=== PATIENT | male | born 1950 | race Caucasian/White ===

== ENCOUNTER 2022-09-07 16:33 | Outpatient (OUT) | payer MEDICARE, OTHER, SELFPAY ==
[2022-09-07 17:16] LABS: Hemoglobin 8.1 g/dL (14.0-18.0)
[2022-09-07 17:24] LABS: Creatinine Urine Random 58.97 mg/dL (20.00-300.00); Total Protein Urine Random 293.7 mg/dL (<=11.9)
[2022-09-07 17:59] LABS: Bilirubin Urine NEGATIVE (NEGATIVE); Blood Urine MODERATE (NEGATIVE); Clarity Urine CLEAR (CLEAR); Color Urine LT. YELLOW (YELLOW); Glucose Urine UA NEGATIVE (NEGATIVE); Ketones Urine NEGATIVE (NEGATIVE); Leukocyte Esterase Urine NEGATIVE (NEGATIVE); Nitrite Urine NEGATIVE (NEGATIVE); Protein Urine >=300 mg/dL (NEG/TRACE); Specific Gravity Urine 1.015 (1.005-1.025); Urobilinogen Urine 0.2 EU/dL (0.2-1.0); pH Urine 5.5 (5.0-9.0)
[2022-09-07 18:40] LABS: Percent Iron Saturation 22.4 %
[2022-09-07 19:27] LABS: Alanine Aminotransferase 25 U/L (16-63); Albumin Globulin Ratio 0.9; Albumin Level 2.9 g/dL (3.4-5.0); Alkaline Phosphatase 109 U/L (46-116); Anion Gap 13.1; Aspartate Amino Transferase 21 U/L (15-37); BUN Creatinine Ratio 19.5; Bilirubin Total 0.4 mg/dL (0.2-1.0); Carbon Dioxide 23.5 mmol/L (21.0-32.0); Chloride 108 mmol/L (98-107); Estimated GFR (African America 36 (>=60); Estimated GFR (Non-African Ame 29 (>=60); Globulin 3.1 g/dL; Glucose 74 mg/dL (74-106); Magnesium 1.8 mg/dL (1.8-2.4); Phosphorus 4.2 mg/dL (2.6-4.7); Potassium 4.6 mmol/L (3.5-5.1); Sodium 140 mmol/L (136-145); Uric Acid 6.3 mg/dL (3.5-7.2)
[2022-09-10 13:07] LABS: PTH, Intact 60 pg/mL (15-65)
== END 2022-09-07 16:34 ==
LOC: LAB 16:34
PROVIDERS: PCP Family Medicine; Visit Provider Internal Medicine Nephrology
DX: N18.32 Chronic kidney disease, stage 3b (principal); I12.9 Hypertensive chronic kidney disease with stage 1 through stage 4 chronic kidney disease, or unspecified chronic kidney disease; E11.22 Type 2 diabetes mellitus with diabetic chronic kidney disease; D63.1 Anemia in chronic kidney disease; E87.5 Hyperkalemia; E63.1 Imbalance of constituents of food intake; N25.81 Secondary hyperparathyroidism of renal origin; R80.9 Proteinuria, unspecified; R31.29 Other microscopic hematuria; E83.42 Hypomagnesemia
CPT/HCPCS: 36415; 80053; 81003; 82306; 82570; 82607; 82728; 82746; 83540; 83550; 83735; 83970; 84100; 84156; 84550; 85014; 85018

== ENCOUNTER 2022-09-28 16:00 | Outpatient (OUT) | payer MEDICARE, OTHER, SELFPAY ==
[2022-09-28 16:21] LABS: Hemoglobin 8.4 g/dL (14.0-18.0); Mean Corpuscular HGB Conc 33.6 g/dL (29.9-35.2); Mean Corpuscular Volume 92.3 fL (80.0-94.0); Mean Platelet Volume 8.5 fL (9.5-13.5); Platelet Count 215 10^3/uL (150-450); Red Blood Count 2.71 10^6/uL (4.70-6.10); Red Cell Distribution Width 14.3 % (11.0-15.0); White Blood Count 5.5 10^3/uL (4.0-11.0)
[2022-09-28 16:45] LABS: Albumin Level 2.9 g/dL (3.4-5.0); Anion Gap 11.7; BUN Creatinine Ratio 15.9; Calcium 8.4 mg/dL (8.5-10.1); Carbon Dioxide 26.2 mmol/L (21.0-32.0); Chloride 106 mmol/L (98-107); Estimated GFR (African America 32 (>=60); Estimated GFR (Non-African Ame 26 (>=60); Glucose 118 mg/dL (74-106); Magnesium 1.8 mg/dL (1.8-2.4); Phosphorus 4.6 mg/dL (2.6-4.7); Potassium 4.9 mmol/L (3.5-5.1); Sodium 139 mmol/L (136-145)
== END 2022-09-28 16:01 | disposition home or self-care (01) ==
LOC: LAB 10-02 12:41
PROVIDERS: PCP Family Medicine; Visit Provider Internal Medicine
DX: I12.9 Hypertensive chronic kidney disease with stage 1 through stage 4 chronic kidney disease, or unspecified chronic kidney disease (principal); N18.32 Chronic kidney disease, stage 3b; E11.22 Type 2 diabetes mellitus with diabetic chronic kidney disease; D63.1 Anemia in chronic kidney disease; E87.5 Hyperkalemia; N25.81 Secondary hyperparathyroidism of renal origin; R80.9 Proteinuria, unspecified; R31.29 Other microscopic hematuria; E83.42 Hypomagnesemia
CPT/HCPCS: 36415; 80069; 83735; 85027

== ENCOUNTER 2022-10-23 09:25 | Outpatient (OUT) | payer MEDICARE, OTHER, SELFPAY ==
[2022-10-23 09:49] LABS: Hematocrit 25.3 % (42.0-54.0); Hemoglobin 8.6 g/dL (14.0-18.0)
[2022-10-23 12:03] LABS: Albumin Level 3.4 g/dL (3.4-5.0); Anion Gap 14.8; BUN Creatinine Ratio 18.8; Calcium 8.7 mg/dL (8.5-10.1); Carbon Dioxide 23.1 mmol/L (21.0-32.0); Chloride 107 mmol/L (98-107); Estimated GFR (African America 35 (>=60); Estimated GFR (Non-African Ame 29 (>=60); Glucose 104 mg/dL (74-106); Magnesium 1.8 mg/dL (1.8-2.4); Phosphorus 4.7 mg/dL (2.6-4.7); Potassium 4.9 mmol/L (3.5-5.1); Sodium 140 mmol/L (136-145)
[2022-10-23 12:04] LABS: Percent Iron Saturation 23.6 %
== END 2022-10-23 09:26 | disposition home or self-care (01) ==
LOC: LAB 09:26
PROVIDERS: PCP Family Medicine; Visit Provider Internal Medicine
DX: I12.9 Hypertensive chronic kidney disease with stage 1 through stage 4 chronic kidney disease, or unspecified chronic kidney disease (principal); N18.32 Chronic kidney disease, stage 3b; E11.22 Type 2 diabetes mellitus with diabetic chronic kidney disease; D63.1 Anemia in chronic kidney disease; E87.5 Hyperkalemia; N25.81 Secondary hyperparathyroidism of renal origin; R80.9 Proteinuria, unspecified; R31.29 Other microscopic hematuria; E83.42 Hypomagnesemia
CPT/HCPCS: 36415; 80069; 82728; 83540; 83550; 83735; 85014; 85018

== ENCOUNTER 2022-10-30 09:28 | Outpatient (OUT) | payer MEDICARE, OTHER, SELFPAY ==
[2022-10-30 11:06] LABS: Alanine Aminotransferase 17 U/L (16-63); Albumin Globulin Ratio 0.9; Albumin Level 3.1 g/dL (3.4-5.0); Alkaline Phosphatase 134 U/L (46-116); Anion Gap 16.9; Aspartate Amino Transferase 19 U/L (15-37); BUN Creatinine Ratio 16.7; Bilirubin Total 0.4 mg/dL (0.2-1.0); Calcium 8.6 mg/dL (8.5-10.1); Carbon Dioxide 23.2 mmol/L (21.0-32.0); Chloride 106 mmol/L (98-107); Chol HDL Ratio 2.8; Cholesterol 92 mg/dL (<=200); Estimated GFR (African America 33 (>=60); Estimated GFR (Non-African Ame 28 (>=60); Globulin 3.6 g/dL; Glucose 91 mg/dL (74-106); HDL Cholesterol 33 mg/dL (40-60); Potassium 5.1 mmol/L (3.5-5.1); Sodium 141 mmol/L (136-145); Total Protein 6.7 g/dL (6.4-8.2); Triglycerides 75 mg/dL (<=150)
== END 2022-10-30 09:29 | disposition home or self-care (01) ==
LOC: LAB 09:28
PROVIDERS: PCP Family Medicine; Visit Provider Family Medicine
DX: I13.0 Hypertensive heart and chronic kidney disease with heart failure and stage 1 through stage 4 chronic kidney disease, or unspecified chronic kidney disease (principal); E11.22 Type 2 diabetes mellitus with diabetic chronic kidney disease; E78.2 Mixed hyperlipidemia
CPT/HCPCS: 36415; 80053; 80061; 83036

== ENCOUNTER 2022-11-13 13:54 | Outpatient (OUT) | payer MEDICARE, OTHER, SELFPAY ==
[2022-11-13 14:16] LABS: Hematocrit 24.1 % (42.0-54.0); Hemoglobin 8.2 g/dL (14.0-18.0); Mean Corpuscular Hemoglobin 30.6 pg (25.9-34.0); Mean Corpuscular Volume 89.9 fL (80.0-94.0); Mean Platelet Volume 8.8 fL (9.5-13.5); Platelet Count 210 10^3/uL (150-450); Red Blood Count 2.68 10^6/uL (4.70-6.10); Red Cell Distribution Width 13.7 % (11.0-15.0); White Blood Count 6.9 10^3/uL (4.0-11.0)
[2022-11-13 14:31] LABS: Albumin Level 3.4 g/dL (3.4-5.0); Anion Gap 13.2; BUN Creatinine Ratio 16.3; Calcium 8.2 mg/dL (8.5-10.1); Chloride 103 mmol/L (98-107); Estimated GFR (African America 28 (>=60); Estimated GFR (Non-African Ame 23 (>=60); Glucose 158 mg/dL (74-106); Phosphorus 5.1 mg/dL (2.6-4.7); Potassium 5.2 mmol/L (3.5-5.1); Sodium 136 mmol/L (136-145)
[2022-11-14 13:08] LABS: PTH, Intact 50 pg/mL (15-65)
== END 2022-11-13 13:55 | disposition home or self-care (01) ==
LOC: LAB 13:54
PROVIDERS: PCP Family Medicine; Visit Provider Internal Medicine
DX: E11.22 Type 2 diabetes mellitus with diabetic chronic kidney disease (principal); N18.4 Chronic kidney disease, stage 4 (severe); D63.1 Anemia in chronic kidney disease; I12.9 Hypertensive chronic kidney disease with stage 1 through stage 4 chronic kidney disease, or unspecified chronic kidney disease; E87.5 Hyperkalemia; N25.81 Secondary hyperparathyroidism of renal origin; R80.9 Proteinuria, unspecified; R31.29 Other microscopic hematuria; E83.42 Hypomagnesemia
CPT/HCPCS: 36415; 80069; 82306; 82607; 82746; 83735; 83970; 85027

== ENCOUNTER 2022-12-04 09:21 | Outpatient (OUT) | payer MEDICARE, OTHER, SELFPAY ==
[2022-12-04 09:41] LABS: Hematocrit 25.3 % (42.0-54.0); Hemoglobin 8.4 g/dL (14.0-18.0)
[2022-12-04 10:01] LABS: Albumin Level 3.3 g/dL (3.4-5.0); Anion Gap 13.6; Calcium 8.2 mg/dL (8.5-10.1); Carbon Dioxide 23.7 mmol/L (21.0-32.0); Chloride 107 mmol/L (98-107); Estimated GFR (African America 25 (>=60); Estimated GFR (Non-African Ame 21 (>=60); Glucose 76 mg/dL (74-106); Phosphorus 5.7 mg/dL (2.6-4.7); Potassium 5.3 mmol/L (3.5-5.1); Sodium 139 mmol/L (136-145)
== END 2022-12-04 09:22 | disposition home or self-care (01) ==
LOC: LAB 09:22
PROVIDERS: PCP Family Medicine; Visit Provider Internal Medicine
DX: N18.4 Chronic kidney disease, stage 4 (severe) (principal)
CPT/HCPCS: 36415; 80069; 85014; 85018

== ENCOUNTER 2022-12-21 09:41 | Outpatient (OUT) | payer MEDICARE, OTHER, SELFPAY ==
[2022-12-21 10:00] LABS: Hematocrit 27.4 % (42.0-54.0); Hemoglobin 9.1 g/dL (14.0-18.0); Mean Corpuscular HGB Conc 33.2 g/dL (29.9-35.2); Mean Corpuscular Hemoglobin 30.8 pg (25.9-34.0); Mean Corpuscular Volume 92.9 fL (80.0-94.0); Mean Platelet Volume 8.9 fL (9.5-13.5); Platelet Count 156 10^3/uL (150-450); Red Blood Count 2.95 10^6/uL (4.70-6.10); Red Cell Distribution Width 13.4 % (11.0-15.0); White Blood Count 6.3 10^3/uL (4.0-11.0)
[2022-12-21 11:00] LABS: Albumin Level 3.4 g/dL (3.4-5.0); Anion Gap 16.9; BUN Creatinine Ratio 21.4; Calcium 8.3 mg/dL (8.5-10.1); Carbon Dioxide 20.6 mmol/L (21.0-32.0); Chloride 111 mmol/L (98-107); Estimated GFR (African America 29 (>=60); Estimated GFR (Non-African Ame 24 (>=60); Glucose 84 mg/dL (74-106); Phosphorus 5.9 mg/dL (2.6-4.7); Potassium 5.5 mmol/L (3.5-5.1); Sodium 143 mmol/L (136-145)
[2022-12-22 07:08] LABS: Vitamin D, 25-Hydroxy 53.8 ng/mL (30.0-100.0)
[2022-12-22 11:08] LABS: PTH, Intact 34 pg/mL (15-65)
== END 2022-12-21 09:42 | disposition home or self-care (01) ==
LOC: LAB 09:41
PROVIDERS: PCP Family Medicine; Visit Provider Internal Medicine
DX: I12.9 Hypertensive chronic kidney disease with stage 1 through stage 4 chronic kidney disease, or unspecified chronic kidney disease (principal); N18.4 Chronic kidney disease, stage 4 (severe); D63.1 Anemia in chronic kidney disease; E11.22 Type 2 diabetes mellitus with diabetic chronic kidney disease; E87.5 Hyperkalemia; N25.81 Secondary hyperparathyroidism of renal origin; R80.9 Proteinuria, unspecified; R31.29 Other microscopic hematuria; E83.42 Hypomagnesemia
CPT/HCPCS: 36415; 80069; 82306; 83970; 85027

== ENCOUNTER 2023-01-16 09:17 | Outpatient (OUT) | payer MEDICARE, OTHER, SELFPAY ==
[2023-01-16 09:38] LABS: Hematocrit 27.3 % (42.0-54.0); Hemoglobin 8.9 g/dL (14.0-18.0); Mean Corpuscular HGB Conc 32.6 g/dL (29.9-35.2); Mean Corpuscular Hemoglobin 29.4 pg (25.9-34.0); Mean Corpuscular Volume 90.1 fL (80.0-94.0); Platelet Count 171 10^3/uL (150-450); Red Blood Count 3.03 10^6/uL (4.70-6.10); Red Cell Distribution Width 13.2 % (11.0-15.0); White Blood Count 10.5 10^3/uL (4.0-11.0)
[2023-01-16 09:54] LABS: Albumin Level 3.5 g/dL (3.4-5.0); Anion Gap 17.7; BUN Creatinine Ratio 24.4; Calcium 8.5 mg/dL (8.5-10.1); Carbon Dioxide 21.2 mmol/L (21.0-32.0); Chloride 106 mmol/L (98-107); Estimated GFR (African America 26 (>=60); Estimated GFR (Non-African Ame 21 (>=60); Glucose 174 mg/dL (74-106); Magnesium 1.9 mg/dL (1.8-2.4); Phosphorus 4.4 mg/dL (2.6-4.7); Potassium 4.9 mmol/L (3.5-5.1); Sodium 140 mmol/L (136-145)
== END 2023-01-16 09:18 | disposition home or self-care (01) ==
LOC: LAB 09:17
PROVIDERS: PCP Family Medicine; Visit Provider Internal Medicine
DX: E11.22 Type 2 diabetes mellitus with diabetic chronic kidney disease (principal); N18.4 Chronic kidney disease, stage 4 (severe); D63.1 Anemia in chronic kidney disease; I12.9 Hypertensive chronic kidney disease with stage 1 through stage 4 chronic kidney disease, or unspecified chronic kidney disease; E87.5 Hyperkalemia; N25.81 Secondary hyperparathyroidism of renal origin; R80.9 Proteinuria, unspecified; R31.29 Other microscopic hematuria; E83.42 Hypomagnesemia
CPT/HCPCS: 36415; 80069; 83735; 85027

== ENCOUNTER 2023-01-25 09:28 | Outpatient (OUT) | payer MEDICARE, OTHER, SELFPAY ==
[2023-01-25 10:01] LABS: Hematocrit 29.1 % (42.0-54.0); Hemoglobin 9.9 g/dL (14.0-18.0); Mean Corpuscular Hemoglobin 30.3 pg (25.9-34.0); Mean Platelet Volume 8.9 fL (9.5-13.5); Platelet Count 187 10^3/uL (150-450); Red Blood Count 3.27 10^6/uL (4.70-6.10); Red Cell Distribution Width 14.4 % (11.0-15.0); White Blood Count 8.3 10^3/uL (4.0-11.0)
== END 2023-01-25 09:29 | disposition home or self-care (01) ==
LOC: LAB 09:28
PROVIDERS: PCP Family Medicine; Visit Provider Internal Medicine
DX: N18.4 Chronic kidney disease, stage 4 (severe) (principal)
CPT/HCPCS: 36415; 85027

== ENCOUNTER 2023-02-11 09:19 | Outpatient (OUT) | payer MEDICARE, OTHER, SELFPAY ==
[2023-02-11 09:35] LABS: Hematocrit 33.9 % (42.0-54.0); Hemoglobin 11.2 g/dL (14.0-18.0); Mean Corpuscular Hemoglobin 29.7 pg (25.9-34.0); Mean Corpuscular Volume 89.9 fL (80.0-94.0); Mean Platelet Volume 8.3 fL (9.5-13.5); Platelet Count 187 10^3/uL (150-450); Red Blood Count 3.77 10^6/uL (4.70-6.10); White Blood Count 7.2 10^3/uL (4.0-11.0)
[2023-02-11 10:03] LABS: Albumin Level 3.2 g/dL (3.4-5.0); Anion Gap 11.5; BUN Creatinine Ratio 23.5; Calcium 8.3 mg/dL (8.5-10.1); Carbon Dioxide 28.2 mmol/L (21.0-32.0); Chloride 102 mmol/L (98-107); Estimated GFR (African America 28 (>=60); Estimated GFR (Non-African Ame 23 (>=60); Glucose 88 mg/dL (74-106); Phosphorus 4.5 mg/dL (2.6-4.7); Potassium 4.7 mmol/L (3.5-5.1); Sodium 137 mmol/L (136-145)
[2023-02-11 10:35] LABS: Percent Iron Saturation 21.8 %
== END 2023-02-11 09:20 | disposition home or self-care (01) ==
LOC: LAB 09:20
PROVIDERS: PCP Family Medicine; Visit Provider Internal Medicine
DX: I12.9 Hypertensive chronic kidney disease with stage 1 through stage 4 chronic kidney disease, or unspecified chronic kidney disease (principal); N18.4 Chronic kidney disease, stage 4 (severe); D63.1 Anemia in chronic kidney disease; E11.22 Type 2 diabetes mellitus with diabetic chronic kidney disease; E87.5 Hyperkalemia; N25.81 Secondary hyperparathyroidism of renal origin; R80.9 Proteinuria, unspecified; R31.29 Other microscopic hematuria; E83.42 Hypomagnesemia
CPT/HCPCS: 36415; 80069; 82728; 83540; 83550; 83735; 85027

== ENCOUNTER 2023-02-22 09:53 | Outpatient (OUT) | payer MEDICARE, OTHER, SELFPAY ==
[2023-02-22 10:09] LABS: Hematocrit 29.7 % (42.0-54.0); Hemoglobin 10.1 g/dL (14.0-18.0); Mean Corpuscular Hemoglobin 30.3 pg (25.9-34.0); Mean Corpuscular Volume 89.2 fL (80.0-94.0); Mean Platelet Volume 8.5 fL (9.5-13.5); Platelet Count 196 10^3/uL (150-450); Red Blood Count 3.33 10^6/uL (4.70-6.10); Red Cell Distribution Width 13.8 % (11.0-15.0); White Blood Count 6.7 10^3/uL (4.0-11.0)
== END 2023-02-22 09:54 | disposition home or self-care (01) ==
PROVIDERS: PCP Family Medicine; Visit Provider Internal Medicine
DX: D63.1 Anemia in chronic kidney disease (principal)
CPT/HCPCS: 36415; 85027

== ENCOUNTER 2023-03-23 09:41 | Outpatient (OUT) | payer MEDICARE, OTHER, SELFPAY ==
[2023-03-23 09:56] LABS: Hematocrit 28.9 % (42.0-54.0); Hemoglobin 9.4 g/dL (14.0-18.0); Mean Corpuscular HGB Conc 32.5 g/dL (29.9-35.2); Mean Corpuscular Hemoglobin 30.5 pg (25.9-34.0); Mean Corpuscular Volume 93.8 fL (80.0-94.0); Mean Platelet Volume 8.8 fL (9.5-13.5); Platelet Count 171 10^3/uL (150-450); Red Blood Count 3.08 10^6/uL (4.70-6.10); Red Cell Distribution Width 14.4 % (11.0-15.0); White Blood Count 7.2 10^3/uL (4.0-11.0)
[2023-03-23 10:24] LABS: Percent Iron Saturation 31.3 %
[2023-03-23 10:25] LABS: Albumin Level 3.3 g/dL (3.4-5.0); Anion Gap 14.3; BUN Creatinine Ratio 19.8; Calcium 8.3 mg/dL (8.5-10.1); Carbon Dioxide 27.5 mmol/L (21.0-32.0); Chloride 106 mmol/L (98-107); Estimated GFR (African America 30 (>=60); Estimated GFR (Non-African Ame 25 (>=60); Glucose 101 mg/dL (74-106); Phosphorus 4.4 mg/dL (2.6-4.7); Potassium 4.8 mmol/L (3.5-5.1); Sodium 143 mmol/L (136-145)
== END 2023-03-23 09:42 | disposition home or self-care (01) ==
LOC: LAB 09:42
PROVIDERS: PCP Family Medicine; Visit Provider Internal Medicine
DX: N18.4 Chronic kidney disease, stage 4 (severe) (principal); D63.1 Anemia in chronic kidney disease
CPT/HCPCS: 36415; 80069; 82728; 83540; 83550; 85027

== ENCOUNTER 2023-04-15 10:40 | Outpatient (OUT) | payer MEDICARE, OTHER, SELFPAY ==
[2023-04-15 10:55] LABS: Hematocrit 30.5 % (42.0-54.0); Hemoglobin 10.2 g/dL (14.0-18.0); Mean Corpuscular HGB Conc 33.4 g/dL (29.9-35.2); Mean Corpuscular Hemoglobin 31.5 pg (25.9-34.0); Mean Corpuscular Volume 94.1 fL (80.0-94.0); Mean Platelet Volume 8.7 fL (9.5-13.5); Platelet Count 171 10^3/uL (150-450); Red Blood Count 3.24 10^6/uL (4.70-6.10); Red Cell Distribution Width 14.4 % (11.0-15.0); White Blood Count 9.2 10^3/uL (4.0-11.0)
--- OUTSIDE RECORDS SUMMARY | 2023-04-15 10:55 | XMS_ITS | CCD ---
Author Name Unknown Address [address] [place] [address] Organization [facility] Care Team Providers Care Patient Service Technician Pst Name Role Phone UNKNOWN, PROVIDER Admitting Unavailable UNKNOWN, PROVIDER Attending Unavailable RUBEN LUO Referring Unavailable RUBEN LUO Primary Care Unavailable GABY ORTIZ Admitting Unavailable GABY ORTIZ Attending Unavailable RUBEN LUO Primary Care Unavailable OTILIA SANCHEZ Referring Unavailable NE Procedure Practitioner Unavailab le UNKNOWN, PROVIDER Surgeon Unavailable Ruben Luo MD Primary Care Provider [phone] Ney Roman Unavailable Oma Sewell Unavailable Orlando Beaver Unavailable MD Ruben Luo Primary Care Provider MD Orlando Beaver Attending Provider Ruben Luo MD Primary Care Provider Ruben Luo MD Primary Care Provider RUBEN LUO Primary Care Unavailable DYAN, OLUREMI A Consulting Unavailable RUBEN LUO Primary Care Unavailable UDO-INYANG, INYANG Admitting Unavailable UDO-INYANG, INYANG Attending Unavailable Mckay Motleyiz Unavailable OMA SEWELL Attending Unavailable DONATOAUGUSTOUL Admitting Unavailable HEMEDOUGIE ., DR WILCOX Primary Care Unavailable OMA SEWELL Consulting Unavailable NIRALIYER ., DR WILCOX Primary Care Unavailable HEMEYER ., DR WILCOX Attending Unavailable HEMEYER ., DR WILCOX Admitting Unavailable HEMEYER ., DR WILCOX Consulting Unavailable HEMEYER ., DR WILCOX Primary Care Unavailable HEMEYER ., DR WILCOX Attending Unavailable HEMEYER ., DR WILCOX Admitting Unavailable HEMEYER ., DR WILCOX Primary Care Unavailable DONATO, OMA Attending Unavailable DONATO, OMA Admitting Unavailable DONAOT, OMA Consulting Unavailable HEMEYER ., DR WILCOX Consulting Unavailable HEMEYER ., DR WILCOX Attending Unavailable HEMEYER ., DR WILCOX Admitting Unavailable HEMEYER ., DR WILCOX Primary Care Unavailable HEMEYER ., DR WILCOX Consulting Unavailable HEMEYER ., DR WILCOX Attending Unavailable HEMEYER ., DR WILCOX Primary Care Unavailable HEMEYER ., DR WILCOX Admitting Unavailable DONATO, OMA Attending Unavailable DONATO, OMA Admitting Unavailable HEMEYER ., DR WILCOX Primary Care Unavailable MOUKARBEL, DR FIERRO Consulting Unavailable DONATO, OMA Consulting Unavailable DONATO, OMA Consulting Unavailable HEMEYER ., DR WILCOX Primary Care Unavailable DONATO, OMA Admitting Unavailable DONATO, OMA Attending Unavailable HEMEYER ., DR WILCOX Primary Care Unavailable ZIEBER, DR MEMO Hanna Consulting Unavailable DONATO, OMA Attending Unavailable DONATO, OMA Admitting Unavailable DONATO, OMA Consulting Unavailable HEMEYER ., DR WILCOX Primary Care Unavailable HEMEYER ., DR WILCOX Consulting Unavailable HEMEYER ., DR WILCOX Attending Unavailable HEMEYER ., DR WILCOX Admitting Unavailable DONATO, OMA Consulting Unavailable DONATO, OMA Attending Unavailable DONATO, OMA Admitting Unavailable HEMEYER ., DR WILCOX Primary Care Unavailable HEMEYER ., DR WILCOX Consulting Unavailable HEMEYER ., DR WILCOX Attending Unavailable HEMEYER ., DR WILCOX Admmikal Unavailable HEMEYER ., DR WILCOX Primary Care Unavailable ZIEBER, DR MEMO Hanna Consulting Unavailable MOUKARBEL, DR FIERRO Consulting Unavailable DONATO, OMA Attending Unavailable HEMEYER ., DR WILCOX Primary Care Unavailable DONATO, OMA Admitting Unavailable DONATO, OMA Consulting Unavailable MISC, DR GOLDSTEIN Attending Unavailable MISC, DR GOLDSTEIN Admitting Unavailable HEMEYER ., DR WILCOX Primary Care Unavailable MISC, DR GOLDSTEIN Consulting Unavailable DIANE DUNCAN Consulting Unavailable DONATO, OMA Consulting Unavailable DONATO, OMA Attending Unavailable DONATO, OMA Admitting Unavailable HEMEYER ., DR WILCOX Primary Care Unavailable Dasia Flowers Unavailable [facility] [place] Referring Unavailable HEMEYER, RUBEN J Primary Care Unavailable UDO-INYANG, INYANG Attending Unavailable RUBEN LUO Primary Care Unavailable UDO-INYANG, INYANG Referring Unavailable UDO-INYANG, INYANG Referring Unavailable HEMERUBEN CONSTANTINO Primary Care Unavailable UDO-INYANG, INYANG Referring Unavailable HEMERUBEN CONSTANTINO Primary Care Unavailable TERRA, SHARON Referring Unavailable HEMEDOUGIE, RUBEN Porter Primary Care Unavailable TERRA, SHARON Referring Unavailable HEMERUBEN CONSTANTINO Primary Care Unavailable TERRA, SHARON Referring Unavailable HEMERUBEN CONSTANTINO Primary Care Unavailable UDO-INYANG, INYANG Referring Unavailable HEMERUBEN CONSTANTINO Primary Care Unavailable OSIEL ELAINE Referring Unavailable HEMERUBEN CONSTANTINO Primary Care Unavailable UDO-INYANG, INYANG Referring Unavailable RUBEN LUO Primary Care Unavailable Lupe TURPIN, Ruben Dill Primary Care Gabe Barnhart MD, Jr Attending Unavail able Lupe TURPIN, Ruben Dill Primary Care Gabe Barnhart MD, Jr Attending Unavail able Gabe Harris MD, Jr Admitting Unavail able Devon VÁSQUEZ, Lizette [place] Consulting Unavailab neville Bueno APRN-PERSONAL FINANCIAL COUNSELOR, Patricia Mujica Consulting Unavailable Lupe TURPIN, Ruben Dill [facility] Ky Roca MD, Domenic Perales Attending Unavaila IRA Wood Attending Unavailable VADIM VERONICA Attending Unavailable MD Ruben Luo Primary Care Provider MD Ney Roman Attending Provider Orlando Beaver Attending Unavailable Orlando Beaver Admitting Unavailable Ruben Luo Primary Care Unavailable Ney Roman Attending UnavailNey Gama Admitting Unavailabl Ruben Joyner Primary Care Unavailable Ney Roman Attending UnavailNey Gama Admitting Unavailabl e Ruben Luo Primary Care Unavailable Allergies Allergy Classification Reported Allergen(s) Allergy Type Date of Onset Reaction(s) Facility (20 sources) Angiotensin Converting Enzyme (Noelle) Inhibitors; Translations: [NOELLE INHIBITORS] Propensity to adverse reactions to drug 09-17-19 14 Other (See Comments) [employer] (20 sources) Acetaminophen / HYDROcodone Drug Allergy nausea vomiting [facility] [employer] [facility] Other (20 sources) Lisinopril; Translations: [lisinopril] Drug Allergy cough [place] [facility] [employer] Repository (3 sources) Codeine; Translations: [codeine] Drug Allergy 07-12-19 Nausea And Vomiting [facility] [employer] Phone: (2 sources) Sulfamethoxazole / Trimethoprim; Translations: [SULFAMETHOXAZOLE-T RIMETHOPRIM] Drug Allergy 07-12-19 23 Nausea And Vomiting [facility] [employer] Phone: (10 sources) Substance with sulfonamide structure and antibacterial mechanism of action (substance) Drug allergy stomach upset [facility] [employer] Other (2 sources) gabapentin; Translations: [gabapentin] Drug Allergy 07-06-19 23 [facility] Repository (1 source) Naproxen; Translations: [Aleve] Drug Allergy [facility] Repository (1 source) Sulfonamides (Antibiotic); Translations: [sulfa drugs] Propensity to adverse reactions to drug (disorder) [facility] Repository (1 source) Acetaminophen / HYDROcodone; Translations: [HYDROCODONE-ACETAM INOPHEN] Drug Allergy 05-15-19 22 [facility] Repository (1 source) amLODIPine; Translations: [AMLODIPINE] Drug Allergy 05-15-19 [facility] Repository (1 source) levoFLOXacin; Translations: [LEVOFLOXACIN] Drug Allergy 01-13-20 22 [facility] Repository (1 source) pregabalin; Translations: [PREGABALIN] Drug Allergy 07-06-19 [facility] Repository Medications Current Medications Medication Drug Class(es) Dates Sig (Normalized) Sig (Original) acetaminophen 325 mg oral tablet (8 sources) Start: 07-19-2022 acetaminophen (TYLENOL) tablet 650 mg take 2 tablets by mo uth every eight hours Acetaminophen ER 650 MG 2 tablets as nee ded Orally every 8 hrs Not-Taking take 2 tablets by mo uth every eight hours as needed Acetaminophen ER 650 MG 2 tablets as nee ded Orally every 8 hrs Active Acetaminophen / oxyCODONE (1 source) Opioid Agonist Start: 07-20-2022 oxyCODONE-acet aminophen (PERCOCET) 5-325 MG per tablet 1 tablet albuterol 0.83 mg/ml inhalation solution (20 sources) beta2-Adrenergi c Agonist Start: 07-21-2022 albuterol (PROVENTIL ) nebulizer solution 2.5 mg Start: 06-15-2015 take 2 puff(s) by in halation every four hours as needed Ventolin HFA 108 (90 Base) MCG/ACT 2 puffs as needed Inhalation every 4 hrs for 30 days Jun, Not-Taking Start: 04-04-2015 take 2 puff(s) by in halation every six hours as needed 2 puff, Inhalation, EVERY 6 HOURS PRN, Starting on Sat07/20/22 at 1712, Until Discontinued, Wheezing Initiate RT Bronchodilator Protocol: Yes - Inpatient Protocol Albuterol Sulfat e (2.5 MG/3ML) 0.083% 3 mL as needed Inhalation every 6 hrs Active Albuterol Sulfat e (2.5 MG/3ML) 0.083% 3 ml as needed Inhalation every 6 hrs Not-Taking Albuterol Sulfat e (2.5 MG/3ML) 0.083% 3 ml as needed Inhalation every 8 hrs for 90 days keep on file as refill Not-Taking amLODIPine 10 mg oral tablet (20 sources) Dihydropyridine Calcium Channel [place] Start: 05-04-2016 End: 07-21-2022 take 1 tablet by mouth every twenty-four hours amLODIPine Besylate 10 MG 1 tablet Orally Once a day Apr, Active Start: 05-04-2016 take 1 tablet by papito th every twenty-four hours amLODIPine Besylate 5 MG 1 tablet Orally Once a day Apr, Active take 2 tablets by mo uth once daily in the evening amLODIPine (NORVASC) 5 MG tablet Take 2 tablets by mouth every evening 0 Active Aspir-81 81 MG (20 sources) Aspir-81 81 MG 1 tablet Orally SATURDAY, SATURDAY AND SATURDAY Active take 1 tablet by mouth once yamilka y take 1 tablet by mouth once yamilka y Aspir-81 81 MG 1 tablet Orally Once a day *please review for potential _update for e-prescription and drug interaction check* Active aspirin 81 mg oral tablet (9 sources) Platelet Aggregation Inhibitor, Nonsteroidal Anti-inflammatory Drug Start: 04-16-2022 take 81 mg by mouth once daily Aspirin Active 81 MG PO Daily April 16, 2022 12:00am atorvastatin 40 mg oral tablet (20 sources) HMG-CoA Reductase Inhibitor Start: 04-16-2022 take 40 mg by mouth once daily Atorvastatin Active 40 MG PO Daily April 16, 2022 12:00am Biotin (4 sources) take 0.5 tablet by mouth once daily Biotin 10321 MCG 1/2 TABLET Orally Once a day Active take 1 tablet by mouth once yamilka y Biotin 45594 MCG 1 tablet Orally Once a day Active carvedilol 12.5 mg oral tablet (20 sources) alpha-Adrenergic Suleman, beta-Adrenergic Suleman Start: 07-25-2022 take 1 tablet by mouth twice daily at mealtime carvedilol (COREG) 12.5 MG tablet Take 1 tablet by mouth 2 times daily (with meals) 60 tablet 3 07/25/2022 Active Start: 07-19-2022 carvedilol (CO REG) tablet 12.5 mg Start: 04-16-2022 End: 07-25-2022 take 6.25 mg by mouth twice daily Carvedilol Active 6.25 MG PO Twice daily April 16, 2022 12:00am Start: 04-16-2022 End: 07-25-2022 take 3.125 mg by mouth twice daily Carvedilol Active 3.125 MG PO Twice daily April 16, 2022 12:00am cholecalciferol 0.05 mg oral tablet (20 sources) Vitamin D Start: 04-16-2022 take 1 tablet by mouth once daily Cholecalciferol (Vitamin D3) (Vitamin D3) 50 mcg (2,000 unit) Tablet Active 50 MCG PO Daily April 16, 2022 12:00am take 1 capsule by [facility] every twenty-four hours Vitamin D3 50 MCG (2000 UT) 1 capsule Orally Once a day Active End: 07-26-2022 take 2 tablets by mouth once daily Cholecalciferol (VITAMIN D3) 25 MCG (1000 UT) TABS Take 2 tablets by mouth daily 0 07/26/2022 Discontinued (Stop Taking at Discharge) Cholecalciferol (VITAMIN D3) 25 MCG (1000 UT) TABS Take by mouth 0 Active take 2 capsules by m outh every twenty-four hours Vitamin D3 25 MCG (1000 UT) 2 tablet Orally Once a day Active take 1 tablet by papito th every twenty-four hours Vitamin D3 50 MCG (2000 UT) 1 tablet Orally Once a day Active doxazosin 8 mg oral tablet (17 sources) alpha-Adrenergic Suleman Start: 07-27-2022 take 1 tablet by mouth once daily doxazosin (CARDURA) 8 MG tablet Take 1 tablet by mouth daily 30 tablet 3 07/27/2022 Active Start: 07-26-2022 doxazosin (CAR DURA) tablet 8 mg Start: 07-20-2022 End: 07-25-2022 doxazosin (CARDURA) tablet 4 mg Start: 04-16-2022 End: 07-26-2022 take 2 mg by mouth once daily Doxazosin Active 2 MG PO Daily April 16, 2022 12:00am epoetin michelle 42307 unt/ml injectable solution (20 sources) Erythropoiesis-stimulating Agent Procrit 78973 UNIT/ML as directed Injection every 4 weeks Active Procrit 02953 UN IT/ML as directed Injection every 4 weeks Active epoetin michelle (NE OCRIT) 94553 UNIT/ML injection Inject 1,000 Units into the skin once a week Unsure on dosage gets at dr Sewell office 0 Active ferrous bisglycinate 15 mg o ral tablet (1 source) Ferrous Bisglyci john Chelate 15 MG TABS Take 30 mg by mouth 0 Active Ferrous Bisglycinate Chelate 15 MG TABS (6 sources) Ferrous Bisglyci john Chelate 15 MG TABS Take 30 mg by mouth daily 0 Active Ferrous Bisglyci john Chelate 15 MG TABS Take 30 mg by mouth 0 Active fluticasone propionate 0.05 mg/actuat metered dose nasal spray (1 source) Corticosteroid Start: 12-21-2018 take 1 spray(s) nasal route twice daily Fluticasone Propionate 50 MCG/ACT 1 spray in each nostril Nasally bid for 30 day(s) Dec, Active furosemide 20 mg oral tablet (10 sources) Loop Diuretic Start: 09-10-2022 take 1 tablet by mouth every twenty-four hours Lasix 20 MG 1 tablet Orally Once a day for 90 days Sep, Active take 0.5 tablet by mouth once da richard Lasix 40 MG 1/2 tablet Orally Once a day Active take 1 tablet by papito th every twenty-four hours Lasix 40 MG 1 tablet Orally Once a day for 90 days Active glipiZIDE 5 mg oral tablet (20 sources) Sulfonylurea Start: 07-27-2022 take 1 tablet by mouth once daily before breakfast glipiZIDE (GLUCOTROL) 5 MG tablet Take 1 tablet by mouth every morning (before breakfast) 60 tablet 3 07/27/2022 Active Start: 07-25-2022 glipiZIDE (GLU COTROL) tablet 5 mg End: 07-26-2022 take 1 tablet by mouth twice daily before mealtime glipiZIDE (GLUCOTROL) 10 MG tablet Take 1 tablet by mouth 2 times daily (before meals) 0 07/26/2022 Discontinued (Stop Taking at Discharge) 1000 ml glucose 100 mg/ml injection (3 sources) Start: 07-19-2022 take 1 mL intravenously every hour IntraVENous, at 100 mL/hr, CONTINUOUS PRN, if blood glucose remains LESS THAN 70 mg/dL after 2 dextrose 10% intravenous boluses or administration of glucagon, Starting on [facility] 07/19/22 at 1757 If blood glucose fails to stabilize after 2 dextrose 10% intravenous boluses or glucagon administration, start dextrose 10% infusion at 100 mL/hour and repeat blood glucose at 30 and 60 minutes. If blood glucose is GREATER THAN 70 mg/dL after 60 minutes, discontinue dextrose 10% infusion. Start: 07-19-2022 dextrose bolus 10% 125 mL Start: 07-19-2022 16 g (4 tablet ), Oral, PRN, Starting on [facility] 07/19/22 at 1757, Until Discontinued, Low blood sugar If blood glucose is LESS THAN 70 mg/dL and patient is alert and tolerating oral. Give 4 tablets (16g) Repeat blood glucose in 15 minutes. If blood glucose is LESS THAN 70 mg/dL, repeat treatment and recheck blood glucose in 15 minutes x 2. If blood glucose remains LESS THAN 70 mg/dL, notify provider. insulin lispro 100 unt/ml injectable solution (3 sources) Insulin Analog Start: 07-19-2022 End: 07-24-2022 insulin lispro (HUMALOG) injection vial 0-4 Units Iron (11 sources) take 1 tablet by mouth twice daily Iron 30 MG 1 tablet Orally TWICE A DAY Active Iron 30 MG as di rected Orally Active Iron Chelate (13 sources) take 1 tablet by mouth once yamilka y take 1 tablet by mouth once yamilka y Iron Chelate 1 tablet orally daily Active take 1 tablet by mouth once yamilka y Iron Chelate 1 tablet orally daily *please review for potential _update for e-prescription and drug interaction check* Active losartan potassium 50 mg oral tablet (20 sources) Angiotensin 2 Receptor Suleman Start: 02-21-2018 take 50 mg by mouth once daily Losartan Active 50 MG PO Daily April 16, 2022 12:00am Start: 02-21-2018 take 0.5 tablet by m outh once daily Losartan Potassium 50 MG 1/2 tablet Orally Once a day Feb, Active End: 07-25-2022 losartan (COZAAR) 100 MG tab let losartan 100 mg tablet 0 07/25/2022 Discontinued (Stop Taking at Discharge) magnesium oxide 400 mg oral tablet (20 sources) Start: 12-14-2021 take 400 mg by mouth once daily Magnesium Oxide Active 400 MG PO Daily April 16, 2022 12:00am take 1 tablet by mouth once yamilka y Magnesium Oxide 400 MG CAPS Take 1 tablet by mouth daily 0 Active metFORMIN hydrochloride 500 mg oral tablet (20 sources) Biguanide Start: 04-16-2022 take 500 mg by mouth twice daily Metformin Active 500 MG PO Twice daily April 16, 2022 12:00am End: 07-25-2022 metFORMIN (GLUCOPHAGE) 850 M G tablet Take 500 mg by mouth 2 times daily (with meals) 0 07/25/2022 Discontinued (Stop Taking at Discharge) take 1 tablet by papito th twice daily at mealtime metFORMIN (GLUCOPHAGE) 850 MG tablet Take 850 mg by mouth 2 times daily (with meals). 0 Active take 1 tablet by papito th twice daily before breakfast metFORMIN HCl 1000 MG 1 tablet with a meal Orally twice a day - before breakfast and evening meals for 90 days please keep on file as refill Active metoprolol tartrate 50 mg oral tablet (6 sources) beta-Adrenergic Suleman take 1 tablet by mouth once daily metoprolol (LOPRESSOR) 50 MG tablet Take 50 mg by mouth daily. 0 Active 1 ml morphine sulfate 2 mg/ml cartridge (1 source) Opioid Agonist Start: 07-20-19 23 morphine (PF) injection 2 mg Multi For Him - (2 sources) Multi For Him - as directed Orally Active Multi-Vitamins (20 sources) Start: 02-11-20 12 take 1 tablet by mouth once daily at mealtime Multi-Vitamins take 1 tablet by oral route every day with food Oral Feb, Not-Taking Start: 02-11-2012 take 1 tablet by papito th once daily at mealtime Start: 02-11-2012 take 1 tablet by papito th once daily at mealtime Multi-Vitamins take 1 tablet by oral route every day with food Oral Feb, Active Start: 02-11-2012 take 1 tablet by papito th once daily at mealtime Multi-Vitamins take 1 tablet by oral route every day with food Oral *please review for potential _update for e-prescription and drug interaction check* Feb, Active Multiple Vitamins-Minerals (THERAPEUTIC MULTIVITAMIN-MINERALS) tablet (7 sources) take 1 tablet by mouth once daily Multiple Vitamins-Minerals (THERAPEUTIC MULTIVITAMIN-MINERALS) tablet Take 1 tablet by mouth daily 0 Active take 1 tablet by mouth once yamilka y Multiple Vitamins-Minerals (THERAPEUTIC MULTIVITAMIN-MINERALS) tablet Take 1 tablet by mouth daily. 0 Active Multivitamin preparation (2 sources) Start: 04-16-2022 take 1 tablet by mouth once daily Multivitamin Active 1 TAB PO Daily April 16, 2022 12:00am Nitro Sublingual 0.4 0.4mg (2 sources) Nitro Sublingual 0.4 0.4mg 1 Sublingual Every 5min x3 Active ondansetron (ZOFRAN-ODT) disintegrating tablet 4 mg (1 source) Start: 07-20-2022 ondansetron (ZOFRAN-ODT) disintegrating tablet 4 mg Probiotic Product (PROBIOTIC DAILY PO) (7 sources) Probiotic Produc t (PROBIOTIC DAILY PO) Take by mouth daily. 0 Active traMADol hydrochloride 50 mg oral tablet (2 sources) Opioid Agonist Start: 07-23-2022 End: 08-02-2022 take 1 tablet by mouth every six hours as needed for pain traMADol (ULTRAM) 50 MG tablet Indications: Lumbar stenosis with neurogenic claudication Take 1 tablet by mouth every 6 hours as needed for Pain for up to 7 days. Max Daily Amount: 200 mg 28 tablet 0 07/26/2022 08/02/2022 Active vitamin B12 (17 sources) Vitamin B12 Vitamin B12 3000 MCG as directed Sublingual Active take 1 tablet by mouth once yamilka y Cyanocobalamin 500 MCG 1 tablet Orally Once a day Active take 1 tablet by mouth once yamilka y Cyanocobalamin (VITAMIN B 12) 500 MCG TABS Take 1 tablet by mouth daily 0 Active Cyanocobalamin ( VITAMIN B 12) 500 MCG TABS Take by mouth 0 Active Vitamin B12 100 MCG (14 sources) take 0.5 tablet by m outh once daily Vitamin B12 100 MCG 1/2 TABLET Orally Once a day 500 MCG ONCE A DAY Active take 0.5 tablet by mouth once da richard Vitamin B12 100 MCG 1/2 TABLET Orally Once a day Active Vitamin B12 100 MCG as directed Orally Active Vitamin D3 25 MCG (1000 UT) (9 sources) take 2 tablets by mouth once jane ly take 2 tablets by mouth once jane ly Vitamin D3 25 MCG (1000 UT) 2 tablet Orally Once a day Active take 1 tablet by mouth once yamilka y Vitamin D3 25 MCG (1000 UT) 1 tablet Orally Once a day Active Completed/Discontinued Medications Medication Drug Class(es) Dates Sig (Normalized) Sig (Original) alogliptin 6.25 mg oral tablet (2 sources) Start: 07-24-2022 End: 07-26-2022 take 1 tablet by mouth once daily alogliptin (NESINA) 6.25 MG TABS tablet Take 1 tablet by mouth daily 120 tablet 1 07/26/2022 07/26/2022 Discontinued (Stop Taking at Discharge) bisacodyl 5 mg delayed release oral tablet (2 sources) Stimulant Laxative Start: 07-21-2022 take 5 mg by mouth once daily 5 mg, Oral, DAILY, First dose on Sat07/21/22 at 0900, Until Discontinued Do not crush or break. Post-op Start: 07-20-2022 take 10 mg rectal ro danial once daily as needed 10 mg, Rectal, DAILY PRN, Starting on Sat07/20/22 at 1712, Until Discontinued, Constipation First line therapy for constipation Post-op ceFAZolin (ANCEF) 2000 mg in 0.9% sodium chloride 50 mL IVPB (1 source) Start: 07-20-2022 End: 07-21-2022 2,000 mg, IntraVENous, EVERY 8 HOURS, 2 doses, First dose on Sat07/20/22 at 1930, Last dose on Sat07/21/22 at 0330 Antimicrobial Indications: Surgical Prophylaxis Post-op cefuroxime 500 mg oral tablet (7 sources) Cephalosporin Antibacterial End: 07-26-2022 take 1 tablet by mouth twice daily cefUROXime (CEFTIN) 500 MG tablet Take 1 tablet by mouth 2 times daily 0 07/26/2022 Discontinued (Stop Taking at Discharge) Compressor Nebulizer 1 (1 source) Start: 08-24-2015 Compressor Nebulizer 1 as directed Inhaled every 4-6 hours as needed for 30 days *please review for potential _update for e-prescription and drug interaction check* August, Not-Taking cyclobenzaprine hydrochloride 10 mg oral tablet (1 source) Muscle Relaxant Start: 07-19-2022 End: 07-23-2022 cyclobenzaprine (FLEXERIL) tablet 10 mg dexamethasone phosphate 4 mg/ml injectable solution (1 source) Corticosteroid Start: 07-23-2022 End: 07-25-2022 Dexamethasone Sodium Phosphate injection 8 mg DHEA 25 MG (1 source) take 1 tablet under the tongue twice daily DHEA 25 MG 1 tablet sublingual two times daily Not-Taking docusate sodium 50 mg / sennosides, senior living 8.6 mg oral tablet (1 source) Start: 07-20-2022 take 1 tablet by mouth twice daily 1 tablet, Oral, 2 TIMES DAILY, First dose on Sat07/20/22 at 2100, Until Discontinued, Post-op doxycycline hyclate 100 mg oral capsule (20 sources) Tetracycline-class Drug Start: 12-02-2018 take 1 capsule by mouth every twenty-four hours Doxycycline Hyclate 100 MG 1 capsule Orally as needed Once a day for 90 days for Rosacae Nov, Not-Taking Doxycycline Hycl ate 100 MG 1 tablet Orally prn Active take 1 capsule by [facility] twice daily as needed doxycycline hyclate (VIBRAMYCIN) 100 MG capsule Take 1 capsule by mouth 2 times daily As needed for rosacea 0 Active ferrous sulfate 325 mg oral tablet (4 sources) Start: 07-25-2022 End: 07-25-2022 take 1 tablet by mouth twice daily at mealtime ferrous sulfate (IRON 325) 325 (65 Fe) MG tablet Take 1 tablet by mouth 2 times daily (with meals) 30 tablet 3 07/25/2022 07/25/2022 Discontinued (Stop Taking at Discharge) Start: 07-22-2022 ferrous sulfat e (IRON 325) tablet 325 mg Start: 04-16-2022 take 27 mg by mouth once daily Ferrous Sulfate Active 27 MG PO Daily April 16, 2022 12:00am fexofenadine hydrochloride 180 mg oral tablet (7 sources) Histamine-1 Receptor Antagonist Start: 09-12-2017 take 1 tablet by mouth every twenty-four hours Fexofenadine HCl 180 MG 1 tablet as needed Orally Once a day PRN Sep, Not-Taking glucagon (rdna) 1 mg injection (1 source) Antihypoglycemic Agent Start: 07-19-2022 inject 1 mg by subcutaneous injection every hour as needed 1 mg, SubCUTAneous, PRN, Starting on [facility] 07/19/22 at 1757, Until Discontinued, Low blood sugar, Blood glucose LESS THAN 70 mg/dL and patient NOT ALERT or NPO and does not have IV access. After administration, attempt intravenous access and start dextrose 10% at 100 mL/hr. Repeat blood glucose in 15 minutes x 2 and notify provider. 1 ml hydrALAZINE hydrochloride 20 mg/ml injection (2 sources) Arteriolar Vasodilator Start: 07-19-2022 End: 07-19-2022 hydrALAZINE (APRESOLINE) injection 10 mg Start: 07-19-2022 hydrALAZINE (A PRESOLINE) injection 10 mg 1 ml LORazepam 2 mg/ml injection (1 source) Benzodiazepine Start: 07-23-2022 End: 07-23-2022 LORazepam (ATIVAN) injection 0.25 mg Magnesium (1 source) End: 07-25-2022 take 1 capsule by mouth once daily Magnesium 400 MG CAPS Take 400 mg by mouth daily 0 07/25/2022 Discontinued (Stop Taking at Discharge) meloxicam 15 mg oral tablet (8 sources) Nonsteroidal Anti-inflammatory Drug End: 07-19-2022 take 1 tablet by mouth once daily as needed for pain meloxicam (MOBIC) 15 MG tablet Take 15 mg by mouth daily as needed for Pain. 0 07/19/2022 Discontinued methylPREDNISolone (20 sources) Corticosteroid Start: 08-24-2015 Depo-Medrol 80 mg August, 120 mg montelukast 10 mg oral tablet (1 source) Leukotriene Receptor Antagonist take 1 tablet by mouth every twenty-four hours Singulair 10 MG 1 tablet Orally Once a day for 30 day(s) Not-Taking Nitro Sublingual 0.4 (20 sources) Nitro Sublingual 0.4 Not-Taking Nitro Sublingual 0.4 Active nitroglycerin 0.4 mg sublingual tablet (2 sources) Nitrate Vasodilator Start: 07-19-2022 0.4 mg, SubLINGual, EVERY 5 MIN PRN, Starting on Billie 07/19/22 at 1759, Until Discontinued, Chest pain Place 1 tablet under tongue upon chest pain, wait 5 minutes and may repeat up to 3 doses in 15 minutes. Do not crush or break. polyethylene glycol 3350 [id number] mg powder for oral solution (1 source) Osmotic Laxative Start: 07-21-2022 17 g, Oral, DAILY, First dose on 07/21/22 at 0900, Until Discontinued Stir and dissolve one packet of powder (17 g) in any 4 to 8 ounces of beverage (cold, hot or room temperature) then drink Post-op predniSONE 10 mg oral tablet (4 sources) predniSONE 10 MG 1 tablet Orally 5 TABLETS X2 DAYS, 4 TABLETS X2 DAYS, 3 TABLETS X2 DAYS, 2 TABLETS X2DAYS, 1 TABLET X2DAYS, 1/2 TABLET X2DAYS Not-Taking pregabalin 75 mg oral capsule (4 sources) take 1 capsule by mouth every twelve hours Pregabalin 75 MG 1 capsule Orally Twice a day Not-Taking PROCRIT INJECTION - 1000 units (20 sources) Start: 03-26-2023 PROCRIT INJECTION - 1000 units Mar, 1000 mL Start: 02-25-2023 PROCRIT INJECT ION - 1000 units Feb, 1000 mL Start: 01-29-2023 PROCRIT INJECT ION - 1000 units Jan, 1000 mg Start: 01-17-2023 PROCRIT INJECT ION - 1000 units Jan, 1000 mL Start: 12-24-2022 PROCRIT INJECT ION - 1000 units Dec, 1000 mL Start: 12-06-2022 PROCRIT INJECT ION - 1000 units Nov, 1000 mL Start: 11-15-2022 PROCRIT INJECT ION - 1000 units Nov, 1000 mL Start: 10-25-2022 PROCRIT INJECT ION - 1000 units Oct, 1000 mL Start: 10-02-2022 PROCRIT INJECT ION - 1000 units Sep, 1000 mL Start: 09-10-2022 PROCRIT INJECT ION - 1000 units Sep, 1000 mL Start: 08-14-2022 PROCRIT INJECT ION - 1000 units August, 1000 mL Start: 07-17-2022 PROCRIT INJECT ION - 1000 units Jul, 1000 units Start: 07-17-2022 PROCRIT INJECT ION - 1000 units Jul, 1000 U Start: 06-21-2022 PROCRIT INJECT ION - 1000 units Jun, 1000 mL Start: 05-10-2022 PROCRIT INJECT ION - 1000 units May, 1000 mL Start: 12-14-2021 PROCRIT INJECT ION - 1000 units Dec, 1000 units Start: 12-14-2021 PROCRIT INJECT ION - 1000 units Dec, 1000 U sildenafil 100 mg oral tablet (11 sources) Phosphodiesterase 5 Inhibitor take 1 tablet by mouth once daily as needed Viagra 100 MG 1 tablet as needed Orally prn Once a day Not-Taking 1000 ml sodium chloride 9 mg/ml injection (7 sources) Start: 023 take 1 dose intravenously twice daily 5-40 mL, IntraVENous, EVERY 12 HOURS SCHEDULED (2 times per day), First dose on Sat07/20/22 at 2100, Until Discontinued For Line Patency: Peripheral IV = 5 mL; Midline or Central Line = 10 mL/lumen.&nbsp ; If following IV push medication, administer flush at same rate as the IV push. Flush volume is determined by type of infusion therapy being given. For non-viscous solutions use: Peripher al IV = 5 mL Midline or Central Line = 10 mL/lumen &nbs p;For viscous solutions (i.e. blood components, parenteral nutrition, contrast media, or after obtaining blood sample) use: Peripher al IV = 10 mL Midline or Central Line = 20 mL/lumen Post-op Start: 07-20-2022 IntraVENous, a t 5-250 mL/hr, PRN, if patient receiving piggyback infusions and maintenance fluids are not ordered OR KVO fluids to protect IV site / prevent frequent line interruptions/ long duration, Starting on Sat07/20/22 at 1712 For piggyback infusion, administer at same rate as piggyback for a total of 25 mL. Enter 25 mL into dose field and piggyback rate into rate field of order. If piggyback is infusing at a rate less than 100 mL/hr, enter 25 mL into dose field and 100 mL/hr into rate field of order. For KVO fluids, enter rate of 20 mL/hr or less into rate field of order. Post-op Start: 07-20-2022 take 5-40 mL intrave nously once as needed 5-40 mL, IntraVENous, PRN, Starting on Sat07/20/22 at 1712, Until Discontinued, Line Care, After every IV line use For Line Patency: Peripheral IV = 5 mL; Midline or Central Line = 10 mL/lumen. If following IV push medication, administer flush at same rate as the IV push. Flush volume is determined by type of infusion therapy being given. For non-viscous solutions use: Peripheral IV = 5 mL Midline or Central Line = 10 mL/lumen For viscous solutions (i.e. blood components, parenteral nutrition, contrast media, or after obtaining blood sample) use: Peripheral IV = 10 mL Midline or Central Line = 20 mL/lumen Post-op Start: 07-20-2022 End: 07-20-2022 sodium chloride flush 0.9 % injection 5-40 mL Start: 07-19-2022 End: 07-25-2022 IntraVENous, at 100 mL/hr, CONTINUOUS, Starting on Sat07/20/22 at 1730, Post-op sodium phosphate, dibasic 35 .5 mg/ml / sodium phosphate, monobasic 96.4 mg/ml enema (1 source) Start: 07-20-2022 1 enema, Recta l, DAILY PRN, Starting on Sat07/20/22 at 1712, Until Discontinued, Constipation Second line therapy for constipation, After 24 hours, if no result from first line PRN therapy, give second line therapy in combination with first line therapy. Post-op [place] [address] mg powder for oral suspension (2 sources) Start: 07-25-2022 End: 07-25-2022 sodium zirconium cyclosilica te (LOKELMA) oral suspension 10 g Start: 07-24-2022 End: 07-24-2022 sodium zirconium cyclosilica te (LOKELMA) oral suspension 10 g tetracycline hydrochloride 500 mg oral capsule (7 sources) Tetracycline-class Antimicrobial End: 07-26-2022 take 1 capsule by mouth twice daily as needed tetracycline (ACHROMYCIN;SUMYCIN) 500 MG capsule Take 1 capsule by mouth 2 times daily as needed (for Rosacea) 0 07/26/2022 Discontinued (Stop Taking at Discharge) Problems Active Problems Problem Classification Problem Date Documented Date Episodic/Chronic Acute myocardial infarction (20 sources) Acute non-ST segment elevation myocardial infarction; Translations: [Non-ST elevation (NSTEMI) myocardial infarction] Chronic Acute posthemorrhagic anemia (2 sources) Acute posthemorrhagic anemia; Translations: [Acute posthemorrhagic anemia] Onset: 3 Episodic Anxiety disorders (20 sources) Claustrophobia; Translations: [Claustrophobia] Chronic Asthma (20 sources) Exacerbation of moderate persistent asthma; Translations: [Moderate persistent asthma with (acute) exacerbation] Onset: 3 Chronic Calculus of urinary tract (20 sources) Kidney stone; Translations: [Calculus of kidney] Episodic Chronic kidney disease (20 sources) Chronic kidney disease stage 3B ; Translations: [Chronic kidney disease, stage 3b] Onset: 3 Chronic Chronic kidney disease (19 sources) Chronic kidney disease; Translations: [Chronic kidney disease, stage 3b] Onset: 2 Resolved: 2 Coronary atherosclerosis and other heart disease (20 sources) Coronary arteriosclerosis in [place] artery; Translations: [Atherosclerotic heart disease of [place] coronary artery without angina pectoris] Onset: 2 Chronic Coronary atherosclerosis and other heart disease (20 sources) Stented coronary artery; Translations: [Presence of coronary angioplasty implant and graft] Onset: 2 Episodic Deficiency and other anemia (20 sources) Anemia of renal disease; Translations: [Anemia in chronic kidney disease] Chronic Deficiency and other anemia (18 sources) Anemia in chronic kidney disease; Translations: [ANEMIA IN CHRONIC KIDNEY DISEASE] Onset: 2 Resolved: 2 Chronic Diabetes mellitus with complications (20 sources) Type 2 diabetes mellitus; Translations: [Type 2 diabetes mellitus with other diabetic kidney complication] Onset: 2 Resolved: 2 Chronic Diabetes mellitus without complication (2 sources) Type 2 diabetes mellitus without complications; Translations: [Type 2 diabetes mellitus without complications] Onset: 3 Chronic Disorders of lipid metabolism (20 sources) Mixed hyperlipidemia; Translations: [Mixed hyperlipidemia] Onset: 2 Chronic Esophageal disorders (20 sources) Gastroesophageal reflux disease without esophagitis; Translations: [Gastro-esophageal reflux disease without esophagitis] Chronic Essential hypertension (20 sources) Benign essential hypertension; Translations: [Essential (primary) hypertension] Onset: 3 Chronic Fluid and electrolyte disorders (16 sources) Hyperkalemia; Translations: [Acidosis] Onset: 2 Resolved: 2 Episodic Genitourinary symptoms and ill-defined conditions (20 sources) Proteinuria, unspecified; Translations: [Other microscopic hematuria] Onset: 2 Resolved: 2 Episodic Hyperplasia of prostate (20 sources) Large prostate ; Translations: [Benign prostatic hypertrophy with outflow obstruction] Onset: 0 Chronic Hypertension with complications and secondary hypertension (20 sources) Chronic kidney disease due to hypertension; Translations: [Hypertensive chronic kidney disease with stage 1 through stage 4 chronic kidney disease, or unspecified chronic kidney disease] Onset: 2 Resolved: 2 Chronic Immunizations and screening for infectious disease (3 sources) Carrier or suspected carrier of Methicillin resistant Staphylococcus aureus; Translations: [RODRIGUEZ/SPCT METHICIL RESIST STAPH AUR] Onset: 3 Episodic Malaise and fatigue (20 sources) Fatigue; Translations: [Chronic fatigue, unspecified] Chronic Occlusion or stenosis of precerebral arteries (20 sources) Carotid artery stenosis; Translations: [Occlusion and stenosis of bilateral carotid arteries] Onset: 6 Resolved: 2 Chronic Other acquired deformities (20 sources) Lumbar spondylolisthesis; Translations: [Spondylolisthesis, lumbar region] Episodic Other acquired deformities (1 source) Spondylolisthesis, lumbosacral region; Translations: [SPONDYLOLISTHESIS LUMBOSACRAL RGN] Onset: 3 Episodic Other aftercare (4 sources) Encounter for follow-up examination after completed treatment for conditions other than malignant neoplasm; Translations: [ENC F/U EX AFTR CMPL TX NOT MAL JOHN] Onset: 3 Episodic Other aftercare (3 sources) penitentiary (current) use of aspirin; Translations: [SADDLE [employer]ER CURRENT USE OF ASPIRIN] Onset: 3 Episodic Other and ill-defined heart disease (20 sources) Diastolic dysfunction; Translations: [Heart disease, unspecified] Chronic Other and ill-defined heart disease (20 sources) Right atrial enlargement; Translations: [Cardiomegaly] Chronic Other and ill-defined heart disease (20 sources) Left atrial enlargement; Translations: [Cardiomegaly] Chronic Other and ill-defined heart disease (1 source) Heart disease, unspecified; Translations: [HEART DISEASE UNSPECIFIED] Onset: 3 Chronic Other and ill-defined heart disease (1 source) Cardiomegaly; Translations: [CARDIOMEGALY] Onset: 3 Chronic Other and unspecified benign neoplasm (20 sources) History of polyp of colon; Translations: [Personal history of colonic polyps] Episodic Other and unspecified benign neoplasm (1 source) Personal history of colonic polyps Episodic Other bone disease and musculoskeletal deformities (1 source) Osteopenia; Translations: [Other specified disorders of bone density and structure, other site] Episodic Other diseases of kidney and ureters (20 sources) Secondary hyperparathyroidism; Translations: [Secondary hyperparathyroidism of renal origin] Chronic Other diseases of kidney and ureters (15 sources) Secondary hyperparathyroidism of renal origin; Translations: [SEC HYPERPARATHYROIDISM RENAL ORIGN] Onset: 2 Resolved: 2 Chronic Other inflammatory condition of skin (20 sources) Rosacea; Translations: [Rosacea, unspecified] Chronic Other lower respiratory disease (20 sources) Restrictive lung disease; Translations: [Other disorders of lung] Episodic Other male genital disorders (1 source) Impotence Chronic Other nervous system disorders (1 source) Disease of spinal cord, unspecified; Translations: [Disease of spinal cord, unspecified] Onset: 3 Chronic Other non-traumatic joint disorders (20 sources) Multiple joint pain; Translations: [Pain in unspecified joint] Episodic Other nutritional; endocrine; and metabolic disorders (20 sources) Obesity; Translations: [Obesity, unspecified] Chronic Other nutritional; endocrine; and metabolic disorders (13 sources) Hypomagnesemia; Translations: [Hypomagnesemia] Chronic Other nutritional; endocrine; and metabolic disorders (10 sources) Hypomagnesemia; Translations: [HYPOMAGNESEMIA] Onset: 3 Chronic Residual codes; unclassified (20 sources) Obstructive sleep apnea syndrome; Translations: [Obstructive sleep apnea (adult) (pediatric)] Chronic Residual codes; unclassified (2 sources) Other specified postprocedural states Episodic Screening and history of mental health and substance abuse codes (20 sources) Stopped smoking; Translations: [Personal history of nicotine dependence] Episodic Spondylosis; intervertebral disc disorders; other back problems (20 sources) Disorder of joint of spine; Translations: [Other spondylosis with radiculopathy, lumbar region] Onset: 3 Chronic Spondylosis; intervertebral disc disorders; other back problems (20 sources) Spinal stenosis; Translations: [Spinal stenosis, site unspecified] Onset: 3 Episodic Unclassified (2 sources) Rectum finding Onset: 0 Unclassified (3 sources) CONTACT W/AND (SUSP) EXPOS COVID-19; Translations: [CONTACT W/AND (SUSP) EXPOS COVID-19] Onset: 2 Unclassified (1 source) COUGH, UNSPECIFIED; Translations: [COUGH, UNSPECIFIED] Onset: 2 Unclassified (1 source) Occlusion and stenosis of bilateral carotid arteries; Translations: [Occlusion and stenosis of bilateral carotid arteries] Onset: 3 Unclassified (1 source) Encounter for screening for malignant neoplasm of colon; Translations: [Encounter for screening for malignant neoplasm of colon] Onset: 3 Past or Other Problems Problem Classification Problem Date Documented Da te Episodic/Chronic Acquired foot deformities (3 sources) Right foot drop; Translations: [Foot drop, right foot] Onset: 05-30-2022 Episodic Other bone disease and musculoskeletal deformities (1 source) Other specified disorders of bone density and structure, other site; Translations: [Other specified disorders of bone density and structure, other site] Onset: 05-30-2022 Episodic Other lower respiratory disease (1 source) Other specified respiratory disorders; Translations: [OTHER SPEC RESPIRATORY DISORDERS] Onset: 12-28-2021 Episodic Other screening for suspected conditions (not mental disorders or infectious disease) (4 sources) Encounter for screening, unspecified; Translations: [ENCOUNTER FOR SCREENING UNSPECIFIED] Onset: 10-07-2021 Episodic Other upper respiratory infections (1 source) Acute pharyngitis, unspecified; Translations: [ACUTE PHARYNGITIS UNSPECIFIED] Onset: 12-28-2021 Episodic Residual codes; unclassified (6 sources) Rectum finding; Translations: [Other general symptoms and signs] Onset: 04-22-2019 04-22-2019 Episodic Residual codes; unclassified (1 source) Pain, unspecified; Translations: [PAIN UNSPECIFIED] Onset: 12-28-2021 Episodic Unclassified (1 source) CONTACT W/AND (SUSP) EXPOS COVID-19; Translations: [CONTACT W/AND (SUSP) EXPOS COVID-19] Onset: 12-27-2021 Results Test Name Value Interpretation Reference Range Facility US carotid doppler BIon 12- US carotid doppler BI [facility] [place] [address] Ultrasound Report Signed Patient: Omer Santos MR#: [id number] 7 : 1950 Acct:[id number] Age/Sex: 72 / M ADM Date: 03/20/23 Loc: [facility] Room: Type: [facility] Attending Dr: Ney Roman MD Ordering Provider: Ney Roman MD Date of Service: 03/20/23 US/US carotid doppler BI: I65.23 Copies to: Ney Roman MD CAROTID DUPLEX INDICATION: Surveillance study after prior right carotid surgery. PROCEDURE: Color-flow duplex scanning is used to interrogate the extracranial carotid arterial system, as well as both vertebral arteries. Both carotid bifurcations show mild to moderate heterogeneous plaque formation. The proximal right internal carotid artery shows a highest peak systolic velocity of 94.9 cm/s with an end-diastolic velocity of 28.5 cm/s . The mid internal carotid artery measures 77.4 cm/s peak systolic and 12.6 cm/s end diastolic. The distal segment measures 112 cm/s peak systolic with an end diastolic velocity of 29.1 cm/s . The velocities of the right common carotid artery are 68.3 cm/s peak systolic and 19.7 cm/s end-diastolic proximally and 38.4 cm/s peak systolic and 11 cm/s end diastolic distally. The peak systolic velocity ratio of the internal to the common carotid artery is 2.47. The right vertebral artery is patent at 86 cm/s with antegrade flow. The proximal left internal carotid artery shows a highest peak systolic velocity of 270 cm/s with an end-diastolic velocity of 48.6 cm/s . The mid internal carotid artery measures 259 cm/s peak systolic and 51.7 cm/s end diastolic. The distal segment measures 174 cm/s peak systolic with an end diastolic velocity of 52 cm/s . The velocities of the left common carotid artery are 105 cm/s peak systolic and 23.6 cm/s end-diastolic proximally and 112 cm/s peak systolic and 23.5 cm/s end diastolic distally. The peak systolic velocity ratio of the internal to the common carotid artery is 2.41 . The left external carotid artery measures 296 cm/s peak systolic. The left vertebral artery is patent at 161 cm/s with antegrade flow. US/US carotid doppler BI IMPRESSION: MILD TO MODERATE PLAQUE FORMATION IS NOTED BILATERAL EXTRACRANIAL CAROTID ARTERIES. MODERATE STENOSIS OF 50-69% WAS FOUND IN THE LEFT INTERNAL CAROTID ARTERIES. The right carotid system was normal. Impression dictated by: Ney Roman MD03/20/2023 11:06 AM Dictation Location: [place] [address] Tech: Malini Mosley Transcribed By: SENDY 03/20/23 1106 Dictated By: Ney Roman MD 03/20/23 1105 Signed By: 03/20/23 1106 [facility] Office Visiton 02-20-2023 Follow-up visit [id number] Omer Santos 1950 M Date Provider Department Center 02/20/2023 VADIM SANTOS [facility] Family History Problem Relation Age of Onset Coronary artery disease Father Other Father Heart attack Father Coronary artery disease Brother Heart attack Brother Other Brother Heart attack Paternal Grandfather Family Status - Relation Status Age at Father Brother Paternal Grandfather Level of Service:81809 NE OFFICE/OUTPATIENT ESTABLISHED MOD MDM 30-39 MIN Reason for Visit and Comments: Follow-up [570361] - 6 months Normal [facility] .eGFRon 02-01-2023 Estimated GFR 24 mL/min/1.73m? Low >=60 [facility] Comment on above: Result Comment: [facility] have implemented the eGFR calculation approach that does not have a coefficient for race and that conforms to the NKF-ASN Task Force Recommendations. Stages of Chronic Kidney Disease GFR Stage 3a Mild to moderate loss of kidney function 59 to 45 Stage 3b Moderate to severe loss of kidney function 44 to 33 Stage 4 Severe loss of kidney function 29 to 15 Stage 5 Kidney failure Less than 15 GFR calculated using the CKD-Epi Creatinine Equation (2020): eGFR = 142 X min(SCr/?, 1)? X max(SCr /?, 1)-1.200 X 0.9938Age X 1.012 [if female] Abbreviations/Units: eGFR (estimated glomerular filtration rate) = mL/min/1.73 m2 SCr (standardized serum creatinine) = mg/dL ? = 0.7 (females) or 0.9 (males) ? = -0.241 (females) or -0.302 (males) min = indicates the minimum of SCr/? or 1 max = indicates the maximum of SCr/? or 1 Age = years Performed By: #### . Manual Diff #### [address] [address] CBC w/ Diffon 02-01-2023 Erythrocyte distribution width (RBC) [Ratio] 16.2 % High 11.6-14.8 [facility] Comment on above: Performed By: #### C BC #### [address] [address] Hematocrit (Bld) [Volume fraction] 29.5 % Low 41.0-53.0 [facility] Comment on above: Performed By: #### C BC #### [address] [address] Hemoglobin (Bld) [Mass/Vol] 10.2 g/dL Low 13.5-17.5 [facility] Comment on above: Performed By: #### C BC #### [address] [address] MCH (RBC) [Entitic mass] 30.2 pg Normal 27.0-35.0 [facility] Comment on above: Performed By: #### C BC #### [address] [address] MCHC 34.5 % Normal 31.0-37.0 [facility] Comment on above: Performed By: #### C BC #### [address] [address] MCV (RBC) [Entitic vol] 87.5 fL Normal 80.0-100.0 [facility] Comment on above: Performed By: #### C BC #### [address] [address] Platelet 151 x10*3/mcL Normal 150-450 [facility] Comment on above: Performed By: #### C BC #### [address] [address] Platelet mean volume (Bld) [Entitic vol] 7.2 fL Normal 6.7-10.6 [facility] Comment on above: Performed By: #### C BC #### [address] [address] RBC 3.37 x10*6/mcL Low 4.30-5.80 [facility] Comment on above: Performed By: #### C BC #### [address] [address] WBC 10.6 x10*3/mcL Normal 4.5-11.0 [facility] Comment on above: Performed By: #### C BC #### [address] [address] CMPon 02-01-2023 Albumin [Mass/Vol] 3.3 g/dL Normal 3.2-4.9 [facility] Comment on above: Performed By: #### C [id number] #### [address] [address] Albumin/Globulin [Mass ratio] 1.2 {ratio} Normal 1.1-2.2 [facility] Comment on above: Performed By: #### C [id number] #### [address] [address] Alk Phos 100 IU/L High 32-91 [facility] Comment on above: Performed By: #### C [id number] #### [address] [address] ALT [Catalytic activity/Vol] 15 U/L Low 17-63 [facility] Comment on above: Performed By: #### C [id number] #### [address] [address] Anion gap [Moles/Vol] 11 mmol/L Normal 7-17 [facility] Comment on above: Performed By: #### C [id number] #### [address] [address] AST [Catalytic activity/Vol] 17 U/L Normal 15-41 [facility] Comment on above: Performed By: #### C [id number] #### [address] [address] Bili Total 0.5 mg/dL Normal 0.3-1.2 [facility] Comment on above: Performed By: #### C [id number] #### [address] [address] Calcium [Mass/Vol] 8.0 mg/dL Low 8.5-10.3 [facility] Comment on above: Performed By: #### C [id number] #### [address] [address] Chloride [Moles/Vol] 107 mmol/L Normal 98-110 [facility] Comment on above: Performed By: #### C [id number] #### [address] [address] CO2 [Moles/Vol] 20 mmol/L Low 22-32 [facility] Comment on above: Performed By: #### C [id number] #### [address] [address] Creatinine [Mass/Vol] 2.68 mg/dL High 0.61-1.24 [facility] Comment on above: Performed By: #### C [id number] #### [address] [address] Glucose [Mass/Vol] 268 mg/dL High 70-99 [facility] Comment on above: Performed By: #### C [id number] #### [address] [address] Potassium [Moles/Vol] 5.3 mmol/L High 3.4-4.8 [facility] Comment on above: Performed By: #### C [id number] #### [address] [address] Protein [Mass/Vol] 6.1 g/dL Low 6.5-8.1 [facility] Comment on above: Performed By: #### C [id number] #### [address] [address] Sodium [Moles/Vol] 133 mmol/L Normal 133-142 [facility] Comment on above: Performed By: #### C [id number] #### [address] [address] Urea nitrogen [Mass/Vol] 67 mg/dL High 8-26 [facility] Comment on above: Performed By: #### C [id number] #### [address] [address] Urea nitrogen/Creatinine [Mass ratio] 25.0 mg/mg High 10.0-20.0 [facility] Comment on above: Performed By: #### C [id number] #### [address] [address] Diff Autoon 02-01-2023 Baso Absolute 0.0 x10*3/mcL Normal 0.0-0.2 [facility] Comment on above: Performed By: #### . Manual Diff #### [address] [address] Basophils/100 WBC (Bld) 0.3 % Normal 0.0-1.2 [facility] Comment on above: Performed By: #### . Manual Diff #### [address] [address] Eos Absolute 0.0 x10*3/mcL Normal 0.0-0.4 [facility] Comment on above: Performed By: #### . Manual Diff #### [address] [address] Eosinophils/100 WBC (Bld) 0.0 % Normal 0.0-6.1 [facility] Comment on above: Performed By: #### . Manual Diff #### [address] [address] Lymph Absolute 0.3 x10*3/mcL Low 1.0-4.[address] [facility] Comment on above: Performed By: #### . Manual Diff #### [address] [address] Lymphocytes/100 WBC (Bld) 3.2 % Low 27.2-40.8 [facility] Comment on above: Performed By: #### . Manual Diff #### [address] [address] Corson Absolute 0.2 x10*3/mcL Low 0.3-1.1 [facility] Comment on above: Performed By: #### . Manual Diff #### [address] [address] Monocytes/100 WBC (Bld) 2.1 % Low 4.7-13.9 [facility] Comment on above: Performed By: #### . Manual Diff #### [address] [address] Neutro Absolute 10.0 x10*3/mcL High 1.8-7.7 [facility] Comment on above: Performed By: #### . Manual Diff #### [address] [address] Neutro Auto 94.4 % High 47.2-70.8 [facility] Comment on above: Performed By: #### . Manual Diff #### [address] [address] Diff Yoli 02-01-2023 Anisocyte Slight Normal [facility] Comment on above: Performed By: #### . Manual Diff #### [address] [address] Band form neutrophils/100 WBC (Bld) 0 % Normal 0-5 [facility] Comment on above: Performed By: #### . Manual Diff #### [address] [address] Basophils/100 WBC (Bld) 0 % Normal 0-3 [facility] Comment on above: Performed By: #### . Manual Diff #### [address] [address] Eosinophils/100 WBC (Bld) 0 % Normal 0-7 [facility] Comment on above: Performed By: #### . Manual Diff #### [address] [address] Lymphocytes/100 WBC (Bld) 2 % Low 14-42 [facility] Comment on above: Performed By: #### . Manual Diff #### [address] [address] Monocytes/100 WBC (Bld) 2 % Normal 1-11 [facility] Comment on above: Performed By: #### . Manual Diff #### [address] [address] Myelo Man 1 % High 0-0 [facility] Comment on above: Performed By: #### . Manual Diff #### [place] [id number] Platelet estimate Adequate Normal [facility] Comment on above: Performed By: #### . Manual Diff #### [place] [id number] Segs Man 95 % High 49-79 [facility] Comment on above: Performed By: #### . Manual Diff #### [place] [id number] Hgb A1con 02-01-2023 Glucose [Mass/Vol] 114 mg/dL Normal 68-114 [facility] Comment on above: Result Comment: Math ematical Calc approx. The mean gluc equivalency of A1c Performed By: #### H BA1C #### [place] [address] Hgb A1c 5.6 % A1c Normal 4.0-5.6 [facility] Comment on above: Result Comment: Refe rence Range: 4.0 - 5.6 % Normal 5.7 - 6.4 % Pre-Diabetes > 6.5 % Diabetes Performed By: #### H BA1C #### [place] [address] Inpatient Clinical Summaryon 02-01-2023 Inpatient Clinical Summary [address] [address] [place] [address] Clinical Summary Person Information Name: Omer Santos Age: 72 Years : 1950 Sex: Male PCP: Ruben Luo MD Marital Status: Single Phone: PCP: [phone] Race: White Ethnicity: Not or Language: Korean Visit Id: Visit Reason: Speciality: Acuity: Enc Type: Observation Med Service: Surgery Arrival: 01/31/2023 08:47:46 Discharge: Dispo Type: Address: [address] [place] [id number] Diagnosis: Discharged To: Home Treatments: Devices/Equipment: Professional Skilled Services: Special Services and Community Resources: Mode of Discharge Transportation: Discharge Orders Allergies sulfa drugs (Nausea and vomiting) lisinopril (Cough) codeine (Nausea and vomiting) gabapentin (Diarrhea) Aleve (Rash) Functional Status: Sensory Deficits: None History of Falls: None Mobility Assistance Prior to Admission: ADLs: Independent Gait: Unable to assess Ambulation Assist: Assistive Device: Special Orthopedic Devices: Current Level of Assistance for Self-Care/Mobility: Cognitive Status: Orientation: Orientation Assessment Oriented x 4 Level of Consciousness: Alert Characteristics of Speech: Clear Aspiration Risk: None Affect/Behavior: Appropriate, Calm, Cooperative Laboratory or Other Results This Visit (last charted value for your 01/31/2023 visit) Hematology 02/01/2023 5:10 AM WBC: 10.6 x10 RBC: 3.37 x10 Segs Man: 95 % -- Normal range between ( 49 and 79 ) Lymph Man: 2 % -- Normal range between ( 14 and 42 ) Neutro Auto: 94.4 % -- Normal range between ( 47.2 and 70.8 ) Lymph Auto: 3.2 % -- Normal range between ( 27.2 and 40.8 ) Corson Auto: 2.1 % -- Normal range between ( 4.7 and 13.9 ) Eos Auto: 0.0 % -- Normal range between ( 0.0 and 6.1 ) Basophil Auto: 0.3 % -- Normal range between ( 0.0 and 1.2 ) Monocyte Man: 2 % -- Normal range between ( 1 and 11 ) Eos Man: 0 % -- Normal range between ( 0 and 7 ) Basophil Man: 0 % -- Normal range between ( 0 and 3 ) Baso Absolute: 0.0 x10 MCV: 87.5 fL -- Normal range between ( 80.0 and 100.0 ) MCHC: 34.5 % -- Normal range between ( 31.0 and 37.0 ) Myelo Man: 1 % Lymph Absolute: 0.3 x10 Hct: 29.5 % -- Normal range between ( 41.0 and 53.0 ) Corson Absolute: 0.2 x10 MCH: 30.2 pg -- Normal range between ( 27.0 and 35.0 ) Neutro Absolute: 10.0 x10 Hgb: 10.2 g/dL -- Normal range between ( 13.5 and 17.5 ) Mean Platelet Volume: 7.2 fL -- Normal range between ( 6.7 and 10.6 ) Band Man: 0 % -- Normal range between ( 0 and 5 ) Platelet: 151 x10 Eos Absolute: 0.0 x10 Anisocyte: Slight RDW: 16.2 % -- Normal range between ( 11.6 and 14.8 ) Platelet estimate: Adequate Chemistry 02/01/2023 5:10 AM Creatinine Lvl: 2.68 mg/dL -- Normal range between ( 0.61 and 1.24 ) BUN: 67 mg/dL -- Normal range between ( 8 and 26 ) Glucose Lvl: 268 mg/dL -- Normal range between ( 70 and 99 ) Potassium Lvl: 5.3 mmol/L -- Normal range between ( 3.4 and 4.8 ) AST: 17 IU/L -- Normal range between ( 15 and 41 ) ALT: 15 IU/L -- Normal range between ( 17 and 63 ) Sodium Lvl: 133 mmol/L -- Normal range between ( 133 and 142 ) Hgb A1c: 5.6 % A1c -- Normal range between ( 4.0 and 5.6 ) Calcium Lvl: 8.0 mg/dL -- Normal range between ( 8.5 and 10.3 ) Phosphorus: 4.8 mg/dL -- Normal range between ( 2.5 and 4.6 ) Albumin Lvl: 3.3 g/dL -- Normal range between ( 3.2 and 4.9 ) Total Protein: 6.1 g/dL -- Normal range between ( 6.5 and 8.1 ) Magnesium Lvl: 1.7 mg/dL -- Normal range between ( 1.7 and 2.4 ) Bili Total: 0.5 mg/dL -- Normal range between ( 0.3 and 1.2 ) Alk Phos: 100 IU/L -- Normal range between ( 32 and 91 ) Chloride: 107 mmol/L -- Normal range between ( 98 and 110 ) CO2: 20 mmol/L -- Normal range between ( 22 and 32 ) Anion Gap: 11 -- Normal range between ( 7 and 17 ) Estimated GFR: 24 mL/min/1.73m? eAvg Glucose: 114 mg/dL -- Normal range between ( 68 and 114 ) BUN Crea Ratio: 25.0 -- Normal range between ( 10.0 and 20.0 ) AG Ratio: 1.2 -- Normal range between ( 1.1 and 2.2 ) POC Testing 02/01/2023 6:12 AM POC Gluc Random: 268 mg/dL -- Normal range between ( 70 and 99 ) Diagnostic Radiology 01/31/2023 3:11 PM XR Spine Cervical 2 or 3 Views: XR Spine Cervical 2 or 3 Views Measurements: Height: Weight: Blood Pressure: 176 mmHg / BMI: Respiratory: Respirations: Unlabored Respiratory Symptoms: None Cardiovascular: Heart Sounds: Heart Rhythm: Regular Gastrointestinal: GI Symptoms: Bowel Sounds: Present Vital Signs: Temp Axillary: Temp Temporal Artery: 36.6 degC Temp Oral: 36.7 degC Temp Rectal: Apical Heart Rate: Peripheral Pulse Rate: 68 bpm Heart Rate: 85 bpm Respiratory Rate: 16 br/min Diet Diet: Feeding Tolerance: Appetite: [place] (more content not included)... Normal [facility] Magnesiumon 02-01-2023 Magnesium [Mass/Vol] 1.7 mg/dL Normal 1.7-2.4 [facility] Comment on above: Performed By: #### . Manual Diff #### [place] [id number] Orthopedic Progress Noteon 1 Orthopedic Progress Note Subjective Doing well this AM. Reports walking a lot better. Denies any pain. Swallowing well. Objective Vitals & Measurements T: 36.7 ?C (Oral) HR: 85 (Monitored) RR: 16 BP: 176/70 SpO2: 97% HT: 170 cm HT: 170.18 cm WT: 78.1 kg BMI: 25.95 BMI: 25.9 Additional Vitals No qualifying data available. Lab Results Microbiology - Current Encounter No qualifying data available. Physical Exam Dressing clean dry and intact. Drain in place holding suction 3/5 R foot dorsiflexion otherwise 5/5 BUE/BLE strength throughout SILT throughout BUE/BLE Medications Inpatient albuterol 2.5 mg/3 mL (0.083%) inhalation solution, 2.5 mg= 3 mL, NEB, q6hr, PRN amLODIPine, 10 mg, Oral, Daily atorvastatin, 40 mg, Oral, HS (at bedtime) carvedilol, 3.125 mg, Oral, BID ceFAZolin, 2 g= 50 mL, IV Piggyback, q8hr cyanocobalamin, 500 mcg, Oral, Daily Dextrose 10% in Water IV Piggyback, 125 mL, IV Piggyback, As Indicated, PRN docusate sodium, 100 mg, Oral, BID FeroSul 325 mg (65 mg elemental iron) oral tablet, 325 mg, Oral, BID glipiZIDE, 5 mg, Oral, qAM glucagon, 1 mg, Subcutaneous, As Indicated, PRN hydrALAZINE, 10 mg= 0.5 mL, IV Push, q10min, PRN insulin aspart, see comments, Subcutaneous, ACHS insulin detemir, 5 units, Subcutaneous, HS (at bedtime) labetalol, 10 mg= 2 mL, IV Push, q10min, PRN magnesium oxide, 400 mg, Oral, Daily morphine, 4 mg= 1 mL, IV Push, q4hr, PRN Nitrostat, 0.4 mg, SL, q5min, PRN ondansetron, 4 mg= 2 mL, IV Push, q4hr, PRN sodium chloride 0.9% injectable solution, 10 mL, IV Push, As Indicated, PRN Sodium Chloride 0.9% intravenous solution 1,000 mL, 1000 mL, IV traMADol, 50 mg, Oral, q6hr, PRN Vitamin D3, 2000 International_unit, Oral, Daily Assessment/Plan POD#1 s/p C3-C6 ACDF for cervical myelopathy Doing well with significant improvement in balance and gait Maintain drain in place XR C-spine pending this AM D/c home with drain mgmt today (patient labs and BP at pre-op baseline) Electronically signed by Gabe Harris MD, Jr 02/01/23 07:03 EDT Normal [facility] POC Glucose Randomon 023 Glucose [Mass/Vol] 281 mg/dL High 70-99 [facility] Comment on above: Performed By: #### . Manual Diff #### [address] [address] Glucose [Mass/Vol] 352 mg/dL High 70-99 [facility] Comment on above: Performed By: #### C [id number] #### [address] [address] Phosphoruson 02-01-2023 Phosphate [Mass/Vol] 4.8 mg/dL High 2.5-4.6 [facility] Comment on above: Performed By: #### . Manual Diff #### [address] [address] Potassiumon 02-01-2023 Potassium [Moles/Vol] 5.6 mmol/L High 3.4-4.8 [facility] Comment on above: Performed By: #### C [id number] #### [address] [address] .eGFRon 01-31-2023 Estimated GFR 26 mL/min/1.73m? Low >=60 [facility] Comment on above: Order Comment: Order added by Discern rule Result Comment: [facility] have implemented the eGFR calculation approach that does not have a coefficient for race and that conforms to the NKF-ASN Task Force Recommendations. Stages of Chronic Kidney Disease GFR Stage 3a Mild to moderate loss of kidney function 59 to 45 Stage 3b Moderate to severe loss of kidney function 44 to 33 Stage 4 Severe loss of kidney function 29 to 15 Stage 5 Kidney failure Less than 15 GFR calculated using the CKD-Epi Creatinine Equation (2020): eGFR = 142 X min(SCr/?, 1)? X max(SCr /?, 1)-1.200 X 0.9938Age X 1.012 [if female] Abbreviations/Units: eGFR (estimated glomerular filtration rate) = mL/min/1.73 m2 SCr (standardized serum creatinine) = mg/dL ? = 0.7 (females) or 0.9 (males) ? = -0.241 (females) or -0.302 (males) min = indicates the minimum of SCr/? or 1 max = indicates the maximum of SCr/? or 1 Age = years Performed By: #### E GFR #### [address] [address] Basic Metabolic Profileon Anion gap [Moles/Vol] 14 mmol/L Normal 7-17 [facility] Comment on above: Performed By: #### . Manual Diff #### [address] [address] Calcium [Mass/Vol] 9.0 mg/dL Normal 8.5-10.3 [facility] Comment on above: Performed By: #### . Manual Diff #### [address] [address] Chloride [Moles/Vol] 111 mmol/L High 98-110 [facility] Comment on above: Performed By: #### . Manual Diff #### [address] [address] CO2 [Moles/Vol] 21 mmol/L Low 22-32 [facility] Comment on above: Performed By: #### . Manual Diff #### [address] [address] Creatinine [Mass/Vol] 2.56 mg/dL High 0.61-1.24 [facility] Comment on above: Performed By: #### . Manual Diff #### [address] [address] Glucose [Mass/Vol] 154 mg/dL High 70-99 [facility] Comment on above: Performed By: #### . Manual Diff #### [address] [address] Potassium [Moles/Vol] 5.7 mmol/L High 3.4-4.8 [facility] Comment on above: Performed By: #### . Manual Diff #### [address] [address] Sodium [Moles/Vol] 140 mmol/L Normal 133-142 [facility] Comment on above: Performed By: #### . Manual Diff #### [address] [address] Urea nitrogen [Mass/Vol] 67 mg/dL High 8-26 [facility] Comment on above: Performed By: #### . Manual Diff #### [facility] [address] [place] [address] Urea nitrogen/Creatinine [Mass ratio] 26.2 mg/mg High 10.0-20.0 [facility] Comment on above: Performed By: #### . 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 Gabe Harris Date of Consult: 01/31/2023 Assessment/Plan Mr. Santos is a 72-year-old male with a PMHx of HTN, HLD, asthma, CAD s/p stents, L carotid stenosis s/p endarterectomy, chronic anemia, CKD stage IV, T2DM, BPH, DDD. Cervical spinal stenosis w/ radiculopathy s/p an anterior cervical spine fusion and discectomy performed by Dr. Harris 01/31/23. Awaiting OR report. Hospitalist has been consulted for medical management. Cervical spinal stenosis w/ radiculopathy s/p an anterior cervical spine fusion and discectomy, doing well post-operatively Acute hyperkalemia in setting of CKD stage IV, prior hx/asymptomatic (K 5.7) T2DM, prior hx steroid induced hyperglycemia CKD stage IV (Cr 2.5, no baseline labs available, Nephrology [facility]) HTN, BP stable Anemia of chronic disease/Iron deficiency, on EPO outpatient (01/25/23 Hgb 9.9) Hx CAD s/p stents, no acute issues BPH, no acute issues DDD - Post-surgical managment per primary team - Obtain CBC, CMP, mag, phos, A1C - STAT EKG - Lokelma 10 mg po x1 then repeat K level. Repeat lokelma if needed. - Standard SSI ACHS. Add insulin detemir and titrate up SSI if become hyperglycemic w/ IV steroids - Hold home lasix, await repeat AM labs - Continue glipizide, Amlodipine, carvedilol (holding parameters for HR), statin, and ferrous sulfate. Home aspirin on hold d/t OR. - Renal diet - Bowel regimen/VTE prophylaxis per primary Thank you for your consultation. We will continue to follow the patient throughout hospitalization. Please call with any questions or concerns. Code Status: Full Resuscitation History of Present Illness Mr. Santos is a 72-year-old male with a PMHx of HTN, HLD, Asthma, CAD s/p stents, L carotid stenosis s/p endarterectomy , chronic anemia, CKD stage IV, T2DM, BPH, and DDD. Cervical spinal stenosis with radiculopathy s/p an anterior cervical spine fusion and discectomy performed by Dr. Harris 01/31/23. Awaiting OR report. Hospitalist has been consulted for medical management. Labs 01/25/23 showed WBC 8.3, Hgb 9.9, platelet 187. BMP this evening Na, K5.7, CR 2.5/BUN 67, glucose 154. Afebrile and VSS. Patient resting comfortably in bed. Endorses no complaints. Ate a full dinner. Denies any pain. Denies fever, chills, SOB, cough, chest pain, heart palpitations, orthopnea, peripheral edema, dizziness, abdominal pain, N/V, dysuria, bowel changes, headaches, confusion, or rash. Reports known history of CKD stage IV, states GFR 20s . Followed by Nephrology at [facility] in [place]. Prior history of hyperkalemia, on low K/renal diet at home. Anemia of chronic disease and iron deficiency, Hgb 9 improving. Reports recently started on EPO per nephrology. Denies hx PE/DVT, CHF, or cardiac arrhythmias. Review of Systems 10 point review of systems reviewed Objective Vitals & Measurements T: 36.4 ?C (Oral) TMIN: 36 ?C (Temporal Artery) TMAX: 36.9 ?C (Temporal Artery) HR: 68 (Peripheral) RR: 16 BP: 111/56 SpO2: 99% HT: 170.18 cm HT: 170 cm WT: 75.74 kg (Dosing) WT: 75 kg BMI: 25.9 BMI: 25.95 Physical Exam General: Alert oriented x3, patient appears in no acute cardiorespiratory distress. Eye: normal conjunctiva HENT: Normocephalic, moist oral mucosa, no scleral icterus. C-collar in place. Mid anterior cervical surgical drsg CDI. MICKI drain w/ sanguinous drainage. Neck: Supple, non-tender, no lymphadenopathy. Lungs: Clear to auscultation, no crepitations or wheeze. Heart: S1-S2 is normal. No rubs or gallops. Abdomen: Soft, non-tender, non-distended, normal bowel sounds, no masses Extremities: No cyanosis clubbing or edema Skin: no open sores or wounds Neurologic: Awake, alert, and oriented X3, patient does not have any focal deficits. Psychiatric: Calm and cooperative Additional Vitals No qualifying data available. Problem List/Past Medical History Ongoing Anemia Asthma BPH (benign prostatic hyperplasia) CAD (coronary artery disease) Cervical myelopathy Cervical radicular pain Cervical spinal stenosis Chronic kidney disease Claustrophobia DDD (degenerative disc disease), cervical Diabetes mellitus ED (erectile dysfunction) Gait instability GERD (gastroesophageal reflux disease) Hypertension Lumbar radicular pain Lumbar spondylosis Historical No qualifying data Procedure/Surgical History Carotid artery stent tube in neck (2008) Coronary artery stent (01/17/2018) Lumbar spinal fusion (07/20/2022) Back surgery (08/2022) Fusion Spine Cervical Anterior and Discectomy w/ Navigation (01/31/2023) Medications Inpatient albuterol 2.5 mg/3 mL (0.083%) inhalation solution, 2.5 mg= 3 mL, NEB, q6hr, PRN amLODIPine, 10 mg, Oral, Daily atorvastatin, 40 mg, Oral, HS (at bedtime) carvedilol, 3.125 mg, Oral, BID carvedilol, 6.25 mg, Oral, BID (more content not included)... Normal [facility] XR Spine Cervical 2 or 3 Vie on 01-31-2023 XR Spine Cervical 2 or 3 Views XR Spine Cervical 2 or 3 Views TECHNIQUE : Intraoperative fluoroscopy was performed without a radiologist present. HISTORY: anterior cervical spine fusion in OR FINDINGS: Fluoroscopy was performed without a radiologist present. Spot images demonstrate anterior cervical fusion. No radiation dose information was provided. IMPRESSION: Intraprocedural/intr aoperative fluoroscopy was performed. Correlate with procedural note for additional information. Final Dictated by: Renato Feliciano MD Dictated DT/TM: 01/31/2023 5:31 pm Signed by: Renato Feliciano MD Signed (Electronic Signature): 01/31/2023 5:32 pm (If Report Is Signed, Electronically Signed in Other Vendor System) Normal [facility] MRSA, DNA, Nasalon MRSA, DNA, Nasal POSITIVE: MRSA DNA detected by nucleic acid amplification. Abnormal NEG [facility] Comment on above: Result Comment: Results should be used as an adjunct to nosocomial control efforts to identify patients needing enhanced precautions. The test is not intended to identify patients with staphylococcal infections. Results should not be used to guide or monitor treatment for MRSA infections. Performed By: #### B MP, PT, PTT, CBC #### [address] [place] [address] Manager Testing: Dave Dawn MD #### GLYHGB #### [address] [address] Manager Testing: Faustino Patel MD #### MRSANO #### [address] [address] Manager Testing: Faustino Patel MD [address] [place] [address] Manager Testing: Dave Dawn MD APTTon 01-11-2023 aPTT Coag (Bld) [Time] 29.2 s Normal 26.8-34.8 [facility] Comment on above: Result Comment: IV Heparin Therapy Range: 62.0-94.0 Performed By: #### B MP, PT, PTT, CBC #### [address] [place] [address] Manager Testing: Dave Dawn MD #### GLYHGB #### [address] [address] Manager Testing: Faustino Patel MD #### MRSANO #### [address] [address] Manager Testing: Faustino Patel MD [address] [place] [address] Manager Testing: Dave Dawn MD Basic Metabolic Profon 01-11 Anion gap [Moles/Vol] 11 mmol/L Normal 9-17 [facility] Comment on above: Performed By: #### B MP, PT, PTT, CBC #### [facility] [address] [place] [address] Manager Testing: Dave Dawn MD #### GLYHGB #### [facility] [address] [place] [address] Manager Testing: Faustino Patel MD #### MRSANO #### [facility] [address] [place] [id number] Manager Testing: Faustino Patel MD [address] [place] [address] Manager Testing: Dave Dawn MD BUN/CRE Ratio 23 High 9-20 [facility] Comment on above: Performed By: #### B MP, PT, PTT, CBC #### [facility] [address] [place] [address] Manager Testing: Dave Dawn MD #### GLYHGB #### [facility] [address] [place] [phone] Manager Testing: Faustino Patel MD #### MRSANO #### [facility] [address] [place] [address] Manager Testing: Faustino Patel MD [facility] [address] [place] [address] Manager Testing: Dave Dawn MD Calcium [Mass/Vol] 9.3 mg/dL Normal 8.6-10.4 [facility] Comment on above: Performed By: #### B MP, PT, PTT, CBC #### [facility] [address] [place] [address] Manager Testing: Dave Dawn MD #### GLYHGB #### [facility] [address] [place] [address] Manager Testing: Faustino Patel MD #### MRSANO #### [facility] [address] [place] [address] Manager Testing: Faustino Patel MD [address] [place], [place] [phone] Manager Testing: Dave Dawn MD Chloride [Moles/Vol] 107 mmol/L Normal 98-107 [facility] Comment on above: Performed By: #### B MP, PT, PTT, CBC #### [address] [place] [address] Manager Testing: Dave Dawn MD #### GLYHGB #### [address] [address] Manager Testing: Faustino Patel MD #### MRSANO #### [address] [address] Manager Testing: Faustino Patel MD [address] [place], [place] [phone] Manager Testing: Dave Dawn MD CO2 [Moles/Vol] 24 mmol/L Normal 20-31 [facility] Comment on above: Performed By: #### B MP, PT, PTT, CBC #### [address] [place] [address] Manager Testing: Dave Dawn MD #### GLYHGB #### [facility] [address] [place] [phone] Manager Testing: Faustino Patel MD #### MRSANO #### [facility] [address] [place] [phone] Manager Testing: Faustino aPtel MD [address] [place], [place] [phone] Manager Testing: Dave Dawn MD Creatinine [Mass/Vol] 3.3 mg/dL High 0.7-1.2 [facility] Comment on above: Performed By: #### B MP, PT, PTT, CBC #### [facility] [address] [place] [address] [place] [address] Manager Testing: Dave Dawn MD #### GLYHGB #### [facility] [address] [place] [address] Manager Testing: Faustino Patel MD #### MRSANO #### [facility] [address] [place] [address] Manager Testing: Faustino Patel MD [address] [place], [place] [phone] Manager Testing: Dave Dawn MD GFR/1.73 sq M.predicted among non-blacks MDRD (S/P/Bld) [Vol rate/Area] 19 mL/min/{1.73_m2} Low >60 [facility] Comment on above: Result Comment: These results are not intended for use in patients <18 years of age. eGFR results are calculated without a race factor using the 2020 CKD-EPI equation. Careful clinical correlation is recommended, particularly when comparing to results calculated using previous equations. The CKD-EPI equation is less accurate in patients with extremes of muscle mass, extra-renal metabolism of creatine, excessive creatine ingestion, or following therapy that affects renal tubular secretion. Performed By: #### B MP, PT, PTT, CBC #### [facility] [address] [place] [address] [address] [place], [place] [phone] Manager Testing: Dave Dawn MD #### GLYHGB #### [facility] [address] [place] [address] Manager Testing: Faustino Patel MD #### MRSANO #### [facility] [address] [place] [address] Manager Testing: Faustino Patel MD [address] [place], [place] [phone] Manager Testing: Dave Dawn MD Glucose [Mass/Vol] 61 mg/dL Low 70-99 [facility] Comment on above: Performed By: #### B MP, PT, PTT, CBC #### [address] [place], [place] [phone] Manager Testing: Dave Dawn MD #### GLYHGB #### [address] [address] Manager Testing: Faustino Patel MD #### MRSANO #### [address] [address] Manager Testing: Faustino Patel MD [address] [place], [place] [phone] Manager Testing: Dave Dawn MD Potassium [Moles/Vol] 4.9 mmol/L Normal 3.7-5.3 [facility] Comment on above: Performed By: #### B MP, PT, PTT, CBC #### [address] [place], [place] [phone] Manager Testing: Dave Dawn MD #### GLYHGB #### [address] [address] Manager Testing: Faustino Patel MD #### MRSANO #### [address] [address] Manager Testing: Faustino Patel MD [address] [place] [address] Manager Testing: Dave Dawn MD Sodium [Moles/Vol] 142 mmol/L Normal 135-144 [facility] Comment on above: Performed By: #### B MP, PT, PTT, CBC #### [address] [place], [place] [phone] Manager Testing: Dave Dawn MD #### GLYHGB #### [address] [address] Manager Testing: Faustino Patel MD #### MRSANO #### [facility] [address] [place] [address] Manager Testing: Faustino Patel MD [address] [place], [place] [phone] Manager Testing: Dave Dawn MD Urea nitrogen [Mass/Vol] 75 mg/dL High 8-23 [facility] Comment on above: Performed By: #### B MP, PT, PTT, CBC #### [address] [place], [place] [phone] Manager Testing: Dave Dawn MD #### GLYHGB #### [address] [address] Manager Testing: Faustino Patel MD #### MRSANO #### [address] [address] Manager Testing: Faustino Patel MD [address] [place], [place] [phone] Manager Testing: Dave Dawn MD CBCon 01-11-2023 Erythrocyte distribution width (RBC) [Ratio] 13.3 % Normal 11.8-14.4 [facility] Comment on above: Performed By: #### B MP, PT, PTT, CBC #### [address] [place], [place] [phone] Manager Testing: Dave Dawn MD #### GLYHGB #### [address] [address] Manager Testing: Faustino Patel MD #### MRSANO #### [address] [address] Manager Testing: Faustino Patel MD [address] [place], [place] [phone] Manager Testing: Dave Dawn MD Hematocrit (Bld) [Volume fraction] 28.9 % Low 40.7-50.3 [facility] Comment on above: Performed By: #### B MP, PT, PTT, CBC #### [address] [place] [phone] Manager Testing: Dave Dawn MD #### GLYHGB #### [address] [address] Manager Testing: Faustino Patel MD #### MRSANO #### [address] [address] Manager Testing: Faustino Patel MD [address] [place] [phone] Manager Testing: Dave Dawn MD Hemoglobin (Bld) [Mass/Vol] 9.6 g/dL Low 13.0-17.0 [facility] Comment on above: Performed By: #### B MP, PT, PTT, CBC #### [address] [place] [phone] Manager Testing: Dave Dawn MD #### GLYHGB #### [address] [address] Manager Testing: Faustino Patel MD #### MRSANO #### [address] [address] Manager Testing: Faustino Patel MD [address] [place] [phone] Manager Testing: Dave Dawn MD MCH (RBC) [Entitic mass] 30.0 pg Normal 25.2-33.5 [facility] Comment on above: Performed By: #### B MP, PT, PTT, CBC #### [address] [place] [address] Manager Testing: Dave Dawn MD #### GLYHGB #### [address] [address] Manager Testing: Faustino Patel MD #### MRSANO #### [address] [address] Manager Testing: Faustino Patel MD [address] [place] [phone] Manager Testing: Dave Dawn MD MCHC (RBC) [Mass/Vol] 33.2 g/dL Normal 28.4-34.8 [facility] Comment on above: Performed By: #### B MP, PT, PTT, CBC #### [address] [place] [address] Manager Testing: Dave Dawn MD #### GLYHGB #### [address] [address] Manager Testing: Faustino Patel MD #### MRSANO #### [address] [address] Manager Testing: Faustino Patel MD [address] [place] [address] Manager Testing: Dave Dawn MD MCV (RBC) [Entitic vol] 90.3 fL Normal 82.6-102.9 [facility] Comment on above: Performed By: #### B MP, PT, PTT, CBC #### [address] [place] [address] Manager Testing: Dave Dawn MD #### GLYHGB #### [address] [address] Manager Testing: Faustino Patel MD #### MRSANO #### [address] [address] Manager Testing: Faustino Patel MD [address] [place] [address] Manager Testing: Dave Dawn MD NRBC Automated 0.0 per 100 WBC Normal 0.0 [facility] Comment on above: Performed By: #### B MP, PT, PTT, CBC #### [address] [place] [phone] Manager Testing: Dave Dawn MD #### GLYHGB #### [address] [address] Manager Testing: Faustino Patel MD #### MRSANO #### [address] [address] Manager Testing: Faustino Patel MD [address] [place] [address] Manager Testing: Dave Dawn MD Platelet mean volume (Bld) [Entitic vol] 8.6 fL Normal 8.1-13.5 [facility] Comment on above: Performed By: #### B MP, PT, PTT, CBC #### [address] [place] [phone] Manager Testing: Dave Dawn MD #### GLYHGB #### [address] [address] Manager Testing: Faustino Patel MD #### MRSANO #### [address] [address] Manager Testing: Faustino Patel MD [address] [place] [address] Manager Testing: Dave Dawn MD Platelets (Bld) [#/Vol] 191 10*3/uL Normal 138-453 [facility] Comment on above: Performed By: #### B MP, PT, PTT, CBC #### [address] [place] [address] Manager Testing: Dave Dawn MD #### GLYHGB #### [facility] [address] [place] [address] Manager Testing: Faustino Patel MD #### MRSANO #### [facility] [address] [place] [address] Manager Testing: Faustino Patel MD [address] [place] [address] Manager Testing: Dave Dawn MD RBC (Bld) [#/Vol] 3.20 10*6/uL Low 4.21-5.77 [facility] Comment on above: Performed By: #### B MP, PT, PTT, CBC #### [address] [place] [address] Manager Testing: Dave Dawn MD #### GLYHGB #### [address] [address] Manager Testing: Faustino Patel MD #### MRSANO #### [facility] [address] [place] [address] Manager Testing: Faustino Patel MD [address] [place] [address] Manager Testing: Dave Dawn MD WBC (Bld) [#/Vol] 7.4 10*3/uL Normal 3.5-11.3 [facility] Comment on above: Performed By: #### B MP, PT, PTT, CBC #### [address] [place] [address] Manager Testing: Dave Dawn MD #### GLYHGB #### [address] [address] Manager Testing: Faustino Patel MD #### MRSANO #### [facility] [address] [place] [address] Manager Testing: Faustino Patel MD [address] [place] [address] Manager Testing: Dave Dawn MD Hemoglobin A1Con 01-11-2023 Glucose [Mass/Vol] 80 mg/dL Normal [facility] Comment on above: Result Comment: The ADA and AACC recommend providing the estimated average glucose result to permit better patient understanding of their HBA1c result. Performed By: #### B MP, PT, PTT, CBC #### [address] [place] [address] Manager Testing: Dave Dawn MD #### GLYHGB #### [address] [address] Manager Testing: Faustino Patel MD #### MRSANO #### [address] [address] Manager Testing: Faustino Patel MD [address] [place], [place] [phone] Manager Testing: Dave Dawn MD HbA1c (Bld) [Mass fraction] 4.4 % Normal 4.0-6.0 [facility] Comment on above: Performed By: #### B MP, PT, PTT, CBC #### [address] [place] [address] Manager Testing: Dave Dawn MD #### GLYHGB #### [address] [address] Manager Testing: Faustino Patel MD #### MRSANO #### [facility] [address] [place] [address] Manager Testing: Faustino Patel MD [address] [place] [phone] Manager Testing: Dave Dawn MD MRSA, DNA, Nasalon 3 Specimen Description .NASAL SWAB Normal [facility] Comment on above: Performed By: #### B MP, PT, PTT, CBC #### [facility] [address] [place] [address] Dr. [place], [place] [phone] Manager Testing: Dave Dawn MD #### GLYHGB #### [address] [address] Manager Testing: Faustino Patel MD #### MRSANO #### [address] [address] Manager Testing: Faustino Patel MD [facility] [address] [place] [address] Dr. [place], [place] [phone] Manager Testing: Dave Dawn MD PTon 3899 INR Coag (PPP) [Relative time] 1.2 {INR} Normal [facility] Comment on above: Result Comment: Therapeutic Range: Moderate Anticoagulant Intensity: INR = 2.0-3.0 High Anticoagulant Intensity: INR = 2.5-3.5 Performed By: #### B MP, PT, PTT, CBC #### [facility] [address] [place] [address] Dr. [place], [place] [phone] Manager Testing: Dave Dawn MD #### GLYHGB #### [address] [address] Manager Testing: Faustino Patel MD #### MRSANO #### [address] [address] Manager Testing: Faustino Patel MD [facility] [address] [place] [address] [place] [address] Manager Testing: Dave Dawn MD PT Coag (PPP) [Time] 15.2 s High 11.9-14.8 [facility] Comment on above: Performed By: #### B MP, PT, PTT, CBC #### [facility] [address] [place], [place] [phone] Manager Testing: Dave Dawn MD #### GLYHGB #### [facility] [address] [place] [address] Manager Testing: Faustino Patel MD #### MRSANO #### [facility] [address] [place] [address] Manager Testing: Faustino Patel MD [facility] [address] [place], [place] [phone] Manager Testing: Dave Dawn MD XR CHEST (2 VW)on 01-11-2023 XR CHEST (2 VW) EXAMINATION: TWO XRAY VIEWS OF THE CHEST 01/10/2023 10:37 am COMPARISON: 04/04/2015 HISTORY: ORDERING SYSTEM PROVIDED HISTORY: Encounter for preprocedural respiratory examination FINDINGS: The lungs are without acute focal process. There is no effusion or pneumothorax. The cardiomediastinal silhouette is stable. The osseous structures are stable. IMPRESSION: No acute process. Interpreted by: Lalo Garcia MD Signed by: Lalo Garcia MD 01/11/23 Recipients: Ruben Luo MD - Fax Vadim Veronica MD - Fax Final result Normal [facility] Provider Letteron 01-09-2023 Provider Letter Ruben Luo MD [address] [place] [phone] Re: Omer Santos Date of Visit: 01/08/2023 Dear Ruben Luo, Thank you for allowing me to contribute to the care of your patient, Omer Santos. Below, you will find my assessment and recommendations from our encounter today. Assessment/Plan History of CEA (carotid endarterectomy) Patient with a history of a right carotid endarterectomy with stent placement who is being evaluated for possible ACDF on the left by Dr. Bernal. Flexible nasolaryngoscopy today does not reveal any evidence of true vocal fold paresis or paralysis. He is cleared from an ENT standpoint for cervical spine surgery. No other ENT needs at this time. Follow-up as needed. Please do not hesitate to contact me directly via phone or email with any questions or concerns. Sincerely, Domenic Roca MD, FACS Otolaryngology Head & Neck [facility] [address] [address] Tel.: [phone] Email: [email or web address] Providers: The following document(s) were included in the letter: January 08, 2023 15:00:00 EDT - (01/08/2023) ENT Office Visit Note Normal [facility] Otolaryngology Office/Clinic Noteon 01-08-2023 Otolaryngology Office/Clinic Note Chief Complaint Here for flexible nasolaryngoscopy History of Present Illness Patient presents today as a consultation from Dr. Bernal for flexible nasolaryngoscopy. The patient has history of cervical stenosis with radiculopathy and they plan on performing an anterior surgical procedure for these reasons. He also has a history of right-sided carotid endarterectomy with stent placement and immediately following this procedure the patient notes that he was hoarse for a few days and then his voice recovered. Dr. Bernal is therefore requesting that flexible nasolaryngoscopy is performed they can evaluate the cords bilaterally for any paralysis or reason that they would not be able to proceed with surgery. He is a former smoker. No other concerns. Physical Exam Vitals & Measurements T: 36.4 ?C (Temporal Artery) HT: 168.4 cm WT: 78.3 kg WT: 78.3 kg (Dosing) BMI: 27.61 General: No acute distress, alert and oriented x3 Voice: Appropriate for age. Normal tone, volume, and projection noted. Head: Normocephalic atraumatic, no abnormal masses or lesions noted Face: Facial function symmetric and equal bilaterally. Ears: External ears and mastoids appear normal bilaterally. Nose: External nasal dorsum is straight. Mouth: Dentition is good. Oral tongue has normal mobility Oropharynx: Posterior oropharynx shows no abnormal masses or lesions. Neck: Neck is supple. Laryngeal crepitus is normal. The following additional exam findings were noted today: Well-healed right carotid endarterectomy incision. No cervical lymphadenopathy. No scar noted in the on the left neck. No hoarseness appreciated. Procedure: Flexible fiberoptic laryngoscopy ([address]) Preoperative diagnosis: History of right CEA, evaluate true vocal folds bilaterally for paresis or paralysis in advance of ACDF on the left Postoperative diagnosis: Same Surgeon: Domenic Roca MD FACS Anesthesia: Topical lidocaine and Afrin Complications: None Condition: Stable throughout the exam Indications and consent: The patient presents to the clinic with the above listed history. Indirect laryngoscopy was incomplete due to a strong gag reflex. Thus it was recommended that they undergo a flexible fiberoptic laryngoscopy. All of the risks, benefits, and potential complications were reviewed with the patient before the procedure and verbal informed consent was obtained. Procedure: The patient was seated upright in the clinic. The exam was recorded today. Topical lidocaine and Afrin were applied to the nasal cavity. After adequate anesthesia, the Olympus adult flexible nasal laryngoscope was inserted into the nasal cavity and used to examine all structures in the nasal cavity, nasopharynx, oropharynx, hypopharynx, and endolarynx, showing: Scope was introduced to the patient's right nasal cavity. Nasopharynx is normal. Oropharynx is normal. Vallecula and epiglottis are normal. No pooling of secretions in the piriform sinuses bilaterally. Aryepiglottic folds are normal bilaterally. Postcricoid space shows mild erythema and edema consistent with potential GERD/LPR. True vocal folds are equally mobile and symmetric bilaterally. No evidence of vocal fold paralysis or paresis bilaterally. The flexible nasal laryngoscope was then slowly withdrawn from the patient and the procedure was terminated. The patient tolerated the procedure well with no immediate complications noted. Additional Vitals No qualifying data available. Assessment/Plan History of CEA (carotid endarterectomy) Patient with a history of a right carotid endarterectomy with stent placement who is being evaluated for possible ACDF on the left by Dr. Bernal. Flexible nasolaryngoscopy today does not reveal any evidence of true vocal fold paresis or paralysis. He is cleared from an ENT standpoint for cervical spine surgery. No other ENT needs at this time. Follow-up as needed. Time Spent with the Patient 1 acute uncomplicated illness or injury Low risk from additional diagnostic testing or treatment I have personally spent 32 minutes on this date, directly related to today's patient visit, including pre and post visit work, for this date of service. Time listed does not include time spent on separately billable services. New patient level 3 [id number] added for flexible nasolaryngoscopy Physician Comments This note was generated using voice recognition software. Though proofreading has been done, there is still a chance of some unintentional typos and/or errors. Problem List/Past Medical History Ongoing Asthma Chronic kidney disease Diabetes mellitus Hypertension Historical No qualifying data Procedure/Surgical History tube in neck Back surgery (07/20/2022) Medications amLODIPine 10 mg oral tablet aspirin 81 mg oral capsule, 81 mg= 1 caps, Oral, Daily atorvastatin 40 mg (more content not included)... Normal [facility] CT CERVICAL SPINE WO CONTRAS Ton 12-29-2022 CT CERVICAL SPINE WO CONTRAST EXAMINATION: CT OF THE CERVICAL SPINE WITHOUT CONTRAST 12/25/2022 6:52 pm TECHNIQUE: CT of the cervical spine was performed without the administration of intravenous contrast. Multiplanar reformatted images are provided for review. Automated exposure control, iterative reconstruction, and/or weight based adjustment of the mA/kV was utilized to reduce the radiation dose to as low as reasonably achievable. COMPARISON: None HISTORY: ORDERING SYSTEM PROVIDED HISTORY: Cervical spinal stenosis FINDINGS: BONES/ALIGNMENT: There is no acute fracture or traumatic malalignment. 3.2 mm grade 1 anterolisthesis C2 on C3 is noted. DEGENERATIVE CHANGES: Diffuse significant spondylosis in the cervical spine is noted most severe from C3 through C6 with large anterior and posterior osteophyte. Severe multilevel neural foraminal narrowing is present C3-C4 through C6-C7. Diffuse moderate facet changes are noted. Severe canal stenosis C3-C4 is noted due to spondylosis and apparent disc protrusion. Severe canal stenosis at C4-C5 and C5-C6 due to spondylosis. Mild C6-C7 canal stenosis. SOFT TISSUES: There is no prevertebral soft tissue swelling. IMPRESSION: Advanced degenerative and degenerative disc disease without acute fracture or traumatic malalignment. Severe bilateral neural foraminal narrowing present C3-C4 through C6-C7. Multilevel canal stenosis severe C3-C4 through C5-C6. Mild C6-C7 canal stenosis. Interpreted by: Pascale Albarado MD Signed by: Pascale Albarado MD 12/29/22 Final result Normal [facility] US carotid doppler BIon 05- US carotid doppler BI [facility] Main [place] [address] [place] [address] Ultrasound Report Signed Patient: Omer Santos MR#: [id number] 7 : 1950 Acct:[id number] Age/Sex: 72 / M ADM Date: 08/20/22 Loc: [facility] Room: Type: [facility] Attending Dr: Ney Roman MD Ordering Provider: Ney Roman MD Date of Service: 08/20/22 US/US carotid doppler BI: I65.23 Copies to: Ney Roman MD CAROTID DUPLEX INDICATION: Carotid surveillance study after prior carotid surgery PROCEDURE: Color-flow duplex scanning is used to interrogate the extracranial carotid arterial system, as well as both vertebral arteries. Both carotid bifurcations show mild to moderate heterogeneous plaque formation. The proximal right internal carotid artery shows a highest peak systolic velocity of 93.8 cm/s with an end-diastolic velocity of 28.6 cm/s . The mid internal carotid artery measures 115 cm/s peak systolic and 31.1 cm/s end diastolic. The distal segment measures 118 cm/s peak systolic with an end diastolic velocity of 29.2 cm/s . The velocities of the right common carotid artery are 112 cm/s peak systolic and 34.8 cm/s end-diastolic proximally and 106 cm/s peak systolic and 19.3 cm/s end diastolic distally. The peak systolic velocity ratio of the internal to the common carotid artery is 1.11. The right vertebral artery is patent at 106 cm/s with antegrade flow. The proximal left internal carotid artery shows a highest peak systolic velocity of 263 cm/s with an end-diastolic velocity of 80 cm/s . The mid internal carotid artery measures 177 cm/s peak systolic and 39.5 cm/s end diastolic. The distal segment measures 110 cm/s peak systolic with an end diastolic velocity of 35.5 cm/s . The velocities of the left common carotid artery are 90.7 cm/s peak systolic and 25.5 cm/s end-diastolic proximally and 146 cm/s peak systolic and 46.8 cm/s end diastolic distally. The peak systolic velocity ratio of the internal to the common carotid artery is 1.8 . The left external carotid artery measures 356 cm/s peak systolic. The left vertebral artery is patent at 170 cm/s with antegrade flow. US/US carotid doppler BI IMPRESSION: MILD TO MODERATE PLAQUE FORMATION IS NOTED BILATERAL EXTRACRANIAL CAROTID ARTERIES. MODERATE STENOSIS OF 50-69% WAS FOUND IN THE LEFT INTERNAL CAROTID artery. The right carotid system was normal. Impression dictated by: Ney Roman MD08/22/2022 3:32 PM Dictation Location: [place] [address] Tech: Laura Carney Transcribed By: SENDY 08/22/22 1532 Dictated By: Ney Roman MD 08/22/22 1531 Signed By: 08/22/22 153 [facility] FERRITINon 08-10-2022 Ferritin [Mass/Vol] 214.0 ng/mL Normal 26.0-388.0 [facility] Comment on above: Performed By: #### P THINT #### [facility] [address] [place] [address] Dr. Sarah Sánchez HEMOGRAM AND PLATELon 2022 Hematocrit (Bld) [Volume fraction] 24.3 % Critically low 42.0-54.0 [facility] Comment on above: Performed By: #### C VDTBH #### [facility] [address] [place] [address] Dr. Sarah Sánchez Hemoglobin (Bld) [Mass/Vol] 8.0 g/dL Critically low 14.0-18.0 [facility] Comment on above: Performed By: #### C VDTBH #### [facility] [address] [place], [place] [id number] Dr. Sarah Sánchez MCH (RBC) [Entitic mass] 29.7 pg Normal 25.9-34.0 [facility] Comment on above: Performed By: #### C VDTBH #### [facility] [address] [place] [address] Dr. Sarah Sánchez MCHC (RBC) [Mass/Vol] 32.9 g/dL Normal 29.9-35.2 [facility] Comment on above: Performed By: #### C VDTBH #### [facility] [address] [place] [address] Dr. Sarah Sánchez MCV (RBC) [Entitic vol] 90.3 fL Normal 80.0-94.0 [facility] Comment on above: Performed By: #### C VDTBH #### [facility] [address] [place] [address] Dr. Sarah Sánchez PLT 215 103/ul Normal 150-450 [facility] Comment on above: Performed By: #### C VDTBH #### [facility] [address] [place] [address] Dr. Sarah Sánchez RBC 2.69 106/ul Critically low 4.70-6.10 [facility] Comment on above: Performed By: #### C VDTBH #### [facility] [address] [place] [address] Dr. Sarah Sánchez WBC 7.3 103/ul Normal 4.0-11.0 [facility] Comment on above: Performed By: #### C VDTBH #### [facility] [address] [place] [address] Dr. Sarah Sánchez IRON AND TIBCon 08-10-2022 % SATURATION 23.5 % Normal [facility] Comment on above: Performed By: #### P THINT #### [facility] [address] [place] [address] Dr. Sarah Sánchez Iron [Mass/Vol] 54.0 ug/dL Critically low 65.0-175.0 [facility] Comment on above: Performed By: #### P THINT #### [facility] [address] [place] [address] [address] Sarah Sánchez TIBC DIRECT 230.0 ug/dL Critically low 250.0-450.0 [facility] Comment on above: Performed By: #### P THINT #### [facility] [facility] [address] [place] [address] Dr. Sarah Sánchez MAGNESIUMon 08-10-2022 Magnesium [Mass/Vol] 1.7 mg/dL Critically low 1.8-2.4 [facility] Comment on above: Performed By: #### C VDTBH #### [facility] [address] [address] [address] Sarah Sánchez RENAL FUNCTION PANELon 08-10 Albumin [Mass/Vol] 2.7 g/dL Critically low 3.4-5.0 [facility] Comment on above: Performed By: #### C VDTBH #### [facility] [address] [place] [address] Dr. Sarah Sánchez Calcium [Mass/Vol] 8.3 mg/dL Critically low 8.5-10.1 [facility] Comment on above: Performed By: #### C VDTBH #### [facility] [address] [address] [address] Sarah Sánchez Chloride [Moles/Vol] 106 mmol/L Normal 98-107 [facility] Comment on above: Performed By: #### C VDTBH #### [facility] [address] [place] [address] Dr. Sarah Sánchez CO2 [Moles/Vol] 29.6 mmol/L Normal 21.0-32.0 [facility] Comment on above: Performed By: #### C VDTBH #### [facility] [address] [address] [address] Sarah Sánchez Creatinine [Mass/Vol] 2.41 mg/dL Critically high 0.70-1.30 [facility] Comment on above: Performed By: #### C VDTBH #### [facility] [address] [address] [address] Sarah Sánchez EGFR-AF MALDIVIAN 32 mL/min/1.73m2 Critically low >=60 [facility] Comment on above: Performed By: #### C VDTBH #### [facility] [address] [place] [address] Dr. Sarah Sánchez EGFR-NON AF MALDIVIAN 27 mL/min/1.73m2 Critically low >=60 [facility] Comment on above: Performed By: #### C VDTBH #### [facility] [address] [place] [address] Dr. Sarah Sánchez Glucose [Mass/Vol] 111 mg/dL Critically high 74-106 [facility] Comment on above: Performed By: #### C VDTBH #### [facility] [address] [place] [address] Dr. Sarah Sánchez Phosphate [Mass/Vol] 4.6 mg/dL Normal 2.6-4.7 [facility] Comment on above: Performed By: #### C VDTBH #### [facility] [address] [place] [address] Dr. Sarah Sánchez Potassium [Moles/Vol] 5.2 mmol/L Critically high 3.5-5.1 [facility] Comment on above: Performed By: #### C VDTBH #### [facility] [address] [place] [address] Dr. Sarah Sánchez Sodium [Moles/Vol] 142 mmol/L Normal 136-145 [facility] Comment on above: Performed By: #### C VDTBH #### [facility] [address] [place] [address] Dr. Sarah Sánchez Urea nitrogen [Mass/Vol] 31.0 mg/dL Critically high 7.0-18.0 [facility] Comment on above: Performed By: #### C VDTBH #### [facility] [address] [place] [address] Dr. Sarah Sánchez CBC AUTO DIFFon 08-08-2022 BASO # 0.1 103/ul Normal 0.0-0.1 [facility] Comment on above: Performed By: #### H BSANS #### [facility] [address] [place] [address] Dr. Sarah Sánchez Basophils/100 WBC (Bld) 0.6 % Normal 0.2-2.0 [facility] Comment on above: Performed By: #### H BSANS #### [facility] [address] [address] [address] Sarah Sánchez EO # 0.5 103/ul Normal 0.0-0.7 [facility] Comment on above: Performed By: #### H BSANS #### [facility] [address] [address] [address] Sarah Sánchez Eosinophils/100 WBC (Bld) 6.1 % Normal 0.9-7.0 [facility] Comment on above: Performed By: #### H BSANS #### [facility] [address] [place] [address] Dr. Sarah Sánchez Erythrocyte distribution width (RBC) [Ratio] 14.0 % Normal 11.0-15.0 [facility] Comment on above: Performed By: #### H BSANS #### [facility] [address] [place] [address] Dr. Sarah Sánchez Hematocrit (Bld) [Volume fraction] 23.9 % Critically low 42.0-54.0 [facility] Comment on above: Performed By: #### H BSANS #### [facility] [address] [place] [address] Dr. Sarah Sánchez Hemoglobin (Bld) [Mass/Vol] 7.9 g/dL Critically low 14.0-18.0 [facility] Comment on above: Performed By: #### H BSANS #### [facility] [address] [place] [address] Dr. Sarah Sánchez IG # 0.08 10e3/ul Critically high 0.00-0.03 [facility] Comment on above: Performed By: #### H BSANS #### [facility] [address] [place] [address] Dr. Sarah Sánchez IG % 0.9 % Critically high 0.0-0.5 [facility] Comment on above: Performed By: #### H BSANS #### [facility] [address] [address] [address] Sarah Sánchez LYMPH # 1.1 103/ul Critically low 1.2-3.8 [facility] Comment on above: Performed By: #### H BSANS #### [facility] [address] [address] [address] Sarah Sánchez Lymphocytes/100 WBC (Bld) 11.9 % Critically low 20.5-60.0 [facility] Comment on above: Performed By: #### H BSANS #### [facility] [address] [address] [address] Sarah Sánchez MANUAL DIFF REQ NO Normal [facility] Comment on above: Performed By: #### H BSANS #### [facility] [address] [address] [address] Sarah Sánchez MCH (RBC) [Entitic mass] 30.4 pg Normal 25.9-34.0 [facility] Comment on above: Performed By: #### H BSANS #### [facility] [address] [place] [address] Dr. Sarah Sánchez MCHC (RBC) [Mass/Vol] 33.1 g/dL Normal 29.9-35.2 [facility] Comment on above: Performed By: #### H BSANS #### [facility] [address] [place] [address] Dr. Sarah Sánchez MCV (RBC) [Entitic vol] 91.9 fL Normal 80.0-94.0 [facility] Comment on above: Performed By: #### H BSANS #### [facility] [address] [address] [address] Sarah Sánchez MONO # 0.5 103/ul Normal 0.3-0.8 [facility] Comment on above: Performed By: #### H BSANS #### [facility] [address] [address] [address] Sarah Sánchez Monocytes/100 WBC (Bld) 5.5 % Normal 1.7-12.0 [facility] Comment on above: Performed By: #### H BSANS #### [facility] [address] [address] [address] Sarah Sánchez NEUT # 6.6 103/ul Critically high 1.4-6.5 [facility] Comment on above: Performed By: #### H BSANS #### [facility] [address] [address] [address] Sarah Sánchez Neutrophils/100 WBC (Bld) 75.0 % Normal 43.0-75.0 [facility] Comment on above: Performed By: #### H BSANS #### [facility] [address] [address] [address] Sarah Sánchez Platelet mean volume (Bld) [Entitic vol] 8.5 fL Critically low 9.5-13.5 [facility] Comment on above: Performed By: #### H BSANS #### [facility] [address] [address] [address] Sarah Sánchez PLT 245 103/ul Normal 150-450 [facility] Comment on above: Performed By: #### H BSANS #### [facility] [address] [address] [address] Sarah Sánchez RBC 2.60 106/ul Critically low 4.70-6.10 [facility] Comment on above: Performed By: #### H BSANS #### [facility] [address] [address] [address] Sarah Sánchez WBC 8.8 103/ul Normal 4.0-11.0 [facility] Comment on above: Performed By: #### H BSANS #### [facility] [address] [address] [address] Sarah Sánchez ANION GAPon 07-26-2022 Anion gap [Moles/Vol] 13.0 mmol/L Normal 8.0-16.0 [facility] Comment on above: Result Comment: ANIO N GAP = Sodium -(Chloride + CO2) Performed By: #### P OCGL #### [facility] [address] [place] [address] Anion Gapon 07-26-2022 Anion gap [Moles/Vol] 13.0 mmol/L 8.0 - 16.0 meq/L [facility] Comment on above: ANION GAP = Sodium - (Chloride + CO2) Performed at [facility] [address] [place] [address] BASIC METABOL PANELon 2022 Calcium [Mass/Vol] 7.7 mg/dL Low 8.5-10.5 [facility] Comment on above: Performed By: #### P OCGL #### [facility] [address] [place] [address] Chloride [Moles/Vol] 102 mmol/L Normal 98-111 [facility] Comment on above: Performed By: #### P OCGL #### [facility] [address] [place] [address] CO2 [Moles/Vol] 19 mmol/L Low 23-33 [facility] Comment on above: Performed By: #### P OCGL #### [facility] [address] [place] [address] Creatinine [Mass/Vol] 2.4 mg/dL High 0.4-1.2 [facility] Comment on above: Performed By: #### P OCGL #### [facility] [address] [place] [address] Glucose [Mass/Vol] 205 mg/dL High 70-108 [facility] Comment on above: Performed By: #### P OCGL #### [facility] [address] [place] [address] Potassium [Moles/Vol] 4.8 mmol/L Normal 3.5-5.2 [facility] Comment on above: Performed By: #### P OCGL #### [facility] [address] [place] [address] Sodium [Moles/Vol] 134 mmol/L Low 135-145 [facility] Comment on above: Performed By: #### P OCGL #### [facility] [address] [place] [address] Urea nitrogen [Mass/Vol] 65 mg/dL High 7-22 [facility] Comment on above: Performed By: #### P OCGL #### [facility] [address] [place] [address] Basic metabolic 2000 panelon 07-26-2022 Calcium [Mass/Vol] 7.7 mg/dL Low 8.5 - 10. 5 mg/dL [facility] Comment on above: Performed at [facility] [address] [place] [address] Chloride [Moles/Vol] 102 mmol/L 98 - 11 1 meq/L [facility] CO2 [Moles/Vol] 19 mmol/L Low 23 - 33 meq/L [facility] Creatinine [Mass/Vol] 2.4 mg/dL High 0.4 - 1.2 mg/dL [facility] Glucose [Mass/Vol] 205 mg/dL High 70 - 108 mg/dL [facility] Potassium [Moles/Vol] 4.8 mmol/L 3.5 - 5.2 meq/L [facility] Sodium [Moles/Vol] 134 mmol/L Low 135 - 145 meq/L [facility] Urea nitrogen [Mass/Vol] 65 mg/dL High 7 - 22 mg/dL [facility] CBCon 07-26-2022 Erythrocyte distribution width (RBC) [Entitic vol] 46.2 fL High 35.0 - 45.0 fL [facility] Erythrocyte distribution width (RBC) [Ratio] 13.6 % 11.5 - 14.5 % [facility] Hematocrit (Bld) [Volume fraction] 22.9 % Low 42.0 - 52.0 % [facility] Hemoglobin (Bld) [Mass/Vol] 7.4 g/dL Low [facility] Interpretation and review of laboratory results Abnormal [facility] MCH (RBC) [Entitic mass] 30.0 pg 26.0 - 33.0 pg [facility] MCHC (RBC) [Mass/Vol] 32.3 g/dL [facility] MCV (RBC) [Entitic vol] 92.7 fL 80.0 - 94.0 fL [facility] Platelet mean volume (Bld) [Entitic vol] 9.0 fL Low 9.4 - 12.4 fL [facility] Comment on above: Performed at [facility] [address] [place] [address] Platelets (Bld) [#/Vol] 147 10*3/uL [facility] RBC (Bld) [#/Vol] 2.47 10*6/uL Low [facility] WBC (Bld) [#/Vol] 4.3 10*3/uL Low [facility] CBC NO DIFFERENTIALon 2022 Erythrocyte distribution width (RBC) [Ratio] 13.6 % Normal 11.5-14.5 [facility] Comment on above: Performed By: #### P OCGL #### [employer] [facility] [address] [place] [address] Hematocrit (Bld) [Volume fraction] 22.9 % Low 42.0-52.0 [facility] Comment on above: Performed By: #### P OCGL #### [address] [address] Hemoglobin (Bld) [Mass/Vol] 7.4 g/dL Low 14.0-18.0 [facility] Comment on above: Performed By: #### P OCGL #### [address] [address] MCH (RBC) [Entitic mass] 30.0 pg Normal 26.0-33.0 [facility] Comment on above: Performed By: #### P OCGL #### [address] [address] MCHC (RBC) [Mass/Vol] 32.3 g/dL Normal 32.2-35.5 [facility] Comment on above: Performed By: #### P OCGL #### [employer] [facility] [address] [place] [address] MCV (RBC) [Entitic vol] 92.7 fL Normal 80.0-94.0 [facility] Comment on above: Performed By: #### P OCGL #### [facility] [address] [place] [address] PLATELET 147 thou/mm3 Normal 130-400 [facility] Comment on above: Performed By: #### P OCGL #### [facility] [employer] [address] [address] Platelet mean volume (Bld) [Entitic vol] 9.0 fL Low 9.4-12.4 [facility] Comment on above: Performed By: #### P OCGL #### [address] [address] RBC 2.47 mill/mm3 Low 4.70-6.10 [facility] Comment on above: Performed By: #### P OCGL #### [address] [address] RDW-SD 46.2 fL High 35.0-45.0 [facility] Comment on above: Performed By: #### P OCGL #### [address] [address] WBC 4.3 thou/mm3 Low 4.8-10.8 [facility] Comment on above: Performed By: #### P OCGL #### [address] [id number] GFR, ESTIMATEDon 07-26-2022 GFR/1.73 sq M.predicted MDRD (S/P/Bld) [Vol rate/Area] 28 mL/min/{1.73_m2} Abnormal >60 [facility] Comment on above: Result Comment: Shayla atric calculator link https://www.kidney.org/professionals/kdoqi/gfr_calculatorped Effective Jan 08, 2022 These results are not intended for use in patients <18 years of age. eGFR results are calculated without a race factor using the 2020 CKD-EPI equation. Careful clinical correlation is recommended, particularly when comparing to results calculated using previous equations. The CKD-EPI equation is less accurate in patients with extremes of muscle mass, extra-renal metabolism of creatinine, excessive creatine ingestion, or following therapy that affects renal tubular secretion. Performed By: #### P OCGL #### [address] [address] GLUCOSE POCon 07-26-2022 Glucose [Mass/Vol] 312 mg/dL High 70-108 [facility] Comment on above: Performed By: #### H -A1C #### [address] [address] Glucose [Mass/Vol] 226 mg/dL High 70-108 [facility] Comment on above: Performed By: #### P OCGL #### [facility] [employer] [facility] [address] [place] [address] Glucose [Mass/Vol] 230 mg/dL High 70-108 [facility] Comment on above: Performed By: #### P OCGL #### [facility] [address] [place] [address] Glucose [Mass/Vol] 232 mg/dL High 70-108 [facility] Comment on above: Performed By: #### P OCGL #### [facility] [address] [place] [address] Glucose [Mass/Vol] 334 mg/dL High 70-108 [facility] Comment on above: Performed By: #### P OCGL #### [facility] [address] [place] [address] Glomerular Filtration Rate, Estimatedon 07-26-2022 GFR/1.73 sq M.predicted MDRD (S/P/Bld) [Vol rate/Area] 28 mL/min/{1.73_m2} Abnormal - PINF [email or web address] Comment on above: Pediatric calculator link https://www.kidney.org/professionals/kdoqi/gfr_calculatorped Effective Jan 08, 2022 These results are not intended for use in patients <18 years of age. eGFR results are calculated without a race factor using the 2020 CKD-EPI equation. Careful clinical correlation is recommended, particularly when comparing to results calculated using previous equations. The CKD-EPI equation is less accurate in patients with extremes of muscle mass, extra-renal metabolism of creatinine, excessive creatine ingestion, or following therapy that affects renal tubular secretion. Performed at [facility] [address] [place] [address] Glucose Auto test strip (Bld ) [Mass/Vol]on 07-26-2022 Glucose [Mass/Vol] 312 mg/dL High 70 - 108 mg/dl [email or web address] Comment on above: Performed at [facility] [employer] [address] [place] [address] Interpretation and review of laboratory results Abnormal [employer] Glucose [Mass/Vol] 226 mg/dL High 70 - 108 mg/dl [facility] Comment on above: Performed at [facility] [address] [id number] Interpretation and review of laboratory results Abnormal [facility] Glucose [Mass/Vol] 230 mg/dL High 70 - 108 mg/dl [facility] Comment on above: Performed at [facility] [address] [place] [address] Interpretation and review of laboratory results Abnormal [facility] Glucose [Mass/Vol] 232 mg/dL High 70 - 108 mg/dl [facility] Comment on above: Performed at [facility] [address] [place] [address] Interpretation and review of laboratory results Abnormal [facility] No Panel Informationon 07-26 Interpretation and review of laboratory results Abnormal [facility] VL DUP LOWER EXTREMITY VENOU S BILATERALon 07-26-2022 No evidence of deep venous thrombosis in either lower extremity. This report has been created using voice recognition software. It may contain minor errors which are inherent in voice recognition technology. Final report electronically signed by Dr. Jose R Bianchi on 07/26/2022 6:35 PM [facility] Jose R Cast MD - 07/26/2022 PROCEDURE: VL DUP LOWER EXTREMITY VENOUS BILATERAL CLINICAL INFORMATION: Bilateral leg swelling TECHNIQUE: High-resolution duplex ultrasound with spectral analysis of the bilateral lower extremities was performed. The common femoral, femoral, popliteal and calf vein segments were studied to the ankles. COMPARISON: Bilateral lower extremity venous duplex ultrasound 07/23/2022 FINDINGS: There is normal compressibility with no evidence of thrombus. Flow study shows normal color flow, augmentation and phasic response. IMPRESSION: No evidence of deep venous thrombosis in either lower extremity. This report has been created using voice recognition software. It may contain minor errors which are inherent in voice recognition technology. Final report electronically signed by Dr. Jose R Bianchi on 07/26/2022 6:35 PM [facility] [email or web address] Work Phone: Radiology Study observation (narrative) [facility] [email or web address] Work Phone: VL DUP LOWER EXTREMITY VENOU S BILATERALOrdered By: Jose R Bianchi on 07-26-2022 [facility] Phone: ANION GAPon 07-25-2022 Anion gap [Moles/Vol] 12.0 mmol/L Normal 8.0-16.0 [facility] Comment on above: Result Comment: ANIO N GAP = Sodium -(Chloride + CO2) Performed By: #### P OCGL #### [facility] [address] [place] [address] Anion Gapon 07-25-2022 Anion gap [Moles/Vol] 12.0 mmol/L 8.0 - 16.0 meq/L [facility] Comment on above: ANION GAP = Sodium - (Chloride + CO2) Performed at [facility] [address] [place] [address] BASIC METABOL PANELon 2022 Calcium [Mass/Vol] 7.7 mg/dL Low 8.5-10.5 [facility] Comment on above: Performed By: #### P OCGL #### [facility] [address] [place] [address] Chloride [Moles/Vol] 104 mmol/L Normal 98-111 [facility] Comment on above: Performed By: #### P OCGL #### [facility] [address] [place] [address] CO2 [Moles/Vol] 19 mmol/L Low 23-33 [facility] Comment on above: Performed By: #### P OCGL #### [facility] [address] [place] [address] Creatinine [Mass/Vol] 2.5 mg/dL High 0.4-1.2 [facility] Comment on above: Performed By: #### P OCGL #### [facility] [address] [place] [address] Glucose [Mass/Vol] 287 mg/dL High 70-108 [facility] Comment on above: Performed By: #### P OCGL #### [facility] [address] [place] [address] Potassium [Moles/Vol] 5.4 mmol/L High 3.5-5.2 [facility] Comment on above: Performed By: #### P OCGL #### [facility] [address] [place] [address] Sodium [Moles/Vol] 135 mmol/L Normal 135-145 [facility] Comment on above: Performed By: #### P OCGL #### [facility] [address] [place] [address] Urea nitrogen [Mass/Vol] 55 mg/dL High 7-22 [facility] Comment on above: Performed By: #### P OCGL #### [facility] [employer] [facility] [address] [place] [address] Basic metabolic 2000 panelon 07-25-2022 Calcium [Mass/Vol] 7.7 mg/dL Low 8.5 - 10. 5 mg/dL [facility] Comment on above: Performed at [facility] [address] [place] [address] Chloride [Moles/Vol] 104 mmol/L 98 - 11 1 meq/L [facility] CO2 [Moles/Vol] 19 mmol/L Low 23 - 33 meq/L [facility] Creatinine [Mass/Vol] 2.5 mg/dL High 0.4 - 1.2 mg/dL [facility] [employer] [facility] Glucose [Mass/Vol] 287 mg/dL High 70 - 108 mg/dL [facility] Potassium [Moles/Vol] 5.4 mmol/L High 3.5 - 5.2 meq/L [facility] Sodium [Moles/Vol] 135 mmol/L 135 - 145 meq/L [facility] Urea nitrogen [Mass/Vol] 55 mg/dL High 7 - 22 mg/dL [facility] [employer]CC[employer] [facility] CBCon 07-25-2022 Erythrocyte distribution width (RBC) [Entitic vol] 45 fL 35.0 - 45.0 fL [facility] Erythrocyte distribution width (RBC) [Ratio] 13.5 % 11.5 - 14.5 % [facility] Hematocrit (Bld) [Volume fraction] 23.1 % Low 42.0 - 52.0 % [facility] Hemoglobin (Bld) [Mass/Vol] 7.6 g/dL Low [facility] Interpretation and review of laboratory results Abnormal [facility] MCH (RBC) [Entitic mass] 30.2 pg 26.0 - 33.0 pg [facility] MCHC (RBC) [Mass/Vol] 32.9 g/dL [facility] MCV (RBC) [Entitic vol] 91.7 fL 80.0 - 94.0 fL [facility] Platelet mean volume (Bld) [Entitic vol] 9.1 fL Low 9.4 - 12.4 fL [facility] Comment on above: Performed at [facility] Medical Lab [address] [place] [id number] Platelets (Bld) [#/Vol] 148 10*3/uL [facility] RBC (Bld) [#/Vol] 2.52 10*6/uL Low [facility] WBC (Bld) [#/Vol] 3.9 10*3/uL Low [facility] CBC NO DIFFERENTIALon 2022 Erythrocyte distribution width (RBC) [Ratio] 13.5 % Normal 11.5-14.5 [facility] Comment on above: Performed By: #### P OCGL #### [facility] [employer] [address] [place] [address] Hematocrit (Bld) [Volume fraction] 23.1 % Low 42.0-52.0 [facility] Comment on above: Performed By: #### P OCGL #### [facility] [employer] [address] [place] [address] Hemoglobin (Bld) [Mass/Vol] 7.6 g/dL Low 14.0-18.0 [facility] Comment on above: Performed By: #### P OCGL #### [facility] [address] [place] [address] MCH (RBC) [Entitic mass] 30.2 pg Normal 26.0-33.0 [facility] Comment on above: Performed By: #### P OCGL #### [facility] [address] [place] [address] MCHC (RBC) [Mass/Vol] 32.9 g/dL Normal 32.2-35.5 [facility] Comment on above: Performed By: #### P OCGL #### [place] [address] MCV (RBC) [Entitic vol] 91.7 fL Normal 80.0-94.0 [facility] Comment on above: Performed By: #### P OCGL #### [address] [address] PLATELET 148 thou/mm3 Normal 130-400 [facility] Comment on above: Performed By: #### P OCGL #### [address] [address] Platelet mean volume (Bld) [Entitic vol] 9.1 fL Low 9.4-12.4 [facility] Comment on above: Performed By: #### P OCGL #### [place] [address] RBC 2.52 mill/mm3 Low 4.70-6.10 [facility] Comment on above: Performed By: #### P OCGL #### [address] [address] RDW-SD 45.0 fL Normal 35.0-45.0 [facility] Comment on above: Performed By: #### P OCGL #### [address] [address] WBC 3.9 thou/mm3 Low 4.8-10.8 [facility] Comment on above: Performed By: #### P OCGL #### [address] [address] GFR, ESTIMATEDon 07-25-2022 GFR/1.73 sq M.predicted MDRD (S/P/Bld) [Vol rate/Area] 26 mL/min/{1.73_m2} Abnormal >60 [facility] Comment on above: Result Comment: Shayla atric calculator link https://www.kidney.org/professionals/kdoqi/gfr_calculatorped Effective Jan 08, 2022 These results are not intended for use in patients <18 years of age. eGFR results are calculated without a race factor using the 2020 CKD-EPI equation. Careful clinical correlation is recommended, particularly when comparing to results calculated using previous equations. The CKD-EPI equation is less accurate in patients with extremes of muscle mass, extra-renal metabolism of creatinine, excessive creatine ingestion, or following therapy that affects renal tubular secretion. Performed By: #### P OCGL #### [address] [address] GLUCOSE POCon 07-25-2022 Glucose [Mass/Vol] 342 mg/dL High [address] [place] [address] Comment on above: Performed By: #### P OCGL #### [address] [address] Glucose [Mass/Vol] 318 mg/dL [address] Comment on above: Performed By: #### P OCGL #### [address] [address] Glucose [Mass/Vol] 313 mg/dL [address] Comment on above: Performed By: #### P OCGL #### [address] [address] Glucose [Mass/Vol] 404 mg/dL [address] Comment on above: Performed By: #### P OCGL #### [address] [address] Glucose [Mass/Vol] 295 mg/dL [address] Comment on above: Performed By: #### P OCGL #### New [address] [address] Glucose [Mass/Vol] 334 mg/dL [address] Comment on above: Performed By: #### P OCGL #### [facility] [address] [place] [address] Glomerular Filtration Rate, Estimatedon 07-25-2022 GFR/1.73 sq M.predicted MDRD (S/P/Bld) [Vol rate/Area] 26 mL/min/{1.73_m2} Edwin - [facility] Comment on above: Pediatric calculator link https://www.kidney.org/professionals/kdoqi/gfr_calculatorped Effective Jan 08, 2022 These results are not intended for use in patients <18 years of age. eGFR results are calculated without a race factor using the 2020 CKD-EPI equation. Careful clinical correlation is recommended, particularly when comparing to results calculated using previous equations. The CKD-EPI equation is less accurate in patients with extremes of muscle mass, extra-renal metabolism of creatinine, excessive creatine ingestion, or following therapy that affects renal tubular secretion. Performed at [facility] [address] [place] [address] Glucose Auto test strip (Bld ) [Mass/Vol]on 07-25-2022 Glucose [Mass/Vol] 334 mg/dL High 70 - 108 mg/dl [facility] Comment on above: Performed at [facility] [address] [place] [address] Interpretation and review of laboratory results Abnormal [facility] Glucose [Mass/Vol] 342 mg/dL High 70 - 108 mg/dl [facility] Comment on above: Performed at [facility] [address] [place] [address] Interpretation and review of laboratory results Abnormal [facility] Glucose [Mass/Vol] 318 mg/dL High 70 - 108 mg/dl [facility] Comment on above: Performed at [facility] [address] [place] [address] Interpretation and review of laboratory results Abnormal [facility] Glucose [Mass/Vol] 313 mg/dL High 70 - 108 mg/dl [facility] Comment on above: Performed at [facility] [address] [place] [address] Interpretation and review of laboratory results Abnormal [facility] Glucose [Mass/Vol] 404 mg/dL High 70 - 108 mg/dl [facility] Comment on above: Performed at [facility] [address] [place] [address] Interpretation and review of laboratory results Abnormal [facility] Glucose [Mass/Vol] 295 mg/dL High 70 - 108 mg/dl [facility] Comment on above: Performed at [facility] [address] [place] [address] Interpretation and review of laboratory results Abnormal [facility] Glucose [Mass/Vol] 334 mg/dL High 70 - 108 mg/dl [facility] Comment on above: Performed at [facility] [address] [place] [address] Interpretation and review of laboratory results Abnormal [facility] No Panel Informationon 07-25 Interpretation and review of laboratory results Abnormal [facility] XR LUMBAR SPINE (2-3 VIEWS)o n 07-25-2022 Redemonstration of laminectomies at L2-S1 with posterior fusion without acute abnormality identified. This report has been created using voice recognition software. It may contain minor errors which are inherent in voice recognition technology. Final report electronically signed by Dr. Lalo Polanco DO, MD on 07/25/2022 3:57 PM [facility] Lalo Weinstein DO - 07/25/2022 PROCEDURE: XR LUMBAR SPINE (2-3 VIEWS) CLINICAL INFORMATION: s/p lumbar fusion, standing AP/lateral, COMPARISON: Postsurgical fluoroscopic images dated 07/20/2022. TECHNIQUE: AP and lateral views of the lumbar spine. FINDINGS: Redemonstration of laminectomies at L2-S1 with bilateral pedicle screws and sacroiliac anchors with interconnecting rods. There is no evidence of hardware failure. There is stable alignment. There is diffuse disc space narrowing and anterior osteophytosis throughout the lumbar spine, stable compared to prior exam. IMPRESSION: Redemonstration of laminectomies at L2-S1 with posterior fusion without acute abnormality identified. This report has been created using voice recognition software. It may contain minor errors which are inherent in voice recognition technology. Final report electronically signed by Dr. Lalo Polanco DO, MD on 07/25/2022 3:57 PM [facility] [employer] Work Phone: Radiology Study observation (narrative) [facility] [employer] Work Phone: XR LUMBAR SPINE (2-3 VIEWS)O rdered By: Lalo Polanco on 07-25-2022 [facility] Work Phone: ANION GAPon 07-24-2022 Anion gap [Moles/Vol] 12.0 mmol/L Normal 8.0-16.0 [facility] Comment on above: Result Comment: ANIO N GAP = Sodium -(Chloride + CO2) Performed By: #### P OCGL #### [facility] [address] [place] [address] Anion Gapon 07-24-2022 Anion gap [Moles/Vol] 12.0 mmol/L 8.0 - 16.0 meq/L [facility] Comment on above: ANION GAP = Sodium - (Chloride + CO2) Performed at [facility] [address] [place] [address] BASIC METABOL PANELon 2022 Calcium [Mass/Vol] 8.0 mg/dL Low 8.5-10.5 [facility] Comment on above: Performed By: #### C BCND, ANION, EGFR1, BMP #### [employer] [address] [place] [address] Chloride [Moles/Vol] 107 mmol/L Normal 98-111 [facility] Comment on above: Performed By: #### C BCND, ANION, EGFR1, BMP #### [employer] [address] [place] [address] CO2 [Moles/Vol] 18 mmol/L Low 23-33 [facility] Comment on above: Performed By: #### C BCND, ANION, EGFR1, BMP #### [facility] [address] [place] [address] Creatinine [Mass/Vol] 2.8 mg/dL High 0.4-1.2 [facility] Comment on above: Performed By: #### C BCND, ANION, EGFR1, BMP #### [facility] [address] [place] [address] Glucose [Mass/Vol] 188 mg/dL High 70-108 [facility] Comment on above: Performed By: #### C BCND, ANION, EGFR1, BMP #### [facility] [address] [place] [address] Potassium [Moles/Vol] 5.6 mmol/L High 3.5-5.2 [facility] Comment on above: Performed By: #### C BCND, ANION, EGFR1, BMP #### [facility] [address] [place] [address] Sodium [Moles/Vol] 137 mmol/L Normal 135-145 [facility] Comment on above: Performed By: #### C BCND, ANION, EGFR1, BMP #### [facility] [address] [place] [address] Urea nitrogen [Mass/Vol] 41 mg/dL High 7-22 [facility] Comment on above: Performed By: #### C BCND, ANION, EGFR1, BMP #### [facility] [address] [place] [address] Basic metabolic 2000 panelon 07-24-2022 Calcium [Mass/Vol] 8.0 mg/dL Low 8.5 - 10. 5 mg/dL [facility] Comment on above: Performed at [facility] Lab [address] [place] [address] Chloride [Moles/Vol] 107 mmol/L 98 - 11 1 meq/L [facility] CO2 [Moles/Vol] 18 mmol/L Low 23 - 33 meq/L [facility] Creatinine [Mass/Vol] 2.8 mg/dL High 0.4 - 1.2 mg/dL [facility] Glucose [Mass/Vol] 188 mg/dL High 70 - 108 mg/dL [facility] Potassium [Moles/Vol] 5.6 mmol/L High 3.5 - 5.2 meq/L [facility] Sodium [Moles/Vol] 137 mmol/L 135 - 145 meq/L [facility] Urea nitrogen [Mass/Vol] 41 mg/dL High 7 - 22 mg/dL [facility] CBCon 07-24-2022 Erythrocyte distribution width (RBC) [Entitic vol] 47.8 fL High 35.0 - 45.0 fL [facility] Erythrocyte distribution width (RBC) [Ratio] 13.9 % 11.5 - 14.5 % [facility] Hematocrit (Bld) [Volume fraction] 23.5 % Low 42.0 - 52.0 % [facility] Hemoglobin (Bld) [Mass/Vol] 7.4 g/dL Low [facility] Interpretation and review of laboratory results Abnormal [facility] MCH (RBC) [Entitic mass] 29.7 pg 26.0 - 33.0 pg [facility] MCHC (RBC) [Mass/Vol] 31.5 g/dL Low [facility] MCV (RBC) [Entitic vol] 94.4 fL High 80.0 - 94.0 fL [facility] Platelet mean volume (Bld) [Entitic vol] 8.9 fL Low 9.4 - 12.4 fL [facility] Comment on above: Performed at [facility] [address] [place] [address] Platelets (Bld) [#/Vol] 132 10*3/uL [facility] RBC (Bld) [#/Vol] 2.49 10*6/uL Low [facility] WBC (Bld) [#/Vol] 4.6 10*3/uL Low [facility] CBC NO DIFFERENTIALon 2022 Erythrocyte distribution width (RBC) [Ratio] 13.9 % Normal 11.5-14.5 [facility] Comment on above: Performed By: #### C BCND, ANION, EGFR1, BMP #### [facility] [address] [place] [address] Hematocrit (Bld) [Volume fraction] 23.5 % Low 42.0-52.0 [facility] Comment on above: Performed By: #### C BCND, ANION, EGFR1, BMP #### [facility] [employer] [facility] [address] [place] [address] Hemoglobin (Bld) [Mass/Vol] 7.4 g/dL Low 14.0-18.0 [facility] Comment on above: Performed By: #### C BCND, ANION, EGFR1, BMP #### [facility] [employer] [facility] [address] [place] [address] MCH (RBC) [Entitic mass] 29.7 pg Normal 26.0-33.0 [facility] Comment on above: Performed By: #### C BCND, ANION, EGFR1, BMP #### [facility] [address] [place] [address] MCHC (RBC) [Mass/Vol] 31.5 g/dL Low 32.2-35.5 [facility] Comment on above: Performed By: #### C BCND, ANION, EGFR1, BMP #### [facility] [address] [place] [address] MCV (RBC) [Entitic vol] 94.4 fL High 80.0-94.0 [facility] Comment on above: Performed By: #### C BCND, ANION, EGFR1, BMP #### [place] [address] PLATELET 132 thou/mm3 Normal 130-400 [facility] Comment on above: Performed By: #### C BCND, ANION, EGFR1, BMP #### [place] [address] Platelet mean volume (Bld) [Entitic vol] 8.9 fL Low 9.4-12.4 [facility] Comment on above: Performed By: #### C BCND, ANION, EGFR1, BMP #### [place] [address] RBC 2.49 mill/mm3 Low 4.70-6.10 [facility] Comment on above: Performed By: #### C BCND, ANION, EGFR1, BMP #### [facility] [place] [address] RDW-SD 47.8 fL High 35.0-45.0 [facility] Comment on above: Performed By: #### C BCND, ANION, EGFR1, BMP #### [facility] [employer] [facility] [address] [place] [address] WBC 4.6 thou/mm3 Low 4.8-10.8 [facility] Comment on above: Performed By: #### C BCND, ANION, EGFR1, BMP #### [place] [address] GFR, ESTIMATEDon 07-24-2022 GFR/1.73 sq M.predicted MDRD (S/P/Bld) [Vol rate/Area] 23 mL/min/{1.73_m2} Abnormal >60 [facility] Comment on above: Result Comment: Shayla ragland calculator link https://www.kidney.org/professionals/kdoqi/gfr_calculatorped Effective Jan 08, 2022 These results are not intended for use in patients <18 years of age. eGFR results are calculated without a race factor using the 2020 CKD-EPI equation. Careful clinical correlation is recommended, particularly when comparing to results calculated using previous equations. The CKD-EPI equation is less accurate in patients with extremes of muscle mass, extra-renal metabolism of creatinine, excessive creatine ingestion, or following therapy that affects renal tubular secretion. Performed By: #### P OCGL #### [facility] [address] [place] [address] GLUCOSE POCon 07-24-2022 Glucose [Mass/Vol] 374 mg/dL High [address] [facility] Comment on above: Performed By: #### P OCGL ####[facility] [address] [place] [address] Glucose [Mass/Vol] 392 mg/dL High [address] [facility] Comment on above: Performed By: #### H -A1C #### [facility] [address] [place] [address] Glucose [Mass/Vol] 391 mg/dL High [address] [facility] Comment on above: Performed By: #### P OCGL #### [facility] [address] [place] [address] Glucose [Mass/Vol] 225 mg/dL High 70-108 [facility] Comment on above: Performed By: #### P OCGL #### [facility] [address] [place] [address] Glomerular Filtration Rate, Estimatedon 07-24-2022 GFR/1.73 sq M.predicted MDRD (S/P/Bld) [Vol rate/Area] 23 mL/min/{1.73_m2} Abnormal - PINF [facility] Comment on above: Pediatric calculator link https://www.kidney.org/professionals/kdoqi/gfr_calculatorped Effective Jan 08, 2022 These results are not intended for use in patients <18 years of age. eGFR results are calculated without a race factor using the 2020 CKD-EPI equation. Careful clinical correlation is recommended, particularly when comparing to results calculated using previous equations. The CKD-EPI equation is less accurate in patients with extremes of muscle mass, extra-renal metabolism of creatinine, excessive creatine ingestion, or following therapy that affects renal tubular secretion. Performed at [facility] [employer] [facility] [address] [place] [address] Glucose Auto test strip (Bld ) [Mass/Vol]on 07-24-2022 Glucose [Mass/Vol] 374 mg/dL High 70 - 108 mg/dl [facility] Comment on above: Performed at [facility] [address] [place] [address] Interpretation and review of laboratory results Abnormal [facility] Glucose [Mass/Vol] 392 mg/dL High 70 - 108 mg/dl [facility] Comment on above: Performed at [facility] [address] [place] [address] Interpretation and review of laboratory results Abnormal [facility] Glucose [Mass/Vol] 391 mg/dL High 70 - 108 mg/dl [facility]CCross[facility] Comment on above: Performed at [facility] [address] [place] [address] Interpretation and review of laboratory results Abnormal [facility] Glucose [Mass/Vol] 225 mg/dL High 70 - 108 mg/dl [facility]CCross[facility] Comment on above: Performed at [facility] [facility] [address] [place] [address] Interpretation and review of laboratory results Abnormal [facility] No Panel Informationon 07-24 Interpretation and review of laboratory results Abnormal [facility] POTASSIUMon 07-24-2022 Potassium [Moles/Vol] 5.0 mmol/L Normal 3.5-5.2 [facility] Comment on above: Performed By: #### P OCGL #### [employer] [address] [place] [address] Potassiumon 07-24-2022 Potassium [Moles/Vol] 5.0 mmol/L 3.5 - 5.2 meq/L [facility] Comment on above: Performed at [facility] [employer] [facility] [address] [place] [address] Potassium [Moles/Vol]on 07-07 [facility] ANION GAPon 07-23-2022 Anion gap [Moles/Vol] 11.0 mmol/L Normal 8.0-16.0 [facility] Comment on above: Result Comment: ANIO N GAP = Sodium -(Chloride + CO2) Performed By: #### B MP, EGFR1, ANION, CBCND ####[facility] [address] [place] [address] Anion Gapon 07-23-2022 Anion gap [Moles/Vol] 11.0 mmol/L 8.0 - 16.0 meq/L [facility] Comment on above: ANION GAP = Sodium - (Chloride + CO2) Performed at [facility] [address] [place] [address] BASIC METABOL PANELon 2022 Calcium [Mass/Vol] 7.5 mg/dL Low 8.5-10.5 [facility] Comment on above: Performed By: #### B MP, EGFR1, ANION, CBCND ####[facility] [employer] [address] [place] [address] Chloride [Moles/Vol] 111 mmol/L Normal 98-111 [facility] Comment on above: Performed By: #### B MP, EGFR1, ANION, CBCND ####[facility] [employer] [address] [place] [address] CO2 [Moles/Vol] 19 mmol/L Low 23-33 [facility] Comment on above: Performed By: #### B MP, EGFR1, ANION, CBCND ####[facility] [employer] [address] [place] [address] Creatinine [Mass/Vol] 2.8 mg/dL High 0.4-1.2 [facility] Comment on above: Performed By: #### B MP, EGFR1, ANION, CBCND ####[facility] [employer] [address] [place] [address] Glucose [Mass/Vol] 113 mg/dL High 70-108 [facility] Comment on above: Performed By: #### B MP, EGFR1, ANION, CBCND ####[facility] [employer] [address] [place] [address] Potassium [Moles/Vol] 4.8 mmol/L Normal 3.5-5.2 [facility] Comment on above: Performed By: #### B MP, EGFR1, ANION, CBCND ####[facility] [address] [place] [address] Sodium [Moles/Vol] 141 mmol/L Normal 135-145 [facility] Comment on above: Performed By: #### B MP, EGFR1, ANION, CBCND ####[facility] [employer] [address] [place] [address] Urea nitrogen [Mass/Vol] 30 mg/dL High 7-22 [facility] Comment on above: Performed By: #### B MP, EGFR1, ANION, CBCND ####[facility] [employer] [address] [place] [address] Basic metabolic 2000 panelon 07-23-2022 Calcium [Mass/Vol] 7.5 mg/dL Low 8.5 - 10. 5 mg/dL [email or web address] Comment on above: Performed at [facility] [address] [place] [address] Chloride [Moles/Vol] 111 mmol/L 98 - 11 1 meq/L [employer] [facility] CO2 [Moles/Vol] 19 mmol/L Low 23 - 33 meq/L [facility] Creatinine [Mass/Vol] 2.8 mg/dL High 0.4 - 1.2 mg/dL [facility] Glucose [Mass/Vol] 113 mg/dL High 70 - 108 mg/dL [facility] Potassium [Moles/Vol] 4.8 mmol/L 3.5 - 5.2 meq/L [facility] Sodium [Moles/Vol] 141 mmol/L 135 - 145 meq/L [facility] Urea nitrogen [Mass/Vol] 30 mg/dL High 7 - 22 mg/dL [facility] CBCon 07-23-2022 Erythrocyte distribution width (RBC) [Entitic vol] 51.9 fL High 35.0 - 45.0 fL [facility] Erythrocyte distribution width (RBC) [Ratio] 15 % High 11.5 - 14.5 % [facility] Hematocrit (Bld) [Volume fraction] 23.2 % Low 42.0 - 52.0 % [facility] Hemoglobin (Bld) [Mass/Vol] 7.6 g/dL Low [facility] Interpretation and review of laboratory results Abnormal [facility] MCH (RBC) [Entitic mass] 31.4 pg 26.0 - 33.0 pg [facility] MCHC (RBC) [Mass/Vol] 32.8 g/dL [facility] MCV (RBC) [Entitic vol] 95.9 fL High 80.0 - 94.0 fL [facility] Platelet mean volume (Bld) [Entitic vol] 8.6 fL Low 9.4 - 12.4 fL [facility] Comment on above: Performed at [facility] [address] [place] [address] Platelets (Bld) [#/Vol] 128 10*3/uL Low [facility] RBC (Bld) [#/Vol] 2.42 10*6/uL Low [facility] WBC (Bld) [#/Vol] 6.7 10*3/uL [facility] CBC NO DIFFERENTIALon 2022 Erythrocyte distribution width (RBC) [Ratio] 15.0 % High 11.5-14.5 [facility] Comment on above: Performed By: #### P OCGL #### [employer] [address] [place] [address] Hematocrit (Bld) [Volume fraction] 23.2 % Low 42.0-52.0 [facility] Comment on above: Performed By: #### P OCGL #### [facility] [address] [place] [address] Hemoglobin (Bld) [Mass/Vol] 7.6 g/dL Low 14.0-18.0 [facility] Comment on above: Performed By: #### P OCGL #### [address] [address] MCH (RBC) [Entitic mass] 31.4 pg Normal 26.0-33.0 [facility] Comment on above: Performed By: #### P OCGL #### [address] [address] MCHC (RBC) [Mass/Vol] 32.8 g/dL Normal 32.2-35.5 [facility] Comment on above: Performed By: #### P OCGL #### [address] [address] MCV (RBC) [Entitic vol] 95.9 fL High 80.0-94.0 [facility] Comment on above: Performed By: #### P OCGL #### [address] [address] PLATELET 128 thou/mm3 Low 130-400 [facility] Comment on above: Performed By: #### P OCGL #### [address] [address] Platelet mean volume (Bld) [Entitic vol] 8.6 fL Low 9.4-12.4 [facility] Comment on above: Performed By: #### P OCGL #### [address] [address] RBC 2.42 mill/mm3 Low 4.70-6.10 [facility] Comment on above: Performed By: #### P OCGL #### [address] [address] RDW-SD 51.9 fL High 35.0-45.0 [facility] Comment on above: Performed By: #### P OCGL #### [address] [address] WBC 6.7 thou/mm3 Normal 4.8-10.8 [facility] Comment on above: Performed By: #### P OCGL #### [address] [address] [address] HEAD WO CONTRASTon 2022 No evidence of an acute process. This report has been created using voice recognition software. It may contain minor errors which are inherent in voice recognition technology. Final report electronically signed by Dr. Gissel Escobedo on 07/23/2022 1:23 PM [facility] Gissel Steinberg MD - 07/23/2022 PROCEDURE: CT HEAD WO CONTRAST CLINICAL INFORMATION: New onset deficits. COMPARISON: No prior study. TECHNIQUE: Noncontrast 2 mm axial images were obtained through the brain. Sagittal and coronal reconstructions were obtained. . All CT scans at this facility use dose modulation, iterative reconstruction, and/or weight-based dosing when appropriate to reduce radiation dose to as low as reasonably achievable. FINDINGS: There is no hemorrhage. There are no intra-or extra-axial collections. There is no hydrocephalus, midline shift or mass effect. The ann-white matter differentiation is preserved. There is mucosal thickening in the ethmoid air cells bilaterally. There is some mild mucosal thickening in both maxillary sinuses. There is no suspicious calvarial abnormality. IMPRESSION: No evidence of an acute process. This report has been created using voice recognition software. It may contain minor errors which are inherent in voice recognition technology. Final report electronically signed by Dr. Gissel Escobedo on 07/23/2022 1:23 PM [employer] Phone: Radiology Study observation (narrative) [employer] Phone: CT HEAD WO CONTRASTOrdered B y: Gissel Escobedo on 07-23-2022 [facility] [employer] Phone: GFR, ESTIMATEDon 07-23-2022 GFR/1.73 sq M.predicted MDRD (S/P/Bld) [Vol rate/Area] 23 mL/min/{1.73_m2} Abnormal >60 [facility] Comment on above: Result Comment: Shayla atric calculator link https://www.kidney.org/professionals/kdoqi/gfr_calculatorped Effective Jan 08, 2022 These results are not intended for use in patients <18 years of age. eGFR results are calculated without a race factor using the 2020 CKD-EPI equation. Careful clinical correlation is recommended, particularly when comparing to results calculated using previous equations. The CKD-EPI equation is less accurate in patients with extremes of muscle mass, extra-renal metabolism of creatinine, excessive creatine ingestion, or following therapy that affects renal tubular secretion. Performed By: #### B MP, EGFR1, ANION, CBCND ####[facility] [place] [address] GLUCOSE POCon 07-23-2022 Glucose [Mass/Vol] 163 mg/dL High 70-108 [facility] Comment on above: Performed By: #### P OCGL #### [address] [address] Glucose [Mass/Vol] 156 mg/dL High 70-108 [facility] Comment on above: Performed at [facility] [address] [place] [address] Performed By: #### P OCGL #### [address] [address] Glucose [Mass/Vol] 152 mg/dL High [address] [facility] Comment on above: Performed By: #### P OCGL #### [address] [address] Glucose [Mass/Vol] 151 mg/dL High [address] [facility] Comment on above: Performed By: #### P OCGL #### [facility] [address] [place] [address] Glucose [Mass/Vol] 120 mg/dL High [address] [facility] Comment on above: Performed By: #### P OCGL #### [address] [address] Gas panel (BldA)on 3 Arterial patency Wrist artery --pre arterial puncture Positive [email or web address] Base excess Calc (Bld) [Moles/Vol] -3.9000 mmol/L Low -2.5 - 2.5 mmol/l [email or web address] Body site L Brach [email or web address] CO2 (Bld) [Partial pressure] 42 mm[Hg] [email or web address] COLLECTED BY: [id number] [facility] Comment on above: Performed at [facility] [address] [place], [place] [id number] DEVICE Cannula [facility] HCO3 (Bld) [Moles/Vol] 22 mmol/L Low 23 - 28 mmol/l [facility] Interpretation and review of laboratory results Abnormal [facility] Oxygen (Bld) [Partial pressure] 99 mm[Hg] [facility] [employer] [facility] Oxygen/Inspired gas Respiratory system by O2 Analyzer --on ventilator 2 [facility] pH (Bld) 7.32 [pH] Low 7.35 - 7.45 [facility] [employer] [facility] Glomerular Filtration Rate, Estimatedon 07-23-2022 GFR/1.73 sq M.predicted MDRD (S/P/Bld) [Vol rate/Area] 23 mL/min/{1.73_m2} Abnormal - PINF [facility] Comment on above: Pediatric calculator link https://www.kidney.org/professionals/kdoqi/gfr_calculatorped Effective Jan 08, 2022 These results are not intended for use in patients <18 years of age. eGFR results are calculated without a race factor using the 2020 CKD-EPI equation. Careful clinical correlation is recommended, particularly when comparing to results calculated using previous equations. The CKD-EPI equation is less accurate in patients with extremes of muscle mass, extra-renal metabolism of creatinine, excessive creatine ingestion, or following therapy that affects renal tubular secretion. Performed at [facility] [address] [place] [address] Glucose Auto test strip (Bld ) [Mass/Vol]on 07-23-2022 Glucose [Mass/Vol] 163 mg/dL High 70 - 108 mg/dl [facility] Comment on above: Performed at [facility] [address] [place] [address] Interpretation and review of laboratory results Abnormal [facility] [employer] [facility] Glucose [Mass/Vol] 152 mg/dL High 70 - 108 mg/dl [facility]ITALNetviewerSAMARIT[facility] Comment on above: Performed at [facility] [address] [place] [address] Interpretation and review of laboratory results Abnormal [facility] Glucose [Mass/Vol] 151 mg/dL High 70 - 108 mg/dl [facility] Comment on above: Performed at [facility] [address] [place] [address] Interpretation and review of laboratory results Abnormal [facility] Glucose [Mass/Vol] 120 mg/dL High 70 - 108 mg/dl [facility] Comment on above: Performed at [facility] [address] [place] [address] Interpretation and review of laboratory results Abnormal [facility] ISTAT BLOOD GASon 07-23-2022 STEVE'S TEST Positive Normal [facility] Comment on above: Performed By: #### P OCGL #### [employer] [address] [place] [address] BASE EXCESS -3.9 mmol/l Low -2.5-2.5 [facility] Comment on above: Performed By: #### P OCGL #### [employer] [address] [place] [address] COLLECTED BY [id number] [facility] Comment on above: Performed By: #### P OCGL #### [employer] [address] [place] [address] DEVICE Cannula [facility] Comment on above: Performed By: #### P OCGL #### [facility] [address] [place] [address] FIO2 2 [facility] Comment on above: Performed By: #### P OCGL #### [facility] [address] [place] [address] HCO3 (Bld) [Moles/Vol] 22 mmol/L Low 23-28 [facility] Comment on above: Performed By: #### P OCGL #### [employer] [address] [place] [address] Oxygen (Bld) [Partial pressure] 99 mm[Hg] Normal 71-104 [facility] Comment on above: Performed By: #### P OCGL #### [employer] [address] [place] [address] Oxygen saturation in Blood 97 % Normal [facility] Comment on above: Performed By: #### P OCGL #### [employer] [address] [place] [address] PCO2 42 mmhg Normal 35-45 [facility] Comment on above: Performed By: #### P OCGL #### [facility] [address] [place] [address] pH (Bld) 7.32 [pH] Low 7.35-7.45 [facility] Comment on above: Performed By: #### P OCGL #### [facility] [address] [place] [address] SITE L Brach Normal [facility] Comment on above: Performed By: #### P OCGL #### [facility] [address] [place] [address] No Panel Informationon 07-23 Interpretation and review of laboratory results Abnormal [facility] URINALYSIS W/ MICROon 2022 CASTS >15 C.GRAN Normal NONE SEEN [facility] Comment on above: Performed By: #### P OCGL #### [employer] [address] [address] CASTS 2 0-4 FINE GRAN Normal [facility] Comment on above: Performed By: #### P OCGL #### [employer] [address] [place] [address] MISCELLANEOUS see below Normal [facility] Comment on above: Result Comment: See Below 0-4 HYALINE CASTS Performed By: #### P OCGL #### [employer] [address] [place] [address] MUCOUS THREADS Normal NONE SEEN/THREA [facility] Comment on above: Performed By: #### P OCGL #### [employer] [address] [place] [address] RBC 10-15 Normal 0-2/hpf [facility] Comment on above: Performed By: #### P OCGL #### [employer] [address] [place] [address] RENAL EPITHELIAL 3-5 Normal NONE SEEN [facility] Comment on above: Performed By: #### P OCGL #### [employer] [address] [place] [address] WBC 15-25 Normal 0-4/hpf [facility] Comment on above: Performed By: #### P OCGL #### [facility] [address] [place] [address] BACTERIA NONE SEEN Normal FEW/NONE SEEN [facility] Comment on above: Performed By: #### P OCGL #### [facility] [address] [place] [address] Crystals LM Nom (Urine sed) NONE SEEN Normal NONE SEEN [facility] Comment on above: Performed By: #### P OCGL #### [facility] [address] [facility] [place] [address] EPITHELIAL 25-50 Normal 3-5/hpf [facility] Comment on above: Performed By: #### P OCGL #### [facility] [address] [place] [address] MISCELLANEOUS 2 NONE SEEN Normal [facility] Comment on above: Performed By: #### P OCGL #### [facility] [address] [place] [address] YEAST NONE SEEN Normal NONE SEEN [facility] Comment on above: Performed By: #### P OCGL #### [facility] [address] [place] [address] Bilirubin Ql (U) Negative Normal NEGATIVE [facility] Comment on above: Performed By: #### P OCGL #### [facility] [address] [place] [address] CHARACTER TURBID Abnormal CLR-SL.CLOUD [facility] Comment on above: Performed By: #### P OCGL #### [facility] [address] [place] [address] Color (U) YELLOW Normal YELLOW-STRAW [facility] Comment on above: Performed By: #### P OCGL #### [facility] [address] [facility] [place] [address] Glucose Ql (U) 100 mg/dl Abnormal NEGATIVE [facility] Comment on above: Performed By: #### P OCGL #### [facility] [address] [place] [address] Hemoglobin Ql (U) MODERATE Abnormal NEGATIVE [facility] Comment on above: Performed By: #### P OCGL #### [facility] [address] [place] [address] Ketones Ql (U) Negative Normal NEGATIVE [facility] Comment on above: Performed By: #### P OCGL #### [facility] [address] [place] [address] LEUKOCYTES Negative Normal NEGATIVE [facility] Comment on above: Performed By: #### P OCGL #### [place] [address] Nitrite Ql (U) Negative Normal NEGATIVE [facility] Comment on above: Performed By: #### P OCGL #### [place] [address] pH (U) 5.0 [pH] Normal 5.0 - 9.0 [facility] Comment on above: Performed By: #### P OCGL #### [place] [address] Protein Ql (U) >= 300 Abnormal NEGATIVE [facility] Comment on above: Performed By: #### P OCGL #### [place] [address] Specific gravity (U) [Rel density] 1.018 Normal 1.002-1.030 [facility] Comment on above: Performed By: #### P OCGL #### [place] [address] Urobilinogen Qn (U) 0.2 {Stevie'U}/dL Normal 0.0 - 1. 0 [facility] Comment on above: Performed By: #### P OCGL #### [place] [address] Urinalysis dipstick W Reflex Microscopic panel (U)on 07-23-2022 Bacteria, UA NONE SEEN FEW/NONE SEEN [facility] Bilirubin Ql (U) Negative NEGATIVE [facility] Casts LM.LPF (Urine sed) [#/Area] >15 C.GRAN NONE SEEN /lpf [facility] Casts LM.LPF (Urine sed) [#/Area] 0-4 FINE GRAN /lpf [facility] Character (U) TURBID Abnormal CLR-SL.CLOUD [facility] Charcoal LM Ql (Urine sed) NONE SEEN [facility] Comment on above: Performed at [facility] [address] [place] [address] Color (U) YELLOW YELLOW-STRAW [facility] Crystals LM Ql (Urine sed) NONE SEEN NONE SEEN [facility] Epithelial Cells, UA 25-50 3-5/hpf /hpf [facility] Epithelial cells.renal LM.HPF (Urine sed) [#/Area] 3-5 NONE SEEN [facility] Fungi.yeastlike LM Ql (Urine sed) NONE SEEN NONE SEEN [facility] Glucose Auto test strip Ql (U) 100 mg/dl Abnormal NEGATIVE [facility] Hemoglobin Auto test strip Ql (U) MODERATE Abnormal NEGATIVE [facility] Interpretation and review of laboratory results Abnormal [facility] Ketones Auto test strip Ql (U) Negative NEGATIVE [facility] Leukocyte esterase Auto test strip Ql (U) Negative NEGATIVE [facility] Miscellaneous Lab Test Result see below [facility] Comment on above: See Below 0-4 HYALINE CASTS Mucus Ql (Urine sed) THREADS NONE SEEN/THREA [facility] Nitrite Auto test strip Ql (U) Negative NEGATIVE [facility] pH (U) 5.0 [pH] 5.0 - 9.0 [facility] Protein (U) [Mass/Vol] mg/dL Abnormal NEGAT AMADA mg/dl [facility] RBC LM.HPF (Urine sed) [#/Area] 10-15 0-2/hpf /hpf [facility] Specific gravity Refractometry automated (U) [Rel density] 1.018 1.002 - 1.030 [facility] Urobilinogen Ql (U) 0.2 [facility] WBC LM.HPF (Urine sed) [#/Area] 15-25 0-4/hpf /hpf [facility] VL DUP LOWER EXTREMITY VENOU S BILATERALon 07-23-2022 No evidence of a DVT. This report has been created using voice recognition software. It may contain minor errors which are inherent in voice recognition technology. Final report electronically signed by Dr Héctor Mcdonnell on 07/23/2022 5:19 PM [facility] Héctor Borges MD - 07/23/2022 PROCEDURE: VL DUP LOWER EXTREMITY VENOUS BILATERAL CLINICAL INFORMATION: 72-year-old male with right lateral lower extremity edema. Recent back surgery. COMPARISON: No prior study. TECHNIQUE: Venous doppler ultrasound was performed of the bilateral lower extremities using ann scale, color flow and spectral doppler imaging. FINDINGS: There is normal color flow, spectral analysis and compressibility of the common femoral vein, superficial femoral vein and popliteal vein bilaterally . There is normal color flow and compressibility in the posterior tibial veins, anterior tibial veins and peroneal veins. IMPRESSION: No evidence of a DVT. This report has been created using voice recognition software. It may contain minor errors which are inherent in voice recognition technology. Final report electronically signed by Dr Héctor Mcdonnell on 07/23/2022 5:19 PM [email or web address] Work Phone: Radiology Study observation (narrative) [employer] Phone: VL DUP LOWER EXTREMITY VENOU S BILATERALOrdered By: Héctor Mcdonnell on 07-23-2022 [facility] [email or web address] AMMONIAon 07-22-2022 Ammonia (P) [Moles/Vol] 36 umol/L Normal 11-60 [facility] Comment on above: Performed By: #### P OCGL #### [employer] [address] [place] [address] ANION GAPon 07-22-2022 Anion gap [Moles/Vol] 12.0 mmol/L Normal 8.0-16.0 [facility] Comment on above: Result Comment: ANIO N GAP = Sodium -(Chloride + CO2) Performed By: #### P OCGL #### [facility] [address] [place] [address] Anion gap [Moles/Vol] 10.0 mmol/L Normal 8.0-16.0 [facility] Comment on above: Result Comment: ANIO N GAP = Sodium -(Chloride + CO2) Performed By: #### P OCGL #### [employer] [facility] [address] [place] [address] Ammonia (P) [Mass/Vol]on Ammonia (P) [Moles/Vol] 36 umol/L 11 - 60 umol/L [facility] Comment on above: Performed at [facility] [address] [place], [place] [address] [place] [address] Anion Gapon 07-22-2022 Anion gap [Moles/Vol] 12.0 mmol/L 8.0 - 16.0 meq/L [facility] Comment on above: ANION GAP = Sodium - (Chloride + CO2) Performed at [facility] [address] [place] [address] Anion gap [Moles/Vol] 10.0 mmol/L 8.0 - 16.0 meq/L [facility] Comment on above: ANION GAP = Sodium - (Chloride + CO2) Performed at [facility] [address] [place] [address] BASIC METABOL PANELon 2022 Calcium [Mass/Vol] 7.5 mg/dL Low 8.5-10.5 [facility] Comment on above: Performed By: #### P OCGL #### [employer] [facility] [address] [place] [address] Chloride [Moles/Vol] 109 mmol/L Normal 98-111 [facility] Comment on above: Performed By: #### P OCGL #### [facility] [address] [place] [address] CO2 [Moles/Vol] 18 mmol/L Low 23-33 [facility] Comment on above: Performed By: #### P OCGL #### [facility] [address] [place] [address] Creatinine [Mass/Vol] 2.4 mg/dL High 0.4-1.2 [facility] Comment on above: Performed By: #### P OCGL #### [employer] [facility] [address] [place] [address] Glucose [Mass/Vol] 167 mg/dL High 70-108 [facility] Comment on above: Performed By: #### P OCGL #### [employer] [facility] [address] [place] [address] Potassium [Moles/Vol] 4.7 mmol/L Normal 3.5-5.2 [facility] Comment on above: Performed By: #### P OCGL #### [facility] [address] [place] [address] Sodium [Moles/Vol] 139 mmol/L Normal 135-145 [facility] Comment on above: Performed By: #### P OCGL #### [facility] [address] [place] [address] Urea nitrogen [Mass/Vol] 25 mg/dL High 7-22 [facility] Comment on above: Performed By: #### P OCGL #### [facility] [address] [place] [address] Calcium [Mass/Vol] 6.9 mg/dL Low 8.5-10.5 [facility] Comment on above: Performed By: #### P OCGL #### [facility] [address] [place] [address] Chloride [Moles/Vol] 111 mmol/L Normal 98-111 [facility] Comment on above: Performed By: #### P OCGL #### [facility] [address] [place] [address] CO2 [Moles/Vol] 18 mmol/L Low 23-33 [facility] Comment on above: Performed By: #### P OCGL #### [facility] [address] [place] [address] Creatinine [Mass/Vol] 2.4 mg/dL High 0.4-1.2 [facility] Comment on above: Performed By: #### P OCGL #### [facility] [address] [place] [address] Glucose [Mass/Vol] 119 mg/dL High 70-108 [facility] Comment on above: Performed By: #### P OCGL #### [facility] [address] [place] [address] Potassium [Moles/Vol] 4.5 mmol/L Normal 3.5-5.2 [facility] Comment on above: Performed By: #### P OCGL #### [facility] [address] [place] [address] Sodium [Moles/Vol] 139 mmol/L Normal 135-145 [facility] Comment on above: Performed By: #### P OCGL #### [facility] [address] [place] [address] Urea nitrogen [Mass/Vol] 23 mg/dL High 7-22 [facility] Comment on above: Performed By: #### P OCGL #### [facility] [address] [place] [address] Basic metabolic 2000 panelon 07-22-2022 Calcium [Mass/Vol] 7.5 mg/dL Low 8.5 - 10. 5 mg/dL [employer] [facility] Comment on above: Performed at [facility] [address] [place] [address] Chloride [Moles/Vol] 109 mmol/L 98 - 11 1 meq/L [facility] [facility] CO2 [Moles/Vol] 18 mmol/L Low 23 - 33 meq/L [facility] [facility] Creatinine [Mass/Vol] 2.4 mg/dL High 0.4 - 1.2 mg/dL [facility] Glucose [Mass/Vol] 167 mg/dL High 70 - 108 mg/dL [facility] Potassium [Moles/Vol] 4.7 mmol/L 3.5 - 5.2 meq/L [facility] Sodium [Moles/Vol] 139 mmol/L 135 - 145 meq/L [facility] Urea nitrogen [Mass/Vol] 25 mg/dL High 7 - 22 mg/dL [facility] Calcium [Mass/Vol] 6.9 mg/dL Low 8.5 - 10. 5 mg/dL [facility] Comment on above: Performed at [facility] [employer] [facility] [address] [place] [address] Chloride [Moles/Vol] 111 mmol/L 98 - 11 1 meq/L [facility] CO2 [Moles/Vol] 18 mmol/L Low 23 - 33 meq/L [facility] Creatinine [Mass/Vol] 2.4 mg/dL High 0.4 - 1.2 mg/dL [facility] Glucose [Mass/Vol] 119 mg/dL High 70 - 108 mg/dL [facility] Potassium [Moles/Vol] 4.5 mmol/L 3.5 - 5.2 meq/L [facility] Sodium [Moles/Vol] 139 mmol/L 135 - 145 meq/L [facility] Urea nitrogen [Mass/Vol] 23 mg/dL High 7 - 22 mg/dL [facility] CBCon 07-22-2022 Erythrocyte distribution width (RBC) [Entitic vol] 54.9 fL High 35.0 - 45.0 fL [facility] Erythrocyte distribution width (RBC) [Ratio] 15.3 % High 11.5 - 14.5 % [facility] Hematocrit (Bld) [Volume fraction] 26.8 % Low 42.0 - 52.0 % [facility] Hemoglobin (Bld) [Mass/Vol] 8.1 g/dL Low [facility] Interpretation and review of laboratory results Abnormal [facility] MCH (RBC) [Entitic mass] 29.9 pg 26.0 - 33.0 pg [facility] MCHC (RBC) [Mass/Vol] 30.2 g/dL Low [facility] MCV (RBC) [Entitic vol] 98.9 fL High 80.0 - 94.0 fL [facility] Platelet mean volume (Bld) [Entitic vol] 8.9 fL Low 9.4 - 12.4 fL [facility] Comment on above: Performed at [facility] [address] [place] [address] Platelets (Bld) [#/Vol] 157 10*3/uL [facility] RBC (Bld) [#/Vol] 2.71 10*6/uL Low [facility] WBC (Bld) [#/Vol] 8.0 10*3/uL [facility] Erythrocyte distribution width (RBC) [Entitic vol] 54.4 fL High 35.0 - 45.0 fL [facility] Erythrocyte distribution width (RBC) [Ratio] 15.1 % High 11.5 - 14.5 % [facility] Hematocrit (Bld) [Volume fraction] 26.2 % Low 42.0 - 52.0 % [facility] Hemoglobin (Bld) [Mass/Vol] 8.0 g/dL Low [facility] Interpretation and review of laboratory results Abnormal [facility] MCH (RBC) [Entitic mass] 30.4 pg 26.0 - 33.0 pg [facility] MCHC (RBC) [Mass/Vol] 30.5 g/dL Low [facility] MCV (RBC) [Entitic vol] 99.6 fL High 80.0 - 94.0 fL [facility] Platelet mean volume (Bld) [Entitic vol] 8.8 fL Low 9.4 - 12.4 fL [facility] Comment on above: Performed at [facility] [address] [place] [address] Platelets (Bld) [#/Vol] 137 10*3/uL [facility] RBC (Bld) [#/Vol] 2.63 10*6/uL Low [facility] WBC (Bld) [#/Vol] 7.2 10*3/uL [facility] CBC NO DIFFERENTIALon 2022 Erythrocyte distribution width (RBC) [Ratio] 15.3 % High 11.5-14.5 [facility] Comment on above: Performed By: #### P OCGL #### [facility] [employer] [address] [place] [address] Hematocrit (Bld) [Volume fraction] 26.8 % Low 42.0-52.0 [facility] Comment on above: Performed By: #### P OCGL #### [facility] [employer] [address] [place] [address] Hemoglobin (Bld) [Mass/Vol] 8.1 g/dL Low 14.0-18.0 [facility] Comment on above: Performed By: #### P OCGL #### [facility] [employer] [address] [place] [address] MCH (RBC) [Entitic mass] 29.9 pg Normal 26.0-33.0 [facility] Comment on above: Performed By: #### P OCGL #### [address] [address] MCHC (RBC) [Mass/Vol] 30.2 g/dL Low 32.2-35.5 [facility] Comment on above: Performed By: #### P OCGL #### [address] [address] MCV (RBC) [Entitic vol] 98.9 fL High 80.0-94.0 [facility] Comment on above: Performed By: #### P OCGL #### [address] [address] PLATELET 157 thou/mm3 Normal 130-400 [facility] Comment on above: Performed By: #### P OCGL #### [address] [address] Platelet mean volume (Bld) [Entitic vol] 8.9 fL Low 9.4-12.4 [facility] Comment on above: Performed By: #### P OCGL #### [address] [address] RBC 2.71 mill/mm3 Low 4.70-6.10 [facility] Comment on above: Performed By: #### P OCGL #### [address] [address] RDW-SD 54.9 fL High 35.0-45.0 [facility] Comment on above: Performed By: #### P OCGL #### [address] [address] WBC 8.0 thou/mm3 Normal 4.8-10.8 [facility] Comment on above: Performed By: #### P OCGL #### [address] [address] Erythrocyte distribution width (RBC) [Ratio] 15.1 % High 11.5-14.5 [facility] Comment on above: Performed By: #### P OCGL #### [address] [address] Hematocrit (Bld) [Volume fraction] 26.2 % Low 42.0-52.0 [facility] Comment on above: Performed By: #### P OCGL #### [address] [address] Hemoglobin (Bld) [Mass/Vol] 8.0 g/dL Low 14.0-18.0 [facility] Comment on above: Performed By: #### P OCGL #### [address] [address] MCH (RBC) [Entitic mass] 30.4 pg Normal 26.0-33.0 [facility] Comment on above: Performed By: #### P OCGL #### [address] [address] MCHC (RBC) [Mass/Vol] 30.5 g/dL Low 32.2-35.5 [facility] Comment on above: Performed By: #### P OCGL #### [address] [address] MCV (RBC) [Entitic vol] 99.6 fL High 80.0-94.0 [facility] Comment on above: Performed By: #### P OCGL #### [address] [address] PLATELET 137 thou/mm3 Normal 130-400 [facility] Comment on above: Performed By: #### P OCGL #### [address] [address] Platelet mean volume (Bld) [Entitic vol] 8.8 fL Low 9.4-12.4 [facility] Comment on above: Performed By: #### P OCGL #### [address] [address] RBC 2.63 mill/mm3 Low 4.70-6.10 [facility] Comment on above: Performed By: #### P OCGL #### [address] [address] RDW-SD 54.4 fL High 35.0-45.0 [facility] Comment on above: Performed By: #### P OCGL #### [address] [place] [address] WBC 7.2 thou/mm3 Normal 4.8-10.8 [facility] Comment on above: Performed By: #### P OCGL #### [address] [address] GFR, ESTIMATEDon 07-22-2022 GFR/1.73 sq M.predicted MDRD (S/P/Bld) [Vol rate/Area] 28 mL/min/{1.73_m2} Abnormal >60 [facility] Comment on above: Result Comment: Pedi atric calculator link https://www.kidney.org/professionals/kdoqi/gfr_calculatorped Effective Jan 08, 2022 These results are not intended for use in patients <18 years of age. eGFR results are calculated without a race factor using the 2020 CKD-EPI equation. Careful clinical correlation is recommended, particularly when comparing to results calculated using previous equations. The CKD-EPI equation is less accurate in patients with extremes of muscle mass, extra-renal metabolism of creatinine, excessive creatine ingestion, or following therapy that affects renal tubular secretion. Performed By: #### P OCGL #### [address] [address] GFR/1.73 sq M.predicted MDRD (S/P/Bld) [Vol rate/Area] 28 mL/min/{1.73_m2} Abnormal >60 [facility] Comment on above: Result Comment: Pedi atric calculator link https://www.kidney.org/professionals/kdoqi/gfr_calculatorped Effective Jan 08, 2022 These results are not intended for use in patients <18 years of age. eGFR results are calculated without a race factor using the 1 CKD-EPI equation. Careful clinical correlation is recommended, particularly when comparing to results calculated using previous equations. The CKD-EPI equation is less accurate in patients with extremes of muscle mass, extra-renal metabolism of creatinine, excessive creatine ingestion, or following therapy that affects renal tubular secretion. Performed By: #### P OCGL #### [address] [address] GLUCOSE POCon 07-22-2022 Glucose [Mass/Vol] 213 mg/dL High 70-108 [facility] Comment on above: Performed By: #### P OCGL #### [facility] [address] [place] [address] Glucose [Mass/Vol] 126 mg/dL High 70-108 [facility] Comment on above: Performed By: #### P OCGL #### [facility] [address] [place] [address] Glucose [Mass/Vol] 132 mg/dL High 70-108 [facility] Comment on above: Performed By: #### P OCGL #### [facility] [address] [place] [address] Glucose [Mass/Vol] 128 mg/dL High 70-108 [facility] Comment on above: Performed By: #### P OCGL ####[facility] [address] [place] [address] Glomerular Filtration Rate, Estimatedon 07-22-2022 GFR/1.73 sq M.predicted MDRD (S/P/Bld) [Vol rate/Area] 28 mL/min/{1.73_m2} Abnormal - PINF [facility] Comment on above: Pediatric calculator link https://www.kidney.org/professionals/kdoqi/gfr_calculatorped Effective Jan 08, 2022 These results are not intended for use in patients <18 years of age. eGFR results are calculated without a race factor using the 2020 CKD-EPI equation. Careful clinical correlation is recommended, particularly when comparing to results calculated using previous equations. The CKD-EPI equation is less accurate in patients with extremes of muscle mass, extra-renal metabolism of creatinine, excessive creatine ingestion, or following therapy that affects renal tubular secretion. Performed at [facility] [address] [place] [address] GFR/1.73 sq M.predicted MDRD (S/P/Bld) [Vol rate/Area] 28 mL/min/{1.73_m2} Abnormal - PINF [facility] Comment on above: Pediatric calculator link https://www.kidney.org/professionals/kdoqi/gfr_calculatorped Effective Jan 08, 2022 These results are not intended for use in patients <18 years of age. eGFR results are calculated without a race factor using the 2020 CKD-EPI equation. Careful clinical correlation is recommended, particularly when comparing to results calculated using previous equations. The CKD-EPI equation is less accurate in patients with extremes of muscle mass, extra-renal metabolism of creatinine, excessive creatine ingestion, or following therapy that affects renal tubular secretion. Performed at [facility] [address] [place] [address] Glucose Auto test strip (Bld ) [Mass/Vol]on 07-22-2022 Glucose [Mass/Vol] 213 mg/dL High 70 - 108 mg/dl [facility] Comment on above: Performed at [facility] [address] [place] [address] Interpretation and review of laboratory results Abnormal [facility] Glucose [Mass/Vol] 126 mg/dL High 70 - 108 mg/dl [facility] Comment on above: Performed at [facility] [address] [place] [address] Interpretation and review of laboratory results Abnormal [facility] Glucose [Mass/Vol] 132 mg/dL High 70 - 108 mg/dl [facility] Comment on above: Performed at [facility] [address] [place] [address] Interpretation and review of laboratory results Abnormal [facility] Glucose [Mass/Vol] 128 mg/dL High 70 - 108 mg/dl [facility] Comment on above: Performed at [facility] [address] [place] [address] Interpretation and review of laboratory results Abnormal [facility] No Panel Informationon 07-22 Interpretation and review of laboratory results Abnormal [facility] Interpretation and review of laboratory results Abnormal [facility] ANION GAPon 07-21-2022 Anion gap [Moles/Vol] 15.0 mmol/L Normal 8.0-16.0 [facility] Comment on above: Result Comment: ANIO N GAP = Sodium -(Chloride + CO2) Performed By: #### P OCGL #### [facility] [address] [place] [address] Anion Gapon 07-21-2022 Anion gap [Moles/Vol] 15.0 mmol/L 8.0 - 16.0 meq/L [facility] Comment on above: ANION GAP = Sodium - (Chloride + CO2) Performed at [facility] [address] [place] [address] BASIC METABOL PANELon 2022 Calcium [Mass/Vol] 6.7 mg/dL Low 8.5-10.5 [facility] Comment on above: Performed By: #### P OCGL #### [facility] [address] [address] Chloride [Moles/Vol] 108 mmol/L Normal 98-111 [facility] Comment on above: Performed By: #### P OCGL #### [facility] [address] [place] [address] CO2 [Moles/Vol] 18 mmol/L Low 23-33 [facility] Comment on above: Performed By: #### P OCGL #### [address] [address] Creatinine [Mass/Vol] 2.0 mg/dL High 0.4-1.2 [facility] Comment on above: Performed By: #### P OCGL #### [address] [address] Glucose [Mass/Vol] 113 mg/dL High 70-108 [facility] Comment on above: Performed By: #### P OCGL #### [address] [address] Potassium [Moles/Vol] 4.8 mmol/L Normal 3.5-5.2 [facility] Comment on above: Result Comment: Low level specimen hemolysis is present as indicated by the interference level index on the Cassidy analyzer. The reported K+ level may be falsely increased. If clinically warranted, recollection of the specimen is suggested. Performed By: #### P OCGL #### [address] [address] Sodium [Moles/Vol] 141 mmol/L Normal 135-145 [facility] Comment on above: Performed By: #### P OCGL #### [address] [address] Urea nitrogen [Mass/Vol] 26 mg/dL High 7-22 [facility] Comment on above: Performed By: #### P OCGL #### [facility] [address] [place] [address] Basic metabolic 2000 panelon 07-21-2022 Calcium [Mass/Vol] 6.7 mg/dL Low 8.5 - 10. 5 mg/dL [facility] Comment on above: Performed at [facility] [address] [place] [address] Chloride [Moles/Vol] 108 mmol/L 98 - 11 1 meq/L [facility] CO2 [Moles/Vol] 18 mmol/L Low 23 - 33 meq/L [facility] Creatinine [Mass/Vol] 2 mg/dL High 0.4 - 1.2 mg/dL [facility] Glucose [Mass/Vol] 113 mg/dL High 70 - 108 mg/dL [facility] Potassium [Moles/Vol] 4.8 mmol/L 3.5 - 5.2 meq/L [facility] Comment on above: Low level specimen h emolysis is present as indicated by the interference level index on the Cassidy analyzer. The reported K+ level may be falsely increased. If clinically warranted, recollection of the specimen is suggested. Sodium [Moles/Vol] 141 mmol/L 135 - 145 meq/L [facility] Urea nitrogen [Mass/Vol] 26 mg/dL High 7 - 22 mg/dL [facility] CBCon 07-21-2022 Erythrocyte distribution width (RBC) [Entitic vol] 52.2 fL High 35.0 - 45.0 fL [facility] Erythrocyte distribution width (RBC) [Ratio] 14.9 % High 11.5 - 14.5 % [facility] Hematocrit (Bld) [Volume fraction] 27.2 % Low 42.0 - 52.0 % [facility] Hemoglobin (Bld) [Mass/Vol] 8.7 g/dL Low [facility] Interpretation and review of laboratory results Abnormal [facility] MCH (RBC) [Entitic mass] 30.7 pg 26.0 - 33.0 pg [facility] MCHC (RBC) [Mass/Vol] 32.0 g/dL Low [facility] MCV (RBC) [Entitic vol] 96.1 fL High 80.0 - 94.0 fL [facility] Platelet mean volume (Bld) [Entitic vol] 9.1 fL Low 9.4 - 12.4 fL [facility] Comment on above: Performed at [facility] [address] [place] [address] Platelets (Bld) [#/Vol] 158 10*3/uL [facility] RBC (Bld) [#/Vol] 2.83 10*6/uL Low [facility] WBC (Bld[facility] [#/Vol] 6.8 10*3/uL [facility] CBC NO DIFFERENTIALon 2022 Erythrocyte distribution width (RBC) [Ratio] 14.9 % High 11.5-14.5 [facility] Comment on above: Performed By: #### P OCGL #### [employer] [address] [place] [address] Hematocrit (Bld) [Volume fraction] 27.2 % Low 42.0-52.0 [facility] Comment on above: Performed By: #### P OCGL #### [employer] [address] [place] [address] Hemoglobin (Bld) [Mass/Vol] 8.7 g/dL Low 14.0-18.0 [facility] Comment on above: Performed By: #### P OCGL #### [employer] [address] [place] [address] MCH (RBC) [Entitic mass] 30.7 pg Normal 26.0-33.0 [facility] Comment on above: Performed By: #### P OCGL #### [facility] [address] [place] [address] MCHC (RBC) [Mass/Vol] 32.0 g/dL Low 32.2-35.5 [facility] Comment on above: Performed By: #### P OCGL #### [facility] [address] [place] [address] MCV (RBC) [Entitic vol] 96.1 fL High 80.0-94.0 [facility] Comment on above: Performed By: #### P OCGL #### [facility] [address] [place] [address] PLATELET 158 thou/mm3 Normal 130-400 [facility] Comment on above: Performed By: #### P OCGL #### [address] [address] Platelet mean volume (Bld) [Entitic vol] 9.1 fL Low 9.4-12.4 [facility] Comment on above: Performed By: #### P OCGL #### [address] [address] RBC 2.83 mill/mm3 Low 4.70-6.10 [facility] Comment on above: Performed By: #### P OCGL #### [address] [address] RDW-SD 52.2 fL High 35.0-45.0 [facility] Comment on above: Performed By: #### P OCGL #### [address] [address] WBC 6.8 thou/mm3 Normal 4.8-10.8 [facility] Comment on above: Performed By: #### P OCGL #### [address] [address] GFR, ESTIMATEDon 07-21-2022 GFR/1.73 sq M.predicted MDRD (S/P/Bld) [Vol rate/Area] 35 mL/min/{1.73_m2} Abnormal >60 [facility] Comment on above: Result Comment: Pedi atric calculator link https://www.kidney.org/professionals/kdoqi/gfr_calculatorped Effective Jan 08, 2022 These results are not intended for use in patients <18 years of age. eGFR results are calculated without a race factor using the 2020 CKD-EPI equation. Careful clinical correlation is recommended, particularly when comparing to results calculated using previous equations. The CKD-EPI equation is less accurate in patients with extremes of muscle mass, extra-renal metabolism of creatinine, excessive creatine ingestion, or following therapy that affects renal tubular secretion. Performed By: #### P OCGL #### [facility] [address] [place] [address] GLUCOSE POCon 07-21-2022 Glucose [Mass/Vol] 119 mg/dL High 70-108 [facility] Comment on above: Performed By: #### P OCGL #### [facility] [address] [place] [address] Glucose [Mass/Vol] 115 mg/dL High 70-108 [facility] Comment on above: Performed By: #### P OCGL #### [facility] [address] [place] [address] Glucose [Mass/Vol] 120 mg/dL High 70-108 [facility] Comment on above: Performed By: #### P OCGL #### [facility] [address] [place] [address] Glucose [Mass/Vol] 111 mg/dL High 70-108 [facility] Comment on above: Performed By: #### P OCGL ####[facility] [address] [place] [address] Glomerular Filtration Rate, Estimatedon 07-21-2022 GFR/1.73 sq M.predicted MDRD (S/P/Bld) [Vol rate/Area] 35 mL/min/{1.73_m2} Abnormal - PINF [facility] Comment on above: Pediatric calculator link https://www.kidney.org/professionals/kdoqi/gfr_calculatorped Effective Jan 08, 2022 These results are not intended for use in patients <18 years of age. eGFR results are calculated without a race factor using the 2020 CKD-EPI equation. Careful clinical correlation is recommended, particularly when comparing to results calculated using previous equations. The CKD-EPI equation is less accurate in patients with extremes of muscle mass, extra-renal metabolism of creatinine, excessive creatine ingestion, or following therapy that affects renal tubular secretion. Performed at [facility] [address] [place] [address] Glucose Auto test strip (Bld ) [Mass/Vol]on 07-21-2022 Glucose [Mass/Vol] 119 mg/dL High 70 - 108 mg/dl [facility] Comment on above: Performed at [facility] [address] [place] [address] Interpretation and review of laboratory results Abnormal [facility] Glucose [Mass/Vol] 115 mg/dL High 70 - 108 mg/dl [facility] Comment on above: Performed at [facility] [address] [place] [address] Interpretation and review of laboratory results Abnormal [facility] Glucose [Mass/Vol] 120 mg/dL High 70 - 108 mg/dl [facility] Comment on above: Performed at [facility] [address] [place] [address] Interpretation and review of laboratory results Abnormal [facility] Glucose [Mass/Vol] 111 mg/dL High 70 - 108 mg/dl [facility] Comment on above: Performed at [facility] [address] [place] [address] Interpretation and review of laboratory results Abnormal [facility] No Panel Informationon 07-21 Interpretation and review of laboratory results Abnormal [facility] ANION GAPon 07-20-2022 Anion gap [Moles/Vol] 8.0 mmol/L Normal 8.0-16.0 [facility] Comment on above: Result Comment: ANIO N GAP = Sodium -(Chloride + CO2) Performed By: #### E GFR1, ANION, CBCND, BMP ####[facility] [address] [place] [address] Anion Gapon 07-20-2022 Anion gap [Moles/Vol] 8.0 mmol/L 8.0 - 16.0 meq/L [facility] Comment on above: ANION GAP = Sodium - (Chloride + CO2) Performed at [facility] [address] [place] [address] BASIC METABOL PANELon 2022 Calcium [Mass/Vol] 7.7 mg/dL Low 8.5-10.5 [facility] Comment on above: Performed By: #### E GFR1, ANION, CBCND, BMP ####[facility] [address] [place] [address] Chloride [Moles/Vol] 109 mmol/L Normal 98-111 [facility] Comment on above: Performed By: #### E GFR1, ANION, CBCND, BMP ####[facility] [address] [place] [address] CO2 [Moles/Vol] 25 mmol/L Normal 23-33 [facility] Comment on above: Performed By: #### E GFR1, ANION, CBCND, BMP ####[facility] [address] [place] [address] Creatinine [Mass/Vol] 2.1 mg/dL High 0.4-1.2 [facility] Comment on above: Performed By: #### E GFR1, ANION, CBCND, BMP ####[facility] [address] [place] [address] Glucose [Mass/Vol] 132 mg/dL High 70-108 [facility] Comment on above: Performed By: #### E GFR1, ANION, CBCND, BMP ####[facility] [employer] [address] [place] [id number] Potassium [Moles/Vol] 4.2 mmol/L Normal 3.5-5.2 [facility] [facility] Comment on above: Performed By: #### E GFR1, ANION, CBCND, BMP ####[facility] [employer] [address] [address] Sodium [Moles/Vol] 142 mmol/L Normal 135-145 [facility] Comment on above: Performed By: #### E GFR1, ANION, CBCND, BMP ####[facility] [employer] [address] [place] [address] Urea nitrogen [Mass/Vol] 30 mg/dL High 7-22 [facility] Comment on above: Performed By: #### E GFR1, ANION, CBCND, BMP ####[address] [place] [address] Basic metabolic 2000 panelon 07-20-2022 Calcium [Mass/Vol] 7.7 mg/dL Low 8.5 - 10. 5 mg/dL [facility] Comment on above: Performed at [facility] [address] [place] [address] Chloride [Moles/Vol] 109 mmol/L 98 - 11 1 meq/L [facility] CO2 [Moles/Vol] 25 mmol/L 23 - 33 meq/L [facility] Creatinine [Mass/Vol] 2.1 mg/dL High 0.4 - 1.2 mg/dL [facility] Glucose [Mass/Vol] 132 mg/dL High 70 - 108 mg/dL [facility] Potassium [Moles/Vol] 4.2 mmol/L 3.5 - 5.2 meq/L [facility] Sodium [Moles/Vol] 142 mmol/L 135 - 145 meq/L [facility] Urea nitrogen [Mass/Vol] 30 mg/dL High 7 - 22 mg/dL [facility] CBCon 07-20-2022 Erythrocyte distribution width (RBC) [Entitic vol] 49.7 fL High 35.0 - 45.0 fL [facility] Erythrocyte distribution width (RBC) [Ratio] 14.7 % High 11.5 - 14.5 % [facility] Hematocrit (Bld) [Volume fraction] 33.8 % Low 42.0 - 52.0 % [facility] Hemoglobin (Bld) [Mass/Vol] 11.2 g/dL Low [facility] Interpretation and review of laboratory results Abnormal [facility] MCH (RBC) [Entitic mass] 30.6 pg 26.0 - 33.0 pg [facility] MCHC (RBC) [Mass/Vol] 33.1 g/dL [facility] MCV (RBC) [Entitic vol] 92.3 fL 80.0 - 94.0 fL [facility] Platelet mean volume (Bld) [Entitic vol] 8.6 fL Low 9.4 - 12.4 fL [facility] Comment on above: Performed at [facility] [address] [place] [address] Platelets (Bld) [#/Vol] 180 10*3/uL [facility] RBC (Bld) [#/Vol] 3.66 10*6/uL Low [facility] WBC (Bld) [#/Vol] 7.3 10*3/uL [facility] CBC NO DIFFERENTIALon 2022 Erythrocyte distribution width (RBC) [Ratio] 14.7 % High 11.5-14.5 [facility] Comment on above: Performed By: #### E GFR1, ANION, CBCND, BMP ####[facility] [address] [place] [address] Hematocrit (Bld) [Volume fraction] 33.8 % Low 42.0-52.0 [facility] Comment on above: Performed By: #### E GFR1, ANION, CBCND, BMP ####[facility] [address] [place] [address] Hemoglobin (Bld) [Mass/Vol] 11.2 g/dL Low 14.0-18.0 [facility] Comment on above: Performed By: #### E GFR1, ANION, CBCND, BMP ####[facility] [address] [place] [address] MCH (RBC) [Entitic mass] 30.6 pg Normal 26.0-33.0 [facility] Comment on above: Performed By: #### E GFR1, ANION, CBCND, BMP ####[facility] [address] [place] [address] MCHC (RBC) [Mass/Vol] 33.1 g/dL Normal 32.2-35.5 [facility] Comment on above: Performed By: #### E GFR1, ANION, CBCND, BMP ####[facility] [address] [place] [address] MCV (RBC) [Entitic vol] 92.3 fL Normal 80.0-94.0 [facility] Comment on above: Performed By: #### E GFR1, ANION, CBCND, BMP ####[facility] [address] [place] [address] PLATELET 180 thou/mm3 Normal 130-400 [facility] Comment on above: Performed By: #### E GFR1, ANION, CBCND, BMP ####[facility] [address] [place] [address] Platelet mean volume (Bld) [Entitic vol] 8.6 fL Low 9.4-12.4 [facility] Comment on above: Performed By: #### E GFR1, ANION, CBCND, BMP ####[employer] [address] [place] [address] RBC 3.66 mill/mm3 Low 4.70-6.10 [facility] Comment on above: Performed By: #### E GFR1, ANION, CBCND, BMP ####[employer] [address] [place] [address] RDW-SD 49.7 fL High 35.0-45.0 [facility] Comment on above: Performed By: #### E GFR1, ANION, CBCND, BMP ####[employer] [address] [place] [address] WBC 7.3 thou/mm3 Normal 4.8-10.8 [facility] Comment on above: Performed By: #### E GFR1, ANION, CBCND, BMP ####[employer] [address] [place] [address] FLUORO FOR SURGICAL PROCEDUR ESon 07-20-2022 FLUORO FOR SURGICAL PROCEDURES Radiology exam is complete. No Radiologist dictation. Please follow up with ordering provider. Normal [facility] Radiology exam is complete. No Radiologist dictation. Please follow up with ordering provider. [facility] CONSOLIDATED GFR, ESTIMATEDon 07-20-2022 GFR/1.73 sq M.predicted MDRD (S/P/Bld) [Vol rate/Area] 33 mL/min/{1.73_m2} Abnormal >60 [facility] Comment on above: Result Comment: Pedi atric calculator link https://www.kidney.org/professionals/kdoqi/gfr_calculatorped Effective Jan 08, 2022 These results are not intended for use in patients <18 years of age. eGFR results are calculated without a race factor using the 2020 CKD-EPI equation. Careful clinical correlation is recommended, particularly when comparing to results calculated using previous equations. The CKD-EPI equation is less accurate in patients with extremes of muscle mass, extra-renal metabolism of creatinine, excessive creatine ingestion, or following therapy that affects renal tubular secretion. Performed By: #### E GFR1, ANION, CBCND, BMP ####[facility] [address] [place] [address] GLUCOSE POCon 07-20-2022 Glucose [Mass/Vol] 153 mg/dL High 70-108 [facility] Comment on above: Performed By: #### P OCGL #### [facility] [address] [place] [address] Glucose [Mass/Vol] 165 mg/dL High 70-108 [facility] Comment on above: Performed By: #### P OCGL #### [facility] [address] [place] [address] Glomerular Filtration Rate, Estimatedon 07-20-2022 GFR/1.73 sq M.predicted MDRD (S/P/Bld) [Vol rate/Area] 33 mL/min/{1.73_m2} Abnormal - [email or web address] Comment on above: Pediatric calculator link https://www.kidney.org/professionals/kdoqi/gfr_calculatorped Effective Jan 08, 2022 These results are not intended for use in patients <18 years of age. eGFR results are calculated without a race factor using the 2020 CKD-EPI equation. Careful clinical correlation is recommended, particularly when comparing to results calculated using previous equations. The CKD-EPI equation is less accurate in patients with extremes of muscle mass, extra-renal metabolism of creatinine, excessive creatine ingestion, or following therapy that affects renal tubular secretion. Performed at [facility] [address] [place] [address] Glucose Auto test strip (Bld ) [Mass/Vol]on 07-20-2022 Glucose [Mass/Vol] 153 mg/dL High 70 - 108 mg/dl [email or web address] Comment on above: Performed at [facility] [address] [place] [address] Interpretation and review of laboratory results Abnormal [facility] Glucose [Mass/Vol] 165 mg/dL High 70 - 108 mg/dl [email or web address] Comment on above: Performed at [facility] [address] [place] [address] Interpretation and review of laboratory results Abnormal [employer] HEMOGLOBIN A1Con 07-20-2022 Glucose [Mass/Vol] 138 mg/dL High 70-126 [facility] Comment on above: Performed By: #### H -A1C #### [facility] [employer] [address] [place] [address] HbA1c (Bld) [Mass fraction] 6.6 % High 4.4-6.4 [facility] Comment on above: Performed By: #### H -A1C #### [facility] [employer] [facility] [address] [place] [address] HGB,HCTon 07-20-2022 Hematocrit (Bld) [Volume fraction] 33.2 % Low 42.0-52.0 [facility] Comment on above: Performed By: #### P OCGL #### [address] [address] Hemoglobin (Bld) [Mass/Vol] 10.9 g/dL Low 14.0-18.0 [facility] Comment on above: Performed By: #### P OCGL #### [facility] [employer] [address] [address] HbA1c HPLC (Bld) [Mass fract ion]on 07-20-2022 Glucose mean value Estimated from glycated hemoglobin Qn (Bld) 138 mg/dL High 70 - 126 mg/dL [facility] Comment on above: Performed at [facility] [address] [place] [address] HbA1c (Bld) [Mass fraction] 6.6 % High 4.4 - 6.4 % [facility] Interpretation and review of laboratory results Abnormal [facility] No Panel Informationon 07-20 Interpretation and review of laboratory results Abnormal [facility] XR CHEST PORTABLEon 07-21-19 XR CHEST PORTABLE Chest X-ray: 1 view. Indication: Pre-op. Comparison: None Findings: No focal consolidation, or pleural effusion. The cardiac silhouette is normal in size. Bony thorax is grossly intact. Spondylosis. IMPRESSION: Impression: No acute cardiopulmonary disease. This document has been electronically signed by: Leander Olsen MD on 07/19/2022 10:58 PM Interpreted by: Leander Olsen MD Signed by: Leander Olsen MD 07/19/22 Final result Normal [facility] XR LUMBAR SPINE (2-3 VIEWS)o n 07-20-2022 XR LUMBAR SPINE (2-3 VIEWS) LUMBAR SPINE 2 VIEWS: CLINICAL INFORMATION: fusion COMPARISON: Earlier film same date, 0914 hours. TECHNIQUE: Standard AP and lateral views of lumbar spine were obtained. FINDINGS: Posterior lumbar fusion has been performed from L2 to S1 with additional screws extending across both sacroiliac joints. Moderate multifocal degenerative changes are seen. The lumbar vertebra appear normally aligned. IMPRESSION: Postop appearance lumbar spine. This report has been created using voice recognition software. It may contain minor errors which are inherent in voice recognition technology. Final report electronically signed by Dr. Ralph Prescott on 07/20/2022 4:23 PM Interpreted by: Ralph Prescott MD Signed by: Ralph Prescott MD 07/20/22 Final result Normal [facility] Postop appearance lumbar spine. This report has been created using voice recognition software. It may contain minor errors which are inherent in voice recognition technology. Final report electronically signed by Dr. Ralph Prescott on 07/20/2022 4:23 PM [facility] CONSOLIDATED LUMBAR SPINE 2 VIEWS: CLINICAL INFORMATION: fusion COMPARISON: Earlier film same date, 0914 hours. TECHNIQUE: Standard AP and lateral views of lumbar spine were obtained. FINDINGS: Posterior lumbar fusion has been performed from L2 to S1 with additional screws extending across both sacroiliac joints. Moderate multifocal degenerative changes are seen. The lumbar vertebra appear normally aligned. [facility] Ralph Austin MD - 07/20/2022 LUMBAR SPINE 2 VIEWS: CLINICAL INFORMATION: fusion COMPARISON: Earlier film same date, 0914 hours. TECHNIQUE: Standard AP and lateral views of lumbar spine were obtained. FINDINGS: Posterior lumbar fusion has been performed from L2 to S1 with additional screws extending across both sacroiliac joints. Moderate multifocal degenerative changes are seen. The lumbar vertebra appear normally aligned. IMPRESSION: Postop appearance lumbar spine. This report has been created using voice recognition software. It may contain minor errors which are inherent in voice recognition technology. Final report electronically signed by Dr. Ralph Prescott on 07/20/2022 4:23 PM [facility] [employer] Work Phone: Radiology Study observation (narrative) Mind[employer] Phone: XR LUMBAR SPINE (2-3 VIEWS)O rdered By: Ralph Prescott on 07-20-2022 Mind[employer] Phone: XR LUMBAR SPINE 1 VWon 07-20 Localizer at L2. This report has been created using voice recognition software. It may contain minor errors which are inherent in voice recognition technology. Final report electronically signed by Dr. Simba Castle on 07/20/2022 12:20 PM [facility] Simba Bagely MD - 07/20/2022 PROCEDURE: XR LUMBAR SPINE 1 VW CLINICAL INFORMATION: surgery . TECHNIQUE: Crosstable lateral portable done in the OR COMPARISON: No prior study. FINDINGS: [employer] Operator localizer overlies the pedicle of L2. IMPRESSION: Localizer at L2. This report has been created using voice recognition software. It may contain minor errors which are inherent in voice recognition technology. Final report electronically signed by Dr. Simba Castle on 07/20/2022 12:20 PM [employer] Phone: Radiology Study observation (narrative) Mind[employer] Phone: XR LUMBAR SPINE 1 VWOrdered By: Simba Castle on 07-20-2022 Mind[employer] Phone: ANION GAPon 07-19-2022 Anion gap [Moles/Vol] 10.0 mmol/L Normal 8.0-16.0 [facility] Comment on above: Result Comment: ANIO N GAP = Sodium -(Chloride + CO2) Performed By: #### C BCND, ANION, EGFR1, BMP #### [facility] [address] [place] [address] Anion Gapon 07-19-2022 Anion gap [Moles/Vol] 10.0 mmol/L 8.0 - 16.0 meq/L [email or web address] Comment on above: ANION GAP = Sodium - (Chloride + CO2) Performed at [facility] [address] [place] [address] BASIC METABOL PANELon 2022 Calcium [Mass/Vol] 7.9 mg/dL Low 8.5-10.5 [facility] Comment on above: Performed By: #### C BCND, ANION, EGFR1, BMP #### [facility] [address] [place] [address] Chloride [Moles/Vol] 107 mmol/L Normal 98-111 [facility] Comment on above: Performed By: #### C BCND, ANION, EGFR1, BMP #### [facility] [address] [place] [address] CO2 [Moles/Vol] 24 mmol/L Normal 23-33 [facility] Comment on above: Performed By: #### C BCND, ANION, EGFR1, BMP #### [facility] [address] [place] [address] Creatinine [Mass/Vol] 2.0 mg/dL High 0.4-1.2 [facility] Comment on above: Performed By: #### C BCND, ANION, EGFR1, BMP #### [facility] [address] [place] [address] Glucose [Mass/Vol] 231 mg/dL High 70-108 [facility] Comment on above: Performed By: #### C BCND, ANION, EGFR1, BMP #### [facility] [address] [place] [address] Potassium [Moles/Vol] 4.3 mmol/L Normal 3.5-5.2 [facility] Comment on above: Performed By: #### C BCND, ANION, EGFR1, BMP #### [facility] [address] [place] [address] Sodium [Moles/Vol] 141 mmol/L Normal 135-145 [facility] Comment on above: Performed By: #### C BCND, ANION, EGFR1, BMP #### [facility] [address] [place] [address] Urea nitrogen [Mass/Vol] 33 mg/dL High 7-22 [facility] Comment on above: Performed By: #### C BCND, ANION, EGFR1, BMP #### [facility] [address] [place] [address] Basic metabolic 2000 panelon 07-19-2022 Calcium [Mass/Vol] 7.9 mg/dL Low 8.5 - 10. 5 mg/dL [facility] Comment on above: Performed at [facility] [address] [place] [address] Chloride [Moles/Vol] 107 mmol/L 98 - 11 1 meq/L [facility] CO2 [Moles/Vol] 24 mmol/L 23 - 33 meq/L [facility] Creatinine [Mass/Vol] 2 mg/dL High 0.4 - 1.2 mg/dL [facility] Glucose [Mass/Vol] 231 mg/dL High 70 - 108 mg/dL [facility] Potassium [Moles/Vol] 4.3 mmol/L 3.5 - 5.2 meq/L [facility] Sodium [Moles/Vol] 141 mmol/L 135 - 145 meq/L [facility] Urea nitrogen [Mass/Vol] 33 mg/dL High 7 - 22 mg/dL [facility] CBCon 07-19-2022 Erythrocyte distribution width (RBC) [Entitic vol] 46.5 fL High 35.0 - 45.0 fL [facility] Erythrocyte distribution width (RBC) [Ratio] 13.7 % 11.5 - 14.5 % [facility] Hematocrit (Bld) [Volume fraction] 26.9 % Low 42.0 - 52.0 % [facility] Hemoglobin (Bld) [Mass/Vol] 8.8 g/dL Low [facility] Interpretation and review of laboratory results Abnormal [facility] MCH (RBC) [Entitic mass] 30.8 pg 26.0 - 33.0 pg [facility] MCHC (RBC) [Mass/Vol] 32.7 g/dL [facility] MCV (RBC) [Entitic vol] 94.1 fL High 80.0 - 94.0 fL [facility] Platelet mean volume (Bld) [Entitic vol] 9.1 fL Low 9.4 - 12.4 fL [facility] Comment on above: Performed at [facility] [address] [place] [address] Platelets (Bld) [#/Vol] 176 10*3/uL [facility] RBC (Bld) [#/Vol] 2.86 10*6/uL Low [facility] WBC (Bld) [#/Vol] 5.7 10*3/uL [facility] CBC NO DIFFERENTIALon 2022 Erythrocyte distribution width (RBC) [Ratio] 13.7 % Normal 11.5-14.5 [facility] Comment on above: Performed By: #### C BCND, ANION, EGFR1, BMP #### [employer] [address] [place] [address] Hematocrit (Bld) [Volume fraction] 26.9 % Low 42.0-52.0 [facility] Comment on above: Performed By: #### C BCND, ANION, EGFR1, BMP #### [employer] [address] [place] [address] Hemoglobin (Bld) [Mass/Vol] 8.8 g/dL Low 14.0-18.0 [facility] Comment on above: Performed By: #### C BCND, ANION, EGFR1, BMP #### [employer] [address] [place] [address] MCH (RBC) [Entitic mass] 30.8 pg Normal 26.0-33.0 [facility] Comment on above: Performed By: #### C BCND, ANION, EGFR1, BMP #### [employer] [address] [place] [address] MCHC (RBC) [Mass/Vol] 32.7 g/dL Normal 32.2-35.5 [facility] Comment on above: Performed By: #### C BCND, ANION, EGFR1, BMP #### [employer] [address] [place] [address] MCV (RBC) [Entitic vol] 94.1 fL High 80.0-94.0 [facility] Comment on above: Performed By: #### C BCND, ANION, EGFR1, BMP #### [employer] [address] [place] [address] PLATELET 176 thou/mm3 Normal 130-400 [facility] Comment on above: Performed By: #### C BCND, ANION, EGFR1, BMP #### [facility] [employer] [facility] [address] [place] [address] Platelet mean volume (Bld) [Entitic vol] 9.1 fL Low 9.4-12.4 [facility] Comment on above: Performed By: #### C BCND, ANION, EGFR1, BMP #### [employer] [address] [place] [address] RBC 2.86 mill/mm3 Low 4.70-6.10 [facility] Comment on above: Performed By: #### C BCND, ANION, EGFR1, BMP #### [employer] [address] [place] [address] RDW-SD 46.5 fL High 35.0-45.0 [facility] Comment on above: Performed By: #### C BCND, ANION, EGFR1, BMP #### [employer] [address] [place] [address] WBC 5.7 thou/mm3 Normal 4.8-10.8 [facility] Comment on above: Performed By: #### C BCND, ANION, EGFR1, BMP #### [employer] [address] [place] [address] FERRITINon 07-19-2022 Ferritin [Mass/Vol] 105 ng/mL Normal 22-322 [facility] Comment on above: Performed By: #### H -A1C #### [employer] [address] [place] [address] Ferritinon 07-19-2022 Ferritin IA [Mass/Vol] 105 ng/mL 22 - 322 ng/mL [facility] Comment on above: Performed at [facility] [address] [place] [address] Ferritin IA [Mass/Vol]on [facility] GFR, ESTIMATEDon 07-19-2022 GFR/1.73 sq M.predicted MDRD (S/P/Bld) [Vol rate/Area] 35 mL/min/{1.73_m2} Abnormal >60 [facility] Comment on above: Result Comment: Pedi atric calculator link https://www.kidney.org/professionals/kdoqi/gfr_calculatorped Effective Jan 08, 2022 These results are not intended for use in patients <18 years of age. eGFR results are calculated without a race factor using the 2020 CKD-EPI equation. Careful clinical correlation is recommended, particularly when comparing to results calculated using previous equations. The CKD-EPI equation is less accurate in patients with extremes of muscle mass, extra-renal metabolism of creatinine, excessive creatine ingestion, or following therapy that affects renal tubular secretion. Performed By: #### C BCND, ANION, EGFR1, BMP #### [employer] [address] [place] [address] GLUCOSE POCon 07-19-2022 Glucose [Mass/Vol] 254 mg/dL High 70-108 [facility] Comment on above: Performed By: #### P OCGL #### [employer] [address] [place] [address] Glomerular Filtration Rate, Estimatedon 07-19-2022 GFR/1.73 sq M.predicted MDRD (S/P/Bld) [Vol rate/Area] 35 mL/min/{1.73_m2} [facility] Comment on above: Pediatric calculator link https://www.kidney.org/professionals/kdoqi/gfr_calculatorped Effective Jan 08, 2022 These results are not intended for use in patients <18 years of age. eGFR results are calculated without a race factor using the 2020 CKD-EPI equation. Careful clinical correlation is recommended, particularly when comparing to results calculated using previous equations. The CKD-EPI equation is less accurate in patients with extremes of muscle mass, extra-renal metabolism of creatinine, excessive creatine ingestion, or following therapy that affects renal tubular secretion. Performed at [employer] [address] [place] [address] Glucose Auto test strip (Bld ) [Mass/Vol]on 07-19-2022 Glucose [Mass/Vol] 254 mg/dL High 70 - 108 mg/dl [facility] [email or web address] Comment on above: Performed at [employer] [address] [place] [address] Interpretation and review of laboratory results Abnormal [facility] Hemoglobin and Hematocrit pa smith (Bld)on 07-19-2022 Hematocrit (Bld) [Volume fraction] 33.2 % Low 42.0 - 52.0 % [facility] Comment on above: Performed at [facility] [address] [place] [address] Hemoglobin (Bld) [Mass/Vol] 10.9 g/dL Low [facility] Interpretation and review of laboratory results Abnormal [facility] IRONon 07-19-2022 Iron [Mass/Vol] 58 ug/dL Low 65-195 [facility] Comment on above: Performed By: #### P OCGL #### [facility] [address] [place] [address] Ironon 07-19-2022 Iron [Mass/Vol] 58 ug/dL Low 65 - 195 ug/dL [facility] Comment on above: Performed at [facility] [address] [place] [address] Iron [Mass/Vol]on 07-19-2022 Interpretation and review of laboratory results Abnormal [facility] LEUKO-REDUCED RCon 3 -1 LEUKOREDUCED RED CELLS [id number] transfused Normal [facility] Comment on above: Performed By: #### C BCND, ANION, EGFR1, BMP #### [facility] [address] [place] [address] -1 LEUKOREDUCED RED CELLS [id number] transfused Normal [facility] Comment on above: Performed By: #### C BCND, ANION, EGFR1, BMP #### [facility] [address] [place] [address] No Panel Informationon 07-19 Interpretation and review of laboratory results Abnormal [facility] PREPARE RBC (CROSSMATCH), 1 Unitson 07-19-2022 [id number] transfused [facility] SYSTEM [facility] [id number] transfused [facility] TYPE AND SCREENon 07-19-2022 ABO A [email or web address] Rh Factor Negative [facility] TYPE AND SCREEN CAPTUREon ABO CAPTURE A Normal [facility] Comment on above: Performed By: #### C BCND, ANION, EGFR1, BMP #### [facility] [address] [place] [address] INDIRECT GULSHAN CAPTURE Negative Normal [facility] Comment on above: Performed By: #### C BCND, ANION, EGFR1, BMP #### [facility] [address] [place] [address] RH CAPTURE (2 D CLONES) Negative Normal [facility] Comment on above: Performed By: #### C BCND, ANION, EGFR1, BMP #### [facility] [address] [place] [address] XR CHEST PORTABLEon 07-20-19 Impression: No acute cardiopulmonary disease. This document has been electronically signed by: Leander Olsen MD on 07/19/2022 10:58 PM [facility] Chest X-ray: 1 view. Indication: Pre-op. Comparison: None Findings: No focal consolidation, or pleural effusion. The cardiac silhouette is normal in size. Bony thorax is grossly intact. Spondylosis. [facility] Leander Tolentino MD - 07/19/2022 Chest X-ray: 1 view. Indication: Pre-op. Comparison: None Findings: No focal consolidation, or pleural effusion. The cardiac silhouette is normal in size. Bony thorax is grossly intact. Spondylosis. IMPRESSION: Impression: No acute cardiopulmonary disease. This document has been electronically signed by: Leander Olsen MD on 07/19/2022 10:58 PM [email or web address] Work Phone: Radiology Study observation (narrative) [email or web address] Work Phone: XR CHEST PORTABLEOrdered By: Leander Olsen on 07-19-2022 [email or web address] Work Phone: Office Visiton 07-18-2022 Follow-up visit [id number] Omer Santos 1950 M Date Provider Department Center 07/18/2022 IRA HECK CARD [facility] Family History Problem Relation Age of Onset Coronary artery disease Father Other Father Heart attack Father Coronary artery disease Brother Heart attack Brother Other Brother Heart attack Paternal Grandfather Family Status - Relation Status Age at Father Brother Paternal Grandfather Level of Service:38387 NE OFFICE/OUTPATIENT ESTABLISHED MOD MDM 30-39 MIN Reason for Visit and Comments: Follow-up [023734] - 6 month CAD, HTN Pre-op Exam [[id number]] - May already be cleared by family doctor reviewing stress test. Normal [facility] PTH INTACTon 07-13-2022 PTH, Intact 54 pg/mL Normal 15-65 [facility] Comment on above: Performed By: #### P THINT #### [facility] [address] [place] [address] Dr. Sarah Sánchez FERRITINon 07-12-2022 Ferritin [Mass/Vol] 94.0 ng/mL Normal 26.0-388.0 [facility] Comment on above: Performed By: #### H BSANS #### [facility] [address] [place] [address] Dr. Sarah Sánchez HEMOGRAM AND PLATELon 2022 Hematocrit (Bld) [Volume fraction] 30.4 % Critically low 42.0-54.0 [facility] Comment on above: Performed By: #### U DELFINO, RENAL, MG #### [facility] [address] [place] [address] Dr. Sarah Sánchez Hemoglobin (Bld) [Mass/Vol] 10.4 g/dL Critically low 14.0-18.0 [facility] Comment on above: Performed By: #### U DELFINO, RENAL, MG #### [facility] [address] [place] [address] Dr. Sarah Sánchez MCH (RBC) [Entitic mass] 31.0 pg Normal 25.9-34.0 [facility] Comment on above: Performed By: #### U DELFINO, RENAL, MG #### [facility] [address] [place] [address] Dr. aSrah Sánchez MCHC (RBC) [Mass/Vol] 34.2 g/dL Normal 29.9-35.2 [facility] Comment on above: Performed By: #### U DELFINO, RENAL, MG #### [facility] [address] [address] [address] Sarah Sánchez MCV (RBC) [Entitic vol] 90.5 fL Normal 80.0-94.0 [facility] Comment on above: Performed By: #### U DELFINO, RENAL, MG #### [facility] [address] [address] [address] Sarah Sánchez PLT 202 103/ul Normal 150-450 [facility] Comment on above: Performed By: #### U DELFINO, RENAL, MG #### [facility] [address] [place] [address] Dr. Sarah Sánchez RBC 3.36 106/ul Critically low 4.70-6.10 [facility] Comment on above: Performed By: #### U DELFINO, RENAL, MG #### [facility] [address] [place] [address] Dr. Sarah Sánchez WBC 6.7 103/ul Normal 4.0-11.0 [facility] Comment on above: Performed By: #### U DELFINO, RENAL, MG #### [facility] [address] [place] [address] Dr. Sarah Sánchez IRON AND TIBCon 07-12-2022 % SATURATION 30.1 % Normal [facility] Comment on above: Performed By: #### H BSANS #### [facility] [address] [address] [address] Sarah Sánchez Iron [Mass/Vol] 74.0 ug/dL Normal 65.0-175.0 [facility] Comment on above: Performed By: #### H BSANS #### [facility] [address] [address] [address] Sarah Sánchez TIBC DIRECT 246.0 ug/dL Critically low 250.0-450.0 [facility] Comment on above: Performed By: #### H BSANS #### [facility] [address] [address] [address] Sarah Sánchez MAGNESIUMon 07-12-2022 Magnesium [Mass/Vol] 1.1 mg/dL Critically low 1.8-2.4 [facility] Comment on above: Performed By: #### P THINT #### [facility] [address] [place] [address] Dr. Sarah Sánchez NM STRESS/REST MULTIon 07-12 NM STRESS/REST MULTI Patient: OMER SANTOS Exam Date: 07/12/2022 : 1950 Gender:M Ordering : DR RUBEN LUO . Admission #: [id number] Family : DR VADIM VERONICA M.D. Order #: [id number] CLICK HERE TO VIEW EXAM RADIOLOGY REPORT PROCEDURE: RADIONUCLIDE IMAGING STRESS/REST MULTI COMPARISON: None. INDICATIONS: Preoperative cardiovascular examination, coronary artery disease I25.10 TECHNIQUE: Exam Description: Stress/Rest one day protocol gated SPECT Rest Imagin.0 mCi Tc-99m Cardiolite IV on 07/12/2022 Stress Imaging 30.0 mCi Tc-99m Cardiolite IV on 07/12/2022 Exercise Protocol: 0.4 mg Lexiscan given IV Heart Rate (bpm): Rest: 58 Max: 82 PMHR: 55 Blood Pressure: Rest: 208/88 Max: 208/88 Symptoms: Rest and peak stress ECG findings were normal and the exercise portion of the study was normal per attending physician Dr. Deuce Greene . For more details please see separate cardiac stress test report. FINDINGS: QUALITY OF STUDY: Excellent. PERFUSION DEFECT: None. LOCATION: N/A SIZE: N/A. SEVERITY: N/A. TYPE: N/A. WALL MOTION: Normal. LV SIZE: Normal. 109 mL. TID / TCD: None; 0.6 LVEF: Normal. Calculated EF 62%. SUMMARY: Myocardial perfusion imaging study is NORMAL. CONCLUSION: 1. Normal nuclear medicine myocardial perfusion scan. Dictated by: Memo Strickland M.D. on 07/12/2022 at 15:17 Approved by: Mmeo Strickland M.D. on 07/12/2022 at 15:17 Normal [facility] RENAL FUNCTION PANELon 07-12 Albumin [Mass/Vol] 3.3 g/dL Critically low 3.4-5.0 [facility] Comment on above: Performed By: #### P THINT #### [facility] [address] [place] [address] Dr. Sarah Sánchez Calcium [Mass/Vol] 8.3 mg/dL Critically low 8.5-10.1 [facility] Comment on above: Performed By: #### P THINT #### [facility] [address] [place] [address] Dr. Sarah Sánchez Chloride [Moles/Vol] 107 mmol/L Normal 98-107 [facility] Comment on above: Performed By: #### P THINT #### [facility] [address] [place] [address] Dr. Sarah Sánchez CO2 [Moles/Vol] 26.4 mmol/L Normal 21.0-32.0 [facility] Comment on above: Performed By: #### P THINT #### [facility] [address] [place] [address] Dr. Sarah Sánchez Creatinine [Mass/Vol] 1.98 mg/dL Critically high 0.70-1.30 [facility] Comment on above: Performed By: #### P THINT #### [facility] [address] [place] [address] Dr. Sarah Sánchez EGFR-AF MALDIVIAN 40 mL/min/1.73m2 Critically low >=60 [facility] Comment on above: Performed By: #### P THINT #### [facility] [address] [place] [address] Dr. Sarah Sánchez EGFR-NON AF MALDIVIAN 33 mL/min/1.73m2 Critically low >=60 [facility] Comment on above: Performed By: #### P THINT #### [facility] [address] [place] [address] Dr. Sarah Sánchez Glucose [Mass/Vol] 149 mg/dL Critically high 74-106 T [facility] Comment on above: Performed By: #### P THINT #### [facility] [address] [place] [address] Dr. Sarah Sánchez Phosphate [Mass/Vol] 4.0 mg/dL Normal 2.6-4.7 [facility] Comment on above: Performed By: #### P THINT #### [facility] [address] [place] [address] Dr. Sarah Sánchez Potassium [Moles/Vol] 4.5 mmol/L Normal 3.5-5.1 [facility] Comment on above: Performed By: #### P THINT #### [facility] [address] [place] [address] Dr. Sarah Sánchez Sodium [Moles/Vol] 141 mmol/L Normal 136-145 [facility] Comment on above: Performed By: #### P THINT #### [facility] [address] [place] [address] Dr. Sarah Sánchez Urea nitrogen [Mass/Vol] 29.0 mg/dL Critically high 7.0-18.0 [facility] Comment on above: Performed By: #### P THINT #### [facility] [address] [place] [address] Dr. Sarah Sánchez UA RANDOM W/MICROSCOPICon BACTERIA TRACE Abnormal NONE SEEN [facility] Comment on above: Performed By: #### C VDTBH #### [facility] [address] [place] [address] Dr. Sarah Sánchez Bilirubin Ql (U) Negative Normal NEGATIVE [facility] Comment on above: Performed By: #### C VDTBH #### [facility] [address] [place] [address] Dr. Sarah Sánchez CAST NONE SEEN Normal NONE SEEN [facility] Comment on above: Performed By: #### C VDTBH #### [facility] [address] [place] [address] Dr. Sarah Sánchez Clarity (U) CLEAR Normal CLEAR [facility] Comment on above: Performed By: #### C VDTBH #### [facility] [address] [place] [address] Dr. Sarah Sánchez Color (U) LT. YELLOW Normal YELLOW [facility] Comment on above: Performed By: #### C VDTBH #### [facility] [address] [address] [address] Sarah Sánchez Crystals LM Nom (Urine sed) NONE SEEN Normal NONE SEEN [facility] Comment on above: Performed By: #### C VDTBH #### [facility] [address] [place] [address] Dr. Sarah Sánchez Epithelial cells LM Ql (Urine sed) RARE Normal NONE SEEN /RARE [facility] Comment on above: Performed By: #### C VDTBH #### [facility] [address] [place] [address] Dr. Sarah Sánchez Glucose Ql (U) 100 mg/dl Abnormal NEGATIVE [facility] Comment on above: Performed By: #### C VDTBH #### [facility] [address] [place] [address] Dr. Sarah Sánchez Hemoglobin Ql (U) MODERATE Abnormal NEGATIVE [facility] Comment on above: Performed By: #### C VDTBH #### [facility] [address] [place] [address] Dr. Sarah Sánchez Ketones Ql (U) Negative Normal NEGATIVE [facility] Comment on above: Performed By: #### C VDTBH #### [facility] [address] [place] [address] Dr. Sarah Sánchez LEUKOCYTES Negative Normal NEGATIVE [facility] Comment on above: Performed By: #### C VDTBH #### [facility] [address] [place] [address] Dr. Sarah Sánchez MUCOUS NONE SEEN Normal NONE SEEN [facility] Comment on above: Performed By: #### C VDTBH #### [facility] [address] [place] [address] Dr. Sarah Sánchez Nitrite Ql (U) Negative Normal NEGATIVE [facility] Comment on above: Performed By: #### C VDTBH #### [facility] [address] [place] [address] Dr. Sarah Sánchez pH (U) 5.5 [pH] Normal 5-9 [facility] Comment on above: Performed By: #### C VDTBH #### [facility] [address] [place] [address] Dr. Sarah Sánchez RBC 2-5 Abnormal 0-2 [facility] Comment on above: Performed By: #### C VDTBH #### [facility] [address] [place] [address] Dr. Sarah Sánchez SPEC GRAVITY 1.025 Normal 1.005-<=1.02 5 [facility] Comment on above: Performed By: #### C VDTBH #### [facility] [address] [place] [address] Dr. Sarah Sánchez UA PROTEIN >300 Abnormal NEGATIVE/ TRACE [facility] Comment on above: Performed By: #### C VDTBH #### [facility] [address] [place] [address] Dr. Sarah Sánchez Urobilinogen Qn (U) 0.2 {Stevie'U}/dL Normal 0.2 - 1. 0 [facility] Comment on above: Performed By: #### C VDTBH #### [facility] [address] [place] [address] Dr. Sarah Sánchez WBC NONE SEEN Normal NONE SEEN [facility] Comment on above: Performed By: #### C VDTBH #### [facility] [address] [place] [address] Dr. Sarah Sánchez URINE T PROTEIN CREAT RATIOo n 07-12-2022 Protein (U) [Mass/Vol] 901.3 mg/dL Critically high <=12.0 [facility] Comment on above: Performed By: #### C VDTBH #### [facility] [address] [place] [address] Dr. Sarah Sánchez UR PROT CREAT RAT 7.26 Normal [facility] Comment on above: Performed By: #### C VDTBH #### [facility] [address] [place] [address] Dr. Sarah Sánchez URINE CREAT 124.19 mg/dL Normal 20.00-300.00 [facility] Comment on above: Performed By: #### C VDTBH #### [facility] [address] [place] [address] Dr. Sarah Sánchez VITAMIN D 25 OHon 07-12-2022 VIT D 25-OH 24.7 ng/mL Normal [facility] Comment on above: Performed By: #### H BSANS #### [facility] [address] [place] [address] Dr. Sarah Sánchez VIT D RANGES SEE BELOW Normal [facility] Comment on above: Result Comment: <20 ng/mL Vit D deficient 20 - <30 ng/mL Vit D insufficient 30 - 100 ng/mL Vit D sufficient >100 ng/mL Potential Toxicity Performed By: #### H BSANS #### [facility] [address] [address] [address] Sarah Sánchez XR COMPARISON OF OUTSIDE QUEENIE MSon 2022 XR COMPARISON OF OUTSIDE FILMS Radiology exam is complete. No Radiologist dictation. Please follow up with ordering provider. Normal [facility] Radiology exam is complete. No Radiologist dictation. Please follow up with ordering provider. [facility] RIS CONSOLIDATED CBC AUTO DIFFon 07-02-2022 BASO # 0.0 103/ul Normal 0.0-0.1 [facility] Comment on above: Performed By: #### U DELFINO, RENAL, MG #### [facility] [address] [place] [address] Dr. Sarah Sánchez Basophils/100 WBC (Bld) 0.5 % Normal 0.2-2.0 [facility] Comment on above: Performed By: #### U DELFINO, RENAL, MG #### [facility] [address] [place] [address] Dr. Sarah Sánchez EO # 0.2 103/ul Normal 0.0-0.7 [facility] Comment on above: Performed By: #### U DELFINO, RENAL, MG #### [facility] [address] [place] [address] Dr. Sarah Sánchez Eosinophils/100 WBC (Bld) 3.4 % Normal 0.9-7.0 [facility] Comment on above: Performed By: #### U DELFINO, RENAL, MG #### [facility] [address] [place] [address] Dr. Sarah Sánchez Erythrocyte distribution width (RBC) [Ratio] 13.7 % Normal 11.0-15.0 [facility] Comment on above: Performed By: #### U DELFINO, RENAL, MG #### [facility] [address] [address] [address] Sarah Sánchez Hematocrit (Bld) [Volume fraction] 27.4 % Critically low 42.0-54.0 [facility] Comment on above: Performed By: #### U DELFINO, RENAL, MG #### [facility] [address] [address] [address] Sarah Sánchez Hemoglobin (Bld) [Mass/Vol] 9.1 g/dL Critically low 14.0-18.0 [facility] Comment on above: Performed By: #### U DELFINO, RENAL, MG #### [facility] [address] [address] [address] Sarah Sánchez IG # 0.05 10e3/ul Critically high 0.00-0.03 [facility] Comment on above: Performed By: #### U DELFINO, RENAL, MG #### [facility] [address] [address] [address] Sarah Sánchez IG % 0.8 % Critically high 0.0-0.5 [facility] Comment on above: Performed By: #### U DELFINO, RENAL, MG #### [facility] [address] [place] [address] Dr. Sarah Sánchez LYMPH # 1.3 103/ul Normal 1.2-3.8 [facility] Comment on above: Performed By: #### U DELFINO, RENAL, MG #### [facility] [address] [address] [address] Sarah Sánchez Lymphocytes/100 WBC (Bld) 20.3 % Critically low 20.5-60.0 [facility] Comment on above: Performed By: #### U DELFINO, RENAL, MG #### [facility] [address] [address] [address] Sarah Sánchez MANUAL DIFF REQ NO Normal [facility] Comment on above: Performed By: #### U DELFINO, RENAL, MG #### [facility] [address] [address] [address] Sarah Sánchez MCH (RBC) [Entitic mass] 30.2 pg Normal 25.9-34.0 [facility] Comment on above: Performed By: #### U DELFINO, RENAL, MG #### [facility] [address] [address] [address] Sarah Sánchez MCHC (RBC) [Mass/Vol] 33.2 g/dL Normal 29.9-35.2 [facility] Comment on above: Performed By: #### U DELFINO, RENAL, MG #### [facility] [address] [address] [address] Sarah Sánchez MCV (RBC) [Entitic vol] 91.0 fL Normal 80.0-94.0 [facility] Comment on above: Performed By: #### U DELFINO, RENAL, MG #### [facility] [address] [address] [address] Sarah Sánchez MONO # 0.4 103/ul Normal 0.3-0.8 [facility] Comment on above: Performed By: #### U DELFINO, RENAL, MG #### [facility] [address] [address] [address] Sarah Sánchez Monocytes/100 WBC (Bld) 6.7 % Normal 1.7-12.0 [facility] Comment on above: Performed By: #### U DELFINO, RENAL, MG #### [facility] [address] [address] [address] Sarah Sánchez NEUT # 4.5 103/ul Normal 1.4-6.5 [facility] Comment on above: Performed By: #### U DELFINO, RENAL, MG #### [facility] [address] [address] [address] Sarah Sánchez Neutrophils/100 WBC (Bld) 68.3 % Normal 43.0-75.0 [facility] Comment on above: Performed By: #### U DELFINO, RENAL, MG #### [facility] [address] [address] [address] Sarah Sánchez Platelet mean volume (Bld) [Entitic vol] 9.7 fL Normal 9.5-13.5 [facility] Comment on above: Performed By: #### U DELFINO, RENAL, MG #### [facility] [address] [place] [address] Dr. Sarah Sánchez PLT 142 103/ul Critically low 150-450 [facility] Comment on above: Performed By: #### U DELFINO, RENAL, MG #### [facility] [address] [place] [address] Dr. Sarah Sánchez RBC 3.01 106/ul Critically low 4.70-6.10 [facility] Comment on above: Performed By: #### U DELFINO, RENAL, MG #### [facility] [address] [place] [address] Dr. Sarah Sánchez WBC 6.5 103/ul Normal 4.0-11.0 [facility] Comment on above: Performed By: #### U DELFINO, RENAL, MG #### [facility] [address] [place] [address] Dr. Sarah Sánchez MRSA NARES #1on 07-02-2022 MRSA NARES #1 Culture Observations: NO GROWTH OF MRSA OR MSSA AT 48 HOURS. [facility] Comment on above: Performed By: #### P THINT #### [facility] [address] [place] [address] Dr. Sarah Sánchez MRSA NARES #2on 07-02-2022 MRSA NARES #2 Culture Observations: NO GROWTH OF MRSA OR MSSA AT 48 HOURS. [facility] Comment on above: Performed By: #### P THINT #### [facility] [address] [place] [address] Dr. Sarah Sánchez PROF CHEM 8 (BAS METB)on Anion gap [Moles/Vol] 12.8 mmol/L [facility] Comment on above: Performed By: #### H BSANS #### [facility] [address] [place] [address] Dr. Sarah Sánchez Calcium [Mass/Vol] 8.0 mg/dL Critically low 8.5-10.1 [facility] Comment on above: Performed By: #### H BSANS #### [facility] [address] [address] [address] Sarah Sánchez Chloride [Moles/Vol] 113 mmol/L Critically high 98-107 [facility] Comment on above: Performed By: #### H BSANS #### [facility] [address] [address] [address] Sarah Sánchez CO2 [Moles/Vol] 21.9 mmol/L Normal 21.0-32.0 [facility] Comment on above: Performed By: #### H BSANS #### [facility] [address] [address] [address] Sarah Sánchez Creatinine [Mass/Vol] 2.49 mg/dL Critically high 0.70-1.30 [facility] Comment on above: Performed By: #### H BSANS #### [facility] [address] [address] [address] Sarah Sánchez EGFR-AF MALDIVIAN 31 mL/min/1.73m2 Critically low >=60 [facility] Comment on above: Performed By: #### H BSANS #### [facility] [address] [address] [address] Sarah Sánchez EGFR-NON AF MALDIVIAN 26 mL/min/1.73m2 Critically low >=60 [facility] Comment on above: Performed By: #### H BSANS #### [facility] [address] [address] [address] Sarah Sánchez Glucose [Mass/Vol] 153 mg/dL Critically high 74-106 [facility] Comment on above: Performed By: #### H BSANS #### [facility] [facility] [address] [address] [address] Sarah Sánchez Potassium [Moles/Vol] 4.7 mmol/L Normal 3.5-5.1 [facility] Comment on above: Performed By: #### H BSANS #### [facility] [address] [address] [address] Sarah Sánchez Sodium [Moles/Vol] 143 mmol/L Normal 136-145 [facility] Comment on above: Performed By: #### H BSANS #### [facility] [address] [address] [address] Sarah Sánchez Urea nitrogen [Mass/Vol] 50.0 mg/dL Critically high 7.0-18.0 [facility] Comment on above: Performed By: #### H BSANS #### [facility] [address] [place] [address] Dr. Sarah Sánchez Urea nitrogen/Creatinine [Mass ratio] 20.1 mg/mg Normal [facility] Comment on above: Performed By: #### H BSANS #### [facility] [address] [place] [address] Dr. Sarah Sánchez PROTIMEon 07-02-2022 INR Coag (PPP) [Relative time] 0.98 {INR} Normal [facility] Comment on above: Performed By: #### U RTPCR #### [facility] [address] [place] [address] Dr. Sarah Sánchez INR GUIDELINES SEE BELOW Normal [facility] Comment on above: Result Comment: DARIUS RED INR: 2.0 - 3.0 CONDITIONS NOT LISTED BELOW 2.5 - 3.5 FOR PROSTHETIC HEART VALVE REPLACEMENT 2.5 - 3.5 RECURRENT THROMBOSIS Performed By: #### U RTPCR #### [facility] [address] [place] [address] Dr. Sarah Sánchez PT Coag (PPP) [Time] 10.4 s Normal 9.0-11.6 [facility] Comment on above: Performed By: #### U RTPCR #### [facility] [address] [place] [address] Dr. Sarah Sánchez PTTon 07-02-2022 aPTT Coag (Bld) [Time] 20.5 s Critically low 22.3-36.2 [facility] Comment on above: Performed By: #### U RTPCR #### [facility] [address] [place] [address] Dr. Sarah Sánchez XR CHEST 2 Von 07-02-2022 XR CHEST 2 V EXAM: XR CHEST 2 V HISTORY: Preoperative pulmonary examination cough and shortness of breath for one month COMPARISON: None. IMPRESSION: 1. Nonenlarged cardiomediastinal silhouette. 2. Minimal bibasilar atelectasis. Otherwise, no other acute pulmonary process. 3. Mild multilevel degenerative spondylosis of the thoracic spine. 4. Surgical clips within the right lower neck. Electronically authenticated by: DIANE DUNCAN Date: 2022-07-02 09:05 Normal [facility] HEMOGRAM AND PLATELon 2022 Hematocrit (Bld) [Volume fraction] 28.5 % Critically low 42.0-54.0 [facility] Comment on above: Performed By: #### U RTPCR #### [facility] [address] [place] [address] Dr. Sarah Sánchez Hemoglobin (Bld) [Mass/Vol] 10.1 g/dL Critically low 14.0-18.0 [facility] Comment on above: Performed By: #### U RTPCR #### [facility] [address] [place] [address] Dr. Sarah Sánchez MCH (RBC) [Entitic mass] 31.3 pg Normal 25.9-34.0 [facility] Comment on above: Performed By: #### U RTPCR #### [facility] [address] [place] [address] Dr. Sarah Sánchez MCHC (RBC) [Mass/Vol] 35.4 g/dL Critically high 29.9-35.2 [facility] Comment on above: Performed By: #### U RTPCR #### [facility] [address] [address] [address] Sarah Sánchez MCV (RBC) [Entitic vol] 88.2 fL Normal 80.0-94.0 [facility] Comment on above: Performed By: #### U RTPCR #### [facility] [address] [address] [address] Sarah Sánchez PLT 171 103/ul Normal 150-450 [facility] Comment on above: Performed By: #### U RTPCR #### [facility] [address] [place] [address] Dr. Sarah Sánchez RBC 3.23 106/ul Critically low 4.70-6.10 [facility] Comment on above: Performed By: #### U RTPCR #### [facility] [address] [place], [place] [address] Dr. Sarah Sánchez WBC 8.1 103/ul Normal 4.0-11.0 [facility] Comment on above: Performed By: #### U RTPCR #### [facility] [address] [place], [place] [address] Dr. Sarah Sánchez 36on 06-13-2022 36 I will call her and let her know [facility] fax number. Normal [facility] CT LUMBAR SPINE WO CONTRASTo n 06-04-2022 CT LUMBAR SPINE WO CONTRAST EXAMINATION: CT OF THE LUMBAR SPINE WITHOUT CONTRAST 05/30/2022 TECHNIQUE: CT of the lumbar spine was performed without the administration of intravenous contrast. Multiplanar reformatted images are provided for review. Adjustment of mA and/or kV according to patient size was utilized. Automated exposure control, iterative reconstruction, and/or weight based adjustment of the mA/kV was utilized to reduce the radiation dose to as low as reasonably achievable. COMPARISON: MRI 05/08/2022 HISTORY: ORDERING SYSTEM PROVIDED HISTORY: Spinal stenosis, lumbar region, without neurogenic claudication FINDINGS: BONES/ALIGNMENT: Similar alignment of the lumbar spine with slight retrolisthesis L1-L2, L2-L3 and L3-L4 with minimal anterolisthesis L5-S1 likely due to facet disease.. The vertebral body heights are maintained. No osseous destructive lesion is seen. There is apparent fusion of the L2 and L3 vertebral bodies. Multilevel laminectomy/resectio n of the spinous processes L2-L5 with posterolateral fusion. Old left 12th rib fracture. Degenerative changes with partial bony bridging of the SI joints. DEGENERATIVE CHANGES: Multilevel degenerative changes and DISH with prominent partially bridging anterolateral osteophytes/syndesmo phytes most notable at L3-L4 and L4-L5. At L1-L2 there is disc osteophyte complex with facet arthropathy and ligamentum flavum thickening resulting in at least mild spinal and left neural foraminal stenosis. At L2-L3 there is lnrc-yy-ekvaztyl bilateral neural foraminal stenosis. At L3-L4 mild disc bulging, facet arthropathy, and ligamentum flavum thickening results in at least mild spinal and bilateral neural foraminal stenosis. At L4-L5 there is at least mild spinal stenosis and moderate to severe bilateral neural foraminal stenosis, greater on the right. At L5-S1 there are severe disc degenerative changes with vacuum disc phenomena and gas extending to the left subarticular region. Marked bilateral facet arthropathy. Combination results in moderate spinal stenosis with moderate to severe bilateral neural foraminal stenosis. SOFT TISSUES/RETROPERITON EUM: No paraspinal mass is seen. IMPRESSION: Multilevel advanced lumbar spondylotic changes. Previous lumbar surgery. Interpreted by: Grabiel Sutton MD Signed by: Grabiel Sutton MD 06/04/22 Final result Normal [facility] CT THORACIC SPINE WO CONTRAS Ton 06-04-2022 CT THORACIC SPINE WO CONTRAST EXAMINATION: CT OF THE THORACIC SPINE WITHOUT CONTRAST 05/30/2022 1:38 pm TECHNIQUE: CT of the thoracic spine was performed without the administration of intravenous contrast. Multiplanar reformatted images are provided for review. Automated exposure control, iterative reconstruction, and/or weight based adjustment of the mA/kV was utilized to reduce the radiation dose to as low as reasonably achievable. COMPARISON: MRI lumbar spine 05/08/2022 HISTORY: ORDERING SYSTEM PROVIDED HISTORY: Spinal stenosis, lumbar region, without neurogenic claudication FINDINGS: BONES/ALIGNMENT: There is curvature of the upper thoracic spine. The vertebral body heights are maintained. No osseous destructive lesion is seen. Tiny bone island in T3. Old left 12th rib fracture. DEGENERATIVE CHANGES: Disc degenerative changes C6-C7. Multilevel advanced degenerative changes and DISH mostly in the mid and lower thoracic spine. Prominent partially bridging osteophytes/syndesmo phytes in the lower thoracic spine. Intervertebral disc calcification at T7-T8 and T8-T9. Vacuum disc phenomena at T9-T10 and T10-T11. At T8-T9 there are disc degenerative changes with bilateral facet arthropathy. Fuhh-gv-htusyjhd right neural foraminal stenosis. Advanced disc degenerative changes T9-T10 with vnxy-ew-xcqwcqak right neural foraminal stenoses. At T10-T11 there is disc osteophyte complex and bilateral facet arthropathy with ligamentum flavum thickening resulting in mild spinal stenosis. No large disc herniation or high-grade spinal stenosis identified within limits of the exam. Suggest MRI if additional imaging is warranted clinically. SOFT TISSUES: No paraspinal mass is seen. Coronary vascular calcifications. Partially visualized clips in the right neck. IMPRESSION: Multilevel moderate thoracic spondylotic changes predominantly in the mid to lower thoracic spine. Interpreted by: Grabiel Sutton MD Signed by: Grabiel Sutton MD 06/04/22 Final result Normal [facility] DEXA BONE DENSITY AXIAL SKEL Jossn 05-30-2022 DEXA BONE DENSITY AXIAL SKELETON EXAMINATION: BONE DENSITOMETRY 05/30/2022 11:17 am TECHNIQUE: A bone density dual x-ray absorptiometry (DXA) scan was performed of the lumbar spine and left hip on a VHSquared system. COMPARISON: None. HISTORY: ORDERING SYSTEM PROVIDED HISTORY: Osteopenia of lumbar spine Gender: M Age: 71 y/o FINDINGS: LUMBAR SPINE: L1-L4 BMD: 2.579 g/cm2 T-score: 11.3 Z-score: 11.9 LEFT TOTAL HIP: BMD: 1.212 g/cm2 T-score: 0.8 Z-score: 1.5 LEFT FEMORAL NECK: BMD: 1.204 g/cm2 T-score: 1.0 Z-score: 2.3 FRAX: Not Indicated. IMPRESSION: Normal bone mineral density by WHO criteria. RECOMMENDATIONS: 1. All patients should optimize their calcium and vitamin D intake. 2. Consider FDA-approved medical therapies in postmenopausal women and men aged 50 years and older, based on the following: - A hip or vertebral (clinical or morphometric) fracture - T-score less than or equal to -2.5 at the femoral neck or spine after appropriate evaluation to exclude secondary causes - Low bone density (T-score between -1.0 and -2.5 at the femoral neck or spine) and a 10-year probability of a hip fracture greater than or equal to 3% or a 10-year probability of a major osteoporosis-related fracture greater than or equal to 20% based on FRAX calculation. - Clinician judgment and/or patient preferences may indicate treatment for people with 10-year fracture probabilities above or below these levels - Further guidance on treatment can be found at the National Osteoporosis Foundation's website bonesource.org. 3. Patients with diagnosis of osteoporosis or at high risk for fracture should have regular bone mineral density tests. For patients eligible for Medicare, routine testing is allowed once every 2 years. The testing frequency can be increased to one year for patients who have rapidly progressing disease, those who are receiving or discontinuing medical therapy to restore bone mass or have additional risk factors. Template code: [id number] Interpreted by: Rakesh Atwood DO Signed by: Rakesh tAwood DO 05/30/22 Final result Normal [facility] Normal bone mineral density by WHO criteria. RECOMMENDATIONS: 1. All patients should optimize their calcium and vitamin D intake. 2. Consider FDA-approved medical therapies in postmenopausal women and men aged 50 years and older, based on the following: - A hip or vertebral (clinical or morphometric) fracture - T-score less than or equal to -2.5 at the femoral neck or spine after appropriate evaluation to exclude secondary causes - Low bone density (T-score between -1.0 and -2.5 at the femoral neck or spine) and a 10-year probability of a hip fracture greater than or equal to 3% or a 10-year probability of a major osteoporosis-related fracture greater than or equal to 20% based on FRAX calculation. - Clinician judgment and/or patient preferences may indicate treatment for people with 10-year fracture probabilities above or below these levels - Further guidance on treatment can be found at the National Osteoporosis Foundation's website bonesource.org. 3. Patients with diagnosis of osteoporosis or at high risk for fracture should have regular bone mineral density tests. For patients eligible for Medicare, routine testing is allowed once every 2 years. The testing frequency can be increased to one year for patients who have rapidly progressing disease, those who are receiving or discontinuing medical therapy to restore bone mass or have additional risk factors. Template code: [id number] [facility] EXAMINATION: BONE DENSITOMETRY 05/30/2022 11:17 am TECHNIQUE: A bone density dual x-ray absorptiometry (DXA) scan was performed of the lumbar spine and left hip on a VHSquared system. COMPARISON: None. HISTORY: ORDERING SYSTEM PROVIDED HISTORY: Osteopenia of lumbar spine Gender: M Age: 71 y/o FINDINGS: LUMBAR SPINE: L1-L4 BMD: 2.579 g/cm2 T-score: 11.3 Z-score: 11.9 LEFT TOTAL HIP: BMD: 1.212 g/cm2 T-score: 0.8 Z-score: 1.5 LEFT FEMORAL NECK: BMD: 1.204 g/cm2 T-score: 1.0 Z-score: 2.3 FRAX: Not Indicated. [facility] Rakesh Atwood DO - 05/30/2022 EXAMINATION: BONE DENSITOMETRY 05/30/2022 11:17 am TECHNIQUE: A bone density dual x-ray absorptiometry (DXA) scan was performed of the lumbar spine and left hip on a VHSquared system. COMPARISON: None. HISTORY: ORDERING SYSTEM PROVIDED HISTORY: Osteopenia of lumbar spine Gender: M Age: 71 y/o FINDINGS: LUMBAR SPINE: L1-L4 BMD: 2.579 g/cm2 T-score: 11.3 Z-score: 11.9 LEFT TOTAL HIP: BMD: 1.212 g/cm2 T-score: 0.8 Z-score: 1.5 LEFT FEMORAL NECK: BMD: 1.204 g/cm2 T-score: 1.0 Z-score: 2.3 FRAX: Not Indicated. IMPRESSION: Normal bone mineral density by WHO criteria. RECOMMENDATIONS: 1. All patients should optimize their calcium and vitamin D intake. 2. Consider FDA-approved medical therapies in postmenopausal women and men aged 50 years and older, based on the following: - A hip or vertebral (clinical or morphometric) fracture - T-score less than or equal to -2.5 at the femoral neck or spine after appropriate evaluation to exclude secondary causes - Low bone density (T-score between -1.0 and -2.5 at the femoral neck or spine) and a 10-year probability of a hip fracture greater than or equal to 3% or a 10-year probability of a major osteoporosis-related fracture greater than or equal to 20% based on FRAX calculation. - Clinician judgment and/or patient preferences may indicate treatment for people with 10-year fracture probabilities above or below these levels - Further guidance on treatment can be found at the National Osteoporosis Foundation's website bonesource.org. 3. Patients with diagnosis of osteoporosis or at high risk for fracture should have regular bone mineral density tests. For patients eligible for Medicare, routine testing is allowed once every 2 years. The testing frequency can be increased to one year for patients who have rapidly progressing disease, those who are receiving or discontinuing medical therapy to restore bone mass or have additional risk factors. Template code: [id number] [employer] Phone: Radiology Study observation (narrative) [employer] Phone: DEXA BONE DENSITY AXIAL SKEL ETONOrdered By: Rakesh Atwood on 05-30-2022 [email or web address] Work Phone: MRI LUMBAR SPINE WO CONTRAST on 05-08-2022 MRI LUMBAR SPINE WO CONTRAST EXAMINATION: MRI OF THE LUMBAR SPINE WITHOUT CONTRAST, 05/08/2022 10:12 am TECHNIQUE: Multiplanar multisequence MRI of the lumbar spine was performed without the administration of intravenous contrast. COMPARISON: None. HISTORY: ORDERING SYSTEM PROVIDED HISTORY: Spondylosis of lumbosacral region without myelopathy or radiculopathy TECHNOLOGIST PROVIDED HISTORY: What is the sedation requirement?->None FINDINGS: BONES/ALIGNMENT: The study is degraded by motion artifact. No acute fracture or traumatic subluxation is identified. There is a normal lumbar lordosis. Grade 1 retrolisthesis of L1 on L2, L2 on L3, and L3 on L4 is noted. There is also grade 1 anterolisthesis of L5 on S1. This is likely due to facet arthropathy. There is fusion of the L2 and L3 vertebral bodies and moderate to severe degenerative disc disease. The conus medullaris ends at L1 is within normal limits. The patient is status post multilevel lumbar laminectomies with posterolateral fusion. SPINAL CORD: The conus terminates normally. SOFT TISSUES: No paraspinal mass identified. L1-L2: Retrolisthesis and disc bulge as well as a superimposed 5 mm right paracentral disc protrusion resulting in mild narrowing of the thecal sac. There is moderate narrowing of the left neural foramen. L2-L3: Retrolisthesis and facet hypertrophy resulting in moderate right and mild left-sided neural foraminal narrowing. L3-L4: Retrolisthesis and facet hypertrophy resulting in scla-[id number]-wdebsjvi right and moderate to severe left-sided neural foraminal stenosis. L4-L5: Disc bulge and facet hypertrophy resulting in severe bilateral neural foraminal stenosis with mild impingement of the exiting right L4 nerve root. L5-S1: Uncovering of the disc due to anterolisthesis with a superimposed disc bulge and facet hypertrophy. There is moderate narrowing of the thecal sac and severe narrowing of both neural foramen with impingement of both exiting L5 nerve roots. IMPRESSION: Degenerative and operative changes as detailed above. Nerve root impingement at L4-5 and L5-S1. Interpreted by: John Vega MD Signed by: John Vega MD 05/08/22 Final result Normal [facility] Degenerative and operative changes as detailed above. Nerve root impingement at L4-5 and L5-S1. [facility] EXAMINATION: MRI OF THE LUMBAR SPINE WITHOUT CONTRAST, 05/08/2022 10:12 am TECHNIQUE: Multiplanar multisequence MRI of the lumbar spine was performed without the administration of intravenous contrast. COMPARISON: None. HISTORY: ORDERING SYSTEM PROVIDED HISTORY: Spondylosis of lumbosacral region without myelopathy or radiculopathy TECHNOLOGIST PROVIDED HISTORY: What is the sedation requirement?->None FINDINGS: BONES/ALIGNMENT: The study is degraded by motion artifact. No acute fracture or traumatic subluxation is identified. There is a normal lumbar lordosis. Grade 1 retrolisthesis of L1 on L2, L2 on L3, and L3 on L4 is noted. There is also grade 1 anterolisthesis of L5 on S1. This is likely due to facet arthropathy. There is fusion of the L2 and L3 vertebral bodies and moderate to severe degenerative disc disease. The conus medullaris ends at L1 is within normal limits. The patient is status post multilevel lumbar laminectomies with posterolateral fusion. SPINAL CORD: The conus terminates normally. SOFT TISSUES: No paraspinal mass identified. L1-L2: Retrolisthesis and disc bulge as well as a superimposed 5 mm right paracentral disc protrusion resulting in mild narrowing of the thecal sac. There is moderate narrowing of the left neural foramen. L2-L3: Retrolisthesis and facet hypertrophy resulting in moderate right and mild left-sided neural foraminal narrowing. L3-L4: Retrolisthesis and facet hypertrophy resulting in [id number]-oa-icmneugb right and moderate to severe left-sided neural foraminal stenosis. L4-L5: Disc bulge and facet hypertrophy resulting in severe bilateral neural foraminal stenosis with mild impingement of the exiting right L4 nerve root. L5-S1: Uncovering of the disc due to anterolisthesis with a superimposed disc bulge and facet hypertrophy. There is moderate narrowing of the thecal sac and severe narrowing of both neural foramen with impingement of both exiting L5 nerve roots. [facility] John Vega MD - 05/08/2022 EXAMINATION: MRI OF THE LUMBAR SPINE WITHOUT CONTRAST, 05/08/2022 10:12 am TECHNIQUE: Multiplanar multisequence MRI of the lumbar spine was performed without the administration of intravenous contrast. COMPARISON: None. HISTORY: ORDERING SYSTEM PROVIDED HISTORY: Spondylosis of lumbosacral region without myelopathy or radiculopathy TECHNOLOGIST PROVIDED HISTORY: What is the sedation requirement?->None FINDINGS: BONES/ALIGNMENT: The study is degraded by motion artifact. No acute fracture or traumatic subluxation is identified. There is a normal lumbar lordosis. Grade 1 retrolisthesis of L1 on L2, L2 on L3, and L3 on L4 is noted. There is also grade 1 anterolisthesis of L5 on S1. This is likely due to facet arthropathy. There is fusion of the L2 and L3 vertebral bodies and moderate to severe degenerative disc disease. The conus medullaris ends at L1 is within normal limits. The patient is status post multilevel lumbar laminectomies with posterolateral fusion. SPINAL CORD: The conus terminates normally. SOFT TISSUES: No paraspinal mass identified. L1-L2: Retrolisthesis and disc bulge as well as a superimposed 5 mm right paracentral disc protrusion resulting in mild narrowing of the thecal sac. There is moderate narrowing of the left neural foramen. L2-L3: Retrolisthesis and facet hypertrophy resulting in moderate right and mild left-sided neural foraminal narrowing. L3-L4: Retrolisthesis and facet hypertrophy resulting in ruwz-jz-kjofemla right and moderate to severe left-sided neural foraminal stenosis. L4-L5: Disc bulge and facet hypertrophy resulting in severe bilateral neural foraminal stenosis with mild impingement of the exiting right L4 nerve root. L5-S1: Uncovering of the disc due to anterolisthesis with a superimposed disc bulge and facet hypertrophy. There is moderate narrowing of the thecal sac and severe narrowing of both neural foramen with impingement of both exiting L5 nerve roots. IMPRESSION: Degenerative and operative changes as detailed above. Nerve root impingement at L4-5 and L5-S1. [employer] Phone: Radiology Study observation (narrative) [employer] Phone: MRI LUMBAR SPINE WO CONTRAST Ordered By: John Vega on 05-08-2022 [employer] Phone: PTH INTACTon 05-08-2022 PTH, Intact 81 pg/mL Critically high 15-65 [facility] Comment on above: Performed By: #### U DELFINO, RENAL, MG #### [facility] [address] [place] [address] Dr. Sarah Sánchez FERRITINon 05-07-2022 Ferritin [Mass/Vol] 96.0 ng/mL Normal 26.0-388.0 [facility] Comment on above: Performed By: #### U RTPCR #### [facility] [address] [place] [address] Dr. Sarah Sánchez HEMOGRAM AND PLATELon 2022 Hematocrit (Bld) [Volume fraction] 24.6 % Critically low 42.0-54.0 [facility] Comment on above: Performed By: #### U DELFINO, RENAL, MG #### [facility] [address] [place] [address] Dr. Sarah Sánchez Hemoglobin (Bld) [Mass/Vol] 8.7 g/dL Critically low 14.0-18.0 [facility] Comment on above: Performed By: #### U DELFINO, RENAL, MG #### [facility] [address] [place] [address] Dr. Sarah Sánchez MCH (RBC) [Entitic mass] 31.2 pg Normal 25.9-34.0 [facility] Comment on above: Performed By: #### U DELFINO, RENAL, MG #### [facility] [address] [place] [address] Dr. Sarah Sánchez MCHC (RBC) [Mass/Vol] 35.4 g/dL Critically high 29.9-35.2 [facility] Comment on above: Performed By: #### U DELFINO, RENAL, MG #### [facility] [address] [place] [address] Dr. Sarah Sánchez MCV (RBC) [Entitic vol] 88.2 fL Normal 80.0-94.0 [facility] Comment on above: Performed By: #### U DELFINO, RENAL, MG #### [facility] [address] [place] [address] Dr. Sarah Sánchez PLT 204 103/ul Normal 150-450 [facility] Comment on above: Performed By: #### U DELFINO, RENAL, MG #### [facility] [address] [place] [address] Dr. Sarah Sánchez RBC 2.79 106/ul Critically low 4.70-6.10 [facility] Comment on above: Performed By: #### U DELFINO, RENAL, MG #### [facility] [address] [place] [address] Dr. Sarah Sánchez WBC 6.9 103/ul Normal 4.0-11.0 [facility] Comment on above: Performed By: #### U DELFINO, RENAL, MG #### [facility] [address] [place] [address] Dr. Sarah Sánchez IRON AND TIBCon 05-07-2022 % SATURATION 28.3 % Normal [facility] Comment on above: Performed By: #### U RTPCR #### [facility] [address] [place] [address] Dr. Sarah Sánchez Iron [Mass/Vol] 72.0 ug/dL Normal 65.0-175.0 [facility] Comment on above: Performed By: #### U RTPCR #### [facility] [address] [place] [address] Dr. Sarah Sánchez TIBC DIRECT 254.0 ug/dL Normal 250.0-450.0 [facility] Comment on above: Performed By: #### U RTPCR #### [facility] [address] [place] [address] Dr. Sarah Sánchez MAGNESIUMon 05-07-2022 Magnesium [Mass/Vol] 1.7 mg/dL Critically low 1.8-2.4 [facility] Comment on above: Performed By: #### H BSANS #### [facility] [address] [place] [address] Dr. Sarah Sánchez RENAL FUNCTION PANELon 05-07 Albumin [Mass/Vol] 3.2 g/dL Critically low 3.4-5.0 [facility] Comment on above: Performed By: #### C VDTBH #### [facility] [address] [address] [address] Sarah Sánchez Calcium [Mass/Vol] 8.5 mg/dL Normal 8.5-10.1 [facility] Comment on above: Performed By: #### C VDTBH #### [facility] [address] [address] [address] Sarah Sánchez Chloride [Moles/Vol] 106 mmol/L Normal 98-107 [facility] Comment on above: Performed By: #### C VDTBH #### [facility] [address] [address] [address] Sarah Sánchez CO2 [Moles/Vol] 28.1 mmol/L Normal 21.0-32.0 [facility] Comment on above: Performed By: #### C VDTBH #### [facility] [address] [place] [address] Dr. Sarah Sánchez Creatinine [Mass/Vol] 2.10 mg/dL Critically high 0.70-1.30 [facility] Comment on above: Performed By: #### C VDTBH #### [facility] [address] [place] [address] Dr. Sarah Sánchez EGFR-AF MALDIVIAN 38 mL/min/1.73m2 Critically low >=60 [facility] Comment on above: Performed By: #### C VDTBH #### [facility] [address] [place] [address] Dr. Sarah Sánchez EGFR-NON AF MALDIVIAN 31 mL/min/1.73m2 Critically low >=60 [facility] Comment on above: Performed By: #### C VDTBH #### [facility] [address] [place] [address] Dr. Sarah Sánchez Glucose [Mass/Vol] 141 mg/dL Critically high 74-106 [facility] Comment on above: Performed By: #### C VDTBH #### [facility] [address] [place] [address] Dr. Sarah Sánchez Phosphate [Mass/Vol] 4.1 mg/dL Normal 2.6-4.7 [facility] Comment on above: Performed By: #### C VDTBH #### [facility] [address] [address] [address] Sarah Sánchez Potassium [Moles/Vol] 5.2 mmol/L Critically high 3.5-5.1 [facility] Comment on above: Performed By: #### C VDTBH #### [facility] [address] [place] [address] Dr. Sarah Sánchez Sodium [Moles/Vol] 141 mmol/L Normal 136-145 [facility] Comment on above: Performed By: #### C VDTBH #### [facility] [address] [place] [address] Dr. Sarah Sánchez Urea nitrogen [Mass/Vol] 34.0 mg/dL Critically high 7.0-18.0 [facility] Comment on above: Performed By: #### C VDTBH #### [facility] [address] [place] [address] Dr. Sarah Sánchez UA RANDOM W/MICROSCOPICon BACTERIA NONE SEEN Normal NONE SEEN [facility] Comment on above: Performed By: #### U AMIC #### [facility] [address] [place] [address] Dr. Sarah Sánchez Bilirubin Ql (U) Negative Normal NEGATIVE [facility] Comment on above: Performed By: #### U AMIC #### [facility] [address] [place] [address] Dr. Sarah Sánchez CAST NONE SEEN Normal NONE SEEN [facility] Comment on above: Performed By: #### U AMIC #### [facility] [address] [place] [address] Dr. Sarah Sánchez Clarity (U) CLEAR Normal CLEAR [facility] Comment on above: Performed By: #### U AMIC #### [facility] [address] [place] [address] Dr. Sarah Sánchez Color (U) LT. YELLOW Normal YELLOW [facility] Comment on above: Performed By: #### U AMIC #### [facility] [address] [place] [address] Dr. Sarah Sánchez Crystals LM Nom (Urine sed) NONE SEEN Normal NONE SEEN [facility] Comment on above: Performed By: #### U AMIC #### [facility] [address] [address] [address] Sarah Sánchez Epithelial cells LM Ql (Urine sed) FEW Abnormal NONE SEEN /RARE [facility] Comment on above: Performed By: #### U AMIC #### [facility] [address] [address] [address] Sarah Sánchez Glucose Ql (U) Negative Normal NEGATIVE [facility] Comment on above: Performed By: #### U AMIC #### [facility] [address] [address] [address] Sarah Sánchez Hemoglobin Ql (U) SMALL Abnormal NEGATIVE [facility] Comment on above: Performed By: #### U AMIC #### [facility] [address] [place] [address] Dr. Sarah Sánchez Ketones Ql (U) Negative Normal NEGATIVE [facility] Comment on above: Performed By: #### U AMIC #### [facility] [address] [address] [address] Sarah Sánchez LEUKOCYTES Negative Normal NEGATIVE [facility] Comment on above: Performed By: #### U AMIC #### [facility] [address] [address] [address] Sarah Sánchez MUCOUS SMALL Abnormal NONE SEEN [facility] Comment on above: Performed By: #### U AMIC #### [facility] [address] [address] [address] Sarah Sánchez Nitrite Ql (U) Negative Normal NEGATIVE [facility] Comment on above: Performed By: #### U AMIC #### [facility] [address] [address] [address] Sarah Sánchez pH (U) 5.5 [pH] Normal 5-9 [facility] Comment on above: Performed By: #### U AMIC #### [facility] [address] [place] [address] Dr. Sarah Sánchez RBC 0-2 Normal 0-2 [facility] Comment on above: Performed By: #### U AMIC #### [facility] [address] [address] [address] Sarah Sánchez SPEC GRAVITY 1.020 Normal 1.005-<=1.02 5 [facility] Comment on above: Performed By: #### U AMIC #### [facility] [address] [address] [address] Sarah Sánchez UA PROTEIN >300 Abnormal NEGATIVE/ TRACE [facility] Comment on above: Performed By: #### U AMIC #### [facility] [address] [address] [address] Sarah Sánchez Urobilinogen Qn (U) 0.2 {Stevie'U}/dL Normal 0.2 - 1. 0 [facility] Comment on above: Performed By: #### U AMIC #### [facility] [address] [place] [address] Dr. Sarah Sánchez WBC NONE SEEN Normal NONE SEEN [facility] Comment on above: Performed By: #### U AMIC #### [facility] [address] [place] [address] Dr. Sarah Sánchez URIC ACID SERUMon 05-07-2022 Urate [Mass/Vol] 6.6 mg/dL Normal 3.5-7.2 [facility] Comment on above: Performed By: #### C VDTBH #### [facility] [address] [place] [address] Dr. Sarah Sánchez URINE T PROTEIN CREAT RATIOo n 05-07-2022 Protein (U) [Mass/Vol] 422.7 mg/dL Critically high <=12.0 [facility] Comment on above: Performed By: #### U DELFINO, RENAL, MG #### [facility] [address] [address] [address] Sarah Sánchez UR PROT CREAT RAT 4.90 Normal [facility] Comment on above: Performed By: #### U DELFINO, RENAL, MG #### [facility] [address] [place] [address] Dr. Sarah Sánchez URINE CREAT 86.31 mg/dL Normal 20.00-300.00 [facility] Comment on above: Performed By: #### U DELFINO, RENAL, MG #### [facility] [address] [address] [address] Sarah Sánchez VIT B12 AND FOLATEon 023 Cobalamin (Vitamin B12) [Mass/Vol] 824.0 pg/mL Normal 193.0-986.0 [facility] Comment on above: Performed By: #### U RTPCR #### [facility] [address] [address] [address] Sarah Sánchez FOLATE 21.80 ng/mL Normal 8.60-58.90 [facility] Comment on above: Performed By: #### U RTPCR #### [facility] [address] [place] [address] Dr. Sarah Sánchez VITAMIN D 25 OHon 05-07-2022 VIT D 25-OH 21.5 ng/mL Normal [facility] Comment on above: Performed By: #### U RTPCR #### [facility] [address] [address] [address] Sarah Sánchez VIT D RANGES SEE BELOW Normal [facility] Comment on above: Result Comment: <20 ng/mL Vit D deficient 20 - <30 ng/mL Vit D insufficient 30 - 100 ng/mL Vit D sufficient >100 ng/mL Potential Toxicity Performed By: #### U RTPCR #### [facility] [address] [place] [address] Dr. Sarah Sánchez Glucose Glucometer ([facility]) [M ass/Vol]Ordered By: Orlando Beaver on 04-16-2022 Glucose [Mass/Vol] 150 mg/dL [facility] Comment on above: Random Glucose Refer ence Range is dependent on time and content of last meal. Glucose of more than 200 mg/dL in a nonstressed, ambulatory subject supports the diagnosis of Diabetes Mellitus. Glucose Poct Glucometerson 0 04-16-2022 Glucose [Mass/Vol] 150 mg/dL Normal [facility] Comment on above: Result Comment: [place] om Glucose Reference Range is dependent on time and content of last meal. Glucose of more than 200 mg/dL in a nonstressed, ambulatory subject supports the diagnosis of Diabetes Mellitus. PERFORMED BY: [facility] [place] [address] PATHOLOGIST [employer]AUGER DIANA STEPHENS M.D. Performed By: #### G LIGIA #### Point of Care testing , Benji 04-16-2022 L Specimen: [id number] Received: 04/16/22 Status: LILI Romero Num: [id number] Spec Type: Surgical Subm Dr: Orlando Beaver MD Tissues: A Colon Biopsy (DESCENDING COLON POLYP) Procedures: Vida GALAVIZ/Rubi Holguin Age/ Patient Sex Location Account Attending Physician Omer Santos/M [id number] Orlando Beaver MD SPEC NUM: [id number] RECD: 04/16/22 STATUS: LILI ROMEOR NUM: [id number] MARGOTH: 04/16/22 [facility] DR: Orlando Beaver MD ENTERED: 04/16/22 [facility] DR: SPEC TYPE: Surgical DEPT: S ORDERED: HE/2, Gross/Micro L4 ORDERED: HE/2, Gross/Micro L4 Pathological Diagnosis Colon, descending, polypectomy: -Tubular adenoma. Clinical Information History colon polyp Gross Description Received in formalin labeled with the patient's name, number and descending colon polypectomy is one fragment of soft ferrell tissue measuring 0.4 cm. Entirely submitted in one cassette labeled A1. Microscopic Description Two glass slides with H E stained material have been examined. The microscopic findings support the above pathologic diagnosis. CPT Codes 64339 Specimen: [id number] Received: 04/16/22 Status: LILI Romero Num: [id number] Spec Type: Surgical Subm Dr: Orlando Beaver MD Tissues: A Colon Biopsy (DESCENDING COLON POLYP) Procedures: HE/2, Gross/Micro L4 Patient: Omer Santos [id number] (Continued) Signed (signature on file) Ann Baez MD 04/17/22 1329 Normal [facility] GLYCOHEMOGLOBIN A1Con 2022 ADA RECOMMENDATION SEE BELOW Normal [facility] Comment on above: Result Comment: ADA RECOMMENDED LIMIT 4.0 - 6.0 ADA THERAPEUTIC TARGET < 7.0 ACTION SUGGESTED > 7.0 Performed By: #### H BSANS #### [facility] [address] [place] [address] Dr. Sarah Sánchez Glucose [Mass/Vol] 177 mg/dL Normal [facility] Comment on above: Performed By: #### H BSANS #### [facility] [address] [address] [address] Sarah Sánchez HbA1c (Bld) [Mass fraction] 7.8 % Critically high 4.5-6.2 [facility] Comment on above: Performed By: #### H BSANS #### [facility] [address] [address] [address] Sarah Sánchez LIPID PROFILEon 04-13-2022 CHOL-HDL RATIO NORM SEE BELOW Normal [facility] Comment on above: Result Comment: 3.3 - 4.4 LOW RISK 4.4 - 7.1 AVERAGE RISK 7.1 - 11.0 MODERATE RISK >11.0 HIGH RISK Performed By: #### U RTPCR #### [facility] [address] [address] [address] Sarah Sánchez Cholesterol [Mass/Vol] 124 mg/dL Normal <=200 Th [facility] Comment on above: Performed By: #### U RTPCR #### [facility] [address] [address] [address] Sarah Sánchez Cholesterol in HDL [Mass/Vol] 38 mg/dL Critically low 40-60 [facility] Comment on above: Performed By: #### U RTPCR #### [facility] [address] [address] [address] Sarah Sánchez Cholesterol in LDL [Mass/Vol] 51.8 mg/dL Normal [facility] Comment on above: Performed By: #### U RTPCR #### [facility] [address] [address] [address] Sarah Sánchez Cholesterol.total/Chol esterol in HDL [Mass ratio] 3.3 {ratio} Normal [facility] Comment on above: Performed By: #### U RTPCR #### [facility] [address] [address] [address] Sarah Sánchez HDL NORMAL > or = 60 mg/dl - LOW CARDIOVASCULAR RISK <40 mg/dl - HIGH CARDIOVASCULAR RISK Normal [facility] Comment on above: Performed By: #### U RTPCR #### [facility] [address] [address] [address] Sarah Sánchez LDL CALC NORMAL SEE BELOW Normal [facility] Comment on above: Result Comment: <100 mg/dl OPTIMAL 100 - 129 mg/dl NEAR OR ABOVE OPTIMAL 130 - 159 mg/dl BORDERLINE HIGH 160 - 189 mg/dl HIGH >190 mg/dl VERY HIGH Performed By: #### U RTPCR #### [facility] [address] [address] [address] Sarah Sánchez Triglyceride [Mass/Vol] 171 mg/dL Critically high <=150 [facility] Comment on above: Performed By: #### U RTPCR #### [facility] [address] [address] [address] Sarah Sánchez VLDL CALC 34.2 mg/dL Normal [facility] Comment on above: Performed By: #### U RTPCR #### [facility] [address] [place] [address] Dr. Sarah Sánchez PROF 14(COMP METB)on 023 Albumin [Mass/Vol] 2.9 g/dL Critically low 3.4-5.0 Th [facility] Comment on above: Performed By: #### U RTPCR #### [facility] [address] [place] [address] Dr. Sarah Sánchez Albumin/Globulin [Mass ratio] 0.9 {ratio} Normal [facility] Comment on above: Performed By: #### U RTPCR #### [facility] [address] [place] [address] Dr. Sarah Sánchez ALP [Catalytic activity/Vol] 94 U/L Normal 46-116 [facility] Comment on above: Performed By: #### U RTPCR #### [facility] [address] [place] [address] Dr. Sarah Sánchez ALT [Catalytic activity/Vol] 21 U/L Normal 16-63 [facility] Comment on above: Performed By: #### U RTPCR #### [facility] [address] [place] [address] Dr. Sarah Sánchez Anion gap [Moles/Vol] 11.4 mmol/L Normal Th [facility] Comment on above: Performed By: #### U RTPCR #### [facility] [address] [place] [address] Dr. Sarah Sánchez AST [Catalytic activity/Vol] 19 U/L Normal 15-37 [facility] Comment on above: Performed By: #### U RTPCR #### [facility] [address] [place] [address] Dr. Sarah Sánchez Bilirubin [Mass/Vol] 0.5 mg/dL Normal 0.2-1.0 [facility] Comment on above: Performed By: #### U RTPCR #### [facility] [address] [place] [address] Dr. Sarah Sánchez Calcium [Mass/Vol] 8.4 mg/dL Critically low 8.5-10.1 Th [facility] Comment on above: Performed By: #### U RTPCR #### [facility] [address] [address] [address] Sarah Sánchez Chloride [Moles/Vol] 106 mmol/L Normal 98-107 [facility] Comment on above: Performed By: #### U RTPCR #### [facility] [address] [address] [address] Sarah Sánchez CO2 [Moles/Vol] 27.3 mmol/L Normal 21.0-32.0 [facility] Comment on above: Performed By: #### U RTPCR #### [facility] [address] [place] [address] Dr. Sarah Sánchez Creatinine [Mass/Vol] 2.40 mg/dL Critically high 0.70-1.30 [facility] Comment on above: Performed By: #### U RTPCR #### [facility] [address] [place] [address] Dr. Sarah Sánchez EGFR-AF MALDIVIAN 32 mL/min/1.73m2 Critically low >=60 [facility] Comment on above: Performed By: #### U RTPCR #### [facility] [address] [place] [address] Dr. Sarah Sánchez EGFR-NON AF MALDIVIAN 27 mL/min/1.73m2 Critically low >=60 [facility] Comment on above: Performed By: #### U RTPCR #### [facility] [address] [place] [address] Dr. Sarah Sánchez Globulin (S) [Mass/Vol] 3.1 g/dL Normal [facility] Comment on above: Performed By: #### U RTPCR #### [facility] [address] [address] [address] Sarah Sánchez Glucose [Mass/Vol] 159 mg/dL Critically high 74-106 [facility] Comment on above: Performed By: #### U RTPCR #### [facility] [address] [place] [address] Dr. Sarah Sánchez Potassium [Moles/Vol] 4.7 mmol/L Normal 3.5-5.1 [facility] Comment on above: Performed By: #### U RTPCR #### [facility] [address] [address] [address] Sarah Sánchez Protein [Mass/Vol] 6.0 g/dL Critically low 6.4-8.2 Th e [facility] Comment on above: Performed By: #### U RTPCR #### [facility] [address] [address] [address] Sarah Sánchez Sodium [Moles/Vol] 140 mmol/L Normal 136-145 [facility] Comment on above: Performed By: #### U RTPCR #### [facility] [address] [address] [address] Sarah Sánchez Urea nitrogen [Mass/Vol] 32.0 mg/dL Critically high 7.0-18.0 [facility] Comment on above: Performed By: #### U RTPCR #### [facility] [address] [place] [address] Dr. Sarah Sánchez Urea nitrogen/Creatinine [Mass ratio] 13.3 mg/mg Normal [facility] Comment on above: Performed By: #### U RTPCR #### [facility] [address] [place] [address] Dr. Sarah Sánchez COVID-19 SOFIAOrdered By: Rosalba Beaver on 04-12-2022 SARS-CoV+SARS-CoV-2 (COVID-19) Ag IA.rapid Ql (Resp) Negative Negative [facility] Comment on above: This is a duplicate Kyleigh SARS Antigen (SARA) result to be used for statistical tracking purpose only. No Panel InformationOrdered By: Orlando Beaver on 04-12-2022 SARS Antigen (LFIA) [facility] HEMOGRAM AND PLATELon 2021 Hematocrit (Bld) [Volume fraction] 29.0 % Critically low 42.0-54.0 [facility] Comment on above: Performed By: #### P THINT #### [facility] [address] [place] [address] Dr. Sarah Sánchez Hemoglobin (Bld) [Mass/Vol] 9.8 g/dL Critically low 14.0-18.0 [facility] Comment on above: Performed By: #### P THINT #### [facility] [address] [place] [address] Dr. Sarah Sánchez MCH (RBC) [Entitic mass] 30.1 pg Normal 25.9-34.0 [facility] Comment on above: Performed By: #### P THINT #### [facility] [address] [place] [address] Dr. Sarah Sánchez MCHC (RBC) [Mass/Vol] 33.8 g/dL Normal 29.9-35.2 [facility] Comment on above: Performed By: #### P THINT #### [facility] [address] [place] [address] Dr. Saarh Sánchez MCV (RBC) [Entitic vol] 89.0 fL Normal 80.0-94.0 [facility] Comment on above: Performed By: #### P THINT #### [facility] [address] [place] [address] Dr. Sarah Sánchez PLT 184 103/ul Normal 150-450 [facility] Comment on above: Performed By: #### P THINT #### [facility] [address] [place] [address] Dr. Sarah Sánchez RBC 3.26 106/ul Critically low 4.70-6.10 [facility] Comment on above: Performed By: #### P THINT #### [facility] [address] [place] [address] Dr. Sarah Sánchez WBC 7.7 103/ul Normal 4.0-11.0 [facility] Comment on above: Performed By: #### P THINT #### [facility] [address] [place] [address] Dr. Sarah Sánchez Covid-19 PCR ([facility])on 12-08 SARS-CoV-2 (COVID-19) RNA VINICIO+probe Ql (Unsp spec) Not detected Normal NOT DETECTED [facility] Comment on above: Result Comment: This test is not yet approved or cleared by the [place] FDA. When there are no FDA-approved or cleared tests available, and other criteria are met, FDA can make tests available under an emergency access mechanism called an Emergency Use Authorization (EUA). The EUA for this test is supported by the [place] of Health and Human Service's (HHS's) declaration that circumstances exist to justify the emergency use of in vitro diagnostics for the detection and/or diagnosis of the virus that causes COVID-19. This EUA will remain in effect (meaning this test can be used) for the duration of the COVID-19 declaration justifying emergency of IVDs, unless it is terminated or revoked by FDA (after which the test may no longer be used). When diagnostic testing is negative, the possibility of a false negative should be considered in the context of a patient's recent exposures and the presence of clinical signs and symptoms consistent with SARS-CoV-2. Performed By: #### C VDTB #### [facility] [address] [place] [address] Dr. Sarah Sánchez IMMUNOFIX ELEC, PROTEIN ELEC URINEon 12-13-2021 Albumin, U 71.9 % Normal [facility] Comment on above: Performed By: #### H BSANS #### [facility] [address] [place] [address] Dr. Sarah Sánchez Qgcss-8-Etmygwmx, U 3.3 % Normal The [facility] Comment on above: Performed By: #### H BSANS #### [facility] [address] [place] [address] Dr. Sarah Sánchez Aeift-8-Rqcqpkff, U 5.8 % Normal The [facility] Comment on above: Performed By: #### H BSANS #### [facility] [address] [place] [address] Dr. Sarah Sánchez Beta Globulin, U 10.2 % Normal The [facility] Comment on above: Performed By: #### H BSANS #### [facility] [address] [place] [address] Dr. Sarah Sánchez Gamma Globulin, U 8.7 % Normal The [facility] Comment on above: Performed By: #### H BSANS #### [facility] [address] [place] [address] Dr. Sarah Sánchez Immunofixation Result, Urine Comment Normal [facility] Comment on above: Result Comment: No m onoclonality detected. Performed By: #### H BSANS #### [facility] [address] [place] [address] Dr. Sarah Sánchez M-Jovon, % Not Observed Normal Not Observed [facility] Comment on above: Performed By: #### H BSANS #### [facility] [address] [place] [address] Dr. Sarah Sánchez Note: Comment Normal [facility] Comment on above: Result Comment: Prot ein electrophoresis scan will follow via computer, mail, or hall coordinator delivery. Performed By: #### H BSANS #### [facility] [address] [place] [address] Dr. Sarah Sánchez PDF . Normal [facility] Comment on above: Performed By: #### H BSANS #### [facility] [address] [place] [address] Dr. Sarah Sánchez Protein (U) [Mass/Vol] 315.2 mg/dL Normal Not Estab. T [facility] Comment on above: Result Comment: Resu lts confirmed on dilution. Performed By: #### H BSANS #### [facility] [address] [place] [address] Dr. Sarah Sánchez IMMUNOFIXATION(GRISELDA),PROTEIN ELEC(PE),FREon 12-13-2021 Albumin [Mass/Vol] 3.3 g/dL Normal 2.9-4.4 [facility] Comment on above: Performed By: #### U DELFINO, RENAL, MG #### [facility] [address] [place] [address] Dr. Sarah Sánchez Albumin/Globulin [Mass ratio] 1.3 {ratio} Normal 0.7-1.7 [facility] Comment on above: Performed By: #### U DELFINO, RENAL, MG #### [facility] [address] [place] [address] Dr. Sarah Sánchez Ggtkx-6-Zdldvrwx 0.2 g/dL Normal 0.0-0.4 [facility] Comment on above: Performed By: #### U DELFINO, RENAL, MG #### [facility] [address] [address] [address] Sarah Sánchez Klavj-0-Aftfbkry 0.8 g/dL Normal 0.4-1.0 The [facility] Comment on above: Performed By: #### U DELFINO, RENAL, MG #### [facility] [address] [address] [address] Sarah Sánchez Beta Globulin 0.9 g/dL Normal 0.7-1.3 The [facility] Comment on above: Performed By: #### U DELFINO, RENAL, MG #### [facility] [address] [address] [address] Sarah Sánchez [place] Lt Chains,S 41.7 mg/L Critically high 3.3-19.4 [facility] Comment on above: Performed By: #### U DELFINO, RENAL, MG #### [facility] [address] [address] [address] Sarah Sánchez Free [place]ambda Lt Chains,S 29.4 mg/L Critically high 5.7-26.3 [facility] Comment on above: Performed By: #### U DELFINO, RENAL, MG #### [facility] [address] [address] [address] Sarah Sánchez Gamma Globulin 0.7 g/dL Normal 0.4-1.8 The [facility] Comment on above: Performed By: #### U DELFINO, RENAL, MG #### [facility] [address] [address] [address] Sarah Sánchez Globulin (S) [Mass/Vol] 2.7 g/dL Normal 2.2-3.9 [facility] Comment on above: Performed By: #### U DELFINO, RENAL, MG #### [facility] [address] [address] [address] Sarah Sánchez Immunofixation Result, Serum Comment Normal [facility] Comment on above: Result Comment: No m onoclonality detected. Performed By: #### U DELFINO, RENAL, MG #### [facility] [address] [address] [address] Sarah Sánchez Immunoglobulin A, Qn, Serum 172 mg/dL Normal 61-437 [facility] Comment on above: Performed By: #### U DELFINO, RENAL, MG #### [facility] [address] [address] [address] Sarah Sánchez Immunoglobulin G, Qn, Serum 769 mg/dL Normal 603-1613 [facility] Comment on above: Performed By: #### U DELFINO, RENAL, MG #### [facility] [address] [address] [address] Sarah Sánchez Immunoglobulin M, Qn, Serum 71 mg/dL Normal 15-143 [facility] Comment on above: Performed By: #### U DELFINO, RENAL, MG #### [facility] [address] [place] [address] Dr. Sarah Sánchez [place]/Lambda Ratio, S 1.42 Normal 0.26-1.65 [facility] Comment on above: Performed By: #### U DELFINO, RENAL, MG #### [facility] [address] [place] [address] Dr. Sarah Sánchez M-Jovon Not Observed Normal Not Observed [facility] Comment on above: Performed By: #### U DELFINO, RENAL, MG #### [facility] [address] [place] [address] Dr. Sarah Sánchez PDF . Normal [facility] Comment on above: Performed By: #### U DELFINO, RENAL, MG #### [facility] [address] [place] [address] Dr. Sarah Sánchez Please note: Comment Normal [facility] Comment on above: Result Comment: Prot ein electrophoresis scan will follow via computer, mail, or hall coordinator delivery. Performed By: #### U DELFINO, RENAL, MG #### [facility] [address] [place] [address] Dr. Sarah Sánchez Protein [Mass/Vol] 6.0 g/dL Normal 6.0-8.5 [facility] Comment on above: Performed By: #### U DELFINO, RENAL, MG #### [facility] [address] [place] [address] Dr. Sarah Sánchez PTH INTACTon 12-12-2021 PTH, Intact 67 pg/mL Critically high 15-65 [facility] Comment on above: Performed By: #### P THINT #### [facility] [address] [address] [address] Sarah Sánhcez HEP B SURFACE ANTIGEN SCREEN on 12-10-2021 HBsAg Screen Negative Normal Negative [facility] Comment on above: Performed By: #### H BSANS #### [facility] [address] [address] [address] Sarah Sánchez VIT D 25-OH [facility]on 2021 Vitamin D, 25-Hydroxy 54.1 ng/mL Normal 30.0-100.0 [facility] Comment on above: Result Comment: Rebecca min D deficiency has been defined by the [place] of Medicine and an Endocrine Society practice guideline as a level of serum 25-OH vitamin D less than 20 ng/mL (1,2). The Endocrine Society went on to further define vitamin D insufficiency as a level between 21 and 29 ng/mL (2). 1. IOM ([place] of Medicine). 2010. Dietary reference intakes for calcium and D. [place]: The National Academies Press. 2. Carlos MF, Mary [place], Elian BERRIOS, et al. Evaluation, treatment, and prevention of vitamin D deficiency: an Endocrine Society clinical practice guideline. JCEM. 2010; 96(7):1911-30. Performed By: #### C VDTBH #### [facility] [address] [place] [address] Dr. Sarah Sánchez CBC AUTO DIFFon 12-09-2021 BASO # 0.0 103/ul Normal 0.0-0.1 [facility] Comment on above: Performed By: #### C VDTBH #### [facility] [address] [place] [address] Dr. Sarah Sánchez Basophils/100 WBC (Bld) 0.6 % Normal 0.2-2.0 [facility] Comment on above: Performed By: #### C VDTBH #### [facility] [address] [address] [address] Sarah Sánchez EO # 0.4 103/ul Normal 0.0-0.7 [facility] Comment on above: Performed By: #### C VDTBH #### [facility] [address] [place] [address] Dr. Sarah Sánchez Eosinophils/100 WBC (Bld) 5.5 % Normal 0.9-7.0 [facility] Comment on above: Performed By: #### C VDTBH #### [facility] [address] [place] [address] Dr. Sarah Sánchez Erythrocyte distribution width (RBC) [Ratio] 13.2 % Normal 11.0-15.0 [facility] Comment on above: Performed By: #### C VDTBH #### [facility] [address] [place] [address] Dr. Sarah Sánchez Hematocrit (Bld) [Volume fraction] 27.5 % Critically low 42.0-54.0 [facility] Comment on above: Performed By: #### C VDTBH #### [facility] [address] [place] [address] Dr. Sarah Sánchez Hemoglobin (Bld) [Mass/Vol] 9.4 g/dL Critically low 14.0-18.0 [facility] Comment on above: Performed By: #### C VDTBH #### [facility] [address] [place] [address] Dr. Sarah Sánchez IG # 0.04 10e3/ul Critically high 0.00-0.03 The [facility] Comment on above: Performed By: #### C VDTBH #### [facility] [address] [place] [address] Dr. Sarah Sánchez IG % 0.6 % Critically high 0.0-0.5 The [facility] Comment on above: Performed By: #### C VDTBH #### [facility] [address] [place] [address] Dr. Sarah Sánchez LYMPH # 1.2 103/ul Normal 1.2-3.8 [facility] Comment on above: Performed By: #### C VDTBH #### [facility] [address] [place] [address] Dr. Sarah Sánchez Lymphocytes/100 WBC (Bld) 18.0 % Critically low 20.5-60.0 [facility] Comment on above: Performed By: #### C VDTBH #### [facility] [address] [place] [address] Dr. Sarah Sánchez MANUAL DIFF REQ NO Normal The [facility] Comment on above: Performed By: #### C VDTBH #### [facility] [address] [place] [address] Dr. Sarah Sánchez MCH (RBC) [Entitic mass] 31.0 pg Normal 25.9-34.0 [facility] Comment on above: Performed By: #### C VDTBH #### [facility] [address] [place] [address] Dr. Sarah Sánchez MCHC (RBC) [Mass/Vol] 34.2 g/dL Normal 29.9-35.2 [facility] Comment on above: Performed By: #### C VDTBH #### [facility] [address] [place] [address] Dr. Sarah Sánchez MCV (RBC) [Entitic vol] 90.8 fL Normal 80.0-94.0 [facility] Comment on above: Performed By: #### C VDTBH #### [facility] [address] [place] [address] Dr. Sarah Sánchez MONO # 0.4 103/ul Normal 0.3-0.8 [facility] Comment on above: Performed By: #### C VDTBH #### [facility] [address] [place] [address] Dr. Sarah Sánchez Monocytes/100 WBC (Bld) 5.9 % Normal 1.7-12.0 [facility] Comment on above: Performed By: #### C VDTBH #### [facility] [address] [place] [address] Dr. Sarah Sánchez NEUT # 4.7 103/ul Normal 1.4-6.5 [facility] Comment on above: Performed By: #### C VDTBH #### [facility] [address] [address] [address] Sarah Sánchez Neutrophils/100 WBC (Bld) 69.4 % Normal 43.0-75.0 [facility] Comment on above: Performed By: #### C VDTBH #### [facility] [address] [address] [address] Sarah Sánchez Platelet mean volume (Bld) [Entitic vol] 8.9 fL Critically low 9.5-13.5 [facility] Comment on above: Performed By: #### C VDTBH #### [facility] [address] [address] [address] Sarah Sánchez PLT 191 103/ul Normal 150-450 [facility] Comment on above: Performed By: #### C VDTBH #### [facility] [address] [address] [address] Sarah Sánchez RBC 3.03 106/ul Critically low 4.70-6.10 [facility] Comment on above: Performed By: #### C VDTBH #### [facility] [address] [address] [address] Sarah Sánchez WBC 6.8 103/ul Normal 4.0-11.0 [facility] Comment on above: Performed By: #### C VDTBH #### [facility] [address] [address] [address] Sarah Sánchez FERRITINon 12-09-2021 Ferritin [Mass/Vol] 88.0 ng/mL Normal 26.0-388.0 [facility] Comment on above: Performed By: #### U DELFINO, RENAL, MG #### [facility] [address] [address] [address] Sarah Sánchez IRON AND TIBCon 12-09-2021 % SATURATION 25.0 % Normal [facility] Comment on above: Performed By: #### U DELFINO, RENAL, MG #### [facility] [address] [address] [address] Sarah Sánchez Iron [Mass/Vol] 63.0 ug/dL Critically low 65.0-175.0 [facility] Comment on above: Performed By: #### U DELFINO, RENAL, MG #### [facility] [address] [address] [address] Sarah Sánchez TIBC DIRECT 252.0 ug/dL Normal 250.0-450.0 [facility] Comment on above: Performed By: #### U DELFINO, RENAL, MG #### [facility] [address] [address] [address] Sarah Sánchez MAGNESIUMon 12-09-2021 Magnesium [Mass/Vol] 1.5 mg/dL Critically low 1.8-2.4 [facility] Comment on above: Performed By: #### P THINT #### [facility] [address] [address] [address] Sarah Sánchez RENAL FUNCTION PANELon 12-09 Albumin [Mass/Vol] 3.3 g/dL Critically low 3.4-5.0 [facility] Comment on above: Performed By: #### U DELFINO, MG, RENAL #### [facility] [address] [address] [address] Sarah Sánchez Calcium [Mass/Vol] 8.3 mg/dL Critically low 8.5-10.1 [facility] Comment on above: Performed By: #### U DELFINO, MG, RENAL #### [facility] [address] [address] [address] Sarah Sánchez Chloride [Moles/Vol] 108 mmol/L Critically high 98-107 [facility] Comment on above: Performed By: #### U DELFINO, MG, RENAL #### [facility] [address] [address] [address] Sarah Sánchez CO2 [Moles/Vol] 24.0 mmol/L Normal 21.0-32.0 [facility] Comment on above: Performed By: #### U DELFINO, MG, RENAL #### [facility] [address] [place] [address] Dr. Sarah Sánchez Creatinine [Mass/Vol] 1.92 mg/dL Critically high 0.70-1.30 [facility] Comment on above: Performed By: #### U DELFINO, MG, RENAL #### [facility] [address] [address] [address] Sarah Sánchez EGFR-AF MALDIVIAN 42 mL/min/1.73m2 Critically low >=60 [facility] Comment on above: Performed By: #### U DELFINO, MG, RENAL #### [facility] [address] [address] [address] Sarah Sánchez EGFR-NON AF MALDIVIAN 35 mL/min/1.73m2 Critically low >=60 [facility] Comment on above: Performed By: #### U DELFINO, MG, RENAL #### [facility] [address] [address] [address] Sarah Sánchez Glucose [Mass/Vol] 130 mg/dL Critically high 74-106 [facility] Comment on above: Performed By: #### U DELFINO, MG, RENAL #### [facility] [address] [address] [address] Sarah Sánchez Phosphate [Mass/Vol] 4.0 mg/dL Normal 2.6-4.7 [facility] Comment on above: Performed By: #### U DELFINO, MG, RENAL #### [facility] [address] [address] [address] Sarah Sánchez Potassium [Moles/Vol] 5.0 mmol/L Normal 3.5-5.1 [facility] Comment on above: Performed By: #### U DELFINO, MG, RENAL #### [facility] [address] [address] [address] Sarah Sánchez Sodium [Moles/Vol] 140 mmol/L Normal 136-145 [facility] Comment on above: Performed By: #### U DELFINO, MG, RENAL #### [facility] [address] [address] [address] Sarah Sánchez Urea nitrogen [Mass/Vol] 38.0 mg/dL Critically high 7.0-18.0 [facility] Comment on above: Performed By: #### U DELFINO, MG, RENAL #### [facility] [address] [address] [address] Sarah Sánchez UA RANDOM W/MICROSCOPICon BACTERIA NONE SEEN Normal NONE SEEN [facility] Comment on above: Performed By: #### U DELFINO, RENAL, MG #### [facility] [address] [place] [address] Dr. Sarah Sánchez Bilirubin Ql (U) Negative Normal NEGATIVE [facility] Comment on above: Performed By: #### U DELFINO, RENAL, MG #### [facility] [address] [place] [address] Dr. Sarah Sánchez CAST SEEN Abnormal NONE SEEN [facility] Comment on above: Performed By: #### U DELFINO, RENAL, MG #### [facility] [address] [place] [address] Dr. Sarah Sánchez Clarity (U) CLEAR Normal CLEAR [facility] Comment on above: Performed By: #### U DELFINO, RENAL, MG #### [facility] [address] [place] [address] Dr. Sarah Sánchez Color (U) LT. YELLOW Normal YELLOW [facility] Comment on above: Performed By: #### U DELFINO, RENAL, MG #### [facility] [address] [place] [address] Dr. Sarah Sánchez Crystals LM Nom (Urine sed) NONE SEEN Normal NONE SEEN [facility] Comment on above: Performed By: #### U DELFINO, RENAL, MG #### [facility] [address] [place] [address] Dr. Sarah Sánchez Epithelial cells LM Ql (Urine sed) RARE Normal NONE SEEN /RARE [facility] Comment on above: Performed By: #### U DELFINO, RENAL, MG #### [facility] [address] [place] [address] Dr. Sarah Sánchez Glucose Ql (U) 100 mg/dl Abnormal NEGATIVE [facility] Comment on above: Performed By: #### U DELFINO, RENAL, MG #### [facility] [address] [place] [address] Dr. Sarah Sánchez Hemoglobin Ql (U) SMALL Abnormal NEGATIVE [facility] Comment on above: Performed By: #### U DELFINO, RENAL, MG #### [facility] [address] [place] [address] Dr. Sarah Sánchez HYALINE CAST RARE Normal [facility] Comment on above: Performed By: #### U DELFINO, RENAL, MG #### [facility] [address] [address] [address] Sarah Sánchez Ketones Ql (U) Negative Normal NEGATIVE [facility] Comment on above: Performed By: #### U DELFINO, RENAL, MG #### [facility] [address] [address] [address] Sarah Sánchez LEUKOCYTES Negative Normal NEGATIVE [facility] Comment on above: Performed By: #### U DELFINO, RENAL, MG #### [facility] [address] [address] [address] Sarah Sánchez MUCOUS TRACE Abnormal NONE SEEN [facility] Comment on above: Performed By: #### U DELFINO, RENAL, MG #### [facility] [address] [place] [address] Dr. Sarah Sáncehz Nitrite Ql (U) Negative Normal NEGATIVE [facility] Comment on above: Performed By: #### U DELFINO, RENAL, MG #### [facility] [address] [place] [address] Dr. Sarah Sánchez pH (U) 5.5 [pH] Normal 5-9 [facility] Comment on above: Performed By: #### U DELFINO, RENAL, MG #### [facility] [address] [address] [address] Sarah Sánchez RBC 0-2 Normal 0-2 [facility] Comment on above: Performed By: #### U DELFINO, RENAL, MG #### [facility] [address] [address] [address] Sarah Sánchez SPEC GRAVITY 1.020 Normal 1.005-<=1.02 5 [facility] Comment on above: Performed By: #### U DELIFNO, RENAL, MG #### [facility] [address] [place] [address] Dr. Sarah Sánchez UA PROTEIN 300 mg/dl Abnormal NEGATIVE/ TRACE [facility] Comment on above: Performed By: #### U DELFINO, RENAL, MG #### [facility] [address] [address] [address] Sarah Sánchez Urobilinogen Qn (U) 0.2 {Stevie'U}/dL Normal 0.2 - 1. 0 [facility] Comment on above: Performed By: #### U DELFINO, RENAL, MG #### [facility] [address] [place] [address] Dr. Sarah Sánchez WBC NONE SEEN Normal NONE SEEN [facility] Comment on above: Performed By: #### U DELFINO, RENAL, MG #### [facility] [address] [address] [address] Sarah Sánchez URIC ACID SERUMon 12-09-2021 Urate [Mass/Vol] 6.6 mg/dL Normal 3.5-7.2 [facility] Comment on above: Performed By: #### U DELFINO, MG, RENAL #### [facility] [address] [place] [address] Dr. Sarah Sánchez URINE T PROTEIN CREAT RATIOo n 12-09-2021 Protein (U) [Mass/Vol] 313.7 mg/dL Critically high <=12.0 [facility] Comment on above: Performed By: #### H BSANS #### [facility] [address] [address] [address] Sarah Sánchez UR PROT CREAT RAT 5.47 Normal [facility] Comment on above: Performed By: #### H BSANS #### [facility] [address] [place] [address] Dr. Sarah Sánchez URINE CREAT 57.37 mg/dL Normal 20.00-300.00 [facility] Comment on above: Performed By: #### H BSANS #### [facility] [address] [place] [address] Dr. Sarah Sánchez VIT B12 AND FOLATEon 022 Cobalamin (Vitamin B12) [Mass/Vol] 1831.0 pg/mL Critically high 193.0-986.0 [facility] Comment on above: Performed By: #### U DELFINO, RENAL, MG #### [facility] [address] [place] [address] Dr. Sarah Sánchez FOLATE 20.90 ng/mL Normal 8.60-58.90 [facility] Comment on above: Performed By: #### U DELFINO, RENAL, MG #### [facility] [address] [address] [address] Sarah Sánchez GLYCOHEMOGLOBIN A1Con 2021 ADA RECOMMENDATION SEE BELOW Normal [facility] Comment on above: Result Comment: ADA RECOMMENDED LIMIT 4.0 - 6.0 ADA THERAPEUTIC TARGET < 7.0 ACTION SUGGESTED > 7.0 Performed By: #### U DELFINO, RENAL, MG #### [facility] [address] [address] [address] Sarah Sánchez Glucose [Mass/Vol] 137 mg/dL Normal [facility] Comment on above: Performed By: #### U DELFINO, RENAL, MG #### [facility] [address] [address] [address] Sarah Sánchez HbA1c (Bld) [Mass fraction] 6.4 % Critically high 4.5-6.2 [facility] Comment on above: Performed By: #### U DELFINO, RENAL, MG #### [facility] [address] [address] [address] Sarah Sánchez PTH INTACTon 09-16-2021 PTH, Intact 57 pg/mL Normal 15-65 [facility] Comment on above: Performed By: #### U RTPCR #### [facility] [address] [place] [address] Dr. Sarah Sánchez HEMOGRAM AND PLATELon 2021 Hematocrit (Bld) [Volume fraction] 27.7 % Critically low 42.0-54.0 [facility] Comment on above: Performed By: #### H BSANS #### [facility] [address] [address] [address] Sarah Sánchez Hemoglobin (Bld) [Mass/Vol] 9.5 g/dL Critically low 14.0-18.0 [facility] Comment on above: Performed By: #### H BSANS #### [facility] [address] [address] [address] Sarah Sánchez MCH (RBC) [Entitic mass] 31.1 pg Normal 25.9-34.0 [facility] Comment on above: Performed By: #### H BSANS #### [facility] [address] [place] [address] Dr. Sarah Sánchez MCHC (RBC) [Mass/Vol] 34.3 g/dL Normal 29.9-35.2 [facility] Comment on above: Performed By: #### H BSANS #### [facility] [address] [place] [address] Dr. Sarah Sánchez MCV (RBC) [Entitic vol] 90.8 fL Normal 80.0-94.0 [facility] Comment on above: Performed By: #### H BSANS #### [facility] [address] [place] [address] Dr. Sarah Sánchez PLT 217 103/ul Normal 150-450 [facility] Comment on above: Performed By: #### H BSANS #### [facility] [address] [place] [address] Dr. Sarah Sánchez RBC 3.05 106/ul Critically low 4.70-6.10 [facility] Comment on above: Performed By: #### H BSANS #### [facility] [address] [place] [address] Dr. Sarah Sánchez WBC 6.9 103/ul Normal 4.0-11.0 [facility] Comment on above: Performed By: #### H BSANS #### [facility] [address] [place] [address] Dr. Sarah Sánchez MAGNESIUMon 09-15-2021 Magnesium [Mass/Vol] 1.6 mg/dL Critically low 1.8-2.4 [facility] Comment on above: Performed By: #### U DELFINO, RENAL, MG #### [facility] [address] [place] [address] Dr. Sarah Sánchez RENAL FUNCTION PANELon 09-15 Albumin [Mass/Vol] 3.3 g/dL Critically low 3.4-5.0 [facility] Comment on above: Performed By: #### U DELFINO, RENAL, MG #### [facility] [address] [address] [address] Sarah Sánchez Calcium [Mass/Vol] 8.3 mg/dL Critically low 8.5-10.1 Th e [facility] Comment on above: Performed By: #### U DELFINO, RENAL, MG #### [facility] [address] [address] [address] Sarah Sánchez Chloride [Moles/Vol] 107 mmol/L Normal 98-107 [facility] Comment on above: Performed By: #### U DELFINO, RENAL, MG #### [facility] [address] [place] [address] Dr. Sarah Sánchez CO2 [Moles/Vol] 23.8 mmol/L Normal 21.0-32.0 [facility] Comment on above: Performed By: #### U DELFINO, RENAL, MG #### [facility] [address] [place] [address] Dr. Sarah Sánchez Creatinine [Mass/Vol] 1.87 mg/dL Critically high 0.70-1.30 [facility] Comment on above: Performed By: #### U DELFINO, RENAL, MG #### [facility] [address] [place] [address] Dr. Sarah Sánchez EGFR-AF MALDIVIAN 43 mL/min/1.73m2 Critically low >=60 [facility] Comment on above: Performed By: #### U DELFINO, RENAL, MG #### [facility] [address] [place] [address] Dr. Sarah Sánchez EGFR-NON AF MALDIVIAN 36 mL/min/1.73m2 Critically low >=60 [facility] Comment on above: Performed By: #### U DELFINO, RENAL, MG #### [facility] [address] [place] [address] Dr. Sarah Sánchez Glucose [Mass/Vol] 120 mg/dL Critically high 74-106 [facility] Comment on above: Performed By: #### U DELFINO, RENAL, MG #### [facility] [address] [place] [address] Dr. Sarah Sánchez Phosphate [Mass/Vol] 3.8 mg/dL Normal 2.6-4.7 [facility] Comment on above: Performed By: #### U DELFINO, RENAL, MG #### [facility] [address] [address] [address] Sarah Sánchez Potassium [Moles/Vol] 4.5 mmol/L Normal 3.5-5.1 [facility] Comment on above: Performed By: #### U DELFINO, RENAL, MG #### [facility] [address] [address] [address] Sarah Sánchez Sodium [Moles/Vol] 140 mmol/L Normal 136-145 [facility] Comment on above: Performed By: #### U DELFINO, RENAL, MG #### [facility] [address] [address] [address] Sarah Sánchez Urea nitrogen [Mass/Vol] 34.0 mg/dL Critically high 7.0-18.0 [facility] Comment on above: Performed By: #### U DELFINO, RENAL, MG #### [facility] [address] [place] [address] Dr. Sarah Sánchez UA RANDOM W/MICROSCOPICon BACTERIA NONE SEEN Normal NONE SEEN [facility] Comment on above: Performed By: #### C VDTBH #### [facility] [address] [place] [address] Dr. Sarah Sánchez Bilirubin Ql (U) Negative Normal NEGATIVE [facility] Comment on above: Performed By: #### C VDTBH #### [facility] [address] [place] [address] Dr. Sarah Sánchez CAST SEEN Abnormal NONE SEEN [facility] Comment on above: Performed By: #### C VDTBH #### [facility] [address] [place] [address] Dr. Sarah Sánchez Clarity (U) CLEAR Normal CLEAR [facility] Comment on above: Performed By: #### C VDTBH #### [facility] [address] [place] [address] Dr. Sarah Sánchez COARSE GRANULAR CAST RARE Normal [facility] Comment on above: Performed By: #### C VDTBH #### [facility] [address] [place] [address] Dr. Sarah Sánchez Color (U) LT. YELLOW Normal YELLOW [facility] Comment on above: Performed By: #### C VDTBH #### [facility] [address] [place] [address] Dr. Sarah Sánchez Crystals LM Nom (Urine sed) NONE SEEN Normal NONE SEEN [facility] Comment on above: Performed By: #### C VDTBH #### [facility] [address] [place] [address] Dr. Sarah Sáncehz Epithelial cells LM Ql (Urine sed) FEW Abnormal NONE SEEN /RARE [facility] Comment on above: Performed By: #### C VDTBH #### [facility] [address] [place] [address] Dr. Sarah Sánchez Glucose Ql (U) Negative Normal NEGATIVE [facility] Comment on above: Performed By: #### C VDTBH #### [facility] [address] [place] [address] Dr. Sarah Sánchez Hemoglobin Ql (U) MODERATE Abnormal NEGATIVE [facility] Comment on above: Performed By: #### C VDTBH #### [facility] [address] [place] [address] Dr. Sarah Sánchez Ketones Ql (U) Negative Normal NEGATIVE [facility] Comment on above: Performed By: #### C VDTBH #### [facility] [address] [place] [address] Dr. Sarah Sánchez LEUKOCYTES Negative Normal NEGATIVE [facility] Comment on above: Performed By: #### C VDTBH #### [facility] [address] [place] [address] Dr. Sarah Sánchez MUCOUS NONE SEEN Normal NONE SEEN [facility] Comment on above: Performed By: #### C VDTBH #### [facility] [address] [place] [address] Dr. Sarah Sánchez Nitrite Ql (U) Negative Normal NEGATIVE [facility] Comment on above: Performed By: #### C VDTBH #### [facility] [address] [place] [address] Dr. Sarah Sánchez pH (U) 5.5 [pH] Normal 5-9 [facility] Comment on above: Performed By: #### C VDTBH #### [facility] [address] [place] [address] Dr. Sarah Sánchez RBC 0-2 Normal 0-2 [facility] Comment on above: Performed By: #### C VDTBH #### [facility] [address] [place] [address] Dr. Sarah Sánchez SPEC GRAVITY 1.025 Normal 1.005-<=1.[address] [place] [address] Comment on above: Performed By: #### C VDTBH #### [facility] [address] [place] [address] Dr. Sarah Sánchez UA PROTEIN >300 Abnormal NEGATIVE/ TRACE [facility] Comment on above: Performed By: #### C VDTBH #### [facility] [address] [place] [address] Dr. Sarah Sánchez Urobilinogen Qn (U) 0.2 {Stevie'U}/dL Normal 0.2 - 1. 0 [facility] Comment on above: Performed By: #### C VDTBH #### [facility] [address] [place] [address] Dr. Sarah Sánchez WBC NONE SEEN Normal NONE SEEN [facility] Comment on above: Performed By: #### C VDTBH #### [facility] [address] [place] [address] Dr. Sarah Sánchez URIC ACID SERUMon 09-15-2021 Urate [Mass/Vol] 6.9 mg/dL Normal 3.5-7.2 [facility] Comment on above: Performed By: #### U DELFINO, RENAL, MG #### [facility] [address] [place] [address] Dr. Sarah Sánchez URINE T PROTEIN CREAT RATIOo n 09-15-2021 Protein (U) [Mass/Vol] 440.3 mg/dL Critically high <=12.0 [facility] Comment on above: Performed By: #### U RTPCR #### [facility] [address] [place] [address] Dr. Sarah Sánchez UR PROT CREAT RAT 6.63 Normal [facility] Comment on above: Performed By: #### U RTPCR #### [facility] [address] [id number] [address] Sarah Sánchez URINE CREAT 66.40 mg/dL Normal 20.00-300.00 [facility] Comment on above: Performed By: #### U RTPCR #### [facility] [address] [address] Sarah Sánchez VITAMIN D 25 OHon 09-15-2021 VIT D 25-OH 18.8 ng/mL Normal [facility] Comment on above: Performed By: #### U DELFINO, RENAL, MG #### [facility] [address] [place] [address] Dr. Sarah Sánchez VIT D RANGES SEE BELOW Normal [facility] Comment on above: Result Comment: <20 ng/mL Vit D deficient 20 - <30 ng/mL Vit D insufficient 30 - 100 ng/mL Vit D sufficient >100 ng/mL Potential Toxicity Performed By: #### U DELFINO, RENAL, MG #### [facility] [address] [address] [address] Sarah Sánchez US KIDNEYSon 09-01-2021 US KIDNEYS EXAMINATION: US KIDNEYS HISTORY: CKD stage 3B ; chronic kidney disease due to hypertension COMPARISON: CT abdomen pelvis 05/30/2016 TECHNIQUE: Ultrasound examination was performed of the kidneys and urinary bladder. FINDINGS: RIGHT KIDNEY: No evidence of pelvocaliectasis, mass, or calculi. Normal renal cortical parenchymal echogenicity. Color Doppler demonstrates blood flow within the kidney. Kidney: 11.60 5.6 x 6.1 cm LEFT KIDNEY: Stable small benign-appearing cyst versus dilated calyx within superior pole, 10 x 9 x 5 mm No mass, hydronephrosis, or calculi. Normal renal cortical parenchymal echogenicity. Color Doppler demonstrates blood flow within the kidney. Kidney: 11.7 x 6.0 x 5.7 cm BLADDER: No visible wall thickening, mass, or calculi. IMPRESSION: 1. No urinary tract calculi, mass, obstructive uropathy. 2. No significant atrophy or cortical thinning. Electronically authenticated by: MEMO STRICKLAND Date: 2021-09-01 10:18 Normal [facility] Urinalysis With MicroscopicO rdered By: Ralph Mccurdy on 04-23-2019 - [employer] Work Phone: Amorphous, UA NOT REPORTED None [facility] Work Phone: Bacteria, UA NOT REPORTED None [facility] Work Phone: Bilirubin Urine Negative NEGATIVE [facility] Work Phone: Casts UA NOT REPORTED /LPF [employer] Work Phone: Color, UA YELLOW YELLOW [employer] Work Phone: Crystals UA URIC ACID Abnormal None /HPF [employer] Work Phone: Crystals UA 2 TO 5 Abnormal None /HPF [email or web address] Work Phone: Epithelial Cells UA None [email or web address] Work Phone: Glucose, Ur Negative NEGATIVE [employer] Work Phone: Interpretation and review of laboratory results Abnormal [employer] Work Phone: Ketones Ql (U) Negative NEGATIVE [facility] Work Phone: Leukocyte esterase Test strip Ql (U) Negative NEGATIVE [email or web address] Work Phone: Mucus, UA NOT REPORTED None [email or web address] Work Phone: Nitrite, Urine Negative NEGATIVE [facility] Work Phone: Other Observations UA NOT REPORTED NOT REQ. [email or web address] Work Phone: pH, UA 6.0 [email or web address] Work Phone: Protein, UA 4+ Abnormal NEGATIVE [email or web address] Work Phone: RBC, UA 0 TO 2 [email or web address] Work Phone: Renal Epithelial, Urine NOT REPORTED 0 /HPF [email or web address] Work Phone: Specific [place], UA 1.020 [employer] Work Phone: Trichomonas, UA NOT REPORTED None [facility] Work Phone: Turbidity UA CLEAR CLEAR [employer] Work Phone: Urinalysis Comments NOT REPORTED Lanie Peela Work Phone: Urine Hgb 1+ Abnormal NEGATIVE [employer] Work Phone: Urobilinogen, Urine Normal Normal [employer] Work Phone: WBC, UA None [employer] Work Phone: Yeast, UA NOT REPORTED None [employer] Work Phone: Cardiovascular Lab Reporton 09-12-2018 Cardiovascular Lab Report [facility] Patient Name: [facility]ito [facility] MR #: [id number] Physician: Vadim Malagon of [facility] Medicine Service Date: 09/12/2018 Division of Birthdate: 1950 Cardiology Room #: [facility] [address] [address] Cardiovascular Laboratory Report INDICATIONS: The patient is a 68-year-old man, known to have coronary artery disease, status post stenting of the ramus vessel in January 2018 in the setting of [id number] myocardial infarction. At that time, he had moderate disease in the right coronary artery and LAD and severe stenosis at the ostium to proximal segment of a moderate-sized diagonal branch. He did well after that intervention and he was free of symptoms for about 4-5 months. He presented yesterday to clinic, complaining of severe symptoms of shortness of breath on mild exertion and he mentioned that these are similar symptoms to what he had prior to his myocardial infarction and stenting procedure. Because of that, he was referred today for cardiac catheterization. PROCEDURES: 1. Access into the left internal jugular vein under ultrasound guidance. 2. Right heart catheterization. 3. Bilateral selective coronary angiography from the right radial access. METHODS: Procedure was explained to the patient with risks and benefits. He signed informed consent. 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 The left neck area was prepped and draped in usual fashion. Note that we went for the left internal jugular vein access, as he had multiple procedures in the right carotid in the past and due to the patient's preference. The left internal jugular vein was accessed using micropuncture technique under ultrasound guidance and a 6-Stateless x 11 cm sheath was placed. A 6-Stateless Olivia catheter was used for right heart catheterization with measurement of pressures and calculation of cardiac output using the estimated Rose Marie method. Olivia catheter was removed. Steve test was favorable on the right. Access in the right radial artery was obtained using micropuncture technique and ultrasound guidance. A 6-Stateless x 11 cm Hydrophilic sheath was advanced. Verapamil was given through the sheath and heparin was administered intravenously. Bilateral selective coronary angiography was then performed using 6-Stateless JR5 and JL3.5 diagnostic catheters. Catheters were removed. Procedure was concluded. The radial sheath was removed and a TR band applied for hemostasis. The access sheath in the internal jugular vein were removed and manual compression applied for hemostasis. He tolerated the procedure well. He will be observed for 3-4 hours and then discharged to home. TOTAL FLUORO TIME: 9.12 minutes. TOTAL AIR KARMA: 685 mGy. TOTAL CONTRAST VOLUME: 40 mL. HEMODYNAMICS: RA 12. RV 35/11, 14. PA 37/16. Mean 27. Pulmonary capillary wedge pressure 19. AO 140/60. Mean 90. Cardiac output 5.0. Cardiac index 2.45. PA sat 65%. AO sat 95%. CORONARY ANGIOGRAPHY: This is a right dominant circulation. Left main arises from left coronary cusp. It trifurcates into left anterior descending, ramus, and circumflex vessels. Left main is free of disease. Left anterior descending. This is a large vessel, it has a 40% tubular narrowing right after the takeoff of a hmmfv-ka-nwpzcrne size first diagonal branch, that diagonal branch has a 70% ostial to proximal stenosis. The rest of the LAD is free of disease. Ramus vessel. This is a large bifurcating vessel. It has a previously placed stent in the proximal segment. The stent is widely patent. The rest of the ramus is free of disease. Circumflex vessel. This is a moderate-sized vessel that is nondominant. It is free of significant disease. Right coronary artery. This arises from the right coronary cusp. It is a large and dominant vessel. It has a 40% proximal stenosis. The rest of the right coronary artery has minimal luminal irregularities. SUMMARY OF FINDINGS: 1. Coronary artery disease with patent previously placed ramus vessel stent, 40% mid LAD, 40% proximal RCA stenosis, and 70% stenosis of the ostial to proximal segment of a klmrm-va-ncjckbij size diagonal branch. 2. The angiographic appearance is similar to that of angiography done in January of 2018. 3. Mildly elevated filling pressures. 4. Mild pulmonary hypertension. 5. Preserved cardiac output and cardiac index. RECOMMENDATIONS: 1. Continue current medical therapy. 2. The current findings do not explain significant shortness of breath on mild exertion. 3. The patient will be referred to Pulmonary for further investigation. 4. Follow up in Cardiology Clinic. Electronically Signed by: Vadim Veronica M.D. 09/27/2018 10:27 A Vadim Veronica M.D. Date Dict: 09/12/2018/09:38 Larisa/Vadim Veronica M.D. Date Trans: 09/12/2018 10:28 Larisa/harvey [id number] cc: Ruben Luo M.D. [address] [place] [id number] Normal [facility] BASIC METABOLIC PANELon 10- Calcium [Mass/Vol] 8.4 mg/dL Low 8.6-10.3 [facility] Comment on above: Order Comment: No: D o not add to previous draw Performed By: #### 0 0071, [id number], [id number] #### [facility] [address] [place] [address], [place] Chloride [Moles/Vol] 106 mmol/L Normal 98-107 [facility] Comment on above: Order Comment: No: D o not add to previous draw Performed By: #### 0 0071, [id number], 69754 #### [facility] [address] [place] [address], [place] CO2 [Moles/Vol] 26 mmol/L Normal 21-31 [facility] Comment on above: Order Comment: No: D o not add to previous draw Performed By: #### 0 0071, [id number], [id number] #### [facility] [address] [place] [address], [place] Creatinine [Mass/Vol] 1.25 mg/dL Normal 0.70-1.30 [facility] Comment on above: Order Comment: No: D o not add to previous draw Performed By: #### 0 0071, [id number], [id number] #### [facility] [address] [place] [address], [place] GFR/1.73 sq M predicted among blacks MDRD (S/P/Bld) [Vol rate/Area] mL/min/{1.73_m2} Normal >60 [facility] Comment on above: Order Comment: No: D o not add to previous draw Performed By: #### 0 0071, , [id number] #### [facility] [address] [place] [address], [place] GFR/1.73 sq M predicted among non-blacks MDRD (S/P/Bld) [Vol rate/Area] 57 ml/min/1.73sq m Abnormal >60 [facility] Comment on above: Order Comment: No: D o not add to previous draw Performed By: #### 0 0071, 17846, [id number] #### [facility] [address] [place] [address], [place] Glucose [Mass/Vol] 183 mg/dL High 70-100 [facility] Comment on above: Order Comment: No: D o not add to previous draw Performed By: #### 0 0071, 12919, 31289 #### [facility] [address] [place] [address], [place] Potassium [Moles/Vol] 5.4 mmol/L High 3.5-5.1 [facility] Comment on above: Order Comment: No: D o not add to previous draw Performed By: #### 0 0071, 33774, 55773 #### [facility] [address] [place] [address], [place] Sodium [Moles/Vol] 135 mmol/L Low 136-145 [facility] Comment on above: Order Comment: No: D o not add to previous draw Performed By: #### 0 0071, 32038, 30784 #### [facility] [address] [place] [address], [place] Urea nitrogen [Mass/Vol] 26 mg/dL High 7-25 [facility] Comment on above: Order Comment: No: D o not add to previous draw Performed By: #### 0 0071, 72134, 01823 #### [facility] [address] [place] [id number], [place] CBC COMPLETE BLOOD COUNTon Erythrocyte distribution width (RBC) [Ratio] 13.2 % Normal 11.5-15.0 [facility] Comment on above: Order Comment: No: D o not add to previous draw Performed By: #### 5 [id number] #### [facility] [address] [place] [id number], [place] Hematocrit (Bld) [Volume fraction] 31.0 % Low 39.0-50.0 [facility] Comment on above: Order Comment: No: D o not add to previous draw Performed By: #### 5 [id number] #### [facility] [address] [place] [address], [place] Hemoglobin (Bld) [Mass/Vol] 10.6 g/dL Low 13.0-17.0 [facility] Comment on above: Order Comment: No: D o not add to previous draw Performed By: #### 5 [id number] #### [facility] [address] [place], [place] [id number] [place] [address] MCH (RBC) [Entitic mass] 30.5 pg Normal 27.0-33.0 [facility] Comment on above: Order Comment: No: D o not add to previous draw Performed By: #### 5 0608 #### [facility] [address] [place] [address], [place] MCHC (RBC) [Mass/Vol] 34.2 g/dL Normal 32.0-35.0 [facility] Comment on above: Order Comment: No: D o not add to previous draw Performed By: #### 5 0608 #### [facility] [address] [place] [address], [place] MCV (RBC) [Entitic vol] 89.3 fL Normal 82.0-98.0 [facility] Comment on above: Order Comment: No: D o not add to previous draw Performed By: #### 5 0608 #### [facility] [address] [place] [address], [place] Nucleated RBC/100 WBC (Bld) [Ratio] 0 % Normal 0-0 [facility] Comment on above: Order Comment: No: D o not add to previous draw Performed By: #### 5 0608 #### [facility] [address] [place] [id number], [place] PLAT CNT 174 10*3/uL Normal 150-400 [facility] Comment on above: Order Comment: No: D o not add to previous draw Performed By: #### 5 0608 #### [facility] [address] [place] [id number], [place] RBC (Bld) [#/Vol] 3.47 10*6/uL Low 4.20-5.70 [facility] Comment on above: Order Comment: No: D o not add to previous draw Performed By: #### 5 0608 #### [facility] [address] [place] [id number], [place] WBC (Bld) [#/Vol] 8.57 10*3/uL Normal 4.00-10.60 The [facility] Comment on above: Order Comment: No: D o not add to previous draw Performed By: #### 5 0608 #### [facility] [address] Cardiovascular Lab Reporton 01-18-2018 Cardiovascular Lab Report [facility] Patient Name: Omer Santos [facility] MR #: [id number] Physician: Vadim Malagon of [facility] Medicine Service Date: 01/17/2018 Division of Birthdate: 1950 Cardiology Room #: 3CD [id number] Adult Cardiovascular Services [facility] [address] [place] [address] Cardiovascular Laboratory Report INDICATION: Omer Santos is a 67-year-old man, who was admitted with yfu-AE-nynygsf elevation myocardial infarction. He was referred for cardiac catheterization. He has prior history of carotid stenting. PROCEDURE: 1. Bilateral selective coronary angiography from the left radial access. 2. Successful balloon dilatation and drug-eluting stenting of 95% stenosis in the proximal ramus vessel, reduced to 0% by deployment of a Synergy 2.75 x 16 mm drug-eluting stent post dilated to 2.75 mm at high pressures. 3. Administration of intracoronary nitroglycerin. METHOD: Procedure was explained to the patient with risks and benefits. He signed informed consent. 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 The left wrist area was prepped and draped in usual fashion. Steve's test was favorable. Access was obtained in the left radial artery. Using micropuncture technique, a 6-Stateless x 11 cm Hydrophilic sheath was advanced. Verapamil was given through the sheath and heparin was administered intravenously. Bilateral selective coronary angiography was then performed using 6-Stateless JL3.5 and JR4 diagnostic catheters. Catheters were removed. A 6-Stateless XB 3.0 guiding catheter was advanced and used to engage in the left main coronary ostium. Therapeutic ACT was confirmed during the procedure and additional heparin given as needed. A [place] wire was advanced into the distal ramus vessel. Balloon angioplasty in the proximal ramus was performed using Emerge 2.5 x 12 mm balloon inflated at 12 atmospheres. Angiography revealed suboptimal results. This was treated using a Synergy 2.75 x 16 mm drug-eluting stent deployed at 11 atmospheres and post dilated using NC Quantum [place] 2.75 x 12 mm noncompliant balloon inflated at 16 atmospheres throughout the length of the stent. Angiography after administration of intracoronary nitroglycerin showed excellent result with reduction of the stenosis to 0%. No evidence of dissection or perforation. The guiding catheter was removed. The procedure was concluded. The patient was loaded with 600 mg of Plavix at the end of the procedure. The radial access sheath was removed and a compression dressing applied for hemostasis. He was transferred back to his room. TOTAL FLUORO TIME: 16.15 minutes. TOTAL AIR KERMA: 1939 mGy. TOTAL CONTRAST VOLUME: 160 mL. HEMODYNAMICS: AO 126/60, mean 87. CORONARY ANGIOGRAPHY: This is a right dominant circulation. Left main. This arises from left coronary cusp. It trifurcates into left anterior descending, ramus and circumflex vessels. The left main is free of disease. Left anterior descending. This has a 50% tubular narrowing in the mid segment right after the takeoff a moderate size diagonal branch. The diagonal branch has 70% ostial to proximal stenosis. Ramus vessel. This is a very large vessel that gives multiple branches throughout its course. Its proximal segment had a 95% hazy thrombotic stenosis, this was reduced to 0% by balloon angioplasty and Synergy drug-eluting stent. The rest of the ramus vessel is free of disease. Circumflex vessel. This is nondominant and is free of significant disease. Right coronary artery. This arises from the right coronary cusp. It is a large and dominant vessel. It has a 40% proximal stenosis, but otherwise is free of obstructive lesions. SUMMARY OF FINDINGS: 1. Severe 2-vessel coronary artery disease. 2. A 95% thrombotic stenosis in the proximal ramus vessel, reduced to 0% by a Synergy drug-eluting stent. 3. A 50% tubular stenosis in the mid LAD and 70% stenosis at the ostium and proximal segment of a moderate-sized diagonal vessel. 4. Nondominant circumflex, free of disease. 5. A 40% stenosis in the proximal dominant right coronary artery. RECOMMENDATIONS: 1. Aspirin and statin therapy for life. 2. Plavix therapy for minimum of 1 year after acute qfy-TP-sffzhox elevation myocardial infarction and drug-eluting stenting. 3. Follow up in Cardiology Clinic. The diagonal branch can be treated medically given its moderate caliber. If the patient is asymptomatic, then medical therapy is very reasonable. Should he develop symptoms, then he can be considered for intervention to the diagonal branch. Electronically Signed by: Vadim Veronica M.D. 01/18/2018 11:26 P Vadim Veronica M.D. Date Dict: 01/17/2018/12:03 P/Vadim Veronica M.D. Date Trans: 01/17/2018 10:32 P/mmo [id number] cc: Ruben Luo M.D. [address] [facility] [id number] Otilia Sanchez M.D. [facility] Not Send [address] [facility] [address] Normal [facility] MAGNESIUM BLOODon 01-18-2018 Magnesium [Mass/Vol] 1.9 mg/dL Normal 1.9-2.7 [facility] Comment on above: Performed By: #### 0 0071, 19107, 86089 #### [facility] [address] [place] [address], [place] TROPONIN-Ion 01-18-2018 Troponin I.cardiac [Mass/Vol] 0.84 ng/mL Critically high 0.00-0.04 [facility] Comment on above: Result Comment: M-CR ITICAL RESULT(S) REVIEWED, CALLED TO AND READ BACK BY AMARA PATTERSON RN AT 0940. REFERENCE RANGES: 0.00 - 0.04 ng/ml NORMAL 0.05 - 0.50 ng/ml INDETERMINATE > 0.50 ng/ml CONSISTENT WITH AN M.I. Performed By: #### 0 0071, 20292, 39848 #### [facility] [address] [place] [address], [place] BASIC METABOLIC PANELon 01-06 Calcium [Mass/Vol] 8.8 mg/dL Normal 8.6-10.3 [facility] Comment on above: Order Comment: No: D o not add to previous draw Performed By: #### 3 5199, 89081 #### [facility] [address] [place] [address], [place] Chloride [Moles/Vol] 103 mmol/L Normal 98-107 [facility] Comment on above: Order Comment: No: D o not add to previous draw Performed By: #### 3 5199, 39997 #### [facility] [address] [place] [address], [place] CO2 [Moles/Vol] 25 mmol/L Normal 21-31 The [facility] Comment on above: Order Comment: No: D o not add to previous draw Performed By: #### 3 5199, 56236 #### [facility] [address] [place] [address], [place] Creatinine [Mass/Vol] 1.36 mg/dL High 0.70-1.30 [facility] Comment on above: Order Comment: No: D o not add to previous draw Performed By: #### 3 5199, 28484 #### [facility] [address] [place] [address], [place] GFR/1.73 sq M predicted among blacks MDRD (S/P/Bld) [Vol rate/Area] mL/min/{1.73_m2} Normal >60 [facility] Comment on above: Order Comment: No: D o not add to previous draw Performed By: #### 3 5199, 37389 #### [facility] [address] [place] [address], [place] GFR/1.73 sq M predicted among non-blacks MDRD (S/P/Bld) [Vol rate/Area] 52 ml/min/1.73sq m Abnormal >60 [facility] Comment on above: Order Comment: No: D o not add to previous draw Performed By: #### 3 5199, 08058 #### [facility] [address] [place] [address], [place] Glucose [Mass/Vol] 265 mg/dL High 70-100 [facility] Comment on above: Order Comment: No: D o not add to previous draw Performed By: #### 3 5199, 92000 #### [facility] [address] [place] [address], [place] Potassium [Moles/Vol] 4.7 mmol/L Normal 3.5-5.1 [facility] Comment on above: Order Comment: No: D o not add to previous draw Performed By: #### 3 5199, 64506 #### [facility] [address] [place] [address], [place] Sodium [Moles/Vol] 136 mmol/L Normal 136-145 [facility] Comment on above: Order Comment: No: D o not add to previous draw Performed By: #### 3 5199, 04498 #### [facility] [address] [place] [address], [place] Urea nitrogen [Mass/Vol] 25 mg/dL Normal 7-25 [facility] Comment on above: Order Comment: No: D o not add to previous draw Performed By: #### 3 5199, 34092 #### [facility] [address] [place] [address], [place] CBC W/DIFFon 01-17-2018 ABS BASOPHILS 0.1 10*3/uL Normal 0.0-0.2 [facility] Comment on above: Performed By: #### 5 0103 #### [facility] [address] [place] [address], [place] ABS IMM GRANS 0.1 10*3/uL Normal 0.0-0.2 [facility] Comment on above: Performed By: #### 5 0103 #### [facility] [address] [place] [address], [place] ABS NEUTROPHILS 4.1 10*3/uL Normal 1.6-7.6 [facility] Comment on above: Performed By: #### 5 3 #### [facility] [address] [place] [address], [place] Basophils/100 WBC (Bld) 0.7 % Normal 0.0-1.0 [facility] Comment on above: Performed By: #### 5 3 #### [facility] [address] [place] [address], [place] Eosinophils (Bld) [#/Vol] 0.5 10*3/uL Normal 0.0-0.5 [facility] Comment on above: Performed By: #### 102 #### [facility] [address] [place] [address], [place] Eosinophils/100 WBC (Bld) 6.6 % High 0.0-6.0 [facility] Comment on above: Performed By: #### 5 102 #### [facility] [address] [facility] Erythrocyte distribution width (RBC) [Ratio] 13.1 % Normal 11.5-15.0 [facility] Comment on above: Performed By: #### 3 #### [facility] [address] [place] [address], [place] Hematocrit (Bld) [Volume fraction] 30.5 % Low 39.0-50.0 [facility] Comment on above: Performed By: #### 5 3 #### [facility] [address] [place] [place] [address], [place] Hemoglobin (Bld) [Mass/Vol] 10.8 g/dL Low 13.0-17.0 [facility] Comment on above: Performed By: #### 5 3 #### [facility] [address] [place] [address], [place] IMMATURE GRANS 1.8 % High 0.0-1.0 The [place] [facility] Comment on above: Performed By: #### 5 0103 #### [facility] [address] [place] [address], [place] Lymphocytes (Bld) [#/Vol] 2.1 10*3/uL Normal 1.2-4.0 [facility] Comment on above: Performed By: #### 5 0103 #### [facility] [address] [place] [address], [place] Lymphocytes/100 WBC (Bld) 28.1 % Normal 20.0-45.0 [facility] Comment on above: Performed By: #### 5 0103 #### [facility] [address] [place] [place] [address], [place] MCH (RBC) [Entitic mass] 31.3 pg Normal 27.0-33.0 [facility] Comment on above: Performed By: #### 5 0103 #### [facility] [address] [place] [address], [place] MCHC (RBC) [Mass/Vol] 35.4 g/dL High 32.0-35.0 [facility] Comment on above: Performed By: #### 5 0103 #### [facility] [address] [place] [address], [place] MCV (RBC) [Entitic vol] 88.4 fL Normal 82.0-98.0 [facility] Comment on above: Performed By: #### 5 0103 #### [facility] [address] [place] [address], [place] Monocytes (Bld) [#/Vol] 0.5 10*3/uL Normal 0.1-1.0 [facility] Comment on above: Performed By: #### 5 0103 #### [facility] [address] [place] [address], [place] MONOS 6.3 % Normal 5.0-12.0 [facility] Comment on above: Performed By: #### 5 0103 #### [facility] [address] [place] [address], [place] Neutrophils/100 WBC (Bld) 56.5 % Normal 40.0-72.0 [facility] Comment on above: Performed By: #### 5 0103 #### [facility] [address] [place] [address], [place] Nucleated RBC/100 WBC (Bld) [Ratio] 0 % Normal 0-0 [facility] Comment on above: Performed By: #### 5 0103 #### [facility] [address] [place] [address], [place] PLAT CNT 175 10*3/uL Normal 150-400 [facility] Comment on above: Performed By: #### 5 0103 #### [facility] [address] [place] [address], [place] RBC (Bld) [#/Vol] 3.45 10*6/uL Low 4.20-5.70 [facility] Comment on above: Performed By: #### 5 0103 #### [facility] [address] [place] [address], [place] WBC (Bld) [#/Vol] 7.30 10*3/uL Normal 4.00-10.60 [facility] Comment on above: Performed By: #### 5 0103 #### [facility] [address] History and Physicalon 01-17 History and Physical MR#: [id number] [facility] Pt. Name: Omer Santos Admitted: 01/17/2018 Date of : 1950 Attending Physician: Andre Vizcaino MD Room #: 3CD [id number] Discharge Date: HISTORY AND PHYSICAL CHIEF COMPLAINT: Chest pain. HISTORY OF PRESENT ILLNESS: The patient is a 67-year-old male, who presented initially to [facility] complaining of chest pain. He states that he began to experience chest pain yesterday evening around 5 p.m. after he woke up from a nap. It was described as starting in the left side of his neck and jaw area, radiating down to the left side of his chest and then also to the center of his chest. It is described as being sharp, initially was 10/10. It is exacerbated when he started trying to walk up few stairs and it persisted for about an hour and subsequently resolved. It had re-appeared again after he went out for dinner, and he was unable to walk to the car from the restaurant due to pain. He also had associated shortness of breath, was feeling nauseated. No vomiting. He was not diaphoretic at that time. His initial workup was negative at [place], did a repeat troponin, which was elevated. He was started on a heparin drip and transferred here to [facility] for high-level care to be seen by Cardiology for possible NSTEMI. Presently he states he is chest pain free. He received some morphine in [place], to which he attributes his current pain-free status. PAST MEDICAL HISTORY: Noninsulin dependent type 2 diabetes mellitus, hypertension, carotid artery stenosis, rosacea, asthma. PAST SURGICAL HISTORY: Back surgery, right carotid endarterectomy. HOME MEDICATIONS: 1. Albuterol inhalation every 4 hours p.r.n. 2. Albuterol sulfate inhaler 4 times per day p.r.n. 3. Amlodipine 10 mg p.o. daily. 4. Aspirin 81 mg p.o. daily. 5. Doxycycline 100 mg p.o. b.i.d. p.r.n. for rosacea. 6. Ferrous gluconate 30 mg p.o. q.a.m. 7. Glipizide 10 mg p.o. b.i.d. 8. Losartan 100 mg p.o. q.a.m. 9. Meloxicam 15 mg p.o. daily p.r.n. 10. Metformin 1000 mg p.o. b.i.d. 11. Metoprolol tartrate 50 mg p.o. b.i.d. ALLERGIES: No known drug allergies. SOCIAL HISTORY: The patient is a former smoker, quit 20 years ago. Smoked 1 pack per day for 10 years total. Rarely drinks any alcohol. Denies any recreational drug use. Lives with his . FAMILY HISTORY: Parents are both . Dad had CAD, CABG. Mom from complications of hyponatremia. REVIEW OF SYSTEMS: 14-point review of system was performed. All pertinent positives and negatives are as mentioned in HPI. Remainder of systems otherwise negative. PHYSICAL EXAMINATION: GENERAL APPEARANCE: The patient is an elderly male, presently lying comfortably in bed. Awake, alert, in no acute distress. VITAL SIGNS: Temperature 98.4, heart rate 70, respiratory rate 17, blood pressure 146/68, saturating 97% on room air. EYES: Pupils are equal, round, reactive to light and accommodation. Extraocular movements are intact. No conjunctival pallor. ENMT: External appearance of ears unremarkable. Hearing is normal. Mucous membranes are moist. No abnormalities in oropharynx. NECK: Supple. No cervical adenopathy. No JVD. RESPIRATORY: Lungs are clear to auscultation. Normal respiratory effort. CARDIOVASCULAR: Normal heart sounds. Regular rate and rhythm. No murmurs. Peripheral pulses palpable and symmetric. ABDOMEN: Soft, nontender, nondistended. Bowel sounds normal. EXTREMITIES: No edema of bilateral extremities. No varicosities. SKIN: No rashes or lesions. Skin is warm and dry. PSYCHIATRIC: The patient's recent memory intact. He is alert and oriented x3. LABORATORY STUDIES: From [facility] dated January 16, 2018. BNP 311. CBC: WBC 8.7, hemoglobin 12.1, hematocrit 33.0, platelet count 199, MCV 86.4. Troponin initial 0.031, followup 0.103. Last troponin was drawn at 2335 on January 16, 2018. CMP: Sodium 136, potassium 4.5, chloride 100, bicarb 26, BUN 27.0, creatinine 1.46, calcium 9.1, glucose 295, ALT 35, AST 20, alkaline phosphatase 117, total protein 7.6, albumin 3.9, total bilirubin 0.4. EKG: Normal sinus rhythm, ventricular rate of 72. No significant ST- or T-wave abnormalities noted. ASSESSMENT: 1. Chest pain. 2. Elevated troponin. 3. Hypertension. 4. Type 2 diabetes mellitus. 5. Normocytic anemia. 6. Asthma. PLAN: The patient will be admitted to Medicine Service step-down for further care. We will monitor him on telemetry. Serial cardiac enzymes have been ordered. We will continue to trend his troponins and continue him on heparin drip for now. We will consult Cardiology for further evaluation. Keep him n.p.o., start him on gentle IV fluid hydration. His home medications have been reviewed and reconciled. He is full code. Electronically Signed by: Andre Vizcaino MD 01/17/2018 08:49 P Andre Vizcaino MD Date Dict: 01/17/2018/06:26 A/Andre Vizcaino MD Date Trans: 01/17/2018 07:04 A/harvey [id number] Normal [facility] TROPONIN-Ion 01-17-2018 Troponin I.cardiac [Mass/Vol] 0.22 ng/mL High 0.00-0.04 [facility] Comment on above: Order Comment: No: D o not add to previous draw Result Comment: REFE RENCE RANGES: 0.00 - 0.04 ng/ml NORMAL 0.05 - 0.50 ng/ml INDETERMINATE > 0.50 ng/ml CONSISTENT WITH AN M.I. Performed By: #### 3 5030, 93296 #### [facility] [address] [place] [address], [place] UFH HEPARIN ASSAYon 01-18-20 18 UNFRACTIONATED HEPARIN <0.10 Critically low 0.30-0.70 [facility] Comment on above: Result Comment: Clarissa roxaban and Apixaban will interfere with the anti Xa assay used to monitor UFH and LMWH. RESULTS CHECKED AND CALLED. ACCURATELY READ BACK BY AMARA PATTERSON RN @ 6105 Performed By: #### 3 0477 #### [facility] [address] [place] [address], [place] Vital Signs Date Time Vital Sign Value Performing Clinician Facility 03-26-2023 09:00-0500 Body height 167.64 cm Oma Donato Other [facility] Other 03-26-2023 09:00-0500 Body mass index (BMI) [Ratio] 27.5 kg/m2 Oma Donato Other [facility] Other 03-26-2023 09:00-0500 Body temperature 96.6 [degF] Oma Donato Other [facility] Other 03-26-2023 09:00-0500 Body weight 77.29 kg Oma Donato Other [facility] Other 03-26-2023 09:00-0500 Respiratory rate 16 /min Oma Donato Other [facility] Other 03-26-2023 09:00-0500 SaO2% (BldA) [Mass fraction] 98 % Oma Donato Other [facility] Other 03-20-2023 10:30-0500 Body height 167.64 cm Ney Roman Other [facility] Other 03-20-2023 10:30-0500 Body mass index (BMI) [Ratio] 25.82 kg/m2 Ney Roman Other [facility] Other 03-20-2023 10:30-0500 Body temperature 97.8 [degF] Ney Roman Other [facility] Other 03-20-2023 10:30-0500 Body weight 72.58 kg Ney Roman Other [facility] Other 03-20-2023 10:30-0500 Diastolic blood pressure 64 mm[Hg] Ney Liaocassidy Other [facility] Other 03-20-2023 10:30-0500 SaO2% (BldA) [Mass fraction] 98 % Ney Langcassidy Other [facility] Other 03-20-2023 10:30-0500 Systolic blood pressure 114 mm[Hg] Ney Liaocassidy Other [facility] Other 02-25-2023 13:40-0500 Body height 167.64 cm Oma Donato Other [facility] Other 02-25-2023 13:40-0500 Body mass index (BMI) [Ratio] 26.44 kg/m2 Oma Donato Other [facility] Other 02-25-2023 13:40-0500 Body temperature 97.2 [degF] Oma Doanto Other [facility] Other 02-25-2023 13:40-0500 Body weight 74.3 kg Oma Donato Other [facility] Other 02-25-2023 13:40-0500 Diastolic blood pressure 64 mm[Hg] Oma Donato Other [facility] Other 02-25-2023 13:40-0500 Respiratory rate 18 /min Oma Donato Other [facility] Other 02-25-2023 13:40-0500 SaO2% (BldA) [Mass fraction] 99 % Oma Donato Other [facility] Other 02-25-2023 13:40-0500 Systolic blood pressure 124 mm[Hg] Oma Donato Other [facility] Other 01-29-2023 14:00-0400 Body height 167.64 cm Oma Donato Other [facility] Other 01-29-2023 14:00-0400 Body mass index (BMI) [Ratio] 27.4 kg/m2 Oma Donato Other [facility] Other 01-29-2023 14:00-0400 Body temperature 96.4 [degF] Oma Donato Other [facility] Other 01-29-2023 14:00-0400 Body weight 77.02 kg Oma Donato Other [facility] Other 01-29-2023 14:00-0400 Diastolic blood pressure 61 mm[Hg] Oma Donato Other [facility] Other 01-29-2023 14:00-0400 Respiratory rate 18 /min Oma Donato Other [facility] Other 01-29-2023 14:00-0400 SaO2% (BldA) [Mass fraction] 99 % Oma Donato Other [facility] Other 01-29-2023 14:00-0400 Systolic blood pressure 166 mm[Hg] Oma Donato Other [facility] Other 01-17-2023 12:20-0400 Body height 167.64 cm Oma Donato Other [facility] Other 01-17-2023 12:20-0400 Body mass index (BMI) [Ratio] 28.34 kg/m2 Oma Donato Other [facility] Other 01-17-2023 12:20-0400 Body temperature 97.3 [degF] Oma Donato Other [facility] Other 01-17-2023 12:20-0400 Body weight 79.65 kg Oma Donato Other [facility] Other 01-17-2023 12:20-0400 Diastolic blood pressure 66 mm[Hg] Oma Donato Other [facility] Other 01-17-2023 12:20-0400 Respiratory rate 18 /min Oma Donato Other [facility] Other 01-17-2023 12:20-0400 SaO2% (BldA) [Mass fraction] 98 % Oma Donato Other [facility] Other 01-17-2023 12:20-0400 Systolic blood pressure 149 mm[Hg] Oma Donato Other [facility] Other 12-06-2022 09:40-0400 Body height 167.64 cm Oma Donato Other [facility] Other 12-06-2022 09:40-0400 Body mass index (BMI) [Ratio] 27.79 kg/m2 Oma Donato Other [facility] Other 12-06-2022 09:40-0400 Body temperature 96.2 [degF] Oma Donato Other [facility] Other 12-06-2022 09:40-0400 Body weight 78.11 kg Oma Donato Other [facility] Other 12-06-2022 09:40-0400 Diastolic blood pressure 60 mm[Hg] Oma Donato Other [facility] Other 12-06-2022 09:40-0400 Respiratory rate 16 /min Oma Donato Other [facility] Other 12-06-2022 09:40-0400 SaO2% (BldA) [Mass fraction] 99 % Oma Donato Other [facility] Other 12-06-2022 09:40-0400 Systolic blood pressure 92 mm[Hg] Oma Donato Other [facility] Other 11-15-2022 13:20-0400 Body height 167.64 cm Oma Donato Other [facility] Other 11-15-2022 13:20-0400 Body temperature 96.5 [degF] Oma Donato Other [facility] Other 11-15-2022 13:20-0400 Diastolic blood pressure 64 mm[Hg] Oma Donato Other [facility] Other 11-15-2022 13:20-0400 Respiratory rate 18 /min Oma Donato Other [facility] Other 11-15-2022 13:20-0400 SaO2% (BldA) [Mass fraction] 98 % Oma Donato Other [facility] Other 11-15-2022 13:20-0400 Systolic blood pressure 130 mm[Hg] Oma Donato Other [facility] Other 10-25-2022 10:00-0400 Body height 167.64 cm Oma Donato Other [facility] Other 10-25-2022 10:00-0400 Body mass index (BMI) [Ratio] 27.79 kg/m2 Oma Donato Other [facility] Other 10-25-2022 10:00-0400 Body temperature 96.1 [degF] Oma Donato Other [facility] Other 10-25-2022 10:00-0400 Body weight 78.11 kg Oma Donato Other [facility] Other 10-25-2022 10:00-0400 Diastolic blood pressure 54 mm[Hg] Oma Donato Other [facility] Other 10-25-2022 10:00-0400 Respiratory rate 18 /min Oma Donato Other [facility] Other 10-25-2022 10:00-0400 SaO2% (BldA) [Mass fraction] 99 % Oma Donato Other [facility] Other 10-25-2022 10:00-0400 Systolic blood pressure 143 mm[Hg] Oma Donato Other [facility] Other 09-10-2022 16:20-0400 Body height 167.64 cm Oma Donato Other [facility] Other 09-10-2022 16:20-0400 Body mass index (BMI) [Ratio] 28.34 kg/m2 Oma Donato Other [facility] Other 09-10-2022 16:20-0400 Body temperature 97.2 [degF] Oma Donato Other [facility] Other 09-10-2022 16:20-0400 Body weight 79.65 kg Oma Donato Other [facility] Other 09-10-2022 16:20-0400 Diastolic blood pressure 64 mm[Hg] Oma Donato Other [facility] Other 09-10-2022 16:20-0400 Respiratory rate 18 /min Oma Donato Other [facility] Other 09-10-2022 16:20-0400 SaO2% (BldA) [Mass fraction] 98 % Oma Donato Other [facility] Other 09-10-2022 16:20-0400 Systolic blood pressure 128 mm[Hg] Oma Donato Other [facility] Other 08-22-2022 10:30-0400 Body height 167.64 cm Dasia Flowers Other [facility] Other 08-22-2022 10:30-0400 Body mass index (BMI) [Ratio] 27.92 kg/m2 Dasia Flowers Other [facility] Other 08-22-2022 10:30-0400 Body temperature 97.8 [degF] Dasia Flowers Other [facility] Other 08-22-2022 10:30-0400 Body weight 78.47 kg Dasia Flowers Other [facility] Other 08-22-2022 10:30-0400 Diastolic blood pressure 58 mm[Hg] Dasia Flowers Other [facility] Other 08-22-2022 10:30-0400 SaO2% (BldA) [Mass fraction] 98 % Dasia Flowers Other [facility] Other 08-22-2022 10:30-0400 Systolic blood pressure 96 mm[Hg] Dasia Flowers Other [facility] Other 08-14-2022 10:20-0400 Body height 167.64 cm Dorinda [email or web address] Other [facility] Other 08-14-2022 10:20-0400 Body mass index (BMI) [Ratio] 27.92 kg/m2 Dorinda RedKLEVERs Other [facility] Other 08-14-2022 10:20-0400 Body temperature 96.8 [degF] Dorinda RedKLEVERs Other [facility] Other 08-14-2022 10:20-0400 Body weight 78.47 kg Dorinda Motley Other [facility] Other 08-14-2022 10:20-0400 Diastolic blood pressure 57 mm[Hg] Dorinda Motley Other [facility] Other 08-14-2022 10:20-0400 Respiratory rate 18 /min Dorinda Motley Other [facility] Other 08-14-2022 10:20-0400 SaO2% (BldA) [Mass fraction] 99 % Dorinda Motley Other [facility] Other 08-14-2022 10:20-0400 Systolic blood pressure 98 mm[Hg] Dorinda Motley Other [facility] Other 07-26-2022 15:24-0400 Body temperature 98.01 [degF] Gabe Harris MD Work Phone: [email or web address] 07-26-2022 15:24-0400 Diastolic blood pressure 70 mm[Hg] Gabe Harris MD Work Phone: [facility] [email or web address] 07-26-2022 15:24-0400 Heart rate 74 /min Gabe Harris MD Work Phone: [facility] [email or web address] 07-26-2022 15:24-0400 Respiratory rate 18 /min Gabe Harris MD Work Phone: [facility] [email or web address] 07-26-2022 15:24-0400 SaO2% (BldA) [Mass fraction] 98 % Gabe Harris MD Work Phone: [facility] [email or web address] 07-26-2022 15:24-0400 Systolic blood pressure 114 mm[Hg] Gabe Harris MD Work Phone: [facility] [email or web address] 07-23-2022 03:33-0400 SaO2% (BldA) [Mass fraction] 97 % Gabe Harris MD Work Phone: [facility] [email or web address] 07-19-2022 18:09-0400 Body height 170.2 cm Gabe Harris MD Work Phone: [facility] [email or web address] 07-19-2022 18:09-0400 Body mass index (BMI) [Ratio] 26.47 kg/m2 Gabe Harris MD Work Phone: [facility] [email or web address] 07-19-2022 18:09-0400 Body weight 76.66 kg Gabe Harris MD Work Phone: [facility] [email or web address] 07-17-2022 09:40-0400 Body height 167.64 cm Oma Donato Other [facility] Other 07-17-2022 09:40-0400 Body mass index (BMI) [Ratio] 27.98 kg/m2 Oma Donato Other [facility] Other 07-17-2022 09:40-0400 Body temperature 98.3 [degF] Oma Donato Other [facility] Other 07-17-2022 09:40-0400 Body weight 78.65 kg Oma Donato Other [facility] Other 07-17-2022 09:40-0400 Diastolic blood pressure 60 mm[Hg] Oma Donato Other [facility] Other 07-17-2022 09:40-0400 Respiratory rate 18 /min Oma Donato Other [facility] Other 07-17-2022 09:40-0400 SaO2% (BldA) [Mass fraction] 97 % Oma Donato Other [facility] Other 07-17-2022 09:40-0400 Systolic blood pressure 124 mm[Hg] Oma Donato Other [facility] Other 06-21-2022 10:40-0400 Body height 167.64 cm Oma Donato Other [facility] Other 06-21-2022 10:40-0400 Body mass index (BMI) [Ratio] 28.5 kg/m2 Oma Donato Other [facility] Other 06-21-2022 10:40-0400 Body temperature 96.7 [degF] Oma Donato Other [facility] Other 06-21-2022 10:40-0400 Body weight 80.11 kg Oma Donato Other [facility] Other 06-21-2022 10:40-0400 Diastolic blood pressure 50 mm[Hg] Oma Donato Other [facility] Other 06-21-2022 10:40-0400 Respiratory rate 18 /min Oma Donato Other [facility] Other 06-21-2022 10:40-0400 SaO2% (BldA) [Mass fraction] 96 % Oma Donato Other [facility] Other 06-21-2022 10:40-0400 Systolic blood pressure 102 mm[Hg] Oma Donato Other [facility] Other 05-10-2022 10:00-0500 Body height 167.64 cm Oma Donato Other [facility] Other 05-10-2022 10:00-0500 Body mass index (BMI) [Ratio] 29.66 kg/m2 Oma Donato Other [facility] Other 05-10-2022 10:00-0500 Body temperature 96.6 [degF] Oma Donato Other [facility] Other 05-10-2022 10:00-0500 Body weight 83.37 kg Oma Donato Other [facility] Other 05-10-2022 10:00-0500 Diastolic blood pressure 53 mm[Hg] Oma Donato Other [facility] Other 05-10-2022 10:00-0500 Respiratory rate 18 /min Oma Donato Other [facility] Other 05-10-2022 10:00-0500 SaO2% (BldA) [Mass fraction] 98 % Oma Donato Other [facility] Other 05-10-2022 10:00-0500 Systolic blood pressure 134 mm[Hg] Oma Donato Other [facility] Other 05-07-2022 09:40-0500 Body height 167.64 cm Oma Donato Other [facility] Other 05-07-2022 09:40-0500 Body mass index (BMI) [Ratio] 29.21 kg/m2 Oam Donato Other [facility] Other 05-07-2022 09:40-0500 Body temperature 98.7 [degF] Oma Donato Other [facility] Other 05-07-2022 09:40-0500 Body weight 82.1 kg Oma Donato Other [facility] Other 05-07-2022 09:40-0500 Diastolic blood pressure 70 mm[Hg] Oma Donato Other [facility] Other 05-07-2022 09:40-0500 Respiratory rate 18 /min Oma Donato Other [facility] Other 05-07-2022 09:40-0500 SaO2% (BldA) [Mass fraction] 98 % Oma Donato Other [facility] Other 05-07-2022 09:40-0500 Systolic blood pressure 130 mm[Hg] Oma Donato Other [facility] Other 04-16-2022 10:18-0500 Diastolic blood pressure 58 mm[Hg] MD Ruben Luo Work Phone: [facility] 04-16-2022 10:18-0500 Heart rate 67 /min MD Ruben Luo Work Phone: [facility] 04-16-2022 10:18-0500 Respiratory rate 16 /min MD uRben Luo Work Phone: [facility] 04-16-2022 10:18-0500 SaO2% (BldA) [Mass fraction] 98 % MD Ruben Luo Work Phone: [facility] 04-16-2022 10:18-0500 Systolic blood pressure 110 mm[Hg] MD Ruben Luo Work Phone: [facility] 04-16-2022 08:34-0500 Body height 170.18 cm MD Ruben Luo Work Phone: [facility] 04-16-2022 08:34-0500 Body temperature 98.3 [degF] MD Ruben Luo Work Phone: [facility] 04-16-2022 08:34-0500 Body weight 78.01 kg MD Ruben Luo Work Phone: [facility] 12-14-2021 10:20-0400 Body height 167.64 cm Oma Donato Other [facility] Other 12-14-2021 10:20-0400 Body mass index (BMI) [Ratio] 28.66 kg/m2 Oma Donato Other [facility] Other 12-14-2021 10:20-0400 Body temperature 96.7 [degF] Oma Donato Other [facility] Other 12-14-2021 10:20-0400 Body weight 80.56 kg Oma Donato Other [facility] Other 12-14-2021 10:20-0400 Diastolic blood pressure 61 mm[Hg] Oma Donato Other [facility] Other 12-14-2021 10:20-0400 Respiratory rate 18 /min Oma Donato Other [facility] Other 12-14-2021 10:20-0400 SaO2% (BldA) [Mass fraction] 99 % Oma Donato Other [facility] Other 12-14-2021 10:20-0400 Systolic blood pressure 138 mm[Hg] Oma Donato Other [facility] Other 09-21-2021 09:40-0400 Body height 167.64 cm Oma Donato Other [facility] Other 09-21-2021 09:40-0400 Body mass index (BMI) [Ratio] 29.57 kg/m2 Oma Donato Other [facility] Other 09-21-2021 09:40-0400 Body temperature 96.8 [degF] Oma Donato Other [facility] Other 09-21-2021 09:40-0400 Body weight 83.1 kg Oma Donato Other [facility] Other 09-21-2021 09:40-0400 Diastolic blood pressure 63 mm[Hg] Oma Donato Other [facility] Other 09-21-2021 09:40-0400 Respiratory rate 18 /min Oma Donato Other [facility] Other 09-21-2021 09:40-0400 SaO2% (BldA) [Mass fraction] 98 % Oma Donato Other [facility] Other 09-21-2021 09:40-0400 Systolic blood pressure 116 mm[Hg] Oma Donato Other [facility] Other 08-14-2021 15:20-0400 Body height 167.64 cm Oma Donato Other [facility] Other 08-14-2021 15:20-0400 Body mass index (BMI) [Ratio] 29.7 kg/m2 Oma Donato Other [facility] Other 08-14-2021 15:20-0400 Body temperature 98.4 [degF] Oma Donato Other [facility] Other 08-14-2021 15:20-0400 Body weight 83.46 kg Oma Donato Other [facility] Other 08-14-2021 15:20-0400 Diastolic blood pressure 60 mm[Hg] Oma Donato Other [facility] Other 08-14-2021 15:20-0400 Respiratory rate 18 /min Oma Donato Other [facility] Other 08-14-2021 15:20-0400 SaO2% (BldA) [Mass fraction] 99 % Oma Donato Other [facility] Other 08-14-2021 15:20-0400 Systolic blood pressure 152 mm[Hg] Oma Donato Other [facility] Other 08-10-2021 11:00-0400 Body height 167.64 cm Ney Roman Other [facility] Other 08-10-2021 11:00-0400 Body mass index (BMI) [Ratio] 29.21 kg/m2 Ney Roman Other [facility] Other 08-10-2021 11:00-0400 Body temperature 96.9 [degF] Ney Roman Other [facility] Other 08-10-2021 11:00-0400 Body weight 82.1 kg Ney Jessie Other [facility] Other 08-10-2021 11:00-0400 Diastolic blood pressure 58 mm[Hg] Ney Roman Other [facility] Other 08-10-2021 11:00-0400 SaO2% (BldA) [Mass fraction] 95 % Ney Roman Other [facility] Other 08-10-2021 11:00-0400 Systolic blood pressure 130 mm[Hg] Ney Jessie Other [facility] Other Encounters Encounter Date Encounter Type Care Provider Facility Start: 03-26-2023 End: 03-26-2023 ambulatory Oma Donato Other [facility] Other Start: 03-26-2023 Office outpatient vi sit 15 minutes Oma Donato [facility] Start: 03-20-2023 Office outpatient vi sit 15 minutes Ney Roman [facility] Start: 03-20-2023 End: 03-20-2023 ambulatory MD Ruben Luo Work Phone: [facility] Other Start: 03-20-2023 End: 03-20-2023 Patient encounter procedure MD Ruben Luo Work Phone: [facility] Start: 02-25-2023 (INJECTION) INJECTION Oma Donato [facility] Start: 02-25-2023 End: 02-25-2023 ambulatory Oma Donato Other [facility] Other Start: 02-20-2023 End: 02-20-2023 ambulatory [facility] Start: 02-11-2023 End: 02-11-2023 ambulatory Oma Donato Other [facility] Other Start: 02-11-2023 Telephone encounter Moa Donato [facility] Start: 01-31-2023 End: 02-01-2023 ambulatory Ruben Luo MD Facility:[facility] Start: 01-30-2023 End: 01-31-2023 ambulatory Ruben Luo MD Facility:[facility] Start: 01-29-2023 End: 01-29-2023 ambulatory Oma Donato Other [facility] Other Start: 01-29-2023 Office outpatient vi sit 15 minutes Oma Donato [facility] Start: 01-17-2023 (INJECTION) INJECTION O[facility] Donato [facility] Start: 01-17-2023 End: 01-17-2023 ambulatory Oma Donato Other [facility] Other Start: 01-11-2023 End: 01-12-[facility] Start: 01-11-2023 End: 01-12-2023 Encounter for preprocedural laboratory examination RUBEN Porter [facility] Start: 01-10-2023 End: 01-10-2023 Encounter for preprocedural cardiovascular examination [facility] Start: 01-10-2023 Encounter for other preprocedural examination [facility] Start: 01-10-2023 End: 01-13-2023 ambulatory [facility] Start: 01-10-2023 End: 01-13-2023 Encounter for preprocedural respiratory examination [facility] Start: 01-08-2023 End: 01-09-2023 ambulatory Ruben Luo MD Facility:[facility] Start: 12-25-2022 End: 12-28-2022 ambulatory [facility] Start: 12-06-2022 End: 12-06-2022 ambulatory Oma Donato Other [facility] Other Start: 12-06-2022 Office outpatient vi sit 15 minutes Oma Donato [facility] Start: 11-15-2022 End: 11-15-2022 ambulatory Oma Donato Other [facility] Other Start: 11-15-2022 Office outpatient vi sit 15 minutes Oma Donato [facility] Start: 10-25-2022 End: 10-25-2022 ambulatory Oma Donato Other [facility] Other Start: 10-25-2022 Office outpatient vi sit 15 minutes Oma Donato [facility] Start: 09-10-2022 End: 09-10-2022 ambulatory Oma Donato Other [facility] Other Start: 09-10-2022 Office outpatient vi sit 15 minutes Oma Donato [facility] Start: 08-22-2022 End: 08-22-2022 ambulatory Dasia Flowers Other [facility] Other Start: 08-22-2022 Patient encounter procedure Dasia Flowers [facility] Surgery Start: 08-20-2022 End: 08-20-2022 ambulatory Ney Roman Facility:[facility] Start: 08-14-2022 End: 08-14-2022 ambulatory Dorinda Motley Other [facility] Other Start: 08-14-2022 Office outpatient vi sit 15 minutes Aziz Bakcarolinas [facility] Start: 08-10-2022 End: 08-11-2022 ambulatory OMA DONATO Facility:[facility] Start: 08-08-2022 End: 08-09-[address] RUBEN LUO . Facility:[facility] Start: 07-19-2022 End: 07-26-2022 Evaluation and management of inpatient OLBRENNANMI A DYAN [facility] Start: 07-19-2022 End: 07-26-2022 Evaluation and management of inpatient Gabe Harris MD Work Phone: [facility] Comment on above: Lumbar stenosis with neurogenic claudication (Primary Dx) Start: 07-18-2022 End: 07-18-2022 ambulatory [facility] Start: 07-17-2022 End: 07-17-2022 ambulatory Oma Donato Other [facility] Other Start: 07-17-2022 Office outpatient vi sit 15 minutes Oma Donato [facility] Start: 07-12-2022 End: 07-13-2022 ambulatory OMA DONATO Facility:[facility] Start: 07-12-2022 End: 07-13-[address] RUBEN LUO . Facility:[facility] Start: 2022 Encounter for preprocedural laboratory examination DR DOCTOR BARROSO [facility] Start: 2022 Encounter for preprocedural respiratory examination DR DOCTOR BARROSO [facility] Start: 2022 End: 07-06-2022 ambulatory RUBEN LUO [facility] Start: 2022 Patient encounter procedure RUBEN LUO [facility] Start: 2022 End: [address] [facility] Start: 2022 End: 2022 Subsequent hospital visit by physician Lorie Xr [address] Radiology Comment on above: Examination for norm al comparison for clinical research Start: 07-04-2022 End: 07-04-2022 ambulatory Oma Donato Other [facility] Other Start: 07-04-2022 Telephone encounter Oma Donato [facility] Start: 07-02-2022 End: 07-03-[address] DOCTOR BARROSO Facility:[facility] Start: 07-02-2022 End: 07-03-2022 Encounter for preprocedural respiratory examination DR DOCTOR BARROSO Facility:[facility] Start: 06-21-2022 End: 06-21-2022 ambulatory Oma Donato Other [facility] Other Start: 06-21-2022 Office outpatient vi sit 15 minutes Oma Donato [facility] Start: 06-21-2022 Telephone encounter Oma Donato [facility] Start: 06-19-2022 End: 06-20-2022 ambulatory OMA DONATO Facility:[facility] Start: 05-30-2022 End: 06-02-2022 [facility] Start: 05-30-2022 End: 06-01-2022 Subsequent hospital visit by physician Dhruv Macdonald [facility] Mammography Comment on above: Osteopenia of lumbar spine Spinal stenosis, lum bar region, without neurogenic claudication; Right foot drop Start: 05-10-2022 (INJECTION) INJECTION Oma Donato [facility] Start: 05-10-2022 End: 05-10-2022 ambulatory Oma Donato Other [facility] Other Start: 05-08-2022 End: 05-11-2022 ambulatory OSIEL ELAINE [facility] Start: 05-08-2022 End: 05-10-2022 Subsequent hospital visit by physician Mth Mri Scanner [facility] MRI Comment on above: 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 [facility] Other Start: 04-16-2022 End: 04-16-2022 ambulatory Orlando Beaver Facility:[facility] Start: 04-16-2022 End: 04-16-2022 Admission to same day surgery center MD Ruben Luo Work Phone: [facility] Work Phone: Start: 04-16-2022 End: 04-16-2022 ambulatory MD Ruben Luo Work Phone: [facility] Work Phone: Start: 04-13-2022 End: 04-14-[address] RUBEN LUO . Facility: Start: 04-12-2022 End: 04-12-2022 ambulatory MD Ruben Luo Work Phone: [facility] Work Phone: Start: 04-12-2022 End: 04-12-2022 Patient encounter procedure MD Ruben Luo Work Phone: [facility] Work Phone: Start: 01-22-2022 Telephone encounter [place] OLIVEIRA [facility] Start: 01-22-2022 End: 01-23-2022 ambulatory [employer] [facility] Other Start: 12-27-2021 End: 12-27-[address] RUBEN LUO . Facility:[facility] Start: 12-14-2021 End: 12-14-2021 ambulatory Oma Donato Other [facility] Other Start: 12-14-2021 Office outpatient vi sit 25 minutes Oma Donato [facility] Start: 12-09-2021 End: 12-10-2021 ambulatory OMA DONATO Facility:[facility] Start: 10-13-2021 End: 10-14-[address] RUBEN LUO . Facility:[facility] Start: 10-07-2021 End: 10-08-[address] RUBEN LUO . Facility:[facility] Start: 09-21-2021 End: 09-21-2021 ambulatory Oma Donato Other [facility] Other Start: 09-21-2021 Office outpatient vi sit 25 minutes Oma Donato [facility] Start: 09-15-2021 End: 09-16-[address] RUBEN LUO . Facility:[facility] Start: 09-01-2021 End: 09-02-[address] RUBEN ULO . Facility:[facility] Start: 08-14-2021 End: 08-14-2021 ambulatory Oma Donato Other [facility] Other Start: 08-14-2021 Office outpatient ne w 45 minutes Oma Donato [facility] Start: 08-10-2021 End: 08-10-2021 ambulatory Ney Roman Other [facility] Other Start: 08-10-2021 Office outpatient vi sit 15 minutes Ney Roman [facility] Start: 04-22-2019 End: 04-22-2019 Subsequent hospital visit by physician Ruben Luo MD Other Phone: [facility] Laboratory Comment on above: Enlarged prostate; BPH with obstruction/lower urinary tract symptoms; Abnormal digital rectal exam; Erectile dysfunction, unspecified erectile dysfunction type Start: 09-12-2018 End: 09-13-2018 Patient encounter procedure PROVIDER UNKNOWN Facility:[facility] Start: 01-17-2018 End: 01-18-2018 Patient encounter procedure GABY ORTIZ Facility:[facility] Procedures Date Procedure Procedure Detail Performing Clinician Start: 03-20-2023 Doppler ultrasonogra phy of bilateral carotid arteries MD Ruben Luo Work Phone: Start: 07-26-2022 Dup-scan xtr veins c omplete bilateral study Kylie Acuna MD Work Phone: Start: 07-26-2022 Gluc bld gluc mntr d ev cleared fda spec home use Gabe Harris MD Work Phone: Start: 07-26-2022 End: 07-26-2022 Gluc bld gluc mntr dev cleared fda spec home use Sharon Ellison PA-C Work Phone: Start: 07-26-2022 Gluc bld gluc mntr d ev cleared fda spec home use Sharon Ellison PA-C Work Phone: Start: 07-26-2022 Anion gap [Moles/Vol] O pancho Acuna MD Work Phone: Start: 07-26-2022 Basic metabolic pane l calcium total Kylie Acuna MD Work Phone: Start: 07-26-2022 GLOMERULAR FILTRATIO N RATE, ESTIMATED Kylie Acuna MD Work Phone: Start: 07-25-2022 Gluc bld gluc mntr d ev cleared fda spec home use Gabe Harris MD Work Phone: Start: 07-25-2022 Gluc bld gluc mntr d ev cleared fda spec home use Sharon Ellison PA-C Work Phone: Start: 07-25-2022 Gluc bld gluc mntr d ev cleared fda spec home use Sharon Ellison PA-C Work Phone: Start: 07-25-2022 Gluc bld gluc mntr d ev cleared fda spec home use Sharon Ellison PA-C Work Phone: Start: 07-25-2022 Radex spine lumbosac ral 2/3 views Sharon KNOWLESC Work Phone: Start: 07-25-2022 Gluc bld gluc mntr d ev cleared fda spec home use Sharon KNOWLESC Work Phone: Start: 07-25-2022 Gluc bld gluc mntr d ev cleared fda spec home use Sharon Ellison PA-C Work Phone: Start: 07-25-2022 Anion gap [Moles/Vol] S tameka RUCKER-C Work Phone: Start: 07-25-2022 Basic metabolic pane l calcium total Sharon RUCKER-C Work Phone: Start: 07-25-2022 GLOMERULAR FILTRATIO N RATE, ESTIMATED Sharon Ellison PA-C Work Phone: Start: 07-25-2022 Gluc bld gluc mntr d ev cleared fda spec home use Sharon Ellison PA-C Work Phone: Start: 07-24-2022 Gluc bld gluc mntr d ev cleared fda spec home use Sharon KNOWLESC Work Phone: Start: 07-24-2022 Gluc bld gluc mntr d ev cleared fda spec home use Sharon KNOWLESC Work Phone: Start: 07-24-2022 Potassium serum plas ma/whole blood Kylie Acuna MD Work Phone: Start: 07-24-2022 Gluc bld gluc mntr d ev cleared fda spec home use Sharon KNOWLESC Work Phone: Start: 07-24-2022 Gluc bld gluc mntr d ev cleared fda spec home use Sharon Ellison PA-C Work Phone: Start: 07-24-2022 Anion gap [Moles/Vol] S tameka RUCKER-C Work Phone: Start: 07-24-2022 Basic metabolic pane l calcium total Sharon Ellison PA-C Work Phone: Start: 07-24-2022 GLOMERULAR FILTRATIO N RATE, ESTIMATED Sharon Terra PA-C Work Phone: Start: 07-23-2022 Gluc bld gluc mntr d ev cleared fda spec home use Sharon Ellison ALKA-C Work Phone: Start: 07-23-2022 Dup-scan xtr veins c omplete bilateral study Kylie Acuna MD Work Phone: Start: 07-23-2022 Ct head/brain w/o co ntrast material Dave Ham MD Work Phone: Start: 07-23-2022 Gluc bld gluc mntr d ev cleared fda spec home use Sharon Ellison PA-C Work Phone: Start: 07-23-2022 Gluc bld gluc mntr d ev cleared fda spec home use Sharon Ellison ALKA-C Work Phone: Start: 07-23-2022 Anion gap [Moles/Vol] S tameka Terra ALKA-C Work Phone: Start: 07-23-2022 End: 07-23-2022 Basic metabolic panel calcium total Sharon Ellison ALKA-C Work Phone: Start: 07-23-2022 GLOMERULAR FILTRATIO N RATE, ESTIMATED Sharon RUCKER-C Work Phone: Start: 07-23-2022 Gas panel - Arterial blood Kylie Acuna MD Work Phone: Start: 07-23-2022 Urinalysis microscopic only Kylie Acuna MD Work Phone: Start: 07-22-2022 Gluc bld gluc mntr d ev cleared fda spec home use Sharon RUCKER-C Work Phone: Start: 07-22-2022 Anion gap [Moles/Vol] O pancho Acuna MD Work Phone: Start: 07-22-2022 Basic metabolic pane l calcium total Kylie Acuna MD Work Phone: Start: 07-22-2022 GLOMERULAR FILTRATIO N RATE, ESTIMATED Kylie Acuna MD Work Phone: Start: 07-22-2022 Gluc bld gluc mntr d ev cleared fda spec home use Sharon RUCKER-C Work Phone: Start: 07-22-2022 Gluc bld gluc mntr d ev cleared fda spec home use Sharon RUCKER-C Work Phone: Start: 07-22-2022 Gluc bld gluc mntr d ev cleared fda spec home use Sharon RUCKER-C Work Phone: Start: 07-22-2022 Anion gap [Moles/Vol] S tameka Ellison PA-C Work Phone: Start: 07-22-2022 Basic metabolic pane l calcium total Sharon RUCKER-C Work Phone: Start: 07-22-2022 GLOMERULAR FILTRATIO N RATE, ESTIMATED Sharon RUCKER-C Work Phone: Start: 07-21-2022 Gluc bld gluc mntr d ev cleared fda spec home use Sharon RUCKER-C Work Phone: Start: 07-21-2022 Gluc bld gluc mntr d ev cleared fda spec home use Sharon RUCKER-C Work Phone: Start: 07-21-2022 Gluc bld gluc mntr d ev cleared fda spec home use Sharon RUCKER-C Work Phone: Start: 07-21-2022 Gluc bld gluc mntr d ev cleared fda spec home use Sharon RUCKER-C Work Phone: Start: 07-21-2022 Anion gap [Moles/Vol] S tameka Ellison PA-C Work Phone: Start: 07-21-2022 Basic metabolic pane l calcium total Sharon RUCKER-C Work Phone: Start: 07-21-2022 GLOMERULAR FILTRATIO N RATE, ESTIMATED Sharon RUCKER-C Work Phone: Start: 07-20-2022 Gluc bld gluc mntr d ev cleared fda spec home use Sharon Ellison PA-C Work Phone: Start: 07-20-2022 Gluc bld gluc mntr d ev cleared fda spec home use Sharon Ellison PA-C Work Phone: Start: 07-20-2022 Fluoroscopy during operation Gabe Harris MD Work Phone: Start: 07-20-2022 Radex spine lumbosac ral 2/3 views Gabe Harris MD Work Phone: Start: 07-20-2022 Radex spine 1 view s pecify level Gabe Harris MD Work Phone: Start: 07-20-2022 End: 07-20-2022 Arthrodesis posterior/posterolateral lumbar Gabe Harris MD Work Phone: Start: 07-20-2022 Anion gap [Moles/Vol] S tameka Ellison PA-C Work Phone: Start: 07-20-2022 Basic metabolic pane l calcium total Sharon Ellison PA-C Work Phone: Start: 07-20-2022 GLOMERULAR FILTRATIO N RATE, ESTIMATED Sharon Ellison PA-C Work Phone: Start: 07-19-2022 Blood count hemoglobin Gabe Harris MD Work Phone: Start: 07-19-2022 Radiologic exam ches t single view Kylie Acuna MD Work Phone: Start: 07-19-2022 Gluc bld gluc mntr d ev cleared fda spec home use Sharon Ellison PA-C Work Phone: Start: 07-19-2022 End: 07-19-2022 Transfusion of packed red blood cells Gabe Harris MD Work Phone: Start: 07-19-2022 End: 07-19-2022 Transfusion of packed red blood cells Sharon Ellison PA-C Work Phone: Start: 07-19-2022 Antibody screen Gabe Harris MD Work Phone: Comment on above: Performed at [facility] [address] [place] [address] Start: 07-19-2022 Anion gap [Moles/Vol] S tameka Ellison PA-C Work Phone: Start: 07-19-2022 Basic metabolic pane l calcium total Sharon Ellison PA-C Work Phone: Start: 07-19-2022 Blood typing serologic abo Sharon Ellison PA-C Work Phone: Start: 07-19-2022 GLOMERULAR FILTRATIO N RATE, ESTIMATED Sharon Ellison PA-C Work Phone: Start: 05-30-2022 Dxa bone density hoang dy 1/> sites axial skel Sharon Ellison PA-C Work Phone: Start: 05-21-2022 XR COMPARISON OF OUT SIDE FILMS Gissel Escobedo MD Work Phone: Start: 05-08-2022 Mri spinal canal lum bar w/o contrast material Osiel Elaine 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 NURSE - PERSONAL FINANCIAL COUNSELOR Work Phone: Start: 04-16-2022 Colonoscopy MD Ruben Luo Work Phone: Start: 04-12-2022 SARS Antigen (LFIA) MD Ruben Luo Work Phone: Start: 04-22-2019 Urnls dip stick/tabl et reagent auto microscopy Ralph Mccurdy MD Work Phone: Start: 01-17-2018 CORONARY ARTERY ANGIO S\T\I VADIM Apollo VERONICA Laboratory test resu lt abnormal Ney Roman Other Plan of Treatment Date Care Activity Detail Author Start: 07-27-2023 GFR test (Diabetes, CKD 3-4, OR last GFR 15-59) GFR test (Diabetes, CKD 3-4, OR last GFR 15-59) [email or web address] Start: 07-21-2023 Hemoglobin A1c measurement A1C test (Diabetic or Prediabetic) [email or web address] Start: 07-20-2022 End: 07-20-2022 Admission to same day surgery center 07/20/2022 Surgery IP Unit Gabe Harris MD [address] [place] [address] L2-S1 REVISION DECOMPRESSION WITH L2-PELVIS FUSION [facility] Comment on above: L2-S1 REVISION DECOM PRESSION WITH L2-PELVIS FUSION Start: 07-20-2022 End: 07-20-2022 Arthrodesis posterior/posterolateral lumbar LUMBAR LAMINECTOMY FUSION INSTRUMENTATION POSTERIOR Lumbar spondylosis Spinal stenosis, unspecified spinal region Spondylolisthesis, unspecified spinal region 07/20/2022 7:30 AM EDT [facility] Start: 07-20-2022 Subsequent hospital visit by physician 07/20/2022 Hospital Encounter IP Unit Gabe Harris MD [address] [place] [address] [facility] Start: 04-16-2022 [facility] Start: 04-22-2019 Annual Wellness Visi t (AWV) Annual Wellness Visit (AWV) [email or web address] Start: 12-07-2018 Influenza vaccination Flu vaccine (# 1) [employer] Phone: Start: 04-04-2016 Creatinine monitoring Creatinine mon itoring [employer] Phone: Start: 04-04-2016 Potassium monitoring Potassium monit oring [employer] Phone: Start: 2014 Abdominal aortic aneurysm screening AAA screen [email or web address] Start: 2014 Pneumococcal 65+ yea rs Vaccine (1 of 1 - PPSV23) Pneumococcal 65+ years Vaccine (1 of 1 - PPSV23) [employer] Phone: Start: 07-06-1999 Colon cancer screen colonoscopy Colon cancer screen colonoscopy [employer] Phone: Start: 07-06-1999 Shingles Vaccine (1 of 2) Shingles Vaccine (1 of 2) [email or web address] Start: 1994 Screening for malign ant neoplasm of colon [email or web address] Start: 1989 Lipid panel [facility] [employer] Start: 1989 Lipid screen [facility] screen [facility] Work Phone: Start: 1968 DTaP/Tdap/Td vaccine (1 - Tdap) DTaP/Tdap/Td vaccine (1 - Tdap) [email or web address] Start: 07-06-1967 Glaucoma screening Diabetic retinal exam [facility] [email or web address] Start: 07-06-1967 Hepatitis C screening Hepatitis C sc reen [facility] [email or web address] Start: 07-06-1967 Urine screening for protein Diabetic Alb to Cr ratio (uACR) test [email or web address] Start: 1961 Depression Screen Depression Screen [email or web address] Start: 1960 DTaP/Tdap/Td vaccine (1 - Tdap) DTaP/Tdap/Td vaccine (1 - Tdap) [employer] Phone: Start: 07-06-1959 Diabetic foot examination Diabetic foot exam [email or web address] Start: 07-06-1959 Lipid panel [employer] [employer] Start: 1949 AAA screen AAA screen [employer] [facility] Work Phone: Start: 1949 Hepatitis C screen Hepatitis C scree n [employer] Phone: End: 04-22-2019 Bacteria identified in Urine by Culture Urine Culture Microbiology Routine 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 Abnormal digital rectal exam Erectile dysfunction, unspecified erectile dysfunction type 1 Occurrences starting 04/22/2019 until 04/22/2019 [employer] Phone: Comment on above: 1 Occurrences starti ng 04/22/2019 until 04/22/2019 Bacteria identified in Urine by Culture Urine Culture Microbiology Routine 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 Abnormal digital rectal exam Erectile dysfunction, unspecified erectile dysfunction type 04/22/2019 6:56 PM EST [employer] Phone: End: 05-30-2022 CT LUMBAR SPINE WO CONTRAST [email or web address] Work Phone: Comment on above: 1 Occurrences starti ng 05/30/2022 until 05/30/2022 End: 05-30-2022 CT THORACIC SPINE WO CONTRAST [facility] Phone: Comment on above: 1 Occurrences starti ng 05/30/2022 until 05/30/2022 Glucose [Mass/volume ] in Serum or Plasma [facility] Phone: Comment on above: 4X Daily (AC & HS) u ntil discontinued starting 07/19/2022, 29 completed As Needed until disc ontinued starting 07/19/2022 End: 07-20-2022 Hemoglobin and Hematocrit Hemoglobin and Hematocrit Lab Routine Post Transfusion Post Transfusion Post Transfustion until discontinued starting 07/19/2022 [facility] Phone: Comment on above: Post Transfusion Pos t Transfusion Post Transfustion until discontinued starting 07/19/2022 Initiate RT Inhaler-Nebulizer Bronchodilator Protocol Initiate RT Inhaler-Nebulizer Bronchodilator Protocol Respiratory Care Routine As Needed until discontinued starting 07/21/2022 [facility] Phone: Comment on above: As Needed until disc ontinued starting 07/21/2022 Oxygen therapy [[facility] Data Set] Initiate Oxygen Therapy Protocol Respiratory Care Routine As Needed until discontinued starting 07/20/2022 [facility] Phone: Comment on above: As Needed until disc ontinued starting 07/20/2022 Patient Education Colon Polypectomy (DC) [facility] Work Phone: Spirometry panel Incentive erma metry Respiratory Care Routine Every 2hr while awake until discontinued starting 07/20/2022 [employer] Phone: Comment on above: Every 2hr while awak e until discontinued starting 07/20/2022 Immunizations Immunization Date Immunization Notes Care Provider Cornelia mendoza 01-19-2017 influenza, high dose seasonal, preservative-free Ney Roman Other [facility] [employer] Other 04-06-2014 influenza, high dose seasonal, preservative-free Ney Roman Other [facility] [employer] Other 04-06-2014 influenza, injectable, quadrivalent, preservative free Oma Sewell Other [facility] [employer] Other Payers Date Payer Category Payer Self-pay [id number] 2019 Unknown [employer] [address] xxxxxxxxxxxx 2019-Present [phone] [address] [place] [address] xxxxxxxxxxxx [id number] 2019 Unknown 2014 Medicare MEDICARE MEDICAR E PART A AND B xxxxxxxxxxx 2014-Present [phone] [address] [address] [place] [address] xxxxxxxxxxx [id number] .[id number] 2014 Medicare 1959 Medicare [id number] 1959 Unknown [id number] .[id number] 1949 Unknown [id number] .16840.1.493275.3.579.2.647 1949 Unknown [id number] .16.840.1.863739.3.579.2.647 1949 Unknown [id number] .16.840.1.579492.3.579.2.93 1949 Unknown [id number] .16.840.1.992049.3.579.2.93 1949 Unknown [id number] 2.16.840.1.849028.3.579.2.593 1949 Unknown [id number] 2.16.840.1.924908.3.579.2.593 1949 Unknown [id number] 2.16.840.1.644568.3.579.2.593 1949 Unknown [id number] 2.16.840.1.592973.3.579.2.593 1949 Unknown [id number] 2.16.840.1.754825.3.579.2.593 1949 Unknown [id number] 2.16.840.1.602301.3.579.2.593 1949 Unknown [id number] 2.16.840.1.890794.3.579.2.593 1949 Unknown [id number] 2.16.840.1.391109.3.579.2.593 1949 Unknown [id number] 2.16.840.1.293884.3.579.2.593 1949 Unknown [id number] 2.16.840.1.971404.3.579.2.593 1949 Unknown [id number] 2.16.840.1.677009.3.579.2.593 1949 Unknown [id number] 2.16.840.1.675095.3.579.2.593 1949 Unknown [id number] 2.16.840.1.585976.3.579.2.593 1949 Unknown [id number] 2.16.840.1.005218.3.579.2.593 1949 Unknown [id number] 2.16.840.1.193817.3.579.2.593 1949 Unknown [id number] 2.16.840.1.907669.3.579.2.173 1949 Unknown [id number] 2.16.840.1.927803.3.579.2.173 1949 Unknown [id number] 2.16.840.1.447374.3.579.2.173 1949 Unknown [id number] 2.16.840.1.677288.3.579.2.173 1949 Unknown [id number] 2.16.840.1.861435.3.579.2.173 1949 Unknown [id number] 2.16.840.1.776368.3.579.2.173 1949 Unknown [id number] 2.16.840.1.037470.3.579.2.173 1949 Unknown [id number] 2.16.840.1.472117.3.579.2.173 1949 Unknown [id number] 2.16.840.1.344157.3.579.2.173 1949 Unknown [id number] 2.16.840.1.606378.3.579.2.173 1949 Unknown [id number] 2.16.840.1.033856.3.579.2.196 1949 Unknown [id number] 2.16.840.1.094334.3.579.2.196 1949 Unknown [id number] 2.16.840.1.583107.3.579.2.196 Medicare [id number] Unknown [id number] Unknown [facility] [id number] Unknown [id number] 2.16.840.1.894159.3.579.2.531 Unknown [id number] 2.16.840.1.105849.3.579.2.531 Unknown [id number] 2.16.840.1.398392.3.579.2.531 Social History Date Type Detail Facility Start: 04-22-2019 End: 04-16-2022 Tobacco smoking status KYIS Former smoker [facility] End: 10-08-1996 History of tobacco use Current smoker [employer] End: 10-08-1996 History of tobacco use Cigarette Smoker [facility] [employer] Start: 04-22-2019 End: 07-11-2022 Cigarettes smoked current (pack per day) - Reported [facility] Phone: Start: 04-22-2019 End: 07-24-2022 Alcohol intake Current drinker of alcohol (finding) [facility] Phone: Start: 10-08-2013 Alcohol Comment rare [employer] Work Phone: Start: 1950 Sex Assigned At Not on file [employer] Phone: Sex Assigned At Sex Assigned At Bir [facility] [employer] [facility] Other Start: 1950 Sex Assigned At Male F [facility] Start: 10-29-2013 End: 07-11-2022 Tobacco use and exposure Smokeless tobacco non-user [email or web address] Work Phone: Start: 07-09-2022 End: 07-19-2022 Exposure to SARS-CoV-2 (event) Not sure [email or web address] Medical Equipment Procedure Code Equipment Code Equipment Origin al Text Equipment Identifier Dates Test Strips Start: 09-06-2017 Roel Spnl Contour ed 5.5x150 Mm Lumbar Ti Trang - [id number] Start: 07-20-2022 Goals Date Patient Goal Desired Activity /State Clinical Notes 12-13-2015 to 03-26-2023 Note Date & Type Note Facility 03-26-2023 Evaluation note Encounter Date Diagnosis Assessment Notes Mar, CKD (chronic kidney disease) stage 4, GFR 15-29 ml/min (ICD-10 - N18.4) He has a longstanding CKD due to the DM and HTN with baseline creatinine 2.4-2.6 mg/dL. I discussed with him the importance of good DM control to surround the progression of CKD. He has unremarkable Kidneys on renal US. He has no absolute contraindication for cervical spine surgery from renal standpoint. Explained to him possible risk of SIRI due to the perioperative hemodynamic changes. He understood and verbalized information. Mar, Anemia of renal disease (ICD-10 - D63.1) Hemoglobin is below the goal but has adequate iron stores. We will Continue Procrit 20,000 unit every 3 weeks. Mar, Deuce hy kid w cr kid I-IV (ICD-10 - I12.9) Blood pressure is controlled. He appears to be euvolemic. Continue Lasix 40 mg daily. Continue current dose of the carvedilol and amlodipine. 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 He is not a suitable candidate for SGL 2 inhibitors including Farxiga, Invokana and Jardiance. Also will avoid currently due to the history of hyperkalemia. Mar, Hyperkalemia (ICD-10 - E87.5) He had hyperkalemia due to the CKD and losartan. His potassium is back to normal after discontinuation of the losartan Mar, Secondary hyperparathyroidism (ICD-10 - N25.81) His PTH, calcium and phosphorus were within the goal but he had vitamin D deficiency. Continue Vit D 2000 units Daily Mar, Proteinuria (ICD-10 - R80.9) He has a nephrotic range proteinuria likely due to diabetic nephropathy. He has unremarkable work-up for paraproteinemia. Continue home losartan. Mar, Microscopic hematuria (ICD-10 - R31.29) He has longstanding microscope hematuria and was seen by the urology in the past. He had a cystoscopy and reported was unremarkable. He does not want to have urology work-up for now. He will let me know if he changes mind. Mar, Hypomagnesemia (ICD-10 - E83.42) He had hypomagnesemia possibly due to the renal magnesium wasting. Continue oral magnesium [facility] [facility] Other 12-13-2023 Evaluation note* Encounter Date Diagnosis Assessment Notes Treatment Notes Treatment Clinical Notes Mar, Carotid stenosis, left (ICD-10 - I65.22) I did review the patient's noninvasive arterial studies and carotid duplex today. He does have about 70% stenosis of the left side. He is currently asymptomatic from a cerebrovascular standpoint. I do not believe his balance issues are related to his carotid disease. Both of his vertebral arteries are patent and antegrade. The right carotid system is completely normal. He should continue his risk factor modification and maximal medical therapy. He should remain on his aspirin and statin agent for life. I understand he is taking the aspirin 3 times a week due to bleeding issues. Will see him back in 1 year for repeat carotid duplex for surveillance of the left side. He understands agrees the plan all his questions were addressed. Mar, History of carotid endarterectomy (ICD-10 - Z98.890) Mar, S/P carotid endarterectomy (ICD-10 - Z98.890) [facility] [employer] Other 11-20-2023 Evaluation note* Encounter Date Diagnosis Assessment Notes Treatment Notes Treatment Clinical Notes Feb, Anemia of renal disease (ICD-10 - D63.1) Feb, CKD (chronic kidney disease) stage 4, GFR 15-29 ml/min (ICD-10 - N18.4) [facility] [employer] Other 11-15-2023 [facility] Subjective Omer Santos is a 72 y.o. year old male patient being seen for Follow-up (6 months) Patient Active Problem List Diagnosis Coronary artery disease involving tuscarora coronary artery of tuscarora heart without angina pectoris Status post coronary artery stent placement Essential hypertension Carotid artery stenosis, asymptomatic, right History of myocardial infarction Stage 3b chronic kidney disease (CMS/HCC) Type 2 diabetes mellitus (CMS/HCC) Stented coronary artery Spinal stenosis Sensorineural hearing loss, bilateral Rosacea Right atrial enlargement Restrictive lung disease Polypharmacy Obesity Polyarthralgia Normocytic anemia Neurogenic claudication Mixed hyperlipidemia Microalbuminuria Lumbosacral spondylosis without myelopathy Lumbar radiculopathy Kidney stone Heart disease Gastroesophageal reflux disease without esophagitis Dyslipidemia Disorder of both eustachian tubes Diabetic renal disease (CMS/HCC) Diabetic peripheral neuropathy (CMS/HCC) Claustrophobia Chronic fatigue syndrome BPH with obstruction/lower urinary tract symptoms Bilateral tinnitus Asthma Allergic rhinitis Acute non-ST segment elevation myocardial infarction (CMS/HCC) Acquired spondylolisthesis Abnormal digital rectal exam Acute exacerbation of moderate persistent extrinsic asthma History of tobacco use Impotence of organic origin Acute posthemorrhagic anemia Stage 4 chronic kidney disease (CMS/HCC) Atrial enlargement, left Erectile dysfunction due to arterial insufficiency Former smoker, stopped smoking in distant past Grade II diastolic dysfunction Hypertensive heart and chronic kidney disease with heart failure and stage 1 through stage 4 chronic kidney disease, or unspecified chronic kidney disease (CMS/HCC) Lumbar spondylosis Myelopathy concurrent with and due to spinal stenosis of cervical region (CMS/HCC) Nephrotic syndrome Osteoarthritis of spine with radiculopathy, lumbar region Wound dehiscence Family History Problem Relation Name Age of Onset Coronary artery disease Father Other (CABG) Father Heart attack Father Coronary artery disease Brother Heart attack Brother Other (CABG) Brother Heart attack Paternal Grandfather Social History Tobacco Use Smoking status: Former Types: Cigarettes Substance Use Topics Alcohol use: Yes Comment: occasional Drug use: Never HPI Omer Santos is seen in follow up. He is a 72-year-old man, who was admitted with myq-FL-ghebrxf elevation myocardial infarction in january 2018. He underwent cardiac catheterization and stenting of the ramus. He has prior history of right carotid surgery in the past. Due to significant dyspnea on exertion, I proceeded with cardiac catheterization on 09/12/2018 and this showed similar findings as to the angiography done in January 2018. His echocardiogram was also nonrevealing. I had added isosorbide mononitrate 30 mg daily. His symptoms subsided. I then increased it to 60 mg daily for better blood pressure control. He previously was taking metoprolol and stopped it. At a prior visit I stopped isosorbide mononitrate since he wanted to take Viagra. He was admitted to [facility] in 06/2020 with renal dysfunction and acute diastolic HF. Recently he had worsening of renal function. At 1 point in time he was started on spironolactone 50 mg daily but this was stopped. At last visit of 05/05/2021 I increased carvedilol 6.25 mg to 1.5 tablets twice daily. He reports that this has improved his blood pressure control and his blood pressure has been well controlled at home. Previously his PCP prescribed Actos due to his hemoglobin A1c being 7.1%. He was worried about Actos and side effects. I advised against it and he never took it. He had neck surgery and has a neck brace and is recovering. He otherwise feels good. He has no chest pain or shortness of breath on exertion. Review of Systems All other systems reviewed and are negative. Objective Visit Vitals BP 130/62 Pulse 72 Ht 1.702 m (5' 7 ) Wt 73.9 kg (163 lb) SpO2 97% BMI 25.53 kg/m??? Smoking Status Former BSA 1.87 m??? Physical Exam Constitutional: Appearance: He is well-developed. He is not ill-appearing. HENT: Head: Normocephalic and atraumatic. Nose: Nose normal. Eyes: General: No scleral icterus. Pupils: Pupils are equal, round, and reactive to light. Neck: Thyroid: No thyromegaly. Vascular: No JVD. Carotid bruit: left. Cardiovascular: Rate and Rhythm: Normal rate and regular rhythm. Pulses: Radial pulses are 2+ on the right side and 2+ on the left side. Heart sounds: Murmur heard. Systolic (RUSB) murmur is present with a grade of 1/6. No friction rub. No gallop. Pulmonary: Effort: Pulmonary effort is normal. No respiratory distress. Breath sounds: Normal breath sounds. No wheezing or rales. Chest: Chest wal (more content not included)...[facility] 02-11-2023 Evaluation note* Encounter Date Diagnosis Assessment Notes Treatment Notes Treatment Clinical Notes Feb, Anemia of renal disease (ICD-10 - D63.1) [facility] [employer] [facility] Other 10-30-2023 NoteDischarge Summary Date of Admission: 01/31/23 Date of Discharge: 02/01/23 Admitting Physician: Gabe Harris MD Consults: Hospitalist, PT, OT, Social work Procedure Note: C3-C6 ACDF. See separately dictated operative report HOSPITAL COURSE: The patient was admitted on the above date had the above procedure performed. Patient had no complications during surgery. The patient was then transferred to the PACU and to a regular nursing floor for postop care. The patient's pain was initially controlled with IV medications but we were able totransition to oral pain medications soon after arrival to the floor. Their pain remained under good control through their hospital stay. Patient had improvement of their radicular symptoms and gait instability. MICKI drain output remained somewhat high and thus he was discharged home with the drain inplace. The patient was then discharged to home on the above date. PHYSICAL EXAMINATION ON DISCHARGE: The patient was afebrile, stable. Dressing was clean, dry and intact. 5/5 strength in bilateral upper extremities. Neurologically intact. DISCHARGE INSTRUCTIONS: Patient can resume regular diet. Resume home medications except for NSAIDs or blood thinners. Resume blood thinners POD#5. Okay to resume NSAIDs 6 months after surgery. Take previously prescribed narcotic pain medications as directed. Change the dressing daily until the incision is clean and dry and then leave open to air. Okay to take a shower without submerging the incision. Wear the brace at all times when up and ambulating x 6 weeks. Limit any heavy lifting, bending or twisting until first postoperative visit. Patient to follow up 6 weeks post discharge as scheduled. CONDITION AT DISCHARGE: Stable DISPOSITION: Home Gabe Harris MD Electronically signed by Gabe aHrris MD, Jr 02/04/23 05:55 [facility] 02-01-2023 NoteC-spine radiographs on 02/01/2023 Clinical History: Postoperative evaluation Comparison: C-spine radiographs on 01/31/2023 Findings: 3 views of the cervical spine were obtained. Postoperative changes compatible with anterior and interbody fusion at C3-C4, C4-C5 and C5-C6 in satisfactory alignment. Prominent prevertebral soft tissue similar to the prior study. There is a drain in place. Final Dictated by: Delfino Mg MD Dictated DT/TM: 02/01/2023 2:17 pm Signed by: Delfino Mg MD Signed (Electronic Signature): 02/01/2023 2:20 pm (If Report Is Signed, Electronically Signed in Other Vendor System)[facility] HospitalComment on above:Order Comment: [id number] sent for at 0632hrs 02-01-2023 NoteDATE OF PROCEDURE: 01/31/2023 PREOPERATIVE DIAGNOSES: 1. C3-C6 cervical spinal stenosis 2. Cervical Myelopathy 3. Cervical Radiculopathy 4. Degenerative Disc Disease C3-7 POSTOPERATIVE DIAGNOSES: 1. C3-C6 cervical spinal stenosis 2. Cervical Myelopathy 3. Cervical Radiculopathy 4. Degenerative Disc Disease C3-7 OPERATION PERFORMED: 1. C3-C4, C4-5, and C5-6, anterior cervical discectomy and fusion with decompression and stabilization of spinal cord and nerve roots. 2. C3-C4, C4-5, and C5-6, structural allograft Bio AVS graft x3 with demineralized bone matrix, 6-mm, 6-mm, and 6-mm height respectively 3. C3 through C6 anterior cervical plate, [place] with 16-mm fixed angle and variable screws, [facility] SURGEON: Gabe Harris M.D. MANAGER DISH: Lizette Osorio PA-C. Lizette Osorio PA-C, assisted throughout the procedure with positioning, draping, retraction, wound closure, and dressing application ANESTHESIA: General. INDICATIONS: This is a 72-year-old male with history of severe progressively worsening gait instability as well as significant difficulty with upper extremity dexterity and hand function with associated numbness and tingling radiating down bilateral upper extremities. Imaging revealed evidence of severe spinal cord stenosis from C3-C6 at which point we had a discussion regarding risk and benefitsof surgical treatmnt vs conservative mgmt. Given the continued progression of his symptoms and worsening function, he made the decision to proceed with surgical treatment in the form of anterior cervical discectomy and fusion. Patient understood the indications for the surgery as well as risks, benefits, and alternatives. These risks included, but are not limited to, paralysis, infection, dural tear, hematoma, nerve root injury, nonunion, permanent speech and swallowing disturbances, DVT/PE, stroke, PA, etc. All questions were answered and informed consent was obtained. OPERATIVE PROCEDURE: The patient was taken to the operating room by the Anesthesiology Service and had satisfactory general anesthesia. A first-generation cephalosporin was given within 1 hour of surgical incision, 2 g of cefazolin was given IV. Venous thromboembolic prophylaxis was performed with sequential devices. The patient was then positioned supine on a standard OR table, occiput in a doughnut. Neck extended well within the means of what can be tolerated neurologically baseline neuromonitoring was optained prior to positioning and remained stable after this was done. The anterior neck was then prepped and draped entirely in the usual sterile fashion. Before incision, a formal time-out was taken per protocol. We next took a right- sided Sanchez-Shirley approach to the anterior cervical spine. A horizontal incision was made in line with the skin crease. The platysma was divided in line with this incision. Blunt dissection was then proceeded medial to the sternocleidomastoid and carotid sheath. The carotid artery was palpated and retracted laterally. The anterior cervical spine was visualized and a localization needle was placed in the disc space and intraoperative radiographic localization of level was confirmed. We then elevated the longus colli from C3 through C6. Satisfied with the exposure and confirmation of level, we placed the self- retaining retractor at C3-C4. We then began complete diskectomy with a variety of curettes from uncus to uncus. Bilateral endplate decortications were then performed with a high-speed jodi going back to the PLL. The PLL was then resected, incised in the midline going to neural foramina bilaterally. This was done until we could see the exiting portion of the C4 nerve roots. This thereby totally decompressed the neural elements. Satisfied with this, we then achieved hemostasis and sized the interspace. A size 6 mm graft appeared appropriate. The graft was then packed with DBM and impacted into position with an excellenttight fit. Satisfied with this, we then repositioned the self-retaining retractor at C4-C5 and repeated the same procedure. Once again, complete diskectomy was performed with a variety of curettes from uncus touncus. Bilateral endplate decortications were performed with a high-speed jodi going back to the PLL. The PLL was then resected, incised in the midline going to neural foramina bilaterally. This was done until we could see the exiting portion of the C5 nerve roots. This thereby totally decompressedour neural elements. Satisfied with this, we then achieved hemostasis and sized the interspace. A size 6 mm graft was appeared appropriate. The graft was then packed with DBM and impacted into position with an excellent tight fit. Satisfied with this, we then repositioned the self-retaining retractor at C5-C6 and repeated the same procedure. Once again, complete diskectomy was performed with a variety of curettes from uncus touncus. Bilateral endplate decortications were performed with a high-speed jodi going back to th (more content not included)...[facility] note* Encounter Date Diagnosis Assessment Notes Treatment Notes Treatment Clinical Notes Jan, CKD (chronic kidney disease) stage 4, GFR 15-29 ml/min (ICD-10 - N18.4) He has a longstanding CKD due to the DM and HTN with baseline creatinine 2.4-2.6 mg/dL. I discussed with him the importance of good DM control to surround the progression of CKD. He has unremarkable Kidneys on renal US. He has no absolute contraindication for cervical spine surgery from renal standpoint. Explained to him possible risk of SIRI due to the perioperative hemodynamic changes. He understood and verbalized information. Jan, Anemia of renal dise ase (ICD-10 - D63.1) Hemoglobin is below the goal but has adequate iron stores. We will Continue Procrit 20,000 unit every 2 weeks. Jan, Deuce hy kid w cr kid I-IV (ICD-10 - I12.9) Blood pressure is controlled. He appears to be euvolemic. Continue Lasix 40 mg daily. Continue current dose of the carvedilol and amlodipine. Jan, Diabetes mellitus wi th chronic kidney disease (ICD-10 - E11.22) His blood sugars are acceptable range. He is not a suitable candidate for SGL 2 inhibitors including Farxiga, Invokana and Jardiance. Also will avoid currently due to the history of hyperkalemia. Continue losartan for renal protection. Jan, Hyperkalemia (ICD-10 - E87.5) He has hyperkalemia due to the CKD and losartan. Stop Losartan Jan, Secondary hyperparathyroidism (ICD-10 - N25.81) His PTH, calcium and phosphorus were within the goal but he had vitamin D deficiency. Continue Vit D 2000 units Daily Jan, Proteinuria (ICD-10 - R80.9) He has a nephrotic range proteinuria likely due to diabetic nephropathy. He has unremarkable work-up for paraproteinemia. Continue home losartan. Jan, Microscopic hematuri a (ICD-10 - R31.29) He has longstanding microscope hematuria and was seen by the urology in the past. He had a cystoscopy and reported was unremarkable. He does not want to have urology work-up for now. He will let me know if he changes mind. Jan, Hypomagnesemia (ICD- 10 - E83.42) He had hypomagnesemia possibly due to the renal magnesium wasting. Continue oral magnesium [facility] Other 10-12-2023 Evaluation note* Encounter Date Diagnosis Assessment Notes Treatment Notes Treatment Clinical Notes Jan, CKD (chronic kidney disease) stage 4, GFR 15-29 ml/min (ICD-10 - N18.4) He has a longstanding CKD due to the DM and HTN with baseline creatinine 2.4-2.6 mg/dL. I discussed with him the importance of good DM control to surround the progression of CKD. He has unremarkable Kidneys on renal US. Jan, Anemia of renal dise ase (ICD-10 - D63.1) Hemoglobin is below the goal but has adequate iron stores. We will change Procrit 20,000 unit every 2 weeks. Jan, Deuce hy kid w cr kid I-IV (ICD-10 - I12.9) Blood pressure is controlled. He appears to be hypervolemic. I have stopped the losartan and increased Lasix 40 mg daily. Continue current dose of the carvedilol and amlodipine. Jan, Diabetes mellitus wi th chronic kidney disease (ICD-10 - E11.22) His blood sugars are acceptable range. He is not a suitable candidate for SGL 2 inhibitors including Farxiga, Invokana and Jardiance. Also will avoid currently due to the history of hyperkalemia. Continue losartan for renal protection. Jan, Hyperkalemia (ICD-10 - E87.5) He has hyperkalemia due to the CKD and losartan. Stop Losartan Jan, Secondary hyperparathyroidism (ICD-10 - N25.81) His PTH, calcium and phosphorus were within the goal but he had vitamin D deficiency. Continue Vit D 2000 units Daily Jan, Proteinuria (ICD-10 - R80.9) He has a nephrotic range proteinuria likely due to diabetic nephropathy. He has unremarkable work-up for paraproteinemia. Continue home losartan. Jan, Microscopic hematuri a (ICD-10 - R31.29) He has longstanding microscope hematuria and was seen by the urology in the past. He had a cystoscopy and reported was unremarkable. He does not want to have urology work-up for now. He will let me know if he changes mind. Jan, Hypomagnesemia (ICD- 10 - E83.42) He had hypomagnesemia possibly due to the renal magnesium wasting. Continue oral magnesium [facility] Other 08-31-2023 Evaluation note* Encounter Date Diagnosis Assessment Notes Treatment Notes Treatment Clinical Notes Nov, CKD (chronic kidney disease) stage 4, GFR 15-29 ml/min (ICD-10 - N18.4) He has a longstanding CKD due to the DM and HTN with baseline creatinine 2.2-2.4 mg/dL. His serum creatinine 3.0 mg/dL above his baseline either due to the progression of his CKD or hemodynamic changes related to relative hypotension. I discussed with him the importance of good DM control to surround the progression of CKD. He has unremarkable Kidneys on renal US. Nov, Anemia of renal dise ase (ICD-10 - D63.1) Hemoglobin is below the goal but has adequate iron stores. We will change Procrit 20,000 unit every 2 weeks. Nov, Deuce hy kid w cr kid I-IV (ICD-10 - I12.9) Blood pressure is relatively low. He appears to be euvolemic. Continue low-dose of the Lasix. Continue current dose of the carvedilol and amlodipine. 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 He is not a suitable candidate for SGL 2 inhibitors including Farxiga, Invokana and Jardiance. Also will avoid currently due to the history of hyperkalemia. Continue losartan for renal protection. Nov, Hyperkalemia (ICD-10 - E87.5) He has hyperkalemia due to the CKD and losartan. Advised to continue low potassium diet. Continue low-dose of Lasix Nov, Secondary hyperparathyroidism (ICD-10 - N25.81) His PTH, calcium and phosphorus were within the goal but he had vitamin D deficiency. Continue Vit D 2000 units Daily Nov, Proteinuria (ICD-10 - R80.9) He has a nephrotic range proteinuria likely due to diabetic nephropathy. He has unremarkable work-up for paraproteinemia. Continue home losartan. Nov, Microscopic hematuri a (ICD-10 - R31.29) He has longstanding microscope hematuria and was seen by the urology in the past. He had a cystoscopy and reported was unremarkable. He does not want to have urology work-up for now. He will let me know if he changes mind. Nov, Hypomagnesemia (ICD- 10 - E83.42) He had hypomagnesemia possibly due to the renal magnesium wasting. Continue oral magnesium [facility] Other 08-10-2023 Evaluation note* Encounter Date Diagnosis Assessment Notes Treatment Notes Treatment Clinical Notes Nov, CKD (chronic kidney disease) stage 4, GFR 15-29 ml/min (ICD-10 - N18.4) He has a longstanding CKD due to the DM and HTN with baseline creatinine 2.2-2.4 mg/dL. I discussed with him the importance of good DM control to surround the progression of CKD. He has unremarkable Kidneys on renal US. Nov, Anemia of renal dise ase (ICD-10 - D63.1) Hemoglobin is below the goal but has adequate iron stores. We will continue Procrit 20,000 unit every 3 weeks. Nov, Deuce hy kid w cr kid I-IV (ICD-10 - I12.9) Blood pressure is controlled. He appears to be euvolemic. Continue low-dose of the Lasix. 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 He is not a suitable candidate for SGL 2 inhibitors including Farxiga, Invokana and Jardiance. Also will avoid currently due to the history of hyperkalemia. Continue losartan for renal protection. Advised him he can discuss with the PCP about the glipizide dose it can be reduced if his A1c is below 6.5% Nov, Hyperkalemia (ICD-10 - E87.5) He has hyperkalemia due to the CKD and losartan. Advised to continue low potassium diet. Continue low-dose of Lasix Nov, Secondary hyperparathyroidism (ICD-10 - N25.81) His PTH, calcium and phosphorus were within the goal but he had vitamin D deficiency. Continue Vit D 2000 units Daily Nov, Proteinuria (ICD-10 - R80.9) He has a nephrotic range proteinuria likely due to diabetic nephropathy. He has unremarkable work-up for paraproteinemia. Continue home losartan. Nov, Microscopic hematuri a (ICD-10 - R31.29) He has longstanding microscope hematuria and was seen by the urology in the past. He had a cystoscopy and reported was unremarkable. He does not want to have urology work-up for now. He will let me know if he changes mind. Nov, Hypomagnesemia (ICD- 10 - E83.42) He had hypomagnesemia possibly due to the renal magnesium wasting. Continue oral magnesium [facility] Other 07-20-2023 Evaluation note* Encounter Date Diagnosis Assessment Notes Treatment Notes Treatment Clinical Notes Oct, CKD (chronic kidney disease) stage 4, GFR 15-29 ml/min (ICD-10 - N18.4) He has a longstanding CKD due to the DM and HTN with baseline creatinine 2.2-2.4 mg/dL. I discussed with him the importance of good DM control to surround the progression of CKD. He has unremarkable Kidneys on renal US. Oct, Anemia of renal dise ase (ICD-10 - D63.1) Hemoglobin is below the goal but has adequate iron stores. We will continue Procrit 20,000 unit every 3 weeks. Oct, Deuce hy kid w cr kid I-IV (ICD-10 - I12.9) Blood pressure is controlled. He appears to be euvolemic. Continue low-dose of the Lasix. 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 He is not a suitable candidate for SGL 2 inhibitors including Farxiga, Invokana and Jardiance. Also will avoid currently due to the history of hyperkalemia. Continue losartan for renal protection. Advised him he can discuss with the PCP about the glipizide dose it can be reduced if his A1c is below 6.5% Oct, Hyperkalemia (ICD-10 - E87.5) He had hyperkalemia due to the CKD and losartan. His potassium is back to normal with diet restriction. Advised to continue low potassium diet. I have also prescribed a low-dose of Lasix Oct, Secondary hyperparathyroidism (ICD-10 - N25.81) His PTH, calcium and phosphorus were within the goal but he had vitamin D deficiency. Continue Vit D 2000 units Daily Oct, Proteinuria (ICD-10 - R80.9) He has a nephrotic range proteinuria likely due to diabetic nephropathy. He has unremarkable work-up for paraproteinemia. Continue home losartan. Oct, Microscopic hematuri a (ICD-10 - R31.29) He has longstanding microscope hematuria and was seen by the urology in the past. He had a cystoscopy and reported was unremarkable. He does not want to have urology work-up for now. He will let me know if he changes mind. Oct, Hypomagnesemia (ICD- 10 - E83.42) He had hypomagnesemia possibly due to the renal magnesium wasting. Continue oral magnesium [facility] Other 06-05-2023 Evaluation note* Encounter Date Diagnosis Assessment Notes Treatment Notes Treatment Clinical Notes Sep, Deuce hy kid w cr kid I-IV (ICD-10 - I12.9) Blood pressure is controlled. He appears to be hypervolemic. I have prescribed a low-dose of the Lasix. Continue current dose of the losartan, carvedilol and amlodipine Sep, Chronic kidney disea se, stage 3b (ICD-10 - N18.32) He has a longstanding CKD due to the DM and HTN with baseline creatinine 1.7 to 2 mg/dL. I discussed with him the importance of good DM control to surround the progression of CKD. He has unremarkable Kidneys on renal US. 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 He was not able to afford SGLT2 inhibitors including Farxiga due to the high cost.. Continue losartan for renal protection. Sep, Anemia of renal dise ase (ICD-10 - D63.1) Hemoglobin is below the goal. We will continue Procrit 20,000 unit every 4 weeks. Sep, Hyperkalemia (ICD-10 - E87.5) He had hyperkalemia due to the CKD and losartan. His potassium is back to normal with diet restriction. Advised to continue low potassium diet. I have also prescribed a low-dose of Lasix Sep, Secondary hyperparathyroidism (ICD-10 - N25.81) His PTH, calcium and phosphorus are within the goal. Vitamin D is still low. Continue Vit D 2000 units Daily Sep, Proteinuria (ICD-10 - R80.9) He has a nephrotic range proteinuria likely due to diabetic nephropathy. He has unremarkable work-up for paraproteinemia. Continue home losartan. Sep, Microscopic hematuri a (ICD-10 - R31.29) He has longstanding microscope hematuria and was seen by the urology in the past. He had a cystoscopy and reported was unremarkable. He does not want to have urology work-up for now. He will let me know if he changes mind. Sep, Hypomagnesemia (ICD- 10 - E83.42) He has hypomagnesemia possibly due to the renal magnesium wasting. Continue oral magnesium [facility] Other 05-09-2023 Evaluation note* Encounter Date Diagnosis Assessment Notes Treatment Notes Treatment Clinical Notes August, Chronic kidney disea se, stage 3b (ICD-10 - N18.32) He has a longstanding CKD due to the DM and HTN with baseline creatinine 1.7 to 2 mg/dL.SCr is 2.4 mg/dl and GFR 27 ml/min which is higher than baseline. this might be from worsening anemia and low BP. Will decrease norvasc to 5 mg PO. continue the same other BP meds I discussed with him the importance of good DM control to attenuate progression of CKD.DM seems well controlled. Only on Glipizide now. He has unremarkable Kidneys on renal US. Will re check RFP in 2 weeks August, Anemia of renal dise ase (ICD-10 - D63.1) Hemoglobin is below the target. Iron saturation is adequate 23% but dropped from 30%. Patient is taking iron supplement. I asked the patient to increase iron supplement to BID. Continue VB12 supplement .We will give the patient 1 injection of Procrit 20,000 today and reschedule him in 2 weeks to receive another injection Will check VB12, iron storage and folate levels August, Deuce hy kid w cr kid I-IV (ICD-10 - I12.9) Blood pressure is slightly low. Will reduce Norvasc to 5 mg. continue same other BP meds He appears to be euvolemic. 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 only on Glipizide . August, Hyperkalemia (ICD-10 - E87.5) Advised to continue low potassium diet. Potassium slightly high August, Secondary hyperparathyroidism (ICD-10 - N25.81) Continue Vit D 2000 units Daily Will check Phos, Ca and iPTH next visit August, Proteinuria (ICD-10 - R80.9) He has a nephrotic range proteinuria likely due to diabetic nephropathy. He has unremarkable work-up for paraproteinemia. Continue home losartan. August, Microscopic hematuri a (ICD-10 - R31.29) He has longstanding microscope hematuria and was seen by the urology in the past. He had a cystoscopy and reported was unremarkable. He does not want to have urology work-up for now. He will let me know if he changes mind. August, Hypomagnesemia (ICD- 10 - E83.42) This has improved with supplement. I will continue same supplement improve we will supplement [facility] Other 04-20-2023 NotePROCEDURE: VL DUP LOWER EXTREMITY VENOUS BILATERAL CLINICAL INFORMATION: Bilateral leg swelling TECHNIQUE: High-resolution duplex ultrasound with spectral analysis of the bilateral lower extremities was performed. The common femoral, femoral, popliteal and calf vein segments were studied to theankles. COMPARISON: Bilateral lower extremity venous duplex ultrasound 07/23/2022 FINDINGS: There is normal compressibility with no evidence of thrombus. Flow study shows normal color flow, augmentation and phasic response. IMPRESSION: No evidence of deep venous thrombosis in either lower extremity. This report has been created using voice recognition software. It may contain minor errors which are inherent in voice recognition technology. Final report electronically signed by Dr. Jose R Bianchi on 07/26/2022 6:35 PM Interpreted by: Jose R Bianchi MD Signed by: Jose R Bianchi MD 07/26/22 [facility] NotePROCEDURE: VL DUP LOWER EXTREMITY VENOUS BILATERAL CLINICAL INFORMATION: Bilateral leg swelling TECHNIQUE: High-resolution duplex ultrasound with spectral analysis of the bilateral lower extremities was performed. The common femoral, femoral, popliteal and calf vein segments were studied to theankles. COMPARISON: Bilateral lower extremity venous duplex ultrasound 07/23/2022 FINDINGS: There is normal compressibility with no evidence of thrombus. Flow study shows normal color flow, augmentation and phasic response. [facility] RIS [id number] History of Present illness Narrative* Megan Meza - 07/26/2022 4:37 PM EDT Hubert as he likes to be called is to a [employer] . She and he appreciate prayer and this spiritual care community. His stated that they are excited about him being discharged to go home today after his test. We had a magnolia conversation about mariaa, family and health. 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 Prayer is offered and is accepted. They may be going home today. 07/26/22 1637 Encounter Summary Encounter Overview/Reason Spiritual/Emotional Needs Service Provided For: Patient and family together Referral/Consult From: [facility] Spouse Last Encounter 07/26/22 Complexity of Encounter Moderate Encounter Type Follow up Spiritual/Emotional needs Type Spiritual Support * Kylie Acuna MD - 07/26/2022 3:07 PM EDT INTERNAL MEDICINE Progress Note 07/26/2022 3:07 PM Subjective: Admit Date: 07/19/2022 PCP: Ruben Luo MD Interval History: C/o: increased swelling in the legs Rt > left No cough, no CP, no SOB sitting up in beds denies BERRIOS, no fever Objective: Vitals: BP (!) 131/59 Pulse 72 Temp 98 F (36.7 C) (Oral) Resp 16 Ht 5' 7 (1.702 m) Wt 169 lb (76.7 kg) SpO2 98% BMI 26.47 kg/m General appearance: alert, O x3 HEENT: atraumatic Neck: no adenopathy, no carotid bruit, and no JVD Lungs: clear to auscultation bilaterally Heart: S1, S2 normal Abdomen: soft, non-tender; bowel sounds normal; no masses, no organomegaly Extremities: edema legs rt > Left Neurologic: alert, oriented x3, moves all 4 extremities Back: drains x2 in situ-off suction Medications: Scheduled Meds: glipiZIDE 5 mg Oral QAM AC doxazosin 8 mg Oral Daily insulin lispro 0-16 Units SubCUTAneous TID WC insulin lispro 0-4 Units SubCUTAneous Nightly alogliptin 6.25 mg Oral Daily ferrous sulfate 325 mg Oral BID WC amLODIPine 10 mg Oral Daily sodium chloride flush 5-40 mL IntraVENous 2 times per day polyethylene glycol 17 g Oral Daily bisacodyl 5 mg Oral Daily sennosides-docusate sodium 1 tablet Oral BID losartan 50 mg Oral Daily atorvastatin 40 mg Oral QPM magnesium oxide 400 mg Oral Daily carvedilol 12.5 mg Oral BID WC Continuous Infusions: sodium chloride sodium chloride dextrose Lab Results: CBC: Recent Labs 07/24/22 0436 07/25/22 0439 07/26/22 0455 WBC 4.6* 3.9* 4.3* HGB 7.4* 7.6* 7.4* PLT 132 148 147 BMP: Recent Labs 07/24/22 0436 07/24/22 1444 07/25/22 0439 07/26/22 0455 NA 137 -- 135 134* K 5.6* 5.0 5.4* 4.8 CL 107 -- 104 102 CO2 18* -- 19* 19* BUN 41* -- 55* 65* CREATININE 2.8* -- 2.5* 2.4* GLUCOSE 188* -- 287* 205* HgBA1c: Lab Results Component Value Date/Time LABA1C 6.6 07/20/2022 05:03 AM IRON: Lab Results Component Value Date/Time IRON 58 07/19/2022 12:55 PM FERRITIN: Lab Results Component Value Date/Time FERRITIN 105 07/19/2022 12:55 PM VL DUP LOWER EXTREMITY VENOUS BILATERAL [[id number]] Resulted: 07/23/221718 Updated: 04/17/23 1721 Narrative: FINDINGS: There is normal color flow, spectral analysis and compressibility of the common femoral vein, superficial femoral vein and popliteal vein bilaterally . There is normal color flow and compressibility in the posterior tibial veins, anterior tibial veinsand peroneal veins. Impression: No evidence of a DVT. CT HEAD WO CONTRAST [[id number]] Resulted: 07/23/22 132 Updated: 07/23/22 132 Narrative: There is no hemorrhage. There are no intra-or extra-axial collections. There is no hydrocephalus, midline shift or mass effect. The ann-white matter differentiation is preserved. There is mucosal thickening in the ethmoid air cells bilaterally. There is some mild mucosal thickening in both maxillary sinuses. There is no suspicious calvarial abnormality. Impression: No evidence of an acute process. Assessment and Plan: L2-S1 degenerative disc disease and facet arthropathy with stenosis, neuroforaminal stenosis, and radiculopathy Prior L2-S1 decompression with resulting chronic right foot drop L2-S1 REVISION DECOMPRESSION WITH L2-PELVIS FUSION 07/20/22 DM 2, BS exacerbated by decadron, cont SSI, start glipizide CKD stage III Hyperkalemia - better HTN Anemia of chronic dx Acute blood loss anemia post op, will transfuse to keep Hb>7 AMS, negative CT head, Surjit legs swelling Rpt venous doppler legs plan Cont accuchecks with SSI Glipizide Avoid nephrotoxics, Cont amlodipine, BB, cardura Kylie Acuna MD, MD * DIANN Leblanc - 07/26/2022 8:38 AM EDT [facility] OCCUPATIONAL THERAPY MISSED TREATMENT NOTE [facility] ONC MED 5K 5K-26/026-A Date: 07/26/2022 Patient Name: Omer Santos CSN: [id number] : 1950 (72 y.o.) Gender: male Referring Practitioner: Sharon Ellison PA-C Diagnosis: lumbar spondylosis REASON FOR MISSED TREATMENT: Patient Refused. Patient seated in bedside chair upon arrival with present throughout. Patient immediately declined session noting he has taken shower, been up earlyand wants to relax at this time. Education reviewed for spinal precautions as patient does not havelumbar corset on with expressing the need to reiterate the importance of wearing corset. Patient continues to not wear at this time. Review of spinal precautions as well as LHAE with patient stating he will have assist with dressing and looking forward to golfing in September. Possible d/c to home this date however will check back as time allows. * Sharon Ellison PA-C - 07/26/2022 6:37 AM EDT Department of Orthopedic Surgery Spine Service Attending Progress Note Subjective: Pod#6 pt doing well. Back pain controlled at rest. No leg pain. Ambulated with PT yesterday. Hgb 7.4. BG trending down. Vitals VITALS: BP (!) 178/76 Pulse 68 Temp 97.7 F (36.5 C) (Oral) Resp 18 Ht 5' 7 (1.702 m) Wt 169 lb (76.7 kg) SpO2 99% BMI 26.47 kg/m 24HR INTAKE/OUTPUT: No intake or output data in the 24 hours ending 07/26/22 0637 URINARY CATHETER OUTPUT (Hernandez): [REMOVED] Urinary Catheter 07/20/22-Output (mL): 500 mL DRAIN/TUBE OUTPUT: [REMOVED] Closed/Suction Drain Inferior;Left Back Accordion- Output (ml): 35 ml Closed/Suction Drain Inferior;Right Back Accordion-Output (ml): 30 ml Drains 70+60 over 24 h PHYSICAL EXAM: Orientation: alert and oriented to person, place and time Incision: dressing in place, some saturation, intact. Hemovac drains in place bilaterally. Lower Extremity Motor : quadriceps, extensor hallucis longus, dorsiflexion, plantarflexion 5/5 bilaterally except 2/5 bilateral TA Lower Extremity Sensory: Intact L1-S1 except chronic numbness in b/l feet LABS: HgB: Lab Results Component Value Date/Time HGB 7.4 07/26/2022 04:55 AM ASSESSMENT AND PLAN: Post operative day 6 status post L2-S1 revision decompression and L2-pelvis fusion 1: Monitor labs and drain output 2: Activity Level: as tolerated with back brace on 3: Pain Control: okay. Continue to hold narcotics. Tylenol only. 4: Discharge Planning: home today if stable from IM standpoint Sharon Ellison PA-C * Juan Bermeo RN - 07/26/2022 4:59 AM EDT Patient is in bed vitals within normal limits no pain noted, no change in condition, is at bedside with patient, treatment done to drain sites to back, area washed with normal saline and coveredwith dry dressing, procedure tolerated well. will continue to monitor. * Juan Bermeo RN - 07/26/2022 4:59 AM EDT Patients blood pressure is noted to noted to be elevated at 178/76, prn hydralazine 10 mg given forincreased blood pressure per physician orders, will continue to monitor * Justa Tobias RN - 07/25/2022 6:07 PM EDT Dressing to back incision and drain sites changed due to saturation with serosang. Drainage. Incision well approximated without drainage. * Kylie Acuna MD - 07/25/2022 2:32 PM EDT INTERNAL MEDICINE Progress Note 07/25/2022 2:32 PM Subjective: Admit Date: 07/19/2022 PCP: Ruben Luo MD Interval History: Remains Alert, sitting up in beds Tolerated B/fast, denies BERRIOS, no fever Objective: Vitals: BP (!) 175/81 Pulse 66 Temp 98.4 F (36.9 C) (Oral) Resp 20 Ht 5' 7 (1.702 m) Wt 169 lb (76.7 kg) SpO2 96% BMI 26.47 kg/m General appearance: alert, O x3 HEENT: atraumatic Neck: no adenopathy, no carotid bruit, and no JVD Lungs: clear to auscultation bilaterally Heart: S1, S2 normal Abdomen: soft, non-tender; bowel sounds normal; no masses, no organomegaly Extremities: swollen arms, doppler both arms negative for DVT Neurologic: alert, oriented x3, moves all 4 extremities Back: drains x2 in situ-off suction Medications: Scheduled Meds: insulin lispro 0-16 Units SubCUTAneous TID WC insulin lispro 0-4 Units SubCUTAneous Nightly alogliptin 6.25 mg Oral Daily ferrous sulfate 325 mg Oral BID WC amLODIPine 10 mg Oral Daily sodium chloride flush 5-40 mL IntraVENous 2 times per day polyethylene glycol 17 g Oral Daily bisacodyl 5 mg Oral Daily sennosides-docusate sodium 1 tablet Oral BID doxazosin 4 mg Oral QAM losartan 50 mg Oral Daily atorvastatin 40 mg Oral QPM magnesium oxide 400 mg Oral Daily carvedilol 12.5 mg Oral BID WC Continuous Infusions: sodium chloride 50 mL/hr at 07/24/22 0208 sodium chloride sodium chloride dextrose Lab Results: CBC: Recent Labs 07/23/22 0741 07/24/22 0436 07/25/22 0439 WBC 6.7 4.6* 3.9* HGB 7.6* 7.4* 7.6* PLT 128* 132 148 BMP: Recent Labs 07/23/22 0741 07/24/22 0436 07/24/22 1444 07/25/22 0439 NA 141 137 -- 135 K 4.8 5.6* 5.0 5.4* CL 111 107 -- 104 CO2 19* 18* -- 19* BUN 30* 41* -- 55* CREATININE 2.8* 2.8* -- 2.5* GLUCOSE 113* 188* -- 287* HgBA1c: Lab Results Component Value Date/Time LABA1C 6.6 07/20/2022 05:03 AM IRON: Lab Results Component Value Date/Time IRON 58 07/19/2022 12:55 PM FERRITIN: Lab Results Component Value Date/Time FERRITIN 105 07/19/2022 12:55 PM VL DUP LOWER EXTREMITY VENOUS BILATERAL [[id number]] Resulted: 07/23/22 171 Updated: 07/23/22 172 Narrative: FINDINGS: There is normal color flow, spectral analysis and compressibility of the common femoral vein, superficial femoral vein and popliteal vein bilaterally . There is normal color flow and compressibility in the posterior tibial veins, anterior tibial veinsand peroneal veins. Impression: No evidence of a DVT. CT HEAD WO CONTRAST [[id number]] Resulted: 07/23/22 132 Updated: 07/23/22 132 Narrative: There is no hemorrhage. There are no intra-or extra-axial collections. There is no hydrocephalus, midline shift or mass effect. The ann-white matter differentiation is preserved. There is mucosal thickening in the ethmoid air cells bilaterally. There is some mild mucosal thickening in both maxillary sinuses. There is no suspicious calvarial abnormality. Impression: No evidence of an acute process. Assessment and Plan: L2-S1 degenerative disc disease and facet arthropathy with stenosis, neuroforaminal stenosis, and radiculopathy Prior L2-S1 decompression with resulting chronic right foot drop L2-S1 REVISION DECOMPRESSION WITH L2-PELVIS FUSION 07/20/22 DM 2, BS exacerbated by decadron, cont SSI, start glipizide CKD stage III Hyperkalemia - repeat lokelma x1, f/up K HTN Anemia of chronic dx Acute blood loss anemia post op, will transfuse to keep Hb>7 AMS, negative CT head, -improved mentation -limit narcotics and sedatives plan Cont accuchecks with SSI Start Glipizide Avoid nephrotoxics, Cont amlodipine, BB, cardura SCD Am lab Kylie Acuna MD, MD * Kylie Acuna MD - 07/25/2022 1:20 PM EDT Physician Progress Note PATIENT: OMER SANTOS [facility] #: [id number] : 1950 ADMIT DATE: 07/19/2022 9:24 AM DISCH DATE: RESPONDING PROVIDER #: Kylie Acuna MD QUERY TEXT: Pt admitted with L2-S1 DDD and stenosis s/p L2-S1 revision decompression and L2-pelvis fusion. Pt noted to have AMS and be more somnolent. If possible, please document in the progress notes and discharge summary if you are evaluating and / or treating any of the following: The medical record reflects the following: Risk Factors: s/p surgery, pain meds (Percocet) Clinical Indicators: RR called as patient had change in mental status and slurred speech, was disoriented to time, place and situation, CT head negative, patient more somnolent, pt had improvement in mentation Treatment: IVF, limit narcotics/sedatives Thank you! Greg Merino, LÁZARON,RN, CRCR RN Clinical Strap Maker Options provided: -- Drug-induced encephalopathy -- Toxic encephalopathy -- Metabolic encephalopathy -- Toxic metabolic encephalopathy -- Other - I will add my own diagnosis -- Disagree - Not applicable / Not valid -- Disagree - Clinically unable to determine / Unknown -- Refer to Clinical Documentation Reviewer PROVIDER RESPONSE TEXT: This patient has drug-induced encephalopathy. Query created by: Greg Merino on 07/25/2022 10:53 AM Electronically signed by: Kylie Acuna MD 07/25/2022 1:19 PM * Carlita Marmolejo, PT - 07/25/2022 10:37 AM EDT [facility] INPATIENT PHYSICAL THERAPY DAILY NOTE [facility] ONC MED 5K - 5K-26/026-A Time In: 0944 Time Out: 1022 Timed Code Treatment Minutes: 38 Minutes Minutes: 38 Date: 07/25/2022 Patient Name: Omer Santos, Gender: male : 1950 (72 y.o.) Referring Practitioner: Sharon Ellison PA-C Diagnosis: Lumbar spondylosis Additional Pertinent Hx: Pt is s/p L2-S1 revision decompression and L2-pelvis fusion, durotomy repair 07/[address] Velazco and Dr Gabe Harris. Code stroke 07/23, CT head negative. Prior Level of Function: Lives With: Spouse Type of Home: House Home Layout: One level Home Access: Stairs to enter without rails Entrance Stairs - Number of Steps: 3 Home Equipment: Walker, rolling Bathroom Shower/Tub: Walk-in shower Bathroom Toilet: Standard Bathroom Accessibility: Accessible ADL Assistance: Independent Homemaking Assistance: Independent Ambulation Assistance: Independent Transfer Assistance: Independent Active Reuse Technician: Yes Additional Comments: Information provided by due to pt lethargy; pt ambulates without AD. Restrictions/Precautions: Restrictions/Precautions: Fall Risk, General Precautions, Surgical Protocols Required Braces or Orthoses Spinal: Lumbar Corset Position Activity Restriction Spinal Precautions: No Bending, No Twisting, No Lifting Other position/activity restrictions: Chronic R foot drop, has AFO SUBJECTIVE: RN approved session, pt is seated EOB with present, agreeable to PT. Pt just had drains pulled, eager to DC home today. PAIN: denies Vitals: Vitals not assessed per clinical judgement, see nursing flowsheet OBJECTIVE: Bed Mobility: Not Tested Transfers: Sit to Stand: Contact Guard Assistance, X 1 Stand to Sit:Contact Guard Assistance, X 1 Ambulation: Contact Guard Assistance, X 1, with verbal cues Distance: 50 feet Surface: Level Tile Device:Rolling Walker Gait Deviations: Forward Flexed Posture, Decreased Step Length Bilaterally, Decreased Weight Shift Bilaterally, Decreased Gait Speed, Decreased Heel Strike Bilaterally, and Decreased Terminal Knee Extension Improved fluency and safety with walker, verbal cues for upright posture Stairs: Contact Guard Assistance, X 1, with verbal cues Number of Steps: 5 Height: 6 step with One Handrail Discussed multiple ways of doing stair negotiation as pt has 2 entrances; present for familyed Functional Outcome Measures: Not completed ASSESSMENT: Assessment: Patient progressing toward established goals. Extensive family ed with pt and , handout on back precautions reviewed, all questions answered. Activity Tolerance: Patient tolerance of treatment: good. Equipment Recommendations:Equipment Needed: No Discharge Recommendations: 24 hour assistance or supervision and Home with Home Health PT Plan: Current Treatment Recommendations: Strengthening, Positioning, Patient/Caregiver education & training, Safety education & training, Functional mobility training, Gait training, Home exercise program, Therapeutic activities, Stair training, Transfer training General Plan: (6x O) Patient Education Patient Education: Precautions/Restrictions, Family Education, Equipment Education, Transfers, Reviewed Prior Education, Gait, Car Transfers Goals: Patient Goals : to go home Short Term Goals Time Frame for Short Term Goals: by discharge Short Term Goal 1: Pt to transfer supine <--> sit SBA to enable pt to get in/out of bed. Short Term Goal 2: Pt to transfer sit <--> stand SBA for increased functional mobility. Short Term Goal 3: Pt to ambulate >200 feet with RW SBA for household ambulation. Short Term Goal 4: Pt to ascend/descend 3 steps without HR CGA for home entry. Assisted Goals Time Frame for Regional Forester Goals : NA due to short length of stay. Following session, patient left in safe position with all fall risk precautions in place. * Disha Borrego ASSISTANT CONTROLLER - 07/25/2022 9:58 AM EDT [facility] OCCUPATIONAL THERAPY MISSED TREATMENT NOTE [facility] ONC MED 5K 5K-26/026-A Date: 07/25/2022 Patient Name: Omer Santos CSN: [id number] : 1950 (72 y.o.) Gender: male Referring Practitioner: Sharon Ellison PA-C Diagnosis: lumbar spondylosis REASON FOR MISSED TREATMENT: RN requested to hold off on OT this morning to reattempt later this date Pt. To have drains removed this morning. Will reattempt as time allows. * Sharon Ellison PA-C - 07/25/2022 6:34 AM EDT Department of Orthopedic Surgery Spine Service Attending Progress Note Subjective: Pod#5 pt alert, doing well. Back pain controlled at rest. No leg pain. Ambulated with PT yesterday. Hgb 7.6. K+ 5.4. Vitals VITALS: BP (!) 160/72 Pulse 62 Temp 98.1 F (36.7 C) (Oral) Resp 18 Ht 5' 7 (1.702 m) Wt 169 lb (76.7 kg) SpO2 96% BMI 26.47 kg/m 24HR INTAKE/OUTPUT: Intake/Output Summary (Last 24 hours) at 07/25/2022 0634 Last data filed at 07/24/2022 2350 Gross per 24 hour Intake 920 ml Output 1130 ml Net -210 ml URINARY CATHETER OUTPUT (Hernandez): [REMOVED] Urinary Catheter 07/20/22-Output (mL): 500 mL DRAIN/TUBE OUTPUT: Closed/Suction Drain Inferior;Left Back Accordion-Output (ml): 35 ml Closed/Suction Drain Inferior;Right Back Accordion-Output (ml): 30 ml Drains 70+60 over 24 h PHYSICAL EXAM: Orientation: alert and oriented to person, place and time Incision: dressing in place, some saturation, intact. Hemovac drains in place bilaterally. Lower Extremity Motor : quadriceps, extensor hallucis longus, dorsiflexion, plantarflexion 5/5 bilaterally except 2/5 bilateral TA Lower Extremity Sensory: Intact L1-S1 except chronic numbness in b/l feet LABS: HgB: Lab Results Component Value Date/Time HGB 7.6 07/25/2022 04:39 AM ASSESSMENT AND PLAN: Post operative day 5 status post L2-S1 revision decompression and L2-pelvis fusion 1: Monitor labs and drain output 2: Activity Level: as tolerated with back brace on. Do steps with PT/OT today 3: Pain Control: okay. Continue to hold narcotics. Tylenol only. 4: Discharge Planning: home today pending steps with PT 5: Remove drains and apply new dressing Sharon Ellison PA-C Addendum: Pt staying tonight 2/2 uncontrolled blood glucose per IM. Last dose of decadron was todayand hopeful to improve. * Carlita Marmolejo, PT - 07/24/2022 2:59 PM EDT [facility] INPATIENT PHYSICAL THERAPY DAILY NOTE [facility] ONC MED 5K - 5K-26/026-A Time In: 1310 Time Out: 1359 Timed Code Treatment Minutes: 49 Minutes Minutes: 49 Date: 07/24/2022 Patient Name: Omer Santos, Gender: male : 1950 (72 y.o.) Referring Practitioner: Sharon Ellison PA-C Diagnosis: Lumbar spondylosis Additional Pertinent Hx: Pt is s/p L2-S1 revision decompression and L2-pelvis fusion, durotomy repair 07/[address] Velazco and Dr Gabe Harris. Code stroke 07/23, CT head negative. Prior Level of Function: Lives With: Spouse Type of Home: House Home Layout: One level Home Access: Stairs to enter without rails Entrance Stairs - Number of Steps: 3 Home Equipment: Walker, rolling Bathroom Shower/Tub: Walk-in shower Bathroom Toilet: Standard Bathroom Accessibility: Accessible ADL Assistance: Independent Homemaking Assistance: Independent Ambulation Assistance: Independent Transfer Assistance: Independent Active Reuse Technician: Yes Additional Comments: Information provided by due to pt lethargy; pt ambulates without AD. Restrictions/Precautions: Restrictions/Precautions: Fall Risk, General Precautions, Surgical Protocols Required Braces or Orthoses Spinal: Lumbar Corset Position Activity Restriction Spinal Precautions: No Bending, No Twisting, No Lifting Other position/activity restrictions: Chronic R foot drop, has AFO SUBJECTIVE: RN approved session, pt is seated in recliner with daughter present, significantly morealert and improved today vs yesterday. PAIN: denies seated in recliner Vitals: Vitals not assessed per clinical judgement, see nursing flowsheet OBJECTIVE: Bed Mobility: Sit to Supine: Minimal Assistance, X 1, with head of bed flat, with rail, with verbal cues , with increased time for completion Transfers: Sit to Stand: Contact Guard Assistance, X 1, with increased time for completion; slow to ascend Stand to Sit:Contact Guard Assistance, X 1, with increased time for completion Ambulation: Contact Guard Assistance, X 1 Distance: 75 feet Surface: Level Tile Device:Rolling Walker Gait Deviations: Forward Flexed Posture, Slow Esthre, Decreased Step Length Bilaterally, DecreasedWeight Shift Bilaterally, Decreased Gait Speed, and Decreased Heel Strike Bilaterally Consistent verbal cues on walker safety and posture Exercise: Patient was guided in 1 set(s) 15 reps of exercise to both lower extremities, while seated EOB. Ankle pumps, Seated marches, and Long arc quads. Exercises were completed for increased independence with functional mobility. Functional Outcome Measures: Not completed ASSESSMENT: Assessment: Patient progressing toward established goals. Education on back precautions, handout provided. Activity Tolerance: Patient tolerance of treatment: good. Equipment Recommendations:Equipment Needed: No Discharge Recommendations: Home with Home Health PT Plan: Current Treatment Recommendations: Strengthening, Positioning, Patient/Caregiver education & training, Safety education & training, Functional mobility training, Gait training, Home exercise program, Therapeutic activities, Stair training, Transfer training General Plan: (6x O) Patient Education Patient Education: Plan of Care, Precautions/Restrictions, Transfers, Gait, Education Related to Prevention of Recurrence of Impairment/Illness/Injury Goals: Patient Goals : to go home Short Term Goals Time Frame for Short Term Goals: by discharge Short Term Goal 1: Pt to transfer supine <--> sit SBA to enable pt to get in/out of bed. Short Term Goal 2: Pt to transfer sit <--> stand SBA for increased functional mobility. Short Term Goal 3: Pt to ambulate >200 feet with RW SBA for household ambulation. Short Term Goal 4: Pt to ascend/descend 3 steps without HR CGA for home entry. Assisted Goals Time Frame for Assisted Goals : NA due to short length of stay. Following session, patient left in safe position with all fall risk precautions in place. * DIANN Arango - 07/24/2022 10:36 AM EDT [facility] 5K Occupational Therapy Daily Note Time: Time In: 956 Time Out: 1036 Timed Code Treatment Minutes: 39 Minutes Minutes: 39 Date: 07/24/2022 Patient Name: Omer Santos, Gender: male Room: [address] [place] [address] : 1950 (72 y.o.) Referring Practitioner: Sharon Ellison PA-C Diagnosis: lumbar spondylosis Additional Pertinent Hx: per chart review; 72-year-old male who was referred from Dr Felix and is having constant lumbar pain with radiation of pain into the left hip and down the lateral left leg to the ankle with numbness in the lateral left calf. The patient reports symptoms began worsening about3 months ago. No known injury or fall. Current VAS score 5/10. Percentage farrell, 50% of the pain is in the back and 50% into the left leg. Activities that aggravate the pain include standing, lying supine, lying on his side, and walking. Activities that help alleviate the pain include leaning forward and changing positions. Modifying factors include medication management, physical therapy, and inje ctions with Dr Felix. These have provided mild relief with no lasting benefit. He denies RLE symptoms. Patient denies bowel or bladder dysfunction or helga weakness into the extremities. Prior L2-S1 decompression by Dr Shanks in [place] in 2011. Patient is a nonsmoker. H/o diabetes with A1C 6.7 as wellas chronic anemia 2/2 stage 3b CKD, Patient receives regular injections of procrit. Pre-op labs revealed Hgb 9.1. Restrictions/Precautions: Restrictions/Precautions: Fall Risk, General Precautions, Surgical Protocols Required Braces or Orthoses Spinal: Lumbar Corset Position Activity Restriction Spinal Precautions: No Bending, No Twisting, No Lifting Other position/activity restrictions: Chronic R foot drop, has AFO SUBJECTIVE: Pt seated EOB with daughter present upon arrival, agreeable to OT session with min encouragement. PAIN: Did not rate: Back Vitals: Vitals not assessed per clinical judgement, see nursing flowsheet COGNITION: Slow Processing, Decreased Recall, Decreased Insight, Decreased Problem Solving, Decreased Safety Awareness, Impaired Attention, and Impulsive ADL: Lower Extremity Dressing: Maximum Assistance. Pt's daughter threading BLE into pants. [place] to manage over hips in standing . BALANCE: Sitting Balance: Supervision. EOB Standing Balance: Contact Guard Assistance, Minimal Assistance. X1 minute in prep for mobility BED MOBILITY: Scooting: Modified Independent EOB TRANSFERS: Sit to Stand: Contact Guard Assistance, Minimal Assistance. Stand to Sit: Contact Guard Assistance, Minimal Assistance. Comment: To/from various surfaces- max cues for hand placement. FUNCTIONAL MOBILITY: Assistive Device: Rolling Walker Assist Level: Contact Guard Assistance and Minimal Assistance. Distance: Completed functional mobility within pt room x2 trials EOB to chair and x2 laps around room with lengthy seated rest break between each lap. Pt with very slow pace and no LOB noted with minunsteadiness. Pt requires mod-min cues for walker safety- lengthy seated rest break after each trial of mobility, mod fatigue noted. ADDITIONAL ACTIVITIES: Patient and daughter participated in functional transfer education regarding bathroom safety with safe toilet transfers and ADL performance with spinal precautions. Patient and daughter demo'ed good understanding of education, appreciation and asked appropriate questions. ASSESSMENT: Activity Tolerance: Patient tolerance of treatment: Fair treatment tolerance Discharge Recommendations: Subacute/penitentiary facility, 24 hour assistance or supervision, and Patient would benefit from continued OT at discharge Equipment Recommendations: Equipment Needed: Yes Mobility Devices: ADL Assistive Devices Plan: Times Per Week: 6x Times Per Day: Once a day Current Treatment Recommendations: Strengthening, Balance training, Functional mobility training, Endurance training, Safety education & training, Neuromuscular re-education, Patient/Caregiver education & training, Equipment evaluation, education, & procurement, Self-Care / ADL Patient Education Patient Education: ADL's, Energy Conservation, Precautions, Family Education, Equipment Education, Home Safety, Importance of Increasing Activity, Assistive Device Safety, and Safety with transfers and mobility. Goals Short Term Goals Time Frame for Short Term Goals: by discharge Short Term Goal 1: patient will tolerate 3 min functional standing with one-two hand release with sit to stand and participate with CGA to increase ease with toileting. Short Term Goal 2: patient will functionally ambulate to/from BR with CGA and 1- 2 cues for safety and sequencing. Short Term Goal 3: patient will participate in minimal resistive UB exer to increase UB strength for functional transfers. Short Term Goal 4: patient will complete UB ADLs with SBA and LB ADLs with MOD A and use of AE PRN with 1-2 cues for spinal precautions. Following session, patient left in safe position with all fall risk precautions in place. * Kylie Acuna MD - 07/24/2022 10:08 AM EDT INTERNAL MEDICINE Progress Note 07/24/2022 10:08 AM Subjective: Admit Date: 07/19/2022 PCP: Ruben Luo MD Interval History: Alert +++ today, sitting up in beds Tolerated B/fast, no BM denies BERRIOS, no fever Objective: Vitals: BP (!) 157/90 Pulse 88 Temp 97.7 F (36.5 C) (Oral) Resp 18 Ht 5' 7 (1.702 m) Wt 169 lb (76.7 kg) SpO2 93% BMI 26.47 kg/m General appearance: alert, O x3 HEENT: atraumatic Neck: no adenopathy, no carotid bruit, and no JVD Lungs: clear to auscultation bilaterally Heart: S1, S2 normal Abdomen: soft, non-tender; bowel sounds normal; no masses, no organomegaly Extremities: swollen arms, doppler both arms negative for DVT Neurologic: alert, oriented x3, moves all 4 extremities Back: drains x2 in situ-off suction Medications: Scheduled Meds: dexamethasone 8 mg IntraVENous Q8H ferrous sulfate 325 mg Oral BID WC amLODIPine 10 mg Oral Daily sodium chloride flush 5-40 mL IntraVENous 2 times per day polyethylene glycol 17 g Oral Daily bisacodyl 5 mg Oral Daily sennosides-docusate sodium 1 tablet Oral BID doxazosin 4 mg Oral QAM losartan 50 mg Oral Daily atorvastatin 40 mg Oral QPM magnesium oxide 400 mg Oral Daily insulin lispro 0-4 Units SubCUTAneous TID WC insulin lispro 0-4 Units SubCUTAneous Nightly carvedilol 12.5 mg Oral BID WC Continuous Infusions: sodium chloride 50 mL/hr at 07/24/22 0208 sodium chloride sodium chloride dextrose Lab Results: CBC: Recent Labs 07/22/22 1847 07/23/22 0741 07/24/22 0436 WBC 8.0 6.7 4.6* HGB 8.1* 7.6* 7.4* PLT 157 128* 132 BMP: Recent Labs 07/22/22 1847 07/23/22 0741 07/24/22 0436 NA 139 141 137 K 4.7 4.8 5.6* CL 109 111 107 CO2 18* 19* 18* BUN 25* 30* 41* CREATININE 2.4* 2.8* 2.8* GLUCOSE 167* 113* 188* HgBA1c: Lab Results Component Value Date/Time LABA1C 6.6 07/20/2022 05:03 AM IRON: Lab Results Component Value Date/Time IRON 58 07/19/2022 12:55 PM FERRITIN: Lab Results Component Value Date/Time FERRITIN 105 07/19/2022 12:55 PM VL DUP LOWER EXTREMITY VENOUS BILATERAL [[id number]] Resulted: 07/23/22 171 Updated: 07/23/22 172 Narrative: FINDINGS: There is normal color flow, spectral analysis and compressibility of the common femoral vein, superficial femoral vein and popliteal vein bilaterally . There is normal color flow and compressibility in the posterior tibial veins, anterior tibial veinsand peroneal veins. Impression: No evidence of a DVT. CT HEAD WO CONTRAST [[id number]] Resulted: 07/23/22 1323 Updated: 07/23/22 1326 Narrative: There is no hemorrhage. There are no intra-or extra-axial collections. There is no hydrocephalus, midline shift or mass effect. The ann-white matter differentiation is preserved. There is mucosal thickening in the ethmoid air cells bilaterally. There is some mild mucosal thickening in both maxillary sinuses. There is no suspicious calvarial abnormality. Impression: No evidence of an acute process. Assessment and Plan: L2-S1 degenerative disc disease and facet arthropathy with stenosis, neuroforaminal stenosis, and radiculopathy Prior L2-S1 decompression with resulting chronic right foot drop L2-S1 REVISION DECOMPRESSION WITH L2-PELVIS FUSION 07/20/22 DM 2 CKD stage III Hyperkalemia - had lokelma x1, f/up K HTN Anemia of chronic dx Acute blood loss anemia post op, will transfuse to keep Hb>7 AMS, negative CT head, -improved mentation -limit narcotics and sedatives plan Cont accuchecks with SSI Cont hydration Avoid nephrotoxics, Cont amlodipine, BB, cardura SCD Am labs. Kylie Acuna MD, MD * Sharon Ellison PA-C - 07/24/2022 6:42 AM EDT Department of Orthopedic Surgery Spine Service Attending Progress Note Subjective: Pod#4 pt much more alert this morning. C/o incision site pain. Leg pain resolved since yesterday with decadron. Hgb 7.4. K+ 5.6. Vitals VITALS: BP (!) 133/55 Pulse 70 Temp 98 F (36.7 C) (Oral) Resp 18 Ht 5' 7 (1.702 m) Wt 169 lb (76.7 kg) SpO2 98% BMI 26.47 kg/m 24HR INTAKE/OUTPUT: Intake/Output Summary (Last 24 hours) at 07/24/2022 0642 Last data filed at 07/24/2022 0607 Gross per 24 hour Intake 7239.09 ml Output 1828 ml Net 5411.09 ml URINARY CATHETER OUTPUT (Hernandez): Urinary Catheter 07/20/22-Output (mL): 525 mL DRAIN/TUBE OUTPUT: Closed/Suction Drain Inferior;Left Back Accordion-Output (ml): 25 ml Closed/Suction Drain Inferior;Right Back Accordion-Output (ml): 20 ml Drains 63+90 over 24 h PHYSICAL EXAM: Orientation: alert and oriented to person, place and time Incision: dressing in place, some saturation, intact. Hemovac drains in place bilaterally. Lower Extremity Motor : quadriceps, extensor hallucis longus, dorsiflexion, plantarflexion 5/5 bilaterally except 2/5 bilateral TA Lower Extremity Sensory: Intact L1-S1 except chronic numbness in b/l feet LABS: HgB: Lab Results Component Value Date/Time HGB 7.4 07/24/2022 04:36 AM ASSESSMENT AND PLAN: Post operative day 4 status post L2-S1 revision decompression and L2-pelvis fusion 1: Monitor labs and drain output 2: Activity Level: as tolerated with back brace on. Ambulate with PT/OT today. Discussed importanceof ambulation with patient in order to go home vs rehab. 3: Pain Control: okay. Continue to hold narcotics. Tylenol only. 4: Discharge Planning: pending - discussion starting on possible rehab but pt prefers home Sharon Ellison PA-C * Kylie Acuna MD - 07/23/2022 6:30 PM EDT INTERNAL MEDICINE Progress Note 07/23/2022 6:30 PM Subjective: Admit Date: 07/19/2022 PCP: Ruben Luo MD Interval History: Events noted, episode of confusion/ slurred speech earlier today, CT head negative Resting comfortably, Responds to stimulation denies BERRIOS, no fever Objective: Vitals: BP 119/79 Pulse 76 Temp 98.3 F (36.8 C) (Oral) Resp 18 Ht 5' 7 (1.702 m) Wt 169 lb (76.7 kg) SpO2 94% BMI 26.47 kg/m General appearance: somnolent but he rouses to stimulation HEENT: atraumatic Neck: no adenopathy, no carotid bruit, and no JVD Lungs: clear to auscultation bilaterally Heart: S1, S2 normal Abdomen: soft, non-tender; bowel sounds normal; no masses, no organomegaly Extremities: swollen arms, doppler both arms negative for DVT Neurologic: somnolent, wakes up to stimulation and moves all 4 extremities Back: drains x2 in situ-off suction Medications: Scheduled Meds: dexamethasone 8 mg IntraVENous Q8H ferrous sulfate 325 mg Oral BID WC amLODIPine 10 mg Oral Daily sodium chloride flush 5-40 mL IntraVENous 2 times per day polyethylene glycol 17 g Oral Daily bisacodyl 5 mg Oral Daily sennosides-docusate sodium 1 tablet Oral BID doxazosin 4 mg Oral QAM losartan 50 mg Oral Daily atorvastatin 40 mg Oral QPM magnesium oxide 400 mg Oral Daily insulin lispro 0-4 Units SubCUTAneous TID WC insulin lispro 0-4 Units SubCUTAneous Nightly carvedilol 12.5 mg Oral BID WC Continuous Infusions: sodium chloride sodium chloride dextrose Lab Results: CBC: Recent Labs 07/22/22 0506 07/22/22 1847 07/23/22 0741 WBC 7.2 8.0 6.7 HGB 8.0* 8.1* 7.6* PLT 137 157 128* BMP: Recent Labs 07/22/22 0506 07/22/22 1847 07/23/22 0741 NA 139 139 141 K 4.5 4.7 4.8 CL 111 109 111 CO2 18* 18* 19* BUN 23* 25* 30* CREATININE 2.4* 2.4* 2.8* GLUCOSE 119* 167* 113* HgBA1c: Lab Results Component Value Date/Time LABA1C 6.6 07/20/2022 05:03 AM IRON: Lab Results Component Value Date/Time IRON 58 07/19/2022 12:55 PM FERRITIN: Lab Results Component Value Date/Time FERRITIN 105 07/19/2022 12:55 PM VL DUP LOWER EXTREMITY VENOUS BILATERAL [[id number]] Resulted: 07/23/22 1719 Updated: 07/23/22 172 Narrative: FINDINGS: There is normal color flow, spectral analysis and compressibility of the common femoral vein, superficial femoral vein and popliteal vein bilaterally . There is normal color flow and compressibility in the posterior tibial veins, anterior tibial veinsand peroneal veins. Impression: No evidence of a DVT. CT HEAD WO CONTRAST [[id number]] Resulted: 07/23/22 1323 Updated: 07/23/22 1326 Narrative: There is no hemorrhage. There are no intra-or extra-axial collections. There is no hydrocephalus, midline shift or mass effect. The ann-white matter differentiation is preserved. There is mucosal thickening in the ethmoid air cells bilaterally. There is some mild mucosal thickening in both maxillary sinuses. There is no suspicious calvarial abnormality. Impression: No evidence of an acute process. Assessment and Plan: L2-S1 degenerative disc disease and facet arthropathy with stenosis, neuroforaminal stenosis, and radiculopathy Prior L2-S1 decompression with resulting chronic right foot drop L2-S1 REVISION DECOMPRESSION WITH L2-PELVIS FUSION 07/20/22 DM 2 CKD stage III HTN Anemia of chronic dx AMS, negative CT head, limit narcotics and sedatives plan Cont accuchecks with SSI Cont hydration Avoid nephrotoxics, stop metformin No NSAIDs Cont amlodipine, BB, cardura SCD D/w Dr Harris earlier in the day. Kylie Acuna MD, MD * Yomaira Lynn RN - 07/23/2022 5:44 PM EDT 1238 Patient came to nurse station stating her was not making sense. Upon arrival to the room I observed the patient was exhibiting jumbled speech, mild left facial drop and was alert toself only. Rapid response contacted at 1240 stroke related. 1248 code stroke called. [address]. * Lani Preciado OT - 07/23/2022 2:18 PM EDT [facility] INPATIENT OCCUPATIONAL THERAPY STR ONC MED 5K EVALUATION Time: Time In: 1418 Time Out: 1455 Timed Code Treatment Minutes: 23 Minutes Minutes: 37 Date: 07/23/2022 Patient Name: Omer Santos, Gender: male : 1950 (72 y.o.) Referring Practitioner: Sharon Ellison PA-C Diagnosis: lumbar spondylosis Additional Pertinent Hx: per chart review; 72-year-old male who was referred from Dr Felix and is having constant lumbar pain with radiation of pain into the left hip and down the lateral left leg to the ankle with numbness in the lateral left calf. The patient reports symptoms began worsening about3 months ago. No known injury or fall. Current VAS score 5/10. Percentage farrell, 50% of the pain is in the back and 50% into the left leg. Activities that aggravate the pain include standing, lying supine, lying on his side, and walking. Activities that help alleviate the pain include leaning forward and changing positions. Modifying factors include medication management, physical therapy, and inje ctions with Dr Felix. These have provided mild relief with no lasting benefit. He denies RLE symptoms. Patient denies bowel or bladder dysfunction or helga weakness into the extremities. Prior L2-S1 decompression by Dr Shanks in [place] in 2011. Patient is a nonsmoker. H/o diabetes with A1C 6.7 as wellas chronic anemia 2/2 stage 3b CKD, Patient receives regular injections of procrit. Pre-op labs revealed Hgb 9.1. Restrictions/Precautions: Restrictions/Precautions: Fall Risk, General Precautions, Surgical Protocols Required Braces or Orthoses Spinal: Lumbar Corset Position Activity Restriction Spinal Precautions: No Bending, No Twisting, No Lifting Other position/activity restrictions: Chronic R foot drop, has AFO Subjective Chart Reviewed: Yes, Orders, Progress Notes, History and Physical, Imaging, Operative Notes Patient assessed for rehabilitation services?: Yes Family / Caregiver Present: Yes (spouse) Subjective: RN approved session-states she will remove bedrest orders, first attempt to eval patient in a.m. with PT working with patient. second attempt to eval patient in p.m. with ortho physician in room with patient encouraging patient to increase his activity; and patient seated EOB. patient'sspouse present in room. patient A & O x 4. patient unable to recall precautions. Pain: did not rate pain, however constant vocalizations and facial grimacing t/o eval. Reports R hip pain and unable to fully sit at midline posture in recliner. Restless in recliner. RN was given instructions to provide patient with a steroid per physician. 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 VISION:WFL HEARING: WFL COGNITION: Decreased Recall, Decreased Insight, Decreased Safety Awareness, Impaired Attention, Difficulty Following Commands, Impulsive, and argumentative with encouragement, restless RANGE OF MOTION: Bilateral Upper Extremity: WFL STRENGTH: Bilateral Upper Extremity: elbow flex 4/5 ext 4-/5 terminal operator (F-) SENSATION: WFL ADL: No ADL's completed this session.. -donned lumbar corset seated EOB with MAX A BALANCE: Sitting Balance: Stand By Assistance. Due to being impulsive and restless in recliner. Poor safety awareness due to pain. Standing Balance: Contact Guard Assistance, Minimal Assistance. With use of 2 w/w for support BED MOBILITY: Not Tested-patient seated EOB upon OT arrival TRANSFERS: Sit to Stand: Minimal Assistance, X 1. From slightly elevated EOB and increased time; unable to complete first attempt and then readjusted and completed full sit to stand from EOB. Cues for narrow LIV at feet and 2 w/w placement due to far out in front of him. FUNCTIONAL MOBILITY: Assistive Device: Rolling Walker Assist Level: Contact Guard Assistance and Minimal Assistance. Distance: from EOB to recliner Tactile cues for 2 w/w and to stay inside of 2 w/w. RN present to assist with managing IV pole and SBA for assist as needed for transfers/mobility due to patient's pain and cognition. Increased time after seated in recliner to convince patient to recline back due to his decreased safety with sitting up with patient unable to tolerate when attempting to elevating feet and wanted feet placed back down on ground. Patient's present in room to keep patient from falling forward out of recliner. Activity Tolerance: Patient tolerance of treatment: Poor treatment tolerance; due to pain in back and R hip/LE, poor direction following, decreased safety awareness and impulsiveness. Assessment: Assessment: patient demo overall de-conditioning, weakness and low back pain impacting his ability to effectively complete and tolerate ADLs and functional transfers as prior. patient uaware of spinal precautions increasing his risk for re-injury. patient would benefit from continued, skilled OT toincrease activity tolerance, UB strength, ease and (I) with ADLs and functional transfers to decrease caregiver burden and prevent falls. Performance deficits / Impairments: Decreased functional mobility , Decreased ADL status, Decreasedendurance, Decreased strength, Decreased balance, Decreased safe awareness, Decreased cognition Prognosis: Fair REQUIRES OT FOLLOW-UP: Yes Decision Making: Medium Complexity Treatment Initiated: Treatment and education initiated within context of evaluation. Evaluation time included review of current medical information, gathering information related to past medical, social and functional history, completion of standardized testing, formal and informal observation of tasks, assessment of data and development of plan of care and goals. Treatment time included skilled education and facilitation of tasks to increase safety and independence with ADL's for improved functional independence and quality of life. Discharge Recommendations: Continue to assess pending progress, Patient would benefit from continued therapy after discharge, Subacute/[facility] Facility, Assisted Care with OT, 24 hour supervision or assist Patient Education: Patient Education Education Given To: Patient, Family Education Provided: Role of Therapy, ADL Adaptive Strategies, Fall Prevention Strategies, Plan of Care, Transfer Training, Precautions Education Provided Comments: importance of increasing activity Barriers to Learning: Cognition Equipment Recommendations: Equipment Needed: Yes Mobility Devices: ADL Assistive Devices Plan: Times Per Week: 6x Times Per Day: Once a day Current Treatment Recommendations: Strengthening, Balance training, Functional mobility training, Endurance training, Safety education & training, Neuromuscular re-education, Patient/Caregiver education & training, Equipment evaluation, education, & procurement, Self-Care / ADL. See long-term goal time frame for expected duration of plan of care. If no long-term goals established, a short length of stay is anticipated. Goals: Patient goals : none stated Short Term Goals Time Frame for Short Term Goals: by discharge Short Term Goal 1: patient will tolerate 3 min functional standing with one-two hand release with sit to stand and participate with CGA to increase ease with toileting. Short Term Goal 2: patient will functionally ambulate to/from BR with CGA and 1- 2 cues for safety and sequencing. Short Term Goal 3: patient will participate in minimal resistive UB exer to increase UB strength for functional transfers. Short Term Goal 4: patient will complete UB ADLs with SBA and LB ADLs with MOD A and use of AE PRN with 1-2 cues for spinal precautions. Following session, patient left in safe position with all fall risk precautions in place. * Curtis Carter - 07/23/2022 2:11 PM EDT Pt is a 72y.o. male, in . Percussion Teacher was called to room due to a Rapid Response-Stroke Related alert; pt Caridad was also in the room. Percussion Teacher provided brief prayer for Hubert prior to going toCT, presence, prayer and griefcare for Caridad as she waited for him to return. Caridad shared several personal/familial losses experienced between she and Hubert over the past few years, and has led tobeing leery while in a hospital setting-causing extra layer of stress and worry for them. Percussion Teacher prayed for Caridad as well as she mauro with all this-met with gratitude by Caridad. 07/23/22 1410 Encounter Summary Encounter Overview/Reason Crisis Service Provided For: Patient and family together Referral/Consult From: Nursing Rheostat Assembler/Vision Teacher System Spouse Last Encounter 07/23/22 Complexity of Encounter High Begin Time 1245 End Time 1327 Total Time Calculated 42 min Crisis Type Rapid Response Assessment/Intervention/Outcome Assessment Compromised coping;Concerns with suffering;Impaired resilience;Impaired social interaction;Shock;Tearful Intervention Active listening;Sustaining Presence/Ministry of presence;Prayer (assurance of)/[place];Nurtured Hope;Explored/Affirmed feelings, thoughts, concerns;Discussed illness injury and it s impact;Discussed relationship with God Outcome Receptive;Expressed Gratitude;Expressed feelings, needs, and concerns;Engaged in conversation;Coping * Gaby León RP - 07/23/2022 2:05 PM EDT Code Stroke Note Last Known Well < 4.5 hours? Yes Recent anticoagulant use (therapeutic Lovenox within 24 hrs, DOAC/DTI within 48 hrs if normal renalfunction, warfarin with INR > 1.7, PT > 15 sec, aPTT > 40 sec)? No BP less than 185/110 mmHg (if no, include what medication was used to decrease BP)? Yes Are there any other contraindications to TNK (previous intracranial hemorrhage, recent or active bleeding, intracranial or intraspinal surgery within 3 months, previous stroke within 3 months, intracranial neoplasm, GI malignancy, GI bleeding in previous 21 days, infective endocarditis, platelets < 100,000, stroke suspected to be due to aortic arch dissection)? N/A Was TNK given (over 5 seconds & flushed before & after)? No If yes, were orders placed in EPIC? N/A If no, include reason for no TNK: mild symptoms or symptoms resolved If no and TNK was mixed, was the product returned to pharmacy? N/A Dismissed from code stroke by: Provider ALKA Wheeler, PharmD, BCPS 07/23/2022 2:05 PM * Carlita Marmolejo, PT - 07/23/2022 10:36 AM EDT [facility] INPATIENT PHYSICAL THERAPY EVALUATION [facility] 5K - 5K-26/026-A Time In: 0949 Time Out: 1021 Timed Code Treatment Minutes: 23 Minutes Minutes: 32 Date: 07/23/2022 Patient Name: Omer Santos, Gender: male : 1950 (72 y.o.) Referring Practitioner: Sharon Ellison PA-C Diagnosis: Lumbar spondylosis Additional Pertinent Hx: Pt is s/p L2-S1 revision decompression and L2-pelvis fusion, durotomy repair 07/[address] Velazco and Dr Gabe Harris. Restrictions/Precautions: Restrictions/Precautions: Fall Risk Required Braces or Orthoses Spinal: Lumbar Corset Position Activity Restriction Spinal Precautions: No Bending, No Twisting, No Lifting Other position/activity restrictions: Chronic R foot drop, has AFO Subjective: Chart Reviewed: Yes Patient assessed for rehabilitation services?: Yes Family / Caregiver Present: Yes Subjective: Pt is supine in bed with present, pt refuses PT initially, does participate in AAROM B LE and rolls in bed x 2. Max encouragement for OOB mobility, pt refuses several times due to pain, encouraging as well. Pt sleepy, cues to keep eyes open, however, is more alert than yesterday per . Pt communicating and oriented to person, place and situation. General: Overall Orientation Status: Impaired Orientation Level: Oriented to place, Oriented to situation, Oriented to person, Disoriented to time Vision: Within Functional Limits Hearing: Within functional limits Pain: 01/15: only able to have Tylenol due to lethargy (received ~45 mins prior to session) Vitals: Vitals not assessed per clinical judgement, see nursing flowsheet Social/Functional History: Lives With: Spouse Type of Home: House Home Layout: One level Home Access: Stairs to enter without rails Entrance Stairs - Number of Steps: 3 Home Equipment: Walker, rolling Ambulation Assistance: Independent Transfer Assistance: Independent Active 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 [email or web address] Additional Comments: Information provided by due to pt lethargy; pt ambulates without AD OBJECTIVE: Range of Motion: Bilateral Lower Extremity: WFL Strength: Right Lower Extremity: Impaired - DF 1/5, mod A for heel slides and hip abd/add Left Lower Extremity: Impaired - DF 3-/5, max A for heelslides and hip abd/add Bed Mobility: Rolling to Left: Maximum Assistance, X 1, with head of bed flat, without rail, with verbal cues , with increased time for completion Pt rolls in bed x 2 trials, refuses OOB mobility with extensive education on the importance of mobility Exercise: Patient was guided in 1 set(s) 10 reps of exercise to both lower extremities, AAROM, mod A for R LE, max A for L LE. Ankle pumps, Heelslides, and Hip abduction/adduction. Exercises were completed for increased independence with functional mobility. Functional Outcome Measures: Completed AM-[facility] Inpatient Mobility without Stair Climbing Raw Score : 6 AM-[facility] Inpatient without Stair Climbing T-Scale Score : 26.48 ASSESSMENT: Activity Tolerance: Patient tolerance of treatment: poor. Limited by pain, lethargy. Treatment Initiated: Treatment and education initiated within context of evaluation. Evaluation time included review of current medical information, gathering information related to past medical, social and functional history, completion of standardized testing, formal and informal observation of tasks, assessment of data and development of plan of care and goals. Treatment time included skilled education and facilitation of tasks to increase safety and independence with functional mobility forimproved independence and quality of life. Assessment: Body Structures, Functions, Activity Limitations Requiring Skilled Therapeutic Intervention: Decreased functional mobility , Decreased cognition, Decreased endurance, Increased pain, Decreased balance, Decreased strength Assessment: Omer Santos is a 72 y.o. male that presents s/p lumbar sx. he is ind prior to admission now requiring assist for basic mobility. Pt demonstrates a decrease in baseline by way of bed mobility, transfers and ambulation secondary to decreased activity tolerance, strength, fatigue, and balance deficits. Pt will benefit from skilled PT services throughout admission and beyond hospital discharge for improvements in functional mobility and in order to decrease fall risk and return pt to PLOF. Therapy Prognosis: Good Requires PT Follow-Up: Yes Discharge Recommendations: Discharge Recommendations: Continue to assess pending progress, Patient would benefit from continued therapy after discharge Patient Education: . Patient Education Education Given To: Patient, Family Education Provided: Role of Therapy, Orientation, Plan of Care, Precautions Education Method: Verbal Barriers to Learning: Cognition, Other (Comment) (Lethargy) Education Outcome: Continued education needed Equipment Recommendations: Equipment Needed: No Plan: Current Treatment Recommendations: Strengthening, Positioning, Patient/Caregiver education & training, Safety education & training, Functional mobility training General Plan: (6x O) Goals: Patient Goals : to go home Short Term Goals Time Frame for Short Term Goals: by discharge Short Term Goal 1: Pt to roll L and R in bed with SBA for improved bed positioning. Short Term Goal 2: PT to assess mobility. Regional Forester Goals Time Frame for Regional Forester Goals : NA due to short length of stay. Following session, patient left in safe position with all fall risk precautions in place. * Sharon Ellison PA-C - 07/23/2022 6:48 AM EDT Department of Orthopedic Surgery Spine Service Attending Progress Note Subjective: Pod#2 pt c/o increasing incision site soreness. Got up to bedside chair yesterday without BERRIOS.Very somnolent. Spouse states decreased appetite. Vitals VITALS: BP (!) 161/64 Pulse 75 Temp 99.3 F (37.4 C) (Oral) Resp 19 Ht 5' 7 (1.702 m) Wt 169 lb (76.7 kg) SpO2 100% BMI 26.47 kg/m 24HR INTAKE/OUTPUT: Intake/Output Summary (Last 24 hours) at 07/23/2022 0648 Last data filed at 07/23/2022 0550 Gross per 24 hour Intake 130 ml Output 2925 ml Net -2795 ml URINARY CATHETER OUTPUT (Hernandez): Urinary Catheter 07/20/22-Output (mL): 300 mL DRAIN/TUBE OUTPUT: Closed/Suction Drain Inferior;Left Back Accordion-Output (ml): 60 ml Closed/Suction Drain Inferior;Right Back Accordion-Output (ml): 60 ml PHYSICAL EXAM: Orientation: alert and oriented to person, place and time Incision: dressing in place, some saturation, intact. Hemovac drains in place bilaterally. Lower Extremity Motor : quadriceps, extensor hallucis longus, dorsiflexion, plantarflexion 5/5 bilaterally except 2/5 bilateral TA Lower Extremity Sensory: Intact L1-S1 except chronic numbness in b/l feet LABS: HgB: Lab Results Component Value Date/Time HGB 8.1 07/22/2022 06:47 PM AM labs not completed ASSESSMENT AND PLAN: Post operative day 3 status post L2-S1 revision decompression and L2-pelvis fusion 1: Monitor labs and drain output 2: Activity Level: as tolerated with back brace on. Ambulate with PT/OT today 3: Pain Control: poor, but need to hold narcotics and flexeril today to help decrease somnolence.Tylenol only. 4: Discharge Planning: pending 5: Decreased appetite: start pt on ensure/protein drinks Sharon Ellison PA-C * Kylie Acuna MD - 07/22/2022 11:32 AM EDT INTERNAL MEDICINE Progress Note 07/22/2022 11:32 AM Subjective: Admit Date: 07/19/2022 PCP: Ruben Luo MD Interval History: D2 post L2-S1 REVISION DECOMPRESSION WITH L2-PELVIS FUSION On analgesics More somnolent today, no BERRIOS, no fever Objective: Vitals: BP (!) 126/43 Pulse 82 Temp 99.5 F (37.5 C) (Axillary) Resp 20 Ht 5' 7 (1.702 m) Wt 169 lb (76.7 kg) SpO2 95% BMI 26.47 kg/m General appearance: alert and cooperative with exam HEENT: atraumatic Neck: no adenopathy, no carotid bruit, and no JVD Lungs: clear to auscultation bilaterally Heart: S1, S2 normal Abdomen: soft, non-tender; bowel sounds normal; no masses, no organomegaly Extremities: no edema, redness or tenderness in the calves or thighs Neurologic: Alert, oriented, thought content appropriate Back: drain in situ-off suction Medications: Scheduled Meds: amLODIPine 10 mg Oral Daily sodium chloride flush 5-40 mL IntraVENous 2 times per day polyethylene glycol 17 g Oral Daily bisacodyl 5 mg Oral Daily sennosides-docusate sodium 1 tablet Oral BID doxazosin 4 mg Oral QAM losartan 50 mg Oral Daily atorvastatin 40 mg Oral QPM magnesium oxide 400 mg Oral Daily insulin lispro 0-4 Units SubCUTAneous TID WC insulin lispro 0-4 Units SubCUTAneous Nightly carvedilol 12.5 mg Oral BID WC Continuous Infusions: sodium chloride sodium chloride 125 mL/hr at 07/22/22 0531 sodium chloride dextrose Lab Results: CBC: Recent Labs 07/20/22 0503 07/21/22 0505 07/22/22 0506 WBC 7.3 6.8 7.2 HGB 11.2* 8.7* 8.0* PLT 180 158 137 BMP: Recent Labs 07/20/22 0503 07/21/22 0505 07/22/22 0506 NA 142 141 139 K 4.2 4.8 4.5 CL 109 108 111 CO2 25 18* 18* BUN 30* 26* 23* CREATININE 2.1* 2.0* 2.4* GLUCOSE 132* 113* 119* HgBA1c: Lab Results Component Value Date/Time LABA1C 6.6 07/20/2022 05:03 AM IRON: Lab Results Component Value Date/Time IRON 58 07/19/2022 12:55 PM FERRITIN: Lab Results Component Value Date/Time FERRITIN 105 07/19/2022 12:55 PM Assessment and Plan: L2-S1 degenerative disc disease and facet arthropathy with stenosis, neuroforaminal stenosis, and radiculopathy Prior L2-S1 decompression with resulting chronic right foot drop L2-S1 REVISION DECOMPRESSION WITH L2-PELVIS FUSION 07/20/22 DM 2 CKD stage III HTN Anemia of chronic dx plan Accuchecks with SSI Cont hydration Avoid nephrotoxics, stop metformin No NSAIDs Cont amlodipine, BB, cardura Reduce sedatives SCD Kylie Acuna MD, MD * ALKA Clark-Sánchez - 07/22/2022 8:26 AM EDT Department of Orthopedic Surgery Spine Service Attending Progress Note Subjective: Pod#2 pt c/o incision site soreness. Leg pain improved. Pt flat this morning with no BERRIOS. Vitals VITALS: BP (!) 162/52 Pulse 94 Temp 99.7 F (37.6 C) (Oral) Resp 19 Ht 5' 7 (1.702 m) Wt 169 lb (76.7 kg) SpO2 96% BMI 26.47 kg/m 24HR INTAKE/OUTPUT: Intake/Output Summary (Last 24 hours) at 07/22/2022 0826 Last data filed at 07/22/2022 0411 Gross per 24 hour Intake 2111.79 ml Output 3590 ml Net -1478.21 ml URINARY CATHETER OUTPUT (Hernandez): Urinary Catheter 07/20/22-Output (mL): 700 mL DRAIN/TUBE OUTPUT: Closed/Suction Drain Inferior;Left Back Accordion-Output (ml): 30 ml Closed/Suction Drain Inferior;Right Back Accordion-Output (ml): 300 ml PHYSICAL EXAM: Orientation: alert and oriented to person, place and time Incision: dressing in place, saturated with blood, intact. Hemovac drains in place bilaterally. Newdressing applied. Lower Extremity Motor : quadriceps, extensor hallucis longus, dorsiflexion, plantarflexion 5/5 bilaterally except 2/5 bilateral TA Lower Extremity Sensory: Intact L1-S1 except chronic numbness in b/l feet LABS: HgB: Lab Results Component Value Date/Time HGB 8.0 07/22/2022 05:06 AM AM labs not completed ASSESSMENT AND PLAN: Post operative day 2 status post L2-S1 revision decompression and L2-pelvis fusion 1: Monitor labs and drain output 2: Activity Level: progress HOB to 30 degrees x1h, then 60 degrees x1h, then bedside chair x 2h. Once tolerates bedside chair, PT/OT to assist with ambulation. If pt develops BERRIOS, return to flat and contact provider. 3: Pain Control: poor 4: Discharge Planning: pending Sharon Ellison PA-C * Juan Bermeo RN - 07/22/2022 4:53 AM EDT Vitals rechecked, blood pressure elevated at 162/52, prn Hydralazine 10 mg administered per protocol, physician notified, will continue to monitor. * Juan Bermeo RN - 07/22/2022 12:53 AM EDT Patient is in bed asleep, no sign of distress, prn tylenol 650 mg given for temp at 100.4 and prn hydralazine given for elevated b/p at 165/59, physician notified, will continue to monitor. * Kylie Acuna MD - 07/21/2022 11:40 AM EDT INTERNAL MEDICINE Progress Note 07/21/2022 11:40 AM Subjective: Admit Date: 07/19/2022 PCP: Ruben Luo MD Interval History: D1 post L2-S1 REVISION DECOMPRESSION WITH L2-PELVIS FUSION On analgesics Objective: Vitals: BP (!) 175/70 Pulse 84 Temp 98.2 F (36.8 C) (Oral) Resp 16 Ht 5' 7 (1.702 m) Wt 169 lb (76.7 kg) SpO2 91% BMI 26.47 kg/m General appearance: alert and cooperative with exam HEENT: Head: atraumatic Neck: no adenopathy, no carotid bruit, and no JVD Lungs: clear to auscultation bilaterally Heart: S1, S2 normal Abdomen: soft, non-tender; bowel sounds normal; no masses, no organomegaly Extremities: no edema, redness or tenderness in the calves or thighs Neurologic: Mental status: Alert, oriented, thought content appropriate Back: drain in situ-off suction Medications: Scheduled Meds: [Held by provider] aspirin 81 mg Oral Daily sodium chloride flush 5-40 mL IntraVENous 2 times per day polyethylene glycol 17 g Oral Daily bisacodyl 5 mg Oral Daily sennosides-docusate sodium 1 tablet Oral BID doxazosin 4 mg Oral QAM losartan 50 mg Oral Daily atorvastatin 40 mg Oral QPM magnesium oxide 400 mg Oral Daily insulin lispro 0-4 Units SubCUTAneous TID WC insulin lispro 0-4 Units SubCUTAneous Nightly carvedilol 12.5 mg Oral BID WC amLODIPine 10 mg Oral QPM Continuous Infusions: sodium chloride sodium chloride 125 mL/hr at 07/21/22 1021 sodium chloride dextrose Lab Results: CBC: Recent Labs 07/19/22 1255 07/19/22 2214 07/20/22 0503 07/21/22 0505 WBC 5.7 -- 7.3 6.8 HGB 8.8* 10.9* 11.2* 8.7* PLT 176 -- 180 158 BMP: Recent Labs 07/19/22 1255 07/20/22 0503 07/21/22 0505 NA 141 142 141 K 4.3 4.2 4.8 CL 107 109 108 CO2 24 25 18* BUN 33* 30* 26* CREATININE 2.0* 2.1* 2.0* GLUCOSE 231* 132* 113* HgBA1c: Lab Results Component Value Date/Time LABA1C 6.6 07/20/2022 05:03 AM IRON: Lab Results Component Value Date/Time IRON 58 07/19/2022 12:55 PM FERRITIN: Lab Results Component Value Date/Time FERRITIN 105 07/19/2022 12:55 PM Assessment and Plan: L2-S1 degenerative disc disease and facet arthropathy with stenosis, neuroforaminal stenosis, and radiculopathy Prior L2-S1 decompression with resulting chronic right foot drop L2-S1 REVISION DECOMPRESSION WITH L2-PELVIS FUSION 07/20/22 DM 2 CKD stage III HTN Anemia of chronic dx plan Accuchecks with SSI Cont hydration Avoid nephrotoxics, stop metformin No NSAIDs Cont amlodipine, BB, cardura am labs. SCD Kylie Acuna MD, * Sharon Ellison PA-C - 07/20/2022 4:10 PM EDT Department of Orthopedic Surgery Spine Service Attending Progress Note Subjective: Pod#1 pt c/o incision site soreness. Leg pain improved. Pt at 15 degrees, states he cannot lie flat 2/2 pain. Vitals VITALS: BP (!) 112/54 Pulse 58 Temp (!) 96 F (35.6 C) (Temporal) Resp 27 Ht 5' 7 (1.702 m) Wt 169 lb (76.7 kg) SpO2 94% BMI 26.47 kg/m 24HR INTAKE/OUTPUT: Intake/Output Summary (Last 24 hours) at 07/20/2022 1610 Last data filed at 07/20/2022 1411 Gross per 24 hour Intake 2947 ml Output 2000 ml Net 947 ml URINARY CATHETER OUTPUT (Hernandez): DRAIN/TUBE OUTPUT: PHYSICAL EXAM: Orientation: alert and oriented to person, place and time Incision: dressing in place, saturated with blood, intact. Hemovac drains in place bilaterally. Lower Extremity Motor : quadriceps, extensor hallucis longus, dorsiflexion, plantarflexion 5/5 bilaterally except 2/5 bilateral TA Lower Extremity Sensory: Intact L1-S1 except chronic numbness in b/l feet LABS: HgB: Lab Results Component Value Date/Time HGB 11.2 07/20/2022 05:03 AM AM labs not completed ASSESSMENT AND PLAN: Post operative day 1 status post L2-S1 revision decompression and L2-pelvis fusion 1: Monitor labs and drain output 2: Activity Level: bedrest - flat until tomorrow morning after seen by provider 3: Pain Control: OK 4: Discharge Planning: pending Sharon Ellison PA-C * Maribeth Valiente RN - 07/20/2022 3:08 PM EDT 1509 - pt arrives to pacu, respirations unlabored on 6 L NC, npa and opa in place, pt bp soft, medicated per communications marketing intern, o2 sats low, pt unresponsive post anesthesia 1525 - pt still unresponsive post anesthesia, communications marketing intern at bedside 1540 - pt still unresponsive, Dr. Beckford at bedside, no new orders 1550 - pt opening eyes to voice, Dr. Beckford at bedside 1610 - pt opening eyes to voice, pt following commands, then drifts back to sleep 1615 - opa removed 1640 - npa removed, pt nodded head yes to being comfortable and denies pain 1650 - pt talking, alert and oriented x4 1655 - sasha removed 1700 - Dr. Harris at bedside assessing patient 1715 - report called to Ant RN 1720 - pt meets criteria for discharge from pacu at this time 1727 - pt transported to [facility] in stable condition * Darcy Cheney RN - 07/20/2022 8:54 AM EDT Mini neuro assessment completed on arrival to OR Bilateral pedal push pull diminished on left. Bilateral dorsalis pedal pulses present but weak bilateral * Estefani Sanchez RN - 07/20/2022 7:37 AM EDT Patient in Pre-Op holding area with no family present. Patient verified surgical and anesthesia consents. Patient arrived to OR with no hearing aides, dentures, glasses or clothing. Wedding ring placed in green contained with patient stickers and kept on patient bed. Nasal Swabs: Done prior to start of procedure Temp: 97.8 documented in this encounterBON [employer] Phone: [phone] NotePROCEDURE: XR LUMBAR SPINE (2-3 VIEWS) CLINICAL INFORMATION: s/p lumbar fusion, standing AP/lateral, COMPARISON: Postsurgical fluoroscopic images dated 07/20/2022. TECHNIQUE: AP and lateral views of the lumbar spine. FINDINGS: Redemonstration of laminectomies at L2-S1 with bilateral pedicle screws and sacroiliac anchors withinterconnecting rods. There is no evidence of hardware failure. There is stable alignment. There isdiffuse disc space narrowing and anterior osteophytosis throughout the lumbar spine, stable compared to prior exam. IMPRESSION: Redemonstration of laminectomies at L2-S1 with posterior fusion without acute abnormality identified. This report has been created using voice recognition software. It may contain minor errors which are inherent in voice recognition technology. Final report electronically signed by Dr. Lalo Polanco DO, MD on 07/25/2022 3:57 PM Interpreted by: Lalo Polanco DO Signed by: Lalo Polanco DO 07/25/22 Final resultSMem[facility]04-19-2023 NotePROCEDURE: XR LUMBAR SPINE (2-3 VIEWS) CLINICAL INFORMATION: s/p lumbar fusion, standing AP/lateral, COMPARISON: Postsurgical fluoroscopic images dated 07/20/2022. TECHNIQUE: AP and lateral views of the lumbar spine. FINDINGS: Redemonstration of laminectomies at L2-S1 with bilateral pedicle screws and sacroiliac anchors withinterconnecting rods. There is no evidence of hardware failure. There is stable alignment. There isdiffuse disc space narrowing and anterior osteophytosis throughout the lumbar spine, stable compared to prior exam. [facility] [id number] NotePROCEDURE: VL DUP LOWER EXTREMITY VENOUS BILATERAL CLINICAL INFORMATION: 72-year-old male with right lateral lower extremity edema. Recent back surgery. COMPARISON: No prior study. TECHNIQUE: Venous doppler ultrasound was performed of the bilateral lower extremities using ann scale, color flow and spectral doppler imaging. FINDINGS: There is normal color flow, spectral analysis and compressibility of the common femoral vein, superficial femoral vein and popliteal vein bilaterally . There is normal color flow and compressibility in the posterior tibial veins, anterior tibial veinsand peroneal veins. IMPRESSION: No evidence of a DVT. This report has been created using voice recognition software. It may contain minor errors which are inherent in voice recognition technology. Final report electronically signed by Dr Héctor Mcdonnell on 07/23/2022 5:19 PM Interpreted by: Héctor Mcdonnell MD Signed by: Héctor Mcdonnell MD 07/23/22 Final resultSaint [facility]04-17-2023 NotePROCEDURE: VL DUP LOWER EXTREMITY VENOUS BILATERAL CLINICAL INFORMATION: 72-year-old male with right lateral lower extremity edema. Recent back surgery. COMPARISON: No prior study. TECHNIQUE: Venous doppler ultrasound was performed of the bilateral lower extremities using ann scale, color flow and spectral doppler imaging. FINDINGS: There is normal color flow, spectral analysis and compressibility of the common femoral vein, superficial femoral vein and popliteal vein bilaterally . There is normal color flow and compressibility in the posterior tibial veins, anterior tibial veinsand peroneal veins. [id number] NotePROCEDURE: CT HEAD WO CONTRAST CLINICAL INFORMATION: New onset deficits. COMPARISON: No prior study. TECHNIQUE: Noncontrast 2 mm axial images were obtained through the brain. Sagittal and coronal reconstructions were obtained. . All CT scans at this facility use dose modulation, iterative reconstruction, and/or weight-based dosing when appropriate to reduce radiation dose to as low as reasonably achievable. FINDINGS: There is no hemorrhage. There are no intra-or extra-axial collections. There is no hydrocephalus, midline shift or mass effect. The ann-white matter differentiation is preserved. There is mucosal thickening in the ethmoid air cells bilaterally. There is some mild mucosal thickening in both maxillary sinuses. There is no suspicious calvarial abnormality. IMPRESSION: No evidence of an acute process. This report has been created using voice recognition software. It may contain minor errors which are inherent in voice recognition technology. Final report electronically signed by Dr. Gissel Escobedo on 07/23/2022 1:23 PM Interpreted by: Gissel Escobedo MD Signed by: Gissel Escobedo MD 07/23/22 Final resultSaint [facility]04-17-2023 NotePROCEDURE: CT HEAD WO CONTRAST CLINICAL INFORMATION: New onset deficits. COMPARISON: No prior study. TECHNIQUE: Noncontrast 2 mm axial images were obtained through the brain. Sagittal and coronal reconstructions were obtained. . All CT scans at this facility use dose modulation, iterative reconstruction, and/or weight-based dosing when appropriate to reduce radiation dose to as low as reasonably achievable. FINDINGS: There is no hemorrhage. There are no intra-or extra-axial collections. There is no hydrocephalus, midline shift or mass effect. The ann-white matter differentiation is preserved. There is mucosal thickening in the ethmoid air cells bilaterally. There is some mild mucosal thickening in both maxillary sinuses. There is no suspicious calvarial abnormality. [facility] [id number] NotePROCEDURE: XR LUMBAR SPINE 1 VW CLINICAL INFORMATION: surgery . TECHNIQUE: Crosstable lateral portable done in the OR COMPARISON: No prior study. FINDINGS: Rope Laying Machine Operator localizer overlies the pedicle of L2. IMPRESSION: Localizer at L2. This report has been created using voice recognition software. It may contain minor errors which are inherent in voice recognition technology. Final report electronically signed by Dr. Simba Castle on 07/20/2022 12:20 PM Interpreted by: Simba Castle MD Signed by: Simba Castle MD 07/20/22 Final resultSMem[facility]04-14-2023 NotePROCEDURE: XR LUMBAR SPINE 1 VW CLINICAL INFORMATION: surgery . TECHNIQUE: Crosstable lateral portable done in the OR COMPARISON: No prior study. FINDINGS: Rope Laying Machine Operator localizer overlies the pedicle of L2. [id number] Gracie is here for a 6 month follow up with no cardiac concerns. He is having surgery on his lower back on July 20. His , Caridad, states that PCP cleared him for surgery after reviewing recent stress test. Review of Systems Cardiovascular: Positive for dyspnea on exertion. States he's Having trouble walking. Skin: Positive for suspicious lesions. Concerned about spots on both forearms.[facility] 07-18-2022 NoteCardiovascular Medicine [facility] SUBJECTIVE Chief Complaint Patient presents with Follow-up 6 month CAD, HTN Pre-op Exam May already be cleared by family doctor reviewing stress test. Omer Santos is a 72 y.o. male here for follow-up. PMHx: NSTEMI, coronary artery disease (stent to ramus-50%, mid LAD 70% ostium, proximal diagonal, 40% proximal RCA), dyslipidemia, hypertension, diabetes type 2, anemia and asthma. Follows up with vascular surgery in [place] for carotid artery stenosis status post endarterectomy of right carotid. HPI Last HPI per Dr. Veronica: Omer Santos is seen in follow up. He is a 71-year-old man, who was admitted with wob-FJ-wttdxyy elevation myocardial infarction in january 2018. He underwent cardiac catheterization and stenting of the ramus. He has prior history of right carotid surgery in the past. Due to significant dyspnea on exertion, I proceeded with cardiac catheterization on 09/12/2018 and this showed similar findings as to the angiography done in January 2018. His echocardiogram was also nonrevealing. I had added isosorbide mononitrate 30 mg daily. His symptoms subsided. I then increased it to 60 mg daily for better blood pressure control. He previously was taking metoprolol and stopped it. At a prior visit I stopped isosorbide mononitrate since he wanted to take Viagra. He was admitted to [facility] in 06/2020 with renal dysfunction and acute diastolic HF. Recently he had worsening of renal function. At 1 point in time he was started on spironolactone 50 mg daily but this was stopped. At last visit of 05/05/2021 I increased carvedilol 6.25 mg to 1.5 tablets twice daily. He reports that this has improved his blood pressure control and his blood pressure has been well controlled at home. Today in the office the blood pressure is mildly elevated. He reports that his blood pressure is always high at the doctor's office. He is complaining of having spontaneous ecchymotic lesions in the upper extremities. Those are caused by scratching the arms. He otherwise feels good. He has no chest pain or shortness of breath on exertion. Previously his PCP prescribed Actos due to his hemoglobin A1c being 7.1%. He was worried about Actos and side effects. I advised against it and he never took it. 07/18/2022 He will be undergoing lower back surgery in [address] Юлия Savage out of [place]. He denies any complaints today including no CP, dyspnea, orthopnea, PND, LE edema, dizziness/LH, palpitations, syncope. He c/o lower back pain which limits his mobility and muscle loss from lack of mobility with his LLE. 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 BP during stress test last week was 208/88, BP in office today 156/62 and recheck was 172/64. He has not been routinely checking his BP at home. He c/o ecchymotic lesions to his JESSICA extremities. His Caridad accompanied him today. Patient Active Problem List Diagnosis Coronary artery disease involving tuscarora coronary artery of tuscarora heart without angina pectoris Status post coronary artery stent placement Essential hypertension Carotid artery stenosis, asymptomatic, right History of myocardial infarction Stage 3b chronic kidney disease (CMS/HCC) Type 2 diabetes mellitus (CMS/HCC) Stented coronary artery Spinal stenosis Sensorineural hearing loss, bilateral Rosacea Right atrial enlargement Restrictive lung disease Polypharmacy Obesity Polyarthralgia Normocytic anemia Neurogenic claudication Mixed hyperlipidemia Microalbuminuria Lumbosacral spondylosis without myelopathy Lumbar radiculopathy Kidney stone Heart disease Gastroesophageal reflux disease without esophagitis Dyslipidemia Disorder of both eustachian tubes Diabetic renal disease (CMS/HCC) Diabetic peripheral neuropathy (CMS/HCC) Claustrophobia Chronic fatigue syndrome BPH with obstruction/lower urinary tract symptoms Bilateral tinnitus Asthma Allergic rhinitis Acute non-ST segment elevation myocardial infarction (CMS/HCC) Acquired spondylolisthesis Abnormal digital rectal exam Acute exacerbation of moderate persistent extrinsic asthma History of tobacco use Impotence of organic origin Past Medical History: Diagnosis Date Carotid stenosis Chronic kidney disease Coronary artery disease Diabetes mellitus (CMS/HCC) Heart murmur Hypertension Family History Problem Relation Name Age of Onset Coronary artery disease Father Other (CABG) Father Heart attack Father Coronary artery disease Brother Heart attack Brother Other (CABG) Brother Heart attack Paternal Grandfather Social History Tobacco Use Smoking status: Former Types: Cigarettes Substance Use Topics Alcohol use: Yes Comment: occasional Drug use: Never Allergies Allergen Reactions Codeine Nausea And Vomiting Noelle Inhibitors Unknown Other re (more content not included)...[facility] 07-17-2022 Evaluation note* Encounter Date Diagnosis Assessment Notes Treatment Notes Treatment Clinical Notes Jul, Chronic kidney disea se, stage 3b (ICD-10 - N18.32) He has a longstanding CKD due to the DM and HTN with baseline creatinine 1.7 to 2 mg/dL. I discussed with him the importance of good DM control to surround the progression of CKD. He has unremarkable Kidneys on renal US. He has no absolute contraindication for spinal surgery from renal standpoint. He will be at risk of SIRI due to the perioperative hemodynamic changes. I have explained this to the patient and he understood and verbalized information. Jul, Deuce hy kid w cr kid I-IV (ICD-10 - I12.9) Blood pressure is controlled. He appears to be euvolemic. Continue current dose of the losartan, carvedilol and amlodipine Jul, Diabetes mellitus wi th chronic kidney disease (ICD-10 - E11.22) His blood sugars are acceptable range. Patient was prescribed Farxiga to slow down the progression of the CKD but it is very expensive. I would recommend a to consider glipizide, glimepiride or Tradjenta to control his sugar. Continue losartan for renal protection. Jul, Anemia of renal dise ase (ICD-10 - D63.1) Hemoglobin is within the goal. We will continue Procrit 20,000 unit every 4 weeks. Jul, Hyperkalemia (ICD-10 - E87.5) Advised to continue low potassium diet. Jul, Secondary hyperparathyroidism (ICD-10 - N25.81) His PTH, calcium and phosphorus are within the goal. Vitamin D is still low. Continue Vit D 2000 units Daily Jul, Proteinuria (ICD-10 - R80.9) He has a nephrotic range proteinuria likely due to diabetic nephropathy. He has unremarkable work-up for paraproteinemia. Continue home losartan. Jul, Microscopic hematuri a (ICD-10 - R31.29) He has longstanding microscope hematuria and was seen by the urology in the past. He had a cystoscopy and reported was unremarkable. He does not want to have urology work-up for now. He will let me know if he changes mind. Jul, Hypomagnesemia (ICD- 10 - E83.42) He has hypomagnesemia possibly due to the renal magnesium wasting. Advised him to compliant with the magnesium to the risk of a cardiac arrhythmias. [facility] Other 03-16-2023 Evaluation note* Encounter Date Diagnosis Assessment Notes Treatment Notes Treatment Clinical Notes Jun, Chronic kidney disea se, stage 3b (ICD-10 - N18.32) He has a longstanding CKD due to the DM and HTN with baseline creatinine 1.7 to 2 mg/dL. I discussed with him the importance of good DM control to surround the progression of CKD. He has unremarkable Kidneys on renal US. He has no absolute contraindication for spinal surgery from renal standpoint. He will be at risk of SIRI due to the perioperative hemodynamic changes. I have explained this to the patient and he understood and verbalized information. Jun, Deuce hy kid w cr kid I-IV (ICD-10 - I12.9) Blood pressure is controlled. He appears to be euvolemic. Continue current dose of the losartan, carvedilol and amlodipine Jun, Diabetes mellitus wi th chronic kidney disease (ICD-10 - E11.22) His blood sugars are acceptable range. Continue metformin 500 mg twice daily plan to stop it if eGFR drops below 30ml/min. Continue losartan for renal protection. Jun, Anemia of renal dise ase (ICD-10 - D63.1) Hemoglobin is within the goal. We will continue Procrit 20,000 unit every 6 weeks. Jun, Hyperkalemia (ICD-10 - E87.5) Advised to continue low potassium diet. Jun, Secondary hyperparathyroidism (ICD-10 - N25.81) He has a secondary hyperparathyroidism due to CKD but his calcium phosphorus and vitamin D are within the goal. Continue Vit D 2000 units Daily Jun, Proteinuria (ICD-10 - R80.9) He has a nephrotic range proteinuria likely due to diabetic nephropathy. He has unremarkable work-up for paraproteinemia. Continue home losartan. Jun, Microscopic hematuri a (ICD-10 - R31.29) He has longstanding microscope hematuria and was seen by the urology in the past. He had a cystoscopy and reported was unremarkable. He does not want to have urology work-up for now. He will let me know if he changes mind. [facility] Other 02-02-2023 Evaluation note* Encounter Date Diagnosis Assessment Notes Treatment Notes Treatment Clinical Notes May, Anemia of renal disease (ICD-10 - D63.1) May, Chronic kidney disease, stage 3b (ICD-10 - N18.32) [facility] Other 01-30-2023 Evaluation note* Encounter Date Diagnosis Assessment Notes Treatment Notes Treatment Clinical Notes Apr, Chronic kidney disea se, stage 3b (ICD-10 - N18.32) He has a longstanding CKD due to the DM and HTN with baseline creatinine 1.7 to 2 mg/dL. His serum creatinine was 2.4 mg/dL but now improved to 2.1 mg/dL is still above his baseline. This may be due to the hemodynamic changes or progression of CKD. I discussed with him the importance of good DM control to surround the progression of CKD. He has unremarkable Kidneys on renal US. 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 He appears to be euvolemic. Continue current dose of the losartan, carvedilol and amlodipine Apr, Diabetes mellitus wi th chronic kidney disease (ICD-10 - E11.22) His blood sugars are acceptable range. Continue metformin 500 mg twice daily plan to stop it if eGFR drops below 30ml/min. Continue losartan for renal protection. Apr, Anemia of renal dise ase (ICD-10 - D63.1) Hemoglobin is below the goal but has adequate iron stores B12 and folate level. We will start Procrit 20,000 unit every 4 weeks. Apr, Hyperkalemia (ICD-10 - E87.5) Advised to continue low potassium diet. Apr, Secondary hyperparathyroidism (ICD-10 - N25.81) He has a secondary hyperparathyroidism due to CKD but his calcium phosphorus and vitamin D are within the goal. Continue Vit D 2000 units Daily Apr, Proteinuria (ICD-10 - R80.9) He has a nephrotic range proteinuria likely due to diabetic nephropathy. He has unremarkable work-up for paraproteinemia. Continue home losartan. Apr, Microscopic hematuri a (ICD-10 - R31.29) He has longstanding microscope hematuria and was seen by the urology in the past. He had a cystoscopy and reported was unremarkable. He does not want to have urology work-up for now. He will let me know if he changes mind. [facility] Encounter Date Diagnosis Assessment Notes Treatment Notes Treatment Clinical Notes Jan, History of colon polyps (ICD-10 - Z86.010) [facility] Other 09-08-2022 Evaluation note* Encounter Date Diagnosis Assessment Notes Treatment Notes Treatment Clinical Notes Dec, Chronic kidney disea se, stage 3b (ICD-10 - N18.32) He has a longstanding CKD due to the DM and HTN with baseline creatinine 1.7 to 2 mg/dL. I discussed with him the importance of good DM control to surround the progression of CKD. He has unremarkable Kidneys on renal US. Dec, Deuce hy kid w cr kid I-IV (ICD-10 - I12.9) Blood pressure is controlled. He appears to be euvolemic. Continue current dose of the losartan, carvedilol and amlodipine Dec, Diabetes mellitus wi th chronic kidney disease (ICD-10 - E11.22) His blood sugars are acceptable range. Continue metformin 500 mg twice daily as his EGFR is below 45 mm/min. Continue losartan for renal protection. Dec, Anemia of renal dise ase (ICD-10 - D63.1) Hemoglobin is below the goal but has adequate iron stores B12 and folate level. Continue to follow with GI for colonoscopy. We will start Procrit 20,000 unit every 6 weeks. Dec, Hyperkalemia (ICD-10 - E87.5) His potassium is back to normal. Advised to continue low potassium diet. Dec, Secondary hyperparathyroidism (ICD-10 - N25.81) He has a secondary hyperparathyroidism due to CKD but his calcium phosphorus and vitamin D are within the goal. Continue Vit D 2000 units Daily Dec, Proteinuria (ICD-10 - R80.9) He has a nephrotic range proteinuria likely due to diabetic nephropathy. Other differential diagnoses are paraproteinemia or hepatitis MPGN. I will do the work-up to rule out these d differential diagnoses. Continue home losartan. Dec, Microscopic hematuri a (ICD-10 - R31.29) He has longstanding microscope hematuria and was seen by the urology in the past. He had a cystoscopy and reported was unremarkable. He does not want to have urology work-up for now. He will let me know if he changes mind. [facility] Other 06-16-2022 Evaluation note* Encounter Date Diagnosis Assessment Notes Treatment Notes Treatment Clinical Notes Sep, Chronic kidney disea se, stage 3b (ICD-10 - N18.32) He has a longstanding CKD due to the DM and HTN with baseline creatinine 1.7 to 2 mg/dL. I discussed with him the importance of good DM control to surround the progression of CKD. He has unremarkable Kidneys on renal US. Sep, Deuce hy kid w cr kid I-IV (ICD-10 - I12.9) Blood pressure is controlled. He appears to be euvolemic. Continue current dose of the losartan, carvedilol and amlodipine Sep, Diabetes mellitus wi th chronic kidney disease (ICD-10 - E11.22) His blood sugars are acceptable range. I would recommend to decrease the dose of the metformin 500 mg twice daily as his EGFR is below 45 mm/min. He will benefit with SGLT2 inhibitors including Farxiga, Jardiance or Invokana. I have advised him to contact his PCP for adjustment of his diabetic medications. Sep, Anemia of renal dise ase (ICD-10 - D63.1) Hemoglobin is below the goal. Continue oral iron. We will repeat iron studies. Continue to follow with GI for colonoscopy Sep, Hyperkalemia (ICD-10 - E87.5) His potassium is back to normal. Advised to continue low potassium diet. Sep, Secondary hyperparathyroidism (ICD-10 - N25.81) He has Vit D deficiency but his calcium phosphorus and vitamin D are within the goal. I have advised him to increase Vit D 2000 units Daily Sep, Proteinuria (ICD-10 - R80.9) He has a nephrotic range proteinuria likely due to diabetic nephropathy. Other differential diagnoses are paraproteinemia or hepatitis MPGN. I will do the work-up to rule out these d differential diagnoses. Continue home losartan. [facility] Other 05-09-2022 Evaluation note* Encounter Date Diagnosis Assessment Notes Treatment Notes Treatment Clinical Notes August, Chronic kidney disea se, stage 3b (ICD-10 - N18.32) Thanks for referring Mr. Santos to our office for an evaluation and management of the CKD. As you know he has a longstanding CKD due to the DM and HTN with baseline creatinine 1.7 to 2 mg/dL. I discussed with him the importance of good DM control to surround the progression of CKD. I have ordered a renal ultrasound to evaluate the renal anatomy. I have ordered a UA and UPCR to evaluate for hematuria and proteinuria. August, Deuce hy kid w cr kid I-IV (ICD-10 - I12.9) Blood pressure is controlled. He appears to be euvolemic. 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 I would recommend to decrease the dose of the metformin 500 mg twice daily as his EGFR is below 45 mm/min. He will benefit with SGLT2 inhibitors including Farxiga, Jardiance or Invokana. I have advised him to contact his PCP for adjustment of his diabetic medications. August, Anemia of renal dise ase (ICD-10 - D63.1) Hemoglobin is below the goal. Continue oral iron. We will repeat iron studies. August, Hyperkalemia (ICD-10 - E87.5) His potassium is back to normal. Advised to continue low potassium diet. August, Secondary hyperparathyroidism (ICD-10 - N25.81) Calcium is within normal limit. We will check PTH and vitamin D. [facility] Other 05-05-2022 Evaluation note* Encounter Date Diagnosis Assessment Notes Treatment Notes Treatment Clinical Notes August, Asymptomatic stenosis of left carotid artery (ICD-10 - I65.22) We will continue with nonoperative medical management at this time. I did review the ultrasound results with the patient today. We will see him back in 1 year with repeat study. There is no indication for any operative intervention at this time. The patient understands agrees the plan. All his questions were addressed. I actually told the patient that I doubt that this will ever progress to need surgery based on the duplex studies today. However we should continue surveillance for several more years in my opinion. [facility] Other 09-06-2016 Evaluation note* Encounter Date Diagnosis Assessment Notes Treatment Notes Treatment Clinical Notes Dec, Carotid stenosis, bilateral (ICD-10 - I65.23) Rt 90%, Left 70-75%. We reviewed today's carotid duplex studies which remained stable showing no hemodynamically significant stenosis of the right and less than 70% on the left. He remains asymptomatic of his carotid occlusive disease and on good medical therapy with use of aspirin and statin medications daily. We will continue to follow on a routine basis and have him back to 6 months time with repeat studies. He knows to call us in the meantime with any issues or concerns whatsoever. [facility] Other Evaluation note* Diagnosis Enlarged prostate Hypertrophy of prostate without urinary obstruction and other lower urinary tract symptoms (LUTS) BPH with obstruction/lower urinary tract symptoms Hypertrophy of prostate with urinary obstruction and other lower urinary tract symptoms (LUTS) Abnormal digital rectal exam Other abnormal clinical finding Erectile dysfunction, unspecified erectile dysfunction type documented in this encounter [employer] Work Phone: evaluation noteNo assessment information [facility] Work Phone: Evaluation note* Diagnosis Spondylosis of lumbosacral region without myelopathy or radiculopathy Lumbosacral spondylosis without myelopathy Lumbar spondylosis Lumbosacral spondylosis without myelopathy Postlaminectomy syndrome, lumbar Postlaminectomy syndrome, lumbar region Spinal stenosis of lumbar region with neurogenic claudication Spinal stenosis, lumbar region, with neurogenic claudication documented in this encounter [email or web address] Work Phone: evaluation note* Diagnosis Osteopenia of lumbar spine documented in this encounter [employer] Phone: [email or web address] note* Diagnosis Spinal stenosis, lumbar region, without neurogenic claudication Right foot drop Other acquired deformity of ankle and foot documented in this encounter [employer] Phone: [email or web address] [facility]No [facility] Other Evaluation note* Diagnosis Examination for normal comparison for clinical research Examination of participant in clinical trial Lumbar spondylosis Lumbosacral spondylosis without myelopathy Spinal stenosis, unspecified spinal region Spondylolisthesis, unspecified spinal region documented in this encounter [employer] Phone: evaluation note* Diagnosis Lumbar spondylosis- Primary Lumbosacral spondylosis without myelopathy Lumbar stenosis with neurogenic claudication Spinal stenosis, lumbar region, with neurogenic claudication Lumbar stenosis with neurogenic claudication Spinal stenosis, lumbar region, with neurogenic claudication Primary hypertension Unspecified essential hypertension Type 2 diabetes mellitus with kidney complication, without long-term current use of insulin (HCC) Anemia due to chronic kidney disease Acute posthemorrhagic anemia documented in this encounter [employer] Phone: History and physical note Author Orlando Beaver [facility] April 16, 2022 9:33am Note Date/Time April 16, 2022 9: 33am [facility] [address] [place] [address] Gastroenterology H&P Signed Patient: Omer Santos MR#: [id number] : 1950 Acct:[id number] Age/Sex: 71 / M Adm Date: 3 Loc: Room: Type: [facility] Attending Dr: Orlando Beaver MD Copies to: MD Ruben Huertas MD~ Date of Service: 04/16/2022 HISTORY & PHYSICAL: Patient's history with special attention to the cardiovascular, pulmonary systems and the current problem was reviewed with the patient immediately prior to the procedure. Present medications and doses reviewed in the EMR. Allergies and pertinent laboratory tests were also reviewedat this time in the EMR. The physical examination, as below, was then performed. Indication, assessment and HPI: 71-year-old male presents for screening colonoscopy Family history of GI malignancy? No PHYSICAL EXAMINATION Mouth and Pharynx : Moist mucus membranes, normal dentition Cardiac: Regular rate, regular rhythm Pulmonary: Clear to auscultation bilaterally, no wheezing Neurological: Alert and oriented x3, no focal deficits noted Abdomen: Abdomen soft, non-tender REVIEW OF SYSTEMS Constitutional: Denies malaise, fevers Cardiovascular: Denies chest pain, palpitations Respiratory: Denies shortness of breath, wheezing Gastrointestinal: Per HPI Genitourinary: Denies dysuria, polyuria Musculoskeletal: Denies joint swelling, joint stiffness Neurological: Denies numbness, tingling Integumentary: Denies rashes, skin lesions Endocrine: Denies fatigue, weight loss Written informed consent obtained from the patient. Risks (including but not limited to perforation, infection, bloating, bleeding, need for emergent surgeryand loss of life), benefits and alternatives explained and questions answered. The patient verbalized understanding. Based on history patient is an appropriate candidate for the procedure. Orlando Beaver MD Documented By: Orlando Beaver MD 04/16/22931 Signed By: <Electronically signed by Orlando Beaver MD> 04/16/22932 [facility] Work Phone: History general Narrative - Reported* Type Description Date Medical History asthma Medical History diabetes mellitus Medical History Hypertension Medical History peripheral vascular disease Surgical History Procedure:Right enda rterectomty;Disease:carotid artery Surgical History tonsillectomy Surgical History Bilat caroitd artery angiography/Right ICA PLTA and Stent 02/2012 Surgical History Procedure:Back surge ry Lumbar decompresion;Disease: 2010 Surgical History Bilat caroitd artery angiograph y 12/16/2015 Surgical History Procedure:Carotid St ent Right;Disease:Carotid Stenosis 2011 Surgical History Procedure:Colonoscop y hyperplastic polyps 10/16/13;Disease:Screening Colonoscopy 2013 Surgical History Right carotid resect ion w/right common carotid to internal carotid artery Dacron bypass graft 01/02/2016 Surgical History Right carotid surger y Dr Messina Stent then Extracranial repair 01/02/2016 Surgical History Heart Cath/stent [facility] 01/2018 Surgical History heart cath 09/12/2018 Hospitalization History see surgical hx Hospitalization History ER- Acute Bronchitis 07/08 08/[address] [facility] Cardiac Issues 2017 [facility] Other Hisgfiu general Narrative - Reported* Type Description Date Medical History asthma Medical History diabetes mellitus Medical History Hypertension Medical History peripheral vascular disease Medical History CERVICAL SURGERY Surgical History Procedure:Right enda rterectomty;Disease:carotid artery Surgical History tonsillectomy Surgical History Bilat caroitd artery angiography/Right ICA PLTA and Stent 02/2012 Surgical History Procedure:Back surge ry Lumbar decompresion;Disease: 2010 Surgical History Bilat caroitd artery angiograph y 12/16/2015 Surgical History Procedure:Carotid St ent Right;Disease:Carotid Stenosis 2011 Surgical History Procedure:Colonoscop y hyperplastic polyps 10/16/13;Disease:Screening Colonoscopy 2013 Surgical History Right carotid resect ion w/right common carotid to internal carotid artery Dacron bypass graft 01/02/2016 Surgical History Right carotid surger y Dr Messina Stent then Extracranial repair 01/02/2016 Surgical History Heart Cath/stent [facility] 01/2018 Surgical History heart cath 09/12/2018 Hospitalization History see surgical hx Hospitalization History ER- Acute Bronchitis 07/08 08/[address] [facility] Cardiac Issues 2017 [facility] Other History general Narrative - Reported* Type Description Date Medical History asthma Medical History diabetes mellitus Medical History Hypertension Medical History peripheral vascular disease Medical History CERVICAL SURGERY Surgical History Procedure:Right enda rterectomty;Disease:carotid artery Surgical History tonsillectomy Surgical History Bilat caroitd artery angiography/Right ICA PLTA and Stent 02/2012 Surgical History Procedure:Back surge ry Lumbar decompresion;Disease: 2010 Surgical History Bilat caroitd artery angiograph y 12/16/2015 Surgical History Procedure:Carotid St ent Right;Disease:Carotid Stenosis 2011 Surgical History Procedure:Colonoscop y hyperplastic polyps 10/16/13;Disease:Screening Colonoscopy 2013 Surgical History Right carotid resect ion w/right common carotid to internal carotid artery Dacron bypass graft 01/02/2016 Surgical History Right carotid surger y Dr Messina Stent then Extracranial repair 01/02/2016 Surgical History Heart Cath/stent [facility] 01/2018 Surgical History heart cath 09/12/2018 Surgical History CERVICAL FUSION X3 01/31/2023 Hospitalization History see surgical hx Hospitalization History ER- Acute Bronchitis 07/08 08/[address] [facility] Cardiac Issues 2017 [facility] Other Hospital Discharge instructions Additional Instructions DISCHARGE INSTRUCTIONS FOR COLONOSCOPY WHAT TO EXPECT: - You may feel full, gassy or cramping after your procedure. In some cases, this may be from a few hours to a day. Walking may help relieve the discomfort. - If you have polyp(s) removed you may note some minor bloody discharge after your first bowel movements. - You should begin to recover from anesthesia within 1 hour of the procedure, however may feel groggy for the next 24 hours. DO's AND DON'Ts: - Call your doctor right away if you have a hard abdomen, sever pain, are passing lots of bright red blood or clots. - Call your doctor if you develop any rashes, hives or difficulty breathing. - Let your doctor know if you have not had a bowel movement by 3 days after your procedure. - If you take 81 mg aspirin for your heart it is safe to resume this medication. - If you take other blood thinner medications your doctor will instruct you when these can safely be resumed. - Do NOT drive for 24 hours. - Do NOT operate machinery such as power tools, lawn mowers, snow blowers, sewing machines, etc. for 24 hours. - Avoid alcoholic beverages and drugs for allergies, nerves, or sleep. - Do NOT stay alone. Do NOT leave your child unattended. - Do NOT make important personal or business decisions or sign any legal documents. - Eat solid foods and drink liquids in smaller amounts than usual until normal appetite returns. If you should experience an upset stomach, liquids high in sugar content (soda, Aba-Aid, non-acid juices) are recommended. - You can resume normal activities tomorrow. FOLLOW UP & RECOMMENDATIONS: -Dr. Beaver's office will notify you if you need another colonoscopy -Notify the doctor if you have any problems. -Follow up with PCP. 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 Name: Omer Santos Admitted: 01/17/2018 Discharged: 01/18/2018 Date of : 1950 Physician: Gaby Oritz MD DISCHARGE SUMMARY PRIMARY CARE PHYSICIAN: Ruben Luo M.D. PRIMARY DIAGNOSIS: Non-ST segment elevation myocardial infarction. SECONDARY DIAGNOSES: 1. Intermediately elevated troponin. 2. Hypertension. 3. Type 2 diabetes mellitus. 4. Normocytic anemia. 5. Asthma. 6. History of carotid stenosis, status post stents. PROCEDURES ON THIS ADMISSION: Cardiac cath. CONSULTATIONS: Cardiology. HOSPITAL COURSE: The patient is a 67-year-old male, who presented initially to [facility] complaining of chest pain, stating that around 5 p.m. yesterday, he woke from a nap, experiencing pain radiating to his jaw and then on the left side of his chest. The patient reports that when he was trying to walk up some stairs, it exacerbated his pain and persisted for about an hour. Initial workup at [facility] was negative and r (more content not included)... Chief Complaint and Reason for Visit Chief Complaint Hx of Colon Polyps Chief Complaint Hx of Colon Polyps Hx of Colon Polyps Chief Complaint i65.23 Reason for Referral Specialty Diagnoses / Procedures Referred By Contac t Referred To Contact Radiology Diagnoses Spinal stenosis, lumbar region, without neurogenic claudication Right foot drop Procedures CT LUMBAR SPINE WO CONTRAST Sharon Ellison PA-C [address] [place] [address] Referral ID Status Reason Start Date Expiration Date Visits Re quested Visits Authorized [id number] Closed 05/22/2022 05/22/2023 1 1 Specialty Diagnoses / Procedures Referred By Contac t Referred To Contact Radiology Diagnoses Osteopenia of lumbar spine Procedures DEXA BONE DENSITY AXIAL SKELETON Sharon Ellison PA-C [address] [place] [address] Referral ID Status Reason Start Date Expiration Date Visits Re quested Visits Authorized [id number] Closed 05/22/2022 05/22/2023 1 1 Specialty Diagnoses / Procedures Referred By Contac t Referred To Contact Radiology Diagnoses Spondylosis of lumbosacral region without myelopathy or radiculopathy Lumbar spondylosis Postlaminectomy syndrome, lumbar Spinal stenosis of lumbar region with neurogenic claudication Procedures MRI LUMBAR SPINE WO CONTRAST Osiel Elaine, CALL CENTER NURSE - PERSONAL FINANCIAL COUNSELOR [address] [place] [address] Referral ID Status Reason Start Date Expiration Date Visits Re quested Visits Authorized [id number] Closed 03/30/2022 03/30/2023 1 1 Additional Source Comments (unrecognized sect ion and content) No Status Records FoundNo Status Records FoundNo Status Records FoundNo Status Records FoundNo Status Records FoundNo Status Records FoundNo Status Records Found INFORMATION SOURCE (unrecogn ized section and content) DATE CREATED AUTHOR 12/02/2018 [facility] DATE CREATED AUTHOR AUTHOR'S ORGANIZ ATION 07/27/2022 [facility] DATE CREATED AUTHOR AUTHOR'S ORGANIZ ATION 08/16/2022 [facility] DATE CREATED AUTHOR AUTHOR'S ORGANIZ ATION 01/13/2023 [facility] DATE CREATED AUTHOR AUTHOR'S ORGANIZ ATION 02/04/2023 [facility] DATE CREATED AUTHOR AUTHOR'S ORGANIZ ATION 02/22/2023 [facility] DATE CREATED AUTHOR AUTHOR'S ORGANIZ ATION 04/13/2023 [facility] REASON FOR VISIT (unrecogniz ed section and content) Specialty Diagnoses / Procedures Referred By Contac t Referred To Contact Radiology Diagnoses Spondylosis of lumbosacral region without myelopathy or radiculopathy Lumbar spondylosis Postlaminectomy syndrome, lumbar Spinal stenosis of lumbar region with neurogenic claudication Procedures MRI LUMBAR SPINE WO CONTRAST Osiel Elaine, CALL CENTER NURSE - PERSONAL FINANCIAL COUNSELOR [address] [place] [address] Referral ID Status Reason Start Date Expiration Date Visits Re quested Visits Authorized [id number] Closed 03/30/2022 03/30/2023 1 1 Specialty Diagnoses / Procedures Referred By Contac t Referred To Contact Radiology Diagnoses Osteopenia of lumbar spine Procedures DEXA BONE DENSITY AXIAL SKELETON Sharon Ellison PA-C [address] [place] [address] [place] [address] Referral ID Status Reason Start Date Expiration Date Visits Re quested Visits Authorized [id number] Closed 05/22/2022 05/22/2023 1 1 Specialty Diagnoses / Procedures Referred By Contac t Referred To Contact Radiology Diagnoses Spinal stenosis, lumbar region, without neurogenic claudication Right foot drop Procedures CT LUMBAR SPINE WO CONTRAST Sharon Ellison PA-C [address] [place] [address] Referral ID Status Reason Start Date Expiration Date Visits Re quested Visits Authorized [id number] Closed 05/22/2022 05/22/2023 1 1 Specialty Diagnoses / Procedures Referred By Contac t Referred To Contact Radiology Diagnoses Spinal stenosis, lumbar region, without neurogenic claudication Right foot drop Procedures CT THORACIC SPINE WO CONTRAST Sharon Ellison PA-C [address] [place] [address] Referral ID Status Reason Start Date Expiration Date Visits Re quested Visits Authorized [id number] Closed 05/22/2022 05/22/2023 1 1 Specialty Diagnoses / Procedures Referred By Contac t Referred To Contact Diagnoses Lumbar spondylosis Spinal stenosis, unspecified spinal region Spondylolisthesis, unspecified spinal region Lumbar spondylosis [M47.816] Spinal stenosis, unspecified spinal region [M48.00] Spondylolisthesis, unspecified spinal region [M43.10] Procedures NE ARTHRODESIS POSTERIOR/PSTLAT TQ 1NTRSPC LUMBAR NE ARTHRODESIS PST/PSTLAT TQ 1NTRSPC EA ADDL NTRSPC NE ARTHRODESIS SI JT OPN W/OBTAINING B1 GRF INSTRMJ NE [place] FACETECTOMY&FORAMOT 1 VRT SGM EA ADDL SGM NE POSTERIOR SEGMENTAL INSTRUMENTATION 3-6 VRT SEG NE ALLOGRAFT FOR SPINE SURGERY ONLY MORSELIZED L2-S1 REVISION DECOMPRESSION WITH L2-PELVIS FUSION Gabe Harris MD [address] [place] [address] [facility] [address] [place] [address] Referral ID Status Reason Start Date Expiration Date Visits Re quested Visits Authorized [id number] 1 1 Care Teams (unrecognized sec tion and content) Team Status: Active Member Role Status Dates Ruben Luo MD Primary Care Provider Active Team Status: Inactive Member Role Status Dates Ruben Luo MD Primary Care Provider Active Ney Roman MD Attending Provider Active Team Status: Inactive Member Role Status Dates Ruben Luo MD Primary Care Provider Active Orlando Beaver MD Attending Provider Active Patient Service Technician Pst Relationship Specialty Start Date End Date Ruben Luo MD PCP - General 09/15/13 Patient Service Technician Pst Relationship Specialty Start Date End Date Ruben Luo MD PCP - General 09/15/13 Patient Service Technician Pst Relationship Specialty Start Date End Date Ruben Luo MD PCP - General 09/15/13 Patient Service Technician Pst Relationship Specialty Start Date End Date Ruben Luo MD PCP - General 09/15/13 Goals (unrecognized section and content) Goals may be documented in a n alternate section Ordered Prescriptions (unrec ognized section and content) Prescription Sig Dispensed Refills Start Date End Da te traMADol (ULTRAM) 50 MG tabletIndications:Lumbar stenosis with neurogenic claudication Take 1 tablet by mouth every 6 hours as needed for Pain for up to 7 days. Max Daily Amount: 200 mg 28 tablet 0 07/26/2022 08/02/2022 doxazosin (CARDURA) 8 MG tablet Take 1 tablet by mouth daily 30 tablet 3 07/27/2022 glipiZIDE (GLUCOTROL) 5 MG tablet Take 1 tablet by mouth every morning (before breakfast) 60 tablet 3 07/27/2022 carvedilol (COREG) 12.5 MG tablet Take 1 tablet by mouth 2 times daily (with meals) 60 tablet 3 07/25/2022 ferrous sulfate (IRON 325) 325 (65 Fe) MG tablet Take 1 tablet by mouth 2 times daily (with meals) 30 tablet 3 07/25/2022 07/25/2022 alogliptin (NESINA) 6.25 MG TABS tablet Take 1 tablet by mouth daily 120 tablet 1 07/26/2022 07/26/2022 Scheduled Active and Recently Administ ered Medications (unrecognized section and content) Medication Order 07/24/2022 07/25/2022 07/26/2022 alogliptin (NESINA) tablet 6.25 mg 6.25 mg, Oral, DAILY, First dose on Sat07/24/22 at 1100, Until Discontinued, Substituted for sitagliptin (Januvia). 1226 (Given - Provider: Yomaira Lynn RN) 0845 (Given - Provider: Justa Tobias RN) 0823 (Given - Provider: Irene Sauer RN) amLODIPine (NORVASC) tablet 10 mg 10 mg, Oral, DAILY, First dose (after last modification) on Sat07/21/22 at 1300, Until Discontinued 0805 (Given - Provider: Yomaira Lynn RN) 0845 (Given - Provider: Justa Tobias RN) 0823 (Given - Provider: Irene Sauer RN) atorvastatin (LIPITOR) tablet 40 mg 40 mg, Oral, EVERY EVENING, First dose on Billie 07/19/22 at 1830, Until Discontinued 1848 (Given - Provider: Justa Haney RN) 1819 (Given - Provider: Justa Tobias, MAMIE) 1641 (Given - Provider: Irene Sauer RN) bisacodyl (DULCOLAX) EC tablet 5 mg 5 mg, Oral, DAILY, First dose on 07/21/22 at 0900, Until Discontinued, Do not crush or break., Post-op 0805 (Given - Provider: Yomaira Lynn RN) 0845 (Given - Provider: Justa Tobias RN) 0823 (Given - Provider: Irene Sauer RN) carvedilol (COREG) tablet 12.5 mg 12.5 mg, Oral, 2 TIMES DAILY WITH MEALS, First dose (after last modification) on Billie 07/19/22 at 1830, Until Discontinued, Administer with food to minimize the risk of orthostatic hypotension 0757 (Given - Provider: Yomaira Lynn RN)1631 (Given - Provider: Justa Haney RN) 0845 (Given - Provider: Justa Tobias, RN)1724 (Given - Provider: Justa Tobias RN) 0823 (Given - Provider: Irene Sauer RN)164 (Given - Provider: Irene Sauer RN) Dexamethasone Sodium Phosphate injection 8 mg (COMPLETED) 8 mg, IntraVENous, EVERY 8 HOURS, First dose on Sat07/23/22 at 1530, For 6 doses 0758 (Given - Provider: Yomaira Lynn RN)1630 (Given - Provider: Justa Haney RN)2225 (Given - Provider: Juan Bermeo RN) 0844 (Given - Provider: Justa Tobias RN) doxazosin (CARDURA) tablet 4 mg (CANCELED) 4 mg, Oral, EVERY MORNING, First dose on Sat07/20/22 at 0900, Until Discontinued 08 (Given - Provider: Yomaira Lynn RN) 0845 (Given - Provider: Justa Tobias RN) doxazosin (CARDURA) tablet 4 mg (COMPLETED) 4 mg, Oral, ONCE, 1 dose, On Sat07/25/22 at 1515 1559 (Given - Provider: Justa Tobias RN) doxazosin (CARDURA) tablet 8 mg 8 mg, Oral, DAILY, First dose (after last modification) on Sat07/26/22 at 0900, Until Discontinued 08 (Given - Provider: Irene Sauer RN) ferrous sulfate (IRON 325) tablet 325 mg 325 mg, Oral, 2 TIMES DAILY WITH MEALS, First dose on Sat07/22/22 at 2000, Until Discontinued 0757 (Given - Provider: Yomaira Lynn RN)163 (Given - Provider: Justa Haney RN) 0845 (Given - Provider: Justa Tobias RN)1725 (Given - Provider: Justa Tobias RN) 0823 (Given - Provider: Irene Sauer RN)164 (Given - Provider: Irene Sauer RN) glipiZIDE (GLUCOTROL) tablet 5 mg 5 mg, Oral, DAILY BEFORE BREAKFAST, First dose on Sat07/25/22 at 1500, Until Discontinued 1559 (Given - Provider: Justa Tobias RN) 0823 (Given - Provider: Irene Sauer RN) insulin lispro (HUMALOG) injection vial 0-16 Units 0-16 Units, SubCUTAneous, 3 TIMES DAILY WITH MEALS, First dose on Sat07/24/22 at 1200, Until Discontinued, High Dose Corrective Algorithm Glucose: Dose: 70-199 No Insulin 200-249 4 Units 250-299 8 Units 300-349 12 Units Over 349 16 Units and notify physician 1211 (Given - Provider: Yomaira Lynn RN)1631 (Given - Provider: Justa Haney RN - Comment: BS: 392) 0845 (Given - Provider: Justa Tobias RN)1237 (Given - Provider: Justa Tobias RN)1723 (Given - Provider: Justa Tobias RN) 0824 (Given - Provider: Irene Sauer RN)1136 (Given - Provider: Irene Sauer RN)1642 (Given - Provider: Irene Sauer RN) insulin lispro (HUMALOG) injection vial 0-4 Units (CANCELED) 0-4 Units, SubCUTAneous, 3 TIMES DAILY WITH MEALS, First dose on Sat07/19/22 at 1830, Until Discontinued, Corrective Low Dose Algorithm Glucose: Dose: 70-199 No Insulin 200-249 1 Unit 250-299 2 Units 300-349 3 Units Over 349 4 Units and notify physician 0924 (Given - Provider: Yomaira Lynn RN) insulin lispro (HUMALOG) injection vial 0-4 Units 0-4 Units, SubCUTAneous, NIGHTLY, First dose on Sat07/24/22 at 2100, Until Discontinued, If continuous tube feedings/TPN/NPO, give correction dose based on result, no reduction in dose. If eating or bolus tube feeding: Corrective Bedtime Algorithm Glucose: Dose: 70-299 No Insulin 300-349 4 Units Over 349 4 Units and notify physician 2112 (Given - Provider: Juan Bermeo RN) 2109 (Given - Provider: Juan Bermeo RN - Comment: blood glucose is 334) 2099 (Due) losartan (COZAAR) tablet 50 mg 50 mg, Oral, DAILY, First dose on Sat07/19/22 at 1615, Until Discontinued 08 (Given - Provider: Yomaira Lynn RN) 0845 (Given - Provider: Justa Tobias RN) 0823 (Given - Provider: Irene Sauer RN) magnesium oxide (MAG-OX) tablet 400 mg 400 mg, Oral, DAILY, First dose on Billie 07/19/22 at 1830, Until Discontinued 0805 (Given - Provider: Yomaira Lynn RN) 0900 (Given - Provider: Justa Tobias RN) 0823 (Given - Provider: Irene Sauer RN) polyethylene glycol (GLYCOLAX) packet 17 g 17 g, Oral, DAILY, First dose on 07/21/22 at 0900, Until Discontinued, Stir and dissolve one packet of powder (17 g) in any 4 to 8 ounces of beverage (cold, hot or room temperature) then drink, Post-op 0810 (Not Given - Provider: Yomaira Lynn RN - Reason: Patient/family refused) 0859 (Not Given - Provider: Justa Tobias RN - Reason: Patient/family refused) 0840 (Not Given - Provider: Irene Sauer RN - Reason: Patient/family refused) sennosides-docusate sodium (SENOKOT-S) 8.6-50 MG tablet 1 tablet 1 tablet, Oral, 2 TIMES DAILY, First dose on Sat07/20/22 at 2100, Until Discontinued, Post-op 0807 (Given - Provider: Yomaira Lynn RN)2223 (Not Given - Provider: Juan Bermeo RN - Reason: Patient/family refused) 0845 (Given - Provider: Justa Tobias RN)2214 (Not Given - Provider: Juan Bermeo RN - Reason: Patient/family refused) 0824 (Given - Provider: Irene Sauer RN)2100 (Due) sodium chloride flush 0.9 % injection 5-40 mL 5-40 mL, IntraVENous, EVERY 12 HOURS SCHEDULED (2 times per day), First dose on Sat07/20/22 at 2100, Until Discontinued, For Line Patency: Peripheral IV = 5 mL; Midline or Central Line = 10 mL/lumen. If following IV push medication, administer flush at same rate as the IV push. Flush volume is determined by type of infusion therapy being given. For non-viscous solutions use: Peripheral IV = 5 mL Midline or Central Line = 10 mL/lumen For viscous solutions (i.e. blood components, parenteral nutrition, contrast media, or after obtaining blood sample) use: Peripheral IV = 10 mL Midline or Central Line = 20 mL/lumen, Post-op 0805 (Not Given - Provider: Yomaira Lynn RN - Reason: IV Fluid Infusing)2223 (Given - Provider: Juan Bermeo RN) 0900 (Not Given - Provider: Justa Tobias RN - Reason: IV Fluid Infusing)2213 (Given - Provider: Juan Bermeo RN) 0824 (Given - Provider: Irene Sauer RN)2100 (Due) sodium zirconium cyclosilicate (LOKELMA) oral suspension 10 g (COMPLETED) 10 g, Oral, ONCE, 1 dose, On Sat07/24/22 at 0830, Empty entire contents of the packet(s) into a glass with 3 tablespoons (45 mL) of water. Stir well and drink immediately; if powder remains in the glass, add water, stir and drink immediately; repeat until no powder remains. Administer other oral medications 2 hours before or 2 hours after dose. 09 (Given - Provider: Yomaira Lynn RN) sodium zirconium cyclosilicate (LOKELMA) oral suspension 10 g (COMPLETED) 10 g, Oral, ONCE, 1 dose, On Sat07/25/22 at 1500, Empty entire contents of the packet(s) into a glass with 3 tablespoons (45 mL) of water. Stir well and drink immediately; if powder remains in the glass, add water, stir and drink immediately; repeat until no powder remains. Administer other oral medications 2 hours before or 2 hours after dose. 1605 (Given - Provider: Justa Tobias RN) Continuous Medication Order 07/24/2022 07/25/2022 07/26/2022 0.9 % sodium chloride infusion (CANCELED) IntraVENous, at 50 mL/hr, CONTINUOUS, Starting on Sat07/23/22 at 1900 0208 (New Bag - Provider: Jolynn Davis RN) PRN Medication Order 07/24/2022 07/25/2022 07/26/2022 0.9 % sodium chloride infusion IntraVENous, at 240 mL/hr, Administer over 10 Minutes, PRN, blood administration, Starting on Billie 07/19/22 at 1142, For 1 dose, For use in priming line prior to transfusion (prime via gravity) and flush line post transfusion ONLY. Discontinue once line has been cleared of remaining blood product. 0.9 % sodium chloride infusion IntraVENous, at 5-250 mL/hr, PRN, if patient receiving piggyback infusions and maintenance fluids are not ordered OR KVO fluids to protect IV site / prevent frequent line interruptions/ long duration, Starting on Sat07/20/22 at 1712, For piggyback infusion, administer at same rate as piggyback for a total of 25 mL. Enter 25 mL into dose field and piggyback rate into rate field of order. If piggyback is infusing at a rate less than 100 mL/hr, enter 25 mL into dose field and 100 mL/hr into rate field of order. For KVO fluids, enter rate of 20 mL/hr or less into rate field of order., Post-op acetaminophen (TYLENOL) tablet 650 mg 650 mg, Oral, EVERY 6 HOURS PRN, Starting on Sat07/19/22 at 1149, Until Discontinued, Pain Mild (1-3), Fever, Maximum dose of acetaminophen is 4000 mg from all sources in 24 hours. albuterol (PROVENTIL) nebulizer solution 2.5 mg 2.5 mg, Nebulization, EVERY 4 HOURS PRN, Starting on [facility] 07/21/22 at 0820, Until Discontinued, Wheezing, Initiate RT Bronchodilator Protocol: Yes - Inpatient Protocol albuterol sulfate HFA (PROVENTIL;VENTOLIN;PROAIR) 108 (90 Base) MCG/ACT inhaler 2 puff 2 puff, Inhalation, EVERY 6 HOURS PRN, Starting on Sat07/20/22 at 1712, Until Discontinued, Wheezing, Initiate RT Bronchodilator Protocol: Yes - Inpatient Protocol bisacodyl (DULCOLAX) suppository 10 mg 10 mg, Rectal, DAILY PRN, Starting on Sat07/20/22 at 1712, Until Discontinued, Constipation, First line therapy for constipation, Post-op dextrose 10 % infusion IntraVENous, at 100 mL/hr, CONTINUOUS PRN, if blood glucose remains LESS THAN 70 mg/dL after 2 dextrose 10% intravenous boluses or administration of glucagon, Starting on Billie 07/19/22 at 1757, If blood glucose fails to stabilize after 2 dextrose 10% intravenous boluses or glucagon administration, start dextrose 10% infusion at 100 mL/hour and repeat blood glucose at 30 and 60 minutes. If blood glucose is GREATER THAN 70 mg/dL after 60 minutes, discontinue dextrose 10% infusion. dextrose bolus 10% 125 mL(Linked Group 1) 125 mL, IntraVENous, at 937.5 mL/hr, Administer over 8 Minutes, PRN, Other, Blood glucose 40 - 69 mg/dL and patient NOT ALERT or NPO, Starting on Billie 07/19/22 at 1757, Repeat blood glucose in 15 minutes. If blood glucose remains LESS THAN 70 mg/dL, repeat treatment and recheck blood glucose in 15 minutes x 2. If using glycemic management system, dose as instructed per system. If blood glucose remains LESS THAN 70 mg/dL after 2 intravenous boluses start dextrose 10% at 100 mL/hour and notify provider. dextrose bolus 10% 250 mL(Linked Group 1) 250 mL, IntraVENous, at 937.5 mL/hr, Administer over 16 Minutes, PRN, Other, Blood glucose LESS THAN 40 mg/dL and patient NOT ALERT or NPO, Starting on Billie 07/19/22 at 1757, Repeat blood glucose in 15 minutes. If blood glucose remains LESS THAN 70 mg/dL, repeat treatment and recheck blood glucose in 15 minutes x 2. If using glycemic management system, dose as instructed per system. If blood glucose remains LESS THAN 70 mg/dL after 2 intravenous boluses start dextrose 10% at 100 mL/hour and notify provider. glucagon (rDNA) injection 1 mg 1 mg, SubCUTAneous, PRN, Starting on Billie 07/19/22 at 1757, Until Discontinued, Low blood sugar, Blood glucose LESS THAN 70 mg/dL and patient NOT ALERT or NPO and does not have IV access., After administration, attempt intravenous access and start dextrose 10% at 100 mL/hr. Repeat blood glucose in 15 minutes x 2 and notify provider. glucose chewable tablet 16 g 16 g (4 tablet), Oral, PRN, Starting on Billie 07/19/22 at 1757, Until Discontinued, Low blood sugar, If blood glucose is LESS THAN 70 mg/dL and patient is alert and tolerating oral. Give 4 tablets (16g) Repeat blood glucose in 15 minutes. If blood glucose is LESS THAN 70 mg/dL, repeat treatment and recheck blood glucose in 15 minutes x 2. If blood glucose remains LESS THAN 70 mg/dL, notify provider. hydrALAZINE (APRESOLINE) injection 10 mg 10 mg, IntraVENous, EVERY 4 HOURS PRN, Starting on Billie 07/19/22 at 1536, Until Discontinued, High Blood Pressure, for SBP greater than 160 0845 (Given - Provider: Justa Tobias, MAMIE) 0619 (Given - Provider: Juan Bermeo RN) morphine (PF) injection 2 mg 2 mg, IntraVENous, EVERY 4 HOURS PRN, Starting on Billie 07/19/22 at 1141, Until Discontinued, Pain Severe (7-10), If oral and IV narcotics ordered, use oral first and only use IV if oral is ineffective or cannot take oral. Do Not give oral and IV within 1 hour of each other unless specifically ordered. nitroGLYCERIN (NITROSTAT) SL tablet 0.4 mg 0.4 mg, SubLINGual, EVERY 5 MIN PRN, Starting on Sat07/19/22 at 1759, Until Discontinued, Chest pain, Place 1 tablet under tongue upon chest pain, wait 5 minutes and may repeat up to 3 doses in 15 minutes. Do not crush or break. ondansetron (ZOFRAN) injection 4 mg(Linked Group 2) 4 mg, IntraVENous, EVERY 6 HOURS PRN, Starting on Sat07/20/22 at 1712, Until Discontinued, Nausea, Vomiting, Administer if oral route cannot be used., Post-op ondansetron (ZOFRAN-ODT) disintegrating tablet 4 mg(Linked Group 2) 4 mg, Oral, EVERY 8 HOURS PRN, Starting on Sat07/20/22 at 1712, Until Discontinued, Nausea, Vomiting, Post-op oxyCODONE-acetaminophen (PERCOCET) 5-325 MG per tablet 1 tablet(Linked Group 3) 1 tablet, Oral, EVERY 4 HOURS PRN, Starting on Sat07/20/22 at 2137, Until Discontinued, Pain Moderate (4-6), Maximum dose of acetaminophen is 4000 mg from all sources in 24 hours. oxyCODONE-acetaminophen (PERCOCET) 5-325 MG per tablet 2 tablet(Linked Group 3) 2 tablet, Oral, EVERY 4 HOURS PRN, Starting on Sat07/20/22 at 2137, Until Discontinued, Pain Severe (7-10), Maximum dose of acetaminophen is 4000 mg from all sources in 24 hours. sodium chloride flush 0.9 % injection 5-40 mL 5-40 mL, IntraVENous, PRN, Starting on Sat07/20/22 at 1712, Until Discontinued, Line Care, After every IV line use, For Line Patency: Peripheral IV = 5 mL; Midline or Central Line = 10 mL/lumen. If following IV push medication, administer flush at same rate as the IV push. Flush volume is determined by type of infusion therapy being given. For non-viscous solutions use: Peripheral IV = 5 mL Midline or Central Line = 10 mL/lumen For viscous solutions (i.e. blood components, parenteral nutrition, contrast media, or after obtaining blood sample) use: Peripheral IV = 10 mL Midline or Central Line = 20 mL/lumen, Post-op sodium phosphate (FLEET) rectal enema 1 enema 1 enema, Rectal, DAILY PRN, Starting on Sat07/20/22 at 1712, Until Discontinued, Constipation, Second line therapy for constipation, After 24 hours, if no result from first line PRN therapy, give second line therapy in combination with first line therapy., Post-op traMADol (ULTRAM) tablet 50 mg 50 mg, Oral, EVERY 6 HOURS PRN, Starting on 07/23/22 at 1442, Until Discontinued, Pain Moderate (4-6), Pain Severe (7-10) Linked Groups Order Group 1: dextrose bolus 10% 125 mLJump to med 125 mL, IntraVENous, at 937.5 mL/hr, Administer over 8 Minutes, PRN, Other, Blood glucose 40 - 69 mg/dL and patient NOT ALERT or NPO, Starting on Billie 07/19/22 at 1757
Repeat blood glucose in 15 minutes. If blood glucose remains LESS THAN 70 mg/dL, repeat treatment and recheck blood glucose in 15 minutes x 2. If using glycemic management system, dose as instructed per system. If blood glucose remains LESS THAN 70 mg/dL after 2 intravenous boluses start dextrose 10% at 100 mL/hour and notify provider.
Or dextrose bolus 10% 250 mLJump to med 250 mL, IntraVENous, at 937.5 mL/hr, Administer over 16 Minutes, PRN, Other, Blood glucose LESS THAN 40 mg/dL and patient NOT ALERT or NPO, Starting on Billie 07/19/22 at 1757
Repeat blood glucose in 15 minutes. If blood glucose remains LESS THAN 70 mg/dL, repeat treatment and recheck blood glucose in 15 minutes x 2. If using glycemic management system, dose as instructed per system. If blood glucose remains LESS THAN 70 mg/dL after 2 intravenous boluses start dextrose 10% at 100 mL/hour and notify provider.
Group 2: ondansetron (ZOFRAN-ODT) disintegrating tablet 4 mgJump to med 4 mg, Oral, EVERY 8 HOURS PRN, Starting on Sat07/20/22 at 1712, Until Discontinued, Nausea, Vomiting, Post-op Or ondansetron (ZOFRAN) injection 4 mgJump to med 4 mg, IntraVENous, EVERY 6 HOURS PRN, Starting on Sat07/20/22 at 1712, Until Discontinued, Nausea, Vomiting
Administer if oral route cannot be used.
Post-op Group 3: oxyCODONE-acetaminophen (PERCOCET) 5-325 MG per tablet 1 tabletJump to med 1 tablet, Oral, EVERY 4 HOURS PRN, Starting on Sat07/20/22 at 2137, Until Discontinued, Pain Moderate (4-6)
Maximum dose of acetaminophen is 4000 mg from all sources in 24 hours.
Or oxyCODONE-acetaminophen (PERCOCET) 5-325 MG per tablet 2 tabletJump to med 2 tablet, Oral, EVERY 4 HOURS PRN, Starting on Sat07/20/22 at 2137, Until Discontinued, Pain Severe (7-10)
Maximum dose of acetaminophen is 4000 mg from all sources in 24 hours.
FOR RECORDS PERTAINING TO PATIENTS WHO ARE OR HAVE BEEN ENROLLED IN A CHEMICAL DEPENDENCY/SUBSTANCEABUSE PROGRAM, SOME INFORMATION MAY BE OMITTED. This clinical summary was aggregated from multiple sources. Caution should be exercised in using it in the provision of clinical care. This summary normalizes information from multiple sources, and as a consequence, information in this document may materially change the coding, format and clinical context of patient data. In addition, data may be omitted in some cases. CLINICAL DECISIONS SHOULD BE BASED ON THE PRIMARY CLINICAL RECORDS. [facility]. provides no warranty or guarantee of the accuracy or completeness of information in this document.
== END 2023-04-15 10:41 | disposition home or self-care (01) ==
LOC: LAB 10:40
PROVIDERS: PCP Family Medicine; Visit Provider Internal Medicine
DX: I12.9 Hypertensive chronic kidney disease with stage 1 through stage 4 chronic kidney disease, or unspecified chronic kidney disease (principal); N18.4 Chronic kidney disease, stage 4 (severe); D63.1 Anemia in chronic kidney disease; E11.22 Type 2 diabetes mellitus with diabetic chronic kidney disease; E87.5 Hyperkalemia; N25.81 Secondary hyperparathyroidism of renal origin; R80.9 Proteinuria, unspecified; R31.29 Other microscopic hematuria; E83.42 Hypomagnesemia
CPT/HCPCS: 36415; 85027

== ENCOUNTER 2023-05-04 10:45 | Outpatient (OUT) | payer MEDICARE, OTHER, SELFPAY ==
--- OUTSIDE RECORDS SUMMARY | 2023-05-04 10:48 | XMS_ITS | CCD ---
Author Name Unknown Address [address] [place] [address] Organization [facility] Care Team Providers Care Construction Assistant Name Role Phone UNKNOWN, PROVIDER Admitting Unavailable UNKNOWN, PROVIDER Attending Unavailable RUBEN LUO Referring Unavailable RUBEN LUO Primary Care Unavailable GABY ORTIZ Admitting Unavailable GABY ORTIZ Attending Unavailable RUBEN LUO Primary Care Unavailable OTILIA SANCHEZ Referring Unavailable [place] Procedure Practitioner Unavailab le UNKNOWN, PROVIDER Surgeon Unavailable Ruben Luo MD Primary Care Provider Ney Roman Unavailable Oma Sewell Unavailable Orlando Beaver Unavailable MD Ruben Luo Primary Care Provider MD Orlando Beaver Attending Provider Ruben Luo MD Primary Care Provider Ruben Luo MD Primary Care Provider RUBEN LUO Primary Care Unavailable DYAN, OLUREMI A Consulting Unavailable RUBEN LUO Primary Care Unavailable UDO-INYANG, INYANG Admitting Unavailable UDO-INYANG, INYANG Attending Unavailable Mckay Motleyiz Unavailable OMA SEWELL Attending Unavailable OMA SEWELL Admitting Unavailable PUJA ., DR WILCOX Primary Care Unavailable OMA SEWELL Consulting Unavailable PUJA ., DR WILCOX Primary Care Unavailable HEMEYER [...] Unavailable HEMEYER ., DR WILCOX Admmikal Unavailable DONATO, OMA Consulting Unavailable DONATO, OMA [...] MISC, DR GOLDSTEIN Consulting Unavailable DIANE DUNCAN Unavailable DONATO, OMA Consulting Unavailable DONATO, OMA Attending Unavailable DONATO, OMA Admitting Unavailable HEMEYER ., DR WILCOX Primary Care Unavailable Dasia Flowers Unavailable UDO-INYANG, INYANG Referring Unavailable HEMEDOUGIE, RUBEN Porter Primary Care Unavailable UDO-INYANG, INYANG Attending Unavailable HEMERUBEN CONSTANTINO Primary Care Unavailable UDO-INYANG, INYANG Referring Unavailable UDO-INYANG, INYANG Referring Unavailable HEMEYER, RUBEN J Primary Care Unavailable UDO-INYANG, INYANG Referring Unavailable HEMEYER, RUBEN Porter Primary Care Unavailable TERRA, SHARON Referring Unavailable HEMEYER, RUBEN Porter Primary Care Unavailable TERRA, SHARON Referring Unavailable HEMEYER, RUBEN J Primary Care Unavailable TERRA, SHARON Referring Unavailable HEMEYER, RUBEN Porter Primary Care Unavailable UDO-INYANG, INYANG Referring Unavailable HEMEYER, RUBEN Porter Primary Care Unavailable OSIEL ELAINE Referring Unavailable HEMEYER, RUBEN Porter Primary Care Unavailable UDO-INYANG, INYANG Referring Unavailable HEMEDOUGIE, RUBEN Porter Primary Care Unavailable Puja TURPIN, Ruben Dill [facility] Care Gabe Barnhart MD, Jr Attending Unavail able Puja TURPIN, Ruben Fuentes Primary Care Gabe Barnhart MD, Jr Attending Unavail able Gabe Harris MD, Jr Admitting Unavail able Devon VÁSQUEZ, Lizette [place] Consulting Unavailab neville Bueno APRN-STARBUCKS CLERK, Patricia Mujica Consulting Unavailable Puja TURPIN, Ruben [facility] Care Ky Roca MD, Domenic Perales Attending Unavaila IRA Wood Attending Unavailable VADIM VERONICA Attending Unavailable MD Ruben Luo Primary Care Provider [phone] MD Ney Roman Attending Provider Orlando Beaver Attending Unavailable Orlando Beaver Admitting Unavailable Ruben Luo Primary Care Unavailable Ney Roman Attending UnavailNey Gama Admitting Unavailabl e Ruben Luo Primary Care Unavailable Ney Roman Attending Unavailabl Ney Bucio Admitting Unavailabl e Ruben Luo Primary Care Unavailable RUBEN LUO Attending Unavailable Allergies Allergy Classification Reported Allergen(s) Allergy Type Date of Onset Reaction(s) Facility (20 sources) Angiotensin Converting Enzyme (Noelle) Inhibitors; Translations: [NOELLE INHIBITORS] Propensity to adverse reactions to drug 09-17-19 14 Other (See Comments) Famigo (20 sources) Acetaminophen / HYDROcodone Drug Allergy nausea vomiting SecureAuth Other (20 sources) Lisinopril; Translations: [lisinopril] Drug Allergy cough [place] buySAFE [facility] Repository (3 sources) Codeine; Translations: [codeine] Drug Allergy 07-12-19 23 Nausea And Vomiting BON Protagen Phone: (2 sources) Sulfamethoxazole / Trimethoprim; Translations: [SULFAMETHOXAZOLE-T RIMETHOPRIM] Drug Allergy 07-12-19 23 Nausea And Vomiting BON Protagen Phone: (11 sources) Substance with sulfonamide structure and antibacterial mechanism of action (substance) Drug allergy stomach upset [employer]Auth Other (2 sources) gabapentin; Translations: [gabapentin] Drug Allergy 07-06-19 23 [facility] Repository (1 source) Naproxen; Translations: [Aleve] Drug Allergy [facility] Repository (1 source) Sulfonamides (Antibiotic); Translations: [sulfa drugs] Propensity to adverse reactions to drug (disorder) [facility] Repository (1 source) Acetaminophen / HYDROcodone; Translations: [HYDROCODONE-ACETAM INOPHEN] Drug Allergy 05-15-19 22 [facility] Repository (1 source) amLODIPine; Translations: [AMLODIPINE] Drug Allergy 05-15-19 22 [facility] Repository (1 source) levoFLOXacin; Translations: [LEVOFLOXACIN] Drug Allergy 01-13-20 22 [facility] Repository (1 source) pregabalin; Translations: [PREGABALIN] Drug Allergy 07-06-19 23 [facility] Repository Medications Current Medications Medication Drug [...] Active Start: 05-04-2016 [facility] twenty-four hours amLODIPine Besylate 5 MG 1 tablet Orally Once a day Apr, Active take 2 tablets by [facility] once daily in the evening amLODIPine (NORVASC) [...] 0.5 tablet by mouth once daily Biotin 45651 MCG 1/2 TABLET Orally Once a day Active take 1 tablet by mouth once yamilka y Biotin 03650 MCG 1 tablet Orally Once a day [...] 16, 2022 12:00am take 1 capsule by in ut every twenty-four hours Vitamin D3 50 MCG [...] Daily April 16, 2022 12:00am epoetin michelle 37440 unt/ml injectable solution (20 sources) Erythropoiesis-stimulating Agent Procrit 14892 UNIT/ML as directed Injection every 4 weeks Active Procrit 45286 UN IT/ML as directed Injection every 4 weeks Active epoetin michelle ([place] OCRIT) 63899 UNIT/ML injection Inject 1,000 Units into the [...] Dec, Active furosemide 20 mg oral tablet (11 sources) Loop Diuretic Start: 09-10-2022 take 1 [...] of glucagon, Starting on Billie 07/19/22 at 1757 If blood glucose fails [...] (4 tablet ), Oral, PRN, Starting on Billie 07/19/22 at [...] lispro (HUMALOG) injection vial 0-4 Units Iron (12 sources) take 1 tablet by mouth twice [...] injection 2 mg Multi For Him - (3 sources) Multi For Him - as directed [...] 16, 2022 12:00am Nitro Sublingual 0.4 0.4mg (3 sources) Nitro Sublingual 0.4 0.4mg 1 Sublingual [...] tablet 0 07/26/2022 08/02/2022 Active vitamin B12 (18 sources) Vitamin B12 Vitamin B12 3000 MCG [...] Not-Taking docusate sodium 50 mg / sennosides, mcfp 8.6 mg oral tablet (1 source) Start: [...] Orally prn Active take 1 capsule by [facility] twice daily as needed doxycycline hyclate (VIBRAMYCIN) [...] not crush or break. polyethylene glycol 3350 33131 mg powder for oral solution (1 source) [...] line therapy. Post-op [place] cyclosilica [place] 42442 mg powder for oral suspension (2 sources) [...] heart disease (20 sources) Coronary arteriosclerosis in [place] artery; Translations: [Atherosclerotic heart disease of [place] coronary artery without angina pectoris] Onset: 2 [...] Onset: 3 Episodic Other aftercare (3 sources) detention (current) use of aspirin; Translations: [INTERMEDIATE CURRENT USE OF ASPIRIN] Onset: 3 Episodic [...] Chronic Other nutritional; endocrine; and metabolic disorders (14 sources) Hypomagnesemia; Translations: [Hypomagnesemia] Chronic Other nutritional; [...] Reference Range Facility US carotid doppler BIon 03-08 US carotid doppler BI [facility] [place] [address] Ultrasound Report Signed Patient: Omer Santos MR#: [id number] 7 : 1950 Acct:[id number] Age/Sex: 72 / M ADM Date: 03/20/23 Loc: [facility] Room: Type: [facility] Attending Dr: Ney Roman MD Ordering Provider: [...] Ney Roman MD03/20/2023 11:06 AM Dictation Location: [id number] Tech: Malini Mosley Transcribed By: [facility] 03/20/23 110 Dictated By: Ney Roman MD 03/20/23 1105 Signed By: 03/20/23 110 [facility] Office Visiton 02-20-2023 Follow-up visit [id number] Omer Santos 1950 M Date Provider Department Center 02/20/2023 NickolasVADIM VERONICA [facility] Family History Problem Relation Age of Onset Coronary artery disease Father Other Father Heart attack Father Coronary artery disease Brother Heart attack Brother Other Brother Heart attack Paternal Grandfather Family Status - Relation Status Age at Father Brother Paternal Grandfather Level of Service:14857 [place] OFFICE/OUTPATIENT ESTABLISHED MOD MDM 30-39 MIN Reason for Visit and Comments: Follow-up [869815] - 6 months Normal [facility] .eGFRon 02-01-2023 Estimated GFR 24 mL/min/1.73m? Low >=60 [facility] Comment on above: Result Comment: [facility] Laboratories have implemented the eGFR calculation [...] Performed By: #### . Manual Diff #### [facility] [address] [place] [address] CBC w/ Diffon 02-01-2023 Erythrocyte distribution width (RBC) [Ratio] 16.2 % High 11.6-14.8 [facility] Comment on above: Performed By: #### C BC #### [address] [address] Hematocrit (Bld) [Volume fraction] 29.5 % Low 41.0-53.0 [facility] Comment on above: Performed By: #### C BC #### [address] [address] Hemoglobin (Bld) [Mass/Vol] 10.2 g/dL Low 13.5-17.5 [facility] Comment on above: Performed By: #### C BC #### [address] [address] MCH (RBC) [Entitic mass] 30.2 pg Normal 27.0-35.0 [facility] Comment on above: Performed By: #### C BC #### [address] [address] MCHC 34.5 % Normal 31.0-37.0 [facility] Comment on above: Performed By: #### C BC #### [address] [address] MCV (RBC) [Entitic vol] 87.5 fL Normal 80.0-100.0 [facility] Comment on above: Performed By: #### C BC #### [address] [address] Platelet 151 x10*3/mcL Normal 150-450 [facility] Comment on above: Performed By: #### C BC #### [address] [address] Platelet mean volume (Bld) [Entitic vol] 7.2 fL Normal 6.7-10.6 [facility] Comment on above: Performed By: #### C BC #### [address] [address] RBC 3.37 x10*6/mcL Low 4.30-5.80 [facility] Comment on above: Performed By: #### C BC #### [address] [address] WBC 10.6 x10*3/mcL Normal 4.5-11.0 [facility] Comment on above: Performed By: #### C BC #### [address] [address] CMPon 02-01-2023 Albumin [Mass/Vol] 3.3 g/dL Normal 3.2-4.9 [facility] Comment on above: Performed By: #### C [id number] #### [address] [address] Albumin/Globulin [Mass ratio] 1.2 {ratio} Normal 1.1-2.2 [facility] Comment on above: Performed By: #### C [id number] #### [address] [address] Alk Phos 100 IU/L High 32-91 [facility] Comment on above: Performed By: #### C [id number] #### [address] [address] ALT [Catalytic activity/Vol] 15 U/L Low 17-63 [facility] Comment on above: Performed By: #### C D:[id number] #### [address] [address] Anion gap [Moles/Vol] 11 mmol/L Normal 7-17 [facility] Comment on above: Performed By: #### C [id number] #### [address] [address] AST [Catalytic activity/Vol] 17 U/L Normal 15-41 [facility] Comment on above: Performed By: #### C [id number] #### [address] [address] Bili Total 0.5 mg/dL Normal 0.3-1.2 [facility] Comment on above: Performed By: #### C [id number] #### [address] [address] Calcium [Mass/Vol] 8.0 mg/dL Low 8.5-10.3 [facility] Comment on above: Performed By: #### C D:[id number] #### [address] [address] Chloride [Moles/Vol] 107 mmol/L Normal 98-110 [facility] Comment on above: Performed By: #### C [id number] #### [address] [address] CO2 [Moles/Vol] 20 mmol/L Low 22-32 [facility] Comment on above: Performed By: #### C [id number] #### [address] [address] Creatinine [Mass/Vol] 2.68 mg/dL High 0.61-1.24 [facility] Comment on above: Performed By: #### C D:[id number] #### [address] [address] Glucose [Mass/Vol] 268 mg/dL High 70-99 [facility] Comment on above: Performed By: #### C [id number] #### [address] [address] Potassium [Moles/Vol] 5.3 mmol/L High 3.4-4.8 [facility] Comment on above: Performed By: #### C [id number] #### [address] [address] Protein [Mass/Vol] 6.1 g/dL Low 6.5-8.1 [facility] Comment on above: Performed By: #### C D:[id number] #### [address] [address] Sodium [Moles/Vol] 133 mmol/L Normal 133-142 [facility] Comment on above: Performed By: #### C D:[id number] #### [address] [address] Urea nitrogen [Mass/Vol] 67 mg/dL High 8-26 [facility] Comment on above: Performed By: #### C D:[id number] #### [address] [address] Urea nitrogen/Creatinine [Mass ratio] 25.0 mg/mg High 10.0-20.0 [facility] Comment on above: Performed By: #### C D:[id number] #### [address] [address] Diff Autoon 02-01-2023 Baso Absolute 0.0 x10*3/mcL Normal 0.0-0.2 [facility] Comment on above: Performed By: #### . Manual Diff #### [address] [address] Basophils/100 WBC (Bld) 0.3 % Normal 0.0-1.2 [facility] Comment on above: Performed By: #### . Manual Diff #### [address] [address] Eos Absolute 0.0 x10*3/mcL Normal 0.0-0.4 [facility] Comment on above: Performed By: #### . Manual Diff #### [address] [address] Eosinophils/100 WBC (Bld) 0.0 % Normal 0.0-6.1 [facility] Comment on above: Performed By: #### . Manual Diff #### [address] [address] Lymph Absolute 0.3 x10*3/mcL Low 1.0-4.8 [facility] Comment on above: Performed By: #### . Manual Diff #### [address] [address] Lymphocytes/100 WBC (Bld) 3.2 % Low 27.2-40.8 [facility] Comment on above: Performed By: #### . Manual Diff #### [address] [address] [place] Absolute 0.2 x10*3/mcL Low 0.3-1.1 [facility] Comment on above: Performed By: #### . Manual Diff #### [address] [address] Monocytes/100 WBC (Bld) 2.1 % Low 4.7-13.9 [facility] Comment on above: Performed By: #### . Manual Diff #### [address] [address] Neutro Absolute 10.0 x10*3/mcL High 1.8-7.7 [facility] Comment on above: Performed By: #### . Manual Diff #### [address] [address] Neutro Auto 94.4 % High 47.2-70.8 [facility] Comment on above: Performed By: #### . Manual Diff #### [address] [address] Diff Yoli 02-01-2023 Anisocyte Slight Normal [facility] Comment on above: Performed By: #### . Manual Diff #### [address] [address] Band form neutrophils/100 WBC (Bld) 0 % Normal 0-5 [facility] Comment on above: Performed By: #### . Manual Diff #### [address] [address] Basophils/100 WBC (Bld) 0 % Normal 0-3 [facility] Comment on above: Performed By: #### . Manual Diff #### [address] [address] Eosinophils/100 WBC (Bld) 0 % Normal 0-7 [facility] Comment on above: Performed By: #### . Manual Diff #### [address] [address] Lymphocytes/100 WBC (Bld) 2 % Low 14-42 [facility] Comment on above: Performed By: #### . Manual Diff #### [address] [address] Monocytes/100 WBC (Bld) 2 % Normal 1-11 [facility] Comment on above: Performed By: #### . Manual Diff #### [address] [address] Myelo Man 1 % High 0-0 [facility] Comment on above: Performed By: #### . Manual Diff #### [address] [address] Platelet estimate Adequate Normal [facility] Comment on above: Performed By: #### . Manual Diff #### [address] [address] Segs Man 95 % High 49-79 [facility] Comment on above: Performed By: #### . Manual Diff #### [place] [id number] Hgb A1con 02-01-2023 Glucose [Mass/Vol] 114 mg/dL Normal 68-114 [facility] Comment on above: Result Comment: Math ematical Calc approx. The mean gluc equivalency of A1c Performed By: #### H BA1C #### [place] [address] Hgb A1c 5.6 % A1c Normal 4.0-5.6 [facility] Comment on above: Result Comment: Refe rence Range: 4.0 - 5.6 % Normal 5.7 - 6.4 % Pre-Diabetes > 6.5 % Diabetes Performed By: #### H BA1C #### [place] [id number] Inpatient Clinical Summaryon 02-01-2023 Inpatient Clinical Summary [address] [address] [place] [address] Clinical Summary Person Information Name: Omer Santos Age: 72 Years : 1950 Sex: Male PCP: Ruben Luo MD Marital Status: Single Phone: PCP: [phone] Race: White Ethnicity: Not or Language: [place] Visit Id: Visit Reason: Speciality: Acuity: Enc Type: Observation Med Service: Surgery Arrival: 01/31/2023 08:47:46 Discharge: Dispo Type: Address: [address] [place] [phone] Diagnosis: Discharged To: Home Treatments: Devices/Equipment: Professional [...] range between ( 27.2 and 40.8 ) [place] Auto: 2.1 % -- Normal range between [...] range between ( 41.0 and 53.0 ) [place] Absolute: 0.2 x10 MCH: 30.2 pg -- [...] North Ass (more content not included)... Normal [facility] Magnesiumon 02-01-2023 Magnesium [Mass/Vol] 1.7 mg/dL Normal 1.7-2.4 [facility] Comment on above: Performed By: #### . Manual Diff #### [place] [address] Orthopedic Progress Noteon 1 Orthopedic Progress Note [...] Harris MD, Jr 02/01/23 07:03 EDT Normal [facility] POC Glucose Randomon 023 Glucose [Mass/Vol] 281 mg/dL High 70-99 [facility] Comment on above: Performed By: #### . Manual Diff #### [facility] [address] [place] [address] Glucose [Mass/Vol] 352 mg/dL High 70-99 [facility] Comment on above: Performed By: #### C [id number] #### [address] [address] Phosphoruson 02-01-2023 Phosphate [Mass/Vol] 4.8 mg/dL High 2.5-4.6 [facility] Comment on above: Performed By: #### . Manual Diff #### [address] [address] Potassiumon 02-01-2023 Potassium [Moles/Vol] 5.6 mmol/L High 3.4-4.8 [facility] Comment on above: Performed By: #### C D:[id number] #### [address] [address] .eGFRon 01-31-2023 Estimated GFR 26 mL/min/1.73m? Low >=60 [facility] Comment on above: Order Comment: Order added by Discern rule Result Comment: [facility] have implemented the eGFR calculation [...] years Performed By: #### E GFR #### [address] [address] Basic Metabolic Profileon Anion gap [Moles/Vol] 14 mmol/L Normal 7-17 [facility] Comment on above: Performed By: #### . Manual Diff #### [address] [address] Calcium [Mass/Vol] 9.0 mg/dL Normal 8.5-10.3 [facility] Comment on above: Performed By: #### . Manual Diff #### [address] [address] Chloride [Moles/Vol] 111 mmol/L High 98-110 [facility] Comment on above: Performed By: #### . Manual Diff #### [address] [address] CO2 [Moles/Vol] 21 mmol/L Low 22-32 [facility] Comment on above: Performed By: #### . Manual Diff #### [address] [address] Creatinine [Mass/Vol] 2.56 mg/dL High 0.61-1.24 [facility] Comment on above: Performed By: #### . Manual Diff #### [address] [address] Glucose [Mass/Vol] 154 mg/dL High 70-99 [facility] Comment on above: Performed By: #### . Manual Diff #### [address] [address] Potassium [Moles/Vol] 5.7 mmol/L High 3.4-4.8 [facility] Comment on above: Performed By: #### . Manual Diff #### [address] [address] Sodium [Moles/Vol] 140 mmol/L Normal 133-142 [facility] Comment on above: Performed By: #### . Manual Diff #### [address] [address] Urea nitrogen [Mass/Vol] 67 mg/dL High 8-26 [facility] Comment on above: Performed By: #### . Manual Diff #### [facility] [address] [place] [address] Urea nitrogen/Creatinine [Mass ratio] 26.2 mg/mg High 10.0-20.0 [facility] Comment on above: Performed By: #### . 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 Gabe Harris [...] (Cr 2.5, no baseline labs available, Nephrology [facility]) HTN, BP stable Anemia of chronic disease/Iron [...] GFR 20s . Followed by Nephrology at [facility] in [place]. Prior history of hyperkalemia, on low K/renal [...] Oral, BID (more content not included)... Normal [facility] XR Spine Cervical 2 or 3 Vie wson 01-31-2023 XR Spine Cervical 2 or 3 [...] Electronically Signed in Other Vendor System) Normal [facility] MRSA, DNA, Nasalon MRSA, DNA, Nasal POSITIVE: MRSA DNA detected by nucleic acid amplification. Abnormal NEG [facility] Comment on above: Result Comment: Results should be used as an adjunct to nosocomial control efforts to identify patients needing enhanced precautions. The test is not intended to identify patients with staphylococcal infections. Results should not be used to guide or monitor treatment for MRSA infections. Performed By: #### B MP, PT, PTT, CBC #### [facility] [address] [place] [address] Program Manager Transportation: Dave Dawn MD #### GLYHGB #### [address] [address] Program Manager Transportation: Faustino Patel MD #### MRSANO #### [address] [address] Program Manager Transportation: Faustino Patel MD [address] [place] [address] Program Manager Transportation: Dave Dawn MD APTTon 01-11-2023 aPTT Coag (Bld) [Time] 29.2 s Normal 26.8-34.8 [facility] Comment on above: Result Comment: IV Heparin Therapy Range: 62.0-94.0 Performed By: #### B MP, PT, PTT, CBC #### [facility] [address] [place] [id number] Program Manager Transportation: Dave Dawn MD #### GLYHGB #### [address] [address] Program Manager Transportation: Faustino Patel MD #### MRSANO #### [address] [address] Program Manager Transportation: Faustino Patel MD [facility] [address] [place] [address] Program Manager Transportation: Dave Dawn MD Basic Metabolic Profon 01-11 Anion gap [Moles/Vol] 11 mmol/L Normal 9-17 [facility] Comment on above: Performed By: #### B MP, PT, PTT, CBC #### [facility] [address] [place] [address] Program Manager Transportation: Dave Dawn MD #### GLYHGB #### [facility] [address] [place] [address] Program Manager Transportation: Faustino Patel MD #### MRSANO #### [facility] [address] [place] [id number] Program Manager Transportation: Faustino Patel MD [address] [place] [address] Program Manager Transportation: Dave Dawn MD BUN/CRE Ratio 23 High 9-20 [facility] Comment on above: Performed By: #### B MP, PT, PTT, CBC #### [address] [place] [address] Program Manager Transportation: Dave Dawn MD #### GLYHGB #### [facility] [address] [place] [address] Program Manager Transportation: Faustino Patel MD #### MRSANO #### [facility] [address] [place] [address] Program Manager Transportation: Faustino Patel MD [facility] [address] [place] [address] [place] [address] Program Manager Transportation: Dave Dawn MD Calcium [Mass/Vol] 9.3 mg/dL Normal 8.6-10.4 [facility] Comment on above: Performed By: #### B MP, PT, PTT, CBC #### [address] [place] [address] Program Manager Transportation: Dave Dawn MD #### GLYHGB #### [facility] [address] [place] [address] Program Manager Transportation: Faustino Patel MD #### MRSANO #### [facility] [address] [place] [address] Program Manager Transportation: Faustino Patel MD [address] [place] [address] Program Manager Transportation: Dave Dawn MD Chloride [Moles/Vol] 107 mmol/L Normal 98-107 [facility] Comment on above: Performed By: #### B MP, PT, PTT, CBC #### [address] [place] [address] Program Manager Transportation: Dave Dawn MD #### GLYHGB #### [facility] [address] [place] [address] Program Manager Transportation: Fuastino Patel MD #### MRSANO #### [facility] [address] [place] [address] Program Manager Transportation: Faustino Patel MD [address] [place] [address] Program Manager Transportation: Dave Dawn MD CO2 [Moles/Vol] 24 mmol/L Normal 20-31 [facility] Comment on above: Performed By: #### B MP, PT, PTT, CBC #### [address] [place] [address] Program Manager Transportation: Dave Dawn MD #### GLYHGB #### [facility] [address] [place] [address] Program Manager Transportation: Faustino Patel MD #### MRSANO #### [facility] [address] [place] [address] Program Manager Transportation: Faustino Patel MD [facility] [address] [place] [address] [address] [place], [place] [phone] Program Manager Transportation: Dave Dawn MD Creatinine [Mass/Vol] 3.3 mg/dL High 0.7-1.2 [facility] Comment on above: Performed By: #### B MP, PT, PTT, CBC #### [facility] [address] [place] [address] [address] [place], [place] [id number] Program Manager Transportation: Dave Dawn MD #### GLYHGB #### [facility] [address] [place] [address] Program Manager Transportation: Faustino Patel MD #### MRSANO #### [facility] [address] [place] [address] Program Manager Transportation: Faustino Patel MD [address] [place] [address] Program Manager Transportation: Dave Dawn MD GFR/1.73 sq M.predicted among non-blacks MDRD (S/P/Bld) [Vol rate/Area] 19 mL/min/{1.73_m2} Low >60 [facility] Comment on above: Result Comment: These results [...] #### B MP, PT, PTT, CBC #### [facility] [address] [place] [address] [address] [place], [place] [phone] Program Manager Transportation: Dave Dawn MD #### GLYHGB #### [facility] [address] [place] [address] Program Manager Transportation: Faustino Patel MD #### MRSANO #### [facility] [address] [place] [address] Program Manager Transportation: Faustino Patel MD [address] [place], [place] 7396783 Program Manager Transportation: Dave Dawn MD Glucose [Mass/Vol] 61 mg/dL Low 70-99 [facility] Comment on above: Performed By: #### B MP, PT, PTT, CBC #### [address] [place], [place] [id number] Program Manager Transportation: Dave Dawn MD #### GLYHGB #### [address] [address] Program Manager Transportation: Faustino Patel MD #### MRSANO #### [address] [address] Program Manager Transportation: Faustino Patel MD [address] [place], [place] 3030283 Program Manager Transportation: Dave Dawn MD Potassium [Moles/Vol] 4.9 mmol/L Normal 3.7-5.3 [facility] Comment on above: Performed By: #### B MP, PT, PTT, CBC #### [address] [place], [place] 2754883 Program Manager Transportation: Dave Dawn MD #### GLYHGB #### [address] [address] Program Manager Transportation: Faustino Patel MD #### MRSANO #### [address] [address] Program Manager Transportation: Faustino Patel MD [address] [place], [place] 1427583 Program Manager Transportation: Dave Dawn MD Sodium [Moles/Vol] 142 mmol/L Normal 135-144 [facility] Comment on above: Performed By: #### B MP, PT, PTT, CBC #### [address] [place], [place] 4096983 Program Manager Transportation: Dave Dawn MD #### GLYHGB #### [address] [address] Program Manager Transportation: Faustino Patel MD #### MRSANO #### [address] [address] Program Manager Transportation: Faustino Patel MD [address] [place], [place] [id number] Program Manager Transportation: Dave Dawn MD Urea nitrogen [Mass/Vol] 75 mg/dL High 8-23 [facility] Comment on above: Performed By: #### B MP, PT, PTT, CBC #### [address] [place], [place] [id number] Program Manager Transportation: Dave Dawn MD #### GLYHGB #### [address] [address] Program Manager Transportation: Faustino Patel MD #### MRSANO #### [address] [address] Program Manager Transportation: Faustino Patel MD [address] [place], [place] 4180183 Program Manager Transportation: Dave Dawn MD CBCon 01-11-2023 Erythrocyte distribution width (RBC) [Ratio] 13.3 % Normal 11.8-14.4 [facility] Comment on above: Performed By: #### B MP, PT, PTT, CBC #### [address] [place], [place] 0305283 Program Manager Transportation: Dave Dawn MD #### GLYHGB #### [address] [address] Program Manager Transportation: Faustino Patel MD #### MRSANO #### [address] [place] [address] Program Manager Transportation: Faustino Patel MD [address] [place] [address] Program Manager Transportation: Dave Dawn MD Hematocrit (Bld) [Volume fraction] 28.9 % Low 40.7-50.3 [facility] Comment on above: Performed By: #### B MP, PT, PTT, CBC #### [address] [place] [phone] Program Manager Transportation: Dave Dawn MD #### GLYHGB #### [address] [address] Program Manager Transportation: Faustino Patel MD #### MRSANO #### [address] [address] Program Manager Transportation: Faustino Patel MD [address] [place] [address] Program Manager Transportation: Dave Dawn MD Hemoglobin (Bld) [Mass/Vol] 9.6 g/dL Low 13.0-17.0 [facility] Comment on above: Performed By: #### B MP, PT, PTT, CBC #### [address] [place] [phone] Program Manager Transportation: Dave Dawn MD #### GLYHGB #### [address] [address] Program Manager Transportation: Faustino Patel MD #### MRSANO #### [address] [address] Program Manager Transportation: Faustino Patel MD [address] [place] [phone] Program Manager Transportation: Dave Dawn MD MCH (RBC) [Entitic mass] 30.0 pg Normal 25.2-33.5 [facility] Comment on above: Performed By: #### B MP, PT, PTT, CBC #### [address] [place] [address] Program Manager Transportation: Dave Dawn MD #### GLYHGB #### [address] [address] Program Manager Transportation: Faustino Patel MD #### MRSANO #### [address] [address] Program Manager Transportation: Faustino Patel MD [address] [place] [address] Program Manager Transportation: Dave Dawn MD MCHC (RBC) [Mass/Vol] 33.2 g/dL Normal 28.4-34.8 [facility] Comment on above: Performed By: #### B MP, PT, PTT, CBC #### [address] [place] [phone] Program Manager Transportation: Dave Dawn MD #### GLYHGB #### [address] [address] Program Manager Transportation: Faustino Patel MD #### MRSANO #### [address] [address] Program Manager Transportation: Faustino Patel MD [address] [place] [phone] Program Manager Transportation: Dave Dawn MD MCV (RBC) [Entitic vol] 90.3 fL Normal 82.6-102.9 [facility] Comment on above: Performed By: #### B MP, PT, PTT, CBC #### [address] [place] [address] Program Manager Transportation: Dave Dawn MD #### GLYHGB #### [address] [address] Program Manager Transportation: Faustino Patel MD #### MRSANO #### [address] [address] Program Manager Transportation: Faustino Patel MD [address] [place] [address] Program Manager Transportation: Dave Dawn MD NRBC Automated 0.0 per 100 WBC Normal 0.0 [facility] Comment on above: Performed By: #### B MP, PT, PTT, CBC #### [address] [place] [phone] Program Manager Transportation: Dave Dawn MD #### GLYHGB #### [address] [address] Program Manager Transportation: Faustino Patel MD #### MRSANO #### [address] [address] Program Manager Transportation: Faustino Patel MD [address] [place] [address] Program Manager Transportation: Dave Dawn MD Platelet mean volume (Bld) [Entitic vol] 8.6 fL Normal 8.1-13.5 [facility] Comment on above: Performed By: #### B MP, PT, PTT, CBC #### [address] [place] [phone] Program Manager Transportation: Dave Dawn MD #### GLYHGB #### [address] [address] Program Manager Transportation: Faustino Patel MD #### MRSANO #### [address] [address] Program Manager Transportation: Faustino Patel MD [address] [place] [phone] Program Manager Transportation: Dave Dawn MD Platelets (Bld) [#/Vol] 191 10*3/uL Normal 138-453 [facility] Comment on above: Performed By: #### B MP, PT, PTT, CBC #### [address] [place] [address] Program Manager Transportation: Dave Dawn MD #### GLYHGB #### [facility] [address] [place] [address] Program Manager Transportation: Faustino Patel MD #### MRSANO #### [facility] [address] [place] [address] Program Manager Transportation: Faustino Patel MD [address] [place] [address] Program Manager Transportation: Dave Dawn MD RBC (Bld) [#/Vol] 3.20 10*6/uL Low 4.21-5.77 [facility] Comment on above: Performed By: #### B MP, PT, PTT, CBC #### [address] [place] [address] Program Manager Transportation: Dave Dawn MD #### GLYHGB #### [facility] [address] [place] [address] Program Manager Transportation: Faustino Patel MD #### MRSANO #### [facility] [address] [place] [address] Program Manager Transportation: Faustino Patel MD [address] [place] [address] Program Manager Transportation: Dave Dawn MD WBC (Bld) [#/Vol] 7.4 10*3/uL Normal 3.5-11.3 [facility] Comment on above: Performed By: #### B MP, PT, PTT, CBC #### [address] [place] [address] Program Manager Transportation: Dave Dawn MD #### GLYHGB #### [place] [address] [place] [address] Program Manager Transportation: Faustino Patel MD #### MRSANO #### [address] [address] Program Manager Transportation: Faustino Patel MD [address] [place], [place] 2699683 Program Manager Transportation: Dave Dawn MD Hemoglobin A1Con 01-11-2023 Glucose [Mass/Vol] 80 mg/dL Normal [facility] Comment on above: Result Comment: The ADA and AACC recommend providing the estimated average glucose result to permit better patient understanding of their HBA1c result. Performed By: #### B MP, PT, PTT, CBC #### [address] [place] [address] Program Manager Transportation: Dave Dawn MD #### GLYHGB #### [address] [address] Program Manager Transportation: Faustino Patel MD #### MRSANO #### [address] [address] Program Manager Transportation: Faustino Patel MD [address] [place], [place] [phone] Program Manager Transportation: Dave Dawn MD HbA1c (Bld) [Mass fraction] 4.4 % Normal 4.0-6.0 [facility] Comment on above: Performed By: #### B MP, PT, PTT, CBC #### [address] [place] [address] Program Manager Transportation: Dave Dawn MD #### GLYHGB #### [address] [address] Program Manager Transportation: Faustino Patel MD #### MRSANO #### [facility] [address] [place] [address] Program Manager Transportation: Faustino Patel MD [facility] [address] [place] [address] Dr. [place], [place] [phone] Program Manager Transportation: Dave Dawn MD MRSA, DNA, Nasalon 3 Specimen Description .NASAL SWAB Normal [facility] Comment on above: Performed By: #### B MP, PT, PTT, CBC #### [facility] [address] [place] [address] Dr. [place], [place] [phone] Program Manager Transportation: Dave Dawn MD #### GLYHGB #### [address] [address] Program Manager Transportation: Faustino Patel MD #### MRSANO #### [address] [address] Program Manager Transportation: Faustino Patel MD [address] [place] [phone] Program Manager Transportation: Dave Dawn MD PTon 2640 INR Coag (PPP) [Relative time] 1.2 {INR} Normal [facility] Comment on above: Result Comment: Therapeutic Range: Moderate Anticoagulant Intensity: INR = 2.0-3.0 High Anticoagulant Intensity: INR = 2.5-3.5 Performed By: #### B MP, PT, PTT, CBC #### [address] [place], [place] 2618383 Program Manager Transportation: Dave Dawn MD #### GLYHGB #### [address] [address] Program Manager Transportation: Faustino Patel MD #### MRSANO #### [address] [address] Program Manager Transportation: Faustino Patel MD [address] [place] [address] Program Manager Transportation: Dave Dawn MD PT Coag (PPP) [Time] 15.2 s High 11.9-14.8 [facility] Comment on above: Performed By: #### B MP, PT, PTT, CBC #### [facility] [address] [place] [address] Program Manager Transportation: Dave Dawn MD #### GLYHGB #### [facility] [address] [place], [place] [phone] Program Manager Transportation: Faustino Patel MD #### MRSANO #### [facility] [address] [place] [address] Program Manager Transportation: Faustino Patel MD [facility] [address] [place] [address] Program Manager Transportation: Dave Dawn MD XR CHEST (2 VW)on [...] Interpreted by: Lalo Garcia MD Signed by: Llao Garcia MD 01/11/23 Recipients: Ruben Luo MD - Fax Vadim Veronica MD - Fax Final result Normal [facility] Provider Letteron 01-09-2023 Provider Letter Ruben Luo MD [address] [place] [id number] Re: Omer Santos Date of Visit: 01/08/2023 [...] Head & Neck Surgery [facility] [place] [address] [place] [address] Tel.: [phone] Email: [email or web address] CC Providers: The following document(s) were included in the letter: January 08, 2023 15:00:00 EDT - (01/08/2023) ENT Office Visit Note Normal [facility] Otolaryngology Office/Clinic Noteon 01-08-2023 Otolaryngology Office/Clinic [...] No hoarseness appreciated. Procedure: Flexible fiberoptic laryngoscopy (36823) Preoperative diagnosis: History of right CEA, evaluate [...] separately billable services. New patient level 3 [address] added for flexible nasolaryngoscopy Physician Comments This [...] 40 mg (more content not included)... Normal [facility] CT CERVICAL SPINE WO CONTRAS Ton [...] Pascale Albarado MD 12/29/22 Final result Normal [facility] US carotid doppler BIon 05- US carotid doppler BI [facility] [place] [address] [place] [address] Ultrasound Report Signed Patient: Omer Santos MR#: [id number] 7 : 1950 Acct:[id number] Age/Sex: 72 / M ADM Date: 08/20/22 Loc: [facility] Room: Type: [facility] Attending Dr: Ney Roman MD Ordering Provider: [...] Ney Roman MD08/22/2022 3:32 PM Dictation Location: [place] [address] Tech: Laura Carney Transcribed By: [facility] 08/22/22 153 Dictated By: Ney Roman MD 08/22/221530 Signed By: 08/22/22 153 [facility] FERRITINon 08-10-2022 Ferritin [Mass/Vol] 214.0 ng/mL Normal 26.0-388.0 [facility] Comment on above: Performed By: #### P THINT #### [facility] [address] [place] [address] Dr. Sarah Sánchez HEMOGRAM AND PLATELon 2022 Hematocrit (Bld) [Volume fraction] 24.3 % Critically low 42.0-54.0 [facility] Comment on above: Performed By: #### C VDTBH #### [facility] [address] [place] [address] Dr. Sarah Sánchez Hemoglobin (Bld) [Mass/Vol] 8.0 g/dL Critically low 14.0-18.0 [facility] Comment on above: Performed By: #### C VDTBH #### [facility] [address] [place] [address] [address] Sarah Sánchez MCH (RBC) [Entitic mass] 29.7 pg Normal 25.9-34.0 [facility] Comment on above: Performed By: #### C VDTBH #### [facility] [address] [place] [address] [address] Sarah Sánchez MCHC (RBC) [Mass/Vol] 32.9 g/dL Normal 29.9-35.2 [facility] Comment on above: Performed By: #### C VDTBH #### [facility] [address] [address] [address] Sarah Sánchez MCV (RBC) [Entitic vol] 90.3 fL Normal 80.0-94.0 [facility] Comment on above: Performed By: #### C VDTBH #### [facility] [address] [place] [address] Dr. Sarah Sánchez PLT 215 103/ul Normal 150-450 [facility] Comment on above: Performed By: #### C VDTBH #### [facility] [address] [place] [address] Dr. Sarah Sánchez RBC 2.69 106/ul Critically low 4.70-6.10 [facility] Comment on above: Performed By: #### C VDTBH #### [facility] [address] [place] [address] Dr. Sarah Sánchez WBC 7.3 103/ul Normal 4.0-11.0 [facility] Comment on above: Performed By: #### C VDTBH #### [facility] [address] [place] [address] Dr. Sarah Sánchez IRON AND TIBCon 08-10-2022 % SATURATION 23.5 % Normal [facility] Comment on above: Performed By: #### P THINT #### [facility] [address] [place] [address] [address] Sarah Sánchez Iron [Mass/Vol] 54.0 ug/dL Critically low 65.0-175.0 [facility] Comment on above: Performed By: #### P THINT #### [facility] [address] [place] [address] Dr. Sarah Sánchez TIBC DIRECT 230.0 ug/dL Critically low 250.0-450.0 [facility] Comment on above: Performed By: #### P THINT #### [facility] [address] [place] [address] Dr. Sarah Sánchez MAGNESIUMon 08-10-2022 Magnesium [Mass/Vol] 1.7 mg/dL Critically low 1.8-2.4 [facility] Comment on above: Performed By: #### C VDTBH #### [facility] [address] [place] [address] Dr. Sarah Sánchez RENAL FUNCTION PANELon 08-10 Albumin [Mass/Vol] 2.7 g/dL Critically low 3.4-5.0 [facility] Comment on above: Performed By: #### C VDTBH #### [facility] [address] [place] [address] Dr. Sarah Sánchez Calcium [Mass/Vol] 8.3 mg/dL Critically low 8.5-10.1 [facility] Comment on above: Performed By: #### C VDTBH #### [facility] [address] [place] [address] Dr. Sarah Sánchez Chloride [Moles/Vol] 106 mmol/L Normal 98-107 [facility] Comment on above: Performed By: #### C VDTBH #### [facility] [address] [place] [address] Dr. Sarah Sánchez CO2 [Moles/Vol] 29.6 mmol/L Normal 21.0-32.0 [facility] Comment on above: Performed By: #### C VDTBH #### [facility] [address] [place] [address] Dr. Sarah Sánchez Creatinine [Mass/Vol] 2.41 mg/dL Critically high 0.70-1.30 [facility] Comment on above: Performed By: #### C VDTBH #### [facility] [address] [place] [address] Dr. Sarah Sánchez EGFR-AF FILIPINO 32 mL/min/1.73m2 Critically low >=60 [facility] Comment on above: Performed By: #### C VDTBH #### [facility] [address] [place] [address] Dr. Sarah Sánchez EGFR-NON AF FILIPINO 27 mL/min/1.73m2 Critically low >=60 [facility] Comment on above: Performed By: #### C VDTBH #### [facility] [address] [place] [address] [address] Sarah Sánchez Glucose [Mass/Vol] 111 mg/dL Critically high 74-106 [facility] Comment on above: Performed By: #### C VDTBH #### [facility] [address] [place] [address] Dr. Sarah Sánchez Phosphate [Mass/Vol] 4.6 mg/dL Normal 2.6-4.7 [facility] Comment on above: Performed By: #### C VDTBH #### [facility] [address] [place] [address] Dr. Sarah Sánchez Potassium [Moles/Vol] 5.2 mmol/L Critically high 3.5-5.1 [facility] Comment on above: Performed By: #### C VDTBH #### [facility] [address] [place] [address] Dr. Sarah Sánchez Sodium [Moles/Vol] 142 mmol/L Normal 136-145 [facility] Comment on above: Performed By: #### C VDTBH #### [facility] [address] [place] [address] Dr. Sarah Sánchez Urea nitrogen [Mass/Vol] 31.0 mg/dL Critically high 7.0-18.0 [facility] Comment on above: Performed By: #### C VDTBH #### [facility] [address] [place] [address] Dr. Sarah Sánchez CBC AUTO DIFFon 08-08-2022 BASO # 0.1 103/ul Normal 0.0-0.1 [facility] Comment on above: Performed By: #### H BSANS #### [facility] [address] [place] [address] [address] Sarah Sánchez Basophils/100 WBC (Bld) 0.6 % Normal 0.2-2.0 [facility] Comment on above: Performed By: #### H BSANS #### [facility] [address] [place] [address] [address] Sarah Sánchez EO # 0.5 103/ul Normal 0.0-0.7 [facility] Comment on above: Performed By: #### H BSANS #### [facility] [address] [place] [address] [address] Sarah Sánchez Eosinophils/100 WBC (Bld) 6.1 % Normal 0.9-7.0 [facility] Comment on above: Performed By: #### H BSANS #### [facility] [address] [place] [address] Dr. Sarah Sánchez Erythrocyte distribution width (RBC) [Ratio] 14.0 % Normal 11.0-15.0 [facility] Comment on above: Performed By: #### H BSANS #### [facility] [address] [place] [address] Dr. Sarah Sánchez Hematocrit (Bld) [Volume fraction] 23.9 % Critically low 42.0-54.0 [facility] Comment on above: Performed By: #### H BSANS #### [facility] [address] [place] [address] Dr. Sarah Sánchez Hemoglobin (Bld) [Mass/Vol] 7.9 g/dL Critically low 14.0-18.0 [facility] Comment on above: Performed By: #### H BSANS #### [facility] [address] [place] [address] Dr. Sarah Sánchez IG # 0.08 10e3/ul Critically high 0.00-0.03 [facility] Comment on above: Performed By: #### H BSANS #### [facility] [address] [place] [address] Dr. Sarah Sánchez IG % 0.9 % Critically high 0.0-0.[address] [facility] Comment on above: Performed By: #### H BSANS #### [facility] [address] [address] [address] Sarah Sánchez LYMPH # 1.1 103/ul Critically low 1.2-3.8 [facility] Comment on above: Performed By: #### H BSANS #### [facility] [address] [address] [address] Sarah Sánchez Lymphocytes/100 WBC (Bld) 11.9 % Critically low 20.5-60.0 [facility] Comment on above: Performed By: #### H BSANS #### [facility] [address] [address] [address] Sarah Sánchez MANUAL DIFF REQ NO Normal [facility] Comment on above: Performed By: #### H BSANS #### [facility] [address] [place] [address] Dr. Sarah Sánchez MCH (RBC) [Entitic mass] 30.4 pg Normal 25.9-34.0 [facility] Comment on above: Performed By: #### H BSANS #### [facility] [address] [place] [address] Dr. Sarah Sánchez MCHC (RBC) [Mass/Vol] 33.1 g/dL Normal 29.9-35.2 [facility] Comment on above: Performed By: #### H BSANS #### [facility] [address] [place] [address] Dr. Sarah Sánchez MCV (RBC) [Entitic vol] 91.9 fL Normal 80.0-94.0 [facility] Comment on above: Performed By: #### H BSANS #### [facility] [address] [place] [address] Dr. Sarah Sánchez MONO # 0.5 103/ul Normal 0.3-0.8 [facility] Comment on above: Performed By: #### H BSANS #### [facility] [address] [place] [address] Dr. Sarah Sánchez Monocytes/100 WBC (Bld) 5.5 % Normal 1.7-12.0 [facility] Comment on above: Performed By: #### H BSANS #### [facility] [address] [place], [place] [address] Dr. Sarah Sánchez NEUT # 6.6 103/ul Critically high 1.4-6.5 [facility] Comment on above: Performed By: #### H BSANS #### [facility] [address] [address] [address] Sarah Sánchez Neutrophils/100 WBC (Bld) 75.0 % Normal 43.0-75.0 [facility] Comment on above: Performed By: #### H BSANS #### [facility] [address] [address] [address] Sarah Sánchez Platelet mean volume (Bld) [Entitic vol] 8.5 fL Critically low 9.5-13.5 [facility] Comment on above: Performed By: #### H BSANS #### [facility] [address] [address] [address] Sarah Sánchez PLT 245 103/ul Normal 150-450 [facility] Comment on above: Performed By: #### H BSANS #### [facility] [address] [address] [address] Sarah Sánchez RBC 2.60 106/ul Critically low 4.70-6.10 [facility] Comment on above: Performed By: #### H BSANS #### [facility] [address] [address] [address] Sarah Sánchez WBC 8.8 103/ul Normal 4.0-11.0 [facility] Comment on above: Performed By: #### H BSANS #### [facility] [address] [address] [address] Sarah Sánchez ANION GAPon 07-26-2022 Anion gap [Moles/Vol] 13.0 mmol/L Normal 8.0-16.0 [facility] Comment on above: Result Comment: ANIO N GAP = Sodium -(Chloride + CO2) Performed By: #### P OCGL #### [facility] [employer] [address] [place] [address] Anion Gapon 07-26-2022 Anion gap [Moles/Vol] 13.0 mmol/L 8.0 - 16.0 meq/L [facility] Comment on above: ANION GAP = Sodium - (Chloride + CO2) Performed at [facility] [address] [place] [address] BASIC METABOL PANELon 2022 Calcium [Mass/Vol] 7.7 mg/dL Low 8.5-10.5 [facility] Comment on above: Performed By: #### P OCGL #### [facility] [address] [place] [address] Chloride [Moles/Vol] 102 mmol/L Normal 98-111 [facility] Comment on above: Performed By: #### P OCGL #### [facility] [address] [place] [address] CO2 [Moles/Vol] 19 mmol/L Low 23-33 [facility] Comment on above: Performed By: #### P OCGL #### [facility] [address] [place] [address] Creatinine [Mass/Vol] 2.4 mg/dL High 0.4-1.2 [facility] Comment on above: Performed By: #### P OCGL #### [facility] [address] [place] [address] Glucose [Mass/Vol] 205 mg/dL High 70-108 [facility] Comment on above: Performed By: #### P OCGL #### [facility] [address] [place] [address] Potassium [Moles/Vol] 4.8 mmol/L Normal 3.5-5.2 [facility] Comment on above: Performed By: #### P OCGL #### [facility] [address] [place] [address] Sodium [Moles/Vol] 134 mmol/L Low 135-145 [facility] Comment on above: Performed By: #### P OCGL #### [facility] [address] [place] [address] Urea nitrogen [Mass/Vol] 65 mg/dL High 7-22 [facility] Comment on above: Performed By: #### P OCGL #### [facility] [address] [place] [address] Basic metabolic 2000 panelon 07-26-2022 Calcium [Mass/Vol] 7.7 mg/dL Low 8.5 - 10. 5 mg/dL [facility] Comment on above: Performed at [facility] [address] [place] [address] Chloride [Moles/Vol] 102 mmol/L 98 - 11 1 meq/L [facility] CO2 [Moles/Vol] 19 mmol/L Low 23 - 33 meq/L [facility] Creatinine [Mass/Vol] 2.4 mg/dL High 0.4 - 1.2 mg/dL [facility] Glucose [Mass/Vol] 205 mg/dL High 70 - 108 mg/dL [facility] Potassium [Moles/Vol] 4.8 mmol/L 3.5 - 5.2 meq/L [facility] Sodium [Moles/Vol] 134 mmol/L Low 135 - 145 meq/L [facility] Urea nitrogen [Mass/Vol] 65 mg/dL High 7 - 22 mg/dL [facility] CBCon 07-26-2022 Erythrocyte distribution width (RBC) [Entitic vol] 46.2 fL High 35.0 - 45.0 fL [facility] Erythrocyte distribution width (RBC) [Ratio] 13.6 % 11.5 - 14.5 % [facility] Hematocrit (Bld) [Volume fraction] 22.9 % Low 42.0 - 52.0 % [facility] Hemoglobin (Bld) [Mass/Vol] 7.4 g/dL Low [facility] Interpretation and review of laboratory results Abnormal [facility] MCH (RBC) [Entitic mass] 30.0 pg 26.0 - 33.0 pg [facility] MCHC (RBC) [Mass/Vol] 32.3 g/dL [facility] MCV (RBC) [Entitic vol] 92.7 fL 80.0 - 94.0 fL [facility] Platelet mean volume (Bld) [Entitic vol] 9.0 fL Low 9.4 - 12.4 fL [facility] Comment on above: Performed at [facility] [address] [place] [address] Platelets (Bld) [#/Vol] 147 10*3/uL [facility] RBC (Bld) [#/Vol] 2.47 10*6/uL Low [facility] WBC (Bld) [#/Vol] 4.3 10*3/uL Low [facility] CBC NO DIFFERENTIALon 2022 Erythrocyte distribution width (RBC) [Ratio] 13.6 % Normal 11.5-14.5 [facility] Comment on above: Performed By: #### P OCGL #### [employer] [address] [place] [address] Hematocrit (Bld) [Volume fraction] 22.9 % Low 42.0-52.0 [facility] Comment on above: Performed By: #### P OCGL #### [employer] [address] [place] [address] Hemoglobin (Bld) [Mass/Vol] 7.4 g/dL Low 14.0-18.0 [facility] Comment on above: Performed By: #### P OCGL #### [employer] [address] [place] [address] MCH (RBC) [Entitic mass] 30.0 pg Normal 26.0-33.0 [facility] Comment on above: Performed By: #### P OCGL #### [employer] [address] [place] [address] MCHC (RBC) [Mass/Vol] 32.3 g/dL Normal 32.2-35.5 [facility] Comment on above: Performed By: #### P OCGL #### [employer] [address] [place] [address] MCV (RBC) [Entitic vol] 92.7 fL Normal 80.0-94.0 [facility] Comment on above: Performed By: #### P OCGL #### [facility] [address] [place] [address] PLATELET 147 thou/mm3 Normal 130-400 [facility] Comment on above: Performed By: #### P OCGL #### [address] [address] Platelet mean volume (Bld) [Entitic vol] 9.0 fL Low 9.4-12.4 [facility] Comment on above: Performed By: #### P OCGL #### [address] [address] RBC 2.47 mill/mm3 Low 4.70-6.10 [facility] Comment on above: Performed By: #### P OCGL #### [address] [address] RDW-SD 46.2 fL High 35.0-45.0 [facility] Comment on above: Performed By: #### P OCGL #### [address] [address] WBC 4.3 thou/mm3 Low 4.8-10.8 [facility] Comment on above: Performed By: #### P OCGL #### [address] [address] GFR, ESTIMATEDon 07-26-2022 GFR/1.73 sq M.predicted MDRD (S/P/Bld) [Vol rate/Area] 28 mL/min/{1.73_m2} Abnormal >60 [facility] Comment on above: Result Comment: Shayla atric [...] secretion. Performed By: #### P OCGL #### [address] [address] GLUCOSE POCon 07-26-2022 Glucose [Mass/Vol] 312 mg/dL High 70-108 [facility] Comment on above: Performed By: #### H -A1C #### [address] [address] Glucose [Mass/Vol] 226 mg/dL High 70-108 [facility] Comment on above: Performed By: #### P OCGL #### [address] [address] Glucose [Mass/Vol] 230 mg/dL High 70-108 [facility] Comment on above: Performed By: #### P OCGL #### [facility] [address] [place] [address] Glucose [Mass/Vol] 232 mg/dL High 70-108 [facility] Comment on above: Performed By: #### P OCGL #### [address] [address] Glucose [Mass/Vol] 334 mg/dL High 70-108 [facility] Comment on above: Performed By: #### P OCGL #### [address] [address] Glomerular Filtration Rate, Estimatedon 07-26-2022 GFR/1.73 sq M.predicted MDRD (S/P/Bld) [Vol rate/Area] 28 mL/min/{1.73_m2} Abnormal - PINF [employer] Comment on above: Pediatric calculator link https://www.kidney.org/professionals/kdoqi/gfr_calculatorped [...] that affects renal tubular secretion. Performed at [facility] [employer] [address] [address] Glucose Auto test strip (Bld ) [Mass/Vol]on 07-26-2022 Glucose [Mass/Vol] 312 mg/dL High 70 - 108 mg/dl [employer] Comment on above: Performed at [facility] [employer] [facility] [address] [place] [address] Interpretation and review of laboratory results Abnormal [employer] [facility] Glucose [Mass/Vol] 226 mg/dL High 70 - 108 mg/dl [facility] Comment on above: Performed at [facility] [address] [place] [address] Interpretation and review of laboratory results Abnormal [facility] Glucose [Mass/Vol] 230 mg/dL High 70 - 108 mg/dl [facility] Comment on above: Performed at [facility] [address] [place] [address] Interpretation and review of laboratory results Abnormal [facility] Glucose [Mass/Vol] 232 mg/dL High 70 - 108 mg/dl [facility] Comment on above: Performed at [facility] [address] [place] [address] Interpretation and review of laboratory results Abnormal [facility] No Panel Informationon 07-26 Interpretation and review of laboratory results Abnormal [facility] VL DUP LOWER EXTREMITY VENOU S BILATERALon 07-26-2022 No evidence of deep venous thrombosis in either lower extremity. This report has been created using voice recognition software. It may contain minor errors which are inherent in voice recognition technology. Final report electronically signed by Dr. Jose R Bianchi on 07/26/2022 6:35 PM [facility] Jose R Cast MD - 07/26/2022 [...] Jose R Bianchi on 07/26/2022 6:35 PM [facility] Work Phone: Radiology Study observation (narrative) [employer] Phone: VL DUP LOWER EXTREMITY VENOU S BILATERALOrdered By: Jose R Bianchi on 07-26-2022 [facility] [employer] Phone: ANION GAPon 07-25-2022 Anion gap [Moles/Vol] 12.0 mmol/L Normal 8.0-16.0 [facility] Comment on above: Result Comment: ANIO N GAP = Sodium -(Chloride + CO2) Performed By: #### P OCGL #### [facility] [address] [place] [address] Anion Gapon 07-25-2022 Anion gap [Moles/Vol] 12.0 mmol/L 8.0 - 16.0 meq/L [facility] Comment on above: ANION GAP = Sodium - (Chloride + CO2) Performed at [facility] [address] [place] [address] BASIC METABOL PANELon 2022 Calcium [Mass/Vol] 7.7 mg/dL Low 8.5-10.5 [facility] Comment on above: Performed By: #### P OCGL #### [facility] [address] [place] [address] Chloride [Moles/Vol] 104 mmol/L Normal 98-111 [facility] Comment on above: Performed By: #### P OCGL #### [facility] [address] [place] [address] CO2 [Moles/Vol] 19 mmol/L Low 23-33 [facility] Comment on above: Performed By: #### P OCGL #### [facility] [address] [place] [address] Creatinine [Mass/Vol] 2.5 mg/dL High 0.4-1.2 [facility] Comment on above: Performed By: #### P OCGL #### [facility] [address] [place] [address] Glucose [Mass/Vol] 287 mg/dL High 70-108 [facility] Comment on above: Performed By: #### P OCGL #### [facility] [address] [place] [address] Potassium [Moles/Vol] 5.4 mmol/L High 3.5-5.2 [facility] Comment on above: Performed By: #### P OCGL #### [facility] [address] [place] [address] Sodium [Moles/Vol] 135 mmol/L Normal 135-145 [facility] Comment on above: Performed By: #### P OCGL #### [facility] [address] [place] [address] Urea nitrogen [Mass/Vol] 55 mg/dL High 7-22 [facility] Comment on above: Performed By: #### P OCGL #### [facility] [address] [place] [address] Basic metabolic 2000 panelon 07-25-2022 Calcium [Mass/Vol] 7.7 mg/dL Low 8.5 - 10. 5 mg/dL [facility] Comment on above: Performed at [facility] [address] [place] [address] Chloride [Moles/Vol] 104 mmol/L 98 - 11 1 meq/L [facility] CO2 [Moles/Vol] 19 mmol/L Low 23 - 33 meq/L [facility] Creatinine [Mass/Vol] 2.5 mg/dL High 0.4 - 1.2 mg/dL [facility] Glucose [Mass/Vol] 287 mg/dL High 70 - 108 mg/dL [facility] [employer] [facility] Potassium [Moles/Vol] 5.4 mmol/L High 3.5 - 5.2 meq/L [facility] Sodium [Moles/Vol] 135 mmol/L 135 - 145 meq/L [facility] Urea nitrogen [Mass/Vol] 55 mg/dL High 7 - 22 mg/dL [facility] CBCon 07-25-2022 Erythrocyte distribution width (RBC) [Entitic vol] 45 fL 35.0 - 45.0 fL [facility] Erythrocyte distribution width (RBC) [Ratio] 13.5 % 11.5 - 14.5 % [facility] Hematocrit (Bld) [Volume fraction] 23.1 % Low 42.0 - 52.0 % [facility] Hemoglobin (Bld) [Mass/Vol] 7.6 g/dL Low [facility] Interpretation and review of laboratory results Abnormal [facility] MCH (RBC) [Entitic mass] 30.2 pg 26.0 - 33.0 pg [facility] MCHC (RBC) [Mass/Vol] 32.9 g/dL [facility] MCV (RBC) [Entitic vol] 91.7 fL 80.0 - 94.0 fL [facility] Platelet mean volume (Bld) [Entitic vol] 9.1 fL Low 9.4 - 12.4 fL [facility] Comment on above: Performed at [facility] [address] [place] [address] Platelets (Bld) [#/Vol] 148 10*3/uL [facility] RBC (Bld) [#/Vol] 2.52 10*6/uL Low [facility] WBC (Bld) [#/Vol] 3.9 10*3/uL Low [facility] CBC NO DIFFERENTIALon 2022 Erythrocyte distribution width (RBC) [Ratio] 13.5 % Normal 11.5-14.5 [facility] Comment on above: Performed By: #### P OCGL #### [facility] [address] [place] [address] Hematocrit (Bld) [Volume fraction] 23.1 % Low 42.0-52.0 [facility] Comment on above: Performed By: #### P OCGL #### [employer] [address] [place] [address] Hemoglobin (Bld) [Mass/Vol] 7.6 g/dL Low 14.0-18.0 [facility] Comment on above: Performed By: #### P OCGL #### [facility] [address] [place] [address] MCH (RBC) [Entitic mass] 30.2 pg Normal 26.0-33.0 [facility] Comment on above: Performed By: #### P OCGL #### [id number] MCHC (RBC) [Mass/Vol] 32.9 g/dL Normal 32.2-35.5 [facility] Comment on above: Performed By: #### P OCGL #### [address] [id number] MCV (RBC) [Entitic vol] 91.7 fL Normal 80.0-94.0 [facility] Comment on above: Performed By: #### P OCGL #### [place] [address] PLATELET 148 thou/mm3 Normal 130-400 [facility] Comment on above: Performed By: #### P OCGL #### [address] [id number] Platelet mean volume (Bld) [Entitic vol] 9.1 fL Low 9.4-12.4 [facility] Comment on above: Performed By: #### P OCGL #### [place] [address] RBC 2.52 mill/mm3 Low 4.70-6.10 [facility] Comment on above: Performed By: #### P OCGL #### [address] [id number] RDW-SD 45.0 fL Normal 35.0-45.0 [facility] Comment on above: Performed By: #### P OCGL #### [address] [id number] WBC 3.9 thou/mm3 Low 4.8-10.8 [facility] Comment on above: Performed By: #### P OCGL #### [address] [address] GFR, ESTIMATEDon 07-25-2022 GFR/1.73 sq M.predicted MDRD (S/P/Bld) [Vol rate/Area] 26 mL/min/{1.73_m2} Abnormal >60 [facility] Comment on above: Result Comment: Phili atric calculator link https://www.kidney.org/professionals/kdoqi/gfr_calculatorped Effective Jan 08, [...] secretion. Performed By: #### P OCGL #### [address] [address] GLUCOSE POCon 07-25-2022 Glucose [Mass/Vol] 342 mg/dL High [address] [place] [address] Comment on above: Performed By: #### P OCGL #### [address] [address] Glucose [Mass/Vol] 318 mg/dL [address] Comment on above: Performed By: #### P OCGL #### [address] [address] Glucose [Mass/Vol] 313 mg/dL [address] Comment on above: Performed By: #### P OCGL #### [address] [address] Glucose [Mass/Vol] 404 mg/dL [address] Comment on above: Performed By: #### P OCGL #### [address] [address] Glucose [Mass/Vol] 295 mg/dL [address] Comment on above: Performed By: #### P OCGL #### [address] [address] Glucose [Mass/Vol] 334 mg/dL [address] Comment on above: Performed By: #### P OCGL #### [address] [address] Glomerular Filtration Rate, Estimatedon 07-25-2022 GFR/1.73 sq M.predicted MDRD (S/P/Bld) [Vol rate/Area] 26 mL/min/{1.73_m2} Abnormal - PINF [facility] Comment on above: Pediatric calculator link https://www.kidney.org/professionals/kdoqi/gfr_calculatorped [...] that affects renal tubular secretion. Performed at [facility] [address] [place] [address] Glucose Auto test strip (Bld ) [Mass/Vol]on 07-25-2022 Glucose [Mass/Vol] 334 mg/dL High 70 - 108 mg/dl [facility] Comment on above: Performed at [facility] [address] [place] [address] Interpretation and review of laboratory results Abnormal [facility] Glucose [Mass/Vol] 342 mg/dL High 70 - 108 mg/dl [facility] Comment on above: Performed at [facility] [address] [place] [address] Interpretation and review of laboratory results Abnormal [facility] Glucose [Mass/Vol] 318 mg/dL High 70 - 108 mg/dl [facility] Comment on above: Performed at [facility] [address] [place] [address] Interpretation and review of laboratory results Abnormal [facility] Glucose [Mass/Vol] 313 mg/dL High 70 - 108 mg/dl [facility] Comment on above: Performed at [facility] [address] [place] [address] Interpretation and review of laboratory results Abnormal [facility] Glucose [Mass/Vol] 404 mg/dL High 70 - 108 mg/dl [facility] Comment on above: Performed at [facility] [address] [place] [address] Interpretation and review of laboratory results Abnormal [facility] Glucose [Mass/Vol] 295 mg/dL High 70 - 108 mg/dl [facility] Comment on above: Performed at [facility] [address] [place] [address] Interpretation and review of laboratory results Abnormal [facility] Glucose [Mass/Vol] 334 mg/dL High 70 - 108 mg/dl [facility] Comment on above: Performed at [facility] [address] [place] [address] Interpretation and review of laboratory results Abnormal [facility] No Panel Informationon 07-25 Interpretation and review of laboratory results Abnormal [facility] XR LUMBAR SPINE (2-3 VIEWS)o n 07-25-2022 Redemonstration of laminectomies at L2-S1 with posterior fusion without acute abnormality identified. This report has been created using voice recognition software. It may contain minor errors which are inherent in voice recognition technology. Final report electronically signed by Dr. Lalo Polanco DO, MD on 07/25/2022 3:57 PM [facility] Lalo Weinstein DO - 07/25/2022 PROCEDURE: [...] Polanco DO, MD on 07/25/2022 3:57 PM [facility] Work Phone: Radiology Study observation (narrative) [facility] Work Phone: XR LUMBAR SPINE (2-3 VIEWS)O rdered By: Lalo Polanco on 07-25-2022 [facility] Work Phone: ANION GAPon 07-24-2022 Anion gap [Moles/Vol] 12.0 mmol/L Normal 8.0-16.0 [facility] Comment on above: Result Comment: ANIO N GAP = Sodium -(Chloride + CO2) Performed By: #### P OCGL #### [facility] [address] [place] [address] Anion Gapon 07-24-2022 Anion gap [Moles/Vol] 12.0 mmol/L 8.0 - 16.0 meq/L [facility] Comment on above: ANION GAP = Sodium - (Chloride + CO2) Performed at [facility] [address] [place] [id number] BASIC METABOL PANELon 2022 Calcium [Mass/Vol] 8.0 mg/dL Low 8.5-10.5 [facility] Comment on above: Performed By: #### C BCND, ANION, EGFR1, BMP #### [address] [address] Chloride [Moles/Vol] 107 mmol/L Normal 98-111 [facility] Comment on above: Performed By: #### C BCND, ANION, EGFR1, BMP #### [address] [address] CO2 [Moles/Vol] 18 mmol/L Low 23-33 [facility] Comment on above: Performed By: #### C BCND, ANION, EGFR1, BMP #### [facility] [address] [address] Creatinine [Mass/Vol] 2.8 mg/dL High 0.4-1.2 [facility] Comment on above: Performed By: #### C BCND, ANION, EGFR1, BMP #### [address] [address] Glucose [Mass/Vol] 188 mg/dL High 70-108 [facility] Comment on above: Performed By: #### C BCND, ANION, EGFR1, BMP #### [facility] [address] [place] [address] Potassium [Moles/Vol] 5.6 mmol/L High 3.5-5.2 Rafael [facility] Comment on above: Performed By: #### C BCND, ANION, EGFR1, BMP #### [facility] [address] [place] [address] Sodium [Moles/Vol] 137 mmol/L Normal 135-145 [facility] Comment on above: Performed By: #### C BCND, ANION, EGFR1, BMP #### [facility] [address] [place] [address] Urea nitrogen [Mass/Vol] 41 mg/dL High 7-22 [facility] Comment on above: Performed By: #### C BCND, ANION, EGFR1, BMP #### [facility] [address] [place] [address] Basic metabolic 2000 panelon 07-24-2022 Calcium [Mass/Vol] 8.0 mg/dL Low 8.5 - 10. 5 mg/dL [facility] Comment on above: Performed at [facility] ion Medical Lab [address] [place] [address] Chloride [Moles/Vol] 107 mmol/L 98 - 11 1 meq/L [facility] CO2 [Moles/Vol] 18 mmol/L Low 23 - 33 meq/L [facility] Creatinine [Mass/Vol] 2.8 mg/dL High 0.4 - 1.2 mg/dL [facility] Glucose [Mass/Vol] 188 mg/dL High 70 - 108 mg/dL [facility] Potassium [Moles/Vol] 5.6 mmol/L High 3.5 - 5.2 meq/L [facility] Sodium [Moles/Vol] 137 mmol/L 135 - 145 meq/L [facility] Urea nitrogen [Mass/Vol] 41 mg/dL High 7 - 22 mg/dL [facility] CBCon 07-24-2022 Erythrocyte distribution width (RBC) [Entitic vol] 47.8 fL High 35.0 - 45.0 fL [facility] Erythrocyte distribution width (RBC) [Ratio] 13.9 % 11.5 - 14.5 % [facility] Hematocrit (Bld) [Volume fraction] 23.5 % Low 42.0 - 52.0 % [facility] Hemoglobin (Bld) [Mass/Vol] 7.4 g/dL Low [facility] Interpretation and review of laboratory results Abnormal [facility] MCH (RBC) [Entitic mass] 29.7 pg 26.0 - 33.0 pg [facility] MCHC (RBC) [Mass/Vol] 31.5 g/dL Low [facility] MCV (RBC) [Entitic vol] 94.4 fL High 80.0 - 94.0 fL [facility] Platelet mean volume (Bld) [Entitic vol] 8.9 fL Low 9.4 - 12.4 fL [facility] Comment on above: Performed at [facility] [address] [place] [address] Platelets (Bld) [#/Vol] 132 10*3/uL [facility] RBC (Bld) [#/Vol] 2.49 10*6/uL Low [facility] WBC (Bld) [#/Vol] 4.6 10*3/uL Low [facility] CBC NO DIFFERENTIALon 2022 Erythrocyte distribution width (RBC) [Ratio] 13.9 % Normal 11.5-14.5 [facility] Comment on above: Performed By: #### C BCND, ANION, EGFR1, BMP #### [facility] [address] [place] [address] Hematocrit (Bld) [Volume fraction] 23.5 % Low 42.0-52.0 [facility] Comment on above: Performed By: #### C BCND, ANION, EGFR1, BMP #### [facility] [address] [place] [address] Hemoglobin (Bld) [Mass/Vol] 7.4 g/dL Low 14.0-18.0 [facility] Comment on above: Performed By: #### C BCND, ANION, EGFR1, BMP #### [facility] [address] [place] [address] MCH (RBC) [Entitic mass] 29.7 pg Normal 26.0-33.0 [facility] Comment on above: Performed By: #### C BCND, ANION, EGFR1, BMP #### [place] [address] MCHC (RBC) [Mass/Vol] 31.5 g/dL Low 32.2-35.5 Rafael [facility] Comment on above: Performed By: #### C BCND, ANION, EGFR1, BMP #### [place] [address] MCV (RBC) [Entitic vol] 94.4 fL High 80.0-94.0 [facility] Comment on above: Performed By: #### C BCND, ANION, EGFR1, BMP #### [place] [address] PLATELET 132 thou/mm3 Normal 130-400 [facility] Comment on above: Performed By: #### C BCND, ANION, EGFR1, BMP #### [place] [address] Platelet mean volume (Bld) [Entitic vol] 8.9 fL Low 9.4-12.4 [facility] Comment on above: Performed By: #### C BCND, ANION, EGFR1, BMP #### [place] [address] RBC 2.49 mill/mm3 Low 4.70-6.10 [facility] Comment on above: Performed By: #### C BCND, ANION, EGFR1, BMP #### [place] [address] RDW-SD 47.8 fL High 35.0-45.0 [facility] Comment on above: Performed By: #### C BCND, ANION, EGFR1, BMP #### [place] [address] WBC 4.6 thou/mm3 Low 4.8-10.8 [facility] Comment on above: Performed By: #### C BCND, ANION, EGFR1, BMP #### [address] [address] GFR, ESTIMATEDon 07-24-2022 GFR/1.73 sq M.predicted MDRD (S/P/Bld) [Vol rate/Area] 23 mL/min/{1.73_m2} Abnormal >60 [facility] Comment on above: Result Comment: Shayla atric [...] secretion. Performed By: #### P OCGL #### [facility] [address] [place] [address] GLUCOSE POCon 07-24-2022 Glucose [Mass/Vol] 374 mg/dL High [address] [facility] Comment on above: Performed By: #### P OCGL ####[facility] [address] [place] [address] Glucose [Mass/Vol] 392 mg/dL [address] Comment on above: Performed By: #### H -A1C #### [facility] [address] [place] [address] Glucose [Mass/Vol] 391 mg/dL High [address] [facility] Comment on above: Performed By: #### P OCGL #### [facility] [address] [place] [address] Glucose [Mass/Vol] 225 mg/dL High [address] [facility] Comment on above: Performed By: #### P OCGL #### [facility] [address] [place] [address] Glomerular Filtration Rate, Estimatedon 07-24-2022 GFR/1.73 sq M.predicted MDRD (S/P/Bld) [Vol rate/Area] 23 mL/min/{1.73_m2} Abnormal - PINF [facility] Comment on above: Pediatric calculator link https://www.kidney.org/professionals/kdoqi/gfr_calculatorped [...] that affects renal tubular secretion. Performed at [facility] [address] [place] [address] Glucose Auto test strip (Bld ) [Mass/Vol]on 07-24-2022 Glucose [Mass/Vol] 374 mg/dL High 70 - 108 mg/dl [facility] Comment on above: Performed at [facility] [address] [place] [address] Interpretation and review of laboratory results Abnormal [facility] Glucose [Mass/Vol] 392 mg/dL High 70 - 108 mg/dl [facility] Comment on above: Performed at [facility] [address] [place] [address] Interpretation and review of laboratory results Abnormal [facility] Glucose [Mass/Vol] 391 mg/dL High 70 - 108 mg/dl [facility] Comment on above: Performed at [facility] [address] [place] [address] Interpretation and review of laboratory results Abnormal [facility] Glucose [Mass/Vol] 225 mg/dL High 70 - 108 mg/dl [facility] Comment on above: Performed at [facility] [address] [place] [address] Interpretation and review of laboratory results Abnormal [facility] No Panel Informationon 07-24 Interpretation and review of laboratory results Abnormal [facility] POTASSIUMon 07-24-2022 Potassium [Moles/Vol] 5.0 mmol/L Normal 3.5-5.2 [facility] Comment on above: Performed By: #### P OCGL #### [employer] [employer] [address] [place] [address] Potassiumon 07-24-2022 Potassium [Moles/Vol] 5.0 mmol/L 3.5 - 5.2 meq/L [facility] Comment on above: Performed at [facility] ion Medical Lab [address] [place] [address] Potassium [Moles/Vol]on 07-07 [facility] ANION GAPon 07-23-2022 Anion gap [Moles/Vol] 11.0 mmol/L Normal 8.0-16.0 [facility] Comment on above: Result Comment: ANIO N GAP = Sodium -(Chloride + CO2) Performed By: #### B MP, EGFR1, ANION, CBCND ####[facility] [address] [place] [address] Anion Gapon 07-23-2022 Anion gap [Moles/Vol] 11.0 mmol/L 8.0 - 16.0 meq/L [facility] Comment on above: ANION GAP = Sodium - (Chloride + CO2) Performed at [facility] [address] [place] [address] BASIC METABOL PANELon 2022 Calcium [Mass/Vol] 7.5 mg/dL Low 8.5-10.5 [facility] Comment on above: Performed By: #### B MP, EGFR1, ANION, CBCND ####[facility] [address] [place] [address] Chloride [Moles/Vol] 111 mmol/L Normal 98-111 [facility] Comment on above: Performed By: #### B MP, EGFR1, ANION, CBCND ####[facility] [address] [place] [address] CO2 [Moles/Vol] 19 mmol/L Low 23-33 [facility] Comment on above: Performed By: #### B MP, EGFR1, ANION, CBCND ####[facility] [address] [place] [address] Creatinine [Mass/Vol] 2.8 mg/dL High 0.4-1.2 [facility] Comment on above: Performed By: #### B MP, EGFR1, ANION, CBCND ####[facility] [address] [place] [address] Glucose [Mass/Vol] 113 mg/dL High 70-108 [facility] Comment on above: Performed By: #### B MP, EGFR1, ANION, CBCND ####[facility] [address] [place] [address] Potassium [Moles/Vol] 4.8 mmol/L Normal 3.5-5.2 [facility] Comment on above: Performed By: #### B MP, EGFR1, ANION, CBCND ####[facility] [address] [place] [address] Sodium [Moles/Vol] 141 mmol/L Normal 135-145 [facility] Comment on above: Performed By: #### B MP, EGFR1, ANION, CBCND ####[facility] [address] [place] [address] Urea nitrogen [Mass/Vol] 30 mg/dL High 7-22 [facility] Comment on above: Performed By: #### B MP, EGFR1, ANION, CBCND ####[facility] [address] [place] [address] Basic metabolic 2000 panelon 07-23-2022 Calcium [Mass/Vol] 7.5 mg/dL Low 8.5 - 10. 5 mg/dL [facility] Comment on above: Performed at [facility] ion Medical Lab [address] [place] [address] Chloride [Moles/Vol] 111 mmol/L 98 - 11 1 meq/L [facility] CO2 [Moles/Vol] 19 mmol/L Low 23 - 33 meq/L [facility] Creatinine [Mass/Vol] 2.8 mg/dL High 0.4 - 1.2 mg/dL [facility] Glucose [Mass/Vol] 113 mg/dL High 70 - 108 mg/dL [facility] Potassium [Moles/Vol] 4.8 mmol/L 3.5 - 5.2 meq/L [facility] Sodium [Moles/Vol] 141 mmol/L 135 - 145 meq/L [facility] Urea nitrogen [Mass/Vol] 30 mg/dL High 7 - 22 mg/dL [facility] CBCon 07-23-2022 Erythrocyte distribution width (RBC) [Entitic vol] 51.9 fL High 35.0 - 45.0 fL [facility] Erythrocyte distribution width (RBC) [Ratio] 15 % High 11.5 - 14.5 % [facility] Hematocrit (Bld) [Volume fraction] 23.2 % Low 42.0 - 52.0 % [facility] Hemoglobin (Bld) [Mass/Vol] 7.6 g/dL Low [facility] Interpretation and review of laboratory results Abnormal [facility] MCH (RBC) [Entitic mass] 31.4 pg 26.0 - 33.0 pg [facility] MCHC (RBC) [Mass/Vol] 32.8 g/dL [facility] MCV (RBC) [Entitic vol] 95.9 fL High 80.0 - 94.0 fL [facility] Platelet mean volume (Bld) [Entitic vol] 8.6 fL Low 9.4 - 12.4 fL [facility] Comment on above: Performed at [facility] [address] [place] [address] Platelets (Bld) [#/Vol] 128 10*3/uL Low [facility] RBC (Bld) [#/Vol] 2.42 10*6/uL Low [facility] WBC (Bld) [#/Vol] 6.7 10*3/uL [facility] CBC NO DIFFERENTIALon 2022 Erythrocyte distribution width (RBC) [Ratio] 15.0 % High 11.5-14.5 [facility] Comment on above: Performed By: #### P OCGL #### [facility] [address] [place] [address] Hematocrit (Bld) [Volume fraction] 23.2 % Low 42.0-52.0 [facility] Comment on above: Performed By: #### P OCGL #### [facility] [address] [place] [address] Hemoglobin (Bld) [Mass/Vol] 7.6 g/dL Low 14.0-18.0 [facility] Comment on above: Performed By: #### P OCGL #### [address] [address] MCH (RBC) [Entitic mass] 31.4 pg Normal 26.0-33.0 [facility] Comment on above: Performed By: #### P OCGL #### [address] [address] MCHC (RBC) [Mass/Vol] 32.8 g/dL Normal 32.2-35.5 [facility] Comment on above: Performed By: #### P OCGL #### [address] [address] MCV (RBC) [Entitic vol] 95.9 fL High 80.0-94.0 [facility] Comment on above: Performed By: #### P OCGL #### [address] [address] PLATELET 128 thou/mm3 Low 130-400 [facility] Comment on above: Performed By: #### P OCGL #### [address] [address] Platelet mean volume (Bld) [Entitic vol] 8.6 fL Low 9.4-12.4 [facility] Comment on above: Performed By: #### P OCGL #### [address] [address] RBC 2.42 mill/mm3 Low 4.70-6.10 [facility] Comment on above: Performed By: #### P OCGL #### [facility] [address] [address] RDW-SD 51.9 fL High 35.0-45.0 [facility] Comment on above: Performed By: #### P OCGL #### [facility] [address] [place] [address] WBC 6.7 thou/mm3 Normal 4.8-10.8 [facility] Comment on above: Performed By: #### P OCGL #### [facility] [address] [address] [address] HEAD WO CONTRASTon 2022 No evidence of an acute process. This report has been created using voice recognition software. It may contain minor errors which are inherent in voice recognition technology. Final report electronically signed by Dr. Gissel Escobedo on 07/23/2022 1:23 PM [facility] Gissel Steinberg MD - 07/23/2022 PROCEDURE: CT [...] Dr. Gissel Escobedo on 07/23/2022 1:23 PM [employer] Phone: Radiology Study observation (narrative) [employer] Phone: CT HEAD WO CONTRASTOrdered B y: Gissel Escobedo on 07-23-2022 [employer] Phone: GFR, ESTIMATEDon 07-23-2022 GFR/1.73 sq M.predicted MDRD (S/P/Bld) [Vol rate/Area] 23 mL/min/{1.73_m2} Abnormal >60 [facility] Comment on above: Result Comment: Shayla atric [...] By: #### B MP, EGFR1, ANION, CBCND ####[facility] [address] [place] [address] GLUCOSE POCon 07-23-2022 Glucose [Mass/Vol] 163 mg/dL High 70-108 [facility] Comment on above: Performed By: #### P OCGL #### [employer] [address] [place] [address] Glucose [Mass/Vol] 156 mg/dL High [address] [facility] Comment on above: Performed at [facility] [address] [place] [address] Performed By: #### P OCGL #### [employer] [address] [place] [address] Glucose [Mass/Vol] 152 mg/dL High [address] [facility] Comment on above: Performed By: #### P OCGL #### [employer] [address] [place] [address] Glucose [Mass/Vol] 151 mg/dL [facility] [address] [facility] Comment on above: Performed By: #### P OCGL #### [facility] [address] [place] [address] Glucose [Mass/Vol] 120 mg/dL High [address] [facility] Comment on above: Performed By: #### P OCGL #### [employer] [address] [place] [address] Gas panel (BldA)on 3 Arterial patency Wrist artery --pre arterial puncture Positive [employer] Base excess Calc (Bld) [Moles/Vol] -3.9000 mmol/L Low -2.5 - 2.5 mmol/l [employer] Body site L Brach [employer] CO2 (Bld) [Partial pressure] 42 mm[Hg] [employer] COLLECTED BY: [id number] [employer] Comment on above: Performed at [facility] [address] [place] [address] DEVICE Cannula [facility] [employer] HCO3 (Bld) [Moles/Vol] 22 mmol/L Low 23 - 28 mmol/l [facility] [employer] Interpretation and review of laboratory results Abnormal [facility] Oxygen (Bld) [Partial pressure] 99 mm[Hg] [facility] Oxygen/Inspired gas Respiratory system by O2 Analyzer --on ventilator 2 [facility] pH (Bld) 7.32 [pH] Low 7.35 - 7.45 [facility] Glomerular Filtration Rate, Estimatedon 07-23-2022 GFR/1.73 sq M.predicted MDRD (S/P/Bld) [Vol rate/Area] 23 mL/min/{1.73_m2} Abnormal - [facility] Comment on above: Pediatric calculator link https://www.kidney.org/professionals/kdoqi/gfr_calculatorped [...] that affects renal tubular secretion. Performed at [facility] [address] [place] [id number] Glucose Auto test strip (Bld ) [Mass/Vol]on 07-23-2022 Glucose [Mass/Vol] 163 mg/dL High 70 - 108 mg/dl [facility] Comment on above: Performed at [facility] [address] [place] [address] Interpretation and review of laboratory results Abnormal [facility] Glucose [Mass/Vol] 152 mg/dL High 70 - 108 mg/dl [facility] Comment on above: Performed at [facility] [address] [place] [address] Interpretation and review of laboratory results Abnormal [facility] Glucose [Mass/Vol] 151 mg/dL High 70 - 108 mg/dl [facility] Comment on above: Performed at [facility] [address] [place] [address] Interpretation and review of laboratory results Abnormal [facility] Glucose [Mass/Vol] 120 mg/dL High 70 - 108 mg/dl [facility] Comment on above: Performed at [facility] [address] [place] [address] Interpretation and review of laboratory results Abnormal [facility] ISTAT BLOOD GASon 07-23-2022 STEVE'S TEST Positive Normal [facility] Comment on above: Performed By: #### P OCGL #### [employer] [address] [place] [address] BASE EXCESS -3.9 mmol/l Low -2.5-2.5 [facility] Comment on above: Performed By: #### P OCGL #### [employer] [address] [place] [address] COLLECTED BY [id number] [facility] Comment on above: Performed By: #### P OCGL #### [employer] [address] [place] [address] DEVICE Cannula [facility] Comment on above: Performed By: #### P OCGL #### [employer] [address] [place] [address] FIO2 2 [facility] Comment on above: Performed By: #### P OCGL #### [employer] [address] [place] [address] HCO3 (Bld) [Moles/Vol] 22 mmol/L Low 23-28 [facility] Comment on above: Performed By: #### P OCGL #### [facility] [address] [place] [address] Oxygen (Bld) [Partial pressure] 99 mm[Hg] Normal 71-104 [facility] Comment on above: Performed By: #### P OCGL #### [facility] [address] [place] [address] Oxygen saturation in Blood 97 % Normal [facility] Comment on above: Performed By: #### P OCGL #### [facility] [employer] [address] [place] [address] PCO2 42 mmhg Normal 35-45 [facility] Comment on above: Performed By: #### P OCGL #### [facility] [address] [place] [address] pH (Bld) 7.32 [pH] Low 7.35-7.45 [facility] Comment on above: Performed By: #### P OCGL #### [employer] [address] [place] [address] SITE L Brach Normal [facility] Comment on above: Performed By: #### P OCGL #### [employer] [address] [place] [address] No Panel Informationon 07-23 Interpretation and review of laboratory results Abnormal [facility] URINALYSIS W/ MICROon 2022 CASTS >15 C.GRAN Normal NONE SEEN [facility] Comment on above: Performed By: #### P OCGL #### [facility] [place] [address] CASTS 2 0-[address] [facility] Comment on above: Performed By: #### P OCGL #### [facility] [place] [address] MISCELLANEOUS see below Normal [facility] Comment on above: Result Comment: See Below 0-4 HYALINE CASTS Performed By: #### P OCGL #### [employer] [address] [place] [address] MUCOUS THREADS Normal NONE SEEN/THREA [facility] Comment on above: Performed By: #### P OCGL #### [employer] [address] [place] [address] RBC 10-15 Normal 0-2/hpf [facility] Comment on above: Performed By: #### P OCGL #### [employer] [address] [place] [address] RENAL EPITHELIAL 3-5 Normal NONE SEEN [facility] Comment on above: Performed By: #### P OCGL #### [employer] [address] [place] [address] WBC 15-25 Normal 0-4/hpf [facility] Comment on above: Performed By: #### P OCGL #### [facility] [address] [place] [address] BACTERIA NONE SEEN Normal FEW/NONE SEEN [facility] Comment on above: Performed By: #### P OCGL #### [facility] [address] [facility] [place] [address] Crystals LM Nom (Urine sed) NONE SEEN Normal NONE SEEN [facility] Comment on above: Performed By: #### P OCGL #### [facility] [address] [place] [address] EPITHELIAL 25-50 Normal 3-5/hpf [facility] Comment on above: Performed By: #### P OCGL #### [address] [address] MISCELLANEOUS 2 NONE SEEN Normal [facility] Comment on above: Performed By: #### P OCGL #### [facility] [address] [address] YEAST NONE SEEN Normal NONE SEEN [facility] Comment on above: Performed By: #### P OCGL #### [facility] [address] [address] Bilirubin Ql (U) Negative Normal NEGATIVE [facility] Comment on above: Performed By: #### P OCGL #### [facility] [address] [place] [address] CHARACTER TURBID Abnormal CLR-SL.CLOUD [facility] Comment on above: Performed By: #### P OCGL #### [facility] [address] [place] [address] Color (U) YELLOW Normal YELLOW-STRAW [facility] Comment on above: Performed By: #### P OCGL #### [facility] [address] [place] [address] Glucose Ql (U) 100 mg/dl Abnormal NEGATIVE [facility] Comment on above: Performed By: #### P OCGL #### [facility] [address] [place] [address] Hemoglobin Ql (U) MODERATE Abnormal NEGATIVE [facility] Comment on above: Performed By: #### P OCGL #### [facility] [address] [place] [address] Ketones Ql (U) Negative Normal NEGATIVE [facility] Comment on above: Performed By: #### P OCGL #### [facility] [address] [place] [phone] LEUKOCYTES Negative Normal NEGATIVE [facility] Comment on above: Performed By: #### P OCGL #### [facility] [address] [place] [address] Nitrite Ql (U) Negative Normal NEGATIVE [facility] Comment on above: Performed By: #### P OCGL #### [address] [address] pH (U) 5.0 [pH] Normal 5.0 - 9.0 [facility] Comment on above: Performed By: #### P OCGL #### [address] [address] Protein Ql (U) >= 300 Abnormal NEGATIVE [facility] Comment on above: Performed By: #### P OCGL #### [address] [address] Specific gravity (U) [Rel density] 1.018 Normal 1.002-1.030 [facility] Comment on above: Performed By: #### P OCGL #### [address] [address] Urobilinogen Qn (U) 0.2 {Stevie'U}/dL Normal 0.0 - 1. 0 [facility] Comment on above: Performed By: #### P OCGL #### [address] [address] Urinalysis dipstick W Reflex Microscopic panel (U)on 07-23-2022 Bacteria, UA NONE SEEN FEW/NONE SEEN [facility] Bilirubin Ql (U) Negative NEGATIVE [facility] Casts LM.LPF (Urine sed) [#/Area] >15 C.GRAN NONE SEEN /lpf [facility] Casts LM.LPF (Urine sed) [#/Area] 0-4 FINE GRAN /lpf [facility] Character (U) TURBID Abnormal CLR-SL.CLOUD [facility] Charcoal LM Ql (Urine sed) NONE SEEN [facility] Comment on above: Performed at [facility] [address] [place] [address] Color (U) YELLOW YELLOW-STRAW [facility] Crystals LM Ql (Urine sed) NONE SEEN NONE SEEN [facility] Epithelial Cells, UA 25-50 3-5/hpf /hpf [facility] Epithelial cells.renal LM.HPF (Urine sed) [#/Area] 3-5 NONE SEEN [facility] Fungi.yeastlike LM Ql (Urine sed) NONE SEEN NONE SEEN [facility] Glucose Auto test strip Ql (U) 100 mg/dl Abnormal NEGATIVE [facility] Hemoglobin Auto test strip Ql (U) MODERATE Abnormal NEGATIVE [facility] Interpretation and review of laboratory results Abnormal [facility] Ketones Auto test strip Ql (U) Negative NEGATIVE [facility] Leukocyte esterase Auto test strip Ql (U) Negative NEGATIVE [facility] Miscellaneous Lab Test Result see below [facility] Comment on above: See Below 0-4 HYALINE CASTS Mucus Ql (Urine sed) THREADS NONE SEEN/THREA [facility] Nitrite Auto test strip Ql (U) Negative NEGATIVE [facility] pH (U) 5.0 [pH] 5.0 - 9.0 [facility] Protein (U) [Mass/Vol] mg/dL Abnormal NEGAT AMADA mg/dl [facility] RBC LM.HPF (Urine sed) [#/Area] 10-15 0-2/hpf /hpf [facility] Specific gravity Refractometry automated (U) [Rel density] 1.018 1.002 - 1.030 [facility] Urobilinogen Ql (U) 0.2 [facility] WBC LM.HPF (Urine sed) [#/Area] 15-25 0-4/hpf /hpf [facility] VL DUP LOWER EXTREMITY VENOU S BILATERALon 07-23-2022 No evidence of a DVT. This report has been created using voice recognition software. It may contain minor errors which are inherent in voice recognition technology. Final report electronically signed by Dr Héctor Mcdonnell on 07/23/2022 5:19 PM [facility] Héctor White MD - 07/23/2022 PROCEDURE: VL DUP LOWER [...] Dr Héctor Mcdonnell on 07/23/2022 5:19 PM [employer] Work Phone: Radiology Study observation (narrative) [employer] Work Phone: VL DUP LOWER EXTREMITY VENOU S BILATERALOrdered By: Héctor Mcdonnell on 07-23-2022 [facility] [employer]Talk AMMONIAon 07-22-2022 Ammonia (P) [Moles/Vol] 36 umol/L Normal 11-60 [facility] Comment on above: Performed By: #### P OCGL #### [employer] [address] [place] [address] ANION GAPon 07-22-2022 Anion gap [Moles/Vol] 12.0 mmol/L Normal 8.0-16.0 [facility] Comment on above: Result Comment: ANIO N GAP = Sodium -(Chloride + CO2) Performed By: #### P OCGL #### [employer] [address] [place] [address] Anion gap [Moles/Vol] 10.0 mmol/L Normal 8.0-16.0 [facility] Comment on above: Result Comment: ANIO N GAP = Sodium -(Chloride + CO2) Performed By: #### P OCGL #### [facility] [place] [address] Ammonia (P) [Mass/Vol]on Ammonia (P) [Moles/Vol] 36 umol/L 11 - 60 umol/L [facility] Comment on above: Performed at [facility] Medical Lab [address] [place] [address] Anion Gapon 07-22-2022 Anion gap [Moles/Vol] 12.0 mmol/L 8.0 - 16.0 meq/L [facility] Comment on above: ANION GAP = Sodium - (Chloride + CO2) Performed at [facility] [address] [place] [address] Anion gap [Moles/Vol] 10.0 mmol/L 8.0 - 16.0 meq/L [facility] Comment on above: ANION GAP = Sodium - (Chloride + CO2) Performed at [facility] [address] [place] [address] BASIC METABOL PANELon 2022 Calcium [Mass/Vol] 7.5 mg/dL Low 8.5-10.5 [facility] Comment on above: Performed By: #### P OCGL #### [facility] [employer] [address] [address] Chloride [Moles/Vol] 109 mmol/L Normal 98-111 [facility] Comment on above: Performed By: #### P OCGL #### [facility] [address] [place] [address] CO2 [Moles/Vol] 18 mmol/L Low 23-33 [facility] Comment on above: Performed By: #### P OCGL #### [employer] [facility] [address] [place] [address] Creatinine [Mass/Vol] 2.4 mg/dL High 0.4-1.2 [facility] Comment on above: Performed By: #### P OCGL #### [facility] [address] [place] [address] Glucose [Mass/Vol] 167 mg/dL High 70-108 [facility] Comment on above: Performed By: #### P OCGL #### [facility] [address] [place] [address] Potassium [Moles/Vol] 4.7 mmol/L Normal 3.5-5.2 [facility] Comment on above: Performed By: #### P OCGL #### [facility] [address] [facility] [place] [address] Sodium [Moles/Vol] 139 mmol/L Normal 135-145 [facility] Comment on above: Performed By: #### P OCGL #### [facility] [address] [facility] [place] [address] Urea nitrogen [Mass/Vol] 25 mg/dL High 7-22 [facility] Comment on above: Performed By: #### P OCGL #### [facility] [address] [facility] [place] [address] Calcium [Mass/Vol] 6.9 mg/dL Low 8.5-10.5 [facility] Comment on above: Performed By: #### P OCGL #### [facility] [address] [place] [address] [place] [address] Chloride [Moles/Vol] 111 mmol/L Normal 98-111 [facility] Comment on above: Performed By: #### P OCGL #### [facility] [address] [facility] [place] [address] CO2 [Moles/Vol] 18 mmol/L Low 23-33 [facility] Comment on above: Performed By: #### P OCGL #### [facility] [address] [place] [address] Creatinine [Mass/Vol] 2.4 mg/dL High 0.4-1.2 [facility] Comment on above: Performed By: #### P OCGL #### [facility] [address] [place] [address] Glucose [Mass/Vol] 119 mg/dL High 70-108 [facility] Comment on above: Performed By: #### P OCGL #### [facility] [address] [place] [address] Potassium [Moles/Vol] 4.5 mmol/L Normal 3.5-5.2 [facility] Comment on above: Performed By: #### P OCGL #### [facility] [address] [place] [address] Sodium [Moles/Vol] 139 mmol/L Normal 135-145 [facility] Comment on above: Performed By: #### P OCGL #### [facility] [address] [place] [address] Urea nitrogen [Mass/Vol] 23 mg/dL High 7-22 [facility] Comment on above: Performed By: #### P OCGL #### [facility] [address] [place] [address] Basic metabolic 2000 panelon 07-22-2022 Calcium [Mass/Vol] 7.5 mg/dL Low 8.5 - 10. 5 mg/dL [facility] Comment on above: Performed at [facility] [address] [place] [address] Chloride [Moles/Vol] 109 mmol/L 98 - 11 1 meq/L [facility] CO2 [Moles/Vol] 18 mmol/L Low 23 - 33 meq/L [facility] Creatinine [Mass/Vol] 2.4 mg/dL High [...] [facility] Comment on above: Performed at [facility] [employer] [facility] [address] [place] [address] Chloride [Moles/Vol] 111 mmol/L 98 - 11 1 meq/L [facility] CO2 [Moles/Vol] 18 mmol/L Low 23 - 33 meq/L [facility] Creatinine [Mass/Vol] 2.4 mg/dL High 0.4 - 1.2 mg/dL [facility] Glucose [Mass/Vol] 119 mg/dL High 70 - 108 mg/dL [facility] Potassium [Moles/Vol] 4.5 mmol/L 3.5 - 5.2 meq/L [facility] Sodium [Moles/Vol] 139 mmol/L 135 - 145 meq/L [facility] Urea nitrogen [Mass/Vol] 23 mg/dL High 7 - 22 mg/dL [facility] CBCon 07-22-2022 Erythrocyte distribution width (RBC) [Entitic vol] 54.9 fL High 35.0 - 45.0 fL [facility] Erythrocyte distribution width (RBC) [Ratio] 15.3 % High 11.5 - 14.5 % [facility] Hematocrit (Bld) [Volume fraction] 26.8 % Low 42.0 - 52.0 % [facility] Hemoglobin (Bld) [Mass/Vol] 8.1 g/dL Low [facility] Interpretation and review of laboratory results Abnormal [facility] MCH (RBC) [Entitic mass] 29.9 pg 26.0 - 33.0 pg [facility] MCHC (RBC) [Mass/Vol] 30.2 g/dL Low [facility] MCV (RBC) [Entitic vol] 98.9 fL High 80.0 - 94.0 fL [facility] Platelet mean volume (Bld) [Entitic vol] 8.9 fL Low 9.4 - 12.4 fL [facility] Comment on above: Performed at [facility] [address] [place] [address] Platelets (Bld) [#/Vol] 157 10*3/uL [facility] RBC (Bld) [#/Vol] 2.71 10*6/uL Low [facility] WBC (Bld) [#/Vol] 8.0 10*3/uL [facility] Erythrocyte distribution width (RBC) [Entitic vol] 54.4 fL High 35.0 - 45.0 fL [facility] Erythrocyte distribution width (RBC) [Ratio] 15.1 % High 11.5 - 14.5 % [facility] Hematocrit (Bld) [Volume fraction] 26.2 % Low 42.0 - 52.0 % [facility] Hemoglobin (Bld) [Mass/Vol] 8.0 g/dL Low [facility] Interpretation and review of laboratory results Abnormal [facility] MCH (RBC) [Entitic mass] 30.4 pg 26.0 - 33.0 pg [facility] MCHC (RBC) [Mass/Vol] 30.5 g/dL Low [facility] MCV (RBC) [Entitic vol] 99.6 fL High 80.0 - 94.0 fL [facility] Platelet mean volume (Bld) [Entitic vol] 8.8 fL Low 9.4 - 12.4 fL [facility] Comment on above: Performed at [facility] [address] [place] [address] Platelets (Bld) [#/Vol] 137 10*3/uL [facility] RBC (Bld) [#/Vol] 2.63 10*6/uL Low [facility] WBC (Bld) [#/Vol] 7.2 10*3/uL [facility] CBC NO DIFFERENTIALon 2022 Erythrocyte distribution width (RBC) [Ratio] 15.3 % High 11.5-14.5 [facility] Comment on above: Performed By: #### P OCGL #### [facility] [address] [place] [address] Hematocrit (Bld) [Volume fraction] 26.8 % Low 42.0-52.0 [facility] Comment on above: Performed By: #### P OCGL #### [facility] [address] [place] [address] Hemoglobin (Bld) [Mass/Vol] 8.1 g/dL Low 14.0-18.0 [facility] Comment on above: Performed By: #### P OCGL #### [facility] [address] [place] [address] MCH (RBC) [Entitic mass] 29.9 pg Normal 26.0-33.0 [facility] Comment on above: Performed By: #### P OCGL #### [address] [address] MCHC (RBC) [Mass/Vol] 30.2 g/dL Low 32.2-35.5 [facility] Comment on above: Performed By: #### P OCGL #### [address] [address] MCV (RBC) [Entitic vol] 98.9 fL High 80.0-94.0 [facility] Comment on above: Performed By: #### P OCGL #### [address] [address] PLATELET 157 thou/mm3 Normal 130-400 [facility] Comment on above: Performed By: #### P OCGL #### [address] [address] Platelet mean volume (Bld) [Entitic vol] 8.9 fL Low 9.4-12.4 [facility] Comment on above: Performed By: #### P OCGL #### [address] [address] RBC 2.71 mill/mm3 Low 4.70-6.10 [facility] Comment on above: Performed By: #### P OCGL #### [address] [address] RDW-SD 54.9 fL High 35.0-45.0 [facility] Comment on above: Performed By: #### P OCGL #### [facility] [address] [address] WBC 8.0 thou/mm3 Normal 4.8-10.8 [facility] Comment on above: Performed By: #### P OCGL #### [address] [address] Erythrocyte distribution width (RBC) [Ratio] 15.1 % High 11.5-14.5 [facility] Comment on above: Performed By: #### P OCGL #### [address] [address] Hematocrit (Bld) [Volume fraction] 26.2 % Low 42.0-52.0 [facility] Comment on above: Performed By: #### P OCGL #### [place] [id number] Hemoglobin (Bld) [Mass/Vol] 8.0 g/dL Low 14.0-18.0 [facility] Comment on above: Performed By: #### P OCGL #### [place] [address] MCH (RBC) [Entitic mass] 30.4 pg Normal 26.0-33.0 [facility] Comment on above: Performed By: #### P OCGL #### [place] [address] MCHC (RBC) [Mass/Vol] 30.5 g/dL Low 32.2-35.5 [facility] Comment on above: Performed By: #### P OCGL #### [place] [address] MCV (RBC) [Entitic vol] 99.6 fL High 80.0-94.0 [facility] Comment on above: Performed By: #### P OCGL #### [place] [address] PLATELET 137 thou/mm3 Normal 130-400 [facility] Comment on above: Performed By: #### P OCGL #### [place] [address] Platelet mean volume (Bld) [Entitic vol] 8.8 fL Low 9.4-12.4 [facility] Comment on above: Performed By: #### P OCGL #### [place] [id number] RBC 2.63 mill/mm3 Low 4.70-6.10 [facility] Comment on above: Performed By: #### P OCGL #### [place] [id number] RDW-SD 54.4 fL High 35.0-45.0 [facility] Comment on above: Performed By: #### P OCGL #### [address] [address] WBC 7.2 thou/mm3 Normal 4.8-10.8 [facility] Comment on above: Performed By: #### P OCGL #### [address] [address] GFR, ESTIMATEDon 07-22-2022 GFR/1.73 sq M.predicted MDRD (S/P/Bld) [Vol rate/Area] 28 mL/min/{1.73_m2} Abnormal >60 [facility] Comment on above: Result Comment: Pedi atric [...] secretion. Performed By: #### P OCGL #### [address] [address] GFR/1.73 sq M.predicted MDRD (S/P/Bld) [Vol rate/Area] 28 mL/min/{1.73_m2} Abnormal >60 [facility] Comment on above: Result Comment: Pedi atric [...] secretion. Performed By: #### P OCGL #### [address] [address] GLUCOSE POCon 07-22-2022 Glucose [Mass/Vol] 213 mg/dL High 70-108 [facility] Comment on above: Performed By: #### P OCGL #### [facility] [address] [place] [address] Glucose [Mass/Vol] 126 mg/dL High 70-108 [facility] Comment on above: Performed By: #### P OCGL #### [facility] [address] [place] [address] Glucose [Mass/Vol] 132 mg/dL High 70-108 [facility] Comment on above: Performed By: #### P OCGL #### [facility] [address] [place] [address] Glucose [Mass/Vol] 128 mg/dL High 70-108 [facility] Comment on above: Performed By: #### P OCGL ####[facility] [address] [place] [address] Glomerular Filtration Rate, Estimatedon 07-22-2022 GFR/1.73 sq M.predicted MDRD (S/P/Bld) [Vol rate/Area] 28 mL/min/{1.73_m2} Abnormal - PINF [facility] Comment on above: Pediatric calculator link https://www.kidney.org/professionals/kdoqi/gfr_calculatorped [...] that affects renal tubular secretion. Performed at [facility] [address] [place] [address] GFR/1.73 sq M.predicted MDRD (S/P/Bld) [Vol rate/Area] 28 mL/min/{1.73_m2} Abnormal - PINF [facility] Comment on above: Pediatric calculator link https://www.kidney.org/professionals/kdoqi/gfr_calculatorped [...] that affects renal tubular secretion. Performed at [facility] [address] [place] [address] Glucose Auto test strip (Bld ) [Mass/Vol]on 07-22-2022 Glucose [Mass/Vol] 213 mg/dL High 70 - 108 mg/dl [facility] Comment on above: Performed at [facility] [address] [place] [address] Interpretation and review of laboratory results Abnormal [facility] Glucose [Mass/Vol] 126 mg/dL High 70 - 108 mg/dl [facility] Comment on above: Performed at [facility] [address] [place] [address] Interpretation and review of laboratory results Abnormal [facility] Glucose [Mass/Vol] 132 mg/dL High 70 - 108 mg/dl [facility] Comment on above: Performed at [facility] [address] [place] [address] Interpretation and review of laboratory results Abnormal [facility] Glucose [Mass/Vol] 128 mg/dL High 70 - 108 mg/dl [facility] Comment on above: Performed at [facility] [address] [place] [address] Interpretation and review of laboratory results Abnormal [facility] No Panel Informationon 07-22 Interpretation and review of laboratory results Abnormal [facility] Interpretation and review of laboratory results Abnormal [facility] ANION GAPon 07-21-2022 Anion gap [Moles/Vol] 15.0 mmol/L Normal 8.0-16.0 [facility] Comment on above: Result Comment: ANIO N GAP = Sodium -(Chloride + CO2) Performed By: #### P OCGL #### [employer] [address] [place] [address] Anion Gapon 07-21-2022 Anion gap [Moles/Vol] 15.0 mmol/L 8.0 - 16.0 meq/L [facility] Comment on above: ANION GAP = Sodium - (Chloride + CO2) Performed at [address] [address] BASIC METABOL PANELon 2022 Calcium [Mass/Vol] 6.7 mg/dL Low 8.5-10.5 [facility] Comment on above: Performed By: #### P OCGL #### [address] [address] Chloride [Moles/Vol] 108 mmol/L Normal 98-111 [facility] Comment on above: Performed By: #### P OCGL #### [address] [address] CO2 [Moles/Vol] 18 mmol/L Low 23-33 [facility] Comment on above: Performed By: #### P OCGL #### [address] [address] Creatinine [Mass/Vol] 2.0 mg/dL High 0.4-1.2 [facility] Comment on above: Performed By: #### P OCGL #### [address] [address] Glucose [Mass/Vol] 113 mg/dL High 70-108 [facility] Comment on above: Performed By: #### P OCGL #### [address] [address] Potassium [Moles/Vol] 4.8 mmol/L Normal 3.5-5.2 [facility] Comment on above: Result Comment: Low level specimen hemolysis is present as indicated by the interference level index on the Cassidy analyzer. The reported K+ level may be falsely increased. If clinically warranted, recollection of the specimen is suggested. Performed By: #### P OCGL #### [address] [address] Sodium [Moles/Vol] 141 mmol/L Normal 135-145 [facility] Comment on above: Performed By: #### P OCGL #### [facility] [address] [place] [address] Urea nitrogen [Mass/Vol] 26 mg/dL High 7-22 [facility] Comment on above: Performed By: #### P OCGL #### [facility] [address] [place] [address] Basic metabolic 2000 panelon 07-21-2022 Calcium [Mass/Vol] 6.7 mg/dL Low 8.5 - 10. 5 mg/dL [facility] Comment on above: Performed at [facility] [address] [place] [address] Chloride [Moles/Vol] 108 mmol/L 98 - 11 1 meq/L [facility] [employer] CO2 [Moles/Vol] 18 mmol/L Low 23 - 33 meq/L [facility] [employer] Creatinine [Mass/Vol] 2 mg/dL High 0.4 - 1.2 mg/dL [facility] Glucose [Mass/Vol] 113 mg/dL High 70 - 108 mg/dL [facility] Potassium [Moles/Vol] 4.8 mmol/L 3.5 - 5.2 meq/L [facility] Comment on above: Low level specimen h emolysis is present as indicated by the interference level index on the Cassidy analyzer. The reported K+ level may be falsely increased. If clinically warranted, recollection of the specimen is suggested. Sodium [Moles/Vol] 141 mmol/L 135 - 145 meq/L [facility] Urea nitrogen [Mass/Vol] 26 mg/dL High 7 - 22 mg/dL [facility] [employer] CBCon 07-21-2022 Erythrocyte distribution width (RBC) [Entitic vol] 52.2 fL High 35.0 - 45.0 fL [facility] Erythrocyte distribution width (RBC) [Ratio] 14.9 % High 11.5 - 14.5 % [facility] Hematocrit (Bld) [Volume fraction] 27.2 % Low 42.0 - 52.0 % [facility] Hemoglobin (Bld) [Mass/Vol] 8.7 g/dL Low [facility] Interpretation and review of laboratory results Abnormal [facility] [employer] MCH (RBC) [Entitic mass] 30.7 pg 26.0 - 33.0 pg [facility] MCHC (RBC) [Mass/Vol] 32.0 g/dL Low [facility] MCV (RBC) [Entitic vol] 96.1 fL High 80.0 - 94.0 fL [facility] Platelet mean volume (Bld) [Entitic vol] 9.1 fL Low 9.4 - 12.4 fL [facility] [facility] Comment on above: Performed at [facility] [address] [place] [address] Platelets (Bld) [#/Vol] 158 10*3/uL [facility] RBC (Bld) [#/Vol] 2.83 10*6/uL Low [facility] WBC (Bld) [#/Vol] 6.8 10*3/uL [facility] CBC NO DIFFERENTIALon 2022 Erythrocyte distribution width (RBC) [Ratio] 14.9 % High 11.5-14.5 [facility] Comment on above: Performed By: #### P OCGL #### [employer] [address] [place] [address] Hematocrit (Bld) [Volume fraction] 27.2 % Low 42.0-52.0 [facility] Comment on above: Performed By: #### P OCGL #### [employer] [address] [place] [address] Hemoglobin (Bld) [Mass/Vol] 8.7 g/dL Low 14.0-18.0 [facility] Comment on above: Performed By: #### P OCGL #### [employer] [address] [place] [address] MCH (RBC) [Entitic mass] 30.7 pg Normal 26.0-33.0 [facility] Comment on above: Performed By: #### P OCGL #### [employer] [address] [place] [address] MCHC (RBC) [Mass/Vol] 32.0 g/dL Low 32.2-35.5 [facility] Comment on above: Performed By: #### P OCGL #### [address] [address] MCV (RBC) [Entitic vol] 96.1 fL High 80.0-94.0 [facility] Comment on above: Performed By: #### P OCGL #### [place] [id number] PLATELET 158 thou/mm3 Normal 130-400 [facility] Comment on above: Performed By: #### P OCGL #### [address] [address] Platelet mean volume (Bld) [Entitic vol] 9.1 fL Low 9.4-12.4 [facility] Comment on above: Performed By: #### P OCGL #### [address] [address] RBC 2.83 mill/mm3 Low 4.70-6.10 [facility] Comment on above: Performed By: #### P OCGL #### [place] [address] RDW-SD 52.2 fL High 35.0-45.0 [facility] Comment on above: Performed By: #### P OCGL #### [address] [address] WBC 6.8 thou/mm3 Normal 4.8-10.8 [facility] Comment on above: Performed By: #### P OCGL #### [address] [address] GFR, ESTIMATEDon 07-21-2022 GFR/1.73 sq M.predicted MDRD (S/P/Bld) [Vol rate/Area] 35 mL/min/{1.73_m2} Abnormal >60 [facility] Comment on above: Result Comment: Shayla atric [...] secretion. Performed By: #### P OCGL #### [facility] [address] [place] [address] GLUCOSE POCon 07-21-2022 Glucose [Mass/Vol] 119 mg/dL High 70-108 [facility] Comment on above: Performed By: #### P OCGL #### [facility] [address] [place] [address] Glucose [Mass/Vol] 115 mg/dL High 70-108 [facility] Comment on above: Performed By: #### P OCGL #### [facility] [address] [place] [address] Glucose [Mass/Vol] 120 mg/dL High 70-108 [facility] Comment on above: Performed By: #### P OCGL #### [facility] [address] [place] [address] Glucose [Mass/Vol] 111 mg/dL High 70-108 [facility] Comment on above: Performed By: #### P OCGL ####[facility] [address] [place] [address] Glomerular Filtration Rate, Estimatedon 07-21-2022 GFR/1.73 sq M.predicted MDRD (S/P/Bld) [Vol rate/Area] 35 mL/min/{1.73_m2} [facility] Comment on above: Pediatric calculator link https://www.kidney.org/professionals/kdoqi/gfr_calculatorped [...] that affects renal tubular secretion. Performed at [facility] [address] [place] [address] Glucose Auto test strip (Bld ) [Mass/Vol]on 07-21-2022 Glucose [Mass/Vol] 119 mg/dL High 70 - 108 mg/dl [facility] [employer] [facility] Comment on above: Performed at [facility] ion Medical Lab [address] [place] [address] Interpretation and review of laboratory results Abnormal [facility] Glucose [Mass/Vol] 115 mg/dL High 70 - 108 mg/dl [facility] Comment on above: Performed at [facility] ion Medical Lab [address] [place] [address] Interpretation and review of laboratory results Abnormal [facility] Glucose [Mass/Vol] 120 mg/dL High 70 - 108 mg/dl [facility] Comment on above: Performed at [facility] ion Medical Lab [address] [place] [address] Interpretation and review of laboratory results Abnormal [facility] Glucose [Mass/Vol] 111 mg/dL High 70 - 108 mg/dl [facility] Comment on above: Performed at [facility] ion Medical Lab [address] [place] [address] Interpretation and review of laboratory results Abnormal [facility] No Panel Informationon 07-21 Interpretation and review of laboratory results Abnormal [facility] ANION GAPon 07-20-2022 Anion gap [Moles/Vol] 8.0 mmol/L Normal 8.0-16.0 [facility] Comment on above: Result Comment: ANIO N GAP = Sodium -(Chloride + CO2) Performed By: #### E GFR1, ANION, CBCND, BMP ####[employer] [address] [place] [address] Anion Gapon 07-20-2022 Anion gap [Moles/Vol] 8.0 mmol/L 8.0 - 16.0 meq/L [facility] Comment on above: ANION GAP = Sodium - (Chloride + CO2) Performed at [facility] [address] [place] [address] BASIC METABOL PANELon 2022 Calcium [Mass/Vol] 7.7 mg/dL Low 8.5-10.5 [facility] Comment on above: Performed By: #### E GFR1, ANION, CBCND, BMP ####[employer] [place] [address] Chloride [Moles/Vol] 109 mmol/L Normal 98-111 [facility] Comment on above: Performed By: #### E GFR1, ANION, CBCND, BMP ####[facility] [address] [place] [address] CO2 [Moles/Vol] 25 mmol/L Normal 23-33 [facility] Comment on above: Performed By: #### E GFR1, ANION, CBCND, BMP ####[facility] [address] [place] [address] Creatinine [Mass/Vol] 2.1 mg/dL High 0.4-1.2 [facility] Comment on above: Performed By: #### E GFR1, ANION, CBCND, BMP ####[facility] [address] [place] [address] Glucose [Mass/Vol] 132 mg/dL High 70-108 [facility] Comment on above: Performed By: #### E GFR1, ANION, CBCND, BMP ####[facility] [address] [place] [address] Potassium [Moles/Vol] 4.2 mmol/L Normal 3.5-5.2 [facility] Comment on above: Performed By: #### E GFR1, ANION, CBCND, BMP ####[facility] [address] [place] [address] Sodium [Moles/Vol] 142 mmol/L Normal 135-145 [facility] Comment on above: Performed By: #### E GFR1, ANION, CBCND, BMP ####[facility] [address] [place] [address] Urea nitrogen [Mass/Vol] 30 mg/dL High 7-22 [facility] Comment on above: Performed By: #### E GFR1, ANION, CBCND, BMP ####[facility] [address] [place] [address] Basic metabolic 2000 panelon 07-20-2022 Calcium [Mass/Vol] 7.7 mg/dL Low 8.5 - 10. 5 mg/dL [facility] Comment on above: Performed at [facility] ion Medical Lab [address] [place] [address] Chloride [Moles/Vol] 109 mmol/L 98 - 11 1 meq/L [facility] CO2 [Moles/Vol] 25 mmol/L 23 - 33 meq/L [facility] Creatinine [Mass/Vol] 2.1 mg/dL High 0.4 - 1.2 mg/dL [facility] Glucose [Mass/Vol] 132 mg/dL High 70 - 108 mg/dL [facility] Potassium [Moles/Vol] 4.2 mmol/L 3.5 - 5.2 meq/L [facility] Sodium [Moles/Vol] 142 mmol/L 135 - 145 meq/L [facility] Urea nitrogen [Mass/Vol] 30 mg/dL High 7 - 22 mg/dL [facility] CBCon 07-20-2022 Erythrocyte distribution width (RBC) [Entitic vol] 49.7 fL High 35.0 - 45.0 fL [facility] Erythrocyte distribution width (RBC) [Ratio] 14.7 % High 11.5 - 14.5 % [facility] Hematocrit (Bld) [Volume fraction] 33.8 % Low 42.0 - 52.0 % [facility] Hemoglobin (Bld) [Mass/Vol] 11.2 g/dL Low [facility] Interpretation and review of laboratory results Abnormal [facility] MCH (RBC) [Entitic mass] 30.6 pg 26.0 - 33.0 pg [facility] MCHC (RBC) [Mass/Vol] 33.1 g/dL [facility] MCV (RBC) [Entitic vol] 92.3 fL 80.0 - 94.0 fL [facility] Platelet mean volume (Bld) [Entitic vol] 8.6 fL Low 9.4 - 12.4 fL [facility] Comment on above: Performed at [facility] ion Medical Lab [address] [place] [address] Platelets (Bld) [#/Vol] 180 10*3/uL [facility] RBC (Bld) [#/Vol] 3.66 10*6/uL Low [facility] WBC (Bld) [#/Vol] 7.3 10*3/uL [facility] [place] CBC NO DIFFERENTIALon 2022 Erythrocyte distribution width (RBC) [Ratio] 14.7 % High 11.5-14.5 [facility] Comment on above: Performed By: #### E GFR1, ANION, CBCND, BMP ####[facility] [address] [place] [address] Hematocrit (Bld) [Volume fraction] 33.8 % Low 42.0-52.0 [facility] Comment on above: Performed By: #### E GFR1, ANION, CBCND, BMP ####[facility] [address] [place] [address] Hemoglobin (Bld) [Mass/Vol] 11.2 g/dL Low 14.0-18.0 [facility] Comment on above: Performed By: #### E GFR1, ANION, CBCND, BMP ####[facility] [address] [place] [address] MCH (RBC) [Entitic mass] 30.6 pg Normal 26.0-33.0 [facility] Comment on above: Performed By: #### E GFR1, ANION, CBCND, BMP ####[facility] [address] [place] [address] MCHC (RBC) [Mass/Vol] 33.1 g/dL Normal 32.2-35.5 [facility] Comment on above: Performed By: #### E GFR1, ANION, CBCND, BMP ####[facility] [address] [place] [address] MCV (RBC) [Entitic vol] 92.3 fL Normal 80.0-94.0 [facility] Comment on above: Performed By: #### E GFR1, ANION, CBCND, BMP ####[facility] [address] [place] [address] PLATELET 180 thou/mm3 Normal 130-400 [facility] Comment on above: Performed By: #### E GFR1, ANION, CBCND, BMP ####[facility] [address] [place] [address] Platelet mean volume (Bld) [Entitic vol] 8.6 fL Low 9.4-12.4 [facility] Comment on above: Performed By: #### E GFR1, ANION, CBCND, BMP ####[facility] [address] [place] [address] RBC 3.66 mill/mm3 Low 4.70-6.10 [facility] Comment on above: Performed By: #### E GFR1, ANION, CBCND, BMP ####[facility] [address] [place] [address] RDW-SD 49.7 fL High 35.0-45.0 [facility] Comment on above: Performed By: #### E GFR1, ANION, CBCND, BMP ####[facility] [address] [place] [address] WBC 7.3 thou/mm3 Normal 4.8-10.8 [facility] Comment on above: Performed By: #### E GFR1, ANION, CBCND, BMP ####[facility] [address] [place] [address] FLUORO FOR SURGICAL PROCEDUR ESon 07-20-2022 FLUORO FOR SURGICAL PROCEDURES Radiology exam is complete. No Radiologist dictation. Please follow up with ordering provider. Normal [facility] Radiology exam is complete. No Radiologist dictation. Please follow up with ordering provider. [facility] RIS CONSOLIDATED GFR, ESTIMATEDon 07-20-2022 GFR/1.73 sq M.predicted MDRD (S/P/Bld) [Vol rate/Area] 33 mL/min/{1.73_m2} Abnormal >60 [facility] Comment on above: Result Comment: Pedi atric [...] By: #### E GFR1, ANION, CBCND, BMP ####[employer] [address] [place] [address] GLUCOSE POCon 07-20-2022 Glucose [Mass/Vol] 153 mg/dL High 70-108 [facility] Comment on above: Performed By: #### P OCGL #### [employer] [facility] [address] [place] [address] Glucose [Mass/Vol] 165 mg/dL High 70-108 [facility] Comment on above: Performed By: #### P OCGL #### [employer] [address] [place] [address] Glomerular Filtration Rate, Estimatedon 07-20-2022 GFR/1.73 sq M.predicted MDRD (S/P/Bld) [Vol rate/Area] 33 mL/min/{1.73_m2} Abnormal - PINF [employer] [facility] [employer] Comment on above: Pediatric calculator link https://www.kidney.org/professionals/kdoqi/gfr_calculatorped [...] that affects renal tubular secretion. Performed at [employer] [facility] [address] [place] [address] Glucose Auto test strip (Bld ) [Mass/Vol]on 07-20-2022 Glucose [Mass/Vol] 153 mg/dL High 70 - 108 mg/dl [employer] Comment on above: Performed at [facility] [address] [place] [address] Interpretation and review of laboratory results Abnormal [facility] Glucose [Mass/Vol] 165 mg/dL High 70 - 108 mg/dl [employer] Comment on above: Performed at [facility] [address] [place] [id number] Interpretation and review of laboratory results Abnormal [facility] HEMOGLOBIN A1Con 07-20-2022 Glucose [Mass/Vol] 138 mg/dL High 70-126 [facility] Comment on above: Performed By: #### H -A1C #### [employer] [facility] [address] [place] [address] HbA1c (Bld) [Mass fraction] 6.6 % High 4.4-6.4 [facility] Comment on above: Performed By: #### H -A1C #### [employer] [facility] [address] [place] [address] HGB,HCTon 07-20-2022 Hematocrit (Bld) [Volume fraction] 33.2 % Low 42.0-52.0 [facility] Comment on above: Performed By: #### P OCGL #### [facility] [address] [place] [address] Hemoglobin (Bld) [Mass/Vol] 10.9 g/dL Low 14.0-18.0 [facility] Comment on above: Performed By: #### P OCGL #### [employer] [address] [place] [address] HbA1c HPLC (Bld) [Mass fract ion]on 07-20-2022 Glucose mean value Estimated from glycated hemoglobin Qn (Bld) 138 mg/dL High 70 - 126 mg/dL [facility] Comment on above: Performed at [facility] [address] [place] [address] HbA1c (Bld) [Mass fraction] 6.6 % High 4.4 - 6.4 % [facility] Interpretation and review of laboratory results Abnormal [facility] No Panel Informationon 07-20 Interpretation and review of laboratory results Abnormal [facility] XR CHEST PORTABLEon 07-21-19 23 XR CHEST PORTABLE Chest X-ray: 1 view. [...] Leander Olsen MD 07/19/22 Final result Normal [facility] XR LUMBAR SPINE (2-3 VIEWS)o n 07-20-2022 [...] Ralph Prescott MD 07/20/22 Final result Normal [facility] Postop appearance lumbar spine. This report has been created using voice recognition software. It may contain minor errors which are inherent in voice recognition technology. Final report electronically signed by Dr. Ralph Prescott on 07/20/2022 4:23 PM [facility] CONSOLIDATED LUMBAR SPINE 2 VIEWS: CLINICAL INFORMATION: fusion COMPARISON: Earlier film same date, 0914 hours. TECHNIQUE: Standard AP and lateral views of lumbar spine were obtained. FINDINGS: Posterior lumbar fusion has been performed from L2 to S1 with additional screws extending across both sacroiliac joints. Moderate multifocal degenerative changes are seen. The lumbar vertebra appear normally aligned. [facility] Ralph Austin MD - 07/20/2022 LUMBAR SPINE [...] Dr. Ralph Prescott on 07/20/2022 4:23 PM [employer] Phone: Radiology Study observation (narrative) [employer] Phone: XR LUMBAR SPINE (2-3 VIEWS)O rdered By: Ralph Prescott on 07-20-2022 [employer] Phone: XR LUMBAR SPINE 1 VWon 07-20 Localizer at L2. This report has been created using voice recognition software. It may contain minor errors which are inherent in voice recognition technology. Final report electronically signed by Dr. Simba Castle on 07/20/2022 12:20 PM [facility] Simba Bagley MD - 07/20/2022 PROCEDURE: XR LUMBAR SPINE 1 VW CLINICAL INFORMATION: surgery . TECHNIQUE: Crosstable lateral portable done in the OR COMPARISON: No prior study. FINDINGS: Personnel Placement Specialist localizer overlies the pedicle of L2. IMPRESSION: Localizer at L2. This report has been created using voice recognition software. It may contain minor errors which are inherent in voice recognition technology. Final report electronically signed by Dr. Simba Castle on 07/20/2022 12:20 PM [employer] Phone: Radiology Study observation (narrative) [employer] Work Phone: XR LUMBAR SPINE 1 VWOrdered By: Simba Castle on 07-20-2022 [employer] Phone: ANION GAPon 07-19-2022 Anion gap [Moles/Vol] 10.0 mmol/L Normal 8.0-16.0 [facility] Comment on above: Result Comment: ANIO N GAP = Sodium -(Chloride + CO2) Performed By: #### C BCND, ANION, EGFR1, BMP #### [facility] [employer] [address] [place] [address] Anion Gapon 07-19-2022 Anion gap [Moles/Vol] 10.0 mmol/L 8.0 - 16.0 meq/L [employer] Comment on above: ANION GAP = Sodium - (Chloride + CO2) Performed at [facility] [address] [place] [address] BASIC METABOL PANELon 2022 Calcium [Mass/Vol] 7.9 mg/dL Low 8.5-10.5 [facility] Comment on above: Performed By: #### C BCND, ANION, EGFR1, BMP #### [facility] [address] [place] [address] Chloride [Moles/Vol] 107 mmol/L Normal 98-111 [facility] Comment on above: Performed By: #### C BCND, ANION, EGFR1, BMP #### [facility] [address] [place] [address] CO2 [Moles/Vol] 24 mmol/L Normal 23-33 [facility] Comment on above: Performed By: #### C BCND, ANION, EGFR1, BMP #### [facility] [address] [place] [address] Creatinine [Mass/Vol] 2.0 mg/dL High 0.4-1.2 [facility] Comment on above: Performed By: #### C BCND, ANION, EGFR1, BMP #### [facility] [address] [place] [address] Glucose [Mass/Vol] 231 mg/dL High 70-108 [facility] Comment on above: Performed By: #### C BCND, ANION, EGFR1, BMP #### [facility] [address] [place] [address] Potassium [Moles/Vol] 4.3 mmol/L Normal 3.5-5.2 [facility] Comment on above: Performed By: #### C BCND, ANION, EGFR1, BMP #### [facility] [address] [place] [address] Sodium [Moles/Vol] 141 mmol/L Normal 135-145 [facility] Comment on above: Performed By: #### C BCND, ANION, EGFR1, BMP #### [facility] [address] [place] [address] Urea nitrogen [Mass/Vol] 33 mg/dL High 7-22 [facility] Comment on above: Performed By: #### C BCND, ANION, EGFR1, BMP #### [facility] [address] [place] [address] Basic metabolic 2000 panelon 07-19-2022 Calcium [Mass/Vol] 7.9 mg/dL Low 8.5 - 10. 5 mg/dL [facility] Comment on above: Performed at [facility] ion Medical Lab [address] [place] [address] Chloride [Moles/Vol] 107 mmol/L 98 - 11 1 meq/L [facility] CO2 [Moles/Vol] 24 mmol/L 23 - 33 meq/L [facility] Creatinine [Mass/Vol] 2 mg/dL High 0.4 - 1.2 mg/dL [facility] Glucose [Mass/Vol] 231 mg/dL High 70 - 108 mg/dL [facility] Potassium [Moles/Vol] 4.3 mmol/L 3.5 - 5.2 meq/L [facility] Sodium [Moles/Vol] 141 mmol/L 135 - 145 meq/L [facility] Urea nitrogen [Mass/Vol] 33 mg/dL High 7 - 22 mg/dL [facility] CBCon 07-19-2022 Erythrocyte distribution width (RBC) [Entitic vol] 46.5 fL High 35.0 - 45.0 fL [facility] Erythrocyte distribution width (RBC) [Ratio] 13.7 % 11.5 - 14.5 % [facility] Hematocrit (Bld) [Volume fraction] 26.9 % Low 42.0 - 52.0 % [facility] Hemoglobin (Bld) [Mass/Vol] 8.8 g/dL Low [facility] Interpretation and review of laboratory results Abnormal [facility] MCH (RBC) [Entitic mass] 30.8 pg 26.0 - 33.0 pg [facility] MCHC (RBC) [Mass/Vol] 32.7 g/dL [facility] MCV (RBC) [Entitic vol] 94.1 fL High 80.0 - 94.0 fL [facility] Platelet mean volume (Bld) [Entitic vol] 9.1 fL Low 9.4 - 12.4 fL [facility] Comment on above: Performed at [facility] [address] [place] [address] Platelets (Bld) [#/Vol] 176 10*3/uL [facility] RBC (Bld) [#/Vol] 2.86 10*6/uL Low [facility] WBC (Bld) [#/Vol] 5.7 10*3/uL [facility] CBC NO DIFFERENTIALon 2022 Erythrocyte distribution width (RBC) [Ratio] 13.7 % Normal 11.5-14.5 [facility] Comment on above: Performed By: #### C BCND, ANION, EGFR1, BMP #### [employer] [address] [place] [address] Hematocrit (Bld) [Volume fraction] 26.9 % Low 42.0-52.0 [facility] Comment on above: Performed By: #### C BCND, ANION, EGFR1, BMP #### [facility] [address] [place] [address] Hemoglobin (Bld) [Mass/Vol] 8.8 g/dL Low 14.0-18.0 [facility] Comment on above: Performed By: #### C BCND, ANION, EGFR1, BMP #### [employer] [address] [place] [address] MCH (RBC) [Entitic mass] 30.8 pg Normal 26.0-33.0 [facility] Comment on above: Performed By: #### C BCND, ANION, EGFR1, BMP #### [employer] [address] [place] [address] MCHC (RBC) [Mass/Vol] 32.7 g/dL Normal 32.2-35.5 [facility] Comment on above: Performed By: #### C BCND, ANION, EGFR1, BMP #### [employer] [address] [place] [address] MCV (RBC) [Entitic vol] 94.1 fL High 80.0-94.0 [facility] Comment on above: Performed By: #### C BCND, ANION, EGFR1, BMP #### [facility] [address] [place] [address] PLATELET 176 thou/mm3 Normal 130-400 [facility] Comment on above: Performed By: #### C BCND, ANION, EGFR1, BMP #### [facility] [address] [place] [address] Platelet mean volume (Bld) [Entitic vol] 9.1 fL Low 9.4-12.4 [facility] Comment on above: Performed By: #### C BCND, ANION, EGFR1, BMP #### [employer] [address] [place] [id number] RBC 2.86 mill/mm3 Low 4.70-6.10 [facility] Comment on above: Performed By: #### C BCND, ANION, EGFR1, BMP #### [employer] [address] [place] [address] 15850 RDW-SD 46.5 fL High 35.0-45.0 [facility] Comment on above: Performed By: #### C BCND, ANION, EGFR1, BMP #### [employer] [address] [place] [address] 98681 WBC 5.7 thou/mm3 Normal 4.8-10.8 [facility] Comment on above: Performed By: #### C BCND, ANION, EGFR1, BMP #### [employer] [address] [place] [address] 01435 FERRITINon 07-19-2022 Ferritin [Mass/Vol] 105 ng/mL Normal 22-322 [facility] Comment on above: Performed By: #### H -A1C #### [facility] [address] [place] [address] 82465 Ferritinon 07-19-2022 Ferritin IA [Mass/Vol] 105 ng/mL 22 - 322 ng/mL [facility] Comment on above: Performed at [facility] [address] [place] [address]80 Ferritin IA [Mass/Vol]on [facility] GFR, ESTIMATEDon 07-19-2022 GFR/1.73 sq M.predicted MDRD (S/P/Bld) [Vol rate/Area] 35 mL/min/{1.73_m2} Abnormal >60 [facility] Comment on above: Result Comment: Shayla atric [...] #### C BCND, ANION, EGFR1, BMP #### [employer] [address] [place] [address] GLUCOSE POCon 07-19-2022 Glucose [Mass/Vol] 254 mg/dL High 70-108 [facility] Comment on above: Performed By: #### P OCGL #### [employer] [address] [place] [address] Glomerular Filtration Rate, Estimatedon 07-19-2022 GFR/1.73 sq M.predicted MDRD (S/P/Bld) [Vol rate/Area] 35 mL/min/{1.73_m2} Abnormal - [facility] [employer] Comment on above: Pediatric calculator link https://www.kidney.org/professionals/kdoqi/gfr_calculatorped [...] that affects renal tubular secretion. Performed at [facility] [address] [place] [address] Glucose Auto test strip (Bld ) [Mass/Vol]on 07-19-2022 Glucose [Mass/Vol] 254 mg/dL High 70 - 108 mg/dl [facility] Comment on above: Performed at [facility] [address] [place] [address] Interpretation and review of laboratory results Abnormal [facility] Hemoglobin and Hematocrit pa smith (Bld)on 07-19-2022 Hematocrit (Bld) [Volume fraction] 33.2 % Low 42.0 - 52.0 % [facility] Comment on above: Performed at [facility] [address] [place] [address] Hemoglobin (Bld) [Mass/Vol] 10.9 g/dL Low [facility] Interpretation and review of laboratory results Abnormal [facility] IRONon 07-19-2022 Iron [Mass/Vol] 58 ug/dL Low 65-195 [facility] Comment on above: Performed By: #### P OCGL #### [facility] [address] [place] [address] Ironon 07-19-2022 Iron [Mass/Vol] 58 ug/dL Low 65 - 195 ug/dL [facility] Comment on above: Performed at [facility] [address] [place] [address] Iron [Mass/Vol]on 07-19-2022 Interpretation and review of laboratory results Abnormal [facility] LEUKO-REDUCED RCon 3 -1 LEUKOREDUCED RED CELLS [id number] transfused Normal [facility] Comment on above: Performed By: #### C BCND, ANION, EGFR1, BMP #### [facility] [address] [place] [address] -1 LEUKOREDUCED RED CELLS [id number] transfused Normal [facility] Comment on above: Performed By: #### C BCND, ANION, EGFR1, BMP #### [facility] [address] [place] [address] No Panel Informationon 07-19 Interpretation and review of laboratory results Abnormal [facility] PREPARE RBC (CROSSMATCH), 1 Unitson 07-19-2022 [id number] transfused [facility] [id number] [facility] TYPE AND SCREENon 07-19-2022 ABO A [facility] Rh Factor Negative [facility] TYPE AND SCREEN CAPTUREon ABO CAPTURE A Normal [facility] Comment on above: Performed By: #### C BCND, ANION, EGFR1, BMP #### [facility] [address] [place] [address] INDIRECT GULSHAN CAPTURE Negative Normal [facility] Comment on above: Performed By: #### C BCND, ANION, EGFR1, BMP #### [facility] [address] [place] [address] RH CAPTURE (2 D CLONES) Negative Normal [facility] Comment on above: Performed By: #### C BCND, ANION, EGFR1, BMP #### [facility] [address] [place] [address] XR CHEST PORTABLEon 07-20-19 Impression: No acute cardiopulmonary disease. This document has been electronically signed by: Leander Olsen MD on 07/19/2022 10:58 PM [facility] Chest X-ray: 1 view. Indication: Pre-op. Comparison: None Findings: No focal consolidation, or pleural effusion. The cardiac silhouette is normal in size. Bony thorax is grossly intact. Spondylosis. [facility]IS CONSOL[facility] Leander Olsen MD - 07/19/2022 Chest X-ray: 1 view. Indication: Pre-op. Comparison: None Findings: No focal consolidation, or pleural effusion. The cardiac silhouette is normal in size. Bony thorax is grossly intact. Spondylosis. IMPRESSION: Impression: No acute cardiopulmonary disease. This document has been electronically signed by: Leander Olsen MD on 07/19/2022 10:58 PM [facility] [employer] Work Phone: Radiology Study observation (narrative) [facility] [employer] Work Phone: XR CHEST PORTABLEOrdered By: Leander Olsen on 07-19-2022 [facility] [employer] Work Phone: Office Visiton 07-18-2022 Follow-up visit [id number] Omer Santos 1950 M Date Provider Department Center 07/18/[address] [facility] Family History Problem Relation Age of Onset Coronary artery disease Father Other Father Heart attack Father Coronary artery disease Brother Heart attack Brother Other Brother Heart attack Paternal Grandfather Family Status - Relation Status Age at Father Brother Paternal Grandfather Level of Service:37863 [place] OFFICE/OUTPATIENT ESTABLISHED MOD MDM 30-39 MIN Reason for Visit and Comments: Follow-up [602306] - 6 month CAD, HTN Pre-op Exam [213200] - May already be cleared by family doctor reviewing stress test. Normal [facility] PTH INTACTon 07-13-2022 PTH, Intact 54 pg/mL Normal 15-65 [facility] Comment on above: Performed By: #### P THINT #### [facility] [address] [place] [address] Dr. Sarah Sánchez FERRITINon 07-12-2022 Ferritin [Mass/Vol] 94.0 ng/mL Normal 26.0-388.0 [facility] Comment on above: Performed By: #### H BSANS #### [facility] [address] [place] [address] Dr. Sarah Sánchez HEMOGRAM AND PLATELon 2022 Hematocrit (Bld) [Volume fraction] 30.4 % Critically low 42.0-54.0 [facility] Comment on above: Performed By: #### U DELFINO, RENAL, MG #### [facility] [address] [place] [address] Dr. Sarah Sánchez Hemoglobin (Bld) [Mass/Vol] 10.4 g/dL Critically low 14.0-18.0 [facility] Comment on above: Performed By: #### U DELFINO, RENAL, MG #### [facility] [address] [place] [address] Dr. Sarah Sánchez MCH (RBC) [Entitic mass] 31.0 pg Normal 25.9-34.0 [facility] Comment on above: Performed By: #### U DELFINO, RENAL, MG #### [facility] [address] [address] [address] Sarah Sánchez MCHC (RBC) [Mass/Vol] 34.2 g/dL Normal 29.9-35.2 [facility] Comment on above: Performed By: #### U DELFINO, RENAL, MG #### [facility] [address] [address] [address] Sarah Sánchez MCV (RBC) [Entitic vol] 90.5 fL Normal 80.0-94.0 [facility] Comment on above: Performed By: #### U DELFINO, RENAL, MG #### [facility] [address] [address] [address] Sarah Sánchez PLT 202 103/ul Normal 150-450 [facility] Comment on above: Performed By: #### U DELFINO, RENAL, MG #### [facility] [address] [place] [address] Dr. Sarah Sánchez RBC 3.36 106/ul Critically low 4.70-6.10 [facility] Comment on above: Performed By: #### U DELFINO, RENAL, MG #### [facility] [address] [place] [address] Dr. Sarah Sánchez WBC 6.7 103/ul Normal 4.0-11.0 [facility] Comment on above: Performed By: #### U DELFINO, RENAL, MG #### [facility] [address] [place] [address] Dr. Sarah Sánchez IRON AND TIBCon 07-12-2022 % SATURATION 30.1 % Normal [facility] Comment on above: Performed By: #### H BSANS #### [facility] [address] [place] [address] Dr. Sarah Sánchez Iron [Mass/Vol] 74.0 ug/dL Normal 65.0-175.[address] [facility] Comment on above: Performed By: #### H BSANS #### [facility] [address] [place] [address] Dr. Sarah Sánchez TIBC DIRECT 246.0 ug/dL Critically low 250.0-450.0 [facility] Comment on above: Performed By: #### H BSANS #### [facility] [address] [place], [place] [address] Dr. Sarah Sánchez MAGNESIUMon 07-12-2022 Magnesium [Mass/Vol] 1.1 mg/dL Critically low 1.8-2.4 [facility] Comment on above: Performed By: #### P THINT #### [facility] [id number] Sarah Sánchez NM STRESS/REST MULTIon 07-12 NM STRESS/REST MULTI Patient: OMER SANTOS Exam Date: 07/12/2022 : 1950 Gender:M Ordering : DR RUBEN LUO . Admission #: [id number] Family : DR VADIM VERONICA M.D. Order #: [id number] CLICK HERE TO VIEW EXAM RADIOLOGY REPORT [...] M.D. on 07/12/2022 at 15:17 Approved by: Memo Strickland M.D. on 07/12/2022 at 15:17 Normal [facility] RENAL FUNCTION PANELon 07-12 Albumin [Mass/Vol] 3.3 g/dL Critically low 3.4-5.0 [facility] Comment on above: Performed By: #### P THINT #### [facility] [address] [address] [address] Sarah Sánchez Calcium [Mass/Vol] 8.3 mg/dL Critically low 8.5-10.1 [facility] Comment on above: Performed By: #### P THINT #### [facility] [address] [address] [address] Sarah Sánchez Chloride [Moles/Vol] 107 mmol/L Normal 98-107 [facility] Comment on above: Performed By: #### P THINT #### [facility] [address] [place] [address] Dr. Sarah Sánchez CO2 [Moles/Vol] 26.4 mmol/L Normal 21.0-32.0 [facility] Comment on above: Performed By: #### P THINT #### [facility] [address] [place] [address] Dr. Sarah Sánchez Creatinine [Mass/Vol] 1.98 mg/dL Critically high 0.70-1.30 [facility] Comment on above: Performed By: #### P THINT #### [facility] [address] [place] [address] Dr. Sarah Sánchez EGFR-AF FILIPINO 40 mL/min/1.73m2 Critically low >=60 [facility] Comment on above: Performed By: #### P THINT #### [facility] [address] [place] [address] Dr. Sarah Sánchez EGFR-NON AF FILIPINO 33 mL/min/1.73m2 Critically low >=60 [facility] Comment on above: Performed By: #### P THINT #### [facility] [address] [place] [address] Dr. Sarah Sánchez Glucose [Mass/Vol] 149 mg/dL Critically high 74-106 [facility] Comment on above: Performed By: #### P THINT #### [facility] [address] [address] [address] Sarah Sánchez Phosphate [Mass/Vol] 4.0 mg/dL Normal 2.6-4.7 [facility] Comment on above: Performed By: #### P THINT #### [facility] [address] [place] [address] Dr. Sarah Sánchez Potassium [Moles/Vol] 4.5 mmol/L Normal 3.5-5.1 [facility] Comment on above: Performed By: #### P THINT #### [facility] [address] [place] [address] Dr. Sarah Sánchez Sodium [Moles/Vol] 141 mmol/L Normal 136-[address] [facility] Comment on above: Performed By: #### P THINT #### [facility] [address] [place] [address] Dr. Sarah Sánchez Urea nitrogen [Mass/Vol] 29.0 mg/dL Critically high 7.0-18.0 [facility] Comment on above: Performed By: #### P THINT #### [facility] [address] [place] [address] Dr. Sarah Sánchez UA RANDOM W/MICROSCOPICon BACTERIA TRACE Abnormal NONE SEEN [facility] Comment on above: Performed By: #### C VDTBH #### [facility] [address] [place] [address] Dr. Sarah Sánchez Bilirubin Ql (U) Negative Normal NEGATIVE [facility] Comment on above: Performed By: #### C VDTBH #### [facility] [address] [place] [address] Dr. Sarah Sánchez CAST NONE SEEN Normal NONE SEEN [facility] Comment on above: Performed By: #### C VDTBH #### [facility] [address] [place] [address] Dr. Sarah Sánchez Clarity (U) CLEAR Normal CLEAR [facility] Comment on above: Performed By: #### C VDTBH #### [facility] [address] [place] [address] Dr. Sarah Sánchez Color (U) LT. YELLOW Normal YELLOW [facility] Comment on above: Performed By: #### C VDTBH #### [facility] [address] [address] [address] Sarah Sánchez Crystals LM Nom (Urine sed) NONE SEEN Normal NONE SEEN [facility] Comment on above: Performed By: #### C VDTBH #### [facility] [address] [place] [address] Dr. Sarah Sánchez Epithelial cells LM Ql (Urine sed) RARE Normal NONE SEEN /RARE [facility] Comment on above: Performed By: #### C VDTBH #### [facility] [address] [place] [address] Dr. Sarah Sánchez Glucose Ql (U) 100 mg/dl Abnormal NEGATIVE [facility] Comment on above: Performed By: #### C VDTBH #### [facility] [address] [place] [address] Dr. Sarah Sánchez Hemoglobin Ql (U) MODERATE Abnormal NEGATIVE [facility] Comment on above: Performed By: #### C VDTBH #### [facility] [address] [place] [address] Dr. Sarah Sánchez Ketones Ql (U) Negative Normal NEGATIVE [facility] Comment on above: Performed By: #### C VDTBH #### [facility] [address] [place] [address] Dr. Sarah Sánchez LEUKOCYTES Negative Normal NEGATIVE [facility] Comment on above: Performed By: #### C VDTBH #### [facility] [address] [address] [address] Sarah Sánchez MUCOUS NONE SEEN Normal NONE SEEN [facility] Comment on above: Performed By: #### C VDTBH #### [facility] [address] [address] [address] Sarah Sánchez Nitrite Ql (U) Negative Normal NEGATIVE [facility] Comment on above: Performed By: #### C VDTBH #### [facility] [address] [place] [address] Dr. Sarah Sánchez pH (U) 5.5 [pH] Normal 5-9 [facility] Comment on above: Performed By: #### C VDTBH #### [facility] [address] [place] [address] Dr. Sarah Sánchez RBC 2-5 Abnormal 0-2 [facility] Comment on above: Performed By: #### C VDTBH #### [facility] [address] [place] [address] Dr. Sarah Sánchez SPEC GRAVITY 1.025 Normal 1.005-<=1.02 5 [facility] Comment on above: Performed By: #### C VDTBH #### [facility] [address] [place] [address] Dr. Sarah Sánchez UA PROTEIN >300 Abnormal NEGATIVE/ TRACE [facility] Comment on above: Performed By: #### C VDTBH #### [facility] [address] [place] [address] Dr. Sarah Sánchez Urobilinogen Qn (U) 0.2 {Stevie'U}/dL Normal 0.2 - 1. 0 [facility] Comment on above: Performed By: #### C VDTBH #### [facility] [address] [place] [address] Dr. Sarah Sánchez WBC NONE SEEN Normal NONE SEEN [facility] Comment on above: Performed By: #### C VDTBH #### [facility] [address] [place] [address] Dr. Sarah Sánchez URINE T PROTEIN CREAT RATIOo n 07-12-2022 Protein (U) [Mass/Vol] 901.3 mg/dL Critically high <=12.0 [facility] Comment on above: Performed By: #### C VDTBH #### [facility] [address] [place] [address] Dr. Sarah Sánchez UR PROT CREAT RAT 7.26 Normal [facility] Comment on above: Performed By: #### C VDTBH #### [facility] [address] [place] [address] Dr. Sarah Sánchez URINE CREAT 124.19 mg/dL Normal 20.00-300.00 [facility] Comment on above: Performed By: #### C VDTBH #### [facility] [address] [address] [address] Sarah Sánchez VITAMIN D 25 OHon 07-12-2022 VIT D 25-OH 24.7 ng/mL Normal [facility] Comment on above: Performed By: #### H BSANS #### [facility] [address] [place] [address] Dr. Sarah Sánchez VIT D RANGES SEE BELOW Normal [facility] Comment on above: Result Comment: <20 ng/mL Vit D deficient 20 - <30 ng/mL Vit D insufficient 30 - 100 ng/mL Vit D sufficient >100 ng/mL Potential Toxicity Performed By: #### H BSANS #### [facility] [address] [place] [address] Dr. Sarah Sánchez XR COMPARISON OF OUTSIDE QUEENIE MSon 2022 XR COMPARISON OF OUTSIDE FILMS Radiology exam is complete. No Radiologist dictation. Please follow up with ordering provider. Normal [facility] Radiology exam is complete. No Radiologist dictation. Please follow up with ordering provider. [facility]SOL[facility] CBC AUTO DIFFon 07-02-2022 BASO # 0.0 103/ul Normal 0.0-0.1 [facility] Comment on above: Performed By: #### U DELFINO, RENAL, MG #### [facility] [address] [place] [address] Dr. Sarah Sánchez Basophils/100 WBC (Bld) 0.5 % Normal 0.2-2.0 [facility] Comment on above: Performed By: #### U DELFINO, RENAL, MG #### [facility] [address] [place] [address] Dr. Sarah Sánchez EO # 0.2 103/ul Normal 0.0-0.7 [facility] Comment on above: Performed By: #### U DELFINO, RENAL, MG #### [facility] [address] [place] [address] Dr. Sarah Sánchez Eosinophils/100 WBC (Bld) 3.4 % Normal 0.9-7.0 [facility] Comment on above: Performed By: #### U DELFINO, RENAL, MG #### [facility] [address] [address] [address] Sarah Sánchez Erythrocyte distribution width (RBC) [Ratio] 13.7 % Normal 11.0-15.0 [facility] Comment on above: Performed By: #### U DELFINO, RENAL, MG #### [facility] [address] [address] [address] Sarah Sánchez Hematocrit (Bld) [Volume fraction] 27.4 % Critically low 42.0-54.0 [facility] Comment on above: Performed By: #### U DELFINO, RENAL, MG #### [facility] [address] [address] [address] Sarah Sánchez Hemoglobin (Bld) [Mass/Vol] 9.1 g/dL Critically low 14.0-18.0 [facility] Comment on above: Performed By: #### U DELFINO, RENAL, MG #### [facility] [address] [place] [address] Dr. Sarah Sánchez IG # 0.05 10e3/ul Critically high 0.00-0.03 [facility] Comment on above: Performed By: #### U DELFINO, RENAL, MG #### [facility] [address] [address] [address] Sarah Sánchez IG % 0.8 % Critically high 0.0-0.5 [facility] Comment on above: Performed By: #### U DELFINO, RENAL, MG #### [facility] [address] [address] [address] Sarah Sánchez LYMPH # 1.3 103/ul Normal 1.2-3.8 [facility] Comment on above: Performed By: #### U DELFINO, RENAL, MG #### [facility] [address] [address] [address] Sarah Sánchez Lymphocytes/100 WBC (Bld) 20.3 % Critically low 20.5-60.0 [facility] Comment on above: Performed By: #### U DELFINO, RENAL, MG #### [facility] [address] [address] [address] Sarah Sánchez MANUAL DIFF REQ NO Normal [facility] Comment on above: Performed By: #### U DELFINO, RENAL, MG #### [facility] [address] [place] [address] Dr. Sarah Sánchez MCH (RBC) [Entitic mass] 30.2 pg Normal 25.9-34.0 [facility] Comment on above: Performed By: #### U DELFINO, RENAL, MG #### [facility] [address] [place] [address] Dr. Sarah Sánchez MCHC (RBC) [Mass/Vol] 33.2 g/dL Normal 29.9-35.2 [facility] Comment on above: Performed By: #### U DELFINO, RENAL, MG #### [facility] [address] [place] [address] Dr. Sarah Sánchez MCV (RBC) [Entitic vol] 91.0 fL Normal 80.0-94.0 [facility] Comment on above: Performed By: #### U DELFINO, RENAL, MG #### [facility] [address] [place] [address] Dr. Sarah Sánchez MONO # 0.4 103/ul Normal 0.3-0.8 [facility] Comment on above: Performed By: #### U DELFINO, RENAL, MG #### [facility] [address] [place] [address] Dr. Sarah Sánchez Monocytes/100 WBC (Bld) 6.7 % Normal 1.7-12.0 [facility] Comment on above: Performed By: #### U DELFINO, RENAL, MG #### [facility] [address] [place] [address] Dr. Sarah Sánchez NEUT # 4.5 103/ul Normal 1.4-6.5 [facility] Comment on above: Performed By: #### U DELFINO, RENAL, MG #### [facility] [address] [place] [address] Dr. Sarah Sánchez Neutrophils/100 WBC (Bld) 68.3 % Normal 43.0-75.0 [facility] Comment on above: Performed By: #### U DELFINO, RENAL, MG #### [facility] [address] [place] [address] Dr. Sarah Sánchez Platelet mean volume (Bld) [Entitic vol] 9.7 fL Normal 9.5-13.5 [facility] Comment on above: Performed By: #### U DELFINO, RENAL, MG #### [facility] [address] [address] [address] Sarah Sánchez PLT 142 103/ul Critically low 150-450 [facility] Comment on above: Performed By: #### U DELFINO, RENAL, MG #### [facility] [address] [address] [address] Sarah Sánchez RBC 3.01 106/ul Critically low 4.70-6.10 [facility] Comment on above: Performed By: #### U DELFINO, RENAL, MG #### [facility] [address] [place] [address] Dr. Sarah Sánchez WBC 6.5 103/ul Normal 4.0-11.0 [facility] Comment on above: Performed By: #### U DELFINO, RENAL, MG #### [facility] [address] [place] [address] Dr. Sarah Sánchez MRSA NARES #1on 07-02-2022 MRSA NARES #1 Culture Observations: NO GROWTH OF MRSA OR MSSA AT [address] [facility] Comment on above: Performed By: #### P THINT #### [facility] [address] [place] [address] Dr. Sarah Sánchez MRSA NARES #2on 07-02-2022 MRSA NARES #2 Culture Observations: NO GROWTH OF MRSA OR MSSA AT 48 HOURS. Normal [facility] Comment on above: Performed By: #### P THINT #### [facility] [address] [place] [address] Dr. Sarah Sánchez PROF CHEM 8 (BAS METB)on Anion gap [Moles/Vol] 12.8 mmol/L [facility] Comment on above: Performed By: #### H BSANS #### [facility] [address] [place] [address] Dr. Sarah Sánchez Calcium [Mass/Vol] 8.0 mg/dL Critically low 8.5-10.1 Th [facility] Comment on above: Performed By: #### H BSANS #### [facility] [address] [address] [address] Sarah Sánchez Chloride [Moles/Vol] 113 mmol/L Critically high 98-107 [facility] Comment on above: Performed By: #### H BSANS #### [facility] [address] [address] [address] Sarah Sánchez CO2 [Moles/Vol] 21.9 mmol/L Normal 21.0-32.0 [facility] Comment on above: Performed By: #### H BSANS #### [facility] [address] [address] [address] Sarah Sánchez Creatinine [Mass/Vol] 2.49 mg/dL Critically high 0.70-1.30 [facility] Comment on above: Performed By: #### H BSANS #### [facility] [address] [place] [address] Dr. Sarah Sánchez EGFR-AF FILIPINO 31 mL/min/1.73m2 Critically low >=60 [facility] Comment on above: Performed By: #### H BSANS #### [facility] [address] [place] [address] Dr. Sarah Sánchez EGFR-NON AF FILIPINO 26 mL/min/1.73m2 Critically low >=60 [facility] Comment on above: Performed By: #### H BSANS #### [facility] [address] [place] [address] Dr. Sarah Sánchez Glucose [Mass/Vol] 153 mg/dL Critically high 74-106 [facility] Comment on above: Performed By: #### H BSANS #### [facility] [address] [address] [address] Sarah Sánchez Potassium [Moles/Vol] 4.7 mmol/L Normal 3.5-5.1 [facility] Comment on above: Performed By: #### H BSANS #### [facility] [address] [address] [address] Sarah Sánchez Sodium [Moles/Vol] 143 mmol/L Normal 136-145 [facility] Comment on above: Performed By: #### H BSANS #### [facility] [address] [place] [address] Dr. Sarah Sánchez Urea nitrogen [Mass/Vol] 50.0 mg/dL Critically high 7.0-18.0 [facility] Comment on above: Performed By: #### H BSANS #### [facility] [address] [place] [address] Dr. Sarah Sánchez Urea nitrogen/Creatinine [Mass ratio] 20.1 mg/mg Normal [facility] Comment on above: Performed By: #### H BSANS #### [facility] [address] [place] [address] Dr. Sarah Sánchez PROTIMEon 07-02-2022 INR Coag (PPP) [Relative time] 0.98 {INR} Normal [facility] Comment on above: Performed By: #### U RTPCR #### [facility] [address] [place] [address] Dr. Sarah Sánchez INR GUIDELINES SEE BELOW Normal [facility] Comment on above: Result Comment: DARIUS RED INR: 2.0 - 3.0 CONDITIONS NOT LISTED BELOW 2.5 - 3.5 FOR PROSTHETIC HEART VALVE REPLACEMENT 2.5 - 3.5 RECURRENT THROMBOSIS Performed By: #### U RTPCR #### [facility] [address] [place] [address] Dr. Sarah Sánchez PT Coag (PPP) [Time] 10.4 s Normal 9.0-11.6 [facility] Comment on above: Performed By: #### U RTPCR #### [facility] [address] [place] [address] Dr. Sarah Sánchez PTTon 07-02-2022 aPTT Coag (Bld) [Time] 20.5 s Critically low 22.3-36.2 [facility] Comment on above: Performed By: #### U RTPCR #### [facility] [address] [place] [address] Dr. Sarah Sánchez XR CHEST 2 Von [...] DIANE DUNCAN Date: 2022-07-02 09:05 Normal [facility] HEMOGRAM AND PLATELon 2022 Hematocrit (Bld) [Volume fraction] 28.5 % Critically low 42.0-54.0 [facility] Comment on above: Performed By: #### U RTPCR #### [facility] [address] [place] [address] Dr. Sarah Sánchez Hemoglobin (Bld) [Mass/Vol] 10.1 g/dL Critically low 14.0-18.0 [facility] Comment on above: Performed By: #### U RTPCR #### [facility] [address] [place] [address] Dr. Sarah Sánchez MCH (RBC) [Entitic mass] 31.3 pg Normal 25.9-34.0 [facility] Comment on above: Performed By: #### U RTPCR #### [facility] [address] [place] [address] Dr. Sarah Sánchez MCHC (RBC) [Mass/Vol] 35.4 g/dL Critically high 29.9-35.2 [facility] Comment on above: Performed By: #### U RTPCR #### [facility] [address] [place] [address] Dr. Sarah Sánchez MCV (RBC) [Entitic vol] 88.2 fL Normal 80.0-94.0 [facility] Comment on above: Performed By: #### U RTPCR #### [facility] [address] [place] [address] Dr. Sarah Sánchez PLT 171 103/ul Normal 150-450 [facility] Comment on above: Performed By: #### U RTPCR #### [facility] [address] [place] [address] Dr. Sarah Sánchez RBC 3.23 106/ul Critically low 4.70-6.[address] [facility] Comment on above: Performed By: #### U RTPCR #### [facility] [address] [place], [place] [address] Dr. Sarah Sánchez WBC 8.1 103/ul Normal 4.0-11.0 [facility] Comment on above: Performed By: #### U RTPCR #### [facility] [address] [place], [place] [address] Dr. Sarah Sánchez 36on 06-13-2022 36 I will call her and let her know [facility] fax number. Normal [facility] CT LUMBAR SPINE WO CONTRASTo n [...] neural foraminal stenosis. At L2-L3 there is qdgj-mz-vedodvch bilateral neural foraminal stenosis. At L3-L4 mild [...] Grabiel Sutton MD 06/04/22 Final result Normal [facility] CT THORACIC SPINE WO CONTRAS Ton 06-04-2022 [...] disc degenerative changes with bilateral facet arthropathy. Grek-pv-olvevgmw right neural foraminal stenosis. Advanced disc degenerative changes T9-T10 with lnkp-ow-ysmlhqal right neural foraminal stenoses. At T10-T11 there [...] Grabiel Sutton MD 06/04/22 Final result Normal [facility] DEXA BONE DENSITY AXIAL SKEL Giselle 05-30-2022 DEXA BONE DENSITY AXIAL SKELETON EXAMINATION: BONE DENSITOMETRY 05/30/2022 11:17 am TECHNIQUE: A bone density dual x-ray absorptiometry (DXA) scan was performed of the lumbar spine and left hip on a Lumiant system. COMPARISON: None. HISTORY: ORDERING SYSTEM PROVIDED [...] by: Rakesh Atwood DO Signed by: Rakesh Atwood DO 05/30/22 Final result Normal [facility] Normal bone mineral density by WHO criteria. [...] have additional risk factors. Template code: [id number] [facility] EXAMINATION: BONE DENSITOMETRY 05/30/2022 11:17 am TECHNIQUE: A bone density dual x-ray absorptiometry (DXA) scan was performed of the lumbar spine and left hip on a Lumiant system. COMPARISON: None. HISTORY: ORDERING SYSTEM PROVIDED HISTORY: Osteopenia of lumbar spine Gender: M Age: 71 y/o FINDINGS: LUMBAR SPINE: L1-L4 BMD: 2.579 g/cm2 T-score: 11.3 Z-score: 11.9 LEFT TOTAL HIP: BMD: 1.212 g/cm2 T-score: 0.8 Z-score: 1.5 LEFT FEMORAL NECK: BMD: 1.204 g/cm2 T-score: 1.0 Z-score: 2.3 FRAX: Not Indicated. [facility] RIS CONSOLIDATED AtwoodRakeshDO - 05/30/2022 EXAMINATION: BONE DENSITOMETRY 05/30/2022 11:17 am TECHNIQUE: A bone density dual x-ray absorptiometry (DXA) scan was performed of the lumbar spine and left hip on a Lumiant system. COMPARISON: None. HISTORY: ORDERING SYSTEM PROVIDED [...] have additional risk factors. Template code: [id number] [facility] Phone: Radiology Study observation (narrative) [employer] Work Phone: DEXA BONE DENSITY AXIAL SKEL ETONOrdered By: Rakesh Atwood on 05-30-2022 [employer] Phone: MRI LUMBAR SPINE WO CONTRAST on [...] L3-L4: Retrolisthesis and facet hypertrophy resulting in jiws-xn-nubadzlh right and moderate to severe left-sided neural [...] John Vega MD 05/08/22 Final result Normal [facility] Degenerative and operative changes as detailed above. Nerve root impingement at L4-5 and L5-S1. [facility] CONSOL[facility] EXAMINATION: MRI OF THE LUMBAR SPINE [...] L3-L4: Retrolisthesis and facet hypertrophy resulting in lxnf-ch-biefzdpx right and moderate to severe left-sided neural [...] impingement of both exiting L5 nerve roots. [facility] CON[facility] John Vega MD - 05/08/2022 EXAMINATION: [...] L3-L4: Retrolisthesis and facet hypertrophy resulting in xntm-ha-vhhtvfml right and moderate to severe left-sided neural [...] Nerve root impingement at L4-5 and L5-S1. [employer] Phone: Radiology Study observation (narrative) [employer] Phone: MRI LUMBAR SPINE WO CONTRAST Ordered By: John Vega on 05-08-2022 [facility] [employer] Work Phone: PTH INTACTon 05-08-2022 PTH, Intact 81 pg/mL Critically high 15-65 [facility] Comment on above: Performed By: #### U DELFINO, RENAL, MG #### [facility] [address] [place] [address] Dr. Sarah Sánchez FERRITINon 05-07-2022 Ferritin [Mass/Vol] 96.0 ng/mL Normal 26.0-388.0 [facility] Comment on above: Performed By: #### U RTPCR #### [facility] [address] [place] [address] Dr. Sarah Sánchez HEMOGRAM AND PLATELon 2022 Hematocrit (Bld) [Volume fraction] 24.6 % Critically low 42.0-54.0 [facility] Comment on above: Performed By: #### U DELFINO, RENAL, MG #### [facility] [address] [place] [address] Dr. Sarah Sánchez Hemoglobin (Bld) [Mass/Vol] 8.7 g/dL Critically low 14.0-18.0 [facility] Comment on above: Performed By: #### U DELFINO, RENAL, MG #### [facility] [address] [place] [address] Dr. Sarah Sánchez MCH (RBC) [Entitic mass] 31.2 pg Normal 25.9-34.0 [facility] Comment on above: Performed By: #### U DELFINO, RENAL, MG #### [facility] [address] [place] [address] Dr. Sarah Sánchez MCHC (RBC) [Mass/Vol] 35.4 g/dL Critically high 29.9-35.2 [facility] Comment on above: Performed By: #### U DELFINO, RENAL, MG #### [facility] [address] [place] [address] Dr. Sarah Sánchez MCV (RBC) [Entitic vol] 88.2 fL Normal 80.0-94.0 [facility] Comment on above: Performed By: #### U DELFINO, RENAL, MG #### [facility] [address] [address] [address] Sarah Sánchez PLT 204 103/ul Normal 150-450 [facility] Comment on above: Performed By: #### U DELFINO, RENAL, MG #### [facility] [address] [address] [address] Sarah Sánchez RBC 2.79 106/ul Critically low 4.70-6.[address] [facility] Comment on above: Performed By: #### U DELFINO, RENAL, MG #### [facility] [address] [address] [address] Sarah Sánchez WBC 6.9 103/ul Normal 4.0-11.0 [facility] Comment on above: Performed By: #### U DELFINO, RENAL, MG #### [facility] [address] [place] [address] Dr. Sarah Sánchez IRON AND TIBCon 05-07-2022 % SATURATION 28.3 % Normal [facility] Comment on above: Performed By: #### U RTPCR #### [facility] [address] [place] [address] Dr. Sarah Sánchez Iron [Mass/Vol] 72.0 ug/dL Normal 65.0-175.[address] [facility] Comment on above: Performed By: #### U RTPCR #### [facility] [address] [place] [address] Dr. Sarah Sánchez TIBC DIRECT 254.0 ug/dL Normal 250.0-450.0 [facility] Comment on above: Performed By: #### U RTPCR #### [facility] [address] [address] [address] Sarah Sánchez MAGNESIUMon 05-07-2022 Magnesium [Mass/Vol] 1.7 mg/dL Critically low 1.8-2.4 [facility] Comment on above: Performed By: #### H BSANS #### [facility] [address] [place] [address] Dr. Sarah Sánchez RENAL FUNCTION PANELon 05-07 Albumin [Mass/Vol] 3.2 g/dL Critically low 3.4-5.0 [facility] Comment on above: Performed By: #### C VDTBH #### [facility] [address] [address] [address] Sarah Sánchez Calcium [Mass/Vol] 8.5 mg/dL Normal 8.5-10.1 [facility] Comment on above: Performed By: #### C VDTBH #### [facility] [address] [address] [address] Saarh Sánchez Chloride [Moles/Vol] 106 mmol/L Normal 98-107 [facility] Comment on above: Performed By: #### C VDTBH #### [facility] [address] [address] [address] Sarah Sánchez CO2 [Moles/Vol] 28.1 mmol/L Normal 21.0-32.0 [facility] Comment on above: Performed By: #### C VDTBH #### [facility] [address] [place] [address] Dr. Sarah Sánchez Creatinine [Mass/Vol] 2.10 mg/dL Critically high 0.70-1.30 [facility] Comment on above: Performed By: #### C VDTBH #### [facility] [address] [place] [address] Dr. Sarah Sánchez EGFR-AF FILIPINO 38 mL/min/1.73m2 Critically low >=60 [facility] Comment on above: Performed By: #### C VDTBH #### [facility] [address] [place] [address] Dr. Sarah Sánchez EGFR-NON AF FILIPINO 31 mL/min/1.73m2 Critically low >=60 [facility] Comment on above: Performed By: #### C VDTBH #### [facility] [address] [place] [address] Dr. Sarah Sánchez Glucose [Mass/Vol] 141 mg/dL Critically high 74-106 [facility] Comment on above: Performed By: #### C VDTBH #### [facility] [address] [place] [address] Dr. Sarah Sánchez Phosphate [Mass/Vol] 4.1 mg/dL Normal 2.6-4.7 [facility] Comment on above: Performed By: #### C VDTBH #### [facility] [address] [place] [address] Dr. Sarah Sánchez Potassium [Moles/Vol] 5.2 mmol/L Critically high 3.5-5.1 [facility] Comment on above: Performed By: #### C VDTBH #### [facility] [address] [place] [address] Dr. Sarah Sánchez Sodium [Moles/Vol] 141 mmol/L Normal 136-145 [facility] Comment on above: Performed By: #### C VDTBH #### [facility] [address] [place] [address] Dr. Sarah Sánchez Urea nitrogen [Mass/Vol] 34.0 mg/dL Critically high 7.0-18.0 [facility] Comment on above: Performed By: #### C VDTBH #### [facility] [address] [place] [address] Dr. Sarah Sánchez UA RANDOM W/MICROSCOPICon BACTERIA NONE SEEN Normal NONE SEEN [facility] Comment on above: Performed By: #### U AMIC #### [facility] [address] [place] [address] Dr. Sarah Sánchez Bilirubin Ql (U) Negative Normal NEGATIVE [facility] Comment on above: Performed By: #### U AMIC #### [facility] [address] [place] [address] Dr. Sarah Sánchez CAST NONE SEEN Normal NONE SEEN [facility] Comment on above: Performed By: #### U AMIC #### [facility] [address] [place] [address] Dr. Sarah Sánchez Clarity (U) CLEAR Normal CLEAR [facility] Comment on above: Performed By: #### U AMIC #### [facility] [address] [place] [address] Dr. Sarah Sánchez Color (U) LT. YELLOW Normal YELLOW [facility] Comment on above: Performed By: #### U AMIC #### [facility] [address] [address] [address] Sarah Sánchez Crystals LM Nom (Urine sed) NONE SEEN Normal NONE SEEN [facility] Comment on above: Performed By: #### U AMIC #### [facility] [address] [address] [address] Sarah Sánchez Epithelial cells LM Ql (Urine sed) FEW Abnormal NONE SEEN /RARE [facility] Comment on above: Performed By: #### U AMIC #### [facility] [address] [address] [address] Sarah Sánchez Glucose Ql (U) Negative Normal NEGATIVE [facility] Comment on above: Performed By: #### U AMIC #### [facility] [address] [place] [address] Dr. Sarah Sánchez Hemoglobin Ql (U) SMALL Abnormal NEGATIVE [facility] Comment on above: Performed By: #### U AMIC #### [facility] [address] [place] [address] Dr. Sarah Sánchez Ketones Ql (U) Negative Normal NEGATIVE [facility] Comment on above: Performed By: #### U AMIC #### [facility] [address] [address] [address] Sarah Sánchez LEUKOCYTES Negative Normal NEGATIVE [facility] Comment on above: Performed By: #### U AMIC #### [facility] [address] [address] [address] Sarah Sánchez MUCOUS SMALL Abnormal NONE SEEN [facility] Comment on above: Performed By: #### U AMIC #### [facility] [address] [place] [address] Dr. Sarah Sánchez Nitrite Ql (U) Negative Normal NEGATIVE [facility] Comment on above: Performed By: #### U AMIC #### [facility] [address] [place] [address] Dr. Sarah Sánchez pH (U) 5.5 [pH] Normal 5-9 [facility] Comment on above: Performed By: #### U AMIC #### [facility] [address] [place] [address] Dr. Sarah Sánchez RBC 0-2 Normal 0-2 [facility] Comment on above: Performed By: #### U AMIC #### [facility] [address] [place] [address] Dr. Sarah Sánchez SPEC GRAVITY 1.020 Normal 1.005-<=1.02 5 [facility] Comment on above: Performed By: #### U AMIC #### [facility] [address] [address] [address] Sarah Sánchez UA PROTEIN >300 Abnormal NEGATIVE/ TRACE [facility] Comment on above: Performed By: #### U AMIC #### [facility] [address] [address] [address] Sarah Sánchez Urobilinogen Qn (U) 0.2 {Stevie'U}/dL Normal 0.2 - 1. 0 [facility] Comment on above: Performed By: #### U AMIC #### [facility] [address] [place] [address] Dr. Sarah Sánchez WBC NONE SEEN Normal NONE SEEN [facility] Comment on above: Performed By: #### U AMIC #### [facility] [address] [place] [address] Dr. Sarah Sánchez URIC ACID SERUMon 05-07-2022 Urate [Mass/Vol] 6.6 mg/dL Normal 3.5-7.2 [facility] Comment on above: Performed By: #### C VDTBH #### [facility] [address] [place] [address] Dr. Sarah Sánchez URINE T PROTEIN CREAT RATIOo n 05-07-2022 Protein (U) [Mass/Vol] 422.7 mg/dL Critically high <=12.0 [facility] Comment on above: Performed By: #### U DELFINO, RENAL, MG #### [facility] [address] [place] [address] Dr. Sarah Sánchez UR PROT CREAT RAT 4.90 Normal [facility] Comment on above: Performed By: #### U DELFINO, RENAL, MG #### [facility] [address] [place] [address] Dr. Sarah Sánchez URINE CREAT 86.31 mg/dL Normal 20.00-300.00 [facility] Comment on above: Performed By: #### U DELFINO, RENAL, MG #### [facility] [address] [address] [address] Sarah Sánchez VIT B12 AND FOLATEon 023 Cobalamin (Vitamin B12) [Mass/Vol] 824.0 pg/mL Normal 193.0-986.0 [facility] Comment on above: Performed By: #### U RTPCR #### [facility] [address] [address] [address] Sarah Sánchez FOLATE 21.80 ng/mL Normal 8.60-58.90 [facility] Comment on above: Performed By: #### U RTPCR #### [facility] [address] [address] [address] Sarah Sánchez VITAMIN D 25 OHon 05-07-2022 VIT D 25-OH 21.5 ng/mL Normal [facility] Comment on above: Performed By: #### U RTPCR #### [facility] [address] [address] [address] Sarah Sánchez VIT D RANGES SEE BELOW Normal [facility] Comment on above: Result Comment: <20 ng/mL Vit D deficient 20 - <30 ng/mL Vit D insufficient 30 - 100 ng/mL Vit D sufficient >100 ng/mL Potential Toxicity Performed By: #### U RTPCR #### [facility] [address] [address] [address] Sarah Sánchez Glucose Glucometer (dC) [M ass/Vol]Ordered By: Orlando Beaver on 04-16-2022 Glucose [Mass/Vol] 150 mg/dL [facility] Comment on above: Random Glucose Refer ence Range is dependent on time and content of last meal. Glucose of more than 200 mg/dL in a nonstressed, ambulatory subject supports the diagnosis of Diabetes Mellitus. Glucose Poct Glucometerson 0 04-16-2022 Glucose [Mass/Vol] 150 mg/dL Normal [facility] Comment on above: Result Comment: [place] Glucose Reference Range is dependent on time and content of last meal. Glucose of more than 200 mg/dL in a nonstressed, ambulatory subject supports the diagnosis of Diabetes Mellitus. PERFORMED BY: [facility] STEVEN PADILLA [address] PATHOLOGIST ADMINISTRATIVE SERVICES OFFICER DIANA STEPHENS M.D. Performed By: #### G LIGIA #### Point of Care testing , Benji 04-16-2022 L Specimen: [id number] Received: 04/16/22 Status: LILI Hartmanoksana Num: [id number] Spec Type: Surgical Subm Dr: Orlando Beaver MD Tissues: A Colon Biopsy (DESCENDING COLON POLYP) Procedures: TATYANA/Vida Wilson/Rubi L4 Age/ Patient Sex Location Account Attending Physician Omer Santos 71/M [id number] Orlando Beaver MD SPEC NUM: [id number] RECD: 04/16/22 STATUS: LILI HARTMANOksana NUM: [id number] MARGOTH: 04/16/[address] [facility] [address]: Orlando Beaver MD ENTERED: 04/16/22 [facility] DR: SPEC TYPE: Surgical DEPT: S ORDERED: [...] support the above pathologic diagnosis. CPT Codes 29866 Specimen: [id number] Received: 04/16/22 Status: LILI Hartmanoksana Num: [id number] Spec Type: Surgical Subm Dr: Orlando Beaver MD Tissues: A Colon Biopsy (DESCENDING COLON POLYP) Procedures: HE/2, Gross/Micro L4 Patient: Omer Santos [id number] (Continued) Signed (signature on file) Ann Baez MD 04/17/22 132[address] [facility] GLYCOHEMOGLOBIN A1Con 2022 ADA RECOMMENDATION SEE BELOW Normal [facility] Comment on above: Result Comment: ADA RECOMMENDED LIMIT 4.0 - 6.0 ADA THERAPEUTIC TARGET < 7.0 ACTION SUGGESTED > 7.0 Performed By: #### H BYRON #### [facility] [address] [place] [address] Dr. Sarah Sánchez Glucose [Mass/Vol] 177 mg/dL Normal [facility] Comment on above: Performed By: #### H BYRON #### [facility] [address] [address] [address] Sarah Sánchez HbA1c (Bld) [Mass fraction] 7.8 % Critically high 4.5-6.2 [facility] Comment on above: Performed By: #### H BYRON #### [facility] [address] [address] [address] Sarah Sánchez LIPID PROFILEon 04-13-2022 CHOL-HDL RATIO NORM SEE BELOW Normal [facility] Comment on above: Result Comment: 3.3 - 4.4 LOW RISK 4.4 - 7.1 AVERAGE RISK 7.1 - 11.0 MODERATE RISK >11.0 HIGH RISK Performed By: #### U RTPCR #### [facility] [address] [address] [address] Sarah Sánchez Cholesterol [Mass/Vol] 124 mg/dL Normal <=200 [facility] Comment on above: Performed By: #### U RTPCR #### [facility] [address] [address] [address] Sarah Sánchez Cholesterol in HDL [Mass/Vol] 38 mg/dL Critically low 40-60 [facility] Comment on above: Performed By: #### U RTPCR #### [facility] [address] [address] [address] Sarah Sánchez Cholesterol in LDL [Mass/Vol] 51.8 mg/dL Normal [facility] Comment on above: Performed By: #### U RTPCR #### [facility] [address] [address] [address] Sarah Sánchez Cholesterol.total/Chol esterol in HDL [Mass ratio] 3.3 {ratio} Normal [facility] Comment on above: Performed By: #### U RTPCR #### [facility] [address] [address] [address] Sarah Sánchez HDL NORMAL > or = 60 mg/dl - LOW CARDIOVASCULAR RISK <40 mg/dl - HIGH CARDIOVASCULAR RISK Normal [facility] Comment on above: Performed By: #### U RTPCR #### [facility] [address] [address] [address] Sarah Sánchez LDL CALC NORMAL SEE BELOW Normal [facility] Comment on above: Result Comment: <100 mg/dl OPTIMAL 100 - 129 mg/dl NEAR OR ABOVE OPTIMAL 130 - 159 mg/dl BORDERLINE HIGH 160 - 189 mg/dl HIGH >190 mg/dl VERY HIGH Performed By: #### U RTPCR #### [facility] [address] [address] [address] Sarah Sánchez Triglyceride [Mass/Vol] 171 mg/dL Critically high <=150 [facility] Comment on above: Performed By: #### U RTPCR #### [facility] [address] [address] [address] Sarah Sánhcez VLDL CALC 34.2 mg/dL Normal [facility] Comment on above: Performed By: #### U RTPCR #### [facility] [address] [place] [address] Dr. Sarah Sánchez PROF 14(COMP METB)on 023 Albumin [Mass/Vol] 2.9 g/dL Critically low 3.4-5.0 [facility] Comment on above: Performed By: #### U RTPCR #### [facility] [address] [place] [address] Dr. Sarah Sánchez Albumin/Globulin [Mass ratio] 0.9 {ratio} Normal [facility] Comment on above: Performed By: #### U RTPCR #### [facility] [address] [place] [address] Dr. Sarah Sánchez ALP [Catalytic activity/Vol] 94 U/L Normal 46-116 [facility] Comment on above: Performed By: #### U RTPCR #### [facility] [address] [place] [address] Dr. Sarah Sánchez ALT [Catalytic activity/Vol] 21 U/L Normal 16-63 [facility] Comment on above: Performed By: #### U RTPCR #### [facility] [address] [place] [address] Dr. Sarah Sánchez Anion gap [Moles/Vol] 11.4 mmol/L Normal [facility] Comment on above: Performed By: #### U RTPCR #### [facility] [address] [place] [address] Dr. Sarah Sánchez AST [Catalytic activity/Vol] 19 U/L Normal 15-37 [facility] Comment on above: Performed By: #### U RTPCR #### [facility] [address] [place] [address] Dr. Sarah Sánchez Bilirubin [Mass/Vol] 0.5 mg/dL Normal 0.2-1.0 [facility] Comment on above: Performed By: #### U RTPCR #### [facility] [address] [place] [address] Dr. Sarah Sánchez Calcium [Mass/Vol] 8.4 mg/dL Critically low 8.5-10.1 Th [facility] Comment on above: Performed By: #### U RTPCR #### [facility] [address] [place] [address] Dr. Sarah Sánchez Chloride [Moles/Vol] 106 mmol/L Normal 98-107 [facility] Comment on above: Performed By: #### U RTPCR #### [facility] [address] [place] [address] Dr. Sarah Sánchez CO2 [Moles/Vol] 27.3 mmol/L Normal 21.0-32.0 [facility] Comment on above: Performed By: #### U RTPCR #### [facility] [address] [place] [address] Dr. Sarah Sánchez Creatinine [Mass/Vol] 2.40 mg/dL Critically high 0.70-1.30 [facility] Comment on above: Performed By: #### U RTPCR #### [facility] [address] [place] [address] Dr. Sarah Sánchez EGFR-AF FILIPINO 32 mL/min/1.73m2 Critically low >=60 [facility] Comment on above: Performed By: #### U RTPCR #### [facility] [address] [place] [address] Dr. Sarah Sánchez EGFR-NON AF FILIPINO 27 mL/min/1.73m2 Critically low >=60 [facility] Comment on above: Performed By: #### U RTPCR #### [facility] [address] [place] [address] Dr. Sarah Sánchez Globulin (S) [Mass/Vol] 3.1 g/dL Normal [facility] Comment on above: Performed By: #### U RTPCR #### [facility] [address] [place] [address] Dr. Sarah Sánchez Glucose [Mass/Vol] 159 mg/dL Critically high 74-106 T [facility] Comment on above: Performed By: #### U RTPCR #### [facility] [address] [place] [address] Dr. Sarah Sánchez Potassium [Moles/Vol] 4.7 mmol/L Normal 3.5-5.1 [facility] Comment on above: Performed By: #### U RTPCR #### [facility] [address] [address] [address] Sarah Sánchez Protein [Mass/Vol] 6.0 g/dL Critically low 6.4-8.2 Th e [facility] Comment on above: Performed By: #### U RTPCR #### [facility] [address] [address] [address] Sarah Sánchez Sodium [Moles/Vol] 140 mmol/L Normal 136-145 [facility] Comment on above: Performed By: #### U RTPCR #### [facility] [address] [place] [address] Dr. Sarah Sánchez Urea nitrogen [Mass/Vol] 32.0 mg/dL Critically high 7.0-18.0 [facility] Comment on above: Performed By: #### U RTPCR #### [facility] [address] [place] [address] Dr. Sarah Sánchez Urea nitrogen/Creatinine [Mass ratio] 13.3 mg/mg Normal [facility] Comment on above: Performed By: #### U RTPCR #### [facility] [address] [place] [address] Dr. Sarah Sánchez COVID-19 SOFIAOrdered By: Rosalba Beaver on 04-12-2022 SARS-CoV+SARS-CoV-2 (COVID-19) Ag IA.rapid Ql (Resp) Negative Negative [facility] Comment on above: This is a duplicate Kyleigh SARS Antigen (SARA) result to be used for statistical tracking purpose only. No Panel InformationOrdered By: Orlando Beaver on 04-12-2022 SARS Antigen (LFIA) [facility] HEMOGRAM AND PLATELon 2021 Hematocrit (Bld) [Volume fraction] 29.0 % Critically low 42.0-54.0 [facility] Comment on above: Performed By: #### P THINT #### [facility] [address] [place] [address] Dr. Sarah Sánchez Hemoglobin (Bld) [Mass/Vol] 9.8 g/dL Critically low 14.0-18.0 [facility] Comment on above: Performed By: #### P THINT #### [facility] [address] [place] [address] Dr. Sarah Sánchez MCH (RBC) [Entitic mass] 30.1 pg Normal 25.9-34.0 [facility] Comment on above: Performed By: #### P THINT #### [facility] [address] [place] [address] Dr. Sarah Sánchez MCHC (RBC) [Mass/Vol] 33.8 g/dL Normal 29.9-35.2 [facility] Comment on above: Performed By: #### P THINT #### [facility] [address] [place] [address] Dr. Sarah Sánchez MCV (RBC) [Entitic vol] 89.0 fL Normal 80.0-94.0 [facility] Comment on above: Performed By: #### P THINT #### [facility] [address] [place] [address] Dr. Sarah Sánchez PLT 184 103/ul Normal 150-450 [facility] Comment on above: Performed By: #### P THINT #### [facility] [address] [place] [address] Dr. Sarah Sánchez RBC 3.26 106/ul Critically low 4.70-6.[address] [facility] Comment on above: Performed By: #### P THINT #### [facility] [address] [place] [address] Dr. Sarah Sánchez WBC 7.7 103/ul Normal 4.0-11.0 [facility] Comment on above: Performed By: #### P THINT #### [facility] [address] [place] [address] Dr. Sarah Sánchez [facility]08 SARS-CoV-2 (COVID-19) RNA VINICIO+probe Ql (Unsp spec) Not detected Normal NOT DETECTED [facility] Comment on above: Result Comment: This test is not yet approved or cleared by the [place] FDA. When there are no FDA-approved or cleared tests available, and other criteria are met, FDA can make tests available under an emergency access mechanism called an Emergency Use Authorization (EUA). The EUA for this test is supported by the [place] of Health and Human Service's (HHS's) declaration [...] SARS-CoV-2. Performed By: #### C VDTB #### [facility] [address] [place] [address] Dr. Sarah Sánchez IMMUNOFIX ELEC, PROTEIN ELEC URINEon 12-13-2021 Albumin, U 71.9 % Normal [facility] Comment on above: Performed By: #### H BSANS #### [facility] [address] [place] [address] Dr. Sarah Sánchez Gwvoj-2-Agqsaqej, U 3.3 % Normal [facility] Comment on above: Performed By: #### H BSANS #### [facility] [address] [place] [address] Dr. Sarah Sánchez Scnkl-0-Oxehelsw, U 5.8 % Normal [facility] Comment on above: Performed By: #### H BSANS #### [facility] [address] [place] [address] Dr. Sarah Sánchez Beta Globulin, U 10.2 % Normal [facility] Comment on above: Performed By: #### H BSANS #### [facility] [address] [place] [address] Dr. Sarah Sánchez Gamma Globulin, U 8.7 % Normal [facility] Comment on above: Performed By: #### H BSANS #### [facility] [address] [address] [address] Sarah Sánchez Immunofixation Result, Urine Comment Normal [facility] Comment on above: Result Comment: No m onoclonality detected. Performed By: #### H BSANS #### [facility] [address] [address] [address] Sarah Sánchez M-Jovon, % Not Observed Normal Not Observed [facility] Comment on above: Performed By: #### H BSANS #### [facility] [address] [address] [address] Sarah Sánchez Note: Comment Normal [facility] Comment on above: Result Comment: Prot ein electrophoresis scan will follow via computer, mail, or b2b sales professional delivery. Performed By: #### H BSANS #### [facility] [address] [place] [address] Dr. Sarah Sánchez PDF . Normal [facility] Comment on above: Performed By: #### H BSANS #### [facility] [address] [address] [address] Sarah Sánchez Protein (U) [Mass/Vol] 315.2 mg/dL Normal Not Estab. T [facility] Comment on above: Result Comment: Resu lts confirmed on dilution. Performed By: #### H BSANS #### [facility] [address] [address] [address] Sarah Sánchez IMMUNOFIXATION(GRISELDA),PROTEIN ELEC(PE),FREon 12-13-2021 Albumin [Mass/Vol] 3.3 g/dL Normal 2.9-4.4 [facility] Comment on above: Performed By: #### U DELFINO, RENAL, MG #### [facility] [address] [address] [address] Sarah Sánchez Albumin/Globulin [Mass ratio] 1.3 {ratio} Normal 0.7-1.7 [facility] Comment on above: Performed By: #### U DELFINO, RENAL, MG #### [facility] [address] [address] [address] Sarah Sánchez Leron-8-Orlqrvqs 0.2 g/dL Normal 0.0-0.4 [facility] Comment on above: Performed By: #### U DELFINO, RENAL, MG #### [facility] [address] [address] [address] Sarah Sánchez Cnnjh-5-Zzqkxlri 0.8 g/dL Normal 0.4-1.0 [facility] Comment on above: Performed By: #### U DELFINO, RENAL, MG #### [facility] [address] [address] [address] Sarah Sánchez Beta Globulin 0.9 g/dL Normal 0.7-1.3 [facility] Comment on above: Performed By: #### U DELFINO, RENAL, MG #### [facility] [address] [place] [address] Dr. Sarah Sánchez Free Tarnov Lt Chains,S 41.7 mg/L Critically high 3.3-19.4 [facility] Comment on above: Performed By: #### U DELFINO, RENAL, MG #### [facility] [address] [place] [address] Dr. Sarah Sánchez Free Lambda Lt Chains,S 29.4 mg/L Critically high 5.7-26.3 [facility] Comment on above: Performed By: #### U DELFINO, RENAL, MG #### [facility] [address] [place] [address] Dr. Sarah Sánchez Gamma Globulin 0.7 g/dL Normal 0.4-1.8 [facility] Comment on above: Performed By: #### U DELFINO, RENAL, MG #### [facility] [address] [place] [address] Dr. Sarah Sánchez Globulin (S) [Mass/Vol] 2.7 g/dL Normal 2.2-3.9 [facility] Comment on above: Performed By: #### U DELFINO, RENAL, MG #### [facility] [address] [place] [address] Dr. Sarah Sánchez Immunofixation Result, Serum Comment Normal [facility] Comment on above: Result Comment: No m onoclonality detected. Performed By: #### U DELFINO, RENAL, MG #### [facility] [address] [address] [address] Sarah Sánchez Immunoglobulin A, Qn, Serum 172 mg/dL Normal 61-437 [facility] Comment on above: Performed By: #### U DELFINO, RENAL, MG #### [facility] [address] [address] [address] Sarah Sánhcez Immunoglobulin G, Qn, Serum 769 mg/dL Normal 603-1613 [facility] Comment on above: Performed By: #### U DELFINO, RENAL, MG #### [facility] [address] [address] [address] Sarah Sánchez Immunoglobulin M, Qn, Serum 71 mg/dL Normal 15-143 [facility] Comment on above: Performed By: #### U DELFINO, RENAL, MG #### [facility] [address] [address] [address] Sarah Sánchez Tarnov/Lambda Ratio, S 1.42 Normal 0.26-1.65 [facility] Comment on above: Performed By: #### U DELFINO, RENAL, MG #### [facility] [address] [address] [address] Sarah Sánchez M-Jovon Not Observed Normal Not Observed [facility] Comment on above: Performed By: #### U DELFINO, RENAL, MG #### [facility] [address] [address] [address] Sarah Sánchez PDF . Normal [facility] Comment on above: Performed By: #### U DELFINO, RENAL, MG #### [facility] [address] [address] [address] Sarah Sánchez Please note: Comment Normal [facility] Comment on above: Result Comment: Prot ein electrophoresis scan will follow via computer, mail, or b2b sales professional delivery. Performed By: #### U DELFINO, RENAL, MG #### [facility] [address] [address] [address] Sarah Sánchez Protein [Mass/Vol] 6.0 g/dL Normal 6.0-8.5 [facility] Comment on above: Performed By: #### U DELFINO, RENAL, MG #### [facility] [address] [address] [address] Sarah Sánchez PTH INTACTon 12-12-2021 PTH, Intact 67 pg/mL Critically high 15-65 [facility] Comment on above: Performed By: #### P THINT #### [facility] [address] [address] [address] Sarah Sánchez HEP B SURFACE ANTIGEN SCREEN on 12-10-2021 HBsAg Screen Negative Normal Negative [facility] Comment on above: Performed By: #### H BSANS #### [facility] [address] [address] [address] Sarah Sánchez VIT D 25-OH LABCORPon 2021 Vitamin D, 25-Hydroxy 54.1 ng/mL Normal 30.0-100.0 [facility] Comment on above: Result Comment: Rebecca min D deficiency has been defined by the [place] of [employer] and an Endocrine Society practice guideline as a level of serum 25-OH vitamin D less than 20 ng/mL (1,2). The Endocrine Society went on to further define vitamin D insufficiency as a level between 21 and 29 ng/mL (2). 1. IOM ([place] of Medicine). 2010. Dietary reference intakes for calcium and D. [place]: The National Academies Press. 2. Carlos MF, Mary [place], Elian BERRIOS, et al. Evaluation, treatment, and prevention of vitamin D deficiency: an Endocrine Society clinical practice guideline. JCEM. 2010; 96(7):1911-30. Performed By: #### C VDTBH #### [facility] [address] [address] [address] Sarah Sánchez CBC AUTO DIFFon 12-09-2021 BASO # 0.0 103/ul Normal 0.0-0.1 [facility] Comment on above: Performed By: #### C VDTBH #### [facility] [address] [address] [address] Sarah Sánchez Basophils/100 WBC (Bld) 0.6 % Normal 0.2-2.0 [facility] Comment on above: Performed By: #### C VDTBH #### [facility] [address] [place] [address] Dr. Sarah Sánchez EO # 0.4 103/ul Normal 0.0-0.7 [facility] Comment on above: Performed By: #### C VDTB #### [facility] [address] [place] [address] Dr. Sarah Sánchez Eosinophils/100 WBC (Bld) 5.5 % Normal 0.9-7.0 [facility] Comment on above: Performed By: #### C VDTBH #### [facility] [address] [place] [address] Dr. Sarah Sánchez Erythrocyte distribution width (RBC) [Ratio] 13.2 % Normal 11.0-15.0 [facility] Comment on above: Performed By: #### C VDTBH #### [facility] [address] [place] [address] Dr. Sarah Sánchez Hematocrit (Bld) [Volume fraction] 27.5 % Critically low 42.0-54.0 [facility] Comment on above: Performed By: #### C VDTBH #### [facility] [address] [place] [address] Dr. Sarah Sánchez Hemoglobin (Bld) [Mass/Vol] 9.4 g/dL Critically low 14.0-18.0 [facility] Comment on above: Performed By: #### C VDTBH #### [facility] [address] [place] [address] Dr. Sarah Sánchez IG # 0.04 10e3/ul Critically high 0.00-0.03 [facility] Comment on above: Performed By: #### C VDTBH #### [facility] [address] [place] [address] Dr. Sarah Sánchez IG % 0.6 % Critically high 0.0-0.5 [facility] Comment on above: Performed By: #### C VDTBH #### [facility] [address] [place] [address] Dr. Sarah Sánchez LYMPH # 1.2 103/ul Normal 1.2-3.8 [facility] Comment on above: Performed By: #### C VDTBH #### [facility] [address] [place] [address] Dr. Sarah Sánchez Lymphocytes/100 WBC (Bld) 18.0 % Critically low 20.5-60.0 [facility] Comment on above: Performed By: #### C VDTBH #### [facility] [address] [place] [address] Dr. Sarah Sánchez MANUAL DIFF REQ NO Normal [facility] Comment on above: Performed By: #### C VDTBH #### [facility] [address] [place] [address] Dr. Sarah Sánchez MCH (RBC) [Entitic mass] 31.0 pg Normal 25.9-34.0 [facility] Comment on above: Performed By: #### C VDTBH #### [facility] [address] [place] [address] Dr. Sarah Sánchez MCHC (RBC) [Mass/Vol] 34.2 g/dL Normal 29.9-35.2 [facility] Comment on above: Performed By: #### C VDTBH #### [facility] [address] [place] [address] Dr. Sarah Sánchez MCV (RBC) [Entitic vol] 90.8 fL Normal 80.0-94.0 [facility] Comment on above: Performed By: #### C VDTBH #### [facility] [address] [place] [address] Dr. Sarah Sánchez MONO # 0.4 103/ul Normal 0.3-0.8 [facility] Comment on above: Performed By: #### C VDTBH #### [facility] [address] [place] [address] Dr. Sarah Sánchez Monocytes/100 WBC (Bld) 5.9 % Normal 1.7-12.0 [facility] Comment on above: Performed By: #### C VDTBH #### [facility] [address] [place] [address] Dr. Sarah Sánchez NEUT # 4.7 103/ul Normal 1.4-6.5 [facility] Comment on above: Performed By: #### C VDTBH #### [facility] [address] [address] [address] Sarah Sánchez Neutrophils/100 WBC (Bld) 69.4 % Normal 43.0-75.0 [facility] Comment on above: Performed By: #### C VDTBH #### [facility] [address] [address] [address] Sarah Sánchez Platelet mean volume (Bld) [Entitic vol] 8.9 fL Critically low 9.5-13.5 [facility] Comment on above: Performed By: #### C VDTBH #### [facility] [address] [address] [address] Sarah Sánchez PLT 191 103/ul Normal 150-450 [facility] Comment on above: Performed By: #### C VDTBH #### [facility] [address] [address] [address] Sarah Sánchez RBC 3.03 106/ul Critically low 4.70-6.10 [facility] Comment on above: Performed By: #### C VDTBH #### [facility] [address] [address] [address] Sarah Sánchez WBC 6.8 103/ul Normal 4.0-11.0 [facility] Comment on above: Performed By: #### C VDTBH #### [facility] [address] [address] [address] Sarah Sánchez FERRITINon 12-09-2021 Ferritin [Mass/Vol] 88.0 ng/mL Normal 26.0-388.0 [facility] Comment on above: Performed By: #### U DELFINO, RENAL, MG #### [facility] [address] [address] [address] Sarah Sánchez IRON AND TIBCon 12-09-2021 % SATURATION 25.0 % Normal [facility] Comment on above: Performed By: #### U DELFINO, RENAL, MG #### [facility] [address] [address] [address] Sarah Sánchez Iron [Mass/Vol] 63.0 ug/dL Critically low 65.0-175.0 [facility] Comment on above: Performed By: #### U DELFINO, RENAL, MG #### [facility] [address] [address] [address] Sarah Sánchez TIBC DIRECT 252.0 ug/dL Normal 250.0-450.0 [facility] Comment on above: Performed By: #### U DELFINO, RENAL, MG #### [facility] [address] [address] [address] Sarah Sánchez MAGNESIUMon 12-09-2021 Magnesium [Mass/Vol] 1.5 mg/dL Critically low 1.8-2.4 [facility] Comment on above: Performed By: #### P THINT #### [facility] [address] [place] [address] Dr. Sarah Sánchez RENAL FUNCTION PANELon 12-09 Albumin [Mass/Vol] 3.3 g/dL Critically low 3.4-5.0 [facility] Comment on above: Performed By: #### U DELFINO, MG, RENAL #### [facility] [address] [address] [address] Sarah Sánchez Calcium [Mass/Vol] 8.3 mg/dL Critically low 8.5-10.1 [facility] Comment on above: Performed By: #### U DELFINO, MG, RENAL #### [facility] [address] [address] [address] Sarah Sánchez Chloride [Moles/Vol] 108 mmol/L Critically high 98-107 [facility] Comment on above: Performed By: #### U DELFINO, MG, RENAL #### [facility] [address] [address] [address] Sarah Sánchez CO2 [Moles/Vol] 24.0 mmol/L Normal 21.0-32.0 [facility] Comment on above: Performed By: #### U DELFINO, MG, RENAL #### [facility] [address] [place] [address] Dr. Sarah Sánchez Creatinine [Mass/Vol] 1.92 mg/dL Critically high 0.70-1.30 [facility] Comment on above: Performed By: #### U DELFINO, MG, RENAL #### [facility] [address] [address] [address] Sarah Sánchez EGFR-AF FILIPINO 42 mL/min/1.73m2 Critically low >=60 [facility] Comment on above: Performed By: #### U DELFINO, MG, RENAL #### [facility] [address] [place] [address] Dr. Sarah Sánchez EGFR-NON AF FILIPINO 35 mL/min/1.73m2 Critically low >=60 [facility] Comment on above: Performed By: #### U DELFINO, MG, RENAL #### [facility] [address] [place] [address] Dr. Sarah Sánchez Glucose [Mass/Vol] 130 mg/dL Critically high 74-106 [facility] Comment on above: Performed By: #### U DELFINO, MG, RENAL #### [facility] [address] [place] [address] Dr. Sarah Sánchez Phosphate [Mass/Vol] 4.0 mg/dL Normal 2.6-4.7 [facility] Comment on above: Performed By: #### U DELFINO, MG, RENAL #### [facility] [address] [place] [address] Dr. Sarah Sánchez Potassium [Moles/Vol] 5.0 mmol/L Normal 3.5-5.1 [facility] Comment on above: Performed By: #### U DELFINO, MG, RENAL #### [facility] [address] [place] [address] Dr. Sarah Sánchez Sodium [Moles/Vol] 140 mmol/L Normal 136-145 [facility] Comment on above: Performed By: #### U DELFINO, MG, RENAL #### [facility] [address] [place] [address] Dr. Sarah Sánchez Urea nitrogen [Mass/Vol] 38.0 mg/dL Critically high 7.0-18.0 [facility] Comment on above: Performed By: #### U DELFINO, MG, RENAL #### [facility] [address] [place] [address] Dr. Sarah Sánchez UA RANDOM W/MICROSCOPICon BACTERIA NONE SEEN Normal NONE SEEN [facility] Comment on above: Performed By: #### U DELFINO, RENAL, MG #### [facility] [address] [address] [address] Sarah Sánchez Bilirubin Ql (U) Negative Normal NEGATIVE [facility] Comment on above: Performed By: #### U DELFINO, RENAL, MG #### [facility] [address] [address] [address] Sarah Sánchez CAST SEEN Abnormal NONE SEEN [facility] Comment on above: Performed By: #### U DELFINO, RENAL, MG #### [facility] [address] [address] [address] Sarah Sánchez Clarity (U) CLEAR Normal CLEAR [facility] Comment on above: Performed By: #### U DELFINO, RENAL, MG #### [facility] [address] [place] [address] Dr. Sarah Sánchez Color (U) LT. YELLOW Normal YELLOW [facility] Comment on above: Performed By: #### U DELFINO, RENAL, MG #### [facility] [address] [address] [address] Sarah Sánchez Crystals LM Nom (Urine sed) NONE SEEN Normal NONE SEEN [facility] Comment on above: Performed By: #### U DELFINO, RENAL, MG #### [facility] [address] [address] [address] Sarah Sánchez Epithelial cells LM Ql (Urine sed) RARE Normal NONE SEEN /RARE [facility] Comment on above: Performed By: #### U DELFINO, RENAL, MG #### [facility] [address] [address] [address] Sarah Sánchez Glucose Ql (U) 100 mg/dl Abnormal NEGATIVE [facility] Comment on above: Performed By: #### U DELFINO, RENAL, MG #### [facility] [address] [address] [address] Sarah Sánchez Hemoglobin Ql (U) SMALL Abnormal NEGATIVE [facility] Comment on above: Performed By: #### U DELFINO, RENAL, MG #### [facility] [address] [address] [address] Sarah Sánchez HYALINE CAST RARE Normal [facility] Comment on above: Performed By: #### U DELFINO, RENAL, MG #### [facility] [address] [address] [address] Sarah Sánchez Ketones Ql (U) Negative Normal NEGATIVE [facility] Comment on above: Performed By: #### U DELFINO, RENAL, MG #### [facility] [address] [address] [address] Sarah Sánchez LEUKOCYTES Negative Normal NEGATIVE [facility] Comment on above: Performed By: #### U DELFINO, RENAL, MG #### [facility] [address] [address] [address] Sarah Sánchez MUCOUS TRACE Abnormal NONE SEEN [facility] Comment on above: Performed By: #### U DELFINO, RENAL, MG #### [facility] [address] [address] [address] Sarah Sánchez Nitrite Ql (U) Negative Normal NEGATIVE [facility] Comment on above: Performed By: #### U DELFINO, RENAL, MG #### [facility] [address] [address] [address] Sarah Sánchez pH (U) 5.5 [pH] Normal 5-9 [facility] Comment on above: Performed By: #### U DELFINO, RENAL, MG #### [facility] [address] [address] [address] Sarah Sánchez RBC 0-2 Normal 0-2 [facility] Comment on above: Performed By: #### U DELFINO, RENAL, MG #### [facility] [address] [address] [address] Sarah Sánchez SPEC GRAVITY 1.020 Normal 1.005-<=1.02 5 [facility] Comment on above: Performed By: #### U DELFINO, RENAL, MG #### [facility] [address] [address] [address] Sarah Sánchez UA PROTEIN 300 mg/dl Abnormal NEGATIVE/ TRACE [facility] Comment on above: Performed By: #### U DELFINO, RENAL, MG #### [facility] [address] [place] [address] Dr. Sarah Sánchez Urobilinogen Qn (U) 0.2 {Stevie'U}/dL Normal 0.2 - 1. 0 [facility] Comment on above: Performed By: #### U DELFINO, RENAL, MG #### [facility] [address] [place] [address] Dr. Sarah Sánchez WBC NONE SEEN Normal NONE SEEN [facility] Comment on above: Performed By: #### U DELFINO, RENAL, MG #### [facility] [address] [place] [address] Dr. Sarah Sánchez URIC ACID SERUMon 12-09-2021 Urate [Mass/Vol] 6.6 mg/dL Normal 3.5-7.2 [facility] Comment on above: Performed By: #### U DELFINO, MG, RENAL #### [facility] [address] [place] [address] Dr. Sarah Sánchez URINE T PROTEIN CREAT RATIOo n 12-09-2021 Protein (U) [Mass/Vol] 313.7 mg/dL Critically high <=12.0 [facility] Comment on above: Performed By: #### H BSANS #### [facility] [address] [place] [address] Dr. Sarah Sánchez UR PROT CREAT RAT 5.47 Normal [facility] Comment on above: Performed By: #### H BSANS #### [facility] [address] [place] [address] Dr. Sarah Sánchez URINE CREAT 57.37 mg/dL Normal 20.00-300.00 [facility] Comment on above: Performed By: #### H BSANS #### [facility] [address] [place] [address] Dr. Sarah Sánchez VIT B12 AND FOLATEon 022 Cobalamin (Vitamin B12) [Mass/Vol] 1831.0 pg/mL Critically high 193.0-986.0 [facility] Comment on above: Performed By: #### U DELFINO, RENAL, MG #### [facility] [address] [address] [address] Sarah Sánchez FOLATE 20.90 ng/mL Normal 8.60-58.90 [facility] Comment on above: Performed By: #### U DELFINO, RENAL, MG #### [facility] [address] [place] [address] Dr. Sarah Sánchez GLYCOHEMOGLOBIN A1Con 2021 ADA RECOMMENDATION SEE BELOW Normal [facility] Comment on above: Result Comment: ADA RECOMMENDED LIMIT 4.0 - 6.0 ADA THERAPEUTIC TARGET < 7.0 ACTION SUGGESTED > 7.0 Performed By: #### U DELFINO, RENAL, MG #### [facility] [address] [place] [address] Dr. Sarah Sánchez Glucose [Mass/Vol] 137 mg/dL Normal [facility] Comment on above: Performed By: #### U DELFINO, RENAL, MG #### [facility] [address] [place] [address] Dr. Sarah Sánchez HbA1c (Bld) [Mass fraction] 6.4 % Critically high 4.5-6.2 [facility] Comment on above: Performed By: #### U DELFINO, RENAL, MG #### [facility] [address] [place] [address] Dr. Sarah Sánchez PTH INTACTon 09-16-2021 PTH, Intact 57 pg/mL Normal 15-65 [facility] Comment on above: Performed By: #### U RTPCR #### [facility] [address] [place] [address] Dr. Sarah Sánchez HEMOGRAM AND PLATELon 2021 Hematocrit (Bld) [Volume fraction] 27.7 % Critically low 42.0-54.0 [facility] Comment on above: Performed By: #### H BSANS #### [facility] [address] [place] [address] Dr. Sarah Sánchez Hemoglobin (Bld) [Mass/Vol] 9.5 g/dL Critically low 14.0-18.0 [facility] Comment on above: Performed By: #### H BSANS #### [facility] [address] [place] [address] Dr. Sarah Sánchez MCH (RBC) [Entitic mass] 31.1 pg Normal 25.9-34.0 [facility] Comment on above: Performed By: #### H BSANS #### [facility] [address] [address] [address] Sarah Sánchez MCHC (RBC) [Mass/Vol] 34.3 g/dL Normal 29.9-35.2 [facility] Comment on above: Performed By: #### H BSANS #### [facility] [address] [address] [address] Sarah Sánchez MCV (RBC) [Entitic vol] 90.8 fL Normal 80.0-94.0 [facility] Comment on above: Performed By: #### H BSANS #### [facility] [address] [place] [address] Dr. Sarah Sánchez PLT 217 103/ul Normal 150-450 [facility] Comment on above: Performed By: #### H BSANS #### [facility] [address] [place] [address] Dr. Sarah Sánchez RBC 3.05 106/ul Critically low 4.70-6.10 [facility] Comment on above: Performed By: #### H BSANS #### [facility] [address] [place] [address] Dr. Sarah Sánchez WBC 6.9 103/ul Normal 4.0-11.0 [facility] Comment on above: Performed By: #### H BSANS #### [facility] [address] [place] [address] Dr. Sarah Sánchez MAGNESIUMon 09-15-2021 Magnesium [Mass/Vol] 1.6 mg/dL Critically low 1.8-2.4 [facility] Comment on above: Performed By: #### U DELFINO, RENAL, MG #### [facility] [address] [place] [address] Dr. Sarah Sánchez RENAL FUNCTION PANELon 09-15 Albumin [Mass/Vol] 3.3 g/dL Critically low 3.4-5.0 [facility] Comment on above: Performed By: #### U DELFINO, RENAL, MG #### [facility] [address] [address] [address] Sarah Sánchez Calcium [Mass/Vol] 8.3 mg/dL Critically low 8.5-10.1 [facility] Comment on above: Performed By: #### U DELFINO, RENAL, MG #### [facility] [address] [place] [address] Dr. Sarah Sánchez Chloride [Moles/Vol] 107 mmol/L Normal 98-107 [facility] Comment on above: Performed By: #### U DELFINO, RENAL, MG #### [facility] [address] [place] [address] Dr. Sarah Sánchez CO2 [Moles/Vol] 23.8 mmol/L Normal 21.0-32.0 [facility] Comment on above: Performed By: #### U DELFINO, RENAL, MG #### [facility] [address] [place] [address] Dr. Sarah Sánchez Creatinine [Mass/Vol] 1.87 mg/dL Critically high 0.70-1.30 [facility] Comment on above: Performed By: #### U DELFINO, RENAL, MG #### [facility] [address] [place] [address] Dr. Sarah Sánchez EGFR-AF FILIPINO 43 mL/min/1.73m2 Critically low >=60 [facility] Comment on above: Performed By: #### U DELFINO, RENAL, MG #### [facility] [address] [place] [address] Dr. Sarah Sánchez EGFR-NON AF FILIPINO 36 mL/min/1.73m2 Critically low >=60 [facility] Comment on above: Performed By: #### U DELFINO, RENAL, MG #### [facility] [address] [place] [address] Dr. Sarah Sánchez Glucose [Mass/Vol] 120 mg/dL Critically high 74-106 [facility] Comment on above: Performed By: #### U DELFINO, RENAL, MG #### [facility] [address] [place] [address] Dr. Sarah Sánchez Phosphate [Mass/Vol] 3.8 mg/dL Normal 2.6-4.7 [facility] Comment on above: Performed By: #### U DELFINO, RENAL, MG #### [facility] [address] [place] [address] Dr. Sarah Sánchez Potassium [Moles/Vol] 4.5 mmol/L Normal 3.5-5.1 [facility] Comment on above: Performed By: #### U DELFINO, RENAL, MG #### [facility] [address] [place] [address] Dr. Sarah Sánchez Sodium [Moles/Vol] 140 mmol/L Normal 136-[address] [facility] Comment on above: Performed By: #### U DELFINO, RENAL, MG #### [facility] [address] [place] [address] Dr. Sarah Sánchez Urea nitrogen [Mass/Vol] 34.0 mg/dL Critically high 7.0-18.0 [facility] Comment on above: Performed By: #### U DELFINO, RENAL, MG #### [facility] [address] [place] [address] Dr. Sarah Sánchez UA RANDOM W/MICROSCOPICon BACTERIA NONE SEEN Normal NONE SEEN [facility] Comment on above: Performed By: #### C VDTBH #### [facility] [address] [place] [address] Dr. Sarah Sánchez Bilirubin Ql (U) Negative Normal NEGATIVE [facility] Comment on above: Performed By: #### C VDTBH #### [facility] [address] [place] [address] Dr. Sarah Sánchez CAST SEEN Abnormal NONE SEEN [facility] Comment on above: Performed By: #### C VDTBH #### [facility] [address] [place] [address] Dr. Sarah Sánchez Clarity (U) CLEAR Normal CLEAR [facility] Comment on above: Performed By: #### C VDTBH #### [facility] [address] [place] [address] Dr. Sarah Sánchez COARSE GRANULAR CAST RARE Normal [facility] Comment on above: Performed By: #### C VDTBH #### [facility] [address] [address] [address] Sarah Sánchez Color (U) LT. YELLOW Normal YELLOW [facility] Comment on above: Performed By: #### C VDTBH #### [facility] [address] [place] [address] Dr. Sarah Sánchez Crystals LM Nom (Urine sed) NONE SEEN Normal NONE SEEN [facility] Comment on above: Performed By: #### C VDTBH #### [facility] [address] [place] [address] Dr. Sarah Sánchez Epithelial cells LM Ql (Urine sed) FEW Abnormal NONE SEEN /RARE [facility] Comment on above: Performed By: #### C VDTBH #### [facility] [address] [place] [address] Dr. Sarah Sánchez Glucose Ql (U) Negative Normal NEGATIVE [facility] Comment on above: Performed By: #### C VDTBH #### [facility] [address] [place] [address] Dr. Sarah Sánchez Hemoglobin Ql (U) MODERATE Abnormal NEGATIVE [facility] Comment on above: Performed By: #### C VDTBH #### [facility] [address] [place] [address] Dr. Sarah Sánchez Ketones Ql (U) Negative Normal NEGATIVE [facility] Comment on above: Performed By: #### C VDTBH #### [facility] [address] [place] [address] Dr. Sarah Sánchez LEUKOCYTES Negative Normal NEGATIVE [facility] Comment on above: Performed By: #### C VDTBH #### [facility] [address] [place] [address] Dr. Sarah Sánchez MUCOUS NONE SEEN Normal NONE SEEN [facility] Comment on above: Performed By: #### C VDTBH #### [facility] [address] [place] [address] Dr. Sarah Sánchez Nitrite Ql (U) Negative Normal NEGATIVE [facility] Comment on above: Performed By: #### C VDTBH #### [facility] [address] [place] [address] Dr. Sarah Sánchez pH (U) 5.5 [pH] Normal 5-9 [facility] Comment on above: Performed By: #### C VDTBH #### [facility] [address] [place] [address] Dr. Sarah Sánchez RBC 0-2 Normal 0-2 [facility] Comment on above: Performed By: #### C VDTBH #### [facility] [address] [place] [address] Dr. Sarah Sánchez SPEC GRAVITY 1.025 Normal 1.005-<=1.02 5 [facility] Comment on above: Performed By: #### C VDTBH #### [facility] [address] [place] [address] Dr. Sarah Sánchez UA PROTEIN >300 Abnormal NEGATIVE/ TRACE [facility] Comment on above: Performed By: #### C VDTBH #### [facility] [address] [place] [address] Dr. Sarah Sánchez Urobilinogen Qn (U) 0.2 {Stevie'U}/dL Normal 0.2 - 1. 0 [facility] Comment on above: Performed By: #### C VDTBH #### [facility] [address] [place] [address] Dr. Sarah Sánchez WBC NONE SEEN Normal NONE SEEN [facility] Comment on above: Performed By: #### C VDTBH #### [facility] [address] [place] [address] Dr. Sarah Sánchez URIC ACID SERUMon 09-15-2021 Urate [Mass/Vol] 6.9 mg/dL Normal 3.5-7.2 [facility] Comment on above: Performed By: #### U DELFINO, RENAL, MG #### [facility] [address] [place] [address] Dr. Sarah Sánchez URINE T PROTEIN CREAT RATIOo n 09-15-2021 Protein (U) [Mass/Vol] 440.3 mg/dL Critically high <=12.0 [facility] Comment on above: Performed By: #### U RTPCR #### [facility] [address], [place] [address] Dr. Sarah Sánchez UR PROT CREAT RAT 6.63 Normal [facility] Comment on above: Performed By: #### U RTPCR #### [facility] [address], [place] [address] Dr. Sarah Sánchez URINE CREAT 66.40 mg/dL Normal 20.00-300.00 [facility] Comment on above: Performed By: #### U RTPCR #### [facility] [id number] Sarah Sánchez VITAMIN D 25 OHon 09-15-2021 VIT D 25-OH 18.8 ng/mL Normal [facility] Comment on above: Performed By: #### U DELFINO, RENAL, MG #### [facility] [address], [place] [address] Dr. Sarah Sánchez VIT D RANGES SEE BELOW Normal [facility] Comment on above: Result Comment: <20 ng/mL Vit D deficient 20 - <30 ng/mL Vit D insufficient 30 - 100 ng/mL Vit D sufficient >100 ng/mL Potential Toxicity Performed By: #### U DELFINO, RENAL, MG #### [facility] [id number] Sarah Sánchez US KIDNEYSon 09-01-2021 US [...] by: MEMO STRICKLAND Date: 2021-09-01 10:18 Normal [facility] Urinalysis With MicroscopicO rdered By: Ralph Mccurdy on 04-23-2019 - [employer] Work Phone: Amorphous, UA NOT REPORTED None [employer] Work Phone: Bacteria, UA NOT REPORTED None [employer] Work Phone: Bilirubin Urine Negative NEGATIVE [facility] Work Phone: Casts UA NOT REPORTED /LPF [employer] Work Phone: Color, UA YELLOW YELLOW [employer] Work Phone: Crystals UA URIC ACID Abnormal None /HPF [employer] Work Phone: Crystals UA 2 TO 5 Abnormal None /HPF [employer] Work Phone: Epithelial Cells UA None [employer] Work Phone: Glucose, Ur Negative NEGATIVE [employer] Work Phone: Interpretation and review of laboratory results Abnormal [employer] Work Phone: Ketones Ql (U) Negative NEGATIVE [employer] Work Phone: Leukocyte esterase Test strip Ql (U) Negative NEGATIVE [employer] Work Phone: Mucus, UA NOT REPORTED None [facility] Work Phone: Nitrite, Urine Negative NEGATIVE [employer] Work Phone: Other Observations UA NOT REPORTED NOT REQ. [facility] Work Phone: pH, UA 6.0 [facility] Work Phone: Protein, UA 4+ Abnormal NEGATIVE [employer] Phone: RBC, UA 0 TO 2 [employer] Work Phone: Renal Epithelial, Urine NOT REPORTED 0 /HPF [employer] Work Phone: Specific [place], UA 1.020 [employer] Work Phone: Trichomonas, UA NOT REPORTED None [employer] Work Phone: Turbidity UA CLEAR CLEAR [employer] Work Phone: Urinalysis Comments NOT REPORTED [facility] [employer] Work Phone: Urine Hgb 1+ Abnormal NEGATIVE [employer] Phone: Urobilinogen, Urine Normal Normal [employer] Phone: WBC, UA None [employer] Work Phone: Yeast, UA NOT REPORTED None [employer] Phone: Cardiovascular Lab Reporton 09-12-2018 Cardiovascular Lab Report [facility] Patient Name: [facility] MR #: [id number] Physician: Vadim Moreno Department of [facility] Service Date: 09/12/2018 Division of Birthdate: 1950 Cardiology Room #: [facility] [place] [address] Cardiovascular Laboratory Report INDICATIONS: The patient is a 68-year-old man, known to have coronary artery disease, status post stenting of the ramus vessel in January 2018 in the setting of [id number] myocardial infarction. At that time, he had [...] signed informed consent. 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 The left neck area was prepped and draped in usual fashion. Note that we went for the left internal jugular vein access, as he had multiple procedures in the right carotid in the past and due to the patient's preference. The left internal jugular vein was accessed using micropuncture technique under ultrasound guidance and a 6-Cymro x 11 cm sheath was placed. A 6-Cymro Olivia catheter was used for right heart catheterization with measurement of pressures and calculation of cardiac output using the estimated Rose Marie method. Olivia catheter was removed. Steve test was favorable on the right. Access in the right radial artery was obtained using micropuncture technique and ultrasound guidance. A 6-Cymro x 11 cm Hydrophilic sheath was advanced. Verapamil was given through the sheath and heparin was administered intravenously. Bilateral selective coronary angiography was then performed using 6-Cymro JR5 and JL3.5 diagnostic catheters. Catheters were [...] narrowing right after the takeoff of a avbuw-tv-cwsgkfbk size first diagonal branch, that diagonal branch [...] the ostial to proximal segment of a hosbh-ma-ptltdlcv size diagonal branch. 2. The angiographic appearance [...] Veronica M.D. Date Trans: 09/12/2018 10:28 Larisa/harvey [id number] cc: Ruben Luo M.D. [address] [place] [id number] Normal The [facility] BASIC METABOLIC PANELon 10-1 Calcium [Mass/Vol] 8.4 mg/dL Low 8.6-10.3 The [facility] Comment on above: Order Comment: No: D o not add to previous draw Performed By: #### 0 0071, 30192, 45516 #### [facility] [address] [place] [address], [facility] Chloride [Moles/Vol] 106 mmol/L Normal 98-107 The [facility] Comment on above: Order Comment: No: D o not add to previous draw Performed By: #### 0 0071, 14200, 83040 #### [facility] [address] [place] [address], [place] CO2 [Moles/Vol] 26 mmol/L Normal 21-31 [facility] Comment on above: Order Comment: No: D o not add to previous draw Performed By: #### 0 0071, 17398, 84054 #### [facility] [address] [place] [address], [place] Creatinine [Mass/Vol] 1.25 mg/dL Normal 0.70-1.30 [facility] Comment on above: Order Comment: No: D o not add to previous draw Performed By: #### 0 0071, , 78973 #### [facility] [address] [place] [address], [place] GFR/1.73 sq M predicted among blacks MDRD (S/P/Bld) [Vol rate/Area] mL/min/{1.73_m2} Normal >60 [facility] Comment on above: Order Comment: No: D o not add to previous draw Performed By: #### 0 0071, , 48581 #### [facility] [address] [place] [address], [place] GFR/1.73 sq M predicted among non-blacks MDRD (S/P/Bld) [Vol rate/Area] 57 ml/min/1.73sq m Abnormal >60 The [facility] Comment on above: Order Comment: No: D o not add to previous draw Performed By: #### 0 0071, , 99518 #### [facility] [address] [place] [address], [place] Glucose [Mass/Vol] 183 mg/dL High 70-100 [facility] Comment on above: Order Comment: No: D o not add to previous draw Performed By: #### 0 0071, 07690, 65742 #### [facility] [address] [place] [address], [place] Potassium [Moles/Vol] 5.4 mmol/L High 3.5-5.1 [facility] Comment on above: Order Comment: No: D o not add to previous draw Performed By: #### 0 0071, 88953, 12119 #### [facility] [address] [place] [id number], [facility] Sodium [Moles/Vol] 135 mmol/L Low 136-145 The [facility] Comment on above: Order Comment: No: D o not add to previous draw Performed By: #### 0 0071, 56746, 56972 #### [facility] [address] [place] [address], [facility] Urea nitrogen [Mass/Vol] 26 mg/dL High 7-25 The [facility] Comment on above: Order Comment: No: D o not add to previous draw Performed By: #### 0 0071, 05812, 14777 #### [facility] [address] [place] [address], [facility] CBC COMPLETE BLOOD COUNTon - Erythrocyte distribution width (RBC) [Ratio] 13.2 % Normal 11.5-15.0 [facility] Comment on above: Order Comment: No: D o not add to previous draw Performed By: #### 5 0608 #### [facility] [address] [place] [address], [facility] Hematocrit (Bld) [Volume fraction] 31.0 % Low 39.0-50.0 The [facility] Comment on above: Order Comment: No: D o not add to previous draw Performed By: #### 5 0608 #### [facility] [address] [place] [id number], [facility] Hemoglobin (Bld) [Mass/Vol] 10.6 g/dL Low 13.0-17.0 The [facility] Comment on above: Order Comment: No: D o not add to previous draw Performed By: #### 5 0608 #### [facility] [address] [place] [id number], [facility] MCH (RBC) [Entitic mass] 30.5 pg Normal 27.0-33.0 The [facility] Comment on above: Order Comment: No: D o not add to previous draw Performed By: #### 5 0608 #### [facility] [address] [place] [address], [facility] MCHC (RBC) [Mass/Vol] 34.2 g/dL Normal 32.0-35.0 The [facility] Comment on above: Order Comment: No: D o not add to previous draw Performed By: #### 5 0608 #### [facility] [address] [address], [facility] MCV (RBC) [Entitic vol] 89.3 fL Normal 82.0-98.0 The [facility] Comment on above: Order Comment: No: D o not add to previous draw Performed By: #### 5 0608 #### [facility] [address] [place] [id number], [facility] Nucleated RBC/100 WBC (Bld) [Ratio] 0 % Normal 0-0 The [facility] Comment on above: Order Comment: No: D o not add to previous draw Performed By: #### 5 0608 #### [facility] [address] [facility] [place] [id number], [facility] PLAT CNT 174 10*3/uL Normal 150-400 The [facility] Comment on above: Order Comment: No: D o not add to previous draw Performed By: #### 5 0608 #### [facility] [address] [place] [id number], [facility] RBC (Bld) [#/Vol] 3.47 10*6/uL Low 4.20-5.70 The [facility] Comment on above: Order Comment: No: D o not add to previous draw Performed By: #### 5 0608 #### [facility] [address] [facility] WBC (Bld) [#/Vol] 8.57 10*3/uL Normal 4.00-10.60 The [facility] Comment on above: Order Comment: No: D o not add to previous draw Performed By: #### 5 0608 #### [facility] [address] [facility]. [address] Cardiovascular Lab Reporton 01-18-2018 Cardiovascular Lab Report [facility] Patient Name: Omer Santos [facility] MR #: [id number] Physician: Vadim Malagon of [facility] Veronica Medicine Service Date: 01/17/2018 Division of Birthdate: 1950 Cardiology Room #: 3CD [id number] Adult Cardiovascular Services [facility] [address] [facility]. [place] [address] Cardiovascular Laboratory Report INDICATION: Omer Santos is a 67-year-old man, who was admitted with bmc-GN-seqrfuk elevation myocardial infarction. He was referred for [...] signed informed consent. 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 The left wrist area was prepped and draped in usual fashion. Steve's test was favorable. Access was obtained in the left radial artery. Using micropuncture technique, a 6-Cymro x 11 cm Hydrophilic sheath was advanced. Verapamil was given through the sheath and heparin was administered intravenously. Bilateral selective coronary angiography was then performed using 6-Cymro JL3.5 and JR4 diagnostic catheters. Catheters were removed. A 6-Cymro XB 3.0 guiding catheter was advanced and used to engage in the left main coronary ostium. Therapeutic ACT was confirmed during the procedure and additional heparin given as needed. A [place] wire was advanced into the distal ramus vessel. Balloon angioplasty in the proximal ramus was performed using Emerge 2.5 x 12 mm balloon inflated at 12 atmospheres. Angiography revealed suboptimal results. This was treated using a Synergy 2.75 x 16 mm drug-eluting stent deployed at 11 atmospheres and post dilated using NC Quantum [place] 2.75 x 12 mm noncompliant balloon inflated [...] for minimum of 1 year after acute vqh-TV-gdqjadg elevation myocardial infarction and drug-eluting stenting. 3. [...] P/Vadim Veronica M.D. Date Trans: 01/17/2018 10:32 P/harvey [id number] cc: Ruben Luo M.D. [address] [place] [phone] Otilia Sanchez M.D. E R Physican...do Not Send [address] [facility] [address] Normal The [facility] MAGNESIUM BLOODon 01-18-2018 Magnesium [Mass/Vol] 1.9 mg/dL Normal 1.9-2.7 [facility] Comment on above: Performed By: #### 0 0071, 11721, 20149 #### [facility] [address] TROPONIN-Ion 01-18-2018 Troponin I.cardiac [Mass/Vol] 0.84 ng/mL Critically high 0.00-0.04 The [facility] Comment on above: Result Comment: M-CR ITICAL RESULT(S) REVIEWED, CALLED TO AND READ BACK BY AMARA PATTERSON RN AT 0916. REFERENCE RANGES: 0.00 - 0.04 ng/ml NORMAL 0.05 - 0.50 ng/ml INDETERMINATE > 0.50 ng/ml CONSISTENT WITH AN M.I. Performed By: #### 0 0071, 42288, 55279 #### [facility] [address] [place] [address], [facility] BASIC METABOLIC PANELon 10- Calcium [Mass/Vol] 8.8 mg/dL Normal 8.6-10.3 [facility] Comment on above: Order Comment: No: D o not add to previous draw Performed By: #### 3 5199, 12486 #### [facility] [address] [place] [address], [place] Chloride [Moles/Vol] 103 mmol/L Normal 98-107 The [facility] Comment on above: Order Comment: No: D o not add to previous draw Performed By: #### 3 5199, 35385 #### [facility] [address] [place] [address], [place] CO2 [Moles/Vol] 25 mmol/L Normal 21-31 The [facility] Comment on above: Order Comment: No: D o not add to previous draw Performed By: #### 3 5199, 90045 #### [facility] [address] [place] [address], [place] Creatinine [Mass/Vol] 1.36 mg/dL High 0.70-1.30 The [facility] Comment on above: Order Comment: No: D o not add to previous draw Performed By: #### 3 5199, 45946 #### [facility] [address] [place] [address], [place] GFR/1.73 sq M predicted among blacks MDRD (S/P/Bld) [Vol rate/Area] mL/min/{1.73_m2} Normal >60 The [facility] Comment on above: Order Comment: No: D o not add to previous draw Performed By: #### 3 5199, 53808 #### [facility] [address] [place] [address], [place] GFR/1.73 sq M predicted among non-blacks MDRD (S/P/Bld) [Vol rate/Area] 52 ml/min/1.73sq m Abnormal >60 The [facility] Comment on above: Order Comment: No: D o not add to previous draw Performed By: #### 3 5199, 92980 #### [facility] [address] [place] [id number], [facility] Glucose [Mass/Vol] 265 mg/dL High 70-100 The [facility] Comment on above: Order Comment: No: D o not add to previous draw Performed By: #### 3 5199, 30674 #### [facility] [address] [place] [id number], [facility] Potassium [Moles/Vol] 4.7 mmol/L Normal 3.5-5.1 The [facility] Comment on above: Order Comment: No: D o not add to previous draw Performed By: #### 3 5199, 16681 #### [facility] [address] [place] [id number], [facility] Sodium [Moles/Vol] 136 mmol/L Normal 136-145 [facility] Comment on above: Order Comment: No: D o not add to previous draw Performed By: #### 3 5199, 79102 #### [facility] [address] [facility] [place] [address], [facility] Urea nitrogen [Mass/Vol] 25 mg/dL Normal 7-25 The [facility] Comment on above: Order Comment: No: D o not add to previous draw Performed By: #### 3 5199, 45700 #### [facility] [address] [facility] [place] [address], [facility] CBC W/DIFFon 01-17-2018 ABS BASOPHILS 0.1 10*3/uL Normal 0.0-0.2 The [facility] Comment on above: Performed By: #### 5 0103 #### [facility] [address] [place] [address], [facility] ABS IMM GRANS 0.1 10*3/uL Normal 0.0-0.2 The [facility] Comment on above: Performed By: #### 5 0103 #### [facility] [address] [place] [address], [facility] ABS NEUTROPHILS 4.1 10*3/uL Normal 1.6-7.6 [facility] Comment on above: Performed By: #### 5 3 #### [facility] [address] [place] [address], [facility] Basophils/100 WBC (Bld) 0.7 % Normal 0.0-1.0 The [facility] Comment on above: Performed By: #### 5 0103 #### [facility] [address] [facility] [address], [facility] Eosinophils (Bld) [#/Vol] 0.5 10*3/uL Normal 0.0-0.5 [facility] Comment on above: Performed By: #### 5 102 #### [facility] [address] [address], [facility] Eosinophils/100 WBC (Bld) 6.6 % High 0.0-6.0 The [facility] Comment on above: Performed By: #### 5 102 #### [facility] [address] [facility] [address], [facility] Erythrocyte distribution width (RBC) [Ratio] 13.1 % Normal 11.5-15.0 The [facility] Comment on above: Performed By: #### 5 3 #### [facility] [address] [place] [address], [facility] Hematocrit (Bld) [Volume fraction] 30.5 % Low 39.0-50.0 The [facility] Comment on above: Performed By: #### 5 102 #### [facility] [address] [place] [address], [facility] Hemoglobin (Bld) [Mass/Vol] 10.8 g/dL Low 13.0-17.0 The [facility] Comment on above: Performed By: #### 5 3 #### [facility] [address] [place] [address], [facility] IMMATURE GRANS 1.8 % High 0.0-1.0 [facility] Comment on above: Performed By: #### 3 #### [facility] [address] [facility] [address], [facility] Lymphocytes (Bld) [#/Vol] 2.1 10*3/uL Normal 1.2-4.0 The [facility] Comment on above: Performed By: #### 3 #### [facility] [address] [place] [address], [facility] Lymphocytes/100 WBC (Bld) 28.1 % Normal 20.0-45.0 The [facility] Comment on above: Performed By: #### 102 #### [facility] [address] [facility] [place] [address], [facility] MCH (RBC) [Entitic mass] 31.3 pg Normal 27.0-33.0 The [facility] Comment on above: Performed By: #### 3 #### [facility] [address] [facility] [place] [address], [facility] MCHC (RBC) [Mass/Vol] 35.4 g/dL High 32.0-35.0 [facility] Comment on above: Performed By: #### 3 #### [facility] [address] [place] [address], [facility] MCV (RBC) [Entitic vol] 88.4 fL Normal 82.0-98.0 [facility] Comment on above: Performed By: #### 3 #### [facility] [address] [place] [address], [facility] Monocytes (Bld) [#/Vol] 0.5 10*3/uL Normal 0.1-1.0 The [facility] Comment on above: Performed By: #### 3 #### [facility] [address] [place] [address], [facility] MONOS 6.3 % Normal 5.0-12.0 [facility] Comment on above: Performed By: #### 5 0103 #### [facility] [address] [place] [address], [facility] Neutrophils/100 WBC (Bld) 56.5 % Normal 40.0-72.0 The [facility] Comment on above: Performed By: #### 5 0103 #### [facility] [address] [place] [address], [facility] Nucleated RBC/100 WBC (Bld) [Ratio] 0 % Normal 0-0 [facility] Comment on above: Performed By: #### 5 0103 #### [facility] [address] [place] [address], [facility] PLAT CNT 175 10*3/uL Normal 150-400 The [facility] Comment on above: Performed By: #### 5 0103 #### [facility] [address] [facility] [place] [address], [facility] RBC (Bld) [#/Vol] 3.45 10*6/uL Low 4.20-5.70 [facility] Comment on above: Performed By: #### 5 0103 #### [facility] [address] [facility] [place] [address], [facility] WBC (Bld) [#/Vol] 7.30 10*3/uL Normal 4.00-10.60 [facility] Comment on above: Performed By: #### 5 0103 #### [facility] [address] [facility] [place] [address], [facility] History and Physicalon 01-17 History and Physical MR#: [id number] [facility] Pt. Name: Omer Santos Admitted: 01/17/2018 Date of : 1950 Attending Physician: Andre Vizcaino MD Room #: [id number] Discharge Date: HISTORY AND PHYSICAL CHIEF COMPLAINT: Chest pain. HISTORY OF PRESENT ILLNESS: The patient is a 67-year-old male, who presented initially to [facility] complaining of chest pain. He states that [...] time. His initial workup was negative at [place], did a repeat troponin, which was elevated. He was started on a heparin drip and transferred here to [facility] for high-level care to be seen by Cardiology for possible NSTEMI. Presently he states he is chest pain free. He received some morphine in [place], to which he attributes his current pain-free [...] alert and oriented x3. LABORATORY STUDIES: From [facility] dated January 16, 2018. BNP 311. CBC: [...] P Andre Vizcaino MD Date Dict: 01/17/2018/06:26 Larisa/Andre Vizcaino MD Date Trans: 01/17/2018 07:04 Larisa/harvey [id number] Normal The [facility] TROPONIN-Ion 01-17-2018 Troponin I.cardiac [Mass/Vol] 0.22 ng/mL High 0.00-0.04 [facility] Comment on above: Order Comment: No: D o not add to previous draw Result Comment: REFE RENCE RANGES: 0.00 - 0.04 ng/ml NORMAL 0.05 - 0.50 ng/ml INDETERMINATE > 0.50 ng/ml CONSISTENT WITH AN M.I. Performed By: #### 3 5220, 06088 #### [facility] [address] UFH HEPARIN ASSAYon 01-18-20 18 UNFRACTIONATED HEPARIN <0.10 Critically low 0.30-0.70 The [facility] Comment on above: Result Comment: [place] roxaban and Apixaban will interfere with the anti Xa assay used to monitor UFH and LMWH. RESULTS CHECKED AND CALLED. ACCURATELY READ BACK BY AMARA PATTERSON RN @ 0651 Performed By: #### 3 8944 #### [facility] [address] [place] [address], [facility] Vital Signs Date Time Vital Sign Value Performing Clinician Facility 03-26-2023 09:00-0500 Body height 167.64 cm Oma Donato Other [facility] Other 03-26-2023 09:00-0500 Body mass index (BMI) [Ratio] 27.5 kg/m2 Oma Donato Other [facility] Other 03-26-2023 09:00-0500 Body temperature 96.6 [degF] Oma Donato Other [facility] Other 03-26-2023 09:00-0500 Body weight 77.29 kg Oma Donato Other [facility] Other 03-26-2023 09:00-0500 Respiratory rate 16 /min Oma Donato Other [facility] Other 03-26-2023 09:00-0500 SaO2% (BldA) [Mass fraction] 98 % Oma Donato Other [facility] Other 03-20-2023 10:30-0500 Body height 167.64 cm Ney Roman Other [facility] Other 03-20-2023 10:30-0500 Body mass index (BMI) [Ratio] 25.82 kg/m2 Ney Roman Other [facility] Other 03-20-2023 10:30-0500 Body temperature 97.8 [degF] Ney Roman Other [facility] Other 03-20-2023 10:30-0500 Body weight 72.58 kg Ney Liaocassidy Other [facility] Other 03-20-2023 10:30-0500 Diastolic blood pressure 64 mm[Hg] Ney Liaocassidy Other [facility] Other 03-20-2023 10:30-0500 SaO2% (BldA) [Mass fraction] 98 % Ney Liaocassidy Other [facility] Other 03-20-2023 10:30-0500 Systolic blood pressure 114 mm[Hg] Ney Jessie Other [facility] Other 02-25-2023 13:40-0500 Body height 167.64 cm Oma Donato Other [facility] Other 02-25-2023 13:40-0500 Body mass index (BMI) [Ratio] 26.44 kg/m2 Oma Donato Other [facility] Other 02-25-2023 13:40-0500 Body temperature 97.2 [degF] Oma Donato Other [facility] Other 02-25-2023 13:40-0500 Body weight 74.3 kg Oma Donato Other [facility] Other 02-25-2023 13:40-0500 Diastolic blood pressure 64 mm[Hg] Oma Donato Other [facility] Other 02-25-2023 13:40-0500 Respiratory rate 18 /min Oma Donato Other [facility] Other 02-25-2023 13:40-0500 SaO2% (BldA) [Mass fraction] 99 % Oma Donato Other [facility] Other 02-25-2023 13:40-0500 Systolic blood pressure 124 mm[Hg] Oma Donato Other [facility] Other 01-29-2023 14:00-0400 Body height 167.64 cm Oma Donato Other [facility] Other 01-29-2023 14:00-0400 Body mass index (BMI) [Ratio] 27.4 kg/m2 Oma Donato Other [facility] Other 01-29-2023 14:00-0400 Body temperature 96.4 [degF] Oma Donato Other [facility] Other 01-29-2023 14:00-0400 Body weight 77.02 kg Oma Donato Other [facility] Other 01-29-2023 14:00-0400 Diastolic blood pressure 61 mm[Hg] Oma Donato Other [facility] Other 01-29-2023 14:00-0400 Respiratory rate 18 /min Oma Donato Other [facility] Other 01-29-2023 14:00-0400 SaO2% (BldA) [Mass fraction] 99 % Oma Donato Other [facility] Other 01-29-2023 14:00-0400 Systolic blood pressure 166 mm[Hg] Oma Donato Other [facility] Other 01-17-2023 12:20-0400 Body height 167.64 cm Oma Donato Other [facility] Other 01-17-2023 12:20-0400 Body mass index (BMI) [Ratio] 28.34 kg/m2 Oma Donato Other [facility] Other 01-17-2023 12:20-0400 Body temperature 97.3 [degF] Oma Donato Other [facility] Other 01-17-2023 12:20-0400 Body weight 79.65 kg Oma Donato Other [facility] Other 01-17-2023 12:20-0400 Diastolic blood pressure 66 mm[Hg] Oma Donato Other [facility] Other 01-17-2023 12:20-0400 Respiratory rate 18 /min Oma Donato Other [facility] Other 01-17-2023 12:20-0400 SaO2% (BldA) [Mass fraction] 98 % Oma Donato Other [facility] Other 01-17-2023 12:20-0400 Systolic blood pressure 149 mm[Hg] Oma Donato Other [facility] Other 12-06-2022 09:40-0400 Body height 167.64 cm Oma Donato Other [facility] Other 12-06-2022 09:40-0400 Body mass index (BMI) [Ratio] 27.79 kg/m2 Oma Donato Other [facility] Other 12-06-2022 09:40-0400 Body temperature 96.2 [degF] Oma Donato Other [facility] Other 12-06-2022 09:40-0400 Body weight 78.11 kg Oma Donato Other [facility] Other 12-06-2022 09:40-0400 Diastolic blood pressure 60 mm[Hg] Oma Donato Other [facility] Other 12-06-2022 09:40-0400 Respiratory rate 16 /min Oma Donato Other [facility] Other 12-06-2022 09:40-0400 SaO2% (BldA) [Mass fraction] 99 % Oma Donato Other [facility] Other 12-06-2022 09:40-0400 Systolic blood pressure 92 mm[Hg] Oma Donato Other [facility] Other 11-15-2022 13:20-0400 Body height 167.64 cm Oma Donato Other [facility] Other 11-15-2022 13:20-0400 Body temperature 96.5 [degF] Oma Donato Other [facility] Other 11-15-2022 13:20-0400 Diastolic blood pressure 64 mm[Hg] Oma Donato Other [facility] Other 11-15-2022 13:20-0400 Respiratory rate 18 /min Oma Donato Other [facility] Other 11-15-2022 13:20-0400 SaO2% (BldA) [Mass fraction] 98 % Oma Donato Other [facility] Other 11-15-2022 13:20-0400 Systolic blood pressure 130 mm[Hg] Oma Donato Other [facility] Other 10-25-2022 10:00-0400 Body height 167.64 cm Oma Donato Other [facility] Other 10-25-2022 10:00-0400 Body mass index (BMI) [Ratio] 27.79 kg/m2 Oma Donato Other [facility] Other 10-25-2022 10:00-0400 Body temperature 96.1 [degF] Oma Donato Other [facility] Other 10-25-2022 10:00-0400 Body weight 78.11 kg Oma Donato Other [facility] Other 10-25-2022 10:00-0400 Diastolic blood pressure 54 mm[Hg] Oma Donato Other [facility] Other 10-25-2022 10:00-0400 Respiratory rate 18 /min Oma Donato Other [facility] Other 10-25-2022 10:00-0400 SaO2% (BldA) [Mass fraction] 99 % Oma Donato Other [facility] Other 10-25-2022 10:00-0400 Systolic blood pressure 143 mm[Hg] Oma Dontao Other [facility] Other 09-10-2022 16:20-0400 Body height 167.64 cm Oma Donato Other [facility] Other 09-10-2022 16:20-0400 Body mass index (BMI) [Ratio] 28.34 kg/m2 Oma Donato Other [facility] Other 09-10-2022 16:20-0400 Body temperature 97.2 [degF] Oma Donato Other [facility] Other 09-10-2022 16:20-0400 Body weight 79.65 kg Oma Donato Other [facility] Other 09-10-2022 16:20-0400 Diastolic blood pressure 64 mm[Hg] Oma Donato Other [employer] Other 09-10-2022 16:20-0400 Respiratory rate 18 /min Oma Donato Other [employer] Other 09-10-2022 16:20-0400 SaO2% (BldA) [Mass fraction] 98 % Oma Donato Other [employer] Other 09-10-2022 16:20-0400 Systolic blood pressure 128 mm[Hg] Oma Donato Other [employer] Other 08-22-2022 10:30-0400 Body height 167.64 cm Dasia Flowers Other [employer] Other 08-22-2022 10:30-0400 Body mass index (BMI) [Ratio] 27.92 kg/m2 Dasia Flowers Other [employer] Other 08-22-2022 10:30-0400 Body temperature 97.8 [degF] Dasia Flowers Other [employer] Other 08-22-2022 10:30-0400 Body weight 78.47 kg Dasia Flowers Other [employer] Other 08-22-2022 10:30-0400 Diastolic blood pressure 58 mm[Hg] Dasia Flowers Other [employer] Other 08-22-2022 10:30-0400 SaO2% (BldA) [Mass fraction] 98 % Dasia Flowers Other [employer] Other 08-22-2022 10:30-0400 Systolic blood pressure 96 mm[Hg] Dasia Flowers Other [employer] Other 08-14-2022 10:20-0400 Body height 167.64 cm Dorinda GOSOcarolinajeremi Other [employer] Other 08-14-2022 10:20-0400 Body mass index (BMI) [Ratio] 27.92 kg/m2 [employer] Other [employer] Other 08-14-2022 10:20-0400 Body temperature 96.8 [degF] Dorinda [employer] Other [employer] Other 08-14-2022 10:20-0400 Body weight 78.47 kg Dorinda Motley Other [employer] Other 08-14-2022 10:20-0400 Diastolic blood pressure 57 mm[Hg] Dorinda Motley Other [employer] Other 08-14-2022 10:20-0400 Respiratory rate 18 /min Dorinda Motley Other [employer] Other 08-14-2022 10:20-0400 SaO2% (BldA) [Mass fraction] 99 % Dorinda Motley Other [employer] Other 08-14-2022 10:20-0400 Systolic blood pressure 98 mm[Hg] Dorinda Motley Other [employer] Other 07-26-2022 15:24-0400 Body temperature 98.01 [degF] Gabe Harris MD Work Phone: [employer] 07-26-2022 15:24-0400 Diastolic blood pressure 70 mm[Hg] Gabe aHrris MD Work Phone: [facility] [employer] 07-26-2022 15:24-0400 Heart rate 74 /min Gabe Harris MD Work Phone: [facility] [employer] 07-26-2022 15:24-0400 Respiratory rate 18 /min Gabe Harris MD Work Phone: [facility] [employer] 07-26-2022 15:24-0400 SaO2% (BldA) [Mass fraction] 98 % Gabe Harris MD Work Phone: [facility] [employer] 07-26-2022 15:24-0400 Systolic blood pressure 114 mm[Hg] Gabe Harris MD Work Phone: [employer] 07-23-2022 03:33-0400 SaO2% (BldA) [Mass fraction] 97 % Gabe Harris MD Work Phone: [facility] [employer] 07-19-2022 18:09-0400 Body height 170.2 cm Gabe Harris MD Work Phone: [facility] [employer] 07-19-2022 18:09-0400 Body mass index (BMI) [Ratio] 26.47 kg/m2 Gabe Harris MD Work Phone: [facility] [employer] 07-19-2022 18:09-0400 Body weight 76.66 kg Gabe Harris MD Work Phone: [facility] [employer] 07-17-2022 09:40-0400 Body height 167.64 cm Oma Donato Other [employer] Other 07-17-2022 09:40-0400 Body mass index (BMI) [Ratio] 27.98 kg/m2 Oma Donato Other [employer] Other 07-17-2022 09:40-0400 Body temperature 98.3 [degF] Oma Donato Other [employer] Other 07-17-2022 09:40-0400 Body weight 78.65 kg Oma Donato Other [employer] Other 07-17-2022 09:40-0400 Diastolic blood pressure 60 mm[Hg] Oma Donato Other [employer] Other 07-17-2022 09:40-0400 Respiratory rate 18 /min Oma Donato Other [employer] Other 07-17-2022 09:40-0400 SaO2% (BldA) [Mass fraction] 97 % Oma Donato Other [employer] Other 07-17-2022 09:40-0400 Systolic blood pressure 124 mm[Hg] Oma Donato Other [employer] Other 06-21-2022 10:40-0400 Body height 167.64 cm Oma Donato Other [employer] Other 06-21-2022 10:40-0400 Body mass index (BMI) [Ratio] 28.5 kg/m2 Oma Donato Other [employer] Other 06-21-2022 10:40-0400 Body temperature 96.7 [degF] Oma Donato Other [employer] Other 06-21-2022 10:40-0400 Body weight 80.11 kg Oma Donato Other [employer] Other 06-21-2022 10:40-0400 Diastolic blood pressure 50 mm[Hg] Oma Donato Other [employer] Other 06-21-2022 10:40-0400 Respiratory rate 18 /min Oma Donato Other [employer] Other 06-21-2022 10:40-0400 SaO2% (BldA) [Mass fraction] 96 % Oma Donato Other [employer] Other 06-21-2022 10:40-0400 Systolic blood pressure 102 mm[Hg] Oma Donato Other [employer] Other 05-10-2022 10:00-0500 Body height 167.64 cm Oma Donato Other [employer] Other 05-10-2022 10:00-0500 Body mass index (BMI) [Ratio] 29.66 kg/m2 Oma Donato Other [employer] Other 05-10-2022 10:00-0500 Body temperature 96.6 [degF] Oma Donato Other [employer] Other 05-10-2022 10:00-0500 Body weight 83.37 kg Oma Donato Other [employer] Other 05-10-2022 10:00-0500 Diastolic blood pressure 53 mm[Hg] Oma Donato Other [employer] Other 05-10-2022 10:00-0500 Respiratory rate 18 /min Oma Donato Other [employer] Other 05-10-2022 10:00-0500 SaO2% (BldA) [Mass fraction] 98 % Oma Donato Other [employer] Other 05-10-2022 10:00-0500 Systolic blood pressure 134 mm[Hg] Oma Donato Other [employer] Other 05-07-2022 09:40-0500 Body height 167.64 cm Oma Donato Other [employer] Other 05-07-2022 09:40-0500 Body mass index (BMI) [Ratio] 29.21 kg/m2 Oma Donato Other [employer] Other 05-07-2022 09:40-0500 Body temperature 98.7 [degF] Oma Donato Other [employer] Other 05-07-2022 09:40-0500 Body weight 82.1 kg Oma Donato Other [employer] Other 05-07-2022 09:40-0500 Diastolic blood pressure 70 mm[Hg] Oma Donato Other [employer] Other 05-07-2022 09:40-0500 Respiratory rate 18 /min Oma Donato Other [employer] Other 05-07-2022 09:40-0500 SaO2% (BldA) [Mass fraction] 98 % Oma Donato Other [employer] Other 05-07-2022 09:40-0500 Systolic blood pressure 130 mm[Hg] Oma Donato Other [employer] Other 04-16-2022 10:18-0500 Diastolic blood pressure 58 mm[Hg] MD Ruben Luo Work Phone: [facility] 04-16-2022 10:18-0500 Heart rate 67 /min MD Ruben Luo Work Phone: [facility] 04-16-2022 10:18-0500 Respiratory rate 16 /min MD Ruben Luo Work Phone: [facility] 04-16-2022 10:18-0500 SaO2% (BldA) [Mass fraction] 98 % MD Ruben Luo Work Phone: [facility] 04-16-2022 10:18-0500 Systolic blood pressure 110 mm[Hg] MD Ruben Luo Work Phone: [facility] 04-16-2022 08:34-0500 Body height 170.18 cm MD Ruben Luo Work Phone: [facility] 04-16-2022 08:34-0500 Body temperature 98.3 [degF] MD Ruben Luo Work Phone: [facility] 04-16-2022 08:34-0500 Body weight 78.01 kg MD Ruben Luo Work Phone: [facility] 12-14-2021 10:20-0400 Body height 167.64 cm Oma Donato Other [employer] Other 12-14-2021 10:20-0400 Body mass index (BMI) [Ratio] 28.66 kg/m2 Oma Donato Other [employer] Other 12-14-2021 10:20-0400 Body temperature 96.7 [degF] Oma Donato Other [employer] Other 12-14-2021 10:20-0400 Body weight 80.56 kg Oma Donato Other [employer] Other 12-14-2021 10:20-0400 Diastolic blood pressure 61 mm[Hg] Oma Donato Other [employer] Other 12-14-2021 10:20-0400 Respiratory rate 18 /min Oma Donato Other [employer] Other 12-14-2021 10:20-0400 SaO2% (BldA) [Mass fraction] 99 % Oma Donato Other [employer] Other 12-14-2021 10:20-0400 Systolic blood pressure 138 mm[Hg] Oma Donato Other [employer] Other 09-21-2021 09:40-0400 Body height 167.64 cm Oma Donato Other [employer] Other 09-21-2021 09:40-0400 Body mass index (BMI) [Ratio] 29.57 kg/m2 Oma Donato Other [employer] Other 09-21-2021 09:40-0400 Body temperature 96.8 [degF] Oma Donato Other [employer] Other 09-21-2021 09:40-0400 Body weight 83.1 kg Oma Donato Other [employer] Other 09-21-2021 09:40-0400 Diastolic blood pressure 63 mm[Hg] Oma Donato Other [employer] Other 09-21-2021 09:40-0400 Respiratory rate 18 /min Oma Donato Other [employer] Other 09-21-2021 09:40-0400 SaO2% (BldA) [Mass fraction] 98 % Oma Donato Other [employer] Other 09-21-2021 09:40-0400 Systolic blood pressure 116 mm[Hg] Oma Donato Other [employer] Other 08-14-2021 15:20-0400 Body height 167.64 cm Oma Donato Other [employer] Other 08-14-2021 15:20-0400 Body mass index (BMI) [Ratio] 29.7 kg/m2 Oma Donato Other [employer] Other 08-14-2021 15:20-0400 Body temperature 98.4 [degF] Oma Donato Other [employer] Other 08-14-2021 15:20-0400 Body weight 83.46 kg Oma Donato Other [employer] Other 08-14-2021 15:20-0400 Diastolic blood pressure 60 mm[Hg] Oma Donato Other [employer] Other 08-14-2021 15:20-0400 Respiratory rate 18 /min Oma Donato Other [employer] Other 08-14-2021 15:20-0400 SaO2% (BldA) [Mass fraction] 99 % Oma Donato Other [employer] Other 08-14-2021 15:20-0400 Systolic blood pressure 152 mm[Hg] Oma Donato Other [employer] Other 08-10-2021 11:00-0400 Body height 167.64 cm Ney Roman Other [employer] Other 08-10-2021 11:00-0400 Body mass index (BMI) [Ratio] 29.21 kg/m2 Ney Jessie Other [employer] Other 08-10-2021 11:00-0400 Body temperature 96.9 [degF] Ney Roman Other [employer] Other 08-10-2021 11:00-0400 Body weight 82.1 kg Ney Jessie Other [employer] Other 08-10-2021 11:00-0400 Diastolic blood pressure 58 mm[Hg] Ney Roman Other [employer] Other 08-10-2021 11:00-0400 SaO2% (BldA) [Mass fraction] 95 % Ney Roman Other [employer] Other 08-10-2021 11:00-0400 Systolic blood pressure 130 mm[Hg] Ney Roman Other [employer] Other Encounters Encounter Date Encounter Type Care Provider Facility Start: 04-30-2023 End: 04-30-2023 ambulatory RUBEN LUO Not Available Start: 04-15-2023 End: 04-15-2023 ambulatory Oma Donato Other [employer] Other Start: 04-15-2023 Telephone encounter Oma Donato [facility] Start: 03-26-2023 End: 03-26-2023 ambulatory Oma Donato Other [employer] Other Start: 03-26-2023 Office outpatient vi sit 15 minutes Oma Donato [facility] Start: 03-20-2023 Office outpatient vi sit 15 minutes Ney Roman [facility] Start: 03-20-2023 End: 03-20-2023 ambulatory MD Ruben Luo Work Phone: [employer] Other Start: 03-20-2023 End: 03-20-2023 Patient encounter procedure MD Ruben Luo Work Phone: [facility] Start: 02-25-2023 (INJECTION) INJECTION Oma Donato [facility] Start: 02-25-2023 End: 02-25-2023 ambulatory Oma Donato Other [employer] Other Start: 02-20-2023 End: 02-20-2023 ambulatory [facility] Start: 02-11-2023 End: 02-11-2023 ambulatory Oma Donato Other [employer] Other Start: 02-11-2023 Telephone encounter Oma Donato [facility] Start: 01-31-2023 End: 02-01-2023 ambulatory Ruben Luo MD Facility:[facility] Start: 01-30-2023 End: 01-31-2023 ambulatory Ruben Luo MD Facility:[facility] Start: 01-29-2023 End: 01-29-2023 ambulatory Oma Donato Other [employer] Other Start: 01-29-2023 Office outpatient vi sit 15 minutes Oma Donato [facility] Start: 01-17-2023 (INJECTION) INJECTION O[facility] Don[facility] Start: 01-17-2023 End: 01-17-2023 ambulatory Oma Donato Other [employer] Other Start: 01-11-2023 End: 01-12-2023 [facility] Start: 01-11-2023 End: 01-12-2023 Encounter for preprocedural laboratory examination RUBEN Porter [facility] Start: 01-10-2023 End: 01-10-2023 Encounter for preprocedural cardiovascular examination [facility] Start: 01-10-2023 Encounter for other preprocedural examination [facility] Start: 01-10-2023 End: 01-13-2023 ambulatory [facility] Start: 01-10-2023 End: 01-13-2023 Encounter for preprocedural respiratory examination [facility] Start: 01-08-2023 End: 01-09-2023 ambulatory Ruben Luo MD Facility[facility] Start: 12-25-2022 End: 12-28-2022 ambulatory [facility] Start: 12-06-2022 End: 12-06-2022 ambulatory Oma Donato Other [employer] Other Start: 12-06-2022 Office outpatient vi sit 15 minutes Oma Donato [facility] Start: 11-15-2022 End: 11-15-2022 ambulatory Oma Donato Other [employer] Other Start: 11-15-2022 Office outpatient vi sit 15 minutes Oma Donato [facility] Start: 10-25-2022 End: 10-25-2022 ambulatory Oma Donato Other [employer] Other Start: 10-25-2022 Office outpatient vi sit 15 minutes Oma Donato [facility] Start: 09-10-2022 End: 09-10-2022 ambulatory Oma Donato Other [employer] Other Start: 09-10-2022 Office outpatient vi sit 15 minutes Oma Donato [facility] Start: 08-22-2022 End: 08-22-2022 ambulatory Dasia Flowers Other [employer] Other Start: 08-22-2022 Patient encounter procedure Dasia Flowers [facility] Start: 08-20-2022 End: 08-20-2022 ambulatory Ney Roman Facility:[facility] Start: 08-14-2022 End: 08-14-2022 ambulatory Azdandre Chenhous Other [employer] Other Start: 08-14-2022 Office outpatient vi sit 15 minutes Aziz Bakhous [facility] Start: 08-10-2022 End: 08-11-2022 ambulatory OMA DONATO Facility:[facility] Start: 08-08-2022 End: 08-09-[address] RUBEN LUO . Facility:[facility] Start: 07-19-2022 End: 07-26-2022 Evaluation and management of inpatient [facility] Start: 07-19-2022 End: 07-26-2022 Evaluation and management of inpatient Gabe Harris MD Work Phone: [facility] Comment on above: Lumbar stenosis with neurogenic claudication (Primary Dx) Start: 07-18-2022 End: 07-18-2022 ambulatory [facility] Start: 07-17-2022 End: 07-17-2022 ambulatory Oma Donato Other [employer] Other Start: 07-17-2022 Office outpatient vi sit 15 minutes Oma Donato [facility] Start: 07-12-2022 End: 07-13-2022 ambulatory OMA DONATO Facility:[facility] Start: 07-12-2022 End: 07-13-[address] RUBEN LUO . Facility:[facility] Start: 2022 Encounter for preprocedural laboratory examination DR DOCTOR BARROSO [facility] Start: 2022 Encounter for preprocedural respiratory examination DR DOCTOR BARROSO [facility] Start: 2022 End: 07-06-2022 ambulatory RUBEN Porter [facility] Start: 2022 Patient encounter procedure RUBEN LUO [facility] Start: 2022 End: [address] [facility] Start: 2022 End: 2022 Subsequent hospital visit by physician Kingsley Xr [address] Radiology Comment on above: Examination for norm al comparison for clinical research Start: 07-04-2022 End: 07-04-2022 ambulatory Oma Donato Other [employer] Other Start: 07-04-2022 Telephone encounter Oma Donato [facility] Start: 07-02-2022 End: 07-03-[address] DOCTOR BARROSO Facility:[facility] Start: 07-02-2022 End: 07-03-2022 Encounter for preprocedural respiratory examination DR DOCTOR BARROSO Facility:[facility] Start: 06-21-2022 End: 06-21-2022 ambulatory Oma Donato Other [employer] Other Start: 06-21-2022 Office outpatient vi sit 15 minutes Oma Donato [facility] Start: 06-21-2022 Telephone encounter Oma Donato [facility] Start: 06-19-2022 End: 06-20-2022 ambulatory OMA DONATO Facility:[facility] Start: 05-30-2022 End: 06-02-2022 ambulatory SHARON ELLISON [facility] Start: 05-30-2022 End: 06-01-2022 Subsequent hospital visit by physician Dhruv Macdonald [facility] Mammography Comment on above: Osteopenia of lumbar spine Spinal stenosis, lum bar region, without neurogenic claudication; Right foot drop Start: 05-10-2022 (INJECTION) INJECTION Oma Donato [facility] Start: 05-10-2022 End: 05-10-2022 ambulatory Oma Sewell Other [place] [employer] Other Start: 05-08-2022 End: 05-11-2022 amb[facility] Start: 05-08-2022 End: 05-10-2022 Subsequent hospital visit by physician [facility] Mri Scanner 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; Lumbar spondylosis; Postlaminectomy syndrome, lumbar; Spinal stenosis of lumbar region with neurogenic claudication Start: 05-07-2022 Office outpatient vi sit 25 minutes Oma Sewell [facility] Start: 05-07-2022 Telephone encounter [facility] Start: 05-07-2022 End: 05-08-2022 ambulatory OMA SEWELL [facility] Other Start: 04-16-2022 End: 04-16-2022 ambulatory Orlando Beaver Facility:[facility] Start: 04-16-2022 End: 04-16-2022 Admission to same day surgery center MD Ruben Luo Work Phone: [facility] Work Phone: Start: 04-16-2022 End: 04-16-2022 ambulatory MD Ruben Luo Work Phone: [facility] Work Phone: Start: 04-13-2022 End: 04-14-[address] RUBEN LUO . Facility: Start: 04-12-2022 End: 04-12-2022 ambulatory MD Ruben Luo Work Phone: [facility] Work Phone: Start: 04-12-2022 End: 04-12-2022 Patient encounter procedure MD Ruben Luo Work Phone: [facility] Work Phone: Start: 01-22-2022 Telephone encounter [place] OLIVEIRA [facility] Start: 01-22-2022 End: 01-23-2022 ambulatory OMA DONATO [place] [employer] Other Start: 12-27-2021 End: 12-27-[address] RUBEN LUO . Facility:[facility] Start: 12-14-2021 End: 12-14-2021 ambulatory Oma Donato Other [employer] Other Start: 12-14-2021 Office outpatient vi sit 25 minutes Oma Donato [facility] Start: 12-09-2021 End: 12-10-2021 ambulatory OMA DONATO Facility:[facility] Start: 10-13-2021 End: 10-14-[address] RUBEN LUO . Facility:[facility] Start: 10-07-2021 End: 10-08-[address] RUBEN LUO . Facility:[facility] Start: 09-21-2021 End: 09-21-2021 ambulatory Oma Donato Other [employer] Other Start: 09-21-2021 Office outpatient vi sit 25 minutes Oma Donato [facility] Start: 09-15-2021 End: 09-16-[address] RUBEN LUO . Facility:[facility] Start: 09-01-2021 End: 09-02-[address] RUBEN LUO . Facility:[facility] Start: 08-14-2021 End: 08-14-2021 ambulatory Oma Donato Other [employer] Other Start: 08-14-2021 Office outpatient ne w 45 minutes Oma Donato [facility] Start: 08-10-2021 End: 08-10-2021 ambulatory Ney Roman Other [employer] Other Start: 08-10-2021 Office outpatient vi sit 15 minutes Ney Roman [facility] Start: 04-22-2019 End: 04-22-2019 Subsequent hospital visit by physician Ruben Luo MD Other Phone: [facility] Laboratory Comment on above: Enlarged prostate; BPH with obstruction/lower urinary tract symptoms; Abnormal digital rectal exam; Erectile dysfunction, unspecified erectile dysfunction type Start: 09-12-2018 End: 09-13-2018 Patient encounter procedure PROVIDER UNKNOWN Facility:[facility] Start: 01-17-2018 End: 01-18-2018 Patient encounter procedure GABY ORTIZ Facility:[facility] Procedures Date Procedure Procedure Detail Performing Clinician [...] Radex spine lumbosac ral 2/3 views Sharon Ellison PA-C Work Phone: Start: 07-25-2022 Gluc bld gluc mntr d ev cleared fda spec home use Sharon Ellison PA-C Work Phone: Start: 07-25-2022 Gluc bld gluc mntr d ev cleared fda spec home use Sharon Ellison PA-C Work Phone: Start: 07-25-2022 Anion gap [Moles/Vol] Jeremi tameka Ellison PA-C Work Phone: Start: 07-25-2022 Basic metabolic pane l calcium total Sharon Ellison PA-C Work Phone: Start: 07-25-2022 GLOMERULAR FILTRATIO N [...] Sharon Ellison PA-C Work Phone: Start: 07-24-2022 Potassium serum plas ma/whole blood Kylie Acuna MD Work Phone: Start: 07-24-2022 Gluc bld gluc mntr d ev cleared fda spec home use Sharon Ellison PA-C Work Phone: Start: 07-24-2022 Gluc bld gluc mntr d ev cleared fda spec home use Sharon Ellison ALKA-C Work Phone: Start: 07-24-2022 Anion gap [Moles/Vol] S tameka Ellison PA-C Work Phone: Start: 07-24-2022 Basic metabolic pane l calcium total Sharon Ellison PA-C Work Phone: Start: 07-24-2022 GLOMERULAR FILTRATIO N RATE, ESTIMATED Sharon Ellison PA-C Work Phone: Start: 07-23-2022 Gluc bld gluc mntr d ev cleared fda spec home use Sharon Ellison PA-C Work Phone: Start: 07-23-2022 Dup-scan xtr veins c omplete bilateral study Kylie Acuna MD Work Phone: Start: 07-23-2022 Ct head/brain w/o co ntrast material Dave Ham MD Work Phone: Start: 07-23-2022 Gluc bld gluc mntr d ev cleared fda spec home use Sharon Terra RUCKER-C Work Phone: Start: 07-23-2022 Gluc bld gluc mntr d ev cleared fda spec home use Sharon Terra RUCKER-C Work Phone: Start: 07-23-2022 Anion gap [Moles/Vol] S tameka Ellison PA-C Work Phone: Start: 07-23-2022 End: 07-23-2022 Basic metabolic panel calcium total Sharon Ellison ALKA-C Work Phone: Start: 07-23-2022 GLOMERULAR FILTRATIO N RATE, ESTIMATED Sharon Terra PA-C Work Phone: Start: 07-23-2022 Gas panel - [...] Start: 07-22-2022 Anion gap [Moles/Vol] S tameka RUCKER-C Work Phone: Start: 07-22-2022 Basic metabolic pane l calcium total Sharon RUCKER-Sánchez Work Phone: Start: 07-22-2022 GLOMERULAR FILTRATIO N [...] total Sharon Ellison PA-C Work Phone: Start: 07-21-2022 GLOMERULAR FILTRATIO N RATE, ESTIMATED Sharon Ellison PA-C Work Phone: Start: 07-20-2022 Gluc bld gluc mntr d ev cleared fda spec home use Sharon Ellison PA-C Work Phone: Start: 07-20-2022 Gluc bld gluc mntr d ev cleared fda spec home use Sharon Ellison PA-C Work Phone: Start: 07-20-2022 Fluoroscopy during operation Gabe Hraris MD Work Phone: Start: 07-20-2022 Radex spine [...] Work Phone: Comment on above: Performed at [facility] [address] [place] [address] Start: 07-19-2022 Anion gap [Moles/Vol] S tameka [...] lum bar w/o contrast material Osiel Elaine [employer]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 Phone: Start: 04-16-2022 Colonoscopy MD Ruben Luo Work Phone: Start: 04-12-2022 SARS Antigen (LFIA) MD Ruben Luo Work Phone: Start: 04-22-2019 Urnls dip stick/tabl et reagent auto microscopy Ralph Mccurdy MD Work Phone: Start: 01-17-2018 CORONARY ARTERY ANGIO S\T\I VADIM VERONICA Laboratory test resu lt abnormal Ney Roman Other Plan of Treatment Date Care Activity Detail Author Start: 07-27-2023 GFR test (Diabetes, CKD 3-4, OR last GFR 15-59) GFR test (Diabetes, CKD 3-4, OR last GFR 15-59) [employer] Start: 07-21-2023 Hemoglobin A1c measurement A1C test (Diabetic or Prediabetic) [employer] Start: 07-20-2022 End: 07-20-2022 Admission to same day surgery center 07/20/2022 Surgery IP Unit Gabe Harris MD [address] [place] [address] L2-S1 REVISION DECOMPRESSION WITH L2-PELVIS FUSION STRZ [...] Gabe Harris MD [address] [place] [address] STRZ OR Start: 04-16-2022 [facility] Start: 04-22-2019 Annual Wellness Visi t (AWV) Annual Wellness Visit (AWV) [facility] [employer] Start: 12-07-2018 Influenza vaccination Flu vaccine (# 1) [employer] Phone: Start: 04-04-2016 Creatinine monitoring Creatinine mon itoring [employer] Phone: Start: 04-04-2016 Potassium monitoring Potassium monit oring [employer] Phone: Start: 2014 Abdominal aortic aneurysm screening AAA screen [employer] Start: 2014 Pneumococcal 65+ yea rs Vaccine (1 of 1 - PPSV23) Pneumococcal 65+ years Vaccine (1 of 1 - PPSV23) [employer] Phone: Start: 07-06-1999 Colon cancer screen colonoscopy Colon cancer screen colonoscopy [employer] Phone: Start: 07-06-1999 Shingles Vaccine (1 of 2) Shingles Vaccine (1 of 2) [employer] Start: 1994 Screening for malign ant neoplasm of colon [facility] [employer] Start: 1989 Lipid panel Lipids [facility] [employer] Start: 1989 Lipid screen Lipid screen [employer] Work Phone: Start: 1968 DTaP/Tdap/Td vaccine (1 - Tdap) DTaP/Tdap/Td vaccine (1 - Tdap) [facility] [employer] Start: 07-06-1967 Glaucoma screening Diabetic retinal exam [facility] [employer] Start: 07-06-1967 Hepatitis C screening Hepatitis C sc reen [facility] [employer] Start: 07-06-1967 Urine screening for protein Diabetic Alb to Cr ratio (uACR) test [facility] [employer] Start: 1961 Depression Screen Depression Screen [facility] [employer] Start: 1960 DTaP/Tdap/Td vaccine (1 - Tdap) DTaP/Tdap/Td vaccine (1 - Tdap) [employer] Phone: Start: 07-06-1959 Diabetic foot examination Diabetic foot exam [facility] [employer] Start: 07-06-1959 Lipid panel Lipids [facility] [facility] Start: 1950 AAA screen AAA screen [employer] Work Phone: Start: 1950 Hepatitis C screen Hepatitis C scree n [employer] Phone: End: 04-22-2019 Bacteria identified in Urine by Culture Urine Culture Microbiology Routine 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 Abnormal digital rectal exam Erectile dysfunction, unspecified erectile dysfunction type 1 Occurrences starting 04/22/2019 until 04/22/2019 [employer] Phone: Comment on above: 1 Occurrences starti ng 04/22/2019 until 04/22/2019 Bacteria identified in Urine by Culture Urine Culture Microbiology Routine 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 Abnormal digital rectal exam Erectile dysfunction, unspecified erectile dysfunction type 04/22/2019 6:56 PM [employer] Phone: End: 05-30-2022 CT LUMBAR SPINE WO CONTRAST [employer] Phone: Comment on above: 1 Occurrences starti ng 05/30/2022 until 05/30/2022 End: 05-30-2022 CT THORACIC SPINE WO CONTRAST [employer] Phone: Comment on above: 1 Occurrences starti ng 05/30/2022 until 05/30/2022 Glucose [Mass/volume ] in Serum or Plasma [employer] Phone: Comment on above: 4X Daily (AC & HS) u ntil discontinued starting 07/19/2022, 29 completed As Needed until disc ontinued starting 07/19/2022 End: 07-20-2022 Hemoglobin and Hematocrit Hemoglobin and Hematocrit Lab Routine Post Transfusion Post Transfusion Post Transfustion until discontinued starting 07/19/2022 [employer] Phone: Comment on above: Post Transfusion Pos t Transfusion Post Transfustion until discontinued starting 07/19/2022 Initiate RT Inhaler-Nebulizer Bronchodilator Protocol Initiate RT Inhaler-Nebulizer Bronchodilator Protocol Respiratory Care Routine As Needed until discontinued starting 07/21/2022 [employer] Phone: Comment on above: As Needed until disc ontinued starting 07/21/2022 Oxygen therapy [[facility] Data Set] Initiate Oxygen Therapy Protocol Respiratory Care Routine As Needed until discontinued starting 07/20/2022 [employer] Phone: Comment on above: As Needed until disc ontinued starting 07/20/2022 Patient Education Colon Polypectomy (DC) [facility] Work Phone: Spirometry panel Incentive erma metry Respiratory Care Routine Every 2hr while awake until discontinued starting 07/20/2022 [employer] Phone: Comment on above: Every 2hr while awak e until discontinued starting 07/20/2022 Immunizations Immunization Date Immunization Notes Care Provider Cornelia mendoza 01-19-2017 influenza, high dose seasonal, preservative-free Ney Roman Other [employer] Other 04-06-2014 influenza, high dose seasonal, preservative-free Ney Roman Other [employer] Other 04-06-2014 influenza, injectable, quadrivalent, preservative free Oma Donato Other [employer] Other Payers Date Payer Category Payer Self-pay [id number] 2019 Unknown [employer] M [employer] [address] xxxxxxxxxxxx 2019-Present [phone] [address] [place] [address] xxxxxxxxxxxx [id number] [id number] 2019 Unknown 2014 Medicare MEDICARE MEDICAR E PART A AND B xxxxxxxxxxx 2014-Present [phone] [address] [address] [place] [address] xxxxxxxxxxx [id number] .[id number] 2014 Medicare 1959 Medicare [id number] 1959 Unknown [id number] 2.16.840.1.540358.19 1949 Unknown [id number] 2.16.840.1.738916.3.579.2.647 1949 Unknown [id number] 2.16.840.1.697117.3.579.2.647 1949 Unknown [id number] 2.16.840.1.562838.3.579.2.93 1949 Unknown [id number] 2.16.840.1.594821.3.579.2.93 1949 Unknown [id number] 2.16.840.1.306453.3.579.2.593 1949 Unknown [id number] 2.16.840.1.243824.3.579.2.593 1949 Unknown [id number] 2.16.840.1.000127.3.579.2.593 1949 Unknown [id number] 2.16.840.1.891535.3.579.2.593 1949 Unknown [id number] 2.16.840.1.473202.3.579.2.593 1949 Unknown [id number] 2.16.840.1.637040.3.579.2.593 1949 Unknown [id number] 2.16.840.1.579270.3.579.2.593 1949 Unknown [id number] 2.16.840.1.386213.3.579.2.593 1949 Unknown [id number] 2.16.840.1.691505.3.579.2.593 1949 Unknown [id number] 2.16.840.1.930532.3.579.2.593 1949 Unknown [id number] 2.16.840.1.583237.3.579.2.593 1949 Unknown [id number] 2.16.840.1.289420.3.579.2.593 1949 Unknown [id number] 2.16.840.1.363656.3.579.2.593 1949 Unknown [id number] 2.16.840.1.323331.3.579.2.593 1949 Unknown [id number] 2.16.840.1.481170.3.579.2.593 1949 Unknown [id number] 2.16.840.1.817611.3.579.2.173 1949 Unknown [id number] 2.16.840.1.859333.3.579.2.173 1949 Unknown [id number] 2.16.840.1.557827.3.579.2.173 1949 Unknown [id number] 2.16.840.1.730953.3.579.2.173 1949 Unknown [id number] 2.16.840.1.147088.3.579.2.173 1949 Unknown [id number] 2.16.840.1.189104.3.579.2.173 1949 Unknown [id number] 2.16.840.1.025329.3.579.2.173 1949 Unknown [id number] 2.16.840.1.202030.3.579.2.173 1949 Unknown [id number] 2.16.840.1.061901.3.579.2.173 1949 Unknown [id number] 2.16.840.1.669176.3.579.2.173 1949 Unknown [id number] 2.16.840.1.262721.3.579.2.196 1949 Unknown [id number] 2.16.840.1.920258.3.579.2.196 1949 Unknown [id number] 2.16.840.1.532044.3.579.2.196 1949 Unknown [id number] 2.16.840.1.605501.3.579.2.125 9 Medicare [id number] Unknown [id number] Unknown [facility] [id number] Unknown [id number] 2.16.840.1.007584.3.579.2.531 Unknown [id number] 2.16.840.1.601557.3.579.2.531 Unknown [id number] 2.16.840.1.319468.3.579.2.531 Social History Date Type Detail Facility Start: 04-22-2019 End: 04-16-2022 Tobacco smoking status NHIS Former smoker [facility] End: 10-08-1996 History of tobacco use Current smoker [facility] End: 10-08-1996 History of tobacco use Cigarette Smoker [facility] Start: 04-22-2019 End: 07-11-2022 Cigarettes smoked current (pack per day) - Reported [employer] Work Phone: Start: 04-22-2019 End: 07-24-2022 Alcohol intake Current drinker of alcohol (finding) [employer] Work Phone: Start: 10-08-2013 Alcohol Comment rare [employer] Work Phone: Start: 1950 Sex Assigned At Not on file M [employer] Work Phone: Sex Assigned At Sex Assigned At [facility] [employer] Other Start: 1950 Sex Assigned At Male F [facility] Start: 10-29-2013 End: 07-11-2022 Tobacco use and exposure Smokeless tobacco non-user [employer] Work Phone: Start: 07-09-2022 End: 07-19-2022 Exposure to SARS-CoV-2 (event) Not sure [employer] Medical Equipment Procedure Code Equipment Code Equipment Origin al Text Equipment Identifier Dates Test Strips Start: 09-06-2017 Roel Spnl Contour ed 5.5x150 Mm Lumbar Ti Trang - [id number] Start: 07-20-2022 Goals Date Patient Goal Desired Activity /State Clinical Notes 12-13-2015 to 12-19-2023 Note Date & Type Note Facility 03-26-2023 [...] the renal magnesium wasting. Continue oral magnesium [employer] Other 12-13-2023 Evaluation note* Encounter Date Diagnosis [...] Mar, S/P carotid endarterectomy (ICD-10 - Z98.890) [employer] Other 11-20-2023 Evaluation note* Encounter Date Diagnosis Assessment Notes Treatment Notes Treatment Clinical Notes Feb, Anemia of renal disease (ICD-10 - D63.1) Feb, CKD (chronic kidney disease) stage 4, GFR 15-29 ml/min (ICD-10 - N18.4) [employer] Other 11-15-2023 NoteUT Cardiology - [facility] Subjective Omer Santos is a 72 y.o. year old male patient being seen for Follow-up (6 months) Patient Active Problem List Diagnosis Coronary artery disease involving cher-ae heights coronary artery of cher-ae heights heart without angina pectoris Status post coronary artery stent placement Essential hypertension Carotid artery stenosis, asymptomatic, right History of myocardial infarction Stage 3b chronic kidney disease (CMS/HCC) Type 2 diabetes mellitus ([facility]/HCC) Stented coronary artery Spinal stenosis Sensorineural hearing [...] a 72-year-old man, who was admitted with zqc-KK-dzhjnae elevation myocardial infarction in january 2018. He [...] to take Viagra. He was admitted to [facility] in 06/2020 with renal dysfunction and [...] rales. Chest: Chest wal (more content not included)...[facility] 02-11-2023 Evaluation note* Encounter Date Diagnosis Assessment Notes Treatment Notes Treatment Clinical Notes Feb, Anemia of renal disease (ICD-10 - D63.1) [employer] Other 10-30-2023 NoteDischarge Summary Date of Admission: [...] Home Gabe Harris MD Electronically signed by Kimberly TURPIN, Gabe 02/04/23 05:55 [facility] 02-01-2023 NoteC-spine radiographs on 02/01/2023 Clinical [...] Is Signed, Electronically Signed in Other Vendor System)[facility]:Order Comment: [id number] sent for at 0632hrs 02-01-2023 NoteDATE OF [...] 3. C3 through C6 anterior cervical plate, [place] with 16-mm fixed angle and variable screws, Strykerinstrumentation SURGEON: Gabe Harris M.D. PIECE MARKER SMALL ARMS: Lizette Osorio PA-C. Lizette Osorio PA-C, assisted [...] permanent speech and swallowing disturbances, DVT/PE, stroke, [place], etc. All questions were answered and informed [...] with a high-speed jodi going back to (more content not included)...[facility] Evaluation note* Encounter Date Diagnosis Assessment [...] the renal magnesium wasting. Continue oral magnesium [employer] Other 10-12-2023 Evaluation note* Encounter Date Diagnosis [...] the renal magnesium wasting. Continue oral magnesium [employer] Other 08-31-2023 Evaluation note* Encounter Date Diagnosis [...] the renal magnesium wasting. Continue oral magnesium [employer] Other 08-10-2023 Evaluation note* Encounter Date Diagnosis [...] the renal magnesium wasting. Continue oral magnesium [employer] Other 07-20-2023 Evaluation note* Encounter Date Diagnosis [...] the renal magnesium wasting. Continue oral magnesium [employer] Other 06-05-2023 Evaluation note* Encounter Date Diagnosis [...] the renal magnesium wasting. Continue oral magnesium [employer] Other 05-09-2023 Evaluation note* Encounter Date Diagnosis [...] continue same supplement improve we will supplement [employer] Other 04-20-2023 NotePROCEDURE: VL DUP LOWER EXTREMITY [...] by: Jose R Bianchi MD 07/26/22 [facility] NotePROCEDURE: VL DUP LOWER EXTREMITY VENOUS [...] normal color flow, augmentation and phasic response. [id number] History of Present illness Narrative* Megan Meza - 07/26/2022 4:37 PM EDT Hubert as he likes to be called is to a Druze . She and he appreciate prayer and [...] Patient and family together Referral/Consult From: [facility] Support System Spouse Last Encounter 07/26/22 Complexity [...] PM VL DUP LOWER EXTREMITY VENOUS BILATERAL [[id number]] Resulted: 07/23/22 171 Updated: 07/23/22 172 Narrative: FINDINGS: There is normal color flow, spectral analysis and compressibility of the common femoral vein, superficial femoral vein and popliteal vein bilaterally . There is normal color flow and compressibility in the posterior tibial veins, anterior tibial veinsand peroneal veins. Impression: No evidence of a DVT. CT HEAD WO CONTRAST [[id number]] Resulted: 07/23/22 1323 Updated: 07/23/22 1326 Narrative: [...] DIANN Leblanc - 07/26/2022 8:38 AM EDT [facility] OCCUPATIONAL THERAPY MISSED TREATMENT NOTE STR ONC MED 5K 5K-26/026-A Date: 07/26/2022 Patient Name: Omer Santos CSN: [id number] : 1950 (72 y.o.) Gender: male Referring [...] Recent Labs 07/23/22 0741 07/24/22 0436 07/25/22 043 WBC 6.7 4.6* 3.9* HGB 7.6* 7.4* 7.6* PLT 128* 132 148 BMP: Recent Labs 07/23/22 0741 07/24/22 0436 07/24/22 1444 07/25/22 043 NA 141 137 -- 135 K 4.8 [...] PM VL DUP LOWER EXTREMITY VENOUS BILATERAL [[id number]] Resulted: 07/23/22 1719 Updated: 07/23/22 1721 Narrative: FINDINGS: There is normal color flow, spectral analysis and compressibility of the common femoral vein, superficial femoral vein and popliteal vein bilaterally . There is normal color flow and compressibility in the posterior tibial veins, anterior tibial veinsand peroneal veins. Impression: No evidence of a DVT. CT HEAD WO CONTRAST [[id number]] Resulted: 07/23/22 1323 Updated: 07/23/22 1326 Narrative: [...] EDT Physician Progress Note PATIENT: OMER SANTOS CSN #: [id number] : 1950 ADMIT DATE: 07/19/2022 9:24 AM [...] IVF, limit narcotics/sedatives Thank you! Greg Merino, BSN,RN, CRCR RN Clinical Naturopathic Physician Options provided: -- Drug-induced encephalopathy -- Toxic [...] 07/25/2022 10:37 AM EDT [facility] INPATIENT PHYSICAL THERAPY DAILY NOTE STRZ ONC MED 5K - 5K-26/026-A Time In: [...] Ambulation Assistance: Independent Transfer Assistance: Independent Active Registered Dietician: Yes Additional Comments: Information provided by due [...] steps without HR CGA for home entry. Gas Collection System Operator Goals Time Frame for Alf Goals : NA due to short length of stay. Following session, patient left in safe position with all fall risk precautions in place. * DIANN Zavala - 07/25/2022 9:58 AM EDT [facility] OCCUPATIONAL THERAPY MISSED TREATMENT NOTE STRZ ONC MED 5K 5K-26/026-A Date: 07/25/2022 Patient Name: Omer Santos CSN: [id number] : 1950 (72 y.o.) Gender: male Referring [...] 07/24/2022 2:59 PM EDT [facility] INPATIENT PHYSICAL THERAPY DAILY NOTE STRAbiel ONC MED 5K - 5K-26/026-A Time In: [...] Ambulation Assistance: Independent Transfer Assistance: Independent Active Registered Dietician: Yes Additional Comments: Information provided by due [...] Walker Gait Deviations: Forward Flexed Posture, Slow Esther, Decreased Step Length Bilaterally, DecreasedWeight Shift Bilaterally, [...] steps without HR CGA for home entry. Gas Collection System Operator Goals Time Frame for Alf Goals : NA due to short length of stay. Following session, patient left in safe position with all fall risk precautions in place. * Tracy Cintron DIANN - 07/24/2022 10:36 AM EDT [facility] 5 Occupational Therapy Daily Note Time: Time In: 956 Time Out: 6 Timed Code Treatment Minutes: 39 Minutes Minutes: 39 Date: 07/24/2022 Patient Name: Omer Santos, Gender: male Room: [address] [place] [address] : 1950 (72 y.o.) Referring Practitioner: Sharon [...] Prior L2-S1 decompression by Dr Shanks in [place] in 2011. Patient is a nonsmoker. H/o [...] of treatment: Fair treatment tolerance Discharge Recommendations: Subacute/nursing home facility, 24 hour assistance or supervision, and [...] chloride dextrose Lab Results: CBC: Recent Labs 07/22/22184607/23/22 0741 07/24/22 0436 WBC 8.0 6.7 4.6* HGB 8.1* 7.6* 7.4* PLT 157 128* 132 BMP: Recent Labs 07/22/22184607/23/22 0741 07/24/22 0436 NA 139 141 137 [...] PM VL DUP LOWER EXTREMITY VENOUS BILATERAL [[id number]] Resulted: 07/23/22 1719 Updated: 07/23/22 1721 Narrative: FINDINGS: There is normal color flow, spectral analysis and compressibility of the common femoral vein, superficial femoral vein and popliteal vein bilaterally . There is normal color flow and compressibility in the posterior tibial veins, anterior tibial veinsand peroneal veins. Impression: No evidence of a DVT. CT HEAD WO CONTRAST [[id number]] Resulted: 07/23/22 1323 Updated: 07/23/22 1326 Narrative: [...] Lab Results: CBC: Recent Labs 07/22/22 0506 07/22/22184607/23/22 0741 WBC 7.2 8.0 6.7 HGB 8.0* 8.1* 7.6* PLT 137 157 128* BMP: Recent Labs 07/22/22 0506 07/22/22184607/23/22 0741 NA 139 139 141 K 4.5 [...] PM VL DUP LOWER EXTREMITY VENOUS BILATERAL [[id number]] Resulted: 07/23/22 171 Updated: 07/23/221720 Narrative: FINDINGS: There is normal color flow, spectral analysis and compressibility of the common femoral vein, superficial femoral vein and popliteal vein bilaterally . There is normal color flow and compressibility in the posterior tibial veins, anterior tibial veinsand peroneal veins. Impression: No evidence of a DVT. CT HEAD WO CONTRAST [[id number]] Resulted: 07/23/22 1323 Updated: 07/23/22 132 Narrative: There is no [...] patient tr ansported to CT. * Lani Preciado, OT - 07/23/2022 2:18 PM EDT [facility] INPATIENT OCCUPATIONAL THERAPY STRZ ONC MED 5K EVALUATION Time: Time In: [...] Prior L2-S1 decompression by Dr Shanks in [place] in 2011. Patient is a nonsmoker. 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 VISION:WFL HEARING: WFL COGNITION: Decreased Recall, Decreased Insight, Decreased Safety Awareness, Impaired Attention, Difficulty Following Commands, Impulsive, and argumentative with encouragement, restless RANGE OF MOTION: Bilateral Upper Extremity: WFL STRENGTH: Bilateral Upper Extremity: elbow flex 4/5 ext 4-/5 orthopaedic surgeon (F-) SENSATION: WFL ADL: No ADL's completed [...] would benefit from continued therapy after discharge, Subacute/Intermediate Facility, Gas Collection System Operator Care with OT, 24 hour supervision or [...] Pt is a 72y.o. male, in . Die Cleaner was called to room due to a Rapid Response-Stroke Related alert; pt Caridad was also in the room. Die Cleaner provided brief prayer for Hubert prior to going toCT, presence, prayer and griefcare for Caridad as she waited for him to return. Caridad shared several personal/familial losses experienced between she and Hubert over the past few years, and has led tobeing leery while in a hospital setting-causing extra layer of stress and worry for them. Die Cleaner prayed for Caridad as well as she mauro with all this-met with gratitude by Caridad. 07/23/22 1410 Encounter Summary Encounter Overview/Reason Crisis Service Provided For: Patient and family together Referral/Consult From: Nursing Waste Machine Tender/Fork Lift Technician System Spouse Last Encounter 07/23/22 Complexity of Encounter High Begin Time 1245 End Time 1327 Total Time Calculated 42 min Crisis Type Rapid Response Assessment/Intervention/Outcome Assessment Compromised coping;Concerns with suffering;Impaired resilience;Impaired social interaction;Shock;Tearful Intervention Active listening;Sustaining Presence/Ministry of presence;Prayer (assurance of)/[place];Nurtured Hope;Explored/Affirmed feelings, thoughts, concerns;Discussed illness injury and it s impact;Discussed relationship with God Outcome Receptive;Expressed Gratitude;Expressed feelings, needs, and concerns;Engaged in conversation;Coping * Gaby León RPH - 07/23/2022 2:05 PM EDT Code Stroke [...] 07/23/2022 10:36 AM EDT 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 Functional Outcome Measures: Completed AM-[facility] Inpatient Mobility without Stair Climbing Raw Score : 6 AM-[facility] Inpatient without Stair Climbing T-Scale Score : [...] decrease fall risk and return pt to [facility]. Therapy Prognosis: Good Requires PT Follow-Up: Yes [...] Term Goal 2: PT to assess mobility. Gas Collection System Operator Goals Time Frame for Alf Goals : NA due to short length [...] sedatives SCD Kylie Acuna MD, MD * Sharon Ellison PA-C - 07/22/2022 8:26 AM EDT Department of [...] cardura am labs. SCD Kylie Acuna MD, MD * Sharon Ellison PA-C - 07/20/2022 4:10 [...] ml Net 947 ml URINARY CATHETER OUTPUT (Hernnadez): DRAIN/TUBE OUTPUT: PHYSICAL EXAM: Orientation: alert and [...] in place, pt bp soft, medicated per rug touch up painter, o2 sats low, pt unresponsive post anesthesia 1525 - pt still unresponsive post anesthesia, rug touch up painter at bedside 1540 - pt still unresponsive, [...] assessing patient 1715 - report called to Herman RN 1720 - pt meets criteria for discharge from pacu at this time 1727 - pt transported to [facility] in stable condition * Darcy Cheney RN [...] procedure Temp: 97.[address] [facility] [employer] Work Phone: 1(575) 398-480504-19-2023 NotePROCEDURE: XR LUMBAR SPINE (2-3 VIEWS) CLINICAL [...] Signed by: Lalo Polanco DO 07/25/22 Final resultSHouston [facility]04-19-2023 NotePROCEDURE: XR LUMBAR SPINE (2-3 VIEWS) [...] lumbar spine, stable compared to prior exam. [facility] [id number] NotePROCEDURE: VL DUP LOWER EXTREMITY VENOUS BILATERAL [...] Signed by: Héctor Mcdonnell MD 07/23/22 Final resultSHouston [facility]04-17-2023 NotePROCEDURE: VL DUP LOWER EXTREMITY VENOUS [...] tibial veins, anterior tibial veinsand peroneal veins. [facility] [id number] NotePROCEDURE: CT HEAD WO CONTRAST CLINICAL INFORMATION: [...] Final report electronically signed by Dr. Gissel Esocbedo on 07/23/2022 1:23 PM Interpreted by: Gissel Escobedo MD Signed by: Gissel Escobedo MD 07/23/22 Final resultSaint [facility]04-17-2023 NotePROCEDURE: CT HEAD WO CONTRAST CLINICAL [...] sinuses. There is no suspicious calvarial abnormality. [id number] NotePROCEDURE: XR LUMBAR SPINE 1 VW CLINICAL INFORMATION: surgery . TECHNIQUE: Crosstable lateral portable done in the OR COMPARISON: No prior study. FINDINGS: Personnel Placement Specialist localizer overlies the pedicle of L2. IMPRESSION: Localizer at L2. This report has been created using voice recognition software. It may contain minor errors which are inherent in voice recognition technology. Final report electronically signed by Dr. Simba Castle on 07/20/2022 12:20 PM Interpreted by: Simba Castle MD Signed by: Simba Castle MD 07/20/22 Final resultSaint [facility]water [facility] Hospital04-14-2023 NotePROCEDURE: XR LUMBAR SPINE 1 VW CLINICAL INFORMATION: surgery . TECHNIQUE: Crosstable lateral portable done in the OR COMPARISON: No prior study. FINDINGS: Personnel Placement Specialist localizer overlies the pedicle of L2. [id number] NoteBobbmarine is here for a 6 month follow up with no cardiac concerns. He is having surgery on his lower back on July 20. His , Caridad, states that PCP cleared him for surgery after reviewing recent stress test. Review of Systems Cardiovascular: Positive for dyspnea on exertion. States he's Having trouble walking. Skin: Positive for suspicious lesions. Concerned about spots on both forearms.[facility] 07-18-2022 NoteCardiovascular Medicine [facility] SUBJECTIVE Chief Complaint Patient presents with Follow-up [...] asthma. Follows up with vascular surgery in [place] for carotid artery stenosis status post endarterectomy of right carotid. HPI Last HPI per Dr. Veronica: Omer Santos is seen in follow up. He is a 71-year-old man, who was admitted with jfy-PU-mdpslne elevation myocardial infarction in january 2018. He [...] to take Viagra. He was admitted to [facility] in 06/2020 with renal dysfunction and [...] [address] Юлия Savage out of [place]. He denies any complaints today including no CP, dyspnea, orthopnea, PND, LE edema, dizziness/LH, palpitations, syncope. He c/o lower back pain which limits his mobility and muscle loss from lack of mobility with his LLE. BP at pot tender office yesterday was 120s/80s. BP during stress test last week was 208/88, BP in office today 156/62 and recheck was 172/64. He has not been routinely checking his BP at home. He c/o ecchymotic lesions to his JESSICA extremities. His Caridad accompanied him today. Patient Active Problem List Diagnosis Coronary artery disease involving cher-ae [place] coronary artery of cher[place]ae [place] heart without angina pectoris Status post coronary artery stent placement Essential hypertension Carotid artery stenosis, asymptomatic, right History of myocardial infarction Stage 3b chronic kidney disease ([facility]) Type 2 diabetes mellitus ([facility]) Stented coronary artery Spinal stenosis Sensorineural hearing [...] rhinitis Acute non-ST segment elevation myocardial infarction ([facility]) Acquired spondylolisthesis Abnormal digital rectal exam Acute [...] Inhibitors Unknown Other re (more content not included)...[facility] 07-17-2022 Evaluation note* Encounter Date Diagnosis [...] to the risk of a cardiac arrhythmias. [employer] Other 03-16-2023 Evaluation note* Encounter Date Diagnosis [...] let me know if he changes mind. [employer] Other 02-02-2023 Evaluation note* Encounter Date Diagnosis Assessment Notes Treatment Notes Treatment Clinical Notes May, Anemia of renal disease (ICD-10 - D63.1) May, Chronic kidney disease, stage 3b (ICD-10 - N18.32) [employer] Other 01-30-2023 Evaluation note* Encounter Date Diagnosis [...] let me know if he changes mind. [employer] [facility] Encounter Date Diagnosis Assessment Notes Treatment Notes Treatment Clinical Notes Jan, History of colon polyps (ICD-10 - Z86.010) [place] [employer] Other 09-08-2022 Evaluation note* Encounter Date Diagnosis [...] let me know if he changes mind. [employer] Other 06-16-2022 Evaluation note* Encounter Date Diagnosis [...] these d differential diagnoses. Continue home losartan. [employer] Other 05-09-2022 Evaluation note* Encounter Date Diagnosis [...] We will check PTH and vitamin D. [employer] Other 05-05-2022 Evaluation note* Encounter Date Diagnosis [...] for several more years in my opinion. [employer] Other 09-06-2016 Evaluation note* Encounter Date Diagnosis [...] meantime with any issues or concerns whatsoever. [employer] Other Evaluation note* Diagnosis Enlarged prostate Hypertrophy of prostate without urinary obstruction and other lower urinary tract symptoms (LUTS) BPH with obstruction/lower urinary tract symptoms Hypertrophy of prostate with urinary obstruction and other lower urinary tract symptoms (LUTS) Abnormal digital rectal exam Other abnormal clinical finding Erectile dysfunction, unspecified erectile dysfunction type documented in this encounter [employer] Phone: evaluation noteNo assessment information available [facility] Work Phone: Evaluation note* Diagnosis Spondylosis of lumbosacral region without myelopathy or radiculopathy Lumbosacral spondylosis without myelopathy Lumbar spondylosis Lumbosacral spondylosis without myelopathy Postlaminectomy syndrome, lumbar Postlaminectomy syndrome, lumbar region Spinal stenosis of lumbar region with neurogenic claudication Spinal stenosis, lumbar region, with neurogenic claudication documented in this encounter [employer] Phone: evalfuiooe note* Diagnosis Osteopenia of lumbar spine documented in this encounter [employer] Phone: evalmtyipy note* Diagnosis Spinal stenosis, lumbar region, without neurogenic claudication Right foot drop Other acquired deformity of ankle and foot documented in this encounter [employer] Phone: evalmnznza noteNo [place] [employer] Other Evaluation note* Diagnosis Examination for normal comparison for clinical research Examination of participant in clinical trial Lumbar spondylosis Lumbosacral spondylosis without myelopathy Spinal stenosis, unspecified spinal region Spondylolisthesis, unspecified spinal region documented in this encounter [employer] Phone: evaluation note* Diagnosis Lumbar spondylosis- Primary [...] Acute posthemorrhagic anemia documented in this encounter [employer] Phone: History and physical note Author [facility] April 16, 2022 9:33am Note Date/Time April 16, 2022 9: 33am [facility] [address] [place] [address] Gastroenterology H&P Signed Patient: Omer Santos MR#: [id number] : 1950 Acct:[id number] Age/Sex: 71 / M Adm Date: 3 Loc: Room: Type: [facility] Attending Dr: Orlando Beaver MD Copies to: [...] <Electronically signed by Orlando Beaver MD> 04/16/22932 [facility] Work Phone: Hiskrmy general Narrative - Reported* Type Description Date [...] Extracranial repair 01/02/2016 Surgical History Heart Cath/stent [facility] 01/2018 Surgical History heart cath 09/12/2018 Hospitalization History see surgical hx Hospitalization History ER- Acute Bronchitis 07/08 08/22 Hospitalization History [facility] Cardiac Issues 2017 [employer] Other history general Narrative - Reported* Type Description Date [...] Extracranial repair 01/02/2016 Surgical History Heart Cath/stent [facility] 01/2018 Surgical History heart cath 09/12/2018 Hospitalization History see surgical hx Hospitalization History ER- Acute Bronchitis 07/08 08/22 Hospitalization History [facility] Cardiac Issues 2017 [employer] Other history general Narrative - Reported* Type Description Date [...] Extracranial repair 01/02/2016 Surgical History Heart Cath/stent [facility] 01/2018 Surgical History heart cath 09/12/2018 Surgical History CERVICAL FUSION X3 01/31/2023 Hospitalization History see surgical hx Hospitalization History ER- Acute Bronchitis 07/08 08/22 Hospitalization History [facility] Cardiac Issues 2017 [employer] Other Hospital Discharge instructions Additional Instructions DISCHARGE [...] -Follow up with PCP. - Office number [phone].[facility] Work Phone: Summary Purpose Family History No Family History Records Found Relationship Condition Age at Onset Recorded Date/T juan sister Malignant neoplasm of breast Unknown daughter Malignant neoplasm of ovary Unknown Advance Directives No Advanced Directives Records FoundDocuments on File Type Date Recorded Patient Floor Layer Helper Expl anation Advance Directives and Living Will Power of Food Tester Advance Directive Response Recorded Date/ Time Advance Directives No May 13, 2017 1:30pm Documents on File Type Date Recorded Patient Floor Layer Helper Expl anation ACP-Advance Directive 07/24/2022 8:33 AM Latest Code Status on File Code Status Date Activated Date Inactivated Comments Full Code 07/19/2022 11:45 AM Hospital Course Note MR#: [id number] 2 [facility] Pt. Name: Omer Santos Admitted: 01/17/2018 Discharged: 01/18/2018 Date of : 1950 Physician: Gaby Ortiz MD DISCHARGE SUMMARY PRIMARY CARE PHYSICIAN: Ruben Luo M.D. PRIMARY DIAGNOSIS: Non-ST segment elevation myocardial infarction. SECONDARY DIAGNOSES: 1. Intermediately elevated troponin. 2. Hypertension. 3. Type 2 diabetes mellitus. 4. Normocytic anemia. 5. Asthma. 6. History of carotid stenosis, status post stents. PROCEDURES ON THIS ADMISSION: Cardiac cath. CONSULTATIONS: Cardiology. HOSPITAL COURSE: The patient is a 67-year-old male, who presented initially to [facility] complaining of chest pain, stating that around 5 p.m. yesterday, he woke from a nap, experiencing pain radiating to his jaw and then on the left side of his chest. The patient reports that when he was trying to walk up some stairs, it exacerbated his pain and persisted for about an hour. Initial workup at [facility] was negative and r (more content not [...] Sharon Ellison PA-C [address] [place] [address] Referral ID Status Reason Start Date Expiration Date Visits Re quested Visits Authorized [id number] Closed 05/22/2022 05/22/2023 1 1 Specialty Diagnoses / Procedures Referred By Contac t Referred To Contact Radiology Diagnoses Osteopenia of lumbar spine Procedures DEXA BONE DENSITY AXIAL SKELETON Sharon Ellison PA-C [facility] [place] [address] Referral ID Status Reason Start Date Expiration Date Visits Re quested Visits Authorized [id number] Closed 05/22/2022 05/22/2023 1 1 Specialty Diagnoses / Procedures Referred By Contac t Referred To Contact Radiology Diagnoses Spondylosis of lumbosacral region without myelopathy or radiculopathy Lumbar spondylosis Postlaminectomy syndrome, lumbar Spinal stenosis of lumbar region with neurogenic claudication Procedures MRI LUMBAR SPINE WO CONTRAST Osiel Elaine R, TEXTILE COLORIST FORMULATOR - STARBUCKS CLERK [address] [id number] Referral ID Status Reason Start Date Expiration Date Visits Re quested Visits Authorized [id number] Closed 03/30/2022 03/30/2023 1 1 Additional Source Comments (unrecognized sect ion and content) No Status Records FoundNo Status Records FoundNo Status Records FoundNo Status Records FoundNo Status Records FoundNo Status Records FoundNo Status Records FoundNo Status Records Found INFORMATION SOURCE (unrecogn ized section and content) DATE CREATED AUTHOR 12/02/2018 [facility] DATE CREATED AUTHOR AUTHOR'S ORGANIZ ATION 07/27/2022 [facility] DATE CREATED AUTHOR AUTHOR'S ORGANIZ ATION 08/16/2022 [facility] DATE CREATED AUTHOR AUTHOR'S ORGANIZ ATION 01/13/2023 [facility] DATE CREATED AUTHOR AUTHOR'S ORGANIZ ATION 02/04/2023 [facility] DATE CREATED AUTHOR AUTHOR'S ORGANIZ ATION 02/22/2023 [facility] DATE CREATED AUTHOR AUTHOR'S ORGANIZ ATION 04/13/2023 [facility] DATE CREATED AUTHOR AUTHOR'S ORGANIZ ATION 05/01/2023 [facility] dical Specialists EPIC REASON FOR VISIT (unrecogniz ed section and content) Specialty Diagnoses / Procedures Referred By Contac t Referred To Contact Radiology Diagnoses Spondylosis of lumbosacral region without myelopathy or radiculopathy Lumbar spondylosis Postlaminectomy syndrome, lumbar Spinal stenosis of lumbar region with neurogenic claudication Procedures MRI LUMBAR SPINE WO CONTRAST Osiel Elaine R, TEXTILE COLORIST FORMULATOR - STARBUCKS CLERK [address] [id number] Referral ID Status Reason Start Date Expiration Date Visits Re quested Visits Authorized [id number] Closed 03/30/2022 03/30/2023 1 1 Specialty Diagnoses / Procedures Referred By Contac t Referred To Contact Radiology Diagnoses Osteopenia of lumbar spine Procedures DEXA BONE DENSITY AXIAL SKELETON Sharon Ellison PA-C [address] [place] [address] Referral ID Status Reason Start Date Expiration Date Visits Re quested Visits Authorized [id number] Closed 05/22/2022 05/22/2023 1 1 Specialty Diagnoses / Procedures Referred By Contac t Referred To Contact Radiology Diagnoses Spinal stenosis, lumbar region, without neurogenic claudication Right foot drop Procedures CT LUMBAR SPINE WO CONTRAST Sharon Ellison PA-C [address] [place] [address] Referral ID Status Reason Start Date Expiration Date Visits Re quested Visits Authorized [id number] Closed 05/22/2022 05/22/2023 1 1 Specialty Diagnoses / Procedures Referred By Contac t Referred To Contact Radiology Diagnoses Spinal stenosis, lumbar region, without neurogenic claudication Right foot drop Procedures CT THORACIC SPINE WO CONTRAST Sharon Ellison PA-C [address] [place] [address] Referral ID Status Reason Start Date Expiration Date Visits Re quested Visits Authorized [id number] Closed 05/22/2022 05/22/2023 1 1 Specialty Diagnoses / Procedures Referred By Contac t Referred To Contact Diagnoses Lumbar spondylosis Spinal stenosis, unspecified spinal region Spondylolisthesis, unspecified spinal region Lumbar spondylosis [M47.816] Spinal stenosis, unspecified spinal region [M48.00] Spondylolisthesis, unspecified spinal region [M43.10] Procedures [place] ARTHRODESIS POSTERIOR/PSTLAT TQ 1NTRSPC LUMBAR [place] ARTHRODESIS PST/PSTLAT TQ 1NTRSPC EA ADDL NTRSPC W[place] ARTHRODESIS SI JT OPN W/OBTAINING B1 GRF INSTRMJ W[place] FACETECTOMY&FORAMOT 1 VRT SGM EA ADDL SGM WV POSTERIOR SEGMENTAL INSTRUMENTATION 3-6 VRT SEG W[place] ALLOGRAFT FOR SPINE SURGERY ONLY MORSELIZED L2-S1 REVISION DECOMPRESSION WITH L2-PELVIS FUSION Gabe Harris MD [facility] [place] [address] [facility] [id number] [place] [address] Referral ID Status Reason Start Date Expiration Date Visits Re quested Visits Authorized [id number] 1 1 Care Teams (unrecognized sec tion and content) Team Status: Active Member Role Status Dates Ruben Luo MD Primary Care Provider Active Team Status: Inactive Member Role Status Dates Ruben Luo MD Primary Care Provider Active Ney Roman MD Attending Provider Active Team Status: Inactive Member Role Status Dates Ruben Luo MD Primary Care Provider Active Orlando Beaver MD Attending Provider Active Construction Assistant Relationship Specialty Start Date End Date Ruben Luo MD PCP - General 09/15/13 Construction Assistant Relationship Specialty Start Date End Date Ruben Luo MD PCP - General 09/15/13 Construction Assistant Relationship Specialty Start Date End Date Ruben Luo MD PCP - General 09/15/13 Construction Assistant Relationship Specialty Start Date End Date Ruben [...] Tobias RN) 0823 (Given - Provider: Irene Sauer, MAMIE) amLODIPine (NORVASC) tablet 10 mg 10 mg, Oral, DAILY, First dose (after last modification) on Sat07/21/22 at 1300, Until Discontinued 08 (Given - Provider: Yomaira Lynn RN) 0845 (Given - Provider: Justa Tobias, MAMIE) 0823 (Given - Provider: Irene Sauer, MAMIE) atorvastatin (LIPITOR) tablet 40 mg 40 mg, Oral, EVERY EVENING, First dose on Sat07/19/22 at 1830, Until Discontinued 1847 (Given - Provider: Justa Haney RN) 181 (Given - Provider: Justa Tobias RN) 164 (Given - Provider: Irene Sauer RN) bisacodyl (DULCOLAX) EC tablet 5 mg 5 mg, Oral, DAILY, First dose on Sat07/21/22 at 0900, Until Discontinued, Do not crush or break., Post-op 08 (Given - Provider: Yomaira Lynn RN) 0845 (Given - Provider: Justa Tobias RN) 08 (Given - Provider: Irene Sauer RN) carvedilol (COREG) tablet 12.5 mg 12.5 mg, Oral, 2 TIMES DAILY WITH MEALS, First dose (after last modification) on Sat07/19/22 at 1830, Until Discontinued, Administer with food to minimize the risk of orthostatic hypotension 0757 (Given - Provider: Yomaira Lynn RN)1631 (Given - Provider: Justa Haney, MAMIE) 0845 (Given - Provider: Justa Tobias RN)1724 (Given - Provider: Justa Tobias RN) 0823 (Given - Provider: Irene Sauer RN)1641 (Given - Provider: Irene Sauer RN) Dexamethasone Sodium Phosphate injection 8 mg (COMPLETED) 8 mg, IntraVENous, EVERY 8 HOURS, First dose on Sat07/23/22 at 1530, For 6 doses 0758 (Given - Provider: Yomaira Lynn RN)1630 (Given - Provider: Justa Haney, MAMIE)2225 (Given - Provider: Juan Bermeo RN) 0844 [...] Discontinued 0757 (Given - Provider: Yomaira Lynn RN)1631 (Given - Provider: Justa Haney RN) 0845 (Given - Provider: Justa Tobias RN)1725 (Given - Provider: Justa Tobias RN) 0823 (Given - Provider: Irene Sauer RN)1641 (Given - Provider: Irene Sauer RN) glipiZIDE [...] 50 mg, Oral, DAILY, First dose on Billie 07/19/22 at 1615, Until Discontinued 08 (Given - Provider: Yomaira Lynn RN) 0845 (Given - Provider: Justa Tobias RN) 0823 (Given - Provider: Irene Sauer RN) magnesium oxide (MAG-OX) tablet 400 mg 400 mg, Oral, DAILY, First dose on Billie 07/19/22 at 1830, Until Discontinued 08 (Given - Provider: Yomaira Lynn RN) 0900 (Given - Provider: Justa Tobias RN) 0823 (Given - Provider: Irene Sauer, MAMIE) polyethylene glycol (GLYCOLAX) packet 17 g 17 [...] Patient/family refused) 0824 (Given - Provider: Irene Sauer, RN)2100 (Due) sodium chloride flush 0.9 % [...] Justa Tobias RN - Reason: IV Fluid Infusing)221 (Given - Provider: Juan Bermeo RN) 0824 [...] after dose. 1605 (Given - Provider: Justa Tobias, MAMIE) Continuous Medication Order 07/24/2022 07/25/2022 07/26/2022 0.9 % sodium chloride infusion (CANCELED) IntraVENous, at 50 mL/hr, CONTINUOUS, Starting on 07/23/22 at 1900 0208 (New Bag - Provider: [...] Oral, EVERY 6 HOURS PRN, Starting on Billie 07/19/22 at 1149, Until Discontinued, Pain Mild (1-3), Fever, Maximum dose of acetaminophen is 4000 mg from all sources in 24 hours. albuterol (PROVENTIL) nebulizer solution 2.5 mg 2.5 mg, Nebulization, EVERY 4 HOURS PRN, Starting on 07/21/22 at 0820, Until Discontinued, Wheezing, Initiate [...] boluses or administration of glucagon, Starting on Bilile 07/19/22 at 1757, If blood glucose fails [...] 160 0845 (Given - Provider: Justa Tobias, RN) 0619 (Given - Provider: Juan Bermeo, MAMIE) morphine (PF) injection 2 mg 2 mg, [...] Billie 07/19/22 at 1759, Until Discontinued, Chest pain, Place [...] Oral, EVERY 6 HOURS PRN, Starting on Sat07/23/22 at 1442, Until Discontinued, Pain Moderate (4-6), [...] BE BASED ON THE PRIMARY CLINICAL RECORDS. [facility] Response [facility]. provides no warranty or guarantee of the accuracy or completeness of information in this document.
[2023-05-04 11:19] LABS: Hematocrit 31.6 % (42.0-54.0); Hemoglobin 10.6 g/dL (14.0-18.0); Mean Corpuscular HGB Conc 33.5 g/dL (29.9-35.2); Mean Corpuscular Hemoglobin 31.9 pg (25.9-34.0); Mean Corpuscular Volume 95.2 fL (80.0-94.0); Mean Platelet Volume 8.7 fL (9.5-13.5); Platelet Count 178 10^3/uL (150-450); Red Blood Count 3.32 10^6/uL (4.70-6.10); Red Cell Distribution Width 13.8 % (11.0-15.0); White Blood Count 6.7 10^3/uL (4.0-11.0)
[2023-05-04 16:45] LABS: Albumin Level 3.3 g/dL (3.4-5.0); Anion Gap 11.4; BUN Creatinine Ratio 20.7; Calcium 8.5 mg/dL (8.5-10.1); Carbon Dioxide 29.4 mmol/L (21.0-32.0); Chloride 106 mmol/L (98-107); Estimated GFR (African America 31 (>=60); Estimated GFR (Non-African Ame 25 (>=60); Glucose 105 mg/dL (74-106); Phosphorus 4.1 mg/dL (2.6-4.7); Potassium 4.8 mmol/L (3.5-5.1); Sodium 142 mmol/L (136-145)
== END 2023-05-04 10:46 | disposition home or self-care (01) ==
LOC: LAB 10:45
PROVIDERS: PCP Family Medicine; Visit Provider Internal Medicine
DX: N18.4 Chronic kidney disease, stage 4 (severe) (principal); D63.1 Anemia in chronic kidney disease
CPT/HCPCS: 36415; 80069; 85027

== ENCOUNTER 2023-06-07 11:32 | Outpatient (OUT) | payer MEDICARE, OTHER, SELFPAY ==
--- OUTSIDE RECORDS SUMMARY | 2023-06-07 11:38 | XMS_ITS | CCD ---
Author Name Unknown Address [address] [facility] [address] [place] [id number] Organization [facility] Care Team Providers Care Modeling And Simulation Analyst Name Role Phone UNKNOWN, PROVIDER Admitting Unavailable UNKNOWN, PROVIDER Attending Unavailable RUBEN LUO Referring Unavailable RUBEN LUO Primary Care Unavailable GABY ORTIZ Admitting Unavailable GABY ORTIZ Attending Unavailable RUBEN LUO Primary Care Unavailable OTILIA SANCHEZ Referring Unavailable IA Procedure Practitioner Unavailab le UNKNOWN, PROVIDER Surgeon Unavailable Ruben Luo MD Primary Care Provider [phone] Ney Roman Unavailable Oma Sewell Unavailable Orlando Beaver Unavailable MD Ruben Luo Primary Care Provider [phone] MD Orlando Beaver Attending Provider [phone] Ruben Luo MD Primary Care Provider [phone] Ruben Luo MD Primary Care Provider RUBEN LUO Primary Care Unavailable DYAN, OLUREMI A Consulting Unavailable RUBEN LUO Primary Care Unavailable UDO-INYANG, INYANG Admitting Unavailable UDO-INYANG, INYANG Attending Unavailable Dorinda Motley Unavailable OMA SEWELL Attending Unavailable DONATOAUGUSTOUL Admitting Unavailable PUJA ., DR WILCOX Primary Care Unavailable OMA SEWELL Consulting Unavailable PUJA ., DR WILCOX Primary Care Unavailable HEMEYER ., DR WILCOX Attending Unavailable HEMEYER ., DR WILCOX Admitting Unavailable HEMEDOUGIE ., DR WILCOX Consulting Unavailable HEMEDOUGIE ., DR WILCOX Primary Care Unavailable HEMEYER [...] Dasia Flowers Unavailable UDO-INYANG, INYANG Referring Unavailable RUBEN LUO Primary Care Unavailable UDO-INYANG, INYANG Attending Unavailable [...] Referring Unavailable RUBEN LUO Primary Care Unavailable Puja TURPIN, Ruben Dill Primary Care Gabe Barnhart MD, Jr Attending Unavail able Puja TURPIN, Ruben Dill Primary Care Gabe Barnhart MD, Jr Attending Unavail able Gabe Harris MD, Jr Admitting Unavail able Devon VÁSQUEZ, Lizette Montana Consulting Unavailab neville Bueno APRN-YARD JACKER, Patricia Mujica Consulting Unavailable Puja TURPIN, Ruben Dill [facility] Care Ky Roca MD, Domenic Perales Attending Unavaila IRA Wood Attending Unavailable VADIM VERONICA Attending Unavailable MD Ruben Luo Primary Care Provider MD Ney Roman Attending Provider Ruben Luo MD Primary Care Provider Ruben Lou MD Unavailable [phone] RUBEN LUO Attending Unavailable RUBEN LUO Attending Unavailable RUBEN LUO Referring Unavailable Ruben Luo Primary Care Unavailable Ney Roman Admitting Unavailabl e Ney Roman Attending Unavailabl e Ruben Luo Primary Care Unavailable Ney Roman Admitting Unavailabl e Ney Roman Attending Unavailabl e Allergies Allergy Classification Reported Allergen(s) Allergy Type Date of Onset Reaction(s) Facility (20 sources) Angiotensin Converting Enzyme (Noelle) Inhibitors; Translations: [NOELLE INHIBITORS] Propensity to adverse reactions to drug 09-17-19 14 Other (See Comments) [facility] (20 sources) Acetaminophen / HYDROcodone Drug Allergy nausea vomiting [employer] Other (20 sources) Lisinopril; Translations: [lisinopril] Drug Allergy cough [employer] [facility] Repository (6 sources) Codeine; Translations: [codeine] Drug Allergy 07-12-19 23 Nausea And Vomiting [facility] [employer] Phone: (5 sources) Sulfamethoxazole / Trimethoprim; Translations: [SULFAMETHOXAZOLE-T RIMETHOPRIM] Drug Allergy 07-12-19 23 Nausea And Vomiting [facility] [employer] Phone: (12 sources) Substance with sulfonamide structure and antibacterial mechanism of action (substance) Drug allergy stomach upset [employer] Other (5 sources) gabapentin; Translations: [gabapentin] Drug Allergy 07-06-19 23 [employer] [facility] Repository (1 source) Naproxen; Translations: [Aleve] Drug Allergy [facility] Repository (1 source) Sulfonamides (Antibiotic); Translations: [sulfa drugs] Propensity to adverse reactions to drug (disorder) [employer] [facility] Repository (4 sources) Acetaminophen / HYDROcodone; Translations: [HYDROCODONE-ACETAM INOPHEN] Drug Allergy 05-15-19 22 [facility] Repository (4 sources) amLODIPine; Translations: [AMLODIPINE] Drug Allergy 05-15-19 22 [facility] Repository (4 sources) levoFLOXacin; Translations: [LEVOFLOXACIN] Drug Allergy 01-13-20 22 [facility] Repository (4 sources) pregabalin; Translations: [PREGABALIN] Drug Allergy 07-06-19 23 [facility] Repository (3 sources) Angiotensin-convert ing enzyme inhibitor agent Drug Intolerance 09-17-19 14 [facility] (1 source) Acetaminophen Drug Allergy 05-07-19 24 [facility] Repository (1 source) Angiotensin Converting Enzyme (Noelle) Inhibitors Drug allergy (disorder) 05-07-19 [facility] Repository (1 source) HYDROcodone Drug Allergy 05-07-19 [facility] Repository (1 source) Lisinopril Drug Allergy 05-07-19 [facility] Repository (1 source) Sulfonamides (Antibiotic) Drug allergy (disorder) 05-07-19 [facility] Repository Medications Current Medications Medication Drug Class(es) Dates Sig (Normalized) Sig (Original) acetaminophen 325 mg oral tablet (8 sources) Start: 07-19-2022 acetaminophen (TYLENOL) tablet 650 mg take 2 tablets by mo ut every eight hours Acetaminophen ER 650 MG [...] RT Bronchodilator Protocol: Yes - Inpatient Protocol take 2.5 mg by inhal ation every six hours as needed for dyspnea albuterol (2.5 MG/3ML) 0.083% nebulizer solution Inhale 2.5 mg every 6 (six) hours if needed for shortness of breath. 0 Active Albuterol Sulfat e (2.5 MG/3ML) 0.083% [...] (20 sources) Dihydropyridine Calcium Channel [place]man Start: 11-01-2022 End: 10-27-2023 take 1 tablet by mouth in the morning amLODIPine (Norvasc) 10 MG tablet Indications: Benign essential HTN (CMS/HCC) Take 1 tablet (10 mg) by mouth in the morning. 90 tablet 1 04/30/2023 10/27/2023 Active Start: 05-04-2016 End: 07-21-2022 take 1 tablet [...] check* Active aspirin 81 mg oral tablet (12 sources) Platelet Aggregation Inhibitor, Nonsteroidal Anti-inflammatory Drug Start: 04-16-2022 take 81 mg by mouth once daily Aspirin Active 81 MG PO Daily April 16, 2022 12:00am take 1 tablet by mouth three haja es weekly aspirin 81 MG EC tablet Take 81 mg by mouth 3 (three) times a week. 0 Active atorvastatin 40 mg oral tablet (20 sources) HMG-CoA Reductase Inhibitor Start: 04-16-2022 End: 10-27-2023 take 1 tablet by mouth in the morning atorvastatin (Lipitor) 40 MG tablet Indications: Hyperlipidemia associated with type 2 diabetes mellitus (CMS/HCC) Take 1 tablet (40 mg) by mouth in the morning. 90 tablet 1 04/30/2023 10/27/2023 Active azelastine hydrochloride 0.137 mg/actuat metered dose nasal spray (3 sources) Histamine-1 Receptor Antagonist Start: 04-17-2022 take 2 spray(s) nasal route twice daily as needed azelastine (Astelin) 0.1 % nasal spray Administer 2 sprays into each nostril 2 (two) times a day as needed for allergies. 0 04/17/2022 Active Biotin (4 sources) take 0.5 tablet by mouth once daily Biotin 62265 MCG 1/2 TABLET Orally Once a day Active take 1 tablet by mouth once yamilka y Biotin 70552 MCG 1 tablet Orally Once a day Active carvedilol 12.5 mg oral tablet (20 sources) alpha-Adrenergic Suleman, beta-Adrenergic [facility] Start: 07-25-2022 take 1 tablet by mouth twice daily at mealtime carvedilol (COREG) 12.5 MG tablet Take 1 tablet by mouth 2 times daily (with meals) 60 tablet 3 07/25/2022 Active Start: 07-19-2022 carvedilol (CO REG) tablet 12.5 mg Start: 01-12-2022 End: 07-25-2022 take 1 tablet by mouth in the morning carvedilol (Coreg) 6.25 MG tablet Take 6.25 mg by mouth in the morning and 6.25 mg in the evening. Take with meals. 0 01/12/2022 Active Start: 01-12-2022 End: 07-25-2022 take 1 tablet by mouth in the morning carvedilol (Coreg) 3.125 MG tablet Take 3.125 mg by mouth in the morning and 3.125 mg in the evening. Take with meals. 0 01/12/2022 Active cholecalciferol 0.05 mg oral tablet (20 sources) Vitamin D Start: 04-16-2022 take 1 tablet by mouth in the morning cholecalciferol (Vitamin D-3) 50 MCG (1999 UT) tablet Take 50 mcg by mouth in the morning. 0 08/28/2022 Active take 1 capsule by [facility] every twenty-four hours Vitamin D3 50 MCG (1999 UT) 1 capsule Orally Once a day Active End: 07-26-2022 take 2 tablets by mouth once daily Cholecalciferol (VITAMIN D3) 25 MCG (999 UT) TABS Take 2 tablets by mouth [...] Daily April 16, 2022 12:00am epoetin michelle 51911 unt/ml injectable solution (20 sources) Erythropoiesis-stimulating Agent epoetin michelle (Epogen,Procrit) 74832 UNIT/ML injection Inject 1,000 Units under the skin See administration instructions. Every 3 weeks 0 Active Procrit 66388 UN IT/ML as directed Injection every 4 weeks Active Procrit 11712 UN IT/ML as directed Injection every 4 weeks Active epoetin michelle (IA OCRIT) 28890 UNIT/ML injection Inject 1,000 Units into the [...] Dec, Active furosemide 20 mg oral tablet (15 sources) Loop Diuretic Start: 09-10-2022 take 1 tablet by mouth in the morning furosemide (Lasix) 20 MG tablet Take 20 mg by mouth in the morning. 0 09/10/2022 Active take 0.5 tablet by mouth once da richard Lasix 40 MG 1/2 tablet Orally Once a day Active take 1 tablet by papito th every twenty-four hours Lasix 40 MG 1 tablet Orally Once a day for 90 days Active glipiZIDE 5 mg oral tablet (20 sources) Sulfonylurea Start: 03-28-2023 End: 10-27-2023 glipiZIDE (Glucotrol) 5 MG tablet Indications: Type 2 diabetes mellitus with stage 4 chronic kidney disease, without long-term current use of insulin ([facility]) Take 1 tablet (5 mg) by mouth in the morning. 90 tablet 1 04/30/2023 10/27/2023 Active Start: 07-27-2022 take 1 tablet by papito th once daily before breakfast glipiZIDE (GLUCOTROL) 5 [...] boluses or administration of glucagon, Starting on Sat07/19/22 at 1757 If blood glucose fails to [...] tablet ), Oral, PRN, Starting on Billie 4/13/23 at 1757, Until Discontinued, Low blood sugar [...] lispro (HUMALOG) injection vial 0-4 Units Iron (13 sources) take 1 tablet by mouth twice [...] 0 07/25/2022 Discontinued (Stop Taking at Discharge) Magnesium (4 sources) take 1 tablet by papito th before mealtime Magnesium 400 MG capsule Take 1 tablet by mouth in the morning. Take before meals. 0 Active End: 07-25-2022 take 1 capsule by mouth [...] at Discharge) take 1 tablet by papito twice daily at mealtime metFORMIN (GLUCOPHAGE) 850 [...] injection 2 mg Multi For Him - (4 sources) Multi For Him - as directed Orally Active Multi-Vitamins (20 sources) Start: 02-11-20 12 take 1 tablet by mouth once daily at mealtime Multi-Vitamins take 1 tablet by oral route every day with food Oral Feb, Not-Taking Start: 02-11-2012 take 1 tablet by papito once daily at mealtime Start: 02-11-2012 take 1 tablet by papito once daily at mealtime Multi-Vitamins take 1 tablet by oral route every day with food Oral Feb, Active Start: 02-11-2012 take 1 tablet by papito once daily at mealtime Multi-Vitamins take 1 [...] 16, 2022 12:00am Nitro Sublingual 0.4 0.4mg (4 sources) Nitro Sublingual 0.4 0.4mg 1 Sublingual Every 5min x3 Active ondansetron (ZOFRAN-ODT) disintegrating tablet 4 mg (1 source) Start: 07-20-2022 ondansetron (ZOFRAN-ODT) disintegrating tablet 4 mg Probiotic Product (PROBIOTIC DAILY PO) (7 sources) Probiotic Produc t (PROBIOTIC DAILY PO) Take by mouth daily. 0 Active vitamin b12 0.5 mg oral tablet (20 sources) Vitamin B12 take 1 tablet by mouth in the morning cyanocobalamin (Vitamin B-12) 500 MCG tablet Take 500 mcg by mouth in the morning. 0 Active Vitamin B12 3000 MCG as directed Sublingual [...] Not-Taking docusate sodium 50 mg / sennosides, penitentiary 8.6 mg oral tablet (1 source) Start: 07-20-2022 take 1 tablet by mouth twice daily 1 tablet, Oral, 2 TIMES DAILY, First dose on Sat07/20/22 at 2100, Until Discontinued, Post-op doxycycline hyclate 100 mg oral capsule (20 sources) Tetracycline-class Drug Start: 12-02-2018 End: 04-30-2023 take 1 capsule by mouth once daily as needed doxycycline (Vibramycin) 100 MG capsule Indications: Rosacea Take 1 capsule (100 mg) by mouth Daily as needed (rosacea). 30 capsule 5 11/01/2022 04/30/2023 Doxycycline Hycl ate 100 MG 1 tablet Orally prn Active take 1 capsule by mo [facility] twice daily as needed doxycycline hyclate (VIBRAMYCIN) 100 MG capsule Take 1 capsule by mouth 2 times daily As needed for rosacea 0 Active ferrous sulfate 325 mg oral tablet (7 sources) Start: 07-25-2022 End: 07-25-2022 take 1 [...] 16, 2022 12:00am take 1 tablet by [facility] in the morning ferrous sulfate 325 (65 Fe) MG tablet Take 325 mg by mouth in the morning and 325 mg before bedtime. 0 Active fexofenadine hydrochloride 180 mg oral tablet (7 [...] End: 07-23-2022 LORazepam (ATIVAN) injection 0.25 mg meloxicam 15 mg oral tablet (8 sources) [...] 0.4 Active nitroglycerin 0.4 mg sublingual tablet (5 sources) Nitrate Vasodilator Start: 07-19-2022 0.4 mg, SubLINGual, EVERY 5 MIN PRN, Starting on Billie 07/19/22 at 1759, Until Discontinued, Chest pain Place 1 tablet under tongue upon chest pain, wait 5 minutes and may repeat up to 3 doses in 15 minutes. Do not crush or break. polyethylene glycol 3350 70546 mg powder for oral solution (1 source) [...] INJECTION - 1000 units (20 sources) Start: 05-07-2023 PROCRIT INJECTION - 1000 units Apr, 1000 mL Start: 04-16-2023 PROCRIT INJECT ION - 1000 units Apr, 1000 mL Start: 03-26-2023 PROCRIT INJECT ION - 1000 units Mar, 1000 mL Start: [...] line therapy. Post-[place] [address] mg powder for oral suspension (2 sources) [...] 0 07/26/2022 Discontinued (Stop Taking at Discharge) tiZANidine 4 mg oral tablet (2 sources) Central alpha-2 Adrenergic Agonist Start: 01-29-2023 End: 04-30-2023 take 1 tablet by mouth every eight hours as needed tiZANidine (Zanaflex) 4 MG tablet Take 4 mg by mouth every 8 (eight) hours if needed 0 01/29/2023 04/30/2023 Discontinued (Therapy completed) traMADol hydrochloride 50 mg oral tablet (4 sources) Opioid Agonist Start: 01-29-2023 End: 04-30-2023 take 1 tablet by mouth every eight hours as needed traMADol (Ultram) 50 MG tablet Take 50 mg by mouth every 8 (eight) hours if needed 0 01/29/2023 04/30/2023 Discontinued (Therapy completed) Start: 07-23-2022 End: 08-02-2022 take 1 tablet by mouth every six hours as needed for pain traMADol (ULTRAM) 50 MG tablet Indications: Lumbar stenosis with neurogenic claudication Take 1 tablet by mouth every 6 hours as needed for Pain for up to 7 days. Max Daily Amount: 200 mg 28 tablet 0 07/26/2022 08/02/2022 Active Problems Active Problems Problem Classification Problem Date Documented Date Episodic/Chronic Anxiety disorders (20 sources) Claustrophobia; Translations: [Claustrophobia] Onset: 9 10-24-2022 Chronic Asthma (20 sources) Exacerbation of moderate persistent asthma; Translations: [Moderate persistent asthma with (acute) exacerbation] Onset: 8 05-10-2023 Chronic Chronic kidney disease (20 sources) Chronic kidney disease stage 3B ; Translations: [Chronic kidney disease, stage 3b] Onset: 0 Resolved: 4 Chronic Chronic kidney disease (19 sources) Chronic kidney disease; Translations: [Chronic kidney disease, stage 3b] Onset: 2 Resolved: 2 Coronary atherosclerosis and other heart disease (20 sources) Coronary arteriosclerosis in [place] artery; Translations: [Atherosclerotic heart disease of [place] coronary artery without angina pectoris] Onset: 8 Resolved: 3 Chronic Deficiency and other anemia (20 sources) Anemia of renal disease; Translations: [Anemia in chronic kidney disease] Chronic Deficiency and other anemia (19 sources) Anemia in chronic kidney disease; Translations: [ANEMIA IN CHRONIC KIDNEY DISEASE] Onset: 2 Resolved: 2 Chronic Diabetes mellitus with complications (20 sources) Type 2 diabetes mellitus; Translations: [Type 2 diabetes mellitus with other diabetic kidney complication] Onset: 5 Resolved: 4 Chronic Diabetes mellitus without complication (2 sources) Type 2 diabetes mellitus without complications; Translations: [Type 2 diabetes mellitus without complications] Onset: 3 Chronic E Codes: Fall (1 source) Accidental fall ; Translations: [Fall (on) (from) other stairs and steps, initial encounter] 05-06-2023 Episodic Esophageal disorders (20 sources) Gastroesophageal reflux disease without esophagitis; Translations: [Gastro-esophageal reflux disease without esophagitis] Onset: 6 10-24-2022 Chronic Essential hypertension (20 sources) Benign essential hypertension; Translations: [Essential (primary) hypertension] Onset: 5 Chronic Fluid and electrolyte disorders (17 sources) Hyperkalemia; Translations: [Acidosis] Onset: 2 Resolved: 2 Episodic Hyperplasia of prostate (20 sources) Large prostate ; Translations: [Benign prostatic hypertrophy with outflow obstruction] Onset: 9 Chronic Hypertension with complications and secondary hypertension (20 sources) Chronic kidney disease due to hypertension; Translations: [Hypertensive chronic kidney disease with stage 1 through stage 4 chronic kidney disease, or unspecified chronic kidney disease] Onset: 2 Resolved: 4 Chronic Immunizations and screening for infectious disease (3 sources) Carrier or suspected carrier of Methicillin resistant Staphylococcus aureus; Translations: [RODRIGUEZ/SPCT METHICIL RESIST STAPH AUR] Onset: 3 Episodic Malaise and fatigue (20 sources) Fatigue; Translations: [Chronic fatigue, unspecified] Onset: 8 10-24-2022 Chronic Nephritis; nephrosis; renal sclerosis (5 sources) Nephrotic syndrome; Translations: [Nephrotic syndrome with unspecified morphologic changes] Onset: 3 05-10-2023 Chronic Occlusion or stenosis of precerebral arteries [...] Onset: 3 Episodic Other aftercare (3 sources) half-way (current) use of aspirin; Translations: [HVAC TECHNICIAN RESIDENTIAL CURRENT USE OF ASPIRIN] Onset: 3 Episodic Other and ill-defined heart disease (20 sources) Diastolic dysfunction; Translations: [Heart disease, unspecified] Onset: 3 10-24-2022 Chronic Other and ill-defined heart disease (20 sources) Right atrial enlargement; Translations: [Cardiomegaly] Onset: 9 10-24-2022 Chronic Other and ill-defined heart disease (20 sources) Left atrial enlargement; Translations: [Cardiomegaly] Onset: 3 10-24-2022 Chronic Other and ill-defined heart disease (1 source) Heart disease, unspecified; Translations: [HEART DISEASE UNSPECIFIED] Onset: 3 Chronic Other and ill-defined heart disease (1 source) Cardiomegaly; Translations: [CARDIOMEGALY] Onset: 3 Chronic Other and ill-defined heart disease (3 sources) Cardiomegaly; Translations: [Cardiomegaly] Onset: 9 10-24-2022 Chronic Other and unspecified benign neoplasm (20 [...] Chronic Other diseases of kidney and ureters (16 sources) Secondary hyperparathyroidism of renal origin; Translations: [SEC HYPERPARATHYROIDISM RENAL ORIGN] Onset: 2 Resolved: 2 Chronic Other inflammatory condition of skin (20 sources) Rosacea; Translations: [Rosacea, unspecified] Onset: 6 10-24-2022 Chronic Other injuries and conditions due to external causes (1 source) Injury of right ankle; Translations: [Unspecified injury of right ankle, initial encounter] 05-16-2023 Episodic Other male genital disorders (1 source) Impotence Chronic Other male genital disorders (3 sources) Erectile dysfunction co-occurrent and due to arterial insufficiency; Translations: [Erectile dysfunction due to arterial insufficiency] Onset: 3 10-24-2022 Chronic Other male genital disorders (3 sources) Secondary erectile dysfunction; Translations: [Male erectile dysfunction, unspecified] Onset: 0 10-24-2022 Chronic Other nervous system disorders (1 source) Disease of spinal cord, unspecified; Translations: [Disease of spinal cord, unspecified] Onset: 3 Chronic Other non-traumatic joint disorders (1 source) Swollen ankle region; Translations: [Effusion, right ankle] 05-06-2023 Episodic Other nutritional; endocrine; and metabolic disorders (15 sources) Hypomagnesemia; Translations: [Hypomagnesemia] Chronic Other nutritional; endocrine; and metabolic disorders (11 sources) Hypomagnesemia; Translations: [HYPOMAGNESEMIA] Onset: 3 Chronic Other nutritional; endocrine; and metabolic disorders (6 sources) Body mass index 25-29 - overweight; Translations: [Overweight] Onset: 4 04-23-2023 Episodic Other upper respiratory disease (3 sources) Allergic rhinitis; Translations: [Allergic rhinitis, unspecified] Onset: 0 10-24-2022 Chronic Residual codes; unclassified (20 sources) Obstructive sleep apnea syndrome; Translations: [Obstructive sleep apnea (adult) (pediatric)] Chronic Residual codes; unclassified (2 sources) Other specified postprocedural states Episodic Spondylosis; intervertebral disc disorders; other back problems (20 sources) Disorder of joint of spine; Translations: [Other spondylosis with radiculopathy, lumbar region] Onset: 8 Chronic Unclassified (2 sources) Rectum finding Onset: 0 Unclassified (3 sources) CONTACT W/AND (SUSP) EXPOS COVID-19; Translations: [CONTACT W/AND (SUSP) EXPOS COVID-19] Onset: 2 Unclassified (1 source) COUGH, UNSPECIFIED; Translations: [COUGH, UNSPECIFIED] Onset: 2 Unclassified (1 source) Occlusion and stenosis of bilateral carotid arteries; Translations: [Occlusion and stenosis of bilateral carotid arteries] Onset: 3 Past or Other Problems Problem Classification Problem Date Documented Date Episodic/Chronic Acquired foot deformities (3 sources) Right foot drop; Translations: [Foot drop, right foot] Onset: 05-30-2022 Episodic Acute myocardial infarction (20 sources) Acute non-ST segment elevation myocardial infarction; Translations: [Non-ST elevation (NSTEMI) myocardial infarction] Onset: 01-17-2018 Resolved: 01-17-2023 01-17-2023 Chronic Acute posthemorrhagic anemia (5 sources) Acute posthemorrhagic anemia; Translations: [Acute posthemorrhagic anemia] Onset: 07-25-2022 Resolved: 05-10-2023 Episodic Calculus of urinary tract (20 sources) Kidney stone; Translations: [Calculus of kidney] Onset: 04-25-2020 10-24-2022 Episodic Coronary atherosclerosis and other heart disease (20 sources) Stented coronary artery; Translations: [Presence of coronary angioplasty implant and graft] Onset: 01-12-2022 Episodic Disorders of lipid metabolism (20 sources) Mixed hyperlipidemia; Translations: [Mixed hyperlipidemia] Onset: 01-22-2018 Resolved: 10-30-2022 Chronic Genitourinary symptoms and ill-defined conditions (20 sources) Proteinuria, unspecified; Translations: [Other microscopic hematuria] Onset: 02-22-2020 Resolved: 05-10-2023 Episodic Other acquired deformities (3 sources) Acquired spondylolisthesis; Translations: [Spondylolisthesis, site unspecified] Onset: 01-15-2019 10-24-2022 Episodic Other aftercare (5 sources) Polypharmacy ; Translations: [Other exterminator helper termite (current) drug therapy] Onset: 10-18-2020 05-10-2023 Episodic Other bone disease and musculoskeletal deformities (1 source) Other specified disorders of bone density and structure, other site; Translations: [Other specified disorders of bone density and structure, other site] Onset: 05-30-2022 Episodic Other connective tissue disease (3 sources) Neurogenic claudication; Translations: [Other symptoms and signs involving the nervous system] Onset: 01-15-2019 10-24-2022 Episodic Other ear and sense organ disorders (3 sources) Bilateral tinnitus; Translations: [Tinnitus, bilateral] Onset: 04-10-2021 10-24-2022 Episodic Other lower respiratory disease (20 sources) Restrictive lung disease; Translations: [Other disorders of lung] Onset: 08-24-2015 10-24-2022 Episodic Other lower respiratory disease (1 source) Other specified respiratory disorders; Translations: [OTHER SPEC RESPIRATORY DISORDERS] Onset: 12-28-2021 Episodic Other non-traumatic joint disorders (20 sources) Multiple joint pain; Translations: [Pain in unspecified joint] Onset: 03-28-2015 10-24-2022 Episodic Other nutritional; endocrine; and metabolic disorders (20 sources) Obesity; Translations: [Obesity, unspecified] Onset: 12-18-2018 Resolved: 01-14-2023 01-14-2023 Chronic Other screening for suspected conditions (not mental [...] unspecified; Translations: [PAIN UNSPECIFIED] Onset: 12-28-2021 Episodic Screening and history of mental health and substance abuse codes (20 sources) Stopped smoking; Translations: [Personal history of nicotine dependence] Onset: 03-31-2019 Resolved: 10-30-2022 04-23-2023 Episodic Spondylosis; intervertebral disc disorders; other back problems (20 sources) Spinal stenosis; Translations: [Spinal stenosis, site unspecified] Onset: 01-15-2019 Episodic Unclassified (1 source) CONTACT W/AND (SUSP) EXPOS COVID-19; Translations: [CONTACT W/AND (SUSP) EXPOS COVID-19] Onset: 12-27-2021 Results Test Name Value Interpretation Reference Range Facility XR ANKLE 3+ VIEWS RIGHTon XR ANKLE 3+ VIEWS RIGHT EXAM: XR ANKLE 3+ VIEWS RIGHT COMPARISON:None available HISTORY: Ankle pain since injury FINDINGS: 3 views of the ankle were obtained. FINDINGS: A tiny curvilinear ossific density projects along the inferior margin of the lateral malleolus and is suspicious for minimally displaced fracture given overlying soft tissue edema. Chronic appearing deformity of the distal aspect of the medial malleolus without definitive fracture. Ankle mortise is within normal limits. Talar dome is intact. Atherosclerotic vascular calcifications noted. IMPRESSION: A tiny curvilinear ossific density projecting along the inferior margin of the lateral malleolus is suspicious for minimally displaced fracture ELECTRONICALLY SIGNED BY: Diaz De Oliveira DO Normal Not Available XR Ankle - right 3 Viewson 0 05-06-2023 A tiny curvilinear ossific density projecting along the inferior margin of the lateral malleolus is suspicious for minimally displaced fracture ELECTRONICALLY SIGNED BY: Diaz De Oliveira DO IMAGING EXAM: XR ANKLE 3+ VIEWS RIGHT COMPARISON:None available HISTORY: Ankle pain since injury FINDINGS: 3 views of the ankle were obtained. FINDINGS: A tiny curvilinear ossific density projects along the inferior margin of the lateral malleolus and is suspicious for minimally displaced fracture given overlying soft tissue edema. Chronic appearing deformity of the distal aspect of the medial malleolus without definitive fracture. Ankle mortise is within normal limits. Talar dome is intact. Atherosclerotic vascular calcifications noted. IMAGING Diaz De Oliveira DO - 05/06/2023 EXAM: XR ANKLE 3+ VIEWS RIGHT COMPARISON:None available HISTORY: Ankle pain since injury FINDINGS: 3 views of the ankle were obtained. FINDINGS: A tiny curvilinear ossific density projects along the inferior margin of the lateral malleolus and is suspicious for minimally displaced fracture given overlying soft tissue edema. Chronic appearing deformity of the distal aspect of the medial malleolus without definitive fracture. Ankle mortise is within normal limits. Talar dome is intact. Atherosclerotic vascular calcifications noted. IMPRESSION: A tiny curvilinear ossific density projecting along the inferior margin of the lateral malleolus is suspicious for minimally displaced fracture ELECTRONICALLY SIGNED BY: Diaz De Oliveira DO [facility] [employer] Radiology Study observation (narrative) [facility] XR Ankle - right 3 ViewsOrde red By: Diaz De Oliveira on 05-06-2023 [facility] [employer] Work Phone: US carotid doppler BIon 12- US carotid doppler [facility] Main [place] [address] [place] [address] Ultrasound Report Signed Patient: Omer Santos MR#: [id number] 7 : 1950 Acct:[id number] Age/Sex: 72 / M ADM Date: 03/20/23 Loc: [facility] Room: Type: [facility] Attending Dr: Ney Roman MD Ordering Provider: [...] Ney Roman MD03/20/2023 11:06 AM Dictation Location: [place] [address] Tech: Malini Mosley Transcribed By: [facility] 03/20/231105 Dictated By: Ney Roman MD 03/20/231104 Signed By: 03/20/231105 [facility] Office Visiton 02-20-2023 Follow-up visit [id number] Omer Santos 1950 M Date Provider Department Center 02/20/2023 VADIM SANTOS [facility] Family History Problem Relation Age of Onset Coronary artery disease Father Other Father Heart attack Father Coronary artery disease Brother Heart attack Brother Other Brother Heart attack Paternal Grandfather Family Status - Relation Status Age at Father Brother Paternal Grandfather Level of Service:60220 [place] OFFICE/OUTPATIENT ESTABLISHED MOD MDM 30-39 MIN Reason for Visit and Comments: Follow-up [174469] - 6 months Normal [facility] .eGFRon 02-01-2023 Estimated GFR 24 mL/min/1.73m? Low >=60 [facility] Comment on above: Result Comment: [facility] Laboratories have implemented the eGFR [...] Performed By: #### . Manual Diff #### [address] [address] CBC w/ Diffon 02-01-2023 Erythrocyte distribution width (RBC) [Ratio] 16.2 % High 11.6-14.8 [facility] Comment on above: Performed By: #### C BC #### [place] [id number] Hematocrit (Bld) [Volume fraction] 29.5 % Low 41.0-53.0 [facility] Comment on above: Performed By: #### C BC #### [place] [id number] Hemoglobin (Bld) [Mass/Vol] 10.2 g/dL Low 13.5-17.5 [facility] Comment on above: Performed By: #### C BC #### [place] [id number] MCH (RBC) [Entitic mass] 30.2 pg Normal 27.0-35.0 [facility] Comment on above: Performed By: #### C BC #### [place] [id number] MCHC 34.5 % Normal 31.0-37.0 [facility] Comment on above: Performed By: #### C BC #### [place] [id number] MCV (RBC) [Entitic vol] 87.5 fL Normal 80.0-100.0 [facility] Comment on above: Performed By: #### C BC #### [place] [id number] Platelet 151 x10*3/mcL Normal 150-450 [facility] Comment on above: Performed By: #### C BC #### [address] [address] Platelet mean volume (Bld) [Entitic vol] 7.2 fL Normal 6.7-10.6 [facility] Comment on above: Performed By: #### C BC #### [address] [address] RBC 3.37 x10*6/mcL Low 4.30-5.80 [facility] Comment on above: Performed By: #### C BC #### [address] [address] WBC 10.6 x10*3/mcL Normal 4.5-11.0 [facility] Comment on above: Performed By: #### C BC #### [address] [address] CMPon 02-01-2023 Albumin [Mass/Vol] 3.3 g/dL Normal 3.2-4.9 [facility] Comment on above: Performed By: #### C [id number] #### [address] [address] Albumin/Globulin [Mass ratio] 1.2 {ratio} Normal 1.1-2.2 [facility] Comment on above: Performed By: #### C [id number] #### [address] [address] Alk Phos 100 IU/L High 32-91 [facility] Comment on above: Performed By: #### C [id number] #### [address] [address] ALT [Catalytic activity/Vol] 15 U/L Low 17-63 [facility] Comment on above: Performed By: #### C D:[id number] #### [address] [address] Anion gap [Moles/Vol] 11 mmol/L Normal 7-17 [facility] Comment on above: Performed By: #### C D:[id number] #### [address] [address] AST [Catalytic activity/Vol] 17 U/L Normal 15-41 [facility] Comment on above: Performed By: #### C D:[id number] #### [address] [address] Bili Total 0.5 mg/dL Normal 0.3-1.2 [facility] Comment on above: Performed By: #### C D:[id number] #### [address] [address] Calcium [Mass/Vol] 8.0 mg/dL Low 8.5-10.3 [facility] Comment on above: Performed By: #### C D:[id number] #### [address] [address] Chloride [Moles/Vol] 107 mmol/L Normal 98-110 [facility] Comment on above: Performed By: #### C D:[id number] #### [address] [address] CO2 [Moles/Vol] 20 mmol/L Low 22-32 [facility] Comment on above: Performed By: #### C D:[id number] #### [address] [address] Creatinine [Mass/Vol] 2.68 mg/dL High 0.61-1.24 [facility] Comment on above: Performed By: #### C D:[id number] #### [address] [address] Glucose [Mass/Vol] 268 mg/dL High 70-99 [facility] Comment on above: Performed By: #### C D:[id number] #### [address] [address] Potassium [Moles/Vol] 5.3 mmol/L High 3.4-4.8 [facility] Comment on above: Performed By: #### C D:[id number] #### [address] [address] Protein [Mass/Vol] 6.1 g/dL Low 6.5-8.1 [facility] Comment on above: Performed By: #### C D:[id number] #### [address] [address] Sodium [Moles/Vol] 133 mmol/L Normal 133-142 [facility] Comment on above: Performed By: #### C D:[id number] #### [address] [address] Urea nitrogen [Mass/Vol] 67 mg/dL High 8-26 [facility] Comment on above: Performed By: #### C D:[id number] #### [address] [address] Urea nitrogen/Creatinine [Mass ratio] 25.0 mg/mg High 10.0-20.0 [facility] Comment on above: Performed By: #### C D:[id number] #### [address] [address] Diff Autoon 02-01-2023 Baso Absolute 0.0 x10*3/mcL Normal 0.0-0.2 [facility] Comment on above: Performed By: #### . Manual Diff #### [address] [address] Basophils/100 WBC (Bld) 0.3 % Normal 0.0-1.2 [facility] Comment on above: Performed By: #### . Manual Diff #### [address] [address] Eos Absolute 0.0 x10*3/mcL Normal 0.0-0.4 [facility] Comment on above: Performed By: #### . Manual Diff #### [address] [address] Eosinophils/100 WBC (Bld) 0.0 % Normal 0.0-6.1 [facility] Comment on above: Performed By: #### . Manual Diff #### [address] [address] Lymph Absolute 0.3 x10*3/mcL Low 1.0-4.8 [facility] Comment on above: Performed By: #### . Manual Diff #### [address] [address] Lymphocytes/100 WBC (Bld) 3.2 % Low 27.2-40.8 [facility] Comment on above: Performed By: #### . Manual Diff #### [address] [address] Cross Absolute 0.2 x10*3/mcL Low 0.3-1.1 [facility] Comment on above: Performed By: #### . Manual Diff #### [address] [address] Monocytes/100 WBC (Bld) 2.1 % Low 4.7-13.9 [facility] Comment on above: Performed By: #### . Manual Diff #### [address] [address] Neutro Absolute 10.0 x10*3/mcL High 1.8-7.7 [facility] Comment on above: Performed By: #### . Manual Diff #### [address] [address] Neutro Auto 94.4 % High 47.2-70.8 [facility] Comment on above: Performed By: #### . Manual Diff #### [address] [address] Diff Yoli 02-01-2023 Anisocyte Slight Normal [facility] Comment on above: Performed By: #### . Manual Diff #### [address] [address] Band form neutrophils/100 WBC (Bld) 0 % Normal 0-5 [facility] Comment on above: Performed By: #### . Manual Diff #### [address] [address] Basophils/100 WBC (Bld) 0 % Normal 0-3 [facility] Comment on above: Performed By: #### . Manual Diff #### [address] [address] Eosinophils/100 WBC (Bld) 0 % Normal 0-7 [facility] Comment on above: Performed By: #### . Manual Diff #### [address] [address] Lymphocytes/100 WBC (Bld) 2 % Low 14-42 [facility] Comment on above: Performed By: #### . Manual Diff #### [address] [address] Monocytes/100 WBC (Bld) 2 % Normal 1-11 [facility] Comment on above: Performed By: #### . Manual Diff #### [address] [address] Myelo Man 1 % High 0-0 [facility] Comment on above: Performed By: #### . Manual Diff #### [address] [address] Platelet estimate Adequate Normal [facility] Comment on above: Performed By: #### . Manual Diff #### [address] [address] Segs Man 95 % High 49-79 [facility] Comment on above: Performed By: #### . Manual Diff #### [address] [address] Hgb A1con 02-01-2023 Glucose [Mass/Vol] 114 mg/dL Normal 68-114 [facility] Comment on above: Result Comment: Math ematical Calc approx. The mean gluc equivalency of A1c Performed By: #### H BA1C #### [address] [address] Hgb A1c 5.6 % A1c Normal 4.0-5.6 [facility] Comment on above: Result Comment: Refe rence Range: 4.0 - 5.6 % Normal 5.7 - 6.4 % Pre-Diabetes > 6.5 % Diabetes Performed By: #### H BA1C #### [address] [address] Inpatient Clinical Summaryon 02-01-2023 Inpatient Clinical Summary [place] [address]30 [place] [address] [address] Clinical Summary Person Information Name: Omer Santos Age: 72 Years : 1950 Sex: Male PCP: Ruben Luo MD Marital Status: Single Phone: PCP: [phone] Race: White Ethnicity: Not or Language: Slovak Visit Id: Visit Reason: Speciality: Acuity: Enc Type: Observation Med Service: Surgery Arrival: 01/31/2023 08:47:46 Discharge: Dispo Type: Address: [address] [place] [phone] Diagnosis: Discharged To: Home Treatments: Devices/Equipment: Professional [...] range between ( 27.2 and 40.8 ) Cross Auto: 2.1 % -- Normal range between [...] range between ( 41.0 and 53.0 ) Cross Absolute: 0.2 x10 MCH: 30.2 pg -- [...] br/min Diet Diet: Feeding Tolerance: Appetite: Good Onrth Ass (more content not included)... Normal [facility] Magnesiumon 02-01-2023 Magnesium [Mass/Vol] 1.7 mg/dL Normal 1.7-2.4 [facility] Comment on above: Performed By: #### . Manual Diff #### [facility] [address] [place] [address] Orthopedic Progress Noteon 1 Orthopedic Progress Note [...] BP at pre-op baseline) Electronically signed by Halleo-Gabe Bernal MD, Jr 02/01/23 07:03 EDT Normal [facility] POC Glucose Randomon 023 Glucose [Mass/Vol] 281 mg/dL High 70-99 [facility] Comment on above: Performed By: #### . Manual Diff #### [address] [address] Glucose [Mass/Vol] 352 mg/dL High 70-99 [facility] Comment on above: Performed By: #### C D:[id number] #### [address] [address] Phosphoruson 02-01-2023 Phosphate [Mass/Vol] 4.8 mg/dL High 2.5-4.6 [facility] Comment on above: Performed By: #### . Manual Diff #### [address] [address] Potassiumon 02-01-2023 Potassium [Moles/Vol] 5.6 mmol/L High 3.4-4.8 [facility] Comment on above: Performed By: #### C D:[id number] #### [address] [address] .eGFRon 01-31-2023 Estimated GFR 26 mL/min/1.73m? Low >=60 [facility] Comment on above: Order Comment: Order added by Discern rule Result Comment: [facility] Laboratories have implemented the eGFR [...] years Performed By: #### E GFR #### [address] [address] Basic Metabolic Profileon Anion gap [Moles/Vol] 14 mmol/L Normal 7-17 [facility] Comment on above: Performed By: #### . Manual Diff #### [address] [address] Calcium [Mass/Vol] 9.0 mg/dL Normal 8.5-10.3 [facility] Comment on above: Performed By: #### . Manual Diff #### [address] [address] Chloride [Moles/Vol] 111 mmol/L High 98-110 [facility] Comment on above: Performed By: #### . Manual Diff #### [address] [address] CO2 [Moles/Vol] 21 mmol/L Low 22-32 [facility] Comment on above: Performed By: #### . Manual Diff #### [address] [address] Creatinine [Mass/Vol] 2.56 mg/dL High 0.61-1.24 [facility] Comment on above: Performed By: #### . Manual Diff #### [address] [address] Glucose [Mass/Vol] 154 mg/dL High 70-99 [facility] Comment on above: Performed By: #### . Manual Diff #### [address] [address] Potassium [Moles/Vol] 5.7 mmol/L High 3.4-4.8 [facility] Comment on above: Performed By: #### . Manual Diff #### [address] [address] Sodium [Moles/Vol] 140 mmol/L Normal 133-142 [facility] Comment on above: Performed By: #### . Manual Diff #### [address] [address] Urea nitrogen [Mass/Vol] 67 mg/dL High 8-26 [facility] Comment on above: Performed By: #### . Manual Diff #### [address] [address] Urea nitrogen/Creatinine [Mass ratio] 26.2 mg/mg High 10.0-20.0 [facility] Comment on above: Performed By: #### . 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 Gabe Harris Date of [...] (Cr 2.5, no baseline labs available, Nephrology [facility]) HTN, BP stable Anemia of chronic disease/Iron [...] GFR 20s . Followed by Nephrology at [facility] in [place]. Prior history of hyperkalemia, on low K/renal [...] Oral, BID (more content not included)... Normal [facility] XR Spine Cervical 2 or 3 [...] Electronically Signed in Other Vendor System) Normal [facility] MRSA, DNA, Nasalon MRSA, DNA, Nasal POSITIVE: MRSA DNA detected by nucleic acid amplification. Abnormal NEG [facility] Comment on above: Result Comment: Results should be used as an adjunct to nosocomial control efforts to identify patients needing enhanced precautions. The test is not intended to identify patients with staphylococcal infections. Results should not be used to guide or monitor treatment for MRSA infections. Performed By: #### B MP, PT, PTT, CBC #### [facility] [address] [place] [address] [place] [address] Hand Cell Tuber: Dave Dawn MD #### GLYHGB #### [facility] [employer] [address] [place] [address] [id number] Hand Cell Tuber: Faustino Patel MD #### MRSANO #### [facility] [address] [place], [place] [phone] Hand Cell Tuber: Faustino Patel MD [facility] [address] [place] [address] Hand Cell Tuber: MD Kristin Gramajo 01-11-2023 aPTT Coag (Bld) [Time] 29.2 s Normal 26.8-34.8 [facility] Comment on above: Result Comment: IV Heparin Therapy Range: 62.0-94.0 Performed By: #### B MP, PT, PTT, CBC #### [facility] [address] [place], [place] [phone] Hand Cell Tuber: Dave Dawn MD #### GLYHGB #### [address] [address] Hand Cell Tuber: Faustino Patel MD #### MRSANO #### [address] [address] Hand Cell Tuber: Faustino Patel MD [address] [place], [place] [phone] Hand Cell Tuber: Dave Dawn MD Basic Metabolic Profon 01-11 Anion gap [Moles/Vol] 11 mmol/L Normal 9-17 [facility] Comment on above: Performed By: #### B MP, PT, PTT, CBC #### [address] [place], [place] [phone] Hand Cell Tuber: Dave Dawn MD #### GLYHGB #### [address] [address] Hand Cell Tuber: Faustino Patel MD #### MRSANO #### [address] [address] Hand Cell Tuber: Faustino Patel MD [address] [place], [place] [phone] Hand Cell Tuber: Dave Dawn MD BUN/CRE Ratio 23 High 9-20 [facility] Comment on above: Performed By: #### B MP, PT, PTT, CBC #### [facility] [address] [place], [place] [phone] Hand Cell Tuber: Dave Dawn MD #### GLYHGB #### [facility] [address] [place] [address] Hand Cell Tuber: Faustino Patel MD #### MRSANO #### [facility] [address] [place] [address] Hand Cell Tuber: Faustino Patel MD [address] [place], [place] [phone] Hand Cell Tuber: Dave Dawn MD Calcium [Mass/Vol] 9.3 mg/dL Normal 8.6-10.4 [facility] Comment on above: Performed By: #### B MP, PT, PTT, CBC #### [address] [place], [place] [phone] Hand Cell Tuber: Dave Dawn MD #### GLYHGB #### [address] [address] Hand Cell Tuber: Faustino Patel MD #### MRSANO #### [address] [address] Hand Cell Tuber: Faustino Patel MD [address] [place], [place] [phone] Hand Cell Tuber: Dave Dawn MD Chloride [Moles/Vol] 107 mmol/L Normal 98-107 [facility] Comment on above: Performed By: #### B MP, PT, PTT, CBC #### [address] [place] [address] Hand Cell Tuber: Dave Dawn MD #### GLYHGB #### [facility] [address] [place] [address] Hand Cell Tuber: Faustino Patel MD #### MRSANO #### [facility] [address] [place] [address] Hand Cell Tuber: Faustino Patel MD [address] [place] [address] Hand Cell Tuber: Dave Dawn MD CO2 [Moles/Vol] 24 mmol/L Normal 20-31 [facility] Comment on above: Performed By: #### B MP, PT, PTT, CBC #### [facility] [address] [place] [address] Dr. [place], [place] [phone] Hand Cell Tuber: Dave Dawn MD #### GLYHGB #### [facility] [address] [place] [address] Hand Cell Tuber: Faustino Patel MD #### MRSANO #### [facility] [address] [place] [address] Hand Cell Tuber: Faustino Patel MD [address] [place], [place] [phone] Hand Cell Tuber: Dave Dawn MD Creatinine [Mass/Vol] 3.3 mg/dL High 0.7-1.2 [facility] Comment on above: Performed By: #### B MP, PT, PTT, CBC #### [address] [place], [place] 1428383 Hand Cell Tuber: Dave Dawn MD #### GLYHGB #### [facility] [address] [place] [address] Hand Cell Tuber: Faustino Patel MD #### MRSANO #### [facility] [address] [place] [address] Hand Cell Tuber: Faustino Patel MD [facility] [address] [place] [address] [place], [place] [phone] Hand Cell Tuber: Dave Dawn MD GFR/1.73 sq M.predicted among non-blacks MDRD (S/P/Bld) [Vol rate/Area] 19 mL/min/{1.73_m2} Low >60 [facility] Comment on above: Result Comment: These [...] #### B MP, PT, PTT, CBC #### [address] [place] [address] Hand Cell Tuber: Dave Dawn MD #### GLYHGB #### [address] [address] Hand Cell Tuber: Faustino Patel MD #### MRSANO #### [address] [address] Hand Cell Tuber: Faustino Patel MD [address] [place] [address] Hand Cell Tuber: Dave Dawn MD Glucose [Mass/Vol] 61 mg/dL Low 70-99 [facility] Comment on above: Performed By: #### B MP, PT, PTT, CBC #### [address] [place] [address] Hand Cell Tuber: Dave Dawn MD #### GLYHGB #### [address] [address] Hand Cell Tuber: Faustino Patel MD #### MRSANO #### [address] [address] Hand Cell Tuber: Faustino Patel MD [address] [place] [address] Hand Cell Tuber: Dave Dawn MD Potassium [Moles/Vol] 4.9 mmol/L Normal 3.7-5.3 [facility] Comment on above: Performed By: #### B MP, PT, PTT, CBC #### [address] [place] [address] Hand Cell Tuber: Dave Dawn MD #### GLYHGB #### [facility] [address] [place] [address] Hand Cell Tuber: Faustino Patel MD #### MRSANO #### [facility] [address] [place] [address] Hand Cell Tuber: Faustino Patel MD [facility] [address] [place] [address] Dr. [place], [place] [phone] Hand Cell Tuber: Dave Dawn MD Sodium [Moles/Vol] 142 mmol/L Normal 135-144 [facility] Comment on above: Performed By: #### B MP, PT, PTT, CBC #### [address] [place], [place] [phone] Hand Cell Tuber: Dave Dawn MD #### GLYHGB #### [facility] [address] [place] [address] Hand Cell Tuber: Faustino Patel MD #### MRSANO #### [facility] [address] [place] [address] Hand Cell Tuber: Faustino Patel MD [address] [place], [place] [phone] Hand Cell Tuber: Dave Dawn MD Urea nitrogen [Mass/Vol] 75 mg/dL High 8-23 [facility] Comment on above: Performed By: #### B MP, PT, PTT, CBC #### [address] [place], [place] [phone] Hand Cell Tuber: Dave Dawn MD #### GLYHGB #### [facility] [address] [place] [address] Hand Cell Tuber: Faustino Patel MD #### MRSANO #### [facility] [address] [place] [address] Hand Cell Tuber: Faustino Patel MD [facility] [address] [place], [place] [phone] Hand Cell Tuber: Dave Dawn MD CBCon 01-11-2023 Erythrocyte distribution width (RBC) [Ratio] 13.3 % Normal 11.8-14.4 [facility] Comment on above: Performed By: #### B MP, PT, PTT, CBC #### [address] [place], [place] [phone] Hand Cell Tuber: Dave Dawn MD #### GLYHGB #### [address] [address] Hand Cell Tuber: Faustino Patel MD #### MRSANO #### [address] [address] Hand Cell Tuber: Faustino Patel MD [address] [place] [phone] Hand Cell Tuber: Dave Dawn MD Hematocrit (Bld) [Volume fraction] 28.9 % Low 40.7-50.3 [facility] [facility] Comment on above: Performed By: #### B MP, PT, PTT, CBC #### [address] [place], [place] [id number] Hand Cell Tuber: Dave Dawn MD #### GLYHGB #### [address] [address] [employer] Cell Tuber: Faustino Patel MD #### MRSANO #### [facility] [address] [place] [address] [employer] Tuber: Faustino Patel MD [address] [place] [phone] Hand Cell Tuber: Dave Dawn MD Hemoglobin (Bld) [Mass/Vol] 9.6 g/dL Low 13.0-17.0 [facility] Comment on above: Performed By: #### B MP, PT, PTT, CBC #### [address] [place], [place] [id number] Hand Cell Tuber: Dave Dawn MD #### GLYHGB #### [address] [address] Hand Cell Tuber: Faustino Patel MD #### MRSANO #### [address] [address] [employer] Cell Tuber: Faustino Patel MD [address] [place], [place] [id number] Hand Cell Tuber: Dave Dawn MD MCH (RBC) [Entitic mass] 30.0 pg Normal 25.2-33.5 [facility] Comment on above: Performed By: #### B MP, PT, PTT, CBC #### [address] [place] [phone] Hand Cell Tuber: Dave Dawn MD #### GLYHGB #### [address] [address] Hand Cell Tuber: Faustino Patel MD #### MRSANO #### [address] [address] Hand Cell Tuber: Faustino Patel MD [address] [place] [phone] Hand Cell Tuber: Dave Dawn MD MCHC (RBC) [Mass/Vol] 33.2 g/dL Normal 28.4-34.8 [facility] Comment on above: Performed By: #### B MP, PT, PTT, CBC #### [address] [place], [place] 6305783 Hand Cell Tuber: Dave Dawn MD #### GLYHGB #### [address] [address] Hand Cell Tuber: Faustino Patel MD #### MRSANO #### [address] [address] Hand Cell Tuber: Faustino Patel MD [address] [place] [phone] Hand Cell Tuber: Dave Dawn MD MCV (RBC) [Entitic vol] 90.3 fL Normal 82.6-102.9 [facility] Comment on above: Performed By: #### B MP, PT, PTT, CBC #### [address] [place] [phone] Hand Cell Tuber: Dave Dawn MD #### GLYHGB #### [address] [address] Hand Cell Tuber: Faustino Patel MD #### MRSANO #### [address] [address] Hand Cell Tuber: Faustino Patel MD [address] [place] [address] Hand Cell Tuber: Dave Dawn MD NRBC Automated 0.0 per 100 WBC Normal 0.0 [facility] Comment on above: Performed By: #### B MP, PT, PTT, CBC #### [address] [place] [phone] Hand Cell Tuber: Dave Dawn MD #### GLYHGB #### [address] [address] Hand Cell Tuber: Faustino Patel MD #### MRSANO #### [address] [address] Hand Cell Tuber: Faustino Patel MD [address] [place] [phone] Hand Cell Tuber: Dave Dawn MD Platelet mean volume (Bld) [Entitic vol] 8.6 fL Normal 8.1-13.5 [facility] Comment on above: Performed By: #### B MP, PT, PTT, CBC #### [address] [place] [address] Hand Cell Tuber: Dave Dawn MD #### GLYHGB #### [facility] [address] [place] [address] Hand Cell Tuber: Faustino Patel MD #### MRSANO #### [facility] [address] [place] [address] Hand Cell Tuber: Faustino Patel MD [address] [place] [address] Hand Cell Tuber: Dave Dawn MD Platelets (Bld) [#/Vol] 191 10*3/uL Normal 138-453 [facility] Comment on above: Performed By: #### B MP, PT, PTT, CBC #### [address] [place] [address] Hand Cell Tuber: Dave Dawn MD #### GLYHGB #### [address] [address] Hand Cell Tuber: Faustino Patel MD #### MRSANO #### [facility] [address] [place] [address] Hand Cell Tuber: Faustino Patel MD [address] [place] [address] Hand Cell Tuber: Dave Dawn MD RBC (Bld) [#/Vol] 3.20 10*6/uL Low 4.21-5.77 [facility] Comment on above: Performed By: #### B MP, PT, PTT, CBC #### [address] [place] [address] Hand Cell Tuber: Dave Dawn MD #### GLYHGB #### [address] [address] Hand Cell Tuber: Faustino Patel MD #### MRSANO #### [facility] [address] [place] [address] Hand Cell Tuber: Faustino Patel MD [facility] [address] [place] [address] [place] [address] Hand Cell Tuber: Dave Dawn MD WBC (Bld) [#/Vol] 7.4 10*3/uL Normal 3.5-11.3 [facility] Comment on above: Performed By: #### B MP, PT, PTT, CBC #### [facility] [address] [place] [address] [place] [address] Hand Cell Tuber: Dave Dawn MD #### GLYHGB #### [facility] [address] [place] [address] Hand Cell Tuber: Faustino Patel MD #### MRSANO #### [address] [address] Hand Cell Tuber: Faustino Patel MD [address] [place] [address] Hand Cell Tuber: Dave Dawn MD Hemoglobin A1Con 01-11-2023 Glucose [Mass/Vol] 80 mg/dL Normal [facility] Comment on above: Result Comment: The ADA and AACC recommend providing the estimated average glucose result to permit better patient understanding of their HBA1c result. Performed By: #### B MP, PT, PTT, CBC #### [address] [place] [address] Hand Cell Tuber: Dave Dawn MD #### GLYHGB #### [facility] [address] [place] [address] Hand Cell Tuber: Faustino Patel MD #### MRSANO #### [facility] [address] [place] [address] Hand Cell Tuber: Faustino Patel MD [address] [place] [address] Hand Cell Tuber: Dave Dawn MD HbA1c (Bld) [Mass fraction] 4.4 % Normal 4.0-6.0 [facility] Comment on above: Performed By: #### B MP, PT, PTT, CBC #### [facility] [address] [place] [address] Dr[address] [place], [place] [phone] Hand Cell Tuber: Dave Dawn MD #### GLYHGB #### [facility] [address] [place] [address] Hand Cell Tuber: Faustino Patel MD #### MRSANO #### [address] [address] Hand Cell Tuber: Faustino Patel MD [address] [place] [address] Hand Cell Tuber: Dave Dawn MD MRSA, DNA, Nasalon 3 Specimen Description .NASAL SWAB Normal [facility] Comment on above: Performed By: #### B MP, PT, PTT, CBC #### [facility] [address] [place] [address] [place] [address] Hand Cell Tuber: Dave Dawn MD #### GLYHGB #### [address] [address] Hand Cell Tuber: Faustino Patel MD #### MRSANO #### [address] [address] Hand Cell Tuber: Faustino Patel MD [facility] [address] [place] [address] [place] [address] Hand Cell Tuber: Dave Dawn MD PTon 9 INR Coag (PPP) [Relative time] 1.2 {INR} Normal [facility] Comment on above: Result Comment: Therapeutic Range: Moderate Anticoagulant Intensity: INR = 2.0-3.0 High Anticoagulant Intensity: INR = 2.5-3.5 Performed By: #### B MP, PT, PTT, CBC #### [address] [place] [address] Hand Cell Tuber: Dave Dawn MD #### GLYHGB #### [address] [address] Hand Cell Tuber: Faustino Patel MD #### MRSANO #### [address] [address] Hand Cell Tuber: Faustino Patel MD [address] [place], [place] 9[address]83 Hand Cell Tuber: Dave Dawn MD PT Coag (PPP) [Time] 15.2 s High 11.9-14.8 [facility] Comment on above: Performed By: #### B MP, PT, PTT, CBC #### [address] [place], [place] [phone] Hand Cell Tuber: Dave Dawn MD #### GLYHGB #### [address] [address] Hand Cell Tuber: Fasutino Patel MD #### MRSANO #### [address] [address] Hand Cell Tuber: Faustino Patel MD [address] [place] [phone] Hand Cell Tuber: Dave Dawn MD XR CHEST (2 VW)on [...] MD Signed by: Lalo Garcia MD 01/11/23 CC Recipients: Ruben Luo MD - Fax Vadim Veronica MD - Fax Final result Normal [facility] Provider Letteron 01-09-2023 Provider Letter Ruben Luo MD [address] [place] [address] Re: Omer Santos Date of Visit: 01/08/2023 [...] Head & Neck [facility] [place] [address] Tel.: [phone] Email: [email or web address] Providers: The following document(s) were included in the letter: January 08, 2023 15:00:00 EDT - (01/08/2023) ENT Office Visit Note Normal [facility] Otolaryngology Office/Clinic Noteon 01-08-2023 Otolaryngology Office/Clinic [...] No hoarseness appreciated. Procedure: Flexible fiberoptic laryngoscopy (01386) Preoperative diagnosis: History of right CEA, evaluate [...] separately billable services. New patient level 3 [id number] added for flexible nasolaryngoscopy Physician Comments This [...] 40 mg (more content not included)... Normal [facility] CT CERVICAL SPINE WO CONTRAS Ton 12-29-2022 [...] Pascale Albarado MD 12/29/22 Final result Normal [facility] US carotid doppler BIon 05- US carotid doppler BI [facility] Main [place] [address] [place] [address] Ultrasound Report Signed Patient: Omer Santos MR#: [id number] 7 : 1950 Acct:[id number] Age/Sex: 72 / M ADM Date: 08/20/22 Loc: [facility] Room: Type: [facility] Attending Dr: Ney Roman MD Ordering [...] Ney Roman MD08/22/2022 3:32 PM Dictation Location: [place] [address] Tech: Laura Romeml Transcribed By: SENDY 08/22/22 153 Dictated By: Ney Roman MD 08/22/22 153 Signed By: 08/22/22 153 [facility] FERRITINon 08-10-2022 Ferritin [Mass/Vol] 214.0 ng/mL Normal 26.0-388.0 [facility] Comment on above: Performed By: #### P THINT #### [facility] [address] [place] [address] Dr. Sarah Sánchez HEMOGRAM AND PLATELon 2022 Hematocrit (Bld) [Volume fraction] 24.3 % Critically low 42.0-54.0 [facility] Comment on above: Performed By: #### C VDTBH #### [facility] [address] [place] [address] Dr. Sarah Sánchez Hemoglobin (Bld) [Mass/Vol] 8.0 g/dL Critically low 14.0-18.0 [facility] Comment on above: Performed By: #### C VDTBH #### [facility] [address] [place] [address] Dr. Sarah Sánchez MCH (RBC) [Entitic mass] 29.7 pg Normal 25.9-34.0 [facility] Comment on above: Performed By: #### C VDTBH #### [facility] [address] [place] [address] Dr. Sarah Sánchez MCHC (RBC) [Mass/Vol] 32.9 g/dL Normal 29.9-35.2 [facility] Comment on above: Performed By: #### C VDTBH #### [facility] [address] [place] [address] Dr. Sarah Sánchez MCV (RBC) [Entitic vol] 90.3 fL Normal 80.0-94.0 [facility] Comment on above: Performed By: #### C VDTBH #### [facility] [address] [place] [address] Dr. Sarah Sánchez PLT 215 103/ul Normal 150-450 [facility] Comment on above: Performed By: #### C VDTBH #### [facility] [address] [place] [address] Dr. Sarah Sánchez RBC 2.69 106/ul Critically low 4.70-6.10 [facility] Comment on above: Performed By: #### C VDTBH #### [facility] [address] [place] [address] [address] Sarah Sánchez WBC 7.3 103/ul Normal 4.0-11.0 [facility] Comment on above: Performed By: #### C VDTBH #### [facility] [address] [place] [address] [address] Sarah Sánchez IRON AND TIBCon 08-10-2022 % SATURATION 23.5 % Normal [facility] Comment on above: Performed By: #### P THINT #### [facility] [address] [place] [address] [address] Sarah Sánchez Iron [Mass/Vol] 54.0 ug/dL Critically low 65.0-175.0 [facility] Comment on above: Performed By: #### P THINT #### [facility] [address] [place] [address] Dr. Sarah Sánchez TIBC DIRECT 230.0 ug/dL Critically low 250.0-450.0 [facility] Comment on above: Performed By: #### P THINT #### [facility] [address] [place] [address] Dr. Sarah Sánchez MAGNESIUMon 08-10-2022 Magnesium [Mass/Vol] 1.7 mg/dL Critically low 1.8-2.4 [facility] Comment on above: Performed By: #### C VDTBH #### [facility] [address] [place] [address] [address] Sarah Sánchez RENAL FUNCTION PANELon 08-10 Albumin [Mass/Vol] 2.7 g/dL Critically low 3.4-5.0 [facility] Comment on above: Performed By: #### C VDTBH #### [facility] [address] [place] [address] Dr. Sarah Sánchez Calcium [Mass/Vol] 8.3 mg/dL Critically low 8.5-10.1 [facility] Comment on above: Performed By: #### C VDTBH #### [facility] [address] [place] [address] Dr. Sarah Sánchez Chloride [Moles/Vol] 106 mmol/L Normal 98-107 [facility] Comment on above: Performed By: #### C VDTBH #### [facility] [address] [place] [address] Dr. Sarah Sánchez CO2 [Moles/Vol] 29.6 mmol/L Normal 21.0-32.0 [facility] Comment on above: Performed By: #### C VDTBH #### [facility] [address] [place] [address] Dr. Sarah Sánchez Creatinine [Mass/Vol] 2.41 mg/dL Critically high 0.70-1.30 [facility] Comment on above: Performed By: #### C VDTBH #### [facility] [address] [place] [address] Dr. Sarah Sánchez EGFR-AF WALLISIAN 32 mL/min/1.73m2 Critically low >=60 [facility] Comment on above: Performed By: #### C VDTBH #### [facility] [address] [place] [address] Dr. Sarah Sánchez EGFR-NON AF WALLISIAN 27 mL/min/1.73m2 Critically low >=60 [facility] Comment on above: Performed By: #### C VDTBH #### [facility] [address] [place] [address] Dr. Sarah Sánchez Glucose [Mass/Vol] 111 mg/dL Critically high 74-106 [facility] Comment on above: Performed By: #### C VDTBH #### [facility] [address] [place] [address] Dr. Sarah Sánchez Phosphate [Mass/Vol] 4.6 mg/dL Normal 2.6-4.7 [facility] Comment on above: Performed By: #### C VDTBH #### [facility] [address] [place] [address] Dr. Sarah Sánchez Potassium [Moles/Vol] 5.2 mmol/L Critically high 3.5-5.1 [facility] Comment on above: Performed By: #### C VDTBH #### [facility] [address] [place] [address] Dr. Sarah Sánchez Sodium [Moles/Vol] 142 mmol/L Normal 136-145 [facility] Comment on above: Performed By: #### C VDTBH #### [facility] [address] [place] [address] Dr. Sarah Sánchez Urea nitrogen [Mass/Vol] 31.0 mg/dL Critically high 7.0-18.0 [facility] Comment on above: Performed By: #### C VDTBH #### [facility] [address] [place] [address] Dr. Sarah Sánchez CBC AUTO DIFFon 08-08-2022 BASO # 0.1 103/ul Normal 0.0-0.1 [facility] Comment on above: Performed By: #### H BSANS #### [facility] [address] [place] [address] Dr. Sarah Sánchez Basophils/100 WBC (Bld) 0.6 % Normal 0.2-2.0 [facility] Comment on above: Performed By: #### H BSANS #### [facility] [address] [place] [address] Dr. Sarah Sánchez EO # 0.5 103/ul Normal 0.0-0.7 [facility] Comment on above: Performed By: #### H BSANS #### [facility] [address] [place] [address] Dr. Sarah Sánchez Eosinophils/100 WBC (Bld) 6.1 % Normal 0.9-7.0 [facility] Comment on above: Performed By: #### H BSANS #### [facility] [address] [place] [address] Dr. Sarah Sánchez Erythrocyte distribution width (RBC) [Ratio] 14.0 % Normal 11.0-15.0 [facility] Comment on above: Performed By: #### H BSANS #### [facility] [address] [place] [address] Dr. Sarah Sánchez Hematocrit (Bld) [Volume fraction] 23.9 % Critically low 42.0-54.0 [facility] Comment on above: Performed By: #### H BSANS #### [facility] [address] [place] [address] [address] Sarah Sánchez Hemoglobin (Bld) [Mass/Vol] 7.9 g/dL Critically low 14.0-18.0 [facility] Comment on above: Performed By: #### H BSANS #### [facility] [address] [place] [address] [address] Sarah Sánchez IG # 0.08 10e3/ul Critically high 0.00-0.03 [facility] Comment on above: Performed By: #### H BSANS #### [facility] [address] [place] [address] Dr. Sarah Sánchez IG % 0.9 % Critically high 0.0-0.5 [facility] Comment on above: Performed By: #### H BSANS #### [facility] [address] [place] [address] Dr. Sarah Sánchez LYMPH # 1.1 103/ul Critically low 1.2-3.8 [facility] Comment on above: Performed By: #### H BSANS #### [facility] [address] [place] [address] Dr. Sarah Sánchez Lymphocytes/100 WBC (Bld) 11.9 % Critically low 20.5-60.0 [facility] Comment on above: Performed By: #### H BSANS #### [facility] [address] [place] [address] Dr. Sarah Sánchez MANUAL DIFF REQ NO Normal [facility] Comment on above: Performed By: #### H BSANS #### [facility] [address] [place] [address] Dr. Sarah Sánchez MCH (RBC) [Entitic mass] 30.4 pg Normal 25.9-34.0 [facility] Comment on above: Performed By: #### H BSANS #### [facility] [address] [place] [address] Dr. Sarah Sánchez MCHC (RBC) [Mass/Vol] 33.1 g/dL Normal 29.9-35.2 [facility] Comment on above: Performed By: #### H BSANS #### [facility] [address] [place] [address] [address] Sarah Sánchez MCV (RBC) [Entitic vol] 91.9 fL Normal 80.0-94.0 [facility] Comment on above: Performed By: #### H BSANS #### [facility] [address] [place] [address] [address] Sarah Sánchez MONO # 0.5 103/ul Normal 0.3-0.8 [facility] Comment on above: Performed By: #### H BSANS #### [facility] [address] [place] [address] Dr. Sarah Sánchez Monocytes/100 WBC (Bld) 5.5 % Normal 1.7-12.0 [facility] Comment on above: Performed By: #### H BSANS #### [facility] [address] [place] [address] Dr. Sarah Sánchez NEUT # 6.6 103/ul Critically high 1.4-6.5 [facility] Comment on above: Performed By: #### H BSANS #### [facility] [address] [place] [address] Dr. Sarah Sánchez Neutrophils/100 WBC (Bld) 75.0 % Normal 43.0-75.0 [facility] Comment on above: Performed By: #### H BSANS #### [facility] [address] [place] [address] Dr. Sarah Sánchez Platelet mean volume (Bld) [Entitic vol] 8.5 fL Critically low 9.5-13.5 [facility] Comment on above: Performed By: #### H BSANS #### [facility] [address] [place] [address] Dr. Sarah Sánchez PLT 245 103/ul Normal 150-450 [facility] Comment on above: Performed By: #### H BSANS #### [facility] [address] [place] [address] Dr. Sarah Sánchez RBC 2.60 106/ul Critically low 4.70-6.10 [facility] Comment on above: Performed By: #### H BSANS #### [facility] [address] [place], [place] [address] [address]. Sarah Sánchez WBC 8.8 103/ul Normal 4.0-11.0 [facility] Comment on above: Performed By: #### H BSANS #### [facility] [address] [place], [place] [address] Dr. Sarah Sánchez ANION GAPon 07-26-2022 Anion gap [Moles/Vol] 13.0 mmol/L Normal 8.0-16.0 [facility] Comment on above: Result Comment: ANIO N GAP = Sodium -(Chloride + CO2) Performed By: #### P OCGL #### [facility] [address] [place] [address] Anion Gapon 07-26-2022 Anion gap [Moles/Vol] 13.0 mmol/L 8.0 - 16.0 meq/L [facility] Comment on above: ANION GAP = Sodium - (Chloride + CO2) Performed at [facility] [address] [place] [address] BASIC METABOL PANELon 2022 Calcium [Mass/Vol] 7.7 mg/dL Low 8.5-10.5 [facility] Comment on above: Performed By: #### P OCGL #### [facility] [address] [place] [address] Chloride [Moles/Vol] 102 mmol/L Normal 98-111 [facility] Comment on above: Performed By: #### P OCGL #### [facility] [address] [place] [address] CO2 [Moles/Vol] 19 mmol/L Low 23-33 [facility] Comment on above: Performed By: #### P OCGL #### [facility] [address] [place] [address] Creatinine [Mass/Vol] 2.4 mg/dL High 0.4-1.2 [facility] Comment on above: Performed By: #### P OCGL #### [facility] [address] [place] [address] Glucose [Mass/Vol] 205 mg/dL High 70-108 [facility] Comment on above: Performed By: #### P OCGL #### [facility] [address] [place] [address] Potassium [Moles/Vol] 4.8 mmol/L Normal 3.5-5.2 [facility] Comment on above: Performed By: #### P OCGL #### [facility] [address] [place] [address] Sodium [Moles/Vol] 134 mmol/L Low 135-145 [facility] Comment on above: Performed By: #### P OCGL #### [facility] [address] [place] [address] Urea nitrogen [Mass/Vol] 65 mg/dL High 7-22 [facility] Comment on above: Performed By: #### P OCGL #### [facility] [address] [place] [address] Basic metabolic 2000 panelon 07-26-2022 Calcium [Mass/Vol] 7.7 mg/dL Low 8.5 - 10. 5 mg/dL [facility] Comment on above: Performed at [facility] [address] [place] [address] Chloride [Moles/Vol] 102 mmol/L 98 - 11 1 meq/L [facility] CO2 [Moles/Vol] 19 mmol/L Low 23 - 33 meq/L [facility] Creatinine [Mass/Vol] 2.4 mg/dL High 0.4 - 1.2 mg/dL [employer] [facility] Glucose [Mass/Vol] 205 mg/dL High 70 - 108 mg/dL [facility] Potassium [Moles/Vol] 4.8 mmol/L 3.5 - 5.2 meq/L [facility] Sodium [Moles/Vol] 134 mmol/L Low 135 - 145 meq/L [facility] Urea nitrogen [Mass/Vol] 65 mg/dL High 7 - 22 mg/dL [facility] CBCon 07-26-2022 Erythrocyte distribution width (RBC) [Entitic vol] 46.2 fL High 35.0 - 45.0 fL [facility] Erythrocyte distribution width (RBC) [Ratio] 13.6 % 11.5 - 14.5 % [facility] Hematocrit (Bld) [Volume fraction] 22.9 % Low 42.0 - 52.0 % [facility] Hemoglobin (Bld) [Mass/Vol] 7.4 g/dL Low [facility] Interpretation and review of laboratory results Abnormal [facility] MCH (RBC) [Entitic mass] 30.0 pg 26.0 - 33.0 pg [facility] MCHC (RBC) [Mass/Vol] 32.3 g/dL [facility] MCV (RBC) [Entitic vol] 92.7 fL 80.0 - 94.0 fL [facility] Platelet mean volume (Bld) [Entitic vol] 9.0 fL Low 9.4 - 12.4 fL [facility] Comment on above: Performed at [facility] [address] [place] [address] Platelets (Bld) [#/Vol] 147 10*3/uL [facility] RBC (Bld) [#/Vol] 2.47 10*6/uL Low [facility] WBC (Bld) [#/Vol] 4.3 10*3/uL Low [facility] CBC NO DIFFERENTIALon 2022 Erythrocyte distribution width (RBC) [Ratio] 13.6 % Normal 11.5-14.5 [facility] Comment on above: Performed By: #### P OCGL #### [employer] [address] [place] [address] Hematocrit (Bld) [Volume fraction] 22.9 % Low 42.0-52.0 [facility] Comment on above: Performed By: #### P OCGL #### [facility] [address] [place] [address] Hemoglobin (Bld) [Mass/Vol] 7.4 g/dL Low 14.0-18.0 [facility] Comment on above: Performed By: #### P OCGL #### [facility] [address] [place] [address] 79287 MCH (RBC) [Entitic mass] 30.0 pg Normal 26.0-33.0 [facility] Comment on above: Performed By: #### P OCGL #### [address] [address] MCHC (RBC) [Mass/Vol] 32.3 g/dL Normal 32.2-35.5 [facility] Comment on above: Performed By: #### P OCGL #### [address] [address] MCV (RBC) [Entitic vol] 92.7 fL Normal 80.0-94.0 [facility] Comment on above: Performed By: #### P OCGL #### [address] [address] PLATELET 147 thou/mm3 Normal 130-400 [facility] Comment on above: Performed By: #### P OCGL #### [address] [address] Platelet mean volume (Bld) [Entitic vol] 9.0 fL Low 9.4-12.4 [facility] Comment on above: Performed By: #### P OCGL #### [address] [address] RBC 2.47 mill/mm3 Low 4.70-6.10 [facility] Comment on above: Performed By: #### P OCGL #### [address] [address] RDW-SD 46.2 fL High 35.0-45.0 [facility] Comment on above: Performed By: #### P OCGL #### [address] [address] WBC 4.3 thou/mm3 Low 4.8-10.8 [facility] Comment on above: Performed By: #### P OCGL #### [facility] [address] [place] [address]30 GFR, ESTIMATEDon 07-26-2022 GFR/1.73 sq M.predicted MDRD (S/P/Bld) [Vol rate/Area] 28 mL/min/{1.73_m2} Abnormal >60 [facility] Comment on above: Result Comment: Pedi atric [...] secretion. Performed By: #### P OCGL #### [address] [address] GLUCOSE POCon 07-26-2022 Glucose [Mass/Vol] 312 mg/dL High [address] Comment on above: Performed By: #### H -A1C #### [address] [address] Glucose [Mass/Vol] 226 mg/dL [address] Comment on above: Performed By: #### P OCGL #### [facility] [address] [place] [address] 06648 Glucose [Mass/Vol] 230 mg/dL High [address] [place] [address] Comment on above: Performed By: #### P OCGL #### [facility] [address] [place] [address] 28124 Glucose [Mass/Vol] 232 mg/dL High [address] Comment on above: Performed By: #### P OCGL #### [facility] [address] [place] [address]200 Glucose [Mass/Vol] 334 mg/dL High [address] Comment on above: Performed By: #### P OCGL #### [address] [address] Glomerular Filtration Rate, Estimatedon 07-26-2022 GFR/1.73 sq M.predicted MDRD (S/P/Bld) [Vol rate/Area] 28 mL/min/{1.73_m2} Abnormal - PINF [facility] Comment on above: Pediatric calculator link https://www.kidney.org/professionals/kdoqi/gfr_calculatorped [...] that affects renal tubular secretion. Performed at [facility] [address] [place] [address] Glucose Auto test strip (Bld ) [Mass/Vol]on 07-26-2022 Glucose [Mass/Vol] 312 mg/dL High 70 - 108 mg/dl [facility] Comment on above: Performed at [facility] [address] [place] [address] Interpretation and review of laboratory results Abnormal [facility] Glucose [Mass/Vol] 226 mg/dL High 70 - 108 mg/dl [facility] Comment on above: Performed at [facility] [address] [place] [address] Interpretation and review of laboratory results Abnormal [facility] Glucose [Mass/Vol] 230 mg/dL High 70 - 108 mg/dl [facility] Comment on above: Performed at [facility] [address] [place] [address] Interpretation and review of laboratory results Abnormal [facility] Glucose [Mass/Vol] 232 mg/dL High 70 - 108 mg/dl [facility] Comment on above: Performed at [facility] [address] [place] [address] Interpretation and review of laboratory results Abnormal [facility] No Panel Informationon 07-26 Interpretation and review of laboratory results Abnormal [facility] VL DUP LOWER EXTREMITY VENOU S BILATERALon 07-26-2022 No evidence of deep venous thrombosis in either lower extremity. This report has been created using voice recognition software. It may contain minor errors which are inherent in voice recognition technology. Final report electronically signed by Dr. Jose R Bianchi on 07/26/2022 6:35 PM [facility] Jose R Dominguez MD - 07/26/2022 PROCEDURE: VL DUP LOWER [...] Jose R Bianchi on 07/26/2022 6:35 PM [employer] Phone: Radiology Study observation (narrative) [employer] Phone: VL DUP LOWER EXTREMITY VENOU S BILATERALOrdered By: Jose R Bianchi on 07-26-2022 [employer] Phone: ANION GAPon 07-25-2022 Anion gap [Moles/Vol] 12.0 mmol/L Normal 8.0-16.0 [facility] Comment on above: Result Comment: ANIO N GAP = Sodium -(Chloride + CO2) Performed By: #### P OCGL #### [facility] [address] [place] [address] Anion Gapon 07-25-2022 Anion gap [Moles/Vol] 12.0 mmol/L 8.0 - 16.0 meq/L [facility] Comment on above: ANION GAP = Sodium - (Chloride + CO2) Performed at [facility] [address] [place] [address] BASIC METABOL PANELon 2022 Calcium [Mass/Vol] 7.7 mg/dL Low 8.5-10.5 [facility] Comment on above: Performed By: #### P OCGL #### [facility] [address] [place] [address] Chloride [Moles/Vol] 104 mmol/L Normal 98-111 [facility] Comment on above: Performed By: #### P OCGL #### [place] [facility] [address] [place] [address] CO2 [Moles/Vol] 19 mmol/L Low 23-33 [facility] Comment on above: Performed By: #### P OCGL #### [facility] [address] [place] [address]309 Creatinine [Mass/Vol] 2.5 mg/dL High 0.4-1.2 [facility] Comment on above: Performed By: #### P OCGL #### [facility] [address] [place] [address]20 Glucose [Mass/Vol] 287 mg/dL High 70-108 [facility] Comment on above: Performed By: #### P OCGL #### [facility] [address] [place] [address]10 Potassium [Moles/Vol] 5.4 mmol/L High 3.5-5.2 [facility] Comment on above: Performed By: #### P OCGL #### [facility] [address] [place] [address] 17041 Sodium [Moles/Vol] 135 mmol/L Normal 135-145 [facility] Comment on above: Performed By: #### P OCGL #### [facility] [address] [place] [address] 40969 Urea nitrogen [Mass/Vol] 55 mg/dL High 7-22 [facility] Comment on above: Performed By: #### P OCGL #### [facility] [address] [place] [address]195 Basic metabolic 2000 panelon 07-25-2022 Calcium [Mass/Vol] 7.7 mg/dL Low 8.5 - 10. 5 mg/dL [facility] Comment on above: Performed at [facility] [address] [place] [address] Chloride [Moles/Vol] 104 mmol/L 98 - 11 1 meq/L [facility] [employer] CO2 [Moles/Vol] 19 mmol/L Low 23 - 33 meq/L [facility] [employer] Creatinine [Mass/Vol] 2.5 mg/dL High 0.4 - 1.2 mg/dL [facility] Glucose [Mass/Vol] 287 mg/dL High 70 - 108 mg/dL [facility] Potassium [Moles/Vol] 5.4 mmol/L High 3.5 - 5.2 meq/L [facility] Sodium [Moles/Vol] 135 mmol/L 135 - 145 meq/L [facility] Urea nitrogen [Mass/Vol] 55 mg/dL High 7 - 22 mg/dL [facility] CBCon 07-25-2022 Erythrocyte distribution width (RBC) [Entitic vol] 45 fL 35.0 - 45.0 fL [facility] Erythrocyte distribution width (RBC) [Ratio] 13.5 % 11.5 - 14.5 % [facility] Hematocrit (Bld) [Volume fraction] 23.1 % Low 42.0 - 52.0 % [facility] Hemoglobin (Bld) [Mass/Vol] 7.6 g/dL Low [facility] Interpretation and review of laboratory results Abnormal [facility] MCH (RBC) [Entitic mass] 30.2 pg 26.0 - 33.0 pg [facility] MCHC (RBC) [Mass/Vol] 32.9 g/dL [facility] MCV (RBC) [Entitic vol] 91.7 fL 80.0 - 94.0 fL [facility] Platelet mean volume (Bld) [Entitic vol] 9.1 fL Low 9.4 - 12.4 fL [facility] Comment on above: Performed at [facility] [address] [place] [address]01 Platelets (Bld) [#/Vol] 148 10*3/uL [facility] RBC (Bld) [#/Vol] 2.52 10*6/uL Low [facility] S [facility] WBC (Bld) [#/Vol] 3.9 10*3/uL Low [facility] CBC NO DIFFERENTIALon 2022 Erythrocyte distribution width (RBC) [Ratio] 13.5 % Normal 11.5-14.5 [facility] Comment on above: Performed By: #### P OCGL #### [facility] [place] [address] Hematocrit (Bld) [Volume fraction] 23.1 % Low 42.0-52.0 [facility] Comment on above: Performed By: #### P OCGL #### [place] [id number] Hemoglobin (Bld) [Mass/Vol] 7.6 g/dL Low 14.0-18.0 [facility] Comment on above: Performed By: #### P OCGL #### [place] [id number] MCH (RBC) [Entitic mass] 30.2 pg Normal 26.0-33.0 [facility] Comment on above: Performed By: #### P OCGL #### [place] [address] MCHC (RBC) [Mass/Vol] 32.9 g/dL Normal 32.2-35.5 [facility] Comment on above: Performed By: #### P OCGL #### [place] [id number] MCV (RBC) [Entitic vol] 91.7 fL Normal 80.0-94.0 [facility] Comment on above: Performed By: #### P OCGL #### [place] [address] PLATELET 148 thou/mm3 Normal 130-400 [facility] Comment on above: Performed By: #### P OCGL #### [place] [id number] Platelet mean volume (Bld) [Entitic vol] 9.1 fL Low 9.4-12.4 [facility] Comment on above: Performed By: #### P OCGL #### [place] [id number] RBC 2.52 mill/mm3 Low 4.70-6.10 [facility] Comment on above: Performed By: #### P OCGL #### [address] [address] RDW-SD 45.0 fL Normal 35.0-45.0 [facility] Comment on above: Performed By: #### P OCGL #### [facility] [address] [place] [address] WBC 3.9 thou/mm3 Low 4.8-10.8 [facility] Comment on above: Performed By: #### P OCGL #### [facility] [address] [place] [address]87 GFR, ESTIMATEDon 07-25-2022 GFR/1.73 sq M.predicted MDRD (S/P/Bld) [Vol rate/Area] 26 mL/min/{1.73_m2} Abnormal >60 [facility] Comment on above: Result Comment: Shayla atric [...] secretion. Performed By: #### P OCGL #### [facility] [address] [place] [address] 83635 GLUCOSE POCon 07-25-2022 Glucose [Mass/Vol] 342 mg/dL High 70-108 [facility] Comment on above: Performed By: #### P OCGL #### [facility] [address] [place] [address] 00063 Glucose [Mass/Vol] 318 mg/dL High [address] [facility] Comment on above: Performed By: #### P OCGL #### [facility] [address] [place] [address] 57636 Glucose [Mass/Vol] 313 mg/dL High [address]08 [facility] Comment on above: Performed By: #### P OCGL #### [facility] [address] [place] [address] 45608 Glucose [Mass/Vol] 404 mg/dL High 70108 [facility] Comment on above: Performed By: #### P OCGL #### [facility] [address] [place] [address] 23993 Glucose [Mass/Vol] 295 mg/dL High 70-108 [facility] Comment on above: Performed By: #### P OCGL #### [facility] [address] [place] [address] 14891 Glucose [Mass/Vol] 334 mg/dL High 70-108 [facility] Comment on above: Performed By: #### P OCGL #### [facility] [address] [place] [address]329 Glomerular Filtration Rate, Estimatedon 07-25-2022 GFR/1.73 sq M.predicted MDRD (S/P/Bld) [Vol rate/Area] 26 mL/min/{1.73_m2} Abnormal - PIN[facility] [employer] Comment on above: Pediatric calculator link https://www.kidney.org/professionals/kdoqi/gfr_calculatorped [...] that affects renal tubular secretion. Performed at [facility] [address] [place] [address] Glucose Auto test strip (Bld ) [Mass/Vol]on 07-25-2022 Glucose [Mass/Vol] 334 mg/dL High 70 - 108 mg/dl [facility] Comment on above: Performed at [facility] [address] [place] [address] Interpretation and review of laboratory results Abnormal [facility] Glucose [Mass/Vol] 342 mg/dL High 70 - 108 mg/dl [facility] Comment on above: Performed at [facility] [address] [place] [address] Interpretation and review of laboratory results Abnormal [facility] Glucose [Mass/Vol] 318 mg/dL High 70 - 108 mg/dl [employer] [facility] Comment on above: Performed at [facility] [address] [place] [address] Interpretation and review of laboratory results Abnormal [facility] Glucose [Mass/Vol] 313 mg/dL High 70 - 108 mg/dl [facility] Comment on above: Performed at [facility] [address] [place] [address] Interpretation and review of laboratory results Abnormal [facility] Glucose [Mass/Vol] 404 mg/dL High 70 - 108 mg/dl [facility] Comment on above: Performed at [facility] [address] [place] [address] Interpretation and review of laboratory results Abnormal [facility] Glucose [Mass/Vol] 295 mg/dL High 70 - 108 mg/dl [facility] Comment on above: Performed at [facility] [address] [place] [address] Interpretation and review of laboratory results Abnormal [facility] Glucose [Mass/Vol] 334 mg/dL High 70 - 108 mg/dl [facility] Comment on above: Performed at [facility] [address] [place] [address] Interpretation and review of laboratory results Abnormal [facility] No Panel Informationon 07-25 Interpretation and review of laboratory results Abnormal [facility] XR LUMBAR SPINE (2-3 VIEWS)o n 07-25-2022 Redemonstration of laminectomies at L2-S1 with posterior fusion without acute abnormality identified. This report has been created using voice recognition software. It may contain minor errors which are inherent in voice recognition technology. Final report electronically signed by Dr. Lalo Polanco DO, MD on 07/25/2022 3:57 PM [facility] Lalo Weinstein DO - 07/25/2022 PROCEDURE: XR [...] Polanco DO, MD on 07/25/2022 3:57 PM [employer] Phone: Radiology Study observation (narrative) [employer] Phone: XR LUMBAR SPINE (2-3 VIEWS)O rdered By: Lalo Polanco on 07-25-2022 [employer] Phone: ANION GAPon 07-24-2022 Anion gap [Moles/Vol] 12.0 mmol/L Normal 8.0-16.0 [facility] Comment on above: Result Comment: ANIO N GAP = Sodium -(Chloride + CO2) Performed By: #### P OCGL #### [facility] [facility] [address] [place] [address]64 Anion Gapon 07-24-2022 Anion gap [Moles/Vol] 12.0 mmol/L 8.0 - 16.0 meq/L [facility] Comment on above: ANION GAP = Sodium - (Chloride + CO2) Performed at [facility] [address] [place] [address] BASIC METABOL PANELon 2022 Calcium [Mass/Vol] 8.0 mg/dL Low 8.5-10.5 [facility] Comment on above: Performed By: #### C BCND, ANION, EGFR1, BMP #### [facility] [address] [place] [address]102 Chloride [Moles/Vol] 107 mmol/L Normal 98-111 [facility] Comment on above: Performed By: #### C BCND, ANION, EGFR1, BMP #### [employer] [facility] [facility] [address] [place] [address] CO2 [Moles/Vol] 18 mmol/L Low 23-33 [facility] Comment on above: Performed By: #### C BCND, ANION, EGFR1, BMP #### [facility] [address] [place] [address]35 Creatinine [Mass/Vol] 2.8 mg/dL High 0.4-1.2 [facility] Comment on above: Performed By: #### C BCND, ANION, EGFR1, BMP #### [facility] [address] [place] [address]81 Glucose [Mass/Vol] 188 mg/dL High 70-108 [facility] Comment on above: Performed By: #### C BCND, ANION, EGFR1, BMP #### [facility] [address] [place] [address] 42790 Potassium [Moles/Vol] 5.6 mmol/L High 3.5-5.2 [facility] Comment on above: Performed By: #### C BCND, ANION, EGFR1, BMP #### [facility] [address] [address] Sodium [Moles/Vol] 137 mmol/L Normal 135-145 [facility] Comment on above: Performed By: #### C BCND, ANION, EGFR1, BMP #### [facility] [address] [address] Urea nitrogen [Mass/Vol] 41 mg/dL High 7-22 [facility] Comment on above: Performed By: #### C BCND, ANION, EGFR1, BMP #### [facility] [address] [place] [address] 84481 Basic metabolic 2000 panelon 07-24-2022 Calcium [Mass/Vol] 8.0 mg/dL Low 8.5 - 10. 5 mg/dL [facility] Comment on above: Performed at [facility] [address] [place] [address]52 Chloride [Moles/Vol] 107 mmol/L 98 - 11 1 meq/L [facility] [employer] CO2 [Moles/Vol] 18 mmol/L Low 23 - 33 meq/L [facility] Creatinine [Mass/Vol] 2.8 mg/dL High 0.4 - 1.2 mg/dL [facility] Glucose [Mass/Vol] 188 mg/dL High 70 - 108 mg/dL [facility] Potassium [Moles/Vol] 5.6 mmol/L High 3.5 - 5.2 meq/L [facility] Sodium [Moles/Vol] 137 mmol/L 135 - 145 meq/L [facility] Urea nitrogen [Mass/Vol] 41 mg/dL High 7 - 22 mg/dL [facility] CBCon 07-24-2022 Erythrocyte distribution width (RBC) [Entitic vol] 47.8 fL High 35.0 - 45.0 fL [facility] Erythrocyte distribution width (RBC) [Ratio] 13.9 % 11.5 - 14.5 % [facility] Hematocrit (Bld) [Volume fraction] 23.5 % Low 42.0 - 52.0 % [facility] Hemoglobin (Bld) [Mass/Vol] 7.4 g/dL Low [facility] Interpretation and review of laboratory results Abnormal [facility] MCH (RBC) [Entitic mass] 29.7 pg 26.0 - 33.0 pg [facility] MCHC (RBC) [Mass/Vol] 31.5 g/dL Low [facility] MCV (RBC) [Entitic vol] 94.4 fL High 80.0 - 94.0 fL [facility] Platelet mean volume (Bld) [Entitic vol] 8.9 fL Low 9.4 - 12.4 fL [facility] Comment on above: Performed at [facility] [address] [place] [address] Platelets (Bld) [#/Vol] 132 10*3/uL [facility] RBC (Bld) [#/Vol] 2.49 10*6/uL Low [facility] WBC (Bld) [#/Vol] 4.6 10*3/uL Low [facility] CBC NO DIFFERENTIALon 2022 Erythrocyte distribution width (RBC) [Ratio] 13.9 % Normal 11.5-14.5 [facility] Comment on above: Performed By: #### C BCND, ANION, EGFR1, BMP #### [place] [address] Hematocrit (Bld) [Volume fraction] 23.5 % Low 42.0-52.0 [facility] Comment on above: Performed By: #### C BCND, ANION, EGFR1, BMP #### [place] [address] Hemoglobin (Bld) [Mass/Vol] 7.4 g/dL Low 14.0-18.0 [facility] Comment on above: Performed By: #### C BCND, ANION, EGFR1, BMP #### [place] [address] MCH (RBC) [Entitic mass] 29.7 pg Normal 26.0-33.0 [facility] Comment on above: Performed By: #### C BCND, ANION, EGFR1, BMP #### [place] [address] MCHC (RBC) [Mass/Vol] 31.5 g/dL Low 32.2-35.5 [facility] Comment on above: Performed By: #### C BCND, ANION, EGFR1, BMP #### [place] [address] MCV (RBC) [Entitic vol] 94.4 fL High 80.0-94.0 [facility] Comment on above: Performed By: #### C BCND, ANION, EGFR1, BMP #### [place] [address] PLATELET 132 thou/mm3 Normal 130-400 [facility] Comment on above: Performed By: #### C BCND, ANION, EGFR1, BMP #### [place] [address] Platelet mean volume (Bld) [Entitic vol] 8.9 fL Low 9.4-12.4 [facility] Comment on above: Performed By: #### C BCND, ANION, EGFR1, BMP #### [place] [address] RBC 2.49 mill/mm3 Low 4.70-6.10 [facility] Comment on above: Performed By: #### C BCND, ANION, EGFR1, BMP #### [facility] [employer] [facility] [address] [place] [address] RDW-SD 47.8 fL High 35.0-45.0 [facility] Comment on above: Performed By: #### C BCND, ANION, EGFR1, BMP #### [facility] [address] [place] [address] WBC 4.6 thou/mm3 Low 4.8-10.8 [facility] Comment on above: Performed By: #### C BCND, ANION, EGFR1, BMP #### [facility] [address] [place] [address] GFR, ESTIMATEDon 07-24-2022 GFR/1.73 sq M.predicted MDRD (S/P/Bld) [Vol rate/Area] 23 mL/min/{1.73_m2} Abnormal >60 [facility] Comment on above: Result Comment: Pedi atric [...] secretion. Performed By: #### P OCGL #### [facility] [address] [place] [address] GLUCOSE POCon 07-24-2022 Glucose [Mass/Vol] 374 mg/dL High 70-108 [facility] Comment on above: Performed By: #### P OCGL ####[employer] [id number] [place] [address] Glucose [Mass/Vol] 392 mg/dL High 70-108 [facility] Comment on above: Performed By: #### H -A1C #### [facility] [facility] [address] [place] [address]27 Glucose [Mass/Vol] 391 mg/dL High 70-108 [facility] Comment on above: Performed By: #### P OCGL #### [facility] [address] [place] [address] Glucose [Mass/Vol] 225 mg/dL High 70-108 [facility] Comment on above: Performed By: #### P OCGL #### [address] [address] Glomerular Filtration Rate, Estimatedon 07-24-2022 GFR/1.73 sq M.predicted MDRD (S/P/Bld) [Vol rate/Area] 23 mL/min/{1.73_m2} Abnormal - PINF [employer] [facility] Comment on above: Pediatric calculator link [...] that affects renal tubular secretion. Performed at [facility] [address] [place] [address] Glucose Auto test strip (Bld ) [Mass/Vol]on 07-24-2022 Glucose [Mass/Vol] 374 mg/dL High 70 - 108 mg/dl [employer] [facility] Comment on above: Performed at [facility] [address] [place] [address] Interpretation and review of laboratory results Abnormal [facility] Glucose [Mass/Vol] 392 mg/dL High 70 - 108 mg/dl [employer] [facility] Comment on above: Performed at [facility] [address] [place] [address] Interpretation and review of laboratory results Abnormal [facility] Glucose [Mass/Vol] 391 mg/dL High 70 - 108 mg/dl [employer] [facility] Comment on above: Performed at [facility] [address] [place], [place] [id number] Interpretation and review of laboratory results Abnormal [facility] Glucose [Mass/Vol] 225 mg/dL High 70 - 108 mg/dl [facility] Comment on above: Performed at [facility] [address] [place] [address] Interpretation and review of laboratory results Abnormal [facility] No Panel Informationon 07-24 Interpretation and review of laboratory results Abnormal [facility] POTASSIUMon 07-24-2022 Potassium [Moles/Vol] 5.0 mmol/L Normal 3.5-5.2 [facility] Comment on above: Performed By: #### P OCGL #### [facility] [place] [address] Potassiumon 07-24-2022 Potassium [Moles/Vol] 5.0 mmol/L 3.5 - 5.2 meq/L [facility] Comment on above: Performed at [facility] [address] [place] [address] Potassium [Moles/Vol]on 07-07 [facility] ANION GAPon 07-23-2022 Anion gap [Moles/Vol] 11.0 mmol/L Normal 8.0-16.0 [facility] Comment on above: Result Comment: ANIO N GAP = Sodium -(Chloride + CO2) Performed By: #### B MP, EGFR1, ANION, CBCND ####[facility] [address] [place] [address] Anion Gapon 07-23-2022 Anion gap [Moles/Vol] 11.0 mmol/L 8.0 - 16.0 meq/L [facility] Comment on above: ANION GAP = Sodium - (Chloride + CO2) Performed at [facility] [address] [place] [address] BASIC METABOL PANELon 2022 Calcium [Mass/Vol] 7.5 mg/dL Low 8.5-10.5 [facility] Comment on above: Performed By: #### B MP, EGFR1, ANION, CBCND ####[facility] [address] [place] [address] Chloride [Moles/Vol] 111 mmol/L Normal 98-111 [facility] Comment on above: Performed By: #### B MP, EGFR1, ANION, CBCND ####[facility] [address] [place] [address] CO2 [Moles/Vol] 19 mmol/L Low 23-33 [facility] Comment on above: Performed By: #### B MP, EGFR1, ANION, CBCND ####[facility] Medical [address] [place] [address] Creatinine [Mass/Vol] 2.8 mg/dL High 0.4-1.2 [facility] Comment on above: Performed By: #### B MP, EGFR1, ANION, CBCND ####[facility] [address] [place] [address] Glucose [Mass/Vol] 113 mg/dL High 70-108 [facility] Comment on above: Performed By: #### B MP, EGFR1, ANION, CBCND ####[facility] Medical [address] [place] [address] Potassium [Moles/Vol] 4.8 mmol/L Normal 3.5-5.2 [facility] Comment on above: Performed By: #### B MP, EGFR1, ANION, CBCND ####[facility] Medical [address] [place] [address] Sodium [Moles/Vol] 141 mmol/L Normal 135-145 [facility] Comment on above: Performed By: #### B MP, EGFR1, ANION, CBCND ####[place] [facility] [address] [place] [address] Urea nitrogen [Mass/Vol] 30 mg/dL High 7-22 [facility] Comment on above: Performed By: #### B MP, EGFR1, ANION, CBCND ####[place] [facility] [address] [place] [address] Basic metabolic 2000 panelon 07-23-2022 Calcium [Mass/Vol] 7.5 mg/dL Low 8.5 - 10. 5 mg/dL [facility] Comment on above: Performed at [facility] [address] [place] [address] Chloride [Moles/Vol] 111 mmol/L 98 - 11 1 meq/L [facility] CO2 [Moles/Vol] 19 mmol/L Low 23 - 33 meq/L [facility] Creatinine [Mass/Vol] 2.8 mg/dL High 0.4 - 1.2 mg/dL [facility] Glucose [Mass/Vol] 113 mg/dL High 70 - 108 mg/dL [facility] Potassium [Moles/Vol] 4.8 mmol/L 3.5 - 5.2 meq/L [facility] Sodium [Moles/Vol] 141 mmol/L 135 - 145 meq/L [facility] Urea nitrogen [Mass/Vol] 30 mg/dL High 7 - 22 mg/dL [facility] CBCon 07-23-2022 Erythrocyte distribution width (RBC) [Entitic vol] 51.9 fL High 35.0 - 45.0 fL [facility] Erythrocyte distribution width (RBC) [Ratio] 15 % High 11.5 - 14.5 % [facility] Hematocrit (Bld) [Volume fraction] 23.2 % Low 42.0 - 52.0 % [facility] Hemoglobin (Bld) [Mass/Vol] 7.6 g/dL Low [facility] Interpretation and review of laboratory results Abnormal [facility] MCH (RBC) [Entitic mass] 31.4 pg 26.0 - 33.0 pg [facility] MCHC (RBC) [Mass/Vol] 32.8 g/dL [facility] MCV (RBC) [Entitic vol] 95.9 fL High 80.0 - 94.0 fL [facility] Platelet mean volume (Bld) [Entitic vol] 8.6 fL Low 9.4 - 12.4 fL [facility] Comment on above: Performed at [facility] [address] [place] [address] Platelets (Bld) [#/Vol] 128 10*3/uL Low [facility] RBC (Bld) [#/Vol] 2.42 10*6/uL Low [facility] WBC (Bld) [#/Vol] 6.7 10*3/uL [facility] CBC NO DIFFERENTIALon 2022 Erythrocyte distribution width (RBC) [Ratio] 15.0 % High 11.5-14.5 [facility] Comment on above: Performed By: #### P OCGL #### [facility] [address] [place] [address] Hematocrit (Bld) [Volume fraction] 23.2 % Low 42.0-52.0 [facility] Comment on above: Performed By: #### P OCGL #### [facility] [address] [place] [address] Hemoglobin (Bld) [Mass/Vol] 7.6 g/dL Low 14.0-18.0 [facility] Comment on above: Performed By: #### P OCGL #### [facility] [address] [address] MCH (RBC) [Entitic mass] 31.4 pg Normal 26.0-33.0 [facility] Comment on above: Performed By: #### P OCGL #### [facility] [address] [place] [address] MCHC (RBC) [Mass/Vol] 32.8 g/dL Normal 32.2-35.5 [facility] Comment on above: Performed By: #### P OCGL #### [facility] [address] [address] MCV (RBC) [Entitic vol] 95.9 fL High 80.0-94.0 [facility] Comment on above: Performed By: #### P OCGL #### [facility] [employer] [facility] [address] [place] [address] PLATELET 128 thou/mm3 Low 130-400 [facility] Comment on above: Performed By: #### P OCGL #### [facility] [address] [place] [address] Platelet mean volume (Bld) [Entitic vol] 8.6 fL Low 9.4-12.4 [facility] Comment on above: Performed By: #### P OCGL #### [place] [facility] [address] [place] [address] RBC 2.42 mill/mm3 Low 4.70-6.10 [facility] Comment on above: Performed By: #### P OCGL #### [address] [address] RDW-SD 51.9 fL High 35.0-45.0 [facility] Comment on above: Performed By: #### P OCGL #### [address] [address] WBC 6.7 thou/mm3 Normal 4.8-10.8 [facility] Comment on above: Performed By: #### P OCGL #### [address] [address] [address] HEAD WO CONTRASTon 2022 No evidence of an acute process. This report has been created using voice recognition software. It may contain minor errors which are inherent in voice recognition technology. Final report electronically signed by Dr. Gissel Escobedo on 07/23/2022 1:23 PM [facility] Gissel Nina MD - 07/23/2022 PROCEDURE: CT HEAD WO [...] Dr. Gissel Escobedo on 07/23/2022 1:23 PM [facility]ITAL[facility] Phone: Radiology Study observation (narrative) [facility] Work Phone: CT HEAD WO CONTRASTOrdered B y: Gissel Escobedo on 07-23-2022 [facility] Work Phone: GFR, ESTIMATEDon 07-23-2022 GFR/1.73 sq M.predicted MDRD (S/P/Bld) [Vol rate/Area] 23 mL/min/{1.73_m2} Abnormal >60 [facility] Comment on above: Result Comment: Pedi atric [...] By: #### B MP, EGFR1, ANION, CBCND ####[facility] [address] [place] [address] GLUCOSE POCon 07-23-2022 Glucose [Mass/Vol] 163 mg/dL High 70-108 [facility] Comment on above: Performed By: #### P OCGL #### [facility] [employer] [facility] [address] [place] [address] Glucose [Mass/Vol] 156 mg/dL High 70-108 [facility] Comment on above: Performed at [facility] [address] [place] [address] Performed By: #### P OCGL #### [employer] [address] [place] [address] Glucose [Mass/Vol] 152 mg/dL High 70-108 [facility] Comment on above: Performed By: #### P OCGL #### [employer] [address] [place] [address] Glucose [Mass/Vol] 151 mg/dL High 70-108 [facility] Comment on above: Performed By: #### P OCGL #### [employer] [facility] [address] [place] [address] Glucose [Mass/Vol] 120 mg/dL High 70-108 [facility] Comment on above: Performed By: #### P OCGL #### [employer] [address] [place] [address] Gas panel (BldA)on 3 Arterial patency Wrist artery --pre arterial puncture Positive [facility] Base excess Calc (Bld) [Moles/Vol] -3.9000 mmol/L Low -2.5 - 2.5 mmol/l [facility] Body site L Brach [facility] CO2 (Bld) [Partial pressure] 42 mm[Hg] [facility] COLLECTED BY: [id number] [facility] Comment on above: Performed at [facility] [address] [place] [address] DEVICE Cannula [facility] HCO3 (Bld) [Moles/Vol] 22 mmol/L Low 23 - 28 mmol/l [facility] Interpretation and review of laboratory results Abnormal [facility] Oxygen (Bld) [Partial pressure] 99 mm[Hg] [facility] Oxygen/Inspired gas Respiratory system by O2 Analyzer --on ventilator 2 [facility] pH (Bld) 7.32 [pH] Low 7.35 - 7.45 [facility] Glomerular Filtration Rate, Estimatedon 07-23-2022 GFR/1.73 sq M.predicted MDRD (S/P/Bld) [Vol rate/Area] 23 mL/min/{1.73_m2} Abnormal - PINF [facility] Comment on above: Pediatric calculator link https://www.kidney.org/professionals/kdoqi/gfr_calculatorped [...] that affects renal tubular secretion. Performed at [facility] [address] [place] [address] Glucose Auto test strip (Bld ) [Mass/Vol]on 07-23-2022 Glucose [Mass/Vol] 163 mg/dL High 70 - 108 mg/dl [facility] Comment on above: Performed at [facility] [address] [place] [address] Interpretation and review of laboratory results Abnormal [facility] Glucose [Mass/Vol] 152 mg/dL High 70 - 108 mg/dl [facility] Comment on above: Performed at [facility] [address] [place] [address] Interpretation and review of laboratory results Abnormal [facility] Glucose [Mass/Vol] 151 mg/dL High 70 - 108 mg/dl [facility] Comment on above: Performed at [facility] [address] [place] [address] Interpretation and review of laboratory results Abnormal [facility] Glucose [Mass/Vol] 120 mg/dL High 70 - 108 mg/dl [facility] Comment on above: Performed at [facility] [address] [place] [address] Interpretation and review of laboratory results Abnormal [facility] ISTAT BLOOD GASon 07-23-2022 STEVE'S TEST Positive [facility] Comment on above: Performed By: #### P OCGL #### [place] [facility] [address] [place] [address] BASE EXCESS -3.9 mmol/l Low -2.5-2.5 [facility] Comment on above: Performed By: #### P OCGL #### [place] [facility] [address] [place] [address] COLLECTED BY [id number] [facility] Comment on above: Performed By: #### P OCGL #### [place] [facility] [address] [place] [address] DEVICE Cannula [facility] Comment on above: Performed By: #### P OCGL #### [place] [facility] [address] [place] [address] FIO2 2 [facility] Comment on above: Performed By: #### P OCGL #### [facility] [address] [place] [address] HCO3 (Bld) [Moles/Vol] 22 mmol/L Low 23-28 [facility] Comment on above: Performed By: #### P OCGL #### [facility] [address] [address] Oxygen (Bld) [Partial pressure] 99 mm[Hg] Normal 71-104 [facility] Comment on above: Performed By: #### P OCGL #### [facility] [address] [address] Oxygen saturation in Blood 97 % Normal [facility] Comment on above: Performed By: #### P OCGL #### [facility] [address] [address] PCO2 42 mmhg Normal 35-45 [facility] Comment on above: Performed By: #### P OCGL #### [facility] [address] [address] pH (Bld) 7.32 [pH] Low 7.35-7.45 [facility] Comment on above: Performed By: #### P OCGL #### [facility] [address] [address] SITE L Brach Normal [facility] Comment on above: Performed By: #### P OCGL #### [facility] [address] [address] No Panel Informationon 07-23 Interpretation and review of laboratory results Abnormal [facility] URINALYSIS W/ MICROon 2022 CASTS >15 C.GRAN Normal NONE SEEN [facility] Comment on above: Performed By: #### P OCGL #### [facility] [address] [address] CASTS 2 0-4 FINE GRAN Normal [facility] Comment on above: Performed By: #### P OCGL #### [facility] [address] [address] MISCELLANEOUS see below Normal [facility] Comment on above: Result Comment: See Below 0-4 HYALINE CASTS Performed By: #### P OCGL #### [place] [facility] [address] [place] [address] MUCOUS THREADS Normal NONE SEEN/THREA [facility] Comment on above: Performed By: #### P OCGL #### [place] [facility] [address] [place] [address] RBC 10-15 Normal 0-2/hpf [facility] Comment on above: Performed By: #### P OCGL #### [place] [facility] [address] [place] [address] RENAL EPITHELIAL 3-5 Normal NONE SEEN [facility] Comment on above: Performed By: #### P OCGL #### [place] [facility] [address] [place] [address] WBC 15-25 Normal 0-4/hpf [facility] Comment on above: Performed By: #### P OCGL #### [facility] [address] [place] [address] [place] [address] BACTERIA NONE SEEN Normal FEW/NONE SEEN [facility] Comment on above: Performed By: #### P OCGL #### [place] [facility] [address] [place] [address] [place] [address] Crystals LM Nom (Urine sed) NONE SEEN Normal NONE SEEN [facility] Comment on above: Performed By: #### P OCGL #### [place] [facility] [address] [place] [address] [place] [address] EPITHELIAL 25-50 Normal 3-5/hpf [facility] Comment on above: Performed By: #### P OCGL #### [place] [facility] [address] [place] [address] [place] [address] MISCELLANEOUS 2 NONE SEEN Normal [facility] Comment on above: Performed By: #### P OCGL #### [place] [facility] [address] [place] [address] YEAST NONE SEEN Normal NONE SEEN [facility] Comment on above: Performed By: #### P OCGL #### [place] [facility] [address] [place] [address] Bilirubin Ql (U) Negative Normal NEGATIVE [facility] Comment on above: Performed By: #### P OCGL #### [address] [address] CHARACTER TURBID Abnormal CLR-SL.CLOUD [facility] Comment on above: Performed By: #### P OCGL #### [address] [address] Color (U) YELLOW Normal YELLOW-STRAW [facility] Comment on above: Performed By: #### P OCGL #### [address] [address] Glucose Ql (U) 100 mg/dl Abnormal NEGATIVE [facility] Comment on above: Performed By: #### P OCGL #### [address] [address] Hemoglobin Ql (U) MODERATE Abnormal NEGATIVE [facility] Comment on above: Performed By: #### P OCGL #### [address] [address] Ketones Ql (U) Negative Normal NEGATIVE [facility] Comment on above: Performed By: #### P OCGL #### [address] [address] LEUKOCYTES Negative Normal NEGATIVE [facility] Comment on above: Performed By: #### P OCGL #### [address] [address] Nitrite Ql (U) Negative Normal NEGATIVE [facility] Comment on above: Performed By: #### P OCGL #### [address] [address] pH (U) 5.0 [pH] Normal 5.0 - 9.0 [facility] Comment on above: Performed By: #### P OCGL #### [address] [address] Protein Ql (U) >= 300 Abnormal NEGATIVE [facility] Comment on above: Performed By: #### P OCGL #### [address] [address] Specific gravity (U) [Rel density] 1.018 Normal 1.002-1.030 [facility] Comment on above: Performed By: #### P OCGL #### [facility] [address] [place] [address] Urobilinogen Qn (U) 0.2 {Stevie'U}/dL Normal 0.0 - 1. 0 [facility] Comment on above: Performed By: #### P OCGL #### [place] [address] Urinalysis dipstick W Reflex Microscopic panel (U)on 07-23-2022 Bacteria, UA NONE SEEN FEW/NONE SEEN [facility] Bilirubin Ql (U) Negative NEGATIVE [facility] Casts LM.LPF (Urine sed) [#/Area] >15 C.GRAN NONE SEEN /lpf [facility] Casts LM.LPF (Urine sed) [#/Area] 0-4 FINE GRAN /lpf [facility] Character (U) TURBID Abnormal CLR-SL.CLOUD [facility] Charcoal LM Ql (Urine sed) NONE SEEN [facility] Comment on above: Performed at [facility] [address] [place] [address] Color (U) YELLOW YELLOW-STRAW [facility]We[facility] Crystals LM Ql (Urine sed) NONE SEEN NONE SEEN [facility] Epithelial Cells, UA 25-50 3-5/hpf /hpf [facility] Epithelial cells.renal LM.HPF (Urine sed) [#/Area] 3-5 NONE SEEN [facility]ITAL[facility] HE[facility] Fungi.yeastlike LM Ql (Urine sed) NONE SEEN NONE SEEN [facility] Glucose Auto test strip Ql (U) 100 mg/dl Abnormal NEGATIVE [facility] Hemoglobin Auto test strip Ql (U) MODERATE Abnormal NEGATIVE [facility] Interpretation and review of laboratory results Abnormal [facility] Ketones Auto test strip Ql (U) Negative NEGATIVE [facility] SECA[facility] Leukocyte esterase Auto test strip Ql (U) Negative NEGATIVE [facility] Miscellaneous Lab Test Result see below [facility] Comment on above: See Below 0-4 HYALINE CASTS Mucus Ql (Urine sed) THREADS NONE SEEN/THREA [facility]ITAL[facility] Nitrite Auto test strip Ql (U) Negative NEGATIVE [facility] SECAth[facility] pH (U) 5.0 [pH] 5.0 - 9.0 [facility] Protein (U) [Mass/Vol] mg/dL Abnormal NEGAT AMADA mg/dl [facility] RBC LM.HPF (Urine sed) [#/Area] 10-15 0-2/hpf /hpf [facility] Specific gravity Refractometry automated (U) [Rel density] 1.018 1.002 - 1.030 [facility] Urobilinogen Ql (U) 0.2 [facility] WBC LM.HPF (Urine sed) [#/Area] 15-25 0-4/hpf /hpf [facility] VL DUP LOWER EXTREMITY VENOU S BILATERALon 07-23-2022 No evidence of a DVT. This report has been created using voice recognition software. It may contain minor errors which are inherent in voice recognition technology. Final report electronically signed by Dr Héctor Mcdonnell on 07/23/2022 5:19 PM [facility] Héctor White MD - 07/23/2022 PROCEDURE: VL [...] Dr Héctor Mcdonnell on 07/23/2022 5:19 PM [facility] Work Phone: Radiology Study observation (narrative) [facility] Work Phone: VL DUP LOWER EXTREMITY VENOU S BILATERALOrdered By: Héctor Mcdonnell on 07-23-2022 [facility] AMMONIAon 07-22-2022 Ammonia (P) [Moles/Vol] 36 umol/L Normal 11-60 [facility] Comment on above: Performed By: #### P OCGL #### [facility] [address] [place] [address] ANION GAPon 07-22-2022 Anion gap [Moles/Vol] 12.0 mmol/L Normal 8.0-16.0 [facility] Comment on above: Result Comment: ANIO N GAP = Sodium -(Chloride + CO2) Performed By: #### P OCGL #### [facility] [address] [place] [address] Anion gap [Moles/Vol] 10.0 mmol/L Normal 8.0-16.0 [facility] Comment on above: Result Comment: ANIO N GAP = Sodium -(Chloride + CO2) Performed By: #### P OCGL #### [facility] [address] [address] Ammonia (P) [Mass/Vol]on Ammonia (P) [Moles/Vol] 36 umol/L 11 - 60 umol/L [facility] Comment on above: Performed at [facility] [address] [place] [id number] [place], [place] [address]Athos [facility] Anion Gapon 07-22-2022 Anion gap [Moles/Vol] 12.0 mmol/L 8.0 - 16.0 meq/L [facility] Comment on above: ANION GAP = Sodium - (Chloride + CO2) Performed at [facility] [address] [place] [address] Anion gap [Moles/Vol] 10.0 mmol/L 8.0 - 16.0 meq/L [facility] Comment on above: ANION GAP = Sodium - (Chloride + CO2) Performed at [facility] [address] [place] [address] BASIC METABOL PANELon 2022 Calcium [Mass/Vol] 7.5 mg/dL Low 8.5-10.5 [facility] Comment on above: Performed By: #### P OCGL #### [facility] [address] [place] [address] Chloride [Moles/Vol] 109 mmol/L Normal 98-111 [facility] Comment on above: Performed By: #### P OCGL #### [place] [facility] [address] [place] [address] CO2 [Moles/Vol] 18 mmol/L Low 23-33 [facility] Comment on above: Performed By: #### P OCGL #### [place] [facility] [address] [place] [address] Creatinine [Mass/Vol] 2.4 mg/dL High 0.4-1.2 [facility] Comment on above: Performed By: #### P OCGL #### [place] [facility] [address] [place] [address] Glucose [Mass/Vol] 167 mg/dL High 70-108 [facility] Comment on above: Performed By: #### P OCGL #### [facility] [address] [place] [address] Potassium [Moles/Vol] 4.7 mmol/L Normal 3.5-5.2 [facility] Comment on above: Performed By: #### P OCGL #### [place] [facility] [address] [place] [address] Sodium [Moles/Vol] 139 mmol/L Normal 135-145 [facility] Comment on above: Performed By: #### P OCGL #### [place] [facility] [address] [place] [address] [place] [address] Urea nitrogen [Mass/Vol] 25 mg/dL High 7-22 [facility] Comment on above: Performed By: #### P OCGL #### [place] [facility] [facility] [address] [place] [address] Calcium [Mass/Vol] 6.9 mg/dL Low 8.5-10.5 [facility] Comment on above: Performed By: #### P OCGL #### [place] [facility] [address] [place] [address] Chloride [Moles/Vol] 111 mmol/L Normal 98-111 [facility] Comment on above: Performed By: #### P OCGL #### [place] [facility] [address] [place] [address] CO2 [Moles/Vol] 18 mmol/L Low 23-33 [facility] Comment on above: Performed By: #### P OCGL #### [facility] [address] [place] [address] Creatinine [Mass/Vol] 2.4 mg/dL High 0.4-1.2 [facility] Comment on above: Performed By: #### P OCGL #### [facility] [address] [place] [address]70 Glucose [Mass/Vol] 119 mg/dL High 70-108 [facility] Comment on above: Performed By: #### P OCGL #### [facility] [address] [place] [address]857 Potassium [Moles/Vol] 4.5 mmol/L Normal 3.5-5.2 [facility] Comment on above: Performed By: #### P OCGL #### [facility] [address] [place] [address] Sodium [Moles/Vol] 139 mmol/L Normal 135-145 [facility] Comment on above: Performed By: #### P OCGL #### [facility] [address] [place] [address]16 Urea nitrogen [Mass/Vol] 23 mg/dL High 7-22 [facility] Comment on above: Performed By: #### P OCGL #### [facility] [address] [address] Basic metabolic 2000 panelon 07-22-2022 Calcium [Mass/Vol] 7.5 mg/dL Low 8.5 - 10. 5 mg/dL [employer] [facility] Comment on above: Performed at [facility] [address] [place] [address] Chloride [Moles/Vol] 109 mmol/L 98 - 11 1 meq/L [facility] CO2 [Moles/Vol] 18 mmol/L Low 23 - 33 meq/L [employer] Creatinine [Mass/Vol] 2.4 mg/dL High 0.4 - 1.2 mg/dL [facility] Glucose [Mass/Vol] 167 mg/dL High 70 - 108 mg/dL [facility] Potassium [Moles/Vol] 4.7 mmol/L 3.5 - 5.2 meq/L [facility] Sodium [Moles/Vol] 139 mmol/L 135 - 145 meq/L [facility] Urea nitrogen [Mass/Vol] 25 mg/dL High 7 - 22 mg/dL [facility] Calcium [Mass/Vol] 6.9 mg/dL Low 8.5 - 10. 5 mg/dL [facility] Comment on above: Performed at [facility] [address] [place] [address]83 Chloride [Moles/Vol] 111 mmol/L 98 - 11 1 meq/L [facility] CO2 [Moles/Vol] 18 mmol/L Low 23 - 33 meq/L [facility] Creatinine [Mass/Vol] 2.4 mg/dL High 0.4 - 1.2 mg/dL [facility] Glucose [Mass/Vol] 119 mg/dL High 70 - 108 mg/dL [facility] Potassium [Moles/Vol] 4.5 mmol/L 3.5 - 5.2 meq/L [facility] Sodium [Moles/Vol] 139 mmol/L 135 - 145 meq/L [facility] Urea nitrogen [Mass/Vol] 23 mg/dL High 7 - 22 mg/dL [facility] CBCon 07-22-2022 Erythrocyte distribution width (RBC) [Entitic vol] 54.9 fL High 35.0 - 45.0 fL [facility] Erythrocyte distribution width (RBC) [Ratio] 15.3 % High 11.5 - 14.5 % [facility] Hematocrit (Bld) [Volume fraction] 26.8 % Low 42.0 - 52.0 % [facility] Hemoglobin (Bld) [Mass/Vol] 8.1 g/dL Low [facility] Interpretation and review of laboratory results Abnormal [facility] MCH (RBC) [Entitic mass] 29.9 pg 26.0 - 33.0 pg [facility] MCHC (RBC) [Mass/Vol] 30.2 g/dL Low [facility] MCV (RBC) [Entitic vol] 98.9 fL High 80.0 - 94.0 fL [facility] Platelet mean volume (Bld) [Entitic vol] 8.9 fL Low 9.4 - 12.4 fL [facility] Comment on above: Performed at [facility] [address] [place] [address] Platelets (Bld) [#/Vol] 157 10*3/uL [facility] RBC (Bld) [#/Vol] 2.71 10*6/uL Low [facility] WBC (Bld) [#/Vol] 8.0 10*3/uL [facility] Erythrocyte distribution width (RBC) [Entitic vol] 54.4 fL High 35.0 - 45.0 fL [facility] Erythrocyte distribution width (RBC) [Ratio] 15.1 % High 11.5 - 14.5 % [facility] Hematocrit (Bld) [Volume fraction] 26.2 % Low 42.0 - 52.0 % [facility] Hemoglobin (Bld) [Mass/Vol] 8.0 g/dL Low [facility] Interpretation and review of laboratory results Abnormal [facility] MCH (RBC) [Entitic mass] 30.4 pg 26.0 - 33.0 pg [facility] MCHC (RBC) [Mass/Vol] 30.5 g/dL Low [facility] MCV (RBC) [Entitic vol] 99.6 fL High 80.0 - 94.0 fL [facility] Platelet mean volume (Bld) [Entitic vol] 8.8 fL Low 9.4 - 12.4 fL [facility] Comment on above: Performed at [facility] [address] [place] [address] Platelets (Bld) [#/Vol] 137 10*3/uL [facility] RBC (Bld) [#/Vol] 2.63 10*6/uL Low [facility] WBC (Bld) [#/Vol] 7.2 10*3/uL [facility] CBC NO DIFFERENTIALon 2022 Erythrocyte distribution width (RBC) [Ratio] 15.3 % High 11.5-14.5 [facility] Comment on above: Performed By: #### P OCGL #### [facility] [address] [place] [address] Hematocrit (Bld) [Volume fraction] 26.8 % Low 42.0-52.0 [facility] Comment on above: Performed By: #### P OCGL #### [facility] [address] [place] [address] Hemoglobin (Bld) [Mass/Vol] 8.1 g/dL Low 14.0-18.0 [facility] Comment on above: Performed By: #### P OCGL #### [address] [address] MCH (RBC) [Entitic mass] 29.9 pg Normal 26.0-33.0 [facility] Comment on above: Performed By: #### P OCGL #### [address] [address] MCHC (RBC) [Mass/Vol] 30.2 g/dL Low 32.2-35.5 [facility] Comment on above: Performed By: #### P OCGL #### [address] [address] MCV (RBC) [Entitic vol] 98.9 fL High 80.0-94.0 [facility] Comment on above: Performed By: #### P OCGL #### [address] [address] PLATELET 157 thou/mm3 Normal 130-400 [facility] Comment on above: Performed By: #### P OCGL #### [place] [facility] [address] [address] Platelet mean volume (Bld) [Entitic vol] 8.9 fL Low 9.4-12.4 [facility] Comment on above: Performed By: #### P OCGL #### [address] [address] RBC 2.71 mill/mm3 Low 4.70-6.10 [facility] Comment on above: Performed By: #### P OCGL #### [place] [address] RDW-SD 54.9 fL High 35.0-45.0 [facility] Comment on above: Performed By: #### P OCGL #### [address] [address] WBC 8.0 thou/mm3 Normal 4.8-10.8 [facility] Comment on above: Performed By: #### P OCGL #### [place] [id number] Erythrocyte distribution width (RBC) [Ratio] 15.1 % High 11.5-14.5 [facility] Comment on above: Performed By: #### P OCGL #### [place] [address] Hematocrit (Bld) [Volume fraction] 26.2 % Low 42.0-52.0 [facility] Comment on above: Performed By: #### P OCGL #### [place] [id number] Hemoglobin (Bld) [Mass/Vol] 8.0 g/dL Low 14.0-18.0 [facility] Comment on above: Performed By: #### P OCGL #### [place] [id number] MCH (RBC) [Entitic mass] 30.4 pg Normal 26.0-33.0 [facility] Comment on above: Performed By: #### P OCGL #### [place] [id number] MCHC (RBC) [Mass/Vol] 30.5 g/dL Low 32.2-35.5 [facility] Comment on above: Performed By: #### P OCGL #### [address] [address] MCV (RBC) [Entitic vol] 99.6 fL High 80.0-94.0 [facility] Comment on above: Performed By: #### P OCGL #### [place] [id number] PLATELET 137 thou/mm3 Normal 130-400 [facility] Comment on above: Performed By: #### P OCGL #### [facility] [address] [place] [address] Platelet mean volume (Bld) [Entitic vol] 8.8 fL Low 9.4-12.4 [facility] Comment on above: Performed By: #### P OCGL #### [facility] [address] [place] [address]3242 RBC 2.63 mill/mm3 Low 4.70-6.10 [facility] Comment on above: Performed By: #### P OCGL #### [facility] [address] [place] [address] RDW-SD 54.4 fL High 35.0-45.0 [facility] Comment on above: Performed By: #### P OCGL #### [facility] [address] [place] [address]142 WBC 7.2 thou/mm3 Normal 4.8-10.8 [facility] Comment on above: Performed By: #### P OCGL #### [facility] [employer] [address] [address] GFR, ESTIMATEDon 07-22-2022 GFR/1.73 sq M.predicted MDRD (S/P/Bld) [Vol rate/Area] 28 mL/min/{1.73_m2} Abnormal >60 [facility] Comment on above: Result Comment: Shayla atric [...] secretion. Performed By: #### P OCGL #### [employer] [facility] [address] [place] [address]22 GFR/1.73 sq M.predicted MDRD (S/P/Bld) [Vol rate/Area] 28 mL/min/{1.73_m2} Abnormal >60 [facility] Comment on above: Result Comment: Pedmanny atric calculator link https://www.kidney.org/professionals/kdoqi/gfr_calculatorped Effective Jan 08, [...] secretion. Performed By: #### P OCGL #### [place] [facility] [address] [place] [address] GLUCOSE POCon 07-22-2022 Glucose [Mass/Vol] 213 mg/dL High [address] [facility] Comment on above: Performed By: #### P OCGL #### [place] [facility] [address] [place] [address] Glucose [Mass/Vol] 126 mg/dL High [address] Comment on above: Performed By: #### P OCGL #### [facility] [place] [facility] [address] [place] [address] Glucose [Mass/Vol] 132 mg/dL High [address] [facility] Comment on above: Performed By: #### P OCGL #### [place] [facility] [address] [place] [address] Glucose [Mass/Vol] 128 mg/dL High [address] [facility] Comment on above: Performed By: #### P OCGL ####[place] [facility] [id number] [place] [address] Glomerular Filtration Rate, Estimatedon 07-22-2022 GFR/1.73 sq M.predicted MDRD (S/P/Bld) [Vol rate/Area] 28 mL/min/{1.73_m2} Abnormal - [facility] Comment on above: Pediatric calculator link https://www.kidney.org/professionals/kdoqi/gfr_calculatorped [...] that affects renal tubular secretion. Performed at [facility] [address] [place] [address] GFR/1.73 sq M.predicted MDRD (S/P/Bld) [Vol rate/Area] 28 mL/min/{1.73_m2} Abnormal - [facility] Comment on above: Pediatric calculator link [...] that affects renal tubular secretion. Performed at [facility] [address] [place] [address] Glucose Auto test strip (Bld ) [Mass/Vol]on 07-22-2022 Glucose [Mass/Vol] 213 mg/dL High 70 - 108 mg/dl [employer] [facility] Comment on above: Performed at [facility] [address] [place] [address] Interpretation and review of laboratory results Abnormal [facility] Glucose [Mass/Vol] 126 mg/dL High 70 - 108 mg/dl [employer] [facility] Comment on above: Performed at [facility] [address] [place] [address] Interpretation and review of laboratory results Abnormal [facility] Glucose [Mass/Vol] 132 mg/dL High 70 - 108 mg/dl [facility] Comment on above: Performed at [facility] [address] [place] [address] Interpretation and review of laboratory results Abnormal [facility] Glucose [Mass/Vol] 128 mg/dL High 70 - 108 mg/dl [facility] Comment on above: Performed at [facility] [address] [place] [address] Interpretation and review of laboratory results Abnormal [facility] No Panel Informationon 07-22 Interpretation and review of laboratory results Abnormal [facility] Interpretation and review of laboratory results Abnormal [facility] ANION GAPon 07-21-2022 Anion gap [Moles/Vol] 15.0 mmol/L Normal 8.0-16.0 [facility] Comment on above: Result Comment: ANIO N GAP = Sodium -(Chloride + CO2) Performed By: #### P OCGL #### [facility] [address] [place] [address] Anion Gapon 07-21-2022 Anion gap [Moles/Vol] 15.0 mmol/L 8.0 - 16.0 meq/L [facility] Comment on above: ANION GAP = Sodium - (Chloride + CO2) Performed at [facility] [address] [place] [address] BASIC METABOL PANELon 2022 Calcium [Mass/Vol] 6.7 mg/dL Low 8.5-10.5 [facility] Comment on above: Performed By: #### P OCGL #### [facility] [address] [place] [address] Chloride [Moles/Vol] 108 mmol/L Normal 98-111 [facility] Comment on above: Performed By: #### P OCGL #### [facility] [address] [place] [address] CO2 [Moles/Vol] 18 mmol/L Low 23-33 [facility] Comment on above: Performed By: #### P OCGL #### [facility] [address] [place] [address] Creatinine [Mass/Vol] 2.0 mg/dL High 0.4-1.2 [facility] Comment on above: Performed By: #### P OCGL #### [facility] [place] [facility] [address] [place] [address] Glucose [Mass/Vol] 113 mg/dL High 70-108 [facility] Comment on above: Performed By: #### P OCGL #### [employer] [address] [place] [address] Potassium [Moles/Vol] 4.8 mmol/L Normal 3.5-5.2 [facility] Comment on above: Result Comment: Low level specimen hemolysis is present as indicated by the interference level index on the Cassidy analyzer. The reported K+ level may be falsely increased. If clinically warranted, recollection of the specimen is suggested. Performed By: #### P OCGL #### [employer] [address] [place] [address] Sodium [Moles/Vol] 141 mmol/L Normal 135-145 [facility] Comment on above: Performed By: #### P OCGL #### [facility] [address] [address] Urea nitrogen [Mass/Vol] 26 mg/dL High 7-22 [facility] Comment on above: Performed By: #### P OCGL #### [facility] [address] [address] Basic metabolic 2000 panelon 07-21-2022 Calcium [Mass/Vol] 6.7 mg/dL Low 8.5 - 10. 5 mg/dL [facility] Comment on above: Performed at [facility] [address] [place] [address] Chloride [Moles/Vol] 108 mmol/L 98 - 11 1 meq/L [employer] [facility] CO2 [Moles/Vol] 18 mmol/L Low 23 - 33 meq/L [employer] [facility] Creatinine [Mass/Vol] 2 mg/dL High 0.4 - 1.2 mg/dL [employer] Glucose [Mass/Vol] 113 mg/dL High 70 - 108 mg/dL [employer] [facility] Potassium [Moles/Vol] 4.8 mmol/L 3.5 - 5.2 meq/L [facility] Comment on above: Low level specimen h emolysis is present as indicated by the interference level index on the Cassidy analyzer. The reported K+ level may be falsely increased. If clinically warranted, recollection of the specimen is suggested. Sodium [Moles/Vol] 141 mmol/L 135 - 145 meq/L [facility] Urea nitrogen [Mass/Vol] 26 mg/dL High 7 - 22 mg/dL [facility] CBCon 07-21-2022 Erythrocyte distribution width (RBC) [Entitic vol] 52.2 fL High 35.0 - 45.0 fL [facility] Erythrocyte distribution width (RBC) [Ratio] 14.9 % High 11.5 - 14.5 % [facility] Hematocrit (Bld) [Volume fraction] 27.2 % Low 42.0 - 52.0 % [facility] Hemoglobin (Bld) [Mass/Vol] 8.7 g/dL Low [facility] Interpretation and review of laboratory results Abnormal [facility] MCH (RBC) [Entitic mass] 30.7 pg 26.0 - 33.0 pg [facility] MCHC (RBC) [Mass/Vol] 32.0 g/dL Low [facility] MCV (RBC) [Entitic vol] 96.1 fL High 80.0 - 94.0 fL [facility] Platelet mean volume (Bld) [Entitic vol] 9.1 fL Low 9.4 - 12.4 fL [facility] Comment on above: Performed at [facility] [address] [place] [address] Platelets (Bld) [#/Vol] 158 10*3/uL [facility] RBC (Bld) [#/Vol] 2.83 10*6/uL Low [facility] WBC (Bld) [#/Vol] 6.8 10*3/uL [facility] CBC NO DIFFERENTIALon 2022 Erythrocyte distribution width (RBC) [Ratio] 14.9 % High 11.5-14.5 [facility] Comment on above: Performed By: #### P OCGL #### [facility] [address] [place] [address] Hematocrit (Bld) [Volume fraction] 27.2 % Low 42.0-52.0 [facility] Comment on above: Performed By: #### P OCGL #### [facility] [address] [place] [address] Hemoglobin (Bld) [Mass/Vol] 8.7 g/dL Low 14.0-18.0 [facility] Comment on above: Performed By: #### P OCGL #### [place] [address] MCH (RBC) [Entitic mass] 30.7 pg Normal 26.0-33.0 [facility] Comment on above: Performed By: #### P OCGL #### [place] [address] MCHC (RBC) [Mass/Vol] 32.0 g/dL Low 32.2-35.5 [facility] Comment on above: Performed By: #### P OCGL #### [place] [address] MCV (RBC) [Entitic vol] 96.1 fL High 80.0-94.0 [facility] Comment on above: Performed By: #### P OCGL #### [place] [address] PLATELET 158 thou/mm3 Normal 130-400 [facility] Comment on above: Performed By: #### P OCGL #### [place] [id number] Platelet mean volume (Bld) [Entitic vol] 9.1 fL Low 9.4-12.4 [facility] Comment on above: Performed By: #### P OCGL #### [place] [address] RBC 2.83 mill/mm3 Low 4.70-6.10 [facility] Comment on above: Performed By: #### P OCGL #### [place] [id number] RDW-SD 52.2 fL High 35.0-45.0 [facility] Comment on above: Performed By: #### P OCGL #### [place] [id number] WBC 6.8 thou/mm3 Normal 4.8-10.8 [facility] Comment on above: Performed By: #### P OCGL #### [facility] [address] [place] [address] GFR, ESTIMATEDon 07-21-2022 GFR/1.73 sq M.predicted MDRD (S/P/Bld) [Vol rate/Area] 35 mL/min/{1.73_m2} Abnormal >60 [facility] Comment on above: Result Comment: Shayla atric [...] secretion. Performed By: #### P OCGL #### [facility] [employer] [address] [place] [address] GLUCOSE POCon 07-21-2022 Glucose [Mass/Vol] 119 mg/dL High [address] [facility] Comment on above: Performed By: #### P OCGL #### [facility] [address] [place] [address] Glucose [Mass/Vol] 115 mg/dL High [address] [place] [address] Comment on above: Performed By: #### P OCGL #### [facility] [address] [place] [address] Glucose [Mass/Vol] 120 mg/dL High [address] [facility] Comment on above: Performed By: #### P OCGL #### [facility] [address] [place] [address] Glucose [Mass/Vol] 111 mg/dL High [address] [facility] Comment on above: Performed By: #### P OCGL ####[facility] [id number] [place] [address] Glomerular Filtration Rate, Estimatedon 07-21-2022 GFR/1.73 sq M.predicted MDRD (S/P/Bld) [Vol rate/Area] 35 mL/min/{1.73_m2} Abnormal - [facility] Comment on above: Pediatric calculator [...] that affects renal tubular secretion. Performed at [facility] [address] [place] [address] Glucose Auto test strip (Bld ) [Mass/Vol]on 07-21-2022 Glucose [Mass/Vol] 119 mg/dL High 70 - 108 mg/dl [facility] Comment on above: Performed at [facility] [address] [place] [address] Interpretation and review of laboratory results Abnormal [facility] Glucose [Mass/Vol] 115 mg/dL High 70 - 108 mg/dl [facility] Comment on above: Performed at [facility] [address] [place] [address] Interpretation and review of laboratory results Abnormal [facility] Glucose [Mass/Vol] 120 mg/dL High 70 - 108 mg/dl [facility] Comment on above: Performed at [facility] [address] [place] [address] Interpretation and review of laboratory results Abnormal [facility] Glucose [Mass/Vol] 111 mg/dL High 70 - 108 mg/dl [facility] Comment on above: Performed at [facility] [address] [place] [address] Interpretation and review of laboratory results Abnormal [facility] No Panel Informationon 07-21 Interpretation and review of laboratory results Abnormal [facility] ANION GAPon 07-20-2022 Anion gap [Moles/Vol] 8.0 mmol/L Normal 8.0-16.0 [facility] Comment on above: Result Comment: ANIO N GAP = Sodium -(Chloride + CO2) Performed By: #### E GFR1, ANION, CBCND, BMP ####[facility] [id number] [place] [address] Anion Gapon 07-20-2022 Anion gap [Moles/Vol] 8.0 mmol/L 8.0 - 16.0 meq/L [facility] Comment on above: ANION GAP = Sodium - (Chloride + CO2) Performed at [facility] [address] [place] [address] BASIC METABOL PANELon 2022 Calcium [Mass/Vol] 7.7 mg/dL Low 8.5-10.5 [facility] Comment on above: Performed By: #### E GFR1, ANION, CBCND, BMP ####[place] [id number] [place] [address] Chloride [Moles/Vol] 109 mmol/L Normal 98-111 [facility] Comment on above: Performed By: #### E GFR1, ANION, CBCND, BMP ####[facility] [id number] [place] [address] CO2 [Moles/Vol] 25 mmol/L Normal 23-33 [facility] Comment on above: Performed By: #### E GFR1, ANION, CBCND, BMP ####[place] [id number] [place] [address] Creatinine [Mass/Vol] 2.1 mg/dL High 0.4-1.2 [facility] Comment on above: Performed By: #### E GFR1, ANION, CBCND, BMP ####[facility] [id number] [place] [address] Glucose [Mass/Vol] 132 mg/dL High 70-108 [facility] Comment on above: Performed By: #### E GFR1, ANION, CBCND, BMP ####[facility] [id number] [place] [address] Potassium [Moles/Vol] 4.2 mmol/L Normal 3.5-5.2 [facility] Comment on above: Performed By: #### E GFR1, ANION, CBCND, BMP ####[place] [facility] [address] [place] [address] Sodium [Moles/Vol] 142 mmol/L Normal 135-145 [facility] Comment on above: Performed By: #### E GFR1, ANION, CBCND, BMP ####[place] [facility] [address] [place] [address] Urea nitrogen [Mass/Vol] 30 mg/dL High 7-22 [facility] Comment on above: Performed By: #### E GFR1, ANION, CBCND, BMP ####[place] [facility] [id number] [place] [address] Basic metabolic 2000 panelon 07-20-2022 Calcium [Mass/Vol] 7.7 mg/dL Low 8.5 - 10. 5 mg/dL [facility] Comment on above: Performed at [facility] [address] [place] [address] Chloride [Moles/Vol] 109 mmol/L 98 - 11 1 meq/L [facility] CO2 [Moles/Vol] 25 mmol/L 23 - 33 meq/L [facility] Creatinine [Mass/Vol] 2.1 mg/dL High 0.4 - 1.2 mg/dL [facility] Glucose [Mass/Vol] 132 mg/dL High 70 - 108 mg/dL [facility] Potassium [Moles/Vol] 4.2 mmol/L 3.5 - 5.2 meq/L [facility] Sodium [Moles/Vol] 142 mmol/L 135 - 145 meq/L [facility] Urea nitrogen [Mass/Vol] 30 mg/dL High 7 - 22 mg/dL [facility] CBCon 07-20-2022 Erythrocyte distribution width (RBC) [Entitic vol] 49.7 fL High 35.0 - 45.0 fL [facility] Erythrocyte distribution width (RBC) [Ratio] 14.7 % High 11.5 - 14.5 % [facility] Hematocrit (Bld) [Volume fraction] 33.8 % Low 42.0 - 52.0 % [facility] Hemoglobin (Bld) [Mass/Vol] 11.2 g/dL Low [facility] Interpretation and review of laboratory results Abnormal [facility] MCH (RBC) [Entitic mass] 30.6 pg 26.0 - 33.0 pg [facility] MCHC (RBC) [Mass/Vol] 33.1 g/dL [facility] MCV (RBC) [Entitic vol] 92.3 fL 80.0 - 94.0 fL [facility] Platelet mean volume (Bld) [Entitic vol] 8.6 fL Low 9.4 - 12.4 fL [facility] Comment on above: Performed at [facility] [address] [place] [address] Platelets (Bld) [#/Vol] 180 10*3/uL [facility] RBC (Bld) [#/Vol] 3.66 10*6/uL Low [facility] S [facility] WBC (Bld) [#/Vol] 7.3 10*3/uL [facility] CBC NO DIFFERENTIALon 2022 Erythrocyte distribution width (RBC) [Ratio] 14.7 % High 11.5-14.5 [facility] Comment on above: Performed By: #### E GFR1, ANION, CBCND, BMP ####[facility] [place] [address] Hematocrit (Bld) [Volume fraction] 33.8 % Low 42.0-52.0 [facility] Comment on above: Performed By: #### E GFR1, ANION, CBCND, BMP ####[facility] [address] [place] [address] Hemoglobin (Bld) [Mass/Vol] 11.2 g/dL Low 14.0-18.0 [facility] Comment on above: Performed By: #### E GFR1, ANION, CBCND, BMP ####[facility] [address] [place] [address] MCH (RBC) [Entitic mass] 30.6 pg Normal 26.0-33.0 [facility] Comment on above: Performed By: #### E GFR1, ANION, CBCND, BMP ####[facility] [address] [place] [address] MCHC (RBC) [Mass/Vol] 33.1 g/dL Normal 32.2-35.5 [facility] Comment on above: Performed By: #### E GFR1, ANION, CBCND, BMP ####[facility] [address] [place] [address] MCV (RBC) [Entitic vol] 92.3 fL Normal 80.0-94.0 [facility] Comment on above: Performed By: #### E GFR1, ANION, CBCND, BMP ####[facility] [address] [place] [address] PLATELET 180 thou/mm3 Normal 130-400 [facility] Comment on above: Performed By: #### E GFR1, ANION, CBCND, BMP ####[facility] [address] [place] [address] Platelet mean volume (Bld) [Entitic vol] 8.6 fL Low 9.4-12.4 [facility] Comment on above: Performed By: #### E GFR1, ANION, CBCND, BMP ####[facility] [address] [place] [address] RBC 3.66 mill/mm3 Low 4.70-6.10 [facility] Comment on above: Performed By: #### E GFR1, ANION, CBCND, BMP ####[facility] [address] [place] [address] RDW-SD 49.7 fL High 35.0-45.0 [facility] Comment on above: Performed By: #### E GFR1, ANION, CBCND, BMP ####[facility] [address] [place] [address] WBC 7.3 thou/mm3 Normal 4.8-10.8 [facility] Comment on above: Performed By: #### E GFR1, ANION, CBCND, BMP ####[facility] [address] [place] [address] FLUORO FOR SURGICAL PROCEDUR ESon 07-20-2022 FLUORO FOR SURGICAL PROCEDURES Radiology exam is complete. No Radiologist dictation. Please follow up with ordering provider. Normal [facility] Radiology exam is complete. No Radiologist dictation. Please follow up with ordering provider. [facility] CONSOLID[facility] GFR, ESTIMATEDon 07-20-2022 GFR/1.73 sq M.predicted MDRD (S/P/Bld) [Vol rate/Area] 33 mL/min/{1.73_m2} Abnormal >60 [facility] Comment on above: Result Comment: Pedi atric [...] By: #### E GFR1, ANION, CBCND, BMP ####[facility] [address] [place] [address] GLUCOSE POCon 07-20-2022 Glucose [Mass/Vol] 153 mg/dL High 70-108 [facility] Comment on above: Performed By: #### P OCGL #### [facility] [address] [place] [address] Glucose [Mass/Vol] 165 mg/dL High 70-108 [facility] Comment on above: Performed By: #### P OCGL #### [facility] [address] [place] [address] Glomerular Filtration Rate, Estimatedon 07-20-2022 GFR/1.73 sq M.predicted MDRD (S/P/Bld) [Vol rate/Area] 33 mL/min/{1.73_m2} Abnormal - [facility] Comment on above: Pediatric calculator link [...] that affects renal tubular secretion. Performed at [facility] [address] [place] [address] Glucose Auto test strip (Bld ) [Mass/Vol]on 07-20-2022 Glucose [Mass/Vol] 153 mg/dL High 70 - 108 mg/dl [facility] Comment on above: Performed at [facility] [address] [place] [address] Interpretation and review of laboratory results Abnormal [facility] Glucose [Mass/Vol] 165 mg/dL High 70 - 108 mg/dl [facility] [employer] Comment on above: Performed at [facility] [address] [place] [address] Interpretation and review of laboratory results Abnormal [facility] [employer] HEMOGLOBIN A1Con 07-20-2022 Glucose [Mass/Vol] 138 mg/dL High 70-126 [facility] Comment on above: Performed By: #### H -A1C #### [facility] [employer] [address] [place] [address] HbA1c (Bld) [Mass fraction] 6.6 % High 4.4-6.4 [facility] Comment on above: Performed By: #### H -A1C #### [place] [id number] HGB,HCTon 07-20-2022 Hematocrit (Bld) [Volume fraction] 33.2 % Low 42.0-52.0 [facility] Comment on above: Performed By: #### P OCGL #### [facility] [address] [place] [address] Hemoglobin (Bld) [Mass/Vol] 10.9 g/dL Low 14.0-18.0 [facility] Comment on above: Performed By: #### P OCGL #### [facility] [employer] [address] [place] [address] HbA1c HPLC (Bld) [Mass fract ion]on 07-20-2022 Glucose mean value Estimated from glycated hemoglobin Qn (Bld) 138 mg/dL High 70 - 126 mg/dL [facility] Comment on above: Performed at [facility] [address] [place] [address] HbA1c (Bld) [Mass fraction] 6.6 % High 4.4 - 6.4 % [facility] Interpretation and review of laboratory results Abnormal [facility] No Panel Informationon 07-20 Interpretation and review of laboratory results Abnormal [facility] XR CHEST PORTABLEon 07-21-19 XR CHEST PORTABLE [...] Leander Olsen MD 07/19/22 Final result Normal [facility] XR LUMBAR SPINE (2-3 VIEWS)o n 07-20-2022 [...] Ralph Prescott MD 07/20/22 Final result Normal [facility] Postop appearance lumbar spine. This report has been created using voice recognition software. It may contain minor errors which are inherent in voice recognition technology. Final report electronically signed by Dr. Ralph Prescott on 07/20/2022 4:23 PM [facility] LUMBAR SPINE 2 VIEWS: CLINICAL INFORMATION: fusion COMPARISON: Earlier film same date, 0914 hours. TECHNIQUE: Standard AP and lateral views of lumbar spine were obtained. FINDINGS: Posterior lumbar fusion has been performed from L2 to S1 with additional screws extending across both sacroiliac joints. Moderate multifocal degenerative changes are seen. The lumbar vertebra appear normally aligned. [facility] Ralph Austin MD - 07/20/2022 LUMBAR [...] Dr. Ralph Prescott on 07/20/2022 4:23 PM [employer] Phone: Radiology Study observation (narrative) [employer] Phone: XR LUMBAR SPINE (2-3 VIEWS)O rdered By: Ralph Prescott on 07-20-2022 [employer] Phone: XR LUMBAR SPINE 1 VWon 07-20 Localizer at L2. This report has been created using voice recognition software. It may contain minor errors which are inherent in voice recognition technology. Final report electronically signed by Dr. Simba Castle on 07/20/2022 12:20 PM [facility] Simba Rider MD - 07/20/2022 PROCEDURE: XR LUMBAR SPINE 1 VW CLINICAL INFORMATION: surgery . TECHNIQUE: Crosstable lateral portable done in the OR COMPARISON: No prior study. FINDINGS: Barman localizer overlies the pedicle of L2. IMPRESSION: Localizer at L2. This report has been created using voice recognition software. It may contain minor errors which are inherent in voice recognition technology. Final report electronically signed by Dr. Simba Castle on 07/20/2022 12:20 PM [employer] Phone: Radiology Study observation (narrative) [employer] Phone: XR LUMBAR SPINE 1 VWOrdered By: Simba Castle on 07-20-2022 [facility] Work Phone: ANION GAPon 07-19-2022 Anion gap [Moles/Vol] 10.0 mmol/L Normal 8.0-16.0 [facility] Comment on above: Result Comment: ANIO N GAP = Sodium -(Chloride + CO2) Performed By: #### C BCND, ANION, EGFR1, BMP #### [facility] [address] [place] [address] Anion Gapon 07-19-2022 Anion gap [Moles/Vol] 10.0 mmol/L 8.0 - 16.0 meq/L [facility] Comment on above: ANION GAP = Sodium - (Chloride + CO2) Performed at [facility] [address] [place] [address] BASIC METABOL PANELon 2022 Calcium [Mass/Vol] 7.9 mg/dL Low 8.5-10.5 [facility] Comment on above: Performed By: #### C BCND, ANION, EGFR1, BMP #### [facility] [address] [place] [address] Chloride [Moles/Vol] 107 mmol/L Normal 98-111 [facility] Comment on above: Performed By: #### C BCND, ANION, EGFR1, BMP #### [facility] [address] [place] [address] CO2 [Moles/Vol] 24 mmol/L Normal 23-33 [facility] Comment on above: Performed By: #### C BCND, ANION, EGFR1, BMP #### [facility] [address] [place] [address] Creatinine [Mass/Vol] 2.0 mg/dL High 0.4-1.2 [facility] Comment on above: Performed By: #### C BCND, ANION, EGFR1, BMP #### [facility] [address] [place] [address] Glucose [Mass/Vol] 231 mg/dL High 70-108 [facility] Comment on above: Performed By: #### C BCND, ANION, EGFR1, BMP #### [place] [facility] [address] [place] [address] Potassium [Moles/Vol] 4.3 mmol/L Normal 3.5-5.2 [facility] Comment on above: Performed By: #### C BCND, ANION, EGFR1, BMP #### [place] [facility] [address] [place] [address] Sodium [Moles/Vol] 141 mmol/L Normal 135-145 [facility] Comment on above: Performed By: #### C BCND, ANION, EGFR1, BMP #### [place] [facility] [address] [place] [address] Urea nitrogen [Mass/Vol] 33 mg/dL High 7-22 [facility] Comment on above: Performed By: #### C BCND, ANION, EGFR1, BMP #### [place] [facility] [address] [place] [address] Basic metabolic 2000 panelon 07-19-2022 Calcium [Mass/Vol] 7.9 mg/dL Low 8.5 - 10. 5 mg/dL [facility] Comment on above: Performed at [facility] [address] [place] [address] Chloride [Moles/Vol] 107 mmol/L 98 - 11 1 meq/L [facility] CO2 [Moles/Vol] 24 mmol/L 23 - 33 meq/L [facility] Creatinine [Mass/Vol] 2 mg/dL High 0.4 - 1.2 mg/dL [facility] Glucose [Mass/Vol] 231 mg/dL High 70 - 108 mg/dL [facility] Potassium [Moles/Vol] 4.3 mmol/L 3.5 - 5.2 meq/L [facility] Sodium [Moles/Vol] 141 mmol/L 135 - 145 meq/L [facility] Urea nitrogen [Mass/Vol] 33 mg/dL High 7 - 22 mg/dL [facility] CBCon 07-19-2022 Erythrocyte distribution width (RBC) [Entitic vol] 46.5 fL High 35.0 - 45.0 fL [facility] Erythrocyte distribution width (RBC) [Ratio] 13.7 % 11.5 - 14.5 % [facility] Hematocrit (Bld) [Volume fraction] 26.9 % Low 42.0 - 52.0 % [facility] Hemoglobin (Bld) [Mass/Vol] 8.8 g/dL Low [facility] Interpretation and review of laboratory results Abnormal [facility] MCH (RBC) [Entitic mass] 30.8 pg 26.0 - 33.0 pg [facility] MCHC (RBC) [Mass/Vol] 32.7 g/dL [facility] MCV (RBC) [Entitic vol] 94.1 fL High 80.0 - 94.0 fL [facility] Platelet mean volume (Bld) [Entitic vol] 9.1 fL Low 9.4 - 12.4 fL [facility] Comment on above: Performed at [facility] [address] [place] [address] Platelets (Bld) [#/Vol] 176 10*3/uL [facility] RBC (Bld) [#/Vol] 2.86 10*6/uL Low [facility] S [facility] WBC (Bld) [#/Vol] 5.7 10*3/uL [facility] CBC NO DIFFERENTIALon 2022 Erythrocyte distribution width (RBC) [Ratio] 13.7 % Normal 11.5-14.5 [facility] Comment on above: Performed By: #### C BCND, ANION, EGFR1, BMP #### [employer] [address] [place] [address] Hematocrit (Bld) [Volume fraction] 26.9 % Low 42.0-52.0 [facility] Comment on above: Performed By: #### C BCND, ANION, EGFR1, BMP #### [employer] [address] [place] [address] Hemoglobin (Bld) [Mass/Vol] 8.8 g/dL Low 14.0-18.0 [facility] Comment on above: Performed By: #### C BCND, ANION, EGFR1, BMP #### [address] [address] MCH (RBC) [Entitic mass] 30.8 pg Normal 26.0-33.0 [facility] Comment on above: Performed By: #### C BCND, ANION, EGFR1, BMP #### [facility] [address] [place] [address] MCHC (RBC) [Mass/Vol] 32.7 g/dL Normal 32.2-35.5 [facility] Comment on above: Performed By: #### C BCND, ANION, EGFR1, BMP #### [facility] [address] [place] [address] MCV (RBC) [Entitic vol] 94.1 fL High 80.0-94.0 [facility] Comment on above: Performed By: #### C BCND, ANION, EGFR1, BMP #### [place] [address] PLATELET 176 thou/mm3 Normal 130-400 [facility] Comment on above: Performed By: #### C BCND, ANION, EGFR1, BMP #### [address] [address] Platelet mean volume (Bld) [Entitic vol] 9.1 fL Low 9.4-12.4 [facility] Comment on above: Performed By: #### C BCND, ANION, EGFR1, BMP #### [address] [address] RBC 2.86 mill/mm3 Low 4.70-6.10 [facility] Comment on above: Performed By: #### C BCND, ANION, EGFR1, BMP #### [address] [address] RDW-SD 46.5 fL High 35.0-45.0 [facility] Comment on above: Performed By: #### C BCND, ANION, EGFR1, BMP #### [address] [address] WBC 5.7 thou/mm3 Normal 4.8-10.8 [facility] Comment on above: Performed By: #### C BCND, ANION, EGFR1, BMP #### [employer] [address] [place] [address] FERRITINon 07-19-2022 Ferritin [Mass/Vol] 105 ng/mL Normal 22-322 [facility] Comment on above: Performed By: #### H -A1C #### [facility] [address] [address] Ferritinon 07-19-2022 Ferritin IA [Mass/Vol] 105 ng/mL 22 - 322 ng/mL [facility] Comment on above: Performed at [facility] [address] [place] [address] Ferritin IA [Mass/Vol]on [facility] GFR, ESTIMATEDon 07-19-2022 GFR/1.73 sq M.predicted MDRD (S/P/Bld) [Vol rate/Area] 35 mL/min/{1.73_m2} Abnormal >60 [facility] Comment on above: Result Comment: Shayla atric [...] #### C BCND, ANION, EGFR1, BMP #### [employer] [address] [place] [address] GLUCOSE POCon 07-19-2022 Glucose [Mass/Vol] 254 mg/dL High 70-108 [facility] Comment on above: Performed By: #### P OCGL #### [facility] [address] [address] Glomerular Filtration Rate, Estimatedon 07-19-2022 GFR/1.73 sq M.predicted MDRD (S/P/Bld) [Vol rate/Area] 35 mL/min/{1.73_m2} Abnormal - [facility] [employer] Comment on above: Pediatric calculator link https://www.kidney.org/professionals/kdoqi/gfr_calculatorped [...] that affects renal tubular secretion. Performed at [facility] [address] [place] [address] Glucose Auto test strip (Bld ) [Mass/Vol]on 07-19-2022 Glucose [Mass/Vol] 254 mg/dL High 70 - 108 mg/dl [facility] [employer] Comment on above: Performed at [facility] [address] [place] [address] Interpretation and review of laboratory results Abnormal [facility] [employer] Hemoglobin and Hematocrit pa smith (Bld)on 07-19-2022 Hematocrit (Bld) [Volume fraction] 33.2 % Low 42.0 - 52.0 % [facility] Comment on above: Performed at [facility] [address] [place] [address] Hemoglobin (Bld) [Mass/Vol] 10.9 g/dL Low [facility] Interpretation and review of laboratory results Abnormal [facility] [employer] IRONon 07-19-2022 Iron [Mass/Vol] 58 ug/dL Low 65-195 [facility] Comment on above: Performed By: #### P OCGL #### [employer] [address] [place] [address] Ironon 07-19-2022 Iron [Mass/Vol] 58 ug/dL Low 65 - 195 ug/dL [facility] [employer] Comment on above: Performed at [facility] [address] [place] [address] Iron [Mass/Vol]on 07-19-2022 Interpretation and review of laboratory results Abnormal [facility] [employer] LEUKO-REDUCED RCon 3 -1 LEUKOREDUCED RED CELLS [id number] transfused Normal [facility] Comment on above: Performed By: #### C BCND, ANION, EGFR1, BMP #### [employer] [address] [place] [address] -1 LEUKOREDUCED RED CELLS [id number] transfused Normal [facility] Comment on above: Performed By: #### C BCND, ANION, EGFR1, BMP #### [employer] [address] [place], [place] [id number] No Panel Informationon 07-19 Interpretation and review of laboratory results Abnormal [facility] PREPARE RBC (CROSSMATCH), 1 Unitson 07-19-2022 [id number] transfused [facility] [id number] transfused [facility] TYPE AND SCREENon 07-19-2022 ABO A [facility] Rh Factor Negative [facility] TYPE AND SCREEN CAPTUREon ABO CAPTURE A Normal [facility] Comment on above: Performed By: #### C BCND, ANION, EGFR1, BMP #### [employer] [address] [place] [address] INDIRECT GULSHAN CAPTURE Negative Normal [facility] Comment on above: Performed By: #### C BCND, ANION, EGFR1, BMP #### [employer] [address] [place] [address] RH CAPTURE (2 D CLONES) Negative Normal [facility] Comment on above: Performed By: #### C BCND, ANION, EGFR1, BMP #### [facility] [address] [place] [address] XR CHEST PORTABLEon 07-20-19 Impression: No acute cardiopulmonary disease. This document has been electronically signed by: Leander Olsen MD on 07/19/2022 10:58 PM [facility] CONSOLID[facility] Chest X-ray: 1 view. Indication: Pre-op. Comparison: None Findings: No focal consolidation, or pleural effusion. The cardiac silhouette is normal in size. Bony thorax is grossly intact. Spondylosis. [facility] CONSOL[facility] Leander Olsen MD - 07/19/2022 Chest X-ray: 1 view. Indication: Pre-op. Comparison: None Findings: No focal consolidation, or pleural effusion. The cardiac silhouette is normal in size. Bony thorax is grossly intact. Spondylosis. IMPRESSION: Impression: No acute cardiopulmonary disease. This document has been electronically signed by: Leander Olsen MD on 07/19/2022 10:58 PM [employer] Phone: Radiology Study observation (narrative) [employer] Phone: XR CHEST PORTABLEOrdered By: Leander Olsen on 07-19-2022 [employer] Phone: Office Visiton 07-18-2022 Follow-up visit [id number] Omer Santos 1950 M Date Provider Department Center 07/18/2022 IRA HECK [facility] Family History Problem Relation Age of Onset Coronary artery disease Father Other Father Heart attack Father Coronary artery disease Brother Heart attack Brother Other Brother Heart attack Paternal Grandfather Family Status - Relation Status Age at Father Brother Paternal Grandfather Level of Service:07303 [place] OFFICE/OUTPATIENT ESTABLISHED MOD MDM 30-39 MIN Reason for Visit and Comments: Follow-up [194319] - 6 month CAD, HTN Pre-op Exam [177313] - May already be cleared by family doctor reviewing stress test. Normal [facility] PTH INTACTon 07-13-2022 PTH, Intact 54 pg/mL Normal 15-65 [facility] Comment on above: Performed By: #### P THINT #### [facility] [address] [place] [address] [address] Sarah Sánchez FERRITINon 07-12-2022 Ferritin [Mass/Vol] 94.0 ng/mL Normal 26.0-388.0 [facility] Comment on above: Performed By: #### H BSANS #### [facility] [address] [place] [address] [address] Sarah Sánchez HEMOGRAM AND PLATELon 2022 Hematocrit (Bld) [Volume fraction] 30.4 % Critically low 42.0-54.0 [facility] Comment on above: Performed By: #### U DELFINO, RENAL, MG #### [facility] [address] [place] [address] Dr. Sarah Sánchez Hemoglobin (Bld) [Mass/Vol] 10.4 g/dL Critically low 14.0-18.0 [facility] Comment on above: Performed By: #### U DELFINO, RENAL, MG #### [facility] [address] [place] [address] Dr. Sarah Sánchez MCH (RBC) [Entitic mass] 31.0 pg Normal 25.9-34.0 [facility] Comment on above: Performed By: #### U DELFINO, RENAL, MG #### [facility] [address] [place] [address] Dr. Sarah Sánchez MCHC (RBC) [Mass/Vol] 34.2 g/dL Normal 29.9-35.2 [facility] Comment on above: Performed By: #### U DELFINO, RENAL, MG #### [facility] [address] [place] [address] Dr. Sarah Sánchez MCV (RBC) [Entitic vol] 90.5 fL Normal 80.0-94.0 [facility] Comment on above: Performed By: #### U DELFINO, RENAL, MG #### [facility] [address] [place] [address] Dr. Sarah Sánchez PLT 202 103/ul Normal 150-450 [facility] Comment on above: Performed By: #### U DELFINO, RENAL, MG #### [facility] [address] [place] [address] Dr. Sarah Sánchez RBC 3.36 106/ul Critically low 4.70-6.10 [facility] Comment on above: Performed By: #### U DELFINO, RENAL, MG #### [facility] [address] [place] [address] Dr. Sarah Sánchez WBC 6.7 103/ul Normal 4.0-11.0 [facility] Comment on above: Performed By: #### U DELFINO, RENAL, MG #### [facility] [address], [place] [address] Dr. Sarah Sánchez IRON AND TIBCon 07-12-2022 % SATURATION 30.1 % Normal [facility] Comment on above: Performed By: #### H BSANS #### [facility] [address] [address] [address] Sarah Sánchez Iron [Mass/Vol] 74.0 ug/dL Normal 65.0-175.0 [facility] Comment on above: Performed By: #### H BSANS #### [facility] [address] [address] [address] Sarah Sánchez TIBC DIRECT 246.0 ug/dL Critically low 250.0-450.0 [facility] Comment on above: Performed By: #### H BSANS #### [facility] [address] [address] [address] Sarah Sánchez MAGNESIUMon 07-12-2022 Magnesium [Mass/Vol] 1.1 mg/dL Critically low 1.8-2.4 [facility] Comment on above: Performed By: #### P THINT #### [facility] [address] [address] [address] Sarah Sánchez NM STRESS/REST MULTIon 07-12 NM STRESS/REST MULTI Patient: OMER SANTOS Exam Date: 07/12/2022 : 1950 Gender:M Ordering : DR RUBEN LUO . Admission #: [id number] Family : DR VADIM VERONICA M.D. Order #: [id number] CLICK HERE TO VIEW EXAM RADIOLOGY REPORT [...] M.D. on 07/12/2022 at 15:17 Normal [facility] RENAL FUNCTION PANELon 07-12 Albumin [Mass/Vol] 3.3 g/dL Critically low 3.4-5.0 [facility] Comment on above: Performed By: #### P THINT #### [facility] [address] [place] [address] Dr. Sarah Sánchez Calcium [Mass/Vol] 8.3 mg/dL Critically low 8.5-10.1 [facility] Comment on above: Performed By: #### P THINT #### [facility] [address] [place] [address] Dr. Sarah Sánchez Chloride [Moles/Vol] 107 mmol/L Normal 98-107 [facility] Comment on above: Performed By: #### P THINT #### [facility] [address] [address] [address] Sarah Sánchez CO2 [Moles/Vol] 26.4 mmol/L Normal 21.0-32.0 [facility] Comment on above: Performed By: #### P THINT #### [facility] [address] [place] [address] Dr. Sarah Sánchez Creatinine [Mass/Vol] 1.98 mg/dL Critically high 0.70-1.30 [facility] Comment on above: Performed By: #### P THINT #### [facility] [address] [place], [place] [id number] Dr. Sarah Sánchez EGFR-AF WALLISIAN 40 mL/min/1.73m2 Critically low >=60 [facility] Comment on above: Performed By: #### P THINT #### [facility] [address] [address] [address] Sarah Sánchez EGFR-NON AF WALLISIAN 33 mL/min/1.73m2 Critically low >=60 [facility] Comment on above: Performed By: #### P THINT #### [facility] [address] [address] [address] Sarah Sánchez Glucose [Mass/Vol] 149 mg/dL Critically high 74-106 [facility] Comment on above: Performed By: #### P THINT #### [facility] [address] [address] [address] Sarah Sánchez Phosphate [Mass/Vol] 4.0 mg/dL Normal 2.6-4.7 [facility] Comment on above: Performed By: #### P THINT #### [facility] [address] [address] [address] Sarah Sánchez Potassium [Moles/Vol] 4.5 mmol/L Normal 3.5-5.1 [facility] Comment on above: Performed By: #### P THINT #### [facility] [address] [address] [address] Sarah Sánchez Sodium [Moles/Vol] 141 mmol/L Normal 136-145 [facility] Comment on above: Performed By: #### P THINT #### [facility] [address] [address] [address] Sarah Sánchez Urea nitrogen [Mass/Vol] 29.0 mg/dL Critically high 7.0-18.0 [facility] Comment on above: Performed By: #### P THINT #### [facility] [address] [address] [address] Sarah Sánchez UA RANDOM W/MICROSCOPICon BACTERIA TRACE Abnormal NONE SEEN [facility] Comment on above: Performed By: #### C VDTBH #### [facility] [address] [place] [address] Dr. Sarah Sánchez Bilirubin Ql (U) Negative Normal NEGATIVE [facility] Comment on above: Performed By: #### C VDTBH #### [facility] [address] [place] [address] Dr. Sarah Sánchez CAST NONE SEEN Normal NONE SEEN [facility] Comment on above: Performed By: #### C VDTBH #### [facility] [address] [place] [address] Dr. Sarah Sánchez Clarity (U) CLEAR Normal CLEAR [facility] Comment on above: Performed By: #### C VDTBH #### [facility] [address] [place] [address] Dr. Sarah Sánchez Color (U) LT. YELLOW Normal YELLOW [facility] Comment on above: Performed By: #### C VDTBH #### [facility] [address] [place] [address] Dr. Sarah Sánchez Crystals LM Nom (Urine sed) NONE SEEN Normal NONE SEEN [facility] Comment on above: Performed By: #### C VDTBH #### [facility] [address] [place] [address] Dr. Sarah Sánchez Epithelial cells LM Ql (Urine sed) RARE Normal NONE SEEN /RARE [facility] Comment on above: Performed By: #### C VDTBH #### [facility] [address] [place] [address] Dr. Sarah Sánchez Glucose Ql (U) 100 mg/dl Abnormal NEGATIVE [facility] Comment on above: Performed By: #### C VDTBH #### [facility] [address] [place] [address] Dr. Sarah Sánchez Hemoglobin Ql (U) MODERATE Abnormal NEGATIVE [facility] Comment on above: Performed By: #### C VDTBH #### [facility] [address] [place] [address] Dr. Sarah Sánchez Ketones Ql (U) Negative Normal NEGATIVE [facility] Comment on above: Performed By: #### C VDTBH #### [facility] [address] [place] [address] Dr. Sarah Sánchez LEUKOCYTES Negative Normal NEGATIVE [facility] Comment on above: Performed By: #### C VDTBH #### [facility] [address] [place] [address] Dr. Sarah Sánchez MUCOUS NONE SEEN Normal NONE SEEN [facility] Comment on above: Performed By: #### C VDTBH #### [facility] [address] [place] [address] Dr. Sarah Sánchez Nitrite Ql (U) Negative Normal NEGATIVE [facility] Comment on above: Performed By: #### C VDTBH #### [facility] [address] [place] [address] Dr. Sarah Sánchez pH (U) 5.5 [pH] Normal 5-9 [facility] Comment on above: Performed By: #### C VDTBH #### [facility] [address] [place] [address] Dr. Sarah Sánchez RBC 2-5 Abnormal 0-2 [facility] Comment on above: Performed By: #### C VDTBH #### [facility] [address] [place] [address] Dr. Sarah Sánchez SPEC GRAVITY 1.025 Normal 1.005-<=1.02 5 [facility] Comment on above: Performed By: #### C VDTBH #### [facility] [address] [place] [address] Dr. Sarah Sánchez UA PROTEIN >300 Abnormal NEGATIVE/ TRACE [facility] Comment on above: Performed By: #### C VDTBH #### [facility] [address] [place] [address] Dr. Sarah Sánchez Urobilinogen Qn (U) 0.2 {Stevie'U}/dL Normal 0.2 - 1. 0 [facility] Comment on above: Performed By: #### C VDTBH #### [facility] [address] [place] [address] Dr. Sarah Sánchez WBC NONE SEEN Normal NONE SEEN [facility] Comment on above: Performed By: #### C VDTBH #### [facility] [address] [place] [address] Dr. Sarah Sánchez URINE T PROTEIN CREAT RATIOo n 07-12-2022 Protein (U) [Mass/Vol] 901.3 mg/dL Critically high <=12.0 [facility] Comment on above: Performed By: #### C VDTBH #### [facility] [address] [address] [address] Sarah Sánchez UR PROT CREAT RAT 7.26 Normal [facility] Comment on above: Performed By: #### C VDTBH #### [facility] [address] [address] [address] Sarah Sánchez URINE CREAT 124.19 mg/dL Normal 20.00-300.00 [facility] Comment on above: Performed By: #### C VDTBH #### [facility] [address] [address] [address] Sarah Sánchez VITAMIN D 25 OHon 07-12-2022 VIT D 25-OH 24.7 ng/mL Normal [facility] Comment on above: Performed By: #### H BSANS #### [facility] [address] [address] [address] Sarah Sánchez VIT D RANGES SEE BELOW Normal [facility] Comment on above: Result Comment: <20 ng/mL Vit D deficient 20 - <30 ng/mL Vit D insufficient 30 - 100 ng/mL Vit D sufficient >100 ng/mL Potential Toxicity Performed By: #### H BSANS #### [facility] [address] [address] [address] Sarah Sánchez XR COMPARISON OF OUTSIDE QUEENIE MSon 2022 XR COMPARISON OF OUTSIDE FILMS Radiology exam is complete. No Radiologist dictation. Please follow up with ordering provider. Normal [facility] Radiology exam is complete. No Radiologist dictation. Please follow up with ordering provider. [facility]IS CONSOLIDATED CBC AUTO DIFFon 07-02-2022 BASO # 0.0 103/ul Normal 0.0-0.1 [facility] Comment on above: Performed By: #### U DELFINO, RENAL, MG #### [facility] [address] [place] [address] Dr. Sarah Sánchez Basophils/100 WBC (Bld) 0.5 % Normal 0.2-2.0 [facility] Comment on above: Performed By: #### U DELFINO, RENAL, MG #### [facility] [address] [address] [address] Sarah Sánchez EO # 0.2 103/ul Normal 0.0-0.7 [facility] Comment on above: Performed By: #### U DELFINO, RENAL, MG #### [facility] [address] [address] [address] Sarah Sánchez Eosinophils/100 WBC (Bld) 3.4 % Normal 0.9-7.0 [facility] Comment on above: Performed By: #### U DELFINO, RENAL, MG #### [facility] [address] [place] [address] Dr. Sarah Sánchez Erythrocyte distribution width (RBC) [Ratio] 13.7 % Normal 11.0-15.0 [facility] Comment on above: Performed By: #### U DELFINO, RENAL, MG #### [facility] [address] [place] [address] Dr. Sarah Sánchez Hematocrit (Bld) [Volume fraction] 27.4 % Critically low 42.0-54.0 [facility] Comment on above: Performed By: #### U DELFINO, RENAL, MG #### [facility] [address] [place] [address] Dr. Sarah Sánchez Hemoglobin (Bld) [Mass/Vol] 9.1 g/dL Critically low 14.0-18.0 [facility] Comment on above: Performed By: #### U DELFINO, RENAL, MG #### [facility] [address] [place] [address] Dr. Sarah Sánchez IG # 0.05 10e3/ul Critically high 0.00-0.03 [facility] Comment on above: Performed By: #### U DELFINO, RENAL, MG #### [facility] [address] [place] [address] Dr. Sarah Sánchez IG % 0.8 % Critically high 0.0-0.5 [facility] Comment on above: Performed By: #### U DELFINO, RENAL, MG #### [facility] [address] [address] [address] Sarah Sánchez LYMPH # 1.3 103/ul Normal 1.2-3.8 [facility] Comment on above: Performed By: #### U DELFINO, RENAL, MG #### [facility] [address] [address] [address] Sarah Sánchez Lymphocytes/100 WBC (Bld) 20.3 % Critically low 20.5-60.0 [facility] Comment on above: Performed By: #### U DELFINO, RENAL, MG #### [facility] [address] [address] [address] Sarah Sánchez MANUAL DIFF REQ NO Normal [facility] Comment on above: Performed By: #### U DELFINO, RENAL, MG #### [facility] [address] [place] [address] Dr. Sarah Sánchez MCH (RBC) [Entitic mass] 30.2 pg Normal 25.9-34.0 [facility] Comment on above: Performed By: #### U DELFINO, RENAL, MG #### [facility] [address] [address] [address] Sarah Sánchez MCHC (RBC) [Mass/Vol] 33.2 g/dL Normal 29.9-35.2 [facility] Comment on above: Performed By: #### U DELFINO, RENAL, MG #### [facility] [address] [address] [address] Sarah Sánchez MCV (RBC) [Entitic vol] 91.0 fL Normal 80.0-94.0 [facility] Comment on above: Performed By: #### U DELFINO, RENAL, MG #### [facility] [address] [address] [address] Sarah Sánchez MONO # 0.4 103/ul Normal 0.3-0.8 [facility] Comment on above: Performed By: #### U DELFINO, RENAL, MG #### [facility] [address] [address] [address] Sarah Sánchez Monocytes/100 WBC (Bld) 6.7 % Normal 1.7-12.0 [facility] Comment on above: Performed By: #### U DELFINO, RENAL, MG #### [facility] [address] [place] [address] Dr. Sarah Sánchez NEUT # 4.5 103/ul Normal 1.4-6.5 [facility] Comment on above: Performed By: #### U DELFINO, RENAL, MG #### [facility] [address] [place] [address] Dr. Sarah Sánchez Neutrophils/100 WBC (Bld) 68.3 % Normal 43.0-75.0 [facility] Comment on above: Performed By: #### U DELFINO, RENAL, MG #### [facility] [address] [place] [address] Dr. Sarah Sánchez Platelet mean volume (Bld) [Entitic vol] 9.7 fL Normal 9.5-13.5 [facility] Comment on above: Performed By: #### U DELFINO, RENAL, MG #### [facility] [address] [place] [address] Dr. Sarah Sánchez PLT 142 103/ul Critically low 150-450 [facility] Comment on above: Performed By: #### U DELFINO, RENAL, MG #### [facility] [address] [place] [address] Dr. Sarah Sánchez RBC 3.01 106/ul Critically low 4.70-6.10 [facility] Comment on above: Performed By: #### U DELFINO, RENAL, MG #### [facility] [address] [place] [address] Dr. Sarah Sánchez WBC 6.5 103/ul Normal 4.0-11.0 [facility] Comment on above: Performed By: #### U DELFINO, RENAL, MG #### [facility] [address] [place] [address] Dr. Sarah Sánchez MRSA NARES #1on 07-02-2022 MRSA NARES #1 Culture Observations: NO GROWTH OF MRSA OR MSSA AT 48 HOURS. Normal [facility] Comment on above: Performed By: #### P THINT #### [facility] [address] [address] [address] Sarah Sánchez MRSA NARES #2on 07-02-2022 MRSA NARES #2 Culture Observations: NO GROWTH OF MRSA OR MSSA AT 48 HOURS. Normal [facility] Comment on above: Performed By: #### P THINT #### [facility] [address] [address] [address] Sarah Sánchez PROF CHEM 8 (BAS METB)on Anion gap [Moles/Vol] 12.8 mmol/L Normal [facility] Comment on above: Performed By: #### H BSANS #### [facility] [address] [address] [address] Sarah Sánchez Calcium [Mass/Vol] 8.0 mg/dL Critically low 8.5-10.1 [facility] Comment on above: Performed By: #### H BSANS #### [facility] [address] [place] [address] Dr. Sarah Sánchez Chloride [Moles/Vol] 113 mmol/L Critically high 98-107 [facility] Comment on above: Performed By: #### H BSANS #### [facility] [address] [address] [address] Sarah Sánchez CO2 [Moles/Vol] 21.9 mmol/L Normal 21.0-32.0 [facility] Comment on above: Performed By: #### H BSANS #### [facility] [address] [address] [address] Sarah Sánchez Creatinine [Mass/Vol] 2.49 mg/dL Critically high 0.70-1.30 [facility] Comment on above: Performed By: #### H BSANS #### [facility] [address] [address] [address] Sarah Sánchez EGFR-AF WALLISIAN 31 mL/min/1.73m2 Critically low >=60 [facility] Comment on above: Performed By: #### H BSANS #### [facility] [address] [address] [address] Sarah Sánchez EGFR-NON AF WALLISIAN 26 mL/min/1.73m2 Critically low >=60 [facility] Comment on above: Performed By: #### H BSANS #### [facility] [address] [address] [address] Sarah Sánchez Glucose [Mass/Vol] 153 mg/dL Critically high 74-106 [facility] Comment on above: Performed By: #### H BSANS #### [facility] [address] [address] [address] Sarah Sánchez Potassium [Moles/Vol] 4.7 mmol/L Normal 3.5-5.1 [facility] Comment on above: Performed By: #### H BSANS #### [facility] [address] [address] [address] Sarah Sánchez Sodium [Moles/Vol] 143 mmol/L Normal 136-145 [facility] Comment on above: Performed By: #### H BSANS #### [facility] [address] [address] [address] Sarah Sánchez Urea nitrogen [Mass/Vol] 50.0 mg/dL Critically high 7.0-18.0 [facility] Comment on above: Performed By: #### H BSANS #### [facility] [address] [place] [address] Dr. Sarah Sánchez Urea nitrogen/Creatinine [Mass ratio] 20.1 mg/mg Normal [facility] Comment on above: Performed By: #### H BSANS #### [facility] [address] [address] [address] Sarah Sánchez PROTIMEon 07-02-2022 INR Coag (PPP) [Relative time] 0.98 {INR} Normal [facility] Comment on above: Performed By: #### U RTPCR #### [facility] [address] [address] [address] Sarah Sánchez INR GUIDELINES SEE BELOW Normal [facility] Comment on above: Result Comment: DARIUS RED INR: 2.0 - 3.0 CONDITIONS NOT LISTED BELOW 2.5 - 3.5 FOR PROSTHETIC HEART VALVE REPLACEMENT 2.5 - 3.5 RECURRENT THROMBOSIS Performed By: #### U RTPCR #### [facility] [address] [address] [address] Sarah Sánchez PT Coag (PPP) [Time] 10.4 s Normal 9.0-11.6 [facility] Comment on above: Performed By: #### U RTPCR #### [facility] [address] [place] [address] Dr. Sarah Sánchez PTTon 07-02-2022 aPTT Coag (Bld) [Time] 20.5 s Critically low 22.3-36.2 [facility] Comment on above: Performed By: #### U RTPCR #### [facility] [address] [place] [address] Dr. Sarah Sánchez XR CHEST 2 Von [...] DIANE DUNCAN Date: 2022-07-02 09:05 Normal [facility] HEMOGRAM AND PLATELon 2022 Hematocrit (Bld) [Volume fraction] 28.5 % Critically low 42.0-54.0 [facility] Comment on above: Performed By: #### U RTPCR #### [facility] [address] [place] [address] Dr. Sarah Sánchez Hemoglobin (Bld) [Mass/Vol] 10.1 g/dL Critically low 14.0-18.0 [facility] Comment on above: Performed By: #### U RTPCR #### [facility] [address] [place] [address] Dr. Sarah Sánchez MCH (RBC) [Entitic mass] 31.3 pg Normal 25.9-34.0 [facility] Comment on above: Performed By: #### U RTPCR #### [facility] [address] [place] [address] Dr. Sarah Sánchez MCHC (RBC) [Mass/Vol] 35.4 g/dL Critically high 29.9-35.2 [facility] Comment on above: Performed By: #### U RTPCR #### [facility] [address] [place] [address] Dr. Sarah Sánchez MCV (RBC) [Entitic vol] 88.2 fL Normal 80.0-94.0 [facility] Comment on above: Performed By: #### U RTPCR #### [facility] [address] [place] [address] Dr. Sarah Sánchez PLT 171 103/ul Normal 150-450 [facility] Comment on above: Performed By: #### U RTPCR #### [facility] [address] [place] [address] Dr. Sarah Sánchez RBC 3.23 106/ul Critically low 4.70-6.10 [facility] Comment on above: Performed By: #### U RTPCR #### [facility] [address] [place] [address] Dr. Sarah Sánchez WBC 8.1 103/ul Normal 4.0-11.0 [facility] Comment on above: Performed By: #### U RTPCR #### [facility] [address] [place] [address] Dr. Sarah Sánchez 36on 06-13-2022 36 I will call her and let her know [facility] fax number. Normal [facility] CT LUMBAR SPINE WO CONTRASTo n 06-04-2022 [...] neural foraminal stenosis. At L2-L3 there is ggvo-kx-eaceuhzo bilateral neural foraminal stenosis. At L3-L4 mild [...] Grabiel Sutton MD 06/04/22 Final result Normal [facility] CT THORACIC SPINE WO CONTRAS Ton [...] disc degenerative changes with bilateral facet arthropathy. Magp-gd-qvvvjyqi right neural foraminal stenosis. Advanced disc degenerative changes T9-T10 with ojen-jg-jikblgwv right neural foraminal stenoses. At T10-T11 there [...] Grabiel Sutton MD 06/04/22 Final result Normal [facility] DEXA BONE DENSITY AXIAL SKEL ETONon 05-30-2022 DEXA BONE DENSITY AXIAL SKELETON EXAMINATION: BONE DENSITOMETRY 05/30/2022 11:17 am TECHNIQUE: A bone density dual x-ray absorptiometry (DXA) scan was performed of the lumbar spine and left hip on a [employer] system. COMPARISON: None. HISTORY: ORDERING SYSTEM PROVIDED [...] Rakesh Atwood DO 05/30/22 Final result Normal [facility] Normal bone mineral density by WHO [...] have additional risk factors. Template code: [id number] [facility] EXAMINATION: BONE DENSITOMETRY 05/30/2022 11:17 am TECHNIQUE: A bone density dual x-ray absorptiometry (DXA) scan was performed of the lumbar spine and left hip on a [employer] system. COMPARISON: None. HISTORY: ORDERING SYSTEM PROVIDED HISTORY: Osteopenia of lumbar spine Gender: M Age: 71 y/o FINDINGS: LUMBAR SPINE: L1-L4 BMD: 2.579 g/cm2 T-score: 11.3 Z-score: 11.9 LEFT TOTAL HIP: BMD: 1.212 g/cm2 T-score: 0.8 Z-score: 1.5 LEFT FEMORAL NECK: BMD: 1.204 g/cm2 T-score: 1.0 Z-score: 2.3 FRAX: Not Indicated. [facility] Rakesh Atwood DO - 05/30/2022 EXAMINATION: BONE DENSITOMETRY 05/30/2022 11:17 am TECHNIQUE: A bone density dual x-ray absorptiometry (DXA) scan was performed of the lumbar spine and left hip on a [employer] system. COMPARISON: None. HISTORY: ORDERING SYSTEM PROVIDED [...] have additional risk factors. Template code: [id number] [employer] Phone: Radiology Study observation (narrative) [employer] Phone: DEXA BONE DENSITY AXIAL SKEL ETONOrdered By: Rakesh Atwood on 05-30-2022 [employer] Phone: MRI LUMBAR SPINE WO CONTRAST on [...] L3-L4: Retrolisthesis and facet hypertrophy resulting in sjff-xh-lqixlwlh right and moderate to severe left-sided neural [...] John Vega MD 05/08/22 Final result Normal [facility] Degenerative and operative changes as detailed above. Nerve root impingement at L4-5 and L5-S1. [facility] RIS CONSOLIDATED EXAMINATION: MRI OF THE LUMBAR SPINE [...] L3-L4: Retrolisthesis and facet hypertrophy resulting in bjxl-wa-wrvgpenx right and moderate to severe left-sided neural [...] impingement of both exiting L5 nerve roots. [facility] RIS John Welch MD - 05/08/2022 EXAMINATION: MRI OF THE [...] L3-L4: Retrolisthesis and facet hypertrophy resulting in qghi-gq-rxjwreil right and moderate to severe left-sided neural [...] Nerve root impingement at L4-5 and L5-S1. [employer] [facility] Phone: Radiology Study observation (narrative) [employer] Phone: MRI LUMBAR SPINE WO CONTRAST Ordered By: John Vega on 05-08-[address] [facility] [employer] Phone: PTH INTACTon 05-08-2022 PTH, Intact 81 pg/mL Critically high 15-65 [facility] Comment on above: Performed By: #### U DELFINO, RENAL, MG #### [facility] [address] [place] [address] Dr. Sarah Sánchez FERRITINon 05-07-2022 Ferritin [Mass/Vol] 96.0 ng/mL Normal 26.0-388.0 [facility] Comment on above: Performed By: #### U RTPCR #### [facility] [address] [place] [address] Dr. Sarah Sánchez HEMOGRAM AND PLATELon 2022 Hematocrit (Bld) [Volume fraction] 24.6 % Critically low 42.0-54.0 [facility] Comment on above: Performed By: #### U DELFINO, RENAL, MG #### [facility] [address] [address] [address] Sarah Sánchez Hemoglobin (Bld) [Mass/Vol] 8.7 g/dL Critically low 14.0-18.0 [facility] Comment on above: Performed By: #### U DELFINO, RENAL, MG #### [facility] [address] [place] [address] Dr. Sarah Sánchez MCH (RBC) [Entitic mass] 31.2 pg Normal 25.9-34.0 [facility] Comment on above: Performed By: #### U DELFINO, RENAL, MG #### [facility] [address] [place] [address] Dr. Sarah Sánchez MCHC (RBC) [Mass/Vol] 35.4 g/dL Critically high 29.9-35.2 [facility] Comment on above: Performed By: #### U DELFINO, RENAL, MG #### [facility] [address] [place] [address] Dr. Sarah Sánchez MCV (RBC) [Entitic vol] 88.2 fL Normal 80.0-94.0 [facility] Comment on above: Performed By: #### U DELFINO, RENAL, MG #### [facility] [address] [place] [address] Dr. Sarah Sánchez PLT 204 103/ul Normal 150-450 [facility] Comment on above: Performed By: #### U DELFINO, RENAL, MG #### [facility] [address] [place] [address] Dr. Sarah Sánchez RBC 2.79 106/ul Critically low 4.70-6.10 [facility] Comment on above: Performed By: #### U DELFINO, RENAL, MG #### [facility] [address] [place] [address] Dr. Sarah Sánchez WBC 6.9 103/ul Normal 4.0-11.0 [facility] Comment on above: Performed By: #### U DELFINO, RENAL, MG #### [facility] [address] [place] [address] Dr. Sarah Sánchez IRON AND TIBCon 05-07-2022 % SATURATION 28.3 % Normal [facility] Comment on above: Performed By: #### U RTPCR #### [facility] [address] [place] [address] Dr. Sarah Sánchez Iron [Mass/Vol] 72.0 ug/dL Normal 65.0-175.0 [facility] Comment on above: Performed By: #### U RTPCR #### [facility] [address] [place] [address] Dr. Sarah Sánchez TIBC DIRECT 254.0 ug/dL Normal 250.0-450.[address] [facility] Comment on above: Performed By: #### U RTPCR #### [facility] [address] [address] [address] Sarah Sánchez MAGNESIUMon 05-07-2022 Magnesium [Mass/Vol] 1.7 mg/dL Critically low 1.8-2.4 [facility] Comment on above: Performed By: #### H BSANS #### [facility] [address] [address] [address] Sarah Sánchez RENAL FUNCTION PANELon 05-07 Albumin [Mass/Vol] 3.2 g/dL Critically low 3.4-5.0 [facility] Comment on above: Performed By: #### C VDTBH #### [facility] [address] [address] [address] Sarah Sánchez Calcium [Mass/Vol] 8.5 mg/dL Normal 8.5-10.1 [facility] Comment on above: Performed By: #### C VDTBH #### [facility] [address] [address] [address] Sarah Sánchez Chloride [Moles/Vol] 106 mmol/L Normal 98-107 [facility] Comment on above: Performed By: #### C VDTBH #### [facility] [address] [address] [address] Sarah Sánhcez CO2 [Moles/Vol] 28.1 mmol/L Normal 21.0-32.0 [facility] Comment on above: Performed By: #### C VDTBH #### [facility] [address] [address] [address] Sarah Sánchez Creatinine [Mass/Vol] 2.10 mg/dL Critically high 0.70-1.30 [facility] Comment on above: Performed By: #### C VDTBH #### [facility] [address] [address] [address] Sarah Sánchez EGFR-AF WALLISIAN 38 mL/min/1.73m2 Critically low >=60 [facility] Comment on above: Performed By: #### C VDTBH #### [facility] [address] [address] [address] Sarah Sánchez EGFR-NON AF WALLISIAN 31 mL/min/1.73m2 Critically low >=60 [facility] Comment on above: Performed By: #### C VDTBH #### [facility] [address] [address] [address] Sarah Sánchez Glucose [Mass/Vol] 141 mg/dL Critically high 74-106 [facility] Comment on above: Performed By: #### C VDTBH #### [facility] [address] [address] [address] Sarah Sánchez Phosphate [Mass/Vol] 4.1 mg/dL Normal 2.6-4.7 [facility] Comment on above: Performed By: #### C VDTBH #### [facility] [address] [address] [address] Sarah Sánchez Potassium [Moles/Vol] 5.2 mmol/L Critically high 3.5-5.1 [facility] Comment on above: Performed By: #### C VDTBH #### [facility] [address] [address] [address] Sarah Sánchez Sodium [Moles/Vol] 141 mmol/L Normal 136-145 [facility] Comment on above: Performed By: #### C VDTBH #### [facility] [address] [address] [address] Sarah Sánchez Urea nitrogen [Mass/Vol] 34.0 mg/dL Critically high 7.0-18.0 [facility] Comment on above: Performed By: #### C VDTBH #### [facility] [address] [address] [address] Sarah Sánchez UA RANDOM W/MICROSCOPICon BACTERIA NONE SEEN Normal NONE SEEN [facility] Comment on above: Performed By: #### U AMIC #### [facility] [address] [address] [address] Sarah Sánchez Bilirubin Ql (U) Negative Normal NEGATIVE [facility] Comment on above: Performed By: #### U AMIC #### [facility] [address] [address] [address] Sarah Sánchez CAST NONE SEEN Normal NONE SEEN [facility] Comment on above: Performed By: #### U AMIC #### [facility] [address] [address] [address] Sarah Sánchez Clarity (U) CLEAR Normal CLEAR [facility] Comment on above: Performed By: #### U AMIC #### [facility] [address] [address] [address] Sarah Sánchez Color (U) LT. YELLOW Normal YELLOW [facility] Comment on above: Performed By: #### U AMIC #### [facility] [address] [address] [address] Sarah Sánchez Crystals LM Nom (Urine sed) NONE SEEN Normal NONE SEEN [facility] Comment on above: Performed By: #### U AMIC #### [facility] [address] [address] [address] Sarah Sánchez Epithelial cells LM Ql (Urine sed) FEW Abnormal NONE SEEN /RARE [facility] Comment on above: Performed By: #### U AMIC #### [facility] [address] [address] [address] Sarah Sánchez Glucose Ql (U) Negative Normal NEGATIVE [facility] Comment on above: Performed By: #### U AMIC #### [facility] [address] [address] [address] Sarah Sánchez Hemoglobin Ql (U) SMALL Abnormal NEGATIVE [facility] Comment on above: Performed By: #### U AMIC #### [facility] [address] [address] [address] Sarah Sánchez Ketones Ql (U) Negative Normal NEGATIVE [facility] Comment on above: Performed By: #### U AMIC #### [facility] [address] [address] [address] Sarah Sánchez LEUKOCYTES Negative Normal NEGATIVE [facility] Comment on above: Performed By: #### U AMIC #### [facility] [address] [address] [address] Sarah Sánchez MUCOUS SMALL Abnormal NONE SEEN [facility] Comment on above: Performed By: #### U AMIC #### [facility] [address] [address] [address] Sarah Sánchez Nitrite Ql (U) Negative Normal NEGATIVE [facility] Comment on above: Performed By: #### U AMIC #### [facility] [address] [address] [address] Sarah Sánchez pH (U) 5.5 [pH] Normal 5-9 [facility] Comment on above: Performed By: #### U AMIC #### [facility] [address] [place] [address] Dr. Sarah Sánchez RBC 0-2 Normal 0-2 [facility] Comment on above: Performed By: #### U AMIC #### [facility] [address] [place] [address] Dr. Sarah Sánchez SPEC GRAVITY 1.020 Normal 1.005-<=1.02 5 [facility] Comment on above: Performed By: #### U AMIC #### [facility] [address] [address] [address] Sarah Sánchez UA PROTEIN >300 Abnormal NEGATIVE/ TRACE [facility] Comment on above: Performed By: #### U AMIC #### [facility] [address] [place] [address] Dr. Sarah Sánchez Urobilinogen Qn (U) 0.2 {Stevie'U}/dL Normal 0.2 - 1. 0 [facility] Comment on above: Performed By: #### U AMIC #### [facility] [address] [place] [address] Dr. Sarah Sánchez WBC NONE SEEN Normal NONE SEEN [facility] Comment on above: Performed By: #### U AMIC #### [facility] [address] [place] [address] Dr. Sarah Sánchez URIC ACID SERUMon 05-07-2022 Urate [Mass/Vol] 6.6 mg/dL Normal 3.5-7.2 [facility] Comment on above: Performed By: #### C VDTBH #### [facility] [address] [place] [address] Dr. Sarah Sánchez URINE T PROTEIN CREAT RATIOo n 05-07-2022 Protein (U) [Mass/Vol] 422.7 mg/dL Critically high <=12.0 [facility] Comment on above: Performed By: #### U DELFINO, RENAL, MG #### [facility] [address] [place] [address] Dr. Sarah Sánchez UR PROT CREAT RAT 4.90 Normal [facility] Comment on above: Performed By: #### U DELFINO, RENAL, MG #### [facility] [address] [place] [address] Dr. Sarah Sánchez URINE CREAT 86.31 mg/dL Normal 20.00-300.00 [facility] Comment on above: Performed By: #### U DELFINO, RENAL, MG #### [facility] [address] [place] [address] Dr. Sarah Sánchez VIT B12 AND FOLATEon 023 Cobalamin (Vitamin B12) [Mass/Vol] 824.0 pg/mL Normal 193.0-986.0 [facility] Comment on above: Performed By: #### U RTPCR #### [facility] [address] [place] [address] Dr. Sarah Sánchez FOLATE 21.80 ng/mL Normal 8.60-58.90 [facility] Comment on above: Performed By: #### U RTPCR #### [facility] [address] [place] [address] Dr. Sarah Sánchez VITAMIN D 25 OHon 05-07-2022 VIT D 25-OH 21.5 ng/mL Normal [facility] Comment on above: Performed By: #### U RTPCR #### [facility] [address] [place] [address] Dr. Sarah Sánchez VIT D RANGES SEE BELOW Normal [facility] Comment on above: Result Comment: <20 ng/mL Vit D deficient 20 - <30 ng/mL Vit D insufficient 30 - 100 ng/mL Vit D sufficient >100 ng/mL Potential Toxicity Performed By: #### U RTPCR #### [facility] [address] [address] [address] Sarah Sánchez Glucose Glucometer (BldC) [M ass/Vol]Ordered By: Orlando Beaver on 04-16-2022 Glucose [Mass/Vol] 150 mg/dL [facility] Comment on above: Random Glucose Refer ence Range is dependent on time and content of last meal. Glucose of more than 200 mg/dL in a nonstressed, ambulatory subject supports the diagnosis of Diabetes Mellitus. GLYCOHEMOGLOBIN A1Con 2022 ADA RECOMMENDATION SEE BELOW Normal [facility] Comment on above: Result Comment: ADA RECOMMENDED LIMIT 4.0 - 6.0 ADA THERAPEUTIC TARGET < 7.0 ACTION SUGGESTED > 7.0 Performed By: #### H BSANS #### [facility] [address] [place] [address] Dr. Sarah Sánchez Glucose [Mass/Vol] 177 mg/dL Normal [facility] Comment on above: Performed By: #### H BSANS #### [facility] [address] [place] [address] Dr. Sarah Sánchez HbA1c (Bld) [Mass fraction] 7.8 % Critically high 4.5-6.2 [facility] Comment on above: Performed By: #### H BSANS #### [facility] [address] [place] [address] Dr. Sarah Sánchez LIPID PROFILEon 04-13-2022 CHOL-HDL RATIO NORM SEE BELOW Normal [facility] Comment on above: Result Comment: 3.3 - 4.4 LOW RISK 4.4 - 7.1 AVERAGE RISK 7.1 - 11.0 MODERATE RISK >11.0 HIGH RISK Performed By: #### U RTPCR #### [facility] [address] [place] [address] Dr. Sarah Sánchez Cholesterol [Mass/Vol] 124 mg/dL Normal <=200 [facility] Comment on above: Performed By: #### U RTPCR #### [facility] [address] [place] [address] Dr. Sarah Sánchez Cholesterol in HDL [Mass/Vol] 38 mg/dL Critically low 40-60 [facility] Comment on above: Performed By: #### U RTPCR #### [facility] [address] [place] [address] Dr. Sarah Sánchez Cholesterol in LDL [Mass/Vol] 51.8 mg/dL Normal [facility] Comment on above: Performed By: #### U RTPCR #### [facility] [address] [place] [address] Dr. Sarah Sánchez Cholesterol.total/Chol esterol in HDL [Mass ratio] 3.3 {ratio} Normal [facility] Comment on above: Performed By: #### U RTPCR #### [facility] [address] [place] [address] Dr. Sarah Sánchez HDL NORMAL > or = 60 mg/dl - LOW CARDIOVASCULAR RISK <40 mg/dl - HIGH CARDIOVASCULAR RISK Normal [facility] Comment on above: Performed By: #### U RTPCR #### [facility] [address] [place] [address] Dr. Sarah Sánchez LDL CALC NORMAL SEE BELOW Normal [facility] Comment on above: Result Comment: <100 mg/dl OPTIMAL 100 - 129 mg/dl NEAR OR ABOVE OPTIMAL 130 - 159 mg/dl BORDERLINE HIGH 160 - 189 mg/dl HIGH >190 mg/dl VERY HIGH Performed By: #### U RTPCR #### [facility] [address] [place] [address] Dr. Sarah Sánchez Triglyceride [Mass/Vol] 171 mg/dL Critically high <=150 [facility] Comment on above: Performed By: #### U RTPCR #### [facility] [address] [place] [address] Dr. Sarah Sánchez VLDL CALC 34.2 mg/dL Normal [facility] Comment on above: Performed By: #### U RTPCR #### [facility] [address] [place] [address] Dr. Sarah Sánchez PROF 14(COMP METB)on 023 Albumin [Mass/Vol] 2.9 g/dL Critically low 3.4-5.0 [facility] Comment on above: Performed By: #### U RTPCR #### [facility] [address] [place] [address] Dr. Sarah Sánchez Albumin/Globulin [Mass ratio] 0.9 {ratio} Normal [facility] Comment on above: Performed By: #### U RTPCR #### [facility] [address] [place] [address] Dr. Sarah Sánchez ALP [Catalytic activity/Vol] 94 U/L Normal 46-116 [facility] Comment on above: Performed By: #### U RTPCR #### [facility] [address] [place] [address] Dr. Sarah Sánchez ALT [Catalytic activity/Vol] 21 U/L Normal 16-63 [facility] Comment on above: Performed By: #### U RTPCR #### [facility] [address] [place] [address] Dr. Sarah Sánchez Anion gap [Moles/Vol] 11.4 mmol/L Normal [facility] Comment on above: Performed By: #### U RTPCR #### [facility] [address] [place] [address] Dr. Sarah Sánchez AST [Catalytic activity/Vol] 19 U/L Normal 15-37 [facility] Comment on above: Performed By: #### U RTPCR #### [facility] [address] [place] [address] Dr. Sarah Sánchez Bilirubin [Mass/Vol] 0.5 mg/dL Normal 0.2-1.0 [facility] Comment on above: Performed By: #### U RTPCR #### [facility] [address] [place] [address] Dr. Sarah Sánchez Calcium [Mass/Vol] 8.4 mg/dL Critically low 8.5-10.1 [facility] Comment on above: Performed By: #### U RTPCR #### [facility] [address] [place] [address] Dr. Sarah Sánchez Chloride [Moles/Vol] 106 mmol/L Normal 98-107 [facility] Comment on above: Performed By: #### U RTPCR #### [facility] [address] [address] [address] Sarah Sánchez CO2 [Moles/Vol] 27.3 mmol/L Normal 21.0-32.0 [facility] Comment on above: Performed By: #### U RTPCR #### [facility] [address] [place] [address] Dr. Sarah Sánchez Creatinine [Mass/Vol] 2.40 mg/dL Critically high 0.70-1.30 [facility] Comment on above: Performed By: #### U RTPCR #### [facility] [address] [place] [address] Dr. Sarah Sánchez EGFR-AF WALLISIAN 32 mL/min/1.73m2 Critically low >=60 [facility] Comment on above: Performed By: #### U RTPCR #### [facility] [address] [place] [address] Dr. Sarah Sánchez EGFR-NON AF WALLISIAN 27 mL/min/1.73m2 Critically low >=60 [facility] Comment on above: Performed By: #### U RTPCR #### [facility] [address] [place] [address] Dr. Sarah Sánchez Globulin (S) [Mass/Vol] 3.1 g/dL Normal [facility] Comment on above: Performed By: #### U RTPCR #### [facility] [address] [place] [address] Dr. Sarah Sánchez Glucose [Mass/Vol] 159 mg/dL Critically high 74-106 [facility] Comment on above: Performed By: #### U RTPCR #### [facility] [address] [address] [address] Sarah Sánchez Potassium [Moles/Vol] 4.7 mmol/L Normal 3.5-5.1 [facility] Comment on above: Performed By: #### U RTPCR #### [facility] [address] [place] [address] Dr. Sarah Sánchez Protein [Mass/Vol] 6.0 g/dL Critically low 6.4-8.2 [facility] Comment on above: Performed By: #### U RTPCR #### [facility] [address] [address] [address] Sarah Sánchez Sodium [Moles/Vol] 140 mmol/L Normal 136-145 [facility] Comment on above: Performed By: #### U RTPCR #### [facility] [address] [address] [address] Sarah Sánchez Urea nitrogen [Mass/Vol] 32.0 mg/dL Critically high 7.0-18.0 [facility] Comment on above: Performed By: #### U RTPCR #### [facility] [address] [address] [address] Sarah Sánchez Urea nitrogen/Creatinine [Mass ratio] 13.3 mg/mg Normal [facility] Comment on above: Performed By: #### U RTPCR #### [facility] [address] [address] [address] Sarah Sánchez COVID-19 SOFIAOrdered By: Rosalba Beaver on 04-12-2022 SARS-CoV+SARS-CoV-2 (COVID-19) Ag IA.rapid Ql (Resp) Negative Negative [facility] Comment on above: This is a duplicate Kyleigh SARS Antigen (SARA) result to be used for statistical tracking purpose only. No Panel InformationOrdered By: Orlando Beaver on 04-12-2022 SARS Antigen (LFIA) [facility] HEMOGRAM AND PLATELon 2021 Hematocrit (Bld) [Volume fraction] 29.0 % Critically low 42.0-54.0 [facility] Comment on above: Performed By: #### P THINT #### [facility] [address] [address] [address] Sarah Sánchez Hemoglobin (Bld) [Mass/Vol] 9.8 g/dL Critically low 14.0-18.0 [facility] Comment on above: Performed By: #### P THINT #### [facility] [address] [address] [address] Sarah Sánchez MCH (RBC) [Entitic mass] 30.1 pg Normal 25.9-34.0 [facility] Comment on above: Performed By: #### P THINT #### [facility] [address] [address] [address] Sarah Sánchez MCHC (RBC) [Mass/Vol] 33.8 g/dL Normal 29.9-35.2 [facility] Comment on above: Performed By: #### P THINT #### [facility] [address] [address] [address] Sarah Sánchez MCV (RBC) [Entitic vol] 89.0 fL Normal 80.0-94.0 [facility] Comment on above: Performed By: #### P THINT #### [facility] [address] [address] [address] Sarah Sánchez PLT 184 103/ul Normal 150-450 [facility] Comment on above: Performed By: #### P THINT #### [facility] [address] [place] [address] Dr. Sarah Sánchez RBC 3.26 106/ul Critically low 4.70-6.10 [facility] Comment on above: Performed By: #### P THINT #### [facility] [address] [address] [address] Sarah Sánchez WBC 7.7 103/ul Normal 4.0-11.0 [facility] Comment on above: Performed By: #### P THINT #### [facility] [address] [place] [address] Dr. Sarah Sánchez Covid-19 PCR (CVDTB)on 12-08 SARS-CoV-2 (COVID-19) RNA VINICIO+probe Ql (Unsp spec) Not detected Normal NOT DETECTED [facility] Comment on above: Result Comment: This test is not yet approved or cleared by the [place] FDA. When there are no FDA-approved or cleared tests available, and other criteria are met, FDA can make tests available under an emergency access mechanism called an Emergency Use Authorization (EUA). The EUA for this test is supported by the [employer] of Health and Human Service's (HHS's) declaration [...] SARS-CoV-2. Performed By: #### C VDTB #### [facility] [address] [place] [address] Dr. Sarah Sánchez IMMUNOFIX ELEC, PROTEIN ELEC URINEon 12-13-2021 Albumin, U 71.9 % Normal [facility] Comment on above: Performed By: #### H BSANS #### [facility] [address] [place] [address] Dr. Sarah Sánchez Zpnlg-8-Iynzahoh, U 3.3 % Normal [facility] Comment on above: Performed By: #### H BSANS #### [facility] [address] [place] [address] Dr. Sarah Sánchez Mfmhl-7-Dxkzgsvl, U 5.8 % Normal [facility] Comment on above: Performed By: #### H BSANS #### [facility] [address] [place] [address] Dr. Sarah Sánchez Beta Globulin, U 10.2 % Normal [facility] Comment on above: Performed By: #### H BSANS #### [facility] [address] [place] [address] Dr. Sarah Sánchez Gamma Globulin, U 8.7 % Normal [facility] Comment on above: Performed By: #### H BSANS #### [facility] [address] [place] [address] Dr. Sarah Sánchez Immunofixation Result, Urine Comment Normal [facility] Comment on above: Result Comment: No m onoclonality detected. Performed By: #### H BSANS #### [facility] [address] [place] [address] Dr. Sarah Sánchez M-Jovon, % Not Observed Normal Not Observed [facility] Comment on above: Performed By: #### H BSANS #### [facility] [address] [place] [address] Dr. Sarah Sánchez Note: Comment Normal [facility] Comment on above: Result Comment: Prot ein electrophoresis scan will follow via computer, mail, or paralegal specialist delivery. Performed By: #### H BSANS #### [facility] [address] [place] [address] Dr. Sarah Sánchez PDF . Normal [facility] Comment on above: Performed By: #### H BSANS #### [facility] [address] [address] [address] Sarah Sánchez Protein (U) [Mass/Vol] 315.2 mg/dL Normal Not Estab. T [facility] Comment on above: Result Comment: Resu lts confirmed on dilution. Performed By: #### H BSANS #### [facility] [address] [place] [address] Dr. Sarah Sánchez IMMUNOFIXATION(GRISELDA),PROTEIN ELEC(PE),FREon 12-13-2021 Albumin [Mass/Vol] 3.3 g/dL Normal 2.9-4.4 [facility] Comment on above: Performed By: #### U DELFINO, RENAL, MG #### [facility] [address] [place] [address] Dr. Sarah Sánchez Albumin/Globulin [Mass ratio] 1.3 {ratio} Normal 0.7-1.7 [facility] [facility] Comment on above: Performed By: #### U DELFINO, RENAL, MG #### [facility] [address] [place] [address] Dr. Sarah Sánchez Dagya-9-Egvqpatm 0.2 g/dL Normal 0.0-0.4 [facility] Comment on above: Performed By: #### U DELFINO, RENAL, MG #### [facility] [address] [place] [address] Dr. Sarah Sánchez Rjnrf-6-Dyiwqyqa 0.8 g/dL Normal 0.4-1.0 [facility] Comment on above: Performed By: #### U DELFINO, RENAL, MG #### [facility] [address] [address] [address] Sarah Sánchez Beta Globulin 0.9 g/dL Normal 0.7-1.3 [facility] Comment on above: Performed By: #### U DELFINO, RENAL, MG #### [facility] [address] [address] [address] Sarah Sánchez Free [place] Lt Chains,S 41.7 mg/L Critically high 3.3-19.4 [facility] Comment on above: Performed By: #### U DELFINO, RENAL, MG #### [facility] [address] [address] [address] Sarah Sánchez Free Lambda Lt Chains,S 29.4 mg/L Critically high 5.7-26.3 [facility] Comment on above: Performed By: #### U DELFINO, RENAL, MG #### [facility] [address] [place] [address] Dr. Sarah Sánchez Gamma Globulin 0.7 g/dL Normal 0.4-1.8 [facility] Comment on above: Performed By: #### U DELFINO, RENAL, MG #### [facility] [address] [address] [address] Sarah Sánchez Globulin (S) [Mass/Vol] 2.7 g/dL Normal 2.2-3.9 [facility] Comment on above: Performed By: #### U DELFINO, RENAL, MG #### [facility] [address] [address] [address] Sarah Sánchez Immunofixation Result, Serum Comment Normal [facility] Comment on above: Result Comment: No m onoclonality detected. Performed By: #### U DELFINO, RENAL, MG #### [facility] [address] [address] [address] Sarah Sánchez Immunoglobulin A, Qn, Serum 172 mg/dL Normal 61-437 [facility] Comment on above: Performed By: #### U DELFINO, RENAL, MG #### [facility] [address] [address] [address] Sarah Sánchez Immunoglobulin G, Qn, Serum 769 mg/dL Normal 603-1613 [facility] Comment on above: Performed By: #### U DELFINO, RENAL, MG #### [facility] [address] [place], [place] [address] Dr. Sarah Sánchez Immunoglobulin M, Qn, Serum 71 mg/dL Normal 15-143 [facility] Comment on above: Performed By: #### U DELFINO, RENAL, MG #### [facility] [address] [address] [address] Sarah Sánchez [place]/Lambda Ratio, S 1.42 Normal 0.26-1.65 [facility] Comment on above: Performed By: #### U DELFINO, RENAL, MG #### [facility] [address] [address] [address] Sarah Sánchez M-Jovon Not Observed Normal Not Observed [facility] Comment on above: Performed By: #### U DELFINO, RENAL, MG #### [facility] [address] [address] [address] Sarah Sánchez PDF . Normal [facility] Comment on above: Performed By: #### U DELFINO, RENAL, MG #### [facility] [address] [address] [address] Sarah Sánchez Please note: Comment Normal [facility] Comment on above: Result Comment: Prot ein electrophoresis scan will follow via computer, mail, or paralegal specialist delivery. Performed By: #### U DELFINO, RENAL, MG #### [facility] [address] [address] [address] Sarah Sánchez Protein [Mass/Vol] 6.0 g/dL Normal 6.0-8.5 [facility] Comment on above: Performed By: #### U DELFINO, RENAL, MG #### [facility] [address] [address] [address] Sarah Sánchez PTH INTACTon 12-12-2021 PTH, Intact 67 pg/mL Critically high 15-65 [facility] Comment on above: Performed By: #### P THINT #### [facility] [address] [address] [address] Sarah Sánchez HEP B SURFACE ANTIGEN SCREEN on 12-10-2021 HBsAg Screen Negative Normal Negative [facility] Comment on above: Performed By: #### H BSANS #### [facility] [address] [address] [address] Sarah Sánchez VIT D 25-OH [facility] 2021 Vitamin D, 25-Hydroxy 54.1 ng/mL Normal 30.0-100.0 [facility] Comment on above: Result Comment: Rebecca min D deficiency has been defined by the [place] of [employer] and an Endocrine Society practice guideline as a level of serum 25-OH vitamin D less than 20 ng/mL (1,2). The Endocrine Society went on to further define vitamin D insufficiency as a level between 21 and 29 ng/mL (2). 1. IOM ([place] of [employer]). 2010. Dietary reference intakes for calcium and D. [place]: The National Academies Press. 2. Carlos QUINTERO, Mary VASQUEZ, Elian BERRIOS, et al. Evaluation, treatment, and prevention of vitamin D deficiency: an Endocrine Society clinical practice guideline. JCEM. 2010; 96(7):1911-30. Performed By: #### C VDTBH #### [facility] [address] [place] [address] Dr. Sarah Sánchez CBC AUTO DIFFon 12-09-2021 BASO # 0.0 103/ul Normal 0.0-0.1 [facility] Comment on above: Performed By: #### C VDTBH #### [facility] [address] [address] [address] Sarah Sánchez Basophils/100 WBC (Bld) 0.6 % Normal 0.2-2.0 [facility] Comment on above: Performed By: #### C VDTBH #### [facility] [address] [address] [address] Sarah Sánchez EO # 0.4 103/ul Normal 0.0-0.7 [facility] Comment on above: Performed By: #### C VDTBH #### [facility] [address] [address] [address] Sarah Sánchez Eosinophils/100 WBC (Bld) 5.5 % Normal 0.9-7.0 [facility] Comment on above: Performed By: #### C VDTBH #### [facility] [address] [place] [address] Dr. Sarah Sánchez Erythrocyte distribution width (RBC) [Ratio] 13.2 % Normal 11.0-15.0 [facility] Comment on above: Performed By: #### C VDTBH #### [facility] [address] [place] [address] Dr. Sarah Sánchez Hematocrit (Bld) [Volume fraction] 27.5 % Critically low 42.0-54.0 [facility] Comment on above: Performed By: #### C VDTBH #### [facility] [address] [place] [address] Dr. Sarah Sánchez Hemoglobin (Bld) [Mass/Vol] 9.4 g/dL Critically low 14.0-18.0 [facility] Comment on above: Performed By: #### C VDTBH #### [facility] [address] [place] [address] Dr. Sarah Sánchez IG # 0.04 10e3/ul Critically high 0.00-0.03 [facility] Comment on above: Performed By: #### C VDTBH #### [facility] [address] [place] [address] Dr. Sarah Sánchez IG % 0.6 % Critically high 0.0-0.5 [facility] Comment on above: Performed By: #### C VDTBH #### [facility] [address] [place] [address] Dr. Sarah Sánchez LYMPH # 1.2 103/ul Normal 1.2-3.8 [facility] Comment on above: Performed By: #### C VDTBH #### [facility] [address] [place] [address] Dr. Sarah Sánchez Lymphocytes/100 WBC (Bld) 18.0 % Critically low 20.5-60.0 [facility] Comment on above: Performed By: #### C VDTBH #### [facility] [address] [place] [address] Dr. Sarah Sánchez MANUAL DIFF REQ NO Normal [facility] Comment on above: Performed By: #### C VDTBH #### [facility] [address] [place] [address] Dr. Sarah Sánchez MCH (RBC) [Entitic mass] 31.0 pg Normal 25.9-34.0 [facility] Comment on above: Performed By: #### C VDTBH #### [facility] [address] [place] [address] Dr. Sarah Sánchez MCHC (RBC) [Mass/Vol] 34.2 g/dL Normal 29.9-35.2 [facility] Comment on above: Performed By: #### C VDTBH #### [facility] [address] [place] [address] Dr. Sarah Sánchez MCV (RBC) [Entitic vol] 90.8 fL Normal 80.0-94.0 [facility] Comment on above: Performed By: #### C VDTBH #### [facility] [address] [place] [address] Dr. Sarah Sánchez MONO # 0.4 103/ul Normal 0.3-0.8 [facility] Comment on above: Performed By: #### C VDTBH #### [facility] [address] [place] [address] Dr. Sarah Sánchez Monocytes/100 WBC (Bld) 5.9 % Normal 1.7-12.0 [facility] Comment on above: Performed By: #### C VDTBH #### [facility] [address] [place] [address] Dr. Sarah Sánchez NEUT # 4.7 103/ul Normal 1.4-6.5 [facility] Comment on above: Performed By: #### C VDTBH #### [facility] [address] [place] [address] Dr. Sarah Sánchez Neutrophils/100 WBC (Bld) 69.4 % Normal 43.0-75.0 [facility] Comment on above: Performed By: #### C VDTBH #### [facility] [address] [place] [address] Dr. Sarah Sánchez Platelet mean volume (Bld) [Entitic vol] 8.9 fL Critically low 9.5-13.5 [facility] Comment on above: Performed By: #### C VDTBH #### [facility] [address] [place] [address] Dr. Sarah Sánchez PLT 191 103/ul Normal 150-450 [facility] Comment on above: Performed By: #### C VDTBH #### [facility] [address] [place] [address] Dr. Sarah Sánchez RBC 3.03 106/ul Critically low 4.70-6.10 [facility] Comment on above: Performed By: #### C VDTBH #### [facility] [address] [place] [address] Dr. Sarah Sánchez WBC 6.8 103/ul Normal 4.0-11.0 [facility] Comment on above: Performed By: #### C VDTBH #### [facility] [address] [place] [address] Dr. Sarah Sánchez FERRITINon 12-09-2021 Ferritin [Mass/Vol] 88.0 ng/mL Normal 26.0-388.0 [facility] Comment on above: Performed By: #### U DELFINO, RENAL, MG #### [facility] [address] [place] [address] Dr. Sarah Sánchez IRON AND TIBCon 12-09-2021 % SATURATION 25.0 % Normal [facility] Comment on above: Performed By: #### U DELFINO, RENAL, MG #### [facility] [address] [place] [address] Dr. Sarah Sánchez Iron [Mass/Vol] 63.0 ug/dL Critically low 65.0-175.0 [facility] Comment on above: Performed By: #### U DELFINO, RENAL, MG #### [facility] [address] [place] [address] Dr. Sarah Sánchez TIBC DIRECT 252.0 ug/dL Normal 250.0-450.0 [facility] Comment on above: Performed By: #### U DELFINO, RENAL, MG #### [facility] [address] [address] [address] Sarah Sánchez MAGNESIUMon 12-09-2021 Magnesium [Mass/Vol] 1.5 mg/dL Critically low 1.8-2.4 [facility] Comment on above: Performed By: #### P THINT #### [facility] [address] [place] [address] Dr. Sarah Sánchez RENAL FUNCTION PANELon 12-09 Albumin [Mass/Vol] 3.3 g/dL Critically low 3.4-5.0 [facility] Comment on above: Performed By: #### U DELFINO, MG, RENAL #### [facility] [address] [place] [address] Dr. Sarah Sánchez Calcium [Mass/Vol] 8.3 mg/dL Critically low 8.5-10.1 [facility] Comment on above: Performed By: #### U DELFINO, MG, RENAL #### [facility] [address] [place] [address] Dr. Sarah Sánchez Chloride [Moles/Vol] 108 mmol/L Critically high 98-107 [facility] Comment on above: Performed By: #### U DELFINO, MG, RENAL #### [facility] [address] [place] [address] Dr. Sarah Sánchez CO2 [Moles/Vol] 24.0 mmol/L Normal 21.0-32.0 [facility] Comment on above: Performed By: #### U DELFINO, MG, RENAL #### [facility] [address] [place] [address] Dr. Sarah Sánchez Creatinine [Mass/Vol] 1.92 mg/dL Critically high 0.70-1.30 [facility] Comment on above: Performed By: #### U DELFINO, MG, RENAL #### [facility] [address] [place] [address] Dr. Sarah Sánchez EGFR-AF WALLISIAN 42 mL/min/1.73m2 Critically low >=60 [facility] Comment on above: Performed By: #### U DELFINO, MG, RENAL #### [facility] [address] [place] [address] Dr. Sarah Sánchez EGFR-NON AF [place] 35 mL/min/1.73m2 Critically low >=60 [facility] Comment on above: Performed By: #### U DELFINO, MG, RENAL #### [facility] [address] [address] [address] Sarah Sánchez Glucose [Mass/Vol] 130 mg/dL Critically high 74-106 [facility] Comment on above: Performed By: #### U DELFINO, MG, RENAL #### [facility] [address] [address] [address] Sarah Sánchez Phosphate [Mass/Vol] 4.0 mg/dL Normal 2.6-4.7 [facility] Comment on above: Performed By: #### U DELFINO, MG, RENAL #### [facility] [address] [place] [address] Dr. Sarah Sánchez Potassium [Moles/Vol] 5.0 mmol/L Normal 3.5-5.1 [facility] Comment on above: Performed By: #### U DELFINO, MG, RENAL #### [facility] [address] [place] [address] Dr. Sarah Sánchez Sodium [Moles/Vol] 140 mmol/L Normal 136-145 [facility] Comment on above: Performed By: #### U DELFINO, MG, RENAL #### [facility] [address] [place] [address] Dr. Sarah Sánchez Urea nitrogen [Mass/Vol] 38.0 mg/dL Critically high 7.0-18.0 [facility] Comment on above: Performed By: #### U DELFINO, MG, RENAL #### [facility] [address] [place] [address] Dr. Sarah Sánchez UA RANDOM W/MICROSCOPICon BACTERIA NONE SEEN Normal NONE SEEN [facility] Comment on above: Performed By: #### U DELFINO, RENAL, MG #### [facility] [address] [place] [address] Dr. Sarah Sánchez Bilirubin Ql (U) Negative Normal NEGATIVE [facility] Comment on above: Performed By: #### U DELIFNO, RENAL, MG #### [facility] [address] [address] [address] Sarah Sánchez CAST SEEN Abnormal NONE SEEN [facility] Comment on above: Performed By: #### U DELFINO, RENAL, MG #### [facility] [address] [address] [address] Sarah Sánchez Clarity (U) CLEAR Normal CLEAR [facility] Comment on above: Performed By: #### U DELFINO, RENAL, MG #### [facility] [address] [address] [address] Sarah Sánchez Color (U) LT. YELLOW Normal YELLOW [facility] Comment on above: Performed By: #### U DELFINO, RENAL, MG #### [facility] [address] [address] [address] Sarah Sánchez Crystals LM Nom (Urine sed) NONE SEEN Normal NONE SEEN [facility] Comment on above: Performed By: #### U DELFINO, RENAL, MG #### [facility] [address] [place] [address] Dr. Sarah Sánchez Epithelial cells LM Ql (Urine sed) RARE Normal NONE SEEN /RARE [facility] Comment on above: Performed By: #### U DELFINO, RENAL, MG #### [facility] [address] [address] [address] Sarah Sánchez Glucose Ql (U) 100 mg/dl Abnormal NEGATIVE [facility] Comment on above: Performed By: #### U DELFINO, RENAL, MG #### [facility] [address] [address] [address] Sarah Sánchez Hemoglobin Ql (U) SMALL Abnormal NEGATIVE [facility] Comment on above: Performed By: #### U DELFINO, RENAL, MG #### [facility] [address] [address] [address] Sarah Sánchez HYALINE CAST RARE Normal [facility] Comment on above: Performed By: #### U DELFINO, RENAL, MG #### [facility] [address] [address] [address] Sarah Sánchez Ketones Ql (U) Negative Normal NEGATIVE [facility] Comment on above: Performed By: #### U DELFINO, RENAL, MG #### [facility] [address] [address] [address] Sarah Sánchez LEUKOCYTES Negative Normal NEGATIVE [facility] Comment on above: Performed By: #### U DELFINO, RENAL, MG #### [facility] [address] [address] [address] Sarah Sánchez MUCOUS TRACE Abnormal NONE SEEN [facility] Comment on above: Performed By: #### U DELFINO, RENAL, MG #### [facility] [address] [address] [address] Sarah Sánchez Nitrite Ql (U) Negative Normal NEGATIVE [facility] Comment on above: Performed By: #### U DELFINO, RENAL, MG #### [facility] [address] [place] [address] Dr. Sarah Sánchez pH (U) 5.5 [pH] Normal 5-9 [facility] Comment on above: Performed By: #### U DELFINO, RENAL, MG #### [facility] [address] [place] [address] Dr. Sarah Sánchez RBC 0-2 Normal 0-2 [facility] Comment on above: Performed By: #### U DELFINO, RENAL, MG #### [facility] [address] [address] [address] Sarah Sánchez SPEC GRAVITY 1.020 Normal 1.005-<=1.02 5 [facility] Comment on above: Performed By: #### U DELFINO, RENAL, MG #### [facility] [address] [address] [address] Sarah Sánchez UA PROTEIN 300 mg/dl Abnormal NEGATIVE/ TRACE [facility] Comment on above: Performed By: #### U DELFINO, RENAL, MG #### [facility] [address] [address] [address] Sarah Sánchez Urobilinogen Qn (U) 0.2 {Stevie'U}/dL Normal 0.2 - 1. 0 [facility] Comment on above: Performed By: #### U DELFINO, RENAL, MG #### [facility] [address] [place] [address] Dr. Sarah Sánchez WBC NONE SEEN Normal NONE SEEN [facility] Comment on above: Performed By: #### U DELFINO, RENAL, MG #### [facility] [address] [address] [address] Sarah Sánchez URIC ACID SERUMon 12-09-2021 Urate [Mass/Vol] 6.6 mg/dL Normal 3.5-7.2 [facility] Comment on above: Performed By: #### U DELFINO, MG, RENAL #### [facility] [address] [address] [address] Sarah Sánchez URINE T PROTEIN CREAT RATIOo n 12-09-2021 Protein (U) [Mass/Vol] 313.7 mg/dL Critically high <=12.0 [facility] Comment on above: Performed By: #### H BSANS #### [facility] [address] [place] [address] Dr. Sarah Sánchez UR PROT CREAT RAT 5.47 Normal [facility] Comment on above: Performed By: #### H BSANS #### [facility] [address] [address] [address] Sarah Sánchez URINE CREAT 57.37 mg/dL Normal 20.00-300.00 [facility] Comment on above: Performed By: #### H BSANS #### [facility] [address] [place] [address] Dr. Sarah Sánchez VIT B12 AND FOLATEon 022 Cobalamin (Vitamin B12) [Mass/Vol] 1831.0 pg/mL Critically high 193.0-986.0 [facility] Comment on above: Performed By: #### U DELFINO, RENAL, MG #### [facility] [address] [place] [address] Dr. Sarah Sánchez FOLATE 20.90 ng/mL Normal 8.60-58.90 [facility] Comment on above: Performed By: #### U DELFINO, RENAL, MG #### [facility] [address] [place] [address] Dr. Sarah Sánchez GLYCOHEMOGLOBIN A1Con 2021 ADA RECOMMENDATION SEE BELOW Normal [facility] Comment on above: Result Comment: ADA RECOMMENDED LIMIT 4.0 - 6.0 ADA THERAPEUTIC TARGET < 7.0 ACTION SUGGESTED > 7.0 Performed By: #### U DELFINO, RENAL, MG #### [facility] [address] [place] [address] Dr. Sarah Sánchez Glucose [Mass/Vol] 137 mg/dL Normal [facility] Comment on above: Performed By: #### U DELFINO, RENAL, MG #### [facility] [address] [place] [address] Dr. Sarah Sánchez HbA1c (Bld) [Mass fraction] 6.4 % Critically high 4.5-6.2 [facility] Comment on above: Performed By: #### U DELFINO, RENAL, MG #### [facility] [address] [place] [address] Dr. Sarah Sánchez PTH INTACTon 09-16-2021 PTH, Intact 57 pg/mL Normal 15-65 [facility] Comment on above: Performed By: #### U RTPCR #### [facility] [address] [place] [address] Dr. Sarah Sánchez HEMOGRAM AND PLATELon 2021 Hematocrit (Bld) [Volume fraction] 27.7 % Critically low 42.0-54.0 [facility] Comment on above: Performed By: #### H BSANS #### [facility] [address] [place] [address] Dr. Sarah Sánchez Hemoglobin (Bld) [Mass/Vol] 9.5 g/dL Critically low 14.0-18.0 [facility] Comment on above: Performed By: #### H BSANS #### [facility] [address] [place] [address] Dr. Sarah Sánchez MCH (RBC) [Entitic mass] 31.1 pg Normal 25.9-34.0 [facility] Comment on above: Performed By: #### H BSANS #### [facility] [address] [place] [address] Dr. Sarah Sánchez MCHC (RBC) [Mass/Vol] 34.3 g/dL Normal 29.9-35.2 [facility] Comment on above: Performed By: #### H BSANS #### [facility] [address] [address] [address] Sarah Sánchez MCV (RBC) [Entitic vol] 90.8 fL Normal 80.0-94.0 [facility] Comment on above: Performed By: #### H BSANS #### [facility] [address] [address] [address] Sarah Sánchez PLT 217 103/ul Normal 150-450 [facility] Comment on above: Performed By: #### H BSANS #### [facility] [address] [address] [address] Sarah Sácnhez RBC 3.05 106/ul Critically low 4.70-6.10 [facility] Comment on above: Performed By: #### H BSANS #### [facility] [address] [place] [address] Dr. Sarah Sánchez WBC 6.9 103/ul Normal 4.0-11.0 [facility] Comment on above: Performed By: #### H BSANS #### [facility] [address] [place] [address] Dr. Sarah Sánchez MAGNESIUMon 09-15-2021 Magnesium [Mass/Vol] 1.6 mg/dL Critically low 1.8-2.4 [facility] Comment on above: Performed By: #### U DELFINO, RENAL, MG #### [facility] [address] [place] [address] Dr. Sarah Sánchez RENAL FUNCTION PANELon 09-15 Albumin [Mass/Vol] 3.3 g/dL Critically low 3.4-5.0 [facility] Comment on above: Performed By: #### U DELFINO, RENAL, MG #### [facility] [address] [address] [address] Sarah Sánchez Calcium [Mass/Vol] 8.3 mg/dL Critically low 8.5-10.1 [facility] Comment on above: Performed By: #### U DELFINO, RENAL, MG #### [facility] [address] [address] [address] Sarah Sánchez Chloride [Moles/Vol] 107 mmol/L Normal 98-107 [facility] Comment on above: Performed By: #### U DELFINO, RENAL, MG #### [facility] [address] [address] [address] Sarah Sánchez CO2 [Moles/Vol] 23.8 mmol/L Normal 21.0-32.0 [facility] Comment on above: Performed By: #### U DELFINO, RENAL, MG #### [facility] [address] [place] [address] Dr. Sarah Sánchez Creatinine [Mass/Vol] 1.87 mg/dL Critically high 0.70-1.30 [facility] Comment on above: Performed By: #### U DELFINO, RENAL, MG #### [facility] [address] [place] [address] Dr. Sarah Sánchez EGFR-AF [place] 43 mL/min/1.73m2 Critically low >=60 [facility] Comment on above: Performed By: #### U DELFINO, RENAL, MG #### [facility] [address] [place] [address] Dr. Sarah Sánchez EGFR-NON AF [place]ALL[place]IAN 36 mL/min/1.73m2 Critically low >=60 [facility] Comment on above: Performed By: #### U DELFINO, RENAL, MG #### [facility] [address] [place] [address] Dr. Sarah Sánchez Glucose [Mass/Vol] 120 mg/dL Critically high 74-106 [facility] Comment on above: Performed By: #### U DELFINO, RENAL, MG #### [facility] [address] [place] [address] Dr. Sarah Sánchez Phosphate [Mass/Vol] 3.8 mg/dL Normal 2.6-4.7 [facility] Comment on above: Performed By: #### U DELFINO, RENAL, MG #### [facility] [address] [place] [address] Dr. Sarah Sánchez Potassium [Moles/Vol] 4.5 mmol/L Normal 3.5-5.1 [facility] Comment on above: Performed By: #### U DELFINO, RENAL, MG #### [facility] [address] [address] [address] Sarah Sánchez Sodium [Moles/Vol] 140 mmol/L Normal 136-145 [facility] Comment on above: Performed By: #### U DELFINO, RENAL, MG #### [facility] [address] [place] [address] Dr. Sarah Sánchez Urea nitrogen [Mass/Vol] 34.0 mg/dL Critically high 7.0-18.0 [facility] Comment on above: Performed By: #### U DELFINO, RENAL, MG #### [facility] [address] [place] [address] Dr. Sarah Sánchez UA RANDOM W/MICROSCOPICon BACTERIA NONE SEEN Normal NONE SEEN [facility] Comment on above: Performed By: #### C VDTBH #### [facility] [address] [place] [address] Dr. Sarah Sánchez Bilirubin Ql (U) Negative Normal NEGATIVE [facility] Comment on above: Performed By: #### C VDTBH #### [facility] [address] [place] [address] Dr. Sarah Sánchez CAST SEEN Abnormal NONE [facility] Comment on above: Performed By: #### C VDTBH #### [facility] [address] [place] [address] Dr. Sarah Sánchez Clarity (U) CLEAR Normal CLEAR [facility] Comment on above: Performed By: #### C VDTBH #### [facility] [address] [place] [address] Dr. Sarah Sánchez COARSE GRANULAR CAST RARE Normal [facility] Comment on above: Performed By: #### C VDTBH #### [facility] [address] [place] [address] Dr. Sarah Sánchez Color (U) LT. YELLOW Normal YELLOW [facility] Comment on above: Performed By: #### C VDTBH #### [facility] [address] [place] [address] Dr. Sarah Sánchez Crystals LM Nom (Urine sed) NONE SEEN Normal NONE SEEN [facility] Comment on above: Performed By: #### C VDTBH #### [facility] [address] [address] [address] Sarah Sánchez Epithelial cells LM Ql (Urine sed) FEW Abnormal NONE SEEN /RARE [facility] Comment on above: Performed By: #### C VDTBH #### [facility] [address] [address] [address] Sarah Sánchez Glucose Ql (U) Negative Normal NEGATIVE [facility] Comment on above: Performed By: #### C VDTBH #### [facility] [address] [place] [address] Dr. Sarah Sánchez Hemoglobin Ql (U) MODERATE Abnormal NEGATIVE [facility] Comment on above: Performed By: #### C VDTBH #### [facility] [address] [place] [address] Dr. Sarah Sánchez Ketones Ql (U) Negative Normal NEGATIVE [facility] Comment on above: Performed By: #### C VDTBH #### [facility] [address] [place] [address] Dr. Sarah Sánchez LEUKOCYTES Negative Normal NEGATIVE [facility] Comment on above: Performed By: #### C VDTBH #### [facility] [address] [place] [address] Dr. Sarah Sánchez MUCOUS NONE SEEN Normal NONE SEEN [facility] Comment on above: Performed By: #### C VDTBH #### [facility] [address] [place] [address] Dr. Sarah Sánchez Nitrite Ql (U) Negative Normal NEGATIVE [facility] Comment on above: Performed By: #### C VDTBH #### [facility] [address] [place] [address] Dr. Sarah Sánchez pH (U) 5.5 [pH] Normal 5-9 [facility] Comment on above: Performed By: #### C VDTBH #### [facility] [address] [place] [address] Dr. Sarah Sánchez RBC 0-2 Normal 0-2 [facility] Comment on above: Performed By: #### C VDTBH #### [facility] [address] [place] [address] Dr. Sarah Sánchez SPEC GRAVITY 1.025 Normal 1.005-<=1.02 5 [facility] Comment on above: Performed By: #### C VDTBH #### [facility] [address] [place] [address] Dr. Sarah Sánchez UA PROTEIN >300 Abnormal NEGATIVE/ TRACE [facility] Comment on above: Performed By: #### C VDTBH #### [facility] [address] [place] [address] Dr. Sarah Sánchez Urobilinogen Qn (U) 0.2 {Stevie'U}/dL Normal 0.2 - 1. 0 [facility] Comment on above: Performed By: #### C VDTBH #### [facility] [address] [place] [address] Dr. Sarah Sánchez WBC NONE SEEN Normal NONE SEEN [facility] Comment on above: Performed By: #### C VDTBH #### [facility] [address] [place] [address] Dr. Sarah Sánchez URIC ACID SERUMon 09-15-2021 Urate [Mass/Vol] 6.9 mg/dL Normal 3.5-7.2 [facility] Comment on above: Performed By: #### U DELFINO, RENAL, MG #### [facility] [address] [place] [address] Dr. Sarah Sánchez URINE T PROTEIN CREAT RATIOo n 09-15-2021 Protein (U) [Mass/Vol] 440.3 mg/dL Critically high <=12.0 [facility] Comment on above: Performed By: #### U RTPCR #### [facility] [address] [place] [address] Dr. Sarah Sánchez UR PROT CREAT RAT 6.63 Normal [facility] Comment on above: Performed By: #### U RTPCR #### [facility] [address] [place] [address] Dr. Sarah Sánchez URINE CREAT 66.40 mg/dL Normal 20.00-300.00 [facility] Comment on above: Performed By: #### U RTPCR #### [facility] [address], [place] [address] Dr. Sarah Sánchez VITAMIN D 25 OHon 09-15-2021 VIT D 25-OH 18.8 ng/mL Normal [facility] Comment on above: Performed By: #### U DELFINO, RENAL, MG #### [facility] [address], [place] [address] Dr. Sarah Sánchez VIT D RANGES SEE BELOW Normal [facility] Comment on above: Result Comment: <20 ng/mL Vit D deficient 20 - <30 ng/mL Vit D insufficient 30 - 100 ng/mL Vit D sufficient >100 ng/mL Potential Toxicity Performed By: #### U DELFINO, RENAL, MG #### [facility] [address] [id number] Sarah Sánchez US KIDNEYSon 09-01-2021 US [...] by: MEMO STRICKLAND Date: 2021-09-01 10:18 Normal [facility] Urinalysis With MicroscopicO rdered By: Ralph Mccurdy on 04-23-2019 - [employer] Work Phone: Amorphous, UA NOT REPORTED None [employer] [facility] Work Phone: Bacteria, UA NOT REPORTED None [employer] [facility] Work Phone: Bilirubin Urine Negative NEGATIVE [facility] Work Phone: Casts UA NOT REPORTED /LPF [facility] Work Phone: Color, UA YELLOW YELLOW [facility] Work Phone: Crystals UA URIC ACID Abnormal None /HPF [facility] Work Phone: Crystals UA 2 TO 5 Abnormal None /HPF [facility] Work Phone: Epithelial Cells UA None [facility] Work Phone: Glucose, Ur Negative NEGATIVE [facility] [employer] Work Phone: Interpretation and review of laboratory results Abnormal [facility] [employer] Work Phone: Ketones Ql (U) Negative NEGATIVE [facility] Work Phone: Leukocyte esterase Test strip Ql (U) Negative NEGATIVE [facility] [employer] Work Phone: Mucus, UA NOT REPORTED None [facility] [employer] Work Phone: Nitrite, Urine Negative NEGATIVE [facility] Work Phone: Other Observations UA NOT REPORTED NOT REQ. M [facility] [employer] Work Phone: pH, UA 6.0 [facility] [employer] Work Phone: Protein, UA 4+ Abnormal NEGATIVE [facility] [employer] Work Phone: RBC, UA 0 TO 2 [facility] [employer] Work Phone: Renal Epithelial, Urine NOT REPORTED 0 /HPF [facility] [employer] Work Phone: Specific [place], UA 1.020 [facility] Work Phone: Trichomonas, UA NOT REPORTED None [facility] Work Phone: Turbidity UA CLEAR CLEAR [facility] [employer] Work Phone: Urinalysis Comments NOT REPORTED [facility] Work Phone: Urine Hgb 1+ Abnormal NEGATIVE [employer] Work Phone: Urobilinogen, Urine Normal Normal [employer] Work Phone: WBC, UA None [employer] Work Phone: Yeast, UA NOT REPORTED None [employer] Work Phone: Cardiovascular Lab Reporton 09-12-2018 Cardiovascular Lab Report [facility]: [id number] Physician: Vadim Malagon of [facility] Medicine Service Date: 09/12/2018 Division of Birthdate: 1950 Cardiology Room #: [facility] Cardiovascular Services [facility] [address] [facility] [place] [address] Cardiovascular Laboratory Report INDICATIONS: The patient is a 68-year-old man, known to have coronary artery disease, status post stenting of the ramus vessel in January 2018 in the setting of xdj-VR-zahylljwr myocardial infarction. At that time, he had [...] signed informed consent. He was brought to propagator laborer in a fasting state. The left neck area was prepped and draped in usual fashion. Note that we went for the left internal jugular vein access, as he had multiple procedures in the right carotid in the past and due to the patient's preference. The left internal jugular vein was accessed using micropuncture technique under ultrasound guidance and a 6-Sierra [place]an x 11 cm sheath was placed. A 6-[place]an Olivia catheter was used for right heart catheterization with measurement of pressures and calculation of cardiac output using the estimated Rose [place] method. Olivia catheter was removed. Steve test was favorable on the right. Access in the right radial artery was obtained using micropuncture technique and ultrasound guidance. A 6-Sierra [place]an x 11 cm Hydrophilic sheath was advanced. Verapamil was given through the sheath and heparin was administered intravenously. Bilateral selective coronary angiography was then performed using 6-[place]an JR5 and JL3.5 diagnostic catheters. Catheters were [...] narrowing right after the takeoff of a jshda-bq-oxhmtxhu size first diagonal branch, that diagonal branch [...] the ostial to proximal segment of a ptgmv-sz-rhekfpza size diagonal branch. 2. The angiographic appearance [...] A Vadim Veronica M.D. Date Dict: 09/12/2018/09:38 A/Vadim Veronica M.D. Date Trans: 09/12/2018 10:28 Larisa/harvey [id number] cc: Ruben Luo M.D. [address] [place] [phone] Normal [facility] BASIC METABOLIC PANELon 10-1 Calcium [Mass/Vol] 8.4 mg/dL Low 8.6-10.3 [facility] Comment on above: Order Comment: No: D o not add to previous draw Performed By: #### 0 0071, 41883, 47925 #### [facility] [address] [place] [address], [place] Chloride [Moles/Vol] 106 mmol/L Normal 98-107 [facility] Comment on above: Order Comment: No: D o not add to previous draw Performed By: #### 0 0071, 67839, 10877 #### [facility] [address] [place] [address], [place] CO2 [Moles/Vol] 26 mmol/L Normal 21-31 [facility] Comment on above: Order Comment: No: D o not add to previous draw Performed By: #### 0 0071, 51487, 43763 #### [facility] [address] [place] [address], [place] Creatinine [Mass/Vol] 1.25 mg/dL Normal 0.70-1.30 [facility] Comment on above: Order Comment: No: D o not add to previous draw Performed By: #### 0 0071, 63908, 76678 #### [facility] [address] [place] [address], [place] GFR/1.73 sq M predicted among blacks MDRD (S/P/Bld) [Vol rate/Area] mL/min/{1.73_m2} Normal >60 [facility] Comment on above: Order Comment: No: D o not add to previous draw Performed By: #### 0 0071, , 21554 #### [facility] [address] [place] [address], [facility] GFR/1.73 sq M predicted among non-blacks MDRD (S/P/Bld) [Vol rate/Area] 57 ml/min/1.73sq m Abnormal >60 [facility] Comment on above: Order Comment: No: D o not add to previous draw Performed By: #### 0 0071, , 79583 #### [facility] [address] [place] [address], [facility] Glucose [Mass/Vol] 183 mg/dL High 70-100 The [facility] Comment on above: Order Comment: No: D o not add to previous draw Performed By: #### 0 0071, , 91137 #### [facility] [address] [place] [address], [place] Potassium [Moles/Vol] 5.4 mmol/L High 3.5-5.1 [facility] Comment on above: Order Comment: No: D o not add to previous draw Performed By: #### 0 0071, , 96483 #### [facility] [address] [place] [address], [place] Sodium [Moles/Vol] 135 mmol/L Low 136-145 [facility] Comment on above: Order Comment: No: D o not add to previous draw Performed By: #### 0 0071, 09441, 60422 #### [facility] [address] [place] [address], [facility] Urea nitrogen [Mass/Vol] 26 mg/dL High 7-25 [facility] Comment on above: Order Comment: No: D o not add to previous draw Performed By: #### 0 0071, 57986, 56098 #### [facility] [address] [place] [address], [facility] CBC COMPLETE BLOOD COUNTon Erythrocyte distribution width (RBC) [Ratio] 13.2 % Normal 11.5-15.0 [facility] Comment on above: Order Comment: No: D o not add to previous draw Performed By: #### 5 0608 #### [facility] [address] [place] [address], [facility] Hematocrit (Bld) [Volume fraction] 31.0 % Low 39.0-50.0 [facility] Comment on above: Order Comment: No: D o not add to previous draw Performed By: #### 5 0608 #### [facility] [address] [place] [address], [facility] Hemoglobin (Bld) [Mass/Vol] 10.6 g/dL Low 13.0-17.0 [facility] Comment on above: Order Comment: No: D o not add to previous draw Performed By: #### 5 0608 #### [facility] [address] [place] [address], [place] MCH (RBC) [Entitic mass] 30.5 pg Normal 27.0-33.0 [facility] Comment on above: Order Comment: No: D o not add to previous draw Performed By: #### 5 0608 #### [facility] [address] [place] [address], [facility] MCHC (RBC) [Mass/Vol] 34.2 g/dL Normal 32.0-35.0 [facility] Comment on above: Order Comment: No: D o not add to previous draw Performed By: #### 5 0608 #### [facility] [address] [place] [address], [facility] MCV (RBC) [Entitic vol] 89.3 fL Normal 82.0-98.0 [facility] Comment on above: Order Comment: No: D o not add to previous draw Performed By: #### 5 0608 #### [facility] [address] Nucleated RBC/100 WBC (Bld) [Ratio] 0 % Normal 0-0 [facility] Comment on above: Order Comment: No: D o not add to previous draw Performed By: #### 5 0608 #### [facility] [address] [place] [address], [facility] PLAT CNT 174 10*3/uL Normal 150-400 [facility] Comment on above: Order Comment: No: D o not add to previous draw Performed By: #### 5 0608 #### [facility] [address] [facility] [place] [address], [facility] RBC (Bld) [#/Vol] 3.47 10*6/uL Low 4.20-5.70 [facility] Comment on above: Order Comment: No: D o not add to previous draw Performed By: #### 5 0608 #### [facility] [address] [place] [address], [facility] WBC (Bld) [#/Vol] 8.57 10*3/uL Normal 4.00-10.60 [facility] Comment on above: Order Comment: No: D o not add to previous draw Performed By: #### 5 0608 #### [facility] [address] Cardiovascular Lab Reporton 01-18-2018 Cardiovascular Lab Report [facility] Patient Name: Omer Santos [facility] MR #: [id number] Physician: Vadim Malagon of [facility] Medicine Service Date: 01/17/2018 Division of Birthdate: 1950 Cardiology Room #: [id number] Adult Cardiovascular Services [facility] [address] [place] [id number] Cardiovascular Laboratory Report INDICATION: Omer Santos is a 67-year-old man, who was admitted with grl-YO-dnozllr elevation myocardial infarction. He was referred for [...] signed informed consent. He was brought to propagator laborer in a fasting state. The left wrist area was prepped and draped in usual fashion. Steve's test was favorable. Access was obtained in the left radial artery. Using micropuncture technique, a 6-Sierra Leonean x 11 cm Hydrophilic sheath was advanced. Verapamil was given through the sheath and heparin was administered intravenously. Bilateral selective coronary angiography was then performed using 6-[place]an JL3.5 and JR4 diagnostic catheters. Catheters were removed. A 6-[place]an XB 3.0 guiding catheter was advanced and used to engage in the left main coronary ostium. Therapeutic ACT was confirmed during the procedure and additional heparin given as needed. A [place] wire was advanced into the distal ramus vessel. Balloon angioplasty in the proximal ramus was performed using Emerge 2.5 x 12 mm balloon inflated at 12 atmospheres. Angiography revealed suboptimal results. This was treated using a Synergy 2.75 x 16 mm drug-eluting stent deployed at 11 atmospheres and post dilated using NC Quantum [place] 2.75 x 12 mm noncompliant balloon inflated [...] for minimum of 1 year after acute taq-GH-zutfwui elevation myocardial infarction and drug-eluting stenting. 3. [...] Veronica M.D. Date Trans: 01/17/2018 10:32 P/harvey [id number] cc: Ruben Luo M.D. [address] [place] [phone] Otilia Sanchez M.D. E R Physican...do Not Send [address] [facility] [address] Normal [facility] MAGNESIUM BLOODon 01-18-2018 Magnesium [Mass/Vol] 1.9 mg/dL Normal 1.9-2.7 [facility] Comment on above: Performed By: #### 0 0071, 99456, 60794 #### [facility] [address] [place] [address], [facility] TROPONIN-Ion 01-18-2018 Troponin I.cardiac [Mass/Vol] 0.84 ng/mL Critically high 0.00-0.04 [facility] Comment on above: Result Comment: M-CR ITICAL RESULT(S) REVIEWED, CALLED TO AND READ BACK BY AMARA PATTERSON RN AT 0924. REFERENCE RANGES: 0.00 - 0.04 ng/ml NORMAL 0.05 - 0.50 ng/ml INDETERMINATE > 0.50 ng/ml CONSISTENT WITH AN M.I. Performed By: #### 0 0071, 68518, 50461 #### [facility] [address] [place] [address], [place] BASIC METABOLIC PANELon 01-06 Calcium [Mass/Vol] 8.8 mg/dL Normal 8.6-10.3 [facility] Comment on above: Order Comment: No: D o not add to previous draw Performed By: #### 3 0040, 49476 #### [facility] [address] [place] [address], [facility] Chloride [Moles/Vol] 103 mmol/L Normal 98-107 [facility] Comment on above: Order Comment: No: D o not add to previous draw Performed By: #### 3 5199, 21035 #### [facility] [address] [place] [address], [place] CO2 [Moles/Vol] 25 mmol/L Normal 21-31 [facility] Comment on above: Order Comment: No: D o not add to previous draw Performed By: #### 3 5199, 93505 #### [facility] [address] [place] [address], [place] Creatinine [Mass/Vol] 1.36 mg/dL High 0.70-1.30 [facility] Comment on above: Order Comment: No: D o not add to previous draw Performed By: #### 3 5199, 62644 #### [facility] [address] [place] [address], [place] GFR/1.73 sq M predicted among blacks MDRD (S/P/Bld) [Vol rate/Area] mL/min/{1.73_m2} Normal >60 [facility] Comment on above: Order Comment: No: D o not add to previous draw Performed By: #### 3 5199, 36023 #### [facility] [address] [place] [address], [place] GFR/1.73 sq M predicted among non-blacks MDRD (S/P/Bld) [Vol rate/Area] 52 ml/min/1.73sq m Abnormal >60 [facility] Comment on above: Order Comment: No: D o not add to previous draw Performed By: #### 3 5199, 64795 #### [facility] [address] [place] [address], [place] Glucose [Mass/Vol] 265 mg/dL High 70-100 [facility] Comment on above: Order Comment: No: D o not add to previous draw Performed By: #### 3 5199, 97905 #### [facility] [address] [place] [address], [facility] Potassium [Moles/Vol] 4.7 mmol/L Normal 3.5-5.1 [facility] Comment on above: Order Comment: No: D o not add to previous draw Performed By: #### 3 0, 28442 #### [facility] [address] [place] [address], [facility] Sodium [Moles/Vol] 136 mmol/L Normal 136-145 [facility] Comment on above: Order Comment: No: D o not add to previous draw Performed By: #### 3 5199, 26063 #### [facility] [address] [place] [address], [facility] Urea nitrogen [Mass/Vol] 25 mg/dL Normal 7-25 [facility] Comment on above: Order Comment: No: D o not add to previous draw Performed By: #### 3 5199, 56971 #### [facility] [address] [place] [address], [facility] CBC W/DIFFon 01-17-2018 ABS BASOPHILS 0.1 10*3/uL Normal 0.0-0.2 The [facility] Comment on above: Performed By: #### 5 0103 #### [facility] [address] [place] [id number], [facility] ABS IMM GRANS 0.1 10*3/uL Normal 0.0-0.2 The [facility] Comment on above: Performed By: #### 5 0103 #### [facility] [address] [facility] [place] [id number], [facility] ABS NEUTROPHILS 4.1 10*3/uL Normal 1.6-7.6 The [facility] Comment on above: Performed By: #### 5 0103 #### [facility] [address] [place] [id number], [place] Basophils/100 WBC (Bld) 0.7 % Normal 0.0-1.0 [facility] Comment on above: Performed By: #### 5 0103 #### [facility] [address] [place] [address], [facility] Eosinophils (Bld) [#/Vol] 0.5 10*3/uL Normal 0.0-0.5 [facility] Comment on above: Performed By: #### 5 0103 #### [facility] [address] [place] [address], [facility] Eosinophils/100 WBC (Bld) 6.6 % High 0.0-6.0 [facility] Comment on above: Performed By: #### 5 0103 #### [facility] [address] Erythrocyte distribution width (RBC) [Ratio] 13.1 % Normal 11.5-15.0 [facility] Comment on above: Performed By: #### 5 0103 #### [facility] [address] [place] [address], [facility] Hematocrit (Bld) [Volume fraction] 30.5 % Low 39.0-50.0 [facility] Comment on above: Performed By: #### 5 0103 #### [facility] [address] Hemoglobin (Bld) [Mass/Vol] 10.8 g/dL Low 13.0-17.0 [facility] Comment on above: Performed By: #### 5 [id number] #### [facility] [address] [place] [address], [facility] IMMATURE GRANS 1.8 % High 0.0-1.0 The [facility] Comment on above: Performed By: #### 5 3 #### [facility] [address] [place] [address], [facility] Lymphocytes (Bld) [#/Vol] 2.1 10*3/uL Normal 1.2-4.0 The [facility] Comment on above: Performed By: #### 5 0103 #### [facility] [address] [place] [address], [facility] Lymphocytes/100 WBC (Bld) 28.1 % Normal 20.0-45.0 [facility] Comment on above: Performed By: #### 5 0103 #### [facility] [address] [facility] [place] [address], [facility] MCH (RBC) [Entitic mass] 31.3 pg Normal 27.0-33.0 [facility] Comment on above: Performed By: #### 5 0103 #### [facility] [address] [place] [address], [facility] MCHC (RBC) [Mass/Vol] 35.4 g/dL High 32.0-35.0 [facility] Comment on above: Performed By: #### 5 0103 #### [facility] [address] [facility] [place] [address], [facility] MCV (RBC) [Entitic vol] 88.4 fL Normal 82.0-98.0 [facility] Comment on above: Performed By: #### 5 3 #### [facility] [address] [place] [address], [facility] Monocytes (Bld) [#/Vol] 0.5 10*3/uL Normal 0.1-1.0 [facility] Comment on above: Performed By: #### 5 3 #### [facility] [address] [facility] [place] [address], [facility] MONOS 6.3 % Normal 5.0-12.0 [facility] Comment on above: Performed By: #### 5 3 #### [facility] [address] [place] [address], [facility] Neutrophils/100 WBC (Bld) 56.5 % Normal 40.0-72.0 [facility] Comment on above: Performed By: #### 5 0103 #### [facility] [address] Nucleated RBC/100 WBC (Bld) [Ratio] 0 % Normal 0-0 [facility] Comment on above: Performed By: #### 5 0103 #### [facility] [address] PLAT CNT 175 10*3/uL Normal 150-400 The [facility] Comment on above: Performed By: #### 5 0103 #### [facility] [address] RBC (Bld) [#/Vol] 3.45 10*6/uL Low 4.20-5.70 [facility] Comment on above: Performed By: #### 5 0103 #### [facility] [address] WBC (Bld) [#/Vol] 7.30 10*3/uL Normal 4.00-10.60 [facility] Comment on above: Performed By: #### 5 0103 #### [facility] [address] History and Physicalon 01-17 History and Physical MR#: [id number] [facility] Pt. Name: Omer Santos Admitted: 01/17/2018 Date of : 1950 Attending Physician: Andre Vizcaino MD Room #: [id number] Discharge Date: HISTORY AND PHYSICAL CHIEF COMPLAINT: Chest pain. HISTORY OF PRESENT ILLNESS: The patient is a 67-year-old male, who presented initially to [facility] complaining of chest pain. He states that [...] time. His initial workup was negative at [place], did a repeat troponin, which was elevated. He was started on a heparin drip and transferred here to [facility] for high-level care to be seen by Cardiology for possible NSTEMI. Presently he states he is chest pain free. He received some morphine in [place], to which he attributes his current pain-free [...] alert and oriented x3. LABORATORY STUDIES: From [facility] dated January 16, 2018. BNP 311. CBC: [...] A/Andre Vizcaino MD Date Trans: 01/17/2018 07:04 A/mmo [id number] Normal [facility] TROPONIN-Ion 01-17-2018 Troponin I.cardiac [Mass/Vol] 0.22 ng/mL High 0.00-0.04 [facility] Comment on above: Order Comment: No: D o not add to previous draw Result Comment: REFE RENCE RANGES: 0.00 - 0.04 ng/ml NORMAL 0.05 - 0.50 ng/ml INDETERMINATE > 0.50 ng/ml CONSISTENT WITH AN M.I. Performed By: #### 3 [id number], [id number] #### [facility] [address] [place] [address], [facility] UFH HEPARIN ASSAYon 01-18-20 18 UNFRACTIONATED HEPARIN <0.10 Critically low 0.30-0.70 [facility] Comment on above: Result Comment: [place] roxaban and Apixaban will interfere with the anti Xa assay used to monitor UFH and LMWH. RESULTS CHECKED AND CALLED. ACCURATELY READ BACK BY AMARA PATTERSON RN @ 3691 Performed By: #### 3 [id number] #### [facility] [address] [place] [address], [facility] Vital Signs Date Time Vital Sign Value Performing Clinician Facility 05-07-2023 09:40-0500 Body height 167.64 cm Oma Donato Other [facility] Other 05-07-2023 09:40-0500 Body mass index (BMI) [Ratio] 26.85 kg/m2 Oma Donato Other [facility] Other 05-07-2023 09:40-0500 Body temperature 96.3 [degF] Oma Donato Other [facility] Other 05-07-2023 09:40-0500 Body weight 75.48 kg Oma Donato Other [facility] Other 05-07-2023 09:40-0500 Diastolic blood pressure 72 mm[Hg] Oma Donato Other [facility] Other 05-07-2023 09:40-0500 Respiratory rate 18 /min Oma Donato Other [facility] Other 05-07-2023 09:40-0500 SaO2% (BldA) [Mass fraction] 99 % Oma Donato Other [facility] Other 05-07-2023 09:40-0500 Systolic blood pressure 129 mm[Hg] Oma Donato Other [facility] Other 05-06-2023 11:59-0500 Body height 170.2 cm Ruben Luo MD Work Phone: [facility] [employer] 05-06-2023 11:59-0500 Body mass index (BMI) [Ratio] 25.53 kg/m2 Ruben Luo MD Work Phone: [facility] [employer] 05-06-2023 11:59-0500 Body weight 73.94 kg Ruben Luo MD Work Phone: [facility] [employer] 04-30-2023 11:34-0500 Body height 170.2 cm Ruben Luo MD Work Phone: [facility] [employer] 04-30-2023 11:34-0500 Body mass index (BMI) [Ratio] 25.53 kg/m2 Ruben Luo MD Work Phone: [facility] [employer] 04-30-2023 11:34-0500 Body weight 73.94 kg Ruben Luo MD Work Phone: [facility] [employer] 04-30-2023 11:34-0500 Diastolic blood pressure 74 mm[Hg] Ruben Luo MD Work Phone: [facility] [employer] 04-30-2023 11:34-0500 Heart rate 70 /min Ruben Luo MD Work Phone: [facility] [employer] 04-30-2023 11:34-0500 SaO2% (BldA) [Mass fraction] 98 % Ruben Luo MD Work Phone: [facility] [employer] 04-30-2023 11:34-0500 Systolic blood pressure 122 mm[Hg] Ruben Luo MD Work Phone: [facility] [employer] 03-26-2023 09:00-0500 Body height 167.64 cm Oma Donato Other [facility] Other 03-26-2023 09:00-0500 Body mass index (BMI) [Ratio] 27.5 kg/m2 Oma Donato Other [facility] Other 03-26-2023 09:00-0500 Body temperature 96.6 [degF] Oma Donato Other [facility] Other 03-26-2023 09:00-0500 Body weight 77.29 kg Oma Donato Other [facility] Other 03-26-2023 09:00-0500 Respiratory rate 16 /min Oma Donato Other [facility] Other 03-26-2023 09:00-0500 SaO2% (BldA) [Mass fraction] 98 % Oma Donato Other [facility] Other 03-20-2023 10:30-0500 Body height 167.64 cm Ney Roman Other [facility] Other 03-20-2023 10:30-0500 Body mass index (BMI) [Ratio] 25.82 kg/m2 Ney Roman Other [facility] Other 03-20-2023 10:30-0500 Body temperature 97.8 [degF] Ney Roman Other [facility] Other 03-20-2023 10:30-0500 Body weight 72.58 kg Ney Roman Other [facility] Other 03-20-2023 10:30-0500 Diastolic blood pressure 64 mm[Hg] Ney Roman Other [facility] Other 03-20-2023 10:30-0500 SaO2% (BldA) [Mass fraction] 98 % Ney Roman Other [facility] Other 03-20-2023 10:30-0500 Systolic blood pressure 114 mm[Hg] Ney Roman Other [facility] Other 02-25-2023 13:40-0500 Body height 167.64 cm Oma Donato Other [facility] Other 02-25-2023 13:40-0500 Body mass index (BMI) [Ratio] 26.44 kg/m2 Oma Donato Other [facility] Other 02-25-2023 13:40-0500 Body temperature 97.2 [degF] Oma Donato Other [facility] Other 02-25-2023 13:40-0500 Body weight 74.3 kg Oma Donato Other [facility] Other 02-25-2023 13:40-0500 Diastolic blood pressure 64 mm[Hg] Oma Donato Other [facility] Other 02-25-2023 13:40-0500 Respiratory rate 18 /min Oma Donato Other [facility] Other 02-25-2023 13:40-0500 SaO2% (BldA) [Mass fraction] 99 % Oma Donato Other [facility] Other 02-25-2023 13:40-0500 Systolic blood pressure 124 mm[Hg] Oma Donato Other [facility] Other 01-29-2023 14:00-0400 Body height 167.64 cm Oma Donato Other [facility] Other 01-29-2023 14:00-0400 Body mass index (BMI) [Ratio] 27.4 kg/m2 Oma Donato Other [facility] Other 01-29-2023 14:00-0400 Body temperature 96.4 [degF] Oma Donato Other [facility] Other 01-29-2023 14:00-0400 Body weight 77.02 kg Oma Donato Other [facility] Other 01-29-2023 14:00-0400 Diastolic blood pressure 61 mm[Hg] Oma Donato Other [facility] Other 01-29-2023 14:00-0400 Respiratory rate 18 /min Oma Donato Other [facility] Other 01-29-2023 14:00-0400 SaO2% (BldA) [Mass fraction] 99 % Oma Donato Other [facility] Other 01-29-2023 14:00-0400 Systolic blood pressure 166 mm[Hg] Oma Donato Other [facility] Other 01-17-2023 12:20-0400 Body height 167.64 cm Oma Donato Other [facility] Other 01-17-2023 12:20-0400 Body mass index (BMI) [Ratio] 28.34 kg/m2 Oma Donato Other [facility] Other 01-17-2023 12:20-0400 Body temperature 97.3 [degF] Oma Donato Other [facility] Other 01-17-2023 12:20-0400 Body weight 79.65 kg Oma Donato Other [facility] Other 01-17-2023 12:20-0400 Diastolic blood pressure 66 mm[Hg] Oma Donato Other [facility] Other 01-17-2023 12:20-0400 Respiratory rate 18 /min Oma Donato Other [facility] Other 01-17-2023 12:20-0400 SaO2% (BldA) [Mass fraction] 98 % Oma Donato Other [facility] Other 01-17-2023 12:20-0400 Systolic blood pressure 149 mm[Hg] Oma Donato Other [facility] Other 12-06-2022 09:40-0400 Body height 167.64 cm Oma Donato Other [facility] Other 12-06-2022 09:40-0400 Body mass index (BMI) [Ratio] 27.79 kg/m2 Oma Donato Other [facility] Other 12-06-2022 09:40-0400 Body temperature 96.2 [degF] Oma Donato Other [facility] Other 12-06-2022 09:40-0400 Body weight 78.11 kg Oma Donato Other [facility] Other 12-06-2022 09:40-0400 Diastolic blood pressure 60 mm[Hg] Oma Donato Other [facility] Other 12-06-2022 09:40-0400 Respiratory rate 16 /min Oma Donato Other [facility] Other 12-06-2022 09:40-0400 SaO2% (BldA) [Mass fraction] 99 % Oma Donato Other [facility] Other 12-06-2022 09:40-0400 Systolic blood pressure 92 mm[Hg] Oma Donato Other [facility] Other 11-15-2022 13:20-0400 Body height 167.64 cm Oma Donato Other [facility] Other 11-15-2022 13:20-0400 Body temperature 96.5 [degF] Oma Donato Other [facility] Other 11-15-2022 13:20-0400 Diastolic blood pressure 64 mm[Hg] Oma Donato Other [facility] Other 11-15-2022 13:20-0400 Respiratory rate 18 /min Oma Donato Other [facility] Other 11-15-2022 13:20-0400 SaO2% (BldA) [Mass fraction] 98 % Oma Donato Other [facility] Other 11-15-2022 13:20-0400 Systolic blood pressure 130 mm[Hg] Oma Donato Other [facility] Other 10-25-2022 10:00-0400 Body height 167.64 cm Oma Donato Other [facility] Other 10-25-2022 10:00-0400 Body mass index (BMI) [Ratio] 27.79 kg/m2 Oma Donato Other [facility] Other 10-25-2022 10:00-0400 Body temperature 96.1 [degF] Oma Donato Other [facility] Other 10-25-2022 10:00-0400 Body weight 78.11 kg Oma Donato Other [facility] Other 10-25-2022 10:00-0400 Diastolic blood pressure 54 mm[Hg] Oma Donato Other [facility] Other 10-25-2022 10:00-0400 Respiratory rate 18 /min Oma Donato Other [facility] Other 10-25-2022 10:00-0400 SaO2% (BldA) [Mass fraction] 99 % Oma Donato Other [facility] Other 10-25-2022 10:00-0400 Systolic blood pressure 143 mm[Hg] Oma Donato Other [facility] Other 09-10-2022 16:20-0400 Body height 167.64 cm Oma Donato Other [facility] Other 09-10-2022 16:20-0400 Body mass index (BMI) [Ratio] 28.34 kg/m2 Oma Donato Other [facility] Other 09-10-2022 16:20-0400 Body temperature 97.2 [degF] Oma Donato Other [facility] Other 09-10-2022 16:20-0400 Body weight 79.65 kg Oma Donato Other [facility] Other 09-10-2022 16:20-0400 Diastolic blood pressure 64 mm[Hg] Oma Donato Other [facility] Other 09-10-2022 16:20-0400 Respiratory rate 18 /min Oma Donato Other [facility] Other 09-10-2022 16:20-0400 SaO2% (BldA) [Mass fraction] 98 % Oma Donato Other [facility] Other 09-10-2022 16:20-0400 Systolic blood pressure 128 mm[Hg] Oma Donato Other [facility] Other 08-22-2022 10:30-0400 Body height 167.64 cm Dasia Jimenezmary Other [facility] Other 08-22-2022 10:30-0400 Body mass index (BMI) [Ratio] 27.92 kg/m2 Dasia Jimenezmary Other [facility] Other 08-22-2022 10:30-0400 Body temperature 97.8 [degF] Dasia Jimenezmary Other [facility] Other 08-22-2022 10:30-0400 Body weight 78.47 kg Dasia Jimenezmary Other [facility] Other 08-22-2022 10:30-0400 Diastolic blood pressure 58 mm[Hg] Dasia Jimenezmary Other [facility] Other 08-22-2022 10:30-0400 SaO2% (BldA) [Mass fraction] 98 % Dasia Jimenezmary Other [facility] Other 08-22-2022 10:30-0400 Systolic blood pressure 96 mm[Hg] Dasia Flowers Other [facility] Other 08-14-2022 10:20-0400 Body height 167.64 cm Azdandre Benders Other [facility] Other 08-14-2022 10:20-0400 Body mass index (BMI) [Ratio] 27.92 kg/m2 Azdandre Bakhous Other [facility] Other 08-14-2022 10:20-0400 Body temperature 96.8 [degF] Azdandre Chenhous Other [facility] Other 08-14-2022 10:20-0400 Body weight 78.47 kg Azdandre Bakhous Other [facility] Other 08-14-2022 10:20-0400 Diastolic blood pressure 57 mm[Hg] Aziz Bakhous Other [facility] Other 08-14-2022 10:20-0400 Respiratory rate 18 /min Azdandre Bakhous Other [facility] Other 08-14-2022 10:20-0400 SaO2% (BldA) [Mass fraction] 99 % Aziz Bakhous Other [facility] Other 08-14-2022 10:20-0400 Systolic blood pressure 98 mm[Hg] Aziz Bakhous Other [facility] Other 07-26-2022 15:24-0400 Body temperature 98.01 [degF] Gabe Harris MD Work Phone: [facility] [employer] 07-26-2022 15:24-0400 Diastolic blood pressure 70 mm[Hg] Gabe Harris MD Work Phone: [facility] [employer] 07-26-2022 15:24-0400 Heart rate 74 /min Gabe Harris MD Work Phone: [facility] [employer] 07-26-2022 15:24-0400 Respiratory rate 18 /min Gabe Harris MD Work Phone: [facility] [employer] 07-26-2022 15:24-0400 SaO2% (BldA) [Mass fraction] 98 % Gabe Harris MD Work Phone: [facility] [employer] 07-26-2022 15:24-0400 Systolic blood pressure 114 mm[Hg] Gabe Harris MD Work Phone: [facility] [employer] 07-23-2022 03:33-0400 SaO2% (BldA) [Mass fraction] 97 % Gabe Harris MD Work Phone: [facility] [employer] 07-19-2022 18:09-0400 Body height 170.2 cm Gabe Harris MD Work Phone: [facility] [employer] 07-19-2022 18:09-0400 Body mass index (BMI) [Ratio] 26.47 kg/m2 Gabe Harris MD Work Phone: [facility] [employer] 07-19-2022 18:09-0400 Body weight 76.66 kg Gabe Harris MD Work Phone: [facility] [employer] 07-17-2022 09:40-0400 Body height 167.64 cm Oma Sewell Other [facility] Other 07-17-2022 09:40-0400 Body mass index (BMI) [Ratio] 27.98 kg/m2 Oma Donato Other [facility] Other 07-17-2022 09:40-0400 Body temperature 98.3 [degF] Oma Donato Other [facility] Other 07-17-2022 09:40-0400 Body weight 78.65 kg Oma Donato Other [facility] Other 07-17-2022 09:40-0400 Diastolic blood pressure 60 mm[Hg] Oma Donato Other [facility] Other 07-17-2022 09:40-0400 Respiratory rate 18 /min Oma Donato Other [facility] Other 07-17-2022 09:40-0400 SaO2% (BldA) [Mass fraction] 97 % Oma Donato Other [facility] Other 07-17-2022 09:40-0400 Systolic blood pressure 124 mm[Hg] Oma Donato Other [facility] Other 06-21-2022 10:40-0400 Body height 167.64 cm Oma Donato Other [facility] Other 06-21-2022 10:40-0400 Body mass index (BMI) [Ratio] 28.5 kg/m2 Oma Donato Other [facility] Other 06-21-2022 10:40-0400 Body temperature 96.7 [degF] Oma Donato Other [facility] Other 06-21-2022 10:40-0400 Body weight 80.11 kg Oam Donato Other [facility] Other 06-21-2022 10:40-0400 Diastolic blood pressure 50 mm[Hg] Oma Donato Other [facility] Other 06-21-2022 10:40-0400 Respiratory rate 18 /min Oma Donato Other [facility] Other 06-21-2022 10:40-0400 SaO2% (BldA) [Mass fraction] 96 % Oma Donato Other [facility] Other 06-21-2022 10:40-0400 Systolic blood pressure 102 mm[Hg] Oma Donato Other [facility] Other 05-10-2022 10:00-0500 Body height 167.64 cm Oma Donato Other [facility] Other 05-10-2022 10:00-0500 Body mass index (BMI) [Ratio] 29.66 kg/m2 Oma Donato Other [facility] Other 05-10-2022 10:00-0500 Body temperature 96.6 [degF] Oma Donato Other [facility] Other 05-10-2022 10:00-0500 Body weight 83.37 kg Oma Donato Other [facility] Other 05-10-2022 10:00-0500 Diastolic blood pressure 53 mm[Hg] Oma Donato Other [facility] Other 05-10-2022 10:00-0500 Respiratory rate 18 /min Oma Donato Other [facility] Other 05-10-2022 10:00-0500 SaO2% (BldA) [Mass fraction] 98 % Oma Donato Other [facility] Other 05-10-2022 10:00-0500 Systolic blood pressure 134 mm[Hg] Oma Donato Other [facility] Other 05-07-2022 09:40-0500 Body height 167.64 cm Oma Donato Other [facility] Other 05-07-2022 09:40-0500 Body mass index (BMI) [Ratio] 29.21 kg/m2 Oma Donato Other [facility] Other 05-07-2022 09:40-0500 Body temperature 98.7 [degF] Oma Donato Other [facility] Other 05-07-2022 09:40-0500 Body weight 82.1 kg Oma Donato Other [facility] Other 05-07-2022 09:40-0500 Diastolic blood pressure 70 mm[Hg] Oma Donato Other [facility] Other 05-07-2022 09:40-0500 Respiratory rate 18 /min Oma Donato Other [facility] Other 05-07-2022 09:40-0500 SaO2% (BldA) [Mass fraction] 98 % Oma Donato Other [facility] Other 05-07-2022 09:40-0500 Systolic blood pressure 130 mm[Hg] Oma Donato Other [facility] Other 04-16-2022 10:18-0500 Diastolic blood pressure 58 mm[Hg] MD Ruben Luo Work Phone: [facility] 04-16-2022 10:18-0500 Heart rate 67 /min MD Ruben Luo Work Phone: [facility] 04-16-2022 10:18-0500 Respiratory rate 16 /min MD Ruben Luo Work Phone: [facility] [...] Body height 167.64 cm Oma Donato Other [facility] Other 12-14-2021 10:20-0400 Body mass index (BMI) [Ratio] 28.66 kg/m2 Oma Donato Other [facility] Other 12-14-2021 10:20-0400 Body temperature 96.7 [degF] Oma Donato Other [facility] Other 12-14-2021 10:20-0400 Body weight 80.56 kg Oma Donato Other [facility] Other 12-14-2021 10:20-0400 Diastolic blood pressure 61 mm[Hg] Oma Donato Other [facility] Other 12-14-2021 10:20-0400 Respiratory rate 18 /min Oma Donato Other [facility] Other 12-14-2021 10:20-0400 SaO2% (BldA) [Mass fraction] 99 % Oma Donato Other [facility] Other 12-14-2021 10:20-0400 Systolic blood pressure 138 mm[Hg] Oma Donato Other [facility] Other 09-21-2021 09:40-0400 Body height 167.64 cm Oma Donato Other [facility] Other 09-21-2021 09:40-0400 Body mass index (BMI) [Ratio] 29.57 kg/m2 Oma Donato Other [facility] Other 09-21-2021 09:40-0400 Body temperature 96.8 [degF] Oma Donato Other [facility] Other 09-21-2021 09:40-0400 Body weight 83.1 kg Oma Donato Other [facility] Other 09-21-2021 09:40-0400 Diastolic blood pressure 63 mm[Hg] Oma Donato Other [facility] Other 09-21-2021 09:40-0400 Respiratory rate 18 /min Oma Donato Other [facility] Other 09-21-2021 09:40-0400 SaO2% (BldA) [Mass fraction] 98 % Oma Donato Other [facility] Other 09-21-2021 09:40-0400 Systolic blood pressure 116 mm[Hg] Oma Donato Other [facility] Other 08-14-2021 15:20-0400 Body height 167.64 cm Oma Donato Other [facility] Other 08-14-2021 15:20-0400 Body mass index (BMI) [Ratio] 29.7 kg/m2 Oma Donato Other [facility] Other 08-14-2021 15:20-0400 Body temperature 98.4 [degF] Oma Donato Other [facility] Other 08-14-2021 15:20-0400 Body weight 83.46 kg Oma Donato Other [facility] Other 08-14-2021 15:20-0400 Diastolic blood pressure 60 mm[Hg] Oma Donato Other [facility] Other 08-14-2021 15:20-0400 Respiratory rate 18 /min Oma Donato Other [facility] Other 08-14-2021 15:20-0400 SaO2% (BldA) [Mass fraction] 99 % Oma Donato Other [facility] Other 08-14-2021 15:20-0400 Systolic blood pressure 152 mm[Hg] Oma Donato Other [facility] Other 08-10-2021 11:00-0400 Body height 167.64 cm Ney Roman Other [facility] Other 08-10-2021 11:00-0400 Body mass index (BMI) [Ratio] 29.21 kg/m2 Ney Roman Other [facility] Other 08-10-2021 11:00-0400 Body temperature 96.9 [degF] Ney Roman Other [facility] Other 08-10-2021 11:00-0400 Body weight 82.1 kg Ney Roman Other [facility] Other 08-10-2021 11:00-0400 Diastolic blood pressure 58 mm[Hg] Ney Roman Other [facility] Other 08-10-2021 11:00-0400 SaO2% (BldA) [Mass fraction] 95 % Ney Roman Other [facility] Other 05-05-2022 11:00-0400 Systolic blood pressure 130 mm[Hg] Ney Roman Other [facility] Other Encounters Encounter Date Encounter Type Care Provider Facility Start: 05-07-2023 End: 05-07-2023 ambulatory Oma Donato Other [facility] Other Start: 05-07-2023 Office outpatient vi sit 15 minutes Oma Donato [facility] Start: 05-06-2023 End: 05-07-2023 ambulatory RUBEN LUO Not Available Start: 05-06-2023 End: 05-06-2023 Office outpatient visit 15 minutes Ruben Luo MD Work Phone: [facility] Comment on above: Injury of right ankl e, initial encounter (Primary Dx); Fall (on) (from) other stairs and steps, initial encounter; Right ankle swelling; Overweight with body mass index (BMI) 25.0-29.9 Start: 04-30-2023 End: 04-30-2023 ambulatory RUBEN LUO Not Available Start: 04-30-2023 End: 04-30-2023 Office outpatient visit 25 minutes Ruben Luo MD Work Phone: [facility] Comment on above: Stage 4 chronic kidn ey disease (CMS/HCC) (Primary Dx); Primary hypertension (CMS/HCC); Hypertensive kidney disease with stage 4 chronic kidney disease (CMS/HCC); Nephrotic syndrome; Type 2 diabetes mellitus with stage 4 chronic kidney disease, without long-term current use of insulin (CMS/HCC); Hyperlipidemia associated with type 2 diabetes mellitus (CMS/HCC); Diabetic peripheral neuropathy (CMS/HCC); Polypharmacy; Overweight with body mass index (BMI) 25.0-29.9; Former smoker, stopped smoking in distant past; Benign essential HTN (CMS/HCC); Mild intermittent asthma without complication (CMS/HCC); Coronary arteriosclerosis (CMS/HCC) Start: 04-15-2023 End: 04-15-2023 ambulatory Oma Donato Other [facility] Other Start: 04-15-2023 Telephone encounter Oma Donato [facility] Start: 03-26-2023 End: 03-26-2023 ambulatory Oma Donato Other [facility] Other Start: 03-26-2023 Office outpatient vi sit 15 minutes Oma Donato [facility] Start: 03-20-2023 Office outpatient vi sit 15 minutes Ney Roman [facility] Start: 03-20-2023 End: 03-20-2023 ambulatory MD Ruben Luo Work Phone: [facility] Other Start: 03-20-2023 End: 03-20-2023 Patient encounter procedure MD Ruben Luo Work Phone: [facility] Start: 02-25-2023 (INJECTION) INJECTION Oma Donato [facility] Start: 02-25-2023 End: 02-25-2023 ambulatory Oma Donato Other [facility] Other Start: 02-20-2023 End: 02-20-2023 ambulatory [facility] Start: 02-11-2023 End: 02-11-2023 ambulatory Oma Donato Other [facility] Other Start: 02-11-2023 Telephone encounter Oma Donato [facility] Start: 01-31-2023 End: 02-01-2023 ambulatory Ruben Luo MD Facility:[facility] Start: 01-30-2023 End: 01-31-2023 ambulatory Ruben Luo MD Facility:[facility] Start: 01-29-2023 End: 01-29-2023 ambulatory Oma Donato Other [facility] Other Start: 01-29-2023 Office outpatient vi sit 15 minutes Oma Donato [facility] Start: 01-17-2023 (INJECTION) INJECTION [facility] Don[facility] Start: 01-17-2023 End: 01-17-2023 ambulatory Oma Donato Other [facility] Other Start: 01-11-2023 End: 01-12-2023 ambulatory RUBEN CAMPOVERDEDOUGIE [facility] Start: 01-11-2023 End: 01-12-2023 Encounter for preprocedural laboratory examination DENILSON [facility] Start: 01-10-2023 End: 01-10-2023 Encounter for preprocedural cardiovascular examination [facility] Start: 01-10-2023 Encounter for other preprocedural examination [facility] Start: 01-10-2023 End: 01-13-2023 ambulatory [facility] Start: 01-10-2023 End: 01-13-2023 Encounter for preprocedural respiratory examination [facility] Start: 01-08-2023 End: 01-09-2023 ambulatory Ruben Lou MD Facility:[facility] Start: 12-25-2022 End: 12-28-2022 ambulatory [facility] Start: 12-06-2022 End: 12-06-2022 ambulatory Oma Donato Other [employer] Other Start: 12-06-2022 Office outpatient vi sit 15 minutes Oma Donato [facility] Start: 11-15-2022 End: 11-15-2022 ambulatory Oma Donato Other [employer] Other Start: 11-15-2022 Office outpatient vi sit 15 minutes Oma Donato [facility] Start: 10-25-2022 End: 10-25-2022 ambulatory Oma Donato Other [employer] Other Start: 10-25-2022 Office outpatient vi sit 15 minutes Oma Donato [facility] Start: 09-10-2022 End: 09-10-2022 ambulatory Oma Donato Other [employer] Other Start: 09-10-2022 Office outpatient vi sit 15 minutes Oma Donato [facility] Start: 08-22-2022 End: 08-22-2022 ambulatory Dasia Flowers Other [employer] Other Start: 08-22-2022 Patient encounter procedure Dasia Flowers [facility] Start: 08-20-2022 End: 08-20-2022 ambulatory Ruben Luo Facility:[facility] Start: 08-14-2022 End: 08-14-2022 ambulatory Aziz Bakhous Other [employer] Other Start: 08-14-2022 Office outpatient vi sit 15 minutes Aziz Bakhous [facility] Start: 08-10-2022 End: 08-11-2022 ambulatory OMA DONATO Facility: Start: 08-08-2022 End: 08-09-[address] RUBEN LUO . Facility: Start: 07-19-2022 End: 07-26-2022 Evaluation and management of inpatient OLUREMI A DYAN [facility] Start: 07-19-2022 End: 07-26-2022 Evaluation and management of inpatient Gabe Harris MD Work Phone: [facility] 5K Comment on above: Lumbar stenosis with neurogenic claudication (Primary Dx) Start: 07-18-2022 End: 07-18-2022 ambulatory [facility] Start: 07-17-2022 End: 07-17-2022 ambulatory Oma Donato Other [employer] Other Start: 07-17-2022 Office outpatient vi sit 15 minutes Oma Donato [facility] Start: 07-12-2022 End: 07-13-2022 ambulatory OMA DONATO Facility:[facility] Start: 07-12-2022 End: 07-13-[address] RUBEN LUO . Facility:[facility] Start: 2022 Encounter for preprocedural laboratory examination DR DOCTOR BARROSO [facility] Start: 2022 Encounter for preprocedural respiratory examination DR DOCTOR BARROSO [facility] Start: 2022 End: 07-06-2022 [facility] Start: 2022 Patient encounter procedure DENILSON LUO [facility] Start: 2022 End: 2022 Patient [address] procedure [address] 2 [facility] Start: 2022 End: 2022 Subsequent hospital visit by physician Str Xr Rm 2 [facility] Comment on above: Examination for norm al comparison for clinical research Start: 07-04-2022 End: 07-04-2022 ambulatory Oma Donato Other [employer] Other Start: 07-04-2022 Telephone encounter Oma Donato [facility] Start: 07-02-2022 End: 07-03-[address] DOCTOR BARROSO Facility:[facility] Start: 07-02-2022 End: 07-03-2022 Encounter for preprocedural respiratory examination DR DOCTOR BARROSO Facility:[facility] Start: 06-21-2022 End: 06-21-2022 ambulatory Oma Donato Other [employer] Other Start: 06-21-2022 Office outpatient vi sit 15 minutes Oma Donato [facility] Start: 06-21-2022 Telephone encounter Oma Donato [facility] Start: 06-19-2022 End: 06-20-2022 ambulatory OMA DONATO Facility:[facility] Start: 05-30-2022 End: 06-02-2022 ambulatory [facility]LL[facility] Start: 05-30-2022 End: 06-01-2022 Subsequent hospital visit by physician Dhruv Macdonald [facility] Comment on above: Osteopenia of lumbar spine Spinal stenosis, lum bar region, without neurogenic claudication; Right foot drop Start: 05-10-2022 (INJECTION) INJECTION Oma Donato [facility] Start: 05-10-2022 End: 05-10-2022 ambulatory Oma Donato Other [employer] Other Start: 05-08-2022 End: 05-11-2022 ambulatory OSIEL Jacques CHELE [facility] Start: 05-08-2022 End: 05-10-2022 Subsequent hospital visit by physician Dhruv Mri Scanner [facility] MRI Comment on above: 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 [employer] Other Start: 04-16-2022 End: 04-16-2022 Admission to same day surgery center MD Ruben Luo Work Phone: [facility] Work Phone: Start: 04-16-2022 End: 04-16-2022 ambulatory MD Ruben Luo Work Phone: [facility] Work Phone: Start: 04-13-2022 End: 04-14-[address] RUBEN LUO . Facility:[facility] Start: 04-12-2022 End: 04-12-2022 ambulatory MD Ruben Luo Work Phone: [facility] Work Phone: Start: 04-12-2022 End: 04-12-2022 Patient encounter procedure MD Ruben Luo Work Phone: [facility] Work Phone: Start: 01-22-2022 Telephone encounter [place] [facility]IVEIRA [facility] Start: 01-22-2022 End: 01-23-2022 ambulatory OMA DONATO [facility] [employer] Other Start: 12-27-2021 End: 12-27-[address] RUBEN LUO . Facility:[facility] Start: 12-14-2021 End: 12-14-2021 ambulatory Oma Donato Other [employer] Other Start: 12-14-2021 Office outpatient vi sit 25 minutes Oma Donato [facility] Start: 12-09-2021 End: 12-10-2021 ambulatory OMA DONATO Facility:[facility] Start: 10-13-2021 End: 10-14-[address] RUBEN LUO . Facility:[facility] Start: 10-07-2021 End: 10-08-[address] RUBEN LUO . Facility:[facility] Start: 09-21-2021 End: 09-21-2021 ambulatory Oma Donato Other [employer] Other Start: 09-21-2021 Office outpatient vi sit 25 minutes Oma Donato [facility] Start: 09-15-2021 End: 09-16-[address] RUBEN LUO . Facility:[facility] Start: 09-01-2021 End: 09-02-[address] RUBEN ULO . Facility:[facility] Start: 08-14-2021 End: 08-14-2021 ambulatory Oma Donato Other [employer] Other Start: 08-14-2021 Office outpatient ne w 45 minutes Oma Sewell [facility] Start: 08-10-2021 End: 08-10-2021 ambulatory Ney Roman Other [employer] Other Start: 08-10-2021 Office outpatient vi sit 15 minutes Ney Roman [facility] Start: 04-22-2019 End: 04-22-2019 Subsequent hospital visit by physician Ruben Luo MD Other Phone: [facility] Laboratory Comment on above: Enlarged prostate; BPH with obstruction/lower urinary tract symptoms; Abnormal digital rectal exam; Erectile dysfunction, unspecified erectile dysfunction type Start: 09-12-2018 End: 09-13-2018 Patient encounter procedure PROVIDER UNKNOWN Facility:[facility] Start: 01-17-2018 End: 01-18-2018 Patient encounter procedure GABY ORTIZ Facility:[facility] Procedures Date Procedure Procedure Detail Performing Clinician Start: 03-20-2023 Doppler ultrasonogra phy of bilateral carotid arteries MD Ruben Luo Work Phone: Start: 07-26-2022 Dup-scan xtr veins complete bilateral study Kylie Acuna MD Work Phone: [...] home use Sharon RUCKER-C Work Phone: Start: 07-25-2022 Gluc bld gluc mntr d ev cleared fda spec home use Sharon RUCKER-C Work Phone: Start: 07-25-2022 Radex spine lumbosac ral 2/3 views Sharon KNOWLESC Work Phone: Start: 07-25-2022 Gluc bld gluc mntr d ev cleared fda spec home use Sharon KNOWLESC Work Phone: Start: 07-25-2022 Gluc bld gluc mntr d ev cleared fda spec home use Sharon KNOWLESC Work Phone: Start: 07-25-2022 Anion gap [Moles/Vol] [...] home use Sharon RUCKER-C Work Phone: Start: 07-24-2022 Potassium serum plasma/whole blood Kylie Acuna MD Work Phone: Start: 07-24-2022 Gluc bld gluc mntr d ev cleared fda spec home use Sharonlarisa Ellison PA-C Work Phone: Start: 07-24-2022 Gluc bld gluc mntr d ev cleared fda spec home use Sharonlarisa Ellison PA-C Work Phone: Start: 07-24-2022 Anion gap [Moles/Vol] S tameka Terra PA-C Work Phone: Start: 07-24-2022 Basic metabolic pane l calcium total Sharon Ellison PA-C Work Phone: Start: 07-24-2022 GLOMERULAR FILTRATIO N RATE, ESTIMATED Sharon Ellison PA-C Work Phone: Start: 07-23-2022 Gluc bld gluc mntr d ev cleared fda spec home use Sharon Ellison PA-C Work Phone: Start: 07-23-2022 Dup-scan xtr veins complete bilateral study Kylie Acuna MD Work Phone: Start: 07-23-2022 Ct head/brain w/o co ntrast material Dave Ham MD Work Phone: Start: 07-23-2022 Gluc bld gluc mntr d ev cleared fda spec home use Sharon Ellison PA-C Work Phone: Start: 07-23-2022 Gluc bld gluc mntr d ev cleared fda spec home use Sharon RUCKER-C Work Phone: Start: 07-23-2022 Anion gap [Moles/Vol] S tameka Ellison PA-C Work Phone: Start: 07-23-2022 End: 07-23-2022 Basic metabolic panel calcium total Sharon RUCKER-C Work Phone: Start: 07-23-2022 GLOMERULAR FILTRATIO N RATE, ESTIMATED Sharon Ellison PA-C Work Phone: Start: 07-23-2022 Gas panel - Arterial blood Kylie Acuna MD Work Phone: Start: 07-23-2022 Urinalysis microscop ic only Kylie Acuna MD Work Phone: Start: [...] Work Phone: Start: 07-22-2022 Anion gap [Moles/Vol] Itzel Ellison PA-C Work Phone: Start: 07-22-2022 Basic [...] use Sharon Terra RUCKER-C Work Phone: Start: 07-21-2022 Anion gap [Moles/Vol] S tameka Ellison PA-C Work Phone: Start: 07-21-2022 Basic metabolic pane l calcium total Sharon RUCKER-C Work Phone: Start: 07-21-2022 GLOMERULAR FILTRATIO N RATE, ESTIMATED Sharon Terra RUCKER-C Work Phone: Start: 07-20-2022 Gluc bld gluc mntr d ev cleared fda spec home use Sharon Terra RUCKER-C Work Phone: Start: 07-20-2022 Gluc bld gluc mntr d ev cleared fda spec home use Sharon RUCKER-C Work Phone: Start: 07-20-2022 Fluoroscopy during operation Gabe Harris MD Work Phone: Start: 07-20-2022 Radex spine lumbosac ral 2/3 views Gabe Harris MD Work Phone: Start: 07-20-2022 Radex spine 1 view s pecify level Gabe Harris MD Work Phone: Start: 07-20-2022 End: 07-20-2022 Arthrodesis posterior/posterolateral lumbar Gabe Harris MD Work Phone: Start: 07-20-2022 Anion gap [Moles/Vol] S tameka RUCKER-C Work Phone: Start: 07-20-2022 Basic metabolic pane l calcium total Sharon Ellison PA-C Work Phone: Start: 07-20-2022 GLOMERULAR FILTRATIO N RATE, ESTIMATED Sharon RUCKER-C Work Phone: Start: 07-19-2022 Blood count hemoglobin [...] Work Phone: Comment on above: Performed at [facility] [address] [place] [address] Start: 07-19-2022 Anion gap [Moles/Vol] S tameka [...] lum bar w/o contrast material Osiel Elaine [employer] Work Phone: Start: 04-16-2022 Colonoscopy MD Ruben Luo Work Phone: Start: 04-12-2022 SARS Antigen (LFIA) MD Ruben Luo Work Phone: Start: 01-12-2022 History of placement of stent for coronary artery disease Status post coronary artery stent placement Ruben Luo MD Work Phone: Start: 04-22-2019 Urnls dip stick/tabl et reagent auto microscopy Ralph Mccurdy MD Work Phone: Start: 01-17-2018 CORONARY ARTERY SHIKHA O S\T\I VADIM V MOUKARBEL Start: 01-16-2017 Colonoscopy Ruben levin MD Work Phone: Laboratory test resu lt abnormal Ney Roman Other Plan of Treatment Date Care Activity Detail Author Start: 01-16-2027 Screening for malign ant neoplasm of colon [facility] Start: 06-08-2024 Glaucoma screening Diabetes: R etinopathy Screening [facility] Start: 07-27-2023 GFR test (Diabetes, CKD 3-4, OR last GFR 15-59) GFR test (Diabetes, CKD 3-4, OR last GFR 15-59) [facility] Start: 07-21-2023 Hemoglobin A1c measurement A1C test (Diabetic or Prediabetic) [facility] Start: 06-26-2023 Medicare Annual Well ness (AWV) Medicare Annual Wellness (AWV) [facility] Start: 04-13-2023 Hemoglobin A1c measurement Diabetes: Hemoglobin A1C [facility] Start: 07-20-2022 End: 07-20-2022 Admission to same day surgery center 07/20/2022 Surgery IP Unit Gabe Harris MD [facility] [place] [address] L2-S1 REVISION DECOMPRESSION WITH L2-PELVIS FUSION STRZ [...] Gabe Harris MD [address], [place] [address] STRZ [place] Start: 04-16-2022 [facility] Start: 04-22-2019 Annual Wellness Visi t (AWV) Annual Wellness Visit (AWV) [employer] Start: 12-07-2018 Influenza vaccination Flu vaccine (# 1) [employer] Phone: Start: 04-04-2016 Creatinine monitoring Creatinine mon itoring [employer] Phone: Start: 04-04-2016 Potassium monitoring Potassium monit oring [employer] Phone: Start: 2014 Abdominal aortic aneurysm screening AAA screen [employer] Start: 2014 Pneumococcal 65+ yea rs Vaccine (1 of 1 - PPSV23) Pneumococcal 65+ years Vaccine (1 of 1 - PPSV23) [employer] Phone: Start: 07-06-1999 Colon cancer screen colonoscopy Colon cancer screen colonoscopy [employer] Phone: Start: 07-06-1999 Shingles Vaccine (1 of 2) Shingles Vaccine (1 of 2) [employer] Start: 1994 Screening for malign ant neoplasm of colon [facility] Start: 1989 Lipid panel Lipids [employer] Start: 1989 Lipid screen Lipid screen [employer] [facility] Work Phone: Start: 1968 DTaP/Tdap/Td vaccine (1 - Tdap) DTaP/Tdap/Td vaccine (1 - Tdap) [employer] Start: 07-06-1967 Glaucoma screening Diabetic retinal exam [employer] Start: 07-06-1967 Hepatitis C screening Hepatitis C sc reen [employer] Start: 07-06-1967 Urine screening for protein Diabetic Alb to Cr ratio (uACR) test [employer] Start: 1961 Depression Screen Depression Screen [employer] Start: 1960 DTaP/Tdap/Td vaccine (1 - Tdap) DTaP/Tdap/Td vaccine (1 - Tdap) [employer] Phone: Start: 07-06-1959 Diabetic foot examination Diabetic foot exam [facility] Start: 07-06-1959 Lipid panel Lipids [facility] Start: 1949 AAA screen AAA screen [employer] [facility] Work Phone: Start: 1949 Hepatitis C screen Hepatitis C scree n [employer] Phone: Start: 1949 Screening for malign ant neoplasm of colon [facility] End: 04-22-2019 Bacteria identified in Urine by Culture Urine Culture Microbiology Routine 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 Abnormal digital rectal exam Erectile dysfunction, unspecified erectile dysfunction type 1 Occurrences starting 04/22/2019 until 04/22/2019 [employer] Phone: Comment on above: 1 Occurrences starti ng 04/22/2019 until 04/22/2019 Bacteria identified in Urine by Culture Urine Culture Microbiology Routine 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 Abnormal digital rectal exam Erectile dysfunction, unspecified erectile dysfunction type 04/22/2019 6:56 PM EST [employer] Phone: End: 05-30-2022 CT LUMBAR SPINE WO CONTRAST [employer] Phone: Comment on above: 1 Occurrences starti ng 05/30/2022 until 05/30/2022 End: 05-30-2022 CT THORACIC SPINE WO CONTRAST [employer] Phone: Comment on above: 1 Occurrences starti ng 05/30/2022 until 05/30/2022 Glucose [Mass/volume ] in Serum or Plasma [employer] Phone: Comment on above: 4X Daily (AC & HS) u ntil discontinued starting 07/19/2022, 29 completed As Needed until disc ontinued starting 07/19/2022 End: 07-20-2022 Hemoglobin and Hematocrit Hemoglobin and Hematocrit Lab Routine Post Transfusion Post Transfusion Post Transfustion until discontinued starting 07/19/2022 [employer] Work Phone: Comment on above: Post Transfusion Pos t Transfusion Post Transfustion until discontinued starting 07/19/2022 Initiate RT Inhaler-Nebulizer Bronchodilator Protocol Initiate RT Inhaler-Nebulizer Bronchodilator Protocol Respiratory Care Routine As Needed until discontinued starting 07/21/2022 [employer] Phone: Comment on above: As Needed until disc ontinued starting 07/21/2022 Oxygen therapy [[facility] Data Set] Initiate Oxygen Therapy Protocol Respiratory Care Routine As Needed until discontinued starting 07/20/2022 [employer] Work Phone: Comment on above: As Needed until disc ontinued starting 07/20/2022 Patient Education Colon Polypectomy (DC) [facility] Work Phone: Spirometry panel Incentive erma metry Respiratory Care Routine Every 2hr while awake until discontinued starting 07/20/2022 [employer] Work Phone: Comment on above: Every 2hr while awak e until discontinued starting 07/20/2022 Immunizations Immunization Date Immunization Notes Care Provider [facility] 03-20-2023 Influenza, Seasonal, Quadrivalent, Adjuvanted Ruben Luo MD Work Phone: [facility] 02-03-2022 Moderna Bivalent Booster Vaccination Ruben Luo MD Work Phone: [facility] 02-03-2022 Moderna SARS-CoV-2 Booster Vaccination Ruben Luo MD Work Phone: [facility] 02-03-2022 Moderna SARS-CoV-2 Vaccination Ruben Luo MD Work Phone: [facility] 02-03-2022 SARS-CoV-2, Unspecified Ruiz Luo MD Work Phone: [facility] 12-19-2021 influenza, high dose seasonal, preservative-free Ruben Luo MD Work Phone: [facility] 12-19-2021 Influenza, High-dose Seasonal, Quadrivalent, Preservative Free Ruben Luo MD Work Phone: [facility] 02-04-2021 Moderna SARS-CoV-2 Vaccination Ruben Luo MD Work Phone: [facility] 02-03-2021 Moderna SARS-CoV-2 Booster Vaccination Ruben Luo MD Work Phone: [facility] 01-08-2021 Influenza, High-dose Seasonal, Quadrivalent, Preservative Free Ruben Luo MD Work Phone: [facility] 06-13-2020 Moderna SARS-CoV-2 Vaccination Ruben Luo MD Work Phone: [facility] 05-15-2020 Moderna SARS-CoV-2 Vaccination Ruben Luo MD Work Phone: [facility] 01-15-2020 influenza, high dose seasonal, preservative-free Ruben Luo MD Work Phone: [facility] 01-14-2020 Influenza, High-dose Seasonal, Quadrivalent, Preservative Free Ruben Luo MD Work Phone: [facility] 12-22-2019 pneumococcal polysaccharide vaccine, 23 valent Ruben Luo MD Work Phone: [facility] 12-22-2019 Seasonal, quadrivale nt, recombinant, injectable influenza vaccine, preservative free Ruben Luo MD Work Phone: [facility] 12-13-2018 Seasonal trivalent influenza vaccine, adjuvanted, preservative free Ruben Luo MD Work Phone: [facility] 12-01-2018 pneumococcal conjuga te vaccine, 13 valent Ruben Luo MD Work Phone: [facility] 01-29-2018 Seasonal trivalent influenza vaccine, adjuvanted, preservative free Ruben Luo MD Work Phone: [facility] 01-19-2017 Seasonal trivalent influenza vaccine, adjuvanted, preservative free Ruben Luo MD Work Phone: [facility] 01-19-2017 influenza, high dose seasonal, preservative-free Ney Roman Other [facility] [employer] Other 02-11-2016 influenza, high dose seasonal, preservative-free Ruben Luo MD Work Phone: [facility] 04-06-2014 influenza, seasonal, injectable Ruben Luo MD Work Phone: [facility] 04-06-2014 influenza, seasonal, injectable, preservative free Ruben Luo MD Work Phone: [facility] 04-06-2014 influenza, high dose seasonal, preservative-free Ney Roman Other [facility] [employer] Other 04-06-2014 influenza, injectabl e, quadrivalent, preservative free Oma Sewell Other [facility] [employer] Other 05-01-2013 seasonal influenza, intradermal, preservative free Ruben Luo MD Work Phone: [facility] 01-17-2011 pneumococcal polysaccharide vaccine, 23 valent Ruben Luo MD Work Phone: [facility] 01-29-2010 pneumococcal polysaccharide vaccine, 23 valent Ruben Luo MD Work Phone: [facility] Payers Date Payer Category Payer Self-pay [id number] 2019 Unknown [employer] [address] xxxxxxxxxxxx 2019-Present [phone] [address] [place] [address] xxxxxxxxxxxx [id number] 2019 Unknown 2014 Medicare MEDICARE MEDICAR E PART A AND B xxxxxxxxxxx 2014-Present [phone] [place] [address] xxxxxxxxxxx [id number] 2014 Medicare 1959 Medicare [id number] 1959 Unknown [id number] 2.16.840.1.764822.19 1949 Unknown [id number] 2.16.840.1.999270.3.579.2.647 1949 Unknown [id number] 2.16.840.1.112112.3.579.2.647 1949 Unknown [id number] 2.16.840.1.407382.3.579.2.93 1949 Unknown [id number] 2.16.840.1.101732.3.579.2.93 1949 Unknown [id number] 2.16.840.1.046695.3.579.2.593 1949 Unknown [id number] 2.16.840.1.564497.3.579.2.593 1949 Unknown [id number] 2.16.840.1.646831.3.579.2.593 1949 Unknown [id number] 2.16.840.1.427270.3.579.2.593 1949 Unknown [id number] 2.16.840.1.004424.3.579.2.593 1949 Unknown [id number] 2.16.840.1.521238.3.579.2.593 1949 Unknown [id number] 2.16.840.1.371971.3.579.2.593 1949 Unknown [id number] 2.16.840.1.098311.3.579.2.593 1949 Unknown [id number] 2.16.840.1.964687.3.579.2.593 1949 Unknown [id number] 2.16.840.1.020436.3.579.2.593 1949 Unknown [id number] 2.16.840.1.433473.3.579.2.593 1949 Unknown [id number] 2.16.840.1.316349.3.579.2.593 1949 Unknown [id number] 2.16.840.1.737378.3.579.2.593 1949 Unknown [id number] 2.16.840.1.533333.3.579.2.593 1949 Unknown [id number] 2.16.840.1.169295.3.579.2.593 1949 Unknown [id number] 2.16.840.1.866450.3.579.2.173 1949 Unknown [id number] 2.16.840.1.197609.3.579.2.173 1949 Unknown [id number] 2.16.840.1.597788.3.579.2.173 1949 Unknown [id number] 2.16.840.1.510490.3.579.2.173 1949 Unknown [id number] 2.16.840.1.367833.3.579.2.173 1949 Unknown [id number] 2.16.840.1.461310.3.579.2.173 1949 Unknown [id number] 2.16.840.1.897148.3.579.2.173 1949 Unknown [id number] 2.16.840.1.333999.3.579.2.173 1949 Unknown [id number] 2.16.840.1.043384.3.579.2.173 1949 Unknown [id number] 2.16.840.1.790615.3.579.2.173 1949 Unknown [id number] 2.16.840.1.351409.3.579.2.196 1949 Unknown [id number] 2.16.840.1.928762.3.579.2.196 1949 Unknown [id number] 2.16.840.1.225407.3.579.2.196 1949 Unknown [id number] 2.16.840.1.868334.3.579.2.125 9 1949 Unknown [id number] 2.16.840.1.257886.3.579.2.125 9 1949 Unknown [id number] 2.16.840.1.048041.3.579.2.125 9 Medicare [id number] Unknown [id number] Unknown [facility] [id number] Unknown [id number] 2.16.840.1.686281.3.579.2.531 Unknown [id number] 2.16.840.1.278960.3.579.2.531 Social History Date Type Detail Facility Start: 04-22-2019 End: 04-16-2022 Tobacco smoking status DCIS Former smoker [facility] End: 10-08-1996 History of tobacco use Current smoker [facility] End: 10-08-1996 History of tobacco use Cigarette Smoker [facility] Start: 04-22-2019 End: 01-16-2023 Cigarettes smoked current (pack per day) - Reported [facility] Work Phone: Start: 04-22-2019 End: 05-06-2023 Alcohol intake Current drinker of alcohol (finding) [facility] Work Phone: Start: 10-08-2013 Alcohol Comment rare [facility] [facility] Work Phone: Start: 1950 Sex [facility]igned At Not on file [facility]: Start: 01-16-2023 End: 05-06-2023 Sex Assigned At [facility] [employer] Other Start: 1950 Sex Assigned At Male F [facility] Start: 10-29-2013 End: 05-06-2023 Tobacco use and exposure Smokeless tobacco non-user [employer] Work Phone: Start: 07-09-2022 End: 07-19-2022 Exposure to SARS-CoV-2 (event) Not sure [employer] Start: 11-01-2022 End: 05-06-2023 Tobacco smoking status NHIS Never smoked tobacco [facility] Start: 11-01-2022 Education 10 [facility] Start: 11-01-2022 Alcohol Comment Caffeine intak e: 1-2 cups per day diet soda [facility] Medical Equipment Procedure Code Equipment Code Equipment Origin al Text Equipment Identifier Dates Test Strips Start: 09-06-2017 Roel Spnl Contour ed 5.5x150 Mm Lumbar Ti [place] - [id number] Start: 07-20-2022 Goals Date Patient Goal Desired Activity /State Clinical Notes 12-13-2015 to 05-07-2023 Note Date & Type Note Facility 05-07-2023 Evaluation note Encounter Date Diagnosis Assessment Notes Apr, CKD (chronic kidney disease) stage 4, GFR [...] hemodynamic changes. He understood and verbalized information. Apr, Anemia of renal disease (ICD-10 - D63.1) Hemoglobin is within the goal but has adequate iron stores. Change Procrit 20,000 unit every 4-5 weeks. 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 He appears to be euvolemic. Continue Lasix 40 mg daily. Continue current dose of the carvedilol and amlodipine. 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 He is not a suitable candidate for SGL 2 inhibitors including Farxiga, Invokana and Jardiance. Also will avoid NOELLE/ARB due to the history of hyperkalemia. Apr, Hyperkalemia (ICD-10 - E87.5) He had hyperkalemia due to the CKD and losartan. His potassium is back to normal after discontinuation of the losartan Apr, Secondary hyperparathyroidism (ICD-10 - N25.81) His PTH, calcium and phosphorus were within the goal but he had vitamin D deficiency. Continue Vit D 2000 units Daily Apr, Proteinuria (ICD-10 - R80.9) He has a nephrotic range proteinuria likely due to diabetic nephropathy. He has unremarkable work-up for paraproteinemia. Continue home losartan. Apr, Microscopic hematuria (ICD-10 - R31.29) He has longstanding microscope hematuria and was seen by the urology in the past. He had a cystoscopy and reported was unremarkable. He does not want to have urology work-up for now. He will let me know if he changes mind. Apr, Hypomagnesemia (ICD-10 - E83.42) He had hypomagnesemia possibly due to the renal magnesium wasting. Continue oral magnesium [facility] Other 01-29-2024 History of Present illness Narrative* Ruben Luo MD - 05/06/2023 11:45 AM EST Patient ID: Omer Santos is a 72 y.o. male who presents for: Ankle Pain Patient complains of right ankle pain. Onset of the symptoms was yesterday. Inciting event: a fall . Current symptoms include: ability to bear weight, but with some pain, bruising, pain with inversion of the foot, pain with eversion of the foot, and swelling. Aggravating factors: going up and down stairs, standing, walking , and weight bearing. Patient has had no prior ankle problems. Previous visits for this problem: none. . Review of Systems Constitutional: Negative for chills and fever. Respiratory: Negative for cough, shortness of breath and wheezing. Cardiovascular: Negative for chest pain and palpitations. Gastrointestinal: Negative for abdominal pain. Genitourinary: Negative for frequency and urgency. Objective Patient is in no acute distress but does appear uncomfortable. He is limping on the right leg. The ankle has some diffuse edema but more so over the lateral aspect. No evidence of abrasion, increase calor, increased rubor. The forefoot is nontender to compression. The base of the fifth metatarsal is nontender. The ankle is diffusely tender especially over the lateral malleolus. There is a mild to moderate anterior drawer test. Visit Vitals Ht 5' 7 Wt 163 lb BMI 25.53 kg/m Smoking Status Never BSA 1.87 m Allergies Allergen Reactions Gabapentin Other Reaction(s): explosive diarrhea Amlodipine Swelling Codeine Nausea And Vomiting Noelle Inhibitors Other Reaction(s): cough, Other (See Comments), Unknown Other reaction(s): Other (See Comments) Cough Cough Hydrocodone-Acetaminophen Other Reaction(s): nausea vomiting Levofloxacin Pregabalin Other Reaction(s): Other Sulfamethoxazole-Trimethoprim Nausea And Vomiting Current Outpatient Medications Medication Instructions albuterol 2.5 mg, Inhalation, Every 6 hours PRN amLODIPine (NORVASC) 10 mg, Oral, Daily aspirin 81 mg, Oral, 3 times weekly atorvastatin (LIPITOR) 40 mg, Oral, Daily azelastine (Astelin) 0.1 % nasal spray 2 sprays, Each Nostril, 2 times daily PRN carvedilol (COREG) 3.125 mg, Oral, 2 times daily with meals carvedilol (COREG) 6.25 mg, Oral, 2 times daily with meals cholecalciferol (VITAMIN D-3) 50 mcg, Oral, Daily cyanocobalamin (VITAMIN B-12) 500 mcg, Oral, Daily epoetin michelle (EPOGEN,PROCRIT) 1,000 Units, Subcutaneous, See admin instructions, Every 3 weeks ferrous sulfate 325 mg, Oral, 2 times daily furosemide (LASIX) 20 mg, Oral, Daily glipiZIDE (GLUCOTROL) 5 mg, Oral, Daily Magnesium 400 MG capsule 1 tablet, Oral, Daily before breakfast nitroglycerin (NITROSTAT) 0.4 mg, Sublingual, Every 5 min PRN Assessment/Plan Diagnoses and all orders for this visit: Injury of right ankle, initial encounter - XR ankle 3+ views right; Future I discussed with him at a minimum he has an ankle sprain. There is some chance that he will have a fracture of the lateral malleolus. We have mutually agreed to sending him for x-ray evaluation. OnceI have that evaluation I will contact the patient back by telephone. He is going to go directly there. Fall (on) (from) other stairs and steps, initial encounter - XR ankle 3+ views right; Future This does sound like a simple accident. Other than his right foot drop he does not have a specific fall risk. Luckily he did not injure his lumbar or cervical spine which had recent surgery. Right ankle swelling - XR ankle 3+ views right; Future Overweight with body mass index (BMI) 25.0-29.9 documented [facility] encounter[facility] [id number] History of Present illness Narrative* Ruben Luo MD - 04/30/2023 11:30 AM EST Patient ID: Omer Santos is a 72 y.o. male who presents for: Hypertension Patient is here for follow-up of elevated blood pressure. He is exercising and is adherent to a low-salt diet. Blood pressure is well controlled at home. Cardiac symptoms: none. Patient denies chest pain, dyspnea, irregular heart beat, lower extremity edema, and palpitations. Cardiovascular risk factors: advanced age (older than 55 for men, 65 for women), diabetes mellitus, dyslipidemia, hypertension, male gender, and smoking/ tobacco exposure. Use of agents associated with hypertension: none. History of target organ damage: none. Hyperlipidemia Pt who presents for follow-up of dyslipidemia. A repeat fasting lipid profile was not done. The patient does not use medications that may worsen dyslipidemias (corticosteroids, progestins, anabolic steroids, diuretics, beta-blockers, amiodarone, cyclosporine, olanzapine). Exercise: daily. Diabetes Mellitus Patient presents for follow up of diabetes. Current symptoms include: none. Symptoms have stabilized. Patient denies hyperglycemia, hypoglycemia , increased appetite, polyuria, and visual disturbances. Evaluation to date has included: hemoglobin A1C. Home sugars: BGs consistently in an acceptable range. Review of Systems Constitutional: Negative for activity change and fatigue. Respiratory: Negative for cough, shortness of breath and wheezing. Cardiovascular: Negative for chest pain, palpitations and leg swelling. Neurological: Negative for light-headedness and headaches. Objective [facility] Result Encounter on 04/15/2023 Component Date Value Ref Range Status [facility] WBC 04/15/2023 9.2 4.0 - 11.0 10 3/uL Final [facility] RBC 04/15/2023 3.24 (L) 4.70 - 6.10 10 6/uL Final [facility] HGB 04/15/2023 10.2 (L) 14.0 - 18.0 g/dL Final [facility] HCT 04/15/2023 30.5 (L) 42.0 - 54.0 % Final [facility] MCV 04/15/2023 94.1 (H) 80.0 - 94.0 fL Final [facility] MCH 04/15/2023 31.5 25.9 - 34.0 pg Final [facility] MCHC 04/15/2023 33.4 29.9 - 35.2 g/dL Final [facility] RDW 04/15/2023 14.4 11.0 - 15.0 % Final [facility] PLT 04/15/2023 171 150 - 450 10 3/uL Final [facility] MPV 04/15/2023 8.7 (L) 9.5 - 13.5 fL Final [facility] Result Encounter on 03/23/2023 Component Date Value Ref Range Status [facility] WBC 03/23/2023 7.2 4.0 - 11.0 10 3/uL Final [facility] RBC 03/23/2023 3.08 (L) 4.70 - 6.10 10 6/uL Final [facility] HGB 03/23/2023 9.4 (L) 14.0 - 18.0 g/dL Final [facility] HCT 03/23/2023 28.9 (L) 42.0 - 54.0 % Final [facility] MCV 03/23/2023 93.8 80.0 - 94.0 fL Final [facility] MCH 03/23/2023 30.5 25.9 - 34.0 pg Final [facility] MCHC 03/23/2023 32.5 29.9 - 35.2 g/dL Final [facility] RDW 03/23/2023 14.4 11.0 - 15.0 % Final [facility] PLT 03/23/2023 171 150 - 450 10 3/uL Final [facility] MPV 03/23/2023 8.8 (L) 9.5 - 13.5 fL Final [facility] IRON 03/23/2023 73.0 65.0 - 175.0 ug/dL Final [facility] TOTAL IRON BINDING CAPACITY 03/23/2023 233.0 (L) 250.0 - 450.0 ug/dL Final [facility] PERCENT IRON SATURATION 03/23/2023 31.3 % Final SODIUM 03/23/2023 143 136 - 145 mmol/L Final POTASSIUM 03/23/2023 4.8 3.5 - 5.1 mmol/L Final CHLORIDE 03/23/2023 106 98 - 107 mmol/L Final CARBON DIOXIDE 03/23/2023 27.5 21.0 - 32.0 mmol/L Final ANION GAP 03/23/2023 14.3 Final GLUCOSE 03/23/2023 101 74 - 106 mg/dL Final BLOOD UREA NITROGEN 03/23/2023 50.0 (H) 7.0 - 18.0 mg/dL Final CREATININE 03/23/2023 2.53 (H) 0.70 - 1.30 mg/dL Final [facility] EGFR-AF [place] 03/23/2023 30 (L) >=60 Final [facility] EGFR-NON AF [place] 03/23/2023 25 (L) >=60 Final BUN CREATININE RATIO 03/23/2023 19.8 Final CALCIUM 03/23/2023 8.3 (L) 8.5 - 10.1 mg/dL Final PHOSPHORUS 03/23/2023 4.4 2.6 - 4.7 mg/dL Final ALBUMIN LEVEL 03/23/2023 3.3 (L) 3.4 - 5.0 g/dL Final FERRITIN 03/23/2023 211.0 26.0 - 388.0 ng/mL Final Visit Vitals BP 122/74 Pulse 70 Ht 5' 7 Wt 163 lb SpO2 98% BMI 25.53 kg/m Smoking Status Never BSA 1.87 m Allergies Allergen Reactions Gabapentin Other Reaction(s): explosive diarrhea Amlodipine Swelling Codeine Nausea And Vomiting Noelle Inhibitors Other Reaction(s): cough, Other (See Comments), Unknown Other reaction(s): Other (See Comments) Cough Cough Hydrocodone-Acetaminophen Other Reaction(s): nausea vomiting Levofloxacin Pregabalin Other Reaction(s): Other Sulfamethoxazole-Trimethoprim Nausea And Vomiting Current Outpatient Medications Medication Instructions albuterol 2.5 mg, Inhalation, Every 6 hours PRN amLODIPine (NORVASC) 10 mg, Oral, Daily aspirin 81 mg, Oral, 3 times weekly atorvastatin (LIPITOR) 40 mg, Oral, Daily azelastine (Astelin) 0.1 % nasal spray 2 sprays, Each Nostril, 2 times daily PRN carvedilol (COREG) 3.125 mg, Oral, 2 times daily with meals carvedilol (COREG) 6.25 mg, Oral, 2 times daily with meals cholecalciferol (VITAMIN D-3) 50 mcg, Oral, Daily cyanocobalamin (VITAMIN B-12) 500 mcg, Oral, Daily doxycycline (VIBRAMYCIN) 100 mg, Oral, Daily PRN epoetin michelle (EPOGEN,PROCRIT) 1,000 Units, Subcutaneous, See admin instructions, Every 3 weeks ferrous sulfate 325 mg, Oral, 2 times daily furosemide (LASIX) 20 mg, Oral, Daily glipiZIDE (GLUCOTROL) 5 mg, Oral, Daily Magnesium 400 MG capsule 1 tablet, Oral, Daily before breakfast nitroglycerin (NITROSTAT) 0.4 mg, Sublingual, Every 5 min PRN Assessment/Plan Diagnoses and all orders for this visit: Primary hypertension (CMS/HCC) Chronic problem, stable, to goal. Comanagement with cardiology and nephrology. He is in need of anymotor pain refill which is under a different diagnosis. Hypertensive kidney disease with stage 4 chronic kidney disease (CMS/HCC) Chronic problem, stable, calm managed with nephrology. Continue to work towards good blood pressureand blood sugar control. Stage 4 chronic kidney disease (CMS/HCC) Chronic problem, stable, comanagement nephrology and followed longitudinally. Nephrotic syndrome Component Latest Ref Rng 07/12/2022 PROTEIN URINE <=12.0 901.3 () URINE CREAT 20.00 - 300.00 124.19 UR PROT CREAT RAT 7.26 Chronic problem with slow progression. Continue to hydrate, exercise, maintain good blood pressure and good blood sugar control. Type 2 diabetes mellitus with stage 4 chronic kidney disease, without long-term current use of insulin (CMS/HCC) - glipiZIDE (Glucotrol) 5 MG tablet; Take 1 tablet (5 mg) by mouth in the morning. Chronic problem, stable In prescribing a renewal to their current medication, consideration of the following encompasses moderate decision making; the current prescriptions and supplements, the current allergies and medication intolerances, current medical conditions, and potential drug interactions. Drug interaction screening is reviewed and there are moderate to major severity ratings to consider during prescription drug management. If the adjusted medication is considered a controlled substance, then the OARRS and NARX scores are obtained and reviewed. Any changes to risks, benefits, and reason for renewing their current medication due to the above were discussed. The patient was given a chance to ask questions today and all questions were answered. The patient is to contact us, preferably by using the patient portal, or call if any other questions arise or ifany problems occur with the renewal of their medication. (Utilizing the original guidelines or the 2020 new office/outpatient code guidelines for selecting the level of E/M service, In both sets of guidelines, prescription drug management appearsin the moderate medical decision making (MDM) row. Neither the original guidelines nor the new guidelines state that a new prescription or change is needed in order to credit prescription drug management) Hyperlipidemia associated with type 2 diabetes mellitus (CMS/HCC) - atorvastatin (Lipitor) 40 MG tablet; Take 1 tablet (40 mg) by mouth in the morning. Diabetic peripheral neuropathy (CMS/HCC) Chronic problem, stable, only mildly impacting him. Continue to monitor longitudinally. Polypharmacy Chronic problem Evaluating the patient's electronic health record today, we specifically note the patient has 5 or more prescriptions and/or multi-morbidity defined as 5 or more diagnoses. Treatment regimens are increasingly complex and potentially harmful, and people with polypharmacy need regular review and prescribing optimisation, with at least a moderate risk of morbidity from themedications themselves creating at least a moderate degree of evaluation and management. This was done today and reviewed with the patient. [facility]MC Med https://www.ncbi.nlm.nih.gov/pmc/articles/QUN6037137/. 2014; 13: 74. Published online 2014Jul 13. https://www.ncbi.nlm.nih.gov/pubmed/96739060 The rising tide of polypharmacy and drug-drug interactions: population database analysis 1326-1793 https://www.ncbi.nlm.nih.gov/pmc/articles/ZPI9983891/. 5. Gene K, Vita SW, Urszula M, Lizbeth G, Maria Del Carmen S, Joshua Fam. Epidemiology of multimorbidity and implications for health care, research, and medical education: a cross-sectional study. Lancet. 2012;380:37-43. Overweight with body mass index (BMI) 25.0-29.9 Former smoker, stopped smoking in distant past Benign essential HTN (CMS/HCC) - amLODIPine (Norvasc) 10 MG tablet; Take 1 tablet (10 mg) by mouth in the morning. Recent spine surgery He has fairly good range of motion of the neck. He notes it is significantly helped his pain and his balance. He is looking forward to [employer] the spring. I also updated his physician of record data in the electronic health record. documented in this encounterDoctors Hospital of [id number] Evaluation note* Encounter Date Diagnosis Assessment Notes Treatment Notes Treatment Clinical Notes Mar, CKD (chronic kidney disease) stage [...] and verbalized information. Mar, Anemia of renal dise ase (ICD-10 - D63.1) Hemoglobin is below the goal but has adequate iron stores. We will Continue Procrit 20,000 unit every 3 weeks. Mar, Deuce hy kid w cr kid I-IV (ICD-10 - I12.9) Blood pressure is controlled. He appears to be euvolemic. Continue Lasix 40 mg daily. Continue current dose of the carvedilol and amlodipine. Mar, Diabetes mellitus wi th chronic kidney disease [...] for paraproteinemia. Continue home losartan. Mar, Microscopic hematuri a (ICD-10 - R31.29) He has longstanding microscope hematuria and was seen by the urology in the past. He had a cystoscopy and reported was unremarkable. He does not want to have urology work-up for now. He will let me know if he changes mind. Mar, Hypomagnesemia (ICD- 10 - E83.42) He had hypomagnesemia possibly due to the renal magnesium wasting. Continue oral magnesium [facility] Other 12-13-2023 Evaluation note* Encounter Date Diagnosis [...] Mar, S/P carotid endarterectomy (ICD-10 - Z98.890) [facility] Other 11-20-2023 Evaluation note* Encounter Date Diagnosis Assessment Notes Treatment Notes Treatment Clinical Notes Feb, Anemia of renal disease (ICD-10 - D63.1) Feb, CKD (chronic kidney disease) stage 4, GFR 15-29 ml/min (ICD-10 - N18.4) [facility] Other 11-15-2023 Note[facility] Subjective Omer Santos is a 72 y.o. 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 He [...] to take Viagra. He was admitted to [facility] in 06/2020 with renal dysfunction and acute [...] rales. Chest: Chest wal (more content not included)...[facility] 02-11-2023 Evaluation note* Encounter Date Diagnosis Assessment Notes Treatment Notes Treatment Clinical Notes Feb, Anemia of renal disease (ICD-10 - D63.1) [facility] Other 10-30-2023 NoteDischarge Summary Date of Admission: [...] Gabe Harris MD Electronically signed by Gabe Harris MD, Jr 02/04/23 05:55 [facility] 02-01-2023 NoteC-spine radiographs on 02/01/2023 Clinical History: [...] Is Signed, Electronically Signed in Other Vendor System)[facility] HospitalComment on above:Order Comment: [id number] sent for at 0632s 02-01-2023 NoteDATE OF PROCEDURE: 01/31/2023 PREOPERATIVE DIAGNOSES: [...] 3. C3 through C6 anterior cervical plate, [place] with 16-mm fixed angle and variable screws, Strykerinstrumentation SURGEON: Gabe Harris M.D. CENTERLESS GRINDER: Lizette Osorio PA-C. Lizette Osorio PA-C, assisted [...] permanent speech and swallowing disturbances, DVT/PE, stroke, CO, etc. All questions were answered and informed [...] going back to th (more content not included)...[facility]* Encounter Date Diagnosis Assessment [...] the renal magnesium wasting. Continue oral magnesium [facility] Other 10-12-2023 Evaluation note* Encounter Date Diagnosis [...] the renal magnesium wasting. Continue oral magnesium [facility] Other 08-31-2023 Evaluation note* Encounter Date Diagnosis [...] the renal magnesium wasting. Continue oral magnesium [facility] Other 08-10-2023 Evaluation note* Encounter Date Diagnosis [...] the renal magnesium wasting. Continue oral magnesium [facility] Other 07-20-2023 Evaluation note* Encounter Date Diagnosis [...] the renal magnesium wasting. Continue oral magnesium [facility] Other 06-05-2023 Evaluation note* Encounter Date Diagnosis [...] the renal magnesium wasting. Continue oral magnesium [facility] Other 05-09-2023 Evaluation note* Encounter Date Diagnosis [...] continue same supplement improve we will supplement [facility] Other [id number] NotePROCEDURE: VL DUP LOWER EXTREMITY VENOUS BILATERAL [...] Jose R Bianchi MD 07/26/22 Final resultSaint [facility] NotePROCEDURE: DUP LOWER EXTREMITY VENOUS BILATERAL CLINICAL INFORMATION: [...] normal color flow, augmentation and phasic response. [facility] [id number] History of Present illness Narrative* Megan Meza - 07/26/2022 4:37 PM EDT Hubert as he likes to be called is to a Buddhism . She and he appreciate prayer and [...] For: Patient and family together Referral/Consult From: [employer] Spouse Last Encounter 07/26/22 Complexity [...] Lab Results: CBC: Recent Labs 07/24/22 0436 07/25/229 07/26/22 045 WBC 4.6* 3.9* 4.3* HGB 7.4* 7.6* 7.4* PLT 132 148 147 BMP: Recent Labs 07/24/22 0436 07/24/22 1444 07/25/2243807/26/22454 NA 137 -- 135 134* K 5.6* [...] PM VL DUP LOWER EXTREMITY VENOUS BILATERAL [[id number]] Resulted: 07/23/22 1719 Updated: 07/23/22 172 Narrative: FINDINGS: There is normal color flow, spectral analysis and compressibility of the common femoral vein, superficial femoral vein and popliteal vein bilaterally . There is normal color flow and compressibility in the posterior tibial veins, anterior tibial veinsand peroneal veins. Impression: No evidence of a DVT. CT HEAD WO CONTRAST [[id number]] Resulted: 07/23/22 1323 Updated: 07/23/22 132 Narrative: [...] DIANN Leblanc - 07/26/2022 8:38 AM EDT [facility] OCCUPATIONAL THERAPY MISSED TREATMENT NOTE [facility] ONC MED 5K 5K-26/026-A Date: 07/26/2022 Patient Name: Omer Santos CSN: [id number] : 1950 (72 y.o.) Gender: male Referring Practitioner: Shraon Ellison PA-C Diagnosis: lumbar spondylosis REASON FOR [...] PM VL DUP LOWER EXTREMITY VENOUS BILATERAL [[id number]] Resulted: 07/23/22 171 Updated: 07/23/22 172 Narrative: FINDINGS: There is normal color flow, spectral analysis and compressibility of the common femoral vein, superficial femoral vein and popliteal vein bilaterally . There is normal color flow and compressibility in the posterior tibial veins, anterior tibial veinsand peroneal veins. Impression: No evidence of a DVT. CT HEAD WO CONTRAST [[id number]] Resulted: 07/23/22 1323 Updated: 07/23/22 132 Narrative: [...] EDT Physician Progress Note PATIENT: OMER SANTOS [facility] #: [id number] : 1950 ADMIT DATE: 07/19/2022 9:24 AM [...] you! Greg Merino, LÁZARON,RN, CRCR RN Clinical Surveyor Options provided: -- Drug-induced encephalopathy -- Toxic [...] Kylie Acuna MD 07/25/2022 1:19 PM * Carlitajero Diana Jaleel, PT - 07/25/2022 10:37 AM EDT [facility] INPATIENT PHYSICAL THERAPY DAILY NOTE [facility] ONC MED 5K - 5K-26/026-A Time In: 943 Time Out: 1022 Timed Code Treatment Minutes: [...] Ambulation Assistance: Independent Transfer Assistance: Independent Active Seed Cleaner: Yes Additional Comments: Information provided by due [...] steps without HR CGA for home entry. 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 Following session, patient left in safe position with all fall risk precautions in place. * DIANN Zavala - 07/25/2022 9:58 AM EDT [facility] OCCUPATIONAL THERAPY MISSED TREATMENT NOTE [facility] ONC MED 5K 5K-26/026-A Date: 07/25/2022 Patient Name: Omer Santos CSN: [id number] : 1950 (72 y.o.) Gender: male Referring [...] Marmolejo, PT - 07/24/2022 2:59 PM EDT [facility] INPATIENT PHYSICAL THERAPY DAILY NOTE [facility] [...] Ambulation Assistance: Independent Transfer Assistance: Independent Active Seed Cleaner: Yes Additional Comments: Information provided by due [...] steps without HR CGA for home entry. Correction Goals Time Frame for Hard Candy Batch Mixer Goals : NA due to short length of stay. Following session, patient left in safe position with all fall risk precautions in place. * Tracy Cintron DIANN - 07/24/2022 10:36 AM EDT [facility] ONC MED 5K Occupational Therapy Daily Note Time: Time In: 956 Time Out: 1035 Timed Code Treatment Minutes: 39 Minutes Minutes: 39 Date: 07/24/2022 Patient Name: Omer Santos, Gender: male Room: [address] [place] [address] : 1950 (72 y.o.) Referring Practitioner: Sharon [...] Prior L2-S1 decompression by Dr Shanks in [place] in 2011. Patient is a nonsmoker. H/o [...] of treatment: Fair treatment tolerance Discharge Recommendations: Subacute/chcf facility, 24 hour assistance or supervision, and [...] PM VL DUP LOWER EXTREMITY VENOUS BILATERAL [[id number]] Resulted: 07/23/22 1719 Updated: 07/23/22 172 Narrative: FINDINGS: There is normal color flow, spectral analysis and compressibility of the common femoral vein, superficial femoral vein and popliteal vein bilaterally . There is normal color flow and compressibility in the posterior tibial veins, anterior tibial veinsand peroneal veins. Impression: No evidence of a DVT. CT HEAD WO CONTRAST [[id number]] Resulted: 07/23/22 1323 Updated: 07/23/22 1326 Narrative: [...] cardura SCD Am labs. Kylie Acuna MD, * Sharon Ellison PA-C - 07/24/2022 6:42 [...] PM VL DUP LOWER EXTREMITY VENOUS BILATERAL [[id number]] Resulted: 07/23/22 1719 Updated: 07/23/22 172 Narrative: FINDINGS: There is normal color flow, spectral analysis and compressibility of the common femoral vein, superficial femoral vein and popliteal vein bilaterally . There is normal color flow and compressibility in the posterior tibial veins, anterior tibial veinsand peroneal veins. Impression: No evidence of a DVT. CT HEAD WO CONTRAST [[id number]] Resulted: 07/23/22 1323 Updated: 07/23/22 1326 Narrative: [...] Preciado OT - 07/23/2022 2:18 PM EDT [facility] INPATIENT OCCUPATIONAL THERAPY [facility] ONC MED 5K EVALUATION Time: Time In: [...] Prior L2-S1 decompression by Dr Shanks in [place] in 2011. Patient is a nonsmoker. 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 VISION:WFL HEARING: WFL COGNITION: Decreased Recall, Decreased Insight, Decreased Safety Awareness, Impaired Attention, Difficulty Following Commands, Impulsive, and argumentative with encouragement, restless RANGE OF MOTION: Bilateral Upper Extremity: WFL STRENGTH: Bilateral Upper Extremity: elbow flex 4/5 ext 4-/5 certified residential medication aide (F-) SENSATION: WFL ADL: No ADL's completed [...] would benefit from continued therapy after discharge, Subacute/Jail Facility, Correction Care with OT, 24 hour supervision or [...] Pt is a 72y.o. male, in . Bingo Caller was called to room due to a Rapid Response-Stroke Related alert; pt Caridad was also in the room. Bingo Caller provided brief prayer for Hubert prior to going toCT, presence, prayer and griefcare for Caridad as she waited for him to return. Caridad shared several personal/familial losses experienced between she and Hubert over the past few years, and has led tobeing leery while in a hospital setting-causing extra layer of stress and worry for them. Bingo Caller prayed for Caridad as well as she mauro with all this-met with gratitude by Caridad. 07/23/22 1410 Encounter Summary Encounter Overview/Reason Crisis Service Provided For: Patient and family together Referral/Consult From: Nursing Cake Puncher/Health Care Consultant System Spouse Last Encounter 07/23/22 Complexity of Encounter High Begin Time 1245 End Time 1327 Total Time Calculated 42 min Crisis Type Rapid Response Assessment/Intervention/Outcome Assessment Compromised coping;Concerns with suffering;Impaired resilience;Impaired social interaction;Shock;Tearful Intervention Active listening;Sustaining Presence/Ministry of presence;Prayer (assurance of)/[place];Nurtured Hope;Explored/Affirmed feelings, thoughts, concerns;Discussed illness injury and it s impact;Discussed relationship with God Outcome Receptive;Expressed Gratitude;Expressed feelings, needs, and concerns;Engaged in conversation;Coping * Gaby León, [facility] - 07/23/2022 2:05 PM EDT Code Stroke [...] PharmD, BCPS 07/23/2022 2:05 PM * Carlita Adalgisahaily Marmolejo, PT - 07/23/2022 10:36 AM EDT [facility] INPATIENT PHYSICAL THERAPY EVALUATION [facility] 5K - 5K-26/026-A Time In: 948 Time Out: 1021 Timed Code Treatment Minutes: [...] pt refuses PT initially, does participate in [employer] B LE and rolls in bed x [...] Functional Limits Hearing: Within functional limits Pain: 10/10: only able to have Tylenol due to lethargy (received ~45 mins prior to session) Vitals: Vitals not assessed per clinical judgement, see nursing flowsheet Social/Functional History: Lives With: Spouse Type of Home: House Home Layout: One level Home Access: Stairs to enter without rails Entrance Stairs - Number of Steps: 3 Home Equipment: Walker, rolling Ambulation Assistance: Independent Transfer Assistance: Independent Active Seed Cleaner: Yes 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 Functional Outcome Measures: Completed -[facility] Inpatient Mobility without Stair Climbing Raw Score : 6 -[facility] Inpatient without Stair Climbing T-Scale [...] Term Goal 2: PT to assess mobility. Correction Goals Time Frame for Hard Candy Batch Mixer Goals : NA due to short length [...] in place, pt bp soft, medicated per global mobility specialist, o2 sats low, pt unresponsive post anesthesia 1525 - pt still unresponsive post anesthesia, global mobility specialist at bedside 1540 - pt still unresponsive, [...] patient 1715 - report called to Herman HATCH 1720 - pt meets criteria for discharge from pacu at this time 1727 - pt transported to [facility] in stable condition * Darcy [...] procedure Temp: 97.8 documented in this encounterBON SHARP CORONADO HOSPITALPayDivvy Work Phone: 1(890) 583-455304-19-2023 NotePROCEDURE: XR LUMBAR SPINE (2-3 VIEWS) CLINICAL [...] Signed by: Lalo Polanco DO 07/25/22 Final resultSaint [facility]04-19-2023 NotePROCEDURE: XR LUMBAR SPINE (2-3 VIEWS) CLINICAL [...] lumbar spine, stable compared to prior exam. [id number] NotePROCEDURE: VL DUP LOWER EXTREMITY VENOUS BILATERAL [...] by: Héctor Mcdonnell MD 07/23/22 Final resultSaint Saint Alph[facility]04-17-2023 NotePROCEDURE: VL DUP LOWER EXTREMITY VENOUS BILATERAL [...] tibial veins, anterior tibial veinsand peroneal veins. [facility] [id number] NotePROCEDURE: CT HEAD WO CONTRAST CLINICAL INFORMATION: [...] Signed by: Gissel Escobedo MD 07/23/22 Final resultSLas [facility]mas Medical Center04-17-2023 NotePROCEDURE: CT HEAD WO CONTRAST CLINICAL INFORMATION: [...] sinuses. There is no suspicious calvarial abnormality. [facility] [id number] NotePROCEDURE: XR LUMBAR SPINE 1 VW CLINICAL INFORMATION: surgery . TECHNIQUE: Crosstable lateral portable done in the OR COMPARISON: No prior study. FINDINGS: Barman localizer overlies the pedicle of L2. IMPRESSION: Localizer at L2. This report has been created using voice recognition software. It may contain minor errors which are inherent in voice recognition technology. Final report electronically signed by Dr. Simba Castle on 07/20/2022 12:20 PM Interpreted by: Simba Castle MD Signed by: Simba Castle MD 07/20/22 Final resultSaint Saint Alph[facility]04-14-2023 NotePROCEDURE: XR LUMBAR SPINE 1 VW CLINICAL INFORMATION: surgery . TECHNIQUE: Crosstable lateral portable done in the OR COMPARISON: No prior study. FINDINGS: Barman localizer overlies the pedicle of L2. [facility] RIS [id number] NoteOmer is here for a 6 month follow up with no cardiac concerns. He is having surgery on his lower back on July 20. His , Caridad, states that PCP cleared him for surgery after reviewing recent stress test. Review of Systems Cardiovascular: Positive for dyspnea on exertion. States he's Having trouble walking. Skin: Positive for suspicious lesions. Concerned about spots on both forearms.[facility] 07-18-2022 NoteCardiovascular Medicine [facility] SUBJECTIVE Chief Complaint Patient presents with Follow-up [...] asthma. Follows up with vascular surgery in [place] for carotid artery stenosis status post endarterectomy of right carotid. HPI Last HPI per Dr. Veronica: Omer Santos is seen in follow up. He is a 71-year-old man, who was admitted with kza-QC-fjexagp elevation myocardial infarction in january 2018. He [...] to take Viagra. He was admitted to [facility] in 06/2020 with renal dysfunction and acute [...] [address] Юлия Savage out of [place]. He denies any complaints today including no CP, dyspnea, orthopnea, PND, LE edema, dizziness/LH, palpitations, syncope. He c/o lower back pain which limits his mobility and muscle loss from lack of mobility with his LLE. 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 BP during stress test last week was 208/88, BP in office today 156/62 and recheck was 172/64. He has not been routinely checking his BP at home. He c/o ecchymotic lesions to his JESSICA extremities. His Caridad accompanied him today. Patient Active Problem List Diagnosis Coronary artery disease involving takotna coronary artery of takotna heart without angina pectoris Status post coronary [...] Inhibitors Unknown Other re (more content not included)...[facility] 07-17-2022 Evaluation note* Encounter Date Diagnosis Assessment [...] to the risk of a cardiac arrhythmias. [employer] Other 03-16-2023 Evaluation note* Encounter Date Diagnosis [...] let me know if he changes mind. [employer] Other 02-02-2023 Evaluation note* Encounter Date Diagnosis Assessment Notes Treatment Notes Treatment Clinical Notes May, Anemia of renal disease (ICD-10 - D63.1) May, Chronic kidney disease, stage 3b (ICD-10 - N18.32) [employer] Other 01-30-2023 Evaluation note* Encounter Date Diagnosis [...] let me know if he changes mind. [employer] Other 01-09-2023 [facility]* Encounter Date Diagnosis Assessment Notes Treatment Notes Treatment Clinical Notes Jan, History of colon polyps (ICD-10 - Z86.010) [employer] Other 09-08-2022 Evaluation note* Encounter Date Diagnosis [...] unremarkable Kidneys on renal US. Dec, Deuce green kid w cr kid I-IV (ICD-10 - [...] let me know if he changes mind. [employer] Other 06-16-2022 Evaluation note* Encounter Date Diagnosis [...] these d differential diagnoses. Continue home losartan. [employer] Other 05-09-2022 Evaluation note* Encounter Date Diagnosis [...] evaluate for hematuria and proteinuria. August, Deuce caballero cr kid I-IV (ICD-10 - I12.9) Blood [...] We will check PTH and vitamin D. [employer] Other 05-05-2022 Evaluation note* Encounter Date Diagnosis [...] for several more years in my opinion. [employer] Other 09-06-2016 Evaluation note* Encounter Date Diagnosis [...] meantime with any issues or concerns whatsoever. [employer] Other Evaluation note* Diagnosis Enlarged prostate Hypertrophy of prostate without urinary obstruction and other lower urinary tract symptoms (LUTS) BPH with obstruction/lower urinary tract symptoms Hypertrophy of prostate with urinary obstruction and other lower urinary tract symptoms (LUTS) Abnormal digital rectal exam Other abnormal clinical finding Erectile dysfunction, unspecified erectile dysfunction type documented in this encounter [employer] Phone: evaluation noteNo assessment information [facility] Work Phone: Evaluation note* Diagnosis Spondylosis of lumbosacral region without myelopathy or radiculopathy Lumbosacral spondylosis without myelopathy Lumbar spondylosis Lumbosacral spondylosis without myelopathy Postlaminectomy syndrome, lumbar Postlaminectomy syndrome, lumbar region Spinal stenosis of lumbar region with neurogenic claudication Spinal stenosis, lumbar region, with neurogenic claudication documented in this encounter [employer] Phone: [email or web address] note* Diagnosis Osteopenia of lumbar spine documented in this encounter [employer] Phone: [email or web address] note* Diagnosis Spinal stenosis, lumbar region, without neurogenic claudication Right foot drop Other acquired deformity of ankle and foot documented in this encounter [employer] Phone: [id number] noteNo InformationNortExcela [facility] [employer] Other Evaluation note* Diagnosis Examination for normal comparison for clinical research Examination of participant in clinical trial Lumbar spondylosis Lumbosacral spondylosis without myelopathy Spinal stenosis, unspecified spinal region Spondylolisthesis, unspecified spinal region documented in this encounter [employer] Phone: [email or web address] note* Diagnosis Lumbar spondylosis- Primary Lumbosacral spondylosis [...] Acute posthemorrhagic anemia documented in this encounter [employer] Phone: evaluation note* Diagnosis Stage 4 chronic kidney disease ([facility]/HCC)- Primary Primary hypertension ([facility]/HCC) Unspecified essential hypertension Hypertensive kidney disease with stage 4 chronic kidney disease (CMS/HCC) Nephrotic syndrome Nephrotic syndrome with unspecified pathological lesion in kidney Type 2 diabetes mellitus with stage 4 chronic kidney disease, without long-term current use of insulin (CMS/HCC) Hyperlipidemia associated with type 2 diabetes mellitus (CMS/HCC) Diabetic peripheral neuropathy ([facility]/HCC) Type II or unspecified type diabetes mellitus with neurological manifestations, not stated as uncontrolled Polypharmacy Issue of repeat prescriptions Overweight with body mass index (BMI) 25.0-29.9 Former smoker, stopped smoking in distant past Benign essential HTN ([facility]/HCC) Mild intermittent asthma without complication ([facility]/HCC) Coronary arteriosclerosis ([facility]/HCC) Coronary atherosclerosis of unspecified type of vessel, takotna or graft documented in this encounter [facility] HealthcareEvaluation note* Diagnosis Injury of right ankle, initial encounter- Primary Fall (on) (from) other stairs and steps, initial encounter Right ankle swelling Effusion of ankle and foot joint Overweight with body mass index (BMI) 25.0-29.9 Fall (on) (from) other stairs and steps, initial encounter Injury of right ankle, initial encounter Right ankle swelling Effusion of ankle and foot joint documented in this encounter [facility] HealthcareHistory and physical note Author Orlando Beaver [facility] April 16, 2022 9:33am Note Date/Time April 16, 2022 9: 33am [facility] [address] [place] [address] Gastroenterology H&P Signed Patient: Omer Santos MR#: [id number] : 1950 Acct:[id number] Age/Sex: 71 / M Adm Date: 3 Loc: Room: Type: [facility] Attending Dr: Orlando Beaver MD Copies to: [...] <Electronically signed by Orlando Beaver MD> 04/16/22932 [facility] Work Phone: History general Narrative - Reported* [...] Extracranial repair 01/02/2016 Surgical History Heart Cath/stent [facility] 01/2018 Surgical History heart cath 09/12/2018 Hospitalization History see surgical hx Hospitalization History ER- Acute Bronchitis 07/08 08/22 Hospitalization History [facility] Cardiac Issues 2017 [employer] Other history general Narrative - Reported* Type [...] Extracranial repair 01/02/2016 Surgical History Heart Cath/stent [facility] 01/2018 Surgical History heart cath 09/12/2018 Hospitalization History see surgical hx Hospitalization History ER- Acute Bronchitis 07/08 08/22 Hospitalization History [facility] Cardiac Issues 2017 [employer] Other history general Narrative - Reported* Type [...] Extracranial repair 01/02/2016 Surgical History Heart Cath/stent [facility] 01/2018 Surgical History heart cath 09/12/2018 Surgical History CERVICAL FUSION X3 01/31/2023 Hospitalization History see surgical hx Hospitalization History ER- Acute Bronchitis 07/08 08/22 Hospitalization History [facility] Cardiac Issues 2017 [employer] Other Hospital Discharge instructions Additional Instructions DISCHARGE [...] -Follow up with PCP. - Office number [phone].[facility] Work Phone: Summary Purpose Family History No Family History Records Found Relationship Condition Age at Onset Recorded Date/T juan sister Malignant neoplasm of breast Unknown daughter Malignant neoplasm of ovary Unknown Advance Directives No Advanced Directives Records FoundDocuments on File Type Date Recorded Patient Differential Repairer Expl anation Advance Directives and Living Will Power of Breaker Table Worker Advance Directive Response Recorded Date/ Time Advance Directives No May 13, 2017 1:30pm Documents on File Type Date Recorded Patient Differential Repairer Expl anation ACP-Advance Directive 07/24/2022 8:33 AM Latest Code Status on File Code Status Date Activated Date Inactivated Comments Full Code 07/19/2022 11:45 AM Hospital Course Note MR#: [id number] 2 [facility] Pt. Name: Omer Santos Admitted: [...] a 67-year-old male, who presented initially to [facility] complaining of chest pain, stating that around 5 p.m. yesterday, he woke from a nap, experiencing pain radiating to his jaw and then on the left side of his chest. The patient reports that when he was trying to walk up some stairs, it exacerbated his pain and persisted for about an hour. Initial workup at [place] was negative and r (more content not [...] Sharon Ellison PA-C [address] [place] [address] Referral ID Status Reason Start Date Expiration Date Visits Re quested Visits Authorized [id number] Closed 05/22/2022 05/22/2023 1 1 Specialty Diagnoses / Procedures Referred By Contac t Referred To Contact Radiology Diagnoses Osteopenia of lumbar spine Procedures DEXA BONE DENSITY AXIAL SKELETON Sharon Ellison PA-C [facility] [place] [address] Referral ID Status Reason Start Date Expiration Date Visits Re quested Visits Authorized [id number] Closed 05/22/2022 05/22/2023 1 1 Specialty Diagnoses / Procedures Referred By Contac t Referred To Contact Radiology Diagnoses Spondylosis of lumbosacral region without myelopathy or radiculopathy Lumbar spondylosis Postlaminectomy syndrome, lumbar Spinal stenosis of lumbar region with neurogenic claudication Procedures MRI LUMBAR SPINE WO CONTRAST Osiel Elaine R, BATCH MAKER - YARD JACKER [address] [id number] Referral ID Status Reason Start Date Expiration Date Visits Re quested Visits Authorized [id number] Closed 03/30/2022 03/30/2023 1 1 Additional Source Comments (unrecognized sect ion and content) No Status Records FoundNo Status Records FoundNo Status Records FoundNo Status Records FoundNo Status Records FoundNo Status Records FoundNo Status Records FoundNo Status Records Found INFORMATION SOURCE (unrecogn ized section and content) DATE CREATED AUTHOR 12/02/2018 [facility] DATE CREATED AUTHOR AUTHOR'S ORGANIZ ATION 07/27/2022 [facility] DATE CREATED AUTHOR AUTHOR'S ORGANIZ ATION 08/16/2022 [facility] DATE CREATED AUTHOR AUTHOR'S ORGANIZ ATION 01/13/[address] [facility] DATE CREATED AUTHOR AUTHOR'S ORGANIZ ATION 02/04/2023 [facility] DATE CREATED AUTHOR AUTHOR'S ORGANIZ ATION 02/22/2023 [facility] DATE CREATED AUTHOR AUTHOR'S ORGANIZ ATION 05/11/2023 [facility] EPIC DATE CREATED AUTHOR AUTHOR'S ORGANIZ ATION 05/23/2023 [facility] REASON FOR VISIT (unrecogniz ed section and content) Specialty Diagnoses / Procedures Referred By Contac t Referred To Contact Radiology Diagnoses Spondylosis of lumbosacral region without myelopathy or radiculopathy Lumbar spondylosis Postlaminectomy syndrome, lumbar Spinal stenosis of lumbar region with neurogenic claudication Procedures MRI LUMBAR SPINE WO CONTRAST Osiel Elaine R, BATCH MAKER - [employer]ARD [employer]ER [address] [id number] Referral ID Status Reason Start Date Expiration Date Visits Re quested Visits Authorized [id number] Closed 03/30/2022 03/30/2023 1 1 Specialty Diagnoses / Procedures Referred By Contac t Referred To Contact Radiology Diagnoses Osteopenia of lumbar spine Procedures DEXA BONE DENSITY AXIAL SKELETON Sharon Ellison PA-C [address] [place] [address] Referral ID Status Reason Start Date Expiration Date Visits Re quested Visits Authorized [id number] Closed 05/22/2022 05/22/2023 1 1 Specialty Diagnoses / Procedures Referred By Contac t Referred To Contact Radiology Diagnoses Spinal stenosis, lumbar region, without neurogenic claudication Right foot drop Procedures CT LUMBAR SPINE WO CONTRAST Sharon Ellison PA-C [address] [place] [address] Referral ID Status Reason Start Date Expiration Date Visits Re quested Visits Authorized [id number] Closed 05/22/2022 05/22/2023 1 1 Specialty Diagnoses / Procedures Referred By Contac t Referred To Contact Radiology Diagnoses Spinal stenosis, lumbar region, without neurogenic claudication Right foot drop Procedures CT THORACIC SPINE WO CONTRAST Sharon Ellison PA-C [address] [place] [address] Referral ID Status Reason Start Date Expiration Date Visits Re quested Visits Authorized [id number] Closed 05/22/2022 05/22/2023 1 1 Specialty Diagnoses / Procedures Referred By Contac t Referred To Contact Diagnoses Lumbar spondylosis Spinal stenosis, unspecified spinal region Spondylolisthesis, unspecified spinal region Lumbar spondylosis [M47.816] Spinal stenosis, unspecified spinal region [M48.00] Spondylolisthesis, unspecified spinal region [M43.10] Procedures IA ARTHRODESIS POSTERIOR/PSTLAT TQ 1NTRSPC LUMBAR IA ARTHRODESIS PST/PSTLAT TQ 1NTRSPC EA ADDL NTRSPC IA ARTHRODESIS SI JT OPN W/OBTAINING B1 GRF INSTRMJ IA [place] FACETECTOMY&FORAMOT 1 VRT SGM EA ADDL SGM IA POSTERIOR SEGMENTAL INSTRUMENTATION 3-6 VRT SEG IA ALLOGRAFT FOR SPINE SURGERY ONLY MORSELIZED L2-S1 REVISION DECOMPRESSION WITH L2-PELVIS FUSION Gabe Harris MD [address] [place] [address] [facility] [id number] [place] [address] Referral ID Status Reason Start Date Expiration Date Visits Re quested Visits Authorized [id number] 1 1 Reason Comments Hyperlipidemia Hypertension Diabetes Reason Comments Ankle Injury Fall Care Teams (unrecognized sec tion and content) Team Status: Active Member Role Status Dates Ruben Luo MD Primary Care Provider Active Team Status: Inactive Member Role Status Dates Ruben Luo MD Primary Care Provider Active Ney Roman MD Attending Provider Active Team Status: Inactive Member Role Status Dates Ruben Luo MD Primary Care Provider Active Orlando Beaver MD Attending Provider Active Modeling And Simulation Analyst Relationship Specialty Start Date End Date Ruben Luo MD PCP - General 09/15/13 Modeling And Simulation Analyst Relationship Specialty Start Date End Date Ruben Luo MD PCP - General 09/15/13 Modeling And Simulation Analyst Relationship Specialty Start Date End Date Ruben Luo MD PCP - General 09/15/13 Modeling And Simulation Analyst Relationship Specialty Start Date End Date Ruben Luo MD PCP - General 09/15/13 Modeling And Simulation Analyst Relationship Specialty Start Date End Date Ruben Luo MD [address] [place] [address] PCP - General Family Medicine 08/28/22 Ruben Luo MD [address] [place] [address] (Fax) PCP - ACO Reach 08/30/22 Modeling And Simulation Analyst Relationship Specialty Start Date End Date Ruben Luo MD [address] [place] [phone] PCP - General Family Medicine 08/28/22 Ruben Luo MD [address] [place] [address] PCP - ACO Reach 08/30/22 Goals (unrecognized section and content) Goals may [...] dose on Sat07/19/22 at 1830, Until Discontinued 184 (Given - Provider: Justa Haney RN) 181 [...] RN) 0845 (Given - Provider: Justa Tobias RN)172 (Given - Provider: Justa Tobias RN) 08 (Given - Provider: Irene Sauer RN)164 (Given - Provider: Irene Sauer RN) Dexamethasone Sodium Phosphate injection 8 mg (COMPLETED) 8 mg, IntraVENous, EVERY 8 HOURS, First dose on Sat07/23/22 at 1530, For 6 doses 0758 (Given - Provider: Yomaira Lynn, MAMIE)1630 (Given - Provider: Justa Haney, MAMIE)2225 (Given - Provider: Juan Bermeo RN) 0844 (Given - Provider: Justa Tobias RN) doxazosin (CARDURA) tablet 4 mg (CANCELED) 4 mg, Oral, EVERY MORNING, First dose on Sat07/20/22 at 0900, Until Discontinued 08 (Given - Provider: Yomaira Lynn, MAMIE) 0845 (Given - Provider: Justa Tobias RN) [...] RN - Comment: blood glucose is 334) 2100 (Due) losartan (COZAAR) tablet 50 mg 50 mg, Oral, DAILY, First dose on Sat07/19/22 at 1615, Until Discontinued 08 (Given - Provider: Yomaira Lynn RN) 0845 (Given - Provider: Justa Tobias RN) 0823 (Given - Provider: Irene Sauer RN) magnesium oxide (MAG-OX) tablet 400 mg 400 mg, Oral, DAILY, First dose on Sat07/19/22 at 1830, Until Discontinued 0805 (Given - Provider: Yomaira Lynn RN) 0900 (Given - Provider: Justa Tobias RN) 0823 (Given - Provider: Irene Sauer RN) polyethylene glycol (GLYCOLAX) packet 17 g 17 g, Oral, DAILY, First dose on Sat07/21/22 at 0900, Until Discontinued, Stir and dissolve [...] hours before or 2 hours after dose. 0927 (Given - Provider: Yomaira Lynn RN) sodium [...] Nebulization, EVERY 4 HOURS PRN, Starting on [facility] 07/21/22 at 0820, Until Discontinued, Wheezing, Initiate [...] IntraVENous, EVERY 6 HOURS PRN, Starting on 07/20/22 at 1712, Until Discontinued, Nausea, Vomiting, Administer [...] BE BASED ON THE PRIMARY CLINICAL RECORDS. [employer] provides no warranty or guarantee of the accuracy or completeness of information in this document.
[2023-06-07 11:59] LABS: Hematocrit 29.3 % (42.0-54.0); Hemoglobin 9.8 g/dL (14.0-18.0); Mean Corpuscular HGB Conc 33.4 g/dL (29.9-35.2); Mean Corpuscular Hemoglobin 31.9 pg (25.9-34.0); Mean Corpuscular Volume 95.4 fL (80.0-94.0); Mean Platelet Volume 8.6 fL (9.5-13.5); Platelet Count 169 10^3/uL (150-450); Red Blood Count 3.07 10^6/uL (4.70-6.10); Red Cell Distribution Width 13.6 % (11.0-15.0); White Blood Count 8.1 10^3/uL (4.0-11.0)
[2023-06-07 12:23] LABS: Albumin Level 3.4 g/dL (3.4-5.0); Anion Gap 15.5; BUN Creatinine Ratio 21.4; Calcium 8.5 mg/dL (8.5-10.1); Carbon Dioxide 26.5 mmol/L (21.0-32.0); Chloride 107 mmol/L (98-107); Estimated GFR (African America 33 (>=60); Estimated GFR (Non-African Ame 27 (>=60); Glucose 125 mg/dL (74-106); Phosphorus 4.3 mg/dL (2.6-4.7); Sodium 144 mmol/L (136-145); Uric Acid 6.4 mg/dL (3.5-7.2)
[2023-06-07 12:56] LABS: Bilirubin Urine NEGATIVE (NEGATIVE); Blood Urine SMALL (NEGATIVE); Clarity Urine CLEAR (CLEAR); Color Urine LT. YELLOW (YELLOW); Glucose Urine UA NEGATIVE (NEGATIVE); Ketones Urine NEGATIVE (NEGATIVE); Leukocyte Esterase Urine NEGATIVE (NEGATIVE); Nitrite Urine NEGATIVE (NEGATIVE); Protein Urine >=300 mg/dL (NEG/TRACE); Specific Gravity Urine 1.025 (1.005-1.025); Urobilinogen Urine 0.2 EU/dL (0.2-1.0)
[2023-06-07 13:07] LABS: Bacteria Urine NONE SEEN #/HPF (NONE SEEN); Crystals Seen? None Seen #/HPF (None Seen); Mucus Urine NONE SEEN (NONE SEEN); Squamous Epithelial Cell Urine RARE #/LPF (NONE/RARE); WBC Urine 0-2 #/HPF (NONE SEEN)
[2023-06-07 13:08] LABS: Cast Seen? NONE SEEN #/LPF (NONE SEEN)
[2023-06-09 12:07] LABS: PTH, Intact 76 pg/mL (15-65)
== END 2023-06-07 11:33 | disposition home or self-care (01) ==
LOC: LAB 11:32
PROVIDERS: PCP Family Medicine; Visit Provider Internal Medicine
DX: I12.9 Hypertensive chronic kidney disease with stage 1 through stage 4 chronic kidney disease, or unspecified chronic kidney disease (principal); N18.4 Chronic kidney disease, stage 4 (severe); D63.1 Anemia in chronic kidney disease; E11.22 Type 2 diabetes mellitus with diabetic chronic kidney disease; E87.5 Hyperkalemia; N25.81 Secondary hyperparathyroidism of renal origin; R80.9 Proteinuria, unspecified; R31.29 Other microscopic hematuria; E83.42 Hypomagnesemia
CPT/HCPCS: 36415; 80069; 81001; 82306; 83735; 83970; 84550; 85027

== ENCOUNTER 2023-07-06 10:42 | Outpatient (OUT) | payer MEDICARE, OTHER, SELFPAY ==
--- OUTSIDE RECORDS SUMMARY | 2023-07-06 10:46 | XMS_ITS | CCD ---
Author Organization [facility] Care Team Providers Care Laboratory Animal Care Veterinarian Name Role Phone UNKNOWN, PROVIDER Admitting Unavailable UNKNOWN, PROVIDER Attending Unavailable RUBEN LUO Referring Unavailable RUBEN LUO Primary Care Unavailable GABY ORTIZ Admitting Unavailable GABY ORTIZ Attending Unavailable RUBEN LUO Primary Care Unavailable OTILIA SANCHEZ Referring Unavailable OK Procedure Practitioner Unavailab le UNKNOWN, PROVIDER Surgeon Unavailable Ruben Luo MD Primary Care Provider Ney Roman Unavailable [phone] Trina Samsul Unavailable Orlando Beaver Unavailable MD Ruben Luo Primary Care Provider MD Orlando Beaver Attending Provider Ruben Luo MD Primary Care Provider Ruben Luo MD Primary Care Provider [phone] RUBEN LUO Primary Care Unavailable DYAN, OLUREMI A Consulting Unavailable RUBEN LUO Primary Care Unavailable UDO-INYANG, INYANG Admitting Unavailable UDO-INYANG, INYANG Attending Unavailable Mckay Motleyiz Unavailable DONATO, OMA Attending Unavailable DONATO, OMA Admitting Unavailable HEMEDOUGIE ., DR WILCOX Primary Care Unavailable DONATOOMA Consulting Unavailable HEMEYER ., DR WILCOX Primary [...] ., DR WILCOX Primary Care Unavailable DONATO, OAM Admitting Unavailable DONATO, OMA Attending Unavailable HEMEYER ., DR WILCOX Primary Care Unavailable ZIEBER, DR MEMO aHnna Consulting Unavailable DONATO, OMA Attending Unavailable DONATO, [...] Dasia Flowers Unavailable UDO-INYANG, INYANG Referring Unavailable HEMEYER, RUBEN Porter Primary Care Unavailable UDO-INYANG, INYANG Attending Unavailable RUBEN LUO Primary Care Unavailable UDO-INYANG, INYANG Referring Unavailable UDO-INYANG, INYANG Referring Unavailable RUBEN LUO Primary Care Unavailable UDO-INYANG, INYANG Referring Unavailable RUBEN LUO Primary Care Unavailable TERRA, SHARON Referring Unavailable HEMERUBEN CONSTANTINO Primary Care Unavailable TERRA, SHARON Referring Unavailable HEMERUBEN CONSTANTINO Primary Care Unavailable TERRA, SHARON Referring Unavailable HEMERUBEN CONSTANTINO Primary Care Unavailable UDO-INYANG, INYANG Referring Unavailable HEMERUBEN CONSTANTINO Primary Care Unavailable OSIEL ELAINE Referring Unavailable RUBEN LUO Primary Care Unavailable UDO-INYANG, INYANG Referring Unavailable RUBEN LUO Primary Care Unavailable MD Ruben Luo Primary Care Provider [phone] MD Ney Roman Attending Provider Ruben Luo MD Primary Care Provider [phone] Ruben Luo MD Unavailable RUBEN LUO Attending Unavailable RUBEN LUO Attending Unavailable RUBEN LUO Referring Unavailable Ruben Luo Primary Care Unavailable Ney Roman Admitting Unavailabl Ney Bucio Attending Unavailabl e Ruben Luo Primary Care Unavailable Ney Roman Admitting Unavailabl Ney Bucio Attending Unavailabl VADIM Hutchins Attending Unavailable VADIM VERONICA Attending Unavailable IRA PLAZA Attending Unavailable Lupe TURPIN, Ruben Dill Primary Care Lizette Stapleton Consulting Unavailable Gabe Harris MD, Jr Admitting Unavail able Gabe Harris MD, Jr Attending Unavail able Patricia Richards Consulting Unavailable Lupe TURPIN, Ruben Dill Primary Care Dmoenic Campos MD Attending Unavaila marialuisa Brink PA-C, Natan Beckwith Attending Unavail able Lupe TURPIN, Ruben Dill Primary Care Ky Luo MD, Ruben Fuentes Primary Care Gabe Barnhart MD Jr Attending Unavail able Allergies Allergy Classification Reported Allergen(s) Allergy Type Date of Onset Reaction(s) Facility (20 sources) Angiotensin Converting Enzyme (Noelle) Inhibitors; Translations: [NOELLE INHIBITORS] Propensity to adverse reactions to drug 09-17-19 14 Other (See Comments) [facility] (20 sources) Acetaminophen / HYDROcodone Drug Allergy nausea vomiting [facility] [employer] Other (20 sources) Lisinopril; Translations: [lisinopril] Drug Allergy cough [facility] Repository (6 sources) Codeine; Translations: [CODEINE] Drug Allergy 07-12-19 Nausea And Vomiting [facility] [employer] Phone: (5 sources) Sulfamethoxazole / Trimethoprim; Translations: [SULFAMETHOXAZOLE-T RIMETHOPRIM] Drug Allergy 07-12-19 23 Nausea And Vomiting [facility] [employer] Phone: (12 sources) Substance with sulfonamide structure and antibacterial mechanism of action (substance) Drug allergy stomach upset [facility] [employer] Other (4 sources) Acetaminophen / HYDROcodone; Translations: [HYDROCODONE-ACETAM INOPHEN] Drug Allergy 05-15-19 22 [facility] (4 sources) amLODIPine; Translations: [AMLODIPINE] Drug Allergy 05-15-19 22 Swelling [facility] (3 sources) Angiotensin-convert ing enzyme inhibitor agent Drug Intolerance 09-17-19 14 [facility] (5 sources) gabapentin; Translations: [GABAPENTIN] Drug Allergy 07-06-19 23 [facility] (4 sources) levoFLOXacin; Translations: [LEVOFLOXACIN] Drug Allergy 01-13-20 22 [facility] (4 sources) Pregabalin; Translations: [PREGABALIN] Allergy to substance 07-06-19 [facility] (1 source) Acetaminophen Drug Allergy 05-07-19 [facility] Repository (1 source) Angiotensin Converting Enzyme (Noelle) Inhibitors Drug allergy (disorder) 05-07-19 [facility] Repository (1 source) HYDROcodone Drug Allergy 05-07-19 [facility] Repository (1 source) Lisinopril Drug Allergy 05-07-19 [facility] Repository (1 source) Sulfonamides (Antibiotic) Drug allergy (disorder) 05-07-19 [facility] Repository (1 source) Naproxen; Translations: [Aleve] Drug Allergy [facility] Repository (1 source) Sulfonamides (Antibiotic); Translations: [sulfa drugs] Propensity to adverse reactions to drug (disorder) [facility] Repository Medications Current Medications Medication Drug Class(es) [...] 0.5 tablet by mouth once daily Biotin 00119 MCG 1/2 TABLET Orally Once a day Active take 1 tablet by mouth once yamilka y Biotin 88180 MCG 1 tablet Orally Once a day [...] 0 08/28/2022 Active take 1 capsule by [facility] every twenty-four hours Vitamin D3 50 MCG [...] Daily April 16, 2022 12:00am epoetin michelle 49841 unt/ml injectable solution (20 sources) Erythropoiesis-stimulating Agent epoetin michelle (Epogen,Procrit) 46791 UNIT/ML injection Inject 1,000 Units under the skin See administration instructions. Every 3 weeks 0 Active Procrit 69534 UN IT/ML as directed Injection every 4 weeks Active Procrit 53626 UN IT/ML as directed Injection every 4 weeks Active epoetin michelle (OK OCRIT) 71797 UNIT/ML injection Inject 1,000 Units into the skin once a week Unsure on dosage gets at dr Sams office 0 Active ferrous bisglycinate 15 mg [...] disease, without long-term current use of insulin ([facility]) Take 1 tablet (5 mg) by mouth [...] (4 tablet ), Oral, PRN, Starting on Sat07/19/22 at 1757, Until Discontinued, Low blood sugar [...] Magnesium (4 sources) take 1 tablet by paipto th before mealtime Magnesium 400 MG capsule [...] dose on 07/21/22 at 0900, Until Discontinued Do not crush [...] Not-Taking docusate sodium 50 mg / sennosides, residential 8.6 mg oral tablet (1 source) Start: [...] prn Active take 1 capsule by mo [facility] twice daily as needed doxycycline [...] 16, 2022 12:00am take 1 tablet by [facility] in the morning ferrous sulfate [...] not crush or break. polyethylene glycol 3350 30532 mg powder for oral solution (1 source) [...] line therapy. 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] Onset: 3 [...] coronary angioplasty implant and graft] Onset: 01-12-2022 10-24-2022 Episodic Disorders of lipid metabolism (20 sources) Mixed hyperlipidemia; Translations: [Mixed hyperlipidemia] Onset: 01-22-2018 Resolved: 10-30-2022 Chronic Genitourinary symptoms and ill-defined conditions (20 sources) Proteinuria, unspecified; Translations: [Other microscopic hematuria] Onset: 02-22-2020 Resolved: 05-10-2023 Episodic Other acquired deformities (3 sources) Acquired spondylolisthesis; Translations: [Spondylolisthesis, site unspecified] Onset: 01-15-2019 10-24-2022 Episodic Other aftercare (5 sources) Polypharmacy ; Translations: [Other fpc (current) drug therapy] Onset: 10-18-2020 05-10-2023 Episodic [...] Test Name Value Interpretation Reference Range Facility Office Visiton 06-24-2023 Follow-up visit [id number] Omer Santos 1950 M Date Provider Department Center 06/24/2023 VADIM SANTOS Family History Problem Relation Age of Onset Coronary artery disease Father Other Father Heart attack Father Coronary artery disease Brother Heart attack Brother Other Brother Heart attack Paternal Grandfather Family Status - Relation Status Age at Father Brother Paternal Grandfather Level of Service:42831 [place] OFFICE/OUTPATIENT ESTABLISHED MOD MDM 30 MIN Normal [facility] XR ANKLE 3+ VIEWS RIGHTon XR ANKLE [...] ELECTRONICALLY SIGNED BY: Diaz De Oliveira DO [facility] Radiology Study observation (narrative) [facility] XR Ankle - right 3 ViewsOrde red By: Diaz De Oliveira on 05-06-2023 [facility] Povocar e Work Phone: US carotid doppler BIon 03-08 US carotid doppler BI [facility] [place] [address] Ultrasound Report Signed Patient: Omer Santos MR#: [id number] 7 : 1950 Acct:[id number] Age/Sex: 72 / M ADM Date: 03/20/23 Loc: [facility] Room: Type: [facility] Attending Dr: Ney Roman MD Ordering [...] Ney Roman MD03/20/2023 11:06 AM Dictation Location: [place] [address] Tech: Malini Dimitri Transcribed By: SENDY 03/20/23 110 Dictated By: Ney Roman MD 03/20/23 110 Signed By: 03/20/23 110 [facility] Office Visiton 02-20-2023 Follow-up visit [id number] Omer Santos 1950 M Date Provider Department Center 02/20/2023 VADIM SANTOS [facility] Family History Problem Relation Age of Onset Coronary artery disease Father Other Father Heart attack Father Coronary artery disease Brother Heart attack Brother Other Brother Heart attack Paternal Grandfather Family Status - Relation Status Age at Father Brother Paternal Grandfather Level of Service:15680 [place] OFFICE/OUTPATIENT ESTABLISHED MOD MDM 30-39 MIN Reason for Visit and Comments: Follow-up [865075] - 6 months Normal [facility] .eGFRon 02-01-2023 Estimated GFR 24 mL/min/1.73m? Low >=60 [facility] Comment on above: Result Comment: [facility] Laboratories have implemented the eGFR calculation [...] Performed By: #### . Manual Diff #### [place] [id number] CBC w/ Diffon 02-01-2023 Erythrocyte distribution width (RBC) [Ratio] 16.2 % High 11.6-14.8 [facility] Comment on above: Performed By: #### C BC #### [place] [id number] Hematocrit (Bld) [Volume fraction] 29.5 % Low 41.0-53.0 [facility] Comment on above: Performed By: #### C BC #### [place] [id number] Hemoglobin (Bld) [Mass/Vol] 10.2 g/dL Low 13.5-17.5 [facility] Comment on above: Performed By: #### C BC #### [place] [id number] MCH (RBC) [Entitic mass] 30.2 pg Normal 27.0-35.0 [facility] Comment on above: Performed By: #### C BC #### [place] [id number] MCHC 34.5 % Normal 31.0-37.0 [facility] Comment on above: Performed By: #### C BC #### [place] [id number] MCV (RBC) [Entitic vol] 87.5 fL Normal 80.0-100.0 [facility] Comment on above: Performed By: #### C BC #### [address] [place] [address] Platelet 151 x10*3/mcL Normal 150-450 [facility] Comment on above: Performed By: #### C BC #### [address] [place] [address] Platelet mean volume (Bld) [Entitic vol] 7.2 fL Normal 6.7-10.6 [facility] Comment on above: Performed By: #### C BC #### [address] [address] RBC 3.37 x10*6/mcL Low 4.30-5.80 [facility] Comment on above: Performed By: #### C BC #### [address] [address] WBC 10.6 x10*3/mcL Normal 4.5-11.0 [facility] Comment on above: Performed By: #### C BC #### [address] [address] CMPon 02-01-2023 Albumin [Mass/Vol] 3.3 g/dL Normal 3.2-4.9 [facility] Comment on above: Performed By: #### C [id number] #### [address] [address] Albumin/Globulin [Mass ratio] 1.2 {ratio} Normal 1.1-2.2 [facility] Comment on above: Performed By: #### C [id number] #### [address] [address] Alk Phos 100 IU/L High 32-91 [facility] Comment on above: Performed By: #### C [id number] #### [address] [place] [address] ALT [Catalytic activity/Vol] 15 U/L Low 17-63 [facility] Comment on above: Performed By: #### C [id number] #### [address] [address] Anion gap [Moles/Vol] 11 mmol/L Normal 7-17 [facility] Comment on above: Performed By: #### C [id number] #### [address] [address] AST [Catalytic activity/Vol] 17 U/L Normal 15-41 [facility] Comment on above: Performed By: #### C [id number] #### [address] [address] Bili Total 0.5 mg/dL Normal 0.3-1.2 [facility] Comment on above: Performed By: #### C [id number] #### [address] [address] Calcium [Mass/Vol] 8.0 mg/dL Low 8.5-10.3 [facility] Comment on above: Performed By: #### C [id number] #### [address] [address] Chloride [Moles/Vol] 107 mmol/L Normal 98-110 [facility] Comment on above: Performed By: #### C [id number] #### [address] [address] CO2 [Moles/Vol] 20 mmol/L Low 22-32 [facility] Comment on above: Performed By: #### C [id number] #### [address] [address] Creatinine [Mass/Vol] 2.68 mg/dL High 0.61-1.24 [facility] Comment on above: Performed By: #### C [id number] #### [address] [address] Glucose [Mass/Vol] 268 mg/dL High 70-99 [facility] Comment on above: Performed By: #### C [id number] #### [address] [address] Potassium [Moles/Vol] 5.3 mmol/L High 3.4-4.8 [facility] Comment on above: Performed By: #### C [id number] #### [address] [address] Protein [Mass/Vol] 6.1 g/dL Low 6.5-8.1 [facility] Comment on above: Performed By: #### C [id number] #### [address] [address] Sodium [Moles/Vol] 133 mmol/L Normal 133-142 [facility] Comment on above: Performed By: #### C [id number] #### [address] [address] Urea nitrogen [Mass/Vol] 67 mg/dL High 8-26 [facility] Comment on above: Performed By: #### C D:[id number] #### [address] [address] Urea nitrogen/Creatinine [Mass ratio] 25.0 mg/mg High 10.0-20.0 [facility] Comment on above: Performed By: #### C [id number] #### [address] [address] Diff Autoon 02-01-2023 Baso Absolute 0.0 x10*3/mcL Normal 0.0-0.2 [facility] Comment on above: Performed By: #### . Manual Diff #### [address] [address] Basophils/100 WBC (Bld) 0.3 % Normal 0.0-1.2 [facility] Comment on above: Performed By: #### . Manual Diff #### [address] [address] Eos Absolute 0.0 x10*3/mcL Normal 0.0-0.4 [facility] Comment on above: Performed By: #### . Manual Diff #### [address] [address] Eosinophils/100 WBC (Bld) 0.0 % Normal 0.0-6.1 [facility] Comment on above: Performed By: #### . Manual Diff #### [address] [address] Lymph Absolute 0.3 x10*3/mcL Low 1.0-4.8 [facility] Comment on above: Performed By: #### . Manual Diff #### [address] [address] Lymphocytes/100 WBC (Bld) 3.2 % Low 27.2-40.8 [facility] Comment on above: Performed By: #### . Manual Diff #### [address] [address] Jay Absolute 0.2 x10*3/mcL Low 0.3-1.1 [facility] Comment on above: Performed By: #### . Manual Diff #### [address] [address] Monocytes/100 WBC (Bld) 2.1 % Low 4.7-13.9 [facility] Comment on above: Performed By: #### . Manual Diff #### [address] [address] Neutro Absolute 10.0 x10*3/mcL High 1.8-7.7 [facility] Comment on above: Performed By: #### . Manual Diff #### [address] [address] Neutro Auto 94.4 % High 47.2-70.8 [facility] Comment on above: Performed By: #### . Manual Diff #### [address] [address] Diff Yoli 02-01-2023 Anisocyte Slight Normal [facility] Comment on above: Performed By: #### . Manual Diff #### [address] [place] [address] Band form neutrophils/100 WBC (Bld) 0 % Normal 0-5 [facility] Comment on above: Performed By: #### . Manual Diff #### [address] [address] Basophils/100 WBC (Bld) 0 % Normal 0-3 [facility] Comment on above: Performed By: #### . Manual Diff #### [address] [address] Eosinophils/100 WBC (Bld) 0 % Normal 0-7 [facility] Comment on above: Performed By: #### . Manual Diff #### [address] [address] Lymphocytes/100 WBC (Bld) 2 % Low 14-42 [facility] Comment on above: Performed By: #### . Manual Diff #### [address] [address] Monocytes/100 WBC (Bld) 2 % Normal 1-11 [facility] Comment on above: Performed By: #### . Manual Diff #### [address] [address] Myelo Man 1 % High 0-0 [facility] Comment on above: Performed By: #### . Manual Diff #### [address] [address] Platelet estimate Adequate Normal [facility] Comment on above: Performed By: #### . Manual Diff #### [address] [address] Segs Man 95 % High 49-79 [facility] Comment on above: Performed By: #### . Manual Diff #### [address] [address] Hgb A1con 02-01-2023 Glucose [Mass/Vol] 114 mg/dL Normal 68-114 [facility] Comment on above: Result Comment: Math ematical Calc approx. The mean gluc equivalency of A1c Performed By: #### H BA1C #### [address] [address] Hgb A1c 5.6 % A1c Normal 4.0-5.6 [facility] Comment on above: Result Comment: Refe rence Range: 4.0 - 5.6 % Normal 5.7 - 6.4 % Pre-Diabetes > 6.5 % Diabetes Performed By: #### H BA1C #### [address] [address] Inpatient Clinical Summaryon 02-01-2023 Inpatient Clinical Summary [address] [address] Clinical Summary Person Information Name: Omer Santos Age: 72 Years : 1950 Sex: Male PCP: Ruben Luo MD Marital Status: Single Phone: PCP: [phone] Race: White Ethnicity: Not or Language: Kosovan Visit Id: Visit Reason: Speciality: Acuity: Enc Type: Observation Med Service: Surgery Arrival: 01/31/2023 08:47:46 Discharge: Dispo Type: Address: [address] [place] [id number] Diagnosis: Discharged To: Home Treatments: Devices/Equipment: Professional [...] range between ( 27.2 and 40.8 ) Jay Auto: 2.1 % -- Normal range between [...] range between ( 41.0 and 53.0 ) Jay Absolute: 0.2 x10 MCH: 30.2 pg -- [...] North Ass (more content not included)... Normal [facility] Magnesiumon 02-01-2023 Magnesium [Mass/Vol] 1.7 mg/dL Normal 1.7-2.4 [facility] Comment on above: Performed By: #### . Manual Diff #### [facility] [address] [place] [address] Orthopedic Progress Noteon 1 Orthopedic Progress Note [...] BP at pre-op baseline) Electronically signed by Udo-Gabe TURPIN, Gabe Mendoza 02/01/23 07:03 EDT Normal [facility] POC Glucose Randomon 023 Glucose [Mass/Vol] 281 mg/dL High 70-99 [facility] Comment on above: Performed By: #### . Manual Diff #### [address] [address] Glucose [Mass/Vol] 352 mg/dL High 70-99 [facility] Comment on above: Performed By: #### C [id number] #### [address] [address] Phosphoruson 02-01-2023 Phosphate [Mass/Vol] 4.8 mg/dL High 2.5-4.6 [facility] Comment on above: Performed By: #### . Manual Diff #### [address] [address] Potassiumon 02-01-2023 Potassium [Moles/Vol] 5.6 mmol/L High 3.4-4.8 [facility] Comment on above: Performed By: #### C [id number] #### [address] [address] .eGFRon 01-31-2023 Estimated GFR 26 mL/min/1.73m? Low >=60 [facility] Comment on above: Order Comment: Order added by Discern rule Result Comment: [facility] Laboratories have implemented the eGFR calculation [...] years Performed By: #### E GFR #### [address] [address] Basic Metabolic Profileon Anion gap [Moles/Vol] 14 mmol/L Normal 7-17 [facility] Comment on above: Performed By: #### . Manual Diff #### [address] [address] Calcium [Mass/Vol] 9.0 mg/dL Normal 8.5-10.3 [facility] Comment on above: Performed By: #### . Manual Diff #### [address] [address] Chloride [Moles/Vol] 111 mmol/L High 98-110 [facility] Comment on above: Performed By: #### . Manual Diff #### [address] [address] CO2 [Moles/Vol] 21 mmol/L Low 22-32 [facility] Comment on above: Performed By: #### . Manual Diff #### [address] [address] Creatinine [Mass/Vol] 2.56 mg/dL High 0.61-1.24 [facility] Comment on above: Performed By: #### . Manual Diff #### [address] [address] Glucose [Mass/Vol] 154 mg/dL High 70-99 [facility] Comment on above: Performed By: #### . Manual Diff #### [address] [address] Potassium [Moles/Vol] 5.7 mmol/L High 3.4-4.8 [facility] Comment on above: Performed By: #### . Manual Diff #### [address] [address] Sodium [Moles/Vol] 140 mmol/L Normal 133-142 [facility] Comment on above: Performed By: #### . Manual Diff #### [address] [address] Urea nitrogen [Mass/Vol] 67 mg/dL High 8-26 [facility] Comment on above: Performed By: #### . Manual Diff #### [address] [address] Urea nitrogen/Creatinine [Mass ratio] 26.2 mg/mg High 10.0-20.0 [facility] Comment on above: Performed By: #### . 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 Gabe Harris Date of [...] (Cr 2.5, no baseline labs available, Nephrology [facility]) HTN, BP stable Anemia of chronic disease/Iron [...] GFR 20s . Followed by Nephrology at [facility] in [place]. Prior history of hyperkalemia, on low K/renal [...] Oral, BID (more content not included)... Normal [facility] XR Spine Cervical 2 or 3 Vie [...] Electronically Signed in Other Vendor System) Normal [facility] MRSA, DNA, Nasalon MRSA, DNA, Nasal POSITIVE: MRSA DNA detected by nucleic acid amplification. Abnormal NEG [facility] Comment on above: Result Comment: Results should be used as an adjunct to nosocomial control efforts to identify patients needing enhanced precautions. The test is not intended to identify patients with staphylococcal infections. Results should not be used to guide or monitor treatment for MRSA infections. Performed By: #### B MP, PT, PTT, CBC #### [facility] [address] [place] [address] Sales Advisory Manager: Dave Dawn MD #### GLYHGB #### [address] [address] Sales Advisory Manager: Faustino Patel MD #### MRSANO #### [address] [address] Sales Advisory Manager: Faustino Patel MD [address] [place], [place] [id number] Sales Advisory Manager: Dave Dawn MD APTTon 01-11-2023 aPTT Coag (Bld) [Time] 29.2 s Normal 26.8-34.8 [facility] Comment on above: Result Comment: IV Heparin Therapy Range: 62.0-94.0 Performed By: #### B MP, PT, PTT, CBC #### [address] [place], [place] [id number] Sales Advisory Manager: Dave Dawn MD #### GLYHGB #### [address] [address] Sales Advisory Manager: Faustino Patel MD #### MRSANO #### [address] [address] Sales Advisory Manager: Faustino Patel MD [address] [place] [id number] Sales Advisory Manager: Dave Dawn MD Basic Metabolic Profon 01-11 Anion gap [Moles/Vol] 11 mmol/L Normal 9-17 [facility] Comment on above: Performed By: #### B MP, PT, PTT, CBC #### [address] [place], [place] [id number] Sales Advisory Manager: Dave Dawn MD #### GLYHGB #### [address] [address] Sales Advisory Manager: Faustino Patel MD #### MRSANO #### [address] [address] Sales Advisory Manager: Faustino Patel MD [facility] [address] [place] [address] Dr. [place], [place] [phone] Sales Advisory Manager: Dave Dawn MD BUN/CRE Ratio 23 High 9-20 [facility] Comment on above: Performed By: #### B MP, PT, PTT, CBC #### [facility] [address] [place], [place] [phone] Sales Advisory Manager: Dave Dawn MD #### GLYHGB #### [address] [address] Sales Advisory Manager: Faustino Patel MD #### MRSANO #### [address] [address] Sales Advisory Manager: Faustino Patel MD [address] [place], [place] 9508883 Sales Advisory Manager: Dave Dawn MD Calcium [Mass/Vol] 9.3 mg/dL Normal 8.6-10.4 [facility] Comment on above: Performed By: #### B MP, PT, PTT, CBC #### [address] [place], [place] [phone] Sales Advisory Manager: Dave Dawn MD #### GLYHGB #### [address] [address] Sales Advisory Manager: Faustino Patel MD #### MRSANO #### [address] [address] Sales Advisory Manager: Faustino Patel MD [facility] [address] [place] [address] Dr. [place], [place] [phone] Sales Advisory Manager: Dave Dawn MD Chloride [Moles/Vol] 107 mmol/L Normal 98-[address] [facility] Comment on above: Performed By: #### B MP, PT, PTT, CBC #### [address] [place], [place] [phone] Sales Advisory Manager: Dave Dawn MD #### GLYHGB #### [facility] [address] [place] [address] Sales Advisory Manager: Faustino Patel MD #### MRSANO #### [facility] [address] [place] [address] Sales Advisory Manager: Faustino Patel MD [address] [place] [address] Sales Advisory Manager: Dave Dawn MD CO2 [Moles/Vol] 24 mmol/L Normal 20-31 [facility] Comment on above: Performed By: #### B MP, PT, PTT, CBC #### [address] [place] [address] Sales Advisory Manager: Dave Dawn MD #### GLYHGB #### [address] [address] Sales Advisory Manager: Faustino Patel MD #### MRSANO #### [facility] [address] [place] [address] Sales Advisory Manager: Faustino Patel MD [address] [place] [address] Sales Advisory Manager: Dave Dawn MD Creatinine [Mass/Vol] 3.3 mg/dL High 0.7-1.2 [facility] Comment on above: Performed By: #### B MP, PT, PTT, CBC #### [address] [place] [address] Sales Advisory Manager: Dave Dawn MD #### GLYHGB #### [facility] [address] [place] [address] Sales Advisory Manager: Faustino Patel MD #### MRSANO #### [facility] [address] [place] [address] Sales Advisory Manager: Faustino Patel MD [address] [place], [place] [phone] Sales Advisory Manager: Dave Dawn MD GFR/1.73 sq M.predicted among non-blacks MDRD (S/P/Bld) [Vol rate/Area] 19 mL/min/{1.73_m2} Low >60 [facility] Comment on above: Result Comment: These [...] #### B MP, PT, PTT, CBC #### [address] [place], [place] [phone] Sales Advisory Manager: Dave Dawn MD #### GLYHGB #### [address] [address] Sales Advisory Manager: Faustino Patel MD #### MRSANO #### [address] [address] Sales Advisory Manager: Faustino Patel MD [address] [place] [address] Sales Advisory Manager: Dave Dawn MD Glucose [Mass/Vol] 61 mg/dL Low 70-99 [facility] Comment on above: Performed By: #### B MP, PT, PTT, CBC #### [address] [place], [place] 8491183 Sales Advisory Manager: Dave Dawn MD #### GLYHGB #### [facility] [address] [place] [address] Sales Advisory Manager: Faustino Patel MD #### MRSANO #### [address] [address] Sales Advisory Manager: Faustino Patel MD [address] [place], [place] 0481983 Sales Advisory Manager: Dave Dawn MD Potassium [Moles/Vol] 4.9 mmol/L Normal 3.7-5.3 [facility] Comment on above: Performed By: #### B MP, PT, PTT, CBC #### [address] [place], [place] [phone] Sales Advisory Manager: Dave Dawn MD #### GLYHGB #### [address] [address] Sales Advisory Manager: Faustino Patel MD #### MRSANO #### [address] [address] Sales Advisory Manager: Faustino Patel MD [address] [place], [place] [phone] Sales Advisory Manager: Dave Dawn MD Sodium [Moles/Vol] 142 mmol/L Normal 135-144 [facility] Comment on above: Performed By: #### B MP, PT, PTT, CBC #### [address] [place] [address] Sales Advisory Manager: Dave Dawn MD #### GLYHGB #### [address] [address] Sales Advisory Manager: Faustino Patel MD #### MRSANO #### [address] [address] Sales Advisory Manager: Faustino Patel MD [address] [place], [place] [phone] Sales Advisory Manager: Dave Dawn MD Urea nitrogen [Mass/Vol] 75 mg/dL High 8-23 [facility] Comment on above: Performed By: #### B MP, PT, PTT, CBC #### [address] [place] [address] Sales Advisory Manager: Dave Dawn MD #### GLYHGB #### [address] [address] Sales Advisory Manager: Faustino Patel MD #### MRSANO #### [facility] [address] [place] [address] Sales Advisory Manager: Faustino Patel MD [address] [place] [address] Sales Advisory Manager: Dave Dawn MD CBCon 01-11-2023 Erythrocyte distribution width (RBC) [Ratio] 13.3 % Normal 11.8-14.4 [facility] Comment on above: Performed By: #### B MP, PT, PTT, CBC #### [address] [place] [address] Sales Advisory Manager: Dave Dawn MD #### GLYHGB #### [address] [address] Sales Advisory Manager: Faustino Patel MD #### MRSANO #### [address] [address] Sales Advisory Manager: Faustino Patel MD [address] [place], [place] 6646083 Sales Advisory Manager: Dave Dawn MD Hematocrit (Bld) [Volume fraction] 28.9 % Low 40.7-50.3 [facility] Comment on above: Performed By: #### B MP, PT, PTT, CBC #### [address] [place], [place] 3849083 Sales Advisory Manager: Dave Dawn MD #### GLYHGB #### [address] [address] Sales Advisory Manager: Faustino Patel MD #### MRSANO #### [address] [place] [address] Sales Advisory Manager: Faustino Patel MD [address] [place], [place] [phone] Sales Advisory Manager: Dave Dawn MD Hemoglobin (Bld) [Mass/Vol] 9.6 g/dL Low 13.0-17.0 [facility] Comment on above: Performed By: #### B MP, PT, PTT, CBC #### [address] [place], [place] [phone] Sales Advisory Manager: Dave Dawn MD #### GLYHGB #### [address] [address] Sales Advisory Manager: Faustino Patel MD #### MRSANO #### [address] [address] Sales Advisory Manager: Faustino Patel MD [address] [place] [phone] Sales Advisory Manager: Dave Dawn MD MCH (RBC) [Entitic mass] 30.0 pg Normal 25.2-33.5 [facility] Comment on above: Performed By: #### B MP, PT, PTT, CBC #### [address] [place], [place] 1146583 Sales Advisory Manager: Dave Dawn MD #### GLYHGB #### [address] [address] Sales Advisory Manager: Faustino Patel MD #### MRSANO #### [address] [address] Sales Advisory Manager: Faustino Patel MD [address] [place], [place] [phone] Sales Advisory Manager: Dave Dawn MD MCHC (RBC) [Mass/Vol] 33.2 g/dL Normal 28.4-34.8 [facility] Comment on above: Performed By: #### B MP, PT, PTT, CBC #### [address] [place] [address] Sales Advisory Manager: Dave Dawn MD #### GLYHGB #### [address] [address] Sales Advisory Manager: Faustino Patel MD #### MRSANO #### [address] [address] Sales Advisory Manager: Faustino Patel MD [address] [place] [phone] Sales Advisory Manager: Dave Dawn MD MCV (RBC) [Entitic vol] 90.3 fL Normal 82.6-102.9 [facility] Comment on above: Performed By: #### B MP, PT, PTT, CBC #### [address] [place] [phone] Sales Advisory Manager: Dave Dawn MD #### GLYHGB #### [address] [address] Sales Advisory Manager: Faustino Patel MD #### MRSANO #### [address] [address] Sales Advisory Manager: Faustino Patel MD [address] [place] [address] Sales Advisory Manager: Dave Dawn MD NRBC Automated 0.0 per 100 WBC Normal 0.0 [facility] Comment on above: Performed By: #### B MP, PT, PTT, CBC #### [address] [place] [address] Sales Advisory Manager: Dave Dawn MD #### GLYHGB #### [address] [address] Sales Advisory Manager: Faustino Patel MD #### MRSANO #### [facility] [address] [place] [address] Sales Advisory Manager: Faustino Patel MD [address] [place] [address] Sales Advisory Manager: Dave Dawn MD Platelet mean volume (Bld) [Entitic vol] 8.6 fL Normal 8.1-13.5 [facility] Comment on above: Performed By: #### B MP, PT, PTT, CBC #### [address] [place] [address] Sales Advisory Manager: Dave Dawn MD #### GLYHGB #### [address] [address] Sales Advisory Manager: Faustino Patel MD #### MRSANO #### [address] [address] Sales Advisory Manager: Faustino Patel MD [address] [place] [address] Sales Advisory Manager: Dave Dawn MD Platelets (Bld) [#/Vol] 191 10*3/uL Normal 138-453 [facility] Comment on above: Performed By: #### B MP, PT, PTT, CBC #### [address] [place] [address] Sales Advisory Manager: Dave Dawn MD #### GLYHGB #### [address] [address] Sales Advisory Manager: Faustino Patel MD #### MRSANO #### [address] [address] Sales Advisory Manager: Faustino Patel MD [address] [place] [address] Sales Advisory Manager: Dave Dawn MD RBC (Bld) [#/Vol] 3.20 10*6/uL Low 4.21-5.77 [facility] Comment on above: Performed By: #### B MP, PT, PTT, CBC #### [address] [place] [address] Sales Advisory Manager: Dave Dawn MD #### GLYHGB #### [address] [address] Sales Advisory Manager: Faustino Patel MD #### MRSANO #### [address] [address] Sales Advisory Manager: Faustino Patel MD [address] [place] [address] Sales Advisory Manager: Dave Dawn MD WBC (Bld) [#/Vol] 7.4 10*3/uL Normal 3.5-11.3 [facility] Comment on above: Performed By: #### B MP, PT, PTT, CBC #### [address] [place] [address] Sales Advisory Manager: Dave Dawn MD #### GLYHGB #### [address] [address] Sales Advisory Manager: Faustino Patel MD #### MRSANO #### [address] [address] Sales Advisory Manager: Faustino Patel MD [address] [place] [address] Sales Advisory Manager: Dave Dawn MD Hemoglobin A1Con 01-11-2023 Glucose [Mass/Vol] 80 mg/dL Normal [facility] Comment on above: Result Comment: The ADA and AACC recommend providing the estimated average glucose result to permit better patient understanding of their HBA1c result. Performed By: #### B MP, PT, PTT, CBC #### [address] [place] [address] Sales Advisory Manager: Dave Dawn MD #### GLYHGB #### [facility] [address] [place] [address] Sales Advisory Manager: Faustino Patel MD #### MRSANO #### [facility] [address] [place] [address] Sales Advisory Manager: Faustino Patel MD [address] [place] [address] Sales Advisory Manager: Dave Dawn MD HbA1c (Bld) [Mass fraction] 4.4 % Normal 4.0-6.0 [facility] Comment on above: Performed By: #### B MP, PT, PTT, CBC #### [address] [place] [address] Sales Advisory Manager: Dave Dawn MD #### GLYHGB #### [address] [address] Sales Advisory Manager: Faustino Patel MD #### MRSANO #### [address] [address] Sales Advisory Manager: Faustino Patel MD [address] [place] [address] Sales Advisory Manager: Dave Dawn MD MRSA, DNA, Nasalon 3 Specimen Description .NASAL SWAB Normal [facility] Comment on above: Performed By: #### B MP, PT, PTT, CBC #### [address] [place] [address] Sales Advisory Manager: Dave Dawn MD #### GLYHGB #### [address] [address] Sales Advisory Manager: Faustino Patel MD #### MRSANO #### [address] [address] Sales Advisory Manager: Faustino Patel MD [facility] [address] [place] [address] Dr. [place], [place] [phone] Sales Advisory Manager: Dave Dawn MD PTon 01-11-2023 INR Coag (PPP) [Relative time] 1.2 {INR} Normal [facility] Comment on above: Result Comment: Therapeutic Range: Moderate Anticoagulant Intensity: INR = 2.0-3.0 High Anticoagulant Intensity: INR = 2.5-3.5 Performed By: #### B MP, PT, PTT, CBC #### [facility] [address] [place] [address] Dr. [place], [place] 0193083 Sales Advisory Manager: Dave Dawn MD #### GLYHGB #### [address] [address] Sales Advisory Manager: Faustino Patel MD #### MRSANO #### [address] [address] Sales Advisory Manager: Faustino Patel MD [address] [place] [phone] Sales Advisory Manager: Dave Dawn MD PT Coag (PPP) [Time] 15.2 s High 11.9-14.[address] [facility] Comment on above: Performed By: #### B MP, PT, PTT, CBC #### [address] [place], [place] 3208583 Sales Advisory Manager: Dave Dawn MD #### GLYHGB #### [address] [address] Sales Advisory Manager: Faustino Patel MD #### MRSANO #### [address] [address] Sales Advisory Manager: Faustino Patel MD [facility] [address] [place] [address] Dr. [place], [place] [phone] Sales Advisory Manager: Dave Dawn MD XR CHEST (2 VW)on [...] Veronica MD - Fax Final result Normal [facility] Provider Letteron 01-09-2023 Provider Letter Ruben Luo MD [address] [place] [address] Re: Omer Santos Date of Visit: 01/08/2023 [...] [facility] [place] [address] Tel.: [phone] Email: [email or web address] Providers: The following document(s) were included in the letter: January 08, 2023 15:00:00 EDT - (01/08/2023) ENT Office Visit Note Normal [facility] Otolaryngology Office/Clinic Noteon 01-08-2023 Otolaryngology Office/Clinic Note [...] No hoarseness appreciated. Procedure: Flexible fiberoptic laryngoscopy (29467) Preoperative diagnosis: History of right CEA, evaluate [...] separately billable services. New patient level 3 [id number] added for flexible nasolaryngoscopy Physician Comments This [...] 40 mg (more content not included)... Normal [facility] CT CERVICAL SPINE WO CONTRAS Ton 12-29-2022 [...] Pascale Albarado MD 12/29/22 Final result Normal [facility] US carotid doppler BIon 05- US carotid doppler BI [facility] [place] [address] [place], [place] [id number] Ultrasound Report Signed Patient: Omer Santos MR#: [id number] 7 : 1950 Acct:[id number] Age/Sex: 72 / M ADM Date: 08/20/22 Loc: [facility] Room: Type: [facility] Attending Dr: Ney Roman MD [...] Ney Roman MD08/22/2022 3:32 PM Dictation Location: [place] [address] Tech: Laura Carney Transcribed By: [facility] 08/22/221531 Dictated By: Ney Roman MD 08/22/221530 Signed By: 08/22/221531 [facility] F[facility]on 08-10-2022 Ferritin [Mass/Vol] 214.0 ng/mL Normal 26.0-388.0 [facility] Comment on above: Performed By: #### P THINT #### [facility] [address] [place] [address] Dr. Sarah Sánchez HEMOGRAM AND PLATELon 2022 Hematocrit (Bld) [Volume fraction] 24.3 % Critically low 42.0-54.0 [facility] Comment on above: Performed By: #### C VDTBH #### [facility] [address] [place] [address] Dr. Sarah Sánchez Hemoglobin (Bld) [Mass/Vol] 8.0 g/dL Critically low 14.0-18.0 [facility] Comment on above: Performed By: #### C VDTBH #### [facility] [address] [place] [address] Dr. Sarah Sánchez MCH (RBC) [Entitic mass] 29.7 pg Normal 25.9-34.0 [facility] Comment on above: Performed By: #### C VDTBH #### [facility] [address] [place] [address] Dr. Sarah Sánchez MCHC (RBC) [Mass/Vol] 32.9 g/dL Normal 29.9-35.2 [facility] Comment on above: Performed By: #### C VDTBH #### [facility] [address] [place] [address] Dr. Sarah Sánchez MCV (RBC) [Entitic vol] 90.3 fL Normal 80.0-94.0 [facility] Comment on above: Performed By: #### C VDTBH #### [facility] [address] [place] [address] [address] Sarah Sánchez PLT 215 103/ul Normal 150-450 [facility] Comment on above: Performed By: #### C VDTBH #### [facility] [address] [place] [address] [address] Sarah Sánchez RBC 2.69 106/ul Critically low 4.70-6.10 [facility] Comment on above: Performed By: #### C VDTBH #### [facility] [address] [place] [address] [address] Sarah Sánchez WBC 7.3 103/ul Normal 4.0-11.0 [facility] Comment on above: Performed By: #### C VDTBH #### [facility] [address] [place] [address] [address] Sarah Sánchez IRON AND TIBCon 08-10-2022 % SATURATION 23.5 % Normal [facility] Comment on above: Performed By: #### P THINT #### [facility] [address] [place] [address] [address] Sarah Sánchez Iron [Mass/Vol] 54.0 ug/dL Critically low 65.0-175.0 [facility] Comment on above: Performed By: #### P THINT #### [facility] [address] [place] [address] [address] Sarah Sánchez TIBC DIRECT 230.0 ug/dL Critically low 250.0-450.0 [facility] Comment on above: Performed By: #### P THINT #### [facility] [address] [place] [address] [address] Sarah Sánchez MAGNESIUMon 08-10-2022 Magnesium [Mass/Vol] 1.7 mg/dL Critically low 1.8-2.4 [facility] Comment on above: Performed By: #### C VDTBH #### [facility] [address] [place] [address] [address] Sarah Sánchez RENAL FUNCTION PANELon 08-10 Albumin [Mass/Vol] 2.7 g/dL Critically low 3.4-5.0 [facility] Comment on above: Performed By: #### C VDTBH #### [facility] [address] [place] [address] Dr. Sarah Sánchez Calcium [Mass/Vol] 8.3 mg/dL Critically low 8.5-10.1 [facility] Comment on above: Performed By: #### C VDTBH #### [facility] [address] [place] [address] Dr. Sarah Sánchez Chloride [Moles/Vol] 106 mmol/L Normal 98-107 [facility] Comment on above: Performed By: #### C VDTBH #### [facility] [address] [place] [address] Dr. Sarah Sánchez CO2 [Moles/Vol] 29.6 mmol/L Normal 21.0-32.0 [facility] Comment on above: Performed By: #### C VDTBH #### [facility] [address] [place] [address] Dr. Sarah Sánchez Creatinine [Mass/Vol] 2.41 mg/dL Critically high 0.70-1.30 [facility] Comment on above: Performed By: #### C VDTBH #### [facility] [address] [place] [address] Dr. Sarah Sánchez EGFR-AF GUYANESE 32 mL/min/1.73m2 Critically low >=60 [facility] Comment on above: Performed By: #### C VDTBH #### [facility] [address] [place] [address] Dr. Sarah Sánchez EGFR-NON AF GUYANESE 27 mL/min/1.73m2 Critically low >=60 [facility] Comment on above: Performed By: #### C VDTBH #### [facility] [address] [place] [address] Dr. Sarah Sánchez Glucose [Mass/Vol] 111 mg/dL Critically high 74-106 [facility] Comment on above: Performed By: #### C VDTBH #### [facility] [address] [place] [address] Dr. Sarah Sánchez Phosphate [Mass/Vol] 4.6 mg/dL Normal 2.6-4.7 [facility] Comment on above: Performed By: #### C VDTBH #### [facility] [address] [place] [address] Dr. Sarah Sánchez Potassium [Moles/Vol] 5.2 mmol/L Critically high 3.5-5.1 [facility] Comment on above: Performed By: #### C VDTBH #### [facility] [address] [place] [address] Dr. Sarah Sánchez Sodium [Moles/Vol] 142 mmol/L Normal 136-145 [facility] Comment on above: Performed By: #### C VDTBH #### [facility] [address] [place] [address] Dr. Sarah Sánchez Urea nitrogen [Mass/Vol] 31.0 mg/dL Critically high 7.0-18.0 [facility] Comment on above: Performed By: #### C VDTBH #### [facility] [address] [place] [address] Dr. Sarah Sánchez CBC AUTO DIFFon 08-08-2022 BASO # 0.1 103/ul Normal 0.0-0.1 [facility] Comment on above: Performed By: #### H BSANS #### [facility] [address] [place] [address] Dr. Sarah Sánchez Basophils/100 WBC (Bld) 0.6 % Normal 0.2-2.0 [facility] Comment on above: Performed By: #### H BSANS #### [facility] [address] [place] [address] Dr. Sarah Sánchez EO # 0.5 103/ul Normal 0.0-0.7 [facility] Comment on above: Performed By: #### H BSANS #### [facility] [address] [place] [address] Dr. Sarah Sánchez Eosinophils/100 WBC (Bld) 6.1 % Normal 0.9-7.0 [facility] Comment on above: Performed By: #### H BSANS #### [facility] [address] [place] [address] [address] Sarah Sánchez Erythrocyte distribution width (RBC) [Ratio] 14.0 % Normal 11.0-15.0 [facility] Comment on above: Performed By: #### H BSANS #### [facility] [address] [place] [address] Dr. Sarah Sánchez Hematocrit (Bld) [Volume fraction] 23.9 % Critically low 42.0-54.0 [facility] Comment on above: Performed By: #### H BSANS #### [facility] [address] [place] [address] Dr. Sarah Sánchez Hemoglobin (Bld) [Mass/Vol] 7.9 g/dL Critically low 14.0-18.0 [facility] Comment on above: Performed By: #### H BSANS #### [facility] [address] [place] [address] Dr. Sarah Sánchez IG # 0.08 10e3/ul Critically high 0.00-0.03 [facility] Comment on above: Performed By: #### H BSANS #### [facility] [address] [place] [address] Dr. Sarah Sánchez IG % 0.9 % Critically high 0.0-0.5 [facility] Comment on above: Performed By: #### H BSANS #### [facility] [facility] [address] [place] [address] Dr. Sarah Sánchez LYMPH # 1.1 103/ul Critically low 1.2-3.8 [facility] Comment on above: Performed By: #### H BSANS #### [facility] [address] [place] [address] Dr. Sarah Sánchez Lymphocytes/100 WBC (Bld) 11.9 % Critically low 20.5-60.0 [facility] Comment on above: Performed By: #### H BSANS #### [facility] [address] [place] [address] Dr. Sarah Sánchez MANUAL DIFF REQ NO Normal [facility] Comment on above: Performed By: #### H BSANS #### [facility] [address] [address] [address] Sarah Sánchez MCH (RBC) [Entitic mass] 30.4 pg Normal 25.9-34.0 [facility] Comment on above: Performed By: #### H BSANS #### [facility] [address] [place] [address] Dr. Sarah Sánchez MCHC (RBC) [Mass/Vol] 33.1 g/dL Normal 29.9-35.2 [facility] Comment on above: Performed By: #### H BSANS #### [facility] [address] [place] [address] Dr. Sarah Sánchez MCV (RBC) [Entitic vol] 91.9 fL Normal 80.0-94.0 [facility] Comment on above: Performed By: #### H BSANS #### [facility] [address] [place] [address] Dr. Sarah Sánchez MONO # 0.5 103/ul Normal 0.3-0.8 [facility] Comment on above: Performed By: #### H BSANS #### [facility] [address] [place] [address] Dr. Sarah Sánchez Monocytes/100 WBC (Bld) 5.5 % Normal 1.7-12.0 [facility] Comment on above: Performed By: #### H BSANS #### [facility] [address] [place] [address] Dr. Sarah Sánchez NEUT # 6.6 103/ul Critically high 1.4-6.5 [facility] Comment on above: Performed By: #### H BSANS #### [facility] [address] [place] [address] Dr. Sarah Sánchez Neutrophils/100 WBC (Bld) 75.0 % Normal 43.0-75.0 [facility] Comment on above: Performed By: #### H BSANS #### [facility] [address] [place] [address] Dr. Sarah Sánchez Platelet mean volume (Bld) [Entitic vol] 8.5 fL Critically low 9.5-13.5 [facility] Comment on above: Performed By: #### H BSANS #### [facility] [address] [place], [place] [address] Dr. Sarah Sánchez PLT 245 103/ul Normal 150-450 [facility] Comment on above: Performed By: #### H BSANS #### [facility] [address] [place], [place] [address] Dr. Sarah Sánchez RBC 2.60 106/ul Critically low 4.70-6.10 [facility] Comment on above: Performed By: #### H BSANS #### [facility] [address] [place], [place] [address] Dr. Sarah Sánchez WBC 8.8 103/ul Normal 4.0-11.0 [facility] Comment on above: Performed By: #### H BSANS #### [facility] [address] [place], [place] [address] Dr. Sarah Sánchez ANION GAPon 07-26-2022 Anion gap [Moles/Vol] 13.0 mmol/L Normal 8.0-16.0 [facility] Comment on above: Result Comment: ANIO N GAP = Sodium -(Chloride + CO2) Performed By: #### P OCGL #### [facility] [address] [place] [address] Anion Gapon 07-26-2022 Anion gap [Moles/Vol] 13.0 mmol/L 8.0 - 16.0 meq/L [facility] Comment on above: ANION GAP = Sodium - (Chloride + CO2) Performed at [facility] [address] [place] [address] BASIC METABOL PANELon 2022 Calcium [Mass/Vol] 7.7 mg/dL Low 8.5-10.5 [facility] Comment on above: Performed By: #### P OCGL #### [facility] [address] [place] [address] Chloride [Moles/Vol] 102 mmol/L Normal 98-111 [facility] Comment on above: Performed By: #### P OCGL #### [facility] [address] [place] [address] CO2 [Moles/Vol] 19 mmol/L Low 23-33 [facility] Comment on above: Performed By: #### P OCGL #### [facility] [address] [place] [address] Creatinine [Mass/Vol] 2.4 mg/dL High 0.4-1.2 [facility] Comment on above: Performed By: #### P OCGL #### [facility] [address] [place] [address] Glucose [Mass/Vol] 205 mg/dL High 70-108 [facility] Comment on above: Performed By: #### P OCGL #### [facility] [address] [place] [address] Potassium [Moles/Vol] 4.8 mmol/L Normal 3.5-5.2 [facility] Comment on above: Performed By: #### P OCGL #### [facility] [address] [place] [address] Sodium [Moles/Vol] 134 mmol/L Low 135-145 [facility] Comment on above: Performed By: #### P OCGL #### [facility] [address] [place] [address] Urea nitrogen [Mass/Vol] 65 mg/dL High 7-22 [facility] Comment on above: Performed By: #### P OCGL #### [facility] [address] [place] [address] Basic metabolic 2000 panelon 07-26-2022 Calcium [Mass/Vol] 7.7 mg/dL Low 8.5 - 10. 5 mg/dL [facility] Comment on above: Performed at [facility] [address] [place] [address] Chloride [Moles/Vol] 102 mmol/L 98 - 11 1 meq/L [facility] CO2 [Moles/Vol] 19 mmol/L Low 23 - 33 meq/L [facility] Creatinine [Mass/Vol] 2.4 mg/dL High 0.4 - 1.2 mg/dL [facility] Glucose [Mass/Vol] 205 mg/dL High 70 - 108 mg/dL [facility] Potassium [Moles/Vol] 4.8 mmol/L 3.5 - 5.2 meq/L [facility] Sodium [Moles/Vol] 134 mmol/L Low 135 - 145 meq/L [facility] Urea nitrogen [Mass/Vol] 65 mg/dL High 7 - 22 mg/dL [facility] CBCon 07-26-2022 Erythrocyte distribution width (RBC) [Entitic vol] 46.2 fL High 35.0 - 45.0 fL [facility] Erythrocyte distribution width (RBC) [Ratio] 13.6 % 11.5 - 14.5 % [facility] Hematocrit (Bld) [Volume fraction] 22.9 % Low 42.0 - 52.0 % [facility] Hemoglobin (Bld) [Mass/Vol] 7.4 g/dL Low [facility] Interpretation and review of laboratory results Abnormal [facility] MCH (RBC) [Entitic mass] 30.0 pg 26.0 - 33.0 pg [facility] MCHC (RBC) [Mass/Vol] 32.3 g/dL [facility] MCV (RBC) [Entitic vol] 92.7 fL 80.0 - 94.0 fL [facility] Platelet mean volume (Bld) [Entitic vol] 9.0 fL Low 9.4 - 12.4 fL [facility] Comment on above: Performed at [facility] [address] [place] [address] Platelets (Bld) [#/Vol] 147 10*3/uL [facility] RBC (Bld) [#/Vol] 2.47 10*6/uL Low [facility] WBC (Bld) [#/Vol] 4.3 10*3/uL Low [facility] CBC NO DIFFERENTIALon 2022 Erythrocyte distribution width (RBC) [Ratio] 13.6 % Normal 11.5-14.5 [facility] Comment on above: Performed By: #### P OCGL #### [facility] [address] [place] [address] Hematocrit (Bld) [Volume fraction] 22.9 % Low 42.0-52.0 [facility] Comment on above: Performed By: #### P OCGL #### [address] [address] Hemoglobin (Bld) [Mass/Vol] 7.4 g/dL Low 14.0-18.0 [facility] Comment on above: Performed By: #### P OCGL #### [address] [address] MCH (RBC) [Entitic mass] 30.0 pg Normal 26.0-33.0 [facility] Comment on above: Performed By: #### P OCGL #### [address] [address] MCHC (RBC) [Mass/Vol] 32.3 g/dL Normal 32.2-35.5 [facility] Comment on above: Performed By: #### P OCGL #### [address] [address] MCV (RBC) [Entitic vol] 92.7 fL Normal 80.0-94.0 [facility] Comment on above: Performed By: #### P OCGL #### [address] [address] PLATELET 147 thou/mm3 Normal 130-400 [facility] Comment on above: Performed By: #### P OCGL #### [address] [address] Platelet mean volume (Bld) [Entitic vol] 9.0 fL Low 9.4-12.4 [facility] Comment on above: Performed By: #### P OCGL #### [address] [address] RBC 2.47 mill/mm3 Low 4.70-6.10 [facility] Comment on above: Performed By: #### P OCGL #### [address] [address] RDW-SD 46.2 fL High 35.0-45.0 [facility] Comment on above: Performed By: #### P OCGL #### [address] [address] WBC 4.3 thou/mm3 Low 4.8-10.8 [facility] Comment on above: Performed By: #### P OCGL #### [address] [address] GFR, ESTIMATEDon 07-26-2022 GFR/1.73 sq M.predicted MDRD (S/P/Bld) [Vol rate/Area] 28 mL/min/{1.73_m2} Abnormal >60 [facility] Comment on above: Result Comment: Shayla atric [...] secretion. Performed By: #### P OCGL #### [address] [address] GLUCOSE POCon 07-26-2022 Glucose [Mass/Vol] 312 mg/dL High [address] Comment on above: Performed By: #### H -A1C #### [address] [address] Glucose [Mass/Vol] 226 mg/dL High [address] Comment on above: Performed By: #### P OCGL #### [facility] [address] [place] [address] Glucose [Mass/Vol] 230 mg/dL High [address] Comment on above: Performed By: #### P OCGL #### [facility] [address] [place] [address] Glucose [Mass/Vol] 232 mg/dL [address] Comment on above: Performed By: #### P OCGL #### [address] [address] Glucose [Mass/Vol] 334 mg/dL High [address] Comment on above: Performed By: #### P OCGL #### [facility] [address] [place] [address] Glomerular Filtration Rate, Estimatedon 07-26-2022 GFR/1.73 sq M.predicted MDRD (S/P/Bld) [Vol rate/Area] 28 mL/min/{1.73_m2} Abnormal - [facility] [employer] [facility] [email or web address] Comment on above: Pediatric calculator link [...] that affects renal tubular secretion. Performed at [facility] [address] [place] [address] Glucose Auto test strip (Bld ) [Mass/Vol]on 07-26-2022 Glucose [Mass/Vol] 312 mg/dL High 70 - 108 mg/dl [facility] Comment on above: Performed at [facility] [address] [place] [address] Interpretation and review of laboratory results Abnormal [facility] Glucose [Mass/Vol] 226 mg/dL High 70 - 108 mg/dl [email or web address] Comment on above: Performed at [facility] [address] [place] [address] Interpretation and review of laboratory results Abnormal [facility] Glucose [Mass/Vol] 230 mg/dL High 70 - 108 mg/dl [facility] Comment on above: Performed at [facility] [address] [place] [address] Interpretation and review of laboratory results Abnormal [facility] Glucose [Mass/Vol] 232 mg/dL High 70 - 108 mg/dl [facility] Comment on above: Performed at [facility] [address] [place] [address] Interpretation and review of laboratory results Abnormal [facility] No Panel Informationon 07-26 Interpretation and review of laboratory results Abnormal [facility] VL DUP LOWER EXTREMITY VENOU S BILATERALon 07-26-2022 No evidence of deep venous thrombosis in either lower extremity. This report has been created using voice recognition software. It may contain minor errors which are inherent in voice recognition technology. Final report electronically signed by Dr. Jose R Bianchi on 07/26/2022 6:35 PM [facility] Jose R Bianchi MD - 07/26/2022 PROCEDURE: VL DUP LOWER [...] Jose R Bianchi on 07/26/2022 6:35 PM [facility] Work Phone: Radiology Study observation (narrative) [facility] Work Phone: VL DUP LOWER EXTREMITY VENOU S BILATERALOrdered By: Jose R Bianchi on 07-26-2022 [facility] Work Phone: ANION GAPon 07-25-2022 Anion gap [Moles/Vol] 12.0 mmol/L Normal 8.0-16.0 [facility] Comment on above: Result Comment: ANIO N GAP = Sodium -(Chloride + CO2) Performed By: #### P OCGL #### [facility] [address] [place] [address] Anion Gapon 07-25-2022 Anion gap [Moles/Vol] 12.0 mmol/L 8.0 - 16.0 meq/L [facility] Comment on above: ANION GAP = Sodium - (Chloride + CO2) Performed at [facility] [address] [place] [address] BASIC METABOL PANELon 2022 Calcium [Mass/Vol] 7.7 mg/dL Low 8.5-10.5 [facility] Comment on above: Performed By: #### P OCGL #### [facility] [address] [place] [address] Chloride [Moles/Vol] 104 mmol/L Normal 98-111 [facility] Comment on above: Performed By: #### P OCGL #### [facility] [address] [place] [address] CO2 [Moles/Vol] 19 mmol/L Low 23-33 [facility] Comment on above: Performed By: #### P OCGL #### [address] [address] Creatinine [Mass/Vol] 2.5 mg/dL High 0.4-1.2 [facility] Comment on above: Performed By: #### P OCGL #### [facility] [address] [place] [address] Glucose [Mass/Vol] 287 mg/dL High 70-108 [facility] Comment on above: Performed By: #### P OCGL #### [facility] [address] [place] [address] Potassium [Moles/Vol] 5.4 mmol/L High 3.5-5.2 [facility] Comment on above: Performed By: #### P OCGL #### [facility] [address] [place] [address] Sodium [Moles/Vol] 135 mmol/L Normal 135-145 [facility] Comment on above: Performed By: #### P OCGL #### [facility] [address] [place] [address] Urea nitrogen [Mass/Vol] 55 mg/dL High 7-22 [facility] Comment on above: Performed By: #### P OCGL #### [facility] [address] [place] [address] Basic metabolic 2000 panelon 07-25-2022 Calcium [Mass/Vol] 7.7 mg/dL Low 8.5 - 10. 5 mg/dL [facility] Comment on above: Performed at [facility] [address] [place] [address] Chloride [Moles/Vol] 104 mmol/L 98 - 11 1 meq/L [facility] CO2 [Moles/Vol] 19 mmol/L Low 23 - 33 meq/L [facility] Creatinine [Mass/Vol] 2.5 mg/dL High 0.4 - 1.2 mg/dL [facility] Glucose [Mass/Vol] 287 mg/dL High 70 - 108 mg/dL [facility] Potassium [Moles/Vol] 5.4 mmol/L High 3.5 - 5.2 meq/L [facility] Sodium [Moles/Vol] 135 mmol/L 135 - 145 meq/L [facility] Urea nitrogen [Mass/Vol] 55 mg/dL High 7 - 22 mg/dL [facility] CBCon 07-25-2022 Erythrocyte distribution width (RBC) [Entitic vol] 45 fL 35.0 - 45.0 fL [facility] Erythrocyte distribution width (RBC) [Ratio] 13.5 % 11.5 - 14.5 % [facility] Hematocrit (Bld) [Volume fraction] 23.1 % Low 42.0 - 52.0 % [facility] Hemoglobin (Bld) [Mass/Vol] 7.6 g/dL Low [facility] Interpretation and review of laboratory results Abnormal [facility] MCH (RBC) [Entitic mass] 30.2 pg 26.0 - 33.0 pg [facility] MCHC (RBC) [Mass/Vol] 32.9 g/dL [facility] MCV (RBC) [Entitic vol] 91.7 fL 80.0 - 94.0 fL [facility] Platelet mean volume (Bld) [Entitic vol] 9.1 fL Low 9.4 - 12.4 fL [facility] Comment on above: Performed at [facility] [address] [place] [address] Platelets (Bld) [#/Vol] 148 10*3/uL [facility] RBC (Bld) [#/Vol] 2.52 10*6/uL Low [facility] WBC (Bld) [#/Vol] 3.9 10*3/uL Low [facility] CBC NO DIFFERENTIALon 2022 Erythrocyte distribution width (RBC) [Ratio] 13.5 % Normal 11.5-14.5 [facility] Comment on above: Performed By: #### P OCGL #### [place] [address] Hematocrit (Bld) [Volume fraction] 23.1 % Low 42.0-52.0 [facility] Comment on above: Performed By: #### P OCGL #### [place] [id number] Hemoglobin (Bld) [Mass/Vol] 7.6 g/dL Low 14.0-18.0 [facility] Comment on above: Performed By: #### P OCGL #### [address] [address] MCH (RBC) [Entitic mass] 30.2 pg Normal 26.0-33.0 [facility] Comment on above: Performed By: #### P OCGL #### [address] [address] MCHC (RBC) [Mass/Vol] 32.9 g/dL Normal 32.2-35.5 [facility] Comment on above: Performed By: #### P OCGL #### [address] [address] MCV (RBC) [Entitic vol] 91.7 fL Normal 80.0-94.0 [facility] Comment on above: Performed By: #### P OCGL #### [address] [address] PLATELET 148 thou/mm3 Normal 130-400 [facility] Comment on above: Performed By: #### P OCGL #### [address] [address] Platelet mean volume (Bld) [Entitic vol] 9.1 fL Low 9.4-12.4 [facility] Comment on above: Performed By: #### P OCGL #### [facility] [address] [place] [address] RBC 2.52 mill/mm3 Low 4.70-6.10 [facility] Comment on above: Performed By: #### P OCGL #### [address] [address] RDW-SD 45.0 fL Normal 35.0-45.0 [facility] Comment on above: Performed By: #### P OCGL #### [facility] [address] [place] [address] WBC 3.9 thou/mm3 Low 4.8-10.8 [facility] Comment on above: Performed By: #### P OCGL #### [address] [address] GFR, ESTIMATEDon 07-25-2022 GFR/1.73 sq M.predicted MDRD (S/P/Bld) [Vol rate/Area] 26 mL/min/{1.73_m2} Abnormal >60 [facility] Comment on above: Result Comment: Pedi atric [...] secretion. Performed By: #### P OCGL #### [facility] [address] [address] GLUCOSE POCon 07-25-2022 Glucose [Mass/Vol] 342 mg/dL High 70-108 [facility] Comment on above: Performed By: #### P OCGL #### [address] [address] Glucose [Mass/Vol] 318 mg/dL High 70-108 [facility] Comment on above: Performed By: #### P OCGL #### [facility] [address] [address] Glucose [Mass/Vol] 313 mg/dL High 70-108 [facility] Comment on above: Performed By: #### P OCGL #### [facility] [address] [place] [address] Glucose [Mass/Vol] 404 mg/dL High 70-108 [facility] Comment on above: Performed By: #### P OCGL #### [facility] [address] [place] [address] Glucose [Mass/Vol] 295 mg/dL High 70-108 [facility] Comment on above: Performed By: #### P OCGL #### [facility] [address] [place] [address] Glucose [Mass/Vol] 334 mg/dL High [address] [facility] Comment on above: Performed By: #### P OCGL #### [address] [address] Glomerular Filtration Rate, Estimatedon 07-25-2022 GFR/1.73 sq M.predicted MDRD (S/P/Bld) [Vol rate/Area] 26 mL/min/{1.73_m2} Abnormal - PINF [facility] Comment on above: Pediatric calculator [...] that affects renal tubular secretion. Performed at [employer] [address] [address] Glucose Auto test strip (Bld ) [Mass/Vol]on 07-25-2022 Glucose [Mass/Vol] 334 mg/dL High 70 - 108 mg/dl [facility] Comment on above: Performed at [facility] [address] [place] [address] Interpretation and review of laboratory results Abnormal [facility] Glucose [Mass/Vol] 342 mg/dL High 70 - 108 mg/dl [facility] Comment on above: Performed at [facility] [address] [place] [address] Interpretation and review of laboratory results Abnormal [facility] Glucose [Mass/Vol] 318 mg/dL High 70 - 108 mg/dl [facility] Comment on above: Performed at [facility] [address] [place] [address] Interpretation and review of laboratory results Abnormal [facility] Glucose [Mass/Vol] 313 mg/dL High 70 - 108 mg/dl [facility] Comment on above: Performed at [facility] [address] [place] [address] Interpretation and review of laboratory results Abnormal [facility] Glucose [Mass/Vol] 404 mg/dL High 70 - 108 mg/dl [facility] Comment on above: Performed at [facility] [address] [place] [address] Interpretation and review of laboratory results Abnormal [facility] Glucose [Mass/Vol] 295 mg/dL High 70 - 108 mg/dl [facility] Comment on above: Performed at [facility] [address] [place] [address] Interpretation and review of laboratory results Abnormal [facility] Glucose [Mass/Vol] 334 mg/dL High 70 - 108 mg/dl [facility] Comment on above: Performed at [facility] [address] [place] [address] Interpretation and review of laboratory results Abnormal [...] Polanco DO, MD on 07/25/2022 3:57 PM [facility] Lalo Weinstein DO - 07/25/2022 PROCEDURE: XR [...] Polanco DO, MD on 07/25/2022 3:57 PM [employer] Work Phone: Radiology Study observation (narrative) [facility] Phone: XR LUMBAR SPINE (2-3 VIEWS)O rdered By: Lalo Polanco on 07-25-2022 [facility] Phone: ANION GAPon 07-24-2022 Anion gap [Moles/Vol] 12.0 mmol/L Normal 8.0-16.0 [facility] Comment on above: Result Comment: ANIO N GAP = Sodium -(Chloride + CO2) Performed By: #### P OCGL #### [facility] [address] [place] [address] Anion Gapon 07-24-2022 Anion gap [Moles/Vol] 12.0 mmol/L 8.0 - 16.0 meq/L [facility] Comment on above: ANION GAP = Sodium - (Chloride + CO2) Performed at [facility] [address] [place] [address] BASIC METABOL PANELon 2022 Calcium [Mass/Vol] 8.0 mg/dL Low 8.5-10.5 [facility] Comment on above: Performed By: #### C BCND, ANION, EGFR1, BMP #### [employer] [address] [place] [address] Chloride [Moles/Vol] 107 mmol/L Normal 98-111 [facility] Comment on above: Performed By: #### C BCND, ANION, EGFR1, BMP #### [employer] [address] [place] [address] CO2 [Moles/Vol] 18 mmol/L Low 23-33 [facility] Comment on above: Performed By: #### C BCND, ANION, EGFR1, BMP #### [facility] [address] [place] [address] Creatinine [Mass/Vol] 2.8 mg/dL High 0.4-1.2 [facility] Comment on above: Performed By: #### C BCND, ANION, EGFR1, BMP #### [employer] [address] [place] [address] Glucose [Mass/Vol] 188 mg/dL High 70-108 [facility] Comment on above: Performed By: #### C BCND, ANION, EGFR1, BMP #### [employer] [address] [place] [address] Potassium [Moles/Vol] 5.6 mmol/L High 3.5-5.2 [facility] Comment on above: Performed By: #### C BCND, ANION, EGFR1, BMP #### [employer] [address] [place] [address]271 Sodium [Moles/Vol] 137 mmol/L Normal 135-145 [facility] Comment on above: Performed By: #### C BCND, ANION, EGFR1, BMP #### [employer] [address] [place] [address] 87542 Urea nitrogen [Mass/Vol] 41 mg/dL High 7-22 [facility] Comment on above: Performed By: #### C BCND, ANION, EGFR1, BMP #### [employer] [address] [place] [address] 36092 Basic metabolic 2000 panelon 07-24-2022 Calcium [Mass/Vol] 8.0 mg/dL Low 8.5 - 10. 5 mg/dL [facility] Comment on above: Performed at [facility] [address] [place] [address] Chloride [Moles/Vol] 107 mmol/L 98 - 11 1 meq/L [facility] CO2 [Moles/Vol] 18 mmol/L Low 23 - 33 meq/L [facility] Creatinine [Mass/Vol] 2.8 mg/dL High 0.4 - 1.2 mg/dL [facility] Glucose [Mass/Vol] 188 mg/dL High 70 - 108 mg/dL [facility] Potassium [Moles/Vol] 5.6 mmol/L High 3.5 - 5.2 meq/L [facility] Sodium [Moles/Vol] 137 mmol/L 135 - 145 meq/L [facility] Urea nitrogen [Mass/Vol] 41 mg/dL High 7 - 22 mg/dL [facility] CBCon 07-24-2022 Erythrocyte distribution width (RBC) [Entitic vol] 47.8 fL High 35.0 - 45.0 fL [facility] Erythrocyte distribution width (RBC) [Ratio] 13.9 % 11.5 - 14.5 % [facility] Hematocrit (Bld) [Volume fraction] 23.5 % Low 42.0 - 52.0 % [facility] Hemoglobin (Bld) [Mass/Vol] 7.4 g/dL Low [facility] Interpretation and review of laboratory results Abnormal [facility] MCH (RBC) [Entitic mass] 29.7 pg 26.0 - 33.0 pg [facility] MCHC (RBC) [Mass/Vol] 31.5 g/dL Low [facility] MCV (RBC) [Entitic vol] 94.4 fL High 80.0 - 94.0 fL [facility] Platelet mean volume (Bld) [Entitic vol] 8.9 fL Low 9.4 - 12.4 fL [facility] Comment on above: Performed at [facility] [address] [place] [address] Platelets (Bld) [#/Vol] 132 10*3/uL [facility] RBC (Bld) [#/Vol] 2.49 10*6/uL Low [facility] WBC (Bld) [#/Vol] 4.6 10*3/uL Low [facility] CBC NO DIFFERENTIALon 2022 Erythrocyte distribution width (RBC) [Ratio] 13.9 % Normal 11.5-14.5 [facility] Comment on above: Performed By: #### C BCND, ANION, EGFR1, BMP #### [employer] [address] [place] [address] Hematocrit (Bld) [Volume fraction] 23.5 % Low 42.0-52.0 [facility] Comment on above: Performed By: #### C BCND, ANION, EGFR1, BMP #### [employer] [address] [address] Hemoglobin (Bld) [Mass/Vol] 7.4 g/dL Low 14.0-18.0 [facility] Comment on above: Performed By: #### C BCND, ANION, EGFR1, BMP #### [facility] [address] [place] [address]80 MCH (RBC) [Entitic mass] 29.7 pg Normal 26.0-33.0 [facility] Comment on above: Performed By: #### C BCND, ANION, EGFR1, BMP #### [employer] [address] [place] [address] MCHC (RBC) [Mass/Vol] 31.5 g/dL Low 32.2-35.5 [facility] Comment on above: Performed By: #### C BCND, ANION, EGFR1, BMP #### [employer] [address] [place] [address] MCV (RBC) [Entitic vol] 94.4 fL High 80.0-94.0 [facility] Comment on above: Performed By: #### C BCND, ANION, EGFR1, BMP #### [employer] [address] [place] [address] 22039 PLATELET 132 thou/mm3 Normal 130-400 [facility] Comment on above: Performed By: #### C BCND, ANION, EGFR1, BMP #### [employer] [address] [place] [address]60 Platelet mean volume (Bld) [Entitic vol] 8.9 fL Low 9.4-12.4 [facility] Comment on above: Performed By: #### C BCND, ANION, EGFR1, BMP #### [employer] [address] [place] [address] 39085 RBC 2.49 mill/mm3 Low 4.70-6.10 [facility] Comment on above: Performed By: #### C BCND, ANION, EGFR1, BMP #### [facility] [employer] [address] [address] RDW-SD 47.8 fL High 35.0-45.0 [facility] Comment on above: Performed By: #### C BCND, ANION, EGFR1, BMP #### [employer] [address] [place] [address] WBC 4.6 thou/mm3 Low 4.8-10.8 [facility] Comment on above: Performed By: #### C BCND, ANION, EGFR1, BMP #### [employer] [facility] [employer] [address] [address] GFR, ESTIMATEDon 07-24-2022 GFR/1.73 sq M.predicted MDRD (S/P/Bld) [Vol rate/Area] 23 mL/min/{1.73_m2} Abnormal >60 [facility] Comment on above: Result Comment: Pedi atric [...] secretion. Performed By: #### P OCGL #### [facility] [address] [place] [address] GLUCOSE POCon 07-24-2022 Glucose [Mass/Vol] 374 mg/dL High 70-108 [facility] Comment on above: Performed By: #### P OCGL ####[facility] [address] [place] [address] Glucose [Mass/Vol] 392 mg/dL High 70-108 [facility] Comment on above: Performed By: #### H -A1C #### [facility] [address] [place] [address] Glucose [Mass/Vol] 391 mg/dL High 70-108 [facility] Comment on above: Performed By: #### P OCGL #### [facility] [address] [place] [address] Glucose [Mass/Vol] 225 mg/dL High 70-108 [facility] Comment on above: Performed By: #### P OCGL #### [address] [address] Glomerular Filtration Rate, Estimatedon 07-24-2022 GFR/1.73 sq M.predicted MDRD (S/P/Bld) [Vol rate/Area] 23 mL/min/{1.73_m2} Abnormal - PINF [facility] Comment on above: Pediatric calculator [...] that affects renal tubular secretion. Performed at [facility] [address] [place] [address] Glucose Auto test strip (Bld ) [Mass/Vol]on 07-24-2022 Glucose [Mass/Vol] 374 mg/dL High 70 - 108 mg/dl [facility] Comment on above: Performed at [facility] [address] [place] [address] Interpretation and review of laboratory results Abnormal [facility] Glucose [Mass/Vol] 392 mg/dL High 70 - 108 mg/dl [facility] Comment on above: Performed at [facility] [address] [place] [address] Interpretation and review of laboratory results Abnormal [facility] Glucose [Mass/Vol] 391 mg/dL High 70 - 108 mg/dl [facility] Comment on above: Performed at [facility] [address] [place] [address] Interpretation and review of laboratory results Abnormal [facility] Glucose [Mass/Vol] 225 mg/dL High 70 - 108 mg/dl [facility] Comment on above: Performed at [facility] [address] [place] [address] Interpretation and review of laboratory results Abnormal [facility] No Panel Informationon 07-24 Interpretation and review of laboratory results Abnormal [facility] POTASSIUMon 07-24-2022 Potassium [Moles/Vol] 5.0 mmol/L Normal 3.5-5.2 [facility] Comment on above: Performed By: #### P OCGL #### [facility] [address] [place] [address] Potassiumon 07-24-2022 Potassium [Moles/Vol] 5.0 mmol/L 3.5 - 5.2 meq/L [facility] Comment on above: Performed at [facility] [address] [place] [address] Potassium [Moles/Vol]on 07-07 [facility] ANION GAPon 07-23-2022 Anion gap [Moles/Vol] 11.0 mmol/L Normal 8.0-16.0 [facility] Comment on above: Result Comment: ANIO N GAP = Sodium -(Chloride + CO2) Performed By: #### B MP, EGFR1, ANION, CBCND ####[facility] [address] [place] [address] Anion Gapon 07-23-2022 Anion gap [Moles/Vol] 11.0 mmol/L 8.0 - 16.0 meq/L [facility] Comment on above: ANION GAP = Sodium - (Chloride + CO2) Performed at [facility] [address] [place] [address] BASIC METABOL PANELon 2022 Calcium [Mass/Vol] 7.5 mg/dL Low 8.5-10.5 [facility] Comment on above: Performed By: #### B MP, EGFR1, ANION, CBCND ####[facility] [address] [place] [address] Chloride [Moles/Vol] 111 mmol/L Normal 98-111 [facility] Comment on above: Performed By: #### B MP, EGFR1, ANION, CBCND ####[facility] [address] [place] [address] CO2 [Moles/Vol] 19 mmol/L Low 23-33 [facility] Comment on above: Performed By: #### B MP, EGFR1, ANION, CBCND ####[facility] [address] [place] [address] Creatinine [Mass/Vol] 2.8 mg/dL High 0.4-1.2 [facility] Comment on above: Performed By: #### B MP, EGFR1, ANION, CBCND ####[facility] [address] [place] [address] Glucose [Mass/Vol] 113 mg/dL High 70-108 [facility] Comment on above: Performed By: #### B MP, EGFR1, ANION, CBCND ####[facility] [address] [place] [address] Potassium [Moles/Vol] 4.8 mmol/L Normal 3.5-5.2 [facility] Comment on above: Performed By: #### B MP, EGFR1, ANION, CBCND ####[facility] [address] [place] [address] Sodium [Moles/Vol] 141 mmol/L Normal 135-145 [facility] Comment on above: Performed By: #### B MP, EGFR1, ANION, CBCND ####[facility] [address] [place] [address] Urea nitrogen [Mass/Vol] 30 mg/dL High 7-22 [facility] Comment on above: Performed By: #### B MP, EGFR1, ANION, CBCND ####[facility] [address] [place] [address] Basic metabolic 2000 panelon 07-23-2022 Calcium [Mass/Vol] 7.5 mg/dL Low 8.5 - 10. 5 mg/dL [facility] Comment on above: Performed at [facility] [address] [place] [address] Chloride [Moles/Vol] 111 mmol/L 98 - 11 1 meq/L [facility] CO2 [Moles/Vol] 19 mmol/L Low 23 - 33 meq/L [facility] Creatinine [Mass/Vol] 2.8 mg/dL High 0.4 - 1.2 mg/dL [facility] Glucose [Mass/Vol] 113 mg/dL High 70 - 108 mg/dL [facility] Potassium [Moles/Vol] 4.8 mmol/L 3.5 - 5.2 meq/L [facility] Sodium [Moles/Vol] 141 mmol/L 135 - 145 meq/L [facility] Urea nitrogen [Mass/Vol] 30 mg/dL High 7 - 22 mg/dL [facility] CBCon 07-23-2022 Erythrocyte distribution width (RBC) [Entitic vol] 51.9 fL High 35.0 - 45.0 fL [facility] Erythrocyte distribution width (RBC) [Ratio] 15 % High 11.5 - 14.5 % [facility] Hematocrit (Bld) [Volume fraction] 23.2 % Low 42.0 - 52.0 % [facility] Hemoglobin (Bld) [Mass/Vol] 7.6 g/dL Low [facility] Interpretation and review of laboratory results Abnormal [facility] MCH (RBC) [Entitic mass] 31.4 pg 26.0 - 33.0 pg [facility] MCHC (RBC) [Mass/Vol] 32.8 g/dL [facility] MCV (RBC) [Entitic vol] 95.9 fL High 80.0 - 94.0 fL [facility] Platelet mean volume (Bld) [Entitic vol] 8.6 fL Low 9.4 - 12.4 fL [facility] Comment on above: Performed at [facility] [address] [place] [address] Platelets (Bld) [#/Vol] 128 10*3/uL Low [facility] RBC (Bld) [#/Vol] 2.42 10*6/uL Low [facility] WBC (Bld) [#/Vol] 6.7 10*3/uL [facility] CBC NO DIFFERENTIALon 2022 Erythrocyte distribution width (RBC) [Ratio] 15.0 % High 11.5-14.5 [facility] Comment on above: Performed By: #### P OCGL #### [facility] [address] [place] [address] Hematocrit (Bld) [Volume fraction] 23.2 % Low 42.0-52.0 [facility] Comment on above: Performed By: #### P OCGL #### [facility] [address] [place] [address] Hemoglobin (Bld) [Mass/Vol] 7.6 g/dL Low 14.0-18.0 [facility] Comment on above: Performed By: #### P OCGL #### [facility] [address] [place] [address] MCH (RBC) [Entitic mass] 31.4 pg Normal 26.0-33.0 [facility] Comment on above: Performed By: #### P OCGL #### [facility] [address] [place] [address] MCHC (RBC) [Mass/Vol] 32.8 g/dL Normal 32.2-35.5 [facility] Comment on above: Performed By: #### P OCGL #### [facility] [address] [place] [address] MCV (RBC) [Entitic vol] 95.9 fL High 80.0-94.0 [facility] Comment on above: Performed By: #### P OCGL #### [address] [address] PLATELET 128 thou/mm3 Low 130-400 [facility] Comment on above: Performed By: #### P OCGL #### [address] [address] Platelet mean volume (Bld) [Entitic vol] 8.6 fL Low 9.4-12.4 [facility] Comment on above: Performed By: #### P OCGL #### [facility] [address] [place] [address] RBC 2.42 mill/mm3 Low 4.70-6.10 [facility] Comment on above: Performed By: #### P OCGL #### [place] [address] RDW-SD 51.9 fL High 35.0-45.0 [facility] Comment on above: Performed By: #### P OCGL #### [address] [address] WBC 6.7 thou/mm3 Normal 4.8-10.8 [facility] Comment on above: Performed By: #### P OCGL #### [place] [id number] CT HEAD WO CONTRASTon 2022 No evidence of an acute process. This report has been created using voice recognition software. It may contain minor errors which are inherent in voice recognition technology. Final report electronically signed by Dr. Gissel Escobedo on 07/23/2022 1:23 PM [facility] Gissel Nina MD - 07/23/2022 PROCEDURE: CT [...] Dr. Gissel Escobedo on 07/23/2022 1:23 PM [facility] Work Phone: Radiology Study observation (narrative) [employer] Work Phone: CT HEAD WO CONTRASTOrdered B y: Gissel Escobedo on 07-23-2022 [employer] [facility] Work Phone: GFR, ESTIMATEDon 07-23-2022 GFR/1.73 sq M.predicted MDRD (S/P/Bld) [Vol rate/Area] 23 mL/min/{1.73_m2} Abnormal >60 [facility] Comment on above: Result Comment: Pedi atric [...] By: #### B MP, EGFR1, ANION, CBCND ####[employer] [address] [place] [address] GLUCOSE POCon 07-23-2022 Glucose [Mass/Vol] 163 mg/dL High 70-108 [facility] Comment on above: Performed By: #### P OCGL #### [facility] [address] [place] [address] Glucose [Mass/Vol] 156 mg/dL High 70-108 [facility] Comment on above: Performed at [facility] [address] [place] [address] Performed By: #### P OCGL #### [facility] [address] [place] [address] Glucose [Mass/Vol] 152 mg/dL High 70-108 [facility] Comment on above: Performed By: #### P OCGL #### [facility] [address] [place] [address] Glucose [Mass/Vol] 151 mg/dL High 70-108 [facility] Comment on above: Performed By: #### P OCGL #### [facility] [address] [place] [address] Glucose [Mass/Vol] 120 mg/dL High 70-108 [facility] Comment on above: Performed By: #### P OCGL #### [facility] [address] [place] [address] Gas panel (BldA)on 3 Arterial patency Wrist artery --pre arterial puncture Positive [facility] Base excess Calc (Bld) [Moles/Vol] -3.9000 mmol/L Low -2.5 - 2.5 mmol/l [facility] Body site L Brach [facility] CO2 (Bld) [Partial pressure] 42 mm[Hg] [facility] COLLECTED BY: [id number] [facility] Comment on above: Performed at [facility] [address] [place] [address] DEVICE Cannula [facility] HCO3 (Bld) [Moles/Vol] 22 mmol/L Low 23 - 28 mmol/l [facility] Interpretation and review of laboratory results Abnormal [facility] Oxygen (Bld) [Partial pressure] 99 mm[Hg] [employer] [facility] Oxygen/Inspired gas Respiratory system by O2 Analyzer --on ventilator 2 [employer] pH (Bld) 7.32 [pH] Low 7.35 - 7.45 [facility] Glomerular Filtration Rate, Estimatedon 07-23-2022 GFR/1.73 sq M.predicted MDRD (S/P/Bld) [Vol rate/Area] 23 mL/min/{1.73_m2} Abnormal - PINF [facility] Comment on above: Pediatric calculator [...] that affects renal tubular secretion. Performed at [facility] [address] [place] [address] Glucose Auto test strip (Bld ) [Mass/Vol]on 07-23-2022 Glucose [Mass/Vol] 163 mg/dL High 70 - 108 mg/dl [employer] [facility] [email or web address] Comment on above: Performed at [facility] [address] [place] [address] Interpretation and review of laboratory results Abnormal [facility] Glucose [Mass/Vol] 152 mg/dL High 70 - 108 mg/dl [facility] Comment on above: Performed at [facility] [address] [place] [address] Interpretation and review of laboratory results Abnormal [facility] Glucose [Mass/Vol] 151 mg/dL High 70 - 108 mg/dl [facility] Comment on above: Performed at [facility] [address] [place] [address] Interpretation and review of laboratory results Abnormal [facility] Glucose [Mass/Vol] 120 mg/dL High 70 - 108 mg/dl [facility] Comment on above: Performed at [facility] [address] [place] [address] Interpretation and review of laboratory results Abnormal [facility] ISTAT BLOOD GASon 07-23-2022 STEVE'S TEST Positive Normal [facility] Comment on above: Performed By: #### P OCGL #### [facility] [address] [place] [address] BASE EXCESS -3.9 mmol/l Low -2.5-2.5 [facility] Comment on above: Performed By: #### P OCGL #### [facility] [address] [place] [address] COLLECTED BY [id number] [facility] Comment on above: Performed By: #### P OCGL #### [facility] [address] [place] [address] DEVICE Cannula [facility] Comment on above: Performed By: #### P OCGL #### [facility] [address] [place] [address] FIO2 2 [facility] Comment on above: Performed By: #### P OCGL #### [facility] [address] [place] [address] HCO3 (Bld) [Moles/Vol] 22 mmol/L Low 23-28 [facility] Comment on above: Performed By: #### P OCGL #### [employer] [address] [place] [address] Oxygen (Bld) [Partial pressure] 99 mm[Hg] Normal 71-104 [facility] Comment on above: Performed By: #### P OCGL #### [facility] [address] [place] [address] Oxygen saturation in Blood 97 % Normal [facility] Comment on above: Performed By: #### P OCGL #### [facility] [address] [place] [address] 26447 PCO2 42 mmhg Normal 35-45 [facility] Comment on above: Performed By: #### P OCGL #### [facility] [address] [place] [address] 24899 pH (Bld) 7.32 [pH] Low 7.35-7.45 [facility] Comment on above: Performed By: #### P OCGL #### [facility] [address] [place] [address] SITE L Brach [facility] Comment on above: Performed By: #### P OCGL #### [employer] [address] [place] [address] No Panel Informationon 07-23 Interpretation and review of laboratory results Abnormal [facility] URINALYSIS W/ MICROon 2022 CASTS >15 C.GRAN Normal NONE SEEN [facility] Comment on above: Performed By: #### P OCGL #### [facility] [address] [place] [address] CASTS 2 0-4 FINE GRAN Normal [facility] Comment on above: Performed By: #### P OCGL #### [facility] [address] [place] [address] [place] [address] MISCELLANEOUS see below Normal [facility] Comment on above: Result Comment: See Below 0-4 HYALINE CASTS Performed By: #### P OCGL #### [facility] [address] [place] [address] MUCOUS THREADS Normal NONE SEEN/THREA [facility] Comment on above: Performed By: #### P OCGL #### [facility] [address] [place] [address] RBC 10-15 Normal 0-2/hpf [facility] Comment on above: Performed By: #### P OCGL #### [facility] [address] [place] [address] [place] [address] RENAL EPITHELIAL 3-5 Normal NONE SEEN [facility] Comment on above: Performed By: #### P OCGL #### [facility] [address] [place] [address] WBC 15-25 Normal 0-4/hpf [facility] Comment on above: Performed By: #### P OCGL #### [facility] [address] [place] [address] [place] [address] BACTERIA NONE SEEN Normal FEW/NONE SEEN [facility] Comment on above: Performed By: #### P OCGL #### [facility] [address] [place] [address] [place] [address] Crystals LM Nom (Urine sed) NONE SEEN Normal NONE SEEN [facility] Comment on above: Performed By: #### P OCGL #### [facility] [address] [place] [address] [place] [address] EPITHELIAL 25-50 Normal 3-5/hpf [facility] Comment on above: Performed By: #### P OCGL #### [facility] [address] [place] [address] MISCELLANEOUS 2 NONE SEEN Normal [facility] Comment on above: Performed By: #### P OCGL #### [facility] [address] [facility] [place] [address] YEAST NONE SEEN Normal NONE SEEN [facility] Comment on above: Performed By: #### P OCGL #### [facility] [address] [facility] [place] [address] Bilirubin Ql (U) Negative Normal NEGATIVE [facility] Comment on above: Performed By: #### P OCGL #### [facility] [address] [facility] [place] [address] CHARACTER TURBID Abnormal CLR-SL.CLOUD [facility] Comment on above: Performed By: #### P OCGL #### [facility] [address] [place] [address] Color (U) YELLOW Normal YELLOW-STRAW [facility] [facility] Comment on above: Performed By: #### P OCGL #### [facility] [address] [facility] [place] [address] Glucose Ql (U) 100 mg/dl Abnormal NEGATIVE [facility] Comment on above: Performed By: #### P OCGL #### [facility] [address] [facility] [place] [address] Hemoglobin Ql (U) MODERATE Abnormal NEGATIVE [facility] Comment on above: Performed By: #### P OCGL #### [facility] [address] [facility] [place] [address] Ketones Ql (U) Negative Normal NEGATIVE [facility] Comment on above: Performed By: #### P OCGL #### [facility] [address] [facility] [place] [address] LEUKOCYTES Negative Normal NEGATIVE [facility] Comment on above: Performed By: #### P OCGL #### [facility] [address] [facility] [place] [address] Nitrite Ql (U) Negative Normal NEGATIVE [facility] Comment on above: Performed By: #### P OCGL #### [facility] [address] [facility] [place] [address] pH (U) 5.0 [pH] Normal 5.0 - 9.0 [facility] Comment on above: Performed By: #### P OCGL #### [facility] [address] [place] [address] Protein Ql (U) >= 300 Abnormal NEGATIVE [facility] Comment on above: Performed By: #### P OCGL #### [facility] [address] [place], [place] [id number] Specific gravity (U) [Rel density] 1.018 Normal 1.002-1.030 [facility] Comment on above: Performed By: #### P OCGL #### [facility] [address] [place], [place] [id number] Urobilinogen Qn (U) 0.2 {Stevie'U}/dL Normal 0.0 - 1. 0 [facility] Comment on above: Performed By: #### P OCGL #### [facility] [place] [id number] Urinalysis dipstick W Reflex Microscopic panel (U)on 07-23-2022 Bacteria, UA NONE SEEN FEW/NONE SEEN [facility] Bilirubin Ql (U) Negative NEGATIVE [facility] Casts LM.LPF (Urine sed) [#/Area] >15 C.GRAN NONE SEEN /lpf [facility] Casts LM.LPF (Urine sed) [#/Area] 0-4 FINE GRAN /lpf [facility] Character (U) TURBID Abnormal CLR-SL.CLOUD [facility] Charcoal LM Ql (Urine sed) NONE SEEN [facility] Comment on above: Performed at [facility] [address] [place] [address] Color (U) YELLOW YELLOW-STRAW [facility] Crystals LM Ql (Urine sed) NONE SEEN NONE SEEN [facility] Epithelial Cells, UA 25-50 3-5/hpf /hpf [facility] Epithelial cells.renal LM.HPF (Urine sed) [#/Area] 3-5 NONE SEEN [facility] Fungi.yeastlike LM Ql (Urine sed) NONE SEEN NONE SEEN [facility] Glucose Auto test strip Ql (U) 100 mg/dl Abnormal NEGATIVE [facility] Hemoglobin Auto test strip Ql (U) MODERATE Abnormal NEGATIVE [facility] Interpretation and review of laboratory results Abnormal [facility] Ketones Auto test strip Ql (U) Negative NEGATIVE [facility] Leukocyte esterase Auto test strip Ql (U) Negative NEGATIVE [facility] Miscellaneous Lab Test Result see below [facility] Comment on above: See Below 0-4 HYALINE CASTS Mucus Ql (Urine sed) THREADS NONE SEEN/THREA [facility] Nitrite Auto test strip Ql (U) Negative NEGATIVE [facility] pH (U) 5.0 [pH] 5.0 - 9.0 [facility] Protein (U) [Mass/Vol] mg/dL Abnormal NEGAT AMAAD mg/dl [facility] RBC LM.HPF (Urine sed) [#/Area] 10-15 0-2/hpf /hpf [facility] Specific gravity Refractometry automated (U) [Rel density] 1.018 1.002 - 1.030 [facility] Urobilinogen Ql (U) 0.2 [facility] WBC LM.HPF (Urine sed) [#/Area] 15-25 0-4/hpf /hpf [facility] VL DUP LOWER EXTREMITY VENOU S BILATERALon 07-23-2022 No evidence of a DVT. This report has been created using voice recognition software. It may contain minor errors which are inherent in voice recognition technology. Final report electronically signed by Dr Hcétor Mcdonnell on 07/23/2022 5:19 PM [facility] Héctor Mcdonnell MD - 07/23/2022 PROCEDURE: VL DUP LOWER [...] Dr Héctor Mcdonnell on 07/23/2022 5:19 PM [employer] Work Phone: Radiology Study observation (narrative) [employer] Work Phone: VL DUP LOWER EXTREMITY VENOU S BILATERALOrdered By: Héctor Mcdonnell on 07-23-2022 [facility] AMMONIAon 07-22-2022 Ammonia (P) [Moles/Vol] 36 umol/L Normal 11-60 [facility] Comment on above: Performed By: #### P OCGL #### [facility] [address] [place] [address] ANION GAPon 07-22-2022 Anion gap [Moles/Vol] 12.0 mmol/L Normal 8.0-16.0 [facility] Comment on above: Result Comment: ANIO N GAP = Sodium -(Chloride + CO2) Performed By: #### P OCGL #### [facility] [address] [place] [address] Anion gap [Moles/Vol] 10.0 mmol/L Normal 8.0-16.0 [facility] Comment on above: Result Comment: ANIO N GAP = Sodium -(Chloride + CO2) Performed By: #### P OCGL #### [facility] [address] [place] [address] Ammonia (P) [Mass/Vol]on Ammonia (P) [Moles/Vol] 36 umol/L 11 - 60 umol/L [facility] Comment on above: Performed at [facility] [address] [place] [address] [facility] [employer] Anion Gapon 07-22-2022 Anion gap [Moles/Vol] 12.0 mmol/L 8.0 - 16.0 meq/L [facility] Comment on above: ANION GAP = Sodium - (Chloride + CO2) Performed at [facility] [address] [place] [address] Anion gap [Moles/Vol] 10.0 mmol/L 8.0 - 16.0 meq/L [facility] Comment on above: ANION GAP = Sodium - (Chloride + CO2) Performed at [facility] [address] [place] [address] BASIC METABOL PANELon 2022 Calcium [Mass/Vol] 7.5 mg/dL Low 8.5-10.5 [facility] Comment on above: Performed By: #### P OCGL #### [facility] [address] [place] [address] Chloride [Moles/Vol] 109 mmol/L Normal 98-111 [facility] Comment on above: Performed By: #### P OCGL #### [facility] [address] [place] [address] CO2 [Moles/Vol] 18 mmol/L Low 23-33 [facility] Comment on above: Performed By: #### P OCGL #### [facility] [address] [place] [address] Creatinine [Mass/Vol] 2.4 mg/dL High 0.4-1.2 [facility] Comment on above: Performed By: #### P OCGL #### [facility] [address] [place] [address] Glucose [Mass/Vol] 167 mg/dL High 70-108 [facility] Comment on above: Performed By: #### P OCGL #### [facility] [address] [place] [address] Potassium [Moles/Vol] 4.7 mmol/L Normal 3.5-5.2 [facility] Comment on above: Performed By: #### P OCGL #### [facility] [address] [place] [address] Sodium [Moles/Vol] 139 mmol/L Normal 135-145 [facility] Comment on above: Performed By: #### P OCGL #### [facility] [address] [place] [address] Urea nitrogen [Mass/Vol] 25 mg/dL High 7-22 [facility] Comment on above: Performed By: #### P OCGL #### [facility] [address] [place] [address] Calcium [Mass/Vol] 6.9 mg/dL Low 8.5-10.5 [facility] Comment on above: Performed By: #### P OCGL #### [facility] [address] [place] [address] Chloride [Moles/Vol] 111 mmol/L Normal 98-111 [facility] Comment on above: Performed By: #### P OCGL #### [facility] [address] [place] [address]879 CO2 [Moles/Vol] 18 mmol/L Low 23-33 [facility] Comment on above: Performed By: #### P OCGL #### [facility] [address] [place] [address] Creatinine [Mass/Vol] 2.4 mg/dL High 0.4-1.2 [facility] Comment on above: Performed By: #### P OCGL #### [facility] [address] [place] [address] Glucose [Mass/Vol] 119 mg/dL High 70-108 [facility] Comment on above: Performed By: #### P OCGL #### [facility] [address] [place] [address] Potassium [Moles/Vol] 4.5 mmol/L Normal 3.5-5.2 [facility] Comment on above: Performed By: #### P OCGL #### [facility] [address] [place] [address] Sodium [Moles/Vol] 139 mmol/L Normal 135-145 [facility] Comment on above: Performed By: #### P OCGL #### [facility] [address] [place] [address] Urea nitrogen [Mass/Vol] 23 mg/dL High 7-22 [facility] Comment on above: Performed By: #### P OCGL #### [facility] [address] [place] [address] Basic metabolic 2000 panelon 07-22-2022 Calcium [Mass/Vol] 7.5 mg/dL Low 8.5 - 10. 5 mg/dL [facility] Comment on above: Performed at [facility] [address] [place] [address] Chloride [Moles/Vol] 109 mmol/L 98 - 11 1 meq/L [facility] CO2 [Moles/Vol] 18 mmol/L Low 23 - 33 meq/L [facility] Creatinine [Mass/Vol] 2.4 mg/dL High 0.4 - 1.2 mg/dL [facility] Glucose [Mass/Vol] 167 mg/dL High 70 - 108 mg/dL [facility] Potassium [Moles/Vol] 4.7 mmol/L 3.5 - 5.2 meq/L [facility] Sodium [Moles/Vol] 139 mmol/L 135 - 145 meq/L [facility] Urea nitrogen [Mass/Vol] 25 mg/dL High 7 - 22 mg/dL [facility] Calcium [Mass/Vol] 6.9 mg/dL Low 8.5 - 10. 5 mg/dL [employer] [facility] Comment on above: Performed at [facility] [address] [place] [address] Chloride [Moles/Vol] 111 mmol/L 98 - 11 1 meq/L [facility] CO2 [Moles/Vol] 18 mmol/L Low 23 - 33 meq/L [facility] Creatinine [Mass/Vol] 2.4 mg/dL High 0.4 - 1.2 mg/dL [facility] Glucose [Mass/Vol] 119 mg/dL High 70 - 108 mg/dL [facility] Potassium [Moles/Vol] 4.5 mmol/L 3.5 - 5.2 meq/L [facility] Sodium [Moles/Vol] 139 mmol/L 135 - 145 meq/L [email or web address] Urea nitrogen [Mass/Vol] 23 mg/dL High 7 - 22 mg/dL [facility] CBCon 07-22-2022 Erythrocyte distribution width (RBC) [Entitic vol] 54.9 fL High 35.0 - 45.0 fL [facility] Erythrocyte distribution width (RBC) [Ratio] 15.3 % High 11.5 - 14.5 % [email or web address] Hematocrit (Bld) [Volume fraction] 26.8 % Low 42.0 - 52.0 % [facility] Hemoglobin (Bld) [Mass/Vol] 8.1 g/dL Low [facility] Interpretation and review of laboratory results Abnormal [facility] MCH (RBC) [Entitic mass] 29.9 pg 26.0 - 33.0 pg [facility] MCHC (RBC) [Mass/Vol] 30.2 g/dL Low [facility] MCV (RBC) [Entitic vol] 98.9 fL High 80.0 - 94.0 fL [facility] Platelet mean volume (Bld) [Entitic vol] 8.9 fL Low 9.4 - 12.4 fL [facility] Comment on above: Performed at [facility] [employer] [facility] [address] [place] [address] Platelets (Bld) [#/Vol] 157 10*3/uL [facility] RBC (Bld) [#/Vol] 2.71 10*6/uL Low [facility] WBC (Bld) [#/Vol] 8.0 10*3/uL [facility] Erythrocyte distribution width (RBC) [Entitic vol] 54.4 fL High 35.0 - 45.0 fL [facility] Erythrocyte distribution width (RBC) [Ratio] 15.1 % High 11.5 - 14.5 % [facility] Hematocrit (Bld) [Volume fraction] 26.2 % Low 42.0 - 52.0 % [facility] Hemoglobin (Bld) [Mass/Vol] 8.0 g/dL Low [facility] Interpretation and review of laboratory results Abnormal [facility] MCH (RBC) [Entitic mass] 30.4 pg 26.0 - 33.0 pg [facility] MCHC (RBC) [Mass/Vol] 30.5 g/dL Low [facility] MCV (RBC) [Entitic vol] 99.6 fL High 80.0 - 94.0 fL [facility] Platelet mean volume (Bld) [Entitic vol] 8.8 fL Low 9.4 - 12.4 fL [facility] Comment on above: Performed at [facility] [address] [place] [address] Platelets (Bld) [#/Vol] 137 10*3/uL [facility] RBC (Bld) [#/Vol] 2.63 10*6/uL Low [facility] WBC (Bld) [#/Vol] 7.2 10*3/uL [facility] CBC NO DIFFERENTIALon 2022 Erythrocyte distribution width (RBC) [Ratio] 15.3 % High 11.5-14.5 [facility] Comment on above: Performed By: #### P OCGL #### [facility] [address] [place] [address] Hematocrit (Bld) [Volume fraction] 26.8 % Low 42.0-52.0 [facility] Comment on above: Performed By: #### P OCGL #### [facility] [address] [place] [address] Hemoglobin (Bld) [Mass/Vol] 8.1 g/dL Low 14.0-18.0 [facility] Comment on above: Performed By: #### P OCGL #### [facility] [address] [place] [address] MCH (RBC) [Entitic mass] 29.9 pg Normal 26.0-33.0 [facility] Comment on above: Performed By: #### P OCGL #### [facility] [address] [place] [address]285 MCHC (RBC) [Mass/Vol] 30.2 g/dL Low 32.2-35.5 [facility] Comment on above: Performed By: #### P OCGL #### [facility] [address] [place] [address]365 MCV (RBC) [Entitic vol] 98.9 fL High 80.0-94.0 [facility] Comment on above: Performed By: #### P OCGL #### [facility] [address] [place] [address]58 PLATELET 157 thou/mm3 Normal 130-400 [facility] Comment on above: Performed By: #### P OCGL #### [address] [address] Platelet mean volume (Bld) [Entitic vol] 8.9 fL Low 9.4-12.4 [facility] Comment on above: Performed By: #### P OCGL #### [address] [address] RBC 2.71 mill/mm3 Low 4.70-6.10 [facility] Comment on above: Performed By: #### P OCGL #### [address] [address] RDW-SD 54.9 fL High 35.0-45.0 [facility] Comment on above: Performed By: #### P OCGL #### [address] [address] WBC 8.0 thou/mm3 Normal 4.8-10.8 [facility] Comment on above: Performed By: #### P OCGL #### [address] [address] Erythrocyte distribution width (RBC) [Ratio] 15.1 % High 11.5-14.5 [facility] Comment on above: Performed By: #### P OCGL #### [address] [address] Hematocrit (Bld) [Volume fraction] 26.2 % Low 42.0-52.0 [facility] Comment on above: Performed By: #### P OCGL #### [address] [address] Hemoglobin (Bld) [Mass/Vol] 8.0 g/dL Low 14.0-18.0 [facility] Comment on above: Performed By: #### P OCGL #### [address] [address] MCH (RBC) [Entitic mass] 30.4 pg Normal 26.0-33.0 [facility] Comment on above: Performed By: #### P OCGL #### [address] [address] MCHC (RBC) [Mass/Vol] 30.5 g/dL Low 32.2-35.5 [facility] Comment on above: Performed By: #### P OCGL #### [facility] [address] [place] [address]66 MCV (RBC) [Entitic vol] 99.6 fL High 80.0-94.0 [facility] Comment on above: Performed By: #### P OCGL #### [facility] [address] [place] [address]39 PLATELET 137 thou/mm3 Normal 130-400 [facility] Comment on above: Performed By: #### P OCGL #### [facility] [address] [place] [address]156 Platelet mean volume (Bld) [Entitic vol] 8.8 fL Low 9.4-12.4 [facility] Comment on above: Performed By: #### P OCGL #### [address] [address] RBC 2.63 mill/mm3 Low 4.70-6.10 [facility] Comment on above: Performed By: #### P OCGL #### [address] [address] RDW-SD 54.4 fL High 35.0-45.0 [facility] Comment on above: Performed By: #### P OCGL #### [address] [address] WBC 7.2 thou/mm3 Normal 4.8-10.8 [facility] Comment on above: Performed By: #### P OCGL #### [address] [address] GFR, ESTIMATEDon 07-22-2022 GFR/1.73 sq M.predicted MDRD (S/P/Bld) [Vol rate/Area] 28 mL/min/{1.73_m2} Abnormal >60 [facility] Comment on above: Result Comment: Shayla atric [...] secretion. Performed By: #### P OCGL #### [facility] [address] [place] [address] GFR/1.73 sq M.predicted MDRD (S/P/Bld) [Vol rate/Area] 28 mL/min/{1.73_m2} Abnormal >60 [facility] Comment on above: Result Comment: Pedi atric [...] secretion. Performed By: #### P OCGL #### [facility] [address] [place] [address]29 GLUCOSE POCon 07-22-2022 Glucose [Mass/Vol] 213 mg/dL High 70-108 [facility] Comment on above: Performed By: #### P OCGL #### [facility] [address] [place] [address]999 Glucose [Mass/Vol] 126 mg/dL High 70-108 [facility] Comment on above: Performed By: #### P OCGL #### [facility] [address] [place] [address]151 Glucose [Mass/Vol] 132 mg/dL High [address] [facility] Comment on above: Performed By: #### P OCGL #### [facility] [address] [place] [address]13 Glucose [Mass/Vol] 128 mg/dL High 701[address] [facility] Comment on above: Performed By: #### P OCGL ####[facility] [address] [place] [address] Glomerular Filtration Rate, Estimatedon 07-22-2022 GFR/1.73 sq M.predicted MDRD (S/P/Bld) [Vol rate/Area] 28 mL/min/{1.73_m2} Abnormal - PINF [employer] Comment on above: Pediatric calculator link https://www.kidney.org/professionals/kdoqi/gfr_calculatorped [...] that affects renal tubular secretion. Performed at [facility] [address] [place] [address] GFR/1.73 sq M.predicted MDRD (S/P/Bld) [Vol rate/Area] 28 mL/min/{1.73_m2} Abnormal - PINF [employer] Comment on above: Pediatric calculator link https://www.kidney.org/professionals/kdoqi/gfr_calculatorped [...] that affects renal tubular secretion. Performed at [facility] [address] [place] [address] Glucose Auto test strip (Bld ) [Mass/Vol]on 07-22-2022 Glucose [Mass/Vol] 213 mg/dL High 70 - 108 mg/dl [employer] Comment on above: Performed at [facility] [address] [place] [address] Interpretation and review of laboratory results Abnormal [employer] Glucose [Mass/Vol] 126 mg/dL High 70 - 108 mg/dl [employer] Comment on above: Performed at [facility] [address] [place] [address] Interpretation and review of laboratory results Abnormal [facility] Glucose [Mass/Vol] 132 mg/dL High 70 - 108 mg/dl [facility] Comment on above: Performed at [facility] [address] [place] [address] Interpretation and review of laboratory results Abnormal [facility] Glucose [Mass/Vol] 128 mg/dL High 70 - 108 mg/dl [facility] Comment on above: Performed at [facility] [address] [place] [address] Interpretation and review of laboratory results Abnormal [facility] No Panel Informationon 07-22 Interpretation and review of laboratory results Abnormal [facility] Interpretation and review of laboratory results Abnormal [facility] ANION GAPon 07-21-2022 Anion gap [Moles/Vol] 15.0 mmol/L Normal 8.0-16.0 [facility] Comment on above: Result Comment: ANIO N GAP = Sodium -(Chloride + CO2) Performed By: #### P OCGL #### [facility] [address] [place] [address] Anion Gapon 07-21-2022 Anion gap [Moles/Vol] 15.0 mmol/L 8.0 - 16.0 meq/L [facility] Comment on above: ANION GAP = Sodium - (Chloride + CO2) Performed at [facility] [address] [place] [address] BASIC METABOL PANELon 2022 Calcium [Mass/Vol] 6.7 mg/dL Low 8.5-10.5 [facility] Comment on above: Performed By: #### P OCGL #### [facility] [address] [place] [address] Chloride [Moles/Vol] 108 mmol/L Normal 98-111 [facility] Comment on above: Performed By: #### P OCGL #### [facility] [address] [place] [address] CO2 [Moles/Vol] 18 mmol/L Low 23-33 [facility] Comment on above: Performed By: #### P OCGL #### [facility] [address] [place] [address] Creatinine [Mass/Vol] 2.0 mg/dL High 0.4-1.2 [facility] Comment on above: Performed By: #### P OCGL #### [facility] [address] [place] [address] Glucose [Mass/Vol] 113 mg/dL High 70-108 [facility] Comment on above: Performed By: #### P OCGL #### [facility] [address] [place] [address] Potassium [Moles/Vol] 4.8 mmol/L Normal 3.5-5.2 [facility] Comment on above: Result Comment: Low level specimen hemolysis is present as indicated by the interference level index on the Cassidy analyzer. The reported K+ level may be falsely increased. If clinically warranted, recollection of the specimen is suggested. Performed By: #### P OCGL #### [facility] [address] [place] [address] Sodium [Moles/Vol] 141 mmol/L Normal 135-145 [facility] Comment on above: Performed By: #### P OCGL #### [facility] [address] [place] [address] Urea nitrogen [Mass/Vol] 26 mg/dL High 7-22 [facility] Comment on above: Performed By: #### P OCGL #### [facility] [address] [place] [address] Basic metabolic 2000 panelon 07-21-2022 Calcium [Mass/Vol] 6.7 mg/dL Low 8.5 - 10. 5 mg/dL [facility] [employer] Comment on above: Performed at [facility] [facility] [address] [place] [address] Chloride [Moles/Vol] 108 mmol/L 98 - 11 1 meq/L [facility] [employer] CO2 [Moles/Vol] 18 mmol/L Low 23 - 33 meq/L [facility] Creatinine [Mass/Vol] 2 mg/dL High 0.4 - 1.2 mg/dL [facility] Glucose [Mass/Vol] 113 mg/dL High 70 - 108 mg/dL [facility] Potassium [Moles/Vol] 4.8 mmol/L 3.5 - 5.2 meq/L [facility] Comment on above: Low level specimen h emolysis is present as indicated by the interference level index on the Cassidy analyzer. The reported K+ level may be falsely increased. If clinically warranted, recollection of the specimen is suggested. Sodium [Moles/Vol] 141 mmol/L 135 - 145 meq/L [facility] Urea nitrogen [Mass/Vol] 26 mg/dL High 7 - 22 mg/dL [facility] CBCon 07-21-2022 Erythrocyte distribution width (RBC) [Entitic vol] 52.2 fL High 35.0 - 45.0 fL [facility] Erythrocyte distribution width (RBC) [Ratio] 14.9 % High 11.5 - 14.5 % [facility] Hematocrit (Bld) [Volume fraction] 27.2 % Low 42.0 - 52.0 % [facility] Hemoglobin (Bld) [Mass/Vol] 8.7 g/dL Low [facility] Interpretation and review of laboratory results Abnormal [facility] MCH (RBC) [Entitic mass] 30.7 pg 26.0 - 33.0 pg [facility] MCHC (RBC) [Mass/Vol] 32.0 g/dL Low [facility] MCV (RBC) [Entitic vol] 96.1 fL High 80.0 - 94.0 fL [facility] Platelet mean volume (Bld) [Entitic vol] 9.1 fL Low 9.4 - 12.4 fL [facility] Comment on above: Performed at [facility] [address] [place] [address] Platelets (Bld) [#/Vol] 158 10*3/uL [facility] RBC (Bld) [#/Vol] 2.83 10*6/uL Low [facility] WBC (Bld) [#/Vol] 6.8 10*3/uL [facility] CBC NO DIFFERENTIALon 2022 Erythrocyte distribution width (RBC) [Ratio] 14.9 % High 11.5-14.5 [facility] Comment on above: Performed By: #### P OCGL #### [address] [address] Hematocrit (Bld) [Volume fraction] 27.2 % Low 42.0-52.0 [facility] Comment on above: Performed By: #### P OCGL #### [address] [address] Hemoglobin (Bld) [Mass/Vol] 8.7 g/dL Low 14.0-18.0 [facility] Comment on above: Performed By: #### P OCGL #### [address] [address] MCH (RBC) [Entitic mass] 30.7 pg Normal 26.0-33.0 [facility] Comment on above: Performed By: #### P OCGL #### [address] [address] MCHC (RBC) [Mass/Vol] 32.0 g/dL Low 32.2-35.5 [facility] Comment on above: Performed By: #### P OCGL #### [address] [address] MCV (RBC) [Entitic vol] 96.1 fL High 80.0-94.0 [facility] Comment on above: Performed By: #### P OCGL #### [address] [address] PLATELET 158 thou/mm3 Normal 130-400 [facility] Comment on above: Performed By: #### P OCGL #### [address] [address] Platelet mean volume (Bld) [Entitic vol] 9.1 fL Low 9.4-12.4 [facility] Comment on above: Performed By: #### P OCGL #### [address] [address] RBC 2.83 mill/mm3 Low 4.70-6.10 [facility] Comment on above: Performed By: #### P OCGL #### [address] [address] RDW-SD 52.2 fL High 35.0-45.0 [facility] Comment on above: Performed By: #### P OCGL #### [address] [address] WBC 6.8 thou/mm3 Normal 4.8-10.8 [facility] Comment on above: Performed By: #### P OCGL #### [address] [address] GFR, ESTIMATEDon 07-21-2022 GFR/1.73 sq M.predicted MDRD (S/P/Bld) [Vol rate/Area] 35 mL/min/{1.73_m2} Abnormal >60 [facility] Comment on above: Result Comment: Phili atric [...] secretion. Performed By: #### P OCGL #### [facility] [employer] [address] [address] GLUCOSE POCon 07-21-2022 Glucose [Mass/Vol] 119 mg/dL High 70-108 [facility] Comment on above: Performed By: #### P OCGL #### [facility] [employer] [address] [place] [address] Glucose [Mass/Vol] 115 mg/dL High 70-108 [facility] Comment on above: Performed By: #### P OCGL #### [facility] [employer] [address] [place] [address] Glucose [Mass/Vol] 120 mg/dL High 70-108 [facility] Comment on above: Performed By: #### P OCGL #### [facility] [address] [place] [address] Glucose [Mass/Vol] 111 mg/dL High 70-108 [facility] Comment on above: Performed By: #### P OCGL ####[employer] [address] [place] [address] Glomerular Filtration Rate, Estimatedon 07-21-2022 GFR/1.73 sq M.predicted MDRD (S/P/Bld) [Vol rate/Area] 35 mL/min/{1.73_m2} Abnormal - [facility] Comment on above: Pediatric calculator link [...] that affects renal tubular secretion. Performed at [facility] [address] [place] [address] Glucose Auto test strip (Bld ) [Mass/Vol]on 07-21-2022 Glucose [Mass/Vol] 119 mg/dL High 70 - 108 mg/dl [facility] Comment on above: Performed at [facility] [address] [place] [address] Interpretation and review of laboratory results Abnormal [facility] [employer] [employer] [facility] Glucose [Mass/Vol] 115 mg/dL High 70 - 108 mg/dl [email or web address] Comment on above: Performed at [facility] [address] [place] [address] Interpretation and review of laboratory results Abnormal [facility] Glucose [Mass/Vol] 120 mg/dL High 70 - 108 mg/dl [email or web address] Comment on above: Performed at [facility] [address] [place] [address] Interpretation and review of laboratory results Abnormal [facility] Glucose [Mass/Vol] 111 mg/dL High 70 - 108 mg/dl [email or web address] Comment on above: Performed at [facility] [address] [place] [address] Interpretation and review of laboratory results Abnormal [facility] No Panel Informationon 07-21 Interpretation and review of laboratory results Abnormal [facility] ANION GAPon 07-20-2022 Anion gap [Moles/Vol] 8.0 mmol/L Normal 8.0-16.0 [facility] Comment on above: Result Comment: ANIO N GAP = Sodium -(Chloride + CO2) Performed By: #### E GFR1, ANION, CBCND, BMP ####[facility] [employer] [address] [place] [address] Anion Gapon 07-20-2022 Anion gap [Moles/Vol] 8.0 mmol/L 8.0 - 16.0 meq/L [facility] Comment on above: ANION GAP = Sodium - (Chloride + CO2) Performed at [facility] [address] [place] [address] BASIC METABOL PANELon 2022 Calcium [Mass/Vol] 7.7 mg/dL Low 8.5-10.5 [facility] Comment on above: Performed By: #### E GFR1, ANION, CBCND, BMP ####[place] [address] Chloride [Moles/Vol] 109 mmol/L Normal 98-111 [facility] Comment on above: Performed By: #### E GFR1, ANION, CBCND, BMP ####[employer] [address] [place] [address] CO2 [Moles/Vol] 25 mmol/L Normal 23-33 [facility] Comment on above: Performed By: #### E GFR1, ANION, CBCND, BMP ####[employer] [address] [place] [address] Creatinine [Mass/Vol] 2.1 mg/dL High 0.4-1.2 [facility] Comment on above: Performed By: #### E GFR1, ANION, CBCND, BMP ####[facility] [address] [place] [address] Glucose [Mass/Vol] 132 mg/dL High 70-108 [facility] Comment on above: Performed By: #### E GFR1, ANION, CBCND, BMP ####[facility] [address] [place] [address] Potassium [Moles/Vol] 4.2 mmol/L Normal 3.5-5.2 [facility] Comment on above: Performed By: #### E GFR1, ANION, CBCND, BMP ####[facility] [address] [place] [address] Sodium [Moles/Vol] 142 mmol/L Normal 135-145 [facility] Comment on above: Performed By: #### E GFR1, ANION, CBCND, BMP ####[facility] [address] [place] [address] Urea nitrogen [Mass/Vol] 30 mg/dL High 7-22 [facility] Comment on above: Performed By: #### E GFR1, ANION, CBCND, BMP ####[facility] [address] [place] [address] Basic metabolic 2000 panelon 07-20-2022 Calcium [Mass/Vol] 7.7 mg/dL Low 8.5 - 10. 5 mg/dL [facility] Comment on above: Performed at [facility] Medical Lab [address] [place] [address] Chloride [Moles/Vol] 109 mmol/L 98 - 11 1 meq/L [facility] CO2 [Moles/Vol] 25 mmol/L 23 - 33 meq/L [facility] Creatinine [Mass/Vol] 2.1 mg/dL High 0.4 - 1.2 mg/dL [facility] [employer] [facility] Glucose [Mass/Vol] 132 mg/dL High 70 - 108 mg/dL [facility] [employer] [facility] Potassium [Moles/Vol] 4.2 mmol/L 3.5 - 5.2 meq/L [facility] [employer] [facility] Sodium [Moles/Vol] 142 mmol/L 135 - 145 meq/L [email or web address] Urea nitrogen [Mass/Vol] 30 mg/dL High 7 - 22 mg/dL [email or web address] CBCon 07-20-2022 Erythrocyte distribution width (RBC) [Entitic vol] 49.7 fL High 35.0 - 45.0 fL [facility] Erythrocyte distribution width (RBC) [Ratio] 14.7 % High 11.5 - 14.5 % [facility] Hematocrit (Bld) [Volume fraction] 33.8 % Low 42.0 - 52.0 % [facility] Hemoglobin (Bld) [Mass/Vol] 11.2 g/dL Low [facility] Interpretation and review of laboratory results Abnormal [facility] MCH (RBC) [Entitic mass] 30.6 pg 26.0 - 33.0 pg [facility] MCHC (RBC) [Mass/Vol] 33.1 g/dL [facility] MCV (RBC) [Entitic vol] 92.3 fL 80.0 - 94.0 fL [facility] Platelet mean volume (Bld) [Entitic vol] 8.6 fL Low 9.4 - 12.4 fL [facility] Comment on above: Performed at [facility] [address] [place] [address] Platelets (Bld) [#/Vol] 180 10*3/uL [facility] RBC (Bld) [#/Vol] 3.66 10*6/uL Low [facility] WBC (Bld) [#/Vol] 7.3 10*3/uL [facility] CBC NO DIFFERENTIALon 2022 Erythrocyte distribution width (RBC) [Ratio] 14.7 % High 11.5-14.5 [facility] Comment on above: Performed By: #### E GFR1, ANION, CBCND, BMP ####[facility] [employer] [address] [place] [address] Hematocrit (Bld) [Volume fraction] 33.8 % Low 42.0-52.0 [facility] Comment on above: Performed By: #### E GFR1, ANION, CBCND, BMP ####[facility] [employer] [address] [place] [address] Hemoglobin (Bld) [Mass/Vol] 11.2 g/dL Low 14.0-18.0 [facility] Comment on above: Performed By: #### E GFR1, ANION, CBCND, BMP ####[address] [place] [address] MCH (RBC) [Entitic mass] 30.6 pg Normal 26.0-33.0 [facility] Comment on above: Performed By: #### E GFR1, ANION, CBCND, BMP ####[place] [address] MCHC (RBC) [Mass/Vol] 33.1 g/dL Normal 32.2-35.5 [facility] Comment on above: Performed By: #### E GFR1, ANION, CBCND, BMP ####[place] [address] MCV (RBC) [Entitic vol] 92.3 fL Normal 80.0-94.0 [facility] Comment on above: Performed By: #### E GFR1, ANION, CBCND, BMP ####[place] [address] PLATELET 180 thou/mm3 Normal 130-400 [facility] Comment on above: Performed By: #### E GFR1, ANION, CBCND, BMP ####[place] [address] Platelet mean volume (Bld) [Entitic vol] 8.6 fL Low 9.4-12.4 [facility] Comment on above: Performed By: #### E GFR1, ANION, CBCND, BMP ####[place] [address] RBC 3.66 mill/mm3 Low 4.70-6.10 [facility] Comment on above: Performed By: #### E GFR1, ANION, CBCND, BMP ####[address] [place] [address] RDW-SD 49.7 fL High 35.0-45.0 [facility] Comment on above: Performed By: #### E GFR1, ANION, CBCND, BMP ####[employer] [address] [place] [address] WBC 7.3 thou/mm3 Normal 4.8-10.8 [facility] Comment on above: Performed By: #### E GFR1, ANION, CBCND, BMP ####[employer] [address] [place] [address] FLUORO FOR SURGICAL PROCEDUR ESon 07-20-2022 FLUORO FOR SURGICAL PROCEDURES Radiology exam is complete. No Radiologist dictation. Please follow up with ordering provider. Normal [facility] Radiology exam is complete. No Radiologist dictation. Please follow up with ordering provider. [facility]IS CONSOLIDATED GFR, ESTIMATEDon 07-20-2022 GFR/1.73 sq M.predicted MDRD (S/P/Bld) [Vol rate/Area] 33 mL/min/{1.73_m2} Abnormal >60 [facility] Comment on above: Result Comment: Pedi atric [...] By: #### E GFR1, ANION, CBCND, BMP ####[employer] [address] [place] [address] GLUCOSE POCon 07-20-2022 Glucose [Mass/Vol] 153 mg/dL High 70-108 [facility] Comment on above: Performed By: #### P OCGL #### [facility] [address] [place] [address] Glucose [Mass/Vol] 165 mg/dL High 70-108 [facility] Comment on above: Performed By: #### P OCGL #### [facility] [address] [place] [address] Glomerular Filtration Rate, Estimatedon 07-20-2022 GFR/1.73 sq M.predicted MDRD (S/P/Bld) [Vol rate/Area] 33 mL/min/{1.73_m2} Abnormal - [facility] Comment on above: Pediatric calculator link https://www.kidney.org/professionals/kdoqi/gfr_calculatorped [...] that affects renal tubular secretion. Performed at [facility] [address] [place] [address] Glucose Auto test strip (Bld ) [Mass/Vol]on 07-20-2022 Glucose [Mass/Vol] 153 mg/dL High 70 - 108 mg/dl [facility] [employer] Comment on above: Performed at [facility] [address] [place] [address] Interpretation and review of laboratory results Abnormal [facility] Glucose [Mass/Vol] 165 mg/dL High 70 - 108 mg/dl [facility] [employer] Comment on above: Performed at [facility] [address] [place] [address] Interpretation and review of laboratory results Abnormal [facility] HEMOGLOBIN A1Con 07-20-2022 Glucose [Mass/Vol] 138 mg/dL High 70-126 [facility] Comment on above: Performed By: #### H -A1C #### [facility] [address] [place] [address] HbA1c (Bld) [Mass fraction] 6.6 % High 4.4-6.4 [facility] Comment on above: Performed By: #### H -A1C #### [facility] [employer] [address] [place] [address] HGB,HCTon 07-20-2022 Hematocrit (Bld) [Volume fraction] 33.2 % Low 42.0-52.0 [facility] Comment on above: Performed By: #### P OCGL #### [facility] [address] [place] [address] Hemoglobin (Bld) [Mass/Vol] 10.9 g/dL Low 14.0-18.0 [facility] Comment on above: Performed By: #### P OCGL #### [facility] [address] [place] [address] HbA1c HPLC (Bld) [Mass fract ion]on 07-20-2022 Glucose mean value Estimated from glycated hemoglobin Qn (Bld) 138 mg/dL High 70 - 126 mg/dL [facility] Comment on above: Performed at [facility] [address] [place] [address] HbA1c (Bld) [Mass fraction] 6.6 % High 4.4 - 6.4 % [facility] Interpretation and review of laboratory results Abnormal [facility] No Panel Informationon 07-20 Interpretation and review of laboratory results Abnormal [facility] XR CHEST PORTABLEon 07-21-19 XR CHEST PORTABLE Chest X-ray: 1 view. Indication: Pre-op. Comparison: None Findings: No focal consolidation, or pleural effusion. The cardiac silhouette is normal in size. Bony thorax is grossly intact. Spondylosis. IMPRESSION: Impression: No acute cardiopulmonary disease. This document has been electronically signed by: Leander Olsen MD on 07/19/2022 10:58 PM Interpreted by: eLander Olsen MD Signed by: Leander Olsen MD 07/19/22 Final result Normal [facility] XR LUMBAR SPINE (2-3 VIEWS)o n 07-20-2022 [...] Ralph Prescott MD 07/20/22 Final result Normal [facility] Postop appearance lumbar spine. This report has been created using voice recognition software. It may contain minor errors which are inherent in voice recognition technology. Final report electronically signed by Dr. Ralph Prescott on 07/20/2022 4:23 PM [facility] CONSOLIDATED LUMBAR SPINE 2 VIEWS: CLINICAL INFORMATION: fusion COMPARISON: Earlier film same date, 0914 hours. TECHNIQUE: Standard AP and lateral views of lumbar spine were obtained. FINDINGS: Posterior lumbar fusion has been performed from L2 to S1 with additional screws extending across both sacroiliac joints. Moderate multifocal degenerative changes are seen. The lumbar vertebra appear normally aligned. [facility] Ralph Austin MD - 07/20/2022 LUMBAR [...] Dr. Ralph Prescott on 07/20/2022 4:23 PM [employer] Phone: Radiology Study observation (narrative) [employer] Phone: XR LUMBAR SPINE (2-3 VIEWS)O rdered By: Ralph Prescott on 07-20-2022 [employer] Phone: XR LUMBAR SPINE 1 VWon 07-20 Localizer at L2. This report has been created using voice recognition software. It may contain minor errors which are inherent in voice recognition technology. Final report electronically signed by Dr. Simba Castle on 07/20/2022 12:20 PM [facility] Simba Rider MD - 07/20/2022 PROCEDURE: XR LUMBAR SPINE 1 VW CLINICAL INFORMATION: surgery . TECHNIQUE: Crosstable lateral portable done in the OR COMPARISON: No prior study. FINDINGS: Application Manager localizer overlies the pedicle of L2. IMPRESSION: Localizer at L2. This report has been created using voice recognition software. It may contain minor errors which are inherent in voice recognition technology. Final report electronically signed by Dr. Simba Castle on 07/20/2022 12:20 PM [employer] Phone: Radiology Study observation (narrative) [employer] Phone: XR LUMBAR SPINE 1 VWOrdered By: Simba Castle on 07-20-2022 [employer] Phone: ANION GAPon 07-19-2022 Anion gap [Moles/Vol] 10.0 mmol/L Normal 8.0-16.0 [facility] Comment on above: Result Comment: ANIO N GAP = Sodium -(Chloride + CO2) Performed By: #### C BCND, ANION, EGFR1, BMP #### [facility] [address] [place] [address] Anion Gapon 07-19-2022 Anion gap [Moles/Vol] 10.0 mmol/L 8.0 - 16.0 meq/L [facility] Comment on above: ANION GAP = Sodium - (Chloride + CO2) Performed at [facility] [address] [place] [address] BASIC METABOL PANELon 2022 Calcium [Mass/Vol] 7.9 mg/dL Low 8.5-10.5 [facility] Comment on above: Performed By: #### C BCND, ANION, EGFR1, BMP #### [facility] [address] [place] [address] Chloride [Moles/Vol] 107 mmol/L Normal 98-111 [facility] Comment on above: Performed By: #### C BCND, ANION, EGFR1, BMP #### [facility] [address] [place] [address] CO2 [Moles/Vol] 24 mmol/L Normal 23-33 [facility] Comment on above: Performed By: #### C BCND, ANION, EGFR1, BMP #### [facility] [address] [place] [address] Creatinine [Mass/Vol] 2.0 mg/dL High 0.4-1.2 [facility] Comment on above: Performed By: #### C BCND, ANION, EGFR1, BMP #### [facility] [address] [place] [address] Glucose [Mass/Vol] 231 mg/dL High 70-108 [facility] Comment on above: Performed By: #### C BCND, ANION, EGFR1, BMP #### [facility] [address] [place] [address] Potassium [Moles/Vol] 4.3 mmol/L Normal 3.5-5.2 [facility] Comment on above: Performed By: #### C BCND, ANION, EGFR1, BMP #### [facility] [employer] [address] [place] [address] Sodium [Moles/Vol] 141 mmol/L Normal 135-145 [facility] Comment on above: Performed By: #### C BCND, ANION, EGFR1, BMP #### [facility] [address] [place] [address] Urea nitrogen [Mass/Vol] 33 mg/dL High 7-22 [facility] Comment on above: Performed By: #### C BCND, ANION, EGFR1, BMP #### [facility] [employer] [address] [place] [address] Basic metabolic 2000 panelon 07-19-2022 Calcium [Mass/Vol] 7.9 mg/dL Low 8.5 - 10. 5 mg/dL [facility] Comment on above: Performed at [facility] [address] [place] [address] Chloride [Moles/Vol] 107 mmol/L 98 - 11 1 meq/L [employer] [facility] CO2 [Moles/Vol] 24 mmol/L 23 - 33 meq/L [employer] [facility] Creatinine [Mass/Vol] 2 mg/dL High 0.4 - 1.2 mg/dL [email or web address] [employer] Glucose [Mass/Vol] 231 mg/dL High 70 - 108 mg/dL [facility] Potassium [Moles/Vol] 4.3 mmol/L 3.5 - 5.2 meq/L [facility] Sodium [Moles/Vol] 141 mmol/L 135 - 145 meq/L [facility] Urea nitrogen [Mass/Vol] 33 mg/dL High 7 - 22 mg/dL [facility] CBCon 07-19-2022 Erythrocyte distribution width (RBC) [Entitic vol] 46.5 fL High 35.0 - 45.0 fL [facility] Erythrocyte distribution width (RBC) [Ratio] 13.7 % 11.5 - 14.5 % [facility] Hematocrit (Bld) [Volume fraction] 26.9 % Low 42.0 - 52.0 % [facility] Hemoglobin (Bld) [Mass/Vol] 8.8 g/dL Low [facility] Interpretation and review of laboratory results Abnormal [facility] MCH (RBC) [Entitic mass] 30.8 pg 26.0 - 33.0 pg [facility] MCHC (RBC) [Mass/Vol] 32.7 g/dL [facility] MCV (RBC) [Entitic vol] 94.1 fL High 80.0 - 94.0 fL [facility] Platelet mean volume (Bld) [Entitic vol] 9.1 fL Low 9.4 - 12.4 fL [facility] Comment on above: Performed at [facility] [address] [place] [address] Platelets (Bld) [#/Vol] 176 10*3/uL [facility] RBC (Bld) [#/Vol] 2.86 10*6/uL Low [facility] WBC (Bld) [#/Vol] 5.7 10*3/uL [facility] CBC NO DIFFERENTIALon 2022 Erythrocyte distribution width (RBC) [Ratio] 13.7 % Normal 11.5-14.5 [facility] Comment on above: Performed By: #### C BCND, ANION, EGFR1, BMP #### [facility] [address] [place] [address] Hematocrit (Bld) [Volume fraction] 26.9 % Low 42.0-52.0 [facility] Comment on above: Performed By: #### C BCND, ANION, EGFR1, BMP #### [place] [address] Hemoglobin (Bld) [Mass/Vol] 8.8 g/dL Low 14.0-18.0 [facility] Comment on above: Performed By: #### C BCND, ANION, EGFR1, BMP #### [place] [address] MCH (RBC) [Entitic mass] 30.8 pg Normal 26.0-33.0 [facility] Comment on above: Performed By: #### C BCND, ANION, EGFR1, BMP #### [place] [address] MCHC (RBC) [Mass/Vol] 32.7 g/dL Normal 32.2-35.5 [facility] Comment on above: Performed By: #### C BCND, ANION, EGFR1, BMP #### [place] [address] MCV (RBC) [Entitic vol] 94.1 fL High 80.0-94.0 [facility] Comment on above: Performed By: #### C BCND, ANION, EGFR1, BMP #### [place] [address] PLATELET 176 thou/mm3 Normal 130-400 [facility] Comment on above: Performed By: #### C BCND, ANION, EGFR1, BMP #### [place] [address] Platelet mean volume (Bld) [Entitic vol] 9.1 fL Low 9.4-12.4 [facility] Comment on above: Performed By: #### C BCND, ANION, EGFR1, BMP #### [place] [address] RBC 2.86 mill/mm3 Low 4.70-6.10 [facility] Comment on above: Performed By: #### C BCND, ANION, EGFR1, BMP #### [facility] [address] [place] [address] RDW-SD 46.5 fL High 35.0-45.0 [facility] Comment on above: Performed By: #### C BCND, ANION, EGFR1, BMP #### [facility] [address] [place] [address] WBC 5.7 thou/mm3 Normal 4.8-10.8 [facility] Comment on above: Performed By: #### C BCND, ANION, EGFR1, BMP #### [facility] [address] [place] [address] FERRITINon 07-19-2022 Ferritin [Mass/Vol] 105 ng/mL Normal 22-322 [facility] Comment on above: Performed By: #### H -A1C #### [employer] [address] [address] Ferritinon 07-19-2022 Ferritin IA [Mass/Vol] 105 ng/mL 22 - 322 ng/mL [facility] Comment on above: Performed at [facility] Medical Lab [address] [place] [address] Ferritin IA [Mass/Vol]on [facility] GFR, ESTIMATEDon 07-19-2022 GFR/1.73 sq M.predicted MDRD (S/P/Bld) [Vol rate/Area] 35 mL/min/{1.73_m2} Abnormal >60 [facility] Comment on above: Result Comment: Shayla atric [...] #### C BCND, ANION, EGFR1, BMP #### [facility] [address] [place] [address] GLUCOSE POCon 07-19-2022 Glucose [Mass/Vol] 254 mg/dL High 70-108 [facility] Comment on above: Performed By: #### P OCGL #### [facility] [address] [place], [place] [id number] Glomerular Filtration Rate, Estimatedon 07-19-2022 GFR/1.73 sq M.predicted MDRD (S/P/Bld) [Vol rate/Area] 35 mL/min/{1.73_m2} Abnormal - [facility] Comment on above: Pediatric calculator link https://www.kidney.org/professionals/kdoqi/gfr_calculatorped [...] that affects renal tubular secretion. Performed at [facility] [address] [place] [address] Glucose Auto test strip (Bld ) [Mass/Vol]on 07-19-2022 Glucose [Mass/Vol] 254 mg/dL High 70 - 108 mg/dl [email or web address] [employer] Comment on above: Performed at [facility] [address] [place] [address] Interpretation and review of laboratory results Abnormal [email or web address] Hemoglobin and Hematocrit pa smith (Bld)on 07-19-2022 Hematocrit (Bld) [Volume fraction] 33.2 % Low 42.0 - 52.0 % [facility] Comment on above: Performed at [facility] [address] [place] [address] Hemoglobin (Bld) [Mass/Vol] 10.9 g/dL Low [employer] Interpretation and review of laboratory results Abnormal [email or web address] IRONon 07-19-2022 Iron [Mass/Vol] 58 ug/dL Low 65-195 [facility] Comment on above: Performed By: #### P OCGL #### [facility] [address] [place] [address] Ironon 07-19-2022 Iron [Mass/Vol] 58 ug/dL Low 65 - 195 ug/dL [facility] Comment on above: Performed at [facility] [address] [place] [address] Iron [Mass/Vol]on 07-19-2022 Interpretation and review of laboratory results Abnormal [facility] LEUKO-REDUCED RCon 3 -1 LEUKOREDUCED RED CELLS [id number] transfused Normal [facility] Comment on above: Performed By: #### C BCND, ANION, EGFR1, BMP #### [facility] [address] [place] [address] -1 LEUKOREDUCED RED CELLS [id number] transfused Normal [facility] Comment on above: Performed By: #### C BCND, ANION, EGFR1, BMP #### [facility] [address] [place] [address] No Panel Informationon 07-19 Interpretation and review of laboratory results Abnormal [facility] PREPARE RBC (CROSSMATCH), 1 Unitson 07-19-2022 [id number] transfused [facility] [id number] transfused [facility] TYPE AND SCREENon 07-19-2022 ABO A [facility] Rh Factor Negative [facility] TYPE AND SCREEN CAPTUREon ABO CAPTURE A Normal [facility] Comment on above: Performed By: #### C BCND, ANION, EGFR1, BMP #### [employer] [address] [place] [address] INDIRECT GULSHAN CAPTURE Negative Normal [facility] Comment on above: Performed By: #### C BCND, ANION, EGFR1, BMP #### [facility] [address] [place] [address] RH CAPTURE (2 D CLONES) Negative Normal [facility] Comment on above: Performed By: #### C BCND, ANION, EGFR1, BMP #### [facility] [address] [place] [address] XR CHEST PORTABLEon 07-20-19 Impression: No acute cardiopulmonary disease. This document has been electronically signed by: Leander Olsen MD on 07/19/2022 10:58 PM [facility] Chest X-ray: 1 view. Indication: Pre-op. Comparison: None Findings: No focal consolidation, or pleural effusion. The cardiac silhouette is normal in size. Bony thorax is grossly intact. Spondylosis. [facility] Leander Olsen MD - 07/19/2022 Chest X-ray: 1 view. Indication: Pre-op. Comparison: None Findings: No focal consolidation, or pleural effusion. The cardiac silhouette is normal in size. Bony thorax is grossly intact. Spondylosis. IMPRESSION: Impression: No acute cardiopulmonary disease. This document has been electronically signed by: Leander Olsen MD on 07/19/2022 10:58 PM [facility] Phone: Radiology Study observation (narrative) [facility] Phone: XR CHEST PORTABLEOrdered By: Leander Olsen on 07-19-2022 [employer] Phone: Office Visiton 07-18-2022 Follow-up visit [id number] Omer Santos 1950 M Date Provider Department Center 07/18/2022 IRA [facility] Family History Problem Relation Age of Onset Coronary artery disease Father Other Father Heart attack Father Coronary artery disease Brother Heart attack Brother Other Brother Heart attack Paternal Grandfather Family Status - Relation Status Age at Father Brother Paternal Grandfather Level of Service:60781 OK OFFICE/OUTPATIENT ESTABLISHED MOD MDM 30-39 MIN Reason for Visit and Comments: Follow-up [617167] - 6 month CAD, HTN Pre-op Exam [811724] - May already be cleared by family doctor reviewing stress test. Normal [facility] PTH INTACTon 07-13-2022 PTH, Intact 54 pg/mL Normal 15-65 [facility] Comment on above: Performed By: #### P THINT #### [facility] [address] [address] [address] Sarah Sánchez FERRITINon 07-12-2022 Ferritin [Mass/Vol] 94.0 ng/mL Normal 26.0-388.0 [facility] Comment on above: Performed By: #### H BSANS #### [facility] [address] [place] [address] Dr. Sarah Sánchez HEMOGRAM AND PLATELon 2022 Hematocrit (Bld) [Volume fraction] 30.4 % Critically low 42.0-54.0 [facility] Comment on above: Performed By: #### U EDLFINO, RENAL, MG #### [facility] [address] [place] [address] Dr. Sarah Sánchez Hemoglobin (Bld) [Mass/Vol] 10.4 g/dL Critically low 14.0-18.0 [facility] Comment on above: Performed By: #### U DELFINO, RENAL, MG #### [facility] [address] [place] [address] Dr. Sarah Sánchez MCH (RBC) [Entitic mass] 31.0 pg Normal 25.9-34.0 [facility] Comment on above: Performed By: #### U DELFINO, RENAL, MG #### [facility] [address] [place] [address] Dr. Sarah Sánchez MCHC (RBC) [Mass/Vol] 34.2 g/dL Normal 29.9-35.2 [facility] Comment on above: Performed By: #### U DELFINO, RENAL, MG #### [facility] [address] [place] [address] Dr. Sarah Sánchez MCV (RBC) [Entitic vol] 90.5 fL Normal 80.0-94.0 [facility] Comment on above: Performed By: #### U DELFINO, RENAL, MG #### [facility] [address] [place] [address] Dr. Sarah Sánchez PLT 202 103/ul Normal 150-450 [facility] Comment on above: Performed By: #### U DELFINO, RENAL, MG #### [facility] [address] [address] [address] Sarah Sánchez RBC 3.36 106/ul Critically low 4.70-6.10 [facility] Comment on above: Performed By: #### U DELFINO, RENAL, MG #### [facility] [address] [place], [place] [address] Dr. Sarah Sánchez WBC 6.7 103/ul Normal 4.0-11.0 [facility] Comment on above: Performed By: #### U DELFINO, RENAL, MG #### [facility] [address] [place], [place] [address] Dr. Sarah Sánchez IRON AND TIBCon 07-12-2022 % SATURATION 30.1 % Normal [facility] Comment on above: Performed By: #### H BSANS #### [facility] [address] [address] [address] Sarah Sánchez Iron [Mass/Vol] 74.0 ug/dL Normal 65.0-175.0 [facility] Comment on above: Performed By: #### H BSANS #### [facility] [address] [address] [address] Sarah Sánchez TIBC DIRECT 246.0 ug/dL Critically low 250.0-450.0 [facility] Comment on above: Performed By: #### H BSANS #### [facility] [address] [address] [address] Sarah Sánchez MAGNESIUMon 07-12-2022 Magnesium [Mass/Vol] 1.1 mg/dL Critically low 1.8-2.4 [facility] Comment on above: Performed By: #### P THINT #### [facility] [address] [address] [address] Sarah Sánchez NM STRESS/REST MULTIon 07-12 NM STRESS/REST MULTI Patient: OMER SANTOS Exam Date: 07/12/2022 : 1950 Gender:M Ordering : DR RUBEN LUO . Admission #: [id number] Family : DR VADIM VERONICA M.D. Order #: [id number] CLICK HERE TO VIEW EXAM RADIOLOGY REPORT [...] Strickland M.D. on 07/12/2022 at 15:17 Normal [facility] RENAL FUNCTION PANELon 07-12 Albumin [Mass/Vol] 3.3 g/dL Critically low 3.4-5.0 [facility] Comment on above: Performed By: #### P THINT #### [facility] [address] [place] [address] Dr. Sarah Sánchez Calcium [Mass/Vol] 8.3 mg/dL Critically low 8.5-10.1 [facility] Comment on above: Performed By: #### P THINT #### [facility] [address] [address] [address] Sarah Sánchez Chloride [Moles/Vol] 107 mmol/L Normal 98-107 [facility] Comment on above: Performed By: #### P THINT #### [facility] [address] [place] [address] Dr. Sarah Sánchez CO2 [Moles/Vol] 26.4 mmol/L Normal 21.0-32.0 [facility] Comment on above: Performed By: #### P THINT #### [facility] [address] [address] [address] Sarah Sánchez Creatinine [Mass/Vol] 1.98 mg/dL Critically high 0.70-1.30 [facility] Comment on above: Performed By: #### P THINT #### [facility] [address] [address] [address] Sarah Sánchez EGFR-AF GUYANESE 40 mL/min/1.73m2 Critically low >=60 [facility] Comment on above: Performed By: #### P THINT #### [facility] [address] [place] [address] Dr. Sarah Sánchez EGFR-NON AF GUYANESE 33 mL/min/1.73m2 Critically low >=60 [facility] Comment on above: Performed By: #### P THINT #### [facility] [address] [place] [address] Dr. Sarah Sánchez Glucose [Mass/Vol] 149 mg/dL Critically high 74-106 [facility] Comment on above: Performed By: #### P THINT #### [facility] [address] [place] [address] Dr. Sarah Sánchez Phosphate [Mass/Vol] 4.0 mg/dL Normal 2.6-4.7 [facility] Comment on above: Performed By: #### P THINT #### [facility] [address] [address] [address] Sarah Sánchez Potassium [Moles/Vol] 4.5 mmol/L Normal 3.5-5.1 [facility] Comment on above: Performed By: #### P THINT #### [facility] [address] [address] [address] Sarah Sánchez Sodium [Moles/Vol] 141 mmol/L Normal 136-145 [facility] Comment on above: Performed By: #### P THINT #### [facility] [address] [place] [address] Dr. Sarah Sánchez Urea nitrogen [Mass/Vol] 29.0 mg/dL Critically high 7.0-18.0 [facility] Comment on above: Performed By: #### P THINT #### [facility] [address] [place] [address] Dr. Sarah Sánchez UA RANDOM W/MICROSCOPICon BACTERIA TRACE Abnormal NONE SEEN [facility] Comment on above: Performed By: #### C VDTBH #### [facility] [address] [place] [address] Dr. Sarah Sánchez Bilirubin Ql (U) Negative Normal NEGATIVE [facility] Comment on above: Performed By: #### C VDTBH #### [facility] [address] [place] [address] Dr. Sarah Sánchez CAST NONE SEEN Normal NONE SEEN [facility] Comment on above: Performed By: #### C VDTBH #### [facility] [address] [place] [address] Dr. Sarah Sánchez Clarity (U) CLEAR Normal CLEAR [facility] Comment on above: Performed By: #### C VDTBH #### [facility] [address] [place] [address] Dr. Sarah Sánchez Color (U) LT. YELLOW Normal YELLOW [facility] Comment on above: Performed By: #### C VDTBH #### [facility] [address] [place] [address] Dr. Sarah Sánchez Crystals LM Nom (Urine sed) NONE SEEN Normal NONE SEEN [facility] Comment on above: Performed By: #### C VDTBH #### [facility] [address] [place] [address] Dr. Sarah Sánchez Epithelial cells LM Ql (Urine sed) RARE Normal NONE SEEN /RARE [facility] Comment on above: Performed By: #### C VDTBH #### [facility] [address] [place] [address] Dr. Sarah Sánchez Glucose Ql (U) 100 mg/dl Abnormal NEGATIVE [facility] Comment on above: Performed By: #### C VDTBH #### [facility] [address] [place] [address] Dr. Sarah Sánchez Hemoglobin Ql (U) MODERATE Abnormal NEGATIVE [facility] Comment on above: Performed By: #### C VDTBH #### [facility] [address] [place] [address] Dr. Sarah Sánchez Ketones Ql (U) Negative Normal NEGATIVE [facility] Comment on above: Performed By: #### C VDTBH #### [facility] [address] [place] [address] Dr. Sarah Sánchez LEUKOCYTES Negative Normal NEGATIVE [facility] Comment on above: Performed By: #### C VDTBH #### [facility] [address] [place] [address] Dr. Sarah Sánchez MUCOUS NONE SEEN Normal NONE SEEN [facility] Comment on above: Performed By: #### C VDTBH #### [facility] [address] [place] [address] Dr. Sarah Sánchez Nitrite Ql (U) Negative Normal NEGATIVE [facility] Comment on above: Performed By: #### C VDTBH #### [facility] [address] [place] [address] Dr. Sarah Sánchez pH (U) 5.5 [pH] Normal 5-9 [facility] Comment on above: Performed By: #### C VDTBH #### [facility] [address] [place] [address] Dr. Sarah Sánchez RBC 2-5 Abnormal 0-2 [facility] Comment on above: Performed By: #### C VDTBH #### [facility] [address] [place] [address] Dr. Sarah Sánchez SPEC GRAVITY 1.025 Normal 1.005-<=1.02 5 [facility] Comment on above: Performed By: #### C VDTBH #### [facility] [address] [place] [address] Dr. Sarah Sánchez UA PROTEIN >300 Abnormal NEGATIVE/ TRACE [facility] Comment on above: Performed By: #### C VDTBH #### [facility] [address] [place] [address] Dr. Sarah Sánchez Urobilinogen Qn (U) 0.2 {Stevie'U}/dL Normal 0.2 - 1. 0 [facility] Comment on above: Performed By: #### C VDTBH #### [facility] [address] [place] [address] Dr. Sarah Sánchez WBC NONE SEEN Normal NONE SEEN [facility] Comment on above: Performed By: #### C VDTBH #### [facility] [address] [address] [address] Sarah Sánchez URINE T PROTEIN CREAT RATIOo n 07-12-2022 Protein (U) [Mass/Vol] 901.3 mg/dL Critically high <=12.0 [facility] Comment on above: Performed By: #### C VDTBH #### [facility] [address] [place] [address] Dr. Sarah Sánchez UR PROT CREAT RAT 7.26 Normal [facility] Comment on above: Performed By: #### C VDTBH #### [facility] [address] [place] [address] Dr. Sarah Sánchez URINE CREAT 124.19 mg/dL Normal 20.00-300.00 [facility] Comment on above: Performed By: #### C VDTBH #### [facility] [address] [place] [address] Dr. Sarah Sánchez VITAMIN D 25 OHon 07-12-2022 VIT D 25-OH 24.7 ng/mL Normal [facility] Comment on above: Performed By: #### H BSANS #### [facility] [address] [place] [address] Dr. Sarah Sánchez VIT D RANGES SEE BELOW Normal [facility] Comment on above: Result Comment: <20 ng/mL Vit D deficient 20 - <30 ng/mL Vit D insufficient 30 - 100 ng/mL Vit D sufficient >100 ng/mL Potential Toxicity Performed By: #### H BSANS #### [facility] [address] [place] [address] Dr. Sarah Sánchez XR COMPARISON OF OUTSIDE QUEENIE MSon 2022 XR COMPARISON OF OUTSIDE FILMS Radiology exam is complete. No Radiologist dictation. Please follow up with ordering provider. Normal [facility] Radiology exam is complete. No Radiologist dictation. Please follow up with ordering provider. [facility] CBC AUTO DIFFon 07-02-2022 BASO # 0.0 103/ul Normal 0.0-0.1 [facility] Comment on above: Performed By: #### U DELFINO, RENAL, MG #### [facility] [address] [address] [address] Sarah Sánchez Basophils/100 WBC (Bld) 0.5 % Normal 0.2-2.0 [facility] Comment on above: Performed By: #### U DELFINO, RENAL, MG #### [facility] [address] [place] [address] Dr. Sarah Sánchez EO # 0.2 103/ul Normal 0.0-0.7 [facility] Comment on above: Performed By: #### U DELFINO, RENAL, MG #### [facility] [address] [address] [address] Sarah Sánchez Eosinophils/100 WBC (Bld) 3.4 % Normal 0.9-7.0 [facility] Comment on above: Performed By: #### U DELFINO, RENAL, MG #### [facility] [address] [place] [address] Dr. Sarah Sánchez Erythrocyte distribution width (RBC) [Ratio] 13.7 % Normal 11.0-15.0 [facility] Comment on above: Performed By: #### U DELFINO, RENAL, MG #### [facility] [address] [place] [address] Dr. Sarah Sánchez Hematocrit (Bld) [Volume fraction] 27.4 % Critically low 42.0-54.0 [facility] Comment on above: Performed By: #### U DELFINO, RENAL, MG #### [facility] [address] [place] [address] Dr. Sarah Sánchez Hemoglobin (Bld) [Mass/Vol] 9.1 g/dL Critically low 14.0-18.0 [facility] Comment on above: Performed By: #### U DELFINO, RENAL, MG #### [facility] [address] [address] [address] Sarha Sánchez IG # 0.05 10e3/ul Critically high 0.00-0.03 [facility] Comment on above: Performed By: #### U DELFINO, RENAL, MG #### [facility] [address] [address] [address] Sarah Sánchez IG % 0.8 % Critically high 0.0-0.5 [facility] Comment on above: Performed By: #### U DELFINO, RENAL, MG #### [facility] [address] [address] [address] Sarah Sánchez LYMPH # 1.3 103/ul Normal 1.2-3.8 [facility] Comment on above: Performed By: #### U DELFINO, RENAL, MG #### [facility] [address] [address] [address] Sarah Sánchez Lymphocytes/100 WBC (Bld) 20.3 % Critically low 20.5-60.0 [facility] Comment on above: Performed By: #### U DELFINO, RENAL, MG #### [facility] [address] [address] [address] Sarah Sánchez MANUAL DIFF REQ NO Normal [facility] Comment on above: Performed By: #### U DELFINO, RENAL, MG #### [facility] [address] [address] [address] Sarah Sánchez MCH (RBC) [Entitic mass] 30.2 pg Normal 25.9-34.0 [facility] Comment on above: Performed By: #### U DELFINO, RENAL, MG #### [facility] [address] [address] [address] Sarah Sánchez MCHC (RBC) [Mass/Vol] 33.2 g/dL Normal 29.9-35.2 [facility] Comment on above: Performed By: #### U DELFINO, RENAL, MG #### [facility] [address] [address] [address] Sarah Sánchez MCV (RBC) [Entitic vol] 91.0 fL Normal 80.0-94.0 [facility] Comment on above: Performed By: #### U DELFINO, RENAL, MG #### [facility] [address] [address] [address] Sarah Sánchez MONO # 0.4 103/ul Normal 0.3-0.8 [facility] Comment on above: Performed By: #### U DELFINO, RENAL, MG #### [facility] [address] [address] [address] Sarah Sánchez Monocytes/100 WBC (Bld) 6.7 % Normal 1.7-12.0 [facility] Comment on above: Performed By: #### U DELFINO, RENAL, MG #### [facility] [address] [place] [address] Dr. Sarah Sánchez NEUT # 4.5 103/ul Normal 1.4-6.5 [facility] Comment on above: Performed By: #### U DELFINO, RENAL, MG #### [facility] [address] [place] [address] Dr. Sarah Sánchez Neutrophils/100 WBC (Bld) 68.3 % Normal 43.0-75.0 [facility] Comment on above: Performed By: #### U DELFINO, RENAL, MG #### [facility] [address] [place] [address] Dr. Sarah Sánchez Platelet mean volume (Bld) [Entitic vol] 9.7 fL Normal 9.5-13.5 [facility] Comment on above: Performed By: #### U DELFINO, RENAL, MG #### [facility] [address] [place] [address] Dr. Sarah Sánchez PLT 142 103/ul Critically low 150-450 [facility] Comment on above: Performed By: #### U DELFINO, RENAL, MG #### [facility] [address] [place] [address] Dr. Sarah Sánchez RBC 3.01 106/ul Critically low 4.70-6.10 [facility] Comment on above: Performed By: #### U DELFINO, RENAL, MG #### [facility] [address] [place] [address] Dr. Sarah Sánchez WBC 6.5 103/ul Normal 4.0-11.0 [facility] Comment on above: Performed By: #### U DELFINO, RENAL, MG #### [facility] [address] [place] [address] Dr. Sarah Sánchez MRSA NARES #1on 07-02-2022 MRSA NARES #1 Culture Observations: NO GROWTH OF MRSA OR MSSA AT 48 HOURS. Normal [facility] Comment on above: Performed By: #### P THINT #### [facility] [address] [place] [address] Dr. Sarah Sánchez MRSA NARES #2on 07-02-2022 MRSA NARES #2 Culture Observations: NO GROWTH OF MRSA OR MSSA AT 48 HOURS. Normal [facility] Comment on above: Performed By: #### P THINT #### [facility] [address] [place] [address] Dr. Sarah Sánchez PROF CHEM 8 (BAS METB)on Anion gap [Moles/Vol] 12.8 mmol/L Normal [facility] Comment on above: Performed By: #### H BSANS #### [facility] [address] [place] [address] Dr. Sarah Sánchez Calcium [Mass/Vol] 8.0 mg/dL Critically low 8.5-10.1 [facility] Comment on above: Performed By: #### H BSANS #### [facility] [address] [place] [address] Dr. Sarah Sánchez Chloride [Moles/Vol] 113 mmol/L Critically high 98-107 [facility] Comment on above: Performed By: #### H BSANS #### [facility] [address] [place] [address] Dr. Sarah Sánchez CO2 [Moles/Vol] 21.9 mmol/L Normal 21.0-32.0 [facility] Comment on above: Performed By: #### H BSANS #### [facility] [address] [place] [address] Dr. Sarah Sánchez Creatinine [Mass/Vol] 2.49 mg/dL Critically high 0.70-1.30 [facility] Comment on above: Performed By: #### H BSANS #### [facility] [address] [address] [address] Sarah Sánchez EGFR-AF GUYANESE 31 mL/min/1.73m2 Critically low >=60 [facility] Comment on above: Performed By: #### H BSANS #### [facility] [address] [address] [address] Sarah Sánchez EGFR-NON AF GUYANESE 26 mL/min/1.73m2 Critically low >=60 [facility] Comment on above: Performed By: #### H BSANS #### [facility] [address] [address] [address] Sarah Sánchez Glucose [Mass/Vol] 153 mg/dL Critically high 74-106 [facility] Comment on above: Performed By: #### H BSANS #### [facility] [address] [address] [address] Sarah Sánchez Potassium [Moles/Vol] 4.7 mmol/L Normal 3.5-5.1 [facility] Comment on above: Performed By: #### H BSANS #### [facility] [address] [address] [address] Sarah Sánchez Sodium [Moles/Vol] 143 mmol/L Normal 136-145 [facility] Comment on above: Performed By: #### H BSANS #### [facility] [address] [address] [address] Sarah Sánchez Urea nitrogen [Mass/Vol] 50.0 mg/dL Critically high 7.0-18.0 [facility] Comment on above: Performed By: #### H BSANS #### [facility] [address] [address] [address] Sarah Sánchez Urea nitrogen/Creatinine [Mass ratio] 20.1 mg/mg Normal [facility] Comment on above: Performed By: #### H BSANS #### [facility] [address] [address] [address] Sarah Sánchez PROTIMEon 07-02-2022 INR Coag (PPP) [Relative time] 0.98 {INR} Normal [facility] Comment on above: Performed By: #### U RTPCR #### [facility] [address] [place] [address] Dr. Sarah Sánchez INR GUIDELINES SEE BELOW Normal [facility] Comment on above: Result Comment: DARIUS RED INR: 2.0 - 3.0 CONDITIONS NOT LISTED BELOW 2.5 - 3.5 FOR PROSTHETIC HEART VALVE REPLACEMENT 2.5 - 3.5 RECURRENT THROMBOSIS Performed By: #### U RTPCR #### [facility] [address] [address] [address] Sarah Sánchez PT Coag (PPP) [Time] 10.4 s Normal 9.0-11.6 [facility] Comment on above: Performed By: #### U RTPCR #### [facility] [address] [place] [address] Dr. Sarah Sánchez PTTon 07-02-2022 aPTT Coag (Bld) [Time] 20.5 s Critically low 22.3-36.2 [facility] Comment on above: Performed By: #### U RTPCR #### [facility] [address] [place] [address] Dr. Sarah Sánchez XR CHEST 2 Von [...] DIANE DUNCAN Date: 2022-07-02 09:05 Normal [facility] HEMOGRAM AND PLATELon 2022 Hematocrit (Bld) [Volume fraction] 28.5 % Critically low 42.0-54.0 [facility] Comment on above: Performed By: #### U RTPCR #### [facility] [address] [place] [address] Dr. Sarah Sánchez Hemoglobin (Bld) [Mass/Vol] 10.1 g/dL Critically low 14.0-18.0 [facility] Comment on above: Performed By: #### U RTPCR #### [facility] [address] [place] [address] Dr. Sarah Sánchez MCH (RBC) [Entitic mass] 31.3 pg Normal 25.9-34.0 [facility] Comment on above: Performed By: #### U RTPCR #### [facility] [address] [place] [address] Dr. Sarah Sánchez MCHC (RBC) [Mass/Vol] 35.4 g/dL Critically high 29.9-35.2 [facility] Comment on above: Performed By: #### U RTPCR #### [facility] [address] [place] [address] Dr. Sarah Sánchez MCV (RBC) [Entitic vol] 88.2 fL Normal 80.0-94.0 [facility] Comment on above: Performed By: #### U RTPCR #### [facility] [address] [place] [address] Dr. Sarah Sánchez PLT 171 103/ul Normal 150-450 [facility] Comment on above: Performed By: #### U RTPCR #### [facility] [address] [place] [address] Dr. Sarah Sánchez RBC 3.23 106/ul Critically low 4.70-6.10 [facility] Comment on above: Performed By: #### U RTPCR #### [facility] [address] [place] [address] Dr. Sarah Sánchez WBC 8.1 103/ul Normal 4.0-11.0 [facility] Comment on above: Performed By: #### U RTPCR #### [facility] [address] [place] [address] Dr[address] Sarah Sánchez CT LUMBAR SPINE WO CONTRASTo n 06-04-2022 [...] neural foraminal stenosis. At L2-L3 there is ukpd-ov-[id number] bilateral neural foraminal stenosis. At L3-L4 mild [...] Grabiel Sutton MD 06/04/22 Final result Normal [facility] CT THORACIC SPINE WO CONTRAS Ton [...] disc degenerative changes with bilateral facet arthropathy. Peqy-ic-akluttvr right neural foraminal stenosis. Advanced disc degenerative changes T9-T10 with eljs-hg-aokpszeq right neural foraminal stenoses. At T10-T11 there [...] Grabiel Sutton MD 06/04/22 Final result Normal [facility] DEXA BONE DENSITY AXIAL SKEL ETONon 05-30-2022 DEXA BONE DENSITY AXIAL SKELETON EXAMINATION: BONE DENSITOMETRY 05/30/2022 11:17 am TECHNIQUE: A bone density dual x-ray absorptiometry (DXA) scan was performed of the lumbar spine and left hip on a [employer] system. COMPARISON: None. HISTORY: ORDERING SYSTEM PROVIDED [...] Rakesh Atwood DO 05/30/22 Final result Normal [facility] Normal bone mineral density by WHO [...] have additional risk factors. Template code: [id number] [facility] EXAMINATION: BONE DENSITOMETRY 05/30/2022 11:17 am TECHNIQUE: A bone density dual x-ray absorptiometry (DXA) scan was performed of the lumbar spine and left hip on a [employer] system. COMPARISON: None. HISTORY: ORDERING SYSTEM PROVIDED HISTORY: Osteopenia of lumbar spine Gender: M Age: 71 y/o FINDINGS: LUMBAR SPINE: L1-L4 BMD: 2.579 g/cm2 T-score: 11.3 Z-score: 11.9 LEFT TOTAL HIP: BMD: 1.212 g/cm2 T-score: 0.8 Z-score: 1.5 LEFT FEMORAL NECK: BMD: 1.204 g/cm2 T-score: 1.0 Z-score: 2.3 FRAX: Not Indicated. [facility] Rakesh Atwood DO - 05/30/2022 EXAMINATION: BONE DENSITOMETRY 05/30/2022 11:17 am TECHNIQUE: A bone density dual x-ray absorptiometry (DXA) scan was performed of the lumbar spine and left hip on a [employer] system. COMPARISON: None. HISTORY: ORDERING SYSTEM PROVIDED [...] have additional risk factors. Template code: [id number] [employer] Phone: Radiology Study observation (narrative) [employer] Phone: DEXA BONE DENSITY AXIAL SKEL ETONOrdered By: Rakesh Atwood on 05-30-2022 [employer] Phone: MRI LUMBAR SPINE WO CONTRAST on [...] L3-L4: Retrolisthesis and facet hypertrophy resulting in jhnb-iy-gtyrejpx right and moderate to severe left-sided neural [...] John Vega MD 05/08/22 Final result Normal [facility] Degenerative and operative changes as detailed above. Nerve root impingement at L4-5 and L5-S1. [facility] CONSOLID[facility] EXAMINATION: MRI OF THE LUMBAR [...] L3-L4: Retrolisthesis and facet hypertrophy resulting in dwmk-cl-hcumqzno right and moderate to severe left-sided neural [...] impingement of both exiting L5 nerve roots. [facility] John Vega MD - 05/08/2022 EXAMINATION: [...] L3-L4: Retrolisthesis and facet hypertrophy resulting in nxmo-bb-amnwnpoh right and moderate to severe left-sided neural [...] Nerve root impingement at L4-5 and L5-S1. [employer] Phone: Radiology Study observation (narrative) [facility] LUMBAR SPINE WO CONTRAST Ordered By: John Vega on 05-08-2022 [facility] [employer] Phone: PTH INTACTon 05-08-2022 PTH, Intact 81 pg/mL Critically high 15-65 [facility] Comment on above: Performed By: #### U DELFINO, RENAL, MG #### [facility] [address] [address] [address] Sarah Sánchez FERRITINon 05-07-2022 Ferritin [Mass/Vol] 96.0 ng/mL Normal 26.0-388.0 [facility] Comment on above: Performed By: #### U RTPCR #### [facility] [address] [address] [address] Sarah Sánchez HEMOGRAM AND PLATELon 2022 Hematocrit (Bld) [Volume fraction] 24.6 % Critically low 42.0-54.0 [facility] Comment on above: Performed By: #### U DELFINO, RENAL, MG #### [facility] [address] [address] [address] Sarah Sánchez Hemoglobin (Bld) [Mass/Vol] 8.7 g/dL Critically low 14.0-18.0 [facility] Comment on above: Performed By: #### U DELFINO, RENAL, MG #### [facility] [address] [place] [address] Dr. Sarah Sánchez MCH (RBC) [Entitic mass] 31.2 pg Normal 25.9-34.0 [facility] Comment on above: Performed By: #### U DELFINO, RENAL, MG #### [facility] [address] [address] [address] Sarah Sánchez MCHC (RBC) [Mass/Vol] 35.4 g/dL Critically high 29.9-35.2 [facility] Comment on above: Performed By: #### U DELFINO, RENAL, MG #### [facility] [address] [place] [address] Dr. Sarah Sánchez MCV (RBC) [Entitic vol] 88.2 fL Normal 80.0-94.0 [facility] Comment on above: Performed By: #### U DELFINO, RENAL, MG #### [facility] [address] [place] [address] Dr. Sarah Sánchez PLT 204 103/ul Normal 150-450 [facility] Comment on above: Performed By: #### U DELFINO, RENAL, MG #### [facility] [address] [place] [address] Dr. Sarah Sánchez RBC 2.79 106/ul Critically low 4.70-6.10 [facility] Comment on above: Performed By: #### U DELFINO, RENAL, MG #### [facility] [address] [place] [address] Dr. Sarah Sánchez WBC 6.9 103/ul Normal 4.0-11.0 [facility] Comment on above: Performed By: #### U DELFINO, RENAL, MG #### [facility] [address] [place] [address] Dr. Sarah Sánchez IRON AND TIBCon 05-07-2022 % SATURATION 28.3 % Normal [facility] Comment on above: Performed By: #### U RTPCR #### [facility] [address] [address] [address] Sarah Sánchez Iron [Mass/Vol] 72.0 ug/dL Normal 65.0-175.0 [facility] Comment on above: Performed By: #### U RTPCR #### [facility] [address] [place] [address] Dr. Sarah Sánchez TIBC DIRECT 254.0 ug/dL Normal 250.0-450.0 [facility] Comment on above: Performed By: #### U RTPCR #### [facility] [address] [place] [address] Dr. Sarah Sánchez MAGNESIUMon 05-07-2022 Magnesium [Mass/Vol] 1.7 mg/dL Critically low 1.8-2.4 [facility] Comment on above: Performed By: #### H BSANS #### [facility] [address] [place] [address] Dr. Sarah Sánchez RENAL FUNCTION PANELon 05-07 Albumin [Mass/Vol] 3.2 g/dL Critically low 3.4-5.0 [facility] Comment on above: Performed By: #### C VDTBH #### [facility] [address] [place] [address] Dr. Sarah Sánchez Calcium [Mass/Vol] 8.5 mg/dL Normal 8.5-10.1 [facility] Comment on above: Performed By: #### C VDTBH #### [facility] [address] [place] [address] Dr. Sarah Sánchez Chloride [Moles/Vol] 106 mmol/L Normal 98-107 [facility] Comment on above: Performed By: #### C VDTBH #### [facility] [address] [place] [address] Dr. Sarah Sánchez CO2 [Moles/Vol] 28.1 mmol/L Normal 21.0-32.0 [facility] Comment on above: Performed By: #### C VDTBH #### [facility] [address] [place] [address] Dr. Sarah Sánchez Creatinine [Mass/Vol] 2.10 mg/dL Critically high 0.70-1.30 [facility] Comment on above: Performed By: #### C VDTBH #### [facility] [address] [address] [address] Sarah Sánchez EGFR-AF GUYANESE 38 mL/min/1.73m2 Critically low >=60 [facility] Comment on above: Performed By: #### C VDTBH #### [facility] [address] [address] [address] Sarah Sánchez EGFR-NON AF GUYANESE 31 mL/min/1.73m2 Critically low >=60 [facility] Comment on above: Performed By: #### C VDTBH #### [facility] [address] [place] [address] Dr. Sarah Sánchez Glucose [Mass/Vol] 141 mg/dL Critically high 74-106 [facility] Comment on above: Performed By: #### C VDTBH #### [facility] [address] [place] [address] Dr. Sarah Sánchez Phosphate [Mass/Vol] 4.1 mg/dL Normal 2.6-4.7 [facility] Comment on above: Performed By: #### C VDTBH #### [facility] [address] [place] [address] Dr. Sarah Sánchez Potassium [Moles/Vol] 5.2 mmol/L Critically high 3.5-5.1 [facility] Comment on above: Performed By: #### C VDTBH #### [facility] [address] [place] [address] Dr. Sarah Sánchez Sodium [Moles/Vol] 141 mmol/L Normal 136-145 [facility] Comment on above: Performed By: #### C VDTBH #### [facility] [address] [place] [address] Dr. Sarah Sánchez Urea nitrogen [Mass/Vol] 34.0 mg/dL Critically high 7.0-18.0 [facility] Comment on above: Performed By: #### C VDTBH #### [facility] [address] [address] [address] Sarah Sánchez UA RANDOM W/MICROSCOPICon BACTERIA NONE SEEN Normal NONE SEEN [facility] Comment on above: Performed By: #### U AMIC #### [facility] [address] [address] [address] Sarah Sánchez Bilirubin Ql (U) Negative Normal NEGATIVE [facility] Comment on above: Performed By: #### U AMIC #### [facility] [address] [address] [address] Sarah Sánchez CAST NONE SEEN Normal NONE SEEN [facility] Comment on above: Performed By: #### U AMIC #### [facility] [address] [place] [address] Dr. Sarah Sánchez Clarity (U) CLEAR Normal CLEAR [facility] Comment on above: Performed By: #### U AMIC #### [facility] [address] [place] [address] Dr. Sarah Sánchez Color (U) LT. YELLOW Normal YELLOW [facility] Comment on above: Performed By: #### U AMIC #### [facility] [address] [address] [address] Sarah Sánchez Crystals LM Nom (Urine sed) NONE SEEN Normal NONE SEEN [facility] Comment on above: Performed By: #### U AMIC #### [facility] [address] [place] [address] Dr. Sarah Sánchez Epithelial cells LM Ql (Urine sed) FEW Abnormal NONE SEEN /RARE [facility] Comment on above: Performed By: #### U AMIC #### [facility] [address] [place] [address] Dr. Sarah Sánchez Glucose Ql (U) Negative Normal NEGATIVE [facility] Comment on above: Performed By: #### U AMIC #### [facility] [address] [place] [address] Dr. Sarah Sánchez Hemoglobin Ql (U) SMALL Abnormal NEGATIVE [facility] Comment on above: Performed By: #### U AMIC #### [facility] [address] [place] [address] Dr. Sarah Sánchez Ketones Ql (U) Negative Normal NEGATIVE [facility] Comment on above: Performed By: #### U AMIC #### [facility] [address] [place] [address] Dr. Sarah Sánchez LEUKOCYTES Negative Normal NEGATIVE [facility] Comment on above: Performed By: #### U AMIC #### [facility] [address] [place] [address] Dr. Sarah Sánchez MUCOUS SMALL Abnormal NONE SEEN [facility] Comment on above: Performed By: #### U AMIC #### [facility] [address] [place] [address] Dr. Sarah Sánchez Nitrite Ql (U) Negative Normal NEGATIVE [facility] Comment on above: Performed By: #### U AMIC #### [facility] [address] [place] [address] Dr. Sarah Sánchez pH (U) 5.5 [pH] Normal 5-9 [facility] Comment on above: Performed By: #### U AMIC #### [facility] [address] [place] [address] Dr. Sarah Sánchez RBC 0-2 Normal 0-2 [facility] Comment on above: Performed By: #### U AMIC #### [facility] [address] [place] [address] Dr. Sarah Sánchez SPEC GRAVITY 1.020 Normal 1.005-<=1.02 5 [facility] Comment on above: Performed By: #### U AMIC #### [facility] [address] [place] [address] Dr. Sarah Sánchez UA PROTEIN >300 Abnormal NEGATIVE/ TRACE [facility] Comment on above: Performed By: #### U AMIC #### [facility] [address] [place] [address] Dr. Sarah Sánchez Urobilinogen Qn (U) 0.2 {Stevie'U}/dL Normal 0.2 - 1. 0 [facility] Comment on above: Performed By: #### U AMIC #### [facility] [address] [place] [address] Dr. Sarah Sánchez WBC NONE SEEN Normal NONE SEEN [facility] Comment on above: Performed By: #### U AMIC #### [facility] [address] [place] [address] Dr. Sarah Sánchez URIC ACID SERUMon 05-07-2022 Urate [Mass/Vol] 6.6 mg/dL Normal 3.5-7.2 [facility] Comment on above: Performed By: #### C VDTBH #### [facility] [address] [address] [address] Sarah Sánchez URINE T PROTEIN CREAT RATIOo n 05-07-2022 Protein (U) [Mass/Vol] 422.7 mg/dL Critically high <=12.0 [facility] Comment on above: Performed By: #### U DELFINO, RENAL, MG #### [facility] [address] [place] [address] Dr. Sarah Sánchez UR PROT CREAT RAT 4.90 Normal [facility] Comment on above: Performed By: #### U DELFINO, RENAL, MG #### [facility] [address] [place] [address] Dr. Sarah Sánchez URINE CREAT 86.31 mg/dL Normal 20.00-300.00 [facility] Comment on above: Performed By: #### U DELFINO, RENAL, MG #### [facility] [address] [place] [address] Dr. Sarah Sánchez VIT B12 AND FOLATEon 023 Cobalamin (Vitamin B12) [Mass/Vol] 824.0 pg/mL Normal 193.0-986.0 [facility] Comment on above: Performed By: #### U RTPCR #### [facility] [address] [address] [address] Sarah Sánchez FOLATE 21.80 ng/mL Normal 8.60-58.90 [facility] Comment on above: Performed By: #### U RTPCR #### [facility] [address] [place] [address] Dr. Sarah Sánchez VITAMIN D 25 OHon 05-07-2022 VIT D 25-OH 21.5 ng/mL Normal [facility] Comment on above: Performed By: #### U RTPCR #### [facility] [address] [address] [address] Sarah Sánchez VIT D RANGES SEE BELOW Normal [facility] Comment on above: Result Comment: <20 ng/mL Vit D deficient 20 - <30 ng/mL Vit D insufficient 30 - 100 ng/mL Vit D sufficient >100 ng/mL Potential Toxicity Performed By: #### U RTPCR #### [facility] [address] [address] [address] Sarah Sánchez Glucose Glucometer (BldC) [M ass/Vol]Ordered By: Orlando Beaver on 04-16-2022 Glucose [Mass/Vol] 150 mg/dL [facility] Comment on above: Random Glucose Refer ence Range is dependent on time and content of last meal. Glucose of more than 200 mg/dL in a nonstressed, ambulatory subject supports the diagnosis of Diabetes Mellitus. GLYCOHEMOGLOBIN A1Con 2022 ADA RECOMMENDATION SEE BELOW Normal [facility] Comment on above: Result Comment: ADA RECOMMENDED LIMIT 4.0 - 6.0 ADA THERAPEUTIC TARGET < 7.0 ACTION SUGGESTED > 7.0 Performed By: #### H BSANS #### [facility] [address] [address] [address] Sarah Sánchez Glucose [Mass/Vol] 177 mg/dL Normal [facility] Comment on above: Performed By: #### H BSANS #### [facility] [address] [address] [address] Sarah Sánchez HbA1c (Bld) [Mass fraction] 7.8 % Critically high 4.5-6.2 [facility] Comment on above: Performed By: #### H BSANS #### [facility] [address] [address] [address] Sarah Sánchez LIPID PROFILEon 04-13-2022 CHOL-HDL RATIO NORM SEE BELOW Normal [facility] Comment on above: Result Comment: 3.3 - 4.4 LOW RISK 4.4 - 7.1 AVERAGE RISK 7.1 - 11.0 MODERATE RISK >11.0 HIGH RISK Performed By: #### U RTPCR #### [facility] [address] [address] [address] Sarah Sánchez Cholesterol [Mass/Vol] 124 mg/dL Normal <=200 [facility] Comment on above: Performed By: #### U RTPCR #### [facility] [address] [address] [address] Sarah Sánchez Cholesterol in HDL [Mass/Vol] 38 mg/dL Critically low 40-60 [facility] Comment on above: Performed By: #### U RTPCR #### [facility] [address] [address] [address] Sarah Sánchez Cholesterol in LDL [Mass/Vol] 51.8 mg/dL Normal [facility] Comment on above: Performed By: #### U RTPCR #### [facility] [address] [address] [address] Sarah Sánchez Cholesterol.total/Chol esterol in HDL [Mass ratio] 3.3 {ratio} Normal [facility] Comment on above: Performed By: #### U RTPCR #### [facility] [address] [address] [address] Sarah Sánchez HDL NORMAL > or = 60 mg/dl - LOW CARDIOVASCULAR RISK <40 mg/dl - HIGH CARDIOVASCULAR RISK Normal [facility] Comment on above: Performed By: #### U RTPCR #### [facility] [address] [address] [address] Sarah Sánchez LDL CALC NORMAL SEE BELOW Normal [facility] Comment on above: Result Comment: <100 mg/dl OPTIMAL 100 - 129 mg/dl NEAR OR ABOVE OPTIMAL 130 - 159 mg/dl BORDERLINE HIGH 160 - 189 mg/dl HIGH >190 mg/dl VERY HIGH Performed By: #### U RTPCR #### [facility] [address] [address] [address] Sarah Sánchez Triglyceride [Mass/Vol] 171 mg/dL Critically high <=150 [facility] Comment on above: Performed By: #### U RTPCR #### [facility] [address] [address] [address] Sarah Sánchez VLDL CALC 34.2 mg/dL Normal [facility] Comment on above: Performed By: #### U RTPCR #### [facility] [address] [address] [address] Sarah Sánchez PROF 14(COMP METB)on 023 Albumin [Mass/Vol] 2.9 g/dL Critically low 3.4-5.0 [facility] Comment on above: Performed By: #### U RTPCR #### [facility] [address] [place] [address] Dr. Sarah Sánchez Albumin/Globulin [Mass ratio] 0.9 {ratio} Normal [facility] Comment on above: Performed By: #### U RTPCR #### [facility] [address] [place] [address] Dr. Sarah Sánchez ALP [Catalytic activity/Vol] 94 U/L Normal 46-116 [facility] Comment on above: Performed By: #### U RTPCR #### [facility] [address] [place] [address] Dr. Sarah Sánchez ALT [Catalytic activity/Vol] 21 U/L Normal 16-63 [facility] Comment on above: Performed By: #### U RTPCR #### [facility] [address] [place] [address] Dr. Sarah Sánchez Anion gap [Moles/Vol] 11.4 mmol/L Normal [facility] Comment on above: Performed By: #### U RTPCR #### [facility] [address] [place] [address] Dr. Sarah Sánchez AST [Catalytic activity/Vol] 19 U/L Normal 15-37 [facility] Comment on above: Performed By: #### U RTPCR #### [facility] [address] [place] [address] Dr. Sarah Sánchez Bilirubin [Mass/Vol] 0.5 mg/dL Normal 0.2-1.0 [facility] Comment on above: Performed By: #### U RTPCR #### [facility] [address] [place] [address] Dr. Sarah Sánchez Calcium [Mass/Vol] 8.4 mg/dL Critically low 8.5-10.1 [facility] Comment on above: Performed By: #### U RTPCR #### [facility] [address] [address] [address] Sarah Sánchez Chloride [Moles/Vol] 106 mmol/L Normal 98-107 [facility] Comment on above: Performed By: #### U RTPCR #### [facility] [address] [address] [address] Sarah Sánchez CO2 [Moles/Vol] 27.3 mmol/L Normal 21.0-32.0 [facility] Comment on above: Performed By: #### U RTPCR #### [facility] [address] [address] [address] Sarah Sánchez Creatinine [Mass/Vol] 2.40 mg/dL Critically high 0.70-1.30 [facility] Comment on above: Performed By: #### U RTPCR #### [facility] [address] [address] [address] Sarah Sánchez EGFR-AF GUYANESE 32 mL/min/1.73m2 Critically low >=60 [facility] Comment on above: Performed By: #### U RTPCR #### [facility] [address] [address] [address] Sarah Sánchez EGFR-NON AF GUYANESE 27 mL/min/1.73m2 Critically low >=60 [facility] Comment on above: Performed By: #### U RTPCR #### [facility] [address] [address] [address] Sarah Sánchez Globulin (S) [Mass/Vol] 3.1 g/dL Normal [facility] Comment on above: Performed By: #### U RTPCR #### [facility] [address] [address] [address] Sarah Sánchez Glucose [Mass/Vol] 159 mg/dL Critically high 74-106 [facility] Comment on above: Performed By: #### U RTPCR #### [facility] [address] [address] [address] Sarah Sánchez Potassium [Moles/Vol] 4.7 mmol/L Normal 3.5-5.1 [facility] Comment on above: Performed By: #### U RTPCR #### [facility] [address] [address] [address] Sarah Sánchez Protein [Mass/Vol] 6.0 g/dL Critically low 6.4-8.2 Th e [facility] Comment on above: Performed By: #### U RTPCR #### [facility] [address] [address] [address] Sarah Sánchez Sodium [Moles/Vol] 140 mmol/L Normal 136-145 [facility] Comment on above: Performed By: #### U RTPCR #### [facility] [address] [address] [address] Sarah Sánchez Urea nitrogen [Mass/Vol] 32.0 mg/dL Critically high 7.0-18.0 [facility] Comment on above: Performed By: #### U RTPCR #### [facility] [address] [address] [address] Sarah Sánchez Urea nitrogen/Creatinine [Mass ratio] 13.3 mg/mg Normal [facility] Comment on above: Performed By: #### U RTPCR #### [facility] [address] [address] [address] Sarah Sánchez COVID-19 SOFIAOrdered By: Rosalba Beaver on 04-12-2022 SARS-CoV+SARS-CoV-2 (COVID-19) Ag IA.rapid Ql (Resp) Negative Negative [facility] Comment on above: This is a duplicate Kyleigh SARS Antigen (SARA) result to be used for statistical tracking purpose only. No Panel InformationOrdered By: Orlando Beaver on 04-12-2022 SARS Antigen (LFIA) [facility] HEMOGRAM AND PLATELon 2021 Hematocrit (Bld) [Volume fraction] 29.0 % Critically low 42.0-54.0 [facility] Comment on above: Performed By: #### P THINT #### [facility] [address] [address] [address] Sarah Sánchez Hemoglobin (Bld) [Mass/Vol] 9.8 g/dL Critically low 14.0-18.0 [facility] Comment on above: Performed By: #### P THINT #### [facility] [address] [place] [address] Dr. Sarah Sánchez MCH (RBC) [Entitic mass] 30.1 pg Normal 25.9-34.0 [facility] Comment on above: Performed By: #### P THINT #### [facility] [address] [place] [address] Dr. Sarah Sánchez MCHC (RBC) [Mass/Vol] 33.8 g/dL Normal 29.9-35.2 [facility] Comment on above: Performed By: #### P THINT #### [facility] [address] [place] [address] Dr. Sarah Sánchez MCV (RBC) [Entitic vol] 89.0 fL Normal 80.0-94.0 [facility] Comment on above: Performed By: #### P THINT #### [facility] [address] [place] [address] Dr. Sarah Sánchez PLT 184 103/ul Normal 150-450 [facility] Comment on above: Performed By: #### P THINT #### [facility] [address] [place] [address] Dr. Sarah Sánchez RBC 3.26 106/ul Critically low 4.70-6.10 [facility] Comment on above: Performed By: #### P THINT #### [facility] [address] [place] [address] Dr. Sarah Sánchez WBC 7.7 103/ul Normal 4.0-11.0 [facility] Comment on above: Performed By: #### P THINT #### [facility] [address] [place] [address] Dr. Sarah Sánchez Covid-19 PCR ([facility])on 12-08 SARS-CoV-2 (COVID-19) RNA VINICIO+probe Ql (Unsp spec) Not detected Normal NOT DETECTED [facility] Comment on above: Result Comment: This test is not yet approved or cleared by the [place] FDA. When there are no FDA-approved or cleared tests available, and other criteria are met, FDA can make tests available under an emergency access mechanism called an Emergency Use Authorization (EUA). The EUA for this test is supported by the [employer] of Health and Human Service's (HHS's) declaration [...] SARS-CoV-2. Performed By: #### C VDTB #### [facility] [address] [place] [address] Dr. Sarah Sánchez IMMUNOFIX ELEC, PROTEIN ELEC URINEon 12-13-2021 Albumin, U 71.9 % Normal [facility] Comment on above: Performed By: #### H BSANS #### [facility] [address] [place] [address] Dr. Sarah Sánchez Cqltr-3-Esdsmaoz, U 3.3 % Normal [facility] Comment on above: Performed By: #### H BSANS #### [facility] [address] [place] [address] Dr. Sarah Sánchez Mreox-5-Jbarnnrl, U 5.8 % Normal [facility] Comment on above: Performed By: #### H BSANS #### [facility] [address] [place] [address] Dr. Sarah Sánchez Beta Globulin, U 10.2 % Normal [facility] Comment on above: Performed By: #### H BSANS #### [facility] [address] [place] [address] Dr. Sarah Sánchez Gamma Globulin, U 8.7 % Normal [facility] Comment on above: Performed By: #### H BSANS #### [facility] [address] [place] [address] Dr. Sarah Sánchez Immunofixation Result, Urine Comment Normal [facility] Comment on above: Result Comment: No m onoclonality detected. Performed By: #### H BSANS #### [facility] [address] [place] [address] Dr. Sarah Sánchez M-Jovon, % Not Observed Normal Not Observed [facility] Comment on above: Performed By: #### H BSANS #### [facility] [address] [address] [address] Sarah Sánchez Note: Comment Normal [facility] Comment on above: Result Comment: Prot ein electrophoresis scan will follow via computer, mail, or refrigeration mechanic delivery. Performed By: #### H BSANS #### [facility] [address] [place] [address] Dr. Sarah Sánchez PDF . Normal [facility] Comment on above: Performed By: #### H BSANS #### [facility] [address] [place] [address] Dr. Sarah Sánchez Protein (U) [Mass/Vol] 315.2 mg/dL Normal Not Estab. [facility] Comment on above: Result Comment: Resu lts confirmed on dilution. Performed By: #### H BSANS #### [facility] [address] [place] [address] Dr. Sarah Sánchez IMMUNOFIXATION(GRISELDA),PROTEIN ELEC(PE),FREon 12-13-2021 Albumin [Mass/Vol] 3.3 g/dL Normal 2.9-4.4 [facility] Comment on above: Performed By: #### U DELFINO, RENAL, MG #### [facility] [address] [place] [address] Dr. Sarah Sánchez Albumin/Globulin [Mass ratio] 1.3 {ratio} Normal 0.7-1.7 [facility] Comment on above: Performed By: #### U DELFINO, RENAL, MG #### [facility] [address] [place] [address] Dr. Sarah Sánchez Cepbk-4-Geterdfh 0.2 g/dL Normal 0.0-0.4 [facility] Comment on above: Performed By: #### U DELFINO, RENAL, MG #### [facility] [address] [address] [address] Sarah Sánchez Yvfsc-2-Pfvsrxqy 0.8 g/dL Normal 0.4-1.0 [facility] Comment on above: Performed By: #### U DELFINO, RENAL, MG #### [facility] [address] [address] [address] Sarah Sánchez Beta Globulin 0.9 g/dL Normal 0.7-1.3 [facility] Comment on above: Performed By: #### U DELFINO, RENAL, MG #### [facility] [address] [address] [address] Sarah Sánchez Free Winn Lt Chains,S 41.7 mg/L Critically high 3.3-19.4 [facility] Comment on above: Performed By: #### U DELFINO, RENAL, MG #### [facility] [address] [place] [address] Dr. Sarah Sánchez Free Lambda Lt Chains,S 29.4 mg/L Critically high 5.7-26.3 [facility] Comment on above: Performed By: #### U DELFINO, RENAL, MG #### [facility] [address] [place] [address] Dr. Sarah Sánchez Gamma Globulin 0.7 g/dL Normal 0.4-1.8 [facility] Comment on above: Performed By: #### U DELFINO, RENAL, MG #### [facility] [address] [address] [address] Sarah Sánchez Globulin (S) [Mass/Vol] 2.7 g/dL Normal 2.2-3.9 [facility] Comment on above: Performed By: #### U DELFINO, RENAL, MG #### [facility] [address] [place] [address] Dr. Sarah Sánchez Immunofixation Result, Serum Comment Normal [facility] Comment on above: Result Comment: No m onoclonality detected. Performed By: #### U DELFINO, RENAL, MG #### [facility] [address] [place] [address] Dr. Sarah Sánchez Immunoglobulin A, Qn, Serum 172 mg/dL Normal 61-437 [facility] Comment on above: Performed By: #### U DELFINO, RENAL, MG #### [facility] [address] [address] [address] Sarah Sánchez Immunoglobulin G, Qn, Serum 769 mg/dL Normal 603-1613 [facility] Comment on above: Performed By: #### U DELFINO, RENAL, MG #### [facility] [address] [address] [address] Sarah Sánchez Immunoglobulin M, Qn, Serum 71 mg/dL Normal 15-143 [facility] Comment on above: Performed By: #### U DELFINO, RENAL, MG #### [facility] [address] [place] [address] Dr. Sarah Sánchez Winn/Lambda Ratio, S 1.42 Normal 0.26-1.65 [facility] Comment on above: Performed By: #### U DELFINO, RENAL, MG #### [facility] [address] [place] [address] Dr. Sarah Sánchez M-Jovon Not Observed Normal Not Observed [facility] Comment on above: Performed By: #### U DELFINO, RENAL, MG #### [facility] [address] [place] [address] Dr. Sarah Sánchez PDF . Normal [facility] Comment on above: Performed By: #### U DELFINO, RENAL, MG #### [facility] [address] [place] [address] Dr. Sarah Sánchez Please note: Comment Normal [facility] Comment on above: Result Comment: Prot ein electrophoresis scan will follow via computer, mail, or refrigeration mechanic delivery. Performed By: #### U DELFINO, RENAL, MG #### [facility] [address] [place] [address] Dr. Sarah Sánchez Protein [Mass/Vol] 6.0 g/dL Normal 6.0-8.5 [facility] Comment on above: Performed By: #### U DELFINO, RENAL, MG #### [facility] [address] [place] [address] Dr. Sarah Sánchez PTH INTACTon 12-12-2021 PTH, Intact 67 pg/mL Critically high 15-65 [facility] Comment on above: Performed By: #### P THINT #### [facility] [address] [address] [address] Sarah Sánchez HEP B SURFACE ANTIGEN SCREEN on 12-10-2021 HBsAg Screen Negative Normal Negative [facility] Comment on above: Performed By: #### H BSANS #### [facility] [address] [address] [address] Sarah Sánchez VIT D 25-OH LABCORPon 2021 Vitamin D, 25-Hydroxy 54.1 ng/mL Normal 30.0-100.0 [facility] Comment on above: Result Comment: Rebecca min D deficiency has been defined by the [place] of [employer] and an Endocrine Society practice guideline as a level of serum 25-OH vitamin D less than 20 ng/mL (1,2). The Endocrine Society went on to further define vitamin D insufficiency as a level between 21 and 29 ng/mL (2). 1. IOM ([place] of [employer]). 2010. Dietary reference intakes for calcium and D. [place]: The National Academies Press. 2. Carlos MF, Mary [place], Elian BERRIOS, et al. Evaluation, treatment, and prevention of vitamin D deficiency: an Endocrine Society clinical practice guideline. JCEM. 2010; 96(7):1911-30. Performed By: #### C VDTBH #### [facility] [address] [place] [address] Dr. Sarah Sánchez CBC AUTO DIFFon 12-09-2021 BASO # 0.0 103/ul Normal 0.0-0.1 [facility] Comment on above: Performed By: #### C VDTBH #### [facility] [address] [place] [address] Dr. Sarah Sánchez Basophils/100 WBC (Bld) 0.6 % Normal 0.2-2.0 [facility] Comment on above: Performed By: #### C VDTBH #### [facility] [address] [place] [address] Dr. Sarah Sánchez EO # 0.4 103/ul Normal 0.0-0.7 [facility] Comment on above: Performed By: #### C VDTBH #### [facility] [address] [place] [address] Dr. Sarah Sánchez Eosinophils/100 WBC (Bld) 5.5 % Normal 0.9-7.0 [facility] Comment on above: Performed By: #### C VDTBH #### [facility] [address] [place] [address] Dr. Sarah Sánchez Erythrocyte distribution width (RBC) [Ratio] 13.2 % Normal 11.0-15.0 [facility] Comment on above: Performed By: #### C VDTBH #### [facility] [address] [place] [address] Dr. Sarah Sánchez Hematocrit (Bld) [Volume fraction] 27.5 % Critically low 42.0-54.0 [facility] Comment on above: Performed By: #### C VDTBH #### [facility] [address] [place] [address] Dr. Sarah Sánchez Hemoglobin (Bld) [Mass/Vol] 9.4 g/dL Critically low 14.0-18.0 [facility] Comment on above: Performed By: #### C VDTBH #### [facility] [address] [place] [address] Dr. Sarah Sánchez IG # 0.04 10e3/ul Critically high 0.00-0.03 [facility] Comment on above: Performed By: #### C VDTBH #### [facility] [address] [place] [address] Dr. Sarah Sánchez IG % 0.6 % Critically high 0.0-0.5 [facility] Comment on above: Performed By: #### C VDTBH #### [facility] [address] [place] [address] Dr. Sarah Sánchez LYMPH # 1.2 103/ul Normal 1.2-3.8 [facility] Comment on above: Performed By: #### C VDTBH #### [facility] [address] [place] [address] Dr. Sarah Sánchez Lymphocytes/100 WBC (Bld) 18.0 % Critically low 20.5-60.0 [facility] Comment on above: Performed By: #### C VDTBH #### [facility] [address] [place] [address] Dr. Sarah Sáncehz MANUAL DIFF REQ NO Normal [facility] Comment on above: Performed By: #### C VDTBH #### [facility] [address] [place] [address] Dr. Sarah Sánchez MCH (RBC) [Entitic mass] 31.0 pg Normal 25.9-34.0 [facility] Comment on above: Performed By: #### C VDTBH #### [facility] [address] [place] [address] Dr. Sarah Sánchez MCHC (RBC) [Mass/Vol] 34.2 g/dL Normal 29.9-35.2 [facility] Comment on above: Performed By: #### C VDTBH #### [facility] [address] [place] [address] Dr. Sarah Sánchez MCV (RBC) [Entitic vol] 90.8 fL Normal 80.0-94.0 [facility] Comment on above: Performed By: #### C VDTBH #### [facility] [address] [place] [address] Dr. Sarah Sánchez MONO # 0.4 103/ul Normal 0.3-0.8 [facility] Comment on above: Performed By: #### C VDTBH #### [facility] [address] [place] [address] Dr. Sarah Sánchez Monocytes/100 WBC (Bld) 5.9 % Normal 1.7-12.0 [facility] Comment on above: Performed By: #### C VDTBH #### [facility] [address] [place] [address] Dr. Sarah Sánchez NEUT # 4.7 103/ul Normal 1.4-6.5 [facility] Comment on above: Performed By: #### C VDTBH #### [facility] [address] [address] [address] Sarah Sánchez Neutrophils/100 WBC (Bld) 69.4 % Normal 43.0-75.0 [facility] Comment on above: Performed By: #### C VDTBH #### [facility] [address] [address] [address] Sarah Sánchez Platelet mean volume (Bld) [Entitic vol] 8.9 fL Critically low 9.5-13.5 [facility] Comment on above: Performed By: #### C VDTBH #### [facility] [address] [address] [address] Sarah Sánchez PLT 191 103/ul Normal 150-450 [facility] Comment on above: Performed By: #### C VDTBH #### [facility] [address] [address] [address] Sarah Sánchez RBC 3.03 106/ul Critically low 4.70-6.10 [facility] Comment on above: Performed By: #### C VDTBH #### [facility] [address] [address] [address] Sarah Sánchez WBC 6.8 103/ul Normal 4.0-11.0 [facility] Comment on above: Performed By: #### C VDTBH #### [facility] [address] [address] [address] Sarah Sánchez FERRITINon 12-09-2021 Ferritin [Mass/Vol] 88.0 ng/mL Normal 26.0-388.0 [facility] Comment on above: Performed By: #### U DELFINO, RENAL, MG #### [facility] [address] [address] [address] Sarah Sánchez IRON AND TIBCon 12-09-2021 % SATURATION 25.0 % Normal [facility] Comment on above: Performed By: #### U DELFINO, RENAL, MG #### [facility] [address] [place] [address] Dr. Sarah Sánchez Iron [Mass/Vol] 63.0 ug/dL Critically low 65.0-175.0 [facility] Comment on above: Performed By: #### U DELFINO, RENAL, MG #### [facility] [address] [address] [address] Sarah Sánchez TIBC DIRECT 252.0 ug/dL Normal 250.0-450.0 [facility] Comment on above: Performed By: #### U DELFINO, RENAL, MG #### [facility] [address] [address] [address] Sarah Sánchez MAGNESIUMon 12-09-2021 Magnesium [Mass/Vol] 1.5 mg/dL Critically low 1.8-2.4 [facility] Comment on above: Performed By: #### P THINT #### [facility] [address] [address] [address] Sarah Sánchez RENAL FUNCTION PANELon 12-09 Albumin [Mass/Vol] 3.3 g/dL Critically low 3.4-5.0 [facility] Comment on above: Performed By: #### U DELFINO, MG, RENAL #### [facility] [address] [place] [address] Dr. Sarah Sánchez Calcium [Mass/Vol] 8.3 mg/dL Critically low 8.5-10.1 [facility] Comment on above: Performed By: #### U DELFINO, MG, RENAL #### [facility] [address] [place] [address] Dr. Sarah Sánchez Chloride [Moles/Vol] 108 mmol/L Critically high 98-107 [facility] Comment on above: Performed By: #### U DELFINO, MG, RENAL #### [facility] [address] [address] [address] Sarah Sánchez CO2 [Moles/Vol] 24.0 mmol/L Normal 21.0-32.0 [facility] Comment on above: Performed By: #### U DELFINO, MG, RENAL #### [facility] [address] [place] [address] Dr. Sarah Sánchez Creatinine [Mass/Vol] 1.92 mg/dL Critically high 0.70-1.30 [facility] Comment on above: Performed By: #### U DELFINO, MG, RENAL #### [facility] [address] [address] [address] Sarah Sánchez EGFR-AF GUYANESE 42 mL/min/1.73m2 Critically low >=60 [facility] Comment on above: Performed By: #### U DELFINO, MG, RENAL #### [facility] [address] [address] [address] Sarah Sánchez EGFR-NON AF GUYANESE 35 mL/min/1.73m2 Critically low >=60 [facility] Comment on above: Performed By: #### U DELFINO, MG, RENAL #### [facility] [address] [address] [address] Sarah Sánchez Glucose [Mass/Vol] 130 mg/dL Critically high 74-106 [facility] Comment on above: Performed By: #### U DELFINO, MG, RENAL #### [facility] [address] [place] [address] Dr. Sarah Sánchez Phosphate [Mass/Vol] 4.0 mg/dL Normal 2.6-4.7 [facility] Comment on above: Performed By: #### U DELFINO, MG, RENAL #### [facility] [address] [address] [address] Sarah Sánchez Potassium [Moles/Vol] 5.0 mmol/L Normal 3.5-5.1 [facility] Comment on above: Performed By: #### U DELFINO, MG, RENAL #### [facility] [address] [address] [address] Sarah Sánchez Sodium [Moles/Vol] 140 mmol/L Normal 136-145 [facility] Comment on above: Performed By: #### U DELFINO, MG, RENAL #### [facility] [address] [address] [address] Sarah Sánchez Urea nitrogen [Mass/Vol] 38.0 mg/dL Critically high 7.0-18.0 [facility] Comment on above: Performed By: #### U DELFINO, MG, RENAL #### [facility] [address] [address] [address] Sarah Sánchez UA RANDOM W/MICROSCOPICon BACTERIA NONE SEEN Normal NONE SEEN The [facility] Comment on above: Performed By: #### U DELFINO, RENAL, MG #### [facility] [address] [address] [address] Sarah Sánchez Bilirubin Ql (U) Negative Normal NEGATIVE [facility] Comment on above: Performed By: #### U DELFINO, RENAL, MG #### [facility] [address] [address] [address] Sarah Sánchez CAST SEEN Abnormal NONE SEEN The [facility] Comment on above: Performed By: #### U DELFINO, RENAL, MG #### [facility] [address] [address] [address] Sarah Sánchez Clarity (U) CLEAR Normal CLEAR The [facility] Comment on above: Performed By: #### U DELFINO, RENAL, MG #### [facility] [address] [place] [address] Dr. Sarah Sánchez Color (U) LT. YELLOW Normal YELLOW The [facility] Comment on above: Performed By: #### U DELFINO, RENAL, MG #### [facility] [address] [place] [address] Dr. Sarah Sánchez Crystals LM Nom (Urine sed) NONE SEEN Normal NONE SEEN The [facility] Comment on above: Performed By: #### U DELFINO, RENAL, MG #### [facility] [address] [place] [address] Dr. Sarah Sánchez Epithelial cells LM Ql (Urine sed) RARE Normal NONE SEEN /RARE The [facility] Comment on above: Performed By: #### U DELFINO, RENAL, MG #### [facility] [address] [place] [address] Dr. Sarah Sánchez Glucose Ql (U) 100 mg/dl Abnormal NEGATIVE [facility] Comment on above: Performed By: #### U DELFINO, RENAL, MG #### [facility] [address] [place] [address] Dr. Sarah Sánchez Hemoglobin Ql (U) SMALL Abnormal NEGATIVE The [facility] Comment on above: Performed By: #### U DELFINO, RENAL, MG #### [facility] [address] [place] [address] Dr. Sarah Sánchez HYALINE CAST RARE Normal The [facility] Comment on above: Performed By: #### U DELFINO, RENAL, MG #### [facility] [address] [address] [address] Sarah Sánchez Ketones Ql (U) Negative Normal NEGATIVE [facility] Comment on above: Performed By: #### U DELFINO, RENAL, MG #### [facility] [address] [address] [address] Sarah Sánchez LEUKOCYTES Negative Normal NEGATIVE The [facility] Comment on above: Performed By: #### U DELFINO, RENAL, MG #### [facility] [address] [address] [address] Sarah Sáncehz MUCOUS TRACE Abnormal NONE SEEN The [facility] Comment on above: Performed By: #### U DELFINO, RENAL, MG #### [facility] [address] [address] [address] Sarah Sánchez Nitrite Ql (U) Negative Normal NEGATIVE [facility] Comment on above: Performed By: #### U DELFINO, RENAL, MG #### [facility] [address] [address] [address] Sarah Sánchez pH (U) 5.5 [pH] Normal 5-9 [facility] Comment on above: Performed By: #### U DELFINO, RENAL, MG #### [facility] [address] [address] [address] Sarah Sánchez RBC 0-2 Normal 0-2 [facility] Comment on above: Performed By: #### U DELFINO, RENAL, MG #### [facility] [address] [address] [address] Sarah Sánchez SPEC GRAVITY 1.020 Normal 1.005-<=1.02 5 [facility] Comment on above: Performed By: #### U DELFINO, RENAL, MG #### [facility] [address] [address] [address] Sarah Sánchez UA PROTEIN 300 mg/dl Abnormal NEGATIVE/ TRACE The [facility] Comment on above: Performed By: #### U DELFINO, RENAL, MG #### [facility] [address] [address] [address] Sarah Sánchez Urobilinogen Qn (U) 0.2 {Stevie'U}/dL Normal 0.2 - 1. 0 [facility] Comment on above: Performed By: #### U DELFINO, RENAL, MG #### [facility] [address] [place] [address] Dr. Sarah Sánchez WBC NONE SEEN Normal NONE SEEN The [facility] Comment on above: Performed By: #### U DELFINO, RENAL, MG #### [facility] [address] [address] [address] Sarah Sánchez URIC ACID SERUMon 12-09-2021 Urate [Mass/Vol] 6.6 mg/dL Normal 3.5-7.2 [facility] Comment on above: Performed By: #### U DELFINO, MG, RENAL #### [facility] [address] [place] [address] Dr. Sarah Sánchez URINE T PROTEIN CREAT RATIOo n 12-09-2021 Protein (U) [Mass/Vol] 313.7 mg/dL Critically high <=12.0 [facility] Comment on above: Performed By: #### H BSANS #### [facility] [address] [address] [address] Sarah Sánchez UR PROT CREAT RAT 5.47 Normal [facility] Comment on above: Performed By: #### H BSANS #### [facility] [address] [place] [address] Dr. Sarah Sánchez URINE CREAT 57.37 mg/dL Normal 20.00-300.00 [facility] Comment on above: Performed By: #### H BSANS #### [facility] [address] [place] [address] Dr. Sarah Sánchez VIT B12 AND FOLATEon 022 Cobalamin (Vitamin B12) [Mass/Vol] 1831.0 pg/mL Critically high 193.0-986.0 [facility] Comment on above: Performed By: #### U DELFINO, RENAL, MG #### [facility] [address] [place] [address] Dr. Sarah Sánchez FOLATE 20.90 ng/mL Normal 8.60-58.90 [facility] Comment on above: Performed By: #### U DELFINO, RENAL, MG #### [facility] [address] [address] [address] Sarah Sánchez GLYCOHEMOGLOBIN A1Con 2021 ADA RECOMMENDATION SEE BELOW Normal The [facility] Comment on above: Result Comment: ADA RECOMMENDED LIMIT 4.0 - 6.0 ADA THERAPEUTIC TARGET < 7.0 ACTION SUGGESTED > 7.0 Performed By: #### U DELFINO, RENAL, MG #### [facility] [address] [address] [address] Sarah Sánchez Glucose [Mass/Vol] 137 mg/dL Normal [facility] Comment on above: Performed By: #### U DELFINO, RENAL, MG #### [facility] [address] [place] [address] Dr. Sarah Sánchez HbA1c (Bld) [Mass fraction] 6.4 % Critically high 4.5-6.2 [facility] Comment on above: Performed By: #### U DELFINO, RENAL, MG #### [facility] [address] [address] [address] Sarah Sánchez PTH INTACTon 09-16-2021 PTH, Intact 57 pg/mL Normal 15-65 [facility] Comment on above: Performed By: #### U RTPCR #### [facility] [address] [place] [address] Dr. Sarah Sánchez HEMOGRAM AND PLATELon 2021 Hematocrit (Bld) [Volume fraction] 27.7 % Critically low 42.0-54.0 [facility] Comment on above: Performed By: #### H BSANS #### [facility] [address] [address] [address] Sarah Sánchez Hemoglobin (Bld) [Mass/Vol] 9.5 g/dL Critically low 14.0-18.0 [facility] Comment on above: Performed By: #### H BSANS #### [facility] [address] [place] [address] Dr. Sarah Sánchez MCH (RBC) [Entitic mass] 31.1 pg Normal 25.9-34.0 [facility] Comment on above: Performed By: #### H BSANS #### [facility] [address] [address] [address] Sarah Sánchez MCHC (RBC) [Mass/Vol] 34.3 g/dL Normal 29.9-35.2 [facility] Comment on above: Performed By: #### H BSANS #### [facility] [address] [address] [address] Sarah Sánchez MCV (RBC) [Entitic vol] 90.8 fL Normal 80.0-94.0 [facility] Comment on above: Performed By: #### H BSANS #### [facility] [address] [place] [address] Dr. Sarah Sánchez PLT 217 103/ul Normal 150-450 [facility] Comment on above: Performed By: #### H BSANS #### [facility] [address] [place] [address] Dr. Sarah Sánchez RBC 3.05 106/ul Critically low 4.70-6.10 [facility] Comment on above: Performed By: #### H BSANS #### [facility] [address] [address] [address] Sarah Sánchez WBC 6.9 103/ul Normal 4.0-11.0 [facility] Comment on above: Performed By: #### H BSANS #### [facility] [address] [address] [address] Sarah Sánchez MAGNESIUMon 09-15-2021 Magnesium [Mass/Vol] 1.6 mg/dL Critically low 1.8-2.4 [facility] Comment on above: Performed By: #### U DELFINO, RENAL, MG #### [facility] [address] [place] [address] Dr. Sarah Sánchez RENAL FUNCTION PANELon 09-15 Albumin [Mass/Vol] 3.3 g/dL Critically low 3.4-5.0 [facility] Comment on above: Performed By: #### U DELFINO, RENAL, MG #### [facility] [address] [place] [address] Dr. Sarah Sánchez Calcium [Mass/Vol] 8.3 mg/dL Critically low 8.5-10.1 Th e [facility] Comment on above: Performed By: #### U DELFINO, RENAL, MG #### [facility] [address] [address] [address] Sarah Sánchez Chloride [Moles/Vol] 107 mmol/L Normal 98-107 [facility] Comment on above: Performed By: #### U DELFINO, RENAL, MG #### [facility] [address] [address] [address] Sarah Sánchez CO2 [Moles/Vol] 23.8 mmol/L Normal 21.0-32.0 [facility] Comment on above: Performed By: #### U DELFINO, RENAL, MG #### [facility] [address] [address] [address] Sarah Sánchez Creatinine [Mass/Vol] 1.87 mg/dL Critically high 0.70-1.30 [facility] Comment on above: Performed By: #### U DELFINO, RENAL, MG #### [facility] [address] [address] [address] Sarah Sánchez EGFR-AF GUYANESE 43 mL/min/1.73m2 Critically low >=60 [facility] Comment on above: Performed By: #### U DELFINO, RENAL, MG #### [facility] [address] [place] [address] Dr. Sarha Sánchez EGFR-NON AF GUYANESE 36 mL/min/1.73m2 Critically low >=60 [facility] Comment on above: Performed By: #### U DELFINO, RENAL, MG #### [facility] [address] [address] [address] Sarah Sánchez Glucose [Mass/Vol] 120 mg/dL Critically high 74-106 [facility] Comment on above: Performed By: #### U DELFINO, RENAL, MG #### [facility] [address] [address] [address] Sarah Sánchez Phosphate [Mass/Vol] 3.8 mg/dL Normal 2.6-4.7 [facility] Comment on above: Performed By: #### U DELFINO, RENAL, MG #### [facility] [address] [address] [address] Sarah Sánchez Potassium [Moles/Vol] 4.5 mmol/L Normal 3.5-5.1 [facility] Comment on above: Performed By: #### U DELFINO, RENAL, MG #### [facility] [address] [address] [address] Sarah Sánchez Sodium [Moles/Vol] 140 mmol/L Normal 136-145 [facility] Comment on above: Performed By: #### U DELFINO, RENAL, MG #### [facility] [address] [address] [address] Sarah Sánchez Urea nitrogen [Mass/Vol] 34.0 mg/dL Critically high 7.0-18.0 [facility] Comment on above: Performed By: #### U DELFINO, RENAL, MG #### [facility] [address] [place] [address] Dr. Sarah Sánchez UA RANDOM W/MICROSCOPICon BACTERIA NONE SEEN Normal NONE SEEN [facility] Comment on above: Performed By: #### C VDTBH #### [facility] [address] [place] [address] Dr. Sarah Sánchez Bilirubin Ql (U) Negative Normal NEGATIVE [facility] Comment on above: Performed By: #### C VDTBH #### [facility] [address] [place] [address] Dr. Sarah Sánchez CAST SEEN Abnormal NONE SEEN [facility] Comment on above: Performed By: #### C VDTBH #### [facility] [address] [place] [address] Dr. Sarah Sánchez Clarity (U) CLEAR Normal CLEAR [facility] Comment on above: Performed By: #### C VDTBH #### [facility] [address] [place] [address] Dr. Sarah Sánchez COARSE GRANULAR CAST RARE Normal [facility] Comment on above: Performed By: #### C VDTBH #### [facility] [address] [place] [address] Dr. Sarah Sánchez Color (U) LT. YELLOW Normal YELLOW [facility] Comment on above: Performed By: #### C VDTBH #### [facility] [address] [place] [address] Dr. Sarah Sánchez Crystals LM Nom (Urine sed) NONE SEEN Normal NONE SEEN [facility] Comment on above: Performed By: #### C VDTBH #### [facility] [address] [place] [address] Dr. Sarah Sánchez Epithelial cells LM Ql (Urine sed) FEW Abnormal NONE SEEN /RARE The [facility] Comment on above: Performed By: #### C VDTBH #### [facility] [address] [place] [address] Dr. Sarah Sánchez Glucose Ql (U) Negative Normal NEGATIVE [facility] Comment on above: Performed By: #### C VDTBH #### [facility] [address] [place] [address] Dr. Sarah Sánchez Hemoglobin Ql (U) MODERATE Abnormal NEGATIVE [facility] Comment on above: Performed By: #### C VDTBH #### [facility] [address] [place] [address] Dr. Sarah Sánchez Ketones Ql (U) Negative Normal NEGATIVE [facility] Comment on above: Performed By: #### C VDTBH #### [facility] [address] [place] [address] Dr. Sarah Sánchez LEUKOCYTES Negative Normal NEGATIVE [facility] Comment on above: Performed By: #### C VDTBH #### [facility] [address] [place] [address] Dr. Sarah Sánchez MUCOUS NONE SEEN Normal NONE SEEN [facility] Comment on above: Performed By: #### C VDTBH #### [facility] [address] [place] [address] Dr. Sarah Sánchez Nitrite Ql (U) Negative Normal NEGATIVE [facility] Comment on above: Performed By: #### C VDTBH #### [facility] [address] [place] [address] Dr. Sarah Sánchez pH (U) 5.5 [pH] Normal 5-9 [facility] Comment on above: Performed By: #### C VDTBH #### [facility] [address] [place] [address] Dr. Sarah Sánchez RBC 0-2 Normal 0-2 [facility] Comment on above: Performed By: #### C VDTBH #### [facility] [address] [place] [address] Dr. Sarah Sánchez SPEC GRAVITY 1.025 Normal 1.005-<=1.[address] [place] [address] Comment on above: Performed By: #### C VDTBH #### [facility] [address] [place] [address] Dr. Sarah Sánchez UA PROTEIN >300 Abnormal NEGATIVE/ TRACE [facility] Comment on above: Performed By: #### C VDTBH #### [facility] [address] [place] [address] Dr. Sarah Sánchez Urobilinogen Qn (U) 0.2 {Stevie'U}/dL Normal 0.2 - 1. 0 [facility] Comment on above: Performed By: #### C VDTBH #### [facility] [address] [place] [address] Dr. Sarah Sánchez WBC NONE SEEN Normal NONE SEEN [facility] Comment on above: Performed By: #### C VDTBH #### [facility] [address] [place] [address] Dr. Sarah Sánchez URIC ACID SERUMon 09-15-2021 Urate [Mass/Vol] 6.9 mg/dL Normal 3.5-7.2 [facility] Comment on above: Performed By: #### U DELFINO, RENAL, MG #### [facility] [address] [place] [address] Dr. Sarah Sánchez URINE T PROTEIN CREAT RATIOo n 09-15-2021 Protein (U) [Mass/Vol] 440.3 mg/dL Critically high <=12.0 [facility] Comment on above: Performed By: #### U RTPCR #### [facility] [address] [place] [address] Dr. Sarah Sánchez UR PROT CREAT RAT 6.63 Normal [facility] Comment on above: Performed By: #### U RTPCR #### [facility] [address] [address] [address] Sarah Sánchez URINE CREAT 66.40 mg/dL Normal 20.00-300.00 [facility] Comment on above: Performed By: #### U RTPCR #### [facility] [address] [address] [address] Sarah Sánchez VITAMIN D 25 OHon 09-15-2021 VIT D 25-OH 18.8 ng/mL Normal [facility] Comment on above: Performed By: #### U DELFINO, RENAL, MG #### [facility] [address] [address] [address] Sarah Sánchez VIT D RANGES SEE BELOW Normal [facility] Comment on above: Result Comment: <20 ng/mL Vit D deficient 20 - <30 ng/mL Vit D insufficient 30 - 100 ng/mL Vit D sufficient >100 ng/mL Potential Toxicity Performed By: #### U DELFINO, RENAL, MG #### [facility] [address] [address] [address] Sarah Sánchez US KIDNEYSon 09-01-2021 US [...] MEMO [place] Date: 2021-09-01 10:18 Normal [facility] Urinalysis With MicroscopicO rdered By: Ralph Mccurdy on 04-23-2019 - [employer] Work Phone: Amorphous, UA NOT REPORTED None [employer] [facility] Work Phone: Bacteria, UA NOT REPORTED None [facility] Work Phone: Bilirubin Urine Negative NEGATIVE [employer] [facility] Work Phone: Casts UA NOT REPORTED /LPF [employer] Work Phone: Color, UA YELLOW YELLOW [employer] Work Phone: Crystals UA URIC ACID Abnormal None /HPF [employer] Work Phone: Crystals UA 2 TO 5 Abnormal None /HPF [facility] Work Phone: Epithelial Cells UA None [facility] Work Phone: Glucose, Ur Negative NEGATIVE [employer] Work Phone: Interpretation and review of laboratory results Abnormal [employer] Work Phone: Ketones Ql (U) Negative NEGATIVE [facility] Work Phone: Leukocyte esterase Test strip Ql (U) Negative NEGATIVE [facility] Work Phone: Mucus, UA NOT REPORTED None [facility] Work Phone: Nitrite, Urine Negative NEGATIVE [facility] Work Phone: Other Observations UA NOT REPORTED NOT REQ. [facility] Work Phone: pH, UA 6.0 [facility] Work Phone: Protein, UA 4+ Abnormal NEGATIVE [employer] Work Phone: RBC, UA 0 TO 2 [facility] Work Phone: Renal Epithelial, Urine NOT REPORTED 0 /HPF [facility] Work Phone: Specific [place], UA 1.020 [employer] Work Phone: Trichomonas, UA NOT REPORTED None [employer] Work Phone: Turbidity UA CLEAR CLEAR [employer] Work Phone: Urinalysis Comments NOT REPORTED [facility] [employer] Work Phone: Urine Hgb 1+ Abnormal NEGATIVE [employer] Work Phone: Urobilinogen, Urine Normal Normal [employer] Work Phone: WBC, UA None [employer] Work Phone: Yeast, UA NOT REPORTED None [employer] Work Phone: Cardiovascular Lab Reporton 09-12-2018 Cardiovascular Lab Report [facility] Patient Name: Miguelito [facility] MR #: [id number] Physician: Vadim Malagon of [facility] Medicine Service Date: 09/12/2018 Division of Birthdate: 1950 Cardiology Room #: Adult Cardiovascular Services [place] [address] Cardiovascular Laboratory Report INDICATIONS: The patient is a 68-year-old man, known to have coronary artery disease, status post stenting of the ramus vessel in January 2018 in the setting of cds-GU-[id number] myocardial infarction. At that time, he had [...] signed informed consent. He was brought to lab assistant in a fasting state. The left neck area was prepped and draped in usual fashion. Note that we went for the left internal jugular vein access, as he had multiple procedures in the right carotid in the past and due to the patient's preference. The left internal jugular vein was accessed using micropuncture technique under ultrasound guidance and a 6-Malagasy x 11 cm sheath was placed. A 6-Malagasy Olivia catheter was used for right heart catheterization with measurement of pressures and calculation of cardiac output using the estimated Rose Marie method. Olivia catheter was removed. Steve test was favorable on the right. Access in the right radial artery was obtained using micropuncture technique and ultrasound guidance. A 6-Malagasy x 11 cm Hydrophilic sheath was advanced. Verapamil was given through the sheath and heparin was administered intravenously. Bilateral selective coronary angiography was then performed using 6-Malagasy JR5 and JL3.5 diagnostic catheters. Catheters were [...] narrowing right after the takeoff of a xbndv-qv-pclumsfe size first diagonal branch, that diagonal branch [...] the ostial to proximal segment of a ccjty-fk-bwvqjuxo size diagonal branch. 2. The angiographic appearance [...] Larisa/Vadim Veronica M.D. Date Trans: 09/12/2018 10:28 Larisa/harvye [id number] cc: Ruben Luo M.D. [address] [place] [id number] Normal [facility] BASIC METABOLIC PANELon 10-1 Calcium [Mass/Vol] 8.4 mg/dL Low 8.6-10.3 [facility] Comment on above: Order Comment: No: D o not add to previous draw Performed By: #### 0 0071, 05819, 23331 #### [facility] [address] [place] [address], [facility] Chloride [Moles/Vol] 106 mmol/L Normal 98-107 [facility] Comment on above: Order Comment: No: D o not add to previous draw Performed By: #### 0 0071, 91559, 86010 #### [facility] [address] [place] [address], [place] CO2 [Moles/Vol] 26 mmol/L Normal 21-31 [facility] Comment on above: Order Comment: No: D o not add to previous draw Performed By: #### 0 0071, 88517, 13829 #### [facility] [address] [place] [address], [place] Creatinine [Mass/Vol] 1.25 mg/dL Normal 0.70-1.30 [facility] Comment on above: Order Comment: No: D o not add to previous draw Performed By: #### 0 0071, 56642, 22041 #### [facility] [address] [place] [address], [place] GFR/1.73 sq M predicted among blacks MDRD (S/P/Bld) [Vol rate/Area] mL/min/{1.73_m2} Normal >60 [facility] Comment on above: Order Comment: No: D o not add to previous draw Performed By: #### 0 0071, , 60960 #### [facility] [address] [place] [address], [place] GFR/1.73 sq M predicted among non-blacks MDRD (S/P/Bld) [Vol rate/Area] 57 ml/min/1.73sq m Abnormal >60 [facility] Comment on above: Order Comment: No: D o not add to previous draw Performed By: #### 0 0071, , 72070 #### [facility] [address] [place] [address], [place] Glucose [Mass/Vol] 183 mg/dL High 70-100 [facility] Comment on above: Order Comment: No: D o not add to previous draw Performed By: #### 0 0071, 11533, 25284 #### [facility] [address] [place] [address], [place] Potassium [Moles/Vol] 5.4 mmol/L High 3.5-5.1 [facility] Comment on above: Order Comment: No: D o not add to previous draw Performed By: #### 0 0071, 67760, 61870 #### [facility] [address] [place] [id number], [facility] Sodium [Moles/Vol] 135 mmol/L Low 136-145 [facility] Comment on above: Order Comment: No: D o not add to previous draw Performed By: #### 0 0071, 06978, 94498 #### [facility] [address] [place] [address], [facility] Urea nitrogen [Mass/Vol] 26 mg/dL High 7-25 [facility] Comment on above: Order Comment: No: D o not add to previous draw Performed By: #### 0 0071, 80031, 86710 #### [facility] [address] [place] [id number], [facility] CBC COMPLETE BLOOD COUNTon Erythrocyte distribution width (RBC) [Ratio] 13.2 % Normal 11.5-15.0 [facility] Comment on above: Order Comment: No: D o not add to previous draw Performed By: #### 5 0608 #### [facility] [address] [place] [id number], [facility] Hematocrit (Bld) [Volume fraction] 31.0 % Low 39.0-50.0 [facility] Comment on above: Order Comment: No: D o not add to previous draw Performed By: #### 5 0608 #### [facility] [address] [place] [address], [place] Hemoglobin (Bld) [Mass/Vol] 10.6 g/dL Low 13.0-17.0 [facility] Comment on above: Order Comment: No: D o not add to previous draw Performed By: #### 5 0608 #### [facility] [address] [place] [address], [facility] MCH (RBC) [Entitic mass] 30.5 pg Normal 27.0-33.0 [facility] Comment on above: Order Comment: No: D o not add to previous draw Performed By: #### 5 0608 #### [facility] [address] [place] [address], [facility] MCHC (RBC) [Mass/Vol] 34.2 g/dL Normal 32.0-35.0 [facility] Comment on above: Order Comment: No: D o not add to previous draw Performed By: #### 5 0608 #### [facility] [address] [place] [id number], [facility] MCV (RBC) [Entitic vol] 89.3 fL Normal 82.0-98.0 [facility] Comment on above: Order Comment: No: D o not add to previous draw Performed By: #### 5 0608 #### [facility] [address] [place] [address], [facility] Nucleated RBC/100 WBC (Bld) [Ratio] 0 % Normal 0-0 [facility] Comment on above: Order Comment: No: D o not add to previous draw Performed By: #### 5 0608 #### [facility] [address] [place] [id number], [place] PLAT CNT 174 10*3/uL Normal 150-400 [facility] Comment on above: Order Comment: No: D o not add to previous draw Performed By: #### 5 0608 #### [facility] [address] [place] [id number], [facility] RBC (Bld) [#/Vol] 3.47 10*6/uL Low 4.20-5.70 [facility] Comment on above: Order Comment: No: D o not add to previous draw Performed By: #### 5 0608 #### [facility] [address] [place] [id number], [facility] WBC (Bld) [#/Vol] 8.57 10*3/uL Normal 4.00-10.60 [facility] Comment on above: Order Comment: No: D o not add to previous draw Performed By: #### 5 0608 #### [facility] [address] [place] [address], [facility] Cardiovascular Lab Reporton 01-18-2018 Cardiovascular Lab Report [facility] Patient Name: Omer Santos [facility] MR #: [id number] Physician: Vadim Malagon of [facility] Medicine Service Date: 01/17/2018 Division of Birthdate: 1950 Cardiology Room #: [id number] Adult Cardiovascular Services [facility] [address] [place] [address] Cardiovascular Laboratory Report INDICATION: Omer Santos is a 67-year-old man, who was admitted with qiv-ZQ-zuvylno elevation myocardial infarction. He was referred for [...] signed informed consent. He was brought to lab assistant in a fasting state. The left wrist area was prepped and draped in usual fashion. Steve's test was favorable. Access was obtained in the left radial artery. Using micropuncture technique, a 6-Malagasy x 11 cm Hydrophilic sheath was advanced. Verapamil was given through the sheath and heparin was administered intravenously. Bilateral selective coronary angiography was then performed using 6-Malagasy JL3.5 and JR4 diagnostic catheters. Catheters were removed. A 6-Malagasy XB 3.0 guiding catheter was advanced and used to engage in the left main coronary ostium. Therapeutic ACT was confirmed during the procedure and additional heparin given as needed. A [place] wire was advanced into the distal ramus vessel. Balloon angioplasty in the proximal ramus was performed using Emerge 2.5 x 12 mm balloon inflated at 12 atmospheres. Angiography revealed suboptimal results. This was treated using a Synergy 2.75 x 16 mm drug-eluting stent deployed at 11 atmospheres and post dilated using NC Quantum Bishop 2.75 x 12 mm noncompliant balloon inflated [...] for minimum of 1 year after acute wod-PO-pcfepqz elevation myocardial infarction and drug-eluting stenting. 3. [...] Veronica M.D. Date Trans: 01/17/2018 10:32 P/mmo [id number] cc: Ruben Luo M.D. [address] [facility] [id number] Otilia Sanchez M.D. [facility] Not Send [address] [facility] [address] Normal [facility] MAGNESIUM BLOODon 01-18-2018 Magnesium [Mass/Vol] 1.9 mg/dL Normal 1.9-2.7 [facility] Comment on above: Performed By: #### 0 0071, 69083, 43296 #### [facility] [address] [place] [address], [facility] TROPONIN-Ion 01-18-2018 Troponin I.cardiac [Mass/Vol] 0.84 ng/mL Critically high 0.00-0.04 [facility] Comment on above: Result Comment: M-CR ITICAL RESULT(S) REVIEWED, CALLED TO AND READ BACK BY AMARA PATTERSON RN AT 0903. REFERENCE RANGES: 0.00 - 0.04 ng/ml NORMAL 0.05 - 0.50 ng/ml INDETERMINATE > 0.50 ng/ml CONSISTENT WITH AN M.I. Performed By: #### 0 0071, 22049, 90662 #### [facility] [address] [place] [address], [facility] BASIC METABOLIC PANELon 01-06 Calcium [Mass/Vol] 8.8 mg/dL Normal 8.6-10.3 [facility] Comment on above: Order Comment: No: D o not add to previous draw Performed By: #### 3 5199, 45413 #### [facility] [address] [place] [address], [place] Chloride [Moles/Vol] 103 mmol/L Normal 98-107 [facility] Comment on above: Order Comment: No: D o not add to previous draw Performed By: #### 3 5199, 29560 #### [facility] [address] [place] [address], [place] CO2 [Moles/Vol] 25 mmol/L Normal 21-31 [facility] Comment on above: Order Comment: No: D o not add to previous draw Performed By: #### 3 5199, 24883 #### [facility] [address] [place] [address], [place] Creatinine [Mass/Vol] 1.36 mg/dL High 0.70-1.30 [facility] Comment on above: Order Comment: No: D o not add to previous draw Performed By: #### 3 5199, 12082 #### [facility] [address] [place] [address], [place] GFR/1.73 sq M predicted among blacks MDRD (S/P/Bld) [Vol rate/Area] mL/min/{1.73_m2} Normal >60 [facility] Comment on above: Order Comment: No: D o not add to previous draw Performed By: #### 3 5199, 85771 #### [facility] [address] [place] [address], [place] GFR/1.73 sq M predicted among non-blacks MDRD (S/P/Bld) [Vol rate/Area] 52 ml/min/1.73sq m Abnormal >60 [facility] Comment on above: Order Comment: No: D o not add to previous draw Performed By: #### 3 5199, 84712 #### [facility] [address] [place] [address], [facility] Glucose [Mass/Vol] 265 mg/dL High 70-100 [facility] Comment on above: Order Comment: No: D o not add to previous draw Performed By: #### 3 5199, 15222 #### [facility] [address] [facility] [place] [address], [facility] Potassium [Moles/Vol] 4.7 mmol/L Normal 3.5-5.1 [facility] Comment on above: Order Comment: No: D o not add to previous draw Performed By: #### 3 5199, 22046 #### [facility] [address] [facility] [place] [address], [facility] Sodium [Moles/Vol] 136 mmol/L Normal 136-145 [facility] Comment on above: Order Comment: No: D o not add to previous draw Performed By: #### 3 5199, 64030 #### [facility] [address] [facility]. [address] Urea nitrogen [Mass/Vol] 25 mg/dL Normal 7-25 [facility] Comment on above: Order Comment: No: D o not add to previous draw Performed By: #### 3 5199, 16628 #### [facility] [address] [facility]. [address] CBC W/DIFFon 01-17-2018 ABS BASOPHILS 0.1 10*3/uL Normal 0.0-0.2 [facility] Comment on above: Performed By: #### 5 0103 #### [facility] [address] [facility]. [address] ABS IMM GRANS 0.1 10*3/uL Normal 0.0-0.2 [facility] Comment on above: Performed By: #### 5 0103 #### [facility] [address] [place] [address], [facility] ABS NEUTROPHILS 4.1 10*3/uL Normal 1.6-7.6 [facility] Comment on above: Performed By: #### 5 0103 #### [facility] [address] [place] [address], [facility] Basophils/100 WBC (Bld) 0.7 % Normal 0.0-1.0 [facility] Comment on above: Performed By: #### 5 0103 #### [facility] [address] [place] [address], [facility] Eosinophils (Bld) [#/Vol] 0.5 10*3/uL Normal 0.0-0.5 [facility] Comment on above: Performed By: #### 5 102 #### [facility] [address] [facility] [place] [address], [facility] Eosinophils/100 WBC (Bld) 6.6 % High 0.0-6.0 [facility] Comment on above: Performed By: #### 5 3 #### [facility] [address] [facility]. [address] Erythrocyte distribution width (RBC) [Ratio] 13.1 % Normal 11.5-15.0 [facility] Comment on above: Performed By: #### 5 3 #### [facility] [address] [facility] [facility] [address], [facility] Hematocrit (Bld) [Volume fraction] 30.5 % Low 39.0-50.0 [facility] Comment on above: Performed By: #### 5 3 #### [facility] [address] [facility] [place] [address], [facility] Hemoglobin (Bld) [Mass/Vol] 10.8 g/dL Low 13.0-17.0 [facility] Comment on above: Performed By: #### 5 3 #### [facility] [address] [place] [address], [facility] IMMATURE GRANS 1.8 % High 0.0-1.0 [facility] Comment on above: Performed By: #### 5 0103 #### [facility] [address] [place] [address], [facility] Lymphocytes (Bld) [#/Vol] 2.1 10*3/uL Normal 1.2-4.0 [facility] Comment on above: Performed By: #### 5 0103 #### [facility] [address] [place] [address], [facility] Lymphocytes/100 WBC (Bld) 28.1 % Normal 20.0-45.0 [facility] Comment on above: Performed By: #### 5 3 #### [facility] [address] [place] [address], [facility] MCH (RBC) [Entitic mass] 31.3 pg Normal 27.0-33.0 [facility] Comment on above: Performed By: #### 5 3 #### [facility] [address] [place] [address], [facility] MCHC (RBC) [Mass/Vol] 35.4 g/dL High 32.0-35.0 [facility] Comment on above: Performed By: #### 5 3 #### [facility] [address] [place] [address], [facility] MCV (RBC) [Entitic vol] 88.4 fL Normal 82.0-98.0 [facility] Comment on above: Performed By: #### 5 0103 #### [facility] [address] [place] [address], [facility] Monocytes (Bld) [#/Vol] 0.5 10*3/uL Normal 0.1-1.0 [facility] Comment on above: Performed By: #### 5 3 #### [facility] [address] [place] [address], [facility] MONOS 6.3 % Normal 5.0-12.0 [facility] Comment on above: Performed By: #### 5 0103 #### [facility] [address] [place] [id number], [facility] Neutrophils/100 WBC (Bld) 56.5 % Normal 40.0-72.0 [facility] Comment on above: Performed By: #### 5 0103 #### [facility] [address] [facility] [place] [address], [facility] Nucleated RBC/100 WBC (Bld) [Ratio] 0 % Normal 0-0 [facility] Comment on above: Performed By: #### 5 0103 #### [facility] [address] [facility] [place] [address], [facility] PLAT CNT 175 10*3/uL Normal 150-400 [facility] Comment on above: Performed By: #### 5 0103 #### [facility] [address] [facility] [place] [address], [facility] RBC (Bld) [#/Vol] 3.45 10*6/uL Low 4.20-5.70 [facility] Comment on above: Performed By: #### 5 0103 #### [facility] [address] [facility]. [place] [id number], [facility] WBC (Bld) [#/Vol] 7.30 10*3/uL Normal 4.00-10.60 [facility] Comment on above: Performed By: #### 5 0103 #### [facility] [address] [place] [address], [facility] History and Physicalon 01-17 History and Physical MR#: [id number] [facility] Pt. Name: Omer Santos Admitted: 01/17/2018 Date of : 1950 Attending Physician: Anrde Vizcaino MD Room #: 3CD [id number] Discharge Date: HISTORY AND PHYSICAL CHIEF COMPLAINT: Chest pain. HISTORY OF PRESENT ILLNESS: The patient is a 67-year-old male, who presented initially to [facility] complaining of chest pain. He states [...] time. His initial workup was negative at [place], did a repeat troponin, which was elevated. He was started on a heparin drip and transferred here to [facility] for high-level care to be seen by Cardiology for possible NSTEMI. Presently he states he is chest pain free. He received some morphine in [place], to which he attributes his current pain-free [...] alert and oriented x3. LABORATORY STUDIES: From [facility] dated January 16, 2018. BNP 311. [...] Larisa/Andre Vizcaino MD Date Trans: 01/17/2018 07:04 A/harvey [id number] Normal [facility] TROPONIN-Ion 01-17-2018 Troponin I.cardiac [Mass/Vol] 0.22 ng/mL High 0.00-0.04 [facility] Comment on above: Order Comment: No: D o not add to previous draw Result Comment: REFE RENCE RANGES: 0.00 - 0.04 ng/ml NORMAL 0.05 - 0.50 ng/ml INDETERMINATE > 0.50 ng/ml CONSISTENT WITH AN M.I. Performed By: #### [id number] #### [facility] [address] [facility]. [address] UFH HEPARIN ASSAYon 01-18-20 18 UNFRACTIONATED HEPARIN <0.10 Critically low 0.30-0.70 [facility] Comment on above: Result Comment: Clarissa roxaban and Apixaban will interfere with the anti Xa assay used to monitor UFH and LMWH. RESULTS CHECKED AND CALLED. ACCURATELY READ BACK BY AMARA PATTERSON RN @ [id number] Performed By: #### [id number] #### [facility] [address] [place] [address], [facility] Vital Signs Date Time Vital Sign Value Performing Clinician Facility 05-07-2023 09:40-0500 Body height 167.64 cm Oma Donato Other [facility] Other 05-07-2023 09:40-0500 Body mass index (BMI) [Ratio] 26.85 kg/m2 Oma Donato Other [facility] Other 05-07-2023 09:40-0500 Body temperature 96.3 [degF] Oma Donato Other [facility] Other 05-07-2023 09:40-0500 Body weight 75.48 kg Oma Donato Other [facility] Other 05-07-2023 09:40-0500 Diastolic blood pressure 72 mm[Hg] Oma Donato Other [facility] Other 05-07-2023 09:40-0500 Respiratory rate 18 /min Oma Donato Other [facility] Other 05-07-2023 09:40-0500 SaO2% (BldA) [Mass fraction] 99 % Oma Donato Other [facility] Other 05-07-2023 09:40-0500 Systolic blood pressure 129 mm[Hg] Oma Donato Other [facility] Other 05-06-2023 11:59-0500 Body height 170.2 cm Ruben Luo MD Work Phone: [facility] 05-06-2023 11:59-0500 Body mass index (BMI) [Ratio] 25.53 kg/m2 Ruben Luo MD Work Phone: [facility] 05-06-2023 11:59-0500 Body weight 73.94 kg Ruben Luo MD Work Phone: [facility] 04-30-2023 11:34-0500 Body height 170.2 cm Ruben Luo MD Work Phone: [facility] 04-30-2023 11:34-0500 Body mass index (BMI) [Ratio] 25.53 kg/m2 Ruben Luo MD Work Phone: [facility] 04-30-2023 11:34-0500 Body weight 73.94 kg Ruben Luo MD Work Phone: [facility] 04-30-2023 11:34-0500 Diastolic blood pressure 74 mm[Hg] Ruben Luo MD Work Phone: [facility] 04-30-2023 11:34-0500 Heart rate 70 /min Ruben Luo MD Work Phone: [facility] 04-30-2023 11:34-0500 SaO2% (BldA) [Mass fraction] 98 % Ruben Luo MD Work Phone: [facility] 04-30-2023 11:34-0500 Systolic blood pressure 122 mm[Hg] Ruben Luo MD Work Phone: [facility] 03-26-2023 09:00-0500 Body height 167.64 cm Oma Donato Other [facility] Other 03-26-2023 09:00-0500 Body mass index (BMI) [Ratio] 27.5 kg/m2 Oma Donato Other [facility] Other 03-26-2023 09:00-0500 Body temperature 96.6 [degF] Oma Donato Other [facility] Other 03-26-2023 09:00-0500 Body weight 77.29 kg Oma Donato Other [facility] Other 03-26-2023 09:00-0500 Respiratory rate 16 /min Oma Donato Other [facility] Other 03-26-2023 09:00-0500 SaO2% (BldA) [Mass fraction] 98 % Oma Donato Other [facility] Other 03-20-2023 10:30-0500 Body height 167.64 cm Ney Roman Other [facility] Other 03-20-2023 10:30-0500 Body mass index (BMI) [Ratio] 25.82 kg/m2 Ney Roman Other [facility] Other 03-20-2023 10:30-0500 Body temperature 97.8 [degF] Ney Roman Other [facility] Other 03-20-2023 10:30-0500 Body weight 72.58 kg Ney Roman Other [facility] Other 03-20-2023 10:30-0500 Diastolic blood pressure 64 mm[Hg] Ney Roman Other [facility] Other 03-20-2023 10:30-0500 SaO2% (BldA) [Mass fraction] 98 % Ney Roman Other [facility] Other 03-20-2023 10:30-0500 Systolic blood pressure 114 mm[Hg] Ney Roman Other [facility] Other 02-25-2023 13:40-0500 Body height 167.64 cm Oma Donato Other [facility] Other 02-25-2023 13:40-0500 Body mass index (BMI) [Ratio] 26.44 kg/m2 Oma Donato Other [facility] Other 02-25-2023 13:40-0500 Body temperature 97.2 [degF] Oma Donato Other [facility] Other 02-25-2023 13:40-0500 Body weight 74.3 kg Oma Donato Other [facility] Other 02-25-2023 13:40-0500 Diastolic blood pressure 64 mm[Hg] Oma Donato Other [facility] Other 02-25-2023 13:40-0500 Respiratory rate 18 /min Oma Donato Other [facility] Other 02-25-2023 13:40-0500 SaO2% (BldA) [Mass fraction] 99 % Oma Donato Other [facility] Other 02-25-2023 13:40-0500 Systolic blood pressure 124 mm[Hg] Oma Donato Other [facility] Other 01-29-2023 14:00-0400 Body height 167.64 cm Oma Donato Other [facility] Other 01-29-2023 14:00-0400 Body mass index (BMI) [Ratio] 27.4 kg/m2 Oma Donato Other [facility] Other 01-29-2023 14:00-0400 Body temperature 96.4 [degF] Oma Donato Other [facility] Other 01-29-2023 14:00-0400 Body weight 77.02 kg Oma Donato Other [facility] Other 01-29-2023 14:00-0400 Diastolic blood pressure 61 mm[Hg] Oma Donato Other [facility] Other 01-29-2023 14:00-0400 Respiratory rate 18 /min Oma Donato Other [facility] Other 01-29-2023 14:00-0400 SaO2% (BldA) [Mass fraction] 99 % Oma Donato Other [facility] Other 01-29-2023 14:00-0400 Systolic blood pressure 166 mm[Hg] Oma Donato Other [facility] Other 01-17-2023 12:20-0400 Body height 167.64 cm Oma Donato Other [facility] Other 01-17-2023 12:20-0400 Body mass index (BMI) [Ratio] 28.34 kg/m2 Oma Donato Other [facility] Other 01-17-2023 12:20-0400 Body temperature 97.3 [degF] Oma Donato Other [facility] Other 01-17-2023 12:20-0400 Body weight 79.65 kg Oma Donato Other [facility] Other 01-17-2023 12:20-0400 Diastolic blood pressure 66 mm[Hg] Oma Donato Other [facility] Other 01-17-2023 12:20-0400 Respiratory rate 18 /min Oma Donato Other [facility] Other 01-17-2023 12:20-0400 SaO2% (BldA) [Mass fraction] 98 % Oma Donato Other [facility] Other 01-17-2023 12:20-0400 Systolic blood pressure 149 mm[Hg] Oma Donato Other [facility] Other 12-06-2022 09:40-0400 Body height 167.64 cm Oma Donato Other [facility] Other 12-06-2022 09:40-0400 Body mass index (BMI) [Ratio] 27.79 kg/m2 Oma Donato Other [facility] Other 12-06-2022 09:40-0400 Body temperature 96.2 [degF] Oma Donato Other [facility] Other 12-06-2022 09:40-0400 Body weight 78.11 kg Oma Donato Other [facility] Other 12-06-2022 09:40-0400 Diastolic blood pressure 60 mm[Hg] Oma Donato Other [facility] Other 12-06-2022 09:40-0400 Respiratory rate 16 /min Oma Donato Other [facility] Other 12-06-2022 09:40-0400 SaO2% (BldA) [Mass fraction] 99 % Oma Donato Other [facility] Other 12-06-2022 09:40-0400 Systolic blood pressure 92 mm[Hg] Oma Donato Other [facility] Other 11-15-2022 13:20-0400 Body height 167.64 cm Oma Donato Other [facility] Other 11-15-2022 13:20-0400 Body temperature 96.5 [degF] Oma Donato Other [facility] Other 11-15-2022 13:20-0400 Diastolic blood pressure 64 mm[Hg] Oma Donato Other [facility] Other 11-15-2022 13:20-0400 Respiratory rate 18 /min Oma Donato Other [facility] Other 11-15-2022 13:20-0400 SaO2% (BldA) [Mass fraction] 98 % Oma Donato Other [facility] Other 11-15-2022 13:20-0400 Systolic blood pressure 130 mm[Hg] Oma Donato Other [facility] Other 10-25-2022 10:00-0400 Body height 167.64 cm Oma Donato Other [facility] Other 10-25-2022 10:00-0400 Body mass index (BMI) [Ratio] 27.79 kg/m2 Oma Donato Other [facility] Other 10-25-2022 10:00-0400 Body temperature 96.1 [degF] Oma Donato Other [facility] Other 10-25-2022 10:00-0400 Body weight 78.11 kg Oma Donato Other [facility] Other 10-25-2022 10:00-0400 Diastolic blood pressure 54 mm[Hg] Oma Donato Other [facility] Other 10-25-2022 10:00-0400 Respiratory rate 18 /min Oma Donato Other [facility] Other 10-25-2022 10:00-0400 SaO2% (BldA) [Mass fraction] 99 % Oma Donato Other [facility] Other 10-25-2022 10:00-0400 Systolic blood pressure 143 mm[Hg] Oma Donato Other [facility] Other 09-10-2022 16:20-0400 Body height 167.64 cm Oma Donato Other [facility] Other 09-10-2022 16:20-0400 Body mass index (BMI) [Ratio] 28.34 kg/m2 Oma Donato Other [facility] Other 09-10-2022 16:20-0400 Body temperature 97.2 [degF] Oma Donato Other [facility] Other 09-10-2022 16:20-0400 Body weight 79.65 kg Oma Donato Other [facility] Other 09-10-2022 16:20-0400 Diastolic blood pressure 64 mm[Hg] Oma Donato Other [facility] Other 09-10-2022 16:20-0400 Respiratory rate 18 /min Oma Donato Other [facility] Other 09-10-2022 16:20-0400 SaO2% (BldA) [Mass fraction] 98 % Oma Donato Other [facility] Other 09-10-2022 16:20-0400 Systolic blood pressure 128 mm[Hg] Oma Donato Other [facility] Other 08-22-2022 10:30-0400 Body height 167.64 cm Dasia Flowers Other [facility] Other 08-22-2022 10:30-0400 Body mass index (BMI) [Ratio] 27.92 kg/m2 Dasia Flowers Other [facility] Other 08-22-2022 10:30-0400 Body temperature 97.8 [degF] Dasia Flowers Other [facility] Other 08-22-2022 10:30-0400 Body weight 78.47 kg Dasia Flowers Other [facility] Other 05-17-2023 10:30-0400 Diastolic blood pressure 58 mm[Hg] Dasia Flowers Other [facility] Other 08-22-2022 10:30-0400 SaO2% (BldA) [Mass fraction] 98 % Dasia Flowers Other [facility] Other 08-22-2022 10:30-0400 Systolic blood pressure 96 mm[Hg] Dasia Flowers Other [facility] Other 08-14-2022 10:20-0400 Body height 167.64 cm Dorinda [employer] Other [facility] Other 08-14-2022 10:20-0400 Body mass index (BMI) [Ratio] 27.92 kg/m2 [facility]re [facility] Other [facility] Other 08-14-2022 10:20-0400 Body temperature 96.8 [degF] Dorinda [employer] Other [facility] Other 08-14-2022 10:20-0400 Body weight 78.47 kg Dorinda [employer] Other [facility] Other 08-14-2022 10:20-0400 Diastolic blood pressure 57 mm[Hg] Aziz [facility] Other [facility] Other 08-14-2022 10:20-0400 Respiratory rate 18 /min Azd[facility]re [facility] Other [facility] Other 08-14-2022 10:20-0400 SaO2% (BldA) [Mass fraction] 99 % Azdandre Chenhous Other [facility] Other 08-14-2022 10:20-0400 Systolic blood pressure 98 mm[Hg] Dorinda Motley Other [facility] Other 07-26-2022 15:24-0400 Body temperature 98.01 [degF] Gabe Harris MD Work Phone: [facility] 07-26-2022 15:24-0400 Diastolic blood pressure 70 mm[Hg] Gabe Harris MD Work Phone: [facility] 07-26-2022 15:24-0400 Heart rate 74 /min Gabe Harris MD Work Phone: [facility] 07-26-2022 15:24-0400 Respiratory rate 18 /min Gabe Harris MD Work Phone: [facility] 07-26-2022 15:24-0400 SaO2% (BldA) [Mass fraction] 98 % Gabe Harris MD Work Phone: [facility] 07-26-2022 15:24-0400 Systolic blood pressure 114 mm[Hg] Gabe Harris MD Work Phone: [facility] 07-23-2022 03:33-0400 SaO2% (BldA) [Mass fraction] 97 % Gabe Harris MD Work Phone: [facility] 07-19-2022 18:09-0400 Body height 170.2 cm Gabe Harris MD Work Phone: [facility] 07-19-2022 18:09-0400 Body mass index (BMI) [Ratio] 26.47 kg/m2 Gabe Harris MD Work Phone: [facility] 07-19-2022 18:09-0400 Body weight 76.66 kg Gabe Harris MD Work Phone: [facility] 07-17-2022 09:40-0400 Body height 167.64 cm Oma Donato Other [facility] Other 07-17-2022 09:40-0400 Body mass index (BMI) [Ratio] 27.98 kg/m2 Oma Donato Other [facility] Other 07-17-2022 09:40-0400 Body temperature 98.3 [degF] Oma Donato Other [facility] Other 07-17-2022 09:40-0400 Body weight 78.65 kg Oma Donato Other [facility] Other 07-17-2022 09:40-0400 Diastolic blood pressure 60 mm[Hg] Oma Donato Other [facility] Other 07-17-2022 09:40-0400 Respiratory rate 18 /min Oma Donato Other [facility] Other 07-17-2022 09:40-0400 SaO2% (BldA) [Mass fraction] 97 % Oma Donato Other [facility] Other 07-17-2022 09:40-0400 Systolic blood pressure 124 mm[Hg] Oma Donato Other [facility] Other 06-21-2022 10:40-0400 Body height 167.64 cm Oma Donato Other [facility] Other 06-21-2022 10:40-0400 Body mass index (BMI) [Ratio] 28.5 kg/m2 Oma Donato Other [facility] Other 06-21-2022 10:40-0400 Body temperature 96.7 [degF] Oma Donato Other [facility] Other 06-21-2022 10:40-0400 Body weight 80.11 kg Oma Donato Other [facility] Other 06-21-2022 10:40-0400 Diastolic blood pressure 50 mm[Hg] Oma Donato Other [facility] Other 06-21-2022 10:40-0400 Respiratory rate 18 /min Oma Donato Other [facility] Other 06-21-2022 10:40-0400 SaO2% (BldA) [Mass fraction] 96 % Oma Donato Other [facility] Other 06-21-2022 10:40-0400 Systolic blood pressure 102 mm[Hg] Oma Donato Other [facility] Other 05-10-2022 10:00-0500 Body height 167.64 cm Oma Donato Other [facility] Other 05-10-2022 10:00-0500 Body mass index (BMI) [Ratio] 29.66 kg/m2 Oma Donato Other [facility] Other 05-10-2022 10:00-0500 Body temperature 96.6 [degF] Oma Donato Other [facility] Other 05-10-2022 10:00-0500 Body weight 83.37 kg Oma Donato Other [facility] Other 05-10-2022 10:00-0500 Diastolic blood pressure 53 mm[Hg] Oma Donato Other [facility] Other 05-10-2022 10:00-0500 Respiratory rate 18 /min Oma Donato Other [facility] Other 05-10-2022 10:00-0500 SaO2% (BldA) [Mass fraction] 98 % Oma Donato Other [facility] Other 05-10-2022 10:00-0500 Systolic blood pressure 134 mm[Hg] Oma Donato Other [facility] Other 05-07-2022 09:40-0500 Body height 167.64 cm Oma Donato Other [facility] Other 05-07-2022 09:40-0500 Body mass index (BMI) [Ratio] 29.21 kg/m2 Oma Donato Other [facility] Other 05-07-2022 09:40-0500 Body temperature 98.7 [degF] Oma Donato Other [facility] Other 05-07-2022 09:40-0500 Body weight 82.1 kg Oma Donato Other [facility] Other 01-30-2023 09:40-0500 Diastolic blood pressure 70 mm[Hg] Oma Donato Other [facility] Other 05-07-2022 09:40-0500 Respiratory rate 18 /min Oma Donato Other [facility] Other 05-07-2022 09:40-0500 SaO2% (BldA) [Mass fraction] 98 % Oma Donato Other [facility] Other 05-07-2022 09:40-0500 Systolic blood pressure 130 mm[Hg] Oma Donato Other [facility] Other 04-16-2022 10:18-0500 Diastolic blood pressure 58 mm[Hg] MD Ruben Luo Work Phone: [facility] 04-16-2022 10:18-0500 Heart rate 67 /min MD Ruben Luo Work Phone: [facility] 04-16-2022 10:18-0500 Respiratory rate 16 /min MD Ruben Luo Work Phone: [facility] 04-16-2022 10:18-0500 SaO2% (BldA) [Mass fraction] 98 % MD Ruben Luo Work Phone: [facility] 04-16-2022 10:18-0500 Systolic blood pressure 110 mm[Hg] MD Ruben Luo Work Phone: [facility] 04-16-2022 08:34-0500 Body height 170.18 cm MD Ruben Luo Work Phone: [facility] 04-16-2022 08:34-0500 Body temperature 98.3 [degF] MD Ruben Luo Work Phone: [facility] 04-16-2022 08:34-0500 Body weight 78.01 kg MD Ruben Luo Work Phone: [facility] 12-14-2021 10:20-0400 Body height 167.64 cm Oma Donato Other [facility] Other 12-14-2021 10:20-0400 Body mass index (BMI) [Ratio] 28.66 kg/m2 Oma Donato Other [facility] Other 12-14-2021 10:20-0400 Body temperature 96.7 [degF] Oma Donato Other [facility] Other 12-14-2021 10:20-0400 Body weight 80.56 kg Oma Donato Other [facility] Other 12-14-2021 10:20-0400 Diastolic blood pressure 61 mm[Hg] Oma Donato Other [facility] Other 12-14-2021 10:20-0400 Respiratory rate 18 /min Oma Donato Other [facility] Other 12-14-2021 10:20-0400 SaO2% (BldA) [Mass fraction] 99 % Oma Donato Other [facility] Other 12-14-2021 10:20-0400 Systolic blood pressure 138 mm[Hg] Oma Donato Other [facility] Other 09-21-2021 09:40-0400 Body height 167.64 cm Oma Donato Other [facility] Other 09-21-2021 09:40-0400 Body mass index (BMI) [Ratio] 29.57 kg/m2 Oma Donato Other [facility] Other 09-21-2021 09:40-0400 Body temperature 96.8 [degF] Oma Donato Other [facility] Other 09-21-2021 09:40-0400 Body weight 83.1 kg Oma Donato Other [facility] Other 09-21-2021 09:40-0400 Diastolic blood pressure 63 mm[Hg] Oma Donato Other [facility] Other 09-21-2021 09:40-0400 Respiratory rate 18 /min Oma Donato Other [facility] Other 09-21-2021 09:40-0400 SaO2% (BldA) [Mass fraction] 98 % Oma Donato Other [facility] Other 09-21-2021 09:40-0400 Systolic blood pressure 116 mm[Hg] Oma Donato Other [facility] Other 08-14-2021 15:20-0400 Body height 167.64 cm Oma Donato Other [facility] Other 08-14-2021 15:20-0400 Body mass index (BMI) [Ratio] 29.7 kg/m2 Oma Donato Other [facility] Other 08-14-2021 15:20-0400 Body temperature 98.4 [degF] Oma Donato Other [facility] Other 08-14-2021 15:20-0400 Body weight 83.46 kg Oma Donato Other [facility] Other 08-14-2021 15:20-0400 Diastolic blood pressure 60 mm[Hg] Oma Donato Other [facility] Other 08-14-2021 15:20-0400 Respiratory rate 18 /min Oma Donato Other [facility] Other 08-14-2021 15:20-0400 SaO2% (BldA) [Mass fraction] 99 % Oma Donato Other [facility] Other 08-14-2021 15:20-0400 Systolic blood pressure 152 mm[Hg] Oma Donato Other [facility] Other 08-10-2021 11:00-0400 Body height 167.64 cm Ney Roman Other [facility] Other 08-10-2021 11:00-0400 Body mass index (BMI) [Ratio] 29.21 kg/m2 Ney Roman Other [facility] Other 08-10-2021 11:00-0400 Body temperature 96.9 [degF] Ney Roman Other [facility] Other 08-10-2021 11:00-0400 Body weight 82.1 kg Ney Roman Other [facility] Other 08-10-2021 11:00-0400 Diastolic blood pressure 58 mm[Hg] Ney Roman Other [facility] Other 08-10-2021 11:00-0400 SaO2% (BldA) [Mass fraction] 95 % Ney Roman Other [facility] Other 08-10-2021 11:00-0400 Systolic blood pressure 130 mm[Hg] Ney Roman Other [facility] Other Encounters Encounter Date Encounter Type Care Provider Facility Start: 07-31-2023 ambulatory Natan German caro, PA-C Facility:[facility] Start: 06-24-2023 End: 06-24-2023 ambulatory [facility] Start: 05-07-2023 End: 05-07-2023 ambulatory Oma Sams Other [facility] Other Start: 05-07-2023 Office outpatient vi sit 15 minutes [facility] Start: 05-06-2023 End: 05-07-2023 ambulatory RUBEN LUO Not Available Start: 05-06-2023 End: 05-06-2023 Office outpatient visit 15 minutes Ruben Luo MD Work Phone: [facility] Comment on above: Injury of right ankl e, initial encounter (Primary Dx); Fall (on) (from) other stairs and steps, initial encounter; Right ankle swelling; Overweight with body mass index (BMI) 25.0-29.9 Start: 04-30-2023 End: 04-30-2023 ambulatory URBEN LUO Not Available Start: 04-30-2023 End: 04-30-2023 Office outpatient visit 25 minutes Ruben Luo MD Work Phone: [facility] Comment on above: Stage 4 chronic kidn ey disease (CMS/HCC) (Primary Dx); Primary hypertension (CMS/HCC); Hypertensive kidney disease with stage 4 chronic kidney disease (CMS/HCC); Nephrotic syndrome; Type 2 diabetes mellitus with stage 4 chronic kidney disease, without long-term current use of insulin ([facility]); Hyperlipidemia associated with type 2 diabetes mellitus ([facility]/HCC); Diabetic peripheral neuropathy ([facility]); Polypharmacy; Overweight with body mass index (BMI) 25.0-29.9; Former smoker, stopped smoking in distant past; Benign essential HTN (CMS/HCC); Mild intermittent asthma without complication ([facility]); Coronary arteriosclerosis ([facility]) Start: 04-15-2023 End: 04-15-2023 ambulatory Oma Donato Other [facility] Other Start: 04-15-2023 Telephone encounter Oma Donato [facility] Start: 03-26-2023 End: 03-26-2023 ambulatory Oma Donato Other [facility] Other Start: 03-26-2023 Office outpatient vi sit 15 minutes Oma Donato [facility] Start: 03-20-2023 Office outpatient vi sit 15 minutes Ney Roman [facility] Start: 03-20-2023 End: 03-20-2023 ambulatory MD Ruben Luo Work Phone: [facility] Other Start: 03-20-2023 End: 03-20-2023 Patient encounter procedure MD Ruben Luo Work Phone: [facility] Start: 02-25-2023 (INJECTION) INJECTION Oma Donato [facility] Start: 02-25-2023 End: 02-25-2023 ambulatory Oma Donato Other [facility] Other Start: 02-20-2023 End: 02-20-2023 ambulatory [facility] Start: 02-11-2023 End: 02-11-2023 ambulatory Oma Donato Other [facility] Other Start: 02-11-2023 Telephone encounter Oma Donato [facility] Start: 01-31-2023 End: 02-01-2023 ambulatory Ruben Luo MD Facility:[facility] Start: 01-30-2023 End: 01-31-2023 ambulatory Ruben Luo MD Facility:[facility] Start: 01-29-2023 End: 01-29-2023 ambulatory Oma Donato Other [facility] Other Start: 01-29-2023 Office outpatient vi sit 15 minutes Oma Donato [facility] Start: 01-17-2023 (INJECTION) INJECTION Oma Donato [facility] Start: 01-17-2023 End: 01-17-2023 ambulatory Oma Donato Other [facility] Other Start: 01-11-2023 End: 01-12-2023 ambulatory RUB[facility] Start: 01-11-2023 End: 01-12-2023 Encounter for preprocedural laboratory examination [facility] Start: 01-10-2023 End: 01-10-2023 Encounter for preprocedural cardiovascular examination [facility] Start: 01-10-2023 Encounter for other preprocedural examination [facility] Start: 01-10-2023 End: 01-13-2023 ambulatory [facility] Start: 01-10-2023 End: 01-13-2023 Encounter for preprocedural respiratory examination [facility] Start: 01-08-2023 End: 01-09-2023 ambulatory Ruben Luo MD Facility:[facility] Start: 12-25-2022 End: 12-28-2022 ambulatory [facility] Start: 12-06-2022 End: 12-06-2022 ambulatory Oma Donato Other [facility] Other Start: 12-06-2022 Office outpatient vi sit 15 minutes Oma Donato [facility] Start: 11-15-2022 End: 11-15-2022 ambulatory Oma Donato Other [facility] Other Start: 11-15-2022 Office outpatient vi sit 15 minutes Oma Donato [facility] Start: 10-25-2022 End: 10-25-2022 ambulatory Oma Donato Other [facility] Other Start: 10-25-2022 Office outpatient vi sit 15 minutes Oma Donato [facility] Start: 09-10-2022 End: 09-10-2022 ambulatory Oma Donato Other [facility] Other Start: 09-10-2022 Office outpatient vi sit 15 minutes Oma Donato [facility] Start: 08-22-2022 End: 08-22-2022 ambulatory Dasia Jimenezmary Other [facility] Other Start: 08-22-2022 Patient encounter procedure Dasia Kristie [facility] Start: 08-20-2022 End: 08-20-2022 ambulatory Ruben Luo Facility:[facility] Start: 08-14-2022 End: 08-14-2022 ambulatory Aziz Bakhous Other [facility] Other Start: 08-14-2022 Office outpatient vi sit 15 minutes Aziz Bakhous [facility] Start: 08-10-2022 End: 08-11-2022 ambulatory OMA DONATO Facility: Start: 08-08-2022 End: 08-09-[address] RUBEN LUO . Facility:[facility] Start: 07-19-2022 End: 07-26-2022 Evaluation and management of inpatient OLUREMI A DYAN [facility] Start: 07-19-2022 End: 07-26-2022 Evaluation and management of inpatient Gabe Harris MD Work Phone: [facility] Onc [facility] 5K Comment on above: Lumbar stenosis with neurogenic claudication (Primary Dx) Start: 07-18-2022 End: 07-18-2022 ambulatory [facility] Start: 07-17-2022 End: 07-17-2022 ambulatory Oma Donato Other [facility] Other Start: 07-17-2022 Office outpatient vi sit 15 minutes Oma Donato [facility] Start: 07-12-2022 End: 07-13-2022 ambulatory OMA DONATO Facility:[facility]1 Start: 07-12-2022 End: 07-13-[address] RUBEN LUO . Facility:[facility]1 Start: 2022 Encounter for preprocedural laboratory examination DR DOCTOR BARROSO [facility] Start: 2022 Encounter for preprocedural respiratory examination DR DOCTOR BARROSO [facility] Start: 2022 End: 07-06-2022 ambulatory SOULEYMANEDENILSON [place] [facility] Start: 2022 Patient encounter procedure RUBEN [facility] Start: 2022 End: 20[address] Patient [address] procedure [address] 2 [facility] Start: 2022 End: 2022 Subsequent hospital visit by physician Str Xr Rm 2 [facility] Comment on above: Examination for norm al comparison for clinical research Start: 07-04-2022 End: 07-04-2022 ambulatory Oma Donato Other [facility] Other Start: 07-04-2022 Telephone encounter Oma Donato [facility] Start: 07-02-2022 End: 07-03-[address] DOCTOR BARROSO Facility:[facility] Start: 07-02-2022 End: 07-03-2022 Encounter for preprocedural respiratory examination DR DOCTOR BARROSO Facility:[facility]1 Start: 06-21-2022 End: 06-21-2022 ambulatory Oma Donato Other [facility] Other Start: 06-21-2022 Office outpatient vi sit 15 minutes Oma Donato [facility] [place] Start: 06-21-2022 Telephone encounter Oma Donato [facility] Start: 06-19-2022 End: 06-20-2022 ambulatory OMA DONATO Facility:[facility]1 Start: 05-30-2022 End: 06-02-2022 [facility] Start: 05-30-2022 End: 06-01-2022 Subsequent hospital visit [facility] Comment on above: Osteopenia of lumbar spine Spinal stenosis, lum bar region, without neurogenic claudication; Right foot drop Start: 05-10-2022 (INJECTION) INJECTION Oma Donato [facility] Start: 05-10-2022 End: 05-10-2022 ambulatory Oma Donato Other [facility] Other Start: 05-08-2022 End: 05-11-2022 ambulatory OSIEL Ryan [facility] Start: 05-08-2022 End: 05-10-2022 Subsequent hospital visit by physician Dhruv [facility] [employer] [facility] Comment on above: 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; Lumbar spondylosis; Postlaminectomy syndrome, lumbar; Spinal stenosis of lumbar region with neurogenic claudication Start: 05-07-2022 Office outpatient vi sit 25 minutes Oma Donato [facility] Start: 05-07-2022 Telephone encounter Oma Donato [facility] Start: 05-07-2022 End: 05-08-2022 ambulatory OMA DONATO [place] [facility] Other Start: 04-16-2022 End: 04-16-2022 Admission to same day surgery center MD Ruben Luo Work Phone: [facility] Work Phone: Start: 04-16-2022 End: 04-16-2022 ambulatory MD Ruben Luo Work Phone: [facility] Work Phone: Start: 04-13-2022 End: 04-14-[address] RUBEN LUO . Facility:[facility]1 Start: 04-12-2022 End: 04-12-2022 ambulatory MD Ruben Luo Work Phone: [facility] Work Phone: Start: 04-12-2022 End: 04-12-2022 Patient encounter procedure MD Ruben Luo Work Phone: [facility] Work Phone: Start: 01-22-2022 Telephone encounter [facility] Start: 01-22-2022 End: 01-23-2022 ambulatory OMA DONATO [place] [employer] Other Start: 12-27-2021 End: 12-27-[address] RUBEN LUO . Facility:[facility]1 Start: 12-14-2021 End: 12-14-2021 ambulatory Oma Donato Other [facility] Other Start: 12-14-2021 Office outpatient vi sit 25 minutes Oma Donato [facility] Start: 12-09-2021 End: 12-10-2021 ambulatory OMA DONATO Facility:[facility]1 Start: 10-13-2021 End: 10-14-[address] RUBEN LUO . Facility:[facility] Start: 10-07-2021 End: 10-08-[address] RUBEN LUO . Facility:[facility]1 Start: 09-21-2021 End: 09-21-2021 ambulatory Oma Donato Other [facility] Other Start: 09-21-2021 Office outpatient vi sit 25 minutes Oma Donato [facility] Start: 09-15-2021 End: 09-16-[address] RUBEN LUO . Facility:[facility]1 Start: 09-01-2021 End: 09-02-[address] RUBEN LUO . Facility: Start: 08-14-2021 End: 08-14-2021 ambulatory Oma Donato Other [facility] Other Start: 08-14-2021 Office outpatient ne w 45 minutes Oma Donato [facility] Start: 08-10-2021 End: 08-10-2021 ambulatory Ney Roman Other [facility] Other Start: 08-10-2021 Office outpatient vi sit 15 minutes Ney Roman [facility] Start: 04-22-2019 End: 04-22-2019 Subsequent hospital visit by physician Ruben Luo MD Other Phone: [facility] Laboratory Comment on above: Enlarged prostate; BPH with obstruction/lower urinary tract symptoms; Abnormal digital rectal exam; Erectile dysfunction, unspecified erectile dysfunction type Start: 09-12-2018 End: 09-13-2018 Patient encounter procedure PROVIDER UNKNOWN Facility:[facility] Start: 01-17-2018 End: 01-18-2018 Patient encounter procedure GABYAGUSTO ORTIZ Facility:[facility] Procedures Date Procedure Procedure Detail [...] Work Phone: Start: 07-26-2022 Anion gap [Moles/Vol] Victorina Acuna MD Work Phone: Start: 07-26-2022 Basic [...] Work Phone: Start: 07-25-2022 Anion gap [Moles/Vol] Itzel KNOWLESC Work Phone: Start: 07-25-2022 Basic metabolic pane l calcium total Sharon Ellison PA-C Work Phone: Start: 07-25-2022 GLOMERULAR FILTRATIO N RATE, ESTIMATED Sharon RUCKER-C Work Phone: Start: 07-25-2022 Gluc bld gluc mntr d ev cleared fda spec home use Sharon Ellison PA-C Work Phone: Start: 07-24-2022 Gluc bld gluc mntr d ev cleared fda spec home use Sharon Ellison PA-C Work Phone: Start: 07-24-2022 Gluc bld gluc mntr d ev cleared fda spec home use Sharon Ellison PA-C Work Phone: Start: 07-24-2022 Potassium serum plasma/whole [...] Sharon Ellison PA-C Work Phone: Start: 07-23-2022 Anion gap [Moles/Vol] S tameka RUCKER-Sánchez Work Phone: Start: 07-23-2022 End: 07-23-2022 Basic metabolic panel calcium total Sharonlarisa RUCKER-Sánchez Work Phone: Start: 07-23-2022 GLOMERULAR FILTRATIO N RATE, ESTIMATED Sharon RUCKER-Sánchez Work Phone: Start: 07-23-2022 Gas panel - Arterial blood Kylie Acuna MD Work Phone: Start: 07-23-2022 Urinalysis microscop ic only Kylie Acuna MD Work Phone: Start: 07-22-2022 Gluc bld gluc mntr d ev cleared fda spec home use Sharon Ellison PA-C Work Phone: Start: 07-22-2022 Anion gap [Moles/Vol] O pancho Acuna MD Work Phone: Start: 07-22-2022 Basic metabolic pane l calcium total Kylie Acuna MD Work Phone: Start: 07-22-2022 GLOMERULAR FILTRATIO N RATE, ESTIMATED Kylie Acuna MD Work Phone: Start: 07-22-2022 Gluc bld gluc mntr d ev cleared fda spec home use Sharon Ellison PA-C Work Phone: Start: 07-22-2022 Gluc bld gluc mntr d ev cleared fda spec home use Sharon RUCKER-C Work Phone: Start: 07-22-2022 Gluc bld gluc mntr d ev cleared fda spec home use Sharon RUCKER-Sánchez Work Phone: Start: 07-22-2022 Anion gap [Moles/Vol] S tameka RUCKER-C Work Phone: Start: 07-22-2022 Basic metabolic pane l calcium total Sharon Ellison PA-C Work Phone: Start: 07-22-2022 GLOMERULAR FILTRATIO N RATE, ESTIMATED Sharon Terra VÁSQUEZ Work Phone: Start: 07-21-2022 Gluc bld gluc mntr d ev cleared fda spec home use Sharon Terra VÁSQUEZ Work Phone: Start: 07-21-2022 Gluc bld gluc mntr d ev cleared fda spec home use Sharon Terra RUCKER-C Work Phone: Start: 07-21-2022 Gluc bld gluc mntr d ev cleared fda spec home use Sharon Terra RUCKER-C Work Phone: Start: 07-21-2022 Gluc bld gluc mntr d ev cleared fda spec home use Sharonlarisa Ellison PA-C Work Phone: Start: 07-21-2022 Anion gap [Moles/Vol] S tameka Terra RUCKER-Sánchez Work Phone: Start: 07-21-2022 Basic metabolic pane l calcium total Sharonlarisa Ellison PA-C Work Phone: Start: 07-21-2022 GLOMERULAR FILTRATIO N RATE, ESTIMATED Sharon Terra VÁSQUEZ Work Phone: Start: 07-20-2022 Gluc bld gluc mntr d ev cleared fda spec home use Sharonlarisa Ellison PA-C Work Phone: Start: 07-20-2022 Gluc [...] Work Phone: Comment on above: Performed at [facility] [address] [place] [id number] Start: 07-19-2022 Anion gap [Moles/Vol] S tameka [...] lum bar w/o contrast material Osiel Elaine [employer] Work Phone: Start: 04-16-2022 Colonoscopy MD Ruben [...] CORONARY ARTERY SHIKHA O S\T\I VADIM V ANYA Start: 01-16-2017 Colonoscopy Ruben levin MD Work Phone: Laboratory test resu lt abnormal Ney Liaocassidy Other Plan of Treatment Date Care Activity Detail Author Start: 01-16-2027 Screening for malign ant neoplasm of colon [facility] Start: 06-08-2024 Glaucoma screening Diabetes: R etinopathy Screening [facility] Start: 07-27-2023 GFR test (Diabetes, CKD 3-4, OR last GFR 15-59) GFR test (Diabetes, CKD 3-4, OR last GFR 15-59) [facility] Start: 07-21-2023 Hemoglobin A1c measurement A1C test (Diabetic or Prediabetic) [facility] Start: 06-26-2023 Medicare Annual Well ness (AWV) Medicare Annual Wellness (AWV) [facility] Start: 04-13-2023 Hemoglobin A1c measurement Diabetes: Hemoglobin A1C [facility] Start: 07-20-2022 End: 07-20-2022 Admission to same day surgery center 07/20/2022 Surgery IP Unit Gabe Harris MD [facility] [place] [address] [place] [address] L2-S1 REVISION DECOMPRESSION WITH L2-PELVIS FUSION STRZ [...] Gabe Harris MD [address] [place] [address] STRZ OR Start: 04-16-2022 [facility] Start: 04-22-2019 Annual Wellness Visi t (AWV) Annual Wellness Visit (AWV) [facility] Start: 12-07-2018 Influenza vaccination Flu vaccine (# 1) [facility] Phone: Start: 04-04-2016 Creatinine monitoring Creatinine mon itoring [employer] Phone: Start: 04-04-2016 Potassium monitoring Potassium monit oring [employer] Phone: Start: 2014 Abdominal aortic aneurysm screening AAA screen [facility] Start: 2014 Pneumococcal 65+ yea rs Vaccine (1 of 1 - PPSV23) Pneumococcal 65+ years Vaccine (1 of 1 - PPSV23) [facility] Phone: Start: 07-06-1999 Colon cancer screen colonoscopy Colon cancer screen colonoscopy [facility] Phone: Start: 07-06-1999 Shingles Vaccine (1 of 2) Shingles Vaccine (1 of 2) [facility] Start: 1994 Screening for malign ant neoplasm of colon [facility] Start: 1989 Lipid panel Lipids [employer] Start: 1989 Lipid screen Lipid screen [employer] Work Phone: Start: 1968 DTaP/Tdap/Td vaccine (1 - Tdap) DTaP/Tdap/Td vaccine (1 - Tdap) [facility] Start: 07-06-1967 Glaucoma screening [facility]abetic [facility] exam [facility] Start: 07-06-1967 Hepatitis C screening Hepatitis C sc reen [facility] Start: 07-06-1967 Urine screening for protein Diabetic Alb to Cr ratio (uACR) test [facility] Start: 1961 Depression Screen Depression Screen [facility] Start: 1960 DTaP/Tdap/Td vaccine (1 - Tdap) DTaP/Tdap/Td vaccine (1 - Tdap) [facility] Phone: Start: 07-06-1959 Diabetic foot examination Diabetic foot exam [facility] Start: 07-06-1959 Lipid panel Lipids [facility] [employer] Start: 1949 AAA screen [facility] Work Phone: Start: 1949 Hepatitis C screen Hepatitis C scree n [facility] Phone: Start: 1949 Screening for malign ant neoplasm of colon [facility] End: 04-22-2019 Bacteria identified in Urine by Culture Urine Culture Microbiology Routine 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 Abnormal digital rectal exam Erectile dysfunction, unspecified erectile dysfunction type 1 Occurrences starting 04/22/2019 until 04/22/2019 [facility] Phone: Comment on above: 1 Occurrences starti ng 04/22/2019 until 04/22/2019 Bacteria identified in Urine by Culture Urine Culture Microbiology Routine 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 Abnormal digital rectal exam Erectile dysfunction, unspecified erectile dysfunction type 04/22/2019 6:56 PM EST [facility] Phone: End: 05-30-2022 CT LUMBAR SPINE WO CONTRAST [facility] [employer] Phone: Comment on above: 1 Occurrences starti ng 05/30/2022 until 05/30/2022 End: 05-30-2022 CT THORACIC SPINE WO CONTRAST [facility] Phone: Comment on above: 1 Occurrences starti ng 05/30/2022 until 05/30/2022 Glucose [Mass/volume ] in Serum or Plasma [facility] Phone: Comment on above: 4X Daily (AC & HS) u ntil discontinued starting 07/19/2022, 29 completed As Needed until disc ontinued starting 07/19/2022 End: 07-20-2022 Hemoglobin and Hematocrit Hemoglobin and Hematocrit Lab Routine Post Transfusion Post Transfusion Post Transfustion until discontinued starting 07/19/2022 [employer] Phone: Comment on above: Post Transfusion Pos t Transfusion Post Transfustion until discontinued starting 07/19/2022 Initiate RT Inhaler-Nebulizer Bronchodilator Protocol Initiate RT Inhaler-Nebulizer Bronchodilator Protocol Respiratory Care Routine As Needed until discontinued starting 07/21/2022 [employer] Phone: Comment on above: As Needed until disc ontinued starting 07/21/2022 Oxygen therapy [[facility] Data Set] Initiate Oxygen Therapy Protocol Respiratory Care Routine As Needed until discontinued starting 07/20/2022 [employer] Phone: Comment on above: As Needed until disc ontinued starting 07/20/2022 Patient Education Colon Polypectomy (DC) [facility] Work Phone: Spirometry panel Incentive erma metry Respiratory Care Routine Every 2hr while awake until discontinued starting 07/20/2022 [employer] Work Phone: Comment on above: Every 2hr while awak e until discontinued starting 07/20/2022 Immunizations Immunization Date Immunization Notes Care Provider [facility] 03-20-2023 Influenza, Seasonal, Quadrivalent, Adjuvanted Ruben Luo MD Work Phone: [facility] 02-03-2022 Moderna Bivalent Booster Vaccination Ruben Luo MD Work Phone: [facility] 02-03-2022 Moderna SARS-CoV-2 Booster Vaccination Ruben Luo MD Work Phone: [facility] 02-03-2022 Moderna SARS-CoV-2 Vaccination Ruben Luo MD Work Phone: [facility] 02-03-2022 SARS-CoV-2, Unspecified Ruiz Luo MD Work Phone: [facility] 12-19-2021 influenza, high dose seasonal, preservative-free Ruben Luo MD Work Phone: [facility] 12-19-2021 Influenza, High-dose Seasonal, Quadrivalent, Preservative Free Ruben Luo MD Work Phone: [facility] 02-04-2021 Moderna SARS-CoV-2 Vaccination Ruben Luo MD Work Phone: [facility] 02-03-2021 Moderna SARS-CoV-2 Booster Vaccination Ruben Luo MD Work Phone: [facility] 01-08-2021 Influenza, High-dose Seasonal, Quadrivalent, Preservative Free Ruben Luo MD Work Phone: [facility] 06-13-2020 Moderna SARS-CoV-2 Vaccination Ruben Luo MD Work Phone: [facility] 05-15-2020 Moderna SARS-CoV-2 Vaccination Ruben Luo MD Work Phone: [facility] 01-15-2020 influenza, high dose seasonal, preservative-free Ruben Luo MD Work Phone: [facility] 01-14-2020 Influenza, High-dose Seasonal, Quadrivalent, Preservative Free Ruben Luo MD Work Phone: [facility] 12-22-2019 pneumococcal polysaccharide vaccine, 23 valent Ruben Luo MD Work Phone: [facility] 12-22-2019 Seasonal, quadrivale nt, recombinant, injectable influenza vaccine, preservative free Ruben Luo MD Work Phone: [facility] 12-13-2018 Seasonal trivalent influenza vaccine, adjuvanted, preservative free uRben Luo MD Work Phone: [facility] 12-01-2018 pneumococcal conjuga te vaccine, 13 valent Ruben Lou MD Work Phone: [facility] 01-29-2018 Seasonal trivalent influenza vaccine, adjuvanted, preservative free Ruben Luo MD Work Phone: [facility] 01-19-2017 Seasonal trivalent influenza vaccine, adjuvanted, preservative free Ruben Luo MD Work Phone: [facility] 01-19-2017 influenza, high dose seasonal, preservative-free Ney Roman Other [facility] [employer] Other 02-11-2016 influenza, high dose seasonal, preservative-free Ruben Luo MD Work Phone: [facility] 04-06-2014 influenza, seasonal, injectable Ruben Luo MD Work Phone: [facility] 04-06-2014 influenza, seasonal, injectable, preservative free Ruben Luo MD Work Phone: [facility] 04-06-2014 influenza, high dose seasonal, preservative-free Ney Roman Other [facility] [employer] Other 04-06-2014 influenza, injectabl e, quadrivalent, preservative free Oma Donato Other [facility] [employer] Other 05-01-2013 seasonal influenza, intradermal, preservative free Ruben Luo MD Work Phone: [facility] 01-17-2011 pneumococcal polysaccharide vaccine, 23 valent Ruben Luo MD Work Phone: [facility] 01-29-2010 pneumococcal polysaccharide vaccine, 23 vallandon Luo MD Work Phone: [facility] Payers Date Payer Category Payer Self-pay [id number] 2019 Unknown [employer] [address] xxxxxxxxxxxx 2019-Present [phone] [address] [place] [address] xxxxxxxxxxxx [id number] 2019 Unknown [id number] 1.13.693.2.7.3 .[id number] 2014 Medicare MEDICARE MEDICAR E PART A AND B xxxxxxxxxxx 2014-Present [phone] [address] [address] [place] [address] xxxxxxxxxxx [id number] .[id number] 2014 Medicare [id number] 1.13.693.2.7.3 .[id number] 1959 Medicare [id number] 1959 Unknown [id number] .16.840.1.028085.19 1949 Unknown [id number] 2.16.840.1.187882.3.579.2.647 1949 Unknown [id number] 2.16.840.1.747158.3.579.2.647 1949 Unknown [id number] 2.16.840.1.320043.3.579.2.93 1949 Unknown [id number] 2.16.840.1.185242.3.579.2.93 1949 Unknown [id number] 2.16.840.1.338903.3.579.2.593 1949 Unknown [id number] 2.16.840.1.493857.3.579.2.593 1949 Unknown [id number] 2.16.840.1.702678.3.579.2.593 1949 Unknown [id number] 2.16.840.1.857212.3.579.2.593 1949 Unknown [id number] 2.16.840.1.016332.3.579.2.593 1949 Unknown [id number] 2.16.840.1.182520.3.579.2.593 1949 Unknown [id number] 2.16.840.1.073606.3.579.2.593 1949 Unknown [id number] 2.16.840.1.482930.3.579.2.593 1949 Unknown [id number] 2.16.840.1.994879.3.579.2.593 1949 Unknown [id number] 2.16.840.1.041096.3.579.2.593 1949 Unknown [id number] 2.16.840.1.034285.3.579.2.593 1949 Unknown [id number] 2.16.840.1.829709.3.579.2.593 1949 Unknown [id number] 2.16.840.1.095149.3.579.2.593 1949 Unknown [id number] 2.16.840.1.870035.3.579.2.593 1949 Unknown [id number] 2.16.840.1.385639.3.579.2.593 1949 Unknown [id number] 2.16.840.1.373016.3.579.2.173 1949 Unknown [id number] 2.16.840.1.930204.3.579.2.173 1949 Unknown [id number] 2.16.840.1.618703.3.579.2.173 1949 Unknown [id number] 2.16.840.1.569249.3.579.2.173 1949 Unknown [id number] 2.16.840.1.773104.3.579.2.173 1949 Unknown [id number] 2.16.840.1.232434.3.579.2.173 1949 Unknown [id number] 2.16.840.1.999336.3.579.2.173 1949 Unknown [id number] 2.16.840.1.658336.3.579.2.173 1949 Unknown [id number] 2.16.840.1.035838.3.579.2.173 1949 Unknown [id number] 2.16.840.1.085087.3.579.2.173 1949 Unknown [id number] 2.16.840.1.750695.3.579.2.125 9 1949 Unknown [id number] 2.16.840.1.018373.3.579.2.125 9 1949 Unknown [id number] 2.16.840.1.223018.3.579.2.125 9 1949 Unknown [id number] 2.16.840.1.986145.3.579.2.196 1949 Unknown [id number] 2.16.840.1.902585.3.579.2.196 1949 Unknown [id number] 2.16.840.1.297590.3.579.2.196 1949 Unknown [id number] 2.16.840.1.115870.3.579.2.196 Medicare [id number] Unknown [id number] Unknown [facility] [id number] Unknown [id number] 2.16.840.1.023343.3.579.2.531 Unknown [id number] 2.16.840.1.776404.3.579.2.531 Social History Date Type Detail Facility Start: 04-22-2019 End: 04-16-2022 Tobacco smoking status NHIS Former smoker [facility] End: 10-08-1996 History of tobacco use Current smoker [facility] End: 10-08-1996 History of tobacco use Cigarette Smoker [facility] Start: 04-22-2019 End: 01-16-2023 Cigarettes smoked current (pack per day) - Reported [facility] Phone: Start: 04-22-2019 End: 05-06-2023 Alcohol intake Current drinker of alcohol (finding) [facility] Phone: Start: 10-08-2013 Alcohol Comment rare [employer] Work Phone: Start: 1950 Sex Assigned At Not on file [facility] Phone: Start: 01-16-2023 End: 05-06-2023 [facility] Assigned At [facility] Other Start: 1950 Sex Assigned At Male [facility] Start: 10-29-2013 End: 05-06-2023 Tobacco use and exposure Smokeless tobacco non-user [employer] Phone: Start: 07-09-2022 End: 07-19-2022 Exposure to SARS-CoV-2 (event) Not sure [facility] Start: 11-01-2022 End: 05-06-2023 Tobacco smoking status NEIS Never smoked tobacco [facility] Start: 11-01-2022 Education 10 [facility] Start: 11-01-2022 Alcohol Comment Caffeine intak e: 1-2 cups per day diet soda [facility] Medical Equipment Procedure Code Equipment Code Equipment Origin al Text Equipment Identifier Dates Test Strips Start: 09-06-2017 Roel Spnl Contour ed 5.5x150 Mm Lumbar Ti Weber - [id number] Start: 07-20-2022 Goals Date Patient Goal Desired Activity /State Clinical Notes 12-13-2015 to 06-24-2023 Note Date & Type Note Facility 06-24-2023 Note [facility] Subjective Omer Santos is a 72 y.o. year old male patient being seen to discuss medications. He thinks carvedilol is giving him tinnitus. His states it sounds like locusts in his ear . Patient states it sounds like loud bells ringing in his ears. Had labs in Apr and June 2023. Denies chest pain, SOB, palpitations, and lightheadedness/syncope. Patient Active Problem List Diagnosis Coronary artery disease involving lummi coronary artery of lummi heart without angina pectoris Status post coronary [...] a 72-year-old man, who was admitted with peb-RG-hgwlaxn elevation myocardial infarction in january 2018. He [...] to take Viagra. He was admitted to [facility] in 06/2020 with renal dysfunction and [...] has a neck brace and is recovering. I had seen him last on 02/20/2023. Today's visit is because of him having tinnitus and hearing symptoms. He was told that this could be related to carvedilol. He otherwise feels good. He has no chest pain or shortness of breath on exertion. Review of Systems HENT: Positive for hearing loss and tinnitus. Musculoskeletal: Positive for back pain. All other systems reviewed and are negative. Objective Visit Vitals BP 132/66 (BP Location: Left arm, Patient Position: Sitting) Pulse 56 Ht 1.702 m (5' 7 ) Wt 77.1 kg (170 lb) SpO2 98% BMI 26.63 kg/m??? Smoking Status Former BSA 1.91 m??? Physical Exam Constitutional: Appearance: He is well-developed. He is not ill-appearing. HENT: Head: Normocephalic and atraumatic. Nose: Nose normal. Eyes: General: (more content not included)... [facility] 05-07-2023 Evaluation note Encounter Date Diagnosis Assessment [...] the renal magnesium wasting. Continue oral magnesium [facility] Other 01-29-2024 History of Present illness Narrative* [...] mass index (BMI) 25.0-29.9 [facility] [id number] History of Present illness Narrative* Ruben Luo [...] 0.70 - 1.30 mg/dL Final [facility] EGFR-AF GUYANESE 03/23/2023 30 (L) >=60 Final [facility]H EGFR-NON AF GUYANESE 03/23/2023 25 (L) >=60 Final BUN CREATININE [...] disease, without long-term current use of insulin ([facility]) - glipiZIDE (Glucotrol) 5 MG tablet; Take [...] renewal of their medication. (Utilizing the original 1994/1996 guidelines or the 2020 new office/outpatient code [...] and reviewed with the patient. [facility] https://www.ncbi.nlm.nih.gov/pmc/articles/FNY4670695/. 2015; 13: 74. Published online 2014Jul 13. https://www.ncbi.nlm.nih.gov/pubmed/47357562 The rising tide of polypharmacy and drug-drug interactions: population database analysis 0308-3128 https://www.ncbi.nlm.nih.gov/pmc/articles/BUJ9631853/. 5. Gene K, Vita SW, Urszula M, Lizbeth G, Maria Del Carmen S, Joshua B. Epidemiology of multimorbidity and implications for health [...] his balance. He is looking forward to golWhelseg the spring. I also updated his physician of record data in the electronic health record. documented in this encounterMineral Area Regional Medical [id number] Evaluation note* Encounter Date Diagnosis Assessment Notes [...] the renal magnesium wasting. Continue oral magnesium [facility] Other 12-13-2023 Evaluation note* Encounter Date Diagnosis [...] Mar, S/P carotid endarterectomy (ICD-10 - Z98.890) [facility] Other 11-20-2023 Evaluation note* Encounter Date Diagnosis Assessment Notes Treatment Notes Treatment Clinical Notes Feb, Anemia of renal disease (ICD-10 - D63.1) Feb, CKD (chronic kidney disease) stage 4, GFR 15-29 ml/min (ICD-10 - N18.4) [facility] Other 11-15-2023 NoteUT Cardiology - [facility] Sarai Santos is a 72 y.o. year old male patient being seen for Follow-up (6 months) Patient Active Problem List Diagnosis Coronary artery disease involving lummi coronary artery of lummi heart without angina pectoris Status post coronary [...] a 72-year-old man, who was admitted with dyq-ND-escyeaj elevation myocardial infarction in january 2018. He [...] to take Viagra. He was admitted to [facility] in 06/2020 with renal dysfunction and [...] rales. Chest: Chest wal (more content not included)...[facility] 02-11-2023 Evaluation note* Encounter Date Diagnosis Assessment Notes Treatment Notes Treatment Clinical Notes Feb, Anemia of renal disease (ICD-10 - D63.1) [facility] Other 10-30-2023 NoteDischarge Summary Date of Admission: [...] by Gabe Harris MD, Jr 02/04/23 05:55 [facility] 02-01-2023 NoteC-spine radiographs on 02/01/2023 [...] Is Signed, Electronically Signed in Other Vendor System)[facility] CenterComment on above:Order Comment: [id number] sent for at 0632hrs 02-01-2023 NoteDATE OF [...] 3. C3 through C6 anterior cervical plate, Spencer with 16-mm fixed angle and variable screws, Strykerinstrumentation SURGEON: Gabe Harris M.D. MANAGER INFORMATION: Lizette Osorio PA-C. Lizette Osorio PA-C, assisted [...] permanent speech and swallowing disturbances, DVT/PE, stroke, LA, etc. All questions were answered and informed [...] jodi going back to (more content not included)...[facility]* Encounter Date Diagnosis Assessment Notes [...] carvedilol and amlodipine. 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 Continue oral magnesium [facility] Other 10-12-2023 Evaluation note* Encounter Date Diagnosis [...] the renal magnesium wasting. Continue oral magnesium [facility] Other 08-31-2023 Evaluation note* Encounter Date Diagnosis [...] the renal magnesium wasting. Continue oral magnesium [facility] Other 08-10-2023 Evaluation note* Encounter Date Diagnosis [...] the renal magnesium wasting. Continue oral magnesium [facility] Other 07-20-2023 Evaluation note* Encounter Date Diagnosis [...] the renal magnesium wasting. Continue oral magnesium [facility] Other 06-05-2023 Evaluation note* Encounter Date Diagnosis [...] the renal magnesium wasting. Continue oral magnesium [facility] Other 05-09-2023 Evaluation note* Encounter Date Diagnosis [...] continue same supplement improve we will supplement [facility] Other 04-20-2023 NotePROCEDURE: VL DUP LOWER EXTREMITY [...] by: Jose R Bianchi MD 07/26/22 Final resultS[facility] NotePROCEDURE: VL DUP LOWER EXTREMITY VENOUS [...] color flow, augmentation and phasic response. [facility] [id number] History of Present illness Narrative* Megan Meza - 07/26/2022 4:37 PM EDT Hubert as he likes to be called is to a [employer] . She and he appreciate prayer and [...] For: Patient and family together Referral/Consult From: [facility] Support [facility] Spouse Last Encounter 07/26/22 Complexity [...] Results: CBC: Recent Labs 07/24/22 0436 07/25/22 04307/26/22 0455 WBC 4.6* 3.9* 4.3* HGB 7.4* 7.6* 7.4* PLT 132 148 147 BMP: Recent Labs 07/24/22 0436 07/24/22 1444 07/25/22 04307/26/22 0455 NA 137 -- 135 134* K [...] PM VL DUP LOWER EXTREMITY VENOUS BILATERAL [[id number]] Resulted: 07/23/22 171 Updated: 07/23/22 172 Narrative: FINDINGS: There is normal color flow, spectral analysis and compressibility of the common femoral vein, superficial femoral vein and popliteal vein bilaterally . There is normal color flow and compressibility in the posterior tibial veins, anterior tibial veinsand peroneal veins. Impression: No evidence of a DVT. CT HEAD WO CONTRAST [[id number]] Resulted: 07/23/22 132 Updated: 07/23/22 132 Narrative: [...] BB, cardura Kylie Acuna MD, MD * Bella Schuster DIANN - 07/26/2022 8:38 AM EDT [facility] OCCUPATIONAL THERAPY MISSED TREATMENT NOTE [facility] ONC MED 5K 5K-26/026-A Date: 07/26/2022 Patient Name: Omer Santos CSN: [id number] : 1950 (72 y.o.) Gender: male Referring [...] PM VL DUP LOWER EXTREMITY VENOUS BILATERAL [[id number]] Resulted: 07/23/22 171 Updated: 07/23/22 172 Narrative: FINDINGS: There is normal color flow, spectral analysis and compressibility of the common femoral vein, superficial femoral vein and popliteal vein bilaterally . There is normal color flow and compressibility in the posterior tibial veins, anterior tibial veinsand peroneal veins. Impression: No evidence of a DVT. CT HEAD WO CONTRAST [[id number]] Resulted: 07/23/22 1323 Updated: 07/23/22 1326 Narrative: [...] Progress Note PATIENT: OMER SANTOS CSN #: [id number] : 1950 ADMIT DATE: 07/19/2022 9:24 AM [...] Treatment: IVF, limit narcotics/sedatives Thank you! Greg Mreino, BSN,RN, CRCR RN Clinical Staff [employer] Defense Officer Options provided: -- Drug-induced encephalopathy -- Toxic [...] 07/25/2022 10:37 AM EDT [facility] INPATIENT PHYSICAL THERAPY DAILY NOTE [facility] ONC MED 5K - 5K-26/026-A Time In: [...] Ambulation Assistance: Independent Transfer Assistance: Independent Active Meter Mechanic: Yes Additional Comments: Information provided by due [...] steps without HR CGA for home entry. [employer]isher [employer] Goals Time Frame for Prison Goals : NA due to short length of stay. Following session, patient left in safe position with all fall risk precautions in place. * DIANN Zavala - 07/25/2022 9:58 AM EDT [facility] OCCUPATIONAL THERAPY MISSED TREATMENT NOTE [facility] ONC MED 5K 5K-26/026-A Date: 07/25/2022 Patient Name: Omer Santos CSN: [id number] : 1950 (72 y.o.) Gender: male Referring [...] 07/24/2022 2:59 PM EDT [facility] INPATIENT PHYSICAL THERAPY DAILY NOTE [facility] [...] Ambulation Assistance: Independent Transfer Assistance: Independent Active Meter Mechanic: Yes Additional Comments: Information provided by due [...] steps without HR CGA for home entry. [employer] Goals Time Frame for [employer]isher [employer] Goals : NA due to short length of stay. Following session, patient left in safe position with all fall risk precautions in place. * DIANN Arango - 07/24/2022 10:36 AM EDT [facility] ONC MED 5K Occupational Therapy Daily Note Time: Time In: 956 Time Out: 1036 Timed Code Treatment Minutes: 39 Minutes Minutes: 39 Date: 07/24/2022 Patient Name: Omer Santos, Gender: male Room: -26/026-A : 1950 (72 y.o.) Referring Practitioner: Sharon [...] Prior L2-S1 decompression by Dr Shanks in [place] in 2011. Patient is a nonsmoker. H/o [...] of treatment: Fair treatment tolerance Discharge Recommendations: Subacute/fdc facility, 24 hour assistance or supervision, and [...] PM VL DUP LOWER EXTREMITY VENOUS BILATERAL [[id number]] Resulted: 07/23/22 1719 Updated: 07/23/22 172 Narrative: FINDINGS: There is normal color flow, spectral analysis and compressibility of the common femoral vein, superficial femoral vein and popliteal vein bilaterally . There is normal color flow and compressibility in the posterior tibial veins, anterior tibial veinsand peroneal veins. Impression: No evidence of a DVT. CT HEAD WO CONTRAST [[id number]] Resulted: 07/23/22 132 Updated: 07/23/22 1326 Narrative: There is no [...] Lab Results: CBC: Recent Labs 07/22/22 0506 07/22/227 07/23/22 0741 WBC 7.2 8.0 6.7 HGB [...] PM VL DUP LOWER EXTREMITY VENOUS BILATERAL [[id number]] Resulted: 07/23/22 1719 Updated: 07/23/22 1721 Narrative: FINDINGS: There is normal color flow, spectral analysis and compressibility of the common femoral vein, superficial femoral vein and popliteal vein bilaterally . There is normal color flow and compressibility in the posterior tibial veins, anterior tibial veinsand peroneal veins. Impression: No evidence of a DVT. CT HEAD WO CONTRAST [[id number]] Resulted: 07/23/22 1323 Updated: 07/23/22 1326 Narrative: [...] earlier in the day. Kylie Acuna MD, * Yomaira Lynn RN - 07/23/2022 5:44 [...] Preciado OT - 07/23/2022 2:18 PM EDT [facility] INPATIENT OCCUPATIONAL THERAPY STRZ ONC MED 5K EVALUATION Time: Time In: 1418 Time Out: 1455 Timed Code Treatment Minutes: 23 Minutes Minutes: 37 Date: 07/23/2022 Patient Name: mOer Santos, Gender: male : 1950 (72 y.o.) [...] Prior L2-S1 decompression by Dr Shanks in [place] in 2011. Patient is a nonsmoker. 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 VISION:WFL HEARING: WFL COGNITION: Decreased Recall, Decreased Insight, Decreased Safety Awareness, Impaired Attention, Difficulty Following Commands, Impulsive, and argumentative with encouragement, restless RANGE OF MOTION: Bilateral Upper Extremity: WFL STRENGTH: Bilateral Upper Extremity: elbow flex 4/5 ext 4-/5 under cutter (F-) SENSATION: WFL ADL: No ADL's completed [...] would benefit from continued therapy after discharge, Subacute/Longterm Facility, Prison Care with OT, 24 hour supervision or [...] Pt is a 72y.o. male, in . Buffing Machine Operator Semiautomatic was called to room due to a Rapid Response-Stroke Related alert; pt Caridad was also in the room. Buffing Machine Operator Semiautomatic provided brief prayer for Hubert prior to going toCT, presence, prayer and griefcare for Caridad as she waited for him to return. Caridad shared several personal/familial losses experienced between she and Hubert over the past few years, and has led tobeing leery while in a hospital setting-causing extra layer of stress and worry for them. Buffing Machine Operator [employer] prayed for Caridad as well as she mauro with all this-met with gratitude by Caridad. 07/23/22 1410 Encounter Summary Encounter Overview/Reason Crisis Service Provided For: Patient and family together Referral/Consult From: Nursing Endless Belt Finisher/Tax Services Professional System Spouse Last Encounter 07/23/22 Complexity of Encounter High Begin Time 1245 End Time 1327 Total Time Calculated 42 min Crisis Type Rapid Response Assessment/Intervention/Outcome Assessment Compromised coping;Concerns with suffering;Impaired resilience;Impaired social interaction;Shock;Tearful Intervention Active listening;Sustaining Presence/Ministry of presence;Prayer (assurance of)/[place];Nurtured Hope;Explored/Affirmed feelings, thoughts, concerns;Discussed illness injury and it s impact;Discussed relationship with God Outcome Receptive;Expressed Gratitude;Expressed feelings, needs, and concerns;Engaged in conversation;Coping * Gaby León [facility] - 07/23/2022 2:05 PM EDT Code Stroke [...] 07/23/2022 10:36 AM EDT [facility] INPATIENT PHYSICAL THERAPY EVALUATION [facility] ONC MED 5K - 5K-26/026-A Time In: 0949 Time Out: 1021 Timed Code Treatment Minutes: 23 Minutes Minutes: 32 Date: 07/23/2022 Patient Name: Omer Santos, Gender: male : 1950 (72 y.o.) Referring Practitioner: Sharon Terra, PA-C Diagnosis: Lumbar spondylosis Additional Pertinent Hx: [...] pt refuses PT initially, does participate in [employer] LE and rolls in bed x 2. 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 Functional Outcome Measures: Completed [facility] Inpatient Mobility without Stair Climbing Raw Score : 6 [facility] Inpatient without Stair Climbing T-Scale [...] Term Goal 2: PT to assess mobility. Prison Goals Time Frame for Prison Goals : NA due to short length [...] in place, pt bp soft, medicated per proced tech, o2 sats low, pt unresponsive post anesthesia 1525 - pt still unresponsive post anesthesia, proced tech at bedside 1540 - pt still unresponsive, [...] this time 1727 - pt transported to [facility] in stable condition * Darcy Cheney [...] procedure Temp: 97.8 documented in this encounterBON HIGHLAND SPRINGS SURGICAL CENTERBright Computing Work Phone: [phone] NotePROCEDURE: XR LUMBAR SPINE (2-3 VIEWS) CLINICAL [...] by: Lalo Polanco DO 07/25/22 Final resultSaint [facility]04-19-2023 NotePROCEDURE: XR LUMBAR SPINE (2-3 VIEWS) [...] lumbar spine, stable compared to prior exam. [facility] [id number] NotePROCEDURE: VL DUP LOWER EXTREMITY VENOUS BILATERAL [...] Mcdonnell on 07/23/2022 5:19 PM Interpreted by: Héctro Mcdonnell MD Signed by: Héctor Mcdonnell MD 07/23/22 Final resultSUT [facility]04-17-2023 NotePROCEDURE: VL DUP LOWER EXTREMITY VENOUS [...] tibial veins, anterior tibial veinsand peroneal veins. [facility] [id number] NotePROCEDURE: CT HEAD WO CONTRAST CLINICAL INFORMATION: [...] by: Gissel Escobedo MD 07/23/22 Final resultSaint [facility] Hospital04-17-2023 NotePROCEDURE: CT HEAD WO CONTRAST CLINICAL [...] There is no suspicious calvarial abnormality. [facility] [id number] NotePROCEDURE: XR LUMBAR SPINE 1 VW CLINICAL INFORMATION: surgery . TECHNIQUE: Crosstable lateral portable done in the OR COMPARISON: No prior study. FINDINGS: Application Manager localizer overlies the pedicle of L2. IMPRESSION: Localizer at L2. This report has been created using voice recognition software. It may contain minor errors which are inherent in voice recognition technology. Final report electronically signed by Dr. Simba Castle on 07/20/2022 12:20 PM Interpreted by: Simba Castle MD Signed by: Simba Castle MD 07/20/22 Final resultSaint [facility] Memorial Hospital04-14-2023 NotePROCEDURE: XR LUMBAR SPINE 1 VW CLINICAL INFORMATION: surgery . TECHNIQUE: Crosstable lateral portable done in the OR COMPARISON: No prior study. FINDINGS: Application Manager localizer overlies the pedicle of L2. [facility] [id number] NoteCardiovascular Medicine [facility] SUBJECTIVE Chief Complaint Patient presents with Follow-up [...] asthma. Follows up with vascular surgery in [place] for carotid artery stenosis status post endarterectomy of right carotid. HPI Last HPI per Dr. Veronica: Omer Santos is seen in follow up. He is a 71-year-old man, who was admitted with vyl-TB-oxatgkz elevation myocardial infarction in january 2018. He [...] to take Viagra. He was admitted to [facility] in 06/2020 with renal dysfunction and [...] [address] Юлия Savage out of [place]. He denies any complaints today including no CP, dyspnea, orthopnea, PND, LE edema, dizziness/LH, palpitations, syncope. He c/o lower back pain which limits his mobility and muscle loss from lack of mobility with his LLE. BP at regulatory submissions associate office yesterday was 120s/80s. BP during stress test last week was 208/88, BP in office today 156/62 and recheck was 172/64. He has not been routinely checking his BP at home. He c/o ecchymotic lesions to his JESSICA extremities. His Caridad accompanied him today. Patient Active Problem List Diagnosis Coronary artery disease involving lummi coronary artery of lummi heart without angina pectoris Status post coronary [...] Inhibitors Unknown Other re (more content not included)...[facility] 07-18-2022 NoteBoallan is here for a 6 month follow up with no cardiac concerns. He is having surgery on his lower back on Saturday, July 20. His , Caridad, states that PCP cleared him for surgery after reviewing recent stress test. Review of Systems Cardiovascular: Positive for dyspnea on exertion. States he's Having trouble walking. Skin: Positive for suspicious lesions. Concerned about spots on both forearms.[facility] 07-17-2022 Evaluation note* Encounter Date Diagnosis [...] to the risk of a cardiac arrhythmias. [facility] Other 03-16-2023 Evaluation note* Encounter Date Diagnosis [...] let me know if he changes mind. [facility] Other 02-02-2023 Evaluation note* Encounter Date Diagnosis Assessment Notes Treatment Notes Treatment Clinical Notes May, Anemia of renal disease (ICD-10 - D63.1) May, Chronic kidney disease, stage 3b (ICD-10 - N18.32) [facility] Other 01-30-2023 Evaluation note* Encounter Date Diagnosis [...] let me know if he changes mind. [facility] Other 01-09-2023 [facility]* Encounter Date Diagnosis Assessment Notes Treatment Notes Treatment Clinical Notes Jan, History of colon polyps (ICD-10 - Z86.010) [facility] Other 09-08-2022 Evaluation note* Encounter Date Diagnosis [...] let me know if he changes mind. [facility] Other 06-16-2022 Evaluation note* Encounter Date Diagnosis [...] these d differential diagnoses. Continue home losartan. [facility] Other 05-09-2022 Evaluation note* Encounter Date Diagnosis [...] We will check PTH and vitamin D. [facility] Other 05-05-2022 Evaluation note* Encounter Date Diagnosis [...] for several more years in my opinion. [facility] Other 09-06-2016 Evaluation note* Encounter Date Diagnosis [...] meantime with any issues or concerns whatsoever. [facility] Other Evaluation note* Diagnosis Enlarged prostate Hypertrophy of prostate without urinary obstruction and other lower urinary tract symptoms (LUTS) BPH with obstruction/lower urinary tract symptoms Hypertrophy of prostate with urinary obstruction and other lower urinary tract symptoms (LUTS) Abnormal digital rectal exam Other abnormal clinical finding Erectile dysfunction, unspecified erectile dysfunction type documented in this encounter [employer] Phone: evaluation noteNo assessment information available [facility] Work Phone: Evaluation note* Diagnosis Spondylosis of lumbosacral region without myelopathy or radiculopathy Lumbosacral spondylosis without myelopathy Lumbar spondylosis Lumbosacral spondylosis without myelopathy Postlaminectomy syndrome, lumbar Postlaminectomy syndrome, lumbar region Spinal stenosis of lumbar region with neurogenic claudication Spinal stenosis, lumbar region, with neurogenic claudication documented in this encounter [employer] Phone: evaluation note* Diagnosis Osteopenia of lumbar spine documented in this encounter [employer] Phone: evaluation note* Diagnosis Spinal stenosis, lumbar region, without neurogenic claudication Right foot drop Other acquired deformity of ankle and foot documented in this encounter [employer] Phone: [email or web address] noteNo [facility] [employer] Other Evaluation note* Diagnosis Examination for normal comparison for clinical research Examination of participant in clinical trial Lumbar spondylosis Lumbosacral spondylosis without myelopathy Spinal stenosis, unspecified spinal region Spondylolisthesis, unspecified spinal region documented in this encounter [employer] Phone: [email or web address] note* Diagnosis Lumbar spondylosis- Primary Lumbosacral spondylosis without myelopathy Lumbar stenosis with neurogenic claudication Spinal stenosis, lumbar region, with neurogenic claudication Lumbar stenosis with neurogenic claudication Spinal stenosis, lumbar region, with neurogenic claudication Primary hypertension Unspecified essential hypertension Type 2 diabetes mellitus with kidney complication, without long-term current use of insulin ([facility]) Anemia due to chronic kidney disease Acute posthemorrhagic anemia documented in this encounter [employer] Phone: evaluation note* Diagnosis Stage 4 chronic kidney disease (CMS/HCC)- Primary Primary hypertension (CMS/HCC) Unspecified essential hypertension Hypertensive kidney disease with stage 4 chronic kidney disease (CMS/HCC) Nephrotic syndrome Nephrotic syndrome with unspecified pathological lesion in kidney Type 2 diabetes mellitus with stage 4 chronic kidney disease, without long-term current use of insulin (CMS/HCC) Hyperlipidemia associated with type 2 diabetes mellitus (CMS/HCC) Diabetic peripheral neuropathy (CMS/HCC) Type II or unspecified type diabetes mellitus with neurological manifestations, not stated as uncontrolled Polypharmacy Issue of repeat prescriptions Overweight with body mass index (BMI) 25.0-29.9 Former smoker, stopped smoking in distant past Benign essential HTN (CMS/HCC) Mild intermittent asthma without complication (CMS/HCC) Coronary arteriosclerosis (CMS/HCC) Coronary atherosclerosis of unspecified type of vessel, lummi or graft documented in this encounter [facility] HealthcareEvaluation note* Diagnosis Injury of right ankle, [...] HealthcareHistory and physical note Author Orlando Beaver [facility] April 16, 2022 9:33am Note Date/Time April 16, 2022 9: 33am [facility] [address] [place] [address] Gastroenterology H&P Signed Patient: Omer Santos MR#: [id number] : 1950 Acct:[id number] Age/Sex: 71 / M Adm Date: 3 Loc: Room: Type: [facility] Attending Dr: Orlando Beaver MD Copies to: [...] <Electronically signed by Orlando Beaver MD> 04/16/22932 [facility] Work Phone: history general Narrative - Reported* Type Description [...] Extracranial repair 01/02/2016 Surgical History Heart Cath[facility]stent [facility] 01/2018 Surgical History heart cath 09/12/2018 Hospitalization History see surgical hx Hospitalization History ER- Acute Bronchitis 07/08 08/22 Hospitalization History [facility] Cardiac Issues 2017 [facility] Other [facility] general Narrative - Reported* Type Description Date [...] Extracranial repair 01/02/2016 Surgical History Heart Cath/stent [facility] 01/2018 Surgical History heart cath 09/12/2018 Hospitalization History see surgical hx Hospitalization History ER- Acute Bronchitis 07/08 08/22 Hospitalization History [facility] Cardiac Issues 2017 [facility] Other History general Narrative - Reported* Type [...] Extracranial repair 01/02/2016 Surgical History Heart Cath/stent [facility] 01/2018 Surgical History heart cath 09/12/2018 Surgical History CERVICAL FUSION X3 01/31/2023 Hospitalization History see surgical hx Hospitalization History ER- Acute Bronchitis 07/08 08/22 Hospitalization History [facility] Cardiac Issues 2017 [facility] Other Hospital Discharge instructions Additional Instructions DISCHARGE [...] -Follow up with PCP. - Office number [phone].[facility] Work Phone: Summary Purpose Family History No Family History Records Found Relationship Condition Age at Onset Recorded Date/T juan sister Malignant neoplasm of breast Unknown daughter Malignant neoplasm of ovary Unknown Advance Directives No Advanced Directives Records FoundDocuments on File Type Date Recorded Patient Media Librarian Expl anation Advance Directives and Living Will Power of Call Center Supervisor Advance Directive Response Recorded Date/ Time Advance Directives No May 13, 2017 1:30pm Documents on File Type Date Recorded Patient Media Librarian Expl anation ACP-Advance Directive 07/24/2022 8:33 AM Latest Code Status on File Code Status Date Activated Date Inactivated Comments Full Code 07/19/2022 11:45 AM Hospital Course Note MR#: [id number] 2 [facility] Pt. Name: Omer Santos Admitted: 01/17/2018 Discharged: [...] a 67-year-old male, who presented initially to [facility] complaining of chest pain, stating that around 5 p.m. yesterday, he woke from a nap, experiencing pain radiating to his jaw and then on the left side of his chest. The patient reports that when he was trying to walk up some stairs, it exacerbated his pain and persisted for about an hour. Initial workup at [facility] was negative and r (more content not [...] CONTRAST Sharon Ellison PA-C [address] [place] [address] Referral ID Status Reason Start Date Expiration Date Visits Re quested Visits Authorized [id number] Closed 05/22/2022 05/22/2023 1 1 Specialty Diagnoses / Procedures Referred By Contac t Referred To Contact Radiology Diagnoses Osteopenia of lumbar spine Procedures DEXA BONE DENSITY AXIAL SKELETON Sharon Ellison PA-C [address] [place] [address] Referral ID Status Reason Start Date Expiration Date Visits Re quested Visits Authorized [id number] Closed 05/22/2022 05/22/2023 1 1 Specialty Diagnoses / Procedures Referred By Contac t Referred To Contact Radiology Diagnoses Spondylosis of lumbosacral region without myelopathy or radiculopathy Lumbar spondylosis Postlaminectomy syndrome, lumbar Spinal stenosis of lumbar region with neurogenic claudication Procedures MRI LUMBAR SPINE WO CONTRAST Osiel Elaine R, [employer] [address] [place] [id number] Referral ID Status Reason Start Date Expiration Date Visits Re quested Visits Authorized [id number] Closed 03/30/2022 03/30/2023 1 1 Additional Source Comments (unrecognized sect ion and content) No Status Records FoundNo Status Records FoundNo Status Records FoundNo Status Records FoundNo Status Records FoundNo Status Records FoundNo Status Records FoundNo Status Records Found INFORMATION SOURCE (unrecogn ized section and content) DATE CREATED AUTHOR 12/02/2018 [facility] DATE CREATED AUTHOR AUTHOR'S ORGANIZ ATION 07/27/2022 [facility] DATE CREATED AUTHOR AUTHOR'S ORGANIZ ATION 08/16/2022 [facility] DATE CREATED AUTHOR AUTHOR'S ORGANIZ ATION 01/13/2023 [facility] DATE CREATED AUTHOR AUTHOR'S ORGANIZ ATION 05/11/2023 [facility] EPIC DATE CREATED AUTHOR AUTHOR'S ORGANIZ ATION 05/23/2023 [facility] DATE CREATED AUTHOR AUTHOR'S ORGANIZ ATION 06/25/2023 [facility] DATE CREATED AUTHOR AUTHOR'S ORGANIZ ATION 07/02/2023 [facility] REASON FOR VISIT (unrecogniz ed section and content) Specialty Diagnoses / Procedures Referred By Contac t Referred To Contact Radiology Diagnoses Spondylosis of lumbosacral region without myelopathy or radiculopathy Lumbar spondylosis Postlaminectomy syndrome, lumbar Spinal stenosis of lumbar region with neurogenic claudication Procedures MRI LUMBAR SPINE WO CONTRAST Osiel Elaine R, [employer] [address] [place] [address] Referral ID Status Reason Start Date Expiration Date Visits Re quested Visits Authorized [id number] Closed 03/30/2022 03/30/2023 1 1 Specialty Diagnoses / Procedures Referred By Contac t Referred To Contact Radiology Diagnoses Osteopenia of lumbar spine Procedures DEXA BONE DENSITY AXIAL SKELETON Sharon Ellison PA-C [address] [place] [address] Referral ID Status Reason Start Date Expiration Date Visits Re quested Visits Authorized [id number] Closed 05/22/2022 05/22/2023 1 1 Specialty Diagnoses / Procedures Referred By Contac t Referred To Contact Radiology Diagnoses Spinal stenosis, lumbar region, without neurogenic claudication Right foot drop Procedures CT LUMBAR SPINE WO CONTRAST Sharon Ellison PA-C [address] [place] [address] Referral ID Status Reason Start Date Expiration Date Visits Re quested Visits Authorized [id number] Closed 05/22/2022 05/22/2023 1 1 Specialty Diagnoses / Procedures Referred By Contac t Referred To Contact Radiology Diagnoses Spinal stenosis, lumbar region, without neurogenic claudication Right foot drop Procedures CT THORACIC SPINE WO CONTRAST Sharon Ellison PA-C [address] [place] [address] Referral ID Status Reason Start Date Expiration Date Visits Re quested Visits Authorized [id number] Closed 05/22/2022 05/22/2023 1 1 Specialty Diagnoses / Procedures Referred By Contac t Referred To Contact Diagnoses Lumbar spondylosis Spinal stenosis, unspecified spinal region Spondylolisthesis, unspecified spinal region Lumbar spondylosis [M47.816] Spinal stenosis, unspecified spinal region [M48.00] Spondylolisthesis, unspecified spinal region [M43.10] Procedures OK ARTHRODESIS POSTERIOR/PSTLAT TQ 1NTRSPC LUMBAR OK ARTHRODESIS PST/PSTLAT TQ 1NTRSPC EA ADDL NTRSPC OK ARTHRODESIS SI JT OPN W/OBTAINING B1 GRF INSTRMJ OK [place] FACETECTOMY&FORAMOT 1 VRT SGM EA ADDL SGM OK POSTERIOR SEGMENTAL INSTRUMENTATION 3-6 VRT SEG OK ALLOGRAFT FOR SPINE SURGERY ONLY MORSELIZED L2-S1 REVISION DECOMPRESSION WITH L2-PELVIS FUSION Gabe Harris MD [address] [place] [address] [place] [address] [facility] [address] [place] [address] Referral ID Status Reason Start Date Expiration Date Visits Re quested Visits Authorized [id number] 1 1 Reason Comments Hyperlipidemia Hypertension Diabetes [...] Active Orlando Beaver MD Attending Provider Active Laboratory Animal Care Veterinarian Relationship Specialty Start Date End Date Ruben Luo MD PCP - General 09/15/13 Laboratory Animal Care Veterinarian Relationship Specialty Start Date End Date Ruben Luo MD PCP - General 09/15/13 Laboratory Animal Care Veterinarian Relationship Specialty Start Date End Date Ruben Luo MD PCP - General 09/15/13 Laboratory Animal Care Veterinarian Relationship Specialty Start Date End Date Ruben Luo MD PCP - General 09/15/13 Laboratory Animal Care Veterinarian Relationship Specialty Start Date End Date Ruben Luo MD [address] [place] [phone] PCP - General Family Medicine 08/28/22 Ruben Luo MD [address] [place] [address] (Fax) PCP - ACO Reach 08/30/22 Laboratory Animal Care Veterinarian Relationship Specialty Start Date End Date Ruben Luo MD [address] [place] [phone] PCP - General Family Medicine 08/28/22 Ruben Luo MD [address] [place] [address] (Fax) PCP - ACO Reach 08/30/22 Goals (unrecognized [...] DAILY, First dose (after last modification) on 07/21/22 at 1300, Until Discontinued 0805 (Given - Provider: Yomaira Lynn RN) 0845 (Given - Provider: Justa Tobias RN) 0823 (Given - Provider: Irene Sauer RN) atorvastatin (LIPITOR) tablet 40 mg 40 mg, Oral, EVERY EVENING, First dose on Billie 07/19/22 at 1830, Until Discontinued 1847 (Given - Provider: Justa Haney RN) 181 (Given - Provider: Justa Tobias RN) 164 (Given - Provider: Irene Sauer RN) bisacodyl (DULCOLAX) EC tablet 5 mg 5 mg, Oral, DAILY, First dose on Sat07/21/22 at 0900, Until Discontinued, Do not crush or break., Post-op 08 (Given - Provider: Yomaira Lynn RN) 08 (Given - Provider: Justa Tobias RN) 08 (Given - Provider: Irene Sauer RN) carvedilol (COREG) tablet 12.5 mg 12.5 mg, Oral, 2 TIMES DAILY WITH MEALS, First dose (after last modification) on Sat07/19/22 at 1830, Until Discontinued, Administer with food to minimize the risk of orthostatic hypotension 0757 (Given - Provider: Yomaira Lynn, MAMIE)1631 (Given - Provider: Justa Haney, MAMIE) 0845 (Given - Provider: Justa Tobias RN)1724 (Given - Provider: Justa Tobias RN) 08 (Given - Provider: Irene Sauer RN)1641 (Given [...] 08 (Given - Provider: Yomaira Lynn RN) 08 (Given - Provider: Justa Tobias RN) doxazosin (CARDURA) tablet 4 mg (COMPLETED) 4 mg, Oral, ONCE, 1 dose, On Sat07/25/22 at 1515 1559 (Given - Provider: Justa Tobias RN) doxazosin (CARDURA) tablet 8 mg 8 mg, Oral, DAILY, First dose (after last modification) on Sat07/26/22 at 0900, Until Discontinued 822 (Given - Provider: Irene Sauer RN) ferrous [...] 0823 (Given - Provider: Irene Sauer, MAMIE) magnesium oxide (MAG-OX) tablet 400 mg 400 [...] dose. 1605 (Given - Provider: Justa Tobias, RN) Continuous Medication Order 07/24/2022 07/25/2022 07/26/2022 0.9 % sodium chloride infusion (CANCELED) IntraVENous, at 50 mL/hr, CONTINUOUS, Starting on 07/23/22 at 1900 0208 (New Bag - Provider: Jolynn Davis, MAMIE) PRN Medication Order 07/24/2022 07/25/2022 07/26/2022 0.9 [...] IntraVENous, EVERY 4 HOURS PRN, Starting on Sat07/19/22 at 1536, Until Discontinued, High Blood Pressure, for SBP greater than 160 0845 (Given - Provider: Justa Tobisa, RN) 0619 (Given - Provider: Juan Bermeo, MAMIE) morphine (PF) injection 2 mg 2 mg, IntraVENous, EVERY 4 HOURS PRN, Starting on Sat07/19/22 at 1141, Until Discontinued, Pain Severe (7-10), [...] BE BASED ON THE PRIMARY CLINICAL RECORDS. [employer] provides no warranty or guarantee of the accuracy or completeness of information in this document.
[2023-07-06 11:18] LABS: Hematocrit 29.5 % (42.0-54.0); Hemoglobin 9.9 g/dL (14.0-18.0); Mean Corpuscular HGB Conc 33.6 g/dL (29.9-35.2); Mean Corpuscular Hemoglobin 31.4 pg (25.9-34.0); Mean Corpuscular Volume 93.7 fL (80.0-94.0); Mean Platelet Volume 8.7 fL (9.5-13.5); Platelet Count 174 10^3/uL (150-450); Red Blood Count 3.15 10^6/uL (4.70-6.10); Red Cell Distribution Width 13.2 % (11.0-15.0); White Blood Count 8.2 10^3/uL (4.0-11.0)
[2023-07-06 11:40] LABS: Albumin Level 3.4 g/dL (3.4-5.0); Anion Gap 16.7; BUN Creatinine Ratio 20.3; Calcium 8.2 mg/dL (8.5-10.1); Carbon Dioxide 21.5 mmol/L (21.0-32.0); Chloride 107 mmol/L (98-107); Estimated GFR (African America 31 (>=60); Estimated GFR (Non-African Ame 25 (>=60); Glucose 93 mg/dL (74-106); Phosphorus 4.2 mg/dL (2.6-4.7); Potassium 5.2 mmol/L (3.5-5.1); Sodium 140 mmol/L (136-145)
== END 2023-07-06 10:43 | disposition home or self-care (01) ==
LOC: LAB 10:42
PROVIDERS: PCP Family Medicine; Visit Provider Internal Medicine
DX: N18.4 Chronic kidney disease, stage 4 (severe) (principal); N18.9 Chronic kidney disease, unspecified; D63.1 Anemia in chronic kidney disease
CPT/HCPCS: 36415; 80069; 85027

== ENCOUNTER 2023-08-02 08:46 | Outpatient (OUT) | payer MEDICARE, OTHER, SELFPAY ==
[2023-08-02 09:29] LABS: Hematocrit 28.2 % (42.0-54.0); Hemoglobin 9.2 g/dL (14.0-18.0); Mean Corpuscular HGB Conc 32.6 g/dL (29.9-35.2); Mean Corpuscular Hemoglobin 31.4 pg (25.9-34.0); Mean Corpuscular Volume 96.2 fL (80.0-94.0); Mean Platelet Volume 8.8 fL (9.5-13.5); Platelet Count 191 10^3/uL (150-450); Red Blood Count 2.93 10^6/uL (4.70-6.10); Red Cell Distribution Width 13.2 % (11.0-15.0); White Blood Count 7.7 10^3/uL (4.0-11.0)
[2023-08-02 09:38] LABS: Albumin Level 3.2 g/dL (3.4-5.0); Anion Gap 14.9; BUN Creatinine Ratio 17.8; Calcium 8.7 mg/dL (8.5-10.1); Carbon Dioxide 25.5 mmol/L (21.0-32.0); Chloride 106 mmol/L (98-107); Estimated GFR (African America 28 (>=60); Estimated GFR (Non-African Ame 23 (>=60); Glucose 93 mg/dL (74-106); Phosphorus 4.4 mg/dL (2.6-4.7); Potassium 5.4 mmol/L (3.5-5.1); Sodium 141 mmol/L (136-145)
[2023-08-02 10:57] LABS: Percent Iron Saturation 28.8 %
== END 2023-08-02 08:47 | disposition home or self-care (01) ==
LOC: LAB 08:47
PROVIDERS: PCP Family Medicine; Visit Provider Internal Medicine
DX: E11.22 Type 2 diabetes mellitus with diabetic chronic kidney disease (principal); N18.9 Chronic kidney disease, unspecified; D63.1 Anemia in chronic kidney disease; N18.4 Chronic kidney disease, stage 4 (severe); I12.9 Hypertensive chronic kidney disease with stage 1 through stage 4 chronic kidney disease, or unspecified chronic kidney disease
CPT/HCPCS: 36415; 80069; 82728; 83540; 83550; 85027

== ENCOUNTER 2023-09-03 13:57 | Outpatient (OUT) | payer MEDICARE, OTHER, SELFPAY ==
[2023-09-03 14:35] LABS: Hematocrit 27.1 % (42.0-54.0); Hemoglobin 9.1 g/dL (14.0-18.0); Mean Corpuscular HGB Conc 33.6 g/dL (29.9-35.2); Mean Corpuscular Hemoglobin 31.2 pg (25.9-34.0); Mean Corpuscular Volume 92.8 fL (80.0-94.0); Platelet Count 202 10^3/uL (150-450); Red Blood Count 2.92 10^6/uL (4.70-6.10); Red Cell Distribution Width 13.3 % (11.0-15.0); White Blood Count 9.2 10^3/uL (4.0-11.0)
[2023-09-03 15:45] LABS: Albumin Level 3.5 g/dL (3.4-5.0); Anion Gap 13.7; BUN Creatinine Ratio 20.1; Calcium 8.2 mg/dL (8.5-10.1); Chloride 107 mmol/L (98-107); Estimated GFR (African America 28 (>=60); Estimated GFR (Non-African Ame 23 (>=60); Glucose 53 mg/dL (74-106); Magnesium 2.1 mg/dL (1.8-2.4); Phosphorus 4.2 mg/dL (2.6-4.7); Potassium 4.7 mmol/L (3.5-5.1); Sodium 139 mmol/L (136-145)
== END 2023-09-03 13:58 | disposition home or self-care (01) ==
LOC: LAB 13:57
PROVIDERS: PCP Family Medicine; Visit Provider Internal Medicine
DX: E83.42 Hypomagnesemia (principal); R31.29 Other microscopic hematuria; R80.9 Proteinuria, unspecified; N25.81 Secondary hyperparathyroidism of renal origin; E87.5 Hyperkalemia; E11.22 Type 2 diabetes mellitus with diabetic chronic kidney disease; D63.1 Anemia in chronic kidney disease; N18.9 Chronic kidney disease, unspecified
CPT/HCPCS: 36415; 80069; 83735; 85027

== ENCOUNTER 2023-09-20 09:02 | Outpatient (OUT) | payer MEDICARE, OTHER, SELFPAY ==
[2023-09-20 09:27] LABS: Hematocrit 30.4 % (42.0-54.0); Hemoglobin 10.1 g/dL (14.0-18.0); Mean Corpuscular HGB Conc 33.2 g/dL (29.9-35.2); Mean Corpuscular Hemoglobin 30.3 pg (25.9-34.0); Mean Corpuscular Volume 91.3 fL (80.0-94.0); Mean Platelet Volume 8.6 fL (9.5-13.5); Platelet Count 191 10^3/uL (150-450); Red Blood Count 3.33 10^6/uL (4.70-6.10); Red Cell Distribution Width 13.2 % (11.0-15.0); White Blood Count 7.2 10^3/uL (4.0-11.0)
== END 2023-09-20 09:03 | disposition home or self-care (01) ==
LOC: LAB 09:02
PROVIDERS: PCP Family Medicine; Visit Provider Internal Medicine
DX: N18.9 Chronic kidney disease, unspecified (principal); D63.1 Anemia in chronic kidney disease
CPT/HCPCS: 36415; 85027

== ENCOUNTER 2023-11-26 09:28 | Outpatient (OUT) | payer MEDICARE, OTHER, SELFPAY ==
[2023-11-26 09:44] LABS: Hematocrit 29.5 % (42.0-54.0); Hemoglobin 9.7 g/dL (14.0-18.0); Mean Corpuscular HGB Conc 32.9 g/dL (29.9-35.2); Mean Corpuscular Hemoglobin 30.5 pg (25.9-34.0); Mean Corpuscular Volume 92.8 fL (80.0-94.0); Mean Platelet Volume 8.9 fL (9.5-13.5); Platelet Count 175 10^3/uL (150-450); Red Blood Count 3.18 10^6/uL (4.70-6.10); Red Cell Distribution Width 13.4 % (11.0-15.0); White Blood Count 7.3 10^3/uL (4.0-11.0)
[2023-11-26 10:16] LABS: Total Protein Urine Random 289.7 mg/dL (<=11.9)
[2023-11-26 10:30] LABS: Albumin Level 3.6 g/dL (3.4-5.0); BUN Creatinine Ratio 21.1; Calcium 8.7 mg/dL (8.5-10.1); Carbon Dioxide 23.3 mmol/L (21.0-32.0); Chloride 109 mmol/L (98-107); Estimated GFR (African America 25 (>=60); Estimated GFR (Non-African Ame 20 (>=60); Glucose 81 mg/dL (74-106); Phosphorus 4.6 mg/dL (2.6-4.7); Potassium 5.3 mmol/L (3.5-5.1); Sodium 143 mmol/L (136-145); Uric Acid 6.8 mg/dL (3.5-7.2)
[2023-11-26 10:37] LABS: Percent Iron Saturation 32.6 %
[2023-11-27 14:10] LABS: PTH, Intact 115 pg/mL (15-65)
== END 2023-11-26 09:29 | disposition home or self-care (01) ==
LOC: LAB 09:29
PROVIDERS: PCP Family Medicine; Visit Provider Internal Medicine
DX: E83.42 Hypomagnesemia (principal); E11.22 Type 2 diabetes mellitus with diabetic chronic kidney disease; R31.29 Other microscopic hematuria; R80.9 Proteinuria, unspecified; N25.81 Secondary hyperparathyroidism of renal origin; E87.5 Hyperkalemia
CPT/HCPCS: 36415; 80069; 82306; 82570; 82728; 83540; 83550; 83735; 83970; 84156; 84550; 85027

== ENCOUNTER 2023-12-23 11:43 | Outpatient (OUT) | payer MEDICARE, OTHER, SELFPAY ==
[2023-12-23 11:53] LABS: Hematocrit 29.5 % (42.0-54.0); Hemoglobin 9.8 g/dL (14.0-18.0); Mean Corpuscular HGB Conc 33.2 g/dL (29.9-35.2); Mean Corpuscular Hemoglobin 30.6 pg (25.9-34.0); Mean Corpuscular Volume 92.2 fL (80.0-94.0); Mean Platelet Volume 8.7 fL (9.5-13.5); Platelet Count 173 10^3/uL (150-450); Red Cell Distribution Width 13.3 % (11.0-15.0); White Blood Count 7.2 10^3/uL (4.0-11.0)
[2023-12-23 13:06] LABS: Albumin Level 3.5 g/dL (3.4-5.0); Anion Gap 11.8; BUN Creatinine Ratio 20.8; Calcium 8.4 mg/dL (8.5-10.1); Carbon Dioxide 27.3 mmol/L (21.0-32.0); Chloride 104 mmol/L (98-107); Estimated GFR (African America 26 (>=60); Estimated GFR (Non-African Ame 22 (>=60); Glucose 75 mg/dL (74-106); Phosphorus 4.5 mg/dL (2.6-4.7); Potassium 5.1 mmol/L (3.5-5.1); Sodium 138 mmol/L (136-145)
== END 2023-12-23 11:44 | disposition home or self-care (01) ==
LOC: LAB 11:43
PROVIDERS: PCP Family Medicine; Visit Provider Internal Medicine
DX: E87.5 Hyperkalemia (principal); N18.9 Chronic kidney disease, unspecified; D63.1 Anemia in chronic kidney disease
CPT/HCPCS: 36415; 80069; 85027

== ENCOUNTER 2024-01-28 11:33 | Outpatient (OUT) | payer MEDICARE, OTHER, SELFPAY ==
[2024-01-28 11:50] LABS: Hematocrit 29.3 % (42.0-54.0); Hemoglobin 9.6 g/dL (14.0-18.0); Mean Corpuscular HGB Conc 32.8 g/dL (29.9-35.2); Mean Corpuscular Hemoglobin 30.5 pg (25.9-34.0); Mean Platelet Volume 9.1 fL (9.5-13.5); Platelet Count 195 10^3/uL (150-450); Red Blood Count 3.15 10^6/uL (4.70-6.10); Red Cell Distribution Width 13.3 % (11.0-15.0); White Blood Count 8.8 10^3/uL (4.0-11.0)
[2024-01-28 12:10] LABS: Albumin Level 3.4 g/dL (3.4-5.0); Anion Gap 17.7; BUN Creatinine Ratio 18.3; Calcium 8.4 mg/dL (8.5-10.1); Carbon Dioxide 19.7 mmol/L (21.0-32.0); Chloride 111 mmol/L (98-107); Estimated GFR (African America 20 (>=60 mL/min/1.73m^2); Estimated GFR (Non-African Ame 16 (>=60 mL/min/1.73m^2); Glucose 69 mg/dL (74-106); Phosphorus 4.6 mg/dL (2.6-4.7); Potassium 5.4 mmol/L (3.5-5.1); Sodium 143 mmol/L (136-145)
== END 2024-01-28 11:34 | disposition home or self-care (01) ==
LOC: LAB 11:33
PROVIDERS: PCP Family Medicine; Visit Provider Internal Medicine
DX: N18.4 Chronic kidney disease, stage 4 (severe) (principal); N18.9 Chronic kidney disease, unspecified; D63.1 Anemia in chronic kidney disease
CPT/HCPCS: 36415; 80069; 85027

== ENCOUNTER 2024-02-21 12:42 | Outpatient (OUT) | payer MEDICARE, OTHER, SELFPAY ==
[2024-02-21 13:01] LABS: Hemoglobin 10.2 g/dL (14.0-18.0); Mean Corpuscular Hemoglobin 30.9 pg (25.9-34.0); Mean Corpuscular Volume 90.9 fL (80.0-94.0); Mean Platelet Volume 8.9 fL (9.5-13.5); Platelet Count 175 10^3/uL (150-450); Red Cell Distribution Width 13.2 % (11.0-15.0)
[2024-02-21 13:33] LABS: Creatinine Urine Random 43.22 mg/dL (20.00-300.00); Protein Creatinine Ratio Urine 5.24; Total Protein Urine Random 226.5 mg/dL (<=11.9)
[2024-02-21 13:43] LABS: Albumin Level 3.6 g/dL (3.4-5.0); Anion Gap 16.8; BUN Creatinine Ratio 18.1; Calcium 8.3 mg/dL (8.5-10.1); Carbon Dioxide 25.1 mmol/L (21.0-32.0); Chloride 109 mmol/L (98-107); Estimated GFR (African America 22 (>=60 mL/min/1.73m^2); Estimated GFR (Non-African Ame 18 (>=60 mL/min/1.73m^2); Glucose 64 mg/dL (74-106); Magnesium 1.9 mg/dL (1.8-2.4); Phosphorus 4.3 mg/dL (2.6-4.7); Potassium 4.9 mmol/L (3.5-5.1); Sodium 146 mmol/L (136-145); Uric Acid 6.4 mg/dL (3.5-7.2)
[2024-02-21 13:44] LABS: Percent Iron Saturation 26.2 %
[2024-02-21 14:56] LABS: Bilirubin Urine NEGATIVE (NEGATIVE); Blood Urine SMALL (NEGATIVE); Clarity Urine CLEAR (CLEAR); Color Urine LT. YELLOW (YELLOW); Glucose Urine UA NEGATIVE (NEGATIVE); Ketones Urine NEGATIVE (NEGATIVE); Leukocyte Esterase Urine NEGATIVE (NEGATIVE); Nitrite Urine NEGATIVE (NEGATIVE); Protein Urine >=300 mg/dL (NEG/TRACE); Urobilinogen Urine 0.2 EU/dL (0.2-1.0)
[2024-02-21 14:57] LABS: Bacteria Urine TRACE #/HPF (NONE SEEN); Cast Seen? NONE SEEN #/LPF (NONE SEEN); Crystals Seen? None Seen #/HPF (None Seen); Mucus Urine NONE SEEN (NONE SEEN); RBC Urine 0-2 #/HPF (0-2); WBC Urine NONE SEEN #/HPF (NONE SEEN)
[2024-02-21 14:59] LABS: Squamous Epithelial Cell Urine NONE SEEN #/LPF (NONE/RARE)
== END 2024-02-21 12:43 | disposition home or self-care (01) ==
LOC: LAB 12:43
PROVIDERS: PCP Family Medicine; Visit Provider Internal Medicine
DX: E87.5 Hyperkalemia (principal); E11.22 Type 2 diabetes mellitus with diabetic chronic kidney disease; I12.9 Hypertensive chronic kidney disease with stage 1 through stage 4 chronic kidney disease, or unspecified chronic kidney disease; N18.9 Chronic kidney disease, unspecified; D63.1 Anemia in chronic kidney disease; N18.4 Chronic kidney disease, stage 4 (severe)
CPT/HCPCS: 36415; 80069; 81001; 82306; 82570; 82728; 83540; 83550; 83735; 84156; 84550; 85027

== ENCOUNTER 2024-03-13 12:36 | Outpatient (OUT) | payer MEDICARE, OTHER, SELFPAY ==
[2024-03-13 12:57] LABS: Hematocrit 31.9 % (42.0-54.0); Hemoglobin 10.6 g/dL (14.0-18.0); Mean Corpuscular HGB Conc 33.2 g/dL (29.9-35.2); Mean Corpuscular Hemoglobin 30.2 pg (25.9-34.0); Mean Corpuscular Volume 90.9 fL (80.0-94.0); Mean Platelet Volume 8.8 fL (9.5-13.5); Platelet Count 202 10^3/uL (150-450); Red Blood Count 3.51 10^6/uL (4.70-6.10); Red Cell Distribution Width 13.1 % (11.0-15.0); White Blood Count 8.2 10^3/uL (4.0-11.0)
[2024-03-13 13:06] LABS: Albumin Level 3.5 g/dL (3.4-5.0); Anion Gap 13.7; BUN Creatinine Ratio 16.4; Calcium 8.4 mg/dL (8.5-10.1); Carbon Dioxide 25.4 mmol/L (21.0-32.0); Chloride 108 mmol/L (98-107); Estimated GFR (African America 21 (>=60 mL/min/1.73m^2); Estimated GFR (Non-African Ame 17 (>=60 mL/min/1.73m^2); Glucose 80 mg/dL (74-106); Phosphorus 4.1 mg/dL (2.6-4.7); Potassium 5.1 mmol/L (3.5-5.1); Sodium 142 mmol/L (136-145)
== END 2024-03-13 12:37 | disposition home or self-care (01) ==
LOC: LAB 12:36
PROVIDERS: PCP Family Medicine; Visit Provider Internal Medicine
DX: N18.9 Chronic kidney disease, unspecified (principal); D63.1 Anemia in chronic kidney disease; N18.4 Chronic kidney disease, stage 4 (severe)
CPT/HCPCS: 36415; 80069; 85027

== ENCOUNTER 2024-04-16 12:40 | Outpatient (OUT) | payer MEDICARE, OTHER, SELFPAY ==
[2024-04-16 12:57] LABS: Hematocrit 25.8 % (42.0-54.0); Hemoglobin 8.4 g/dL (14.0-18.0); Mean Corpuscular HGB Conc 32.6 g/dL (29.9-35.2); Mean Corpuscular Hemoglobin 30.2 pg (25.9-34.0); Mean Corpuscular Volume 92.8 fL (80.0-94.0); Mean Platelet Volume 8.9 fL (9.5-13.5); Platelet Count 135 10^3/uL (150-450); Red Blood Count 2.78 10^6/uL (4.70-6.10); Red Cell Distribution Width 13.1 % (11.0-15.0); White Blood Count 6.4 10^3/uL (4.0-11.0)
[2024-04-16 13:37] LABS: Bilirubin Urine NEGATIVE (NEGATIVE); Blood Urine SMALL (NEGATIVE); Clarity Urine CLEAR (CLEAR); Color Urine LT. YELLOW (YELLOW); Glucose Urine UA NEGATIVE (NEGATIVE); Ketones Urine NEGATIVE (NEGATIVE); Leukocyte Esterase Urine NEGATIVE (NEGATIVE); Nitrite Urine NEGATIVE (NEGATIVE); Protein Urine >=300 mg/dL (NEG/TRACE); Urobilinogen Urine 0.2 EU/dL (0.2-1.0); pH Urine 5.5 (5.0-9.0)
[2024-04-16 13:45] LABS: Bacteria Urine TRACE #/HPF (NONE SEEN); Cast Seen? NONE SEEN #/LPF (NONE SEEN); Crystals Seen? None Seen #/HPF (None Seen); Mucus Urine NONE SEEN (NONE SEEN); RBC Urine 0-2 #/HPF (0-2); Squamous Epithelial Cell Urine RARE #/LPF (NONE/RARE); WBC Urine 0-2 #/HPF (NONE SEEN)
[2024-04-16 14:07] LABS: Creatinine Urine Random 55.36 mg/dL (20.00-300.00); Protein Creatinine Ratio Urine 4.05
[2024-04-16 14:11] LABS: Albumin Level 3.3 g/dL (3.4-5.0); Anion Gap 13.7; BUN Creatinine Ratio 16.9; Calcium 8.1 mg/dL (8.5-10.1); Carbon Dioxide 25.4 mmol/L (21.0-32.0); Chloride 108 mmol/L (98-107); Estimated GFR (African America 21 (>=60 mL/min/1.73m^2); Estimated GFR (Non-African Ame 17 (>=60 mL/min/1.73m^2); Glucose 62 mg/dL (74-106); Phosphorus 4.4 mg/dL (2.6-4.7); Potassium 5.1 mmol/L (3.5-5.1); Sodium 142 mmol/L (136-145); Uric Acid 6.2 mg/dL (3.5-7.2)
[2024-04-16 14:13] LABS: Percent Iron Saturation 22.4 %
[2024-04-17 11:07] LABS: PTH, Intact 150 pg/mL (15-65)
== END 2024-04-16 12:41 | disposition home or self-care (01) ==
LOC: LAB 12:40
PROVIDERS: PCP Family Medicine; Visit Provider Internal Medicine
DX: I12.9 Hypertensive chronic kidney disease with stage 1 through stage 4 chronic kidney disease, or unspecified chronic kidney disease (principal); N18.4 Chronic kidney disease, stage 4 (severe); N18.9 Chronic kidney disease, unspecified; D63.1 Anemia in chronic kidney disease; E11.22 Type 2 diabetes mellitus with diabetic chronic kidney disease; E87.5 Hyperkalemia
CPT/HCPCS: 36415; 80069; 81001; 82306; 82570; 82728; 83540; 83550; 83735; 83970; 84156; 84550; 85027

== ENCOUNTER 2024-04-30 12:26 | Outpatient (OUT) | payer MEDICARE, OTHER, SELFPAY ==
[2024-04-30 12:39] LABS: Hematocrit 26.4 % (42.0-54.0); Hemoglobin 8.7 g/dL (14.0-18.0); Mean Corpuscular Hemoglobin 31.1 pg (25.9-34.0); Mean Corpuscular Volume 94.3 fL (80.0-94.0); Mean Platelet Volume 8.6 fL (9.5-13.5); Platelet Count 161 10^3/uL (150-450); Red Cell Distribution Width 13.4 % (11.0-15.0); White Blood Count 6.8 10^3/uL (4.0-11.0)
== END 2024-04-30 12:27 | disposition home or self-care (01) ==
LOC: LAB 12:26
PROVIDERS: PCP Family Medicine; Visit Provider Internal Medicine
DX: E83.42 Hypomagnesemia (principal); R31.29 Other microscopic hematuria; R80.9 Proteinuria, unspecified; N25.81 Secondary hyperparathyroidism of renal origin; E87.5 Hyperkalemia; E11.22 Type 2 diabetes mellitus with diabetic chronic kidney disease
CPT/HCPCS: 36415; 85027

== ENCOUNTER 2024-05-11 13:47 | Outpatient (OUT) | payer MEDICARE, OTHER, SELFPAY ==
[2024-05-11 14:35] LABS: Estimated Average Glucose 100 mg/dL; Glycohemoglobin A1C 5.1 % (4.5-6.2)
== END 2024-05-11 13:48 | disposition home or self-care (01) ==
LOC: LAB 13:47
PROVIDERS: PCP Family Medicine; Visit Provider Family Medicine
DX: E11.22 Type 2 diabetes mellitus with diabetic chronic kidney disease (principal); N18.4 Chronic kidney disease, stage 4 (severe)
CPT/HCPCS: 36415; 83036

== ENCOUNTER 2024-05-11 13:57 | Outpatient (OUT) | payer MEDICARE, OTHER, SELFPAY ==
--- NOTE | 2024-05-11 14:00 | CA_ITS ---
Patient Name: VALERIY SANTOS MR#: [id number] : 1950 Exam Date: 05/11/2024 Ordering Doctor: DR VADIM JOYNER M.D. ECHOCARDIOGRAM REPORT PROCEDURE: CA ECHO DOPPLER COMPLETE INDICATIONS: CAD eval asymptomatic, Presence of coronary artery graft COMPARISON: None. DESCRIPTION: COMPLETE ECHOCARDIOGRAM Real-time transthoracic echocardiography with 2D, M-mode, spectral and color flow Doppler performed. QUALITY: Technical quality was good. LEFT VENTRICLE: Normal chamber size. Mild to moderate concentric left ventricular hypertrophy. Global left ventricular systolic function is normal. LV EF: Estimated left ventricular ejection fraction is 65%. DIASTOLIC: Grade II diastolic dysfunction. ATRIAL SEPTUM: LEFT ATRIUM: Severe dilatation. RIGHT ATRIUM: Mild dilatation. RIGHT VENTRICLE: Normal chamber size. Normal right ventricular systolic function. TRICUSPID VALVE: Normal mobility and thickness. No stenosis with trivial regurgitation. Moderate pulmonary hypertension. RVSP 48 mmHg MITRAL VALVE: Normal mobility and thickness. No evidence of mitral valve stenosis. There is no mitral annular calcification. Trivial mitral regurgitation. AORTIC VALVE: Normal trileaflet appearance. No visible sclerosis. Normal leaflet mobility. No evidence of aortic valve stenosis. No aortic regurgitation. AORTIC ROOT: Normal diameter and appearance, measuring 3.4 cm. Normal size ascending aorta measuring 3.0 cm. PULMONIC VALVE: Normal thickness and mobility. No stenosis. No regurgitation. PERICARDIUM: No evidence of pericardial effusion. IVC: Collapses with inspirations. Dilated measuring 2.6 cm. PLEURA: CONCLUSION: 1. Mild to moderate concentric left ventricular hypertrophy with normal systolic function. LVEF is 65%. 2. Normal right ventricular size and systolic function. 3. Severe left atrial dilatation. 4. Grade II diastolic dysfunction. 5. No significant valvular dysfunction. 6. Moderate pulmonary hypertension. RVSP 48 mmHg. Adult Echocardiography Procedure Report Left Ventricle LVEDD (3.7 - 5.6 cm): 5.40 cm LVESD (2.2 - 4.0 cm): 3.72 cm LVIVS thickness (0.6 - 1.2 cm): 1.52 cm LVPW thickness (0.5 - 1.0 cm): 1.28 cm e': 0.08 m/s E - e': 14.26 LVOT Max Gradient: 4.55 mm[Hg] LVOT Area (cm2): 1.07 m/s Peak Velocity (LVOT): 1.07 m/s Mean Velocity (LVOT): 0.64 m/s LVOT Diameter 2.10 cm Left Ventricular Ejection Fraction: 65 % Left Atrium LA Volume Index (2D A2C): 74.85 ml/m2 Left Atrium Systolic Dimension: 5.07 cm Mitral Valve MV E to A Ratio: 1.35 Mitral Valve A-Wave Peak Velocity: 0.81 m/s Mitral Valve E-Wave Peak Velocity: 1.10 m/s Right Ventricle RV Internal Diastolic Dimension: 4.02 cm Aorta AO Root Diam: 3.44 cm Ascending Ao Diam: 3.00 cm Aortic Valve AoV Area (Peak Brian): 2.10 cm2, 2.10 cm2 AoV Area (VTI): 1.96 cm2, 1.96 cm2 Peak Velocity(Antegrade Flow): 1.75 m/s Peak Gradient(Antegrade Flow): 12.30 mm[Hg] Mean Velocity(Antegrade Flow): 1.25 m/s Mean Gradient(Antegrade Flow): 7.02 mm[Hg] Velocity Time Integral: 48.63 cm Tricuspid Valve Peak Velocity (Regurgitant Flow): 1.89 m/s, 3.16 m/s Pulmonic Valve Mean Gradient: 4.16 mm[Hg], 5.35 mm[Hg] Mean Velocity: 0.96 m/s, 1.10 m/s Peak Velocity: 1.49 m/s Peak Gradient: 8.28 mm[Hg], 9.39 mm[Hg] Right Atrium Right Atrium Systolic Pressure: 39.05 ml, 39.05 ml Dictated by: Vadim Joyner M.D. on 05/11/2024 at 15:37 Approved by: Vdaim Joyner M.D. on 05/11/2024 at 15:42
== END 2024-05-11 13:58 | disposition home or self-care (01) ==
LOC: CARD 13:57
PROVIDERS: PCP Family Medicine; Visit Provider Internal Medicine Interventional Cardiology
DX: I25.10 Atherosclerotic heart disease of native coronary artery without angina pectoris (principal); Z95.5 Presence of coronary angioplasty implant and graft
CPT/HCPCS: 93306

== ENCOUNTER 2024-05-15 15:56 | Outpatient (OUT) | payer MEDICARE, OTHER, SELFPAY ==
[2024-05-15 16:09] LABS: Hematocrit 26.9 % (42.0-54.0); Hemoglobin 8.8 g/dL (14.0-18.0); Mean Corpuscular HGB Conc 32.7 g/dL (29.9-35.2); Mean Corpuscular Hemoglobin 30.8 pg (25.9-34.0); Mean Corpuscular Volume 94.1 fL (80.0-94.0); Mean Platelet Volume 8.6 fL (9.5-13.5); Platelet Count 155 10^3/uL (150-450); Red Blood Count 2.86 10^6/uL (4.70-6.10); Red Cell Distribution Width 13.2 % (11.0-15.0); White Blood Count 6.1 10^3/uL (4.0-11.0)
[2024-05-15 16:15] LABS: Albumin Level 3.5 g/dL (3.4-5.0); Anion Gap 14.2; BUN Creatinine Ratio 17.2; Calcium 8.2 mg/dL (8.5-10.1); Carbon Dioxide 26.3 mmol/L (21.0-32.0); Chloride 109 mmol/L (98-107); Estimated GFR (African America 19 (>=60 mL/min/1.73m^2); Estimated GFR (Non-African Ame 16 (>=60 mL/min/1.73m^2); Glucose 72 mg/dL (74-106); Phosphorus 5.2 mg/dL (2.6-4.7); Potassium 5.5 mmol/L (3.5-5.1); Sodium 144 mmol/L (136-145)
== END 2024-05-15 15:57 | disposition home or self-care (01) ==
LOC: LAB 15:56
PROVIDERS: PCP Family Medicine; Visit Provider Internal Medicine
DX: E11.22 Type 2 diabetes mellitus with diabetic chronic kidney disease (principal); I12.9 Hypertensive chronic kidney disease with stage 1 through stage 4 chronic kidney disease, or unspecified chronic kidney disease; N18.4 Chronic kidney disease, stage 4 (severe); N18.9 Chronic kidney disease, unspecified; D63.1 Anemia in chronic kidney disease
CPT/HCPCS: 36415; 80069; 85027

== ENCOUNTER 2024-05-19 14:13 | Outpatient (REF) | payer MEDICARE, OTHER, SELFPAY ==
[2024-05-19 15:39] LABS: C. Difficile PCR NEGATIVE
== END 2024-05-19 14:14 | disposition home or self-care (01) ==
LOC: LAB 14:13
PROVIDERS: PCP Family Medicine; Visit Provider Family Medicine
DX: R19.7 Diarrhea, unspecified (principal)
CPT/HCPCS: 87493

== ENCOUNTER 2024-05-27 13:22 | Outpatient (OUT) | payer MEDICARE, OTHER, SELFPAY ==
[2024-05-27 14:04] LABS: Hematocrit 25.2 % (42.0-54.0); Hemoglobin 7.9 g/dL (14.0-18.0); Mean Corpuscular HGB Conc 31.3 g/dL (29.9-35.2); Mean Corpuscular Hemoglobin 30.4 pg (25.9-34.0); Mean Corpuscular Volume 96.9 fL (80.0-94.0); Mean Platelet Volume 9.1 fL (9.5-13.5); Platelet Count 162 10^3/uL (150-450); Red Cell Distribution Width 13.6 % (11.0-15.0); White Blood Count 6.8 10^3/uL (4.0-11.0)
[2024-05-27 14:20] LABS: Albumin Level 3.1 g/dL (3.4-5.0); Anion Gap 16.4; Calcium 8.2 mg/dL (8.5-10.1); Carbon Dioxide 23.2 mmol/L (21.0-32.0); Chloride 110 mmol/L (98-107); Estimated GFR (African America 19 (>=60 mL/min/1.73m^2); Estimated GFR (Non-African Ame 16 (>=60 mL/min/1.73m^2); Glucose 111 mg/dL (74-106); Phosphorus 4.7 mg/dL (2.6-4.7); Potassium 5.6 mmol/L (3.5-5.1); Sodium 144 mmol/L (136-145)
== END 2024-05-27 13:23 | disposition home or self-care (01) ==
LOC: LAB 13:22
PROVIDERS: PCP Family Medicine; Visit Provider Internal Medicine
DX: N18.4 Chronic kidney disease, stage 4 (severe) (principal); D63.1 Anemia in chronic kidney disease; N18.9 Chronic kidney disease, unspecified
CPT/HCPCS: 36415; 80069; 85027

== ENCOUNTER 2024-05-28 00:28 | Emergency (ER) | payer MEDICARE, OTHER, SELFPAY ==
[2024-05-28] VITALS (29 sets, daily range): BP systolic 134–162; BP diastolic 38–81; PULSE 54–69; TEMP 36.7; O2SAT 88–99; BMI 28.8
--- OUTSIDE RECORDS SUMMARY | 2024-05-28 00:46 | XMS_ITS | CCD ---
Author Organization [facility] Care Team Providers Care Distribution Analyst Name Role Phone UNKNOWN, PROVIDER Admitting Unavailable UNKNOWN, PROVIDER Attending Unavailable RUBEN LUO Referring Unavailable RUBEN LUO Primary Care Unavailable GABY ORTIZ Admitting Unavailable GABY ORTIZ Attending Unavailable RUBEN LUO Primary Care Unavailable OTILIA SANCHEZ Referring Unavailable [place] Procedure Practitioner Unavailab le UNKNOWN, PROVIDER Surgeon Unavailable Ruben Luo MD Primary Care Provider Ney Roman Unavailable Oma Sewell Unavailable Orlando Beaver Unavailable MD Ruben Luo Primary Care Provider MD Orlando Beaver Attending Provider Ruben Luo MD Primary Care Provider Ruben Luo MD Primary Care Provider [phone] RUBEN LUO Primary Care Unavailable DYAN, OLUREMI A Consulting Unavailable RUBEN LUO Primary Care Unavailable UDO-INYANG, INYANG Admitting Unavailable UDO-INYANG, INYANG Attending Unavailable BakcarolinasMckayiz Unavailable DONATOOMA Attending Unavailable DONATOAUGUSTOUL Admitting Unavailable PUJA ., [...] Unavailable Dasia Flowers Unavailable [facility] [place] Referring Unavailable HEMEYERRUBEN Primary Care Unavailable UDO-INYANG, INYANG Attending Unavailable RUBEN LUO Primary Care Unavailable UDO-INYANG, INYANG Referring Unavailable UDO-INYANG, INYANG Referring Unavailable RUBEN LUO Primary Care Unavailable UDO-INYANG, INYANG Referring Unavailable RUBEN LUO Primary Care Unavailable TERRA, SHARON Referring Unavailable RUBEN LUO Primary Care Unavailable TERRA, SHARON Referring Unavailable HEMERUBEN CONSTANTINO Primary Care Unavailable TERRA, SHARON Referring Unavailable HEMERUBEN CONSTANTINO Primary Care Unavailable UDO-INYANG, INYANG Referring Unavailable RUBEN LUO Primary Care Unavailable OSIEL ELAINE Referring Unavailable RUBEN LUO Primary Care Unavailable UDO-INYANG, INYANG Referring Unavailable RUBEN LUO Primary Care Unavailable MD Ruben Luo Primary Care Provider MD Ney Roman Attending Provider [phone] Ruben Luo MD Primary Care Provider Ruben Luo MD Unavailable [phone] FAHAD Reese Attending Provider [phone] MD Ruben Luo Primary Care Provider Ruben Luo Primary Care Unavailable Patric Reese Attending Unavailable Shantel Villarreal PA-C Referring Yesenia Yates Attending Ky Luo MD, [facility] Care Ky Brink PA-C, Natan Beckwith Attending Unavail able Puja TURPIN, Ruben [facility] Natan Garcia PA-C Attending Unavail able Puja TURPIN, Ruben [facility] Care Jennyi Gabe Rios MD, Jr Attending Unavail able Puja TURPIN, [facility] Lizette Stapleton PA-C Consulting Unavailab le Gabe Harris MD, Jr Admitting Unavail able Gabe Harris MD, Jr Attending Unavail able Puja TURPIN, [facility] Primary Care Patricia Mckeon Consulting Unavaila ble Cherelle VÁSQUEZ, Shantel Beckwith Referring Ky Luo MD, Ruben [facility] Ky Villarreal PA-C, Shantel Beckwith Attending Ky Roca MD, Domenic Perales Attending Mariano Luo MD, Ruben [facility] Ky Harris Jr., MD, Gabe Unavailable Donato TURPIN, Oma Unavailable Vadim Veronica MD Unavailable [facility], Josie Unavailable Ruben Luo MD Primary Care Provider Ruben Luo MD Unavailable Gabe Pena MD, [facility] Vadim Veronica MD Unavailable Ruben Luo Primary Care Unavailable Ney Roman Attending UnavailNey Gama Admitting Ruben Gongora MD Unavailable Ruben Luo MD Primary Care Provider Ney Roman MD Attending Provider VADIM VERONICA Attending Unavailable ALDO ROJAS Attending Unavailable VADIM VERONICA Attending Unavailable RUBEN LUO Attending Unavailable KAELA ALFONSO Attending Unavailable RUBEN LUO Attending Unavailable RUBEN LUO Attending Unavailable Allergies Allergy Classification Reported Allergen(s) Allergy Type Date of Onset Reaction(s) Facility (20 sources) Angiotensin Converting Enzyme (Noelle) Inhibitors; Translations: [NOELLE INHIBITORS] Propensity to adverse reactions to drug 09-17-19 14 Other (See Comments) [employer] (20 sources) Acetaminophen / HYDROcodone Drug Allergy nausea vomiting [employer] Other (20 sources) Lisinopril; Translations: [lisinopril] Drug Allergy cough [facility] (19 sources) Codeine; Translations: [codeine] Drug Allergy 07-12-19 23 Nausea And Vomiting [facility] Work Phone: (18 sources) Sulfamethoxazole / Trimethoprim; Translations: [SULFAMETHOXAZOLE-T RIMETHOPRIM] Drug Allergy 07-12-19 23 Nausea And Vomiting [facility] [employer] Phone: (12 sources) Substance with sulfonamide structure and antibacterial mechanism of action (substance) Drug allergy stomach upset [employer] Other (17 sources) Acetaminophen / HYDROcodone; Translations: [HYDROCODONE-ACETAM INOPHEN] Drug Allergy 05-15-19 [facility] (17 sources) amLODIPine; Translations: [AMLODIPINE] Drug Allergy 05-15-19 22 Swelling [facility] (16 sources) Angiotensin-convert ing enzyme inhibitor agent Drug Intolerance 09-17-19 14 [facility] (18 sources) gabapentin; Translations: [gabapentin] Drug Allergy 07-06-19 23 [facility] (17 sources) levoFLOXacin; Translations: [LEVOFLOXACIN] Drug Allergy 01-13-20 [facility] (17 sources) Pregabalin; Translations: [PREGABALIN] Allergy to substance 07-06-19 [facility] (1 source) Naproxen; Translations: [Aleve] Drug Allergy [facility] (1 source) Sulfonamides (Antibiotic); Translations: [sulfa drugs] Propensity to adverse reactions to drug (disorder) [facility] (1 source) Acetaminophen Drug Allergy 03-25-20 [facility] Rep[facility] (1 source) Angiotensin Converting Enzyme (Noelle) Inhibitors Drug allergy (disorder) 03-25-20 [facility] (1 source) HYDROcodone Drug Allergy 03-25-20 [facility] (1 source) Lisinopril Drug Allergy 03-25-20 [facility] (1 source) Sulfonamides (Antibiotic) Drug allergy (disorder) 03-25-20 [facility] Rep[facility] Medications Current Medications Medication [...] solution (20 sources) beta2-Adrenergi c Agonist Start: 06-10-2023 End: 11-09-2024 albuterol (2.5 MG/3ML) 0.083 % nebulizer solution Indications: Moderate persistent asthma without complication (CMS/HCC) Take 3 mL (2.5 mg) by nebulization every 6 (six) hours if needed for shortness of breath 300 mL 2 05/13/2024 11/09/2024 Active Start: 07-21-2022 albuterol (PRO VENTIL) nebulizer solution 2.5 mg Start: 06-15-2015 take [...] hours if needed for shortness of breath. Active Albuterol Sulfat e (2.5 MG/3ML) 0.083% [...] Dihydropyridine Calcium Channel Suleman Start: 05-04-2016 End: 11-09-2024 take 1 tablet by mouth once daily amLODIPine (Norvasc) 10 MG tablet Indications: Benign essential HTN (CMS/HCC) Take 1 tablet (10 mg) by mouth Daily 90 tablet 1 05/13/2024 11/09/2024 Active Start: 05-04-2016 take 1 tablet by [...] drug interaction check* Active aspirin 81 mg delayed release oral tablet (20 sources) Platelet Aggregation Inhibitor, Nonsteroidal Anti-inflammatory Drug Start: 06-10-2023 Aspirin 81 mg tablet,delayed release (DR/EC) Active 81 MG PO .COMPLEX June 10, 2023 12:00am 81 mg orally Sat, Sat, and Sat; FreeTextSi tablet Orally SATURDAY, SATURDAY AND SATURDAY; Note: Source Status: Taking; Provider: Donato Ernandez ( ) Start: 04-16-2022 End: 06-10-2023 take 1 capsule by mouth once daily Aspirin 81 mg Capsule Discontinued 81 MG PO Daily April 16, 2022 12:00am June 10, 2023 10:40am atorvastatin 40 mg oral tablet (20 sources) HMG-CoA Reductase Inhibitor Start: 04-16-2022 End: 11-09-2024 take 1 tablet by mouth once daily atorvastatin (Lipitor) 40 MG tablet Indications: Hyperlipidemia associated with type 2 diabetes mellitus (CMS/HCC) Take 1 tablet (40 mg) by mouth Daily 90 tablet 1 05/13/2024 11/09/2024 Active azelastine hydrochloride 0.137 mg/actuat metered dose nasal spray (14 sources) Histamine-1 Receptor Antagonist Start: 04-17-2022 take 2 spray(s) nasal route twice daily as needed azelastine (Astelin) 0.1 % nasal spray Administer 2 sprays into each nostril 2 (two) times a day as needed for allergies. 04/17/2022 Active Biotin (4 sources) take 0.5 tablet by mouth once daily Biotin 55355 MCG 1/2 TABLET Orally Once a day Active take 1 tablet by mouth once yamilka y Biotin 60788 MCG 1 tablet Orally Once a day Active carvedilol 12.5 mg oral tablet (20 sources) alpha-Adrenergic Suleman, beta-Adrenergic Suleman Start: 07-25-2022 take 1 tablet by mouth twice daily at mealtime carvedilol (COREG) 12.5 MG tablet Take 1 tablet by mouth 2 times daily (with meals) 60 tablet 3 07/25/2022 Active Start: 07-19-2022 carvedilol (CO REG) tablet 12.5 mg Start: 01-12-2022 End: 07-09-2023 take 1 tablet by mouth twice daily Carvedilol 6.25 mg tablet Discontinued 6.25 MG PO Twice daily April 16, 2022 12:00am July 09, 2023 1:59pm Start: 01-12-2022 End: 07-09-2023 take 1 tablet by mouth twice daily Carvedilol 3.125 mg tablet Discontinued 3.125 MG PO Twice daily April 16, 2022 12:00am July 09, 2023 1:59pm cholecalciferol 0.05 mg oral tablet (20 sources) Vitamin D Start: 04-16-2022 take 1 tablet by mouth in the morning cholecalciferol (Vitamin D-3) 50 MCG (2000 UT) tablet Take 50 mcg by mouth in the morning. 08/28/2022 Active take 1 capsule by mo uth every twenty-four hours Vitamin D3 50 MCG [...] tablet Orally Once a day Active doxazosin 2 mg oral tablet (20 sources) alpha-Adrenergic Suleman Start: 05-19-2024 take 1 tablet by mouth twice daily Doxazosin 2 mg tablet Active 2 MG PO Twice daily May 19, 2024 2:51pm Start: 03-30-2024 End: 05-19-2024 take 1 tablet by mouth once daily Doxazosin 2 mg tablet Discontinued 2 MG PO Daily April 23, 2024 12:00am May 19, 2024 2:51pm Start: 07-27-2022 take 1 tablet by papito th once daily doxazosin (CARDURA) 8 MG tablet Take 1 tablet by mouth daily 30 tablet 3 07/27/2022 Active Start: 07-26-2022 doxazosin (CAR DURA) tablet 8 mg Start: 07-20-2022 End: 07-25-2022 doxazosin (CARDURA) tablet 4 mg Start: 04-16-2022 End: 06-10-2023 take 1 tablet by mouth once daily Doxazosin 2 mg Tablet Discontinued 2 MG PO Daily April 16, 2022 12:00am June 10, 2023 10:45am doxycycline hyclate 100 mg oral tablet (20 sources) Tetracycline-class Drug Start: 06-10-2023 End: 02-26-2024 take 1 tablet by mouth once daily as needed Doxycycline Hyclate 100 mg tablet Active 100 MG PO Daily as needed June 10, 2023 12:00am FreeTextSi tablet Orally prn; Note: Source Status: Taking; Provider: Donato Ernandez ( ) Start: 12-02-2018 End: 04-30-2023 take 1 capsule by mouth once daily as needed doxycycline (Vibramycin) 100 MG capsule Indications: Rosacea Take 1 capsule (100 mg) by mouth Daily as needed (rosacea). 30 capsule 5 11/01/2022 04/30/2023 Doxycycline Hycl ate 100 MG 1 tablet Orally prn Active take 1 capsule by mo uth twice daily as needed doxycycline hyclate (VIBRAMYCIN) 100 MG capsule Take 1 capsule by mouth 2 times daily As needed for rosacea 0 Active epoetin michelle 80323 unt/ml injectable solution (20 sources) Erythropoiesis-stimulating Agent inject 1000 [IU] by subcutaneous injection every other week epoetin michelle (Epogen,Procrit) 37170 UNIT/ML injection Inject 1,000 Units under the skin See administration instructions Every two weeks Active inject 1000 [IU] by subcutaneous injection every 30 days epoetin michelle (Epogen,Procrit) 01763 UNIT /ML injection Inject 1,000 Units under the skin every 30 (thirty) days Active epoetin michelle (Ep ogen,Procrit) 56555 UNIT/ML injection Inject 1,000 Units under the skin See administration instructions. Every 3 weeks 0 Active Procrit 89256 UN IT/ML as directed Injection every 4 weeks Active Procrit 67547 UN IT/ML as directed Injection every 4 weeks Active epoetin michelle (FL OCRIT) 06639 UNIT/ML injection Inject 1,000 Units into the [...] Take 30 mg by mouth 0 Active ferrous gluconate 240 mg oral tablet (20 sources) Start: 08-05-2023 take 1 tablet by mouth twice daily Ferrous Gluconate (Fergon) 240 mg (27 mg iron) tablet Active 240 MG PO Twice daily August 05, 2023 12:41pm Start: 06-10-2023 End: 08-05-2023 take 1 tablet by mouth once daily Ferrous Gluconate (Fergon) 240 mg (27 mg iron) tablet Discontinued 240 MG PO Daily June 10, 2023 12:00am August 05, 2023 12:41pm fluticasone propionate 0.05 mg/actuat metered dose nasal spray (1 source) Corticosteroid Start: 12-21-2018 take 1 spray(s) nasal route twice daily Fluticasone Propionate 50 MCG/ACT 1 spray in each nostril Nasally bid for 30 day(s) Dec, Active furosemide 20 mg oral tablet (20 sources) Loop Diuretic Start: 08-05-2023 End: 12-25-2023 take 10 mg by mouth once daily Furosemide (Lasix) 20 mg tablet Active 10 MG PO Daily 90 December 25, 2023 11:15am Start: 07-09-2023 End: 08-05-2023 Furosemide (Lasix) 20 mg tab let Discontinued 10 MG PO Every 48 hours July 09, 2023 2:00pm August 05, 2023 12:42pm Start: 06-10-2023 End: 07-09-2023 take 1 tablet by mouth once daily Furosemide (Lasix) 20 mg tablet Discontinued 20 MG PO Daily June 10, 2023 12:00am July 09, 2023 2:03pm FreeTextSi tablet Orally Once a day; Note: Source Status: Taking; Refills: 1; Qty: 90 Tablet; Provider: Donato Ernandez Start: 09-10-2022 take 1 tablet by papito th in the morning furosemide (Lasix) 20 MG tablet Take 20 mg by mouth in the morning. 0 09/10/2022 Active take 0.5 tablet by m outh once daily Lasix 40 MG 1/2 tablet Orally Once a day Active take 1 tablet by papito th every twenty-four hours Lasix 40 MG 1 tablet Orally Once a day for 90 days Active glipiZIDE 5 mg oral tablet (20 sources) Sulfonylurea Start: 10-30-2023 End: 11-09-2024 glipiZIDE (Glucotrol) 5 MG tablet Indications: Type 2 diabetes mellitus with stage 4 chronic kidney disease, without long-term current use of insulin ([facility]) Take 1 tablet (5 mg) by mouth Daily 90 tablet 1 05/13/2024 11/09/2024 Active Start: 03-28-2023 End: 04-23-2024 Glipizide 5 mg tablet Discon tinued 5 MG PO Twice daily as needed June 10, 2023 12:00am April 23, 2024 10:13am FreeTextSi tablet 30 minutes before breakfast Orally ONCE OR TWICE A DAY IF ON STEROIDS; Note: Source Status: Taking; Provider: Donato Ernandez ( ) Start: 07-27-2022 take 1 tablet by papito [...] for e-prescription and drug interaction check* Active Magnesium (15 sources) take 1 tablet by papito before mealtime Magnesium 400 MG capsule Take 1 tablet by mouth in the morning. Take before meals. Active take 1 tablet by papito th before mealtime Magnesium 400 MG capsule Take 1 tablet by mouth in the morning. Take before meals. 0 Active End: 07-25-2022 take 1 capsule by mouth once daily Magnesium 400 MG CAPS Take 400 mg by mouth daily 0 07/25/2022 Discontinued (Stop Taking at Discharge) magnesium oxide 400 mg oral tablet (20 sources) Start: 04-15-2024 take 1 tablet by mouth once daily Magnesium Oxide 400 mg (241.3 mg magnesium) tablet Active 0 .ROUTE .COMPLEX April 15, 2024 9:38am TAKE 1 TABLET BY MOUTH DAILY Start: 12-14-2021 End: 04-15-2024 take 1 tablet by mouth once daily Magnesium Oxide 400 mg magnesium tablet Discontinued 400 MG PO Daily October 28, 2023 12:26pm April 15, 2024 9:39am take 1 tablet by papito th once daily Magnesium Oxide 400 MG CAPS Take 1 tablet by mouth daily 0 Active 24 hr metoprolol succinate 50 mg extended release oral tablet (20 sources) beta-Adrenergic Suleman Start: 07-09-2023 take 1 tablet by mouth once daily Metoprolol Succinate 50 mg tablet extended release 24 hr Active 50 MG PO Daily July 08, 2023 11:00pm take 1 tablet by mouth once yamilka y metoprolol (LOPRESSOR) 50 MG tablet Take 50 mg by mouth daily. 0 Active 1 ml morphine sulfate 2 mg/ml cartridge (1 source) Opioid Agonist Start: 07-19-2022 morphine (PF) injection 2 mg Multi For Him - (4 sources) Multi For Him - as directed Orally Active Multi-Vitamins (20 sources) Start: 02-11-2012 take 1 tablet by mouth once daily [...] by mouth daily. 0 Active Multivitamin preparation (11 sources) Start: 04-16-2022 take 1 tablet by mouth once daily Multivitamin Active 1 TAB PO Daily April 16, 2022 1:00am Start: 04-16-2022 take 1 tablet by paipto th once daily Multivitamin Active 1 TAB PO Daily April 16, 2022 12:00am Multivitamin Tablet (4 sources) Start: 04-16-2022 take 1 tablet by mouth once daily Multivitamin Tablet Active 1 TAB PO Daily April 16, 2022 12:00am Nitro Sublingual 0.4 0.4mg (4 sources) Nitro Sublingual 0.4 0.4mg 1 Sublingual Every 5min x3 Active ondansetron (ZOFRAN-ODT) disintegrating tablet 4 mg (1 source) Start: 07-20-2022 ondansetron (ZOFRAN-ODT) disintegrating tablet 4 mg Probiotic Product (PROBIOTIC DAILY PO) (7 sources) Probiotic Produc t (PROBIOTIC DAILY PO) Take by mouth daily. 0 Active sildenafil 20 mg oral tablet (13 sources) Phosphodiesterase 5 Inhibitor Start: 05-13-2024 sildenafil (Revatio) 20 MG tablet Indications: Erectile dysfunction, unspecified erectile dysfunction type Take 1 to 5 tablets as needed daily. 90 tablet 1 05/13/2024 Active take 1 tablet by papito th once daily as needed Viagra 100 MG 1 tablet as needed Orally prn Once a day Not-Taking sodium bicarbonate 650 mg oral tablet (13 sources) Start: 01-30-2024 take 1 tablet by mouth in the morning sodium bicarbonate 650 MG tablet Take 650 mg by mouth in the morning and 650 mg before bedtime. 03/23/2024 Active vitamin B12 (20 sources) Vitamin B12 Start: 06-10-2023 take 1 tablet by mouth once daily Cyanocobalamin (Vitamin B-12) 500 mcg tablet Active 1 TAB PO Daily June 10, 2023 12:00am FreeTextSi tablet Orally Once a day; Note: Source Status: Taking; Provider: Donato Ernandez ( ) Start: 06-10-2023 take 1 tablet by papito th once daily Cyanocobalamin (Vitamin B-12) Active 1 TAB PO Daily June 10, 2023 1:00am FreeTextSi tablet Orally Once a day; Note: Source Status: Taking; Provider: Donato Ernandez ( ) take 1 tablet by papito th in the morning cyanocobalamin (Vitamin B-12) 500 MCG tablet Take 500 mcg by mouth in the morning. Active Vitamin B12 3000 MCG as directed Sublingual Active take 1 tablet by papito th once daily Cyanocobalamin 500 MCG 1 tablet Orally Once a day Active take 1 tablet by papito th once daily Cyanocobalamin (VITAMIN B 12) 500 MCG TABS [...] 5 mg, Oral, DAILY, First dose on 4/15/23 at 0900, Until Discontinued Do not crush [...] docusate sodium 50 mg / sennosides, senior care 8.6 mg oral tablet (1 source) Start: 07-20-2022 take 1 tablet by mouth twice daily 1 tablet, Oral, 2 TIMES DAILY, First dose on Sat07/20/22 at 2100, Until Discontinued, Post-op ferrous sulfate 325 mg oral tablet (20 sources) Start: 07-25-2022 End: 07-25-2022 take 1 tablet by mouth twice daily at mealtime ferrous sulfate (IRON 325) 325 (65 Fe) MG tablet Take 1 tablet by mouth 2 times daily (with meals) 30 tablet 3 07/25/2022 07/25/2022 Discontinued (Stop Taking at Discharge) Start: 07-22-2022 ferrous sulfat e (IRON 325) tablet 325 mg Start: 04-16-2022 End: 06-10-2023 take 1 tablet by mouth once daily Ferrous Sulfate 27 mg iron Tablet Discontinued 27 MG PO Daily April 16, 2022 12:00am June 10, 2023 10:42am take 1 tablet by papito th in the morning ferrous sulfate 325 (65 Fe) MG tablet Take 325 mg by mouth in the morning and 325 mg before bedtime. Active fexofenadine hydrochloride 180 mg oral tablet [...] End: 07-23-2022 LORazepam (ATIVAN) injection 0.25 mg losartan potassium 50 mg oral tablet (20 sources) Angiotensin 2 Receptor Suleman Start: 02-21-2018 End: 06-10-2023 take 1 tablet by mouth once daily Losartan 50 mg tablet Discontinued 50 MG PO Daily April 16, 2022 12:00am June 10, 2023 10:44am Start: 02-21-2018 take 0.5 tablet by m out once daily Losartan Potassium 50 MG 1/2 [...] as needed for Pain. 0 07/19/2022 Discontinued metFORMIN hydrochloride 500 mg oral tablet (20 sources) Biguanide Start: 04-16-2022 End: 06-10-2023 take 1 tablet by mouth twice daily Metformin 500 mg Tablet Discontinued 500 MG PO Twice daily April 16, 2022 12:00am June 10, 2023 10:44am End: 07-25-2022 metFORMIN (GLUCOPHAGE) 850 M G tablet Take 500 mg by mouth 2 times daily (with meals) 0 07/25/2022 Discontinued (Stop Taking at Discharge) take 1 tablet by papito twice daily at mealtime metFORMIN (GLUCOPHAGE) 850 MG tablet Take 850 mg by mouth 2 times daily (with meals). 0 Active take 1 tablet by papito twice daily before breakfast metFORMIN HCl 1000 MG 1 tablet with a meal Orally twice a day - before breakfast and evening meals for 90 days please keep on file as refill Active methylPREDNISolone (20 sources) Corticosteroid Start: 08-24-2015 Depo-Medrol 80 mg August, 120 mg montelukast 10 mg oral tablet (1 source) Leukotriene Receptor Antagonist take 1 tablet by mouth every twenty-four hours Singulair 10 MG 1 tablet Orally Once a day for 30 day(s) Not-Taking Nitro Sublingual 0.4 (20 sources) Nitro Sublingual 0.4 Not-Taking Nitro Sublingual 0.4 Active nitroglycerin 0.4 mg sublingual tablet (20 sources) Nitrate Vasodilator Start: 06-10-2023 Nitroglyce rin Active 1 MG SUBLINGUAL EVERY 5 MINUTES June 10, 2023 1:00am FreeTextSi Sublingual Every 5min x3; Note: Source Status: Taking; Provider: Donato Ernandez ( ) Start: 07-19-2022 End: 04-23-2024 Nitroglycerin 0.4 mg tablet, sublingual Discontinued 1 MG SUBLINGUAL EVERY 5 MINUTES June 10, 2023 12:00am April 23, 2024 10:13am FreeTextSi Sublingual Every 5min x3; Note: Source Status: Taking; Provider: Donato Ernandez ( ) polyethylene glycol 3350 63509 mg powder for oral solution (1 source) [...] X2 DAYS, 2 TABLETS X2DAYS, 1 TABLET X2, 1/2 TABLET X2 Not-Taking pregabalin 75 mg oral capsule (4 sources) take 1 capsule by mouth every twelve hours Pregabalin 75 MG 1 capsule Orally Twice a day Not-Taking PROCRIT INJECTION - 1000 units (20 sources) Start: 05-07-2023 PROCRIT INJECT ION - 1000 units Apr, [...] ION - 1000 units Dec, 1000 U 1000 ml sodium chloride 9 mg/ml injection (7 sources) Start: 07-20-2022 take 1 dose intravenously twice daily 5-40 [...] line therapy. Post-[place] [address] mg powder for oral suspension (2 sources) [...] persistent asthma with (acute) exacerbation] Onset: 8 Resolved: 4 05-10-2023 Chronic Chronic kidney disease (20 sources) Chronic kidney disease stage 3B ; Translations: [Chronic kidney disease, stage 3b] Onset: 0 Resolved: 4 Chronic Coronary atherosclerosis and other heart disease (20 sources) Coronary arteriosclerosis in viejas artery; Translations: [Atherosclerotic heart disease of viejas coronary artery without angina pectoris] Onset: 8 Resolved: 4 Chronic Deficiency and other anemia (20 sources) Anemia of renal disease; Translations: [Anemia in chronic kidney disease] 06-09-2023 Chronic Deficiency and other anemia (19 sources) [...] sources) Mixed hyperlipidemia; Translations: [Mixed hyperlipidemia] Onset: 8 Resolved: 3 Chronic E Codes: Fall (1 source) Accidental fall ; Translations: [Fall (on) (from) other stairs and steps, initial encounter] 05-06-2023 Episodic Esophageal disorders (20 sources) Gastroesophageal reflux disease without esophagitis; Translations: [Gastro-esophageal reflux disease without esophagitis] Onset: 6 10-24-2022 Chronic Essential hypertension (20 sources) Benign essential hypertension; Translations: [Essential (primary) hypertension] Onset: 5 Chronic Fluid and electrolyte disorders (20 sources) Hyperkalemia; Translations: [Acidosis] Onset: 2 Resolved: 2 Episodic Genitourinary symptoms and ill-defined conditions (20 sources) Proteinuria, unspecified; Translations: [Other microscopic hematuria] Onset: 0 Resolved: 4 Episodic Hyperplasia of prostate (20 sources) Large [...] 8 10-24-2022 Chronic Nephritis; nephrosis; renal sclerosis (18 sources) Nephrotic syndrome; Translations: [Nephrotic syndrome with [...] Onset: 3 Episodic Other aftercare (3 sources) care home (current) use of aspirin; Translations: [[facility] CURRENT USE OF ASPIRIN] Onset: 3 Episodic [...] 3 Chronic Other and ill-defined heart disease (16 sources) Cardiomegaly; Translations: [Cardiomegaly] Onset: 9 10-24-2022 [...] hyperparathyroidism; Translations: [Secondary hyperparathyroidism of renal origin] 06-09-2023 Chronic Other diseases of kidney and ureters (20 sources) Secondary hyperparathyroidism of renal origin; Translations: [Secondary hyperparathyroidism (of renal origin)] Onset: 2 Resolved: 2 Chronic Other ear and sense organ disorders (2 sources) Tinnitus, bilateral; Translations: [Tinnitus, bilateral] Onset: 5 Episodic Other inflammatory condition of skin (20 sources) Rosacea; Translations: [Rosacea, unspecified] Onset: 6 10-24-2022 Chronic Other injuries and conditions due to external causes (1 source) Injury of right ankle; Translations: [Unspecified injury of right ankle, initial encounter] 05-16-2023 Episodic Other male genital disorders (1 source) Impotence Chronic Other male genital disorders (16 sources) Erectile dysfunction co-occurrent and due to arterial insufficiency; Translations: [Erectile dysfunction due to arterial insufficiency] Onset: 3 10-24-2022 Chronic Other male genital disorders (16 sources) Secondary erectile dysfunction; Translations: [Male erectile dysfunction, unspecified] Onset: 0 10-24-2022 Chronic Other nervous system disorders (1 source) Disease of spinal cord, unspecified; Translations: [Disease of spinal cord, unspecified] Onset: 3 Chronic Other non-traumatic joint disorders (1 source) Swollen ankle region; Translations: [Effusion, right ankle] 05-06-2023 Episodic Other nutritional; endocrine; and metabolic disorders (20 sources) Hypomagnesemia; Translations: [Hypomagnesemia] 06-09-2023 Chronic Other nutritional; endocrine; and metabolic disorders (20 sources) Hypomagnesemia; Translations: [Disorders of magnesium metabolism] Onset: 3 Chronic Other upper respiratory disease (16 sources) Allergic rhinitis; Translations: [Allergic rhinitis, unspecified] Onset: 0 10-24-2022 Chronic Residual codes; unclassified (20 sources) Obstructive sleep apnea syndrome; Translations: [Obstructive sleep apnea (adult) (pediatric)] Chronic Residual codes; unclassified (2 sources) Other specified postprocedural states Episodic Screening and history of mental health and substance abuse codes (20 sources) Stopped smoking; Translations: [Personal history of nicotine dependence] Onset: 9 Resolved: 3 04-23-2023 Episodic Spondylosis; intervertebral disc disorders; other back problems (20 sources) Disorder of joint of spine; Translations: [Other spondylosis with radiculopathy, lumbar region] Onset: 8 Resolved: 4 Chronic Unclassified (2 sources) Rectum finding Onset: 0 Unclassified (3 sources) CONTACT W/AND (SUSP) EXPOS COVID-19; Translations: [CONTACT W/AND (SUSP) EXPOS COVID-19] Onset: 2 Unclassified (1 source) COUGH, UNSPECIFIED; Translations: [COUGH, UNSPECIFIED] Onset: 2 Past or Other Problems Problem Classification Problem Date Documented Date Episodic/Chronic Acquired foot deformities (3 sources) Right foot drop; Translations: [Foot drop, right foot] Onset: 05-30-2022 Episodic Acute myocardial infarction (20 sources) Acute non-ST segment elevation myocardial infarction; Translations: [Non-ST elevation (NSTEMI) myocardial infarction] Onset: 01-17-2018 Resolved: 01-17-2023 01-17-2023 Chronic Acute posthemorrhagic anemia (18 sources) Acute posthemorrhagic anemia; Translations: [Acute posthemorrhagic anemia] Onset: 07-25-2022 Resolved: 05-10-2023 Episodic Calculus of urinary tract (20 sources) Kidney stone; Translations: [Calculus of kidney] Onset: 01-18-2021 07-19-2023 Episodic Chronic kidney disease (17 sources) Chronic kidney disease; Translations: [Chronic kidney disease, stage 3b] Onset: 08-14-2021 Resolved: 12-14-2021 Coronary atherosclerosis and other heart disease (20 sources) Stented coronary artery; Translations: [Presence of coronary angioplasty implant and graft] Onset: 01-12-2022 10-24-2022 Episodic Mood disorders (13 sources) Mood disorders Onset: 07-18-2023 07-18-2023 Other acquired deformities (16 sources) Acquired spondylolisthesis; Translations: [Spondylolisthesis, site unspecified] Onset: 01-15-2019 10-24-2022 Episodic Other aftercare (18 sources) Polypharmacy ; Translations: [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] Onset: 10-18-2020 05-10-2023 Episodic Other bone disease and musculoskeletal deformities (1 source) Other specified disorders of bone density and structure, other site; Translations: [Other specified disorders of bone density and structure, other site] Onset: 05-30-2022 Episodic Other connective tissue disease (16 sources) Neurogenic claudication; Translations: [Other symptoms and signs involving the nervous system] Onset: 01-15-2019 Resolved: 07-26-2023 10-24-2022 Episodic Other ear and sense organ disorders (16 sources) Bilateral tinnitus; Translations: [Tinnitus, bilateral] Onset: [...] Onset: 12-18-2018 Resolved: 01-14-2023 01-14-2023 Chronic Other nutritional; endocrine; and metabolic disorders (19 sources) Body mass index 25-29 - overweight; Translations: [Overweight] Onset: 04-23-2023 04-23-2023 Episodic Other screening for suspected conditions (not [...] unspecified; Translations: [PAIN UNSPECIFIED] Onset: 12-28-2021 Episodic Spondylosis; intervertebral disc disorders; other back problems (20 sources) Spinal stenosis; Translations: [Spinal stenosis, site unspecified] Onset: 01-15-2019 Episodic Unclassified (1 source) CONTACT W/AND (SUSP) EXPOS COVID-19; Translations: [CONTACT W/AND (SUSP) EXPOS COVID-19] Onset: 12-27-2021 Results Test Name Value Interpretation Reference Range Facility 36on 05-20-2024 36 Spoke with today and she said his BP was elevated (around 140 systolic) at sprinkler f[employer] office recently. She said when he checks it at home it's usually good. I advised her to continue to track his BP and let us know if it's consistently over 130 systolic. She verbalized understanding. Normal [facility] 36on 05-19-2024 36 Regarding echo result from 05/11/2024: MD Danelle Lovett MA Please tell him that the echo was okay. If the blood pressure is controlled I will see him in 1 year. Tried to contact patient but there is no VM set up. Unable to LM. Will try again. Normal [facility] C. DIFFICILE PCRon C. DIFFICILE PCR Negative [facility] Telephoneon 05-19-2024 Telephone [phone] Omer Santos 1950 M Date Provider Department Center 05/19/2024 [facility] Family History Problem Relation Age of Onset Coronary artery disease Father Other Father Heart attack Father Coronary artery disease Brother Heart attack Brother Other Brother Heart attack Paternal Grandfather Family Status - Relation Status Age at Father Brother Paternal Grandfather Normal [facility] Erythrocyte distribution wid th Auto (RBC) [Ratio]on 05-15-2024 Erythrocyte distribution width (RBC) [Ratio] Erythrocyte distribution width [Ratio] by Automated count 11.0-15.0 [facility] Estimated glomerular filtrat ion rate (GFR) non- Americanon 05-15-2024 GFR/1.73 sq M.predicted among non-blacks MDRD (S/P/Bld) [Vol rate/Area] Estimated glomerular filtration rate (GFR) non- Low >=60 mL/min/1.73m 2 [facility] CBC WITH PLATELET NO DI FFERENTIALon 05-15-2024 Erythrocyte distribution width (RBC) [Ratio] 13.2 % 11.0 - 15.0 % [facility] Hematocrit (Bld) [Volume fraction] 26.9 % Low 42.0 - 54.0 % [facility] Hemoglobin (Bld) [Mass/Vol] 8.8 g/dL Low 14.0 - 18.0 g/dL [facility] Interpretation and review of laboratory results Abnormal [facility] MCH (RBC) [Entitic mass] 30.8 pg 25.9 - 34.0 pg [facility] MCHC (RBC) [Mass/Vol] 32.7 g/dL 29.9 - 35.2 g/dL [facility] MCV (RBC) [Entitic vol] 94.1 fL High 80.0 - 94.0 fL [facility] Platelet mean volume (Bld) [Entitic vol] 8.6 fL Low 9.5 - 13.5 fL [facility] TBH PLT 155 [facility] RBC 2.86 Low [facility] WBC 6.1 [facility] Hematocrit Auto (Bld) [Volum e fraction]on 05-15-2024 Hematocrit (Bld) [Volume fraction] Hematocrit [Volume Fraction] of Blood by Automated count Low 42.0-54.0 [facility] Hemoglobin [Mass/volume] in Bloodon 05-15-2024 Hemoglobin (Bld) [Mass/Vol] Hemoglobin [Mass/volume] in Blood Low 14.0-18.0 [facility] Laboratory - Chemistry and C hemistry - challengeon 05-15-2024 Albumin [Mass/Vol] 3.5 g/dL 3.4-5.0 [facility] Calcium [Mass/Vol] 8.2 mg/dL Low 8.5-10.1 [facility] Chloride [Moles/Vol] 109 mmol/L High 98-107 [facility] CO2 [Moles/Vol] 26.3 mmol/L 21.0-32.0 [facility] Creatinine [Mass/Vol] 3.73 mg/dL High 0.70-1.[address] [facility] GFR/1.73 sq M.predicted MDRD (S/P/Bld) [Vol rate/Area] 19 mL/min/{1.73_m2} Low >=60 mL/min/1.73m 2 [facility] Glucose [Mass/Vol] 72 mg/dL Low 74-106 [facility] Potassium [Moles/Vol] 5.5 mmol/L High 3.5-5.[address] [facility] Sodium [Moles/Vol] 144 mmol/L 136-145 [facility] Urea nitrogen [Mass/Vol] 64.0 mg/dL High 7.0-18.0 [facility] Urea nitrogen/Creatinine [Mass ratio] 17.2 mg/mg [facility] Leukocytes [#/volume] correc roosevelt for nucleated erythrocytes in Blood by Automated counon 05-15-2024 WBC corrected for nucl RBC Auto (Bld) [#/Vol] Leukocytes [#/volume] corrected for nucleated erythrocytes in Blood by Automated coun 4.0-11.0 [facility] MCH Auto (RBC) [Entitic mass ]on 05-15-2024 MCH (RBC) [Entitic mass] MCH [Entitic mass] by Automated count 25.9-34.0 [facility] MCHC Auto (RBC) [Mass/Vol]on 05-15-2024 MCHC (RBC) [Mass/Vol] MCHC [Mass/volume] by Automated count 29.9-35.2 [facility] MCV Auto (RBC) [Entitic vol] on 05-15-2024 MCV (RBC) [Entitic vol] MCV [Entitic volume] by Automated count High 80.0-94.0 [facility] No Panel Informationon 05-15 Phosphorus Level 5.2 mg/dL High 2.6-4.7 [facility] Platelet mean volume Auto (B ld) [Entitic vol]on 05-15-2024 Platelet mean volume (Bld) [Entitic vol] Platelet mean volume [Entitic volume] in Blood by Automated count Low 9.5-13.5 [facility] Platelets Auto (Bld) [#/Vol] on 05-15-2024 Platelets (Bld) [#/Vol] Platelets [#/volume] in Blood by Automated count 150-450 [facility] RBC Auto (Bld) [#/Vol]on RBC (Bld) [#/Vol] Erythrocytes [#/volume] in Blood by Automated count Low 4.70-6.10 [facility] Serum or plasma anion gap de terminationon 05-15-2024 Anion gap [Moles/Vol] Serum or plasma anion gap determination [facility] CA ECHO DOPPLER COMPLETEon 0 05-11-2024 [place] [address] Cardiology Report Signed Patient: OMER SANTOS MR#: [id number] : 1950 Acct:[id number] Age/Sex: 73 / M ADM Date: 05/11/24 Loc: CARD Attending Dr: VADIM VERONICA Ordering Physician: VADIM VERONICA Date of Service: 05/11/24 Procedure(s): CA echo doppler complete Accession Number(s): [id number] cc: RUBEN LUO GEORGE Patient Name: OMER SANTOS MR#: [id number] : 1950 Exam Date: 05/11/2024 Ordering Doctor: DR VADIM VERONICA M.D. ECHOCARDIOGRAM REPORT PROCEDURE: CA ECHO DOPPLER COMPLETE INDICATIONS: CAD eval asymptomatic, Presence of coronary artery graft COMPARISON: None. DESCRIPTION: COMPLETE ECHOCARDIOGRAM Real-time transthoracic echocardiography with 2D, M-mode, spectral and color flow Doppler performed. QUALITY: Technical quality was good. LEFT VENTRICLE: Normal chamber size. Mild to moderate concentric left ventricular hypertrophy. Global left ventricular systolic function is normal. LV EF: Estimated left ventricular ejection fraction is 65%. DIASTOLIC: Grade II diastolic dysfunction. ATRIAL SEPTUM: LEFT ATRIUM: Severe dilatation. RIGHT ATRIUM: Mild dilatation. RIGHT VENTRICLE: Normal chamber size. Normal right ventricular systolic function. TRICUSPID VALVE: Normal mobility and thickness. No stenosis with trivial regurgitation. Moderate pulmonary hypertension. RVSP 48 mmHg MITRAL VALVE: Normal mobility and thickness. No evidence of mitral valve stenosis. There is no mitral annular calcification. Trivial mitral regurgitation. AORTIC VALVE: Normal trileaflet appearance. No visible sclerosis. Normal leaflet mobility. No evidence of aortic valve stenosis. No aortic regurgitation. AORTIC ROOT: Normal diameter and appearance, measuring 3.4 cm. Normal size ascending aorta measuring 3.0 cm. PULMONIC VALVE: Normal thickness and mobility. No stenosis. No regurgitation. PERICARDIUM: No evidence of pericardial effusion. IVC: Collapses with inspirations. Dilated measuring 2.6 cm. PLEURA: CONCLUSION: 1. Mild to moderate concentric left ventricular hypertrophy with normal systolic function. LVEF is 65%. 2. Normal right ventricular size and systolic function. 3. Severe left atrial dilatation. 4. Grade II diastolic dysfunction. 5. No significant valvular dysfunction. 6. Moderate pulmonary hypertension. RVSP 48 mmHg. Adult Echocardiography Procedure Report Left Ventricle LVEDD (3.7 - 5.6 cm): 5.40 cm LVESD (2.2 - 4.0 cm): 3.72 cm LVIVS thickness (0.6 - 1.2 cm): 1.52 cm LVPW thickness (0.5 - 1.0 cm): 1.28 cm e': 0.08 m/s E - e': 14.26 LVOT Max Gradient: 4.55 mm[Hg] LVOT Area (cm2): 1.07 m/s Peak Velocity (LVOT): 1.07 m/s Mean Velocity (LVOT): 0.64 m/s LVOT Diameter 2.10 cm Left Ventricular Ejection Fraction: 65 % Left Atrium LA Volume Index (2D A2C): 74.85 ml/m2 Left Atrium Systolic Dimension: 5.07 cm Mitral Valve MV E to A Ratio: 1.35 Mitral Valve A-Wave Peak Velocity: 0.81 m/s Mitral Valve E-Wave Peak Velocity: 1.10 m/s Right Ventricle RV Internal Diastolic Dimension: 4.02 cm Aorta AO Root Diam: 3.44 cm Ascending Ao Diam: 3.00 cm Aortic Valve AoV Area (Peak Brian): 2.10 cm2, 2.10 cm2 AoV Area (VTI): 1.96 cm2, 1.96 cm2 Peak Velocity(Antegrade Flow): 1.75 m/s Peak Gradient(Antegrade Flow): 12.30 mm[Hg] Mean Velocity(Antegrade Flow): 1.25 m/s Mean Gradient(Antegrade Flow): 7.02 mm[Hg] Velocity Time Integral: 48.63 cm Tricuspid Valve Peak Velocity (Regurgitant Flow): 1.89 m/s, 3.16 m/s Pulmonic Valve Mean Gradient: 4.16 mm[Hg], 5.35 mm[Hg] Mean Velocity: 0.96 m/s, 1.10 m/s Peak Velocity: 1.49 m/s Peak Gradient: 8.28 mm[Hg], 9.39 mm[Hg] Right Atrium Right Atrium Systolic Pressure: 39.05 ml, 39.05 ml Dictated by: Vadim Veronica M.D. on 05/11 (more content not included)... [facility] Radiology, Radiologist, MD - 05/11/2024 [place] [address] Cardiology Report Signed Patient: OMER SANTOS MR#: [id number] : 1950 Acct:[id number] Age/Sex: 73 / M ADM Date: 05/11/24 Loc: CARD Attending Dr: VADIM VERONICA Ordering Physician: VADIM VERONICA Date of Service: 05/11/24 Procedure(s): CA echo doppler complete Accession Number(s): [id number] cc: RUBEN LUO GEORGE Patient Name: OMER SANTOS MR#: [id number] : 1950 Exam Date: 05/11/2024 Ordering Doctor: DR VADIM VERONICA M.D. ECHOCARDIOGRAM REPORT PROCEDURE: CA ECHO DOPPLER COMPLETE INDICATIONS: CAD eval asymptomatic, Presence of coronary artery graft COMPARISON: None. DESCRIPTION: COMPLETE ECHOCARDIOGRAM Real-time transthoracic echocardiography with 2D, M-mode, spectral and color flow Doppler performed. QUALITY: Technical quality was good. LEFT VENTRICLE: Normal chamber size. Mild to moderate concentric left ventricular hypertrophy. Global left ventricular systolic function is normal. LV EF: Estimated left ventricular ejection fraction is 65%. DIASTOLIC: Grade II diastolic dysfunction. ATRIAL SEPTUM: LEFT ATRIUM: Severe dilatation. RIGHT ATRIUM: Mild dilatation. RIGHT VENTRICLE: Normal chamber size. Normal right ventricular systolic function. TRICUSPID VALVE: Normal mobility and thickness. No stenosis with trivial regurgitation. Moderate pulmonary hypertension. RVSP 48 mmHg MITRAL VALVE: Normal mobility and thickness. No evidence of mitral valve stenosis. There is no mitral annular calcification. Trivial mitral regurgitation. AORTIC VALVE: Normal trileaflet appearance. No visible sclerosis. Normal leaflet mobility. No evidence of aortic valve stenosis. No aortic regurgitation. AORTIC ROOT: Normal diameter and appearance, measuring 3.4 cm. Normal size ascending aorta measuring 3.0 cm. PULMONIC VALVE: Normal thickness and mobility. No stenosis. No regurgitation. PERICARDIUM: No evidence of pericardial effusion. IVC: Collapses with inspirations. Dilated measuring 2.6 cm. PLEURA: CONCLUSION: 1. Mild to moderate concentric left ventricular hypertrophy with normal systolic function. LVEF is 65%. 2. Normal right ventricular size and systolic function. 3. Severe left atrial dilatation. 4. Grade II diastolic dysfunction. 5. No significant valvular dysfunction. 6. Moderate pulmonary hypertension. RVSP 48 mmHg. Adult Echocardiography Procedure Report Left Ventricle LVEDD (3.7 - 5.6 cm): 5.40 cm LVESD (2.2 - 4.0 cm): 3.72 cm LVIVS thickness (0.6 - 1.2 cm): 1.52 cm LVPW thickness (0.5 - 1.0 cm): 1.28 cm e': 0.08 m/s E - e': 14.26 LVOT Max Gradient: 4.55 mm[Hg] LVOT Area (cm2): 1.07 m/s Peak Velocity (LVOT): 1.07 m/s Mean Velocity (LVOT): 0.64 m/s LVOT Diameter 2.10 cm Left Ventricular Ejection Fraction: 65 % Left Atrium LA Volume Index (2D A2C): 74.85 ml/m2 Left Atrium Systolic Dimension: 5.07 cm Mitral Valve MV E to A Ratio: 1.35 Mitral Valve A-Wave Peak Velocity: 0.81 m/s Mitral Valve E-Wave Peak Velocity: 1.10 m/s Right Ventricle RV Internal Diastolic Dimension: 4.02 cm Aorta AO Root Diam: 3.44 cm Ascending Ao Diam: 3.00 cm Aortic Valve AoV Area (Peak Brian): 2.10 cm2, 2.10 cm2 AoV Area (VTI): 1.96 cm2, 1.96 cm2 Peak Velocity(Antegrade Flow): 1.75 m/s Peak Gradient(Antegrade Flow): 12.30 mm[Hg] Mean Velocity(Antegrade Flow): 1.25 m/s Mean Gradient(Antegrade Flow): 7.02 mm[Hg] Velocity Time Integral: 48.63 cm Tricuspid Valve Peak Velocity (Regurgitant Flow): 1.89 m/s, 3.16 m/s Pulmonic Valve Mean Gradient: 4.16 mm[Hg], 5.35 mm[Hg] Mean Velocity: 0.96 m/s, 1.10 m/s Peak Velocity: 1.49 m/s Peak Gradient: 8.28 mm[Hg], 9.39 mm[Hg] Right Atrium Right Atrium Systolic Pressure: 39.05 ml, 39.05 ml Dictated by: Vadim Veronica M.D. on 05/11/2024 at 15:37 Approved by: Vadim Veronica M.D. on 05/11/2024 at 15:42 Dictated By: VADIM VERONICA Signed By: 05/11/24 1544 DD/ 1542 TD/TT: Utility Pipe Layer: [facility] [employer] Radiology Study observation (narrative) [facility] [employer] CA ECHO DOPPLER COMPLETEOrde red By: Radiologist Radiology on 05-11-2024 [facility] [employer] Work Phone: MLR HEMOGLOBIN A1Con 025 Glucose [Mass/Vol] 100 mg/dL [facility] HbA1c (Bld) [Mass fraction] 5.1 % 4.5 - 6.2 % [facility] [employer] Comment on above: ADA RECOMMENDED LIMI T 4.0 - 6.0 ADA THERAPEUTIC TARGET < 7.0 ACTION SUGGESTED > 7.0 [facility] [employer] Office Visiton 05-07-2024 Follow-up visit [id number] Omer Santos 1950 M Date Provider Department Center 05/07/2024 VADIM SANTOS [place] [place] Family History Problem Relation Age of Onset Coronary artery disease Father Other Father Heart attack Father Coronary artery disease Brother Heart attack Brother Other Brother Heart attack Paternal Grandfather Family Status - Relation Status Age at Father Brother Paternal Grandfather Level of Service:21996 [place] OFFICE/OUTPATIENT ESTABLISHED MOD MDM 30 MIN Normal [facility] Erythrocyte distribution wid th Auto (RBC) [Ratio]on 04-30-2024 Erythrocyte distribution width (RBC) [Ratio] Erythrocyte distribution width [Ratio] by Automated count 11.0-15.0 [facility] CBC WITH PLATELET NO DI FFERENTIALon 04-30-2024 Erythrocyte distribution width (RBC) [Ratio] 13.4 % 11.0 - 15.0 % [facility] Hematocrit (Bld) [Volume fraction] 26.4 % Low 42.0 - 54.0 % [facility] Hemoglobin (Bld) [Mass/Vol] 8.7 g/dL Low 14.0 - 18.0 g/dL [facility] Interpretation and review of laboratory results Abnormal [facility] MCH (RBC) [Entitic mass] 31.1 pg 25.9 - 34.0 pg [facility] MCHC (RBC) [Mass/Vol] 33 g/dL 29.9 - 35.2 g/dL [facility] MCV (RBC) [Entitic vol] 94.3 fL High 80.0 - 94.0 fL [facility] Platelet mean volume (Bld) [Entitic vol] 8.6 fL Low 9.5 - 13.5 fL [facility] TBH PLT 161 [facility] RBC 2.8 Low [facility] WBC 6.8 [facility] Hematocrit Auto (Bld) [Volum e fraction]on 04-30-2024 Hematocrit (Bld) [Volume fraction] Hematocrit [Volume Fraction] of Blood by Automated count Low 42.0-54.0 [facility] Hemoglobin [Mass/volume] in Bloodon 04-30-2024 Hemoglobin (Bld) [Mass/Vol] Hemoglobin [Mass/volume] in Blood Low 14.0-18.0 [facility] Leukocytes [#/volume] correc roosevelt for nucleated erythrocytes in Blood by Automated counon 04-30-2024 WBC corrected for nucl RBC Auto (Bld) [#/Vol] Leukocytes [#/volume] corrected for nucleated erythrocytes in Blood by Automated coun 4.0-11.0 [facility] MCH Auto (RBC) [Entitic mass ]on 04-30-2024 MCH (RBC) [Entitic mass] MCH [Entitic mass] by Automated count 25.9-34.0 [facility] MCHC Auto (RBC) [Mass/Vol]on 04-30-2024 MCHC (RBC) [Mass/Vol] MCHC [Mass/volume] by Automated count 29.9-35.2 [facility] MCV Auto (RBC) [Entitic vol] on 04-30-2024 MCV (RBC) [Entitic vol] MCV [Entitic volume] by Automated count High 80.0-94.0 [facility] Platelet mean volume Auto (B ld) [Entitic vol]on 04-30-2024 Platelet mean volume (Bld) [Entitic vol] Platelet mean volume [Entitic volume] in Blood by Automated count Low 9.5-13.5 [facility] Platelets Auto (Bld) [#/Vol] on 04-30-2024 Platelets (Bld) [#/Vol] Platelets [#/volume] in Blood by Automated count 150-450 [facility] RBC Auto (Bld) [#/Vol]on RBC (Bld) [#/Vol] Erythrocytes [#/volume] in Blood by Automated count Low 4.70-6.10 [facility] Erythrocyte distribution wid th Auto (RBC) [Ratio]on 04-16-2024 Erythrocyte distribution width (RBC) [Ratio] Erythrocyte distribution width [Ratio] by Automated count 11.0-15.0 [facility] Estimated glomerular filtrat ion rate (GFR) non- Americanon 04-16-2024 GFR/1.73 sq M.predicted among non-blacks MDRD (S/P/Bld) [Vol rate/Area] Estimated glomerular filtration rate (GFR) non- Low >=60 mL/min/1.73m 2 [facility] CBC WITH PLATELET NO DI FFERENTIALon 04-16-2024 Erythrocyte distribution width (RBC) [Ratio] 13.1 % 11.0 - 15.0 % [facility] Hematocrit (Bld) [Volume fraction] 25.8 % Low 42.0 - 54.0 % [facility] Hemoglobin (Bld) [Mass/Vol] 8.4 g/dL Low 14.0 - 18.0 g/dL [facility] Interpretation and review of laboratory results Abnormal [facility] MCH (RBC) [Entitic mass] 30.2 pg 25.9 - 34.0 pg [facility] MCHC (RBC) [Mass/Vol] 32.6 g/dL 29.9 - 35.2 g/dL [facility] MCV (RBC) [Entitic vol] 92.8 fL 80.0 - 94.0 fL [facility] Platelet mean volume (Bld) [Entitic vol] 8.9 fL Low 9.5 - 13.5 fL [facility] TBH PLT 135 Low [facility] TBH RBC 2.78 Low [facility] TBH WBC 6.4 [facility] Hematocrit Auto (Bld) [Volum e fraction]on 04-16-2024 Hematocrit (Bld) [Volume fraction] Hematocrit [Volume Fraction] of Blood by Automated count Low 42.0-54.0 [facility] Hemoglobin [Mass/volume] in Bloodon 04-16-2024 Hemoglobin (Bld) [Mass/Vol] Hemoglobin [Mass/volume] in Blood Low 14.0-18.0 [facility] Iron binding capacity [Mass/ volume] in Serum or Plasmaon 04-16-2024 Iron binding capacity [Mass/Vol] Iron binding capacity [Mass/volume] in Serum or Plasma Low 250.0-450.0 [facility] Iron saturation [Mass Fracti on] in Serum or Plasmaon 04-16-2024 Iron saturation [Mass fraction] Iron saturation [Mass Fraction] in Serum or Plasma [facility] Laboratory - Chemistry and C hemistry - challengeon 04-16-2024 Albumin [Mass/Vol] 3.3 g/dL Low 3.4-5.0 [facility] Calcium [Mass/Vol] 8.1 mg/dL Low 8.5-10.1 [facility] Chloride [Moles/Vol] 108 mmol/L High 98-107 [facility] CO2 [Moles/Vol] 25.4 mmol/L 21.0-32.0 [facility] Creatinine [Mass/Vol] 3.49 mg/dL High 0.70-1.[address] [facility] Ferritin [Mass/Vol] 145.0 ng/mL 26.0-388.0 [facility] GFR/1.73 sq M.predicted MDRD (S/P/Bld) [Vol rate/Area] 21 mL/min/{1.73_m2} Low >=60 mL/min/1.73m 2 [facility] Glucose [Mass/Vol] 62 mg/dL Low 74-106 [facility] Iron [Mass/Vol] 54.0 ug/dL Low 65.0-175.0 [facility] Magnesium [Mass/Vol] 2.0 mg/dL 1.8-2.4 [facility] Potassium [Moles/Vol] 5.1 mmol/L 3.5-5.[address] [facility] Sodium [Moles/Vol] 142 mmol/L 136-145 [facility] Urate [Mass/Vol] 6.2 mg/dL 3.5-7.2 [facility] Urea nitrogen [Mass/Vol] 59.0 mg/dL High 7.0-18.0 [facility] Urea nitrogen/Creatinine [Mass ratio] 16.9 mg/mg [facility] Bilirubin Ql (U) Negative NEGATIVE [facility] Glucose (U) [Mass/Vol] Negative NEGATIVE [facility] Ketones Ql (U) Negative NEGATIVE [facility] pH (U) 5.5 [pH] 5.0-9.0 [facility] Specific gravity (U) [Rel density] 1.020 1.005-1.025 [facility] Urobilinogen Qn (U) 0.2 {Stevie'U}/dL 0.2-1.0 [facility] Laboratory - Specimen inform ationon 04-16-2024 Appearance (U) CLEAR CLEAR [facility] Color (U) LT. YELLOW YELLOW [facility] Laboratory - Urinalysison Leukocyte esterase Test strip Ql (U) Negative NEGATIVE [facility] Mucus Ql (Urine sed) NONE SEEN NONE SEEN [facility] Nitrite Ql (U) Negative NEGATIVE [facility] Protein (U) [Mass/Vol] 224.0 mg/dL High <=11.9 [facility] Protein Ql (U) >=300 mg/dL Abnormal NEG/TRACE [facility] Leukocytes [#/volume] correc roosevelt for nucleated erythrocytes in Blood by Automated counon 04-16-2024 WBC corrected for nucl RBC Auto (Bld) [#/Vol] Leukocytes [#/volume] corrected for nucleated erythrocytes in Blood by Automated coun 4.0-11.0 [facility] MCH Auto (RBC) [Entitic mass ]on 04-16-2024 MCH (RBC) [Entitic mass] MCH [Entitic mass] by Automated count 25.9-34.0 [facility] MCHC Auto (RBC) [Mass/Vol]on 04-16-2024 MCHC (RBC) [Mass/Vol] MCHC [Mass/volume] by Automated count 29.9-35.2 [facility] MCV Auto (RBC) [Entitic vol] on 04-16-2024 MCV (RBC) [Entitic vol] MCV [Entitic volume] by Automated count 80.0-94.0 [facility] No Panel Informationon 04-16 25-Hydroxy Vitamin D Total 33.0 ng/mL [facility] Comment on above: <20 ng/mL Vit D defi cient20-<30 ng/mL Vit D dklwebosufvw12-807 ng/mL Vit D sufficient>100 ng/mL Potential Toxicity Parathyroid Hormone (Intact) 150 pg/mL Abnormal 15-65 [facility] Comment on above: Performed at: [address] [id number] Director: Venu Hector PhD, Phone: [phone] Phosphorus Level 4.4 mg/dL 2.6-4.7 [facility] Urine Bacteria TRACE #/HPF Abnormal NONE SEEN [facility] Urine Occult Blood SMALL Abnormal NEGATIVE [facility] Urine Other Casts NONE SEEN #/LPF NONE [facility]EN [facility] Urine Other Crystals None Seen #/HPF None Seen [facility] Urine Random Creatinine 55.36 mg/dL 20.00-300.00 [facility] Urine RBC 0-2 #/HPF 0-2 [facility] Urine Squamous Epithelial Cells RARE #/LPF NONE/RARE [facility] Urine WBC 0-2 #/HPF Abnormal NONE SEEN [facility] Platelet mean volume Auto (B ld) [Entitic vol]on 04-16-2024 Platelet mean volume (Bld) [Entitic vol] Platelet mean volume [Entitic volume] in Blood by Automated count Low 9.5-13.5 [facility] Platelets Auto (Bld) [#/Vol] on 04-16-2024 Platelets (Bld) [#/Vol] Platelets [#/volume] in Blood by Automated count Low 150-450 [facility] RBC Auto (Bld) [#/Vol]on RBC (Bld) [#/Vol] Erythrocytes [#/volume] in Blood by Automated count Low 4.70-6.10 [facility] Serum or plasma anion gap de terminationon 04-16-2024 Anion gap [Moles/Vol] Serum or plasma anion gap determination [facility] Urine protein/creatinine rat ioon 04-16-2024 Protein/Creatinine (U) [Ratio] Urine protein/creatinine ratio [facility] 36on 03-30-2024 36 Spoke with patient's . Gregory sent in. I asked her to continue to keep track of BP's and let me know in a few weeks how it's going. She verbalized understanding. Normal [facility] 36on 03-26-2024 36 Hi Tameka. You saw this casimiro 3 months ago so feel free to forward to someone else if you prefer not to address. THANKS! Patient's called with concerns of elevated BP's for patient lately. Running in the 160's systolic. HR 55-62. I confirmed he is taking the following: Amlodipine 10mg daily Furosemide 10mg daily Toprol XL 50mg daily Nephrology recently started him on sodium bicarbonate. Did you want to make any changes? Please advise. Thank you! 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 PROCEDURE: Color-flow duplex scanning is used to interrogate the extracranial carotid arterial system, as well as both vertebral arteries. Both carotid bifurcations show mild to moderate heterogeneous plaque formation. The proximal right internal carotid artery shows a highest peak systolic velocity of 114 cm/s with an end-diastolic velocity of 22.5 cm/s . The mid internal carotid artery measures 117 cm/s peak systolic and 20.8 cm/s end diastolic. The distal segment measures 107 cm/s peak systolic with an end diastolic velocity of 26.9 cm/s . The velocities of the right common carotid artery are 80.1 cm/s peak systolic and 15.5 cm/s end-diastolic proximally and 127 cm/s peak systolic and 32.9 cm/s end diastolic distally. The peak systolic velocity ratio of the internal to the common carotid artery is 0.92. The right external carotid artery measures 82.3 cm/s peak systolic. The right vertebral artery is patent at 64.6 cm/s with antegrade flow. The proximal left internal carotid artery shows a highest peak systolic velocity of 329 cm/s with an end-diastolic velocity of 59.3 cm/s . The mid internal carotid artery measures 192 cm/s peak systolic and 53.2 cm/s end diastolic. The distal segment measures 107 cm/s peak systolic with an end diastolic velocity of 26.3 cm/s . The velocities of the left common carotid artery are 105 cm/s peak systolic and 21.1 cm/s end-diastolic proximally and 161 cm/s peak systolic and 48.3 cm/s end diastolic distally. The peak systolic velocity ratio of the internal to the common carotid artery is 2.04 . The left external carotid artery measures 326 cm/s peak systolic. The left vertebral artery is patent at 151 cm/s with antegrade flow. US/US carotid doppler BI IMPRESSION: MILD TO MODERATE PLAQUE FORMATION IS NOTED BILATERAL EXTRACRANIAL CAROTID ARTERIES. MODERATE STENOSIS OF 50-69% WAS FOUND IN THE LEFT INTERNAL CAROTID ARTERY. The right carotid system had no elevated velocities. Impression dictated by: Ney Roman MD03/25/2024 4:34 PM D[facility]ation [facility] Tech: Mary Carmen Cedeño Transcribed By: SENDY 03/25/24 163 Dictated By: Ney Roman MD 03/25/24 1633 Signed By: 03/25/24 163 Normal [facility] ALL RENAL FUNCTION PANELon 1 05-14-2023 Albumin [Mass/Vol] 3.5 g/dL 3.4 - 5.0 g/dL [facility] Anion gap [Moles/Vol] 13.7 mmol/L [facility] Calcium [Mass/Vol] 8.4 mg/dL Low 8.5 - 10. 1 mg/dL [facility] Chloride [Moles/Vol] 108 mmol/L High 98 - 10 7 mmol/L [facility] CO2 [Moles/Vol] 25.4 mmol/L 21.0 - 32.0 mmol/L [facility] Creatinine [Mass/Vol] 3.47 mg/dL High 0.70 - 1.30 mg/dL [facility] GFR/1.73 sq M.predicted CKD-EPI (S/P/Bld) [Vol rate/Area] 21 Low >=60 mL/min/1.73m 2 [facility] Glucose [Mass/Vol] 80 mg/dL 74 - 106 mg/dL [facility] Interpretation and review of laboratory results Abnormal [facility] Phosphate [Mass/Vol] 4.1 mg/dL 2.6 - 4 .7 mg/dL [facility] Potassium [Moles/Vol] 5.1 mmol/L 3.5 - 5.1 mmol/L [facility] Sodium [Moles/Vol] 142 mmol/L 136 - 145 mmol/L [facility] TBH EGFR-NON AF [place] 17 Low >=60 mL/min/1.73m 2 [facility] Urea nitrogen [Mass/Vol] 57 mg/dL High 7.0 - 18.0 mg/dL [facility] Urea nitrogen/Creatinine [Mass ratio] 16.4 mg/mg [facility] Erythrocyte distribution wid th Auto (RBC) [Ratio]on 03-13-2024 Erythrocyte distribution width (RBC) [Ratio] Erythrocyte distribution width [Ratio] by Automated count 11.0-15.0 [facility] Estimated glomerular filtrat ion rate (GFR) non- Americanon 03-13-2024 GFR/1.73 sq M.predicted among non-blacks MDRD (S/P/Bld) [Vol rate/Area] Estimated glomerular filtration rate (GFR) non- Low >=60 mL/min/1.73m 2 [facility] CBC WITH PLATELET NO DI FFERENTIALon 03-13-2024 Erythrocyte distribution width (RBC) [Ratio] 13.1 % 11.0 - 15.0 % [facility] Hematocrit (Bld) [Volume fraction] 31.9 % Low 42.0 - 54.0 % [facility] Hemoglobin (Bld) [Mass/Vol] 10.6 g/dL Low 14.0 - 18.0 g/dL [facility] Interpretation and review of laboratory results Abnormal [facility] MCH (RBC) [Entitic mass] 30.2 pg 25.9 - 34.0 pg [facility] MCHC (RBC) [Mass/Vol] 33.2 g/dL 29.9 - 35.2 g/dL [facility] MCV (RBC) [Entitic vol] 90.9 fL 80.0 - 94.0 fL [facility] Platelet mean volume (Bld) [Entitic vol] 8.8 fL Low 9.5 - 13.5 fL [facility] TBH PLT 202 [facility] TB RBC 3.51 Low [facility] TB WBC 8.2 [facility] Hematocrit Auto (Bld) [Volum e fraction]on 03-13-2024 Hematocrit (Bld) [Volume fraction] Hematocrit [Volume Fraction] of Blood by Automated count Low 42.0-54.0 [facility] Hemoglobin [Mass/volume] in Bloodon 03-13-2024 Hemoglobin (Bld) [Mass/Vol] Hemoglobin [Mass/volume] in Blood Low 14.0-18.0 [facility] Laboratory - Chemistry and C hemistry - challengeon 03-13-2024 Albumin [Mass/Vol] 3.5 g/dL 3.4-5.0 [facility] Calcium [Mass/Vol] 8.4 mg/dL Low 8.5-10.1 [facility] Chloride [Moles/Vol] 108 mmol/L High 98-107 [facility] CO2 [Moles/Vol] 25.4 mmol/L 21.0-32.0 [facility] Creatinine [Mass/Vol] 3.47 mg/dL High 0.70-1.[address] [facility] GFR/1.73 sq M.predicted MDRD (S/P/Bld) [Vol rate/Area] 21 mL/min/{1.73_m2} Low >=60 mL/min/1.73m 2 [facility] Glucose [Mass/Vol] 80 mg/dL 74-106 [facility] Potassium [Moles/Vol] 5.1 mmol/L 3.5-5.[address] [facility] Sodium [Moles/Vol] 142 mmol/L 136-145 [facility] Urea nitrogen [Mass/Vol] 57.0 mg/dL High 7.0-18.0 [facility] Urea nitrogen/Creatinine [Mass ratio] 16.4 mg/mg [facility] Leukocytes [#/volume] correc roosevelt for nucleated erythrocytes in Blood by Automated counon 03-13-2024 WBC corrected for nucl RBC Auto (Bld) [#/Vol] Leukocytes [#/volume] corrected for nucleated erythrocytes in Blood by Automated coun 4.0-11.0 [facility] MCH Auto (RBC) [Entitic mass ]on 03-13-2024 MCH (RBC) [Entitic mass] MCH [Entitic mass] by Automated count 25.9-34.0 [facility] MCHC Auto (RBC) [Mass/Vol]on 03-13-2024 MCHC (RBC) [Mass/Vol] MCHC [Mass/volume] by Automated count 29.9-35.2 [facility] MCV Auto (RBC) [Entitic vol] on 03-13-2024 MCV (RBC) [Entitic vol] MCV [Entitic volume] by Automated count 80.0-94.0 [facility] No Panel Informationon 03-13 Phosphorus Level 4.1 mg/dL 2.6-4.7 [facility] Platelet mean volume Auto (B ld) [Entitic vol]on 03-13-2024 Platelet mean volume (Bld) [Entitic vol] Platelet mean volume [Entitic volume] in Blood by Automated count Low 9.5-13.5 [facility] Platelets Auto (Bld) [#/Vol] on 03-13-2024 Platelets (Bld) [#/Vol] Platelets [#/volume] in Blood by Automated count 150-450 [facility] RBC Auto (Bld) [#/Vol]on RBC (Bld) [#/Vol] Erythrocytes [#/volume] in Blood by Automated count Low 4.70-6.10 [facility] Serum or plasma anion gap de terminationon 03-13-2024 Anion gap [Moles/Vol] Serum or plasma anion gap determination [facility] ALL MAGNESIUMon 02-21-2024 Magnesium [Mass/Vol] 1.9 mg/dL 1.8 - 2 .4 mg/dL [facility] ALL RENAL FUNCTION PANELon 1 04-22-2023 Albumin [Mass/Vol] 3.6 g/dL 3.4 - 5.0 g/dL [facility] Anion gap [Moles/Vol] 16.8 mmol/L [facility] Calcium [Mass/Vol] 8.3 mg/dL Low 8.5 - 10. 1 mg/dL [facility] Chloride [Moles/Vol] 109 mmol/L High 98 - 10 7 mmol/L [facility] CO2 [Moles/Vol] 25.1 mmol/L 21.0 - 32.0 mmol/L [facility] Creatinine [Mass/Vol] 3.32 mg/dL High 0.70 - 1.30 mg/dL [facility] GFR/1.73 sq M.predicted CKD-EPI (S/P/Bld) [Vol rate/Area] 22 Low >=60 mL/min/1.73m 2 [facility] Glucose [Mass/Vol] 64 mg/dL Low 74 - 106 mg/dL [facility] Phosphate [Mass/Vol] 4.3 mg/dL 2.6 - 4 .7 mg/dL [facility] Potassium [Moles/Vol] 4.9 mmol/L 3.5 - 5.1 mmol/L [facility] Sodium [Moles/Vol] 146 mmol/L High 136 - 145 mmol/L [facility] TBH EGFR-NON AF [place] 18 Low >=60 mL/min/1.73m 2 [facility] Urea nitrogen [Mass/Vol] 60 mg/dL High 7.0 - 18.0 mg/dL [facility] Urea nitrogen/Creatinine [Mass ratio] 18.1 mg/mg [facility] ALL URIC ACIDon 02-21-2024 Urate [Mass/Vol] 6.4 mg/dL 3.5 - 7.2 mg/dL [facility] FERRITINon 02-21-2024 Ferritin [Mass/Vol] 155 ng/mL 26.0 - 3 88.0 ng/mL [facility] Erythrocyte distribution wid th Auto (RBC) [Ratio]on 02-21-2024 Erythrocyte distribution width (RBC) [Ratio] Erythrocyte distribution width [Ratio] by Automated count .-. [facility] Estimated glomerular filtrat ion rate (GFR) non- Americanon 02-21-2024 GFR/1.73 sq M.predicted among non-blacks MDRD (S/P/Bld) [Vol rate/Area] Estimated glomerular filtration rate (GFR) non- Low >=60 mL/min/1.73m 2 [facility] CBC WITH PLATELET NO DI FFERENTIALon 02-21-2024 Erythrocyte distribution width (RBC) [Ratio] 13.2 % 11.0 - 15.0 % [facility] Hematocrit (Bld) [Volume fraction] 30 % Low 42.0 - 54.0 % [facility] Hemoglobin (Bld) [Mass/Vol] 10.2 g/dL Low 14.0 - 18.0 g/dL [facility] MCH (RBC) [Entitic mass] 30.9 pg 25.9 - 34.0 pg [facility] MCHC (RBC) [Mass/Vol] 34 g/dL 29.9 - 35.2 g/dL [facility] MCV (RBC) [Entitic vol] 90.9 fL 80.0 - 94.0 fL [facility] Platelet mean volume (Bld) [Entitic vol] 8.9 fL Low 9.5 - 13.5 fL [facility] TBH PLT 175 [facility] RBC 3.3 Low [facility] WBC 8 [facility] HMHP URINALYSIS, WITH MICROS COPICon 02-21-2024 BACTERIA URINE TRACE Abnormal NONE SEEN #/HPF [facility] BILIRUBIN URINE Negative NEGATIVE [facility] BLOOD URINE SMALL Abnormal NEGATIVE [facility] CAST SEEN? NONE SEEN NONE SEEN #/LPF [facility] Clarity (U) CLEAR CLEAR [facility] CRYSTALS SEEN? None Seen None Seen #/HPF [facility] GLUCOSE URINE UA Negative NEGATIVE mg/dL [facility] MUCUS URINE NONE SEEN NONE [facility]EN [facility] NITRITE [facility]INE Negative NEGATIVE [facility] care PROTEIN URINE >=300 Abnormal NEG/TRACE mg/dL [facility] SPECIFIC GRAVITY URINE 1.020 1.005 - 1.025 [facility] SQUAMOUS EPITHELIAL CELL URINE NONE SEEN NONE/RARE #/LPF [facility] TBH RBC 0-2 [facility] e TBH WBC NONE SEEN NONE SEEN #/HPF [facility] UROBILINOGEN URINE 0.2 EU/dL 0.2 - 1.0 EU/dL [facility] Hematocrit Auto (Bld) [Volum e fraction]on 02-21-2024 Hematocrit (Bld) [Volume fraction] Hematocrit [Volume Fraction] of Blood by Automated count Low 42.0-54.0 [facility] Hemoglobin [Mass/volume] in Bloodon 02-21-2024 Hemoglobin (Bld) [Mass/Vol] Hemoglobin [Mass/volume] in Blood Low 14.0-18.0 [facility] Iron binding capacity [Mass/ volume] in Serum or Plasmaon 02-21-2024 Iron binding capacity [Mass/Vol] Iron binding capacity [Mass/volume] in Serum or Plasma Low 250.0-450.0 [facility] Iron saturation [Mass Fracti on] in Serum or Plasmaon 02-21-2024 Iron saturation [Mass fraction] Iron saturation [Mass Fraction] in Serum or Plasma [facility] Laboratory - Chemistry and C hemistry - challengeon 02-21-2024 Albumin [Mass/Vol] 3.6 g/dL 3.4-5.0 [facility] Calcium [Mass/Vol] 8.3 mg/dL Low 8.5-10.1 [facility] Chloride [Moles/Vol] 109 mmol/L High 98-107 [facility] CO2 [Moles/Vol] 25.1 mmol/L 21.0-32.0 [facility] Creatinine [Mass/Vol] 3.32 mg/dL High 0.70-1.[address] [facility] Ferritin [Mass/Vol] 155.0 ng/mL 26.0-388.0 [facility] GFR/1.73 sq M.predicted MDRD (S/P/Bld) [Vol rate/Area] 22 mL/min/{1.73_m2} Low >=60 mL/min/1.73m 2 [facility] Glucose [Mass/Vol] 64 mg/dL Low 74-106 [facility] Iron [Mass/Vol] 62.0 ug/dL Low 65.0-175.0 [facility] Magnesium [Mass/Vol] 1.9 mg/dL 1.8-2.4 [facility] Potassium [Moles/Vol] 4.9 mmol/L 3.5-5.[address] [facility] Sodium [Moles/Vol] 146 mmol/L High 136-145 [facility] Urate [Mass/Vol] 6.4 mg/dL 3.5-7.2 [facility] Urea nitrogen [Mass/Vol] 60.0 mg/dL High 7.0-18.0 [facility] Urea nitrogen/Creatinine [Mass ratio] 18.1 mg/mg [facility] Bilirubin Ql (U) Negative NEGATIVE [facility] Glucose (U) [Mass/Vol] Negative NEGATIVE [facility] Ketones Ql (U) Negative NEGATIVE [facility] pH (U) 6.0 [pH] 5.0-9.0 [facility] Specific gravity (U) [Rel density] 1.020 1.005-1.025 [facility] Urobilinogen Qn (U) 0.2 {Stevie'U}/dL 0.2-1.0 [facility] Laboratory - Specimen inform ationon 02-21-2024 Appearance (U) CLEAR CLEAR [facility] Color (U) LT. YELLOW YELLOW [facility] - Urinalysison Leukocyte esterase Test strip Ql (U) Negative NEGATIVE [facility] Mucus Ql (Urine sed) NONE SEEN NONE SEEN [facility] Nitrite Ql (U) Negative NEGATIVE [facility] Protein (U) [Mass/Vol] 226.5 mg/dL High <=11.9 F [facility] Protein Ql (U) >=300 mg/dL Abnormal NEG/TRACE [facility] Leukocytes [#/volume] correc roosevelt for nucleated erythrocytes in Blood by Automated counon 02-21-2024 WBC corrected for nucl RBC Auto (Bld) [#/Vol] Leukocytes [#/volume] corrected for nucleated erythrocytes in Blood by Automated coun 4.0-11.0 [facility] MCH Auto (RBC) [Entitic mass ]on 02-21-2024 MCH (RBC) [Entitic mass] MCH [Entitic mass] by Automated count 25.9-34.0 [facility] MCHC Auto (RBC) [Mass/Vol]on 02-21-2024 MCHC (RBC) [Mass/Vol] MCHC [Mass/volume] by Automated count 29.9-35.2 [facility] MCV Auto (RBC) [Entitic vol] on 02-21-2024 MCV (RBC) [Entitic vol] MCV [Entitic volume] by Automated count 80.0-94.0 [facility] METRO IRON AND TIBCon 2023 TBH IRON 62 ug/dL Low 65.0 - 175.0 ug/dL [facility] TBH PERCENT IRON SATURATION 26.2 % [facility] TB TOTAL IRON BINDING CAPACITY 237 ug/dL Low 250.0 - 450.0 ug/dL [facility] No Panel Informationon 02-20 [facility] Interpretation and review of laboratory results Abnormal [facility] 25-Hydroxy Vitamin D Total 38.7 ng/mL [facility] Comment on above: <20 ng/mL Vit D defi cient20-<30 ng/mL Vit D vuzalanocxiw92-231 ng/mL Vit D sufficient>100 ng/mL Potential Toxicity Phosphorus Level 4.3 mg/dL 2.6-4.7 [facility] Urine Bacteria TRACE #/HPF Abnormal NONE SEEN [facility] Urine Occult Blood SMALL Abnormal NEGATIVE [facility] Urine Other Casts NONE SEEN #/LPF NONE SEEN [facility] Urine Other Crystals None Seen #/HPF None Seen [facility] Urine Random Creatinine 43.22 mg/dL 20.00-300.00 [facility] Urine RBC 0-2 #/HPF 0-2 [facility] Urine Squamous Epithelial Cells NONE SEEN #/LPF NONE/RARE [facility] Urine WBC NONE SEEN #/HPF NONE SEEN [facility] Platelet mean volume Auto (B ld) [Entitic vol]on 02-21-2024 Platelet mean volume (Bld) [Entitic vol] Platelet mean volume [Entitic volume] in Blood by Automated count Low 9.5-13.5 [facility] Platelets Auto (Bld) [#/Vol] on 02-21-2024 Platelets (Bld) [#/Vol] Platelets [#/volume] in Blood by Automated count 150-450 [facility] RBC Auto (Bld) [#/Vol]on RBC (Bld) [#/Vol] Erythrocytes [#/volume] in Blood by Automated count Low 4.70-6.10 [facility] Serum or plasma anion gap de terminationon 02-21-2024 Anion gap [Moles/Vol] Serum or plasma anion gap determination [facility] TB URINE T PROTEIN CREAT RA TIOon 02-21-2024 CREATININE URINE RANDOM 43.22 mg/dL 20.00 - 300.00 mg/dL [facility] Protein (U) [Mass/Vol] 226.5 mg/dL High NINF - 11.9 mg/dL [facility] PROTEIN CREATININE RATIO URINE 5.24 [facility] TB VITAMIN D 25 OHon 2023 VITAMIN D 38.7 ng/mL [facility] Comment on above: <20 ng/mL Vit D defi cient 20-<30 ng/mL Vit D insufficient 30-100 ng/mL Vit D sufficient >100 ng/mL Potential Toxicity Urine protein/creatinine rat ioon 02-21-2024 Protein/Creatinine (U) [Ratio] Urine protein/creatinine ratio [facility] ALL RENAL FUNCTION PANELon 1 Albumin [Mass/Vol] 3.4 g/dL 3.4 - 5.0 g/dL [facility] Anion gap [Moles/Vol] 17.7 mmol/L NO [facility] Calcium [Mass/Vol] 8.4 mg/dL Low 8.5 - 10. 1 mg/dL [facility] Chloride [Moles/Vol] 111 mmol/L High 98 - 10 7 mmol/L [facility] CO2 [Moles/Vol] 19.7 mmol/L Low 21.0 - 32.0 mmol/L [facility] Creatinine [Mass/Vol] 3.66 mg/dL High 0.70 - 1.30 mg/dL [facility] GFR/1.73 sq M.predicted CKD-EPI (S/P/Bld) [Vol rate/Area] 20 Low >=60 mL/min/1.73m 2 [facility] Glucose [Mass/Vol] 69 mg/dL Low 74 - 106 mg/dL [facility] Interpretation and review of laboratory results Abnormal [facility] Phosphate [Mass/Vol] 4.6 mg/dL 2.6 - 4 .7 mg/dL [facility] Potassium [Moles/Vol] 5.4 mmol/L High 3.5 - 5.1 mmol/L [facility] Sodium [Moles/Vol] 143 mmol/L 136 - 145 mmol/L [facility] TBH EGFR-NON AF [place] 16 Low >=60 mL/min/1.73m 2 [facility] [facility] Urea nitrogen [Mass/Vol] 67 mg/dL High 7.0 - 18.0 mg/dL [facility] Urea nitrogen/Creatinine [Mass ratio] 18.3 mg/mg [facility] distribution wid th Auto (RBC) [Ratio]on 01-28-2024 Erythrocyte distribution width (RBC) [Ratio] 13.3 % 11.0-15.0 [facility] Erythrocyte distribution width (RBC) [Ratio] Erythrocyte distribution width [Ratio] by Automated count 11.0-15.0 [facility] Estimated glomerular filtrat ion rate (GFR) non- Americanon 01-28-2024 GFR/1.73 sq M.predicted among non-blacks MDRD (S/P/Bld) [Vol rate/Area] 16 mL/min/{1.73_m2} Low >=60 mL/min/1.73m 2 [facility] GFR/1.73 sq M.predicted among non-blacks MDRD (S/P/Bld) [Vol rate/Area] Estimated glomerular filtration rate (GFR) non- Low >=60 mL/min/1.73m 2 [facility] Hematocrit Auto (Bld) [Volum e fraction]on 01-28-2024 Hematocrit (Bld) [Volume fraction] 29.3 % Low 42.0-54.0 [facility] Hematocrit (Bld) [Volume fraction] Hematocrit [Volume Fraction] of Blood by Automated count Low 42.0-54.0 [facility] Hemoglobin [Mass/volume] in Bloodon 01-28-2024 Hemoglobin (Bld) [Mass/Vol] 9.6 g/dL Low 14.0-18.0 [facility] Hemoglobin (Bld) [Mass/Vol] Hemoglobin [Mass/volume] in Blood Low 14.0-18.0 [facility] Laboratory - Chemistry and C hemistry - challengeon 01-28-2024 Albumin [Mass/Vol] 3.4 g/dL 3.4-5.0 [facility] Calcium [Mass/Vol] 8.4 mg/dL Low 8.5-10.1 [facility] Chloride [Moles/Vol] 111 mmol/L High 98-107 [facility] CO2 [Moles/Vol] 19.7 mmol/L Low 21.0-32.0 [facility] Creatinine [Mass/Vol] 3.66 mg/dL High 0.70-1.[address] [facility] GFR/1.73 sq M.predicted MDRD (S/P/Bld) [Vol rate/Area] 20 mL/min/{1.73_m2} Low >=60 mL/min/1.73m 2 [facility] Glucose [Mass/Vol] 69 mg/dL Low 74-106 [facility] Potassium [Moles/Vol] 5.4 mmol/L High 3.5-5.[address] [facility] Sodium [Moles/Vol] 143 mmol/L 136-145 [facility] Urea nitrogen [Mass/Vol] 67.0 mg/dL High 7.0-18.0 [facility] Urea nitrogen/Creatinine [Mass ratio] 18.3 mg/mg [facility] Leukocytes [#/volume] correc roosevelt for nucleated erythrocytes in Blood by Automated counon 01-28-2024 WBC corrected for nucl RBC Auto (Bld) [#/Vol] 8.8 10 3/uL 4.0-11.0 [facility] WBC corrected for nucl RBC Auto (Bld) [#/Vol] Leukocytes [#/volume] corrected for nucleated erythrocytes in Blood by Automated coun 4.0-11.0 [facility] MCH Auto (RBC) [Entitic mass ]on 01-28-2024 MCH (RBC) [Entitic mass] 30.5 pg 25.9-34.0 [facility] MCH (RBC) [Entitic mass] MCH [Entitic mass] by Automated count 25.9-34.0 [facility] MCHC Auto (RBC) [Mass/Vol]on 01-28-2024 MCHC (RBC) [Mass/Vol] 32.8 g/dL 29.9-35.[address] [facility] MCHC (RBC) [Mass/Vol] MCHC [Mass/volume] by Automated count 29.9-35.2 [facility] MCV Auto (RBC) [Entitic vol] on 01-28-2024 MCV (RBC) [Entitic vol] 93.0 fL 80.0-94.0 [facility] MCV (RBC) [Entitic vol] MCV [Entitic volume] by Automated count 80.0-94.0 [facility] No Panel Informationon 01-27 Phosphorus Level 4.6 mg/dL 2.6-4.7 [facility] Platelet mean volume Auto (B ld) [Entitic vol]on 01-28-2024 Platelet mean volume (Bld) [Entitic vol] 9.1 fL Low 9.5-13.5 [facility] Platelet mean volume (Bld) [Entitic vol] Platelet mean volume [Entitic volume] in Blood by Automated count Low 9.5-13.5 [facility] Platelets Auto (Bld) [#/Vol] on 01-28-2024 Platelets (Bld) [#/Vol] 195 10 3/uL 150-450 [facility] Platelets (Bld) [#/Vol] Platelets [#/volume] in Blood by Automated count 150-450 [facility] RBC Auto (Bld) [#/Vol]on RBC (Bld) [#/Vol] 3.15 10 6/uL Low 4.70-6.10 [facility] RBC (Bld) [#/Vol] Erythrocytes [#/volume] in Blood by Automated count Low 4.70-6.10 [facility] Serum or plasma anion gap de terminationon 01-28-2024 Anion gap [Moles/Vol] 17.7 mmol/L Fi [facility] Anion gap [Moles/Vol] Serum or plasma anion gap determination [facility] Erythrocyte distribution wid th Auto (RBC) [Ratio]on 12-23-2023 Erythrocyte distribution width (RBC) [Ratio] 13.3 % 11.0-15.0 [facility] Erythrocyte distribution width (RBC) [Ratio] Erythrocyte distribution width [Ratio] by Automated count 11.0-15.0 [facility] Estimated glomerular filtrat ion rate (GFR) non- Americanon 12-23-2023 GFR/1.73 sq M.predicted among non-blacks MDRD (S/P/Bld) [Vol rate/Area] 22 mL/min/{1.73_m2} Low >=60 [facility] GFR/1.73 sq M.predicted among non-blacks MDRD (S/P/Bld) [Vol rate/Area] Estimated glomerular filtration rate (GFR) non- Low >=60 [facility] CBC WITH PLATELET NO DI FFERENTIALon 12-23-2023 Erythrocyte distribution width (RBC) [Ratio] 13.3 % 11.0 - 15.0 % [facility] Hematocrit (Bld) [Volume fraction] 29.5 % Low 42.0 - 54.0 % [facility] Hemoglobin (Bld) [Mass/Vol] 9.8 g/dL Low 14.0 - 18.0 g/dL [facility] Interpretation and review of laboratory results Abnormal [facility] MCH (RBC) [Entitic mass] 30.6 pg 25.9 - 34.0 pg [facility] MCHC (RBC) [Mass/Vol] 33.2 g/dL 29.9 - 35.2 g/dL [facility] MCV (RBC) [Entitic vol] 92.2 fL 80.0 - 94.0 fL [facility] Platelet mean volume (Bld) [Entitic vol] 8.7 fL Low 9.5 - 13.5 fL [facility] TBH PLT 173 [facility] TBH RBC 3.20 [facility] WBC 7.2 [facility] Hematocrit Auto (Bld) [Volum e fraction]on 12-23-2023 Hematocrit (Bld) [Volume fraction] 29.5 % Low 42.0-54.0 [facility] Hematocrit (Bld) [Volume fraction] Hematocrit [Volume Fraction] of Blood by Automated count Low 42.0-54.0 [facility] Hemoglobin [Mass/volume] in Bloodon 12-23-2023 Hemoglobin (Bld) [Mass/Vol] 9.8 g/dL Low 14.0-18.0 [facility] Hemoglobin (Bld) [Mass/Vol] Hemoglobin [Mass/volume] in Blood Low 14.0-18.0 [facility] Laboratory - Chemistry and C hemistry - challengeon 12-23-2023 Albumin [Mass/Vol] 3.5 g/dL 3.4-5.0 [facility] Calcium [Mass/Vol] 8.4 mg/dL Low 8.5-10.1 [facility] Chloride [Moles/Vol] 104 mmol/L 98-107 [facility] CO2 [Moles/Vol] 27.3 mmol/L 21.0-32.0 [facility] Creatinine [Mass/Vol] 2.88 mg/dL High 0.70-1.[address] [facility] GFR/1.73 sq M.predicted MDRD (S/P/Bld) [Vol rate/Area] 26 mL/min/{1.73_m2} Low >=60 [facility] Glucose [Mass/Vol] 75 mg/dL 74-106 [facility] Potassium [Moles/Vol] 5.1 mmol/L 3.5-5.[address] [facility] Sodium [Moles/Vol] 138 mmol/L 136-145 [facility] Urea nitrogen [Mass/Vol] 60.0 mg/dL High 7.0-18.0 [facility] Urea nitrogen/Creatinine [Mass ratio] 20.8 mg/mg [facility] Leukocytes [#/volume] correc roosevelt for nucleated erythrocytes in Blood by Automated counon 12-23-2023 WBC corrected for nucl RBC Auto (Bld) [#/Vol] 7.2 10 3/uL 4.0-11.0 [facility] WBC corrected for nucl RBC Auto (Bld) [#/Vol] Leukocytes [#/volume] corrected for nucleated erythrocytes in Blood by Automated coun 4.0-11.0 [facility] MCH Auto (RBC) [Entitic mass ]on 12-23-2023 MCH (RBC) [Entitic mass] 30.6 pg 25.9-34.0 [facility] MCH (RBC) [Entitic mass] MCH [Entitic mass] by Automated count 25.9-34.0 [facility] MCHC Auto (RBC) [Mass/Vol]on 12-23-2023 MCHC (RBC) [Mass/Vol] 33.2 g/dL 29.9-35.[address] [facility] MCHC (RBC) [Mass/Vol] MCHC [Mass/volume] by Automated count 29.9-35.2 [facility] MCV Auto (RBC) [Entitic vol] on 12-23-2023 MCV (RBC) [Entitic vol] 92.2 fL 80.0-94.0 [facility] MCV (RBC) [Entitic vol] MCV [Entitic volume] by Automated count 80.0-94.0 [facility] No Panel Informationon 12-22 Phosphorus Level 4.5 mg/dL 2.6-4.7 [facility] Platelet mean volume Auto (B ld) [Entitic vol]on 12-23-2023 Platelet mean volume (Bld) [Entitic vol] 8.7 fL Low 9.5-13.5 [facility] Platelet mean volume (Bld) [Entitic vol] Platelet mean volume [Entitic volume] in Blood by Automated count Low 9.5-13.5 [facility] Platelets Auto (Bld) [#/Vol] on 12-23-2023 Platelets (Bld) [#/Vol] 173 10 3/uL 150-450 [facility] Platelets (Bld) [#/Vol] Platelets [#/volume] in Blood by Automated count 150-450 [facility] RBC Auto (Bld) [#/Vol]on RBC (Bld) [#/Vol] 3.20 10 6/uL Low 4.70-6.10 [facility] RBC (Bld) [#/Vol] Erythrocytes [#/volume] in Blood by Automated count Low 4.70-6.10 [facility] Serum or plasma anion gap de terminationon 12-23-2023 Anion gap [Moles/Vol] 11.8 mmol/L [facility] Anion gap [Moles/Vol] Serum or plasma anion gap determination [facility] Office Visiton 12-18-2023 Follow-up visit [id number] Omer Santos 1950 M Date Provider Department Center 12/18/2023 ALDO SHAIKH [facility] Family History Problem Relation Age of Onset Coronary artery disease Father Other Father Heart attack Father Coronary artery disease Brother Heart attack Brother Other Brother Heart attack Paternal Grandfather Family Status - Relation Status Age at Father Brother Paternal Grandfather Level of Service:91050 [place] OFFICE/OUTPATIENT ESTABLISHED SF MDM 10 MIN Normal [facility] Erythrocyte distribution wid th Auto (RBC) [Ratio]on 11-26-2023 Erythrocyte distribution width (RBC) [Ratio] 13.4 % 11.0-15.0 [facility] Estimated glomerular filtrat ion rate (GFR) non- Americanon 11-26-2023 GFR/1.73 sq M.predicted among non-blacks MDRD (S/P/Bld) [Vol rate/Area] 20 mL/min/{1.73_m2} Low >=60 [facility] CBC WITH PLATELET NO DI FFERENTIALon 11-26-2023 Erythrocyte distribution width (RBC) [Ratio] 13.4 % 11.0 - 15.0 % [facility] Hematocrit (Bld) [Volume fraction] 29.5 % Low 42.0 - 54.0 % [facility] Hemoglobin (Bld) [Mass/Vol] 9.7 g/dL Low 14.0 - 18.0 g/dL [facility] Interpretation and review of laboratory results Abnormal [facility] MCH (RBC) [Entitic mass] 30.5 pg 25.9 - 34.0 pg [facility] MCHC (RBC) [Mass/Vol] 32.9 g/dL 29.9 - 35.2 g/dL [facility] MCV (RBC) [Entitic vol] 92.8 fL 80.0 - 94.0 fL [facility] Platelet mean volume (Bld) [Entitic vol] 8.9 fL Low 9.5 - 13.5 fL [facility] TBH PLT 175 [facility] TBH RBC 3.18 Low [facility] TBH WBC 7.3 [facility] Hematocrit Auto (Bld) [Volum e fraction]on 11-26-2023 Hematocrit (Bld) [Volume fraction] 29.5 % Low 42.0-54.0 [facility] Hemoglobin [Mass/volume] in Bloodon 11-26-2023 Hemoglobin (Bld) [Mass/Vol] 9.7 g/dL Low 14.0-18.0 [facility] Iron binding capacity [Mass/ volume] in Serum or Plasmaon 11-26-2023 Iron binding capacity [Mass/Vol] 221.0 ug/dL Low 250.0-450.0 [facility] Iron saturation [Mass Fracti on] in Serum or Plasmaon 11-26-2023 Iron saturation [Mass fraction] 32.6 % [facility] Laboratory - Chemistry and C hemistry - challengeon 11-26-2023 Albumin [Mass/Vol] 3.6 g/dL 3.4-5.0 [facility] Calcium [Mass/Vol] 8.7 mg/dL 8.5-10.1 [facility] Chloride [Moles/Vol] 109 mmol/L High 98-107 [facility] CO2 [Moles/Vol] 23.3 mmol/L 21.0-32.0 [facility] Creatinine [Mass/Vol] 3.03 mg/dL High 0.70-1.[address] [facility] Ferritin [Mass/Vol] 154.0 ng/mL 26.0-388.0 [facility] GFR/1.73 sq M.predicted MDRD (S/P/Bld) [Vol rate/Area] 25 mL/min/{1.73_m2} Low >=60 [facility] Glucose [Mass/Vol] 81 mg/dL 74-106 [facility] Iron [Mass/Vol] 72.0 ug/dL 65.0-175.0 [facility] Magnesium [Mass/Vol] 2.0 mg/dL 1.8-2.4 [facility] Potassium [Moles/Vol] 5.3 mmol/L High 3.5-5.[address] [facility] Sodium [Moles/Vol] 143 mmol/L 136-145 [facility] Urate [Mass/Vol] 6.8 mg/dL 3.5-7.2 [facility] Urea nitrogen [Mass/Vol] 64.0 mg/dL High 7.0-18.0 [facility] Urea nitrogen/Creatinine [Mass ratio] 21.1 mg/mg [facility] Laboratory - Urinalysison Protein (U) [Mass/Vol] 289.7 mg/dL High <=11.9 [facility] Leukocytes [#/volume] correc roosevelt for nucleated erythrocytes in Blood by Automated counon 11-26-2023 WBC corrected for nucl RBC Auto (Bld) [#/Vol] 7.3 10 3/uL 4.0-11.0 [facility] MCH Auto (RBC) [Entitic mass ]on 11-26-2023 MCH (RBC) [Entitic mass] 30.5 pg 25.9-34.0 [facility] MCHC Auto (RBC) [Mass/Vol]on 11-26-2023 MCHC (RBC) [Mass/Vol] 32.9 g/dL 29.9-35.[address] [facility] MCV Auto (RBC) [Entitic vol] on 11-26-2023 MCV (RBC) [Entitic vol] 92.8 fL 80.0-94.0 [facility] No Panel Informationon 11-25 25-Hydroxy Vitamin D Total 47.9 ng/mL [facility] Comment on above: <20 ng/mL Vit D defi cient20-<30 ng/mL Vit D [id number] ng/mL Vit D sufficient>100 ng/mL Potential Toxicity Parathyroid Hormone (Intact) 115 pg/mL Abnormal 15-65 [facility] Comment on above: Performed at: [address] [id number] Director: Venu Hector PhD, Phone: [phone] Phosphorus Level 4.6 mg/dL 2.6-4.7 [facility] Urine Random Creatinine 54.70 mg/dL 20.00-300.00 [facility] Platelet mean volume Auto (B ld) [Entitic vol]on 11-26-2023 Platelet mean volume (Bld) [Entitic vol] 8.9 fL Low 9.5-13.5 [facility] Platelets Auto (Bld) [#/Vol] on 11-26-2023 Platelets (Bld) [#/Vol] 175 10 3/uL 150-450 [facility] RBC Auto (Bld) [#/Vol]on RBC (Bld) [#/Vol] 3.18 10 6/uL Low 4.70-6.10 [facility] Serum or plasma anion gap de terminationon 11-26-2023 Anion gap [Moles/Vol] 16.0 mmol/L [facility] Urine protein/creatinine rat ioon 11-26-2023 Protein/Creatinine (U) [Ratio] 5.30 [facility] Laboratory - Chemistry and C hemistry - challengeon 10-23-2023 Albumin [Mass/Vol] 4.0 g/dL [facility] Calcium [Mass/Vol] 8.4 mg/dL [facility] Chloride [Moles/Vol] 111 mmol/L [facility] CO2 [Moles/Vol] 21 mmol/L [facility] Creatinine [Mass/Vol] 2.81 mg/dL High [facility] Glucose [Mass/Vol] 84 mg/dL [facility] Potassium [Moles/Vol] 4.8 mmol/L [facility] Sodium [Moles/Vol] 140 mmol/L [facility] Urea nitrogen [Mass/Vol] 59 mg/dL [facility] Laboratory - Hematology and Cell countson 10-23-2023 Erythrocyte distribution width (RBC) [Ratio] 12.9 % [facility] Hematocrit (Bld) [Volume fraction] 27.3 % [facility] Hemoglobin (Bld) [Mass/Vol] 9.0 g/dL [facility] MCH (RBC) [Entitic mass] 30.5 pg [facility] MCHC (RBC) [Mass/Vol] 33.0 g/dL [facility] MCV (RBC) [Entitic vol] 92.5 fL [facility] Platelet mean volume (Bld) [Entitic vol] 9.0 fL [facility] Platelets (Bld) [#/Vol] 190 10*3/uL [facility] RBC (Bld) [#/Vol] 2.95 10*6/uL [facility] WBC (Bld) [#/Vol] 6.8 10*3/uL [facility] No Panel Informationon 10-22 25-Hydroxy Vitamin D Total 63 ng/mL [facility] Estimated GFR (Non- 23 mL/min Low [facility] Parathyroid Hormone (Intact) 136 High [facility] Phosphorus Level 4.5 mg/dL [facility] Erythrocyte distribution wid th Auto (RBC) [Ratio]on 09-20-2023 Erythrocyte distribution width (RBC) [Ratio] 13.2 % 11.0-15.0 [facility] Hematocrit Auto (Bld) [Volum e fraction]on 09-20-2023 Hematocrit (Bld) [Volume fraction] 30.4 % Low 42.0-54.0 [facility] Hemoglobin [Mass/volume] in Bloodon 09-20-2023 Hemoglobin (Bld) [Mass/Vol] 10.1 g/dL Low 14.0-18.0 [facility] Leukocytes [#/volume] correc roosevelt for nucleated erythrocytes in Blood by Automated counon 09-20-2023 WBC corrected for nucl RBC Auto (Bld) [#/Vol] 7.2 10 3/uL 4.0-11.0 [facility] MCH Auto (RBC) [Entitic mass ]on 09-20-2023 MCH (RBC) [Entitic mass] 30.3 pg 25.9-34.0 [facility] MCHC Auto (RBC) [Mass/Vol]on 09-20-2023 MCHC (RBC) [Mass/Vol] 33.2 g/dL 29.9-35.[address] [facility] MCV Auto (RBC) [Entitic vol] on 09-20-2023 MCV (RBC) [Entitic vol] 91.3 fL 80.0-94.0 [facility] Platelet mean volume Auto (B ld) [Entitic vol]on 09-20-2023 Platelet mean volume (Bld) [Entitic vol] 8.6 fL Low 9.5-13.5 [facility] Platelets Auto (Bld) [#/Vol] on 09-20-2023 Platelets (Bld) [#/Vol] 191 10 3/uL 150-450 [facility] RBC Auto (Bld) [#/Vol]on RBC (Bld) [#/Vol] 3.33 10 6/uL Low 4.70-6.10 [facility] Erythrocyte distribution wid th Auto (RBC) [Ratio]on 09-03-2023 Erythrocyte distribution width (RBC) [Ratio] 13.3 % 11.0-15.0 [facility] Estimated glomerular filtrat ion rate (GFR) non- Americanon 09-03-2023 GFR/1.73 sq M.predicted among non-blacks MDRD (S/P/Bld) [Vol rate/Area] 23 mL/min/{1.73_m2} Low >=60 [facility] Hematocrit Auto (Bld) [Volum e fraction]on 09-03-2023 Hematocrit (Bld) [Volume fraction] 27.1 % Low 42.0-54.0 [facility] Hemoglobin [Mass/volume] in Bloodon 09-03-2023 Hemoglobin (Bld) [Mass/Vol] 9.1 g/dL Low 14.0-18.0 [facility] Laboratory - Chemistry and C hemistry - challengeon 09-03-2023 Albumin [Mass/Vol] 3.5 g/dL 3.4-5.0 [facility] Calcium [Mass/Vol] 8.2 mg/dL Low 8.5-10.1 [facility] Chloride [Moles/Vol] 107 mmol/L 98-107 [facility] CO2 [Moles/Vol] 23.0 mmol/L 21.0-32.0 [facility] Creatinine [Mass/Vol] 2.68 mg/dL High 0.70-1.[address] [facility] GFR/1.73 sq M.predicted MDRD (S/P/Bld) [Vol rate/Area] 28 mL/min/{1.73_m2} Low >=60 [facility] Glucose [Mass/Vol] 53 mg/dL Low 74-106 [facility] Magnesium [Mass/Vol] 2.1 mg/dL 1.8-2.4 [facility] Potassium [Moles/Vol] 4.7 mmol/L 3.5-5.[address] [facility] Sodium [Moles/Vol] 139 mmol/L 136-145 [facility] Urea nitrogen [Mass/Vol] 54.0 mg/dL High 7.0-18.0 [facility] Urea nitrogen/Creatinine [Mass ratio] 20.1 mg/mg [facility] Leukocytes [#/volume] correc roosevelt for nucleated erythrocytes in Blood by Automated counon 09-03-2023 WBC corrected for nucl RBC Auto (Bld) [#/Vol] 9.2 10 3/uL 4.0-11.0 [facility] MCH Auto (RBC) [Entitic mass ]on 09-03-2023 MCH (RBC) [Entitic mass] 31.2 pg 25.9-34.0 [facility] MCHC Auto (RBC) [Mass/Vol]on 09-03-2023 MCHC (RBC) [Mass/Vol] 33.6 g/dL 29.9-35.[address] [facility] MCV Auto (RBC) [Entitic vol] on 09-03-2023 MCV (RBC) [Entitic vol] 92.8 fL 80.0-94.0 [facility] No Panel Informationon 09-02 Phosphorus Level 4.2 mg/dL 2.6-4.7 [facility] Platelet mean volume Auto (B ld) [Entitic vol]on 09-03-2023 Platelet mean volume (Bld) [Entitic vol] 9.0 fL Low 9.5-13.5 [facility] Platelets Auto (Bld) [#/Vol] on 09-03-2023 Platelets (Bld) [#/Vol] 202 10 3/uL 150-450 [facility] RBC Auto (Bld) [#/Vol]on RBC (Bld) [#/Vol] 2.92 10 6/uL Low 4.70-6.10 [facility] Serum or plasma anion gap de terminationon 09-03-2023 Anion gap [Moles/Vol] 13.7 mmol/L Fi [facility] Erythrocyte distribution wid th Auto (RBC) [Ratio]on 08-02-2023 Erythrocyte distribution width (RBC) [Ratio] 13.2 % 11.0-15.0 [facility] Estimated glomerular filtrat ion rate (GFR) non- Americanon 08-02-2023 GFR/1.73 sq M.predicted among non-blacks MDRD (S/P/Bld) [Vol rate/Area] 23 mL/min/{1.73_m2} Low >=60 [facility] Hematocrit Auto (Bld) [Volum e fraction]on 08-02-2023 Hematocrit (Bld) [Volume fraction] 28.2 % Low 42.0-54.0 [facility] Hemoglobin [Mass/volume] in Bloodon 08-02-2023 Hemoglobin (Bld) [Mass/Vol] 9.2 g/dL Low 14.0-18.0 [facility] Iron binding capacity [Mass/ volume] in Serum or Plasmaon 08-02-2023 Iron binding capacity [Mass/Vol] 226.0 ug/dL Low 250.0-450.0 [facility] Iron saturation [Mass Fracti on] in Serum or Plasmaon 08-02-2023 Iron saturation [Mass fraction] 28.8 % [facility] Laboratory - Chemistry and C hemistry - challengeon 08-02-2023 Albumin [Mass/Vol] 3.2 g/dL Low 3.4-5.0 [facility] Calcium [Mass/Vol] 8.7 mg/dL 8.5-10.1 [facility] Chloride [Moles/Vol] 106 mmol/L 98-107 [facility] CO2 [Moles/Vol] 25.5 mmol/L 21.0-32.0 [facility] Creatinine [Mass/Vol] 2.70 mg/dL High 0.70-1.[address] [facility] Ferritin [Mass/Vol] 146.0 ng/mL 26.0-388.0 [facility] GFR/1.73 sq M.predicted MDRD (S/P/Bld) [Vol rate/Area] 28 mL/min/{1.73_m2} Low >=60 [facility] Glucose [Mass/Vol] 93 mg/dL 74-106 [facility] Iron [Mass/Vol] 65.0 ug/dL 65.0-175.0 [facility] Potassium [Moles/Vol] 5.4 mmol/L High 3.5-5.[address] [facility] Sodium [Moles/Vol] 141 mmol/L 136-145 [facility] Urea nitrogen [Mass/Vol] 48.0 mg/dL High 7.0-18.0 [facility] Urea nitrogen/Creatinine [Mass ratio] 17.8 mg/mg [facility] Leukocytes [#/volume] correc roosevelt for nucleated erythrocytes in Blood by Automated counon 08-02-2023 WBC corrected for nucl RBC Auto (Bld) [#/Vol] 7.7 10 3/uL 4.0-11.0 [facility] MCH Auto (RBC) [Entitic mass ]on 08-02-2023 MCH (RBC) [Entitic mass] 31.4 pg 25.9-34.0 [facility] MCHC Auto (RBC) [Mass/Vol]on 08-02-2023 MCHC (RBC) [Mass/Vol] 32.6 g/dL 29.9-35.[address] [facility] MCV Auto (RBC) [Entitic vol] on 08-02-2023 MCV (RBC) [Entitic vol] 96.2 fL High 80.0-94.0 [facility] No Panel Informationon 08-01 Phosphorus Level 4.4 mg/dL 2.6-4.7 [facility] Platelet mean volume Auto (B ld) [Entitic vol]on 08-02-2023 Platelet mean volume (Bld) [Entitic vol] 8.8 fL Low 9.5-13.5 [facility] Platelets Auto (Bld) [#/Vol] on 08-02-2023 Platelets (Bld) [#/Vol] 191 10 3/uL 150-450 [facility] RBC Auto (Bld) [#/Vol]on RBC (Bld) [#/Vol] 2.93 10 6/uL Low 4.70-6.10 [facility] Serum or plasma anion gap de terminationon 08-02-2023 Anion gap [Moles/Vol] 14.9 mmol/L [facility] Audiology Office/Clinic Note on 07-31-2023 Audiology Office/Clinic Note History: Patient seen today for an audiological assessment. Patient was referred for today's testing by his/her PCP due to tinnitus. Patient reported bilateral tinnitus. He stated since he had a recent surgery on his neck, he has had tinnitus which he described as sounding like crickets and a shhh noise. He stated prior to the surgery, he was able to hear his heartbeat in his ears. He denied difficulties hearing however his reported he listens to the TV at a very loud level. He reported history of noise exposure which included a loud press on his right side for over 30 years. He denied history of otologic treatment/pathology and vertigo. He noted he uses a bedside sound machine which provides some relief from his tinnitus. Otoscopy: Right Ear:Unremarkable Left Ear: Unremarkable Tympanometry: Right Ear: Type A tympanogram, suggesting normal middle ear function. Left Ear: Type A tympanogram, suggesting normal middle ear function. Test Results: Right Ear:Pure tone audiometry suggested a mild to moderately severe sensorineural hearing loss. Word recognition score was good at 84%. Left Ear: Pure tone audiometry suggested a mild to moderately severe sensorineural hearing loss. Word recognition score was good at 88%. Summary: Results were reviewed with patient/family. Patient is a candidate for amplification. He stated he would not use hearing aids outside of his home as he would not want others to see them. He was advised to consider a hearing aid evaluation to learn more about hearing aids. Plan: 1. Follow up with ENT. 2. Consider hearing aid evaluation. Electronically signed by Yseenia Paige 07/31/23 12:20 EDT Normal [facility] Otolaryngology Office/Clinic Noteon 07-31-2023 Otolaryngology Office/Clinic Note Chief Complaint Tinnitus History of Present Illness Omer is a pleasant 73-year-old male who presents today as an established patient with a new complaint. Was previously seen in January [address] Roca prior to ACDF surgery for spinal stenosis. He had a flexible laryngoscopy at that time which was rather unremarkable. For the last 5+ years patient has had tinnitus bilaterally. This originally was pulsatile bilaterally though after his carotid enterectomy the pulsations stopped. He has had what he describes as a locus sensation to his ears bilaterally that is high-pitched. He denies any pulsation at this time. This is very bothersome to patient and present at all times of the day. He does sometimes have difficulty sleeping because of this. His notices hearing loss though patient denies any hearing loss. He has a history of loud noise exposure. No previous ear surgery. No associated otalgia, otorrhea, or vertigo symptoms. Physical Exam Vitals & Measurements T: 36.8 ?C (Temporal Artery) HR: 61 (Peripheral) BP: 170/53 HT: 167 cm WT: 80 kg BMI: 28.69 Constitutional: Well-developed, well-nourished Communication and Voice: Clear pitch and clarity, age appropriate Head and Face Inspection: Normocephalic and atraumatic without masses or lesions Palpation: Facial skeleton intact without bony stepoffs, no sinus tenderness Salivary Glands: No masses or tenderness Eyes Nystagmus: None EOM: Equal extraocular motion bilaterally ENT External nose: No scar or anatomic deformity Internal Nose: Septum intact and midline. No edema, polyps, or rhinorrhea Lips, Teeth, and gums: Mucosa and teeth intact and viable TMJ: No pain to palpation with full mobility Oral cavity/oropharynx: No erythema or exudate with non-obstructive tonsils Neck Neck and Trachea: Midline trachea without mass or lesion Thyroid: No mass or nodularity Lymphatics No cervical lymphadenopathy Respiratory Equal inspiration & expiration without use of accessory muscles No stridor Cardiovascular Peripheral Vascular: Warm extremities with good skin perfusion Skin Warm and well-perfused Neuro/Psych/Balance Orientation: Patient oriented to person, place, and time Affect: Appropriate mood and affect Gait: Intact with no imbalance Cranial nerves: II-XII are intact bilaterally Ear Pinna: Left - External ear intact and fully developed Right - External ear intact and fully developed External canal: Left - Canal is patent with intact skin Right - Canal is patent with intact skin Cerumen: Left - Normal amount and character, non-obstructing Right - Normal amount and character, non-obstructing Tympanic Membranes: Left - Clear and mobile Right - Clear and mobile Middle Ears: Left - Aerated, no effusion, no masses Right - Aerated, no effusion, no masses Data Reviewed Audiogram: Normal downsloping to moderate sensorineural hearing loss bilaterally. SRT of 60 on the right and 45 on the left. WRs of 84% on the right and 88% on the left. Type a tympanograms bilaterally. Additional Vitals BP Position/Location: Sitting, Left arm Assessment/Plan 1. Tinnitus, bilateral 2. Sensorineural hearing loss (SNHL), bilateral Reviewed audiogram with patient today. He has sensorineural hearing loss bilaterally. We discussed that the cause of his tinnitus is likely has hearing loss bilaterally. We discussed options including masking, referral to tinnitus management clinic, and bilateral hearing amplification. Patient was adamant that he cannot wear hearing aids as he is worried about how they will look to other people. We had a very long discussion regarding this. He is aware that hearing amplification would be beneficial from a hearing standpoint as well as possibly his tinnitus due to masking features. I strongly encouraged him to think about this. He states that he would not be able to wear these out in public. We discussed how typically these are minimally noticeable these days. He is going to give us a call back on how he would like to proceed. He is a candidate for hearing aids and medically cleared. Would be happy to see him back as needed. He was given a handout on tinnitus today as well as my business card. Medical Decision Making Chronic conditions NOT treated during this visit that affected my overall medical decision making: [] Treatment plans discussed but not opted for at this time: [] Prescribed medication that requires intensive monitoring for toxicity: [] I have reviewed the patient?s medication list for medication interactions/contrai ndications and/or for upcoming procedures: [yes or no] Time Spent with the Patient I have personally spent [] minutes on this date, directly related to today's patient visit, including pre and post visit work, for this date of service. Time listed does not include time spent on separately billable services. Problem List/Past Medical History Ongoing Anemia Asthma BPH (benign prostatic (more content not included)... Normal [facility] MRI Thoracic Spine w/o Contr ason 07-25-2023 MRI Thoracic Spine w/o Contras [facility] Radiology Department Patient: OMER SANTOS. : 1950 Sex: [place] [id number] Location: [facility] [phone] Unit #: [id number] Ordering Phys: Patric Reese PA-C Exam Date: 07/25/23 Exam: MRI MRI Thoracic Spine w/o Contras Result: See Report [id number] STUDY: MRI THORACIC SPINE WITHOUT CONTRAST REASON FOR EXAM: Male, 73 years old. BACK PAIN, NO INJURY, DIFFICULTY WALKING, HX OF CERVICAL and amp; LUMBAR SURGERY TECHNIQUE: Standardized fat and water weighted pulse sequences were obtained in the sagittal and axial planes. COMPARISON: None. FINDINGS: There is straightening of the normal thoracic kyphosis. There is no substantial scoliosis. Spondylosis. T1-2, T2-3, T3-4, T4-5, T5-6, T6-7, T7-8, T8-9, T11-12: Spondylitic endplates. Normal disc hydration, heights and morphology of the corresponding intervertebral discs. Normal central canal and intervertebral neural foramina at the corresponding levels.Neural foraminal narrowing bilaterally at T9-10 and T10-11. Multilevel disc space narrowing and spondylosis. T1 and T2 lengthening noted within the pedicle on the right at T10. Retrolisthesis lumbar spine disc marginal osteophyte. Lumbar hardware. Normal visualized thoracic cord. Normal conus medullaris that terminates at the L1-2 level.. The soft tissue structures are unremarkable. IMPRESSION: T2 lengthening noted within the T10 vertebral body and pedicle on the right. Recommend correlation with CT. No evidence of discitis. Spondylosis and spinal stenosis. Electronically Signed: Miles Wilkinson MD at 17:06 EDT , cc: Patric Reese PA-C; Ruben Luo MD Dictated by: Miles Wilkinson MD on 07/26/231705 Transcribed by: Miles Wilkinson on 07/26/231705 Report Signed by: Miles Wilkinson MD on 07/26/231705 Normal [facility] Erythrocyte distribution wid th Auto (RBC) [Ratio]on 07-06-2023 Erythrocyte distribution width (RBC) [Ratio] 13.2 % 11.0-15.0 [facility] Estimated glomerular filtrat ion rate (GFR) non- Americanon 07-06-2023 GFR/1.73 sq M.predicted among non-blacks MDRD (S/P/Bld) [Vol rate/Area] 25 mL/min/{1.73_m2} >=60 [facility] Hematocrit Auto (Bld) [Volum e fraction]on 07-06-2023 Hematocrit (Bld) [Volume fraction] 29.5 % 42.0-54.0 [facility] Hemoglobin [Mass/volume] in Bloodon 07-06-2023 Hemoglobin (Bld) [Mass/Vol] 9.9 g/dL 14.0-18.0 [facility] Laboratory - Chemistry and C hemistry - challengeon 07-06-2023 Albumin [Mass/Vol] 3.4 g/dL 3.4-5.0 [facility] Calcium [Mass/Vol] 8.2 mg/dL 8.5-10.1 [facility] Chloride [Moles/Vol] 107 mmol/L 98-107 [facility] CO2 [Moles/Vol] 21.5 mmol/L 21.0-32.0 [facility] Creatinine [Mass/Vol] 2.51 mg/dL 0.70-1.[address] [facility] GFR/1.73 sq M.predicted MDRD (S/P/Bld) [Vol rate/Area] 31 mL/min/{1.73_m2} >=60 [facility] Glucose [Mass/Vol] 93 mg/dL 74-106 [facility] Potassium [Moles/Vol] 5.2 mmol/L 3.5-5.[address] [facility] Sodium [Moles/Vol] 140 mmol/L 136-145 [facility] Urea nitrogen [Mass/Vol] 51.0 mg/dL 7.0-18.0 [facility] Urea nitrogen/Creatinine [Mass ratio] 20.3 mg/mg [facility] Leukocytes [#/volume] correc roosevelt for nucleated erythrocytes in Blood by Automated counon 07-06-2023 WBC corrected for nucl RBC Auto (Bld) [#/Vol] 8.2 10 3/uL 4.0-11.0 [facility] MCH Auto (RBC) [Entitic mass ]on 07-06-2023 MCH (RBC) [Entitic mass] 31.4 pg 25.9-34.0 [facility] MCHC Auto (RBC) [Mass/Vol]on 07-06-2023 MCHC (RBC) [Mass/Vol] 33.6 g/dL 29.9-35.[address] [facility] MCV Auto (RBC) [Entitic vol] on 07-06-2023 MCV (RBC) [Entitic vol] 93.7 fL 80.0-94.0 [facility] No Panel Informationon 07-05 Phosphorus Level 4.2 mg/dL 2.6-4.7 [facility] Platelet mean volume Auto (B ld) [Entitic vol]on 07-06-2023 Platelet mean volume (Bld) [Entitic vol] 8.7 fL 9.5-13.5 [facility] Platelets Auto (Bld) [#/Vol] on 07-06-2023 Platelets (Bld) [#/Vol] 174 10 3/uL 150-450 [facility] RBC Auto (Bld) [#/Vol]on RBC (Bld) [#/Vol] 3.15 10 6/uL 4.70-6.10 [facility] Serum or plasma anion gap de terminationon 07-06-2023 Anion gap [Moles/Vol] 16.7 mmol/L [facility] Office Visiton 06-24-2023 Follow-up visit [id number] Omer Santos 1950 M Date Provider Department Center 06/24/2023 VADIM SANTOS DEB[facility]AH [facility] Family History Problem Relation Age of Onset Coronary artery disease Father Other Father Heart attack Father Coronary artery disease Brother Heart attack Brother Other Brother Heart attack Paternal Grandfather Family Status - Relation Status Age at Father Brother Paternal Grandfather Level of Service:53421 [place] OFFICE/OUTPATIENT ESTABLISHED MOD MDM 30 MIN Normal [facility] Automated epithelial cells c ount in urine sediment (number/area)on 06-07-2023 Epithelial cells Auto (Urine sed) [#/Area] RARE #/LPF NONE/RARE [facility] Automated leukocytes count i n urine sediment (number/area)on 06-07-2023 WBC Auto (Urine sed) [#/Area] 2-5 #/HPF 0-2 [facility] Casts typing in urine sedime nt by light microscopyon 06-07-2023 Casts LM Nom (Urine sed) NONE SEEN #/LPF NONE SEEN [facility] Laboratory - Chemistry and C hemistry - challengeon 06-07-2023 Albumin [Mass/Vol] 3.4 g/dL [facility] Calcium [Mass/Vol] 8.5 mg/dL [facility] Creatinine [Mass/Vol] 2.38 mg/dL [facility] GFR/1.73 sq M.predicted MDRD (S/P/Bld) [Vol rate/Area] 33 mL/min/{1.73_m2} [facility] Glucose [Mass/Vol] 125 mg/dL [facility] Urea nitrogen [Mass/Vol] 51.0 mg/dL [facility] Bilirubin Ql (U) Negative [facility] Glucose (U) [Mass/Vol] Negative [facility] Ketones Ql (U) Negative [facility] pH (U) 6.0 [pH] [facility] Specific gravity (U) [Rel density] 1.025 [facility] Urobilinogen (U) [Mass/Vol] 0.2 mg/dL [facility] Laboratory - Hematology and Cell countson 06-07-2023 Erythrocyte distribution width (RBC) [Ratio] 13.6 % [facility] Hematocrit (Bld) [Volume fraction] 29.3 % [facility] Hemoglobin (Bld) [Mass/Vol] 9.8 g/dL [facility] MCH (RBC) [Entitic mass] 31.9 pg [facility] MCHC (RBC) [Mass/Vol] 33.4 g/dL [facility] MCV (RBC) [Entitic vol] 95.4 fL [facility] Platelet mean volume (Bld) [Entitic vol] 8.6 fL [facility] Platelets (Bld) [#/Vol] 169 10*3/uL [facility] RBC (Bld) [#/Vol] 3.07 10*6/uL [facility] WBC (Bld) [#/Vol] 8.1 10*3/uL [facility] Laboratory - Specimen inform ationon 06-07-2023 Appearance (U) clear [facility] Color (U) ltyellow [facility] Laboratory - Urinalysison Leukocyte esterase Test strip Ql (U) Negative [facility] Nitrite Ql (U) Negative [facility] Protein Ql (U) >=300 [facility] Mucus LM Ql (Urine sed)on Mucus Ql (Urine sed) NONE SEEN NONE SEEN [facility] No Panel Informationon 06-06 25-Hydroxy Vitamin D Total 42.3 ng/mL [facility] Estimated GFR (Non- 27 mL/min [facility] Phosphorus Level 4.3 mg/dL [facility] Urine Collection Type cleancatch Fir [facility] Urine Occult Blood small [facility] Parathyroid Hormone (Intact) 76 [facility] Urine bacteria detection by automated methodon 06-07-2023 Bacteria Auto Ql (U) NONE SEEN #/HPF NONE SEEN [facility] Urine sediment crystal ident ification by light microscopyon 06-07-2023 Crystals LM Nom (Urine sed) None Seen #/HPF None Seen [facility] Urine sediment leukocyte cou nt by microscopy (number/high power field)on 06-07-2023 WBC LM.HPF (Urine sed) [#/Area] 0-2 #/HPF NONE SEEN [facility] XR Ankle - right 3 Viewson 0 [...] ELECTRONICALLY SIGNED BY: Diaz De Oliveira DO [facility] Radiology Study observation (narrative) [facility] XR Ankle - right 3 ViewsOrde red By: Diaz De Oliveira on 05-06-2023 [facility] Jeeves e Work Phone: .eGFRon 02-01-2023 Estimated GFR 24 mL/min/1.73m? Low >=60 [facility] Comment on above: Result Comment: [facility] have implemented the eGFR [...] 1 Age = years Performed By: #### C [id number] #### [address] [address] CBC w/ Diffon 02-01-2023 Erythrocyte distribution width (RBC) [Ratio] 16.2 % High 11.6-14.8 [facility] Comment on above: Performed By: #### C BC #### [address] [address] Hematocrit (Bld) [Volume fraction] 29.5 % Low 41.0-53.0 [facility] Comment on above: Performed By: #### C BC #### [address] [address] Hemoglobin (Bld) [Mass/Vol] 10.2 g/dL Low 13.5-17.5 [facility] Comment on above: Performed By: #### C BC #### [address] [address] MCH (RBC) [Entitic mass] 30.2 pg Normal 27.0-35.0 [facility] Comment on above: Performed By: #### C BC #### [address] [address] MCHC 34.5 % Normal 31.0-37.0 [facility] Comment on above: Performed By: #### C BC #### [address] [address] MCV (RBC) [Entitic vol] 87.5 fL Normal 80.0-100.0 [facility] Comment on above: Performed By: #### C BC #### [address] [address] Platelet 151 x10*3/mcL Normal 150-450 [facility] Comment on above: Performed By: #### C BC #### [address] [address] Platelet mean volume (Bld) [Entitic vol] 7.2 fL Normal 6.7-10.6 [facility] Comment on above: Performed By: #### C BC #### [address] [address] RBC 3.37 x10*6/mcL Low 4.30-5.80 [facility] Comment on above: Performed By: #### C BC #### [address] [address] WBC 10.6 x10*3/mcL Normal 4.5-11.0 [facility] Comment on above: Performed By: #### C BC #### [address] [address] CMPon 02-01-2023 Albumin [Mass/Vol] 3.3 g/dL Normal 3.2-4.9 [facility] Comment on above: Performed By: #### C BC #### [address] [address] Albumin/Globulin [Mass ratio] 1.2 {ratio} Normal 1.1-2.2 [facility] Comment on above: Performed By: #### C BC #### [address] [address] Alk Phos 100 IU/L High 32-91 [facility] Comment on above: Performed By: #### C BC #### [address] [address] ALT [Catalytic activity/Vol] 15 U/L Low 17-63 [facility] Comment on above: Performed By: #### C BC #### [address] [address] Anion gap [Moles/Vol] 11 mmol/L Normal 7-17 [facility] Comment on above: Performed By: #### C BC #### [address] [address] AST [Catalytic activity/Vol] 17 U/L Normal 15-41 [facility] Comment on above: Performed By: #### C BC #### [address] [address] Bili Total 0.5 mg/dL Normal 0.3-1.2 [facility] Comment on above: Performed By: #### C BC #### [address] [place] [address] Calcium [Mass/Vol] 8.0 mg/dL Low 8.5-10.3 [facility] Comment on above: Performed By: #### C BC #### [address] [address] Chloride [Moles/Vol] 107 mmol/L Normal 98-110 [facility] Comment on above: Performed By: #### C BC #### [address] [place] [address] CO2 [Moles/Vol] 20 mmol/L Low 22-32 [facility] Comment on above: Performed By: #### C BC #### [address] [address] Creatinine [Mass/Vol] 2.68 mg/dL High 0.61-1.24 [facility] Comment on above: Performed By: #### C BC #### [address] [place] [address] Glucose [Mass/Vol] 268 mg/dL High 70-99 [facility] Comment on above: Performed By: #### C BC #### [address] [place] [address] Potassium [Moles/Vol] 5.3 mmol/L High 3.4-4.8 [facility] Comment on above: Performed By: #### C BC #### [address] [place] [address] Protein [Mass/Vol] 6.1 g/dL Low 6.5-8.1 [facility] Comment on above: Performed By: #### C BC #### [address] [place] [address] Sodium [Moles/Vol] 133 mmol/L Normal 133-142 [facility] Comment on above: Performed By: #### C BC #### [address] [place] [address] Urea nitrogen [Mass/Vol] 67 mg/dL High 8-26 [facility] Comment on above: Performed By: #### C BC #### [address] [address] Urea nitrogen/Creatinine [Mass ratio] 25.0 mg/mg High 10.0-20.0 [facility] Comment on above: Performed By: #### C BC #### [address] [address] Diff Autoon 02-01-2023 Baso Absolute 0.0 x10*3/mcL Normal 0.0-0.2 [facility] Comment on above: Performed By: #### C [id number] #### [address] [address] Basophils/100 WBC (Bld) 0.3 % Normal 0.0-1.2 [facility] Comment on above: Performed By: #### C [id number] #### [address] [address] Eos Absolute 0.0 x10*3/mcL Normal 0.0-0.4 [facility] Comment on above: Performed By: #### C [id number] #### [address] [address] Eosinophils/100 WBC (Bld) 0.0 % Normal 0.0-6.1 [facility] Comment on above: Performed By: #### C [id number] #### [address] [address] Lymph Absolute 0.3 x10*3/mcL Low 1.0-4.8 [facility] Comment on above: Performed By: #### C [id number] #### [address] [address] Lymphocytes/100 WBC (Bld) 3.2 % Low 27.2-40.8 [facility] Comment on above: Performed By: #### C [id number] #### [address] [address] Hale Absolute 0.2 x10*3/mcL Low 0.3-1.1 [facility] Comment on above: Performed By: #### C [id number] #### [address] [address] Monocytes/100 WBC (Bld) 2.1 % Low 4.7-13.9 [facility] Comment on above: Performed By: #### C [id number] #### [address] [address] Neutro Absolute 10.0 x10*3/mcL High 1.8-7.7 [facility] Comment on above: Performed By: #### C [id number] #### [address] [address] Neutro Auto 94.4 % High 47.2-70.8 [facility] Comment on above: Performed By: #### C [id number] #### [address] [address] Diff Yoli 02-01-2023 Anisocyte Slight Normal [facility] Comment on above: Performed By: #### . Manual Diff #### [address] [address] Band form neutrophils/100 WBC (Bld) 0 % Normal 0-5 [facility] Comment on above: Performed By: #### . Manual Diff #### [address] [address] Basophils/100 WBC (Bld) 0 % Normal 0-3 [facility] Comment on above: Performed By: #### . Manual Diff #### [address] [address] Eosinophils/100 WBC (Bld) 0 % Normal 0-7 [facility] Comment on above: Performed By: #### . Manual Diff #### [address] [address] Lymphocytes/100 WBC (Bld) 2 % Low 14-42 [facility] Comment on above: Performed By: #### . Manual Diff #### [address] [address] Monocytes/100 WBC (Bld) 2 % Normal 1-11 [facility] Comment on above: Performed By: #### . Manual Diff #### [address] [address] Myelo Man 1 % High 0-0 [facility] Comment on above: Performed By: #### . Manual Diff #### [address] [address] Platelet estimate Adequate Normal [facility] Comment on above: Performed By: #### . Manual Diff #### [address] [address] Segs Man 95 % High 49-79 [facility] Comment on above: Performed By: #### . Manual Diff #### [place] [id number] Hgb A1con 02-01-2023 Glucose [Mass/Vol] 114 mg/dL Normal 68-114 [facility] Comment on above: Result Comment: Math ematical Calc approx. The mean gluc equivalency of A1c Performed By: #### C [id number] #### [address] [address] Hgb A1c 5.6 % A1c Normal 4.0-5.6 [facility] Comment on above: Result Comment: Refe rence Range: 4.0 - 5.6 % Normal 5.7 - 6.4 % Pre-Diabetes > 6.5 % Diabetes Performed By: #### C [id number] #### [address] [address] Inpatient Clinical Summaryon 02-01-2023 Inpatient Clinical Summary [address] [address] Clinical Summary Person Information Name: Omer Santos Age: 72 Years : 1950 Sex: Male PCP: Ruben Luo MD Marital Status: Single Phone: PCP: [phone] Race: White Ethnicity: Not or Language: German Visit Id: Visit Reason: Speciality: Acuity: Enc Type: Observation Med Service: Surgery Arrival: 01/31/2023 08:47:46 Discharge: Dispo Type: Address: [address] [place] [phone] Diagnosis: Discharged To: Home Treatments: Devices/Equipment: Professional [...] range between ( 27.2 and 40.8 ) Hale Auto: 2.1 % -- Normal range between [...] range between ( 41.0 and 53.0 ) Hale Absolute: 0.2 x10 MCH: 30.2 pg -- [...] [place] (more content not included)... Normal [facility] Magnesiumon 02-01-2023 Magnesium [Mass/Vol] 1.7 mg/dL Normal 1.7-2.4 [facility] Comment on above: Performed By: #### C [id number] #### [address] [address] Orthopedic Progress Noteon 1 Orthopedic Progress Note [...] BP at pre-op baseline) Electronically signed by Leroy-Gabe Bernal MD, Jr 02/01/23 07:03 EDT Normal [facility] POC Glucose Randomon 023 Glucose [Mass/Vol] 281 mg/dL High 70-99 [facility] Comment on above: Performed By: #### C [id number] #### [address] [address] Glucose [Mass/Vol] 352 mg/dL High 70-99 [facility] Comment on above: Performed By: #### C [id number] #### [address] [address] Phosphoruson 02-01-2023 Phosphate [Mass/Vol] 4.8 mg/dL High 2.5-4.6 [facility] Comment on above: Performed By: #### C BC #### [address] [address] Potassiumon 02-01-2023 Potassium [Moles/Vol] 5.6 mmol/L High 3.4-4.8 [facility] Comment on above: Performed By: #### C BC #### [address] [address] .eGFRon 01-31-2023 Estimated GFR 26 mL/min/1.73m? Low >=60 [facility] Comment on above: Order Comment: Order added by Discern rule Result Comment: [facility] have implemented the eGFR [...] 1 Age = years Performed By: #### C BC #### [address] [address] Basic Metabolic Profileon Anion gap [Moles/Vol] 14 mmol/L Normal 7-17 [facility] Comment on above: Performed By: #### C [id number] #### [address] [address] Calcium [Mass/Vol] 9.0 mg/dL Normal 8.5-10.3 [facility] Comment on above: Performed By: #### C [id number] #### [address] [address] Chloride [Moles/Vol] 111 mmol/L High 98-110 [facility] Comment on above: Performed By: #### C [id number] #### [address] [address] CO2 [Moles/Vol] 21 mmol/L Low 22-32 [facility] Comment on above: Performed By: #### C [id number] #### [address] [address] Creatinine [Mass/Vol] 2.56 mg/dL High 0.61-1.24 [facility] Comment on above: Performed By: #### C [id number] #### [address] [address] Glucose [Mass/Vol] 154 mg/dL High 70-99 [facility] Comment on above: Performed By: #### C [id number] #### [address] [place] [address] Potassium [Moles/Vol] 5.7 mmol/L High 3.4-4.8 [facility] Comment on above: Performed By: #### C [id number] #### [address] [address] Sodium [Moles/Vol] 140 mmol/L Normal 133-142 [facility] Comment on above: Performed By: #### C [id number] #### [address] [address] Urea nitrogen [Mass/Vol] 67 mg/dL High 8-26 [facility] Comment on above: Performed By: #### C [id number] #### [address] [address] Urea nitrogen/Creatinine [Mass ratio] 26.2 mg/mg High 10.0-20.0 [facility] Comment on above: Performed By: #### C [id number] #### [address] [address] Consultation Note - Generico n 01-31-2023 Consultation Note - Generic Chief Complaint SCHEDULED FOR CERVICAL SPINE FUSION/ACDF 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 Gabe Harris [...] 2.5, no baseline labs available, Nephrology [facility]) HTN, BP stable Anemia of chronic [...] GFR 20s . Followed by Nephrology at [facility] in [place]. Prior history of hyperkalemia, on low K/renal [...] Oral, BID (more content not included)... Normal [facility] XR Spine Cervical 2 or 3 [...] Electronically Signed in Other Vendor System) Normal [facility] MRSA, DNA, Nasalon MRSA, DNA, Nasal POSITIVE: MRSA DNA detected by nucleic acid amplification. Abnormal NEG [facility] Comment on above: Result Comment: Results should be used as an adjunct to nosocomial control efforts to identify patients needing enhanced precautions. The test is not intended to identify patients with staphylococcal infections. Results should not be used to guide or monitor treatment for MRSA infections. Performed By: #### B MP, PT, PTT, CBC #### [address] [place] [address] Bilingual Inside Sales Representative: Dave Dawn MD #### GLYHGB #### [address] [id number] Bilingual Inside Sales Representative: Faustino Patel MD #### MRSANO #### [address] [id number] [employer]ilingual [employer] Sales Representative: Faustino Patel MD [address] [place] [address] Bilingual Inside Sales Representative: Dave Dawn MD APTTon 01-11-2023 aPTT Coag (Bld) [Time] 29.2 s Normal 26.8-34.8 [facility] Comment on above: Result Comment: IV Heparin Therapy Range: 62.0-94.0 Performed By: #### B MP, PT, PTT, CBC #### [address] [place] [address] Bilingual Inside Sales Representative: Dave Dawn MD #### GLYHGB #### [address] [address] Bilingual Inside Sales Representative: Faustino Patel MD #### MRSANO #### [address] [address] Bilingual Inside Sales Representative: Faustino Patel MD [address] [place] [address] Bilingual Inside Sales Representative: Dave Dawn MD Basic Metabolic Profon 01-11 Anion gap [Moles/Vol] 11 mmol/L Normal 9-17 [facility] Comment on above: Performed By: #### B MP, PT, PTT, CBC #### [address] [place] [address] Bilingual Inside Sales Representative: Dave Dawn MD #### GLYHGB #### [address] [address] Bilingual Inside Sales Representative: Faustino Patel MD #### MRSANO #### [address] [address] Bilingual Inside Sales Representative: Faustino Patel MD [address] [place] [address] Bilingual Inside Sales Representative: Dave Dawn MD BUN/CRE Ratio 23 High 9-20 [facility] Comment on above: Performed By: #### B MP, PT, PTT, CBC #### [address] [place] [address] Bilingual Inside Sales Representative: Dave Dawn MD #### GLYHGB #### [address] [address] Bilingual Inside Sales Representative: Faustino Patel MD #### MRSANO #### [facility] [address] [place] [address] Bilingual Inside Sales Representative: Faustino Patel MD [address] [place] [address] Bilingual Inside Sales Representative: Dave Dawn MD Calcium [Mass/Vol] 9.3 mg/dL Normal 8.6-10.4 [facility] Comment on above: Performed By: #### B MP, PT, PTT, CBC #### [address] [place], [place] [id number] Bilingual Inside Sales Representative: Dave Dawn MD #### GLYHGB #### [address] [address] Bilingual Inside Sales Representative: Faustino Patel MD #### MRSANO #### [address] [address] Bilingual Inside Sales Representative: Faustino Patel MD [address] [place], [place] 1545083 Bilingual Inside Sales Representative: Dave Dawn MD Chloride [Moles/Vol] 107 mmol/L Normal 98-107 [facility] Comment on above: Performed By: #### B MP, PT, PTT, CBC #### [address] [place] [address] Bilingual Inside Sales Representative: Dave Dawn MD #### GLYHGB #### [facility] [address] [place] [address] Bilingual Inside Sales Representative: Faustino Patel MD #### MRSANO #### [facility] [address] [place] [address] Bilingual Inside Sales Representative: Faustino Patel MD [address] [place], [place] [id number] Bilingual Inside Sales Representative: Dave Dawn MD CO2 [Moles/Vol] 24 mmol/L Normal 20-31 [facility] Comment on above: Performed By: #### B MP, PT, PTT, CBC #### [address] [place] [address] Bilingual Inside Sales Representative: Dave Dawn MD #### GLYHGB #### [address] [address] Bilingual Inside Sales Representative: Faustino Patel MD #### MRSANO #### [address] [address] Bilingual Inside Sales Representative: Faustino Patel MD [address] [place] [address] Bilingual Inside Sales Representative: Dave Dawn MD Creatinine [Mass/Vol] 3.3 mg/dL High 0.7-1.2 [facility] Comment on above: Performed By: #### B MP, PT, PTT, CBC #### [address] [place] [address] Bilingual Inside Sales Representative: Dave Dawn MD #### GLYHGB #### [address] [address] Bilingual Inside Sales Representative: Faustino Patel MD #### MRSANO #### [address] [address] Bilingual Inside Sales Representative: Faustino Patel MD [address] [place] [address] Bilingual Inside Sales Representative: Dave Dawn MD GFR/1.73 sq M.predicted among non-blacks MDRD (S/P/Bld) [Vol rate/Area] 19 mL/min/{1.73_m2} Low >60 [facility] Comment on above: Result Comment: [...] #### B MP, PT, PTT, CBC #### [address] [place] [address] Bilingual Inside Sales Representative: Dave Dawn MD #### GLYHGB #### [address] [address] Bilingual Inside Sales Representative: Faustion Patel MD #### MRSANO #### [address] [address] Bilingual Inside Sales Representative: Faustino Patel MD [address] [place] [address] Bilingual Inside Sales Representative: Dave Dawn MD Glucose [Mass/Vol] 61 mg/dL Low 70-99 [facility] Comment on above: Performed By: #### B MP, PT, PTT, CBC #### [address] [place] [address] Bilingual Inside Sales Representative: Dave Dawn MD #### GLYHGB #### [address] [address] Bilingual Inside Sales Representative: Faustino Patel MD #### MRSANO #### [address] [address] Bilingual Inside Sales Representative: Faustino Patel MD [address] [place] [address] Bilingual Inside Sales Representative: Dave Dawn MD Potassium [Moles/Vol] 4.9 mmol/L Normal 3.7-5.3 [facility] Comment on above: Performed By: #### B MP, PT, PTT, CBC #### [address] [place] [address] Bilingual Inside Sales Representative: Dave Dawn MD #### GLYHGB #### [address] [address] [place] [address] Bilingual Inside Sales Representative: Faustino Patel MD #### MRSANO #### [facility] [address] [place] [address] Bilingual Inside Sales Representative: Faustino Patel MD [facility] [address] [place] [address] [address] [place], [place] 1827383 Bilingual Inside Sales Representative: Dave Dawn MD Sodium [Moles/Vol] 142 mmol/L Normal 135-144 [facility] Comment on above: Performed By: #### B MP, PT, PTT, CBC #### [address] [place], [place] 8[address]83 Bilingual Inside Sales Representative: Dave Dawn MD #### GLYHGB #### [address] [address] Bilingual Inside Sales Representative: Faustino Patel MD #### MRSANO #### [address] [address] Bilingual Inside Sales Representative: Faustino Patel MD [facility] [address] [place] [address] [address] [place], [place] [id number] Bilingual Inside Sales Representative: aDve Dawn MD Urea nitrogen [Mass/Vol] 75 mg/dL High 8-23 [facility] Comment on above: Performed By: #### B MP, PT, PTT, CBC #### [address] [place] [address] Bilingual Inside Sales Representative: Dave Dawn MD #### GLYHGB #### [facility] [address] [place] [address] Bilingual Inside Sales Representative: Faustino Patel MD #### MRSANO #### [facility] [address] [place] [address] Bilingual Inside Sales Representative: Faustino Patel MD [facility] [address] [place] [address] [address] [place], [place] [phone] Bilingual Inside Sales Representative: Dave Dawn MD CBCon 01-11-2023 Erythrocyte distribution width (RBC) [Ratio] 13.3 % Normal 11.8-14.4 [facility] Comment on above: Performed By: #### B MP, PT, PTT, CBC #### [address] [place], [place] [id number] Bilingual Inside Sales Representative: Dave Dawn MD #### GLYHGB #### [address] [address] Bilingual Inside Sales Representative: Faustino Patel MD #### MRSANO #### [address] [address] Bilingual Inside Sales Representative: Faustino Patel MD [address] [place], [place] 9264083 Bilingual Inside Sales Representative: Dave Dawn MD Hematocrit (Bld) [Volume fraction] 28.9 % Low 40.7-50.3 [facility] Comment on above: Performed By: #### B MP, PT, PTT, CBC #### [address] [place], [place] [id number] Bilingual Inside Sales Representative: Dave Dawn MD #### GLYHGB #### [address] [address] Bilingual Inside Sales Representative: Faustino Patel MD #### MRSANO #### [address] [address] Bilingual Inside Sales Representative: Faustino Patel MD [address] [place], [place] [address] Bilingual Inside Sales Representative: Dave Dawn MD Hemoglobin (Bld) [Mass/Vol] 9.6 g/dL Low 13.0-17.0 [facility] Comment on above: Performed By: #### B MP, PT, PTT, CBC #### [address] [place], [place] 6951583 Bilingual Inside Sales Representative: Dave Dawn MD #### GLYHGB #### [facility] [address] [place] [address] Bilingual Inside Sales Representative: Faustino Patel MD #### MRSANO #### [facility] [address] [place] [address] Bilingual Inside Sales Representative: Faustino Patel MD [address] [place], [place] 2510083 Bilingual Inside Sales Representative: Dave Dawn MD MCH (RBC) [Entitic mass] 30.0 pg Normal 25.2-33.5 [facility] Comment on above: Performed By: #### B MP, PT, PTT, CBC #### [address] [place], [place] 908[address]83 Bilingual Inside Sales Representative: Dave Dawn MD #### GLYHGB #### [address] [address] Bilingual Inside Sales Representative: Faustino Patel MD #### MRSANO #### [address] [address] Bilingual Inside Sales Representative: Faustino Patel MD [address] [place] [address] Bilingual Inside Sales Representative: Dave Dawn MD MCHC (RBC) [Mass/Vol] 33.2 g/dL Normal 28.4-34.8 [facility] Comment on above: Performed By: #### B MP, PT, PTT, CBC #### [address] [place] [address] Bilingual Inside Sales Representative: Dave Dawn MD #### GLYHGB #### [address] [address] Bilingual Inside Sales Representative: Faustino Patel MD #### MRSANO #### [address] [address] Bilingual Inside Sales Representative: Faustino Patel MD [facility] [address] [place] [address] Dr[place] [phone] Bilingual Inside Sales Representative: Dave Dawn MD MCV (RBC) [Entitic vol] 90.3 fL Normal 82.6-102.9 [facility] Comment on above: Performed By: #### B MP, PT, PTT, CBC #### [address] [place] [address]1883 Bilingual Inside Sales Representative: Dave Dawn MD #### GLYHGB #### [address] [address] Bilingual Inside Sales Representative: Faustino Patel MD #### MRSANO #### [address] [address] Bilingual Inside Sales Representative: Faustino Patel MD [address] [place] [address] Bilingual Inside Sales Representative: Dave Dawn MD NRBC Automated 0.0 per 100 WBC Normal 0.0 [facility] Comment on above: Performed By: #### B MP, PT, PTT, CBC #### [address] [place] [address]83 Bilingual Inside Sales Representative: Dave Dawn MD #### GLYHGB #### [address] [address] Bilingual Inside Sales Representative: Faustino Patel MD #### MRSANO #### [address] [address] Bilingual Inside Sales Representative: Faustino Patel MD [address] [place] [address]83 Bilingual Inside Sales Representative: Dave Dawn MD Platelet mean volume (Bld) [Entitic vol] 8.6 fL Normal 8.1-13.5 [facility] Comment on above: Performed By: #### B MP, PT, PTT, CBC #### [address] [place] [address] Bilingual Inside Sales Representative: Dave Dawn MD #### GLYHGB #### [facility] [address] [place] [address] Bilingual Inside Sales Representative: Faustino Patel MD #### MRSANO #### [facility] [address] [place] [address] Bilingual Inside Sales Representative: Faustino Patel MD [address] [place] [address] Bilingual Inside Sales Representative: Dave Dawn MD Platelets (Bld) [#/Vol] 191 10*3/uL Normal 138-453 [facility] Comment on above: Performed By: #### B MP, PT, PTT, CBC #### [address] [place] [address] Bilingual Inside Sales Representative: Dave Dwan MD #### GLYHGB #### [address] [address] Bilingual Inside Sales Representative: Faustino Patel MD #### MRSANO #### [address] [address] Bilingual Inside Sales Representative: Faustino Patel MD [address] [place] [address] Bilingual Inside Sales Representative: Dave Dawn MD RBC (Bld) [#/Vol] 3.20 10*6/uL Low 4.21-5.77 [facility] Comment on above: Performed By: #### B MP, PT, PTT, CBC #### [address] [place] [address] Bilingual Inside Sales Representative: Dave Dawn MD #### GLYHGB #### [address] [address] Bilingual Inside Sales Representative: Faustino Patel MD #### MRSANO #### [address] [address] Bilingual Inside Sales Representative: Faustino Patel MD [address] [place] [address] Bilingual Inside Sales Representative: Dave Dawn MD WBC (Bld) [#/Vol] 7.4 10*3/uL Normal 3.5-11.3 [facility] Comment on above: Performed By: #### B MP, PT, PTT, CBC #### [address] [place] [address] Bilingual Inside Sales Representative: Dave Dawn MD #### GLYHGB #### [facility] [address] [place] [address] Bilingual Inside Sales Representative: Faustino Patel MD #### MRSANO #### [address] [address] Bilingual Inside Sales Representative: Faustino Patel MD [address] [place] [address] Bilingual Inside Sales Representative: Dave Dawn MD Hemoglobin A1Con 01-11-2023 Glucose [Mass/Vol] 80 mg/dL Normal [facility] Comment on above: Result Comment: The ADA and AACC recommend providing the estimated average glucose result to permit better patient understanding of their HBA1c result. Performed By: #### B MP, PT, PTT, CBC #### [address] [place] [address] Bilingual Inside Sales Representative: Dave Dawn MD #### GLYHGB #### [facility] [address] [place] [address] Bilingual Inside Sales Representative: Faustino Patel MD #### MRSANO #### [facility] [address] [place] [address] Bilingual Inside Sales Representative: Faustino Patel MD [address] [place], [place] [phone] Bilingual Inside Sales Representative: Dave Dawn MD HbA1c (Bld) [Mass fraction] 4.4 % Normal 4.0-6.0 [facility] Comment on above: Performed By: #### B MP, PT, PTT, CBC #### [address] [place] [address] Bilingual Inside Sales Representative: Dave Dawn MD #### GLYHGB #### [address] [address] Bilingual Inside Sales Representative: Faustino Patel MD #### MRSANO #### [address] [address] Bilingual Inside Sales Representative: Faustino Patel MD [address] [place] [address] Bilingual Inside Sales Representative: Dave Dawn MD MRSA, DNA, Nasalon 3 Specimen Description .NASAL SWAB Normal [facility] Comment on above: Performed By: #### B MP, PT, PTT, CBC #### [address] [place] [address] Bilingual Inside Sales Representative: Dave Dawn MD #### GLYHGB #### [facility] [address] [place] [address] Bilingual Inside Sales Representative: Faustino Patel MD #### MRSANO #### [address] [address] Bilingual Inside Sales Representative: Faustino Patel MD [address] [place] [address] Bilingual Inside Sales Representative: Dave Dawn MD PTon 0 INR Coag (PPP) [Relative time] 1.2 {INR} Normal [facility] Comment on above: Result Comment: Therapeutic Range: Moderate Anticoagulant Intensity: INR = 2.0-3.0 High Anticoagulant Intensity: INR = 2.5-3.5 Performed By: #### B MP, PT, PTT, CBC #### [address] [place], [place] 6695783 Bilingual Inside Sales Representative: Dave Dawn MD #### GLYHGB #### [address] [address] Bilingual Inside Sales Representative: Faustino Patel MD #### MRSANO #### [address] [address] Bilingual Inside Sales Representative: Faustino Patel MD [address] [place] [address]83 Bilingual Inside Sales Representative: Dave Dawn MD PT Coag (PPP) [Time] 15.2 s High 11.9-14.8 [facility] Comment on above: Performed By: #### B MP, PT, PTT, CBC #### [address] [place] [address]1883 Bilingual Inside Sales Representative: Dave Dawn MD #### GLYHGB #### [address] [address] Bilingual Inside Sales Representative: Faustino Patel MD #### MRSANO #### [address] [address] Bilingual Inside Sales Representative: Faustino Patel MD [address] [place] [phone] Bilingual Inside Sales Representative: Dave Dawn MD XR CHEST (2 VW)on [...] Veronica MD - Fax Final result Normal [facility] Provider Letteron 01-09-2023 Provider Letter Ruben Luo MD [address] [place] [id number] Re: Omer Santos Date of Visit: 01/08/2023 [...] questions or concerns. Sincerely, Domenic Roca MD, [facility] Otolaryngology Head & Ne[facility] [place] [address] Tel.: [phone] Email: [email or web address] CC Providers: The following document(s) were included in the letter: January 08, 2023 15:00:00 EDT - (01/08/2023) ENT Office Visit Note Normal [facility] Otolaryngology Office/Clinic Noteon 01-08-2023 Otolaryngology Office/Clinic [...] No hoarseness appreciated. Procedure: Flexible fiberoptic laryngoscopy ([address]) Preoperative diagnosis: History of right CEA, evaluate [...] separately billable services. New patient level 3 [id number] added for flexible nasolaryngoscopy Physician Comments This [...] 40 mg (more content not included)... Normal [facility] CT CERVICAL SPINE WO CONTRAS Ton [...] Pascale Albarado MD 12/29/22 Final result Normal [facility] FERRITINon 08-10-2022 Ferritin [Mass/Vol] 214.0 ng/mL Normal 26.0-388.0 [facility] Comment on above: Performed By: #### P THINT #### [facility] [address] [place] [address] Dr. Sarah Sánchez HEMOGRAM AND PLATELon 2022 Hematocrit (Bld) [Volume fraction] 24.3 % Critically low 42.0-54.0 [facility] Comment on above: Performed By: #### C VDTB #### [facility] [address] [place] [address] Dr. Sarah Sánchez Hemoglobin (Bld) [Mass/Vol] 8.0 g/dL Critically low 14.0-18.0 [facility] Comment on above: Performed By: #### C VDTBH #### [facility] [address] [place] [address] [address] Sarah Sánchez MCH (RBC) [Entitic mass] 29.7 pg Normal 25.9-34.0 [facility] Comment on above: Performed By: #### C VDTBH #### [facility] [address] [place] [address] Dr. Sarah Sánchez MCHC (RBC) [Mass/Vol] 32.9 g/dL Normal 29.9-35.2 [facility] Comment on above: Performed By: #### C VDTBH #### [facility] [address] [place] [address] Dr. Sarah Sánchez MCV (RBC) [Entitic vol] 90.3 fL Normal 80.0-94.0 [facility] Comment on above: Performed By: #### C VDTBH #### [facility] [address] [place] [address] Dr. Sarah Sánchez PLT 215 103/ul Normal 150-450 [facility] Comment on above: Performed By: #### C VDTBH #### [facility] [address] [place] [address] Dr. Sarah Sánchez RBC 2.69 106/ul Critically low 4.70-6.10 [facility] Comment on above: Performed By: #### C VDTBH #### [facility] [address] [place] [address] Dr. Sarah Sánchez WBC 7.3 103/ul Normal 4.0-11.0 [facility] Comment on above: Performed By: #### C VDTBH #### [facility] [address] [place] [address] Dr. Sarah Sánchez IRON AND TIBCon 08-10-2022 % SATURATION 23.5 % Normal [facility] Comment on above: Performed By: #### P THINT #### [facility] [address] [place] [address] Dr. Sarah Sánchez Iron [Mass/Vol] 54.0 ug/dL Critically low 65.0-175.0 [facility] Comment on above: Performed By: #### P THINT #### [facility] [address] [place] [address] Dr. Sarah Sánchez TIBC DIRECT 230.0 ug/dL Critically low 250.0-450.0 [facility] Comment on above: Performed By: #### P THINT #### [facility] [address] [place] [address] Dr. aSrah Sánchez MAGNESIUMon 08-10-2022 Magnesium [Mass/Vol] 1.7 mg/dL Critically low 1.8-2.4 [facility] Comment on above: Performed By: #### C VDTBH #### [facility] [address] [place] [address] Dr. Sarah Sánchez RENAL FUNCTION PANELon 08-10 Albumin [Mass/Vol] 2.7 g/dL Critically low 3.4-5.[address] [facility] Comment on above: Performed By: #### C VDTBH #### [facility] [address] [place] [address] Dr. Sarah Sánchez Calcium [Mass/Vol] 8.3 mg/dL Critically low 8.5-10.[address] [facility] Comment on above: Performed By: #### C VDTBH #### [facility] [address] [place] [address] Dr. Sarah Sánchez Chloride [Moles/Vol] 106 mmol/L Normal 98-107 [facility] Comment on above: Performed By: #### C VDTBH #### [facility] [address] [place] [address] Dr. Sarah Sánchez CO2 [Moles/Vol] 29.6 mmol/L Normal 21.0-32.0 [facility] Comment on above: Performed By: #### C VDTBH #### [facility] [address] [place] [address] Dr. Sarah Sánchez Creatinine [Mass/Vol] 2.41 mg/dL Critically high 0.70-1.30 [facility] Comment on above: Performed By: #### C VDTBH #### [facility] [address] [place] [address] Dr. Sarah Sánchez EGFR-AF [place] 32 mL/min/1.73m2 Critically low >=60 [facility] Comment on above: Performed By: #### C VDTBH #### [facility] [address] [address] [address] Sarah Sánchez EGFR-NON AF [place] 27 mL/min/1.73m2 Critically low >=60 [facility] Comment on above: Performed By: #### C VDTBH #### [facility] [address] [address] [address] Sarah Sánchez Glucose [Mass/Vol] 111 mg/dL Critically high 74-106 [facility] Comment on above: Performed By: #### C VDTBH #### [facility] [address] [place] [address] Dr. Sarah Sánchez Phosphate [Mass/Vol] 4.6 mg/dL Normal 2.6-4.7 [facility] Comment on above: Performed By: #### C VDTBH #### [facility] [address] [address] [address] Sarah Sánchez Potassium [Moles/Vol] 5.2 mmol/L Critically high 3.5-5.1 [facility] Comment on above: Performed By: #### C VDTBH #### [facility] [address] [place] [address] Dr. Sarah Sánchez Sodium [Moles/Vol] 142 mmol/L Normal 136-145 [facility] Comment on above: Performed By: #### C VDTBH #### [facility] [address] [place] [address] Dr. Sarah Sánchez Urea nitrogen [Mass/Vol] 31.0 mg/dL Critically high 7.0-18.0 [facility] Comment on above: Performed By: #### C VDTBH #### [facility] [address] [place] [address] Dr. Sarah Sánchez CBC AUTO DIFFon 08-08-2022 BASO # 0.1 103/ul Normal 0.0-0.1 [facility] Comment on above: Performed By: #### H BSANS #### [facility] [address] [address] [address] Sarah Sánchez Basophils/100 WBC (Bld) 0.6 % Normal 0.2-2.0 [facility] Comment on above: Performed By: #### H BSANS #### [facility] [address] [address] [address] Sarah Sánchez EO # 0.5 103/ul Normal 0.0-0.7 [facility] Comment on above: Performed By: #### H BSANS #### [facility] [address] [place] [address] Dr. Sarah Sánchez Eosinophils/100 WBC (Bld) 6.1 % Normal 0.9-7.0 [facility] Comment on above: Performed By: #### H BSANS #### [facility] [address] [place] [address] Dr. Sarah Sánchez Erythrocyte distribution width (RBC) [Ratio] 14.0 % Normal 11.0-15.0 [facility] Comment on above: Performed By: #### H BSANS #### [facility] [address] [place] [address] Dr. Sarah Sánchez Hematocrit (Bld) [Volume fraction] 23.9 % Critically low 42.0-54.0 [facility] Comment on above: Performed By: #### H BSANS #### [facility] [address] [place] [address] Dr. Sarah Sánchez Hemoglobin (Bld) [Mass/Vol] 7.9 g/dL Critically low 14.0-18.0 [facility] Comment on above: Performed By: #### H BSANS #### [facility] [address] [place] [address] Dr. Sarah Sánchez IG # 0.08 10e3/ul Critically high 0.00-0.03 [facility] Comment on above: Performed By: #### H BSANS #### [facility] [address] [place] [address] Dr. Sarah Sánchez IG % 0.9 % Critically high 0.0-0.5 [facility] Comment on above: Performed By: #### H BSANS #### [facility] [address] [address] [address] Sarah Sánchez LYMPH # 1.1 103/ul Critically low 1.2-3.8 [facility] Comment on above: Performed By: #### H BSANS #### [facility] [address] [address] [address] Sarah Sánchez Lymphocytes/100 WBC (Bld) 11.9 % Critically low 20.5-60.0 [facility] Comment on above: Performed By: #### H BSANS #### [facility] [address] [address] [address] Sarah Sánchez MANUAL DIFF REQ NO Normal [facility] Comment on above: Performed By: #### H BSANS #### [facility] [address] [address] [address] Sarah Sánchez MCH (RBC) [Entitic mass] 30.4 pg Normal 25.9-34.0 [facility] Comment on above: Performed By: #### H BSANS #### [facility] [address] [address] [address] Sarah Sánchez MCHC (RBC) [Mass/Vol] 33.1 g/dL Normal 29.9-35.2 [facility] Comment on above: Performed By: #### H BSANS #### [facility] [address] [place] [address] Dr. Sarah Sánchez MCV (RBC) [Entitic vol] 91.9 fL Normal 80.0-94.0 [facility] Comment on above: Performed By: #### H BSANS #### [facility] [address] [address] [address] Sarah Sánchez MONO # 0.5 103/ul Normal 0.3-0.8 [facility] Comment on above: Performed By: #### H BSANS #### [facility] [address] [address] [address] Sarah Sánchez Monocytes/100 WBC (Bld) 5.5 % Normal 1.7-12.0 [facility] Comment on above: Performed By: #### H BSANS #### [facility] [address] [address] [address] Sarah Sánchez NEUT # 6.6 103/ul Critically high 1.4-6.5 [facility] Comment on above: Performed By: #### H BSANS #### [facility] [address] [address] [address] Sarah Sánchez Neutrophils/100 WBC (Bld) 75.0 % Normal 43.0-75.0 [facility] Comment on above: Performed By: #### H BSANS #### [facility] [address] [address] [address] Sarah Sánchez Platelet mean volume (Bld) [Entitic vol] 8.5 fL Critically low 9.5-13.5 [facility] Comment on above: Performed By: #### H BSANS #### [facility] [address] [address] [address] Sarah Sánchez PLT 245 103/ul Normal 150-450 [facility] Comment on above: Performed By: #### H BSANS #### [facility] [address] [address] [address] Sarah Sánchez RBC 2.60 106/ul Critically low 4.70-6.10 [facility] Comment on above: Performed By: #### H BSANS #### [facility] [address] [address] [address] Sarah Sánchez WBC 8.8 103/ul Normal 4.0-11.0 [facility] Comment on above: Performed By: #### H BSANS #### [facility] [address] [address] [address] Sarah Sánchez ANION GAPon 07-26-2022 Anion gap [Moles/Vol] 13.0 mmol/L Normal 8.0-16.0 [facility] Comment on above: Result Comment: ANIO N GAP = Sodium -(Chloride + CO2) Performed By: #### P OCGL #### [employer] [facility] [address] [place] [address] Anion Gapon 07-26-2022 Anion gap [Moles/Vol] 13.0 mmol/L 8.0 - 16.0 meq/L [facility] Comment on above: ANION GAP = Sodium - (Chloride + CO2) Performed at [facility] [address] [place] [address] BASIC METABOL PANELon 2022 Calcium [Mass/Vol] 7.7 mg/dL Low 8.5-10.5 [facility] Comment on above: Performed By: #### P OCGL #### [facility] [address] [place] [address] Chloride [Moles/Vol] 102 mmol/L Normal 98-111 [facility] Comment on above: Performed By: #### P OCGL #### [facility] [address] [place] [address] CO2 [Moles/Vol] 19 mmol/L Low 23-33 [facility] Comment on above: Performed By: #### P OCGL #### [facility] [address] [address] Creatinine [Mass/Vol] 2.4 mg/dL High 0.4-1.2 [facility] Comment on above: Performed By: #### P OCGL #### [address] [address] Glucose [Mass/Vol] 205 mg/dL High 70-108 [facility] Comment on above: Performed By: #### P OCGL #### [address] [address] Potassium [Moles/Vol] 4.8 mmol/L Normal 3.5-5.2 [facility] Comment on above: Performed By: #### P OCGL #### [facility] [address] [place] [address] Sodium [Moles/Vol] 134 mmol/L Low 135-145 [facility] Comment on above: Performed By: #### P OCGL #### [facility] [address] [address] Urea nitrogen [Mass/Vol] 65 mg/dL High 7-22 [facility] Comment on above: Performed By: #### P OCGL #### [facility] [address] [place] [address] Basic metabolic 2000 panelon 07-26-2022 Calcium [Mass/Vol] 7.7 mg/dL Low 8.5 - 10. 5 mg/dL [facility] Comment on above: Performed at [facility] Lab [address] [place] [address] Chloride [Moles/Vol] 102 mmol/L 98 - 11 1 meq/L [facility] CO2 [Moles/Vol] 19 mmol/L Low 23 - 33 meq/L [facility] Creatinine [Mass/Vol] 2.4 mg/dL High 0.4 - 1.2 mg/dL [facility] Glucose [Mass/Vol] 205 mg/dL High 70 - 108 mg/dL [facility] Potassium [Moles/Vol] 4.8 mmol/L 3.5 - 5.2 meq/L [facility] Sodium [Moles/Vol] 134 mmol/L Low 135 - 145 meq/L [facility] Urea nitrogen [Mass/Vol] 65 mg/dL High 7 - 22 mg/dL [facility] CBCon 07-26-2022 Erythrocyte distribution width (RBC) [Entitic vol] 46.2 fL High 35.0 - 45.0 fL [facility] Erythrocyte distribution width (RBC) [Ratio] 13.6 % 11.5 - 14.5 % [facility] Hematocrit (Bld) [Volume fraction] 22.9 % Low 42.0 - 52.0 % [facility] Hemoglobin (Bld) [Mass/Vol] 7.4 g/dL Low [facility] Interpretation and review of laboratory results Abnormal [facility] MCH (RBC) [Entitic mass] 30.0 pg 26.0 - 33.0 pg [facility] MCHC (RBC) [Mass/Vol] 32.3 g/dL [facility] MCV (RBC) [Entitic vol] 92.7 fL 80.0 - 94.0 fL [facility] Platelet mean volume (Bld) [Entitic vol] 9.0 fL Low 9.4 - 12.4 fL [facility] Comment on above: Performed at [facility] [address] [place] [address] Platelets (Bld) [#/Vol] 147 10*3/uL [facility] RBC (Bld) [#/Vol] 2.47 10*6/uL Low [facility] WBC (Bld) [#/Vol] 4.3 10*3/uL Low [facility] CBC NO DIFFERENTIALon 2022 Erythrocyte distribution width (RBC) [Ratio] 13.6 % Normal 11.5-14.5 [facility] Comment on above: Performed By: #### P OCGL #### [employer] [address] [address] Hematocrit (Bld) [Volume fraction] 22.9 % Low 42.0-52.0 [facility] Comment on above: Performed By: #### P OCGL #### [employer] [address] [place] [address] Hemoglobin (Bld) [Mass/Vol] 7.4 g/dL Low 14.0-18.0 [facility] Comment on above: Performed By: #### P OCGL #### [employer] [address] [place] [address] MCH (RBC) [Entitic mass] 30.0 pg Normal 26.0-33.0 [facility] Comment on above: Performed By: #### P OCGL #### [employer] [address] [place] [address] MCHC (RBC) [Mass/Vol] 32.3 g/dL Normal 32.2-35.5 [facility] Comment on above: Performed By: #### P OCGL #### [employer] [address] [place] [address] MCV (RBC) [Entitic vol] 92.7 fL Normal 80.0-94.0 [facility] Comment on above: Performed By: #### P OCGL #### [employer] [address] [place] [address] PLATELET 147 thou/mm3 Normal 130-400 [facility] Comment on above: Performed By: #### P OCGL #### [employer] [address] [address] Platelet mean volume (Bld) [Entitic vol] 9.0 fL Low 9.4-12.4 [facility] Comment on above: Performed By: #### P OCGL #### [address] [address] RBC 2.47 mill/mm3 Low 4.70-6.10 [facility] Comment on above: Performed By: #### P OCGL #### [address] [address] RDW-SD 46.2 fL High 35.0-45.0 [facility] Comment on above: Performed By: #### P OCGL #### [address] [address] WBC 4.3 thou/mm3 Low 4.8-10.8 [facility] Comment on above: Performed By: #### P OCGL #### [address] [address] GFR, ESTIMATEDon 07-26-2022 GFR/1.73 sq M.predicted MDRD (S/P/Bld) [Vol rate/Area] 28 mL/min/{1.73_m2} Abnormal >60 [facility] Comment on above: Result [...] secretion. Performed By: #### P OCGL #### [facility] [employer] [address] [address] GLUCOSE POCon 07-26-2022 Glucose [Mass/Vol] 312 mg/dL High 70-108 [facility] Comment on above: Performed By: #### H -A1C #### [address] [address] Glucose [Mass/Vol] 226 mg/dL High 70-108 [facility] Comment on above: Performed By: #### P OCGL #### [facility] [address] [place] [address] Glucose [Mass/Vol] 230 mg/dL High 70-108 [facility] Comment on above: Performed By: #### P OCGL #### [facility] [address] [place] [address] Glucose [Mass/Vol] 232 mg/dL High 70-108 [facility] Comment on above: Performed By: #### P OCGL #### [facility] [address] [place] [address] Glucose [Mass/Vol] 334 mg/dL [facility] [address] [facility] Comment on above: Performed By: #### P OCGL #### [address] [address] Glomerular Filtration Rate, Estimatedon 07-26-2022 GFR/1.73 sq M.predicted MDRD (S/P/Bld) [Vol rate/Area] 28 mL/min/{1.73_m2} Abnormal - PIN[facility] Comment on above: Pediatric calculator link https://www.kidney.org/professionals/kdoqi/gfr_calculatorped [...] that affects renal tubular secretion. Performed at [facility] [employer] [facility] [address] [address] Glucose Auto test strip (Bld ) [Mass/Vol]on 07-26-2022 Glucose [Mass/Vol] 312 mg/dL High 70 - 108 mg/dl [employer] Comment on above: Performed at [facility] [employer] [facility] [address] [place] [address] Interpretation and review of laboratory results Abnormal [facility] Glucose [Mass/Vol] 226 mg/dL High 70 - 108 mg/dl [facility] Comment on above: Performed at [facility] ion Medical Lab [address] [place] [address] Interpretation and review of laboratory results Abnormal [facility] Glucose [Mass/Vol] 230 mg/dL High 70 - 108 mg/dl [facility] Comment on above: Performed at [facility] [address] [place] [address] Interpretation and review of laboratory results Abnormal [facility] Glucose [Mass/Vol] 232 mg/dL High 70 - 108 mg/dl [facility] Comment on above: Performed at [facility] [address] [place] [address] Interpretation and review of laboratory results Abnormal [facility] No Panel Informationon 07-26 Interpretation and review of laboratory results Abnormal [facility] VL DUP LOWER EXTREMITY VENOU S BILATERALon 07-26-2022 No evidence of deep venous thrombosis in either lower extremity. This report has been created using voice recognition software. It may contain minor errors which are inherent in voice recognition technology. Final report electronically signed by Dr. Jose R Bianchi on 07/26/2022 6:[address] [facility] Jose R Dominguez MD - 07/26/2022 [...] Jose R Bianchi on 07/26/2022 6:35 PM [facility] [employer] Work Phone: Radiology Study observation (narrative) [employer] Work Phone: VL DUP LOWER EXTREMITY VENOU S BILATERALOrdered By: Jose R Bianchi on 07-26-2022 [employer] Phone: ANION GAPon 07-25-2022 Anion gap [Moles/Vol] 12.0 mmol/L Normal 8.0-16.0 [facility] Comment on above: Result Comment: ANIO N GAP = Sodium -(Chloride + CO2) Performed By: #### P OCGL #### [employer] [facility] [address] [place] [address] Anion Gapon 07-25-2022 Anion gap [Moles/Vol] 12.0 mmol/L 8.0 - 16.0 meq/L [facility] Comment on above: ANION GAP = Sodium - (Chloride + CO2) Performed at [facility] [address] [place] [address] BASIC METABOL PANELon 2022 Calcium [Mass/Vol] 7.7 mg/dL Low 8.5-10.5 [facility] Comment on above: Performed By: #### P OCGL #### [employer] [facility] [address] [place] [address] Chloride [Moles/Vol] 104 mmol/L Normal 98-111 [facility] Comment on above: Performed By: #### P OCGL #### [employer] [facility] [address] [place] [address] CO2 [Moles/Vol] 19 mmol/L Low 23-33 [facility] Comment on above: Performed By: #### P OCGL #### [employer] [facility] [address] [place] [address] Creatinine [Mass/Vol] 2.5 mg/dL High 0.4-1.2 [facility] Comment on above: Performed By: #### P OCGL #### [employer] [facility] [address] [place] [address] Glucose [Mass/Vol] 287 mg/dL High 70-108 [facility] Comment on above: Performed By: #### P OCGL #### [employer] [facility] [address] [place] [address] Potassium [Moles/Vol] 5.4 mmol/L High 3.5-5.2 [facility] Comment on above: Performed By: #### P OCGL #### [facility] [facility] [address] [place] [address] Sodium [Moles/Vol] 135 mmol/L Normal 135-145 [facility] Comment on above: Performed By: #### P OCGL #### [facility] [facility] [address] [place] [address] Urea nitrogen [Mass/Vol] 55 mg/dL High 7-22 [facility] Comment on above: Performed By: #### P OCGL #### [facility] [address] [place] [address] Basic metabolic 2000 panelon 07-25-2022 Calcium [Mass/Vol] 7.7 mg/dL Low 8.5 - 10. 5 mg/dL [facility] Comment on above: Performed at [facility] ion Medical Lab [address] [place] [address] Chloride [Moles/Vol] 104 mmol/L 98 - 11 1 meq/L [facility] SECImpero Software LimitedY HEALTH CO2 [Moles/Vol] 19 mmol/L Low 23 - 33 meq/L [facility] Creatinine [Mass/Vol] 2.5 mg/dL High 0.4 - 1.2 mg/dL [facility] Glucose [Mass/Vol] 287 mg/dL High 70 - 108 mg/dL [facility] Potassium [Moles/Vol] 5.4 mmol/L High 3.5 - 5.2 meq/L [facility] Sodium [Moles/Vol] 135 mmol/L 135 - 145 meq/L [facility] Urea nitrogen [Mass/Vol] 55 mg/dL High 7 - 22 mg/dL [facility] CBCon 07-25-2022 Erythrocyte distribution width (RBC) [Entitic vol] 45 fL 35.0 - 45.0 fL [facility] Erythrocyte distribution width (RBC) [Ratio] 13.5 % 11.5 - 14.5 % [facility] Limited[facility] Hematocrit (Bld) [Volume fraction] 23.1 % Low 42.0 - 52.0 % [facility] Hemoglobin (Bld) [Mass/Vol] 7.6 g/dL Low [facility] Interpretation and review of laboratory results Abnormal [facility] MCH (RBC) [Entitic mass] 30.2 pg 26.0 - 33.0 pg [facility] MCHC (RBC) [Mass/Vol] 32.9 g/dL [facility] MCV (RBC) [Entitic vol] 91.7 fL 80.0 - 94.0 fL [facility] Platelet mean volume (Bld) [Entitic vol] 9.1 fL Low 9.4 - 12.4 fL [facility] Comment on above: Performed at [facility] [address] [place] [address] Platelets (Bld) [#/Vol] 148 10*3/uL [facility] RBC (Bld) [#/Vol] 2.52 10*6/uL Low [facility] WBC (Bld) [#/Vol] 3.9 10*3/uL Low [facility] CBC NO DIFFERENTIALon 2022 Erythrocyte distribution width (RBC) [Ratio] 13.5 % Normal 11.5-14.5 [facility] Comment on above: Performed By: #### P OCGL #### [facility] [employer] [address] [place] [address] Hematocrit (Bld) [Volume fraction] 23.1 % Low 42.0-52.0 [facility] Comment on above: Performed By: #### P OCGL #### [employer] [address] [place] [address] Hemoglobin (Bld) [Mass/Vol] 7.6 g/dL Low 14.0-18.0 [facility] Comment on above: Performed By: #### P OCGL #### [facility] [employer] [address] [place] [address] MCH (RBC) [Entitic mass] 30.2 pg Normal 26.0-33.0 [facility] Comment on above: Performed By: #### P OCGL #### [facility] [employer] [address] [place] [address] MCHC (RBC) [Mass/Vol] 32.9 g/dL Normal 32.2-35.5 [facility] Comment on above: Performed By: #### P OCGL #### [place] [address] MCV (RBC) [Entitic vol] 91.7 fL Normal 80.0-94.0 [facility] Comment on above: Performed By: #### P OCGL #### [place] [address] PLATELET 148 thou/mm3 Normal 130-400 [facility] Comment on above: Performed By: #### P OCGL #### [place] [address] Platelet mean volume (Bld) [Entitic vol] 9.1 fL Low 9.4-12.4 [facility] Comment on above: Performed By: #### P OCGL #### [place] [address] RBC 2.52 mill/mm3 Low 4.70-6.10 [facility] Comment on above: Performed By: #### P OCGL #### [place] [address] RDW-SD 45.0 fL Normal 35.0-45.0 [facility] Comment on above: Performed By: #### P OCGL #### [place] [address] WBC 3.9 thou/mm3 Low 4.8-10.8 [facility] Comment on above: Performed By: #### P OCGL #### [place] [id number] GFR, ESTIMATEDon 07-25-2022 GFR/1.73 sq M.predicted MDRD (S/P/Bld) [Vol rate/Area] 26 mL/min/{1.73_m2} Abnormal >60 [facility] Comment on above: Result [...] secretion. Performed By: #### P OCGL #### [address] [address] GLUCOSE POCon 07-25-2022 Glucose [Mass/Vol] 342 mg/dL High [address] Comment on above: Performed By: #### P OCGL #### [address] [address] Glucose [Mass/Vol] 318 mg/dL [address] Comment on above: Performed By: #### P OCGL #### [address] [address] Glucose [Mass/Vol] 313 mg/dL [address] Comment on above: Performed By: #### P OCGL #### [address] [address] Glucose [Mass/Vol] 404 mg/dL [address] Comment on above: Performed By: #### P OCGL #### [address] [address] Glucose [Mass/Vol] 295 mg/dL [address] Comment on above: Performed By: #### P OCGL #### [address] [address] Glucose [Mass/Vol] 334 mg/dL [address] Comment on above: Performed By: #### P OCGL #### [place] [facility] [address] [place] [address] Glomerular Filtration Rate, Estimatedon 07-25-2022 GFR/1.73 sq [...] that affects renal tubular secretion. Performed at [facility] [address] [place] [address] Glucose Auto test strip (Bld ) [Mass/Vol]on 07-25-2022 Glucose [Mass/Vol] 334 mg/dL High 70 - 108 mg/dl [facility] Comment on above: Performed at [facility] [address] [place] [address] Interpretation and review of laboratory results Abnormal [facility] Glucose [Mass/Vol] 342 mg/dL High 70 - 108 mg/dl [facility] Comment on above: Performed at [facility] [address] [place] [address] Interpretation and review of laboratory results Abnormal [facility] Glucose [Mass/Vol] 318 mg/dL High 70 - 108 mg/dl [facility] Comment on above: Performed at [facility] [address] [place] [address] Interpretation and review of laboratory results Abnormal [facility] Glucose [Mass/Vol] 313 mg/dL High 70 - 108 mg/dl [facility] Comment on above: Performed at [facility] [address] [place] [address] Interpretation and review of laboratory results Abnormal [facility] Glucose [Mass/Vol] 404 mg/dL High 70 - 108 mg/dl [facility] Comment on above: Performed at [facility] [address] [place] [address] Interpretation and review of laboratory results Abnormal [facility] Glucose [Mass/Vol] 295 mg/dL High 70 - 108 mg/dl [facility] Comment on above: Performed at [facility] [address] [place] [address] Interpretation and review of laboratory results Abnormal [facility] Glucose [Mass/Vol] 334 mg/dL High 70 - 108 mg/dl [facility] Comment on above: Performed at [facility] [address] [place] [address] Interpretation and review of laboratory results Abnormal [facility] No Panel Informationon 07-25 Interpretation and review of laboratory results Abnormal [facility] XR LUMBAR SPINE (2-3 VIEWS)o n 07-25-2022 Redemonstration of laminectomies at L2-S1 with posterior fusion without acute abnormality identified. This report has been created using voice recognition software. It may contain minor errors which are inherent in voice recognition technology. Final report electronically signed by Dr. Lalo Polanco DO, MD on 07/25/2022 3:57 PM [facility] Lalo Weinstein DO - 07/25/2022 PROCEDURE: XR [...] Polanco DO, MD on 07/25/2022 3:57 PM [facility] Work Phone: Radiology Study observation (narrative) [facility] Work Phone: XR LUMBAR SPINE (2-3 VIEWS)O rdered By: Lalo Polanco on 07-25-2022 [facility] Work Phone: ANION GAPon 07-24-2022 Anion gap [Moles/Vol] 12.0 mmol/L Normal 8.0-16.0 [facility] Comment on above: Result Comment: ANIO N GAP = Sodium -(Chloride + CO2) Performed By: #### P OCGL #### [facility] [address] [place] [address] Anion Gapon 07-24-2022 Anion gap [Moles/Vol] 12.0 mmol/L 8.0 - 16.0 meq/L [facility] Comment on above: ANION GAP = Sodium - (Chloride + CO2) Performed at [facility] [address] [place] [address] BASIC METABOL PANELon 2022 Calcium [Mass/Vol] 8.0 mg/dL Low 8.5-10.5 [facility] Comment on above: Performed By: #### C BCND, ANION, EGFR1, BMP #### [place] [address] Chloride [Moles/Vol] 107 mmol/L Normal 98-111 [facility] Comment on above: Performed By: #### C BCND, ANION, EGFR1, BMP #### [place] [address] CO2 [Moles/Vol] 18 mmol/L Low 23-33 [facility] Comment on above: Performed By: #### C BCND, ANION, EGFR1, BMP #### [facility] [address] [place] [address] Creatinine [Mass/Vol] 2.8 mg/dL High 0.4-1.2 [facility] Comment on above: Performed By: #### C BCND, ANION, EGFR1, BMP #### [facility] [address] [place] [address] Glucose [Mass/Vol] 188 mg/dL High 70-108 [facility] Comment on above: Performed By: #### C BCND, ANION, EGFR1, BMP #### [facility] [address] [place] [address] Potassium [Moles/Vol] 5.6 mmol/L High 3.5-5.2 [facility] Comment on above: Performed By: #### C BCND, ANION, EGFR1, BMP #### [facility] [address] [place] [address] Sodium [Moles/Vol] 137 mmol/L Normal 135-145 [facility] Comment on above: Performed By: #### C BCND, ANION, EGFR1, BMP #### [facility] [address] [place] [address] Urea nitrogen [Mass/Vol] 41 mg/dL High 7-22 [facility] Comment on above: Performed By: #### C BCND, ANION, EGFR1, BMP #### [facility] [address] [place] [address] Basic metabolic 2000 panelon 07-24-2022 Calcium [Mass/Vol] 8.0 mg/dL Low 8.5 - 10. 5 mg/dL [facility] Comment on above: Performed at [facility] [address] [place] [address] Chloride [Moles/Vol] 107 mmol/L 98 - 11 [...] 22 mg/dL [facility] CBCon 07-24-2022 Erythrocyte distribution width (RBC) [Entitic vol] 47.8 fL High 35.0 - 45.0 fL [facility] Erythrocyte distribution width (RBC) [Ratio] 13.9 % 11.5 - 14.5 % [facility] Hematocrit (Bld) [Volume fraction] 23.5 % Low 42.0 - 52.0 % [facility] Hemoglobin (Bld) [Mass/Vol] 7.4 g/dL Low [facility] Interpretation and review of laboratory results Abnormal [facility] MCH (RBC) [Entitic mass] 29.7 pg 26.0 - 33.0 pg [facility] MCHC (RBC) [Mass/Vol] 31.5 g/dL Low [facility] MCV (RBC) [Entitic vol] 94.4 fL High 80.0 - 94.0 fL [facility] Platelet mean volume (Bld) [Entitic vol] 8.9 fL Low 9.4 - 12.4 fL [facility] Comment on above: Performed at [facility] [address] [place] [address] Platelets (Bld) [#/Vol] 132 10*3/uL [facility] RBC (Bld) [#/Vol] 2.49 10*6/uL Low [facility] WBC (Bld) [#/Vol] 4.6 10*3/uL Low [facility] CBC NO DIFFERENTIALon 2022 Erythrocyte distribution width (RBC) [Ratio] 13.9 % Normal 11.5-14.5 [facility] Comment on above: Performed By: #### C BCND, ANION, EGFR1, BMP #### [facility] [address] [place] [address] Hematocrit (Bld) [Volume fraction] 23.5 % Low 42.0-52.0 [facility] Comment on above: Performed By: #### C BCND, ANION, EGFR1, BMP #### [facility] [address] [place] [address] Hemoglobin (Bld) [Mass/Vol] 7.4 g/dL Low 14.0-18.0 [facility] Comment on above: Performed By: #### C BCND, ANION, EGFR1, BMP #### [facility] [address] [place] [address] MCH (RBC) [Entitic mass] 29.7 pg Normal 26.0-33.0 [facility] Comment on above: Performed By: #### C BCND, ANION, EGFR1, BMP #### [place] [address] MCHC (RBC) [Mass/Vol] 31.5 g/dL Low 32.2-35.5 [facility] Comment on above: Performed By: #### C BCND, ANION, EGFR1, BMP #### [place] [address] MCV (RBC) [Entitic vol] 94.4 fL High 80.0-94.0 [facility] Comment on above: Performed By: #### C BCND, ANION, EGFR1, BMP #### [place] [address] PLATELET 132 thou/mm3 Normal 130-400 [facility] Comment on above: Performed By: #### C BCND, ANION, EGFR1, BMP #### [place] [address] Platelet mean volume (Bld) [Entitic vol] 8.9 fL Low 9.4-12.4 [facility] Comment on above: Performed By: #### C BCND, ANION, EGFR1, BMP #### [place] [address] RBC 2.49 mill/mm3 Low 4.70-6.10 [facility] Comment on above: Performed By: #### C BCND, ANION, EGFR1, BMP #### [place] [address] RDW-SD 47.8 fL High 35.0-45.0 [facility] Comment on above: Performed By: #### C BCND, ANION, EGFR1, BMP #### [place] [address] WBC 4.6 thou/mm3 Low 4.8-10.8 [facility] Comment on above: Performed By: #### C BCND, ANION, EGFR1, BMP #### [place] [address] GFR, ESTIMATEDon 07-24-2022 GFR/1.73 sq M.predicted MDRD (S/P/Bld) [Vol rate/Area] 23 mL/min/{1.73_m2} Abnormal >60 [facility] Comment on above: Result [...] secretion. Performed By: #### P OCGL #### [facility] [address] [place] [address] GLUCOSE POCon 07-24-2022 Glucose [Mass/Vol] 374 mg/dL [facility] [address] Comment on above: Performed By: #### P OCGL ####[facility] [address] [place] [address] Glucose [Mass/Vol] 392 mg/dL [address] Comment on above: Performed By: #### H -A1C #### [facility] [address] [place] [address] Glucose [Mass/Vol] 391 mg/dL [address] Comment on above: Performed By: #### P OCGL #### [facility] [address] [place] [address] Glucose [Mass/Vol] 225 mg/dL [address] Comment on above: Performed By: #### P OCGL #### [facility] [address] [place] [address] Glomerular Filtration Rate, Estimatedon 07-24-2022 GFR/1.73 sq M.predicted MDRD (S/P/Bld) [Vol rate/Area] 23 mL/min/{1.73_m2} Abnormal - [facility] Comment on above: Pediatric calculator link https://www.kidney.org/professionals/kdoqi/gfr_calculatorped [...] that affects renal tubular secretion. Performed at [facility] [address] [place] [address] Glucose Auto test strip (Bld ) [Mass/Vol]on 07-24-2022 Glucose [Mass/Vol] 374 mg/dL High 70 - 108 mg/dl [facility] Comment on above: Performed at [facility] [address] [place] [address] Interpretation and review of laboratory results Abnormal [facility] Glucose [Mass/Vol] 392 mg/dL High 70 - 108 mg/dl [facility] Comment on above: Performed at [facility] [address] [place] [address] Interpretation and review of laboratory results Abnormal [facility] Glucose [Mass/Vol] 391 mg/dL High 70 - 108 mg/dl [facility] Comment on above: Performed at [facility] [address] [place] [address] Interpretation and review of laboratory results Abnormal [facility] Glucose [Mass/Vol] 225 mg/dL High 70 - 108 mg/dl [facility] Comment on above: Performed at [facility] [address] [place] [address] Interpretation and review of laboratory results Abnormal [facility] No Panel Informationon 07-24 Interpretation and review of laboratory results Abnormal [facility] POTASSIUMon 07-24-2022 Potassium [Moles/Vol] 5.0 mmol/L Normal 3.5-5.2 [facility] Comment on above: Performed By: #### P OCGL #### [employer] [address] [place] [address] Potassiumon 07-24-2022 Potassium [Moles/Vol] 5.0 mmol/L 3.5 - 5.2 meq/L [facility] Comment on above: Performed at [facility] [employer] [facility] [address] [place] [address] Potassium [Moles/Vol]on 07-07 [facility] ANION GAPon 07-23-2022 Anion gap [Moles/Vol] 11.0 mmol/L Normal 8.0-16.0 [facility] Comment on above: Result Comment: ANIO N GAP = Sodium -(Chloride + CO2) Performed By: #### B MP, EGFR1, ANION, CBCND ####[facility] [address] [place] [address] Anion Gapon 07-23-2022 Anion gap [Moles/Vol] 11.0 mmol/L 8.0 - 16.0 meq/L [facility] Comment on above: ANION GAP = Sodium - (Chloride + CO2) Performed at [facility] [address] [place] [address] BASIC METABOL PANELon 2022 Calcium [Mass/Vol] 7.5 mg/dL Low 8.5-10.5 [facility] Comment on above: Performed By: #### B MP, EGFR1, ANION, CBCND ####[employer] [address] [place] [address] Chloride [Moles/Vol] 111 mmol/L Normal 98-111 [facility] Comment on above: Performed By: #### B MP, EGFR1, ANION, CBCND ####[facility] [address] [place] [address] CO2 [Moles/Vol] 19 mmol/L Low 23-33 [facility] Comment on above: Performed By: #### B MP, EGFR1, ANION, CBCND ####[employer] [address] [place] [address] Creatinine [Mass/Vol] 2.8 mg/dL High 0.4-1.2 [facility] Comment on above: Performed By: #### B MP, EGFR1, ANION, CBCND ####[facility] [address] [place] [address] Glucose [Mass/Vol] 113 mg/dL High 70-108 [facility] Comment on above: Performed By: #### B MP, EGFR1, ANION, CBCND ####[facility] [address] [place] [address] Potassium [Moles/Vol] 4.8 mmol/L Normal 3.5-5.2 [facility] Comment on above: Performed By: #### B MP, EGFR1, ANION, CBCND ####[facility] [address] [place] [address] Sodium [Moles/Vol] 141 mmol/L Normal 135-145 [facility] Comment on above: Performed By: #### B MP, EGFR1, ANION, CBCND ####[facility] [address] [place] [address] Urea nitrogen [Mass/Vol] 30 mg/dL High 7-22 [facility] Comment on above: Performed By: #### B MP, EGFR1, ANION, CBCND ####[facility] [address] [place] [address] Basic metabolic 2000 panelon 07-23-2022 Calcium [Mass/Vol] 7.5 mg/dL Low 8.5 - 10. 5 mg/dL [facility] Comment on above: Performed at [facility] [address] [place] [address] Chloride [Moles/Vol] 111 mmol/L 98 - 11 1 meq/L [facility] CO2 [Moles/Vol] 19 mmol/L Low 23 - 33 meq/L [facility] Creatinine [Mass/Vol] 2.8 mg/dL High 0.4 - 1.2 mg/dL [facility] Glucose [Mass/Vol] 113 mg/dL High 70 - 108 mg/dL [facility] Potassium [Moles/Vol] 4.8 mmol/L 3.5 - 5.2 meq/L [facility] Sodium [Moles/Vol] 141 mmol/L 135 - 145 meq/L [facility] Urea nitrogen [Mass/Vol] 30 mg/dL High 7 - 22 mg/dL [facility] CBCon 07-23-2022 Erythrocyte distribution width (RBC) [Entitic vol] 51.9 fL High 35.0 - 45.0 fL [facility] Erythrocyte distribution width (RBC) [Ratio] 15 % High 11.5 - 14.5 % [facility] Hematocrit (Bld) [Volume fraction] 23.2 % Low 42.0 - 52.0 % [facility] Hemoglobin (Bld) [Mass/Vol] 7.6 g/dL Low [facility] Interpretation and review of laboratory results Abnormal [facility] MCH (RBC) [Entitic mass] 31.4 pg 26.0 - 33.0 pg [facility] MCHC (RBC) [Mass/Vol] 32.8 g/dL [facility] MCV (RBC) [Entitic vol] 95.9 fL High 80.0 - 94.0 fL [facility] Platelet mean volume (Bld) [Entitic vol] 8.6 fL Low 9.4 - 12.4 fL [facility] Comment on above: Performed at [facility] [address] [place] [address] Platelets (Bld) [#/Vol] 128 10*3/uL Low [facility] RBC (Bld) [#/Vol] 2.42 10*6/uL Low [facility] WBC (Bld) [#/Vol] 6.7 10*3/uL [facility] CBC NO DIFFERENTIALon 2022 Erythrocyte distribution width (RBC) [Ratio] 15.0 % High 11.5-14.5 [facility] Comment on above: Performed By: #### P OCGL #### [facility] [address] [place] [address] Hematocrit (Bld) [Volume fraction] 23.2 % Low 42.0-52.0 [facility] Comment on above: Performed By: #### P OCGL #### [facility] [address] [place] [address] Hemoglobin (Bld) [Mass/Vol] 7.6 g/dL Low 14.0-18.0 [facility] Comment on above: Performed By: #### P OCGL #### [address] [address] MCH (RBC) [Entitic mass] 31.4 pg Normal 26.0-33.0 [facility] Comment on above: Performed By: #### P OCGL #### [facility] [address] [place] [address] MCHC (RBC) [Mass/Vol] 32.8 g/dL Normal 32.2-35.5 [facility] Comment on above: Performed By: #### P OCGL #### [address] [address] MCV (RBC) [Entitic vol] 95.9 fL High 80.0-94.0 [facility] Comment on above: Performed By: #### P OCGL #### [address] [address] PLATELET 128 thou/mm3 Low 130-400 [facility] Comment on above: Performed By: #### P OCGL #### [address] [address] Platelet mean volume (Bld) [Entitic vol] 8.6 fL Low 9.4-12.4 [facility] Comment on above: Performed By: #### P OCGL #### [address] [address] RBC 2.42 mill/mm3 Low 4.70-6.10 [facility] Comment on above: Performed By: #### P OCGL #### [facility] [address] [address] RDW-SD 51.9 fL High 35.0-45.0 [facility] Comment on above: Performed By: #### P OCGL #### [address] [address] WBC 6.7 thou/mm3 Normal 4.8-10.8 [facility] Comment on above: Performed By: #### P OCGL #### [facility] [address] [address] [place] HEAD WO CONTRASTon 2022 No evidence of an acute process. This report has been created using voice recognition software. It may contain minor errors which are inherent in voice recognition technology. Final report electronically signed by Dr. Gissel Escobedo on 07/23/2022 1:[address] [facility] Gissel Steinberg MD - 07/23/2022 PROCEDURE: [...] Dr. Gissel Escobedo on 07/23/2022 1:23 PM [employer] Phone: Radiology Study observation (narrative) [employer] Phone: CT HEAD WO CONTRASTOrdered B y: Gissel Escobedo on 07-23-2022 [employer] Phone: GFR, ESTIMATEDon 07-23-2022 GFR/1.73 sq M.predicted MDRD (S/P/Bld) [Vol rate/Area] 23 mL/min/{1.73_m2} Abnormal >60 [facility] Comment on above: Result [...] By: #### B MP, EGFR1, ANION, CBCND ####[facility] [address] [place] [address] GLUCOSE POCon 07-23-2022 Glucose [Mass/Vol] 163 mg/dL High 70-108 [facility] Comment on above: Performed By: #### P OCGL #### [facility] [address] [place] [address] Glucose [Mass/Vol] 156 mg/dL High 70-108 [facility] Comment on above: Performed at [facility] [address] [place] [address] Performed By: #### P OCGL #### [address] [address] Glucose [Mass/Vol] 152 mg/dL High [address] [facility] Comment on above: Performed By: #### P OCGL #### [facility] [address] [place] [address] Glucose [Mass/Vol] 151 mg/dL High [facility]108 [facility] Comment on above: Performed By: #### P OCGL #### [facility] [employer] [address] [place] [address] Glucose [Mass/Vol] 120 mg/dL High [address] [facility] Comment on above: Performed By: #### P OCGL #### [place] Count Includes [facility] [address] [place] [address] Gas panel (BldA)on 3 Arterial patency Wrist artery --pre arterial puncture Positive [employer] Base excess Calc (Bld) [Moles/Vol] -3.9000 mmol/L Low -2.5 - 2.5 mmol/l [employer] Body site L Brach [employer] CO2 (Bld) [Partial pressure] 42 mm[Hg] [employer] COLLECTED BY: [id number] [facility] Comment on above: Performed at [facility] [address] [place] [address] [employer]ICE Cannula [facility]ICINEImpero Software LimitedAD[facility] HCO3 (Bld) [Moles/Vol] 22 mmol/L Low 23 - 28 mmol/l [facility]INE[facility] Interpretation and review of laboratory results Abnormal [facility] Oxygen (Bld) [Partial pressure] 99 mm[Hg] [facility] [employer] [facility] Oxygen/Inspired gas Respiratory system by O2 Analyzer --on ventilator 2 [facility] pH (Bld) 7.32 [pH] Low 7.35 - 7.45 [facility] Glomerular Filtration Rate, Estimatedon 07-23-2022 GFR/1.73 sq M.predicted MDRD (S/P/Bld) [Vol rate/Area] 23 mL/min/{1.73_m2} Abnormal - [facility] Comment on above: Pediatric calculator link https://www.kidney.org/professionals/kdoqi/gfr_calculatorped [...] that affects renal tubular secretion. Performed at [facility] [address] [place] [address] Glucose Auto test strip (Bld ) [Mass/Vol]on 07-23-2022 Glucose [Mass/Vol] 163 mg/dL High 70 - 108 mg/dl [facility] Comment on above: Performed at [facility] [address] [place] [address] Interpretation and review of laboratory results Abnormal [facility] Glucose [Mass/Vol] 152 mg/dL High 70 - 108 mg/dl [facility] Comment on above: Performed at [facility] [address] [place] [address] Interpretation and review of laboratory results Abnormal [facility] Glucose [Mass/Vol] 151 mg/dL High 70 - 108 mg/dl [facility] Comment on above: Performed at [employer] [facility] [address] [place] [address] Interpretation and review of laboratory results Abnormal [facility] Glucose [Mass/Vol] 120 mg/dL High 70 - 108 mg/dl [facility] Comment on above: Performed at [facility] [employer] [facility] [address] [place] [address] Interpretation and review of laboratory results Abnormal [facility] ISTAT BLOOD GASon 07-23-2022 STEVE'S TEST Positive Normal [facility] Comment on above: Performed By: #### P OCGL #### [employer] [facility] [address] [place] [address] BASE EXCESS -3.9 mmol/l Low -2.5-2.5 [facility] Comment on above: Performed By: #### P OCGL #### [employer] [address] [place] [address] COLLECTED BY [id number] [place] [facility] Comment on above: Performed By: #### P OCGL #### [employer] [facility] [address] [place] [address] 24263 DEVICE Cannula [facility] Comment on above: Performed By: #### P OCGL #### New [facility] [address] [place] [address] 20469 FIO2 2 [facility] Comment on above: Performed By: #### P OCGL #### [facility] [address] [place] [address] 86465 HCO3 (Bld) [Moles/Vol] 22 mmol/L Low 23-28 [facility] Comment on above: Performed By: #### P OCGL #### [facility] [address] [place] [address] 71669 Oxygen (Bld) [Partial pressure] 99 mm[Hg] Normal 71-104 [facility] Comment on above: Performed By: #### P OCGL #### [facility] [address] [place] [address] 99153 Oxygen saturation in Blood 97 % [facility] Comment on above: Performed By: #### P OCGL #### [facility] [address] [place] [address] 72506 PCO2 42 mmhg Normal 35-45 [facility] Comment on above: Performed By: #### P OCGL #### [facility] [address] [place] [address] 61776 pH (Bld) 7.32 [pH] Low 7.35-7.45 [facility] Comment on above: Performed By: #### P OCGL #### [facility] [address] [place] [address] 15840 SITE L Brach Normal [facility] Comment on above: Performed By: #### P OCGL #### [employer] [address] [place] [address] No Panel Informationon 07-23 Interpretation and review of laboratory results Abnormal [facility] URINALYSIS W/ MICROon 2022 CASTS >15 C.GRAN Normal NONE SEEN [facility] Comment on above: Performed By: #### P OCGL #### [facility] [place] [address] CASTS 2 0-4 FINE GRAN Normal [facility] Comment on above: Performed By: #### P OCGL #### [facility] [address] [place] [address] 20259 MISCELLANEOUS see below Normal [facility] Comment on above: Result Comment: See Below 0-4 HYALINE CASTS Performed By: #### P OCGL #### [employer] [address] [place] [address] 72768 MUCOUS THREADS Normal NONE SEEN/THREA [facility] Comment on above: Performed By: #### P OCGL #### [facility] [address] [place] [address] 14433 RBC 10-15 Normal 0-2/hpf [facility] Comment on above: Performed By: #### P OCGL #### [facility] [address] [place] [address] 03211 RENAL EPITHELIAL 3-5 Normal NONE SEEN [facility] Comment on above: Performed By: #### P OCGL #### [employer] [address] [place] [address] 96185 WBC 15-25 Normal 0-4/hpf [facility] Comment on above: Performed By: #### P OCGL #### [facility] [address] [place] [address] BACTERIA NONE SEEN Normal FEW/NONE SEEN [facility] Comment on above: Performed By: #### P OCGL #### [facility] [address] [place] [address] Crystals LM Nom (Urine sed) NONE SEEN Normal NONE SEEN [facility] Comment on above: Performed By: #### P OCGL #### [facility] [address] [place] [address] EPITHELIAL 25-50 Normal 3-5/hpf [facility] Comment on above: Performed By: #### P OCGL #### [facility] [address] [place] [address] [place] [address] MISCELLANEOUS 2 NONE SEEN Normal [facility] Comment on above: Performed By: #### P OCGL #### [facility] [address] [place] [address] 70268 YEAST NONE SEEN Normal NONE SEEN [facility] Comment on above: Performed By: #### P OCGL #### [facility] [address] [place] [address] Bilirubin Ql (U) Negative Normal NEGATIVE [facility] Comment on above: Performed By: #### P OCGL #### [facility] [address] [place] [address] CHARACTER TURBID Abnormal CLR-SL.CLOUD [facility] Comment on above: Performed By: #### P OCGL #### [facility] [address] [place] [address] Color (U) YELLOW Normal YELLOW-STRAW [facility] Comment on above: Performed By: #### P OCGL #### [facility] [address] [place] [address] Glucose Ql (U) 100 mg/dl Abnormal NEGATIVE [facility] Comment on above: Performed By: #### P OCGL #### [facility] [address] [place] [address] Hemoglobin Ql (U) MODERATE Abnormal NEGATIVE [facility] Comment on above: Performed By: #### P OCGL #### [address] [address] Ketones Ql (U) Negative Normal NEGATIVE [facility] Comment on above: Performed By: #### P OCGL #### [facility] [address] [place] [address] LEUKOCYTES Negative Normal NEGATIVE [facility] Comment on above: Performed By: #### P OCGL #### [facility] [address] [place] [address] 38607 Nitrite Ql (U) Negative Normal NEGATIVE [facility] Comment on above: Performed By: #### P OCGL #### [address] [address] pH (U) 5.0 [pH] Normal 5.0 - 9.0 [facility] Comment on above: Performed By: #### P OCGL #### [address] [address] Protein Ql (U) >= [address] [facility] Comment on above: Performed By: #### P OCGL #### [address] [address] Specific gravity (U) [Rel density] 1.018 Normal 1.002-1.030 [facility] Comment on above: Performed By: #### P OCGL #### [address] [address] Urobilinogen Qn (U) 0.2 {Stevie'U}/dL Normal 0.0 - 1. 0 [facility] Comment on above: Performed By: #### P OCGL #### [address] [address] Urinalysis dipstick W Reflex Microscopic panel (U)on 07-23-2022 Bacteria, UA NONE SEEN FEW/NONE SEEN [facility] Bilirubin Ql (U) Negative NEGATIVE [facility] Casts LM.LPF (Urine sed) [#/Area] >15 C.GRAN NONE SEEN /lpf [facility] Casts LM.LPF (Urine sed) [#/Area] 0-4 FINE GRAN /lpf [facility] Character (U) TURBID Abnormal CLR-SL.CLOUD [facility] Charcoal LM Ql (Urine sed) NONE SEEN [facility] Comment on above: Performed at [facility] [address] [place] [address] Color (U) YELLOW YELLOW-STRAW [facility] Crystals LM Ql (Urine sed) NONE SEEN NONE SEEN [facility] Epithelial Cells, UA 25-50 3-5/hpf /hpf [facility] Epithelial cells.renal LM.HPF (Urine sed) [#/Area] 3-5 NONE SEEN [facility] Fungi.yeastlike LM Ql (Urine sed) NONE SEEN NONE SEEN [facility] Glucose Auto test strip Ql (U) 100 mg/dl Abnormal NEGATIVE [facility] Hemoglobin Auto test strip Ql (U) MODERATE Abnormal NEGATIVE [facility] Interpretation and review of laboratory results Abnormal [facility] Ketones Auto test strip Ql (U) Negative NEGATIVE [facility] Leukocyte esterase Auto test strip Ql (U) Negative NEGATIVE [facility] Miscellaneous Lab Test Result see below [facility] Comment on above: See Below 0-4 HYALINE CASTS Mucus Ql (Urine sed) THREADS NONE SEEN/THREA [facility] Nitrite Auto test strip Ql (U) Negative NEGATIVE [facility] pH (U) 5.0 [pH] 5.0 - 9.0 [facility] Protein (U) [Mass/Vol] mg/dL Abnormal NEGAT AMADA mg/dl [facility] RBC LM.HPF (Urine sed) [#/Area] 10-15 0-2/hpf /hpf [facility] Specific gravity Refractometry automated (U) [Rel density] 1.018 1.002 - 1.030 [facility] Urobilinogen Ql (U) 0.2 [facility] WBC LM.HPF (Urine sed) [#/Area] 15-25 0-4/hpf /hpf [facility] VL DUP LOWER EXTREMITY VENOU S BILATERALon 07-23-2022 No evidence of a DVT. This report has been created using voice recognition software. It may contain minor errors which are inherent in voice recognition technology. Final report electronically signed by Dr Héctor Mcdonnell on 07/23/2022 5:19 PM [facility] Héctor White MD - 07/23/2022 PROCEDURE: VL [...] Dr Héctor Mcdonnell on 07/23/2022 5:19 PM [employer] Work Phone: Radiology Study observation (narrative) [employer] Phone: VL DUP LOWER EXTREMITY VENOU S BILATERALOrdered By: Héctor Mcdonnell on 07-23-2022 [facility] [employer] AMMONIAon 07-22-2022 Ammonia (P) [Moles/Vol] 36 umol/L Normal 11-60 [facility] Comment on above: Performed By: #### P OCGL #### [employer] [address] [place] [address] ANION GAPon 07-22-2022 Anion gap [Moles/Vol] 12.0 mmol/L Normal 8.0-16.0 [facility] Comment on above: Result Comment: ANIO N GAP = Sodium -(Chloride + CO2) Performed By: #### P OCGL #### [employer] [address] [place] [address] Anion gap [Moles/Vol] 10.0 mmol/L Normal 8.0-16.0 [facility] Comment on above: Result Comment: ANIO N GAP = Sodium -(Chloride + CO2) Performed By: #### P OCGL #### [facility] [address] [place] [address] Ammonia (P) [Mass/Vol]on Ammonia (P) [Moles/Vol] 36 umol/L 11 - 60 umol/L [facility] Comment on above: Performed at [facility] [address] [place] [address] Anion Gapon 07-22-2022 Anion gap [Moles/Vol] 12.0 mmol/L 8.0 - 16.0 meq/L [facility] Comment on above: ANION GAP = Sodium - (Chloride + CO2) Performed at [facility] [address] [place] [address] Anion gap [Moles/Vol] 10.0 mmol/L 8.0 - 16.0 meq/L [facility] Comment on above: ANION GAP = Sodium - (Chloride + CO2) Performed at [facility] [address] [place] [address] BASIC METABOL PANELon 2022 Calcium [Mass/Vol] 7.5 mg/dL Low 8.5-10.5 [facility] Comment on above: Performed By: #### P OCGL #### [facility] [address] [place] [address] Chloride [Moles/Vol] 109 mmol/L Normal 98-111 [facility] Comment on above: Performed By: #### P OCGL #### [employer] [facility] [address] [place] [address] 45294 CO2 [Moles/Vol] 18 mmol/L Low 23-33 [facility] Comment on above: Performed By: #### P OCGL #### [employer] [facility] [address] [place] [address] 22068 Creatinine [Mass/Vol] 2.4 mg/dL High 0.4-1.2 [facility] Comment on above: Performed By: #### P OCGL #### [facility] [address] [place] [address]36 Glucose [Mass/Vol] 167 mg/dL High 70-108 [facility] Comment on above: Performed By: #### P OCGL #### [facility] [address] [place] [address] Potassium [Moles/Vol] 4.7 mmol/L Normal 3.5-5.2 [facility] Comment on above: Performed By: #### P OCGL #### [facility] [address] [place] [address] Sodium [Moles/Vol] 139 mmol/L Normal 135-145 [facility] Comment on above: Performed By: #### P OCGL #### [facility] [employer] [address] [place] [address]30 Urea nitrogen [Mass/Vol] 25 mg/dL High 7-22 [facility] Comment on above: Performed By: #### P OCGL #### [facility] [address] [place] [address] Calcium [Mass/Vol] 6.9 mg/dL Low 8.5-10.5 [facility] Comment on above: Performed By: #### P OCGL #### [facility] [address] [place] [address] 18043 Chloride [Moles/Vol] 111 mmol/L Normal 98-111 [facility] Comment on above: Performed By: #### P OCGL #### [facility] [address] [place] [address] 19692 CO2 [Moles/Vol] 18 mmol/L Low 23-33 [facility] Comment on above: Performed By: #### P OCGL #### [facility] [address] [place] [address] [place] [address] Creatinine [Mass/Vol] 2.4 mg/dL High 0.4-1.2 [facility] Comment on above: Performed By: #### P OCGL #### [facility] [address] [place] [address] Glucose [Mass/Vol] 119 mg/dL High 70-108 [facility] Comment on above: Performed By: #### P OCGL #### [facility] [address] [place] [address]858 Potassium [Moles/Vol] 4.5 mmol/L Normal 3.5-5.2 [facility] Comment on above: Performed By: #### P OCGL #### [facility] [address] [place] [address] Sodium [Moles/Vol] 139 mmol/L Normal 135-145 [facility] Comment on above: Performed By: #### P OCGL #### [facility] [address] [place] [address]153 Urea nitrogen [Mass/Vol] 23 mg/dL High 7-22 [facility] Comment on above: Performed By: #### P OCGL #### [facility] [address] [place] [address] 44008 Basic metabolic 2000 panelon 07-22-2022 Calcium [Mass/Vol] 7.5 mg/dL Low 8.5 - 10. 5 mg/dL [facility] [employer] Comment on above: Performed at [facility] [employer] [facility] [address] [place] [address] Chloride [Moles/Vol] 109 mmol/L 98 - 11 [...] [facility] Comment on above: Performed at [facility] [employer] [facility] [address] [place] [address] Chloride [Moles/Vol] 111 mmol/L 98 - 11 1 meq/L [facility] CO2 [Moles/Vol] 18 mmol/L Low 23 - 33 meq/L [facility] Creatinine [Mass/Vol] 2.4 mg/dL High 0.4 - 1.2 mg/dL [facility] Glucose [Mass/Vol] 119 mg/dL High 70 - 108 mg/dL [facility] Potassium [Moles/Vol] 4.5 mmol/L 3.5 - 5.2 meq/L [facility] Sodium [Moles/Vol] 139 mmol/L 135 - 145 meq/L [facility] Urea nitrogen [Mass/Vol] 23 mg/dL High 7 - 22 mg/dL [facility] CBCon 07-22-2022 Erythrocyte distribution width (RBC) [Entitic vol] 54.9 fL High 35.0 - 45.0 fL [facility] Erythrocyte distribution width (RBC) [Ratio] 15.3 % High 11.5 - 14.5 % [facility] Hematocrit (Bld) [Volume fraction] 26.8 % Low 42.0 - 52.0 % [facility] Hemoglobin (Bld) [Mass/Vol] 8.1 g/dL Low [facility] Interpretation and review of laboratory results Abnormal [facility] MCH (RBC) [Entitic mass] 29.9 pg 26.0 - 33.0 pg [facility] MCHC (RBC) [Mass/Vol] 30.2 g/dL Low [facility] MCV (RBC) [Entitic vol] 98.9 fL High 80.0 - 94.0 fL [facility] Platelet mean volume (Bld) [Entitic vol] 8.9 fL Low 9.4 - 12.4 fL [facility] Comment on above: Performed at [facility] [address] [place] [address] Platelets (Bld) [#/Vol] 157 10*3/uL [facility] RBC (Bld) [#/Vol] 2.71 10*6/uL Low [facility] WBC (Bld) [#/Vol] 8.0 10*3/uL [facility] Erythrocyte distribution width (RBC) [Entitic vol] 54.4 fL High 35.0 - 45.0 fL [facility] Erythrocyte distribution width (RBC) [Ratio] 15.1 % High 11.5 - 14.5 % [facility] Hematocrit (Bld) [Volume fraction] 26.2 % Low 42.0 - 52.0 % [facility] Hemoglobin (Bld) [Mass/Vol] 8.0 g/dL Low [facility] Interpretation and review of laboratory results Abnormal [facility] MCH (RBC) [Entitic mass] 30.4 pg 26.0 - 33.0 pg [facility] MCHC (RBC) [Mass/Vol] 30.5 g/dL Low [facility] MCV (RBC) [Entitic vol] 99.6 fL High 80.0 - 94.0 fL [facility] Platelet mean volume (Bld) [Entitic vol] 8.8 fL Low 9.4 - 12.4 fL [facility] Comment on above: Performed at [facility] [address] [place] [address] Platelets (Bld) [#/Vol] 137 10*3/uL [facility] RBC (Bld) [#/Vol] 2.63 10*6/uL Low [facility] WBC (Bld) [#/Vol] 7.2 10*3/uL [facility] CBC NO DIFFERENTIALon 2022 Erythrocyte distribution width (RBC) [Ratio] 15.3 % High 11.5-14.5 [facility] Comment on above: Performed By: #### P OCGL #### [employer] [address] [place] [address] Hematocrit (Bld) [Volume fraction] 26.8 % Low 42.0-52.0 [facility] Comment on above: Performed By: #### P OCGL #### [facility] [address] [place] [address] Hemoglobin (Bld) [Mass/Vol] 8.1 g/dL Low 14.0-18.0 [facility] Comment on above: Performed By: #### P OCGL #### [facility] [address] [place] [address] MCH (RBC) [Entitic mass] 29.9 pg Normal 26.0-33.0 [facility] Comment on above: Performed By: #### P OCGL #### [facility] [address] [place] [address] MCHC (RBC) [Mass/Vol] 30.2 g/dL Low 32.2-35.5 [facility] Comment on above: Performed By: #### P OCGL #### [facility] [address] [place] [address]83 MCV (RBC) [Entitic vol] 98.9 fL High 80.0-94.0 [facility] Comment on above: Performed By: #### P OCGL #### [address] [address] PLATELET 157 thou/mm3 Normal 130-400 [facility] Comment on above: Performed By: #### P OCGL #### [address] [address] Platelet mean volume (Bld) [Entitic vol] 8.9 fL Low 9.4-12.4 [facility] Comment on above: Performed By: #### P OCGL #### [address] [address] RBC 2.71 mill/mm3 Low 4.70-6.10 [facility] Comment on above: Performed By: #### P OCGL #### [address] [address] RDW-SD 54.9 fL High 35.0-45.0 [facility] Comment on above: Performed By: #### P OCGL #### New [address] [address] WBC 8.0 thou/mm3 Normal 4.8-10.8 [facility] Comment on above: Performed By: #### P OCGL #### [facility] [address] [place] [address] Erythrocyte distribution width (RBC) [Ratio] 15.1 % High 11.5-14.5 [facility] Comment on above: Performed By: #### P OCGL #### [address] [address] Hematocrit (Bld) [Volume fraction] 26.2 % Low 42.0-52.0 [facility] Comment on above: Performed By: #### P OCGL #### [place] [address] Hemoglobin (Bld) [Mass/Vol] 8.0 g/dL Low 14.0-18.0 [facility] Comment on above: Performed By: #### P OCGL #### [place] [address] MCH (RBC) [Entitic mass] 30.4 pg Normal 26.0-33.0 [facility] Comment on above: Performed By: #### P OCGL #### [place] [address] MCHC (RBC) [Mass/Vol] 30.5 g/dL Low 32.2-35.5 [facility] Comment on above: Performed By: #### P OCGL #### [place] [address] MCV (RBC) [Entitic vol] 99.6 fL High 80.0-94.0 [facility] Comment on above: Performed By: #### P OCGL #### [place] [address] PLATELET 137 thou/mm3 Normal 130-400 [facility] Comment on above: Performed By: #### P OCGL #### [place] [address] Platelet mean volume (Bld) [Entitic vol] 8.8 fL Low 9.4-12.4 [facility] Comment on above: Performed By: #### P OCGL #### [place] [id number] RBC 2.63 mill/mm3 Low 4.70-6.10 [facility] Comment on above: Performed By: #### P OCGL #### [place] [id number] RDW-SD 54.4 fL High 35.0-45.0 [facility] Comment on above: Performed By: #### P OCGL #### [address] [address] WBC 7.2 thou/mm3 Normal 4.8-10.8 [facility] Comment on above: Performed By: #### P OCGL #### [address] [address] GFR, ESTIMATEDon 07-22-2022 GFR/1.73 sq M.predicted MDRD (S/P/Bld) [Vol rate/Area] 28 mL/min/{1.73_m2} Abnormal >60 [facility] Comment on above: Result [...] secretion. Performed By: #### P OCGL #### [address] [address] GFR/1.73 sq M.predicted MDRD (S/P/Bld) [Vol rate/Area] 28 mL/min/{1.73_m2} Abnormal >60 [facility] Comment on above: Result [...] secretion. Performed By: #### P OCGL #### [address] [address] GLUCOSE POCon 07-22-2022 Glucose [Mass/Vol] 213 mg/dL High 70-108 [facility] Comment on above: Performed By: #### P OCGL #### [facility] [address] [place] [address] Glucose [Mass/Vol] 126 mg/dL High 70-108 [facility] Comment on above: Performed By: #### P OCGL #### [facility] [address] [place] [address] Glucose [Mass/Vol] 132 mg/dL High 70-108 [facility] Comment on above: Performed By: #### P OCGL #### [facility] [address] [place] [address] Glucose [Mass/Vol] 128 mg/dL High 70-108 [facility] Comment on above: Performed By: #### P OCGL ####[employer] [facility] [address] [place] [address] Glomerular Filtration Rate, Estimatedon 07-22-2022 GFR/1.73 sq M.predicted MDRD (S/P/Bld) [Vol rate/Area] 28 mL/min/{1.73_m2} Abnormal - PINF [facility] Comment on above: Pediatric calculator link https://www.kidney.org/professionals/kdoqi/gfr_calculatorped [...] that affects renal tubular secretion. Performed at [facility] [address] [place] [address] GFR/1.73 sq M.predicted MDRD (S/P/Bld) [Vol rate/Area] 28 mL/min/{1.73_m2} Abnormal - PINF [facility] Comment on above: Pediatric calculator link https://www.kidney.org/professionals/kdoqi/gfr_calculatorped [...] that affects renal tubular secretion. Performed at [facility] [address] [place] [address] Glucose Auto test strip (Bld ) [Mass/Vol]on 07-22-2022 Glucose [Mass/Vol] 213 mg/dL High 70 - 108 mg/dl [facility] [employer] Comment on above: Performed at [facility] [address] [place] [address] Interpretation and review of laboratory results Abnormal [facility] Glucose [Mass/Vol] 126 mg/dL High 70 - 108 mg/dl [facility] Comment on above: Performed at [facility] [address] [place] [address] Interpretation and review of laboratory results Abnormal [facility] Glucose [Mass/Vol] 132 mg/dL High 70 - 108 mg/dl [facility] [facility] Comment on above: Performed at [facility] [address] [place] [address] Interpretation and review of laboratory results Abnormal [facility] Glucose [Mass/Vol] 128 mg/dL High 70 - 108 mg/dl [facility] Comment on above: Performed at [facility] [address] [place] [address] Interpretation and review of laboratory results Abnormal [facility] No Panel Informationon 07-22 Interpretation and review of laboratory results Abnormal [facility] Interpretation and review of laboratory results Abnormal [facility] ANION GAPon 07-21-2022 Anion gap [Moles/Vol] 15.0 mmol/L Normal 8.0-16.0 [facility] Comment on above: Result Comment: ANIO N GAP = Sodium -(Chloride + CO2) Performed By: #### P OCGL #### [facility] [address] [place] [address] Anion Gapon 07-21-2022 Anion gap [Moles/Vol] 15.0 mmol/L 8.0 - 16.0 meq/L [facility] Comment on above: ANION GAP = Sodium - (Chloride + CO2) Performed at [facility] [address] [address] BASIC METABOL PANELon 2022 Calcium [Mass/Vol] 6.7 mg/dL Low 8.5-10.5 [facility] Comment on above: Performed By: #### P OCGL #### [address] [address] Chloride [Moles/Vol] 108 mmol/L Normal 98-111 [facility] Comment on above: Performed By: #### P OCGL #### [address] [address] CO2 [Moles/Vol] 18 mmol/L Low 23-33 [facility] Comment on above: Performed By: #### P OCGL #### [address] [address] Creatinine [Mass/Vol] 2.0 mg/dL High 0.4-1.2 [facility] Comment on above: Performed By: #### P OCGL #### [address] [address] Glucose [Mass/Vol] 113 mg/dL High 70-108 [facility] Comment on above: Performed By: #### P OCGL #### [address] [address] Potassium [Moles/Vol] 4.8 mmol/L Normal 3.5-5.2 [facility] Comment on above: Result Comment: Low level specimen hemolysis is present as indicated by the interference level index on the Cassidy analyzer. The reported K+ level may be falsely increased. If clinically warranted, recollection of the specimen is suggested. Performed By: #### P OCGL #### [address] [address] Sodium [Moles/Vol] 141 mmol/L Normal 135-145 [facility] Comment on above: Performed By: #### P OCGL #### [facility] [address] [place] [address] Urea nitrogen [Mass/Vol] 26 mg/dL High 7-22 [facility] Comment on above: Performed By: #### P OCGL #### [facility] [address] [place] [address] Basic metabolic 2000 panelon 07-21-2022 Calcium [Mass/Vol] 6.7 mg/dL Low 8.5 - 10. 5 mg/dL [facility] Comment on above: Performed at [facility] [address] [place] [address] Chloride [Moles/Vol] 108 mmol/L 98 - 11 1 meq/L [facility] [employer] CO2 [Moles/Vol] 18 mmol/L Low 23 - 33 meq/L [facility] [employer] Creatinine [Mass/Vol] 2 mg/dL High 0.4 - 1.2 mg/dL [facility] [employer] Glucose [Mass/Vol] 113 mg/dL High 70 - 108 mg/dL [facility] Potassium [Moles/Vol] 4.8 mmol/L 3.5 - 5.2 meq/L [facility] Comment on above: Low level specimen h emolysis is present as indicated by the interference level index on the Cassidy analyzer. The reported K+ level may be falsely increased. If clinically warranted, recollection of the specimen is suggested. Sodium [Moles/Vol] 141 mmol/L 135 - 145 meq/L [facility] [employer] Urea nitrogen [Mass/Vol] 26 mg/dL High 7 - 22 mg/dL [facility] [employer] CBCon 07-21-2022 Erythrocyte distribution width (RBC) [Entitic vol] 52.2 fL High 35.0 - 45.0 fL [facility] Erythrocyte distribution width (RBC) [Ratio] 14.9 % High 11.5 - 14.5 % [facility] Hematocrit (Bld) [Volume fraction] 27.2 % Low 42.0 - 52.0 % [facility] Hemoglobin (Bld) [Mass/Vol] 8.7 g/dL Low [facility] Interpretation and review of laboratory results Abnormal [facility] MCH (RBC) [Entitic mass] 30.7 pg 26.0 - 33.0 pg [facility] MCHC (RBC) [Mass/Vol] 32.0 g/dL Low [facility] MCV (RBC) [Entitic vol] 96.1 fL High 80.0 - 94.0 fL [facility] Platelet mean volume (Bld) [Entitic vol] 9.1 fL Low 9.4 - 12.4 fL [facility] Comment on above: Performed at [facility] [address] [place] [address] Platelets (Bld) [#/Vol] 158 10*3/uL [facility] RBC (Bld) [#/Vol] 2.83 10*6/uL Low [facility] WBC (Bld) [#/Vol] 6.8 10*3/uL [facility] CBC NO DIFFERENTIALon 2022 Erythrocyte distribution width (RBC) [Ratio] 14.9 % High 11.5-14.5 [facility] Comment on above: Performed By: #### P OCGL #### [facility] [address] [address] Hematocrit (Bld) [Volume fraction] 27.2 % Low 42.0-52.0 [facility] Comment on above: Performed By: #### P OCGL #### [employer] [address] [place] [address] Hemoglobin (Bld) [Mass/Vol] 8.7 g/dL Low 14.0-18.0 [facility] Comment on above: Performed By: #### P OCGL #### [facility] [address] [place] [address] MCH (RBC) [Entitic mass] 30.7 pg Normal 26.0-33.0 [facility] Comment on above: Performed By: #### P OCGL #### [facility] [address] [place] [address] MCHC (RBC) [Mass/Vol] 32.0 g/dL Low 32.2-35.5 [facility] Comment on above: Performed By: #### P OCGL #### [place] [address] MCV (RBC) [Entitic vol] 96.1 fL High 80.0-94.0 [facility] Comment on above: Performed By: #### P OCGL #### [place] [address] PLATELET 158 thou/mm3 Normal 130-400 [facility] Comment on above: Performed By: #### P OCGL #### [place] [id number] Platelet mean volume (Bld) [Entitic vol] 9.1 fL Low 9.4-12.4 [facility] Comment on above: Performed By: #### P OCGL #### [place] [address] RBC 2.83 mill/mm3 Low 4.70-6.10 [facility] Comment on above: Performed By: #### P OCGL #### [place] [address] RDW-SD 52.2 fL High 35.0-45.0 [facility] Comment on above: Performed By: #### P OCGL #### [place] [address] WBC 6.8 thou/mm3 Normal 4.8-10.8 [facility] Comment on above: Performed By: #### P OCGL #### [place] [id number] GFR, ESTIMATEDon 07-21-2022 GFR/1.73 sq M.predicted MDRD (S/P/Bld) [Vol rate/Area] 35 mL/min/{1.73_m2} Abnormal >60 [facility] Comment on above: Result [...] secretion. Performed By: #### P OCGL #### [facility] [address] [place] [address] GLUCOSE POCon 07-21-2022 Glucose [Mass/Vol] 119 mg/dL High 70-108 [facility] Comment on above: Performed By: #### P OCGL #### [facility] [address] [place] [address] Glucose [Mass/Vol] 115 mg/dL High 70-108 [facility] Comment on above: Performed By: #### P OCGL #### [facility] [address] [place] [address] Glucose [Mass/Vol] 120 mg/dL High 70-108 [facility] Comment on above: Performed By: #### P OCGL #### [place] Count Includes [facility] [address] [place] [address] Glucose [Mass/Vol] 111 mg/dL High 70-108 [facility] Comment on above: Performed By: #### P OCGL ####[employer] [facility] [address] [place] [address] Glomerular Filtration Rate, Estimatedon 07-21-2022 GFR/1.73 sq M.predicted MDRD (S/P/Bld) [Vol rate/Area] 35 mL/min/{1.73_m2} [facility] Comment on above: Pediatric calculator [...] that affects renal tubular secretion. Performed at [facility] [address] [place] [address] Glucose Auto test strip (Bld ) [Mass/Vol]on 07-21-2022 Glucose [Mass/Vol] 119 mg/dL High 70 - 108 mg/dl [facility] Comment on above: Performed at [employer] [facility] [address] [place] [address] Interpretation and review of laboratory results Abnormal [facility] Glucose [Mass/Vol] 115 mg/dL High 70 - 108 mg/dl [facility] Comment on above: Performed at [employer] [facility] [address] [place] [address] Interpretation and review of laboratory results Abnormal [facility] Glucose [Mass/Vol] 120 mg/dL High 70 - 108 mg/dl [facility] SEC[facility] Comment on above: Performed at [facility] [employer] [facility] [address] [place] [address] Interpretation and review of laboratory results Abnormal [facility] Glucose [Mass/Vol] 111 mg/dL High 70 - 108 mg/dl [facility]Im[facility] Limited[facility] HE[facility] Comment on above: Performed at [facility] [employer] [facility] [address] [place] [address] Interpretation and review of laboratory results Abnormal [facility] SEC[facility]oul [facility] No Panel Informationon 07-21 Interpretation and review of laboratory results Abnormal [facility] SECIm[facility] LimitedY HEALTH ANION GAPon 07-20-2022 Anion gap [Moles/Vol] 8.0 mmol/L Normal 8.0-16.0 [facility] Comment on above: Result Comment: ANIO N GAP = Sodium -(Chloride + CO2) Performed By: #### E GFR1, ANION, CBCND, BMP ####[employer] [place] [address] Anion Gapon 07-20-2022 Anion gap [Moles/Vol] 8.0 mmol/L 8.0 - 16.0 meq/L [facility] Comment on above: ANION GAP = Sodium - (Chloride + CO2) Performed at [facility] [address] [place] [address] BASIC METABOL PANELon 2022 Calcium [Mass/Vol] 7.7 mg/dL Low 8.5-10.5 [facility] Comment on above: Performed By: #### E GFR1, ANION, CBCND, BMP ####[employer] [address] [place] [address] Chloride [Moles/Vol] 109 mmol/L Normal 98-111 [facility] Comment on above: Performed By: #### E GFR1, ANION, CBCND, BMP ####[facility] [address] [place] [address] CO2 [Moles/Vol] 25 mmol/L Normal 23-33 [facility] Comment on above: Performed By: #### E GFR1, ANION, CBCND, BMP ####[facility] [address] [place] [address] Creatinine [Mass/Vol] 2.1 mg/dL High 0.4-1.2 [facility] Comment on above: Performed By: #### E GFR1, ANION, CBCND, BMP ####[facility] Count Includes [facility] [address] [place] [address] Glucose [Mass/Vol] 132 mg/dL High 70-108 [facility] Comment on above: Performed By: #### E GFR1, ANION, CBCND, BMP ####[facility] Count Includes [facility] [address] [place] [address] Potassium [Moles/Vol] 4.2 mmol/L Normal 3.5-5.2 [facility] Comment on above: Performed By: #### E GFR1, ANION, CBCND, BMP ####New Count Includes [facility] [address] [place] [address] Sodium [Moles/Vol] 142 mmol/L Normal 135-145 [facility] Comment on above: Performed By: #### E GFR1, ANION, CBCND, BMP ####[facility] [address] [place] [address] Urea nitrogen [Mass/Vol] 30 mg/dL High 7-22 [facility] Comment on above: Performed By: #### E GFR1, ANION, CBCND, BMP ####[facility] [address] [place] [address] Basic metabolic 2000 panelon 07-20-2022 Calcium [Mass/Vol] 7.7 mg/dL Low 8.5 - 10. 5 mg/dL [facility] Comment on above: Performed at [facility] [address] [place] [address] Chloride [Moles/Vol] 109 mmol/L 98 - 11 1 meq/L [facility] CO2 [Moles/Vol] 25 mmol/L 23 - 33 meq/L [facility] Creatinine [Mass/Vol] 2.1 mg/dL High 0.4 - 1.2 mg/dL [facility] Glucose [Mass/Vol] 132 mg/dL High 70 - 108 mg/dL [facility] Potassium [Moles/Vol] 4.2 mmol/L 3.5 - 5.2 meq/L [facility] Sodium [Moles/Vol] 142 mmol/L 135 - 145 meq/L [facility] Urea nitrogen [Mass/Vol] 30 mg/dL High 7 - 22 mg/dL [facility] CBCon 07-20-2022 Erythrocyte distribution width (RBC) [Entitic vol] 49.7 fL High 35.0 - 45.0 fL [facility] Erythrocyte distribution width (RBC) [Ratio] 14.7 % High 11.5 - 14.5 % [facility] Hematocrit (Bld) [Volume fraction] 33.8 % Low 42.0 - 52.0 % [facility] Hemoglobin (Bld) [Mass/Vol] 11.2 g/dL Low [facility] Interpretation and review of laboratory results Abnormal [facility] MCH (RBC) [Entitic mass] 30.6 pg 26.0 - 33.0 pg [facility] MCHC (RBC) [Mass/Vol] 33.1 g/dL [facility] MCV (RBC) [Entitic vol] 92.3 fL 80.0 - 94.0 fL [facility] Platelet mean volume (Bld) [Entitic vol] 8.6 fL Low 9.4 - 12.4 fL [facility] Comment on above: Performed at [facility] [address] [place] [address] Platelets (Bld) [#/Vol] 180 10*3/uL [facility] RBC (Bld) [#/Vol] 3.66 10*6/uL Low [facility] WBC (Bld) [#/Vol] 7.3 10*3/uL [facility] CBC NO DIFFERENTIALon 2022 Erythrocyte distribution width (RBC) [Ratio] 14.7 % High 11.5-14.5 [facility] Comment on above: Performed By: #### E GFR1, ANION, CBCND, BMP ####[facility] [address] [place] [address] Hematocrit (Bld) [Volume fraction] 33.8 % Low 42.0-52.0 [facility] Comment on above: Performed By: #### E GFR1, ANION, CBCND, BMP ####[facility] [employer] [address] [place] [address] Hemoglobin (Bld) [Mass/Vol] 11.2 g/dL Low 14.0-18.0 [facility] Comment on above: Performed By: #### E GFR1, ANION, CBCND, BMP ####[facility] [employer] [address] [place] [address] MCH (RBC) [Entitic mass] 30.6 pg Normal 26.0-33.0 [facility] Comment on above: Performed By: #### E GFR1, ANION, CBCND, BMP ####[facility] [place] [address] MCHC (RBC) [Mass/Vol] 33.1 g/dL Normal 32.2-35.5 [facility] Comment on above: Performed By: #### E GFR1, ANION, CBCND, BMP ####[facility] [address] [place] [address] MCV (RBC) [Entitic vol] 92.3 fL Normal 80.0-94.0 [facility] Comment on above: Performed By: #### E GFR1, ANION, CBCND, BMP ####[facility] [employer] [address] [place] [address] PLATELET 180 thou/mm3 Normal 130-400 [facility] Comment on above: Performed By: #### E GFR1, ANION, CBCND, BMP ####[employer] [address] [place] [address] Platelet mean volume (Bld) [Entitic vol] 8.6 fL Low 9.4-12.4 [facility] Comment on above: Performed By: #### E GFR1, ANION, CBCND, BMP ####[facility] [address] [place] [address] RBC 3.66 mill/mm3 Low 4.70-6.10 [facility] Comment on above: Performed By: #### E GFR1, ANION, CBCND, BMP ####[facility] [employer] [address] [place] [address] RDW-SD 49.7 fL High 35.0-45.0 [facility] Comment on above: Performed By: #### E GFR1, ANION, CBCND, BMP ####[facility] [address] [place] [address] WBC 7.3 thou/mm3 Normal 4.8-10.8 [facility] Comment on above: Performed By: #### E GFR1, ANION, CBCND, BMP ####[facility] [employer] [address] [place] [address] FLUORO FOR SURGICAL PROCEDUR ESon 07-20-2022 FLUORO FOR SURGICAL PROCEDURES Radiology exam is complete. No Radiologist dictation. Please follow up with ordering provider. Normal [facility] Radiology exam is complete. No Radiologist dictation. Please follow up with ordering provider. [facility] RIS CONSOLIDATED GFR, ESTIMATEDon 07-20-2022 GFR/1.73 sq M.predicted MDRD (S/P/Bld) [Vol rate/Area] 33 mL/min/{1.73_m2} Abnormal >60 [facility] Comment on above: Result [...] By: #### E GFR1, ANION, CBCND, BMP ####[employer] [address] [place] [address] GLUCOSE POCon 07-20-2022 Glucose [Mass/Vol] 153 mg/dL High 70-108 [facility] Comment on above: Performed By: #### P OCGL #### [facility] [address] [place] [address] Glucose [Mass/Vol] 165 mg/dL High 70-108 [facility] Comment on above: Performed By: #### P OCGL #### [facility] [address] [place] [address] Glomerular Filtration Rate, Estimatedon 07-20-2022 GFR/1.73 sq M.predicted MDRD (S/P/Bld) [Vol rate/Area] 33 mL/min/{1.73_m2} Abnormal - [facility] [employer] Comment on above: Pediatric calculator link https://www.kidney.org/professionals/kdoqi/gfr_calculatorped [...] that affects renal tubular secretion. Performed at [facility] [address] [place] [address] Glucose Auto test strip (Bld ) [Mass/Vol]on 07-20-2022 Glucose [Mass/Vol] 153 mg/dL High 70 - 108 mg/dl [employer] Comment on above: Performed at [facility] [address] [place] [address] Interpretation and review of laboratory results Abnormal [employer] Glucose [Mass/Vol] 165 mg/dL High 70 - 108 mg/dl [employer] Comment on above: Performed at [facility] [address] [place] [address] Interpretation and review of laboratory results Abnormal [facility] HEMOGLOBIN A1Con 07-20-2022 Glucose [Mass/Vol] 138 mg/dL High 70-126 [facility] Comment on above: Performed By: #### H -A1C #### [facility] [address] [place] [address] HbA1c (Bld) [Mass fraction] 6.6 % High 4.4-6.4 [facility] Comment on above: Performed By: #### H -A1C #### [facility] [address] [place] [address] HGB,HCTon 07-20-2022 Hematocrit (Bld) [Volume fraction] 33.2 % Low 42.0-52.0 [facility] Comment on above: Performed By: #### P OCGL #### [facility] [employer] [address] [place] [address] Hemoglobin (Bld) [Mass/Vol] 10.9 g/dL Low 14.0-18.0 [facility] Comment on above: Performed By: #### P OCGL #### [employer] [address] [place] [address] HbA1c HPLC (Bld) [Mass fract ion]on 07-20-2022 Glucose mean value Estimated from glycated hemoglobin Qn (Bld) 138 mg/dL High 70 - 126 mg/dL [facility] Comment on above: Performed at [facility] [employer] [facility] [address] [place] [address] HbA1c (Bld) [Mass fraction] 6.6 % High 4.4 - 6.4 % [facility] Interpretation and review of laboratory results Abnormal [facility] No Panel Informationon 07-20 Interpretation and review of laboratory results Abnormal [facility] XR CHEST PORTABLEon 07-21-19 XR CHEST [...] Leander Olsen MD 07/19/22 Final result Normal [facility] XR LUMBAR SPINE (2-3 [...] Ralph Prescott MD 07/20/22 Final result Normal [facility] Postop appearance lumbar spine. This report has been created using voice recognition software. It may contain minor errors which are inherent in voice recognition technology. Final report electronically signed by Dr. Ralph Prescott on 07/20/2022 4:[address] [facility] CONSOLIDATED LUMBAR SPINE 2 VIEWS: CLINICAL INFORMATION: fusion COMPARISON: Earlier film same date, 0914 hours. TECHNIQUE: Standard AP and lateral views of lumbar spine were obtained. FINDINGS: Posterior lumbar fusion has been performed from L2 to S1 with additional screws extending across both sacroiliac joints. Moderate multifocal degenerative changes are seen. The lumbar vertebra appear normally aligned. [facility] Ralph Austin MD - 07/20/2022 LUMBAR [...] Dr. Ralph Prescott on 07/20/2022 4:23 PM [employer] Phone: Radiology Study observation (narrative) [employer] Phone: XR LUMBAR SPINE (2-3 VIEWS)O rdered By: Ralph Prescott on 07-20-2022 [employer] Phone: XR LUMBAR SPINE 1 VWon 07-20 Localizer at L2. This report has been created using voice recognition software. It may contain minor errors which are inherent in voice recognition technology. Final report electronically signed by Dr. Simba Castle on 07/20/2022 12:20 PM [facility] Simba Bagley MD - 07/20/2022 PROCEDURE: XR LUMBAR SPINE 1 VW CLINICAL INFORMATION: surgery . TECHNIQUE: Crosstable lateral portable done in the OR COMPARISON: No prior study. FINDINGS: Certified Medical Technician Assistant localizer overlies the pedicle of L2. IMPRESSION: Localizer at L2. This report has been created using voice recognition software. It may contain minor errors which are inherent in voice recognition technology. Final report electronically signed by Dr. Simba Castle on 07/20/2022 12:20 PM [employer] Phone: Radiology Study observation (narrative) [employer] Phone: XR LUMBAR SPINE 1 VWOrdered By: Simba Castle on 07-20-2022 [employer] Phone: ANION GAPon 07-19-2022 Anion gap [Moles/Vol] 10.0 mmol/L Normal 8.0-16.0 [facility] Comment on above: Result Comment: ANIO N GAP = Sodium -(Chloride + CO2) Performed By: #### C BCND, ANION, EGFR1, BMP #### [facility] [employer] [address] [place] [address] Anion Gapon 07-19-2022 Anion gap [Moles/Vol] 10.0 mmol/L 8.0 - 16.0 meq/L [employer] Comment on above: ANION GAP = Sodium - (Chloride + CO2) Performed at [facility] [address] [place] [address] BASIC METABOL PANELon 2022 Calcium [Mass/Vol] 7.9 mg/dL Low 8.5-10.5 [facility] Comment on above: Performed By: #### C BCND, ANION, EGFR1, BMP #### [employer] Includes [facility] [address] [place] [address] Chloride [Moles/Vol] 107 mmol/L Normal 98-111 [facility] Comment on above: Performed By: #### C BCND, ANION, EGFR1, BMP #### [facility] [address] [place] [address] CO2 [Moles/Vol] 24 mmol/L Normal 23-33 [facility] Comment on above: Performed By: #### C BCND, ANION, EGFR1, BMP #### [facility] [address] [place] [address]456 Creatinine [Mass/Vol] 2.0 mg/dL High 0.4-1.2 [facility] Comment on above: Performed By: #### C BCND, ANION, EGFR1, BMP #### [facility] [address] [place] [address] Glucose [Mass/Vol] 231 mg/dL High 70-108 [facility] Comment on above: Performed By: #### C BCND, ANION, EGFR1, BMP #### New Count Includes The [facility] [address] [place] [address] 97602 Potassium [Moles/Vol] 4.3 mmol/L Normal 3.5-5.2 [facility] Comment on above: Performed By: #### C BCND, ANION, EGFR1, BMP #### New Count Includes [facility] [address] [place] [address] 79222 Sodium [Moles/Vol] 141 mmol/L Normal 135-145 [facility] Comment on above: Performed By: #### C BCND, ANION, EGFR1, BMP #### New Count Includes [facility] [address] [place] [address] 51964 Urea nitrogen [Mass/Vol] 33 mg/dL High 7-22 [facility] Comment on above: Performed By: #### C BCND, ANION, EGFR1, BMP #### [facility] [address] [place] [address] Basic metabolic 2000 panelon 07-19-2022 Calcium [Mass/Vol] 7.9 mg/dL Low 8.5 - 10. 5 mg/dL [facility] Comment on above: Performed at [facility] ion Medical Lab [address] [place] [address] Chloride [Moles/Vol] 107 mmol/L 98 - 11 1 meq/L [facility] CO2 [Moles/Vol] 24 mmol/L 23 - 33 meq/L [facility] Creatinine [Mass/Vol] 2 mg/dL High 0.4 - 1.2 mg/dL [facility] Glucose [Mass/Vol] 231 mg/dL High 70 - 108 mg/dL [facility] Potassium [Moles/Vol] 4.3 mmol/L 3.5 - 5.2 meq/L [facility] Sodium [Moles/Vol] 141 mmol/L 135 - 145 meq/L [facility] Urea nitrogen [Mass/Vol] 33 mg/dL High 7 - 22 mg/dL [facility] CBCon 07-19-2022 Erythrocyte distribution width (RBC) [Entitic vol] 46.5 fL High 35.0 - 45.[address] [facility] Erythrocyte distribution width (RBC) [Ratio] 13.7 % 11.5 - 14.5 % [facility] Hematocrit (Bld) [Volume fraction] 26.9 % Low 42.0 - 52.0 % [facility] Hemoglobin (Bld) [Mass/Vol] 8.8 g/dL Low [facility] Interpretation and review of laboratory results Abnormal [facility] MCH (RBC) [Entitic mass] 30.8 pg 26.0 - 33.0 pg [facility] MCHC (RBC) [Mass/Vol] 32.7 g/dL [facility] MCV (RBC) [Entitic vol] 94.1 fL High 80.0 - 94.0 fL [facility] Platelet mean volume (Bld) [Entitic vol] 9.1 fL Low 9.4 - 12.4 fL [facility] Comment on above: Performed at [facility] [address] [place] [address] Platelets (Bld) [#/Vol] 176 10*3/uL [facility] RBC (Bld) [#/Vol] 2.86 10*6/uL Low [facility] WBC (Bld) [#/Vol] 5.7 10*3/uL [facility] CBC NO DIFFERENTIALon 2022 Erythrocyte distribution width (RBC) [Ratio] 13.7 % Normal 11.5-14.5 [facility] Comment on above: Performed By: #### C BCND, ANION, EGFR1, BMP #### [employer] [address] [place] [address] Hematocrit (Bld) [Volume fraction] 26.9 % Low 42.0-52.0 [facility] Comment on above: Performed By: #### C BCND, ANION, EGFR1, BMP #### [employer] [address] [place] [address] 18594 Hemoglobin (Bld) [Mass/Vol] 8.8 g/dL Low 14.0-18.0 [facility] Comment on above: Performed By: #### C BCND, ANION, EGFR1, BMP #### [employer] [address] [place] [address] 20843 MCH (RBC) [Entitic mass] 30.8 pg Normal 26.0-33.0 [facility] Comment on above: Performed By: #### C BCND, ANION, EGFR1, BMP #### [employer] [address] [place] [address] 23781 MCHC (RBC) [Mass/Vol] 32.7 g/dL Normal 32.2-35.5 [facility] Comment on above: Performed By: #### C BCND, ANION, EGFR1, BMP #### [employer] [address] [place] [address] 26714 MCV (RBC) [Entitic vol] 94.1 fL High 80.0-94.0 [facility] Comment on above: Performed By: #### C BCND, ANION, EGFR1, BMP #### [facility] [address] [place] [address] PLATELET 176 thou/mm3 Normal 130-400 [facility] Comment on above: Performed By: #### C BCND, ANION, EGFR1, BMP #### [facility] [address] [place] [address] Platelet mean volume (Bld) [Entitic vol] 9.1 fL Low 9.4-12.4 [facility] Comment on above: Performed By: #### C BCND, ANION, EGFR1, BMP #### [facility] [address] [place] [address] 21304 RBC 2.86 mill/mm3 Low 4.70-6.10 [facility] Comment on above: Performed By: #### C BCND, ANION, EGFR1, BMP #### [employer] [address] [place] [address] 98686 RDW-SD 46.5 fL High 35.0-45.0 [facility] Comment on above: Performed By: #### C BCND, ANION, EGFR1, BMP #### [facility] [address] [place] [address] 20187 WBC 5.7 thou/mm3 Normal 4.8-10.8 [facility] Comment on above: Performed By: #### C BCND, ANION, EGFR1, BMP #### [employer] [address] [place] [address] 77657 FERRITINon 07-19-2022 Ferritin [Mass/Vol] 105 ng/mL Normal 22-322 [facility] Comment on above: Performed By: #### H -A1C #### [employer] [address] [place] [address] 57814 Ferritinon 07-19-2022 Ferritin IA [Mass/Vol] 105 ng/mL 22 - 322 ng/mL [facility] Comment on above: Performed at [facility] [employer] ion Medical Lab [address] [place] [address] 18626 Ferritin IA [Mass/Vol]on [facility] GFR, ESTIMATEDon 07-19-2022 GFR/1.73 sq M.predicted MDRD (S/P/Bld) [Vol rate/Area] 35 mL/min/{1.73_m2} Abnormal >60 [facility] Comment on above: Result [...] #### C BCND, ANION, EGFR1, BMP #### [employer] [address] [place] [address] 94489 GLUCOSE POCon 07-19-2022 Glucose [Mass/Vol] 254 mg/dL High 70-108 [facility] Comment on above: Performed By: #### P OCGL #### [employer] [address] [place] [address] 48354 Glomerular Filtration Rate, Estimatedon 07-19-2022 GFR/1.73 sq M.predicted MDRD (S/P/Bld) [Vol rate/Area] 35 mL/min/{1.73_m2} Abnormal - [facility] [employer] Comment on above: Pediatric calculator link https://www.kidney.org/professionals/kdoqi/gfr_calculatorped [...] that affects renal tubular secretion. Performed at [facility] [address] [place] [address] 62409 Glucose Auto test strip (Bld ) [Mass/Vol]on 07-19-2022 Glucose [Mass/Vol] 254 mg/dL High 70 - 108 mg/dl [employer] Comment on above: Performed at [facility] [address] [place] [address] Interpretation and review of laboratory results Abnormal [facility] Hemoglobin and Hematocrit pa smith (Bld)on 07-19-2022 Hematocrit (Bld) [Volume fraction] 33.2 % Low 42.0 - 52.0 % [facility] Comment on above: Performed at [facility] ion Medical Lab [address] [place] [address] Hemoglobin (Bld) [Mass/Vol] 10.9 g/dL Low [facility] Interpretation and review of laboratory results Abnormal [facility] IRONon 07-19-2022 Iron [Mass/Vol] 58 ug/dL Low 65-195 [facility] Comment on above: Performed By: #### P OCGL #### [facility] [address] [place] [address] Ironon 07-19-2022 Iron [Mass/Vol] 58 ug/dL Low 65 - 195 ug/dL [facility] Comment on above: Performed at [facility] [address] [place] [address] Iron [Mass/Vol]on 07-19-2022 Interpretation and review of laboratory results Abnormal [facility] LEUKO-REDUCED RCon 3 -1 LEUKOREDUCED RED CELLS [id number] transfused Normal [facility] Comment on above: Performed By: #### C BCND, ANION, EGFR1, BMP #### [facility] [address] [place] [address] -1 LEUKOREDUCED RED CELLS [id number] transfused Normal [facility] Comment on above: Performed By: #### C BCND, ANION, EGFR1, BMP #### [facility] [address] [place] [address] No Panel Informationon 07-19 Interpretation and review of laboratory results Abnormal [facility] PREPARE RBC (CROSSMATCH), 1 Unitson 07-19-2022 [id number] transfused [facility] [id number] transfused [facility] TYPE AND SCREENon 07-19-2022 ABO A [facility] Rh Factor Negative [facility] TYPE AND SCREEN CAPTUREon ABO CAPTURE A Normal [facility] Comment on above: Performed By: #### C BCND, ANION, EGFR1, BMP #### [facility] [address] [place] [address] INDIRECT GULSHAN CAPTURE Negative Normal [facility] Comment on above: Performed By: #### C BCND, ANION, EGFR1, BMP #### [facility] [address] [place] [address] RH CAPTURE (2 D CLONES) Negative Normal [facility] Comment on above: Performed By: #### C BCND, ANION, EGFR1, BMP #### [facility] [address] [place] [address] XR CHEST PORTABLEon 07-20-19 Impression: No acute cardiopulmonary disease. This document has been electronically signed by: Leander Olsen MD on 07/19/2022 10:58 PM [facility] Chest X-ray: 1 view. Indication: Pre-op. Comparison: None Findings: No focal consolidation, or pleural effusion. The cardiac silhouette is normal in size. Bony thorax is grossly intact. Spondylosis. [facility] Leander Olsen MD - 07/19/2022 Chest X-ray: 1 view. Indication: Pre-op. Comparison: None Findings: No focal consolidation, or pleural effusion. The cardiac silhouette is normal in size. Bony thorax is grossly intact. Spondylosis. IMPRESSION: Impression: No acute cardiopulmonary disease. This document has been electronically signed by: Leander Olsen MD on 07/19/2022 10:58 PM [facility] [employer] Work Phone: Radiology Study observation (narrative) [facility] [employer] Work Phone: XR CHEST PORTABLEOrdered By: Leander Olsen on 07-19-2022 [facility] [employer] Work Phone: PTH INTACTon 07-13-2022 PTH, Intact 54 pg/mL Normal 15-65 [facility] Comment on above: Performed By: #### P THINT #### [facility] [address] [place] [address] Dr. Sarah Sánchez FERRITINon 07-12-2022 Ferritin [Mass/Vol] 94.0 ng/mL Normal 26.0-388.0 [facility] Comment on above: Performed By: #### H BSANS #### [facility] [address] [address] [address] Sarah Sánchez HEMOGRAM AND PLATELon 2022 Hematocrit (Bld) [Volume fraction] 30.4 % Critically low 42.0-54.0 [facility] Comment on above: Performed By: #### U DELFINO, RENAL, MG #### [facility] [address] [place] [address] Dr. Sarah Sánchez Hemoglobin (Bld) [Mass/Vol] 10.4 g/dL Critically low 14.0-18.0 [facility] Comment on above: Performed By: #### U DELFINO, RENAL, MG #### [facility] [address] [place] [address] Dr. Sarah Sánchez MCH (RBC) [Entitic mass] 31.0 pg Normal 25.9-34.0 [facility] Comment on above: Performed By: #### U DELFINO, RENAL, MG #### [facility] [address] [place] [address] Dr. Sarah Sánchez MCHC (RBC) [Mass/Vol] 34.2 g/dL Normal 29.9-35.2 [facility] Comment on above: Performed By: #### U DELFINO, RENAL, MG #### [facility] [address] [place] [address] Dr. Sarah Sánchez MCV (RBC) [Entitic vol] 90.5 fL Normal 80.0-94.0 [facility] Comment on above: Performed By: #### U DELFINO, RENAL, MG #### [facility] [address] [place] [address] Dr. Sarah Sánchez PLT 202 103/ul Normal 150-450 [facility] Comment on above: Performed By: #### U DELFINO, RENAL, MG #### [facility] [address] [address] [address] Sarah Sánchez RBC 3.36 106/ul Critically low 4.70-6.10 [facility] Comment on above: Performed By: #### U DELFINO, RENAL, MG #### [facility] [address] [address] [address] Sarah Sánchez WBC 6.7 103/ul Normal 4.0-11.0 [facility] Comment on above: Performed By: #### U DELFINO, RENAL, MG #### [facility] [address] [address] [address] Sarah Sánchez IRON AND TIBCon 07-12-2022 % SATURATION 30.1 % Normal [facility] Comment on above: Performed By: #### H BSANS #### [facility] [address] [address] [address] Sarah Sánchez Iron [Mass/Vol] 74.0 ug/dL Normal 65.0-175.0 [facility] Comment on above: Performed By: #### H BSANS #### [facility] [address] [address] [address] Sarah Sánchez TIBC DIRECT 246.0 ug/dL Critically low 250.0-450.0 [facility] Comment on above: Performed By: #### H BSANS #### [facility] [address] [address] [address] Sarah Sánchez MAGNESIUMon 07-12-2022 Magnesium [Mass/Vol] 1.1 mg/dL Critically low 1.8-2.4 [facility] Comment on above: Performed By: #### P THINT #### [facility] [address] [address] [address] Sarah Sánchez NM STRESS/REST MULTIon 07-12 NM STRESS/REST MULTI Patient: OMER SANTOS Exam Date: 07/12/2022 : 1950 Gender:M Ordering : DR RUBEN LUO . Admission #: [id number] Family : DR VADIM VERONICA M.D. Order #: [id number] CLICK HERE TO VIEW EXAM RADIOLOGY REPORT [...] Strickland M.D. on 07/12/2022 at 15:17 Normal [facility] RENAL FUNCTION PANELon 07-12 Albumin [Mass/Vol] 3.3 g/dL Critically low 3.4-5.[address] [facility] Comment on above: Performed By: #### P THINT #### [facility] [address] [address] [address] Sarah Sánchez Calcium [Mass/Vol] 8.3 mg/dL Critically low 8.5-10.[address] [facility] Comment on above: Performed By: #### P THINT #### [facility] [address] [address] [address] Sarah Sánchez Chloride [Moles/Vol] 107 mmol/L Normal 98-107 [facility] Comment on above: Performed By: #### P THINT #### [facility] [address] [address] [address] Sarah Sánchez CO2 [Moles/Vol] 26.4 mmol/L Normal 21.0-32.0 [facility] Comment on above: Performed By: #### P THINT #### [facility] [address] [address] [address] Sarah Sánchez Creatinine [Mass/Vol] 1.98 mg/dL Critically high 0.70-1.30 [facility] Comment on above: Performed By: #### P THINT #### [facility] [address] [address] [address] Sarah Sánchez EGFR-AF [place] 40 mL/min/1.73m2 Critically low >=60 [facility] Comment on above: Performed By: #### P THINT #### [facility] [address] [address] [address] Sarah Sánchez EGFR-NON AF [place] 33 mL/min/1.73m2 Critically low >=60 [facility] Comment on above: Performed By: #### P THINT #### [facility] [address] [address] [address] Sarah Sánchez Glucose [Mass/Vol] 149 mg/dL Critically high 74-106 [facility] Comment on above: Performed By: #### P THINT #### [facility] [address] [address] [address] Sarah Sánchez Phosphate [Mass/Vol] 4.0 mg/dL Normal 2.6-4.7 [facility] Comment on above: Performed By: #### P THINT #### [facility] [address] [address] [address] Sarah Sánchez Potassium [Moles/Vol] 4.5 mmol/L Normal 3.5-5.1 [facility] Comment on above: Performed By: #### P THINT #### [facility] [address] [address] [address] Sarah Sánchez Sodium [Moles/Vol] 141 mmol/L Normal 136-145 [facility] Comment on above: Performed By: #### P THINT #### [facility] [address] [place] [address] Dr. Sarah Sánchez Urea nitrogen [Mass/Vol] 29.0 mg/dL Critically high 7.0-18.0 [facility] Comment on above: Performed By: #### P THINT #### [facility] [address] [place] [address] Dr. Sarah Sánchez UA RANDOM W/MICROSCOPICon BACTERIA TRACE Abnormal NONE SEEN [facility] Comment on above: Performed By: #### C VDTBH #### [facility] [address] [place] [address] Dr. Sarah Sánchez Bilirubin Ql (U) Negative Normal NEGATIVE [facility] Comment on above: Performed By: #### C VDTBH #### [facility] [address] [place] [address] Dr. Sarah Sánchez CAST NONE SEEN Normal NONE SEEN [facility] Comment on above: Performed By: #### C VDTBH #### [facility] [address] [place] [address] Dr. Sarah Sánchez Clarity (U) CLEAR Normal CLEAR [facility] Comment on above: Performed By: #### C VDTBH #### [facility] [address] [place] [address] Dr. Sarah Sánchez Color (U) LT. YELLOW Normal YELLOW [facility] Comment on above: Performed By: #### C VDTBH #### [facility] [address] [place] [address] Dr. Sarah Sánchez Crystals LM Nom (Urine sed) NONE SEEN Normal NONE SEEN [facility] Comment on above: Performed By: #### C VDTBH #### [facility] [address] [place] [address] Dr. Sarah Sánchez Epithelial cells LM Ql (Urine sed) RARE Normal NONE SEEN /RARE [facility] Comment on above: Performed By: #### C VDTBH #### [facility] [address] [place] [address] Dr. Sarah Sánchez Glucose Ql (U) 100 mg/dl Abnormal NEGATIVE [facility] Comment on above: Performed By: #### C VDTBH #### [facility] [address] [place] [address] Dr. Sarah Sánchez Hemoglobin Ql (U) MODERATE Abnormal NEGATIVE [facility] Comment on above: Performed By: #### C VDTBH #### [facility] [address] [place] [address] Dr. Sarah Sánchez Ketones Ql (U) Negative Normal NEGATIVE [facility] Comment on above: Performed By: #### C VDTBH #### [facility] [address] [place] [address] Dr. Sarah Sánchez LEUKOCYTES Negative Normal NEGATIVE [facility] Comment on above: Performed By: #### C VDTBH #### [facility] [address] [place] [address] Dr. Sarah Sánchez MUCOUS NONE SEEN Normal NONE SEEN [facility] Comment on above: Performed By: #### C VDTBH #### [facility] [address] [place] [address] Dr. Sarah Sánchez Nitrite Ql (U) Negative Normal [facility] Comment on above: Performed By: #### C VDTBH #### [facility] [address] [place] [address] Dr. Sarah Sánchez pH (U) 5.5 [pH] Normal 5-9 [facility] Comment on above: Performed By: #### C VDTBH #### [facility] [address] [place] [address] Dr. Sarah Sánchez RBC 2-5 Abnormal 0-2 [facility] Comment on above: Performed By: #### C VDTBH #### [facility] [address] [place] [address] Dr. Sarah Sánchez SPEC GRAVITY 1.025 Normal 1.005-<=1.02 5 [facility] Comment on above: Performed By: #### C VDTBH #### [facility] [address] [place] [address] Dr. Sarah Sánchez UA PROTEIN >300 Abnormal NEGATIVE/ TRACE [facility] Comment on above: Performed By: #### C VDTBH #### [facility] [address] [place] [address] Dr. Sarah Sánchez Urobilinogen Qn (U) 0.2 {Stevie'U}/dL Normal 0.2 - 1. 0 [facility] Comment on above: Performed By: #### C VDTBH #### [facility] [address] [place] [address] Dr. Sarah Sánchez WBC NONE SEEN Normal NONE SEEN [facility] Comment on above: Performed By: #### C VDTBH #### [facility] [address] [place] [address] Dr. Sarah Sánchez URINE T PROTEIN CREAT RATIOo n 07-12-2022 Protein (U) [Mass/Vol] 901.3 mg/dL Critically high <=12.0 [facility] Comment on above: Performed By: #### C VDTBH #### [facility] [address] [place] [address] Dr. Sarah Sánchez UR PROT CREAT RAT 7.26 Normal [facility] Comment on above: Performed By: #### C VDTBH #### [facility] [address] [place] [address] Dr. Sarah Sánchez URINE CREAT 124.19 mg/dL Normal 20.00-300.00 [facility] Comment on above: Performed By: #### C VDTBH #### [facility] [address] [place] [address] Dr. Sarah Sánchez VITAMIN D 25 OHon 07-12-2022 VIT D 25-OH 24.7 ng/mL Normal [facility] Comment on above: Performed By: #### H BSANS #### [facility] [address] [place] [address] Dr. Sarah Sánchez VIT D RANGES SEE BELOW Normal [facility] Comment on above: Result Comment: <20 ng/mL Vit D deficient 20 - <30 ng/mL Vit D insufficient 30 - 100 ng/mL Vit D sufficient >100 ng/mL Potential Toxicity Performed By: #### H BSANS #### [facility] [address] [place] [address] Dr. Sarah Sánchez XR COMPARISON OF OUTSIDE QUEENIE MSon 2022 XR COMPARISON OF OUTSIDE FILMS Radiology exam is complete. No Radiologist dictation. Please follow up with ordering provider. Normal [facility] Radiology exam is complete. No Radiologist dictation. Please follow up with ordering provider. [facility]SOL[facility] CBC AUTO DIFFon 07-02-2022 BASO # 0.0 103/ul Normal 0.0-0.1 [facility] Comment on above: Performed By: #### U DELFINO, RENAL, MG #### [facility] [address] [address] [address] Sarah Sánchez Basophils/100 WBC (Bld) 0.5 % Normal 0.2-2.0 [facility] Comment on above: Performed By: #### U DELFINO, RENAL, MG #### [facility] [address] [address] [address] Sarah Sánchez EO # 0.2 103/ul Normal 0.0-0.7 [facility] Comment on above: Performed By: #### U DELFINO, RENAL, MG #### [facility] [address] [address] [address] Sarah Sánchez Eosinophils/100 WBC (Bld) 3.4 % Normal 0.9-7.0 [facility] Comment on above: Performed By: #### U DELFINO, RENAL, MG #### [facility] [address] [address] [address] Sarah Sánchez Erythrocyte distribution width (RBC) [Ratio] 13.7 % Normal 11.0-15.0 [facility] Comment on above: Performed By: #### U DELFINO, RENAL, MG #### [facility] [address] [address] [address] Sarah Sánchez Hematocrit (Bld) [Volume fraction] 27.4 % Critically low 42.0-54.0 [facility] Comment on above: Performed By: #### U DELFINO, RENAL, MG #### [facility] [address] [address] [address] Sarah Sánchez Hemoglobin (Bld) [Mass/Vol] 9.1 g/dL Critically low 14.0-18.0 [facility] Comment on above: Performed By: #### U DELFINO, RENAL, MG #### [facility] [address] [place] [address] Dr. Sarah Sánchez IG # 0.05 10e3/ul Critically high 0.00-0.03 [facility] Comment on above: Performed By: #### U DELFINO, RENAL, MG #### [facility] [address] [place] [address] Dr. Sarah Sánchez IG % 0.8 % Critically high 0.0-0.5 [facility] Comment on above: Performed By: #### U DELFINO, RENAL, MG #### [facility] [address] [place] [address] Dr. Sarah Sánchez LYMPH # 1.3 103/ul Normal 1.2-3.8 [facility] Comment on above: Performed By: #### U DELFINO, RENAL, MG #### [facility] [address] [place] [address] Dr. Sarah Sánchez Lymphocytes/100 WBC (Bld) 20.3 % Critically low 20.5-60.0 [facility] Comment on above: Performed By: #### U DELFINO, RENAL, MG #### [facility] [address] [place] [address] Dr. Sarah Sánchez MANUAL DIFF REQ NO Normal [facility] Comment on above: Performed By: #### U DELFINO, RENAL, MG #### [facility] [address] [place] [address] Dr. Sarah Sánchez MCH (RBC) [Entitic mass] 30.2 pg Normal 25.9-34.0 [facility] Comment on above: Performed By: #### U DELFINO, RENAL, MG #### [facility] [address] [place] [address] Dr. Sarah Sánchez MCHC (RBC) [Mass/Vol] 33.2 g/dL Normal 29.9-35.2 [facility] Comment on above: Performed By: #### U DELFINO, RENAL, MG #### [facility] [address] [place] [address] Dr. Sarah Sánchez MCV (RBC) [Entitic vol] 91.0 fL Normal 80.0-94.0 [facility] Comment on above: Performed By: #### U DELFINO, RENAL, MG #### [facility] [address] [address] [address] Sarah Sánchez MONO # 0.4 103/ul Normal 0.3-0.8 [facility] Comment on above: Performed By: #### U DELFINO, RENAL, MG #### [facility] [address] [address] [address] Sarah Sánchez Monocytes/100 WBC (Bld) 6.7 % Normal 1.7-12.0 [facility] Comment on above: Performed By: #### U DELFINO, RENAL, MG #### [facility] [address] [place] [address] Dr. Sarah Sánchez NEUT # 4.5 103/ul Normal 1.4-6.5 [facility] Comment on above: Performed By: #### U DELFINO, RENAL, MG #### [facility] [address] [place] [address] Dr. Sarah Sánchez Neutrophils/100 WBC (Bld) 68.3 % Normal 43.0-75.0 [facility] Comment on above: Performed By: #### U DELFINO, RENAL, MG #### [facility] [address] [place] [address] Dr. Sarah Sánchez Platelet mean volume (Bld) [Entitic vol] 9.7 fL Normal 9.5-13.5 [facility] Comment on above: Performed By: #### U DELFINO, RENAL, MG #### [facility] [address] [address] [address] Sarah Sánchez PLT 142 103/ul Critically low 150-450 [facility] Comment on above: Performed By: #### U DELFINO, RENAL, MG #### [facility] [address] [place] [address] Dr. Sarah Sánchez RBC 3.01 106/ul Critically low 4.70-6.10 [facility] Comment on above: Performed By: #### U DELFINO, RENAL, MG #### [facility] [address] [place] [address] Dr. Sarah Sánchez WBC 6.5 103/ul Normal 4.0-11.0 [facility] Comment on above: Performed By: #### U DELFINO, RENAL, MG #### [facility] [address] [place] [address] Dr. Sarah Sánchez MRSA NARES #1on 07-02-2022 MRSA NARES #1 Culture Observations: NO GROWTH OF MRSA OR MSSA AT 48 HOURS. [facility] Comment on above: Performed By: #### P THINT #### [facility] [address] [place] [address] Dr. Sarah Sánchez MRSA NARES #2on 07-02-2022 MRSA NARES #2 Culture Observations: NO GROWTH OF MRSA OR MSSA AT 48 HOURS. [facility] Comment on above: Performed By: #### P THINT #### [facility] [address] [place] [address] Dr. Sarah Sánchez PROF CHEM 8 (BAS METB)on Anion gap [Moles/Vol] 12.8 mmol/L Normal [facility] Comment on above: Performed By: #### H BSANS #### [facility] [address] [place] [address] Dr. Sarah Sánchez Calcium [Mass/Vol] 8.0 mg/dL Critically low 8.5-10.1 [facility] Comment on above: Performed By: #### H BSANS #### [facility] [address] [place] [address] Dr. Sarah Sánchez Chloride [Moles/Vol] 113 mmol/L Critically high 98-107 [facility] Comment on above: Performed By: #### H BSANS #### [facility] [address] [place] [address] Dr. Sarah Sánchez CO2 [Moles/Vol] 21.9 mmol/L Normal 21.0-32.0 [facility] Comment on above: Performed By: #### H BSANS #### [facility] [address] [place] [address] Dr. Sarah Sánchez Creatinine [Mass/Vol] 2.49 mg/dL Critically high 0.70-1.30 [facility] Comment on above: Performed By: #### H BSANS #### [facility] [address] [address] [address] Sarah Sánchez EGFR-AF [place] 31 mL/min/1.73m2 Critically low >=60 [facility] Comment on above: Performed By: #### H BSANS #### [facility] [address] [address] [address] Sarah Sánchez EGFR-NON AF [place] 26 mL/min/1.73m2 Critically low >=60 [facility] Comment on above: Performed By: #### H BSANS #### [facility] [address] [place] [address] Dr. Sarah Sánchez Glucose [Mass/Vol] 153 mg/dL Critically high 74-106 [facility] Comment on above: Performed By: #### H BSANS #### [facility] [address] [address] [address] Sarah Sánchez Potassium [Moles/Vol] 4.7 mmol/L Normal 3.5-5.1 [facility] Comment on above: Performed By: #### H BSANS #### [facility] [address] [place] [address] Dr. Sarah Sánchez Sodium [Moles/Vol] 143 mmol/L Normal 136-145 [facility] Comment on above: Performed By: #### H BSANS #### [facility] [address] [address] [address] Sarah Sánchez Urea nitrogen [Mass/Vol] 50.0 mg/dL Critically high 7.0-18.0 [facility] Comment on above: Performed By: #### H BSANS #### [facility] [address] [address] [address] Sarah Sánchez Urea nitrogen/Creatinine [Mass ratio] 20.1 mg/mg Normal [facility] Comment on above: Performed By: #### H BSANS #### [facility] [address] [address] [address] Sarah Sánchez PROTIMEon 07-02-2022 INR Coag (PPP) [Relative time] 0.98 {INR} Normal [facility] Comment on above: Performed By: #### U RTPCR #### [facility] [address] [place] [address] Dr. Sarah Sánchez INR GUIDELINES SEE BELOW Normal [facility] Comment on above: Result Comment: DARIUS RED INR: 2.0 - 3.0 CONDITIONS NOT LISTED BELOW 2.5 - 3.5 FOR PROSTHETIC HEART VALVE REPLACEMENT 2.5 - 3.5 RECURRENT THROMBOSIS Performed By: #### U RTPCR #### [facility] [address] [place] [address] Dr. Sarah Sánchez PT Coag (PPP) [Time] 10.4 s Normal 9.0-11.6 [facility] Comment on above: Performed By: #### U RTPCR #### [facility] [address] [place] [address] Dr. Sarah Sánchez PTTon 07-02-2022 aPTT Coag (Bld) [Time] 20.5 s Critically low 22.3-36.2 [facility] Comment on above: Performed By: #### U RTPCR #### [facility] [address] [place] [address] Dr. Sarah Sánchez XR CHEST 2 Von [...] DIANE DUNCAN Date: 2022-07-02 09:05 Normal [facility] HEMOGRAM AND PLATELon 2022 Hematocrit (Bld) [Volume fraction] 28.5 % Critically low 42.0-54.0 [facility] Comment on above: Performed By: #### U RTPCR #### [facility] [address] [place] [address] Dr. Sarah Sánchez Hemoglobin (Bld) [Mass/Vol] 10.1 g/dL Critically low 14.0-18.0 [facility] Comment on above: Performed By: #### U RTPCR #### [facility] [address] [place] [address] Dr. Sarah Sánchez MCH (RBC) [Entitic mass] 31.3 pg Normal 25.9-34.0 [facility] Comment on above: Performed By: #### U RTPCR #### [facility] [address] [place] [address] Dr. Sarah Sánchez MCHC (RBC) [Mass/Vol] 35.4 g/dL Critically high 29.9-35.2 [facility] Comment on above: Performed By: #### U RTPCR #### [facility] [address] [place] [address] Dr. Sarah Sánchez MCV (RBC) [Entitic vol] 88.2 fL Normal 80.0-94.0 [facility] Comment on above: Performed By: #### U RTPCR #### [facility] [address] [place] [address] Dr. Sarah Sánchez PLT 171 103/ul Normal 150-450 [facility] Comment on above: Performed By: #### U RTPCR #### [facility] [address] [place] [address] Dr. Sarah Sánchez RBC 3.23 106/ul Critically low 4.70-6.10 [facility] Comment on above: Performed By: #### U RTPCR #### [facility] [address] [place] [address] Dr. Sarah Sánchez WBC 8.1 103/ul Normal 4.0-11.0 [facility] Comment on above: Performed By: #### U RTPCR #### [facility] [address] [place] [address] Dr. Sarah Sánchez CT LUMBAR SPINE WO [...] neural foraminal stenosis. At L2-L3 there is pfqs-nw-bahqehjr bilateral neural foraminal stenosis. At L3-L4 mild [...] Grabiel Sutton MD 06/04/22 Final result Normal [facility] CT THORACIC SPINE WO CONTRAS [...] disc degenerative changes with bilateral facet arthropathy. Wlml-mr-miwxpykl right neural foraminal stenosis. Advanced disc degenerative changes T9-T10 with kzwe-jh-gcwthvha right neural foraminal stenoses. At T10-T11 there [...] Grabiel Sutton MD 06/04/22 Final result Normal [facility] DEXA BONE DENSITY AXIAL SKEL ETONon 05-30-2022 DEXA BONE DENSITY AXIAL SKELETON EXAMINATION: BONE DENSITOMETRY 05/30/2022 11:17 am TECHNIQUE: A bone density dual x-ray absorptiometry (DXA) scan was performed of the lumbar spine and left hip on a Pumpic system. COMPARISON: None. HISTORY: ORDERING SYSTEM PROVIDED [...] Rakesh Atwood DO 05/30/22 Final result Normal [facility] Normal bone mineral density by [...] have additional risk factors. Template code: [id number] [facility] EXAMINATION: BONE DENSITOMETRY 05/30/2022 11:17 am TECHNIQUE: A bone density dual x-ray absorptiometry (DXA) scan was performed of the lumbar spine and left hip on a Pumpic system. COMPARISON: None. HISTORY: ORDERING SYSTEM PROVIDED HISTORY: Osteopenia of lumbar spine Gender: M Age: 71 y/o FINDINGS: LUMBAR SPINE: L1-L4 BMD: 2.579 g/cm2 T-score: 11.3 Z-score: 11.9 LEFT TOTAL HIP: BMD: 1.212 g/cm2 T-score: 0.8 Z-score: 1.5 LEFT FEMORAL NECK: BMD: 1.204 g/cm2 T-score: 1.0 Z-score: 2.3 FRAX: Not Indicated. [facility] Rakesh Atwood DO - 05/30/2022 EXAMINATION: BONE DENSITOMETRY 05/30/2022 11:17 am TECHNIQUE: A bone density dual x-ray absorptiometry (DXA) scan was performed of the lumbar spine and left hip on a Pumpic system. COMPARISON: None. HISTORY: ORDERING SYSTEM PROVIDED [...] have additional risk factors. Template code: [id number] [employer] Phone: Radiology Study observation (narrative) [employer] Phone: DEXA BONE DENSITY AXIAL SKEL ETONOrdered By: Rakesh Atwood on 05-30-2022 [employer] Phone: MRI LUMBAR SPINE WO CONTRAST on [...] L3-L4: Retrolisthesis and facet hypertrophy resulting in ekgl-cm-wqyntmcg right and moderate to severe left-sided neural [...] John Vega MD 05/08/22 Final result Normal [facility] Degenerative and operative changes as detailed above. Nerve root impingement at L4-5 and L5-S1. [facility] CONSOLIDATED EXAMINATION: MRI OF THE LUMBAR [...] L3-L4: Retrolisthesis and facet hypertrophy resulting in hjvb-rk-dejprsew right and moderate to severe left-sided neural [...] impingement of both exiting L5 nerve roots. [facility] John Vega MD - 05/08/2022 [...] L3-L4: Retrolisthesis and facet hypertrophy resulting in kpkt-wt-uxrwggwz right and moderate to severe left-sided neural [...] Nerve root impingement at L4-5 and L5-S1. [employer] Phone: Radiology Study observation (narrative) [employer] Phone: MRI LUMBAR SPINE WO CONTRAST Ordered By: John Vega on 05-08-2022 [email or web address]: PTH INTACTon 05-08-2022 PTH, Intact 81 pg/mL Critically high 15-65 [facility] Comment on above: Performed By: #### U DELFINO, RENAL, MG #### [facility] [address] [address] [address] Sarah Sánchez FERRITINon 05-07-2022 Ferritin [Mass/Vol] 96.0 ng/mL Normal 26.0-388.0 [facility] Comment on above: Performed By: #### U RTPCR #### [facility] [address] [place] [address] Dr. Sarah Sánchez HEMOGRAM AND PLATELon 2022 Hematocrit (Bld) [Volume fraction] 24.6 % Critically low 42.0-54.0 [facility] Comment on above: Performed By: #### U DELFINO, RENAL, MG #### [facility] [address] [address] [address] Sarah Sánchez Hemoglobin (Bld) [Mass/Vol] 8.7 g/dL Critically low 14.0-18.0 [facility] Comment on above: Performed By: #### U DELFINO, RENAL, MG #### [facility] [address] [place] [address] Dr. Sarah Sánchez MCH (RBC) [Entitic mass] 31.2 pg Normal 25.9-34.0 [facility] Comment on above: Performed By: #### U DELFINO, RENAL, MG #### [facility] [address] [place] [address] Dr. Sarah Sánchez MCHC (RBC) [Mass/Vol] 35.4 g/dL Critically high 29.9-35.2 [facility] Comment on above: Performed By: #### U DELFINO, RENAL, MG #### [facility] [address] [place] [address] Dr. Sarah Sánchez MCV (RBC) [Entitic vol] 88.2 fL Normal 80.0-94.0 [facility] Comment on above: Performed By: #### U DELFINO, RENAL, MG #### [facility] [address] [place] [address] Dr. Sarah Sánchez PLT 204 103/ul Normal 150-450 [facility] Comment on above: Performed By: #### U DELFINO, RENAL, MG #### [facility] [address] [place] [address] Dr. Sarah Sánchez RBC 2.79 106/ul Critically low 4.70-6.10 [facility] Comment on above: Performed By: #### U DELFINO, RENAL, MG #### [facility] [address] [place] [address] Dr. Sarah Sánchez WBC 6.9 103/ul Normal 4.0-11.0 [facility] Comment on above: Performed By: #### U DELFINO, RENAL, MG #### [facility] [address] [place] [address] Dr. Sarah Sánchez IRON AND TIBCon 05-07-2022 % SATURATION 28.3 % Normal [facility] Comment on above: Performed By: #### U RTPCR #### [facility] [address] [place] [address] Dr. Sarah Sánchez Iron [Mass/Vol] 72.0 ug/dL Normal 65.0-175.0 [facility] Comment on above: Performed By: #### U RTPCR #### [facility] [address] [place] [address] Dr. Sarah Sánchez TIBC DIRECT 254.0 ug/dL Normal 250.0-450.0 [facility] Comment on above: Performed By: #### U RTPCR #### [facility] [address] [place] [address] Dr. Sarah Sánchez MAGNESIUMon 05-07-2022 Magnesium [Mass/Vol] 1.7 mg/dL Critically low 1.8-2.4 [facility] Comment on above: Performed By: #### H BSANS #### [facility] [address] [place] [address] Dr. Sarah Sánchez RENAL FUNCTION PANELon 05-07 Albumin [Mass/Vol] 3.2 g/dL Critically low 3.4-5.0 [facility] Comment on above: Performed By: #### C VDTBH #### [facility] [address] [place] [address] Dr. Sarah Sánchez Calcium [Mass/Vol] 8.5 mg/dL Normal 8.5-10.1 [facility] Comment on above: Performed By: #### C VDTBH #### [facility] [address] [place] [address] Dr. Sarah Sánchez Chloride [Moles/Vol] 106 mmol/L Normal 98-107 [facility] Comment on above: Performed By: #### C VDTBH #### [facility] [address] [place] [address] Dr. Sarah Sánchez CO2 [Moles/Vol] 28.1 mmol/L Normal 21.0-32.0 [facility] Comment on above: Performed By: #### C VDTBH #### [facility] [address] [address] [address] Sarah Sánchez Creatinine [Mass/Vol] 2.10 mg/dL Critically high 0.70-1.30 [facility] Comment on above: Performed By: #### C VDTBH #### [facility] [address] [address] [address] Sarah Sánchez EGFR-AF [place] 38 mL/min/1.73m2 Critically low >=60 [facility] Comment on above: Performed By: #### C VDTBH #### [facility] [address] [address] [address] Sarah Sánchez EGFR-NON AF [place] 31 mL/min/1.73m2 Critically low >=60 [facility] Comment on above: Performed By: #### C VDTBH #### [facility] [address] [address] [address] Sarah Sánchez Glucose [Mass/Vol] 141 mg/dL Critically high 74-106 [facility] Comment on above: Performed By: #### C VDTBH #### [facility] [address] [address] [address] Sarah Sánchez Phosphate [Mass/Vol] 4.1 mg/dL Normal 2.6-4.7 [facility] Comment on above: Performed By: #### C VDTBH #### [facility] [address] [address] [address] Sarah Sánchez Potassium [Moles/Vol] 5.2 mmol/L Critically high 3.5-5.1 [facility] Comment on above: Performed By: #### C VDTBH #### [facility] [address] [address] [address] Sarah Sánchez Sodium [Moles/Vol] 141 mmol/L Normal 136-145 [facility] Comment on above: Performed By: #### C VDTBH #### [facility] [address] [address] [address] Sarah Sánchez Urea nitrogen [Mass/Vol] 34.0 mg/dL Critically high 7.0-18.0 [facility] Comment on above: Performed By: #### C VDTBH #### [facility] [address] [address] [address] Sarah Sánchez UA RANDOM W/MICROSCOPICon BACTERIA NONE SEEN Normal NONE SEEN [facility] Comment on above: Performed By: #### U AMIC #### [facility] [address] [place] [address] Dr. Sarah Sánchez Bilirubin Ql (U) Negative Normal NEGATIVE [facility] Comment on above: Performed By: #### U AMIC #### [facility] [address] [place] [address] Dr. Sarah Sánchez CAST NONE SEEN Normal NONE SEEN [facility] Comment on above: Performed By: #### U AMIC #### [facility] [address] [place] [address] Dr. Sarah Sánchez Clarity (U) CLEAR Normal CLEAR [facility] Comment on above: Performed By: #### U AMIC #### [facility] [address] [place] [address] Dr. Sarah Sánchez Color (U) LT. YELLOW Normal YELLOW [facility] Comment on above: Performed By: #### U AMIC #### [facility] [address] [address] [address] Sarah Sánchez Crystals LM Nom (Urine sed) NONE SEEN Normal NONE SEEN [facility] Comment on above: Performed By: #### U AMIC #### [facility] [address] [place] [address] Dr. Sarah Sánchez Epithelial cells LM Ql (Urine sed) FEW Abnormal NONE SEEN /RARE [facility] Comment on above: Performed By: #### U AMIC #### [facility] [address] [place] [address] Dr. Sarah Sánchez Glucose Ql (U) Negative Normal NEGATIVE [facility] Comment on above: Performed By: #### U AMIC #### [facility] [address] [place] [address] Dr. Sarah Sánchez Hemoglobin Ql (U) SMALL Abnormal NEGATIVE [facility] Comment on above: Performed By: #### U AMIC #### [facility] [address] [address] [address] Sarah Sánchez Ketones Ql (U) Negative Normal NEGATIVE [facility] Comment on above: Performed By: #### U AMIC #### [facility] [address] [address] [address] Sarah Sánchez LEUKOCYTES Negative Normal NEGATIVE [facility] Comment on above: Performed By: #### U AMIC #### [facility] [address] [address] [address] Sarah Sánchez MUCOUS SMALL Abnormal NONE SEEN [facility] Comment on above: Performed By: #### U AMIC #### [facility] [address] [place] [address] Dr. Sarah Sánchez Nitrite Ql (U) Negative Normal NEGATIVE [facility] Comment on above: Performed By: #### U AMIC #### [facility] [address] [place] [address] Dr. Sarah Sánchez pH (U) 5.5 [pH] Normal 5-9 [facility] Comment on above: Performed By: #### U AMIC #### [facility] [address] [place] [address] Dr. Sarah Sánchez RBC 0-2 Normal 0-2 [facility] Comment on above: Performed By: #### U AMIC #### [facility] [address] [place] [address] Dr. Sarah Sánchez SPEC GRAVITY 1.020 Normal 1.005-<=1.[address] [place] [address] Comment on above: Performed By: #### U AMIC #### [facility] [address] [place] [address] Dr. Sarah Sánchez UA PROTEIN >300 Abnormal NEGATIVE/ TRACE [facility] Comment on above: Performed By: #### U AMIC #### [facility] [address] [place] [address] Dr. Sarah Sánchez Urobilinogen Qn (U) 0.2 {Stevie'U}/dL Normal 0.2 - 1. 0 [facility] Comment on above: Performed By: #### U AMIC #### [facility] [address] [place] [address] Dr. Sarah Sánchez WBC NONE SEEN Normal NONE SEEN [facility] Comment on above: Performed By: #### U AMIC #### [facility] [address] [place] [address] Dr. Sarah Sánchez URIC ACID SERUMon 05-07-2022 Urate [Mass/Vol] 6.6 mg/dL Normal 3.5-7.2 [facility] Comment on above: Performed By: #### C VDTBH #### [facility] [address] [place] [address] Dr. Sarah Sánchez URINE T PROTEIN CREAT RATIOo n 05-07-2022 Protein (U) [Mass/Vol] 422.7 mg/dL Critically high <=12.0 [facility] Comment on above: Performed By: #### U DELFINO, RENAL, MG #### [facility] [address] [place] [address] Dr. Sarah Sánchez UR PROT CREAT RAT 4.90 Normal [facility] Comment on above: Performed By: #### U DELFINO, RENAL, MG #### [facility] [address] [place] [address] Dr. Sarah Sánchez URINE CREAT 86.31 mg/dL Normal 20.00-300.00 [facility] Comment on above: Performed By: #### U DELFINO, RENAL, MG #### [facility] [address] [place] [address] Dr. Sarah Sánchez VIT B12 AND FOLATEon 023 Cobalamin (Vitamin B12) [Mass/Vol] 824.0 pg/mL Normal 193.0-986.0 [facility] Comment on above: Performed By: #### U RTPCR #### [facility] [address] [place] [address] Dr. Sarah Sánchez FOLATE 21.80 ng/mL Normal 8.60-58.90 [facility] Comment on above: Performed By: #### U RTPCR #### [facility] [address] [place] [address] Dr. Sarah Sánchez VITAMIN D 25 OHon 05-07-2022 VIT D 25-OH 21.5 ng/mL Normal [facility] Comment on above: Performed By: #### U RTPCR #### [facility] [address] [address] [address] Sarah Sánchez VIT D RANGES SEE BELOW Normal [facility] Comment on above: Result Comment: <20 ng/mL Vit D deficient 20 - <30 ng/mL Vit D insufficient 30 - 100 ng/mL Vit D sufficient >100 ng/mL Potential Toxicity Performed By: #### U RTPCR #### [facility] [address] [address] [address] Sarah Sánchez Glucose Glucometer (BldC) [M ass/Vol]Ordered By: Orlando Beaver on 04-16-2022 Glucose [Mass/Vol] 150 mg/dL [facility] Comment on above: Random Glucose Refer ence Range is dependent on time and content of last meal. Glucose of more than 200 mg/dL in a nonstressed, ambulatory subject supports the diagnosis of Diabetes Mellitus. GLYCOHEMOGLOBIN A1Con 2022 ADA RECOMMENDATION SEE BELOW Normal [facility] Comment on above: Result Comment: ADA RECOMMENDED LIMIT 4.0 - 6.0 ADA THERAPEUTIC TARGET < 7.0 ACTION SUGGESTED > 7.0 Performed By: #### H BSANS #### [facility] [address] [place] [address] Dr. Sarah Sánchez Glucose [Mass/Vol] 177 mg/dL Normal [facility] Comment on above: Performed By: #### H BSANS #### [facility] [address] [address] [address] Sarah Sánchez HbA1c (Bld) [Mass fraction] 7.8 % Critically high 4.5-6.2 [facility] Comment on above: Performed By: #### H BSANS #### [facility] [address] [place] [address] Dr. Sarah Sánchez LIPID PROFILEon 04-13-2022 CHOL-HDL RATIO NORM SEE BELOW Normal [facility] Comment on above: Result Comment: 3.3 - 4.4 LOW RISK 4.4 - 7.1 AVERAGE RISK 7.1 - 11.0 MODERATE RISK >11.0 HIGH RISK Performed By: #### U RTPCR #### [facility] [address] [address] [address] Sarah Sánchez Cholesterol [Mass/Vol] 124 mg/dL Normal <=[address] [facility] Comment on above: Performed By: #### U RTPCR #### [facility] [address] [address] [address] Sarah Sánchez Cholesterol in HDL [Mass/Vol] 38 mg/dL Critically low 40-60 [facility] Comment on above: Performed By: #### U RTPCR #### [facility] [address] [address] [address] Sarah Sánchez Cholesterol in LDL [Mass/Vol] 51.8 mg/dL Normal [facility] Comment on above: Performed By: #### U RTPCR #### [facility] [address] [place] [address] Dr. Sarah Sánchez Cholesterol.total/Chol esterol in HDL [Mass ratio] 3.3 {ratio} Normal [facility] Comment on above: Performed By: #### U RTPCR #### [facility] [address] [place] [address] Dr. Sarah Sánchez HDL NORMAL > or = 60 mg/dl - LOW CARDIOVASCULAR RISK <40 mg/dl - HIGH CARDIOVASCULAR RISK Normal [facility] Comment on above: Performed By: #### U RTPCR #### [facility] [address] [place] [address] Dr. Sarah Sánchez LDL CALC NORMAL SEE BELOW Normal [facility] Comment on above: Result Comment: <100 mg/dl OPTIMAL 100 - 129 mg/dl NEAR OR ABOVE OPTIMAL 130 - 159 mg/dl BORDERLINE HIGH 160 - 189 mg/dl HIGH >190 mg/dl VERY HIGH Performed By: #### U RTPCR #### [facility] [address] [place] [address] Dr. Sarah Sánchez Triglyceride [Mass/Vol] 171 mg/dL Critically high <=150 [facility] Comment on above: Performed By: #### U RTPCR #### [facility] [address] [place] [address] Dr. Sarah Sánchez VLDL CALC 34.2 mg/dL Normal [facility] Comment on above: Performed By: #### U RTPCR #### [facility] [address] [place] [address] Dr. Sarah Sánchez PROF 14(COMP METB)on 023 Albumin [Mass/Vol] 2.9 g/dL Critically low 3.4-5.0 [facility] Comment on above: Performed By: #### U RTPCR #### [facility] [address] [place] [address] Dr. Sarah Sánchez Albumin/Globulin [Mass ratio] 0.9 {ratio} Normal [facility] Comment on above: Performed By: #### U RTPCR #### [facility] [address] [place] [address] Dr. Sarah Sánchez ALP [Catalytic activity/Vol] 94 U/L Normal 46-116 [facility] Comment on above: Performed By: #### U RTPCR #### [facility] [address] [place] [address] Dr. Sarah Sánchez ALT [Catalytic activity/Vol] 21 U/L Normal 16-63 [facility] Comment on above: Performed By: #### U RTPCR #### [facility] [address] [place] [address] Dr. Sarah Sánchez Anion gap [Moles/Vol] 11.4 mmol/L Normal [facility] Comment on above: Performed By: #### U RTPCR #### [facility] [address] [place] [address] Dr. Sarah Sánchez AST [Catalytic activity/Vol] 19 U/L Normal 15-37 [facility] Comment on above: Performed By: #### U RTPCR #### [facility] [address] [place] [address] Dr. Sarah Sánchez Bilirubin [Mass/Vol] 0.5 mg/dL Normal 0.2-1.0 [facility] Comment on above: Performed By: #### U RTPCR #### [facility] [address] [place] [address] Dr. Sarah Sánchez Calcium [Mass/Vol] 8.4 mg/dL Critically low 8.5-10.1 [facility] Comment on above: Performed By: #### U RTPCR #### [facility] [address] [place] [address] Dr. Sarah Sánchez Chloride [Moles/Vol] 106 mmol/L Normal 98-107 [facility] Comment on above: Performed By: #### U RTPCR #### [facility] [address] [address] [address] Sarah Sánchez CO2 [Moles/Vol] 27.3 mmol/L Normal 21.0-32.0 [facility] Comment on above: Performed By: #### U RTPCR #### [facility] [address] [place] [address] Dr. Sarah Sánchez Creatinine [Mass/Vol] 2.40 mg/dL Critically high 0.70-1.30 [facility] Comment on above: Performed By: #### U RTPCR #### [facility] [address] [place] [address] Dr. Sarah Sánchez EGFR-AF [place] 32 mL/min/1.73m2 Critically low >=60 [facility] Comment on above: Performed By: #### U RTPCR #### [facility] [address] [place] [address] Dr. Sarah Sánchez EGFR-NON AF [place] 27 mL/min/1.73m2 Critically low >=60 [facility] Comment on above: Performed By: #### U RTPCR #### [facility] [address] [place] [address] Dr. Sarah Sánchez Globulin (S) [Mass/Vol] 3.1 g/dL Normal [facility] Comment on above: Performed By: #### U RTPCR #### [facility] [address] [place] [address] Dr. Sarah Sánchez Glucose [Mass/Vol] 159 mg/dL Critically high 74-106 T [facility] Comment on above: Performed By: #### U RTPCR #### [facility] [address] [place] [address] Dr. Sarah Sánchez Potassium [Moles/Vol] 4.7 mmol/L Normal 3.5-5.1 [facility] Comment on above: Performed By: #### U RTPCR #### [facility] [address] [address] [address] Sarah Sánchez Protein [Mass/Vol] 6.0 g/dL Critically low 6.4-8.2 [facility] Comment on above: Performed By: #### U RTPCR #### [facility] [address] [address] [address] Sarah Sánchez Sodium [Moles/Vol] 140 mmol/L Normal 136-145 [facility] Comment on above: Performed By: #### U RTPCR #### [facility] [address] [place] [address] Dr. Sarah Sánchez Urea nitrogen [Mass/Vol] 32.0 mg/dL Critically high 7.0-18.0 [facility] Comment on above: Performed By: #### U RTPCR #### [facility] [address] [place] [address] Dr. Sarah Sánchez Urea nitrogen/Creatinine [Mass ratio] 13.3 mg/mg Normal [facility] Comment on above: Performed By: #### U RTPCR #### [facility] [address] [place] [address] Dr. Sarah Sánchez COVID-19 SOFIAOrdered By: Rosalba Beaver on 04-12-2022 SARS-CoV+SARS-CoV-2 (COVID-19) Ag IA.rapid Ql (Resp) Negative Negative [facility] Comment on above: This is a duplicate Kyleigh SARS Antigen (SARA) result to be used for statistical tracking purpose only. No Panel InformationOrdered By: Orlando Beaver on 04-12-2022 SARS Antigen (LFIA) [facility] HEMOGRAM AND PLATELon 2021 Hematocrit (Bld) [Volume fraction] 29.0 % Critically low 42.0-54.0 [facility] Comment on above: Performed By: #### P THINT #### [facility] [address] [place] [address] Dr. Sarah Sánchez Hemoglobin (Bld) [Mass/Vol] 9.8 g/dL Critically low 14.0-18.0 [facility] Comment on above: Performed By: #### P THINT #### [facility] [address] [place] [address] Dr. Sarah Sánchez MCH (RBC) [Entitic mass] 30.1 pg Normal 25.9-34.0 [facility] Comment on above: Performed By: #### P THINT #### [facility] [address] [place] [address] Dr. Sarah Sánchez MCHC (RBC) [Mass/Vol] 33.8 g/dL Normal 29.9-35.2 [facility] Comment on above: Performed By: #### P THINT #### [facility] [address] [place] [address] Dr. Sarah Sánchez MCV (RBC) [Entitic vol] 89.0 fL Normal 80.0-94.0 [facility] Comment on above: Performed By: #### P THINT #### [facility] [address] [place] [address] Dr. Sarah Sánchez PLT 184 103/ul Normal 150-450 [facility] Comment on above: Performed By: #### P THINT #### [facility] [address] [place] [address] Dr. Sarah Sánchez RBC 3.26 106/ul Critically low 4.70-6.10 [facility] Comment on above: Performed By: #### P THINT #### [facility] [address] [place] [address] Dr. Sarah Sánchez WBC 7.7 103/ul Normal 4.0-11.0 [facility] Comment on above: Performed By: #### P THINT #### [facility] [address] [place] [address] Dr. Sarah Sánchez [facility] SARS-CoV-2 (COVID-19) RNA VINICIO+probe Ql (Unsp spec) Not detected Normal NOT DETECTED [facility] Comment on above: Result Comment: This test is not yet approved or cleared by the [place] FDA. When there are no FDA-approved or cleared tests available, and other criteria are met, FDA can make tests available under an emergency access mechanism called an Emergency Use Authorization (EUA). The EUA for this test is supported by the [place] of Health and Human Service's (HHS's) declaration [...] SARS-CoV-2. Performed By: #### C VDTB #### [facility] [address] [place] [address] Dr. Sarah Sánchez IMMUNOFIX ELEC, PROTEIN ELEC URINEon 12-13-2021 Albumin, U 71.9 % Normal [facility] Comment on above: Performed By: #### H BSANS #### [facility] [address] [place] [address] Dr. Sarah Sánchez Wmrqk-6-Whljgyrj, U 3.3 % Normal [facility] Comment on above: Performed By: #### H BSANS #### [facility] [address] [place] [address] Dr. Sarah Sánchez Adfqd-2-Gpqkiyio, U 5.8 % Normal [facility] Comment on above: Performed By: #### H BSANS #### [facility] [address] [place] [address] Dr. Sarah Sánchez Beta Globulin, U 10.2 % Normal [facility] Comment on above: Performed By: #### H BSANS #### [facility] [address] [place] [address] Dr. Sarah Sánchez Gamma Globulin, U 8.7 % Normal [facility] Comment on above: Performed By: #### H BSANS #### [facility] [address] [place] [address] Dr. Sarah Sánchez Immunofixation Result, Urine Comment Normal [facility] Comment on above: Result Comment: No m onoclonality detected. Performed By: #### H BSANS #### [facility] [address] [place] [address] Dr. Sarah Sánchez M-Jovon, % Not Observed Normal Not Observed [facility] Comment on above: Performed By: #### H BSANS #### [facility] [address] [place] [address] Dr. Sarah Sánchez Note: Comment Normal [facility] Comment on above: Result Comment: Prot ein electrophoresis scan will follow via computer, mail, or grain buyer delivery. Performed By: #### H BSANS #### [facility] [address] [place] [address] Dr. Sarah Sánchez PDF . Normal [facility] Comment on above: Performed By: #### H BSANS #### [facility] [address] [place] [address] Dr. Sarah Sánchez Protein (U) [Mass/Vol] 315.2 mg/dL Normal Not Estab. T [facility] Comment on above: Result Comment: Resu lts confirmed on dilution. Performed By: #### H BSANS #### [facility] [address] [place] [address] Dr. Sarah Sánchez IMMUNOFIXATION(GRISELDA),PROTEIN ELEC(PE),FREon 12-13-2021 Albumin [Mass/Vol] 3.3 g/dL Normal 2.9-4.4 [facility] Comment on above: Performed By: #### U DELFINO, RENAL, MG #### [facility] [address] [place] [address] Dr. Sarah Sánchez Albumin/Globulin [Mass ratio] 1.3 {ratio} Normal 0.7-1.7 [facility] Comment on above: Performed By: #### U DELFINO, RENAL, MG #### [facility] [address] [place] [address] Dr. Sarah Sánchez Sqgjh-5-Tlgqeumz 0.2 g/dL Normal 0.0-0.4 [facility] Comment on above: Performed By: #### U DELFINO, RENAL, MG #### [facility] [address] [address] [address] Sarah Sánchez Nviys-6-Zmtwdqgz 0.8 g/dL Normal 0.4-1.0 [facility] Comment on above: Performed By: #### U DELFINO, RENAL, MG #### [facility] [address] [address] [address] Sarah Sánchez Beta Globulin 0.9 g/dL Normal 0.7-1.3 [facility] Comment on above: Performed By: #### U DELFINO, RENAL, MG #### [facility] [address] [address] [address] Sarah Sánchez Free [place] Lt Chains,S 41.7 mg/L Critically high 3.3-19.4 [facility] Comment on above: Performed By: #### U DELFINO, RENAL, MG #### [facility] [address] [address] [address] Sarah Sánchez Free Lambda Lt Chains,S 29.4 mg/L Critically high 5.7-26.3 [facility] Comment on above: Performed By: #### U DELFINO, RENAL, MG #### [facility] [address] [address] [address] Sarah Sánchez Gamma Globulin 0.7 g/dL Normal 0.4-1.8 [facility] Comment on above: Performed By: #### U DELFINO, RENAL, MG #### [facility] [address] [address] [address] Sarah Sánchez Globulin (S) [Mass/Vol] 2.7 g/dL Normal 2.2-3.9 [facility] Comment on above: Performed By: #### U DELFINO, RENAL, MG #### [facility] [address] [address] [address] Sarah Sánchez Immunofixation Result, Serum Comment Normal [facility] Comment on above: Result Comment: No m onoclonality detected. Performed By: #### U DELFINO, RENAL, MG #### [facility] [address] [address] [address] Sarah Sánchez Immunoglobulin A, Qn, Serum 172 mg/dL Normal 61-437 [facility] Comment on above: Performed By: #### U DELFINO, RENAL, MG #### [facility] [address] [address] [address] Sarah Sánchez Immunoglobulin G, Qn, Serum 769 mg/dL Normal 603-1613 [facility] Comment on above: Performed By: #### U DELFINO, RENAL, MG #### [facility] [address] [address] [address] Sarah Sánchez Immunoglobulin M, Qn, Serum 71 mg/dL Normal 15-143 [facility] Comment on above: Performed By: #### U DELFINO, RENAL, MG #### [facility] [address] [address] [address] Sarah Sánchez [place]/Lambda Ratio, S 1.42 Normal 0.26-1.65 [facility] Comment on above: Performed By: #### U DELFINO, RENAL, MG #### [facility] [address] [address] [address] Sarah Sánchez M-Jovon Not Observed Normal Not Observed [facility] Comment on above: Performed By: #### U DELFINO, RENAL, MG #### [facility] [address] [address] [address] Sarah Sánchez PDF . Normal [facility] Comment on above: Performed By: #### U DELFINO, RENAL, MG #### [facility] [address] [address] [address] Sarah Sánchez Please note: Comment Normal [facility] Comment on above: Result Comment: Prot ein electrophoresis scan will follow via computer, mail, or grain buyer delivery. Performed By: #### U DELFINO, RENAL, MG #### [facility] [address] [address] [address] Sarah Sánchez Protein [Mass/Vol] 6.0 g/dL Normal 6.0-8.5 [facility] Comment on above: Performed By: #### U DELFINO, RENAL, MG #### [facility] [address] [place], [place] [address] Dr. Sarah Sánchez PTH INTACTon 12-12-2021 PTH, Intact 67 pg/mL Critically high 15-65 [facility] Comment on above: Performed By: #### P THINT #### [facility] [address] [address] [address] Sarah Sánchez HEP B SURFACE ANTIGEN SCREEN on 12-10-2021 HBsAg Screen Negative Normal Negative [facility] Comment on above: Performed By: #### H BSANS #### [facility] [address] [address] [address] Sarah Sánchez VIT D 25-OH [facility]ABC[facility]on 2021 Vitamin D, 25-Hydroxy 54.1 ng/mL Normal 30.0-100.0 [facility] Comment on above: Result Comment: Rebecca min D deficiency has been defined by the [place] of [employer] and an Endocrine Society practice guideline as a level of serum 25-OH vitamin D less than 20 ng/mL (1,2). The Endocrine Society went on to further define vitamin D insufficiency as a level between 21 and 29 ng/mL (2). 1. IOM ([place] of [employer]). 2010. Dietary reference intakes for calcium and D. [place]: The National Academies Press. 2. Carlos QUINTERO, Mary [place], Elian BERRIOS, et al. Evaluation, treatment, and prevention of vitamin D deficiency: an Endocrine Society clinical practice guideline. JCEM. 2010; 96(7):1911-30. Performed By: #### C VDTBH #### [facility] [address] [address] [address] Sarah Sánchez CBC AUTO DIFFon 12-09-2021 BASO # 0.0 103/ul Normal 0.0-0.1 [facility] Comment on above: Performed By: #### C VDTBH #### [facility] [address] [address] [address] Sarah Sánchez Basophils/100 WBC (Bld) 0.6 % Normal 0.2-2.0 [facility] Comment on above: Performed By: #### C VDTBH #### [facility] [address] [address] [address] Sarah Sánchez EO # 0.4 103/ul Normal 0.0-0.7 [facility] Comment on above: Performed By: #### C VDTBH #### [facility] [address] [address] [address] Sarah Sánchez Eosinophils/100 WBC (Bld) 5.5 % Normal 0.9-7.0 [facility] Comment on above: Performed By: #### C VDTBH #### [facility] [address] [place] [address] Dr. Sarah Sánchez Erythrocyte distribution width (RBC) [Ratio] 13.2 % Normal 11.0-15.0 [facility] Comment on above: Performed By: #### C VDTBH #### [facility] [address] [place] [address] Dr. Sarah Sánchez Hematocrit (Bld) [Volume fraction] 27.5 % Critically low 42.0-54.0 [facility] Comment on above: Performed By: #### C VDTBH #### [facility] [address] [place] [address] Dr. Sarah Sánchez Hemoglobin (Bld) [Mass/Vol] 9.4 g/dL Critically low 14.0-18.0 [facility] Comment on above: Performed By: #### C VDTBH #### [facility] [address] [place] [address] Dr. Sarah Sánchez IG # 0.04 10e3/ul Critically high 0.00-0.03 [facility] Comment on above: Performed By: #### C VDTBH #### [facility] [address] [place] [address] Dr. Sarah Sánchez IG % 0.6 % Critically high 0.0-0.5 [facility] Comment on above: Performed By: #### C VDTBH #### [facility] [address] [place] [address] Dr. Sarah Sánchez LYMPH # 1.2 103/ul Normal 1.2-3.8 [facility] Comment on above: Performed By: #### C VDTBH #### [facility] [address] [address] [address] Sarah Sánchez Lymphocytes/100 WBC (Bld) 18.0 % Critically low 20.5-60.0 [facility] Comment on above: Performed By: #### C VDTBH #### [facility] [address] [address] [address] Sarah Sánchez MANUAL DIFF REQ NO Normal [facility] Comment on above: Performed By: #### C VDTBH #### [facility] [address] [place] [address] Dr. Sarah Sánchez MCH (RBC) [Entitic mass] 31.0 pg Normal 25.9-34.0 [facility] Comment on above: Performed By: #### C VDTBH #### [facility] [address] [place] [address] Dr. Sarah Sánchez MCHC (RBC) [Mass/Vol] 34.2 g/dL Normal 29.9-35.2 [facility] Comment on above: Performed By: #### C VDTBH #### [facility] [address] [place] [address] Dr. Sarah Sánchez MCV (RBC) [Entitic vol] 90.8 fL Normal 80.0-94.0 [facility] Comment on above: Performed By: #### C VDTBH #### [facility] [address] [place] [address] Dr. Sarah Sánchez MONO # 0.4 103/ul Normal 0.3-0.8 [facility] Comment on above: Performed By: #### C VDTBH #### [facility] [address] [place] [address] Dr. Sarah Sánchez Monocytes/100 WBC (Bld) 5.9 % Normal 1.7-12.0 [facility] Comment on above: Performed By: #### C VDTBH #### [facility] [address] [place] [address] Dr. Sarah Sánchez NEUT # 4.7 103/ul Normal 1.4-6.5 [facility] Comment on above: Performed By: #### C VDTBH #### [facility] [address] [address] [address] Sarah Sánchez Neutrophils/100 WBC (Bld) 69.4 % Normal 43.0-75.0 [facility] Comment on above: Performed By: #### C VDTBH #### [facility] [address] [address] [address] Sarah Sánchez Platelet mean volume (Bld) [Entitic vol] 8.9 fL Critically low 9.5-13.5 [facility] Comment on above: Performed By: #### C VDTBH #### [facility] [address] [place] [address] Dr. Sarah Sánchez PLT 191 103/ul Normal 150-450 [facility] Comment on above: Performed By: #### C VDTBH #### [facility] [address] [place] [address] Dr. Sarah Sánchez RBC 3.03 106/ul Critically low 4.70-6.10 [facility] Comment on above: Performed By: #### C VDTBH #### [facility] [address] [place] [address] Dr. Sarah Sánchez WBC 6.8 103/ul Normal 4.0-11.0 [facility] Comment on above: Performed By: #### C VDTBH #### [facility] [address] [place] [address] Dr. Sarah Sánchez FERRITINon 12-09-2021 Ferritin [Mass/Vol] 88.0 ng/mL Normal 26.0-388.0 [facility] Comment on above: Performed By: #### U DELFINO, RENAL, MG #### [facility] [address] [place] [address] Dr. Sarah Sánchez IRON AND TIBCon 12-09-2021 % SATURATION 25.0 % Normal [facility] Comment on above: Performed By: #### U DELFINO, RENAL, MG #### [facility] [address] [place] [address] Dr. Sarah Sánchez Iron [Mass/Vol] 63.0 ug/dL Critically low 65.0-175.0 [facility] Comment on above: Performed By: #### U DELFINO, RENAL, MG #### [facility] [address] [address] [address] Sarah Sánchez TIBC DIRECT 252.0 ug/dL Normal 250.0-450.0 [facility] Comment on above: Performed By: #### U DELFINO, RENAL, MG #### [facility] [address] [address] [address] Sarah Sánchez MAGNESIUMon 12-09-2021 Magnesium [Mass/Vol] 1.5 mg/dL Critically low 1.8-2.4 [facility] Comment on above: Performed By: #### P THINT #### [facility] [address] [address] [address] Sarah Sánchez RENAL FUNCTION PANELon 12-09 Albumin [Mass/Vol] 3.3 g/dL Critically low 3.4-5.0 [facility] Comment on above: Performed By: #### U DELFINO, MG, RENAL #### [facility] [address] [address] [address] Sarah Sánchez Calcium [Mass/Vol] 8.3 mg/dL Critically low 8.5-10.1 [facility] Comment on above: Performed By: #### U DELFINO, MG, RENAL #### [facility] [address] [address] [address] Sarah Sánchez Chloride [Moles/Vol] 108 mmol/L Critically high 98-107 [facility] Comment on above: Performed By: #### U DELFION, MG, RENAL #### [facility] [address] [address] [address] Sarah Sánchez CO2 [Moles/Vol] 24.0 mmol/L Normal 21.0-32.0 [facility] Comment on above: Performed By: #### U DELFINO, MG, RENAL #### [facility] [address] [address] [address] Sarah Sánchez Creatinine [Mass/Vol] 1.92 mg/dL Critically high 0.70-1.30 [facility] Comment on above: Performed By: #### U DELFINO, MG, RENAL #### [facility] [address] [place] [address] Dr. Sarah Sánchez EGFR-AF [place] 42 mL/min/1.73m2 Critically low >=60 [facility] Comment on above: Performed By: #### U DELFINO, MG, RENAL #### [facility] [address] [place] [address] Dr. Sarah Sánchez EGFR-NON AF [place] 35 mL/min/1.73m2 Critically low >=60 [facility] Comment on above: Performed By: #### U DELFINO, MG, RENAL #### [facility] [address] [place] [address] Dr. Sarah Sánchez Glucose [Mass/Vol] 130 mg/dL Critically high 74-106 [facility] Comment on above: Performed By: #### U DELIFNO, MG, RENAL #### [facility] [address] [place] [address] Dr. Sarah Sánchez Phosphate [Mass/Vol] 4.0 mg/dL Normal 2.6-4.7 [facility] Comment on above: Performed By: #### U DELFINO, MG, RENAL #### [facility] [address] [place] [address] Dr. Sarah Sánchez Potassium [Moles/Vol] 5.0 mmol/L Normal 3.5-5.1 [facility] Comment on above: Performed By: #### U DELFINO, MG, RENAL #### [facility] [address] [place] [address] Dr. Sarah Sánchez Sodium [Moles/Vol] 140 mmol/L Normal 136-145 [facility] Comment on above: Performed By: #### U DELFINO, MG, RENAL #### [facility] [address] [place] [address] Dr. Sarah Sánchez Urea nitrogen [Mass/Vol] 38.0 mg/dL Critically high 7.0-18.0 [facility] Comment on above: Performed By: #### U DELFINO, MG, RENAL #### [facility] [address] [address] [address] Sarah Sánchez UA RANDOM W/MICROSCOPICon BACTERIA NONE SEEN Normal NONE SEEN [facility] Comment on above: Performed By: #### U DELFINO, RENAL, MG #### [facility] [address] [place] [address] Dr. Sarah Sánchez Bilirubin Ql (U) Negative Normal NEGATIVE [facility] Comment on above: Performed By: #### U DELFINO, RENAL, MG #### [facility] [address] [place] [address] Dr. Sarah Sánchez CAST SEEN Abnormal NONE SEEN [facility] Comment on above: Performed By: #### U DELFINO, RENAL, MG #### [facility] [address] [place] [address] Dr. Sarah Sánchez Clarity (U) CLEAR Normal CLEAR [facility] Comment on above: Performed By: #### U DELFINO, RENAL, MG #### [facility] [address] [place] [address] Dr. Sarah Sánchez Color (U) LT. YELLOW Normal YELLOW [facility] Comment on above: Performed By: #### U DELFINO, RENAL, MG #### [facility] [address] [place] [address] Dr. Sarah Sánchez Crystals LM Nom (Urine sed) NONE SEEN Normal NONE SEEN [facility] Comment on above: Performed By: #### U DELFINO, RENAL, MG #### [facility] [address] [place] [address] Dr. Sarah Sánchez Epithelial cells LM Ql (Urine sed) RARE Normal NONE SEEN /RARE [facility] Comment on above: Performed By: #### U DELFINO, RENAL, MG #### [facility] [address] [place] [address] Dr. Sarah Sánchez Glucose Ql (U) 100 mg/dl Abnormal NEGATIVE [facility] Comment on above: Performed By: #### U DELFINO, RENAL, MG #### [facility] [address] [place] [address] Dr. Sarah Sánchez Hemoglobin Ql (U) SMALL Abnormal NEGATIVE The [facility] Comment on above: Performed By: #### U DELFINO, RENAL, MG #### [facility] [address] [address] [address] Sarah Sánchez HYALINE CAST RARE Normal [facility] Comment on above: Performed By: #### U DELFINO, RENAL, MG #### [facility] [address] [address] [address] Sarah Sánchez Ketones Ql (U) Negative Normal NEGATIVE [facility] Comment on above: Performed By: #### U DELFINO, RENAL, MG #### [facility] [address] [address] [address] Sarah Sánchez LEUKOCYTES Negative Normal NEGATIVE [facility] Comment on above: Performed By: #### U DELFINO, RENAL, MG #### [facility] [address] [address] [address] Sarah Sánchez MUCOUS TRACE Abnormal NONE SEEN [facility] Comment on above: Performed By: #### U DELFINO, RENAL, MG #### [facility] [address] [address] [address] Sarah Sánchez Nitrite Ql (U) Negative Normal NEGATIVE [facility] Comment on above: Performed By: #### U DELFINO, RENAL, MG #### [facility] [address] [address] [address] Sarah Sánchez pH (U) 5.5 [pH] Normal 5-9 [facility] Comment on above: Performed By: #### U DELFINO, RENAL, MG #### [facility] [address] [address] [address] Sarah Sánchez RBC 0-2 Normal 0-2 [facility] Comment on above: Performed By: #### U DELFINO, RENAL, MG #### [facility] [address] [address] [address] Sarah Sánchez SPEC GRAVITY 1.020 Normal 1.005-<=1.02 5 [facility] Comment on above: Performed By: #### U DELFINO, RENAL, MG #### [facility] [address] [address] [address] Sarah Sánchez UA PROTEIN 300 mg/dl Abnormal NEGATIVE/ TRACE [facility] Comment on above: Performed By: #### U DELFINO, RENAL, MG #### [facility] [address] [place] [address] Dr. Sarah Sánchez Urobilinogen Qn (U) 0.2 {Stevie'U}/dL Normal 0.2 - 1. 0 [facility] Comment on above: Performed By: #### U DELFINO, RENAL, MG #### [facility] [address] [place] [address] Dr. Sarah Sánchez WBC NONE SEEN Normal NONE SEEN [facility] Comment on above: Performed By: #### U DELFINO, RENAL, MG #### [facility] [address] [place] [address] Dr. Sarah Sánchez URIC ACID SERUMon 12-09-2021 Urate [Mass/Vol] 6.6 mg/dL Normal 3.5-7.2 [facility] Comment on above: Performed By: #### U DELFINO, MG, RENAL #### [facility] [address] [place] [address] Dr. Sarah Sánchez URINE T PROTEIN CREAT RATIOo n 12-09-2021 Protein (U) [Mass/Vol] 313.7 mg/dL Critically high <=12.0 [facility] Comment on above: Performed By: #### H BSANS #### [facility] [address] [place] [address] Dr. Sarah Sánchez UR PROT CREAT RAT 5.47 Normal The [facility] Comment on above: Performed By: #### H BSANS #### [facility] [address] [place] [address] Dr. Sarah Sánchez URINE CREAT 57.37 mg/dL Normal 20.00-300.00 [facility] Comment on above: Performed By: #### H BSANS #### [facility] [address] [place] [address] Dr. Saarh Sánchez VIT B12 AND FOLATEon 022 Cobalamin (Vitamin B12) [Mass/Vol] 1831.0 pg/mL Critically high 193.0-986.0 [facility] Comment on above: Performed By: #### U DELFINO, RENAL, MG #### [facility] [address] [place] [address] Dr. Sarah Sánchez FOLATE 20.90 ng/mL Normal 8.60-58.90 [facility] Comment on above: Performed By: #### U DELFINO, RENAL, MG #### [facility] [address] [place] [address] Dr. Sarah Sánchez GLYCOHEMOGLOBIN A1Con 2021 ADA RECOMMENDATION SEE BELOW Normal [facility] Comment on above: Result Comment: ADA RECOMMENDED LIMIT 4.0 - 6.0 ADA THERAPEUTIC TARGET < 7.0 ACTION SUGGESTED > 7.0 Performed By: #### U DELFINO, RENAL, MG #### [facility] [address] [place] [address] Dr. Sarah Sánchez Glucose [Mass/Vol] 137 mg/dL Normal [facility] Comment on above: Performed By: #### U DELFINO, RENAL, MG #### [facility] [address] [place] [address] Dr. Sarah Sánchez HbA1c (Bld) [Mass fraction] 6.4 % Critically high 4.5-6.2 [facility] Comment on above: Performed By: #### U DELFINO, RENAL, MG #### [facility] [address] [place] [address] Dr. Sarah Sánchez PTH INTACTon 09-16-2021 PTH, Intact 57 pg/mL Normal 15-65 [facility] Comment on above: Performed By: #### U RTPCR #### [facility] [address] [place] [address] Dr. Sarah Sánchez HEMOGRAM AND PLATELon 2021 Hematocrit (Bld) [Volume fraction] 27.7 % Critically low 42.0-54.0 [facility] Comment on above: Performed By: #### H BSANS #### [facility] [address] [place] [address] Dr. Sarah Sánchez Hemoglobin (Bld) [Mass/Vol] 9.5 g/dL Critically low 14.0-18.0 [facility] Comment on above: Performed By: #### H BSANS #### [facility] [address] [place], [place] [id number] Dr. Sarah Sánchez MCH (RBC) [Entitic mass] 31.1 pg Normal 25.9-34.0 [facility] Comment on above: Performed By: #### H BSANS #### [facility] [address] [place] [address] Dr. Sarah Sánchez MCHC (RBC) [Mass/Vol] 34.3 g/dL Normal 29.9-35.2 [facility] Comment on above: Performed By: #### H BSANS #### [facility] [address] [place] [address] Dr. Sarah Sánchez MCV (RBC) [Entitic vol] 90.8 fL Normal 80.0-94.0 [facility] Comment on above: Performed By: #### H BSANS #### [facility] [address] [place] [address] Dr. Sarah Sánchez PLT 217 103/ul Normal 150-450 [facility] Comment on above: Performed By: #### H BSANS #### [facility] [address] [place] [address] Dr. Sarah Sánchez RBC 3.05 106/ul Critically low 4.70-6.10 [facility] Comment on above: Performed By: #### H BSANS #### [facility] [address] [place] [address] Dr. Sarah Sánchez WBC 6.9 103/ul Normal 4.0-11.0 [facility] Comment on above: Performed By: #### H BSANS #### [facility] [address] [place] [address] Dr. Sarah Sánchez MAGNESIUMon 09-15-2021 Magnesium [Mass/Vol] 1.6 mg/dL Critically low 1.8-2.4 [facility] Comment on above: Performed By: #### U DELFINO, RENAL, MG #### [facility] [address] [place] [address] Dr. Sarah Sánchez RENAL FUNCTION PANELon 09-15 Albumin [Mass/Vol] 3.3 g/dL Critically low 3.4-5.0 [facility] Comment on above: Performed By: #### U DELFINO, RENAL, MG #### [facility] [address] [place] [address] Dr. Sarah Sánchez Calcium [Mass/Vol] 8.3 mg/dL Critically low 8.5-10.1 [facility] Comment on above: Performed By: #### U DELFINO, RENAL, MG #### [facility] [address] [place] [address] Dr. Sarah Sánchez Chloride [Moles/Vol] 107 mmol/L Normal 98-107 [facility] Comment on above: Performed By: #### U DELFINO, RENAL, MG #### [facility] [address] [place] [address] Dr. Sarah Sánchez CO2 [Moles/Vol] 23.8 mmol/L Normal 21.0-32.0 [facility] Comment on above: Performed By: #### U DELFINO, RENAL, MG #### [facility] [address] [place] [address] Dr. Sarah Sánchez Creatinine [Mass/Vol] 1.87 mg/dL Critically high 0.70-1.30 [facility] Comment on above: Performed By: #### U DELFINO, RENAL, MG #### [facility] [address] [place] [address] Dr. Sarah Sánchez EGFR-AF [place] 43 mL/min/1.73m2 Critically low >=60 [facility] Comment on above: Performed By: #### U DELFINO, RENAL, MG #### [facility] [address] [place] [address] Dr. Sarah Sánchez EGFR-NON AF [place] 36 mL/min/1.73m2 Critically low >=60 [facility] Comment on above: Performed By: #### U DELFINO, RENAL, MG #### [facility] [address] [place] [address] Dr. Sarah Sánchez Glucose [Mass/Vol] 120 mg/dL Critically high 74-106 [facility] Comment on above: Performed By: #### U DELFINO, RENAL, MG #### [facility] [address] [place] [address] Dr. Sarah Sánchez Phosphate [Mass/Vol] 3.8 mg/dL Normal 2.6-4.7 [facility] Comment on above: Performed By: #### U DELFINO, RENAL, MG #### [facility] [address] [address] [address] Sarah Sánchez Potassium [Moles/Vol] 4.5 mmol/L Normal 3.5-5.1 [facility] Comment on above: Performed By: #### U DELFINO, RENAL, MG #### [facility] [address] [place] [address] Dr. Sarah Sánchez Sodium [Moles/Vol] 140 mmol/L Normal 136-145 [facility] Comment on above: Performed By: #### U DELFINO, RENAL, MG #### [facility] [address] [place] [address] Dr. Sarah Sánchez Urea nitrogen [Mass/Vol] 34.0 mg/dL Critically high 7.0-18.0 [facility] Comment on above: Performed By: #### U DELFINO, RENAL, MG #### [facility] [address] [place] [address] Dr. Sarah Sánchez UA RANDOM W/MICROSCOPICon BACTERIA NONE SEEN Normal NONE SEEN [facility] Comment on above: Performed By: #### C VDTBH #### [facility] [address] [place] [address] Dr. Sarah Sánchez Bilirubin Ql (U) Negative Normal NEGATIVE [facility] Comment on above: Performed By: #### C VDTBH #### [facility] [address] [place] [address] Dr. Sarah Sánchez CAST SEEN Abnormal NONE SEEN [facility] Comment on above: Performed By: #### C VDTBH #### [facility] [address] [place] [address] Dr. Sarah Sánchez Clarity (U) CLEAR Normal CLEAR [facility] Comment on above: Performed By: #### C VDTBH #### [facility] [address] [place] [address] Dr. Sarah Sánchez COARSE GRANULAR CAST RARE Normal [facility] Comment on above: Performed By: #### C VDTBH #### [facility] [address] [place] [address] Dr. Sarah Sánchez Color (U) LT. YELLOW Normal YELLOW [facility] Comment on above: Performed By: #### C VDTBH #### [facility] [address] [place] [address] Dr. Sarah Sánchez Crystals LM Nom (Urine sed) NONE SEEN Normal NONE SEEN [facility] Comment on above: Performed By: #### C VDTBH #### [facility] [address] [place] [address] Dr. Sarah Sánchez Epithelial cells LM Ql (Urine sed) FEW Abnormal NONE SEEN /RARE [facility] Comment on above: Performed By: #### C VDTBH #### [facility] [address] [place] [address] Dr. Sarah Sánchez Glucose Ql (U) Negative Normal NEGATIVE [facility] Comment on above: Performed By: #### C VDTBH #### [facility] [address] [place] [address] Dr. Sarah Sánchez Hemoglobin Ql (U) MODERATE Abnormal NEGATIVE [facility] Comment on above: Performed By: #### C VDTBH #### [facility] [address] [place] [address] Dr. Sarah Sánchez Ketones Ql (U) Negative Normal NEGATIVE [facility] Comment on above: Performed By: #### C VDTBH #### [facility] [address] [place] [address] Dr. Sarah Sánchez LEUKOCYTES Negative Normal NEGATIVE [facility] Comment on above: Performed By: #### C VDTBH #### [facility] [address] [place] [address] Dr. Sarah Sánchez MUCOUS NONE SEEN Normal NONE SEEN [facility] Comment on above: Performed By: #### C VDTBH #### [facility] [address] [place] [address] Dr. Sarah Sánchez Nitrite Ql (U) Negative Normal NEGATIVE [facility] Comment on above: Performed By: #### C VDTBH #### [facility] [address] [place] [address] Dr. Sarah Sánchez pH (U) 5.5 [pH] Normal 5-9 [facility] Comment on above: Performed By: #### C VDTBH #### [facility] [address] [place] [address] Dr. Sarah Sánchez RBC 0-2 Normal 0-2 [facility] Comment on above: Performed By: #### C VDTBH #### [facility] [address] [place] [address] Dr. Sarah Sánchez SPEC GRAVITY 1.025 Normal 1.005-<=1.02 5 [facility] Comment on above: Performed By: #### C VDTBH #### [facility] [address] [place] [address] Dr. Sarah Sánchez UA PROTEIN >300 Abnormal NEGATIVE/ TRACE [facility] Comment on above: Performed By: #### C VDTBH #### [facility] [address] [place] [address] Dr. Sarah Sánchez Urobilinogen Qn (U) 0.2 {Stevie'U}/dL Normal 0.2 - 1. 0 [facility] Comment on above: Performed By: #### C VDTBH #### [facility] [address] [place] [address] Dr. Sarah Sánchez WBC NONE SEEN Normal NONE SEEN [facility] Comment on above: Performed By: #### C VDTBH #### [facility] [address] [place] [address] Dr. Sarah Sánchez URIC ACID SERUMon 09-15-2021 Urate [Mass/Vol] 6.9 mg/dL Normal 3.5-7.2 [facility] Comment on above: Performed By: #### U DELFINO, RENAL, MG #### [facility] [address] [place] [address] Dr. Sarah Sánchez URINE T PROTEIN CREAT RATIOo n 09-15-2021 Protein (U) [Mass/Vol] 440.3 mg/dL Critically high <=12.0 [facility] Comment on above: Performed By: #### U RTPCR #### [facility] [address] [address] [address] Sarah Sánchez UR PROT CREAT RAT 6.63 Normal [facility] Comment on above: Performed By: #### U RTPCR #### [facility] [address] [address] [address] Sarah Sánchez URINE CREAT 66.40 mg/dL Normal 20.00-300.00 [facility] Comment on above: Performed By: #### U RTPCR #### [facility] [address] [address] [address] Sarah Sánchez VITAMIN D 25 OHon 09-15-2021 VIT D 25-OH 18.8 ng/mL Normal [facility] Comment on above: Performed By: #### U DELFINO, RENAL, MG #### [facility] [address] [place] [address] Dr. Sarah Sánchez VIT D RANGES SEE BELOW Normal [facility] Comment on above: Result Comment: <20 ng/mL Vit D deficient 20 - <30 ng/mL Vit D insufficient 30 - 100 ng/mL Vit D sufficient >100 ng/mL Potential Toxicity Performed By: #### U DELFINO, RENAL, MG #### [facility] [address] [place] [address] Dr. Sarah Sánchez US KIDNEYSon 09-01-2021 US [...] MEMO [place] Date: 2021-09-01 10:18 Normal [facility] Urinalysis With MicroscopicO rdered By: Ralph Mccurdy on 04-23-2019 - [employer] Work Phone: Amorphous, UA NOT REPORTED None [facility] [facility] Work Phone: Bacteria, UA NOT REPORTED None [employer] Work Phone: Bilirubin Urine Negative NEGATIVE [facility] Work Phone: Casts UA NOT REPORTED /LPF [employer] Work Phone: Color, UA YELLOW YELLOW [employer] Work Phone: Crystals UA URIC ACID Abnormal None /HPF [employer] Work Phone: Crystals UA 2 TO 5 Abnormal None /HPF [employer] Work Phone: Epithelial Cells UA None [employer] Work Phone: Glucose, Ur Negative NEGATIVE [employer] Work Phone: Interpretation and review of laboratory results Abnormal [employer] Work Phone: Ketones Ql (U) Negative NEGATIVE [employer] Work Phone: Leukocyte esterase Test strip Ql (U) Negative NEGATIVE [employer] Work Phone: Mucus, UA NOT REPORTED None [employer] Work Phone: Nitrite, Urine Negative NEGATIVE [employer] Work Phone: Other Observations UA NOT REPORTED NOT REQ. M [facility] Work Phone: pH, UA 6.0 [facility] Work Phone: Protein, UA 4+ Abnormal NEGATIVE [employer] Work Phone: RBC, UA 0 TO 2 [employer] Work Phone: Renal Epithelial, Urine NOT REPORTED 0 /HPF [employer] Work Phone: Specific [place], UA 1.020 [employer] Work Phone: Trichomonas, UA NOT REPORTED None [employer] Work Phone: Turbidity UA CLEAR CLEAR [employer] Work Phone: Urinalysis Comments NOT REPORTED [employer] Work Phone: Urine Hgb 1+ Abnormal NEGATIVE [employer] Phone: Urobilinogen, Urine Normal Normal [employer] Phone: WBC, UA None [employer] Work Phone: Yeast, UA NOT REPORTED None [employer] Phone: Cardiovascular Lab Reporton 09-12-2018 Cardiovascular Lab Report [facility] Patient Name: Miguelito [facility] MR #: [id number] Physician: Vadim Moreno Department of [facility] Medicine Service Date: 09/12/2018 Division of Birthdate: 1950 Cardiology Room #: [facility] Cardiovascular Services [address] [address] Cardiovascular Laboratory Report INDICATIONS: The patient is a 68-year-old man, known to have coronary artery disease, status post stenting of the ramus vessel in January 2018 in the setting of [id number] myocardial infarction. At that time, he had [...] signed informed consent. He was brought to dental laboratory assistant in a fasting state. The left neck area was prepped and draped in usual fashion. Note that we went for the left internal jugular vein access, as he had multiple procedures in the right carotid in the past and due to the patient's preference. The left internal jugular vein was accessed using micropuncture technique under ultrasound guidance and a 6-[place] x 11 cm sheath was placed. A 6-[place] Olivia catheter was used for right heart catheterization with measurement of pressures and calculation of cardiac output using the estimated Rose Marie method. Olivia catheter was removed. Steve test was favorable on the right. Access in the right radial artery was obtained using micropuncture technique and ultrasound guidance. A 6-[place] x 11 cm Hydrophilic sheath was advanced. Verapamil was given through the sheath and heparin was administered intravenously. Bilateral selective coronary angiography was then performed using 6-[place] JR5 and JL3.5 diagnostic catheters. Catheters were [...] narrowing right after the takeoff of a pakgy-cb-lmsnrdau size first diagonal branch, that diagonal branch [...] the ostial to proximal segment of a yqfbw-zy-toatcvmn size diagonal branch. 2. The angiographic appearance [...] by: Vadim Veronica M.D. 09/27/2018 10:27 A Vaidm Veronica M.D. Date Dict: 09/12/2018/09:38 Larisa/Vadim Veronica M.D. Date Trans: 09/12/2018 10:28 Larisa/harvey [id number] cc: Ruben Luo M.D. [address] [place] [id number] Normal [facility] BASIC METABOLIC PANELon 10-1 Calcium [Mass/Vol] 8.4 mg/dL Low 8.6-10.3 The [facility] Comment on above: Order Comment: No: D o not add to previous draw Performed By: #### 0 0071, [id number], [id number] #### [facility] [address] [place] [address], [facility] Chloride [Moles/Vol] 106 mmol/L Normal 98-107 [facility] Comment on above: Order Comment: No: D o not add to previous draw Performed By: #### 0 0071, [id number], [id number] #### [facility] [address] [place] [address], [place] CO2 [Moles/Vol] 26 mmol/L Normal 21-31 [facility] Comment on above: Order Comment: No: D o not add to previous draw Performed By: #### 0 0071, [id number], [id number] #### [facility] [address] [place] [address], [place] Creatinine [Mass/Vol] 1.25 mg/dL Normal 0.70-1.30 [facility] Comment on above: Order Comment: No: D o not add to previous draw Performed By: #### 0 0071, , [id number] #### [facility] [address] [place] [address], [place] GFR/1.73 sq M predicted among blacks MDRD (S/P/Bld) [Vol rate/Area] mL/min/{1.73_m2} Normal >60 [facility] Comment on above: Order Comment: No: D o not add to previous draw Performed By: #### 0 0071, , [id number] #### [facility] [address] [place] [address], [place] GFR/1.73 sq M predicted among non-blacks MDRD (S/P/Bld) [Vol rate/Area] 57 ml/min/1.73sq m Abnormal >60 The [facility] Comment on above: Order Comment: No: D o not add to previous draw Performed By: #### 0 0071, [id number], [id number] #### [facility] [address] [place] [address], [place] Glucose [Mass/Vol] 183 mg/dL High 70-100 [facility] Comment on above: Order Comment: No: D o not add to previous draw Performed By: #### 0 0071, [id number], [id number] #### [facility] [address] [place] [address], [facility] Potassium [Moles/Vol] 5.4 mmol/L High 3.5-5.1 [facility] Comment on above: Order Comment: No: D o not add to previous draw Performed By: #### 0 0071, [id number], [id number] #### [facility] [address] [place] [address], [facility] Sodium [Moles/Vol] 135 mmol/L Low 136-145 The [facility] Comment on above: Order Comment: No: D o not add to previous draw Performed By: #### 0 0071, [id number], [id number] #### [facility] [address] [place] [address], [facility] Urea nitrogen [Mass/Vol] 26 mg/dL High 7-25 The [facility] Comment on above: Order Comment: No: D o not add to previous draw Performed By: #### 0 0071, 74060, [id number] #### [facility] [address] CBC COMPLETE BLOOD COUNTon Erythrocyte distribution width (RBC) [Ratio] 13.2 % Normal 11.5-15.0 [facility] Comment on above: Order Comment: No: D o not add to previous draw Performed By: #### 5 0608 #### [facility] [address] [place] [address], [facility] Hematocrit (Bld) [Volume fraction] 31.0 % Low 39.0-50.0 The [facility] Comment on above: Order Comment: No: D o not add to previous draw Performed By: #### 5 0608 #### [facility] [address] [place] [address], [facility] Hemoglobin (Bld) [Mass/Vol] 10.6 g/dL Low 13.0-17.0 [facility] Comment on above: Order Comment: No: D o not add to previous draw Performed By: #### 5 0608 #### [facility] [address] [place] [address], [facility] MCH (RBC) [Entitic mass] 30.5 pg Normal 27.0-33.0 [facility] Comment on above: Order Comment: No: D o not add to previous draw Performed By: #### 5 0608 #### [facility] [address] [place] [id number], [facility] MCHC (RBC) [Mass/Vol] 34.2 g/dL Normal 32.0-35.0 [facility] Comment on above: Order Comment: No: D o not add to previous draw Performed By: #### 5 0608 #### [facility] [address] [place] [address], [facility] MCV (RBC) [Entitic vol] 89.3 fL Normal 82.0-98.0 [facility] Comment on above: Order Comment: No: D o not add to previous draw Performed By: #### 5 0608 #### [facility] [address] [place] [address], [facility] Nucleated RBC/100 WBC (Bld) [Ratio] 0 % Normal 0-0 [facility] Comment on above: Order Comment: No: D o not add to previous draw Performed By: #### 5 0608 #### [facility] [address] [place] [address], [facility] PLAT CNT 174 10*3/uL Normal 150-400 The [facility] Comment on above: Order Comment: No: D o not add to previous draw Performed By: #### 5 0608 #### [facility] [address] [facility] [place] [address], [facility] RBC (Bld) [#/Vol] 3.47 10*6/uL Low 4.20-5.70 The [facility] Comment on above: Order Comment: No: D o not add to previous draw Performed By: #### 5 0608 #### [facility] [address] [facility]. [address] WBC (Bld) [#/Vol] 8.57 10*3/uL Normal 4.00-10.60 The [facility] Comment on above: Order Comment: No: D o not add to previous draw Performed By: #### 5 0608 #### [facility] [address] [facility]. [address] Cardiovascular Lab Reporton 01-18-2018 Cardiovascular Lab Report [facility] Patient Name: Omer Santos [facility] MR #: [id number] Physician: Vadim Malagon of [facility] Medicine Service Date: 01/17/2018 Division of Birthdate: 1950 Cardiology Room #: 3CD [id number] Adult Cardiovascular Services [facility] [address] [facility]. [place] [address] Cardiovascular Laboratory Report INDICATION: Omer Santos is a 67-year-old man, who was admitted with [id number] elevation myocardial infarction. He was referred for [...] signed informed consent. He was brought to dental laboratory assistant in a fasting state. The left wrist area was prepped and draped in usual fashion. Steve's test was favorable. Access was obtained in the left radial artery. Using micropuncture technique, a 6-[place] x 11 cm Hydrophilic sheath was advanced. Verapamil was given through the sheath and heparin was administered intravenously. Bilateral selective coronary angiography was then performed using 6-[place] JL3.5 and JR4 diagnostic catheters. Catheters were removed. A 6-[place] XB 3.0 guiding catheter was advanced and used to engage in the left main coronary ostium. Therapeutic ACT was confirmed during the procedure and additional heparin given as needed. A [place] wire was advanced into the distal ramus vessel. Balloon angioplasty in the proximal ramus was performed using Emerge 2.5 x 12 mm balloon inflated at 12 atmospheres. Angiography revealed suboptimal results. This was treated using a Synergy 2.75 x 16 mm drug-eluting stent deployed at 11 atmospheres and post dilated using NC Quantum [place] 2.75 x 12 mm noncompliant balloon inflated [...] for minimum of 1 year after acute bjz-[id number] elevation myocardial infarction and drug-eluting stenting. 3. [...] Veronica M.D. Date Trans: 01/17/2018 10:32 P/harvey [id number] cc: Ruben Luo M.D. [address] [place] [id number] Otilia Sanchez M.D. R Physican...do Not Send [address] [facility] [address] Normal The [facility] MAGNESIUM BLOODon 01-18-2018 Magnesium [Mass/Vol] 1.9 mg/dL Normal 1.9-2.7 [facility] Comment on above: Performed By: #### 0 0071, 56286, 29005 #### [facility] [address] TROPONIN-Ion 01-18-2018 Troponin I.cardiac [Mass/Vol] 0.84 ng/mL Critically high 0.00-0.04 [facility] Comment on above: Result Comment: M-CR ITICAL RESULT(S) REVIEWED, CALLED TO AND READ BACK BY AMARA PATTERSON RN AT 5239. REFERENCE RANGES: 0.00 - 0.04 ng/ml NORMAL 0.05 - 0.50 ng/ml INDETERMINATE > 0.50 ng/ml CONSISTENT WITH AN M.I. Performed By: #### 0 0071, 60538, 07289 #### [facility] [address] [facility] [place] [address], [place] BASIC METABOLIC PANELon 10- Calcium [Mass/Vol] 8.8 mg/dL Normal 8.6-10.3 [facility] Comment on above: Order Comment: No: D o not add to previous draw Performed By: #### 3 5199, 59967 #### [facility] [address] [place] [address], [place] Chloride [Moles/Vol] 103 mmol/L Normal 98-107 [facility] Comment on above: Order Comment: No: D o not add to previous draw Performed By: #### 3 5199, 35471 #### [facility] [address] [place] [address], [place] CO2 [Moles/Vol] 25 mmol/L Normal 21-31 [facility] Comment on above: Order Comment: No: D o not add to previous draw Performed By: #### 3 5199, 00998 #### [facility] [address] [place] [address], [place] Creatinine [Mass/Vol] 1.36 mg/dL High 0.70-1.30 [facility] Comment on above: Order Comment: No: D o not add to previous draw Performed By: #### 3 5199, 02801 #### [facility] [address] [place] [address], [place] GFR/1.73 sq M predicted among blacks MDRD (S/P/Bld) [Vol rate/Area] mL/min/{1.73_m2} Normal >60 [facility] Comment on above: Order Comment: No: D o not add to previous draw Performed By: #### 3 5199, 52281 #### [facility] [address] [place] [address], [place] GFR/1.73 sq M predicted among non-blacks MDRD (S/P/Bld) [Vol rate/Area] 52 ml/min/1.73sq m Abnormal >60 The [facility] Comment on above: Order Comment: No: D o not add to previous draw Performed By: #### 3 5199, 13972 #### [facility] [address] [place] [address], [facility] Glucose [Mass/Vol] 265 mg/dL High 70-100 The [facility] Comment on above: Order Comment: No: D o not add to previous draw Performed By: #### 3 5199, 41793 #### [facility] [address] [place] [address], [facility] Potassium [Moles/Vol] 4.7 mmol/L Normal 3.5-5.1 [facility] Comment on above: Order Comment: No: D o not add to previous draw Performed By: #### 3 5199, 29071 #### [facility] [address] [facility] [place] [address], [facility] Sodium [Moles/Vol] 136 mmol/L Normal 136-145 The [facility] Comment on above: Order Comment: No: D o not add to previous draw Performed By: #### 3 5199, 01297 #### [facility] [address] [facility] [place] [address], [facility] Urea nitrogen [Mass/Vol] 25 mg/dL Normal 7-25 [facility] Comment on above: Order Comment: No: D o not add to previous draw Performed By: #### 3 5199, 37291 #### [facility] [address] [facility] [place] [address], [facility] CBC W/DIFFon 01-17-2018 ABS BASOPHILS 0.1 10*3/uL Normal 0.0-0.2 The [facility] Comment on above: Performed By: #### 5 0103 #### [facility] [address] [place] [address], [facility] ABS IMM GRANS 0.1 10*3/uL Normal 0.0-0.2 The [facility] Comment on above: Performed By: #### 5 0103 #### [facility] [address] [place] [address], [facility] ABS NEUTROPHILS 4.1 10*3/uL Normal 1.6-7.6 [facility] Comment on above: Performed By: #### 5 0103 #### [facility] [address] [place] [address], [facility] Basophils/100 WBC (Bld) 0.7 % Normal 0.0-1.0 [facility] Comment on above: Performed By: #### 5 0103 #### [facility] [address] [place] [address], [facility] Eosinophils (Bld) [#/Vol] 0.5 10*3/uL Normal 0.0-0.5 [facility] Comment on above: Performed By: #### 5 0103 #### [facility] [address] [place] [address], [facility] Eosinophils/100 WBC (Bld) 6.6 % High 0.0-6.0 [facility] Comment on above: Performed By: #### 5 0103 #### [facility] [address] [place] [address], [facility] Erythrocyte distribution width (RBC) [Ratio] 13.1 % Normal 11.5-15.0 [facility] Comment on above: Performed By: #### 5 0103 #### [facility] [address] [place] [address], [facility] Hematocrit (Bld) [Volume fraction] 30.5 % Low 39.0-50.0 [facility] Comment on above: Performed By: #### 5 3 #### [facility] [address] [place] [address], [facility] Hemoglobin (Bld) [Mass/Vol] 10.8 g/dL Low 13.0-17.0 [facility] Comment on above: Performed By: #### 5 0103 #### [facility] [address] [facility] [place] [address], [facility] IMMATURE GRANS 1.8 % High 0.0-1.0 The [facility] Comment on above: Performed By: #### 5 0103 #### [facility] [address] [facility] [place] [address], [facility] Lymphocytes (Bld) [#/Vol] 2.1 10*3/uL Normal 1.2-4.0 [facility] Comment on above: Performed By: #### 5 0103 #### [facility] [address] [place] [address], [facility] Lymphocytes/100 WBC (Bld) 28.1 % Normal 20.0-45.0 [facility] Comment on above: Performed By: #### 5 0103 #### [facility] [address] [facility] [place] [address], [facility] MCH (RBC) [Entitic mass] 31.3 pg Normal 27.0-33.0 [facility] Comment on above: Performed By: #### 5 0103 #### [facility] [address] [facility] [place] [address], [facility] MCHC (RBC) [Mass/Vol] 35.4 g/dL High 32.0-35.0 [facility] Comment on above: Performed By: #### 5 0103 #### [facility] [address] [place] [address], [facility] MCV (RBC) [Entitic vol] 88.4 fL Normal 82.0-98.0 [facility] Comment on above: Performed By: #### 5 0103 #### [facility] [address] [place] [address], [facility] Monocytes (Bld) [#/Vol] 0.5 10*3/uL Normal 0.1-1.0 [facility] Comment on above: Performed By: #### 5 0103 #### [facility] [address] [place] [address], [facility] MONOS 6.3 % Normal 5.0-12.0 [facility] Comment on above: Performed By: #### 5 0103 #### [facility] [address] [place] [address], [facility] Neutrophils/100 WBC (Bld) 56.5 % Normal 40.0-72.0 [facility] Comment on above: Performed By: #### 5 0103 #### [facility] [address] [place] [id number], [facility] Nucleated RBC/100 WBC (Bld) [Ratio] 0 % Normal 0-0 [facility] Comment on above: Performed By: #### 5 0103 #### [facility] [address] [place] [address], [facility] PLAT CNT 175 10*3/uL Normal 150-400 The [facility] Comment on above: Performed By: #### 5 0103 #### [facility] [address] [place] [place] [address], [facility] RBC (Bld) [#/Vol] 3.45 10*6/uL Low 4.20-5.70 The [facility] Comment on above: Performed By: #### 5 0103 #### [facility] [address] [facility] [place] [id number], [facility] WBC (Bld) [#/Vol] 7.30 10*3/uL Normal 4.00-10.60 The [facility] Comment on above: Performed By: #### 5 3 #### [facility] [address] [facility] [place] [address], [facility] History and Physicalon 01-17 History and Physical MR#: [id number] [facility] Pt. Name: Omer Santos Admitted: 01/17/2018 Date of : 1950 Attending Physician: Andre Vizcaino MD Room #: 3CD [id number] Discharge Date: HISTORY AND PHYSICAL CHIEF COMPLAINT: Chest pain. HISTORY OF PRESENT ILLNESS: The patient is a 67-year-old male, who presented initially to [facility] complaining of chest pain. He states [...] time. His initial workup was negative at [place], did a repeat troponin, which was elevated. He was started on a heparin drip and transferred here to [facility] for high-level care to be seen by Cardiology for possible NSTEMI. Presently he states he is chest pain free. He received some morphine in [place], to which he attributes his current pain-free [...] alert and oriented x3. LABORATORY STUDIES: From [facility] dated January 16, 2018. BNP 311. [...] Vizcaino MD Date Trans: 01/17/2018 07:04 Larisa/harvey [id number] Normal The [facility] TROPONIN-Ion 01-17-2018 Troponin I.cardiac [Mass/Vol] 0.22 ng/mL High 0.00-0.04 [facility] Comment on above: Order Comment: No: D o not add to previous draw Result Comment: REFE RENCE RANGES: 0.00 - 0.04 ng/ml NORMAL 0.05 - 0.50 ng/ml INDETERMINATE > 0.50 ng/ml CONSISTENT WITH AN M.I. Performed By: #### 3 0250, [id number] #### [facility] [address] UFH HEPARIN ASSAYon 01-18-20 18 UNFRACTIONATED HEPARIN <0.10 Critically low 0.30-0.70 [facility] Comment on above: Result Comment: Clarissa roxaban and Apixaban will interfere with the anti Xa assay used to monitor UFH and LMWH. RESULTS CHECKED AND CALLED. ACCURATELY READ BACK BY AMARA PATTERSON RN @ 8107 Performed By: #### 3 2172 #### [facility] [address] Vital Signs Date Time Vital Sign Value Performing Clinician Facility 05-19-2024 14:48-0500 Body height 170.18 cm Ruben Luo MD Work Phone: [facility] 05-19-2024 14:48-0500 Body mass index (BMI) [Ratio] 29.2 kg/m2 Ruben Luo MD Work Phone: [facility] 05-19-2024 14:48-0500 Body temperature 97.3 [degF] Ruben Luo MD Work Phone: [facility] 05-19-2024 14:48-0500 Body weight 84.53 kg Ruben Luo MD Work Phone: [facility] 05-19-2024 14:48-0500 Diastolic blood pressure 57 mm[Hg] Ruben Luo MD Work Phone: [facility] 05-19-2024 14:48-0500 Heart rate 58 /min Ruben Luo MD Work Phone: [facility] 05-19-2024 14:48-0500 Respiratory rate 18 /min Ruben Luo MD Work Phone: [facility] 05-19-2024 14:48-0500 SaO2% (BldA) [Mass fraction] 96 % Ruben Luo MD Work Phone: [facility] 05-19-2024 14:48-0500 Systolic blood pressure 147 mm[Hg] Ruben uLo MD Work Phone: [facility] 05-04-2024 14:49-0500 Body height 170.18 cm Ruebn Luo MD Work Phone: [facility] 05-04-2024 14:49-0500 Body mass index (BMI) [Ratio] 28.3 kg/m2 Ruben Luo MD Work Phone: [facility] 05-04-2024 14:49-0500 Body weight 82.21 kg Ruben Luo MD Work Phone: [facility] 05-04-2024 14:49-0500 Diastolic blood pressure 52 mm[Hg] Ruben Luo MD Work Phone: [facility] 05-04-2024 14:49-0500 Heart rate 59 /min Ruben Luo MD Work Phone: [facility] 05-04-2024 14:49-0500 Respiratory rate 16 /min Ruben Luo MD Work Phone: [facility] 05-04-2024 14:49-0500 SaO2% (BldA) [Mass fraction] 98 % Ruben Luo MD Work Phone: [facility] 05-04-2024 14:49-0500 Systolic blood pressure 120 mm[Hg] Ruben Luo MD Work Phone: [facility] 04-23-2024 10:09-0500 Body height 170.18 cm Ruben Luo MD Work Phone: [facility] 04-23-2024 10:09-0500 Body mass index (BMI) [Ratio] 29 kg/m2 Ruben Luo MD Work Phone: [facility] 04-23-2024 10:09-0500 Body temperature 98 [degF] Ruben Luo MD Work Phone: [facility] 04-23-2024 10:09-0500 Body weight 84.05 kg Ruben Luo MD Work Phone: [facility] 04-23-2024 10:09-0500 Diastolic blood pressure 55 mm[Hg] Ruben Luo MD Work Phone: [facility] 04-23-2024 10:09-0500 Heart rate 57 /min Ruben Luo MD Work Phone: [facility] 04-23-2024 10:09-0500 Respiratory rate 16 /min Ruben Luo MD Work Phone: [facility] 04-23-2024 10:09-0500 SaO2% (BldA) [Mass fraction] 98 % Ruben Luo MD Work Phone: [facility] 04-23-2024 10:09-0500 Systolic blood pressure 142 mm[Hg] Ruben Luo MD Work Phone: [facility] 03-25-2024 11:20-0500 Body height 170.18 cm Ruben Luo MD Work Phone: [facility] 03-25-2024 11:20-0500 Body mass index (BMI) [Ratio] 27.1 kg/m2 Ruben Luo MD Work Phone: [facility] 03-25-2024 11:20-0500 Body temperature 98 [degF] Ruben Luo MD Work Phone: [facility] 03-25-2024 11:20-0500 Body weight 78.47 kg Ruben Luo MD Work Phone: [facility] 03-25-2024 11:20-0500 Diastolic blood pressure 46 mm[Hg] Ruben Luo MD Work Phone: [facility] 03-25-2024 11:20-0500 Heart rate 55 /min Ruben Luo MD Work Phone: [facility] 03-25-2024 11:20-0500 SaO2% (BldA) [Mass fraction] 96 % Ruben Luo MD Work Phone: [facility] 03-25-2024 11:20-0500 Systolic blood pressure 160 mm[Hg] Ruben Luo MD Work Phone: [facility] 03-23-2024 13:48-0500 Body height 167.64 cm Ruben Luo MD Work Phone: [facility] 03-23-2024 13:48-0500 Body mass index (BMI) [Ratio] 28.4 kg/m2 Ruben Luo MD Work Phone: [facility] 03-23-2024 13:48-0500 Body temperature 96.9 [degF] Ruben Luo MD Work Phone: [facility] 03-23-2024 13:48-0500 Body weight 80 kg Ruben Luo MD Work Phone: [facility] 03-23-2024 13:48-0500 Diastolic blood pressure 62 mm[Hg] Ruben Luo MD Work Phone: [facility] 03-23-2024 13:48-0500 Heart rate 56 /min Ruben Luo MD Work Phone: [facility] 03-23-2024 13:48-0500 Respiratory rate 16 /min Ruben Luo MD Work Phone: [facility] 03-23-2024 13:48-0500 SaO2% (BldA) [Mass fraction] 98 % Ruben Luo MD Work Phone: [facility] 03-23-2024 13:48-0500 Systolic blood pressure 157 mm[Hg] Ruben Luo MD Work Phone: [facility] 03-18-2024 15:16-0500 Body height 167.64 cm Ruben Luo MD Work Phone: [facility] 03-18-2024 15:16-0500 Body mass index (BMI) [Ratio] 28.7 kg/m2 Ruben Luo MD Work Phone: [facility] 03-18-2024 15:16-0500 Body temperature 97.2 [degF] Ruben Luo MD Work Phone: [facility] 03-18-2024 15:16-0500 Body weight 80.73 kg Ruben Luo MD Work Phone: [facility] 03-18-2024 15:16-0500 Diastolic blood pressure 69 mm[Hg] Ruben Luo MD Work Phone: [facility] 03-18-2024 15:16-0500 Heart rate 57 /min Ruben Luo MD Work Phone: [facility] 03-18-2024 15:16-0500 Respiratory rate 16 /min Ruben Luo MD Work Phone: [facility] 03-18-2024 15:16-0500 SaO2% (BldA) [Mass fraction] 97 % Ruben Luo MD Work Phone: [facility] 03-18-2024 15:16-0500 Systolic blood pressure 164 mm[Hg] Ruben Luo MD Work Phone: [facility] 02-25-2024 15:36-0500 Body mass index (BMI) [Ratio] 28.4 kg/m2 Ruben Luo MD Work Phone: [facility] 02-25-2024 15:36-0500 Body weight 80 kg Ruben Luo MD Work Phone: [facility] 02-25-2024 12:23-0500 Body height 167.64 cm [facility] 02-25-2024 12:23-0500 Body temperature 97.2 [degF] [facility] 02-25-2024 12:23-0500 Diastolic blood pressure 66 mm[Hg] [facility] 02-25-2024 12:23-0500 Heart rate 63 /min [facility] 02-25-2024 12:23-0500 Respiratory rate 16 /min [facility] 02-25-2024 12:23-0500 SaO2% (BldA) [Mass fraction] 98 % [facility] 02-25-2024 12:23-0500 Systolic blood pressure 158 mm[Hg] [facility] 01-30-2024 08:52-0400 Body height 167.64 cm [facility] 01-30-2024 08:52-0400 Body mass index (BMI) [Ratio] 28.8 kg/m2 [facility] 01-30-2024 08:52-0400 Body temperature 97.4 [degF] [facility] 01-30-2024 08:52-0400 Body weight 80.9 kg [facility] 01-30-2024 08:52-0400 Diastolic blood pressure 63 mm[Hg] [facility] 01-30-2024 08:52-0400 Heart rate 66 /min [facility] 01-30-2024 08:52-0400 Respiratory rate 16 /min [facility] 01-30-2024 08:52-0400 SaO2% (BldA) [Mass fraction] 99 % [facility] 01-30-2024 08:52-0400 Systolic blood pressure 129 mm[Hg] [facility] 12-25-2023 11:51-0400 Body height 167.64 cm [facility] 12-25-2023 11:51-0400 Body mass index (BMI) [Ratio] 27.6 kg/m2 [facility] 12-25-2023 11:51-0400 Body temperature 97.3 [degF] [facility] 12-25-2023 11:51-0400 Body weight 77.79 kg [facility] 12-25-2023 11:51-0400 Diastolic blood pressure 67 mm[Hg] [facility] 12-25-2023 11:51-0400 Heart rate 55 /min [facility] 12-25-2023 11:51-0400 Respiratory rate 16 /min [facility] 12-25-2023 11:51-0400 SaO2% (BldA) [Mass fraction] 98 % [facility] 12-25-2023 11:51-0400 Systolic blood pressure 148 mm[Hg] [facility] 11-28-2023 10:22-0400 Body height 167.64 cm [facility] 11-28-2023 10:22-0400 Body mass index (BMI) [Ratio] 27.8 kg/m2 [facility] 11-28-2023 10:22-0400 Body temperature 98 [degF] [facility] 11-28-2023 10:22-0400 Body weight 78.07 kg [facility] 11-28-2023 10:22-0400 Diastolic blood pressure 63 mm[Hg] [facility] 11-28-2023 10:22-0400 Heart rate 64 /min [facility] 11-28-2023 10:22-0400 Respiratory rate 16 /min [facility] 11-28-2023 10:22-0400 SaO2% (BldA) [Mass fraction] 98 % [facility] 11-28-2023 10:22-0400 Systolic blood pressure 151 mm[Hg] [facility] 10-28-2023 13:18-0400 Body height 167.64 cm [facility] 10-28-2023 13:18-0400 Body mass index (BMI) [Ratio] 27.8 kg/m2 [facility] 10-28-2023 13:18-0400 Body weight 78.24 kg [facility] 10-28-2023 13:18-0400 Diastolic blood pressure 61 mm[Hg] [facility] 10-28-2023 13:18-0400 Heart rate 54 /min [facility] [facility] 10-28-2023 13:18-0400 Respiratory rate 18 /min [facility] 10-28-2023 13:18-0400 SaO2% (BldA) [Mass fraction] 99 % [facility] 10-28-2023 13:18-0400 Systolic blood pressure 161 mm[Hg] [facility] 09-23-2023 13:32-0400 Body height 167.64 cm [facility] 09-23-2023 13:32-0400 Body mass index (BMI) [Ratio] 28.7 kg/m2 [facility] 09-23-2023 13:32-0400 Body temperature 97.5 [degF] [facility] 09-23-2023 13:32-0400 Body weight 80.73 kg [facility] 09-23-2023 13:32-0400 Diastolic blood pressure 67 mm[Hg] [facility] 09-23-2023 13:32-0400 Heart rate 60 /min [facility] 09-23-2023 13:32-0400 Respiratory rate 18 /min [facility] 09-23-2023 13:32-0400 SaO2% (BldA) [Mass fraction] 99 % [facility] 09-23-2023 13:32-0400 Systolic blood pressure 164 mm[Hg] [facility] 09-05-2023 09:39-0400 Body height 167.64 cm [facility] 09-05-2023 09:39-0400 Body mass index (BMI) [Ratio] 28 kg/m2 [facility] 09-05-2023 09:39-0400 Body temperature 96.9 [degF] [facility] 09-05-2023 09:39-0400 Body weight 78.92 kg [facility] 09-05-2023 09:39-0400 Diastolic blood pressure 71 mm[Hg] [facility] 09-05-2023 09:39-0400 Heart rate 57 /min [facility] 09-05-2023 09:39-0400 Respiratory rate 16 /min [facility] 09-05-2023 09:39-0400 SaO2% (BldA) [Mass fraction] 97 % [facility] 09-05-2023 09:39-0400 Systolic blood pressure 153 mm[Hg] [facility] 08-05-2023 13:38-0400 Body height 167.64 cm [facility] 08-05-2023 13:38-0400 Body mass index (BMI) [Ratio] 28.4 kg/m2 [facility] 08-05-2023 13:38-0400 Body temperature 97.4 [degF] [facility] 08-05-2023 13:38-0400 Body weight 80 kg [facility] 08-05-2023 13:38-0400 Diastolic blood pressure 63 mm[Hg] [facility] 08-05-2023 13:38-0400 Heart rate 63 /min [facility] 08-05-2023 13:38-0400 Respiratory rate 16 /min [facility] 08-05-2023 13:38-0400 SaO2% (BldA) [Mass fraction] 96 % [facility] 08-05-2023 13:38-0400 Systolic blood pressure 138 mm[Hg] [facility] 07-09-2023 14:50-0400 Body height 167.64 cm [facility] 07-09-2023 14:50-0400 Body mass index (BMI) [Ratio] 28.7 kg/m2 [facility] 07-09-2023 14:50-0400 Body temperature 97.1 [degF] [facility] 07-09-2023 14:50-0400 Body weight 80.79 kg [facility] 07-09-2023 14:50-0400 Diastolic blood pressure 62 mm[Hg] [facility] 07-09-2023 14:50-0400 Heart rate 62 /min [facility] 07-09-2023 14:50-0400 Respiratory rate 16 /min [facility] 07-09-2023 14:50-0400 SaO2% (BldA) [Mass fraction] 99 % [facility] 07-09-2023 14:50-0400 Systolic blood pressure 135 mm[Hg] [facility] 06-10-2023 10:36-0500 Body height 167.64 cm [facility] 06-10-2023 10:36-0500 Body mass index (BMI) [Ratio] 28.8 kg/m2 [facility] 06-10-2023 10:36-0500 Body temperature 96.9 [degF] [facility] 06-10-2023 10:36-0500 Body weight 80.85 kg [facility] 06-10-2023 10:36-0500 Diastolic blood pressure 58 mm[Hg] [facility] 06-10-2023 10:36-0500 Heart rate 57 /min [facility] 03-04-2024 10:36-0500 Respiratory rate 16 /min [facility] 06-10-2023 10:36-0500 SaO2% (BldA) [Mass fraction] 98 % [facility] 06-10-2023 10:36-0500 Systolic blood pressure 119 mm[Hg] [facility] 05-07-2023 09:40-0500 Body height 167.64 cm Oma Donato Other [facility] 05-07-2023 09:40-0500 Body mass index (BMI) [Ratio] 26.85 kg/m2 Oma Donato Other [employer] Other 05-07-2023 09:40-0500 Body temperature 96.3 [degF] Oma Donato Other [facility] Other 05-07-2023 09:40-0500 Body weight 75.48 kg Oma Donato Other [facility] Other 05-07-2023 09:40-0500 Body weight 75.47 kg [facility] 05-07-2023 09:40-0500 Diastolic blood pressure 72 mm[Hg] Oma Donato Other [facility] 05-07-2023 09:40-0500 Respiratory rate 18 /min Oma Donato Other [facility] Other 05-07-2023 09:40-0500 SaO2% (BldA) [Mass fraction] 99 % Oma Donato Other [facility] Other 05-07-2023 09:40-0500 Systolic blood pressure 129 mm[Hg] Oma Donato Other [facility] 05-06-2023 11:59-0500 Body height 170.2 cm Ruben Luo MD Work Phone: [facility] 05-06-2023 11:59-0500 Body mass index (BMI) [Ratio] 25.53 kg/m2 Ruben Luo MD Work Phone: [facility] 05-06-2023 11:59-0500 Body weight 73.94 kg Ruben Luo MD Work Phone: [facility] 04-30-2023 11:34-0500 Body height 170.2 cm Ruben Luo MD Work Phone: [facility] 04-30-2023 11:34-0500 Body mass index (BMI) [Ratio] 25.53 kg/m2 Ruben Luo MD Work Phone: [facility] 04-30-2023 11:34-0500 Body weight 73.94 kg Ruben Luo MD Work Phone: [facility] 04-30-2023 11:34-0500 Diastolic blood pressure 74 mm[Hg] Ruben Luo MD Work Phone: [facility] 04-30-2023 11:34-0500 Heart rate 70 /min Ruben Luo MD Work Phone: [facility] 04-30-2023 11:34-0500 SaO2% (BldA) [Mass fraction] 98 % Ruben Luo MD Work Phone: [facility] 04-30-2023 11:34-0500 Systolic blood pressure 122 mm[Hg] Ruben Luo MD Work Phone: [facility] 04-16-2023 10:00-0500 Body height 167.64 cm [facility] 04-16-2023 10:00-0500 Body weight 75.65 kg [facility] 04-16-2023 10:00-0500 Diastolic blood pressure 62 mm[Hg] [facility] 04-16-2023 10:00-0500 Systolic blood pressure 144 mm[Hg] [facility] 03-26-2023 09:00-0500 Body height 167.64 cm Oma Donato Other [facility] [employer] Other 03-26-2023 09:00-0500 Body mass index (BMI) [Ratio] 27.5 kg/m2 Oma Donato Other [facility] Other 03-26-2023 09:00-0500 Body temperature 96.6 [degF] Oma Donato Other [facility] Other 03-26-2023 09:00-0500 Body weight 77.29 kg Oma Donato Other [facility] Other 03-26-2023 09:00-0500 Respiratory rate 16 /min Oma Donato Other [facility] Other 03-26-2023 09:00-0500 SaO2% (BldA) [Mass fraction] 98 % Oma Donato Other [facility] Other 03-20-2023 10:30-0500 Body height 167.64 cm Ney Roman Other [facility] Other 03-20-2023 10:30-0500 Body mass index (BMI) [Ratio] 25.82 kg/m2 Ney Roman Other [facility] Other 03-20-2023 10:30-0500 Body temperature 97.8 [degF] Ney Roman Other [facility] Other 03-20-2023 10:30-0500 Body weight 72.58 kg Ney Roman Other [facility] Other 03-20-2023 10:30-0500 Diastolic blood pressure 64 mm[Hg] Ney Liaocassidy Other [facility] Other 03-20-2023 10:30-0500 SaO2% (BldA) [Mass fraction] 98 % Ney Liaocassidy Other [facility] Other 03-20-2023 10:30-0500 Systolic blood pressure 114 mm[Hg] Ney Liaocassidy Other [facility] Other 02-25-2023 13:40-0500 Body height 167.64 cm Oma Donato Other [facility] Other 02-25-2023 13:40-0500 Body mass index (BMI) [Ratio] 26.44 kg/m2 Oma Donato Other [facility] Other 02-25-2023 13:40-0500 Body temperature 97.2 [degF] Oma Donato Other [facility] Other 02-25-2023 13:40-0500 Body weight 74.3 kg Oma Donato Other [facility] Other 02-25-2023 13:40-0500 Diastolic blood pressure 64 mm[Hg] Oma Donato Other [facility] Other 02-25-2023 13:40-0500 Respiratory rate 18 /min Oma Donato Other [facility] Other 02-25-2023 13:40-0500 SaO2% (BldA) [Mass fraction] 99 % Oma Donato Other [facility] Other 02-25-2023 13:40-0500 Systolic blood pressure 124 mm[Hg] Oma Donato Other [facility] Other 01-29-2023 14:00-0400 Body height 167.64 cm Oma Donato Other [facility] Other 01-29-2023 14:00-0400 Body mass index (BMI) [Ratio] 27.4 kg/m2 Oma Donato Other [facility] Other 01-29-2023 14:00-0400 Body temperature 96.4 [degF] Oma Donato Other [facility] Other 01-29-2023 14:00-0400 Body weight 77.02 kg Oma Donato Other [facility] Other 01-29-2023 14:00-0400 Diastolic blood pressure 61 mm[Hg] Oma Donato Other [facility] Other 01-29-2023 14:00-0400 Respiratory rate 18 /min Oma Donato Other [facility] Other 01-29-2023 14:00-0400 SaO2% (BldA) [Mass fraction] 99 % Oma Donato Other [facility] Other 01-29-2023 14:00-0400 Systolic blood pressure 166 mm[Hg] Oma Donato Other [facility] Other 01-17-2023 12:20-0400 Body height 167.64 cm Oma Donato Other [facility] Other 01-17-2023 12:20-0400 Body mass index (BMI) [Ratio] 28.34 kg/m2 Oma Donato Other [facility] Other 01-17-2023 12:20-0400 Body temperature 97.3 [degF] Oma Donato Other [facility] Other 01-17-2023 12:20-0400 Body weight 79.65 kg Oma Donato Other [facility] Other 01-17-2023 12:20-0400 Diastolic blood pressure 66 mm[Hg] Oma Donato Other [facility] Other 01-17-2023 12:20-0400 Respiratory rate 18 /min Oma Donato Other [facility] Other 01-17-2023 12:20-0400 SaO2% (BldA) [Mass fraction] 98 % Oma Donato Other [facility] Other 01-17-2023 12:20-0400 Systolic blood pressure 149 mm[Hg] Oma Donato Other [facility] Other 12-06-2022 09:40-0400 Body height 167.64 cm Oma Donato Other [facility] Other 12-06-2022 09:40-0400 Body mass index (BMI) [Ratio] 27.79 kg/m2 Oma Donato Other [facility] Other 12-06-2022 09:40-0400 Body temperature 96.2 [degF] Oma Donato Other [facility] Other 12-06-2022 09:40-0400 Body weight 78.11 kg Oma Donato Other [facility] Other 12-06-2022 09:40-0400 Diastolic blood pressure 60 mm[Hg] Oma Donato Other [facility] Other 12-06-2022 09:40-0400 Respiratory rate 16 /min Oma Donato Other [facility] Other 12-06-2022 09:40-0400 SaO2% (BldA) [Mass fraction] 99 % Oma Donato Other [facility] Other 12-06-2022 09:40-0400 Systolic blood pressure 92 mm[Hg] Oma Donato Other [facility] 11-15-2022 13:20-0400 Body height 167.64 cm Oma Donato Other [facility] 11-15-2022 13:20-0400 Body temperature 96.5 [degF] Oma Donato Other [facility] Other 11-15-2022 13:20-0400 Diastolic blood pressure 64 mm[Hg] Oma Donato Other [facility] Other 11-15-2022 13:20-0400 Respiratory rate 18 /min Oma Donato Other [facility] 11-15-2022 13:20-0400 SaO2% (BldA) [Mass fraction] 98 % Oma Donato Other [facility] Other 11-15-2022 13:20-0400 Systolic blood pressure 130 mm[Hg] Oma Donato Other [facility] 10-25-2022 10:00-0400 Body height 167.64 cm Oma Donato Other [facility] 10-25-2022 10:00-0400 Body mass index (BMI) [Ratio] 27.79 kg/m2 Oma Donato Other [facility] 10-25-2022 10:00-0400 Body temperature 96.1 [degF] Oma Donato Other [facility] 10-25-2022 10:00-0400 Body weight 78.11 kg Oma Donato Other [facility] 10-25-2022 10:00-0400 Diastolic blood pressure 54 mm[Hg] Oma Donato Other [facility] 10-25-2022 10:00-0400 Respiratory rate 18 /min Oma Donato Other [facility] 10-25-2022 10:00-0400 SaO2% (BldA) [Mass fraction] 99 % Oma Donato Other [facility] 10-25-2022 10:00-0400 Systolic blood pressure 143 mm[Hg] Oma Donato Other [facility] 09-10-2022 16:20-0400 Body height 167.64 cm Oma Donato Other [facility] 09-10-2022 16:20-0400 Body mass index (BMI) [Ratio] 28.34 kg/m2 Oma Donato Other [facility] Other 09-10-2022 16:20-0400 Body temperature 97.2 [degF] Oma Donato Other [facility] 09-10-2022 16:20-0400 Body weight 79.65 kg Oma Donato Other [facility] 09-10-2022 16:20-0400 Diastolic blood pressure 64 mm[Hg] Oma Donato Other [facility] 09-10-2022 16:20-0400 Respiratory rate 18 /min Oma Donato Other [facility] 09-10-2022 16:20-0400 SaO2% (BldA) [Mass fraction] 98 % Oma Donato Other [facility] 09-10-2022 16:20-0400 Systolic blood pressure 128 mm[Hg] Oma Donato Other [facility] 08-22-2022 10:30-0400 Body height 167.64 cm Dasia Flowers Other [facility] Other 08-22-2022 10:30-0400 Body mass index (BMI) [Ratio] 27.92 kg/m2 Dasia Flowers Other [facility] Other 08-22-2022 10:30-0400 Body temperature 97.8 [degF] Dasia Flowers Other [facility] 08-22-2022 10:30-0400 Body weight 78.47 kg Dasia Flowers Other [facility] 08-22-2022 10:30-0400 Diastolic blood pressure 58 mm[Hg] Dasia Flowers Other [facility] 08-22-2022 10:30-0400 SaO2% (BldA) [Mass fraction] 98 % Dasia Flowers Other [facility] 08-22-2022 10:30-0400 Systolic blood pressure 96 mm[Hg] Dasia Flowers Other [facility] 08-14-2022 10:20-0400 Body height 167.64 cm Dorinda [employer] Other [employer] [facility] 08-14-2022 10:20-0400 Body mass index (BMI) [Ratio] 27.92 kg/m2 [employer]re [employer] Other [facility] [employer] Other 08-14-2022 10:20-0400 Body temperature 96.8 [degF] Aziz [employer] Other [facility] Other 08-14-2022 10:20-0400 Body weight 78.47 kg Azdandre [employer] Other [facility] 08-14-2022 10:20-0400 Diastolic blood pressure 57 mm[Hg] Dorinda Motley Other [facility] 08-14-2022 10:20-0400 Respiratory rate 18 /min Dorinda Motley Other [facility] 08-14-2022 10:20-0400 SaO2% (BldA) [Mass fraction] 99 % Dorinda Motley Other [facility] 08-14-2022 10:20-0400 Systolic blood pressure 98 mm[Hg] Dorinda Motley Other [facility] 07-26-2022 15:24-0400 Body temperature 98.01 [degF] Gabe Harris MD Work Phone: [facility] 07-26-2022 15:24-0400 Diastolic blood pressure 70 mm[Hg] Gabe Harris MD Work Phone: [facility] 07-26-2022 15:24-0400 Heart rate 74 /min Gabe Harris MD Work Phone: [facility] 07-26-2022 15:24-0400 Respiratory rate 18 /min Gabe Harris MD Work Phone: [facility] 07-26-2022 15:24-0400 SaO2% (BldA) [Mass fraction] 98 % Gabe Harris MD Work Phone: [facility] 07-26-2022 15:24-0400 Systolic blood pressure 114 mm[Hg] Gabe Harris MD Work Phone: [facility] [employer] 07-23-2022 03:33-0400 SaO2% (BldA) [Mass fraction] 97 % Gabe Harris MD Work Phone: [facility] [employer] 07-19-2022 18:09-0400 Body height 170.2 cm Gabe Harris MD Work Phone: [facility] [employer] 07-19-2022 18:09-0400 Body mass index (BMI) [Ratio] 26.47 kg/m2 Gabe Harris MD Work Phone: [employer] 07-19-2022 18:09-0400 Body weight 76.66 kg Gabe Harris MD Work Phone: [facility] [employer] 07-17-2022 09:40-0400 Body height 167.64 cm Oma Donato Other [employer] Other 07-17-2022 09:40-0400 Body mass index (BMI) [Ratio] 27.98 kg/m2 Oma Donato Other [facility] 07-17-2022 09:40-0400 Body temperature 98.3 [degF] Oma Donato Other [facility] Other 07-17-2022 09:40-0400 Body weight 78.65 kg Oma Donato Other [facility] 07-17-2022 09:40-0400 Diastolic blood pressure 60 mm[Hg] Oma Donato Other [facility] 07-17-2022 09:40-0400 Respiratory rate 18 /min Oma Donato Other [facility] 07-17-2022 09:40-0400 SaO2% (BldA) [Mass fraction] 97 % Oma Donato Other [facility] Other 07-17-2022 09:40-0400 Systolic blood pressure 124 mm[Hg] Oma Donato Other [facility] Other 06-21-2022 10:40-0400 Body height 167.64 cm Oma Donato Other [facility] 06-21-2022 10:40-0400 Body mass index (BMI) [Ratio] 28.5 kg/m2 Oma Donato Other [facility] 06-21-2022 10:40-0400 Body temperature 96.7 [degF] Oma Donato Other [facility] Other 06-21-2022 10:40-0400 Body weight 80.11 kg Oma Donato Other [facility] 06-21-2022 10:40-0400 Diastolic blood pressure 50 mm[Hg] Oma Donato Other [facility] 06-21-2022 10:40-0400 Respiratory rate 18 /min Oma Donato Other [facility] 06-21-2022 10:40-0400 SaO2% (BldA) [Mass fraction] 96 % Oma Donato Other [facility] Other 06-21-2022 10:40-0400 Systolic blood pressure 102 mm[Hg] Oma Donato Other [facility] Other 05-10-2022 10:00-0500 Body height 167.64 cm Oma Donato Other [facility] Other 05-10-2022 10:00-0500 Body mass index (BMI) [Ratio] 29.66 kg/m2 Oma Donato Other [facility] Other 05-10-2022 10:00-0500 Body temperature 96.6 [degF] Oma Donato Other [facility] Other 05-10-2022 10:00-0500 Body weight 83.37 kg Oma Donato Other [facility] Other 05-10-2022 10:00-0500 Diastolic blood pressure 53 mm[Hg] Oma Donato Other [facility] Other 05-10-2022 10:00-0500 Respiratory rate 18 /min Oma Donato Other [facility] 05-10-2022 10:00-0500 SaO2% (BldA) [Mass fraction] 98 % Oma Donato Other [facility] Other 05-10-2022 10:00-0500 Systolic blood pressure 134 mm[Hg] Oma Donato Other [facility] Other 05-07-2022 09:40-0500 Body height 167.64 cm Oma Donato Other [facility] Other 05-07-2022 09:40-0500 Body mass index (BMI) [Ratio] 29.21 kg/m2 Oma Donato Other [facility] Other 05-07-2022 09:40-0500 Body temperature 98.7 [degF] Oma Donato Other [facility] Other 05-07-2022 09:40-0500 Body weight 82.1 kg Oma Donato Other [facility] Other 05-07-2022 09:40-0500 Diastolic blood pressure 70 mm[Hg] Oma Donato Other [facility] 05-07-2022 09:40-0500 Respiratory rate 18 /min Oma Donato Other [facility] 05-07-2022 09:40-0500 SaO2% (BldA) [Mass fraction] 98 % Oma Donato Other [facility] Other 05-07-2022 09:40-0500 Systolic blood pressure 130 mm[Hg] Oma Donato Other [facility] Other 04-16-2022 10:18-0500 Diastolic blood pressure 58 mm[Hg] MD Ruben Luo Work Phone: [facility] 04-16-2022 10:18-0500 Heart rate 67 /min MD Ruben Luo Work Phone: [facility] 04-16-2022 10:18-0500 Respiratory rate 16 /min MD Ruben Luo Work Phone: [facility] 04-16-2022 10:18-0500 SaO2% (BldA) [Mass fraction] 98 % MD Ruben Luo Work Phone: [facility] 04-16-2022 10:18-0500 Systolic blood pressure 110 mm[Hg] MD Ruben Luo Work Phone: [facility] 04-16-2022 08:34-0500 Body height 170.18 cm MD Ruben Luo Work Phone: [facility] 04-16-2022 08:34-0500 Body temperature 98.3 [degF] MD Ruben Luo Work Phone: [facility] 04-16-2022 08:34-0500 Body weight 78.01 kg MD Ruben Luo Work Phone: [facility] 12-14-2021 10:20-0400 Body height 167.64 cm Oma Donato Other [facility] 12-14-2021 10:20-0400 Body mass index (BMI) [Ratio] 28.66 kg/m2 Oma Donato Other [facility] 12-14-2021 10:20-0400 Body temperature 96.7 [degF] Oma Donato Other [facility] Other 12-14-2021 10:20-0400 Body weight 80.56 kg Oma Donato Other [facility] 12-14-2021 10:20-0400 Diastolic blood pressure 61 mm[Hg] Oma Donato Other [facility] 12-14-2021 10:20-0400 Respiratory rate 18 /min Oma Donato Other [facility] 12-14-2021 10:20-0400 SaO2% (BldA) [Mass fraction] 99 % Oma Donato Other [facility] Other 12-14-2021 10:20-0400 Systolic blood pressure 138 mm[Hg] Oma Donato Other [facility] Other 09-21-2021 09:40-0400 Body height 167.64 cm Oma Donato Other [facility] Other 09-21-2021 09:40-0400 Body mass index (BMI) [Ratio] 29.57 kg/m2 Oma Donato Other [facility] 09-21-2021 09:40-0400 Body temperature 96.8 [degF] Oma Donato Other [facility] Other 09-21-2021 09:40-0400 Body weight 83.1 kg Oma Donato Other [facility] 09-21-2021 09:40-0400 Diastolic blood pressure 63 mm[Hg] Oma Donato Other [facility] 09-21-2021 09:40-0400 Respiratory rate 18 /min Oma Donato Other [facility] 09-21-2021 09:40-0400 SaO2% (BldA) [Mass fraction] 98 % Oma Donato Other [facility] Other 09-21-2021 09:40-0400 Systolic blood pressure 116 mm[Hg] Oma Donato Other [facility] 08-14-2021 15:20-0400 Body height 167.64 cm Oma Donato Other [facility] 08-14-2021 15:20-0400 Body mass index (BMI) [Ratio] 29.7 kg/m2 Oma Donato Other [facility] 08-14-2021 15:20-0400 Body temperature 98.4 [degF] Oma Donato Other [facility] 08-14-2021 15:20-0400 Body weight 83.46 kg Oma Donato Other [facility] 08-14-2021 15:20-0400 Diastolic blood pressure 60 mm[Hg] Oma Donato Other [facility] 08-14-2021 15:20-0400 Respiratory rate 18 /min Oma Donato Other [facility] 08-14-2021 15:20-0400 SaO2% (BldA) [Mass fraction] 99 % Oma Donato Other [facility] 08-14-2021 15:20-0400 Systolic blood pressure 152 mm[Hg] Oma Donato Other [facility] 08-10-2021 11:00-0400 Body height 167.64 cm Ney Roman Other [facility] 08-10-2021 11:00-0400 Body mass index (BMI) [Ratio] 29.21 kg/m2 Ney Liaocassidy Other [facility] 08-10-2021 11:00-0400 Body temperature 96.9 [degF] Ney Roman Other [facility] 08-10-2021 11:00-0400 Body weight 82.1 kg Ney Liaocassidy Other [facility] 08-10-2021 11:00-0400 Diastolic blood pressure 58 mm[Hg] Ney Liaocassidy Other [facility] Other 08-10-2021 11:00-0400 SaO2% (BldA) [Mass fraction] 95 % Ney Liaocassidy Other [facility] Other 08-10-2021 11:00-0400 Systolic blood pressure 130 mm[Hg] Ney Roman Other [facility] Other Encounters Encounter Date Encounter Type Care Provider Facility Start: 05-21-2024 End: 05-21-2024 ambulatory KAELA ALFONSO Not Available Start: 05-19-2024 End: 05-19-2024 ambulatory Ruben Luo MD Work Phone: [facility] Work Phone: Start: 05-19-2024 End: 05-19-2024 Patient encounter procedure Ruben Luo MD Work Phone: [facility] Work Phone: Start: 05-19-2024 End: 05-19-2024 Clinisync Result Encounter Ruben Luo MD Work Phone: [facility] External Department Unsolicited Start: 05-19-2024 End: 05-19-2024 Clinisync Result Encounter Ruben Luo MD Work Phone: [facility] External Department Unsolicited Start: 05-15-2024 Non-patient / Non-visit Ruben Luo MD Work Phone: [facility] Work Phone: Start: 05-15-2024 End: 05-15-2024 Clinisync Result Encounter Generic External Data Provider [facility] External Department Unsolicited Start: 05-15-2024 End: 05-15-2024 Clinisync Result Encounter Generic External Data Provider [facility] External Department Unsolicited Start: 05-13-2024 End: 05-13-2024 Bamboo flowsheet Ruben Luo MD Work Phone: [facility] Start: 05-13-2024 End: 05-13-2024 Bamboo flowsheet Ruben Luo MD Work Phone: [facility] Start: 05-13-2024 End: 05-13-2024 ambulatory RUBEN LUO Not Available Start: 05-11-2024 End: 05-11-2024 Clinisync Result Encounter Ruben Luo MD Work Phone: [facility] External Department Unsolicited Start: 05-11-2024 End: 05-11-2024 Clinisync Result Encounter Ruben Luo MD Work Phone: [facility] External Department Unsolicited Start: 05-07-2024 End: 05-07-2024 ambulatory [facility] Start: 05-04-2024 End: 05-04-2024 ambulatory Ruben Luo MD Work Phone: [facility] Work Phone: Start: 05-04-2024 End: 05-04-2024 Patient encounter procedure Ruben Luo MD Work Phone: [facility] Work Phone: Start: 04-30-2024 End: 04-30-2024 Clinisync Result Encounter Generic External Data Provider [facility] External Department Unsolicited Start: 04-30-2024 End: 04-30-2024 Clinisync Result Encounter Generic External Data Provider [facility] External Department Unsolicited Start: 04-30-2024 Non-patient / Non-visit Ruben Luo MD Work Phone: [facility] Work Phone: Start: 04-23-2024 End: 04-23-2024 ambulatory Ruben Luo MD Work Phone: [facility] Work Phone: Start: 04-23-2024 End: 04-23-2024 Patient encounter procedure Ruben Luo MD Work Phone: [facility] Work Phone: Start: 04-17-2024 End: 04-21-2024 Refill Ruben Luo MD Work Phone: [facility] Comment on above: Hyperlipidemia assoc iated with type 2 diabetes mellitus ([facility]/HCC) Start: 04-16-2024 End: 04-16-2024 Clinisync Result Encounter Generic External Data Provider [facility] External Department Unsolicited Start: 04-16-2024 End: 04-16-2024 Clinisync Result Encounter Generic External Data Provider [facility] External Department Unsolicited Start: 04-16-2024 Non-patient / Non-visit Ruben Luo MD Work Phone: [facility] Work Phone: Start: 03-25-2024 End: 03-25-2024 Patient encounter procedure Ruben Luo MD Work Phone: [facility] Work Phone: Start: 03-25-2024 End: 03-25-2024 ambulatory Ruben Luo Facility:[facility] Start: 03-23-2024 End: 03-23-2024 Patient encounter procedure Ruben Luo MD Work Phone: [facility] Work Phone: Start: 03-18-2024 End: 03-18-2024 Patient encounter procedure Ruben Luo MD Work Phone: [facility] Work Phone: Start: 03-13-2024 End: 03-13-2024 Clinisync Result Encounter Generic External Data Provider [facility] External Department Unsolicited Start: 03-13-2024 End: 03-13-2024 Clinisync Result Encounter Generic External Data Provider [facility] External Department Unsolicited Start: 03-13-2024 Non-patient / Non-visit Ruben Luo MD Work Phone: [facility] Work Phone: Start: 02-25-2024 End: 02-25-2024 ambulatory [facility] Work Phone: Start: 02-25-2024 End: 02-25-2024 Patient encounter procedure [facility] [place] Work Phone: Start: 02-21-2024 End: 02-21-2024 Clinisync Result Encounter Generic External Data Provider [facility] External Department Unsolicited Start: 02-21-2024 End: 02-21-2024 Clinisync Result Encounter Generic External Data Provider [facility] External Department Unsolicited Start: 02-21-2024 Non-patient / Non-visit [facility] Work Phone: Start: 01-30-2024 End: 01-30-2024 ambulatory [facility] Work Phone: Start: 01-30-2024 End: 01-30-2024 Patient encounter procedure [facility] [place] Work Phone: Start: 01-28-2024 End: 01-28-2024 Clinisync Result Encounter Generic External Data Provider [facility] External Department Unsolicited Start: 01-28-2024 End: 01-28-2024 Clinisync Result Encounter Generic External Data Provider [facility] External Department Unsolicited Start: 01-28-2024 Non-patient / Non-visit [facility] Work Phone: Start: 12-25-2023 End: 12-25-2023 ambulatory [facility] Work Phone: Start: 12-25-2023 End: 12-25-2023 Patient encounter procedure [facility] [place] Work Phone: Start: 12-23-2023 End: 12-23-2023 Clinisync Result Encounter Generic External Data Provider [facility] External Department Unsolicited Start: 12-23-2023 End: 12-23-2023 Clinisync Result Encounter Generic External Data Provider [facility] External Department Unsolicited Start: 12-23-2023 Non-patient / Non-visit [facility] Work Phone: Start: 12-18-2023 End: 12-18-2023 ambulatory [facility] Start: 11-28-2023 End: 11-28-2023 ambulatory [facility] Work Phone: Start: 11-28-2023 End: 11-28-2023 Patient encounter procedure [facility] Work Phone: Start: 11-26-2023 End: 11-26-2023 Clinisync Result Encounter Generic External Data Provider [facility] External Department Unsolicited Start: 11-26-2023 End: 11-26-2023 Clinisync Result Encounter Generic External Data Provider [facility] External Department Unsolicited Start: 11-26-2023 Non-patient / Non-visit [facility] Work Phone: Start: 10-30-2023 End: 10-30-2023 ambulatory RUBEN LUO Not Available Start: 10-28-2023 End: 10-28-2023 ambulatory [facility] Work Phone: Start: 10-28-2023 End: 10-28-2023 Patient encounter procedure [facility] Work Phone: Start: 10-23-2023 Non-patient / Non-visit [facility] Work Phone: Start: 09-23-2023 End: 09-23-2023 ambulatory [facility] Work Phone: Start: 09-23-2023 End: 09-23-2023 Patient encounter procedure [facility] Work Phone: Start: 09-20-2023 Non-patient / [facility]visit [facility] Work Phone: Start: 09-05-2023 End: 09-05-2023 ambulatory [facility] Work Phone: Start: 09-05-2023 End: 09-05-2023 Patient encounter procedure [facility] Work Phone: Start: 09-03-2023 Non-patient / Non-visit [facility] Work Phone: Start: 08-05-2023 End: 08-05-2023 ambulatory [facility] Work Phone: Start: 08-05-2023 End: 08-05-2023 Patient encounter procedure [facility] Work Phone: Start: 08-02-2023 Non-patient / Non-visit [facility] Work Phone: Start: 07-31-2023 End: 08-01-2023 ambulatory Shantel Villarreal PA-C Facility[facility] Start: 07-31-2023 ambulatory Natan German caro PAJimena Facility:[facility] Start: 07-25-2023 End: 07-25-2023 ambulatory Ruben Luo Facility:[facility] Start: 07-25-2023 End: 07-25-2023 ambulatory MD Ruben Luo Work Phone: [facility] Work Phone: Start: 07-25-2023 End: 07-25-2023 Patient encounter procedure MD Ruben Luo Work Phone: [facility] Start: 07-18-2023 End: 07-18-2023 ambulatory RUBEN LUO Not Available Start: 07-09-2023 End: 07-09-2023 ambulatory [facility] Work Phone: Start: 07-09-2023 End: 07-09-2023 Patient encounter procedure [facility] Work Phone: Start: 07-06-2023 Non-patient / Non-visit [facility] Work Phone: Start: 06-24-2023 End: 06-24-2023 ambulatory [facility] Start: 06-10-2023 End: 06-10-2023 Patient encounter procedure [facility] Neph[facility] Work Phone: Start: 06-07-2023 Non-patient / Non-visit [facility] Work Phone: Start: 05-07-2023 End: 05-07-2023 ambulatory Oma Donato Other [facility] [employer] Other Start: 05-07-2023 Office outpatient vi sit 15 minutes Oma Donato [facility] Start: 05-07-2023 End: 05-07-2023 Patient encounter procedure [facility]- Start: 05-06-2023 End: 05-06-2023 Office outpatient visit 15 minutes Ruben Luo MD Work Phone: [facility] Comment on above: Injury of right ankl e, initial encounter (Primary Dx); Fall (on) (from) other stairs and steps, initial encounter; Right ankle swelling; Overweight with body mass index (BMI) 25.0-29.9 Start: 04-30-2023 End: 04-30-2023 Office outpatient visit 25 minutes Ruben Luo MD Work Phone: [facility] Comment on above: Stage 4 chronic [...] without complication (CMS/HCC); Coronary arteriosclerosis (CMS/HCC) Start: 04-16-2023 End: 04-16-2023 Patient encounter procedure [facility] Neph[facility] Work Phone: Start: 04-15-2023 End: 04-15-2023 ambulatory Oma Donato Other [employer] Other Start: 04-15-2023 Telephone encounter Oma Donato [facility] Start: 03-26-2023 End: 03-26-2023 ambulatory Oma Donato Other [employer] Other Start: 03-26-2023 Office outpatient vi sit 15 minutes Oma Donato [facility] Start: 03-20-2023 Office outpatient vi sit 15 minutes Ney Roman [facility] Vascular Surgery Start: 03-20-2023 End: 03-20-2023 ambulatory MD Ruben Luo Work Phone: [facility] Other Start: 03-20-2023 End: 03-20-2023 Patient encounter procedure MD Ruben Luo Work Phone: [facility] Start: 02-25-2023 (INJECTION) INJECTION Oma Donato [facility] Start: 02-25-2023 End: 02-25-2023 ambulatory Oma Donato Other [employer] Other Start: 02-11-2023 End: 02-11-2023 ambulatory Oma Donato Other [employer] Other Start: 02-11-2023 Telephone encounter Oma Donato [facility] Start: 01-31-2023 End: 02-01-2023 ambulatory Lizette Osorio PA-C Facility:[facility] Start: 01-30-2023 End: 01-31-2023 ambulatory Gabe Harris MD Facility:[facility] Start: 01-29-2023 End: 01-29-2023 ambulatory Oma Donato Other [employer] Other Start: 01-29-2023 Office outpatient vi sit 15 minutes Oma Donato [facility] Start: 01-17-2023 (INJECTION) INJECTION Oma Donato [facility] Start: 01-17-2023 End: 01-17-2023 ambulatory Oma Donato Other [employer] Other Start: 01-11-2023 End: 01-12-2023 ambulatory RUEBN Porter [facility] Start: 01-11-2023 End: 01-12-2023 Encounter for preprocedural laboratory examination RUBEN Porter [facility] Start: 01-10-2023 End: 01-10-2023 Encounter for preprocedural cardiovascular examination [facility] Start: 01-10-2023 Encounter for other preprocedural examination [facility] Start: 01-10-2023 End: 01-13-2023 ambulatory [facility] Start: 01-10-2023 End: 01-13-2023 Encounter for preprocedural respiratory examination [facility] Start: 01-08-2023 End: 01-09-2023 ambulatory Domenic Roca MD Facility:[facility] Start: 12-25-2022 End: 12-28-2022 ambulatory [facility] Start: 12-06-2022 End: 12-06-2022 ambulatory Oma Donato Other [employer] Other Start: 12-06-2022 Office outpatient vi sit 15 minutes Oma Donato [facility] Start: 11-15-2022 End: 11-15-2022 ambulatory Oma Donato Other [employer] Other Start: 11-15-2022 Office outpatient vi sit 15 minutes Oma Donato [facility] Start: 10-25-2022 End: 10-25-2022 ambulatory Oma Donato Other [employer] Other Start: 10-25-2022 Office outpatient vi sit 15 minutes Oma Donato [facility] [place] Start: 09-10-2022 End: 09-10-2022 ambulatory Oma Donato Other [employer] Other Start: 09-10-2022 Office outpatient vi sit 15 minutes Oma Donato [facility] Start: 08-22-2022 End: 08-22-2022 ambulatory Dasia Flowers Other [employer] Other Start: 08-22-2022 Patient encounter procedure Dasia Flowers [facility] Vascular Surgery Start: 08-14-2022 End: 08-14-2022 ambulatory Dorinda Benders Other [employer] Other Start: 08-14-2022 Office outpatient vi sit 15 minutes Dorinda Motley [facility] Start: 08-10-2022 End: 08-11-2022 ambulatory OMA DONATO Facility:[facility] Start: 08-08-2022 End: 08-09-[address] RUBEN LUO . Facility:[facility] Start: 07-19-2022 End: 07-26-2022 Evaluation and management of inpatient OLUREMI A DYAN [facility] Start: 07-19-2022 End: 07-26-2022 Evaluation and management of inpatient Tylerkrishlori Harris MD Work Phone: [facility] Comment on above: Lumbar stenosis with neurogenic claudication (Primary Dx) Start: 07-17-2022 End: 07-17-2022 ambulatory Oma Donato Other [employer] Other Start: 07-17-2022 Office outpatient vi sit 15 minutes Oma Donato [facility] Start: 07-12-2022 End: 07-13-2022 ambulatory OMA DONATO Facility:[facility] Start: 07-12-2022 End: 07-13-[address] RUBEN LUO . Facility:[facility] Start: 2022 Encounter for preprocedural laboratory examination DR DOCTOR BARROSO [facility] Start: 2022 Encounter for preprocedural respiratory examination DR DOCTOR BARROSO [facility] Start: 2022 End: 07-06-2022 ambulatory RUBEN LUO [facility] Start: 2022 Patient encounter procedure RUBEN LUO [facility] Start: 2022 End: [address] [facility] Start: 2022 End: 2022 Subsequent hospital visit by physician Str Xr Rm 2 [facility] Comment on above: Examination for norm al comparison for clinical research Start: 07-04-2022 End: 07-04-2022 ambulatory Oma Donato Other [employer] Other Start: 07-04-2022 Telephone encounter Oma Donato [facility] Start: 07-02-2022 End: 07-03-[address] DOCTOR BARROSO Facility:[facility] Start: 07-02-2022 End: 07-03-2022 Encounter for preprocedural respiratory examination DR DOCTOR BARROSO Facility:[facility] Start: 06-21-2022 End: 06-21-2022 ambulatory Oma Donato Other [employer] Other Start: 06-21-2022 Office outpatient vi sit 15 minutes Oma Donato [facility] Start: 06-21-2022 Telephone encounter Oma Donato [facility] Start: 06-19-2022 End: 06-20-2022 ambulatory OMA DONATO Facility: Start: 05-30-2022 End: 06-02-2022 ambulatory [facility] Start: 05-30-2022 End: 06-01-2022 Subsequent hospital [facility] Comment on above: Osteopenia of lumbar spine Spinal stenosis, lum bar region, without neurogenic claudication; Right foot drop Start: 05-10-2022 (INJECTION) INJECTION Oma Donato [facility] Start: 05-10-2022 End: 05-10-2022 ambulatory Oma Donato Other [employer] Other Start: 05-08-2022 End: 05-11-2022 ambulatory [facility]EL [facility]LAINE [facility] Start: 05-08-2022 End: 05-10-2022 Subsequent hospital visit by physician Dhruv [facility] Sc[facility] Comment on above: 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; Lumbar spondylosis; Postlaminectomy syndrome, lumbar; Spinal stenosis of lumbar region with neurogenic claudication Start: 05-07-2022 Office outpatient vi sit 25 minutes Oma Donato [facility] Start: 05-07-2022 Telephone encounter Oma Donato [facility] Start: 05-07-2022 End: 05-08-2022 ambulatory OMA DONATO [facility] [employer] Other Start: 04-16-2022 End: 04-16-2022 Admission to same day surgery center MD Ruben Luo Work Phone: [facility]-Digestive [facility] Work Phone: Start: 04-16-2022 End: 04-16-2022 ambulatory MD Rubne Luo Work Phone: [facility] Work Phone: Start: 04-13-2022 End: 04-14-[address] RUBEN LUO . Facility:[facility] Start: 04-12-2022 End: 04-12-2022 ambulatory MD Ruben Luo Work Phone: [facility] Work Phone: Start: 04-12-2022 End: 04-12-2022 Patient encounter procedure MD Ruben Luo Work Phone: [facility]-Pre-Surgical Testing Work Phone: Start: 01-22-2022 Telephone encounter [place] OLIVEIRA [facility] Start: 01-22-2022 End: 01-23-2022 ambulatory OMA DONATO [facility] [employer] Other Start: 12-27-2021 End: 12-27-[address] RUBEN LUO . Facility:[facility] Start: 12-14-2021 End: 12-14-2021 ambulatory Oma Donato Other [facility] Other Start: 12-14-2021 Office outpatient vi sit 25 minutes Oma Donato [facility] Start: 12-09-2021 End: 12-10-2021 ambulatory OMA DONATO Facility:[facility] Start: 10-13-2021 End: 10-14-[address] RUBEN LUO . Facility:[facility] Start: 10-07-2021 End: 10-08-[address] RUBEN LUO . Facility:[facility] Start: 09-21-2021 End: 09-21-2021 ambulatory Oma Donato Other [employer] Other Start: 09-21-2021 Office outpatient vi sit 25 minutes Oma Donato [facility] Start: 09-15-2021 End: 09-16-[address] RUBEN LUO . Facility: Start: 09-01-2021 End: 09-02-[address] RUBEN LUO . Facility: Start: 08-14-2021 End: 08-14-2021 ambulatory Oma Donato Other [employer] Other Start: 08-14-2021 Office outpatient ne w 45 minutes Oma Donato [facility] Start: 08-10-2021 End: 08-10-2021 ambulatory Ney Roman Other [employer] Other Start: 08-10-2021 Office outpatient vi sit 15 minutes Ney Roman [facility] Vascular Surgery Start: 04-22-2019 End: 04-22-2019 Subsequent hospital visit by physician Ruben Luo MD Other Phone: [facility] Comment on above: Enlarged prostate; BPH with obstruction/lower urinary tract symptoms; Abnormal digital rectal exam; Erectile dysfunction, unspecified erectile dysfunction type Start: 09-12-2018 End: 09-13-2018 Patient encounter procedure PROVIDER UNKNOWN Facility:[facility] Start: 01-17-2018 End: 01-18-2018 Patient encounter procedure GABY ORTIZ Facility:[facility] Procedures Date Procedure Procedure Detail Performing Clinician Start: 05-19-2024 C. DIFFICILE PCR Ruben Luo MD Work Phone: Start: 05-15-2024 [facility] CBC WITH PLATEL ET NO DIFFERENTIAL Generic External Data Provider Start: 05-11-2024 CA ECHO DOPPLER COMPLETE Generic External Data Provider Start: 05-11-2024 MLR HEMOGLOBIN A1C Ruiz Luo MD Work Phone: Start: 04-30-2024 [facility] CBC WITH PLATEL ET NO DIFFERENTIAL Generic External Data Provider Start: 04-16-2024 [facility] CBC WITH PLATEL ET NO DIFFERENTIAL Generic External Data Provider Start: 03-25-2024 Doppler ultrasonogra phy of bilateral carotid arteries Ruben Luo MD Work Phone: Start: 03-13-2024 ALL RENAL FUNCTION PANEL Generic External Data Provider Start: 03-13-2024 [facility] CBC WITH PLATEL ET NO DIFFERENTIAL Generic External Data Provider Start: 02-21-2024 ALL MAGNESIUM Generic E xternal Data Provider Start: 02-21-2024 ALL RENAL FUNCTION PANEL Generic External Data Provider Start: 02-21-2024 ALL URIC ACID Generic E xternal Data Provider Start: 02-21-2024 [facility] FERRITIN Generic Ex ternal Data Provider Start: 02-21-2024 [facility] CBC WITH PLATEL ET NO DIFFERENTIAL Generic External Data Provider Start: 02-21-2024 METRO IRON AND TIBC Gen connie External Data Provider Start: 02-21-2024 [facility] VITAMIN D 25 [place] Gen connie External Data Provider Start: 02-21-2024 [facility] URINALYSIS, WIT H MICROSCOPIC Generic External Data Provider Start: 02-21-2024 [facility] URINE T PROTEIN CREAT RATIO Generic External Data Provider Start: 01-28-2024 ALL RENAL FUNCTION PANEL Generic External Data Provider Start: 12-23-2023 [facility] CBC WITH PLATEL ET NO DIFFERENTIAL Generic External Data Provider Start: 11-26-2023 [facility] CBC WITH PLATEL ET NO DIFFERENTIAL Generic External Data Provider Start: 03-20-2023 Doppler ultrasonogra phy of bilateral [...] Start: 07-26-2022 GLOMERULAR FILTRATIO N RATE, ESTIMATED yKlie Acuna MD Work Phone: Start: 07-25-2022 Gluc [...] Phone: Start: 07-25-2022 Anion gap [Moles/Vol] Itzel tameka Ellison PA-C Work Phone: Start: 07-25-2022 Basic metabolic pane l calcium total Sharon Ellison PA-C Work Phone: Start: 07-25-2022 GLOMERULAR FILTRATIO N RATE, ESTIMATED Sharonlarisa Ellison PA-C Work Phone: Start: 07-25-2022 Gluc bld gluc mntr d ev cleared fda spec home use Sharonlarisa KNOWLESC Work Phone: Start: 07-24-2022 Gluc bld gluc mntr d ev cleared fda spec home use Sharonlarisa Ellison PA-C Work Phone: Start: 07-24-2022 Gluc bld gluc mntr d ev cleared fda spec home use Sharon Terra RUCKER-Sánchez Work Phone: Start: 07-24-2022 Potassium serum plasma/whole blood Kylie Acuna MD Work Phone: Start: 07-24-2022 Gluc bld gluc mntr d ev cleared fda spec home use Sharonlarisa Ellison PA-C Work Phone: Start: 07-24-2022 Gluc bld gluc mntr d ev cleared fda spec home use Sharonlarisa Ellison PA-C Work Phone: Start: 07-24-2022 Anion gap [Moles/Vol] S tameka Terra VÁSQUEZ Work Phone: Start: 07-24-2022 Basic metabolic pane l calcium total Sharon Ellison PA-C Work Phone: Start: 07-24-2022 GLOMERULAR FILTRATIO N RATE, ESTIMATED Sharonlarisa Ellison PA-C Work Phone: Start: 07-23-2022 Gluc bld gluc mntr d ev cleared fda spec home use Sharonlarisa Ellison PA-C Work Phone: Start: 07-23-2022 Dup-scan [...] home use Sharon KNOWLESC Work Phone: Start: 07-23-2022 Anion gap [Moles/Vol] S tameka RUCKER-C Work Phone: Start: 07-23-2022 End: 07-23-2022 Basic [...] home use Sharon KNOWLESC Work Phone: Start: 07-22-2022 Gluc bld gluc [...] GLOMERULAR FILTRATIO N RATE, ESTIMATED Sharon Terra KNOWLESC Work Phone: Start: 07-21-2022 Gluc bld gluc mntr d ev cleared fda spec home use Sharon Terra KNOWLESC Work Phone: Start: 07-21-2022 Gluc bld gluc mntr d ev cleared fda spec home use Sharon Terra RUCKER-C Work Phone: Start: 07-21-2022 Gluc bld gluc mntr d ev cleared fda spec home use Sharon Terra RUCKER-C Work Phone: Start: 07-21-2022 Gluc bld gluc mntr d ev cleared fda spec home use Sharon Terra VÁSQUEZ Work Phone: Start: 07-21-2022 Anion gap [Moles/Vol] S tameka Terra VÁSQUEZ Work Phone: Start: 07-21-2022 Basic metabolic pane l calcium total Sharonlarisa Ellison PA-C Work Phone: Start: 07-21-2022 GLOMERULAR FILTRATIO N RATE, ESTIMATED Sharon Terra VÁSQUEZ Work Phone: Start: 07-20-2022 Gluc bld gluc mntr d ev cleared fda spec home use Sharon Terra KNOWLESC Work Phone: Start: 07-20-2022 Gluc bld gluc mntr d ev cleared fda spec home use Sharonlarisa Ellison PA-C Work Phone: Start: 07-20-2022 Fluoroscopy [...] Work Phone: Comment on above: Performed at [facility] [address] [place] [id number] Start: 07-19-2022 Anion gap [Moles/Vol] S tameka Ellison PA-C Work Phone: Start: 07-19-2022 Basic metabolic pane l calcium total Sharon Ellison PA-C Work Phone: Start: 07-19-2022 Blood typing serologic abo Sharon Ellison PA-C Work Phone: Start: 07-19-2022 GLOMERULAR FILTRATIO N RATE, ESTIMATED Sharon Ellison PA-C Work Phone: Start: 05-30-2022 Dxa bone density hoang dy 1/> sites axial skel Sharon Ellison PAJimena Work Phone: Start: 05-21-2022 XR COMPARISON OF OUT SIDE FILMS Gissel Escobedo MD Work Phone: Start: 05-08-2022 Mri spinal canal lum bar w/o contrast material 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 - [employer] Work Phone: Start: 04-16-2022 Colonoscopy MD Ruben Luo Work Phone: Start: 04-12-2022 SARS Antigen (LFIA) MD Ruben Luo Work Phone: Start: 01-12-2022 End: 07-26-2023 History of placement of stent for coronary artery disease Status post coronary artery stent placement Ruben Luo MD Work Phone: Start: 04-22-2019 Urnls dip stick/tabl et reagent auto microscopy Ralph Mccurdy MD Work Phone: Start: 01-17-2018 CORONARY ARTERY SHIKHA O S\T\I VADIM V MOUKARBEL Start: 01-16-2017 Colonoscopy Ruben levin MD Work Phone: Laboratory test resu lt abnormal Ney Jessie Other Plan of Treatment Date Care Activity Detail Author Start: 01-16-2027 Screening for malign ant neoplasm of colon [facility] Start: 03-01-2025 Urine screening for protein Diabetes: Urine Protein Screening [facility] Start: 10-22-2024 Urine screening for protein Diabetes: Urine Protein Screening [facility] Start: 07-29-2024 End: 07-29-2024 Patient encounter procedure 07/29/2024 11:00 AM EDT Office Visit [facility] [address] [place] [address] Ruben Luo MD [address] [place] [address] (Fax) [facility] Start: 06-08-2024 Glaucoma screening Diabetes: R etinopathy Screening [facility] Start: 05-21-2024 End: 05-21-2024 Patient encounter procedure 05/21/2024 8:40 AM EST Office Visit [facility] [address] [facility] [address] [place] [address] Kaela Alfonso MD [address] House [address] [place] [id number] [facility] Start: 05-13-2024 End: 05-13-2024 Patient encounter procedure [facility] Comment on above: Primary hypertension (CMS/HCC); Hyperlipidemia associated with type 2 diabetes mellitus (CMS/HCC); Type 2 diabetes mellitus with stage 4 chronic kidney disease, without long-term current use of insulin (CMS/HCC); Hypertensive kidney disease with stage 4 chronic kidney disease (CMS/HCC); Polypharmacy; Former smoker, stopped smoking in distant past; Overweight with body mass index (BMI) 25.0-29.9 Start: 04-24-2024 Hemoglobin A1c measurement Diabetes: Hemoglobin A1C [facility] Start: 02-04-2024 End: 02-04-2024 Patient encounter procedure 02/04/2024 10:00 AM EDT Office Visit [facility] [address] [facility] [address] [place] [address] Ruben Luo MD [address] [facility] [place] [address] [facility] Start: 01-23-2024 Hemoglobin A1c measurement Diabetes: Hemoglobin A1C [facility] Start: 12-08-2023 Influenza vaccination Influenza Vacc ine (#1) [facility] Start: 07-27-2023 GFR test (Diabetes, CKD 3-4, OR last GFR 15-59) GFR test (Diabetes, CKD 3-4, OR last GFR 15-59) [facility] Start: 07-25-2023 MR Thoracic spine [facility] Start: 07-25-2023 MRI of thoracic spin e without contrast MRI Thoracic Spine w/o Contras [facility] Start: 07-21-2023 Hemoglobin A1c measurement A1C test (Diabetic or Prediabetic) [employer] Start: 07-13-2023 Urine screening for protein Diabetes: Urine Protein Screening [facility] [facility] Start: 06-26-2023 Medicare Annual Well ness (AWV) Medicare Annual Wellness (AWV) [facility] Start: 04-13-2023 Hemoglobin A1c measurement Diabetes: Hemoglobin A1C [facility] Start: 07-20-2022 End: 07-20-2022 Admission to same day surgery center 07/20/2022 Surgery IP Unit Gabe Harris MD [address] [place] [address] L2-S1 REVISION DECOMPRESSION WITH L2-PELVIS FUSION STRZ [...] Gabe Harris MD [address] [place] [address] [facility] Start: 04-16-2022 [facility] Start: 04-22-2019 Annual Wellness Visi t (AWV) Annual Wellness Visit (AWV) [facility] [employer] Start: 12-07-2018 Influenza vaccination Flu vaccine (# 1) [employer] Phone: Start: 04-04-2016 Creatinine monitoring Creatinine mon itoring [employer] Phone: Start: 04-04-2016 Potassium monitoring [facility] [employer] Phone: Start: 2014 Abdominal aortic aneurysm screening AAA screen [employer] Start: 2014 Pneumococcal 65+ yea rs Vaccine (1 of 1 - PPSV23) Pneumococcal 65+ years Vaccine (1 of 1 - PPSV23) [employer] Phone: Start: 07-06-1999 Colon cancer screen colonoscopy Colon cancer screen colonoscopy [employer] Phone: Start: 07-06-1999 Shingles Vaccine (1 of 2) Shingles Vaccine (1 of 2) [facility] Start: 1994 Screening for malign ant neoplasm of colon [facility] Start: 1989 Lipid panel [facility]ids [facility] Start: 1989 Lipid screen [facility] Phone: Start: 1968 DTaP/Tdap/Td vaccine (1 - Tdap) DTaP/Tdap/Td vaccine (1 - Tdap) [facility] Start: 07-06-1967 Glaucoma screening Diabetic retinal exam [facility] Start: 07-06-1967 Hepatitis C screening Hepatitis C sc reen [facility] Start: 07-06-1967 Urine screening for protein Diabetic Alb to Cr ratio (uACR) test [facility] Start: 1961 Depression Screen Depression Screen [facility] [employer] Start: 1960 DTaP/Tdap/Td vaccine (1 - Tdap) DTaP/Tdap/Td vaccine (1 - Tdap) [employer] Phone: Start: 07-06-1959 Diabetic foot examination Diabetic foot exam [facility] Start: 07-06-1959 Lipid panel Lipids [place] [employer] Start: 1949 AAA screen AAA screen [employer] Work Phone: Start: 1949 Hepatitis C screen Hepatitis C scree n [employer] Phone: Start: 1949 Screening for malign ant neoplasm of colon [facility] End: 04-22-2019 Bacteria identified in Urine by Culture Urine Culture Microbiology Routine 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 Abnormal digital rectal exam Erectile dysfunction, unspecified erectile dysfunction type 1 Occurrences starting 04/22/2019 until 04/22/2019 [employer] Phone: Comment on above: 1 Occurrences starti ng 04/22/2019 until 04/22/2019 Bacteria identified in Urine by Culture Urine Culture Microbiology Routine 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 Abnormal digital rectal exam Erectile dysfunction, unspecified erectile dysfunction type 04/22/2019 6:56 PM [facility] Phone: End: 05-30-2022 CT LUMBAR SPINE WO CONTRAST [employer] Phone: Comment on above: 1 Occurrences starti ng 05/30/2022 until 05/30/2022 End: 05-30-2022 CT THORACIC SPINE WO CONTRAST [employer] Phone: Comment on above: 1 Occurrences starti ng 05/30/2022 until 05/30/2022 Glucose [Mass/volume ] in Serum or Plasma [employer] Phone: Comment on above: 4X Daily (AC & HS) u ntil discontinued starting 07/19/2022, 29 completed As Needed until disc ontinued starting 07/19/2022 End: 07-20-2022 Hemoglobin and Hematocrit Hemoglobin and Hematocrit Lab Routine Post Transfusion Post Transfusion Post Transfustion until discontinued starting 07/19/2022 [employer] Phone: Comment on above: Post Transfusion Pos t Transfusion Post Transfustion until discontinued starting 07/19/2022 Initiate RT Inhaler-Nebulizer Bronchodilator Protocol Initiate RT Inhaler-Nebulizer Bronchodilator Protocol Respiratory Care Routine As Needed until discontinued starting 07/21/2022 [employer] Phone: Comment on above: As Needed until disc ontinued starting 07/21/2022 Oxygen therapy [[facility] Data Set] Initiate Oxygen Therapy Protocol Respiratory Care Routine As Needed until discontinued starting 07/20/2022 [employer] Phone: Comment on above: As Needed until disc ontinued starting 07/20/2022 Patient Education Colon Polypectomy (DC) [facility] Work Phone: Renal function 1999 panel - Serum or Plasma [facility] Renal function 2000 panel - Serum or Plasma [facility] Renal function 2000 panel - Serum or Plasma [facility] Renal function 2000 panel - Serum or Plasma [facility] Renal function 2000 panel - Serum or Plasma [facility] Renal function 2000 panel - Serum or Plasma [facility] Renal function 2000 panel - Serum or Plasma [facility] Renal function 2000 panel - Serum or Plasma [facility] Renal function 2000 panel - Serum or Plasma [facility] Renal function 2000 panel - Serum or Plasma [facility] Spirometry panel Incentive erma metry Respiratory Care Routine Every 2hr while awake until discontinued starting 07/20/2022 [facility] [employer] [facility] Work Phone: Comment on above: Every 2hr while awak e until discontinued starting 07/20/2022 US.doppler Carotid arteries - bilateral [facility] Immunizations Immunization Date Immunization Notes Care Provider [facility] 04-02-2024 influenza virus vaccine, unspecified formulation Generic Provider [facility] 03-20-2023 Influenza, Seasonal, Quadrivalent, Adjuvanted Ruben Luo MD Work Phone: [facility] 03-20-2023 influenza virus vaccine, unspecified formulation Generic Provider [facility] 02-03-2022 Moderna Bivalent Booster Vaccination Ruben Luo MD Work Phone: [facility] 02-03-2022 Moderna SARS-CoV-2 Booster Vaccination Ruben Luo MD Work Phone: [facility] 02-03-2022 Moderna SARS-CoV-2 Vaccination Ruben Luo MD Work Phone: [facility] 02-03-2022 SARS-CoV-2, Unspecified Ruiz Luo MD Work Phone: [facility] 12-19-2021 influenza, high dose seasonal, preservative-free Ruben Luo MD Work Phone: [facility] 12-19-2021 Influenza, High-dose Seasonal, Quadrivalent, Preservative Free Ruben Luo MD Work Phone: [facility] 02-04-2021 Moderna SARS-CoV-2 Vaccination Ruben Luo MD Work Phone: [facility] 02-03-2021 Moderna SARS-CoV-2 Booster Vaccination Ruben Luo MD Work Phone: [facility] 01-08-2021 Influenza, High-dose Seasonal, Quadrivalent, Preservative Free Ruben Luo MD Work Phone: [facility] 06-14-2020 Moderna SARS-CoV-2 Vaccination Generic Provider [facility] 06-13-2020 Moderna SARS-CoV-2 Vaccination Ruben Luo MD Work Phone: [facility] 05-16-2020 Moderna SARS-CoV-2 Vaccination Generic Provider [facility] 05-15-2020 Moderna SARS-CoV-2 Vaccination Ruben Luo MD Work Phone: [facility] 01-15-2020 influenza, high dose seasonal, preservative-free Ruben Luo MD Work Phone: [facility] 01-14-2020 Influenza, High-dose Seasonal, Quadrivalent, Preservative Free Ruben Luo MD Work Phone: [facility] 12-22-2019 pneumococcal polysaccharide vaccine, 23 valent Ruben Luo MD Work Phone: [facility] 12-22-2019 Seasonal, quadrivale nt, recombinant, injectable influenza vaccine, preservative free Ruben Luo MD Work Phone: [facility] 12-13-2018 Seasonal trivalent influenza vaccine, adjuvanted, preservative free Ruben Luo MD Work Phone: [facility] 12-01-2018 pneumococcal conjuga te vaccine, 13 valent Ruben Luo MD Work Phone: [facility] 01-29-2018 Seasonal trivalent influenza vaccine, adjuvanted, preservative free Ruben Luo MD Work Phone: [facility] 01-19-2017 influenza virus vaccine, unspecified formulation [facility] 01-19-2017 Seasonal trivalent influenza vaccine, adjuvanted, preservative free Ruben Luo MD Work Phone: [facility] 01-19-2017 influenza, high dose seasonal, preservative-free Ney Roman Other [facility] [employer] Other 02-11-2016 influenza, high dose seasonal, preservative-free Ruben Luo MD Work Phone: [facility] 04-06-2014 influenza virus vaccine, unspecified formulation [facility] 04-06-2014 influenza, seasonal, injectable Ruben Luo MD Work Phone: [facility] 04-06-2014 influenza, seasonal, injectable, preservative free Ruben Luo MD Work Phone: [facility] 04-06-2014 influenza, high dose seasonal, preservative-free Ney Roman Other [facility] [employer] Other 04-06-2014 influenza, injectabl e, quadrivalent, preservative free Oma Sewell Other [facility] [employer] Other 05-01-2013 seasonal influenza, intradermal, preservative free Ruben Luo MD Work Phone: [facility] 01-17-2011 pneumococcal polysaccharide vaccine, 23 valent Ruben Luo MD Work Phone: [facility] 01-29-2010 pneumococcal polysaccharide vaccine, 23 valent Ruben Luo MD Work Phone: [facility] Payers Date Payer Category Payer Self-pay [id number] 2021 Private Health Insurance [employer] [id number] 2019 Unknown [employer] M [employer] [address] xxxxxxxxxxxx 2019-Present [phone] [address] [place] [address] xxxxxxxxxxxx [id number] .[id number] 2019 Unknown [id number]. 1.13.693.2 .[id number] 2014 Medicare MEDICARE MEDICAR E PART A AND B xxxxxxxxxxx 2014-Present [phone] [address] [address] [place] [address] xxxxxxxxxxx [id number] .[id number] 2014 Medicare [id number]. 1.13.693.2 .7.3.531424.315 1959 Medicare [id number] 1959 Unknown [id number] 2.16840.1.934124.19 1949 Unknown [id number] 2.16840.1.418040.3.579.2 .647 1949 Unknown [id number] 2.16840.1.889561.3.579.2 .647 1949 Unknown [id number] 2.16.840.1.875877.3.579.2 .93 1949 Unknown [id number] 2.16.840.1.984413.3.579.2 .93 1949 Unknown [id number] 2.16.840.1.675067.3.579.2 .593 1949 Unknown [id number] 2.16.840.1.343084.3.579.2 .593 1949 Unknown [id number] 2.16.840.1.281721.3.579.2 .593 1949 Unknown [id number] 2.16.840.1.238530.3.579.2 .593 1949 Unknown [id number] 2.16.840.1.946569.3.579.2 .593 1949 Unknown [id number] 2.16.840.1.961621.3.579.2 .593 1949 Unknown [id number] 2.16.840.1.644923.3.579.2 .593 1949 Unknown [id number] 2.16.840.1.242615.3.579.2 .593 1949 Unknown [id number] 2.16.840.1.037170.3.579.2 .593 1949 Unknown [id number] 2.16.840.1.597717.3.579.2 .593 1949 Unknown [id number] 2.16.840.1.792037.3.579.2 .593 1949 Unknown [id number] 2.16.840.1.535476.3.579.2 .593 1949 Unknown [id number] 2.16.840.1.304311.3.579.2 .593 1949 Unknown [id number] 2.16.840.1.867186.3.579.2 .593 1949 Unknown [id number] 2.16.840.1.296773.3.579.2 .593 1949 Unknown [id number] 2.16.840.1.485567.3.579.2 .173 1949 Unknown [id number] 2.16.840.1.007815.3.579.2 .173 1949 Unknown [id number] 2.16.840.1.690069.3.579.2 .173 1949 Unknown [id number] 2.16.840.1.873608.3.579.2 .173 1949 Unknown [id number] 2.16.840.1.633852.3.579.2 .173 1949 Unknown [id number] 2.16.840.1.620941.3.579.2 .173 1949 Unknown [id number] 2.16.840.1.313457.3.579.2 .173 1949 Unknown [id number] 2.16.840.1.369036.3.579.2 .173 1949 Unknown [id number] 2.16.840.1.354044.3.579.2 .173 1949 Unknown [id number] 2.16.840.1.834882.3.579.2 .173 1949 Unknown [id number] 2.16.840.1.491889.3.579.2 .196 1949 Unknown [id number] 2.16.840.1.901260.3.579.2 .196 1949 Unknown [id number] 2.16.840.1.651452.3.579.2 .196 1949 Unknown [id number] 2.16.840.1.233302.3.579.2 .196 1949 Unknown [id number] 2.16.840.1.590738.3.579.2 .196 1949 Unknown [id number] 2.16.840.1.384013.3.579.2 .196 1949 Unknown [id number] 2.16.840.1.361216.3.579.2 .196 1949 Unknown [id number] 2.16.840.1.195613.3.579.2 .1259 1949 Unknown [id number] 2.16.840.1.547771.3.579.2 .1259 1949 Unknown [id number] 2.16.840.1.523655.3.579.2 .1259 1949 Unknown [id number] 2.16.840.1.406273.3.579.2 .1259 Medicare [id number] Unknown [id number] Unknown [facility] [id number] Unknown [id number] 2.16.840.1.829748.3.579.2 .139 Unknown [id number] 2.16.840.1.378186.3.579.2 .531 Social History Date Type Detail Facility Start: 04-22-2019 End: 09-05-2023 Tobacco smoking status [facility] Former smoker [facility] End: 10-08-1996 History of tobacco use Current smoker [employer] End: 10-08-1996 History of tobacco use Cigarette Smoker [employer] Start: 04-22-2019 End: 09-13-2023 Cigarettes smoked current (pack per day) - Reported [employer] Phone: Start: 04-22-2019 End: 05-13-2024 Alcohol intake Current drinker of alcohol (finding) [employer] Phone: Start: 10-08-2013 Alcohol Comment rare [employer] Phone: Start: 1950 Sex Assigned At Not on file [employer] Phone: Start: 05-06-2023 End: 09-13-2023 Sex Assigned At [employer] Other Start: 1950 Sex Assigned At Male [facility] Start: 10-29-2013 End: 05-06-2023 Tobacco use and exposure Smokeless tobacco non-user [employer] Work Phone: Start: 07-09-2022 End: 07-19-2022 Exposure to SARS-CoV-2 (event) Not sure [employer] Start: 11-01-2022 End: 05-06-2023 Tobacco smoking status NHIS Never smoked tobacco [facility] Start: 11-01-2022 Education 10 [facility] Start: 11-01-2022 Alcohol Comment Caffeine intake: 1-2 cups per day diet soda [facility] Frequency of Communication with Friends and Family Not on file [facility] Do you belong to any clubs or organizations such as jain groups, unions, fraternal or athletic groups, or school groups? Yes [facility] Are you now , , , , never or living with a partner? [facility] Start: 02-25-2024 End: 05-19-2024 Sex Male (finding) [facility] Medical Equipment Procedure Code Equipment Code Equipment Origin al Text Equipment Identifier Dates [id number] Start: 09-06-2017 End: 08-18-2024 Roel Spnl Contour ed 5.5x150 M[address] [facility] - [id number] Start: 07-20-2022 Goals Date Patient Goal Desired Activity /State Clinical Notes 12-13-2015 to 05-07-2024 Note Date & Type Note Facility 05-07-2024 Note [place] [facility] Subjective Omer Santos is a 73 y.o. year old male patient being seen to discuss hypertension. Tameka LorriKEVAN blood added Cardura last month. Had labs 04/16/2024. states his BP has been running around 145 systolic. Patient states he feels well. Denies chest pain, SOB, palpitations, and lightheadedness/syncope. Patient Active Problem List Diagnosis Coronary artery disease involving viejas coronary artery of viejas heart without angina pectoris Status post coronary [...] spine with radiculopathy, lumbar region Wound dehiscence Hyperkalemia Hypomagnesemia Moderate persistent asthma without complication Overweight with body mass index (BMI) 25.0-29.9 Persistent microscopic hematuria Proteinuria Secondary hyperparathyroidism (CMS/HCC) Degeneration of lumbar intervertebral disc Gait instability History of arthrodesis Weakness of right lower extremity Family History Problem Relation Name Age of Onset Coronary artery disease Father Other (CABG) Father Heart attack Father Coronary artery disease Brother Heart attack Brother Other (CABG) Brother Heart attack Paternal Grandfather Social History Tobacco Use Smoking status: Former Types: Cigarettes Substance Use Topics Alcohol use: Yes Comment: occasional Drug use: Never SANDRA Gasparby Miguelito is seen in follow up. He is a 72-year-old man, who was admitted with wfo-CT-fegikoi elevation myocardial infarction in january 2018. He [...] to take Viagra. He was admitted to [facility] in 06/2020 with renal dysfunction and [...] against it and he never took it. previously he was evaluated due to tinnitus and carvedilol was changed to metoprolol. 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 Today he reports that he has been doing reasonably well. He denies chest pain and shortness of breath. He has mild leg swelling occasionally that response to the current low-dose of Lasix. His blood pressure has been significantly elevated with systolic numbers reaching 150-170 mmHg. Review of Systems HENT: Positive for (more content not included)... [facility] 02-25-2024 Evaluation note Diagnosis Onset Date Resolution Anemia of renal disease acute N ov2023 3:24pm CKD (chronic kidney disease) stage 4, GFR 15-29 ml/min acute February 25, 2024 3:24pm Anemia of renal disease acute D ecember 2023 3:18pm CKD (chronic kidney disease) stage 4, GFR 15-29 ml/min acute March 18, 2024 3:18pm Hyperkalemia acute March 3:18pm Hypertensive chronic kidney disease with stage 1 through stage 4 chronic ki acute Decem 2023 3:18pm Hypomagnesemia acute March 082023 3:18pm Persistent microscopic hematuria acute March 18, 2024 3:18pm Proteinuria acute March 3:18pm Secondary hyperparathyroidism acute March 3:18pm Type 2 diabetes mellitus with diabetic chronic kidney disease acute March 18, 2024 3:18pm Former smoker acute March 252023 10:36am Left carotid stenosis acute Mar 10:36am Anemia of renal disease acute J anuary 2024 9:58am CKD (chronic kidney disease) stage 4, GFR 15-29 ml/min acute April 23, 2024 9:58am Hyperkalemia acute April 9:58am Hypertensive chronic kidney disease with stage 1 through stage 4 chronic ki acute 2024 9:58am Hypomagnesemia acute April 232024 9:58am Persistent microscopic hematuria acute April 23, 2024 9:58am Proteinuria acute April 23, 2024 9:58am Secondary hyperparathyroidism acute April 9:58am Type 2 diabetes mellitus with diabetic chronic kidney disease acute April 23, 2024 9:58am Anemia of renal disease acute J anuary 2024 2:39pm CKD (chronic kidney disease) stage 4, GFR 15-29 ml/min acute May 04, 2024 2:39pm Hypertensive chronic kidney disease with stage 1 through stage 4 chronic ki acute 2024 2:39pm Type 2 diabetes mellitus with diabetic chronic kidney disease acute May 04, 2024 2:39pm [facility] Work Phone: 1(187) 857-481110-24-2024 Evaluation note* Diagnosis Onset Date Resolution Status Admit Date Anemia of renal disease acute O ctober 2023 9:55am CKD (chronic kidney disease) stage 4, GFR 15-29 ml/min acute January 9:55am Hyperkalemia acute January 9:55am Hypertensive chronic kidney disease with stage 1 through stage 4 chronic ki acute January 29 9:55am Hypomagnesemia acute January 292023 9:55am Persistent microscopic hematuria acu te January 30, 2024 9:55am Proteinuria acute January 30, 2024 9:55am Secondary hyperparathyroidism acute January 30, 2024 9:55am Type 2 diabetes mellitus wit h diabetic chronic kidney disease acute January 30, 2024 9:55am Anemia of renal disease acute N ovember 2023 3:24pm CKD (chronic kidney disease) stage 4, GFR 15-29 ml/min acute February 3:24pm Anemia of renal disease acute D ec2023 3:18pm CKD (chronic kidney disease) stage 4, GFR 15-29 ml/min acute March 3:18pm Hyperkalemia acute March 3:18pm Hypertensive chronic kidney disease with stage 1 through stage 4 chronic ki acute March 18, 024 3:18pm Hypomagnesemia acute March 082023 3:18pm Persistent microscopic hematuria acu te March 18, 2024 3:18pm Proteinuria acute March 3:18pm Secondary hyperparathyroidism acute March 18, 2024 3:18pm Type 2 diabetes mellitus wit h diabetic chronic kidney disease acute March 18, 2024 3:18pm Former smoker acute March 252023 10:36am Left carotid stenosis acute Mar 10:36am Anemia of renal disease acute J anuary 2024 9:58am CKD (chronic kidney disease) stage 4, GFR 15-29 ml/min acute April 9:58am Hyperkalemia acute April 9:58am Hypertensive chronic kidney disease with stage 1 through stage 4 chronic ki acute April 23 9:58am Hypomagnesemia acute April 232024 9:58am Persistent microscopic hematuria acu te April 23, 2024 9:58am Proteinuria acute April 23, 2024 9:58am Secondary hyperparathyroidism acute April 23, 2024 9:58am Type 2 diabetes mellitus wit h diabetic chronic kidney disease acute April 23, 2024 9:58am [facility] Work Phone: 1(418) 253-963709-11-2024 NoteHTN is well controlled Renal function stable for him and he F/U with nephrology Dr Rivera in [place] monthly. Continue amlodipine and metoprololUn[facility]09-11-2024 NoteLipid abnormalities are stable and well controlled Continue lipitor 40 mg daily Liver function normalUnMcCullough-Hyde [facility]09-11-2024 NoteWell controlled on metoprolol.[facility]09-11-2024 Note Continue taking ASA. No current symptoms. Denies CP, dyspnea. Remains very active without limiting symptoms Continue GDMT continue risk factor modifications- heart healthy diet, regular exercise as tolerated and continue all medications.[facility] 12-18-2023 NoteFollowing with vascular.[facility] 12-18-2023 NotePt is here for a six month follow up. Pt denies sob, dizziness, chest pain. Review of Systems HENT: Positive for hearing loss and tinnitus. Musculoskeletal: Positive for back pain. All other systems reviewed and are negative.[facility] 12-18-2023 NoteUTP CARDIOLOGY PROGRESS NOTE HPI: Omer Santos is a 73 y.o. male here for routine F/U HPI 73 yo with previous h/o CAD, Carotid stenosis, HTN, HPL, H/O get-KT-expxkal elevation myocardial infarction in january 2018. He underwent cardiac catheterization and stenting of the ramus. He has prior history of right carotid surgery in the past. Patient feels well today, no complaints of chest pain or shortness of breath. Remains very active without any limiting symptoms. Pt is here for a six month follow up. Pt denies sob, dizziness, chest pain. Review of Systems HENT: Positive for hearing loss and tinnitus. Musculoskeletal: Positive for back pain. All other systems reviewed and are negative Previous HPI per Dr Veronica Omer Santos is seen in follow up. He is a 72-year-old man, who was admitted with myi-JD-nimmppx elevation myocardial infarction in january 2018. He [...] to take Viagra. He was admitted to [facility] in 06/2020 with renal dysfunction and [...] pain or shortness of breath on exertion. Visit Vitals BP 129/60 (BP Location: Right arm, Patient Position: Sitting) Pulse 50 Ht 1.702 m (5' 7 ) Wt 78 kg (172 lb) SpO2 97% BMI 26.94 kg/m??? Smoking Status Former BSA 1.92 m??? Allergies Allergen Reactions Codeine Nausea And Vomiting Noelle Inhibitors Unknown Other reaction(s): Other (See Comments) Cough Amlodipine Unknown Gabapentin Other reaction(s): explosive diarrhea Hydrocodone-Acetaminophen Unknown Levaquin [Levofloxacin] Pregabalin Other Sulfamethoxazole-Trimethoprim Nausea And Vomiting Medications: Current Outpatient Medications on File Prior to Visit Medication Sig Dispense Refill albuterol 2.5 mg /3 mL (0.083 %) nebulizer solution Take 2.5 mg by nebulization every 6 (six) hours if needed for wheezing. amLODIPine (Norvasc) 10 mg tablet 1 (one) time each day at the same time. aspirin 81 mg chewable tablet every other day. atorvastatin (Lipitor) 40 mg tablet in the evening. cholecalciferol (Vitamin D-3) 25 MCG (1000 units) tablet Take 2 tablets by mouth in the morning. cyanocobalamin (Vitamin B-12) 500 mcg tablet Take 1 tablet by mouth in the morning. doxycycline (Vibra-Tabs) 100 mg tablet Take 50 mg by mouth if needed. Take with at least 8 ounces (large glass) of water, do not lie down for 30 minutes after ferrous sulfate 325 (65 Fe) MG tablet in the morning and at bedtime. furosemide (Lasix) 20 mg tablet Take 1 tablet (20 mg) by mouth every other day. (Patient taking differently: Take 20 mg by mouth every other day. Takes half a tablet) glipiZIDE (Glucotrol) 5 mg tablet Take 5 mg by mouth. magnesium oxide (Mag-Ox) 400 mg (241.3 mg magnesium) tablet Take 1 tablet by mouth in the morning. metoprolol succinate XL (Toprol-XL) 50 mg 24 hr tablet Take 1 tablet (50 mg) by mouth in the morning. Do not crush or chew. 30 tablet 11 multivitamin tablet,chewable Chew 1 tablet in the morning. nitroglycerin (Nitrostat) 0.[address] 0.4 mg under the tongue. No current facility-administered medications on file prior to visit. Physical Exam: Constitutional: Appearance: Normal appearance. Without apparent distress HENT: Head: Normocephalic and atraumatic. Nose: Nose normal. Mouth/Throat: Mouth: Mucous membranes are moist. Eyes: Extraocular Movements: Extraocular movements intact. Conjunctiva/sclera: Conjunctivae normal. Neck: Vascular: No JVD. Cardiovascular: Rate and Rhythm: Normal rate and regular rhythm. Pulses: Radial pulses are 3+ b/l. Heart sounds: Normal heart sounds, S1 normal (more content not included)... [facility]08-22-2024 Evaluation note* Diagnosis Onset Date Resolution Status Admit Date Anemia of renal disease acute A ugust 2023 10:18am CKD (chronic kidney disease) stage 4, GFR 15-29 ml/min acute November 28, 2023 10:18am Hyperkalemia acute November 28, 2023 10:18am Hypertensive chronic kidney disease with stage 1 through stage 4 chronic ki acute November 28, 2023 10:18am Hypomagnesemia acute November 10:18am Persistent microscopic hematuria acu te November 28, 2023 10:18am Proteinuria acute November 28, 2023 10:18am Secondary hyperparathyroidism acute November 28, 2023 10:18am Type 2 diabetes mellitus wit h diabetic chronic kidney disease acute November 28, 2023 10:18am Anemia of renal disease acute S eptember 2023 11:33am CKD (chronic kidney disease) stage 4, GFR 15-29 ml/min acute Septem javan 2023 11:33am Anemia of renal disease acute O ctober 2023 9:55am CKD (chronic kidney disease) stage 4, GFR 15-29 ml/min acute Octobe r 2023 9:55am Hyperkalemia acute January 9:55am Hypertensive chronic kidney disease with stage 1 through stage 4 chronic ki acute January 30, 2024 9:55am Hypomagnesemia acute January 292023 9:55am Persistent microscopic hematuria acu te January 30, 2024 9:55am Proteinuria acute January 30, 2024 9:55am Secondary hyperparathyroidism acute January 30, 2024 9:55am Type 2 diabetes mellitus wit h diabetic chronic kidney disease acute January 30, 2024 9:55am Anemia of renal disease acute N ovember 2023 3:24pm CKD (chronic kidney disease) stage 4, GFR 15-29 ml/min acute Novemb er 2023 3:24pm [facility] Work Phone: 1(905) 779-735803-18-2024 NoteUT Cardiology - [facility] Subjective Omer Santos is a [...] Problem List Diagnosis Coronary artery disease involving viejas coronary artery of viejas heart without angina pectoris Status post coronary [...] a 72-year-old man, who was admitted with rvr-XZ-hiapvzo elevation myocardial infarction in january 2018. He [...] to take Viagra. He was admitted to [facility] in 06/2020 with renal dysfunction and [...] Nose normal. Eyes: General: (more content not included)...[facility] 05-07-2023 Evaluation note* Encounter Date Diagnosis Assessment Notes Treatment Notes Treatment Clinical Notes Apr, CKD (chronic kidney disease) stage [...] and verbalized information. Apr, Anemia of renal dise ase (ICD-10 - D63.1) Hemoglobin is within the goal but has adequate iron stores. Change Procrit 20,000 unit every 4-5 weeks. 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 He appears to be euvolemic. Continue Lasix 40 mg daily. Continue current dose of the carvedilol and amlodipine. Apr, Diabetes mellitus wi th chronic kidney [...] know if he changes mind. Apr, Hypomagnesemia (ICD- 10 - E83.42) He had hypomagnesemia possibly due to the renal magnesium wasting. Continue oral magnesium [facility] Other 01-29-2024 History of Present illness Narrative* [...] mass index (BMI) 25.0-29.9 documented in this encounterRipley County Memorial [id number] History of Present illness Narrative* Ruben Luo [...] 0.70 - 1.30 mg/dL Final [facility] EGFR-AF [place] 03/23/2023 30 (L) >=60 Final [facility] EGFR-NON AF [place] 03/23/2023 25 (L) >=60 Final BUN CREATININE [...] Ref Rng 07/12/2022 PROTEIN URINE <=12.0 901.3 (HH) URINE CREAT 20.00 - 300.00 124.19 UR PROT CREAT RAT 7.26 Chronic problem with slow progression. Continue to hydrate, exercise, maintain good blood pressure and good blood sugar control. Type 2 diabetes mellitus with stage 4 chronic kidney disease, without long-term current use of insulin ([facility]) - glipiZIDE (Glucotrol) 5 MG tablet; Take [...] and reviewed with the patient. [facility] https://www.ncbi.nlm.nih.gov/pmc/articles/NXJ4335802/. 2014; 13: 74. Published online 2014Jul 13. https://www.ncbi.nlm.nih.gov/pubmed/19127867 The rising tide of polypharmacy and drug-drug interactions: population database analysis 9191-5234 https://www.ncbi.nlm.nih.gov/pmc/articles/TKI9256942/. 5. Gene K, Vita SW, Urszula M, [...] his balance. He is looking forward to golTerraEchosg the spring. I also updated his physician of record data in the electronic health record. documented in this encounterRipley County Memorial [id number] Evaluation note* Encounter Date Diagnosis Assessment Notes [...] the renal magnesium wasting. Continue oral magnesium [facility] Other 12-13-2023 Evaluation note* Encounter Date Diagnosis [...] Mar, S/P carotid endarterectomy (ICD-10 - Z98.890) [facility] Other 11-20-2023 Evaluation note* Encounter Date Diagnosis Assessment Notes Treatment Notes Treatment Clinical Notes Feb, Anemia of renal disease (ICD-10 - D63.1) Feb, CKD (chronic kidney disease) stage 4, GFR 15-29 ml/min (ICD-10 - N18.4) [facility] Other 11-06-2023 Evaluation note* Encounter Date Diagnosis Assessment Notes Treatment Notes Treatment Clinical Notes Feb, Anemia of renal disease (ICD-10 - D63.1) [facility] Other 10-30-2023 NoteDischarge Summary Date of Admission: [...] of their radicular symptoms and gait instability. MICIK drain output remained somewhat high and thus [...] by Gabe Harris MD, Jr 02/04/23 05:55 [facility] 02-01-2023 NoteC-spine radiographs on 02/01/2023 Clinical History: [...] Is Signed, Electronically Signed in Other Vendor System)Henry County HospitalComment on above:Order Comment: [id number] sent for at 0632hrs 02-01-2023 NoteDATE OF [...] 3. C3 through C6 anterior cervical plate, [place] with 16-mm fixed angle and variable screws, Stry[employer]instrumentation SURGEON: Gabe Harris M.D. RADIOCOMMUNICATIONS TECHNICIAN: Lizette Osorio PA-C. Lizette Osorio PA-C, assisted [...] permanent speech and swallowing disturbances, DVT/PE, stroke, RI, etc. All questions were answered and informed [...] going back to th (more content not included)...[facility] Evaluation [facility]* Encounter Date Diagnosis Assessment [...] the renal magnesium wasting. Continue oral magnesium [facility] Other 10-12-2023 Evaluation note* Encounter Date Diagnosis [...] the renal magnesium wasting. Continue oral magnesium [facility] Other 08-31-2023 Evaluation note* Encounter Date Diagnosis [...] the renal magnesium wasting. Continue oral magnesium [facility] Other 08-10-2023 Evaluation note* Encounter Date Diagnosis [...] the renal magnesium wasting. Continue oral magnesium [facility] Other 07-20-2023 Evaluation note* Encounter Date Diagnosis [...] the renal magnesium wasting. Continue oral magnesium [facility] Other 06-05-2023 Evaluation note* Encounter Date Diagnosis [...] the renal magnesium wasting. Continue oral magnesium [facility] Other 05-09-2023 Evaluation note* Encounter Date Diagnosis [...] continue same supplement improve we will supplement [facility] Other [id number] NotePROCEDURE: DUP LOWER EXTREMITY VENOUS BILATERAL CLINICAL [...] report electronically signed by Dr. Jose R iBanchi on 07/26/2022 6:35 PM Interpreted by: Jose R Bianchi MD Signed by: Jose R Bianchi MD 07/26/22 Final resultSTexas Health Kaufman04-20-2023 NotePROCEDURE: DUP LOWER EXTREMITY VENOUS BILATERAL CLINICAL [...] normal color flow, augmentation and phasic response. [facility] [id number] History of Present illness Narrative* Megan Meza - 07/26/2022 4:37 PM EDT Hubert as he likes to be called is to a Hoahaoism . She and he appreciate prayer and [...] For: Patient and family together Referral/Consult From: [employer] Spouse Last Encounter 07/26/22 Complexity of [...] PM VL DUP LOWER EXTREMITY VENOUS BILATERAL [[id number]] Resulted: 07/23/22 171 Updated: 07/23/221720 Narrative: FINDINGS: There is normal color flow, spectral analysis and compressibility of the common femoral vein, superficial femoral vein and popliteal vein bilaterally . There is normal color flow and compressibility in the posterior tibial veins, anterior tibial veinsand peroneal veins. Impression: No evidence of a DVT. CT HEAD WO CONTRAST [[id number]] Resulted: 07/23/22 132 Updated: 07/23/221325 Narrative: There is no hemorrhage. There are [...] DIANN Leblanc - 07/26/2022 8:38 AM EDT [facility] OCCUPATIONAL THERAPY MISSED TREATMENT NOTE [facility] MED 5K 5K-26/026-A Date: 07/26/2022 Patient Name: Omer Santos CSN: [id number] : 1950 (72 y.o.) Gender: male Referring [...] Labs 07/23/22 0741 07/24/22 0436 07/24/22 1444 07/25/22438 NA 141 137 -- 135 K 4.8 [...] PM VL DUP LOWER EXTREMITY VENOUS BILATERAL [[id number]] Resulted: 07/23/22 171 Updated: 07/23/221720 Narrative: FINDINGS: There is normal color flow, spectral analysis and compressibility of the common femoral vein, superficial femoral vein and popliteal vein bilaterally . There is normal color flow and compressibility in the posterior tibial veins, anterior tibial veinsand peroneal veins. Impression: No evidence of a DVT. CT HEAD WO CONTRAST [[id number]] Resulted: 07/23/22 132 Updated: 07/23/221325 Narrative: There is no hemorrhage. There are [...] Progress Note PATIENT: OMER SANTOS CSN #: [id number] : 1950 ADMIT DATE: 07/19/2022 9:24 AM [...] you! Greg Merino, LÁZARON,RN, CRCR RN Clinical Bomb Squad Commander Options provided: -- Drug-induced encephalopathy -- Toxic [...] Acuna MD 07/25/2022 1:19 PM * Carlita Diana Jaleel, PT - 07/25/2022 10:37 AM EDT [facility] INPATIENT PHYSICAL THERAPY DAILY NOTE [facility] 5K - 5K-26/026-A Time In: [...] Ambulation Assistance: Independent Transfer Assistance: Independent Active Airplane Rigger: Yes Additional Comments: Information provided by due [...] steps without HR CGA for home entry. Halfway Goals Time Frame for Halfway Goals : NA due to short length of stay. Following session, patient left in safe position with all fall risk precautions in place. * Disha Borrego STOCK PATCHER - 07/25/2022 9:58 AM EDT [facility] OCCUPATIONAL THERAPY MISSED TREATMENT NOTE [facility] ONC MED 5K 5K-26/026-A Date: 07/25/2022 Patient Name: Omer Santos CSN: [id number] : 1950 (72 y.o.) Gender: male Referring [...] was todayand hopeful to improve. * Carlita Marmoljeo, PT - 07/24/2022 2:59 PM EDT [facility] INPATIENT PHYSICAL THERAPY DAILY NOTE [facility] MED 5K - 5K-26/026-A Time In: [...] Ambulation Assistance: Independent Transfer Assistance: Independent Active Airplane Rigger: Yes Additional Comments: Information provided by due [...] steps without HR CGA for home entry. Halfway Goals Time Frame for Size Marker Goals : NA due to short length of stay. Following session, patient left in safe position with all fall risk precautions in place. * Tracy Cintron, STOCK PATCHER - 07/24/2022 10:36 AM EDT [facility] ONC MED 5K Occupational Therapy Daily Note Time: Time In: 956 Time Out: 1036 Timed Code Treatment Minutes: 39 Minutes Minutes: 39 Date: 07/24/2022 Patient Name: Omer Santos, Gender: male Room: [facility]26/026-A : 1950 (72 y.o.) Referring Practitioner: Sharon [...] Prior L2-S1 decompression by Dr Shanks in [place] in 2011. Patient is a nonsmoker. H/o [...] of treatment: Fair treatment tolerance Discharge Recommendations: Subacute/assisted facility, 24 hour assistance or supervision, and [...] SubCUTAneous Nightly carvedilol 12.5 mg Oral BID Continuous Infusions: sodium chloride 50 mL/hr at [...] PM VL DUP LOWER EXTREMITY VENOUS BILATERAL [[id number]] Resulted: 07/23/22 1719 Updated: 07/23/22 172 Narrative: FINDINGS: There is normal color flow, spectral analysis and compressibility of the common femoral vein, superficial femoral vein and popliteal vein bilaterally . There is normal color flow and compressibility in the posterior tibial veins, anterior tibial veinsand peroneal veins. Impression: No evidence of a DVT. CT HEAD WO CONTRAST [[id number]] Resulted: 07/23/22 1323 Updated: 07/23/22 1326 Narrative: [...] Am labs. Kylie Acuna MD, MD * ALKA Clark-Sánchez - 07/24/2022 6:42 AM EDT Department of [...] SubCUTAneous Nightly carvedilol 12.5 mg Oral BID Continuous Infusions: sodium chloride sodium chloride dextrose [...] PM VL DUP LOWER EXTREMITY VENOUS BILATERAL [[id number]] Resulted: 07/23/22 1719 Updated: 07/23/22 1721 Narrative: FINDINGS: There is normal color flow, spectral analysis and compressibility of the common femoral vein, superficial femoral vein and popliteal vein bilaterally . There is normal color flow and compressibility in the posterior tibial veins, anterior tibial veinsand peroneal veins. Impression: No evidence of a DVT. CT HEAD WO CONTRAST [[id number]] Resulted: 07/23/22 1323 Updated: 07/23/22 1326 Narrative: [...] Preciado OT - 07/23/2022 2:18 PM EDT [facility] INPATIENT OCCUPATIONAL THERAPY STRZ ONC MED 5K [...] Prior L2-S1 decompression by Dr Shanks in [place] in 2011. Patient is a nonsmoker. 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 VISION:WFL HEARING: WFL COGNITION: Decreased Recall, Decreased Insight, Decreased Safety Awareness, Impaired Attention, Difficulty Following Commands, Impulsive, and argumentative with encouragement, restless RANGE OF MOTION: Bilateral Upper Extremity: WFL STRENGTH: Bilateral Upper Extremity: elbow flex 4/5 ext 4-/5 box order person (F-) SENSATION: WFL ADL: No ADL's completed [...] would benefit from continued therapy after discharge, Subacute/Group Home Facility, Halfway Care with OT, 24 hour supervision or [...] Pt is a 72y.o. male, in . Interpretive Naturalist was called to room due to a Rapid Response-Stroke Related alert; pt Caridad was also in the room. Interpretive Naturalist provided brief prayer for Hubert prior to going toCT, presence, prayer and griefcare for Caridad as she waited for him to return. Caridad shared several personal/familial losses experienced between she and Hubert over the past few years, and has led tobeing sophia while in a hospital setting-causing extra layer of stress and worry for them. Interpretive Naturalist prayed for Caridad as well as she mauro with all this-met with gratitude by Caridad. 07/23/22 1410 Encounter Summary Encounter Overview/Reason Crisis Service Provided For: Patient and family together Referral/Consult From: Nursing Sand Molder/Assistant Site Manager System Spouse Last Encounter 07/23/22 Complexity of Encounter High Begin Time 1245 End Time 1327 Total Time Calculated 42 min Crisis Type Rapid Response Assessment/Intervention/Outcome Assessment Compromised coping;Concerns with suffering;Impaired resilience;Impaired social interaction;Shock;Tearful Intervention Active listening;Sustaining Presence/Ministry of presence;Prayer (assurance of)/[place];Nurtured Hope;Explored/Affirmed feelings, thoughts, concerns;Discussed illness injury and it s impact;Discussed relationship with God Outcome Receptive;Expressed Gratitude;Expressed feelings, needs, and concerns;Engaged in conversation;Coping * [facility] - 07/23/2022 2:05 PM EDT Code Stroke [...] Marmolejo, PT - 07/23/2022 10:36 AM EDT [facility] INPATIENT PHYSICAL THERAPY EVALUATION [facility] 5K - 5K-26/026-A Time In: [...] Ambulation Assistance: Independent Transfer Assistance: Independent Active Airplane Rigger: Yes 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 Functional Outcome Measures: Completed AM-[facility] Inpatient Mobility without Stair Climbing Raw Score : 6 AM-[facility] Inpatient without Stair Climbing T-Scale Score [...] Term Goal 2: PT to assess mobility. Size Marker Goals Time Frame for Size Marker Goals : NA due to short length [...] in place, pt bp soft, medicated per water tender, o2 sats low, pt unresponsive post anesthesia 1525 - pt still unresponsive post anesthesia, water tender at bedside 1540 - pt still unresponsive, [...] this time 1727 - pt transported to [facility] in stable condition * Darcy [...] Temp: 97.[address] M[facility] MEDICAL CENTERBookingNest Work Phone: 1(134) 301-619104-19-2023 NotePROCEDURE: XR LUMBAR SPINE (2-3 VIEWS) CLINICAL [...] by: Lalo Polanco DO 07/25/22 Final resultSaint [facility] Hospital04-19-2023 NotePROCEDURE: XR LUMBAR SPINE (2-3 VIEWS) [...] lumbar spine, stable compared to prior exam. [facility] [id number] NotePROCEDURE: VL DUP LOWER EXTREMITY VENOUS BILATERAL [...] by: Héctor Mcdonnell MD 07/23/22 Final resultSaint Power County Hospital04-17-2023 NotePROCEDURE: VL DUP LOWER EXTREMITY VENOUS [...] tibial veins, anterior tibial veinsand peroneal veins. [facility] [id number] NotePROCEDURE: CT HEAD WO CONTRAST CLINICAL INFORMATION: [...] by: Gissel Escobedo MD 07/23/22 Final resultSaint Power County Hospital04-17-2023 NotePROCEDURE: CT HEAD WO CONTRAST CLINICAL [...] sinuses. There is no suspicious calvarial abnormality. [facility] [id number] NotePROCEDURE: XR LUMBAR SPINE 1 VW CLINICAL INFORMATION: surgery . TECHNIQUE: Crosstable lateral portable done in the OR COMPARISON: No prior study. FINDINGS: Certified Medical Technician Assistant localizer overlies the pedicle of L2. IMPRESSION: Localizer at L2. This report has been created using voice recognition software. It may contain minor errors which are inherent in voice recognition technology. Final report electronically signed by Dr. Simba Castle on 07/20/2022 12:20 PM Interpreted by: Simba Castle MD Signed by: Simba Castle MD 07/20/22 Final resultSTexas Health Kaufman04-14-2023 NotePROCEDURE: XR LUMBAR SPINE 1 VW CLINICAL INFORMATION: surgery . TECHNIQUE: Crosstable lateral portable done in the OR COMPARISON: No prior study. FINDINGS: Certified Medical Technician Assistant localizer overlies the pedicle of L2. [facility] [id number] Evaluation note* Encounter Date Diagnosis Assessment Notes [...] to the risk of a cardiac arrhythmias. [facility] Other 03-16-2023 Evaluation note* Encounter Date Diagnosis [...] let me know if he changes mind. [facility] Other 02-02-2023 Evaluation note* Encounter Date Diagnosis Assessment Notes Treatment Notes Treatment Clinical Notes May, Anemia of renal disease (ICD-10 - D63.1) May, Chronic kidney disease, stage 3b (ICD-10 - N18.32) [facility] Other 01-30-2023 Evaluation note* Encounter Date Diagnosis [...] start Procrit 20,000 unit every 4 weeks. 30 Dung, 2023 Hyperkalemia (ICD-10 - E87.5) Advised to continue [...] let me know if he changes mind. [facility] Other 01-09-2023 [facility]* Encounter Date Diagnosis Assessment Notes Treatment Notes Treatment Clinical Notes Jan, History of colon polyps (ICD-10 - Z86.010) [facility] Other 09-08-2022 Evaluation note* Encounter Date Diagnosis [...] let me know if he changes mind. [facility] Other 06-16-2022 Evaluation note* Encounter Date Diagnosis [...] these d differential diagnoses. Continue home losartan. [facility] Other 05-09-2022 Evaluation note* Encounter Date Diagnosis [...] We will check PTH and vitamin D. [facility] Other 05-05-2022 Evaluation note* Encounter Date Diagnosis [...] for several more years in my opinion. [facility] Other 09-06-2016 Evaluation note* Encounter Date Diagnosis [...] meantime with any issues or concerns whatsoever. [facility] Other Evaluation note* Diagnosis Enlarged prostate Hypertrophy of prostate without urinary obstruction and other lower urinary tract symptoms (LUTS) BPH with obstruction/lower urinary tract symptoms Hypertrophy of prostate with urinary obstruction and other lower urinary tract symptoms (LUTS) Abnormal digital rectal exam Other abnormal clinical finding Erectile dysfunction, unspecified erectile dysfunction type documented in this encounter [employer] Work Phone: evaluation noteNo assessment information available [facility] Work Phone: Evaluation note* Diagnosis Spondylosis of lumbosacral region without myelopathy or radiculopathy Lumbosacral spondylosis without myelopathy Lumbar spondylosis Lumbosacral spondylosis without myelopathy Postlaminectomy syndrome, lumbar Postlaminectomy syndrome, lumbar region Spinal stenosis of lumbar region with neurogenic claudication Spinal stenosis, lumbar region, with neurogenic claudication documented in this encounter [employer] Phone: [email or web address] note* Diagnosis Osteopenia of lumbar spine documented in this encounter [employer] Phone: [email or web address] note* Diagnosis Spinal stenosis, lumbar region, without neurogenic claudication Right foot drop Other acquired deformity of ankle and foot documented in this encounter [employer] Phone: [email or web address] noteNo [facility] Other Evaluation note* Diagnosis Examination for normal comparison for clinical research Examination of participant in clinical trial Lumbar spondylosis Lumbosacral spondylosis without myelopathy Spinal stenosis, unspecified spinal region Spondylolisthesis, unspecified spinal region documented in this encounter [employer] Phone: [email or web address] note* Diagnosis Lumbar spondylosis- Primary Lumbosacral spondylosis without myelopathy Lumbar stenosis with neurogenic claudication Spinal stenosis, lumbar region, with neurogenic claudication Lumbar stenosis with neurogenic claudication Spinal stenosis, lumbar region, with neurogenic claudication Primary hypertension Unspecified essential hypertension Type 2 diabetes mellitus with kidney complication, without long-term current use of insulin ([facility]) Anemia due to chronic kidney disease Acute posthemorrhagic anemia documented in this encounter [employer] Phone: [email or web address] note* Diagnosis Stage 4 chronic kidney disease [...] Coronary atherosclerosis of unspecified type of vessel, viejas or graft documented in this encounter [facility] HealthcareEvaluation note* Diagnosis Injury of right [...] and foot joint documented in this encounter [facility] HealthcareEvaluation note* Diagnosis Onset Date Resolution Status Anemia of renal disease acut e CKD (chronic kidney disease) stage 4, GFR 15-29 ml/min acute Hyperkalemia acute [id number] acute Hypomagnesemia acute Persistent microscopic hematuria acute Proteinuria acute Secondary hyperparathyroidism acute Type 2 diabetes mellitus wit h diabetic chronic kidney disease acute Anemia of renal disease acut e CKD (chronic kidney disease) stage 4, GFR 15-29 ml/min acute [id number] acute Type 2 diabetes mellitus wit h diabetic chronic kidney disease [facility] Work Phone: Evaluation note* Diagnosis Onset Date Resolution Status Anemia of renal disease acut e CKD (chronic kidney disease) stage 4, GFR 15-29 ml/min acute Hyperkalemia acute [id number] acute Hypomagnesemia acute Persistent microscopic hematuria acute Proteinuria acute Secondary hyperparathyroidism acute Type 2 diabetes mellitus wit h diabetic chronic kidney disease acute Anemia of renal disease acut e CKD (chronic kidney disease) stage 4, GFR 15-29 ml/min acute [id number] acute Type 2 diabetes mellitus wit h diabetic chronic kidney disease acute Anemia of renal disease acut e CKD (chronic kidney disease) stage 4, GFR 15-29 ml/min acute Hyperkalemia acute [id number] acute Hypomagnesemia acute Persistent microscopic hematuria acute Proteinuria acute Secondary hyperparathyroidism acute Type 2 diabetes mellitus wit h diabetic chronic kidney disease [facility] Work Phone: Evaluation note* Diagnosis Onset Date Resolution Status Anemia of renal disease acut e CKD (chronic kidney disease) stage 4, GFR 15-29 ml/min acute [id number] acute Type 2 diabetes mellitus wit h diabetic chronic kidney disease acute Anemia of renal disease acut e CKD (chronic kidney disease) stage 4, GFR 15-29 ml/min acute Hyperkalemia acute [id number] acute Hypomagnesemia acute Persistent microscopic hematuria acute Proteinuria acute Secondary hyperparathyroidism acute Type 2 diabetes mellitus wit h diabetic chronic kidney disease acute Anemia of renal disease acut e CKD (chronic kidney disease) stage 4, GFR 15-29 ml/min acute [id number] acute Hypomagnesemia acute Persistent microscopic hematuria acute Proteinuria acute Secondary hyperparathyroidism acute Type 2 diabetes mellitus wit h diabetic chronic kidney disease acute Anemia of renal disease acut e CKD (chronic kidney disease) stage 4, GFR 15-29 ml/min acute Secondary hyperparathyroidism acute [facility] Work Phone: Evaluation note* Diagnosis Onset Date Resolution Status Anemia of renal disease acut e CKD (chronic kidney disease) stage 4, GFR 15-29 ml/min acute Hyperkalemia acute [id number] acute Hypomagnesemia acute Persistent microscopic hematuria acute Proteinuria acute Secondary hyperparathyroidism acute Type 2 diabetes mellitus wit h diabetic chronic kidney disease acute Anemia of renal disease acut e CKD (chronic kidney disease) stage 4, GFR 15-29 ml/min acute [id number] acute Hypomagnesemia acute Persistent microscopic hematuria acute Proteinuria acute Secondary hyperparathyroidism acute Type 2 diabetes mellitus wit h diabetic chronic kidney disease acute Anemia of renal disease acut e CKD (chronic kidney disease) stage 4, GFR 15-29 ml/min acute Secondary hyperparathyroidism acute [facility] Work Phone: Evaluation note* Diagnosis Onset Date Resolution Status Anemia of renal disease acut e CKD (chronic kidney disease) stage 4, GFR 15-29 ml/min acute [id number] acute Hypomagnesemia acute Persistent microscopic hematuria acute Proteinuria acute Secondary hyperparathyroidism acute Type 2 diabetes mellitus wit h diabetic chronic kidney disease acute Anemia of renal disease acut e CKD (chronic kidney disease) stage 4, GFR 15-29 ml/min acute Secondary hyperparathyroidism acute Anemia of renal disease acut e CKD (chronic kidney disease) stage 4, GFR 15-29 ml/min acute Hyperkalemia acute [id number] acute Hypomagnesemia acute Persistent microscopic hematuria acute Proteinuria acute Secondary hyperparathyroidism acute Type 2 diabetes mellitus wit h diabetic chronic kidney disease acute [facility] Work Phone: Evaluation note* Diagnosis Onset Date Resolution Status Anemia of renal disease acut e CKD (chronic kidney disease) stage 4, GFR 15-29 ml/min acute Hyperkalemia acute [id number] acute Hypomagnesemia acute Persistent microscopic hematuria acute Proteinuria acute Secondary hyperparathyroidism acute Type 2 diabetes mellitus wit h diabetic chronic kidney disease acute [facility] Work Phone: Evaluation note* Diagnosis Onset Date Resolution Status Anemia of renal disease acut e CKD (chronic kidney disease) stage 4, GFR 15-29 ml/min acute Hyperkalemia acute [id number] acute Hypomagnesemia acute Persistent microscopic hematuria acute Proteinuria acute Secondary hyperparathyroidism acute Type 2 diabetes mellitus wit h diabetic chronic kidney disease acute Anemia of renal disease acut e CKD (chronic kidney disease) stage 4, GFR 15-29 ml/min acute Anemia of renal disease acut e CKD (chronic kidney disease) stage 4, GFR 15-29 ml/min acute Hyperkalemia acute [id number] acute Type 2 diabetes mellitus wit h diabetic chronic kidney disease acute [facility] Work Phone: Evaluation note* Diagnosis Hyperlipidemia associated with type 2 diabetes mellitus (CMS/HCC) documented in this encounter [facility] Author Orlando Beaver [facility] April 16, 2022 9:33am Note Date/Time April 16, 2022 9: 33am [facility] [address] [place] [address] Gastroenterology H&P Signed Patient: Omer Santos MR#: [id number] : 1950 Acct:[id number] Age/Sex: 71 / M Adm Date: 3 Loc: Room: Type: [facility] Attending Dr: Orlando Beaver MD Copies [...] <Electronically signed by Orlando Beaver MD> 04/16/22932 [facility] Work Phone: History general Narrative [...] History [facility] Cardiac Issues 2017 [employer] Other history general Narrative - Reported* Type [...] History [facility] Cardiac Issues 2017 [employer] Other history general Narrative - Reported* Type [...] History [facility] Cardiac Issues 2017 [employer] Other Hospital Discharge instructions Additional Instructions DISCHARGE [...] -Follow up with PCP. - Office number [phone].[facility] Work Phone: Summary Purpose Family History No Family History Records Found Relationship Condition Age at Onset Recorded Date/T juan sister Malignant neoplasm of breast Unknown daughter Malignant neoplasm of ovary Unknown Relationship Condition Age at Onset Recorded Date/T juan sister Malignant neoplasm of breast Unknown daughter Malignant neoplasm of ovary Unknown brother Hypertension Unknown Heart disease Unknown daughter Malignant neoplasm Unknown father Unknown Hypertension Unknown family member Unknown family member Malignant neoplasm Unknown Not Specified Hypertension Unknown Unknown sibling Malignant neoplasm Unknown sister Diabetes mellitus Unknown Malignant neoplasm Unknown Relationship Condition Age at Onset Recorded Date/T juan sister Malignant neoplasm of breast Unknown daughter Malignant neoplasm of ovary Unknown brother Hypertension Unknown Heart disease Unknown daughter Malignant neoplasm Unknown father Unknown Hypertension Unknown family member Unknown family member Malignant neoplasm Unknown mother Hypertension Unknown Unknown sibling Malignant neoplasm Unknown sister Diabetes mellitus Unknown Malignant neoplasm Unknown Advance Directives No Advanced Directives Records FoundDocuments on File Type Date Recorded Patient Dental Director Expl anation Advance Directives and Living Will Power of Staffing And Scheduling Coordinator Advance Directive Response Recorded Date/ Time Advance Directives No May 13, 2017 1:30pm Documents on File Type Date Recorded Patient Dental Director Expl anation ACP-Advance Directive 07/24/2022 8:33 AM Latest Code Status on File Code Status Date Activated Date Inactivated Comments Full Code 07/19/2022 11:45 AM Advance Directive Response Recorded Date/ Time Advance Directives No May 13, 2017 2:30pm Hospital Course Note MR#: [id number] 2 [facility] Pt. Name: Omer Santos Admitted: 01/17/2018 [...] a 67-year-old male, who presented initially to [facility] complaining of chest pain, stating that around 5 p.m. yesterday, he woke from a nap, experiencing pain radiating to his jaw and then on the left side of his chest. The patient reports that when he was trying to walk up some stairs, it exacerbated his pain and persisted for about an hour. Initial workup at [facility] was negative and r (more content not included)... Chief Complaint and Reason for Visit Chief Complaint Hx of Colon Polyps Chief Complaint Hx of Colon Polyps Hx of Colon Polyps Chief Complaint i65.23 Chief Complaint Renal 3 Wk Inj / Pro crit / Nurse Renal 3 Wk Inj / Procrit / Dr RENAL 1 MONTH F/U / PROCRIT / DR RENAL 1 MONTH INJ / RETACRIT / NURSE Reason for Visit Anemia of renal dise [facility] CKD (chronic kidney disease) stage 4, GFR 15-29 ml/min Hyperkalemia [id number] Hypomagnesemia Persistent microscopic hematuria Proteinuria Secondary hyperparathyroidism Type 2 diabetes mellitus with diabetic chronic kidney disease Anemia of renal disease CKD (chronic kidney disease) stage 4, GFR 15-29 ml/min [id number] Type 2 diabetes mellitus with diabetic chronic kidney disease Chief Complaint Weakness of right lo wer extremity, History of arth Chief Complaint RENAL 1 MONTH F/U / PROCRIT / DR RENAL 1 MONTH INJ / RETACRIT / NURSE 4 WK INJ / PROCRIT / DR Reason for Visit Anemia of renal dise [facility] CKD (chronic kidney disease) stage 4, GFR 15-29 ml/min Hyperkalemia [id number] Hypomagnesemia Persistent microscopic hematuria Proteinuria Secondary hyperparathyroidism Type 2 diabetes mellitus with diabetic chronic kidney disease Anemia of renal disease CKD (chronic kidney disease) stage 4, GFR 15-29 ml/min [id number] Type 2 diabetes mellitus with diabetic chronic kidney disease Anemia of renal disease CKD (chronic kidney disease) stage 4, GFR 15-29 ml/min Hyperkalemia [id number] Hypomagnesemia Persistent microscopic hematuria Proteinuria Secondary hyperparathyroidism Type 2 diabetes mellitus with diabetic chronic kidney disease Chief Complaint RENAL 1 MONTH F/U / PROCRIT / DR RENAL 1 MONTH INJ / RETACRIT / NURSE 4 WK INJ / PROCRIT / DR RENAL 4 WK INJ PROCRIT / DR Reason for Visit Anemia of renal dise [facility] CKD (chronic kidney disease) stage 4, GFR 15-29 ml/min Hyperkalemia [id number] Hypomagnesemia Persistent microscopic hematuria Proteinuria Secondary hyperparathyroidism Type 2 diabetes mellitus with diabetic chronic kidney disease Anemia of renal disease CKD (chronic kidney disease) stage 4, GFR 15-29 ml/min [id number] Type 2 diabetes mellitus with diabetic chronic kidney disease Anemia of renal disease CKD (chronic kidney disease) stage 4, GFR 15-29 ml/min Hyperkalemia [id number] Hypomagnesemia Persistent microscopic hematuria Proteinuria Secondary hyperparathyroidism Type 2 diabetes mellitus with diabetic chronic kidney disease Chief Complaint RENAL 1 MONTH INJ / RETACRIT / NURSE 4 WK INJ / PROCRIT / DR RENAL 4 WK INJ PROCRIT / DR RENAL 3 WK INJ / PROCRIT / NURSE Reason for Visit Anemia of renal dise [facility] CKD (chronic kidney disease) stage 4, GFR 15-29 ml/min [id number] Type 2 diabetes mellitus with diabetic chronic kidney disease Anemia of renal disease CKD (chronic kidney disease) stage 4, GFR 15-29 ml/min Hyperkalemia [id number] Hypomagnesemia Persistent microscopic hematuria Proteinuria Secondary hyperparathyroidism Type 2 diabetes mellitus with diabetic chronic kidney disease Anemia of renal disease CKD (chronic kidney disease) stage 4, GFR 15-29 ml/min [id number] Hypomagnesemia Persistent microscopic hematuria Proteinuria Secondary hyperparathyroidism Type 2 diabetes mellitus with diabetic chronic kidney disease Anemia of renal disease CKD (chronic kidney disease) stage 4, GFR 15-29 ml/min Secondary hyperparathyroidism Chief Complaint 4 WK INJ / PROCRIT / DR RENAL 4 WK INJ PROCRIT / DR RENAL 3 WK INJ / PROCRIT / NURSE RENAL 1 MONTH INJ / PROCRIT / nurse Reason for Visit Anemia of renal dise [facility] CKD (chronic kidney disease) stage 4, GFR 15-29 ml/min Hyperkalemia [id number] Hypomagnesemia Persistent microscopic hematuria Proteinuria Secondary hyperparathyroidism Type 2 diabetes mellitus with diabetic chronic kidney disease Anemia of renal disease CKD (chronic kidney disease) stage 4, GFR 15-29 ml/min [id number] Hypomagnesemia Persistent microscopic hematuria Proteinuria Secondary hyperparathyroidism Type 2 diabetes mellitus with diabetic chronic kidney disease Anemia of renal disease CKD (chronic kidney disease) stage 4, GFR 15-29 ml/min Secondary hyperparathyroidism Chief Complaint RENAL 4 WK INJ PROCR IT / DR RENAL 3 WK INJ / PROCRIT / NURSE RENAL 1 MONTH INJ / PROCRIT / nurse RENAL 1 MONTH INJ / PROCRIT / DR Reason for Visit Anemia of renal dise [facility] CKD (chronic kidney disease) stage 4, GFR 15-29 ml/min [id number] Hypomagnesemia Persistent microscopic hematuria Proteinuria Secondary hyperparathyroidism Type 2 diabetes mellitus with diabetic chronic kidney disease Anemia of renal disease CKD (chronic kidney disease) stage 4, GFR 15-29 ml/min Secondary hyperparathyroidism Anemia of renal disease CKD (chronic kidney disease) stage 4, GFR 15-29 ml/min Hyperkalemia [id number] Hypomagnesemia Persistent microscopic hematuria Proteinuria Secondary hyperparathyroidism Type 2 diabetes mellitus with diabetic chronic kidney disease Chief Complaint RENAL 1 MONTH INJ / PROCRIT / nurse RENAL 1 MONTH INJ / PROCRIT / DR RENAL 4 WK INJ / PROCRIT / NURSE Reason for Visit Anemia of renal dise [facility] CKD (chronic kidney disease) stage 4, GFR 15-29 ml/min Hyperkalemia [id number] Hypomagnesemia Persistent microscopic hematuria Proteinuria Secondary hyperparathyroidism Type 2 diabetes mellitus with diabetic chronic kidney disease Chief Complaint RENAL 1 MONTH INJ / PROCRIT / DR RENAL 4 WK INJ / PROCRIT / NURSE RENAL 1 MONTH INJ / PROCRIT / DR Reason for Visit Anemia of renal dise [facility] CKD (chronic kidney disease) stage 4, GFR 15-29 ml/min Hyperkalemia [id number] Hypomagnesemia Persistent microscopic hematuria Proteinuria Secondary hyperparathyroidism Type 2 diabetes mellitus with diabetic chronic kidney disease Anemia of renal disease CKD (chronic kidney disease) stage 4, GFR 15-29 ml/min Anemia of renal disease CKD (chronic kidney disease) stage 4, GFR 15-29 ml/min Hyperkalemia [id number] Type 2 diabetes mellitus with diabetic chronic kidney disease Chief Complaint Admit Date RENAL 1 MONTH INJ / PROCRIT / DR November 28, 2023 10:18am RENAL 4 WK INJ / PROCRIT / [facility]23 11:33am RENAL 1 MONTH INJ / PROCRIT / DR January 30, 2024 9:55am RENAL 1 MONTH INJ/ PROCRIT / NURSE Novem javan 2023 3:24pm Reason for Visit Admit Date Anemia of renal disease November 27 10:18am CKD (chronic kidney disease) stage 4, GF R 15-29 ml/min November 28, 2023 10:18am Hyperkalemia November 28, 2023 10 :18am Hypertensive chronic kidney disease with stage 1 through stage 4 chronic ki November 28, 2023 10:18am Hypomagnesemia November 28, 2023 10 :18am Persistent microscopic hematuria November 28, 2023 10:18am Proteinuria November 28, 2023 10 :18am Secondary hyperparathyroidism November 10:18am Type 2 diabetes mellitus wit h diabetic chronic kidney disease November 28, 2023 10:18am Anemia of renal disease December 25, 2023 11:33am CKD (chronic kidney disease) stage 4, GF R 15-29 ml/min December 25, 2023 11:33am Anemia of renal disease January 29 9:55am CKD (chronic kidney disease) stage 4, GF R 15-29 ml/min January 30, 2024 9:55am Hyperkalemia January 30, 2024 9 :55am Hypertensive chronic kidney disease with stage 1 through stage 4 chronic ki January 30, 2024 9:55am Hypomagnesemia January 30, 2024 9 :55am Persistent microscopic hematuria January 30, 2024 9:55am Proteinuria January 30, 2024 9 :55am Secondary hyperparathyroidism January 292023 9:55am Type 2 diabetes mellitus wit h diabetic chronic kidney disease January 30, 2024 9:55am Anemia of renal disease February 24, 2 024 3:24pm CKD (chronic kidney disease) stage 4, GF R 15-29 ml/min February 25, 2024 3:24pm Chief Complaint Admit Date RENAL 1 MONTH INJ / PROCRIT / DR January 30, 2024 9:55am RENAL 1 MONTH INJ/ PROCRIT / NURSE Novem 2023 3:24pm RENAL 1 MONTH INJ/ PROCRIT / NURSE Dece 2023 3:18pm RENAL INJ / PROCRIT / NURSE March 1:35pm [email or web address] March 25, 2024 9:52am 1 YR F/U; CAROTID DUPLEX March 25, 2024 10:36am RENAL 1 MONTH INJ / PROCRIT / DR April 23, 2024 9:58am Reason for Visit Admit Date Anemia of renal disease January 29 9:55am CKD (chronic kidney disease) stage 4, GF R 15-29 ml/min January 30, 2024 9:55am Hyperkalemia January 30, 2024 9 :55am Hypertensive chronic kidney disease with stage 1 through stage 4 chronic ki January 30, 2024 9:55am Hypomagnesemia January 30, 2024 9 :55am Persistent microscopic hematuria January 30, 2024 9:55am Proteinuria January 30, 2024 9 :55am Secondary hyperparathyroidism January 292023 9:55am Type 2 diabetes mellitus wit h diabetic chronic kidney disease January 30, 2024 9:55am Anemia of renal disease February 24, 2 024 3:24pm CKD (chronic kidney disease) stage 4, GF R 15-29 ml/min February 25, 2024 3:24pm Anemia of renal disease March 18 024 3:18pm CKD (chronic kidney disease) stage 4, GF R 15-29 ml/min March 18, 2024 3:18pm Hyperkalemia March 18, 2024 3:18pm Hypertensive chronic kidney disease with stage 1 through stage 4 chronic ki March 18, 2024 3:18pm Hypomagnesemia March 18, 2024 3:18pm Persistent microscopic hematuria Decembe r 2023 3:18pm Proteinuria March 18, 2024 3:18pm Secondary hyperparathyroidism March 082023 3:18pm Type 2 diabetes mellitus wit h diabetic chronic kidney disease March 18, 2024 3:18pm Former smoker March 25, 2024 10:36am Left carotid stenosis March 25 10:36am Anemia of renal disease April 23 9:58am CKD (chronic kidney disease) stage 4, GF R 15-29 ml/min April 23, 2024 9:58am Hyperkalemia April 23, 2024 9 :58am Hypertensive chronic kidney disease with stage 1 through stage 4 chronic ki April 23, 2024 9:58am Hypomagnesemia April 23, 2024 9 :58am Persistent microscopic hematuria April 23, 2024 9:58am Proteinuria April 23, 2024 9 :58am Secondary hyperparathyroidism April 232024 9:58am Type 2 diabetes mellitus wit h diabetic chronic kidney disease April 23, 2024 9:58am Chief Complaint Admit Date RENAL 1 MONTH INJ/ PROCRIT / NURSE Novem javan 2023 3:24pm RENAL 1 MONTH INJ/ PROCRIT / NURSE Decem javan 11th, 2024 3:18pm RENAL INJ / PROCRIT / NURSE March 1:35pm [email or web address] March 25, 2024 9:52am 1 YR F/U; CAROTID DUPLEX March 25, 2024 10:36am RENAL 1 MONTH INJ / PROCRIT / DR April 23, 2024 9:58am RENAL INJECTION / PROCRIT / NURSE Linwood hawthorne 2024 2:39pm Reason for Visit Admit Date Anemia of renal disease February 24, 2 024 3:24pm CKD (chronic kidney disease) stage 4, GF R 15-29 ml/min February 25, 2024 3:24pm Anemia of renal disease March 18 024 3:18pm CKD (chronic kidney disease) stage 4, GF R 15-29 ml/min March 18, 2024 3:18pm Hyperkalemia March 18, 2024 3:18pm Hypertensive chronic kidney disease with stage 1 through stage 4 chronic ki March 18, 2024 3:18pm Hypomagnesemia March 18, 2024 3:18pm [facility] Proteinuria March 18, 2024 3:18pm Secondary hyperparathyroidism March 082023 3:18pm Type 2 diabetes mellitus wit h diabetic chronic kidney disease March 18, 2024 3:18pm Former smoker March 25, 2024 10:36am Left carotid stenosis March 25 10:36am Anemia of renal disease April 23 9:58am CKD (chronic kidney disease) stage 4, GF R 15-29 ml/min April 23, 2024 9:58am Hyperkalemia April 23, 2024 9 :58am Hypertensive chronic kidney disease with stage 1 through stage 4 chronic ki April 23, 2024 9:58am Hypomagnesemia April 23, 2024 9 :58am Persistent microscopic hematuria April 23, 2024 9:58am Proteinuria April 23, 2024 9 :58am Secondary hyperparathyroidism April 232024 9:58am Type 2 diabetes mellitus wit h diabetic chronic kidney disease April 23, 2024 9:58am Anemia of renal disease May 04 2:39pm CKD (chronic kidney disease) stage 4, GF R 15-29 ml/min May 04, 2024 2:39pm Hypertensive chronic kidney disease with stage 1 through stage 4 chronic ki May 04, 2024 2:39pm Type 2 diabetes mellitus wit h diabetic chronic kidney disease May 04, 2024 2:39pm Chief Complaint Admit Date RENAL 1 MONTH INJ/ PROCRIT / NURSE Novem 2023 3:24pm RENAL 1 MONTH INJ/ PROCRIT / NURSE Decem 2023 3:18pm RENAL INJ / PROCRIT / NURSE March 1:35pm [email or web address] March 25, 2024 9:52am 1 YR F/U; CAROTID DUPLEX March 25, 2024 10:36am RENAL 1 MONTH INJ / PROCRIT / DR April 23, 2024 9:58am RENAL INJECTION / PROCRIT / NURSE Januar y 2024 2:39pm RENAL INJECTION / PROCRIT / NURSE Februa ry 2024 2:44pm Reason for Referral Specialty Diagnoses / Procedures Referred By Contac t Referred To Contact Radiology Diagnoses Spinal stenosis, lumbar region, without neurogenic claudication Right foot drop Procedures CT LUMBAR SPINE WO CONTRAST Sharon Ellison PA-C [address] [place] [address] Referral ID Status Reason Start Date Expiration Date Visits Re quested Visits Authorized [id number] Closed 05/22/2022 05/22/2023 1 1 Specialty Diagnoses / Procedures Referred By Contac t Referred To Contact Radiology Diagnoses Osteopenia of lumbar spine Procedures DEXA BONE DENSITY AXIAL SKELETON Sharon Ellison PA-C [address] [place] [address] Referral ID Status Reason Start Date Expiration Date Visits Re quested Visits Authorized [id number] Closed 05/22/2022 05/22/2023 1 1 Specialty Diagnoses / Procedures Referred By Contac t Referred To Contact Radiology Diagnoses Spondylosis of lumbosacral region without myelopathy or radiculopathy Lumbar spondylosis Postlaminectomy syndrome, lumbar Spinal stenosis of lumbar region with neurogenic claudication Procedures MRI LUMBAR SPINE WO CONTRAST Osiel Elaine R, PHYSICAL THERAPIST CENTER MANAGER - [employer] [address] [place] [address] Referral ID Status Reason Start Date Expiration Date Visits Re quested Visits Authorized [id number] Closed 03/30/2022 03/30/2023 1 1 Additional Source Comments (unrecognized sect ion and content) No Status Records FoundNo Status Records FoundNo Status Records FoundNo Status Records FoundNo Status Records FoundNo Status Records FoundNo Status Records FoundNo Status Records FoundNo Status Records Found INFORMATION SOURCE (unrecogn ized section and content) DATE CREATED AUTHOR 12/02/2018 [facility] DATE CREATED AUTHOR AUTHOR'S ORGANIZ ATION 07/27/2022 [facility] DATE CREATED AUTHOR AUTHOR'S ORGANIZ ATION 08/16/2022 [facility] DATE CREATED AUTHOR AUTHOR'S ORGANIZ ATION [facility]/2023 [facility] DATE CREATED AUTHOR AUTHOR'S ORGANIZ ATION 07/27/2023 [facility] DATE CREATED AUTHOR AUTHOR'S ORGANIZ ATION 08/01/2023 [facility] DATE CREATED AUTHOR AUTHOR'S ORGANIZ ATION 04/01/2024 [facility] DATE CREATED AUTHOR AUTHOR'S ORGANIZ ATION 05/21/2024 [facility] DATE CREATED AUTHOR AUTHOR'S ORGANIZ ATION 05/23/2024 [facility] EPIC REASON FOR VISIT (unrecogniz ed section and content) Specialty Diagnoses / Procedures Referred By Contac t Referred To Contact Radiology Diagnoses Spondylosis of lumbosacral region without myelopathy or radiculopathy Lumbar spondylosis Postlaminectomy syndrome, lumbar Spinal stenosis of lumbar region with neurogenic claudication Procedures MRI LUMBAR SPINE WO CONTRAST Osiel Elaine R, PHYSICAL THERAPIST CENTER MANAGER - [employer] [address] [place] [address] Referral ID Status Reason Start Date Expiration Date Visits Re quested Visits Authorized [id number] Closed 03/30/2022 03/30/2023 1 1 Specialty Diagnoses / Procedures Referred By Contac t Referred To Contact Radiology Diagnoses Osteopenia of lumbar spine Procedures DEXA BONE DENSITY AXIAL SKELETON Sharon Ellison PA-C [address] [place] [address] Referral ID Status Reason Start Date Expiration Date Visits Re quested Visits Authorized [id number] Closed 05/22/2022 05/22/2023 1 1 Specialty Diagnoses / Procedures Referred By Contac t Referred To Contact Radiology Diagnoses Spinal stenosis, lumbar region, without neurogenic claudication Right foot drop Procedures CT LUMBAR SPINE WO CONTRAST Sharon Ellison PA-C [address] [place] [address] Referral ID Status Reason Start Date Expiration Date Visits Re quested Visits Authorized [id number] Closed 05/22/2022 05/22/2023 1 1 Specialty Diagnoses / Procedures Referred By Contac t Referred To Contact Radiology Diagnoses Spinal stenosis, lumbar region, without neurogenic claudication Right foot drop Procedures CT THORACIC SPINE WO CONTRAST Sharon Ellison PA-C [address] [place] [address] Referral ID Status Reason Start Date Expiration Date Visits Re quested Visits Authorized [id number] Closed 05/22/2022 05/22/2023 1 1 Specialty Diagnoses / Procedures Referred By Contac t Referred To Contact Diagnoses Lumbar spondylosis Spinal stenosis, unspecified spinal region Spondylolisthesis, unspecified spinal region Lumbar spondylosis [M47.816] Spinal stenosis, unspecified spinal region [M48.00] Spondylolisthesis, unspecified spinal region [M43.10] Procedures FL ARTHRODESIS POSTERIOR/PSTLAT TQ 1NTRSPC LUMBAR FL ARTHRODESIS PST/PSTLAT TQ 1NTRSPC EA ADDL NTRSPC FL ARTHRODESIS SI JT OPN W/OBTAINING B1 GRF INSTRMJ FL [place] FACETECTOMY&FORAMOT 1 VRT SGM EA ADDL SGM FL POSTERIOR SEGMENTAL INSTRUMENTATION 3-6 VRT SEG FL ALLOGRAFT FOR SPINE SURGERY ONLY MORSELIZED L2-S1 REVISION DECOMPRESSION WITH L2-PELVIS FUSION Gabe Harris MD [address] [place] [address] [facility] [id number] [place] [address] Referral ID Status Reason Start Date Expiration Date Visits Re quested Visits Authorized [id number] 1 1 Reason Comments Hyperlipidemia Hypertension Diabetes Reason Comments Ankle Injury Fall Reason Comments Med Refill Care Teams (unrecognized sec tion and content) Team Status: Active Member Role Status Dates Ruben Luo MD Primary Care Provider Active Team Status: Active Member Role Status Dates Ruben Luo MD Primary Care Provider Active Start: January 28, 2024 Oma Sewell MD Attending Provider Active Start : January 28, 2024 Team Status: Inactive Member Role Status Dates Ruben Luo MD Primary Care Provider Active Start: January 30, 2024 End: January 30, 2024 Oma Sewell MD Attending Provider Active Start : January 30, 2024 End: January 30, 2024 Team Status: Active Member Role Status Dates Ruben Luo MD Primary Care Provider Active Start: February 21, 2024 Oma Sewell MD Attending Provider Active Start : February 21, 2024 Team Status: Inactive Member Role Status Dates Ruben Luo MD Primary Care Provider Active Start: February 25, 2024 End: February 25, 2024 Oma Sewell MD Attending Provider Active Start : February 25, 2024 End: February 25, 2024 Team Status: Active Member Role Status Dates Ruben Luo MD Primary Care Provider Active Start: March 13, 2024 Oma Sewell MD Attending Provider Active Start : March 13, 2024 Team Status: Inactive Member Role Status Dates Ruben Luo MD Primary Care Provider Active Start: March 18, 2024 End: March 18, 2024 Oma Sewell MD Attending Provider Active Start : March 18, 2024 End: March 18, 2024 Team Status: Inactive Member Role Status Dates Ruben Luo MD Primary Care Provider Active Start: March 23, 2024 End: March 23, 2024 Oma Sewell MD Attending Provider Active Start : March 23, 2024 End: March 23, 2024 Team Status: Inactive Member Role Status Dates Ruben Luo MD Primary Care Provider Active Start: March 25, 2024 End: March 25, 2024 Ney Roman MD Attending Provider Active Start: March 25, 2024 End: March 25, 2024 Team Status: Active Member Role Status Dates Ruben Luo MD Primary Care Provider Active Start: April 16, 2024 Oma Sewell MD Attending Provider Active Start : April 16, 2024 Team Status: Inactive Member Role Status Dates Ruben Luo MD Primary Care Provider Active Start: April 23, 2024 End: April 23, 2024 Oma Sewell MD Attending Provider Active Start : April 23, 2024 End: April 23, 2024 Team Status: Inactive Member Role Status Dates Ruben Luo MD Primary Care Provider Active Start: November 28, 2023 End: November 28, 2023 Oma Sewell MD Attending Provider Active Start : November 28, 2023 End: November 28, 2023 Team Status: Active Member Role Status Dates Ruben Luo MD Primary Care Provider Active Start: December 23, 2023 Oma Sewell MD Attending Provider Active Start : December 23, 2023 Team Status: Inactive Member Role Status Dates Ruben Luo MD Primary Care Provider Active Start: December 25, 2023 End: December 25, 2023 Oma Sewell MD Attending Provider Active Start : December 25, 2023 End: December 25, 2023 Team Status: Active Member Role Status Dates Ruben Luo MD Primary Care Provi jose, Attending Provider Active Start: June 07, 2023 Team Status: Inactive Member Role Status Dates Ruben Luo MD Primary Care Provider Active Start: June 10, 2023 End: June 10, 2023 Oma Sewell MD Attending Provider Active Start : June 10, 2023 End: June 10, 2023 Team Status: Active Member Role Status Dates Ruben Luo MD Primary Care Provider Active Start: July 06, 2023 Oma Sewell MD Attending Provider Active Start : July 06, 2023 Team Status: Inactive Member Role Status Dates Ruben Luo MD Primary Care Provider Active Start: July 09, 2023 End: July 09, 2023 Oma Sewell MD Attending Provider Active Start : July 09, 2023 End: July 09, 2023 Team Status: Active Member Role Status Dates Ruben Luo MD Primary Care Provider Active Start: August 02, 2023 Oma Sewell MD Attending Provider Active Start : August 02, 2023 Team Status: Inactive Member Role Status Dates Ruben Luo MD Primary Care Provider Active Start: August 05, 2023 End: August 05, 2023 Oma Sewell MD Attending Provider Active Start : August 05, 2023 End: August 05, 2023 Team Status: Inactive Member Role Status Dates Ruben Luo MD Primary Care Provider Active Ney Roman MD Attending Provider Active Team Status: Inactive Member Role Status Dates Ruben Luo MD Primary Care Provider Active Orlando Beaver MD Attending Provider Active Distribution Analyst Relationship Specialty Start Date End Date Ruben Luo MD PCP - General 09/15/13 Distribution Analyst Relationship Specialty Start Date End Date Ruben Luo MD PCP - General 09/15/13 Distribution Analyst Relationship Specialty Start Date End Date Ruben Luo MD PCP - General 09/15/13 Distribution Analyst Relationship Specialty Start Date End Date Ruben Luo MD PCP - General 09/15/13 Distribution Analyst Relationship Specialty Start Date End Date Ruben Luo MD [address] [place] [phone] PCP - General Family Medicine 08/28/22 Ruben Luo MD [address] [facility] [place] [address] PCP - ACO Reach 08/30/22 Distribution Analyst Relationship Specialty Start Date End Date Ruben Luo MD [address] [place] [phone] PCP - General Family Medicine 08/28/22 Ruben Luo MD [address] [place] [address] PCP - ACO Reach 08/30/22 Team Status: Inactive Member Role Status Dates Oma Sewell MD Attending Provider Active Start : April 16, 2023 End: April 16, 2023 Team Status: Inactive Member Role Status Dates Oma Sewell MD Attending Provider Active Start : May 07, 2023 End: May 07, 2023 Team Status: Active Member Role Status Dates Ruben Luo MD Primary Care Provider Activ e Team Status: Inactive Member Role Status Dates Patric Reese PA-C Attending Provider Active St art: July 25, 2023 End: July 25, 2023 Ruben Luo MD Primary Care Provider Activ e Start: July 25, 2023 End: July 25, 2023 Team Status: Active Member Role Status Dates Ruben Luo MD Primary Care Provider Active Start: September 03, 2023 Oma Sewell MD Attending Provider Active Start : September 03, 2023 Team Status: Inactive Member Role Status Dates Ruben Luo MD Primary Care Provider Active Start: September 05, 2023 End: September 05, 2023 Oma Sewell MD Attending Provider Active Start : September 05, 2023 End: September 05, 2023 Team Status: Active Member Role Status Dates Ruben Luo MD Primary Care Provider Active Start: September 20, 2023 Oma Sewell MD Attending Provider Active Start : September 20, 2023 Team Status: Inactive Member Role Status Dates Ruben Luo MD Primary Care Provider Active Start: September 23, 2023 End: September 23, 2023 Oma Sewell MD Attending Provider Active Start : September 23, 2023 End: September 23, 2023 Team Status: Inactive Member Role Status Dates Ruben Luo MD Primary Care Provider Active Start: October 28, 2023 End: October 28, 2023 Oma Sewell MD Attending Provider Active Start : October 28, 2023 End: October 28, 2023 Team Status: Active Member Role Status Dates Ruben Luo MD Primary Care Provi jose, Attending Provider Active Start: October 23, 2023 Team Status: Active Member Role Status Dates Ruben Luo MD Primary Care Provider Active Start: November 26, 2023 Oma Sewell MD Attending Provider Active Start : November 26, 2023 Distribution Analyst Relationship Specialty Start Date End Date Ruben Luo MD [address] [place] [address] PCP - General Family Medicine 08/28/22 Ruben Luo MD [address] [place] [address] PCP - ACO Reach 08/30/22 Halleo-Gabe Bernal Jr., MD [address] [place] [address] [place] [address] Referring Physician Orthopaedic Surgery 05/16/23 Oma Sewell MD [address] [phone] Referring Physician Nephrology 05/16/23 Vadim Veronica MD [address] [place] [phone] Referring Physician Family Medicine 05/16/23 Josie Bianchi LSW Pressure Supervisor Family Medicine 09/06/23 Distribution Analyst Relationship Specialty Start Date End Date Ruben Luo MD PCP - General Family Medicine 08/28/22 Ruben Luo MD [address] [place] [address] (Fax) PCP - ACO Reach 08/30/22 Gabe Harris Jr., MD [address] [facility] [place] [address] Referring Physician Orthopaedic Surgery 05/16/23 Oma Sewell MD [address] [place] [address] Referring Physician Nephrology 05/16/23 Vadim Veronica MD [address] [place] [phone] Referring Physician Family Medicine 05/16/23 Josie Bianchi LSW Pressure Supervisor Family Medicine 09/06/23 Distribution Analyst Relationship Specialty Start Date End Date Ruben Luo MD (Fax) PCP - General Family Medicine 08/28/22 Ruben Luo MD [address] [place] [phone] (Fax) PCP - ACO Reach 08/30/22 Kimberly Bernal Jr., MD [address] [facility] [place] [address] Referring Physician Orthopaedic Surgery 05/16/23 Oma Sewell MD [address] [place] [address] Referring Physician Nephrology 05/16/23 Vadim Veronica MD [address] [place] [phone] Referring Physician Family Medicine 05/16/23 Josie Bianchi LSW Pressure Supervisor Family Medicine 09/06/23 Distribution Analyst Relationship Specialty Start Date End Date Ruben Luo MD [address] [place] [phone] PCP - General Family Medicine 08/28/22 Ruben Luo MD [address] [place] [address] PCP - ACO Reach 08/30/22 Halleo-Gabe Bernal Jr., MD [address] [place] [address] [place] [address] Referring Physician Orthopaedic Surgery 05/16/23 Oma Sewell MD [address] [phone] Referring Physician Nephrology 05/16/23 Vadim Veronica MD [address] [place] [address] Referring Physician Family Medicine 05/16/23 Josie Bianchi LSW Pressure Supervisor Family Medicine 09/06/23 Distribution Analyst Relationship Specialty Start Date End Date Ruben Luo MD [address] [place] [phone] PCP - General Family Medicine 08/28/22 Ruben Luo MD [address] [place] [address] (Fax) PCP - ACO Reach 08/30/22 Gabe Harris Jr., MD [address] [facility] [place] [address] Referring Physician Orthopaedic Surgery 05/16/23 Oma Sewell MD [address] [facility] 1 [place] [address] Referring Physician Nephrology 05/16/23 [place] [address] [place] [phone] Referring Physician Family Medicine 05/16/23 Josie Bianchi LSW Pressure Supervisor Family Medicine 09/06/23 Distribution Analyst Relationship Specialty Start Date End Date Ruben Luo MD (Fax) PCP - General Family Medicine 08/28/22 Ruben Luo MD [address] [place] [phone] (Fax) PCP - ACO Reach 08/30/22 Kimberly Bernal Jr., MD [address] [facility] [place] [address] Referring Physician Orthopaedic Surgery 05/16/23 Oma Sewell MD [address] [facility] 1 [place] [phone] Referring Physician Nephrology 05/16/23 Vadim Veronica MD [address] [place] [phone] Referring Physician Family Medicine 05/16/23 Josie Bianchi LSW Pressure Supervisor Family Medicine 09/06/23 Distribution Analyst Relationship Specialty Start Date End Date Ruben Luo MD (Fax) PCP - General Family Medicine 08/28/22 Ruben Luo MD [address] [place] [address] (Fax) PCP - ACO Reach 08/30/22 Kimberly Bernal Jr., MD [address] [place] [address] [place] [address] Referring Physician Orthopaedic Surgery 05/16/23 Oma Sewell MD [address] [place] [phone] Referring Physician Nephrology 05/16/23 Vadim Veronica MD [address] [place] [phone] Referring Physician Family Medicine 05/16/23 Josie Bianchi LSW Pressure Supervisor Family Medicine 09/06/23 Distribution Analyst Relationship Specialty Start Date End Date Ruben Luo MD (Fax) PCP - General Family Medicine 08/28/22 Ruben Luo MD [address] [place] [address] (Fax) PCP - ACO Reach 08/30/22 Kimberly Bernal Jr., MD [address] [place] [address] Referring Physician Orthopaedic Surgery 05/16/23 Oma Sewell MD [address] [place] [phone] Referring Physician Nephrology 05/16/23 Vadim Veronica MD [address] [place] [phone] Referring Physician Family Medicine 05/16/23 Josie Bianchi OLD TESTAMENT PROFESSOR Pressure Supervisor Family Medicine 09/06/23 Team Status: Active Member Role Status Dates Ruben Luo MD Primary Care Provider Active Start: April 30, 2024 Oma Sewell MD Attending Provider Active Start : April 30, 2024 Team Status: Inactive Member Role Status Dates Ruben Luo MD Primary Care Provider Active Start: May 04, 2024 End: May 04, 2024 Oma Sewell MD Attending Provider Active Start : May 04, 2024 End: May 04, 2024 Distribution Analyst Relationship Specialty Start Date End Date Ruben Luo MD (Fax) PCP - General Family Medicine 08/28/22 Ruben Luo MD [address] [place] [address] [address] [place] [address] (Fax) PCP - ACO Reach 08/30/22 Kimberly Bernal Jr., MD [address] [place] [address] Referring Physician Orthopaedic Surgery 05/16/23 Oma Sewell MD [address] [place] [phone] Referring Physician Nephrology 05/16/23 Vadim Veronica MD [address] [place] [address] Referring Physician Family Medicine 05/16/23 Josie Bianchi LSW Pressure Supervisor Family Medicine 09/06/23 Distribution Analyst Relationship Specialty Start Date End Date Ruben Luo MD PCP - General Family Medicine 08/28/22 Ruben Luo MD [address] [place] [address] [address] [place] [address] (Fax) PCP - ACO Reach 08/30/22 Kimberly Bernal Jr., MD [address] [place] [address] [place] [address] Referring Physician Orthopaedic Surgery 05/16/23 Oma Sewell MD [address] [facility] 1 [place] [phone] Referring Physician Nephrology 05/16/23 Vadim Veronica MD [address] [place] [phone] Referring Physician Family Medicine 05/16/23 Josie Bianchi LSW Pressure Supervisor Family Medicine 09/06/23 Team Status: Active Member Role Status Dates Ruben Luo MD Primary Care Provider Active Start: May 15, 2024 Oma Sewell MD Attending Provider Active Start : May 15, 2024 Team Status: Inactive Member Role Status Dates Ruben Luo MD Primary Care Provider Active Start: May 19, 2024 End: May 19, 2024 Oma Sewell MD Attending Provider Active Start : May 19, 2024 End: May 19, 2024 Goals (unrecognized section and content) Goals may [...] Until Discontinued 1848 (Given - Provider: Justa Haney, MAMIE) 1819 (Given - Provider: Justa Tobias RN) 164 [...] hypotension 0757 (Given - Provider: Yomaira Lynn RN)163 (Given - Provider: Justa Haney RN) 0845 (Given - Provider: Justa Tobias RN)1724 (Given - Provider: Justa Tobias RN) 08 (Given - Provider: Irene Sauer RN)164 (Given - Provider: Irene Sauer RN) Dexamethasone Sodium Phosphate injection 8 mg (COMPLETED) 8 mg, IntraVENous, EVERY 8 HOURS, First dose on 07/23/22 at 1530, For 6 doses 0758 (Given [...] modification) on Sat07/26/22 at 0900, Until Discontinued 0823 (Given - Provider: Irene Sauer RN) ferrous [...] Over 349 4 Units and notify physician 923 (Given - Provider: Yomaira Lynn RN) insulin [...] Tobias, MAMIE) 0823 (Given - Provider: Irene Sauer RN) magnesium oxide (MAG-OX) tablet 400 mg 400 mg, Oral, DAILY, First dose on Sat07/19/22 at 1830, Until Discontinued 0805 (Given - Provider: Yomaira Lynn RN) 0900 (Given - Provider: Justa Tobias, MAMIE) 0823 (Given - Provider: Irene Sauer RN) [...] refused) 0845 (Given - Provider: Justa Tobias RN)221 (Not Given - Provider: Juan Bermeo RN [...] 10 g, Oral, ONCE, 1 dose, On 4/18/23 at 0830, Empty entire contents of the packet(s) into a glass with 3 tablespoons (45 mL) of water. Stir well and drink immediately; if powder remains in the glass, add water, stir and drink immediately; repeat until no powder remains. Administer other oral medications 2 hours before or 2 hours after dose. 0927 (Given - Provider: Yomaira Lynn, RN) sodium zirconium cyclosilicate (LOKELMA) oral suspension [...] BE BASED ON THE PRIMARY CLINICAL RECORDS. [employer] [facility]. provides no warranty or guarantee of the accuracy or completeness of information in this document.
--- NOTE | 2024-05-28 00:58 | ECG_ITS ---
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
--- NOTE | 2024-05-28 00:59 | ED_ITS ---
HPI HPI - General Adult General Chief complaint: Shortness of Breath/Dyspnea Stated complaint: SOB Time Seen by Provider: 05/28/24 00:53 Source: patient Mode of arrival: walk-in Limitations: no limitations History of Present Illness HPI narrative: 73-year-old male presents to the emergency department for shortness of breath. He has had this for several days and he states he has put on about 14 pounds recently. 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 He is not on dialysis. He has not had a fever or productive cough and does not complain of chest pain or back pain. Related Data Home Medications ?Medication ?Instructions ?Recorded ?Confirmed Nitro 05/28/24 albuterol sulfate 2.5 mg/3 mL mg 05/28/24 (0.083 %) solution for nebulization amlodipine 10 mg tablet mg 05/28/24 aspirin 81 mg capsule 81 mg PO .COMPLEX 05/28/24 05/28/24 atorvastatin 40 mg tablet mg 05/28/24 benzonatate 200 mg capsule mg PO 05/28/24 blood sugar diagnostic (True 05/28/24 05/28/24 Metrix Glucose Test Strip) blood-glucose meter (True Metrix 05/28/24 05/28/24 Glucose Meter) doxazosin 2 mg tablet mg 05/28/24 furosemide 20 mg tablet mg 05/28/24 glipizide 5 mg tablet mg 05/28/24 iron 05/28/24 lancets 33 gauge (Unilet Lancet) 05/28/24 05/28/24 magnesium oxide 400 mg (241.3 mg mg 05/28/24 magnesium) tablet metoprolol succinate 50 mg mg PO 05/28/24 tablet,extended release 24 hr sildenafil (pulm.hypertension) 20 mg 05/28/24 mg tablet sodium bicarbonate 650 mg tablet mg 05/28/24 Allergies Allergy/AdvReac Type Severity Reaction Status Date / Time codeine Allergy Intermediate Vomiting Verified 05/28/24 00:44 lisinopril Allergy Intermediate Cough Verified 05/28/24 00:44 Sulfa (Sulfonamide Allergy Intermediate Vomiting Verified 05/28/24 00:44 Antibiotics) Opioid HPI Opioid Management Most Recent Opioid Data: No Data to Display Review of Systems ROS Narrative A ten point review of systems is negative except as noted above. Exam Narrative Exam Narrative: Nurses note and vital signs reviewed and patient is not hypoxic. General: The patient appears in no acute respiratory distress. He seems to be mildly dyspneic when he speaks. Skin: Warm, dry, no pallor noted. There is no rash noted. Head: Normocephalic, atraumatic Eye: Normal conjunctiva, no drainage Ears, Nose, Mouth, and Throat: oral mucosa is moist. Nares patent. Cardiovascular: Regular Rate and Rhythm Respiratory: Patient is in no distress, no accessory muscle use, lungs are clear to auscultation, no wheezing, rales or rhonchi Back: non-tender GI: Soft and nontender Musculoskeletal: Bilateral ankle edema, left slightly more than the right Neurological: A&O, normal speech Psychiatric: Cooperative Constitutional Vital Signs, click to edit/add: Last Vital Signs Temp 98.0 F 05/28/24 02:30 Pulse 56 L 05/28/24 02:30 Resp 22 H 05/28/24 02:02 BP 162/74 H 05/28/24 00:32 Pulse Ox 96 05/28/24 02:30 O2 Del Method Nasal Cannula 05/28/24 02:02 O2 Flow Rate 1 05/28/24 02:30 Course Vital Signs Vital signs: Vital Signs Pulse Rate 69 05/28/24 00:32 Respiratory Rate 24 H 05/28/24 00:32 Blood Pressure 162/74 H 05/28/24 00:32 Pulse Oximetry 95 05/28/24 00:32 Oxygen Delivery Method Nasal Cannula 05/28/24 00:32 Oxygen Delivery Flow Rate 4 05/28/24 00:32 Temperature 98.0 F 05/28/24 02:30 Pulse Rate 56 L 05/28/24 02:30 Respiratory Rate 22 H 05/28/24 02:02 Blood Pressure 162/74 H 05/28/24 00:32 Pulse Oximetry 96 05/28/24 02:30 Oxygen Delivery Method Nasal Cannula 05/28/24 02:02 Oxygen Delivery Flow Rate 1 05/28/24 02:30 Medical Decision Making MDM Narrative Medical decision making narrative: Hemoglobin is 7.7 which is his baseline. BUN and creatinine are 66 and 3.75 which is also near his baseline. BNP is elevated and chest x-ray per radiologist shows central pulmonary vascular congestion and an enlarged heart. He was given 1 mg of IV Bumex twice and seems to be feeling improved. My clinical impression is that he has fluid overload. His GFR is 16. 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 I have spoken to Dr. Judge at [facility] and he accepts the patient. The patient is stable and agreeable for transfer. Treatment diagnosis and disposition were discussed with the patient. Differential Diagnosis Differential Diagnosis: CHF, pulmonary edema, COVID, influenza, pneumonia Lab Data Lab results reviewed: Yes I reviewed the patient's lab results Labs: Lab Results 05/28/24 Range/Units 00:50 WBC 7.0 (4.0-11.0) 10^3/uL RBC 2.53 L (4.70-6.10) 10^6/uL Hgb 7.7 L (14.0-18.0) g/dL Hct 24.4 L (42.0-54.0) % MCV 96.4 H (80.0-94.0) fL MCH 30.4 (25.9-34.0) pg MCHC 31.6 (29.9-35.2) g/dL RDW 13.7 (11.0-15.0) % Plt Count 164 (150-450) 10^3/uL MPV 9.3 L (9.5-13.5) fL Neut % (Auto) 73.6 (43.0-75.0) % Lymph % (Auto) 11.1 L (20.5-60.0) % [place] % (Auto) 6.3 (1.7-12.0) % Eos % (Auto) 7.8 H (0.9-7.0) % Baso % (Auto) 0.6 (0.2-2.0) % Neut # (Auto) 5.2 (1.4-6.5) 10^3/uL Lymph # (Auto) 0.8 L (1.2-3.8) 10^3/uL [place] # (Auto) 0.4 (0.3-0.8) 10^3/uL Eos # (Auto) 0.6 (0.0-0.7) 10^3/uL Baso # (Auto) 0.0 (0.0-0.1) 10^3/uL Abs Immat Gran (auto) 0.04 H (0.00-0.03) 10^3/uL Imm/Tot Granulo (auto) 0.6 H (0.0-0.5) % Sodium 142 (136-145) mmol/L Potassium 5.5 H (3.5-5.1) mmol/L Chloride 108 H (98-107) mmol/L Carbon Dioxide 23.9 (21.0-32.0) mmol/L Anion Gap 15.6 BUN 66.0 H (7.0-18.0) mg/dL Creatinine 3.75 H (0.70-1.30) mg/dL Est GFR ( Amer) 19 L (>=60 mL/min/1.73m^2) Est GFR (Non-Af Amer) 16 L (>=60 mL/min/1.73m^2) BUN/Creatinine Ratio 17.6 Glucose 90 (74-106) mg/dL Calcium 8.1 L (8.5-10.1) mg/dL Troponin I High Sens 17.4 (4.0-76.1) pg/mL NT-Pro-B Natriuret Pep 4757.0 H* (<=900.0) pg/mL Influenza Type A Ag Negative Influenza Type B Ag Negative SARS-CoV-2 Ag (CV2AG) Negative (NEGATIVE) Imaging Data Chest x-ray: Radiologist's impression: Mild enlarged heart size, hypoinflated lungs, central pulmonary vascular congestion, coarsened bronchovascular pattern to the lungs, small right pleural effusion ECG Data Attestation: I personally reviewed and interpreted this ECG as follows: (EKG on my interpretation shows sinus rhythm with a rate of 58 and no acute change.) Critical Care Time Critical Care Time Critical Care Time: Yes Total Critical Care Time: 35 Attestation: Due to the high probability of sudden and clinically significant deterioration in the patient's condition he/she required the highest level of my preparedness to intervene urgently I provided critical care time including documentation time, medication orders and management, reevaluation, vital sign assessment, ordering and reviewing of lab tests, ordering and reviewing of x-ray studies, and admission orders. Aggregate critical care time is 35 minutes including only time during which I was engaged in work directly related to his/her care and did not include time spent treating other patients simultaneously. Discharge Plan Discharge Chief Complaint: Shortness of Breath/Dyspnea Clinical Impression: Fluid overload Patient Disposition: Xfer Acute Care Hospital Time of Disposition Decision: 02:19 Discharge Location: [facility] Condition: Fair Mode of Transportation: EMS
[2024-05-28 01:06] LABS: Basophils Percent Auto 0.6 % (0.2-2.0); Eosinophils Absolute Auto 0.6 10^3/uL (0.0-0.7); Eosinophils Percent Auto 7.8 % (0.9-7.0); Hematocrit 24.4 % (42.0-54.0); Hemoglobin 7.7 g/dL (14.0-18.0); Immature Granulocytes Abs Auto 0.04 10^3/uL (0.00-0.03); Immature Granulocytes Pct Auto 0.6 % (0.0-0.5); Lymphocytes Absolute Auto 0.8 10^3/uL (1.2-3.8); Lymphocytes Percent Auto 11.1 % (20.5-60.0); Mean Corpuscular HGB Conc 31.6 g/dL (29.9-35.2); Mean Corpuscular Hemoglobin 30.4 pg (25.9-34.0); Mean Corpuscular Volume 96.4 fL (80.0-94.0); Mean Platelet Volume 9.3 fL (9.5-13.5); Monocytes Absolute Auto 0.4 10^3/uL (0.3-0.8); Monocytes Percent Auto 6.3 % (1.7-12.0); Neutrophils Absolute Auto 5.2 10^3/uL (1.4-6.5); Neutrophils Percent Auto 73.6 % (43.0-75.0); Platelet Count 164 10^3/uL (150-450); Red Blood Count 2.53 10^6/uL (4.70-6.10); Red Cell Distribution Width 13.7 % (11.0-15.0)
[2024-05-28 01:17] LABS: Anion Gap 15.6; BUN Creatinine Ratio 17.6; Calcium 8.1 mg/dL (8.5-10.1); Carbon Dioxide 23.9 mmol/L (21.0-32.0); Chloride 108 mmol/L (98-107); Estimated GFR (African America 19 (>=60 mL/min/1.73m^2); Estimated GFR (Non-African Ame 16 (>=60 mL/min/1.73m^2); Glucose 90 mg/dL (74-106); Potassium 5.5 mmol/L (3.5-5.1); Sodium 142 mmol/L (136-145)
[2024-05-28 01:25] LABS: Influenza Virus A Antigen Negative; Influenza Virus B Antigen Negative; Internal Control Within Normal Limits
[2024-05-28 01:26] LABS: Internal Control Within Normal Limits; SARS-CoV-2 Ag NEGATIVE (NEGATIVE)
[2024-05-28 01:28] LABS: Troponin I High Sensitivity 17.4 pg/mL (4.0-76.1)
[2024-05-28] MEDS: BUMETANIDE 1 MG/4 ML VIAL IVP ×2 (01:56→03:05)
== END 2024-05-28 04:55 | disposition short-term general hospital (02) ==
PROVIDERS: Emergency Provider Emergency Medicine; PCP Family Medicine
DX: E87.70 Fluid overload, unspecified (principal); R06.02 Shortness of breath
CPT/HCPCS: 36415; 71045; 80048; 83880; 84484; 85025; 87804; 87811; 93005; 96374; 96376; 99285

== ENCOUNTER 2024-06-08 15:54 | Outpatient (OUT) | payer MEDICARE, OTHER, SELFPAY ==
[2024-06-08 16:19] LABS: Hematocrit 30.8 % (42.0-54.0); Hemoglobin 10.4 g/dL (14.0-18.0); Mean Corpuscular HGB Conc 33.8 g/dL (29.9-35.2); Mean Corpuscular Hemoglobin 30.7 pg (25.9-34.0); Mean Corpuscular Volume 90.9 fL (80.0-94.0); Mean Platelet Volume 9.2 fL (9.5-13.5); Platelet Count 191 10^3/uL (150-450); Red Blood Count 3.39 10^6/uL (4.70-6.10); Red Cell Distribution Width 13.2 % (11.0-15.0); White Blood Count 7.4 10^3/uL (4.0-11.0)
[2024-06-08 16:43] LABS: Albumin Level 3.7 g/dL (3.4-5.0); Anion Gap 13.6; BUN Creatinine Ratio 18.4; Calcium 7.9 mg/dL (8.5-10.1); Carbon Dioxide 33.1 mmol/L (21.0-32.0); Chloride 98 mmol/L (98-107); Estimated GFR (African America 15 (>=60 mL/min/1.73m^2); Estimated GFR (Non-African Ame 12 (>=60 mL/min/1.73m^2); Glucose 200 mg/dL (74-106); Phosphorus 4.1 mg/dL (2.6-4.7); Potassium 4.7 mmol/L (3.5-5.1); Sodium 140 mmol/L (136-145)
[2024-06-08 16:44] LABS: Percent Iron Saturation 33.1 %
== END 2024-06-08 15:55 | disposition home or self-care (01) ==
LOC: LAB 15:54
PROVIDERS: PCP Family Medicine; Visit Provider Internal Medicine
DX: I12.9 Hypertensive chronic kidney disease with stage 1 through stage 4 chronic kidney disease, or unspecified chronic kidney disease (principal); N18.4 Chronic kidney disease, stage 4 (severe); D63.1 Anemia in chronic kidney disease; N18.9 Chronic kidney disease, unspecified; E11.22 Type 2 diabetes mellitus with diabetic chronic kidney disease; E87.5 Hyperkalemia
CPT/HCPCS: 36415; 80069; 82728; 83540; 83550; 85027

== ENCOUNTER 2024-06-18 11:24 | Outpatient (OUT) | payer MEDICARE, OTHER, SELFPAY ==
[2024-06-18 12:07] LABS: Albumin Level 3.8 g/dL (3.4-5.0); BUN Creatinine Ratio 19.7; Calcium 8.8 mg/dL (8.5-10.1); Carbon Dioxide 26.9 mmol/L (21.0-32.0); Chloride 103 mmol/L (98-107); Estimated GFR (African America 19 (>=60 mL/min/1.73m^2); Estimated GFR (Non-African Ame 16 (>=60 mL/min/1.73m^2); Glucose 140 mg/dL (74-106); Phosphorus 3.7 mg/dL (2.6-4.7); Potassium 4.9 mmol/L (3.5-5.1); Sodium 140 mmol/L (136-145)
== END 2024-06-18 11:25 | disposition home or self-care (01) ==
LOC: LAB 11:24
PROVIDERS: PCP Family Medicine; Visit Provider Internal Medicine
DX: E83.42 Hypomagnesemia (principal); R31.29 Other microscopic hematuria; R80.9 Proteinuria, unspecified; N25.81 Secondary hyperparathyroidism of renal origin
CPT/HCPCS: 36415; 80069

== ENCOUNTER 2024-07-06 14:35 | Outpatient (OUT) | payer MEDICARE, OTHER, SELFPAY ==
[2024-07-06 15:08] LABS: Hematocrit 26.6 % (42.0-54.0); Hemoglobin 9.1 g/dL (14.0-18.0); Mean Corpuscular HGB Conc 34.2 g/dL (29.9-35.2); Mean Corpuscular Hemoglobin 30.5 pg (25.9-34.0); Mean Corpuscular Volume 89.3 fL (80.0-94.0); Mean Platelet Volume 8.9 fL (9.5-13.5); Platelet Count 124 10^3/uL (150-450); Red Blood Count 2.98 10^6/uL (4.70-6.10); White Blood Count 6.6 10^3/uL (4.0-11.0)
[2024-07-06 15:23] LABS: Albumin Level 3.3 g/dL (3.4-5.0); Anion Gap 13.6; BUN Creatinine Ratio 22.1; Calcium 8.5 mg/dL (8.5-10.1); Carbon Dioxide 26.3 mmol/L (21.0-32.0); Chloride 105 mmol/L (98-107); Estimated GFR (African America 16 (>=60 mL/min/1.73m^2); Estimated GFR (Non-African Ame 14 (>=60 mL/min/1.73m^2); Glucose 107 mg/dL (74-106); Magnesium 2.5 mg/dL (1.8-2.4); Phosphorus 3.9 mg/dL (2.6-4.7); Potassium 4.9 mmol/L (3.5-5.1); Sodium 140 mmol/L (136-145)
[2024-07-07 09:08] LABS: PTH, Intact 117 pg/mL (15-65)
== END 2024-07-06 14:36 | disposition home or self-care (01) ==
LOC: LAB 14:36
PROVIDERS: PCP Family Medicine; Visit Provider Internal Medicine
DX: E83.42 Hypomagnesemia (principal); R31.29 Other microscopic hematuria; R80.9 Proteinuria, unspecified; N25.81 Secondary hyperparathyroidism of renal origin; N18.9 Chronic kidney disease, unspecified; D63.1 Anemia in chronic kidney disease
CPT/HCPCS: 36415; 80069; 82306; 82728; 83735; 83970; 85027

== ENCOUNTER 2024-08-12 10:51 | Outpatient (OUT) | payer MEDICARE, OTHER, SELFPAY ==
[2024-08-12 11:08] LABS: Hemoglobin 9.3 g/dL (14.0-18.0); Mean Corpuscular HGB Conc 34.4 g/dL (29.9-35.2); Mean Corpuscular Hemoglobin 31.2 pg (25.9-34.0); Mean Corpuscular Volume 90.6 fL (80.0-94.0); Mean Platelet Volume 8.2 fL (9.5-13.5); Platelet Count 146 10^3/uL (150-450); Red Blood Count 2.98 10^6/uL (4.70-6.10); Red Cell Distribution Width 12.8 % (11.0-15.0); White Blood Count 7.2 10^3/uL (4.0-11.0)
[2024-08-12 12:03] LABS: Albumin Level 3.5 g/dL (3.4-5.0); Anion Gap 9.8; BUN Creatinine Ratio 23.7; Calcium 8.5 mg/dL (8.5-10.1); Chloride 105 mmol/L (98-107); Estimated GFR (African America 17 (>=60 mL/min/1.73m^2); Estimated GFR (Non-African Ame 14 (>=60 mL/min/1.73m^2); Glucose 106 mg/dL (74-106); Phosphorus 4.3 mg/dL (2.6-4.7); Potassium 4.8 mmol/L (3.5-5.1); Sodium 140 mmol/L (136-145)
[2024-08-13 12:08] LABS: PTH, Intact 144 pg/mL (15-65)
== END 2024-08-12 10:52 | disposition home or self-care (01) ==
LOC: LAB 10:51
PROVIDERS: PCP Family Medicine; Visit Provider Internal Medicine
DX: E87.5 Hyperkalemia (principal); E11.22 Type 2 diabetes mellitus with diabetic chronic kidney disease; I12.9 Hypertensive chronic kidney disease with stage 1 through stage 4 chronic kidney disease, or unspecified chronic kidney disease; N18.9 Chronic kidney disease, unspecified; D63.1 Anemia in chronic kidney disease; N18.4 Chronic kidney disease, stage 4 (severe)
CPT/HCPCS: 36415; 80069; 82306; 82728; 83540; 83550; 83970; 85027

== ENCOUNTER 2024-08-21 11:41 | Outpatient (OUT) | payer MEDICARE, OTHER, SELFPAY ==
[2024-08-21 12:06] LABS: Hematocrit 25.7 % (42.0-54.0); Hemoglobin 8.8 g/dL (14.0-18.0); Mean Corpuscular HGB Conc 34.2 g/dL (29.9-35.2); Mean Corpuscular Hemoglobin 31.5 pg (25.9-34.0); Mean Corpuscular Volume 92.1 fL (80.0-94.0); Mean Platelet Volume 9.2 fL (9.5-13.5); Platelet Count 162 10^3/uL (150-450); Red Blood Count 2.79 10^6/uL (4.70-6.10); Red Cell Distribution Width 13.2 % (11.0-15.0); White Blood Count 7.5 10^3/uL (4.0-11.0)
[2024-08-21 12:18] LABS: Albumin Level 3.5 g/dL (3.4-5.0); Anion Gap 14.4; BUN Creatinine Ratio 21.4; Calcium 8.6 mg/dL (8.5-10.1); Carbon Dioxide 26.3 mmol/L (21.0-32.0); Chloride 106 mmol/L (98-107); Estimated GFR (African America 15 (>=60 mL/min/1.73m^2); Estimated GFR (Non-African Ame 12 (>=60 mL/min/1.73m^2); Glucose 94 mg/dL (74-106); Phosphorus 3.9 mg/dL (2.6-4.7); Potassium 4.7 mmol/L (3.5-5.1); Sodium 142 mmol/L (136-145)
== END 2024-08-21 11:42 | disposition home or self-care (01) ==
LOC: LAB 11:41
PROVIDERS: PCP Family Medicine; Visit Provider Internal Medicine
DX: N18.5 Chronic kidney disease, stage 5 (principal); N18.9 Chronic kidney disease, unspecified; D63.1 Anemia in chronic kidney disease
CPT/HCPCS: 80069; 85027

== ENCOUNTER 2024-09-08 11:45 | Outpatient (OUT) | payer MEDICARE, OTHER, SELFPAY ==
--- OUTSIDE RECORDS SUMMARY | 2023-04-23 06:30 | XMS_ITS ---
Author Organization [facility] Address [address] [place] [address] Care Team Providers Care Network Security Architect Name Role Phone Gabe Harris Unavailable [phone] Allergies No Known Allergies Results Component Value Reference Range Notes Cervical spine 2 v - [id number] Reviewed date:05/16/2023 12:01:01 PM Interpretation: Performing Lab: Notes/Report: REASON FOR VISIT 6 week john of Cervical spine - 2 v xray, Post-op review of the Cervical Spine Medications Medication SIG (Take, Route, Fr equency, Duration) Notes Start Date End Date Status amLODIPine Active doxazosin Active atorvastatin Active Losartan/Potassium A ctive Magnesium Active metFORMIN Active Iron Chelated Active Aspirin Low Dose Act trinity Vitamin B12 Active Vitamin D Active carvedilol Active Social History Tobacco Use: Social History Observation Description Date Details (start date - stop date) Former Smoker NA - NA Smoking History Question Answer Notes Smoking Status Former Smoker Vital Signs Height 5 ft 7 in in 04/23/2023 Weight 176 lbs 04/23/2023 BMI 27.56 04/23/2023 Encounters Encounter Location Date Provider Diagnosis [facility] [address] [place] [address] [facility] after[facility] Z47.89 Assessments Encounter Date Diagnosis (ICD Code) Assessment Notes Treatment Notes Treatment Clinical Notes Section Notes 04/23/2023 Encounter for other orthopedic aftercare (ICD-10 - Z47.89) 1. ~3 months s/p C3-C6 ACDF He is very happy with surgical outcomes as he has noted significant improvement in his balance and denies any neck pain or radicular symptoms at this time. We will see him back in 3 months for repeat evaluation. 04/23/2023 Other Discussed results with the patient. The patient is very much in agreement with the treatment and/or diagnostic plan set forth and all questions were answered to the patient's satisfaction. Thanks once again. If we can be of further service to your patients with disorders of the spine, cervical, thoracic, or lumbar, please do not hesitate to contact me. 1. ~3 months s/p C3-C6 ACDF He is very happy with surgical outcomes as he has noted significant improvement in his balance and denies any neck pain or radicular symptoms at this time. We will see him back in 3 months for repeat evaluation. Plan Of Treatment Treatment Notes Assessment Notes Other Discussed results with the patient. The patient is very much in agreement with the treatment and/or diagnostic plan set forth and all questions were answered to the patient's satisfaction. Thanks once again. If we can be of further service to your patients with disorders of the spine, cervical, thoracic, or lumbar, please do not hesitate to contact me. Next Appt Details Follow Up: 3 Months, Reason: Progress Notes * VALERIY SANTOS GDOB:1950 (73 yo M)Acc No.[id number]:04/23/2023 Progress Notes Patient: VALERIY BROWNE Provider: Geetha Harris MD :1950 A ge:72 Y S ex:Male Date:04/23/2023 Address:[address] [place], [place] [id number] Subjective: * Chief Complaints: * 6 week john of Cervical spine - 2 v xrayPost-op review of the Cervical Spine * HPI: G eneral Info per Patient Report: The patient returns to the office now 3 months s/p C3-C6 ACDF. He reports significant improvement in his balance and neck pain/radicular symptoms. He is very happy with surgical results. Has been walking more on the treadmill. Denies fevers, chills, or night sweats. The patient returns to the office today to discuss results. Patient denies bowel or bladder incontinence or urinary retention. Import all history . * ROS: C onstitutional: Denies C hills. D enies N ight Sweats. ? M usculoskeletal: Admits N ml Pain. G enitourinary: Denies I ncontinence. * Medical History: * Surgical History: B ack surgery 2012Carotoid artery procedure Stent placement x1 [id number]-[id number] laminectomy, PSF, L4-5 Sanchez-Felix osteotomy, bilateral pelvic fusion 07/2022Lumbar wound I & D 3-6 ACDF 01/2023 * Family History: N/A PER PT, NO FAMILY HX LISTED. * Social History: S moking History S moking Status F ormer Smoker. C onsume alcohol D o you drink alcohol? N o. E xercise regularly D o you exercise? N o. W hat is your place of residence? W here do you live? P rivate home. W orking status W hat is your working status N ot Working. M arital status M arital Status M arried. * Medications: T akingIron Chelated Vitamin B12 Vitamin D Aspirin Low Dose Magnesium atorvastatin amLODIPine doxazosin Losartan/Potassium carvedilol metFORMIN Medication List reviewed and reconciled with the patientTaking Iron Chelated Taking Vitamin B12 Taking Vitamin D Taking Aspirin Low Dose Taking Magnesium Taking atorvastatin Taking amLODIPine Taking doxazosin Taking Losartan/Potassium Taking carvedilol Taking metFORMIN Medication List reviewed and reconciled with the patient * Allergies: N .K.D.A.no[Allergies Verified] Objective: * Vitals: P ain Scale (NRS): 0, Ht: 5 ft 7 in, Wt: 176 lbs, BMI:27.56. * Examination: G eneral examination: O n examination, the patient is well-developed, well-nourished, well-groomed, alert and oriented x3, normal mood. Well healed anterior cervical incision. Reduced cervical ROM. Non tender over the cervical spine. 5/5 muscle strength bilateral upper extremities. Sensory intact upper extremities. X -ray Imaging Studies: X R C-spine AP/L obtained at [facility] and interpreted by myself reveals evidence of C3- C6 anterior instrumentation without evidence of complication. M RI Imaging Studies: Assessment: * Assessment: 1. E ncounter for other orthopedic aftercare - Z47.89 (Primary) 1. ~3 months s/p C3-C6 ACDF He is very happy with surgical outcomes as he has noted significant improvement in his balance and denies any neck pain or radicular symptoms at this time. We will see him back in 3 months for repeat evaluation. Plan: * Treatment: * Procedure Codes: 7 2039 X-ray Cervical Spine, 2 view * Preventive Medicine: MIPS Measures: # 128 BMI screening follow up plan A clovis Normal BMI Follow-up?Dietary management education, guidance, and counseling. * Follow Up: 3 Months Forms: * Images: * Sign off status: Completed true * Provider: Geetha Harris MD Date: 0 04/23/2023 Generated for Dee boland/Butch/Alyssaitting on: 0 09/08/2024 11:47 AM EDT History and Physical Notes * HPI (History of Present Illness) Category Sub-Category Detail Notes Category Not es General Info per Patient Report The patient returns to the office now 3 months s/p C3-C6 ACDF. He reports significant improvement in his balance and neck pain/radicular symptoms. He is very happy with surgical results. Has been walking more on the treadmill. Denies fevers, chills, or night sweats. The patient returns to the office today to discuss results. Patient denies bowel or bladder incontinence or urinary retention. Import all history Examination Category Sub-Category Detail Notes Category Not es General examination On exami nation, the patient is well-developed, well-nourished, well-groomed, alert and oriented x3, normal mood. Well healed anterior cervical incision. Reduced cervical ROM. Non tender over the cervical spine. 5/5 muscle strength bilateral upper extremities. Sensory intact upper extremities. X-ray Imaging Studies XR C-s pine AP/L obtained at [facility] and interpreted by myself reveals evidence of C3-C6 anterior instrumentation without evidence of complication MRI Imaging Studies
--- OUTSIDE RECORDS SUMMARY | 2023-07-23 06:20 | XMS_ITS ---
Author Organization [facility] Address [address] [place] [address] Care Team Providers Care Affiliate Marketing Coordinator Name Role Phone Gabe Harris Unavailable [phone] Patric Reese Unavailable [phone] Allergies No Known Allergies Results Component Value Reference Range Notes Cervical spine 2 v - 28087 Reviewed date:07/23/2023 11:07:04 AM Interpretation: Performing Lab: Notes/Report: Scoliosis 2v 07321 UPRIGHT A P AND LAT Reviewed date:07/26/2023 01:31:34 PM Interpretation: Performing Lab: Notes/Report: Reason For Referral Reason +++07/25/23 MEDICARE .........NOT SCHEDULED - Thoracic spine Diagnosis 1 History of arthrodes is (Z98.1) Diagnosis 2 Weakness of right lo wer extremity (R29.898) Referral Organization [facility] Referring Provider First Name Tylerearllori Referring Provider Last Name Kimberly Referring Provider Speciality Orthopedic Surgery Referred Organization [facility] Referred Address [address] [place], [id number], Procedure 1 MRI Thoracic Spine w /o Dye (37930) General Notes Neyda Tidwell 07/23/19 24 11:50:01 AM > Patient wants this done at the open unit. Patient will need valium prior to MRI., Mary Almanzar 07/24/2023 08:17:15 AM > Per Availity, Medicare is primary with both A & B coverage since 06/06/2014 to current. No part C listed. No precert required. , Faxed to [facility], Gissel Hernandez 07/24/2023 09:08:32 AM > Faxed to [facility] Amina, noted that patient needs open unit Referral Priority Routine REASON FOR VISIT CERVICAL SPINE RECHECK and bursa injections, 6 months status post ACDF C3-C6 for cervical myelopathy. 1 year status post L2-pelvis posterior spinal fusion Medications Medication SIG (Take, Route, Frequency, Duration) Notes Start Date End Date Status AMLODIPINE BESILATE 10 mg TAKE 1 TABLET BY MOUTH IN THE MORNING for 90 Days Active glipiZIDE 5 mg for 90 Days Act trinity furosemide 40 mg for 90 Days A ctive magnesium oxide 400 mg TAKE 1 TABLET BY MOUTH ONCE DAILY for 90 Days Active carvedilol 3.125 mg for 90 Days Active Atorvastatin calcium 40 MG for 90 Days Active Metoprolol Succinate ER 50 mg for 30 Days Active Social History Tobacco Use: Social History Observation Description Date Details (start date - stop date) Former Smoker NA - NA Smoking History Question Answer Notes Smoking Status Former Smoker Alcohol Screening Question Answer Notes Points 0 Interpretation Negative AUDIT-C (Standard) Question Answer Notes Did you have a drink containing alcohol in the p ast year? No Points 0 Interpretation Negative Problems Problem Type SNOMED Code ICD Code Onset Dates Problem Status W/U Status Risk Notes Problem Degeneration of lumbar intervertebral disc (40127721) Other intervertebral disc degeneration, lumbar region (M51.36) Active confirmed Problem S/P spinal fusio n (Z98.1) Active confirmed Problem [id number] Weakness of righ t lower extremity (R29.898) Active confirmed Problem 23299121 Gait instability (R26.81) Active confirmed Vital Signs Height 5 ft 7 in in 07/23/2023 Weight 176 lbs 07/23/2023 BMI 27.56 07/23/2023 Encounters Encounter Location Date Provider Diagnosis [facility] [place] [address] 07/23/2023 Patric Hill Weakness of right lo wer extremity R29.898 ; Gait instability R26.81 and S/P spinal fusion Z98.1 Assessments Encounter Date Diagnosis (ICD Code) Assessment Notes Treatment Notes Treatment Clinical Notes Section Notes 07/23/2023 Weakness of right lower extremity (ICD-10 - R29.898) 1. 1 year status post L2 to pelvis posterior spinal fusion 2. 6-month status post ACDF C3-C6 for myelopathy 3. Right lower extremity weakness Patient is a pleasant 73-year-old male who is now 1 year status post L2 to pelvis posterior spinal fusion. Complete relief of low back and radicular pains that were severe in nature. He had foot drop prior to surgery but feels it may have some worsening of those symptoms as now as needed use of brace and he has some diffuse weakness in the right leg. He is 6-month status post ACDF C3-C6 for cervical myelopathy and has had significant improvement in his balance but continues to struggle with some gait issues likely secondary to the weakness in the right leg. We discussed that with his degree of myelopathy and cord compression but there could be some permanent injury to nerves that could affect some of the strength in his leg however he could have compression in his thoracic spine as we have not had an MRI of that at this point. 07/23/2023 Gait instability (ICD-10 - R26.81) 1. 1 year status post L2 to pelvis posterior spinal fusion 2. 6-month status post ACDF C3-C6 for myelopathy 3. Right lower extremity weakness Patient is a pleasant 73-year-old male who is now 1 year status post L2 to pelvis posterior spinal fusion. Complete relief of low back and radicular pains that were severe in nature. He had foot drop prior to surgery but feels it may have some worsening of those symptoms as now as needed use of brace and he has some diffuse weakness in the right leg. He is 6-month status post ACDF C3-C6 for cervical myelopathy and has had significant improvement in his balance but continues to struggle with some gait issues likely secondary to the weakness in the right leg. We discussed that with his degree of myelopathy and cord compression but there could be some permanent injury to nerves that could affect some of the strength in his leg however he could have compression in his thoracic spine as we have not had an MRI of that at this point. 07/23/2023 S/P spinal fusion (ICD-10 - Z98.1) 1. 1 year status post L2 to pelvis posterior spinal fusion 2. 6-month status post ACDF C3-C6 for myelopathy 3. Right lower extremity weakness Patient is a pleasant 73-year-old male who is now 1 year status post L2 to pelvis posterior spinal fusion. Complete relief of low back and radicular pains that were severe in nature. He had foot drop prior to surgery but feels it may have some worsening of those symptoms as now as needed use of brace and he has some diffuse weakness in the right leg. He is 6-month status post ACDF C3-C6 for cervical myelopathy and has had significant improvement in his balance but continues to struggle with some gait issues likely secondary to the weakness in the right leg. We discussed that with his degree of myelopathy and cord compression but there could be some permanent injury to nerves that could affect some of the strength in his leg however he could have compression in his thoracic spine as we have not had an MRI of that at this point. 07/23/2023 Other Treatment discussed and agreed upon with Dr. Bernal. Discussed treatment options with the patient. I recommend MRI of the thoracic spine at [facility] for open MRI also recommend Valium 5 mg to take before the MRI as he is very nervous about this. Recommend proceeding with MRI to look for severe central stenosis to explain his right hip and lower extremity weakness. He is failed to improve with physician guided home exercise program and formal therapy and his weakness is significantly limiting his ability to ambulate significant distance. Will see him back after MRI is completed to discuss further treatment options 1. 1 year status post L2 to pelvis posterior spinal fusion 2. 6-month status post ACDF C3-C6 for myelopathy 3. Right lower extremity weakness Patient is a pleasant 73-year-old male who is now 1 year status post L2 to pelvis posterior spinal fusion. Complete relief of low back and radicular pains that were severe in nature. He had foot drop prior to surgery but feels it may have some worsening of those symptoms as now as needed use of brace and he has some diffuse weakness in the right leg. He is 6-month status post ACDF C3-C6 for cervical myelopathy and has had significant improvement in his balance but continues to struggle with some gait issues likely secondary to the weakness in the right leg. We discussed that with his degree of myelopathy and cord compression but there could be some permanent injury to nerves that could affect some of the strength in his leg however he could have compression in his thoracic spine as we have not had an MRI of that at this point. Plan Of Treatment Treatment Notes Assessment Notes Other Treatment discussed and agreed upon with Dr. Bernal. Discussed treatment options with the patient. I recommend MRI of the thoracic spine at [facility] for open MRI also recommend Valium 5 mg to take before the MRI as he is very nervous about this. Recommend proceeding with MRI to look for severe central stenosis to explain his right hip and lower extremity weakness. He is failed to improve with physician guided home exercise program and formal therapy and his weakness is significantly limiting his ability to ambulate significant distance. Will see him back after MRI is completed to discuss further treatment options Referrals Referral Date Details 07/23/2023 07/23/2023, +++07/24 MEDICARE.........NOT SCHEDULED - Thoracic spine, [address], [place], [phone], Next Appt Details Follow Up: After MRI, Reason : Progress Notes * VALERIY SANTOS GDOB:1950 (73 yo M)Acc No.[id number]:07/23/2023 Patient: Kait NANCYVALERIY Provider: Charlotte Reese PA-C :1950 A ge:73 Y S ex:Male Date:07/23/2023 Address:[address] [place], [place] [id number] Subjective: * Chief Complaints: * C ERVICAL SPINE RECHECK and bursa injections6 months status post ACDF C3-C6 for cervical myelopathy. 1 year status post L2-pelvis posterior spinal fusion * HPI: G eneral Info per Patient Report: Dictated by Patric Reese PA-C, working with Dr. Bernal Patient is a pleasant 73-year-old male who returns to the office today now 6- month status post ACDF C3-C6 for cervical myelopathy. Notes improvement in his neck pain and radicular symptoms. He has had significant improvement in his balance issues as well. He does note that he fell on May 05 off of the 3 steps and has had some neck stiffness since that time mild pain in the left is 1 year status post L2 to pelvis posterior spinal fusion and notes complete relief of his severe low back pain and radicular symptoms. He does continue to struggle with right dropfoot and has had that for about 20 years but notes that before his lumbar surgery he did not need to wear a brace he can manage the symptoms without it and since surgery he has been using a brace on the ankle. He also feels the entire right leg feels weak at times where previously did not. He does not feel this is significantly improving and feels that his legs get very tired and heavy with ambulation and he fatigues very quickly and it is limiting his ability to ambulate. He denies bowel or bladder control issues. No saddle anesthesias. Balance is significantly improved. He does have weakness in the right leg and difficulty with significant ambulation. * ROS: C onstitutional: Denies C hills. H e denies numbness and tingling in the upper or lower extremities. No fevers chills recent illnesses. No bowel or bladder control issues. No saddle anesthesias. Improved balance. Continues to struggle with gait with weakness in the right leg. * Medical History: * Surgical History: B ack surgery 2011Carotoid artery procedure Stent placement x1 [id number] laminectomy, PSF, L4-5 Sanchez-Felix osteotomy, bilateral pelvic fusion 07/2022Lumbar wound I & D -6 ACDF 01/2023 * Family History: N/A PER PT, NO FAMILY HX LISTED. * Social History: S moking History S moking Status F ormer Smoker. C onsume alcohol D o you drink alcohol? N o. A lcohol Screening P oints 0 , I nterpretation N egative.?Exercise regularly D o you exercise? N o. W hat is your place of residence? W here do you live? P rivate home. W orking status W hat is your working status N ot Working. M arital status M arital Status M arried. A MISHEL-C (Standard) D id you have a drink containing alcohol in the past year? N o, P oints 0 , I nterpretation N egative. * Medications: T akingAtorvastatin calcium 40 MG TABLET Metoprolol Succinate ER 50 mg tablet, extended release AMLODIPINE BESILATE 10 mg tablet TAKE 1 TABLET BY MOUTH IN THE MORNING glipiZIDE 5 mg tablet magnesium oxide 400 mg tablet TAKE 1 TABLET BY MOUTH ONCE DAILY carvedilol 3.125 mg tablet furosemide 40 mg tablet Medication List reviewed and reconciled with the patientTaking Atorvastatin calcium 40 MG TABLET Taking Metoprolol Succinate ER 50 mg tablet, extended release Taking AMLODIPINE BESILATE 10 mg tablet TAKE 1 TABLET BY MOUTH IN THE MORNING Taking glipiZIDE 5 mg tablet Taking magnesium oxide 400 mg tablet TAKE 1 TABLET BY MOUTH ONCE DAILY Taking carvedilol 3.125 mg tablet Taking furosemide 40 mg tablet Medication List reviewed and reconciled with the patient * Allergies: N .K.D.A.no[Allergies Verified] Objective: * Vitals: P ain Scale (NRS): 5, Ht: 5 ft 7 in, Wt: 176 lbs, BMI:27.56. * Examination: M usculoskeletal: O n inspection of his back he has healed incision no erythema. No tenderness palpation about the lumbar spine. He has 3+/5 right hip flexion compared to 5/5 on the left. 4/5 right knee extension compared to 5/5 on the left. 4+/5 right knee flexion compared to 5/5 on the left. 2/5 right ankle dorsiflexion and 4+/5 right ankle plantarflexion but 5/5 left ankle plantar and dorsiflexion. Aspect of his neck he has healed ACDF incision no erythema. Mild stiffness in the cervical spine especially rotation to the left. Minimal tenderness. Full strength in the upper extremities bilaterally. Hands are perfused and sensate. X -ray Imaging Studies: G eneral Examination: Well nourished, well developed 73-year-old male, no acute distress, mood and affect appropriate. Alert and oriented X3. 2 view x-ray cervical spine AP/lateral were obtained today personally interpreted and discussed with Dr. Bernal. Status post ACDF C3-C6 with hardware in good position. No evidence of any hardware failure. Starting to see some graft incorporation but no complete fusion yet 2 view x-rays scoliosis views of the full spine were obtained today personally interpreted and discussed with Dr. Bernal. Evidence of posterior spinal fusion L2-S1. No evidence of hardware failure or loosening. There is some DDD at L1-L2. No significant P JK appreciated. There is some positive sagittal balance some hyperkyphosis of the thoracic spine but not consistent with PJ K. . Assessment: * Assessment: 1. W eakness of right lower extremity - R29.898 (Primary) 2 . G ait instability - R26.81 3 . S /P spinal fusion - Z98.1 1. 1 year status post L2 to pelvis posterior spinal fusion 2. 6-month status post ACDF C3-C6 for myelopathy 3. Right lower extremity weakness Patient is a pleasant 73-year-old male who is now 1 year status post L2 to pelvis posterior spinal fusion. Complete relief of low back and radicular pains that were severe in nature. He had foot drop prior to surgery but feels it may have some worsening of those symptoms as now as needed use of brace and he has some diffuse weakness in the right leg. He is 6-month status post ACDF C3-C6 for cervical myelopathy and has had significant improvement in his balance but continues to struggle with some gait issues likely secondary to the weakness in the right leg. We discussed that with his degree of myelopathy and cord compression but there could be some permanent injury to nerves that could affect some of the strength in his leg however he could have compression in his thoracic spine as we have not had an MRI of that at this point. Plan: * Treatment: 2. O thers I maging: Cervical spine 2 v - 13452 (Performed Date - 07/23/2023) I maging: Scoliosis 2v 37005 UPRIGHT AP AND LAT (Performed Date - 07/26/2023) Notes: Treatment discussed and agreed upon with Dr. Bernal. Discussed treatment options with the patient. I recommend MRI of the thoracic spine at [facility] for open MRI also recommend Valium 5 mg to take before the MRI as he is very nervous about this. Recommend proceeding with MRI to look for severe central stenosis to explain his right hip and lower extremity weakness. He is failed to improve with physician guided home exercise program and formal therapy and his weakness is significantly limiting his ability to ambulate significant distance. Will see him back after MRI is completed to discuss further treatment options ? Referral To: Reason:+++07/25/23 MEDICARE.........NOT SCHEDULED - Thoracic spine * Procedure Codes: 7 2081 X-RAY EXAM ENTIRE SPI 2/3 VW, Modifiers: 26 75132 X-RAY EXAM ENTIRE SPI 2/3 VW, Modifiers: TC 88677 X-ray Cervical Spine, 2 view 26, Modifiers: 26 11288 X-ray Cervical Spine, 2 view TC, Modifiers: TC * Preventive Medicine: MIPS Measures: # 128 BMI screening follow up plan A clovis Normal BMI Follow-up?Dietary management education, guidance, and counseling. C MS139 Fall Risk S creening:?No falls in the past year. * Follow Up: A fter MRI Forms: * Images: * Sign off status: Completed true * Provider: Charlotte Reese PA-C Date: 0 07/23/2023 Generated for Dee boland/Butch/Alyssaitting on: 0 09/08/2024 11:47 AM EDT History and Physical Notes * HPI (History of Present Illness) Category Sub-Category Detail Notes Category Not es General Info per Patient Report Dictated by Patric Reese PA-C, working with Dr. Bernal Patient is a pleasant 73-year-old male who returns to the office today now 6-month status post ACDF C3-C6 for cervical myelopathy. Notes improvement in his neck pain and radicular symptoms. He has had significant improvement in his balance issues as well. He does note that he fell on May 05 off of the 3 steps and has had some neck stiffness since that time mild pain in the left is 1 year status post L2 to pelvis posterior spinal fusion and notes complete relief of his severe low back pain and radicular symptoms. He does continue to struggle with right dropfoot and has had that for about 20 years but notes that before his lumbar surgery he did not need to wear a brace he can manage the symptoms without it and since surgery he has been using a brace on the ankle. He also feels the entire right leg feels weak at times where previously did not. He does not feel this is significantly improving and feels that his legs get very tired and heavy with ambulation and he fatigues very quickly and it is limiting his ability to ambulate. He denies bowel or bladder control issues. No saddle anesthesias. Balance is significantly improved. He does have weakness in the right leg and difficulty with significant ambulation. Examination Category Sub-Category Detail Notes Category Not es Musculoskeletal On inspectio n of his back he has healed incision no erythema. No tenderness palpation about the lumbar spine. He has 3+/5 right hip flexion compared to 5/5 on the left. 4/5 right knee extension compared to 5/5 on the left. 4+/5 right knee flexion compared to 5/5 on the left. 2/5 right ankle dorsiflexion and 4+/5 right ankle plantarflexion but 5/5 left ankle plantar and dorsiflexion. Aspect of his neck he has healed ACDF incision no erythema. Mild stiffness in the cervical spine especially rotation to the left. Minimal tenderness. Full strength in the upper extremities bilaterally. Hands are perfused and sensate. X-ray Imaging Studies General Examination: Well nourished, well developed 73-year-old male, no acute distress, mood and affect appropriate. Alert and oriented X3. 2 view x-ray cervical spine AP/lateral were obtained today personally interpreted and discussed with Dr. Bernal. Status post ACDF C3-C6 with hardware in good position. No evidence of any hardware failure. Starting to see some graft incorporation but no complete fusion yet 2 view x-rays scoliosis views of the full spine were obtained today personally interpreted and discussed with Dr. Bernal. Evidence of posterior spinal fusion L2-S1. No evidence of hardware failure or loosening. There is some DDD at L1-L2. No significant P JK appreciated. There is some positive sagittal balance some hyperkyphosis of the thoracic spine but not consistent with PJ K. Consultation Request Notes Referral Date Referring Provider Referred Provider Not es 07/23/2023 Leroy-Gabe Bernal , +++ MEDICARE.........NOT SCHEDULED - Thoracic spine
--- OUTSIDE RECORDS SUMMARY | 2024-08-28 10:30 | XMS_ITS | Encounter Summary ---
Author Organization [facility] Address [address] [place] [address] Care Team Providers Care [employer] Laboratory Director Name Role Phone Ruben Andrade MD Unavailable [phone] Gabe Pena [place], [facility] [place]available [phone] Poppy Sams Unavailable Rajesh Veronica MD Unavailable [phone] Josie Bianchi [facility] Unavailable [phone] Ruben Andrade MD Primary Care Provider [phone] Reason for Visit * Reason Comments Consult PD cath placement Encounter Details Date Type Department Care Team (Late st Contact Info) Description 08/28/2024 10:30 AM EDT Consult [facility] [address] [phone] Nirmal Herrmann MD [address] [facility] [address] [place] [address] End stage renal disease (CMS/HCC) (Primary Dx) Social History Tobacco Use Types Packs/Day Years Used Date Smoking Tobacco: Never Smokeless Tobacco: Never Alcohol Use Standard Drinks/Week Comments Yes 2 (1 standard drink = 0.6 oz pure alcohol) Caffeine intake: 1-2 cups per day diet soda Social Connection and Isolation Panel [NHANES] A nswer Date Recorded Frequency of Communication with Friends and Fami ly Not on file 09/13/2023 How often do you get togethe r with friends or relatives? Three times a week 09/13/2023 Attends [employer] Not on file 09/12 Do you belong to any clubs o r organizations such as bahai groups, unions, fraternal or athletic groups, or school groups? Yes 09/13/2023 Attends Club or Organization Meetings Not on mati e 09/13/2023 Are you , , di vorced, , never , or living with a partner? 09/13/2023 PHQ-2 Answer Date Recorded Patient Health Questionnaire-2 Score 1 07/29/2024 Exercise Vital Sign Answer Date Recorde d On average, how many days pe r week do you engage in moderate to strenuous exercise (like a brisk walk)? 4 days Minutes of Exercise per Session Not on file 09/13/2023 PRAPARE - Transportation Answer Date Re corded In the past 12 months, has l ack of transportation kept you from medical appointments or from getting medications? No 10/2023 In the past 12 months, has l ack of transportation kept you from meetings, work, or from getting things needed for daily living? No 09/13/2023 Education Answer Date Recorded What is the highest level of school you have completed or the highest degree you have received? 10th grade 11/01/2022 Sex and Gender Information Value Date Recorded Sex Assigned at Not on file Legal Sex Male 6:57 PM EDT Gender Identity Not on file Sexual Orientation Not on file documented as of this encounter Last Filed Vital Signs Vital Sign Reading Time Taken Comments Blood Pressure 118/58 08/28/2024 10:58 AM EDT Pulse - - Temperature - - Respiratory Rate - - Oxygen Saturation - - Inhaled Oxygen Concentration - - Weight 77.6 kg (171 lb) 08/28/2024 10:58 AM EDT Height 170.2 cm (5' 7 ) 08/28/2024 10:58 AM EDT Body Mass Index 26.78 08/28/2024 10:58 AM EDT documented in this encounter Progress Notes * Nirmal Bustillos MD - 08/28/2024 10:30 AM EDT Images from the original note were not included. Omer Farley 1950 Omer Farley is a 74 y.o. male presents with chief complaint of Consult (PD cath placement) HPI: Mr. Omer Farley is a 74 year old male presenting for referral for peritoneal dialysis catheter placement from Dr. Sams. He has past medical history of chronic kidney disease, hypertension, asthma, carotid stenosis, GERD, and NSTEMI. He denies any prior abdominal surgery and denies any nausea, vomiting, constipation, or diarrhea. He does state that his urinary frequency has been steadily decreasing. He denies any blood in his urine. He is on aspirin 81mg for anticoagulation. SUBJECTIVE: MEDICATIONS: ALLERGIES Current Outpatient Medications Medication Instructions albuterol 2.5 mg, Nebulization, Every 6 hours PRN amLODIPine (NORVASC) 10 mg, Oral, Daily aspirin 81 mg, 3 times weekly atorvastatin (LIPITOR) 40 mg, Oral, Nightly Calcium Carbonate Antacid (CALCIUM CARBONATE PO) 1 tablet, 3 times daily with meals CHELATED IRON PO 30 mg, Twice a day (mid-day and evening) cholecalciferol (VITAMIN D-3) 50 mcg, Daily Cyanocobalamin (B-12) 500 MCG sublingual tablet 1 tablet, Daily doxazosin (CARDURA) 2 mg, 2 times daily epoetin michelle (EPOGEN,PROCRIT) 1,000 Units, See admin instructions furosemide (LASIX) 40 mg, 2 times daily glipiZIDE (GLUCOTROL) 5 mg, Oral, Daily magnesium oxide (Mag-Ox) 400 MG tablet 1 tablet, Daily metoprolol succinate XL (TOPROL-XL) 50 mg, Daily nitroglycerin (NITROSTAT) 0.4 mg, Every 5 min PRN oxygen (O2) 2 L/min, Nightly sildenafil (Revatio) 20 MG tablet Take 1 to 5 tablets as needed daily. sodium bicarbonate 650 mg, 2 times daily Allergies Allergen Reactions Gabapentin Other Reaction(s): explosive diarrhea Amlodipine Swelling Codeine Nausea And Vomiting Damion Inhibitors Other Reaction(s): cough, Other (See Comments), Unknown Other reaction(s): Other (See Comments) Cough Cough Hydrocodone-Acetaminophen Other Reaction(s): nausea vomiting Levofloxacin Pregabalin Other Reaction(s): Other Sulfamethoxazole-Trimethoprim Nausea And Vomiting PAST MEDICAL HISTORY: SOCIAL HISTORY SURGICAL HISTORY: Past Medical History: Diagnosis Date Acute and chronic respiratory failure with hypercapnia (CMS/HCC) Acute and chronic respiratory failure with hypoxia (CMS/HCC) Arthropathy, multiple sites Asthma Carotid stenosis Diabetes mellitus with renal complications ([facility]/HCC) Disorder of arteries and arterioles, unspecified Disorder of both eustachian tubes Encounter for screening colonoscopy 2013 GERD (gastroesophageal reflux disease) History of being hospitalized 07/31/2016 ER- Acute Bronchitis History of being hospitalized 01/2018 [facility] Cardiac Issues History of being hospitalized 06/2020 [facility], CAD CHF SOB 5 days 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 ([facility]) Left nephrolithiasis Lumbosacral spondylosis without myelopathy 11/07/2017 Metabolic syndrome Metabolic syndrome Microalbuminuria Mild persistent asthma without complication ([facility]) Mixed hyperlipidemia ([facility]) Moderate persistent asthma with exacerbation ([facility]) 10/24/2022 Neurogenic claudication 01/15/2019 Non-STEMI (non-ST elevated myocardial infarction) ([facility]) Obstructive sleep apnea Obstructive sleep apnea (adult) (pediatric) Personal history of medical treatment Extracranial Vascular Disease Proteinuria, unspecified Social History Tobacco Use Smoking status: Never Smokeless tobacco: Never Substance Use Topics Alcohol use: Yes Alcohol/week: 2.0 standard drinks of alcohol Types: 2 Standard drinks or equivalent per week Comment: Caffeine intake: 1-2 cups per day diet soda Drug use: Never Past Surgical History: Procedure Laterality Date BACK SURGERY 2010 Lumbar decompresion BACK SURGERY 07/19/2022 [facility] [place]. CAROTID ENDARTERECTOMY Right CAROTID STENT Right 2011 COLONOSCOPY 2014 hyperplastic polyps HEART CATH 01/2018 stent [facility] HEART CATH 09/12/2018 OTHER SURGICAL HISTORY 01/02/[address] Messina Stent then Extracranial repair REVIEW OF SYMPTOMS: Review of Systems Constitutional: Positive for unexpected weight change. Negative for fatigue and fever. Has lost 30-40 pounds over the last 6 months-year. HENT: Negative for hearing loss and trouble swallowing. Eyes: Negative for visual disturbance. Respiratory: Negative for cough, shortness of breath and wheezing. Cardiovascular: Negative for chest pain, palpitations and leg swelling. Gastrointestinal: Negative for abdominal pain, blood in stool, constipation, diarrhea, nausea and vomiting. Genitourinary: Positive for difficulty urinating. Negative for hematuria. Neurological: Negative for dizziness, syncope, weakness and numbness. OBJECTIVE: Visit Vitals Smoking Status Never Physical Exam Constitutional: Appearance: Normal appearance. Eyes: Conjunctiva/sclera: Conjunctivae normal. Cardiovascular: Rate and Rhythm: Normal rate and regular rhythm. Pulmonary: Effort: Pulmonary effort is normal. Breath sounds: Normal breath sounds. Abdominal: General: Abdomen is flat. There is no distension. Palpations: Abdomen is soft. Tenderness: There is no abdominal tenderness. Skin: General: Skin is warm and dry. Neurological: General: No focal deficit present. Mental Status: He is alert and oriented to person, place, and time. Psychiatric: Mood and Affect: Mood normal. Behavior: Behavior normal. ASSESSMENT AND PLAN: Assessment/Plan Diagnoses and all orders for this visit: End stage renal disease (CMS/HCC) Plan will be to laparoscopically place a peritoneal dialysis catheter. Procedure, benefits, risks including risks of bleeding, infection, catheter malfunction, inadequate dialysis with a peritoneal dialysis were discussed. documented in this encounter Plan of Treatment Upcoming Encounters Date Type Department Care Team (Late st Contact Info) Description 09/23/2024 11:15 AM EDT Office Visit [facility] [address] [phone] Nirmal Herrmann MD [address] [id number] documented as of this encounter Visit Diagnoses Diagnosis End stage renal disease (CMS/HCC)- Primary End stage renal disease documented in this encounter Additional Health Concerns Assessment Noted Time PHQ-9 Depression Total Score: 2 07/30/19 25 10:00 AM EDT documented as of this encounter Care Teams [employer] Laboratory Director Relationship Specialty Start Date End Date Ruben Andrade MD [address] [id number] PCP - ACO Reach 08/30/22 Ruben Andrade MD [address] [address] PCP - General Family Medicine 08/19/24 Kimberly Bernal Jr., MD [facility] [place] [address] [place] [address] Referring Physician Orthopaedic Surgery 05/16/23 Oma Sams MD [address] [place] [address] Referring Physician Nephrology 05/16/23 Rajesh Veronica MD [address] [place] [phone] Referring Physician Family Medicine 05/16/23 Josie Bianchi LSW Museum Assistant Family Medicine 09/06/23 documented as of this encounter
--- OUTSIDE RECORDS SUMMARY | 2024-09-08 11:47 | XMS_ITS | Clinical Summary ---
Author Organization [facility] Address [address] [place] [address] Care Team Providers Care Shear Grinder Operator Name Role Phone Ruben Andrade MD Primary Care Provider [phone] Allergies Active Allergy Reactions Criticality Noted Date Comments Damion Inhibitors Unknown 09/16/2013 Other reaction(s): Other (See Comments) Cough Amlodipine Unknown 05/15/2021 Codeine Nausea And Vomiting Medium 07/11/2022 Gabapentin 2022 Other reaction(s): explosive diarrhea Hydrocodone-Acetaminoph en Unknown 05/15/2021 Levofloxacin 01/12/2022 Pregabalin Other 2022 Sulfamethoxazole-Trimet hoprim Nausea And Vomiting Low 07/11/2022 Medications Medication Sig Dispensed Refills Start Date End Date Status aspirin 81 mg chewable tablet Chew 81 mg 3 (three) times a week. Active amLODIPine (Norvasc) 10 mg tablet 1 (one) time each day at the same time. 05/04/2016 Active atorvastatin (Lipitor) 40 mg tablet in the evening. Active ferrous sulfate 325 (65 Fe) MG tablet in the morning and at bedtime. Active cyanocobalamin (Vitamin B-12) 500 mcg tablet Take 1 tablet by mouth in the morning. Active multivitamin tablet,chewable Chew 1 tablet in the morning. Active nitroglycerin (Nitrostat) 0.[address] 0.4 mg under the tongue. Active cholecalciferol (Vitamin D-3) 25 MCG (1000 units) tablet Take 2 tablets by mouth in the morning. Active magnesium oxide (Mag-Ox) 400 mg (241.3 mg magnesium) tablet Take 1 tablet by mouth in the morning. 07/10/2022 Active albuterol 2.5 mg /3 mL (0.083 %) nebulizer solution Take 2.5 mg by nebulization every 6 (six) hours if needed for wheezing. Active glipiZIDE (Glucotrol) 5 mg tablet Take 5 mg by mouth. 07/27/2022 Active furosemide (Lasix) 20 mg tabletIndications: Stage 4 chronic kidney disease (CMS/HCC) Take 1 tablet (20 mg) by mouth every other day. 06/24/2023 Active Additional Information Patient taking differently: 10 mgoralDaily, Reported on 05/07/2024 sodium bicarbonate 650 mg tablet Take 650 mg by mouth twice a day. 03/23/2024 Active epoetin michelle (Epogen,Procrit) 20,000 unit/mL injection Inject 1,000 Units under the skin every 30 (thirty) days. Active doxazosin (Cardura) 2 mg tabletIndications: Primary hypertension Take 1 tablet (2 mg) by mouth two times daily. 180 tablet 3 06/29/2024 06/24/2025 Active metoprolol succinate XL (Toprol-XL) 50 mg 24 hr tabletIndications: Coronary artery disease involving sokaogon coronary artery of sokaogon heart without angina pectoris Take 1 tablet (50 mg) by mouth once daily as directed. Do not crush or chew. 90 tablet 3 06/29/2024 06/29/2025 Active Active Problems Problem Noted Date Diagnosed Date Degeneration of lumbar intervertebral disc 05/07 Gait instability 05/07/2024 History of arthrodesis 05/07/2024 Weakness of right lower extremity 05/07/2024 Hyperkalemia 12/03/2023 Hypomagnesemia 12/03/2023 Persistent microscopic hematuria 12/03/2023 Proteinuria 12/03/2023 Secondary hyperparathyroidism 12/03/2023 Overweight with body mass index (BMI) 25.0-29.9 04/23/2023 Myelopathy concurrent with a nd due to spinal stenosis of cervical region 01/17/2023 02/20/2023 Atrial enlargement, left 10/24/2022 023 Erectile dysfunction due to arterial insufficien cy 10/24/2022 02/20/2023 Former smoker, stopped smoking in distant past 0 10/24/2022 02/20/2023 Grade II diastolic dysfunction 10/24/2022 1 04/22/2022 Hypertensive heart and chron ic kidney disease with heart failure and stage 1 through stage 4 chronic kidney disease, or unspecified chronic kidney disease 10/24/2022 02/20/2023 Assessment & Plan (12/18/2023 10:34 AM EDT): HTN is well controlled Renal function stable for him and he F/U with nephrology Dr Rivera in [facility]. Continue amlodipine and metoprolol Nephrotic syndrome 10/24/2022 02/20/2023 Osteoarthritis of spine with radiculopathy, lumb ar region 10/24/2022 02/20/2023 Wound dehiscence 08/23/2022 02/20/2023 Acute posthemorrhagic anemia 07/25/2022 Stage 4 chronic kidney disease 07/25/2022 1 04/22/2022 Lumbar spondylosis 07/19/2022 02/20/2023 Coronary artery disease invo lving sokaogon coronary artery of sokaogon heart without angina pectoris 01/12/2022 Assessment & Plan (12/18/2023 10:34 AM EDT): Continue taking ASA. No current symptoms. Denies CP, dyspnea. Remains very active without limiting symptoms Continue GDMT continue risk factor modifications- heart healthy diet, regular exercise as tolerated and continue all medications. Status post coronary artery stent placement 10/2021 Essential hypertension 01/12/2022 Assessment & Plan (12/18/2023 10:29 AM EDT): Well controlled on metoprolol. Carotid artery stenosis, asymptomatic, right 10/2021 Assessment & Plan (12/18/2023 10:28 AM EDT): Following with vascular. History of myocardial infarction 01/12/2022 Stage 3b chronic kidney disease 01/12/2022 Sensorineural hearing loss, bilateral 05/15/2021 Disorder of both eustachian tubes 05/11/2021 Bilateral tinnitus 04/10/2021 Polypharmacy 10/18/2020 Kidney stone 04/25/2020 Microalbuminuria 02/22/2020 Allergic rhinitis 02/22/2020 Impotence of organic origin 01/11/2020 BPH with obstruction/lower urinary tract symptom s 04/22/2019 Abnormal digital rectal exam 04/22/2019 History of tobacco use 03/31/2019 Neurogenic claudication 01/15/2019 Lumbar radiculopathy 01/15/2019 Acquired spondylolisthesis 01/15/2019 Spinal stenosis 12/29/2018 Obesity 12/18/2018 Claustrophobia 12/18/2018 Right atrial enlargement 09/12/2018 Heart disease 09/12/2018 Stented coronary artery 01/31/2018 Type 2 diabetes mellitus 01/22/2018 Normocytic anemia 01/22/2018 Dyslipidemia 01/22/2018 Asthma 01/22/2018 Moderate persistent asthma without complication 01/22/2018 Acute non-ST segment elevation myocardial infarc tion 01/17/2018 Lumbosacral spondylosis without myelopathy 11/07 Diabetic peripheral neuropathy 11/07/2017 Chronic fatigue syndrome 09/12/2017 Acute exacerbation of moderate persistent extrin sic asthma 03/12/2017 Rosacea 02/03/2016 Restrictive lung disease 08/24/2015 Gastroesophageal reflux disease without esophagi tis 06/15/2015 Polyarthralgia 03/28/2015 Mixed hyperlipidemia 03/28/2015 Assessment & Plan (12/18/2023 10:32 AM EDT): Lipid abnormalities are stable and well controlled Continue lipitor 40 mg daily Liver function normal Diabetic renal disease 03/28/2015 Encounters Date Type Department Care Team Description 06/29/[address] [address] Danelle Rosas MA Primary hypertension; Coronary artery disease involving sokaogon coronary artery of sokaogon heart without angina pectoris 06/17/2024 Refill [place] [address] [place] [address] Blossom Atwood MA Primary hypertension from Last 3 Months Immunizations Name Administration Dates Next Due Influenza, High Dose Seasona l, Preservative Free 01/15/2020,12/22/2019,02/11/2016 Influenza, High-dose Seasona l, Quadrivalent, Preservative Free 12/19/2021,01/08/2021 Influenza, seasonal, injectable 04/06/2014 Influenza, seasonal, injecta ble, preservative free, 6 moonths & older 04/06/2014 Influenza, seasonal,quadriva lent, preservative free 05/01/2013 Influenza, trivalent, adjuvanted 12/13/2018,01/07,01/19/2017 Moderna 12 YR UP Vaccine BiValent Booster 2021,07/09/2021 Moderna SARS-CoV-2 Vaccination 02/04/2021,2020,05/16/2020 Pneumococcal Conjugate PCV 13 12/01/2018 Pneumococcal Polysaccharide PPV23 12/22/2019,03/2011,01/29/2010 Family History Medical History Relation Name Comments CABG Brother Coronary artery disease Brother Heart attack Brother CABG Father Coronary artery disease Father Heart attack Father Heart attack Paternal Grandfather Relation Name Status Comments Brother Father Paternal Grandfather Social History Tobacco Use Types Packs/Day Years Used Date Smoking Tobacco: Former Cigarettes Tobacco Cessation:Counseling Given: Not Answered Alcohol Use Standard Drinks/Week Comments Yes 0 (1 standard drink = 0.6 oz pur e alcohol) occasional [place] Safety & Environment Answer Date Rec orded Fear of Current or Ex-Partner Not on file Emotionally Abused Not on file 05/30/2023 Physically Abused Not on file 05/30/2023 Sexually Abused Not on file 05/30/2023 Physically or Sexually Abused Not on file Sex and Gender Information Value Date Recorded Sex Assigned at Not on file Gender Identity Not on file Sexual Orientation Not on file Last Filed Vital Signs Vital Sign Reading Time Taken Comments Blood Pressure 152/62 05/07/2024 9:18 AM EST Pulse 57 05/07/2024 9:18 AM EST Temperature - - Respiratory Rate - - Oxygen Saturation 97% 05/07/2024 9:18 AM EST Inhaled Oxygen Concentration - - Weight 82.6 kg (182 lb) 05/07/2024 9:18 AM EST Height 170.2 cm (5' 7 ) 05/07/2024 9:18 AM EST Body Mass Index 28.51 05/07/2024 9:18 AM EST Plan of Treatment Health Maintenance Due Date Last Done Comments CT Colonography 1949 FIT-DNA 1949 FIT 1949 FOBT 1950 Medicare Annual Wellness (AWV) 1950 Sigmoidoscopy 1950 Diabetes: Retinopathy Screening 07/06/1959 Depression Screening 1961 Adult Tetanus 07/06/1971 Zoster Vaccines (1 of 2) 07/06/1999 Fall Risk Screening 2014 Diabetes: Hemoglobin A1C 01/23/2024 10/23/2023 COVID-19 Vaccine ( season) 2024 04/02/2024, 04/02/2023, 02/03/2022, Additional history exists Colonoscopy 01/16/2027 01/16/2017 Colorectal Cancer Screening 01/16/2027 Pneumococcal Vaccine: 65+ Years Completed 12/22/2019, 12/01/2018, 01/17/2011, Additional history exists Influenza Vaccine Completed 04/02/2024, , 12/19/2021, Additional history exists HIB Vaccines Aged Out No longer eligi ble based on patient's age to complete this topic HPV Vaccines Aged Out No longer eligi ble based on patient's age to complete this topic IPV Vaccines Aged Out No longer eligi ble based on patient's age to complete this topic Meningococcal B Vaccine Aged Out No l onger eligible based on patient's age to complete this topic Meningococcal Vaccine Aged Out No isaiah juancho eligible based on patient's age to complete this topic Rotavirus Vaccines Aged Out No longer eligible based on patient's age to complete this topic Care Teams Shear Grinder Operator Relationship Specialty Start Date End Date Ruben Andrade MD [address] [place] [address] PCP - General 01/12/22
--- OUTSIDE RECORDS SUMMARY | 2024-09-08 11:47 | XMS_ITS | Encounter Summary ---
Author Organization [facility] Address [address] [place] [address] Care Team Providers Care Engraver Name Role Phone Ruben Andrade MD Primary Care Provider [phone] Ruben Andrade MD Unavailable [phone] Gabe Pena MD, [facility] Poppy Sams Unavailable Rajesh Veronica MD Unavailable [phone] Josie Bianchi [facility] Unavailable [phone] Ruben Andrade MD Primary Care Provider [phone] Encounter Details Date Type Department Care Team (Late st Contact Info) Description 05/07/2023 Orders Only [facility] [address] [place] [address] Ruben Andrade MD [address] [facility] [address] [place] [id number] Social History Tobacco Use Types Packs/Day Years Used Date Smoking Tobacco: Never Smokeless Tobacco: Never Alcohol Use Standard Drinks/Week Comments Yes 2 (1 standard drink = 0.6 oz pure alcohol) Caffeine intake: 1-2 cups per day diet soda PHQ-2 Answer Date Recorded Patient Health Questionnaire-2 Score 0 01/16/2023 Education Answer Date Recorded What is the highest level of school you have completed or the highest degree you have received? 10th grade 11/01/2022 Sex and Gender Information Value Date Recorded Sex Assigned at Not on file Legal Sex Male 6:57 PM EDT Gender Identity Not on file Sexual Orientation Not on file documented as of this encounter Plan of Treatment Upcoming Encounters Date Type Department Care Team (Late st Contact Info) Description 09/23/2024 11:15 AM EDT Office Visit [facility] [address] [facility] [address] [place] [phone] Nirmal Herrmann MD [address] [facility] [address] [place] [address] documented as of this encounter Visit Diagnoses Not on filedocumented in this encounter Care Teams Engraver Relationship Specialty Start Date End Date Ruben Andrade MD (Fax) PCP - General Family Medicine 08/28/22 08/18/24 Ruben Andrade MD [address] [place], [place] [id number] (Fax) PCP - ACO Reach 08/30/22 Ruben Andrade MD [address] [place] [address] (Fax) PCP - General Family Medicine 08/19/24 Kimberly Bernal Jr., MD [address] [place] [address] Referring Physician Orthopaedic Surgery 05/16/23 Oma Sams MD [address] [place] [address] Referring Physician Nephrology 05/16/23 Rajesh Veronica MD [address] [place] [phone] Referring Physician Family Medicine 05/16/23 Josie Bianchi LSW [facility] 09/06/23 documented as of this encounter
--- OUTSIDE RECORDS SUMMARY | 2024-09-08 11:47 | XMS_ITS | Encounter Summary ---
Author Organization [facility] Address [address] [place] [address] Care Team Providers Care Police Cadet Name Role Phone Ruben Andrade MD Primary Care Provider + [phone] Ruben Andrade MD Unavailable [phone] Gabe Pena MD, [facility] Un[facility] [phone] Poppy Sams Unavailable Rajesh Veronica MD Unavailable [phone] Josie Bianchi [facility] Unavailable [phone] Ruben Andrade MD Primary Care Provider + [phone] Encounter Details Date Type Department Care Team (Late st Contact Info) Description 01/11/2023 Clinisync Result Encounter [facility] External Department Unsolicited Provider, Generic External Data Social History Tobacco Use Types Packs/Day Years Used Date Smoking Tobacco: Never Alcohol Use Standard Drinks/Week Comments Yes 2 (1 standard drink = 0.6 oz pure alcohol) Caffeine intake: 1-2 cups per day diet soda Education Answer Date Recorded What is the [...] EDT Office Visit [facility] [facility] [address] [place] [address] Nirmal Toledo MD [address] [facility] [address] [place] [phone] documented as of this encounter Procedures Procedure Name Priority Date/Time Associated Diagnosis Comments MHPT MRSA, DNA, NASAL Routine 01/11/2023 9:56 AM EDT MHPT HEMOGLOBIN A1C Routine 01/11/2023 9 :56 AM EDT [facility] APTT Routine 01/11/2023 9:56 AM EDT ALL PROTIME/INR Routine 01/11/2023 9:56 AM EDT ALL CBC WITH AUTO DIFF Routine 01/11/2023 9:56 AM EDT ALL BASIC METABOLIC PANEL Routine 01/11/2023 9:56 AM EDT XR CHEST (2 VW) 01/11/2023 9:38 AM EDT documented in this encounter Results * (ABNORMAL) MHPT MRSA, DNA, NASAL (01/11/2023 9:56 AM EDT) [facility] MHPT SPECIMEN DESCRIPTION .NASAL SWAB MHPT MHPT MRSA, DNA, NASAL POSITIVE: MRSA DNA detected by nucleic acid amplificatio n.(A) NEG MHPT Comment: Results should be used as an adjunct to nosocomial control efforts to identify patients needing enhanced precautions. The test is not intended to identify patients with staphylococcal infections. Results should not be used to guide or monitor treatment for MRSA infections. 01/11/2023 9:56 AM EDT 01/11/2023 9:57 AM EDT Narrative CLINISYNC - 01/12/2023 10:41 AM EDT Original Ordering Provider: GABE GUERRA us Generic External Data Provider CLINLENORA F inal Result [facility] PT * MHPT HEMOGLOBIN A1C (01/11/2023 9:56 AM EDT) MHPT HEMOGLOBIN A1C 4.4 4.0 - 6.0 % MHPT MHPT ESTIMATED AVE GLUC 80 mg/dL MHPT Comment: The ADA and AACC recommend providing the estimated average glucose result to permit better patient understanding of their HBA1c result. 01/11/2023 9:56 AM EDT 01/11/2023 9:57 AM EDT Narrative CLINISYNC - 01/11/2023 7:35 PM EDT Original Ordering Provider: GABE GUERRA us Generic External Data Provider CLINLENORA F inal Result [facility] PT * (ABNORMAL) ALL BASIC METABOLIC PANEL (01/11/2023 9:56 AM EDT) MHPT NA (SODIUM) 142 135 - 144 mmol/L MHPT MHPT K (POTASSIUM) 4.9 3.7 - 5.3 mmol/L MHPT MHPT CHLORIDE 107 98 - 107 mmol/L MHPT MHPT CO2 24 20 - 31 mmol/L MHPT MHPT ANION GAP 11 9 - 17 mmol/L MHPT MHPT GLUCOSE 61(L) 70 - 99 mg/dL MHPT MHPT BUN (UREA N) 75(H) 8 - 23 mg/dL MHPT MHPT CREATININE 3.3(H) 0.7 - 1.2 mg/dL MHPT MHPT EGFR 19(L) >60 mL/min/1.7 3m2 MHPT Comment: These results are not intended for [...] following therapy that affects renal tubular secretion. MHPT BUN/CRE RATIO 23(H) 9 - 20 MHPT MHPT CALCIUM 9.3 8.6 - 10.4 mg/dL MHPT 01/11/2023 9:56 AM EDT 01/11/2023 9:57 AM EDT Narrative CLINISYNC - 01/11/2023 10:41 AM EDT [facility] Generic External Data Provider [facility]NC F inal Result Performing Organization Address [facility] Co de Phone Number CLINISYNC MHPT * [facility] APTT (01/11/2023 9:56 AM EDT) [facility] MHPT PTT 29.2 26.8 - 34.8 sec MHPT Comment: IV Heparin Therapy Range: 62.0-94.0 01/11/2023 9:56 AM EDT 01/11/2023 9:57 AM EDT Narrative CLINISYNC - 01/11/2023 10:29 AM EDT Original Ordering Provider: [facility] Generic External Data Provider CLINISYNC F inal Result Performing Organization Address [facility] de Phone Number CLINISYNC MHPT * (ABNORMAL) ALL PROTIME/INR (01/11/2023 9:56 AM EDT) [facility] MHPT PROTHROMBIN TIME 15.2(H) 11.9 - 14.8 sec MHPT MHPT INR 1.2 MHPT Comment: Therapeutic Range: Moderate Anticoagulant Intensity: INR = 2.0-3.0 High Anticoagulant Intensity: INR = 2.5-3.5 01/11/2023 9:56 AM EDT 01/11/2023 9:57 AM EDT Narrative CLINISYNC - 01/11/2023 10:29 AM EDT Original Ordering Provider: [facility] Generic External Data Provider CLINISYNC F inal Result Performing Organization Address [facility] de Phone Number CL[facility]NC MHPT * (ABNORMAL) ALL CBC WITH AUTO DIFF (01/11/2023 9:56 AM EDT) Pathologist [facility] MHPT WBC COUNT 7.4 3.5 - 11.3 k/uL MHPT MHPT RBC COUNT 3.20(L) 4.21 - 5.77 m/uL MHPT MHPT HEMOGLOBIN 9.6(L) 13.0 - 17.0 g/dL MHPT MHPT HEMATOCRIT 28.9(L) 40.7 - 50.3 % MHPT MHPT MCV 90.3 82.6 - 102.9 fL MHPT MHPT MCH 30.0 25.2 - 33.5 pg MHPT MHPT MCHC 33.2 28.4 - 34.8 g/dL MHPT MHPT RDW 13.3 11.8 - 14.4 % MHPT MHPT PLATELET COUNT 191 138 - 453 k/uL MHPT MHPT MPV 8.6 8.1 - 13.5 fL MHPT MHPT NRBC AUTOMATED 0.0 0.0 per 100 WBC MHPT 01/11/2023 9:56 AM EDT 01/11/2023 9:57 AM EDT Narrative ABDIFATAH - 01/11/2023 10:19 AM EDT Original Ordering Provider: GABE GUERRA us Generic External Data Provider [facility] F inal Result [facility] * XR CHEST (2 VW) (01/11/2023 9:38 AM EDT) Anatomical Region Laterality Modality Other 01/11/2023 9:38 AM EDT Narrative 01/11/2023 9:42 AM EDT EXAMINATION: TWO XRAY VIEWS OF THE CHEST [...] Lalo Garcia MD 01/11/23 CC Recipients: Ruben Andrade MD - Fax Rajesh Veronica MD - Fax Final result Procedure Note Radiology, Radiologist, - 01/11/2023 EXAMINATION: TWO XRAY VIEWS OF THE CHEST 01/10/2023 10:37 am COMPARISON: 04/04/2015 HISTORY: ORDERING SYSTEM PROVIDED HISTORY: Encounter for preproceduralrespiratory examination FINDINGS: The lungs are without acute focal process. There is no effusion or pneumothorax. The cardiomediastinal silhouette is stable. The osseous structures are stable. IMPRESSION: No acute process. Interpreted by: Lalo Garcia MD Signed by: Lalo Garcia MD 01/11/23 CC Recipients: Ruben Andrade MD - Fax Rajesh Veronica MD - Fax Final result Generic External Data Provider [facility] IMAG[facility] Final Result documented in this encounter Visit Diagnoses Not on filedocumented in this encounter Care Teams Police Cadet Relationship Specialty Start Date End Date Ruben Andrade MD PCP - General Family Medicine 08/28/22 08/18/24 Rbuen Andrade MD [address] [place] [phone] PCP - O [facility] 08/30/22 Ruben Andrade MD [address] [address] PCP - General Family Medicine 08/19/24 Kimberly Bernal Jr., MD [address] [place] [address] Referring Physician Orthopaedic Surgery 05/16/23 Oma Sams MD [address] [place] [address] Referring Physician Nephrology 05/16/23 Rajesh Veronica MD [address] [place] [phone] Referring Physician Family Medicine 05/16/23 Josie Bianchi LSW Director Corporate Sales Family Medicine 09/06/23 documented as of this encounter
--- OUTSIDE RECORDS SUMMARY | 2024-09-08 11:47 | XMS_ITS | Clinical Summary ---
Author Organization [facility] Address [address] [place], [place] [id number] Care Team Providers Care General Counselor Name Role Phone Barbi Unavailable Unavailable Jl Alfonso MD Unavailable [phone] Allergies Active Allergy Reactions Criticality Noted Date Comments Damion Inhibitors Other: See Comments,Unknown Low 09/16/2013 Other Reaction(s): cough, Other (See Comments), Unknown Other reaction(s): Other (See Comments) Cough Cough Cough Other reaction(s): Other (See Comments) Cough Amlodipine Swelling,Unknown Medium 05/15/2021 Codeine Vomiting Medium 07/11/2022 Gabapentin Other: See Comments High 2022 Other Reaction(s): explosive diarrhea Other reaction(s): explosive diarrhea Hydrocodone-Acetaminoph en Unknown Low 05/15/2021 Other Reaction(s): nausea vomiting Levofloxacin Other: See Comments Low 01/12/2022 Pregabalin Other: See Comments Low 2022 Other Reaction(s): Other Sulfamethoxazole-Trimet hoprim Vomiting Low 07/11/2022 Medications atorvastatin (LIPITOR) 40 mg tablet Take 40 mg by mouth once daily. 5 12/01/19 25 Active amLODIPine (NORVASC) 10 mg tablet Take 1 tablet by mouth once daily. 7 11/10/19 25 Active cholecalciferol (VITAMIN D3) 50 mcg (2,000 unit) tablet Take 50 mcg by mouth once daily. 3 Active albuterol HFA (PROVENTIL HFA, VENTOLIN HFA) 90 mcg/actuation inhaler Inhale 2 Puffs as instructed every 6 hours as needed. 5 Active aspirin, enteric coated (ASPIRIN, ENTERIC COATED) 81 mg EC tablet Take 81 mg by mouth once daily. Active cyanocobalamin (VITAMIN B-12) 500 mcg tablet Take 1 tablet by mouth every morning. Active ferrous sulfate 325 mg (65 mg iron) tablet Take 325 mg by mouth once daily. Active nitroglycerin sublingual (NITROQUICK) 0.4 mg SL tablet Dissolve 0.4 mg under the tongue every 5 minutes as needed. Active doxazosin (CARDURA) 2 mg tablet Take 2 mg by mouth two times a day. Active metoprolol succinate ER (TOPROL XL) 50 mg 24 hr tablet Take 50 mg by mouth once daily. Active sodium bicarbonate 650 mg tablet Take 650 mg by mouth two times a day. Active magnesium oxide 400 mg magnesium cap Take 1 tablet by mouth once daily. Active Encounters Date Type Department Care Team Description 06/26/2024 10:00 AM EDT Office Visit Neurology [address] [place] [address] Dave Kee MD Lumbar stenosis with neurogenic claudication (Primary Dx); Cervical spinal stenosis; Peripheral polyneuropathy; Right foot drop; Lumbar radiculopathy from Last 3 Months Social History Tobacco Use Types Packs/Day Years Used Date Smoking Tobacco: Never Assessed Sex and Gender Information Value Date Recorded Sex Assigned at Not on file Legal Sex Male 8:42 AM EST Gender Identity Not on file Sexual Orientation Not on file Last Filed Vital Signs Vital Sign Reading Time Taken Comments Blood Pressure 101/50 06/26/2024 9:44 AM EDT Pulse 54 06/26/2024 9:44 AM EDT Temperature - - Respiratory Rate - - Oxygen Saturation 99% 06/26/2024 9:44 AM EDT Inhaled Oxygen Concentration - - Weight - - Height - - Body Mass Index - - Plan of Treatment Health Maintenance Due Date Last Done Comments Anxiety Screening 07/06/1967 Depression Screening 07/06/1967 Hepatitis C Screening 07/06/1967 DTaP,Tdap,Td Vaccine (1 - Tdap) [address] Colonography 1994 Cologuard (FIT-DNA) 1994 Fecal Occult Blood 1994 Sigmoidoscopy 1994 Shingrix Vaccine (1 of 2) 07/06/1999 Colonoscopy 01/16/2018 01/16/2017 Colorectal Cancer Screening 01/16/2018 Advance Directive Discussion 04/08/2024 RSV Vaccine (1 - 1-dose 75+ series) 2024 Covid-19 Vaccine (2023-2 5 season) 2024 04/02/2024, 04/02/2023, 02/03/2022, Additional history exists Diabetes Screening 10/22/2026 10/23/2023, 1 , 01/11/2023, Additional history exists Pneumococcal Vaccine: 50+ Completed 2019, 12/01/2018, 01/17/2011, Additional history exists Influenza Vaccine Completed 04/02/2024, , 12/19/2021, Additional history exists Insurance MEDICARE [facility] MEDICARE SUPPLEMENT Care Teams General Counselor Relationship Specialty Start Date End Date Barbi Referring 06/13/21 Jl Alfonso MD [address] [place] [id number] Referring Neurology 05/21/24
--- OUTSIDE RECORDS SUMMARY | 2024-09-08 11:47 | XMS_ITS | Encounter Summary ---
Author Organization [facility] Address [address] [place] [address] Care Team Providers Care Winch Runner Name Role Phone Ruben Andrade MD Primary Care Provider + [phone] Ruben Andrade MD Unavailable [phone] Gabe Pena MD, [facility] Un[facility] [phone] Poppy Sams Unavailable Rajesh Veronica MD Unavailable [phone] Josie Bianchi [facility] Unavailable [phone] Ruben Andrade MD Primary Care Provider + [phone] Encounter Details Date Type Department Care Team (Late Contact Info) Description 12/29/2022 Clinisync Result Encounter [facility] External Department Unsolicited [...] Office Visit [facility] [address] [place] [address] Nirmal Toledo MD [address] [address] documented as of this encounter Procedures Procedure Name Priority Date/Time Associated Diagnosis Comments CT CERVICAL SPINE WO CONTRAST 12/29/2022 4:32 PM EDT documented in this encounter Results * CT CERVICAL SPINE WO CONTRAST (12/29/2022 4:32 PM EDT) Anatomical Region Laterality Modality Other 12/29/2022 4:32 PM EDT Narrative 12/29/2022 4:36 PM EDT EXAMINATION: CT OF THE CERVICAL SPINE WITHOUT [...] by: Pascale Albarado MD 12/29/22 Final result Procedure Note Radiology, Radiologist, MD - 12/29/2022 EXAMINATION: CT OF THE CERVICAL SPINE WITHOUT CONTRAST 12/25/2022 6:52 pm TECHNIQUE: CT of the cervical spine was performed without the administration of intravenous contrast. Multiplanar reformatted images are provided forreview. Automated exposure control, iterative reconstruction, and/or weightbased adjustment of the mA/kV was utilized to reduce the radiation dose to aslow as reasonably achievable. COMPARISON: None HISTORY: ORDERING SYSTEM PROVIDED HISTORY: Cervical spinal stenosis FINDINGS: BONES/ALIGNMENT: There is no acute fracture or traumatic malalignment.3.2 mm grade 1 anterolisthesis C2 on C3 is noted. DEGENERATIVE CHANGES: Diffuse significant spondylosis in the cervicalspine is noted most severe from C3 through C6 with large anterior andposterior osteophyte. Severe multilevel neural foraminal narrowing is presentC3-C4 through C6-C7. Diffuse moderate facet changes are noted. Severe canal stenosis C3-C4 is noted due to spondylosis and apparent disc protrusion. Severe canal stenosis at C4-C5 and C5-C6 due to spondylosis. Mild C6-C7 canal stenosis. SOFT TISSUES: There is no prevertebral soft tissue swelling. IMPRESSION: Advanced degenerative and degenerative disc disease without acute fractureor traumatic malalignment. Severe bilateral neural foraminal narrowingpresent C3-C4 through C6-C7. Multilevel canal stenosis severe C3-C4 throughC5-C6. Mild C6-C7 canal stenosis. Interpreted by: Pascale Albarado MD Signed by: Pascale Albarado MD 12/29/22 Final result Generic External Data Provider [facility] Final Result documented in this encounter Visit Diagnoses Not on filedocumented in this encounter Care Teams Winch Runner Relationship Specialty Start Date End Date Ruben Andrade MD (Fax) PCP - General Family Medicine 08/28/22 08/18/24 Ruben Andrade MD [address] [address] (Fax) PCP - ACO Reach 08/30/22 Ruben Andrade MD [address] [address] PCP - General Family Medicine 08/19/24 Kimberly Bernal Jr., MD [address] [place] [address] Referring Physician Orthopaedic Surgery 05/16/23 Oma Sams MD [address] [place] [address] Referring Physician Nephrology 05/16/23 Rajesh Veronica MD [address] [place] [address] Referring Physician Family Medicine 05/16/23 Josie Bianchi LSW Server Cashier Family Medicine 09/06/23 documented as of this encounter
--- OUTSIDE RECORDS SUMMARY | 2024-09-08 11:47 | XMS_ITS | Encounter Summary ---
Author Organization [facility] Address [address] [place] [address] Care Team Providers Care Retail Support Specialist Name Role Phone Ruben Andrade MD Primary Care Provider [phone] Ruben Andrade MD Unavailable [phone] [facility] Pena MD, [facility] Poppy Sams Unavailable Rajesh Veronica MD Unavailable [phone] Josie Bianchi [facility] Unavailable [phone] Ruben Andrade MD Primary Care Provider + [phone] Encounter Details Date Type Department Care Team (Late st Contact Info) Description 01/27/2024 Orders Only [facility] [address] [place] [address] Ruben Andrade MD [address] [place], [place] [address] (Fax) Nico (Primary Dx) Social History Tobacco Use Types [...] relatives? Three times a week 09/13/2023 Attends Jewish Services Not on file 09/12 Do you belong to any clubs o r organizations such as taoist groups, unions, fraternal or athletic groups, or school groups? Yes 09/13/2023 Attends Club or Organization Meetings Not on mati e 09/13/2023 Are you , , di vorced, , never , or living with a partner? 09/13/2023 PHQ-2 Answer Date Recorded Patient Health Questionnaire-2 Score 0 07/18/2023 Exercise Vital Sign Answer Date Recorde d [...] 11:15 AM EDT Office Visit [facility] [address] [address] Nirmal Herrmann MD [address] [address] documented as of this encounter Visit Diagnoses Diagnosis Rosacea- Primary documented in this encounter Additional Health Concerns Assessment Noted Time PHQ-9 Depression Total Score: 1 07/18/19 24 11:00 AM EDT documented as of this encounter Care Teams Retail Support Specialist Relationship Specialty Start Date End Date Ruben Andrade MD PCP - General Family Medicine 08/28/22 08/18/24 Ruben Andrade MD [address] [place] [address] (Fax) PCP - ACO Reach 08/30/22 Ruben Andrade MD [address] [place] [address] (Fax) PCP - General Family Medicine 08/19/24 Kimberly Bernal Jr., MD [address] [place] [address] Referring Physician Orthopaedic Surgery 05/16/23 Oma Sams MD [address] [place] [address] Referring Physician Nephrology 05/16/23 Rajesh Veronica MD [address] [place] [address] Referring Physician Family Medicine 05/16/23 Josie Bianchi LSW Rounder Hand Family Medicine 09/06/23 documented as of this encounter
--- OUTSIDE RECORDS SUMMARY | 2024-09-08 11:47 | XMS_ITS | Encounter Summary ---
Author Organization [facility] Address [address] [place] [address] Care Team Providers Care Environmental Services Supervisor Name Role Phone Ruben Andrade MD Primary Care Provider [phone] Ruben Andrade MD Unavailable [phone] Gabe Pena MD, [facility] Un[facility] [phone] Poppy Sams Unavailable Rajesh Veronica MD Unavailable [phone] Josie Bianchi [facility] Unavailable [phone] Ruben Andrade MD Primary Care Provider + [phone] Encounter Details Date Type Department Care Team (Late st Contact Info) Description 04/30/2024 Orders Only [facility] [address] [place] [address] Ruben Andrade MD [address] [place], [place] [address] (Fax) Social History Tobacco Use Types Packs/Day Years [...] relatives? Three times a week 09/13/2023 Attends Yazdanism Services Not on file 09/12 Do you belong to any clubs o r organizations such as yazidi groups, unions, fraternal or athletic groups, or [...] 11:15 AM EDT Office Visit [facility] [address] [phone] Nirmal Herrmann MD [address] [address] documented as of this encounter Visit Diagnoses Not on filedocumented in this encounter Additional Health Concerns Assessment Noted Time PHQ-9 Depression Total Score: 1 07/18/19 24 11:00 AM EDT documented as of this encounter Care Teams Environmental Services Supervisor Relationship Specialty Start Date End Date Ruben Andrade MD PCP - General Family Medicine 08/28/22 08/18/24 Ruben Andrade MD [address] [place] [address] (Fax) PCP - ACO Reach 08/30/22 Ruben Andrade MD [address] [place] [address] PCP - General Family Medicine 08/19/24 Kimberly Bernal Jr., MD [address] [place] [address] Referring Physician Orthopaedic Surgery 05/16/23 Oma Sams MD [address] [place] [address] Referring Physician Nephrology 05/16/23 Rajesh Veronica MD [address] [place] [address] Referring Physician Family Medicine 05/16/23 Josie Bianchi LSW Destination Sign Repairer Family Medicine 09/06/23 documented as of this encounter
--- OUTSIDE RECORDS SUMMARY | 2024-09-08 11:47 | XMS_ITS ---
Author Organization [facility] Address [address] [place] [address] Care Team Providers Care Hole Digger Truck Driver Name Role Phone Ruben Andrade MD Unavailable [phone] Gabe Pena MD, [facility] Unavailable [phone] Poppy Sams Unavailable Rajesh Veronica MD Unavailable [phone] Josie Bianchi Unavailable [phone] Ruben Andrade MD Primary Care Provider [phone] Chronic Care Management (CCM) Status:Enrolled (Active) Start date:09/06/2023 Enrollment date:09/13/2023 Enrollment reason:Identified by Health Plan Overview SPV VYTALIZE (NEEDS SCHEDULED FOR APPT Q3 [place]) Please assess for Care Management needs. Case Team Name Relationship Phone Josie JOSHI(Responsible Staff) [facility] [phone] Continued Care and Services Coordination
--- OUTSIDE RECORDS SUMMARY | 2024-09-08 11:47 | XMS_ITS | Patient Health Record ---
Author Organization [facility] Address [address] [place] [address] Care Team Providers Care Ell Tutor Name Role Phone Gabe Harris Unavailable [phone] Allergies No Known Allergies Reason For Referral No Information Medications Medication SIG (Take, Route, Frequency, Duration) Notes Start Date End Date Status AMLODIPINE BESILATE 10 mg TAKE 1 TABLET BY MOUTH IN THE MORNING for 90 Days Active glipiZIDE 5 mg for 90 Days Act trinity Atorvastatin calcium 40 MG for 90 Days Active Metoprolol Succinate ER 50 mg for 30 Days Active furosemide 40 mg for 90 Days A ctive magnesium oxide 400 mg TAKE 1 TABLET BY MOUTH ONCE DAILY for 90 Days Active carvedilol 3.125 mg for 90 Days Active Social History Tobacco Use: Social [...] Problem Status W/U Status Risk Notes Problem 40784607 Cervical radiculopathy (M54.12) Active confirmed Problem Cervical spinal stenosis (07908353) Cervical spinal stenosis (M48.02) Active confirmed Problem 076710525 Other spondylosi s with radiculopathy, cervical region (M47.22) Active confirmed Problem 929255993 Other spondylosi s with myelopathy, cervical region (M47.12) Active confirmed Problem 413448028 Cervical myelopa thy (G95.9) Active confirmed Problem Degeneration of lumbar intervertebral disc (01666480) Other intervertebral disc degeneration, lumbar region (M51.36) Active confirmed Problem 90827813 Essential (prima ry) hypertension (I10) Active confirmed Problem Degeneration of cervical intervertebral disc (19622269) Other cervical disc degeneration, high cervical region (M50.31) Active confirmed Problem 45820745 Disruption of external operation (surgical) wound, not elsewhere classified, subsequent encounter (T81.31XD) Active confirmed Problem 131814145 Spondylolisthesi s of lumbosacral region (M43.17) Active confirmed Problem Enthesopathy of hip region (28137392) Greater trochanteric bursitis of right hip (M70.61) Active confirmed Problem Enthesopathy of hip region (40293968) Greater trochanteric bursitis of left hip (M70.62) Active confirmed Problem 080442898 Lumbosacral spondylosis with radiculopathy (M47.27) Active confirmed Problem 09116664 Gait instability (R26.81) Active confirmed Problem Degeneration of cervical intervertebral disc (98449586) Other cervical disc degeneration at C4-C5 level (M50.321) Active confirmed Problem Degeneration of cervical intervertebral disc (65025566) Other cervical disc degeneration at C5-C6 level (M50.322) Active confirmed Problem Degeneration of cervical intervertebral disc (82628525) Other cervical disc degeneration at C6-C7 level (M50.323) Active confirmed Problem Postoperative seroma (515442396) Postprocedural seroma of a musculoskeletal structure following a musculoskeletal system procedure (M96.842) Active confirmed Problem 26292933 Dehiscence of operative wound, initial encounter (T81.31XA) Active confirmed Problem 580597999732016 Weakness of righ t lower extremity (R29.898) Active confirmed Problem 653755030 Type 2 diabetes mellitus without complication, unspecified whether custodial insulin use (E11.9) Active confirmed Problem 61215923 Gait difficulty (R26.9) Active confirmed Problem 553605123 Encounter for ot her orthopedic aftercare (Z47.89) Active confirmed Problem History of arthrodesis (357830630) S/P spinal fusion (Z98.1) Active confirmed Plan Of Treatment Pending Test Test Name Order Date EKG 06/14/2022 EKG 12/31/2022 MRI CERVICAL SPINE WO CONTRAST 3 MRI LUMBAR SPINE WO CONTRAST 08/24/2022 CT CERVICAL SPINE WO CONTRAST 08/25/2022 XR HIP 2-3 VW W PELVIS RIGHT 08/24/2022 XR LUMBAR SPINE LIMITED 07/25/2022 XR CERVICAL SPINE LIMITED 08/25/2022 MRI BRAIN WO CONTRAST 08/24/2022 EKG 12-LEAD 08/23/2022 CT LUMBAR SPINE WO CONTRAST 06/04/2022 DEXA BONE DENSITY AXIAL SKELETON 023 CT THORACIC SPINE WO CONTRAST 06/04/2022 Insurance Providers Payer Name Payer Address Payer Phone Subscriber Number Group Number Insured Name Patient Relationship to Insured Coverage Start Date Coverage End Date Medicare [address] [id number] TOM VALERIY Self - patient is the insured Medical [place] [facility] [address] [place] [address] [id number] VALERIY SANTOS Self - patient is the insured Medical (General) History Medical History History ICD Code High Blood Pressure: YES, Heart Attack: YES, Kidney failure YES, Kidney stones YES, Asthma: YES, Diabetes YES, Surgical History Surgery Date(Month/Year) C3-6 ACDF 01/2023 Back surgery 2012 Lumbar wound I & D 08/2022 L2-S1 laminectomy, PSF, L4-5 Sanchez-Felix osteotomy, bilateral pelvic fusion 07/2022 Stent placement x1 2019 Carotoid artery procedure
--- OUTSIDE RECORDS SUMMARY | 2024-09-08 11:47 | XMS_ITS | Referral Summary ---
Author Organization [facility] Address [address] [place] [address] Care Team Providers Care Dish Room Worker Name Role Phone Ruben Andrade MD Primary Care Provider [phone] Encounters Date Type Department Care Team Description 06/29/[address] [address] Danelle Rosas MA Primary hypertension; Coronary artery disease involving [place] coronary artery of [place] heart without angina pectoris 06/17/[address] [address] Blossom Atwood MA Primary hypertension from Last 3 Months Allergies Active Allergy Reactions Criticality Noted Date [...] 24 hr tabletIndications: Coronary artery disease involving [place] coronary artery of [place] heart without angina pectoris Take 1 tablet [...] he F/U with nephrology Dr Rivera in [place] monthly. Continue amlodipine and metoprolol Nephrotic syndrome 10/24/2022 02/20/2023 Osteoarthritis of spine with radiculopathy, lumb ar region 10/24/2022 02/20/2023 Wound dehiscence 08/23/2022 02/20/2023 Acute posthemorrhagic anemia 07/25/2022 Stage 4 chronic kidney disease 07/25/2022 1 04/22/2022 Lumbar spondylosis 07/19/2022 02/20/2023 Coronary artery disease invo lving [place] coronary artery of [place] heart without angina pectoris 01/12/2022 Assessment & [...] Liver function normal Diabetic renal disease 03/28/2015 Immunizations Name Administration Dates Next Due Influenza, [...] PCV 13 12/01/2018 Pneumococcal Polysaccharide PPV23 12/22/2019,03/2011,01/29/2010 Social History Tobacco Use Types Packs/Day Years [...] 05/07/2024 9:18 AM EST Plan of Treatment Not on file Care Teams Dish Room Worker Relationship Specialty Start Date End Date Ruben Andrade MD [address] [place] [address] PCP - General 01/12/22
--- OUTSIDE RECORDS SUMMARY | 2024-09-08 11:47 | XMS_ITS | Encounter Summary ---
Author Organization [facility] Address [address] [place] [address] Care Team Providers Care Lofter Name Role Phone Ruben Andrade MD Primary Care Provider [phone] Ruben Andrade MD Unavailable [phone] Gabe Pena MD, [facility] Unavailable [phone] Poppy Sams Unavailable Rajesh Veronica MD Unavailable [phone] Josie Bianchi [facility] Unavailable [phone] Ruben Andrade MD Primary Care Provider + [phone] Encounter Details Date Type Department Care Team (Late st Contact Info) Description 12/19/2023 Orders Only [facility] [address] [place] [address] [place], [place], [place] Social History Tobacco Use Types Packs/Day Years [...] relatives? Three times a week 09/13/2023 Attends Tenriism Services Not on file 09/12 Do you belong to any clubs o r organizations such as episcopalian groups, unions, fraternal or athletic groups, or [...] EDT Office Visit [facility] [address] [phone] Nirmal Herrmann MD 703 [facility] [address] [place] [address] documented as of this encounter Visit Diagnoses Not on filedocumented in this encounter Additional Health Concerns Assessment Noted Time PHQ-9 Depression Total Score: 1 07/18/19 24 11:00 AM EDT documented as of this encounter Care Teams Lofter Relationship Specialty Start Date End Date Ruben Andrade MD PCP - General Family Medicine 08/28/22 08/18/24 Ruben Andrade MD [address] [place] [address] PCP - ACO Reach 08/30/22 Ruben Andrade MD 112 [facility] 100 [place] [address] PCP - General Family Medicine 08/19/24 Kimberly Bernal Jr., MD [address] [place] [address] Referring Physician Orthopaedic Surgery 05/16/23 Oma Sams MD [address] [place] [address] Referring Physician Nephrology 05/16/23 Rajesh Veronica MD [address] [place] [address] Referring Physician Family Medicine 05/16/23 Josie Bianchi LSW Cloth Burler Family Medicine 09/06/23 documented as of this encounter
--- OUTSIDE RECORDS SUMMARY | 2024-09-08 11:47 | XMS_ITS | Encounter Summary ---
Author Organization [facility] Address [address] [place] [address] Care Team Providers Care Interior Block Wirer Name Role Phone Ruben Andrade MD Primary Care Provider [phone] Ruben Andrade MD Unavailable [phone] Gabe Pena MD, [facility] Unavailable [phone] Poppy Sams Unavailable Rajesh Veronica MD Unavailable [phone] Josie Bianchi [facility] Unavailable [phone] Ruben Andrade MD Primary Care Provider [phone] Reason for Visit * Reason Comments Med Refill Encounter Details Date Type Department Care Team (Late st Contact Info) Description 09/24/2023 Refill [facility] [address] [place] [address] Ruben Andrade MD [address] [facility] [address] [place] [address] (Fax) Benign essential HTN (CMS/HCC) Social History Tobacco Use Types Packs/Day Years [...] relatives? Three times a week 09/13/2023 Attends [employer] Not on file 09/12 Do you belong to any clubs o r organizations such as mu-ism groups, unions, fraternal or athletic groups, or [...] EDT Office Visit [facility] [address] [phone] Nirmal Herrmann MD [address] [facility] [address] [place] [address] documented as of this encounter Visit Diagnoses Diagnosis Benign essential HTN (CMS/HCC) documented in this encounter Additional Health Concerns Assessment Noted Time PHQ-9 Depression Total Score: 1 07/18/19 24 11:00 AM EDT documented as of this encounter Care Teams Interior Block Wirer Relationship Specialty Start Date End Date Ruben Andrade MD PCP - General Family Medicine 08/28/22 08/18/24 Ruben Andrade MD [address] [place] [address] (Fax) PCP - ACO Reach 08/30/22 Ruben Andrade MD [address] [place] [address] (Fax) PCP - General Family Medicine 08/19/24 Kimberly Bernal Jr., MD [address] [place] [address] Referring Physician Orthopaedic Surgery 05/16/23 Oma Sams MD [address] [place] [address] Referring Physician Nephrology 05/16/23 Rajesh Veronica MD [address] [place] [id number] Referring Physician Family Medicine 05/16/23 Josie Bianchi LSW Police Patrol Officer Family Medicine 09/06/23 documented as of this encounter
--- OUTSIDE RECORDS SUMMARY | 2024-09-08 11:47 | XMS_ITS | Encounter Summary ---
Author Organization [facility] Address [address] [place] [address] Care Team Providers Care Rehabilitation Manager Name Role Phone Ruben Andrade MD Primary Care Provider [phone] Ruben Andrade MD Unavailable [phone] Gabe Pena MD, [facility] [place] Poppy Sams Unavailable Rajesh Veronica MD Unavailable [phone] Josie Bianchi [facility] Unavailable [phone] Ruben Andrade MD Primary Care Provider [phone] Encounter Details Date Type Department Care Team (Late Contact Info) Description 11/12/2022 Abstract [facility] [address] [place] [address] Ruben Andrade MD [address] [place] [address] Social History Tobacco Use Types Packs/Day [...] Encounters Date Type Department Care Team (Late Contact Info) Description 09/23/2024 11:15 AM EDT Office Visit [facility] [facility] [address] [place] [address] Nirmal Herrmann MD 703 [facility] 150 [place], [place] [id number] documented as of this encounter Visit Diagnoses Not on filedocumented in this encounter Care Teams Rehabilitation Manager Relationship Specialty Start Date End Date Ruben Andrade MD (Fax) PCP - General Family Medicine 08/28/22 08/18/24 Ruben Andrade MD [address] [facility] [address] [place] [address] (Fax) PCP - ACO Reach 08/30/22 Ruben Andrade MD [address] [facility] [address] [place] [address] (Fax) PCP - General Family Medicine 08/19/24 Kimberly Bernal Jr., MD [address] [place] [address] Referring Physician Orthopaedic Surgery 05/16/23 Oma Sams MD [address] [place] [address] Referring Physician Nephrology 05/16/23 Rajesh Veronica MD [address] [place] [phone] Referring Physician Family Medicine 05/16/23 Josie Bianchi LSW [employer] Operator Family Medicine 09/06/23 documented as of this encounter
--- OUTSIDE RECORDS SUMMARY | 2024-09-08 11:48 | XMS_ITS | Clinical Summary ---
Author Organization [facility] Address [address] [place] [address] Care Team Providers Care Commissary Production Supervisor Name Role Phone Ruben Andrade MD Unavailable [phone] Gabe Pena MD, [facility] Unavailable [phone] Poppy Sewell Unavailable Rajesh Veronica MD Unavailable [phone] Josie Bianchi [facility] Unavailable [phone] Ruben Andrade MD Primary Care Provider [phone] Allergies Active Allergy Reactions Criticality Noted Date Comments Damion Inhibitors Low 09/16/2013 Other Reaction(s): cough, Other (See Comments), Unknown Other reaction(s): Other (See Comments) Cough Cough Amlodipine Swelling Medium 10/24/2022 Codeine Nausea And Vomiting Medium 07/11/2022 Gabapentin High 10/24/2022 Other Reaction(s): explosive diarrhea Hydrocodone-Acetaminoph en Low 05/15/2021 Other Reaction(s): nausea vomiting Levofloxacin Low 01/12/2022 Pregabalin Low 2022 Other Reaction(s): Other Sulfamethoxazole-Trimet hoprim Nausea And Vomiting Low 07/11/2022 Medications aspirin 81 MG EC tablet Take 81 mg by mouth 3 (three) times a week Active cholecalciferol (Vitamin D-3) 50 MCG (1999) tablet Take 50 mcg by mouth Daily 08/29/19 Active epoetin michelle (Epogen,Procrit) 12690 UNIT/ML injection Inject 1,000 Units under the skin See administration instructions Every two weeks Active nitroglycerin (Nitrostat) 0.[address] 0.4 mg under the tongue every 5 (five) minutes if needed for chest pain Active metoprolol succinate XL (Toprol-XL) 50 MG 24 hr tablet Take 50 mg by mouth Daily Do not crush or chew. Active magnesium oxide (Mag-Ox) 400 MG tablet Take 1 tablet by mouth Daily 10/28/19 Active sodium bicarbonate 650 MG tablet Take 650 mg by mouth in the morning and 650 mg before bedtime. 03/23/20 24 Active albuterol (2.5 MG/3ML) 0.083% nebulizer solutionIndicati ons:Moderate persistent asthma without complication (CMS/HCC) Take 3 mL (2.5 mg) by nebulization every 6 (six) hours if needed for shortness of breath 300 mL 2 05/13/19 025 Active amLODIPine (Norvasc) 10 MG tabletIndication s:Primary hypertension (CMS/HCC) Take 1 tablet (10 mg) by mouth Daily 90 tablet 1 05/13/19 25 025 Active glipiZIDE (Glucotrol) 5 MG tabletIndication s:Type 2 diabetes mellitus with stage 4 chronic kidney disease, without long-term current use of insulin (CMS/HCC) Take 1 tablet (5 mg) by mouth Daily 90 tablet 1 05/13/19 25 025 Active sildenafil (Revatio) 20 MG tabletIndication s:Erectile dysfunction due to arterial insufficiency Take 1 to 5 tablets as needed daily. 90 tablet 1 05/13/19 25 Active furosemide (Lasix) 80 MG tablet Take 40 mg by mouth in the morning and 40 mg before bedtime. 06/02/19 25 Active atorvastatin (Lipitor) 40 MG tabletIndication s:Hyperlipidemia associated with type 2 diabetes mellitus (CMS/HCC) Take 1 tablet (40 mg) by mouth at bedtime 06/03/19 25 025 Active Cyanocobalamin (B-12) 500 MCG sublingual tabletIndication s:Vitamin B12 Def[address] 1 tablet under the tongue Daily Active CHELATED IRON PO Take 30 mg by mouth at noon and 30 mg in the evening. Active oxygen (O2) gas Inhale 2 L/min at bedtime via nasal canula and as needed [facility] Active Calcium Carbonate Antacid (CALCIUM CARBONATE PO) Take 1 tablet by mouth in the morning and 1 tablet at noon and 1 tablet in the evening. Take with meals. Calcium Carbonate 200 mg Calcium 500 mg, chewable. 06/03/19 25 Active glucose blood (True Metrix Blood Glucose Test) test stripIndications :Type 2 diabetes mellitus with stage 4 chronic kidney disease, without long-term current use of insulin (CMS/HCC) Twice daily and as needed 200 each 3 08/19/19 24 025 doxazosin (Cardura) 2 MG tablet Take 2 mg by mouth in the morning and 2 mg before bedtime. 03/30/20 24 025 Discontin ued(Thera py completed ) Active Problems Problem Noted Date Diagnosed Date End stage renal disease 08/28/2024 Stage 5 chronic kidney disease not on chronic di alysis 06/03/2024 Hyperkalemia 06/03/2024 Type 2 diabetes mellitus wit h stage 5 chronic kidney disease not on chronic dialysis, without long-term current use of insulin 07/26/2023 Hypertensive kidney disease with stage 5 chronic kidney disease, not on chronic dialysis 05/10/2023 Overweight with body mass index (BMI) 25.0-29.9 04/23/2023 Myelopathy concurrent with a nd due to spinal stenosis of cervical region 01/17/2023 Atrial enlargement, left 10/24/2022 Coronary artery disease invo lving beaver coronary artery of beaver heart without angina pectoris 10/24/2022 Overview (07/26/2023): CAD- 01/17/18 EPHRAIM Ramus, 50% mid LAD and 70% ostium/ and proximal Diag, 40% proximal RCA Erectile dysfunction due to arterial insufficien cy 10/24/2022 Former smoker, stopped smoking in distant past 0 10/24/2022 Grade II diastolic dysfunction 10/24/2022 Nephrotic syndrome 10/24/2022 Anemia in chronic kidney disease 10/24/2022 Osteoarthritis of spine with radiculopathy, lumb ar region 10/24/2022 Stented coronary artery 10/24/2022 History of myocardial infarction 01/12/2022 Bilateral tinnitus 04/10/2021 Polypharmacy 10/18/2020 Uric acid kidney stone 04/25/2020 Allergic rhinitis 02/22/2020 Impotence of organic origin 01/11/2020 Benign prostatic hyperplasia without urinary obs truction 02/18/2019 Acquired spondylolisthesis 01/15/2019 Lumbar radiculopathy 01/15/2019 Claustrophobia 12/18/2018 Cardiomegaly 09/12/2018 Right atrial enlargement 09/12/2018 Moderate persistent asthma without complication 01/22/2018 Carotid artery stenosis, asymptomatic, right Overview (10/24/2022): s/p stents Diabetic peripheral neuropathy 11/07/2017 Chronic fatigue syndrome 09/12/2017 Rosacea 02/03/2016 Carotid stenosis, bilateral 12/13/2015 Restrictive lung disease 08/24/2015 Gastroesophageal reflux disease without esophagi tis 06/15/2015 Primary hypertension 03/28/2015 Hyperlipidemia associated with type 2 diabetes m ellitus 03/28/2015 Polyarthralgia 03/28/2015 Resolved Problems Problem Noted Date Diagnosed Date Resolved Date Hypertensive heart and chron ic kidney disease with heart failure and stage 1 through stage 4 chronic kidney disease, or unspecified chronic kidney disease 10/24/2022 05/10/2023 Moderate persistent asthma with exacerbation 07/26/2023 Acute posthemorrhagic anemia 07/25/2022 05/10/2023 Anemia of chronic renal fail ure, stage 4 (severe) 07/25/2022 04/23/2023 Status post coronary artery stent placement 01/12/2022 07/26/2023 Chronic kidney disease, stage 3b (HCC) 02/22/2020 05/10/2023 Microalbuminuria 02/22/2020 05/10/2023 History of tobacco use 03/31/201910/30 Neurogenic claudication 01/15/2019 0412/2023 Obesity 12/18/2018 01/14/2023 Atherosclerosis of coronary artery without angina pectoris 01/31/2018 01/17/2023 Dyslipidemia 01/22/2018 10/30/2022 Type 2 diabetes mellitus 01/22/201805/2023 Acute non-ST segment elevati on myocardial infarction 01/17/2018 01/17/2023 Coronary arteriosclerosis 01/17/2018 Overview (10/24/2022): CAD- 01/17/18 EPHRAIM Ramus, 50% mid LAD and 70% ostium/ and proximal Diag, 40% proximal RCA Lumbosacral spondylosis without myelopathy 11/07/2017 07/26/2023 Diabetic renal disease 03/28/201505/10 Encounters Date Type Department Care Team Description 09/03/2024 Travel 09/01/2024 Patient Outreach [facility] [address] [place] [address] Joise Bianchi LSW 08/28/2024 10:30 AM EDT Consult [facility] [address] [place] [address] Nirmal Herrmann MD End stage renal disease (CMS/HCC) (Primary Dx) 08/28/2024 Travel 08/21/2024 Clinisync Result Encounter [facility] External Department Unsolicited Provider, Generic External Data 08/19/2024 Travel 08/12/2024 Clinisync Result Encounter [facility] External Department Unsolicited Provider, Generic External Data 07/30/2024 Patient Outreach [facility] [address] [place] [address] Josie Bianchi LSW 07/29/2024 11:00 AM EDT Office Visit [facility] [address] [place] [id number] Ruben Andrade MD Encounter for Medicare annual wellness exam (Primary Dx); Advance directive discussed with patient; Encounter for screening for other disorder; Screening for alcohol problem; Former smoker, stopped smoking in distant past; Overweight with body mass index (BMI) 25.0-29.9; Diabetic peripheral neuropathy (CMS/HCC); Myelopathy concurrent with and due to spinal stenosis of cervical region (CMS/HCC); Moderate persistent asthma without complication (CMS/HCC); Coronary artery disease involving beaver coronary artery of beaver heart without angina pectoris (CMS/HCC); Primary hypertension (CMS/HCC); Hypertensive kidney disease with stage 5 chronic kidney disease, not on chronic dialysis (CMS/HCC); Stage 5 chronic kidney disease not on chronic dialysis (CMS/HCC); Hyperlipidemia associated with type 2 diabetes mellitus ([facility]/HCC); Type 2 diabetes mellitus with stage 5 chronic kidney disease not on chronic dialysis, without long-term current use of insulin ([facility]/HCC) 07/29/2024 Orders Only [facility] [address] [place] [address] Ruben Andrade MD 07/29/2024 Bamboo flowsheet [facility] [address] [place] [address] Ruben Andrade MD 07/29/2024 Travel 07/06/2024 Clinisync Result Encounter [facility] External Department Unsolicited Provider, Generic External Data 06/30/2024 Patient Outreach [facility] [address] [place] [address] Josie Bianchi LSW 06/18/2024 Clinisync Result Encounter [facility] External Department Unsolicited Provider, Generic External Data 06/18/2024 Patient Outreach [facility] [address] [place] [address] Josie Bianchi LSW 06/11/2024 Refill [facility] [address] [place] [address] Ruben Andrade MD Primary hypertension ([facility]) 06/09/2024 10:00 AM EST Office Visit [facility] [address] [place] [address] Ruben Andrade MD Acute kidney injury ([facility]/HCC) (Primary Dx); Acute hypoxic respiratory failure ([facility]/HCC); Acute on chronic diastolic ACC/AHA stage C congestive heart failure ([facility]/HCC); Hyperkalemia; Anemia in stage 4 chronic kidney disease ([facility]/HCC); Type 2 diabetes mellitus with stage 4 chronic kidney disease, without long-term current use of insulin ([facility]); Stage 4 chronic kidney disease ([facility]/HCC); Former smoker, stopped smoking in distant past; Encounter for examination following treatment at hospital 06/09/2024 Bamboo flowsheet [facility] [address] [place] [address] Ruben Andrade MD 06/09/2024 Travel 06/08/2024 Clinisync Result Encounter [facility] External Department Unsolicited Provider, Generic External Data from Last 3 Months Immunizations Immunization Administration Dates Next Due Influenza, High Dose Seasona l, Preservative Free 12/19/2021,01/15/2020,01/19/2017,02/10 Influenza, High-dose Seasona l, Quadrivalent, Preservative Free 12/19/2021,01/08/2021,01/14/2020 Influenza, Seasonal, Quadriv alent, Adjuvanted 03/20/2023 Influenza, Unspecified 04/02/2024 Influenza, recombinant, quad rivalent, injectable, preservative free 12/22/2019 Influenza, seasonal, injectable 04/06/2014 Influenza, seasonal, injecta ble, preservative free 04/06/2014 Influenza, seasonal, intrade rmal, preservative free 05/01/2013 Influenza, trivalent, adjuvanted 12/13/2018,01/07,01/19/2017 Moderna Bivalent Booster Vaccination 02/03/2022 Moderna SARS-CoV-2 Booster Vaccination ,02/03/2021 Moderna SARS-CoV-2 Vaccination ,02/04/2021,06/14/2020,06/13,05/16/2020,05/15/2020 Pneumococcal Conjugate PCV 13 12/01/2018 Pneumococcal Polysaccharide PPSV23 12/22/2019,,01/29/2010 SARS-CoV-2, Unspecified 02/03/2022 Family History Medical History Relation Name Comments Breast cancer Daughter sarcoma Daughter Heart disease Father Cancer Sibling Relation Name Status Comments Brother 2 brothers Daughter 2 daughters Father Mother Sibling Other Sister 2 sisters Social History Tobacco Use Types Packs/Day Years Used Date Smoking Tobacco: Never Smokeless Tobacco: Never Tobacco Cessation:Counseling Given: Yes Alcohol Use Standard Drinks/Week Comments Yes 2 (1 standard drink = 0.6 oz pure alcohol) Caffeine intake: 1-2 cups per day diet soda Social Connection and Isolation Panel [NHANES] A nswer Date Recorded Frequency of Communication with Friends and Fami ly Not on file 09/13/2023 How often do you get togethe r with friends or relatives? Three times a week 09/13/2023 Attends [employer] Not on file 09/12 Do you belong to any clubs o r organizations such as samaritan groups, unions, fraternal or athletic groups, or [...] Pressure 118/58 08/28/2024 10:58 AM EDT Pulse 61 07/29/2024 11:00 AM EDT Temperature - - Respiratory Rate - - Oxygen Saturation 98% 07/29/2024 11:00 AM EDT Inhaled Oxygen Concentration - - Weight 77.6 kg (171 lb) 08/28/2024 10:58 AM EDT Height 170.2 cm (5' 7 ) 08/28/2024 10:58 AM EDT Body Mass Index 26.78 08/28/2024 10:58 AM EDT Plan of Treatment Upcoming Encounters Date Type Department Care Team (Late st Contact Info) Description 09/23/2024 11:15 AM EDT Office Visit [facility] [address] [facility] [address] [place] [address] Nirmal Herrmann MD [address] [facility] [address] [place] [address] Health Maintenance Due Date Last Done Comments CT Colonography 1949 FIT-DNA 1949 FIT 1950 FOBT 1950 Sigmoidoscopy 1950 Diabetes: Hemoglobin A1C 04/24/2024 024, 01/11/2023, 10/24/2022, Additional history exists Diabetes: Urine Protein Screening 03/01/2025 03/01/2024, 07/12/2022, 05/07/2022, Additional history exists Diabetes: Retinopathy Screening 02/09/2026 02/10/2024, 06/08/2022, 02/02/2021, Additional history exists Colonoscopy 01/16/2027 01/16/2017, 10/14/2013 Colorectal Cancer Screening 01/16/2027 Pneumococcal Vaccine: 65+ Years Completed 12/22/2019, 12/01/2018, 01/17/2011, Additional history exists Influenza Vaccine Completed 04/02/2024, , 12/19/2021, Additional history exists Procedures Procedure Name Priority Date/Time Associated Diagnosis Comments ALL RENAL FUNCTION PANEL Routine 08/21/2024 11:45 AM EDT [facility] CBC WITH PLATELET NO DIFFERENTIAL Routine 08/21/2024 11:45 AM EDT [facility] PTH, INTRAOPERATIVE Routine 08/12/2024 11:02 AM EDT ALL RENAL FUNCTION PANEL Routine 08/12/2024 11:02 AM EDT TB[facility] VITAMIN D 25 [place] Routine 08/12/2024 1 1:02 AM EDT [facility] FERRITIN Routine 08/12/2024 11:02 AM EDT METRO IRON AND TIBC Routine 08/12/2024 1 1:02 AM EDT [facility] CBC WITH PLATELET NO DIFFERENTIAL Routine 08/12/2024 11:02 AM EDT [facility] PTH, INTRAOPERATIVE Routine 07/06/2024 2:49 PM EDT TB[facility] VITAMIN D 25 [place] Routine 07/06/2024 2 :49 PM EDT [facility] FERRITIN Routine 07/06/2024 2:49 PM EDT [facility] CBC WITH PLATELET NO DIFFERENTIAL Routine 07/06/2024 2:49 PM EDT ALL MAGNESIUM Routine 07/06/2024 2:49 PM EDT ALL RENAL FUNCTION PANEL Routine 07/06/2024 2:49 PM EDT ALL RENAL FUNCTION PANEL Routine 06/18/2024 11:28 AM EDT [facility] FERRITIN Routine 06/08/2024 4:02 PM EST METRO IRON AND TIBC Routine 06/08/2024 4 :02 PM EST ALL RENAL FUNCTION PANEL Routine 06/08/2024 4:02 PM EST [facility] CBC WITH PLATELET NO DIFFERENTIAL Routine 06/08/2024 4:02 PM EST DIABETIC RETINOPATHY SCREENING - OU - BOTH EYES Routine 02/10/2024 1:21 PM EST HEMOGLOBIN A1C Routine 10/23/2023 9:36 AM EDT Diabetic peripheral neuropathy (CMS/HCC) Type 2 diabetes mellitus with stage 4 chronic kidney disease, without long-term current use of insulin (CMS/HCC) URINE T PROTEIN CREAT RATIO Routine 07/12/2022 COLONOSCOPY Routine 01/16/2017 12:00 PM EDT Encounter for screening for malignant neoplasm of colon Other specified counseling Morbid (severe) obesity due to excess calories (CMS/HCC) Other specified symptoms and signs involving the circulatory and respiratory systems Encounter for screening for malignant neoplasm of prostate Encounter for general adult medical examination without abnormal findings from Last 3 Months or Most Recently Relevant to Health Maintenance Results * (ABNORMAL) [facility] CBC WITH PLATELET NO DIFFERENTIAL (08/21/2024 11:45 AM EDT) Only the most recent of4 resultswithin the time period is included. TB[facility] WBC 7.5 4.0 - 11.0 10 3/uL TBH TBH RBC 2.79(L) 4.70 - 6.10 10 6/uL TBH TBH HGB 8.8(L) 14.0 - 18.0 g/dL TBH TBH HCT 25.7(L) 42.0 - 54.0 % TBH TBH MCV 92.1 80.0 - 94.0 fL TBH TBH MCH 31.5 25.9 - 34.0 pg TBH TBH MCHC 34.2 29.9 - 35.2 g/dL TBH TBH RDW 13.2 11.0 - 15.0 % TBH TBH PLT 162 150 - 450 10 3/uL TBH TBH MPV 9.2(L) 9.5 - 13.5 fL [facility] 08/21/2024 11:4 5 AM EDT 08/21/2024 11:46 AM EDT Narrative [facility] - 08/21/2024 12:12 PM EDT us Generic External Data Provider [facility] F [facility]al [facility] * (ABNORMAL) ALL RENAL FUNCTION PANEL (08/21/2024 11:45 AM EDT) Only the most recent of5 resultswithin the time period is included. SODIUM 142 136 - 145 mmol/L TB[facility] POTASSIUM 4.7 3.5 - 5.1 mmol/L [facility] CHLORIDE 106 98 - 107 mmol/L TBH CARBON DIOXIDE 26.3 21.0 - 32.0 mmol/L TBH ANION GAP 14.4 TBH GLUCOSE 94 74 - 106 mg/dL [facility] BLOOD UREA NITROGEN 101.0(HH) 7.0 - 18.0 mg/dL [facility] Comment:RESULTS CALLED TO DR Jen SEWELL CREATININE 4.71(H) 0.70 - 1.30 mg/dL TBH TBH EGFR-AF BELIZEAN 15(L) >=60 mL/min/1.7 3m 2 TBH TBH EGFR-NON AF BELIZEAN 12(L) >=60 mL/min/1.7 3m 2 TBH BUN CREATININE RATIO 21.4 TBH CALCIUM 8.6 8.5 - 10.1 mg/dL [facility] PHOSPHORUS 3.9 2.6 - 4.7 mg/dL TBH ALBUMIN LEVEL 3.5 3.4 - 5.0 g/dL [facility] 08/21/2024 11:4 5 AM EDT 08/21/2024 11:46 AM EDT Narrative [facility] - 08/21/2024 1:10 PM EDT Generic External Data Provider [facility]IN[facility]NC F inal Result Performing Organization Address [facility] Co de Phone Number [facility] * [facility] VITAMIN D 25 [place] (08/12/2024 11:02 AM EDT) Only the most recent of2 resultswithin the time period is included. VITAMIN D 41.6 ng/mL [facility] Comment: <20 ng/mL Vit D deficient 20-<30 ng/mL Vit D insufficient 30-100 ng/mL Vit D sufficient >100 ng/mL Potential Toxicity 08/12/2024 11:0 2 AM EDT 08/12/2024 11:05 AM EDT Narrative [facility] - 08/12/2024 12:44 PM EDT Generic External Data Provider [facility] F [facility]al [facility] * (ABNORMAL) METRO IRON AND TIBC (08/12/2024 11:02 AM EDT) Only the most recent of2 resultswithin the time period is included. TBH IRON 87.0 65.0 - 175.0 ug/dL TBH TBH TOTAL IRON BINDING CAPACITY 185.0(L) 250.0 - 450.0 ug/dL TBH TBH PERCENT IRON SATURATION 47.0 % [facility]H 08/12/2024 11:0 2 AM EDT 08/12/2024 11:05 AM EDT Narrative [facility] - 08/12/2024 12:17 PM EDT Generic External Data Provider [facility] F inal Result Performing Organization Address [facility] Co de Phone Number [facility] TB * (ABNORMAL) [facility] PTH, INTRAOPERATIVE (08/12/2024 11:02 AM EDT) Only the most recent of2 resultswithin the time period is included. PTH, INTACT 144(A) 15 - 65 pg/mL TBH Comment: Performed at: - [facility] [id number] Smasher: Venu Hector PhD, Phone: [phone] 08/12/2024 11:0 2 AM EDT 08/12/2024 11:05 AM EDT Narrative [facility] - 08/13/2024 12:08 PM EDT Generic External Data Provider [facility] F inal Result Performing Organization Address [facility] Co de Phone Number [facility] TB * (ABNORMAL) [facility] FERRITIN (08/12/2024 11:02 AM EDT) Only the most recent of3 resultswithin the time period is included. FERRITIN 497.0(H) 26.0 - 388.0 ng/mL [facility] 08/12/2024 11:0 2 AM EDT 08/12/2024 11:05 AM EDT Narrative [facility] - 08/12/2024 12:44 PM EDT Generic External Data Provider [facility] F inal Result [facility] * (ABNORMAL) ALL MAGNESIUM (07/06/2024 2:49 PM EDT) MAGNESIUM 2.5(H) 1.8 - 2.4 mg/dL [facility] 07/06/2024 2:49 PM EDT 07/06/2024 2:51 PM EDT Narrative [facility] - 07/06/2024 3:28 PM EDT Generic External Data Provider [facility] Po inal Result Performing Organization Address [facility] Co de Phone Number [facility] * Diabetic Retinopathy Screening - OU - Both Eyes (02/10/2024 1:21 PM EST) Anatomical Region Laterality Modality Head Other Ruben Andrade MD OPHTH PHOTOGRAPHY Final Resu lt * Hemoglobin A1c (10/23/2023 9:36 AM EDT) Hemoglobin A1C 5.3 <5.7 % of total Hgb [facility] Comment: For the purpose of screening for the presence of diabetes: <5.7% Consistent with the absence of diabetes 5.7-6.4% Consistent with increased risk for diabetes (prediabetes) > or =6.5% Consistent with diabetes This assay result is consistent with a decreased risk of diabetes. Currently, no consensus exists regarding use of hemoglobin A1c for diagnosis of diabetes in children. According to [place] Diabetes Association (ADA) guidelines, hemoglobin A1c <7.0% represents optimal control in non- diabetic patients. Different metrics may apply to specific patient populations. Standards of Medical Care in Diabetes(ADA). This test was performed on the Cassidy rafi c503 platform. Effective 03/25/23, a change in test platforms from the [employer] Block Piler to the [employer]idy rafi c503 may have shifted HbA1c results compared to historical results. Based on laboratory validation testing conducted at [facility], the Cassidy platform relative to the Quinones platform had an average increase in HbA1c value of < or = 0.3%. This difference is within accepted variability established by the National Glycohemoglobin Standardization Program. Note that not all individuals will have had a shift in their results and direct comparisons between historical and current results for testing conducted on different platforms is not recommended. Blood Venous blood specimen / Unknown 10/23/2023 9:36 AM EDT 10/23/2023 3:41 PM EDT Narrative [facility] - 10/24/2023 4:19 AM EDT FASTING:YES FASTING: YES Resulting Agency Comment Performing Organization Information Site ID: QPT Name: [facility] Address: [address] [place] [address], [address] [place] [id number] Director: Sivakumar Trammell MD Ruben Andrade MD LAB BLOOD ORDERABLES Final R esult Performing Organization Address [facility] Co de Phone Number [facility] * (ABNORMAL) URINE T PROTEIN CREAT RATIO (07/12/2022) PROTEIN, URINE 901.3(HH) <=12.0 [facility] URINE CREAT 124.19 20.00 - 300.00 [facility] UR PROT CREAT RAT 7.26 [facility] PERFORMING LAB: see note [facility] Comment:[facility] - [address] [address] ,Ext. [phone] 07/12/2022 Ruben Andrade MD [facility] Final Result Performing Organization Address [facility] Co de Phone Number [facility] * Colonoscopy (01/16/2017 12:00 PM EDT) Anatomical Region Laterality Modality Endoscopy 01/16/2017 12:0 0 PM EDT Narrative 01/16/2017 12:00 PM EDT PERFORMED AT [facility] LOCATION:[id number] Normal Procedure Note CONVERSION, GENERIC - 08/23/2022 PERFORMED AT [facility] LOCATION:[id number] Normal Justa A Sheri [employer]ED [employer] ENDOSCOPY PROCEDURE ORD ERABLES Final Result from Last 3 Months or Most Recently Relevant to Health Maintenance Insurance [place] Care Teams Commiss[employer] Production Supervisor Relationship Specialty Start Date End Date Ruben Andrade MD [address] [address] PCP - ACO Reach 08/30/22 Ruben Adnrade MD [address] [address] PCP - General Family Medicine 08/19/24 Kimberly Bernal Jr., MD [address] [place] [address] Referring Physician Orthopaedic Surgery 05/16/23 Oma Sewell MD [address] [place] [address] Referring Physician Nephrology 05/16/23 Rajesh Veronica MD [address] [place] [id number] Referring Physician Family Medicine 05/16/23 Josie Bianchi LSW [facility] 09/06/23
--- OUTSIDE RECORDS SUMMARY | 2024-09-08 11:48 | XMS_ITS | Encounter Summary ---
Author Organization [facility] Address [address] [place] [address] Care Team Providers Care Trench Pipe Layer Name Role Phone Ruben Andrade MD Unavailable [phone] Gabe Pena MD, [facility] + [phone] Poppy Sams Unavailable Rajesh Veronica MD Unavailable [phone] Josie Bianchi [facility] Unavailable [phone] Ruben Andrade MD Primary Care Provider + [phone] Encounter Details Date Type Department Care Team (Latest Contact Info) Description 09/03/2024 Travel Social History Tobacco Use Types Packs/Day Years [...] relatives? Three times a week 09/13/2023 Attends Mu-Ism Services Not on file 09/12 Do you belong to any clubs o r organizations such as zoroastrianism groups, unions, fraternal or athletic groups, or [...] EDT Office Visit [facility] [address] [address] Nirmal Herrmann MD [address] [address] documented as of this encounter Visit Diagnoses Not on filedocumented in this encounter Additional Health Concerns Assessment Noted Time PHQ-9 Depression Total Score: 2 07/30/19 25 10:00 AM EDT documented as of this encounter Care Teams Trench Pipe Layer Relationship Specialty Start Date End Date Ruben Andrade MD [address] [address] PCP - ACO Reach 08/30/22 Ruben Andrade MD [address] [address] PCP - General Family Medicine 08/19/24 Kimberly Bernal Jr., MD [facility] [place] [address] [place] [address] Referring Physician Orthopaedic Surgery 05/16/23 Oma Sams MD [facility] [place] [address] [place] [address] Referring Physician Nephrology 05/16/23 Rajesh Veronica MD [address] [place] [phone] Referring Physician Family Medicine 05/16/23 Josie Bianchi LSW Scoreboard Operator Family Medicine 09/06/23 documented as of this encounter
--- OUTSIDE RECORDS SUMMARY | 2024-09-08 11:48 | XMS_ITS | Encounter Summary ---
Author Organization [facility] Address [address] [place] [address] Care Team Providers Care Glass Ribbon Machine Operator Name Role Phone Ruben Andrade MD Unavailable [phone] Gabe Pena MD, [facility] [place] Un[facility] [phone] Poppy Sams Unavailable Rajesh Veronica MD Unavailable [phone] Josie Bianchi Unavailable [phone] Ruben Andrade MD Primary Care Provider [phone] Encounter Details Date Type Department Care Team (Late st Contact Info) Description 09/01/2024 Patient Outreach [facility] [address] [place] [address] Josie Bianchi LSW Social History Tobacco Use Types Packs/Day Years [...] any clubs o r organizations such as mandaeism groups, unions, fraternal or athletic groups, or [...] on file documented as of this encounter Progress Notes * Josie Bianchi, CMM PROGRAMMER - 09/01/2024 3:21 PM EDT Chart reviewed and call placed for monthly outreach. Pt had recent consult with Dr. Herrmann on 08/29.Plans is for peritoneal dialysis catheter to be placed. Surgery is scheduled for 09/11. Spouse reports pt has been doing well overall. He has been quite busy with various appointments. Noted he has been watching what he is eating and being more mindful. She states pt no longer is taking his doxazosin, and BP's have been running great. She reports he took himself off of this and will continue to monitor BP's. Reports fluid retention seemed to improve now that he is no longer taking. Spouse questions what would happen if there is a power outage when pt has dialysis treatment at home. Unsure if there is battery back-up. Encouraged her to discuss this with nephrology, which she plans to do. Spouse also indicates that she was not able to attend recent appt pt had with Dr. Andrade. Pt mentionedthere was type of discussion about pt needing a stair lift in the future, but she is not sure. She would like to know if this was discussed. Nothing noted in ov notes regarding this. * Nadiya Molina RN - 09/01/2024 3:21 PM EDT Updated medication list, removed Doxazosin * MADELYN Guadarrama - 09/01/2024 3:21 PM EDT Spoke with spouse, who states she was able to discuss her questions regarding dialysis with specialist yesterday. It was explained to her what the protocol would be in the event of a power outage. She is relieved to know this process. MADELYN also explained Dr. Andrade does not recall a conversation regarding stair or chair lift. She verbalized understanding. No new concerns noted today. documented in this encounter Plan of Treatment Upcoming Encounters Date Type Department Care Team (Late st Contact Info) Description 09/23/2024 11:15 AM EDT Office Visit [facility] [address] [address] Nirmal Herrmann MD 703 [facility] [address] [place] [address] documented as of this encounter Visit Diagnoses Diagnosis Stage 5 chronic kidney disease not on chronic dialysis (CMS/[facility])- Primary Restrictive lung disease Other diseases of lung, not elsewhere classified documented in this encounter Additional Health Concerns Assessment Noted Time PHQ-9 Depression Total Score: 2 07/30/19 25 10:00 AM EDT documented as of this encounter Care Teams Glass Ribbon Machine Operator Relationship Specialty Start Date End Date Ruben Andrade MD [address] [place] [id number] PCP - ACO Reach 08/30/22 Ruben Andrade MD [address] [place] [address] [address] [place] [address] PCP - General Family Medicine 08/19/24 Kimberly Bernal Jr., MD [address] [place] [address] Referring Physician Orthopaedic Surgery 05/16/23 Oma Sams MD [address] [place] [address] Referring Physician Nephrology 05/16/23 Rajesh Veronica MD [address] [place] [phone] Referring Physician Family Medicine 05/16/23 Josie Bianchi LSW Editorial Cartoonist Family Medicine 09/06/23 documented as of this encounter
--- OUTSIDE RECORDS SUMMARY | 2024-09-08 11:48 | XMS_ITS | Encounter Summary ---
Author Organization [facility] Address [address] [place] [address] Care Team Providers Care Cleat Layer Name Role Phone Ruben Andrade MD Unavailable [phone] Gabe Pena MD, [facility] Unavailable [phone] Poppy Sams Unavailable Rajesh Veronica MD Unavailable [phone] Josie Bianchi [facility] Unavailable [phone] Ruben Andrade MD Primary Care Provider + [phone] Encounter Details Date Type Department Care Team (Latest Contact Info) Description 08/28/2024 Travel Social History Tobacco Use Types Packs/Day [...] relatives? Three times a week 09/13/2023 Attends Restorationist Services Not on file 09/12 Do you belong to any clubs o r organizations such as druze groups, unions, fraternal or athletic groups, or [...] EDT Office Visit [facility] [address] [address] Nirmal Herrmann MD [address] [address] documented as of this encounter Visit Diagnoses Not on filedocumented in this encounter Additional Health Concerns Assessment Noted Time PHQ-9 Depression Total Score: 2 07/30/19 25 10:00 AM EDT documented as of this encounter Care Teams Cleat Layer Relationship Specialty Start Date End Date Ruben Andrade MD [address] [address] PCP - ACO Reach 08/30/22 Ruben Andrade MD [address] [address] PCP - General Family Medicine 08/19/24 Kimberly Bernal Jr., MD [facility] [place] [address] Referring Physician Orthopaedic Surgery 05/16/23 Oma Sams MD [facility] [place] [address] Referring Physician Nephrology 05/16/23 Rajesh Veronica MD [address] [place] [phone] Referring Physician Family Medicine 05/16/23 Josie Bianchi LSW Cat Swamper Family Medicine 09/06/23 documented as of this encounter
--- OUTSIDE RECORDS SUMMARY | 2024-09-08 11:48 | XMS_ITS | Encounter Summary ---
Author Organization [facility] Address [address] [place] [address] Care Team Providers Care Generalist Name Role Phone Ruben Andrade MD Primary Care Provider [phone] Ruben Andrade MD Unavailable [phone] [facility]abe Pena MD, [facility] Un[facility] [phone] Poppy Sams Unavailable Rajesh Veronica MD Unavailable [phone] Josie Bianchi [facility] Unavailable [phone] Ruben Andrade MD Primary Care Provider + [phone] Encounter Details Date Type Department Care Team (Late st Contact Info) Description 07/29/2024 Orders Only [facility] [address] [place] [address] Ruben Andrade MD [address] [place], [place] [id number] (Fax) Social History Tobacco Use Types Packs/Day [...] relatives? Three times a week 09/13/2023 Attends Religion Services Not on file 09/12 Do you [...] on file documented as of this encounter Functional Status * Over the past 2 weeks, how often have you been bothered by any of the following problems? Question Answer Date of Assessment Author Little interest or pleasure in doing things Several days 07/29/2024 10:00 AM Yumiko Ch M A Feeling down, depressed, or hopeless Not at all 07/29/2024 10:00 AM Yumiko Ch M A Patient Health Questionnaire -2 Score 1 07/29/2024 10:00 AM Yumiko Ch M A * Question Answer Date of Assessment Author Trouble falling or staying asleep, or sleeping too much Not at all 07/29/2024 10:00 AM Yumiko Ch MA Feeling tired or having semaj le energy Several days 07/29/2024 10:00 AM Yumiok Ch M A Poor appetite or overeating Not at all 07/29/2024 10 :00 AM EDT Yumiko Sr MA Feeling bad about yourself - or that you are a failure or have let yourself or your family down Not at all 07/29/2024 10:00 AM Yumiko Ch M A Trouble concentrating on things, such as reading the newspaper or watching television Not at all 07/29/2024 10:00 AM Yumiko Ch M A Moving or speaking so slowly that other people could have noticed? Or the opposite - being so fidgety or restless that you have been moving around a lot more than usual. Not at all 07/29/2024 10:00 AM Yumiko Ch MA Thoughts that you would be better off or hurting yourself in some way Not at all 07/29/2024 10:00 AM [place] Yumiko Sr MA Patient Health Questionnaire -9 Score 2 07/29/2024 10:00 AM [place] Yumiko Sr M A documented as of this encounter Plan of Treatment Upcoming Encounters Date Type Department Care Team (Late st Contact Info) Description 09/23/2024 11:15 AM EDT Office Visit [facility] [address] [address] Nirmal Herrmann MD [address] [address] documented as of this encounter Procedures Procedure Name Priority Date/Time Associated Diagnosis Comments DIABETIC RETINOPATHY SCREENING - OU - BOTH EYES Routine 02/10/2024 1:21 PM EST documented in this encounter Results * Diabetic Retinopathy Screening - OU - Both Eyes (02/10/2024 1:21 PM EST) Anatomical Region Laterality Modality Head Other Ruben Andrade MD OPHTH PHOTOGRAPHY Final Resu lt documented in this encounter Visit Diagnoses Not on filedocumented in this encounter Additional Health Concerns Assessment Noted Time PHQ-9 Depression Total Score: 2 07/30/19 25 10:00 AM EDT documented as of this encounter Care Teams Generalist Relationship Specialty Start Date End Date Ruben Andrade MD PCP - General Family Medicine 08/28/22 08/18/24 Ruben Andrade MD [address] [place] [address] PCP - ACO Reach 08/30/22 Ruben Andrade MD [address] [place] [address] PCP - General Family Medicine 08/19/24 Kimberly Bernal Jr., MD [address] [facility] [place] [address] Referring Physician Orthopaedic Surgery 05/16/23 Oma Sams MD [address] [facility] [place] [address] Referring Physician Nephrology 05/16/23 Rajesh Veronica MD [address] [place] [phone] Referring Physician Family Medicine 05/16/23 Josie Bianchi LSW Popcorn Machine Operator Family Medicine 09/06/23 documented as of this encounter
--- OUTSIDE RECORDS SUMMARY | 2024-09-08 11:48 | XMS_ITS | Encounter Summary ---
Author Organization [facility] Address [address] [place] [address] Care Team Providers Care Selenium Plant Operator Name Role Phone Ruben Andrade MD Primary Care Provider [phone] Ruben Andrade MD Unavailable [phone] [facility] Un[facility] [phone] Poppy Sams Unavailable Rajesh Veronica MD Unavailable [phone] Josie Bianchi [facility] Unavailable [phone] Ruben Andrade MD Primary Care Provider + [phone] Encounter Details Date Type Department Care Team (Late st Contact Info) Description 05/24/2024 Orders Only [facility] [address] [place] [address] Ruben Andrade MD [address] [place], [place] [address] (Fax) Social History Tobacco Use Types Packs/Day [...] relatives? Three times a week 09/13/2023 Attends Pentecostalism Services Not on file 09/12 Do you belong to any clubs o r organizations such as judaism groups, unions, fraternal or athletic groups, or [...] EDT Office Visit [facility] [address] [phone] Nirmal Herrmann MD [address] [address] documented as of this encounter Visit Diagnoses Not on filedocumented in this encounter Additional Health Concerns Assessment Noted Time PHQ-9 Depression Total Score: 1 07/18/19 24 11:00 AM EDT documented as of this encounter Care Teams Selenium Plant Operator Relationship Specialty Start Date End Date Ruben Andrade MD PCP - General Family Medicine 08/28/22 08/18/24 Ruben Andrade MD [address] [place] [address] (Fax) PCP - ACO Reach 08/30/22 Ruben Andrade MD [address] [place] [address] PCP - General Family Medicine 08/19/24 Kimberly Bernal Jr., MD [address] [place] [address] Referring Physician Orthopaedic Surgery 05/16/23 Oma Sams MD [address] [place] [address] Referring Physician Nephrology 05/16/23 Rajesh Veronica MD [address] [place] [phone] Referring Physician Family Medicine 05/16/23 Josie Bianchi LSW Manufacturing Chief Engineer Family Medicine 09/06/23 documented as of this encounter
[2024-09-08 12:12] LABS: Hematocrit 26.8 % (42.0-54.0); Hemoglobin 9.4 g/dL (14.0-18.0); Mean Corpuscular HGB Conc 35.1 g/dL (29.9-35.2); Mean Corpuscular Hemoglobin 32.2 pg (25.9-34.0); Mean Corpuscular Volume 91.8 fL (80.0-94.0); Mean Platelet Volume 8.3 fL (9.5-13.5); Platelet Count 160 10^3/uL (150-450); Red Blood Count 2.92 10^6/uL (4.70-6.10); Red Cell Distribution Width 13.5 % (11.0-15.0); White Blood Count 7.1 10^3/uL (4.0-11.0)
[2024-09-08 13:32] LABS: Albumin Level 3.5 g/dL (3.4-5.0); Anion Gap 14.6; BUN Creatinine Ratio 22.2; Carbon Dioxide 27.1 mmol/L (21.0-32.0); Chloride 105 mmol/L (98-107); Estimated GFR (African America 18 (>=60 mL/min/1.73m^2); Estimated GFR (Non-African Ame 14 (>=60 mL/min/1.73m^2); Glucose 98 mg/dL (74-106); Magnesium 2.2 mg/dL (1.8-2.4); Phosphorus 3.7 mg/dL (2.6-4.7); Potassium 4.7 mmol/L (3.5-5.1); Sodium 142 mmol/L (136-145)
[2024-09-08 14:10] LABS: Percent Iron Saturation 28.8 %
[2024-09-09 05:07] LABS: HBsAg Screen Negative (Negative); Hep B Core Ab, Tot Negative (Negative); Hepatitis B Surf Ab Quant <3.5 mIU/mL (Immunity>10)
[2024-09-09 12:09] LABS: PTH, Intact 88 pg/mL (15-65)
== END 2024-09-08 11:46 | disposition home or self-care (01) ==
LOC: LAB 11:45
PROVIDERS: PCP Family Medicine; Visit Provider Internal Medicine
DX: N25.81 Secondary hyperparathyroidism of renal origin (principal); N18.6 End stage renal disease; N18.9 Chronic kidney disease, unspecified; D63.1 Anemia in chronic kidney disease
CPT/HCPCS: 36415; 80069; 82306; 82728; 83540; 83550; 83735; 83970; 85027; 86317; 86704; 87340